=== PATIENT | male | born 1985 | race Caucasian/White ===

== ENCOUNTER 2016-04-24 12:02 | Inpatient (IN) | payer OTHER ==
[2016-04-24] VITALS (13 sets, daily range): BP systolic 95–131; BP diastolic 53–68; PULSE 71–97; RESP 19–35; TEMP 98–98.3; O2SAT 88–98
[~2016-04-24] VITALS: Ht 180.3 cm; Wt 186.4 kg
[~2016-04-24 12:02] MED LIST: ADVAI250I INH; ALBU0.086 INH; ALLO300T2 PO; ALPR.5 PO; DUONI INH; ERGO2000 PO; FENO1TAB76 PO; FLON0.053; FURO1TAB93 PO; HYDRA25 PO; IMOD2TAB PO; LEVO.05 PO; LIPI10TA PO; METO50TA PO; MONT10TA2 PO; NYSTT TOP; POLY17S PO; POTA10TA2 PO; PRED20 PO; RIVA20 PO; TIOT18I INH
[2016-04-24] MEDS ORDERED: SODIUM CHLORIDE 0.9% FLUSH 5 ML FLUSH IVF PRN (12:15)
[2016-04-24 12:24] LABS: BLOOD GAS BASE EXCESS 13.9 mmol/L (-2-2); BLOOD GAS HCO3 39 mmol/L (22-26); BLOOD GAS METHEMOGLOBIN 2.1 % (0-2); BLOOD GAS O2 HGB SATURATION 84 % (90-100); BLOOD GAS OXYGEN CONTENT 15.3 Vol % (12.0-20.0); BLOOD GAS PCO2 61 mmHg (38-42); BLOOD GAS PO2 55 mmHG (61-120); BLOOD GAS TOTAL HGB 12.9 G/DL (12.0-16.0); CRITICAL VALUE YES; LITER FLOW 6 L/M; TEMP CORR TO 98.6
[2016-04-24 12:25] LABS: DRAW SITE LT RADIAL; FIO2 50 %; NUMBER OF ARTERIAL PUNCTURES 1; OXYGEN DEVICE MASK; STAT YES; ULNAR PULSE PRESENT
[2016-04-24 12:48] LABS: AUTOMATED NEUTROPHIL # 9.1 TH/MM3 (1.8-7.7); BASOPHIL # 0.1 TH/MM3 (0-0.2); BASOPHIL % 0.8 % (0.0-2.0); EOSINOPHIL # 0.1 TH/MM3 (0-0.4); HEMATOCRIT 40.4 % (39.0-51.0); LYMPH % 16.2 % (9.0-44.0); MEAN CELL VOLUME 76.2 FL (80.0-100.0); MEAN CORPUSCULAR HEMOGLOBIN 23.6 PG (27.0-34.0); MONO % 6.9 % (0.0-8.0); NEUT % 75.1 % (16.0-70.0); PLATELET COUNT 355 TH/MM3 (150-450); RED BLOOD COUNT 5.31 MIL/MM3 (4.50-5.90); RED CELL DISTRIBUTION WIDTH 19.2 % (11.6-17.2); WHITE BLOOD COUNT 12.1 TH/MM3 (4.0-11.0)
[2016-04-24 12:49] LABS: HEMO FLAGS AUTO DIFF
[2016-04-24 12:59] LABS: APTT (PATIENT) 30.3 SEC (22.6-28.8); INTERNATIONAL NORMALIZED RATIO 1.4 RATIO; PROTHROMBIN TIME - PATIENT 14.2 SEC (9.8-11.4)
--- NOTE | 2016-04-24 13:00 | PD ---
HPI Chief Complaint: Respiratory Symptoms Time Seen by Provider: 12:10 Travel History International Travel<30 days: No Contact w/Intl Traveler<30days: No Traveled to known affect area: No History of Present Illness HPI 31yo M with PMH of chronic respiratory failure s/p tracheostomy 4 years ago, h/ o afib/PE on xarelto, CHF (echo 06/12 EF 40-45%), HTN, in [facility] presents to the ED with low saturation at the rehab center. As per [facility], pt was cyanotic and the paper work stated that he was saturating at 82% on RA and improved after trach collar. Pt uses 6 liters normally. When pt was placed on 50% trach collar, he was saturating at 95%. Pt also has been treated for PNA at the rehab center. Denies any fever, chest pain, n/v, abdominal pain, weakness, numbness. PFSH Past Medical History Hx Anticoagulant Therapy: Yes Asthma: No Atrial Fibrillation: Yes Anxiety: Yes Heart Rhythm Problems: Yes (a fib) Cancer: No Cardiovascular Problems: Yes High Cholesterol: Yes Chest Pain: Yes Congestive Heart Failure: Yes COPD: No Diabetes: No Diminished Hearing: No Endocrine: No Genitourinary: No Hypertension: Yes Immune Disorder: No Musculoskeletal: No Neurologic: No Psychiatric: No Reproductive: No Respiratory: Yes Immunizations Current: Yes Sleep Apnea: Yes Tetanus Vaccination: > 5 Years Influenza Vaccination: No ?: Not Past Surgical History Tonsillectomy: Yes Other Surgery: Yes (VOCAL CORDS SURGERY, TRACHEOSTOMY) Social History Alcohol Use: No (PT DENIES) Tobacco Use: No Substance Use: No (PT DENIES) Allergies-Medications (Allergen,Severity, Reaction): Coded Allergies: No Known Allergies (Unverified , 09/16/15) Reported Meds & Prescriptions Reported Meds & Active Scripts Active Xanax (Alprazolam) 0.5 Mg Tab 0.5 Mg PO Q6H PRN Metoprolol Tartrate 50 Mg Tab 50 Mg PO Q12 Advair Diskus 250/50 (Salmeterol Xinafoate/Fluticasone) 14 Puff Inhp 1 Puff INH Q12 Reported Klaus Antifungal (Miconazole Nitrate (Topical)) 2 % Cre 1 Applic TOP BID APPLY TO : ABDOMINAL & BACK FOLDS Levothyroxine 50 mcg (Levothyroxine Sodium) 50 Mcg Tab 50 Mcg PO DAILY Apresoline (Hydralazine HCl) 50 Mg Tab 75 Mg PO Q8HR HOLD IS SPB<105 OR DBP<60 Gnp Melatonin (Melatonin) 3 Mg Tab 6 Mg PO HS Mapap (Acetaminophen) 325 Mg Tab 650 Mg PO Q4H PRN NTE: 3,000 MG WITHIN 24 HRS Deltasone 5 mg Tab (Prednisone) 5 Mg Tab 5 Mg PO DAILY Resp: Albuterol/Ipratropium 2.5 Mg/0.5 Mg (Albuterol/Ipratropium) 1 Amp Nebu 1 Ampule NEB Q4HR NEB PRN Biaxin (Clarithromycin) 500 Mg Tab 500 Mg PO BID Ambien (Zolpidem Tartrate) 5 Mg Tab 5 Mg PO HS PRN Xarelto 20 Mg Tab (Rivaroxaban) 20 Mg Tab 20 Mg PO DAILY @ 1700 Loperamide Hcl (Loperamide HCl) 2 Mg Tab 4 Mg PO Q8 PRN Furosemide 40 Mg Tab 40 Mg PO BID Potassium Chloride Er (Potassium Chloride) 10 Meq Tab 10 Meq PO BID Singulair (Montelukast Sodium) 10 Mg Tab 10 Mg PO DAILY Lipitor 10 Mg Tab (Atorvastatin Calcium) 10 Mg Tab 10 Mg PO DAILY Tricor (Fenofibrate) 48 Mg Tab 48 Mg PO DAILY Allopurinol 300 Mg Tab 300 Mg PO DAILY Review of Systems Except as stated in HPI: all other systems reviewed are Neg Physical Exam Narrative GENERAL: 31yo M morbidly obese, in mild distress. SKIN: Warm and dry. HEAD: Atraumatic. Normocephalic. NECK: Trachea midline. No JVD. CARDIOVASCULAR: Regular rate and rhythm. No murmur appreciated. RESPIRATORY: + accessory muscle use. Clear to auscultation. Breath sounds equal bilaterally. GASTROINTESTINAL: Abdomen soft, non-tender, nondistended. MUSCULOSKELETAL: No obvious deformities. No clubbing. No cyanosis. No edema. NEUROLOGICAL: Awake and alert. No obvious cranial nerve deficits. Motor grossly within normal limits. Normal speech. PSYCHIATRIC: Appropriate mood and affect; insight and judgment normal. Data Data Last Documented VS Vital Signs Date Time Temp Pulse Resp B/P Pulse Ox O2 Delivery O2 Flow Rate FiO2 04/24/16 13:50 74 22 95/65 96 Trach Collar 6 04/24/16 12:28 50 04/24/16 12:10 98.3 Orders Complete Blood Count With Diff (04/24/16 12:10) Basic Metabolic Panel (Bmp) (04/24/16 12:10) Act Partial Throm Time (Ptt) (04/24/16 12:10) Prothrombin Time / Inr (Pt) (04/24/16 12:10) Troponin I (04/24/16 12:10) Blood Culture (04/24/16 12:10) Iv Access Insert/Monitor (04/24/16 12:10) Electrocardiogram (04/24/16 12:10) Ecg Monitoring (04/24/16 12:10) Oximetry (04/24/16 12:10) Oxygen Administration (04/24/16 12:10) Chest, Single Ap (04/24/16 12:10) Sodium Chloride 0.9% Flush (Ns Flush) (04/24/16 12:15) Arterial Blood Gas (Abg) (04/24/16 ) Lactic Acid Sepsis Protocol (04/24/16 13:31) Sodium Chlor 0.9% 1000 Ml Inj (Ns 1000 M (04/24/16 13:45) Sodium Chlor 0.9% 1000 Ml Inj (Ns 1000 M (04/24/16 13:45) Sodium Chlor 0.9% 1000 Ml Inj (Ns 1000 M (04/24/16 13:45) Vancomycin Inj (Vancomycin Inj) (04/24/16 13:45) Piperacil-Tazo 4.5 Gm Premix (Zosyn 4.5 (04/24/16 13:45) B-Type Natriuretic Peptide (04/24/16 14:04) Admit Order (Ed Use Only) (04/24/16 14:19) Labs Laboratory Tests Test 04/24/16 04/24/16 04/24/16 04/24/16 12:11 12:35 12:40 13:50 Blood Gas Puncture Site LT RADIAL Blood Gas Patient Temperature 98.6 Blood Gas HCO3 39 mmol/L Blood Gas Base Excess 13.9 mmol/L Blood Gas Oxygen Saturation 84 % Arterial Blood pH 7.42 Arterial Blood Partial 61 mmHg Pressure CO2 Arterial Blood Partial 55 mmHG Pressure O2 Arterial Blood Oxygen Content 15.3 Vol % Arterial Blood 2.0 % Carboxyhemoglobin Arterial Blood Methemoglobin 2.1 % Blood Gas Hemoglobin 12.9 G/DL Oxygen Delivery Device MASK Blood Gas Liter Flow 6 L/M Blood Gas Inspired Oxygen 50 % White Blood Count 12.1 TH/MM3 Red Blood Count 5.31 MIL/MM3 Hemoglobin 12.5 GM/DL Hematocrit 40.4 % Mean Corpuscular Volume 76.2 FL Mean Corpuscular Hemoglobin 23.6 PG Mean Corpuscular Hemoglobin 31.0 % Concent Red Cell Distribution Width 19.2 % Platelet Count 355 TH/MM3 Mean Platelet Volume 8.0 FL Neutrophils (%) (Auto) 75.1 % Lymphocytes (%) (Auto) 16.2 % Monocytes (%) (Auto) 6.9 % Eosinophils (%) (Auto) 1.0 % Basophils (%) (Auto) 0.8 % Neutrophils # (Auto) 9.1 TH/MM3 Lymphocytes # (Auto) 2.0 TH/MM3 Monocytes # (Auto) 0.8 TH/MM3 Eosinophils # (Auto) 0.1 TH/MM3 Basophils # (Auto) 0.1 TH/MM3 CBC Comment AUTO DIFF Differential Comment AUTO DIFF CONFIRMED Polychromasia 2.1 % Prothrombin Time 14.2 SEC Prothromb Time International 1.4 RATIO Ratio Activated Partial 30.3 SEC Thromboplast Time Sodium Level 135 MEQ/L Potassium Level 4.2 MEQ/L Chloride Level 95 MEQ/L Carbon Dioxide Level 37.4 MEQ/L Anion Gap 3 MEQ/L Blood Urea Nitrogen 21 MG/DL Creatinine 1.00 MG/DL Estimat Glomerular Filtration 87 ML/MIN Rate Random Glucose 86 MG/DL Calcium Level 8.9 MG/DL Total Creatine Kinase 77 U/L Troponin I LESS THAN 0.02 NG/ML B-Type Natriuretic Peptide 419 PG/ML Lactic Acid Level 1.1 mmol/L MDM Medical Decision Making Medical Screen Exam Complete: Yes Emergency Medical Condition: Yes Interpretation(s) Last Impressions Chest X-Ray 04/24/16 1210 Signed Impressions: Service Date/Time: Sunday, April 24, 2016 12:58 - CONCLUSION: Cardiomegaly with mild pulmonary congestion. No evidence of consolidating airspace disease. James Bonner MD Laboratory Tests Test 04/24/16 04/24/16 04/24/16 04/24/16 12:11 12:35 12:40 13:50 Blood Gas Puncture Site LT RADIAL Blood Gas Patient Temperature 98.6 Blood Gas HCO3 39 mmol/L (22-26) Blood Gas Base Excess 13.9 mmol/L (-2-2) Blood Gas Oxygen Saturation 84 % (90-100) Arterial Blood pH 7.42 (7.380-7.420) Arterial Blood Partial 61 mmHg (38-42) Pressure CO2 Arterial Blood Partial 55 mmHG Pressure O2 (61-120) Arterial Blood Oxygen Content 15.3 Vol % (12.0-20.0) Arterial Blood 2.0 % (0-4) Carboxyhemoglobin Arterial Blood Methemoglobin 2.1 % (0-2) Blood Gas Hemoglobin 12.9 G/DL (12.0-16.0) Oxygen Delivery Device MASK Blood Gas Liter Flow 6 L/M Blood Gas Inspired Oxygen 50 % White Blood Count 12.1 TH/MM3 (4.0-11.0) Red Blood Count 5.31 MIL/MM3 (4.50-5.90) Hemoglobin 12.5 GM/DL (13.0-17.0) Hematocrit 40.4 % (39.0-51.0) Mean Corpuscular Volume 76.2 FL (80.0-100.0) Mean Corpuscular Hemoglobin 23.6 PG (27.0-34.0) Mean Corpuscular Hemoglobin 31.0 % Concent (32.0-36.0) Red Cell Distribution Width 19.2 % (11.6-17.2) Platelet Count 355 TH/MM3 (150-450) Mean Platelet Volume 8.0 FL (7.0-11.0) Neutrophils (%) (Auto) 75.1 % (16.0-70.0) Lymphocytes (%) (Auto) 16.2 % (9.0-44.0) Monocytes (%) (Auto) 6.9 % (0.0-8.0) Eosinophils (%) (Auto) 1.0 % (0.0-4.0) Basophils (%) (Auto) 0.8 % (0.0-2.0) Neutrophils # (Auto) 9.1 TH/MM3 (1.8-7.7) Lymphocytes # (Auto) 2.0 TH/MM3 (1.0-4.8) Monocytes # (Auto) 0.8 TH/MM3 (0-0.9) Eosinophils # (Auto) 0.1 TH/MM3 (0-0.4) Basophils # (Auto) 0.1 TH/MM3 (0-0.2) CBC Comment AUTO DIFF Differential Comment AUTO DIFF CONFIRMED Polychromasia 2.1 % (0.0-1.9) Prothrombin Time 14.2 SEC (9.8-11.4) Prothromb Time International 1.4 RATIO Ratio Activated Partial 30.3 SEC Thromboplast Time (22.6-28.8) Sodium Level 135 MEQ/L (136-145) Potassium Level 4.2 MEQ/L (3.5-5.1) Chloride Level 95 MEQ/L (98-107) Carbon Dioxide Level 37.4 MEQ/L (21.0-32.0) Anion Gap 3 MEQ/L (5-15) Blood Urea Nitrogen 21 MG/DL (7-18) Creatinine 1.00 MG/DL (0.60-1.30) Estimat Glomerular Filtration 87 ML/MIN (>89) Rate Random Glucose 86 MG/DL (74-106) Calcium Level 8.9 MG/DL (8.5-10.1) Total Creatine Kinase 77 U/L (39-308) Troponin I LESS THAN 0.02 NG/ML (0.02-0.05) B-Type Natriuretic Peptide 419 PG/ML (0-100) Lactic Acid Level 1.1 mmol/L (0.4-2.0) EKG: NSR 73bpm. Normal axis. STD V2. TWI V2-V6 new from 08/2015 Differential Diagnosis PNA vs. Mucous plug vs. ACS vs. CHF exacerbation Narrative Course 31yo M with multiple medical problems stemming from his morbid obesity from [facility] here with sob and hypoxia. ABG showed PO2 of 55.3 on 50% trach collar and PCO2 of 60.8. Labs reviewed, mild leukocytosis at 12.1. Troponin negative. CXR showed cardiomegaly with mild pulmonary congestion. No evidence of consolidating airspace. Pt was initially tachypneic and had elevated WBC so empirically treated with 1 dose of vancomycin and zosyn. EKG showed nonspecific ischemia that is new compare to prior in 08/2015. Pt reevaluated at bedside and feels better. Pt to be admitted for hypoxic and hypercapnic respiratory failure. Pending Lactic acid 1.1 and BNP 419. Diagnosis Primary Impression: Respiratory failure Qualified Code: J96.01 - Acute respiratory failure with hypoxia Admitting Information Admitting Physician Requests: Admit HarveyAkosua DO Apr 24, 2016 13:00
[2016-04-24] MEDS ORDERED: AMBI5TAB PO (13:02)
[2016-04-24] MEDS ORDERED: BIAX500T PO (13:02)
[2016-04-24 13:04] LABS: ANION GAP 3 MEQ/L (5-15); BICARBONATE 37.4 MEQ/L (21.0-32.0); BLOOD UREA NITROGEN 21 MG/DL (7-18); CHLORIDE 95 MEQ/L (98-107); GLOMERULAR FILTRATION RATE 87 ML/MIN (>89); POTASSIUM 4.2 MEQ/L (3.5-5.1); SODIUM (NA) 135 MEQ/L (136-145)
[2016-04-24] MEDS ORDERED: PRED5 PO (13:10)
[2016-04-24] MEDS ORDERED: MAPA325T6 PO (13:10)
[2016-04-24] MEDS ORDERED: DUONI NEB (13:10)
[2016-04-24] MEDS ORDERED: GNP3TAB PO (13:15)
[2016-04-24] MEDS ORDERED: HYDR50TA15 PO (13:15)
[2016-04-24] MEDS ORDERED: LEVO50TA4 PO (13:20)
[2016-04-24 13:26] LABS: POLYCHROMASIA 2.1 % (0.0-1.9); SCAN/DIFF AUTO DIFF CONFIRMED
[2016-04-24] MEDS ORDERED: [UNRECOGNIZED DRUG - CODE] TOP (13:26)
--- NOTE | 2016-04-24 13:31 | RADRPT ---
EXAM DATE/TIME: 04/24/2016 12:58 [facility] COMPARISON: CHEST SINGLE AP, September 25, 2015, 3:11. INDICATIONS : Short of breath. MEDICAL HISTORY : 3 blood clots SURGICAL HISTORY : tracheostomy ENCOUNTER: Initial ACUITY: 1 day PAIN SCORE: 0/10 LOCATION: Bilateral chest FINDINGS: The heart is markedly enlarged. There is generalized interstitial vascular congestion. There is no ev idence of consolidating airspace disease. Tracheostomy tube is in place. CONCLUSION: Cardiomegaly with mild pulmonary congestion. No evidence of consolidating airspace disease. James Bonner MD on April 24, 2016 at 13:28 Board Certified Radiologist. This report was verified electronically.
[2016-04-24] MEDS ORDERED: PIPERACIL-TAZO 4.5 GM PREMIX 100 ML IV ONE (13:45)
[2016-04-24] MEDS ORDERED: VANCOMYCIN INJ 1,500 MG in SODIUM CHLORID 0.9% 500 ML INJ 500 ML IV ONE (13:45)
[2016-04-24] MEDS ORDERED: SODIUM CHLOR 0.9% 1000 ML INJ 1,000 ML IV ONE ×3 (13:45)
--- NOTE | 2016-04-24 14:34 | HHI.HP ---
HPI Service Family Medicine Primary Care Physician Unknown Admission Diagnosis Acute respiratory failure Diagnoses: Chief Complaint: Difficulty breathing International Travel<30 Days: No Contact w/Intl Traveler<30days: No Known Affected Area: No History of Present Illness Wilfrido Fortune is a 31 year old male with a PMH of chronic respiratory failure s/ p tracheostomy 4 years ago, morbid obesity with BMI 67.6, atrial fibrillation and pulmonary embolism on Xarelto, CHF last ECHO 09/18/2015 showing a grossly normal systolic function with no definitive EF as it was difficult to assess, ECHO on 05/2014 with EF of 40-45% with mildly dilated left atrium, and h/o HTN. He is in long-term rehab at [facility] and presents to the ED after having low oxygen saturation at the rehab center. Per EVAC report, the patient went to the nurses station stating he wanted to be sent to the hospital and stated "I feel weird." At that time he was noted to be pale, O2 sat at 82% on RA. He was placed back on 6L of oxygen via his trach mask and given a breathing treatment and his O2 sats improved to 95% however would not stay at an appropriate level. Patient was then sent to [facility] for further evaluation. Patient states he uses 6L of oxygen via trach normally. Patient has also been treated for pneumonia at the rehab center. He denies any fevers, chest pain, cough, abdominal pain, or N/V. He denies syncopal episodes and states he remembers all events that occurred today. (Brandon Canales MD R1) Review of Systems Constitutional: COMPLAINS OF: Chills, Change in appetite, DENIES: Fever Respiratory: COMPLAINS OF: Shortness of breath, DENIES: Cough Cardiovascular: DENIES: Chest pain, Palpitations Gastrointestinal: COMPLAINS OF: Nausea, DENIES: Constipation, Diarrhea, Vomiting Genitourinary: DENIES: Hematuria, Dysuria (Brandon Canales MD R1) Past Family Social History Past Medical History Chronic Respiratory Failure s/p Tracheostomy 4 years ago Morbid Obesity w/ BMI 67.6 Atrial fibrillation Pulmonary embolism 4 years ago Anxiety CHF (Echo 06/07/2014 w/ EF 40-45%; ECHO 08/2015 showing a grossly normal systolic function) HTN Hypothyroidism Past Surgical History Tonsillectomy Tracheostomy Reported Medications Reported Meds & Active Scripts Active Xanax (Alprazolam) 0.5 Mg Tab 0.5 Mg PO Q6H PRN Metoprolol Tartrate 50 Mg Tab 50 Mg PO Q12 Advair Diskus 250/50 (Salmeterol Xinafoate/Fluticasone) 14 Puff Inhp 1 Puff INH Q12 Reported Klaus Antifungal (Miconazole Nitrate (Topical)) 2 % Cre 1 Applic TOP BID APPLY TO : ABDOMINAL & BACK FOLDS Levothyroxine 50 mcg (Levothyroxine Sodium) 50 Mcg Tab 50 Mcg PO DAILY Apresoline (Hydralazine HCl) 50 Mg Tab 75 Mg PO Q8HR HOLD IS SPB<105 OR DBP<60 Gnp Melatonin (Melatonin) 3 Mg Tab 6 Mg PO HS Mapap (Acetaminophen) 325 Mg Tab 650 Mg PO Q4H PRN NTE: 3,000 MG WITHIN 24 HRS Deltasone 5 mg Tab (Prednisone) 5 Mg Tab 5 Mg PO DAILY Resp: Albuterol/Ipratropium 2.5 Mg/0.5 Mg (Albuterol/Ipratropium) 1 Amp Nebu 1 Ampule NEB Q4HR NEB PRN Biaxin (Clarithromycin) 500 Mg Tab 500 Mg PO BID Ambien (Zolpidem Tartrate) 5 Mg Tab 5 Mg PO HS PRN Xarelto 20 Mg Tab (Rivaroxaban) 20 Mg Tab 20 Mg PO DAILY @ 1700 Loperamide Hcl (Loperamide HCl) 2 Mg Tab 4 Mg PO Q8 PRN Furosemide 40 Mg Tab 40 Mg PO BID Potassium Chloride Er (Potassium Chloride) 10 Meq Tab 10 Meq PO BID Singulair (Montelukast Sodium) 10 Mg Tab 10 Mg PO DAILY Lipitor 10 Mg Tab (Atorvastatin Calcium) 10 Mg Tab 10 Mg PO DAILY Tricor (Fenofibrate) 48 Mg Tab 48 Mg PO DAILY Allopurinol 300 Mg Tab 300 Mg PO DAILY (Brandon Canales MD R1) Allergies: Coded Allergies: No Known Allergies (Unverified , 09/16/15) Family History No FM of DM or CAD Social History Denies smoking, etoh intake, or use of illicit drugs Patient has lived in an [facility] for the past 4 years Mother lives in [facility] (Brandon Canales MD R1) Physical Exam Vital Signs Vital Signs Date Time Temp Pulse Resp B/P Pulse Ox O2 Delivery O2 Flow Rate FiO2 1026/16 13:50 74 22 95/65 96 Trach Collar 6 04/24/16 12:50 72 28 104/64 95 Trach Collar 6 04/24/16 12:40 72 30 98 Trach Collar 6 04/24/16 12:28 95 Trach Collar 6.00 50 04/24/16 12:14 95 Trach Collar 6 04/24/16 12:10 98.3 77 30 131/60 93 Trach Collar 6 04/24/16 12:06 72 19 131/60 95 Physical Exam GENERAL: Lying in bed in some distress appears secondary to difficulty breathing NEURO: AOx3. Patient cannot finish sentences without getting short of breath. psychologist grossly intact. SKIN: Warm and dry. HEAD: Normocephalic. Atraumatic. EYES: PERRL. EOMI. No scleral icterus. No injection or drainage. ENT: No nasal drainage. NECK: Supple, trachea midline. No JVD. CARDIOVASCULAR: Regular rate and rhythm without murmurs, gallops, or rubs. Peripheral pulses 2+. Capillary refill < 2 seconds. RESPIRATORY: Breath sounds clear to auscultation and equal bilaterally, without wheezes, rales, or rhonchi. Increased work of breathing. GASTROINTESTINAL: Abdomen soft, non-tender, obese, normal BS. Unable to assess for organomegaly or masses. MUSCULOSKELETAL: No edema, cyanosis, or clubbing Laboratory Laboratory Tests Test 04/24/16 04/24/16 12:11 12:35 Blood Gas Puncture Site LT RADIAL Blood Gas Patient Temperature 98.6 Blood Gas HCO3 39 Blood Gas Base Excess 13.9 Blood Gas Oxygen Saturation 84 Arterial Blood pH 7.42 Arterial Blood Partial 61 Pressure CO2 Arterial Blood Partial 55 Pressure O2 Arterial Blood Oxygen Content 15.3 Arterial Blood 2.0 Carboxyhemoglobin Arterial Blood Methemoglobin 2.1 Blood Gas Hemoglobin 12.9 Oxygen Delivery Device MASK Blood Gas Liter Flow 6 Blood Gas Inspired Oxygen 50 White Blood Count 12.1 Red Blood Count 5.31 Hemoglobin 12.5 Hematocrit 40.4 Mean Corpuscular Volume 76.2 Mean Corpuscular Hemoglobin 23.6 Mean Corpuscular Hemoglobin 31.0 Concent Red Cell Distribution Width 19.2 Platelet Count 355 Mean Platelet Volume 8.0 Neutrophils (%) (Auto) 75.1 Lymphocytes (%) (Auto) 16.2 Monocytes (%) (Auto) 6.9 Eosinophils (%) (Auto) 1.0 Basophils (%) (Auto) 0.8 Neutrophils # (Auto) 9.1 Lymphocytes # (Auto) 2.0 Monocytes # (Auto) 0.8 Eosinophils # (Auto) 0.1 Basophils # (Auto) 0.1 CBC Comment AUTO DIFF Differential Comment AUTO DIFF CONFIRMED Polychromasia 2.1 Prothrombin Time 14.2 Prothromb Time International 1.4 Ratio Activated Partial 30.3 Thromboplast Time Sodium Level 135 Potassium Level 4.2 Chloride Level 95 Carbon Dioxide Level 37.4 Anion Gap 3 Blood Urea Nitrogen 21 Creatinine 1.00 Estimat Glomerular Filtration 87 Rate Random Glucose 86 Calcium Level 8.9 Troponin I LESS THAN 0.02 Date/Time Procedure Status Source Growth 04/24/16 12:35 Aerobic Blood Culture Received Blood Peripheral Pending 04/24/16 12:35 Anaerobic Blood Culture Received Blood Peripheral Pending (Brandon Canales MD R1) Result Diagram: 04/24/16 1235 04/24/16 1235 Assessment and Plan Assessment and Plan 31 year old male with a PMH of chronic respiratory failure s/p tracheostomy 4 years ago, morbid obesity with BMI 67.6, atrial fibrillation and pulmonary embolism on Xarelto, CHF, and h/o HTN in long-term rehab at [facility] presents to the ED after having low oxygen saturation at 82% on RA. He was placed back on 6L of oxygen via his trach mask and sent to [facility] for further evaluation. He will be admitted for suspected HCAP as well as T -wave inversions noted on EKG. Code Status Full code Discussed Condition With sdw Dr. Ko and Rosie Parr, MS4 wdw Dr. Garcia (Brandon Canales MD R1) Attending Attestation The patient has been seen and examined. The chart and all resident notes have been reviewed. I agree that inpatient care is appropriate and that a two midnight stay is expected for the reasons documented in the resident history and physical. I have discussed this with the resident and certify the resident s order for inpatient admission. (Bernice Garcia MD) Problem List: (1) HCAP (healthcare-associated pneumonia) Status: Acute Plan: Afebrile in ED Pulse wnls Visibly tachypneic, labored breathing despite 6L O2 via trach Leukocytosis of 12,100; patients baseline ~9,000 Lactic acid nml 1.1 Initial ABG showing mixed picture of respiratory acidosis and metabolic alkalosis CXR showing markedly enlarged heart, generalized interstitial vascular congestion, and no evidence of a consolidating airspace disease - Received Vanc 1.5gm IV and Zosyn 4.5gm IV in ED - Will continue with Vancomycin 2gm IV q12h and Zosyn 4.5gm IV q6h - Add Levaquin 750mg IV q24h - Repeat ABG - Sputum culture - Continue 6L O2 via trach - BiPaP if needed - Continue home symbicort and singulair (2) T wave inversion in EKG Status: Acute Plan: T-wave inversions seen in leads V2-V6 Prior EKG from a previous admission only with evidence of T-wave inversion in lead V2 Initial troponin <0.02 ACS r/o with serial EKGs, troponins, CK-MBs (3) CHF (congestive heart failure) Status: Chronic Plan: Last ECHO 09/18/2015 showing a grossly normal systolic function with no definitive EF as it was difficult to assess, ECHO on 05/2014 with EF of 40-45% with mildly dilated left atrium Will obtain ECHO while inpatient BNP on admission 419 Received Lasix 20 mg po in ED Will give an additional Lasix 20 mg po once Lasix 40mg po bid starting tomorrow AM KCl 10 mEq po bid (4) Atrial fibrillation Status: Chronic Plan: EKG in sinus rhythm RRR on exam Continue Xarelto 20 mg po daily (5) Tracheostomy present Status: Chronic Plan: Will consult pulmonology if needing additional care (6) HTN (hypertension) Status: Chronic Plan: 131/60 on admission, trended down to 95/65 Hold home BP medications Vitals q4h (7) Anemia Status: Acute Plan: Hgb 12.5 on admission Continue to monitor (8) Morbid obesity with BMI of 60.0-69.9, adult Status: Chronic Plan: Likely contributing to chronic respiratory issues (9) Hypothyroidism Status: Chronic Plan: Continue home Synthroid (10) Nutrition, metabolism, and development symptoms Status: Acute Plan: Fluids: none Electrolytes: Na 135, Cl 95, will monitor Nutrition: Heart healthy diet DVT PPx: patient is on xarelto 20 mg po daily sdw Dr. Ko and Rosie Parr, MS4 dw Dr. Garcia (Brandon Canales MD R1) Physician Certification 2 Midnight Certification Type: Admission for Inpatient Services Order for Inpatient Services The services are ordered in accordance with Medicare regulations or non- Medicare payer requirements, as applicable. In the case of services not specified as inpatient-only, they are appropriately provided as inpatient services in accordance with the 2-midnight benchmark. Estimated LOS (days): 2 days is the estimated time the patient will need to remain in the hospital, assuming treatment plan goals are met and no additional complications. Post-Hospital Plan: Fpc/SLIEM (SLIME) (Brandon Canales MD R1) Problem Qualifiers (1) CHF (congestive heart failure): Qualified Code: I50.9 - Acute on chronic congestive heart failure, unspecified congestive heart failure type (2) Atrial fibrillation: Qualified Code: I48.2 - Chronic atrial fibrillation (3) HTN (hypertension): Qualified Code: I10 - Essential hypertension (4) Anemia: Qualified Code: D64.9 - Anemia, unspecified type (5) Hypothyroidism: Qualified Code: E03.9 - Hypothyroidism, unspecified type Brandon Canales MD R1 Apr 24, 2016 14:34 Bernice Garcia MD Apr 26, 2016 12:00
[2016-04-24] MEDS ORDERED: ONDANSETRON HCL 4 MG/2 ML VIAL ONE (15:07)
[2016-04-24] MEDS ORDERED: ZOLPIDEM TARTRATE 5 MG TAB PO PRN (15:15)
[2016-04-24] MEDS ORDERED: NALOXONE HCL 0.4 MG/ML AMP IV PRN (15:15)
[2016-04-24] MEDS ORDERED: FUROSEMIDE 20 MG TAB PO ONE (15:30)
[2016-04-24] MEDS ORDERED: Vancomycin Consult Pharmacy 1 EA OTHER SCH (15:30)
[2016-04-24] MEDS ORDERED: ONDANSETRON HCL 4 MG/2 ML VIAL IV PUSH ONE (15:30)
[2016-04-24] MEDS: PIPERACIL-TAZO 4.5 GM PREMIX 100 ML IV SCH ×2 (16:29→22:44)
[2016-04-24 17:02] LABS: BLOOD GAS BASE EXCESS 9.5 mmol/L (-2-2); BLOOD GAS CARBOXYHEMOGLOBIN 1.6 % (0-4); BLOOD GAS HCO3 37 mmol/L (22-26); BLOOD GAS METHEMOGLOBIN 2.3 % (0-2); BLOOD GAS O2 HGB SATURATION 86 % (90-100); BLOOD GAS OXYGEN CONTENT 15.2 Vol % (12.0-20.0); BLOOD GAS PCO2 85 mmHg (38-42); BLOOD GAS PO2 70 mmHG (61-120); BLOOD GAS TOTAL HGB 12.6 G/DL (12.0-16.0); CRITICAL VALUE YES; DRAW SITE RT RADIAL; FIO2 50 %; LITER FLOW 6 L/M; OXYGEN DEVICE MASK; TEMP CORR TO 98.6
[2016-04-24 17:03] LABS: NUMBER OF ARTERIAL PUNCTURES 1; STAT NO; ULNAR PULSE PRESENT
--- NOTE | 2016-04-24 17:18 | HHI.FPPN ---
Subjective Subjective Patient seen and examined. Case reviewed and discussed Please refer to resident H&P for further details regarding HPI, ROS, PMH, SurgHx , FH and SocHx ROS reviewed and neg x 10 except as stated in HPI. In summary, patient is a 31yoM with a history of chronic respiratory failure s/ p tracheostomy presenting with hypoxia from his nursing facility. He is seen in the ED, with supplemental oxygen, sats improved. He denies chest pain, reports worsening productive cough and failed outpatient antibiotics which he was started on Friday at the nursing facility. [facility] Objective Objective Last Impressions Chest X-Ray 04/24/16 1210 Signed Impressions: Service Date/Time: Sunday, April 24, 2016 12:58 - CONCLUSION: Cardiomegaly with mild pulmonary congestion. No evidence of consolidating airspace disease. James Bonner MD Laboratory Tests - Abnormals Test 04/24/16 04/24/16 04/24/16 04/24/16 12:11 12:35 12:40 16:52 Blood Gas HCO3 39 mmol/L 37 mmol/L Blood Gas Base Excess 13.9 mmol/L 9.5 mmol/L Blood Gas Oxygen Saturation 84 % 86 % Arterial Blood Partial 61 mmHg 85 mmHg Pressure CO2 Arterial Blood Partial 55 mmHG Pressure O2 Arterial Blood Methemoglobin 2.1 % 2.3 % White Blood Count 12.1 TH/MM3 Hemoglobin 12.5 GM/DL Mean Corpuscular Volume 76.2 FL Mean Corpuscular Hemoglobin 23.6 PG Mean Corpuscular Hemoglobin 31.0 % Concent Red Cell Distribution Width 19.2 % Neutrophils (%) (Auto) 75.1 % Neutrophils # (Auto) 9.1 TH/MM3 Polychromasia 2.1 % Prothrombin Time 14.2 SEC Activated Partial 30.3 SEC Thromboplast Time Sodium Level 135 MEQ/L Chloride Level 95 MEQ/L Carbon Dioxide Level 37.4 MEQ/L Anion Gap 3 MEQ/L Blood Urea Nitrogen 21 MG/DL Estimat Glomerular Filtration 87 ML/MIN Rate Troponin I LESS THAN 0.02 NG/ML B-Type Natriuretic Peptide 419 PG/ML Arterial Blood pH 7.26 Vital Signs 04/24/16 04/24/16 04/24/16 04/24/16 12:06 12:10 12:14 12:28 Temp 98.3 Pulse 72 77 Resp 19 30 B/P 131/60 131/60 Pulse Ox 95 93 95 95 O2 Delivery Trach Collar Trach Collar Trach Collar O2 Flow Rate 6 6 6.00 FiO2 50 04/24/16 04/24/16 04/24/16 04/24/16 12:40 12:50 13:50 15:00 Pulse 72 72 74 71 Resp 30 28 22 22 B/P 104/64 95/65 108/53 Pulse Ox 98 95 96 98 O2 Delivery Trach Collar Trach Collar Trach Collar Trach Collar O2 Flow Rate 6 6 6 6 Physical exam GENERAL: Obese male resting in bed, on supplemental oxygen, NAD SKIN: Warm and dry. No rashes, mild chronic changes LE b/l HEAD: Normocephalic. AT EYES: No scleral icterus. No injection or drainage. ENT: OP clear. MM slightly dry. NECK: Supple, trachea midline. No JVD or lymphadenopathy. Tracheostomy midline. CARDIOVASCULAR: Regular rate and rhythm without audible murmurs, gallops, or rubs. Distant heart sounds. RESPIRATORY: Breath sounds equal bilaterally with scattered crackles, worse on the R. No accessory muscle use. GASTROINTESTINAL: Abdomen soft, non-tender, nondistended. Obese, normal active BS. MUSCULOSKELETAL: No cyanosis, or edema. Chronic changes as noted above. BACK: Nontender without obvious deformity. No CVA tenderness. NEURO Awake and alert. Normal speech, though slow to answer. MAEW. CN grossly intact. Assessment Assessment 31yoM admitted with: Acute on chronic respiratory failure Sepsis due to HCAP Hypoxia Leukocytosis Hx afib anticoagulated on Xarelto Chronic Respiratory Failure s/p Tracheostomy 4 years ago Morbid Obesity w/ BMI 67.6 Hx PE Anxiety CHF (Echo 06/07/2014 w/ EF 40-45%; ECHO 08/2015 showing a grossly normal systolic function) HTN Hypothyroidism PLAN PLAN Empiric antibiotic therapy for HCAP Breathing treatments Pulmonology consultation Blood cultures Sputum culture Supplemental oxygen as needed UA Repeat ekg, trend trop Lactic acid protocol Check legionella, flu, pneumococcal antigen Steroids Continue Xarelto PPI while on steroids Resume home meds as appropriate Patient seen and examined. Case reviewed and discussed Agree with plan of care as discussed with me and documented in the resident note. Bernice Garcia MD Apr 24, 2016 17:18
[2016-04-24] MEDS: LEVOFLOXACIN 750 MG PREMIX INJ 150 ML IV SCH (19:40)
[2016-04-24 20:16] LABS: BLOOD, URINE NEG (NEG); COMMENT (UR) CULT NOT INDICATED; CULTURE IF INDICATED CULT NOT INDICATED; GLUCOSE,URINE NEG (NEG); KETONE, URINE NEG (NEG); MUCUS URINE FEW /lpf (OCC); NITRITE,URINE NEG (NEG); PH, URINE 5.5 (5.0-8.5); SQUAMOUS EPITHELIAL CELL URINE <1 /hpf (0-5); URINE COLOR YELLOW (YELLW/STRAW)
[2016-04-24] MEDS ORDERED: CHLORHEXIDINE GLUCONATE 2 % 1 PACK (2 CLOTHS)(extra cloths) TOP PRN (20:30)
[2016-04-24 20:50] LABS: CREATINE KINASE 77 U/L (39-308)
[2016-04-24] MEDS ORDERED: MELATONIN 6 MG PO SCH (21:00)
[2016-04-24] MEDS: SODIUM CHLORIDE 0.9% FLUSH 5 ML FLUSH FLUSH SCH (21:00)
[2016-04-24] MEDS: FUROSEMIDE 40 MG TAB PO SCH (21:00)
[2016-04-24] MEDS ORDERED: POTASSIUM CHLORIDE 10 MEQ CONTROLLED RELEASE TAB PO SCH (21:00)
[2016-04-24] MEDS ORDERED: methylPREDNISolone SOD SUCC 40 MG/1 ML VIAL IV PUSH SCH (22:15)
[2016-04-24] MEDS: FUROSEMIDE 20 MG/2 ML VIAL IV PUSH SCH (22:15)
[2016-04-24 22:22] LABS: BLOOD GAS HCO3 37 mmol/L (22-26); BLOOD GAS METHEMOGLOBIN 1.1 % (0-2); BLOOD GAS O2 HGB SATURATION 92 % (90-100); BLOOD GAS OXYGEN CONTENT 17.1 Vol % (12.0-20.0); BLOOD GAS PCO2 108 mmHg (38-42); BLOOD GAS PO2 96 mmHg (61-120); BLOOD GAS TOTAL HGB 13.2 G/DL (12.0-16.0); CRITICAL VALUE YES; FIO2 100 %; OXYGEN DEVICE BIPAP; TEMP CORR TO 98.6; VENT SETTINGS IPAP18/EPAP8
[2016-04-24 22:23] LABS: DRAW SITE LT RADIAL; NUMBER OF ARTERIAL PUNCTURES 2; STAT NO; ULNAR PULSE PRESENT
--- NOTE | 2016-04-24 22:39 | PD.CONS ---
[facility] Service Critical Care Medicine Consult Requested By Dr. Garcia Reason for Consult Acute hypoxemic and hypercarbic respiratory failure Healthcare associated pneumonia Primary Care Physician Unknown History of Present Illness Wilfrido Fortune is a 31 year old male with past medical history of chronic respiratory failure s/p tracheostomy 4 years ago, super morbid obesity (BMI 68) , atrial fibrillation and pulmonary embolism on Xarelto, COPD, CHF and h/o HTN. Patient presented from [facility] with low oxygen saturation apparently his oxygen saturation was 82% on RA. He was placed back on 6L of oxygen via his trach mask and given a breathing treatment, initially improved however he started drifting back to low 80s again. Apparently patient had been getting treatment for pneumonia at the rehabilitation facility. In the ER chest x-ray showed bibasilar infiltrates and pulmonary edema. Patient was admitted to the [facility] service and was started on IV steroids IV vancomycin and Zosyn and Levaquin for healthcare associated pneumonia. ABG after admission was pH of 7.42 PCO2 of 61 and PO2 55. Repeat ABG at 5 PM showed pH of 7.26 PCO2 of 85 and PO2 of 70 and patient was started on BiPAP by the [facility]. ABG at 10:15 showed worsening CO2 retention with pH 7.16 PCO2 108 and PO2 of 98. At that time critical care medicine was consulted After receiving the consult, I immediately ordered placement on for full mechanical ventilatory support and starting sedation for ventilator synchrony. I evaluated the patient in ICU. After starting ACV, patient is more awake but there is a significant amount of air leak around his tracheostomy. Patient has a Shiley 6.0 Proximal XLT, but the pilot highway patrol balloon has been cut off. I have changed the mechanical ventilation settings from ACV to pressure control with inspiratory pressure of 25, which improved to tidal volume he is receiving. I have consulted general surgery for trach exchange in a.m. I have also increased the Solu-Medrol to 60 mg IV every 6 hours after 125 mg bolus. Additional 2 mg IV Bumex had been ordered. Scheduled and when necessary breathing treatment ordered Review of Systems ROS Limitations: Intubated, Altered Mental Status Past Family Social History Allergies: Coded Allergies: No Known Allergies (Unverified , 09/16/15) Past Medical History Chronic Respiratory Failure s/p Tracheostomy 4 years ago COPD/obesity hypoventilation syndrome Morbid Obesity BMI 67 History of pulmonary embolism 4 years ago Chronic atrial fibrillation Anxiety CHF (Echo 2013 EF 40-45%; ECHO 08/2015 showing a grossly normal systolic function) Hypertension Hypothyroidism Past Surgical History Tonsillectomy Tracheostomy Reported Medications Xanax (Alprazolam) 0.5 Mg Tab 0.5 Mg PO Q6H PRN Metoprolol Tartrate 50 Mg Tab 50 Mg PO Q12 Advair Diskus 250/50 (Salmeterol Xinafoate/Fluticasone) 14 Puff Inhp 1 Puff INH Q12 Klaus Antifungal (Miconazole Nitrate (Topical)) 2 % Cre 1 Applic TOP BID Levothyroxine 50 mcg (Levothyroxine Sodium) 50 Mcg Tab 50 Mcg PO DAILY Apresoline (Hydralazine HCl) 50 Mg Tab 75 Mg PO Q8HR Gnp Melatonin (Melatonin) 3 Mg Tab 6 Mg PO HS Mapap (Acetaminophen) 325 Mg Tab 650 Mg PO Q4H PRN Deltasone 5 mg Tab (Prednisone) 5 Mg Tab 5 Mg PO DAILY Resp: Albuterol/Ipratropium 2.5 Mg/0.5 Mg (Albuterol/Ipratropium) 1 Amp Nebu 1 Ampule NEB Q4HR NEB PRN Biaxin (Clarithromycin) 500 Mg Tab 500 Mg PO BID Ambien (Zolpidem Tartrate) 5 Mg Tab 5 Mg PO HS PRN Xarelto 20 Mg Tab (Rivaroxaban) 20 Mg Tab 20 Mg PO DAILY @ 1700 Loperamide Hcl (Loperamide HCl) 2 Mg Tab 4 Mg PO Q8 PRN Furosemide 40 Mg Tab 40 Mg PO BID Potassium Chloride Er (Potassium Chloride) 10 Meq Tab 10 Meq PO BID Singulair (Montelukast Sodium) 10 Mg Tab 10 Mg PO DAILY Lipitor 10 Mg Tab (Atorvastatin Calcium) 10 Mg Tab 10 Mg PO DAILY Tricor (Fenofibrate) 48 Mg Tab 48 Mg PO DAILY Allopurinol 300 Mg Tab 300 Mg PO DAILY Active Ordered Medications Reviewed Family History Noncontributory Social History No alcohol tobacco or illicit drugs, lives in [facility] since last 4 yrs Physical Exam Vital Signs Vital Signs Date Time Temp Pulse Resp B/P Pulse Ox O2 Delivery O2 Flow Rate FiO2 04/24/16 19:29 97 30 105/59 90 BiPAP 70 04/24/16 17:57 91 28 109/68 95 BiPAP 04/24/16 17:30 92 60 04/24/16 15:00 71 22 108/53 98 Trach Collar 6 04/24/16 13:50 74 22 95/65 96 Trach Collar 6 04/24/16 12:50 72 28 104/64 95 Trach Collar 6 04/24/16 12:40 72 30 98 Trach Collar 6 04/24/16 12:28 95 Trach Collar 6.00 50 04/24/16 12:14 95 Trach Collar 6 04/24/16 12:10 98.3 77 30 131/60 93 Trach Collar 6 04/24/16 12:06 72 19 131/60 95 Physical Exam GENERAL: Lying in bed in some distress appears secondary to difficulty breathin SKIN: Warm and dry. HEAD: Normocephalic. Atraumatic. EYES: PERRL. No scleral icterus. No injection or drainage. ENT: No nasal drainage. NECK: Shiley 6.0 Proximal XLT, but the pilot highway patrol balloon has been cut off. Significant air leak and in fact patient is able to speak while vented CARDIOVASCULAR: Regular rate and rhythm without murmurs, gallops, or rubs. RESPIRATORY: Breath sounds clear to auscultation and equal bilaterally, bilateral expiratory wheezing heard GASTROINTESTINAL: Abdomen soft, non-tender, obese, normal BS. NEURO: AOx3. Follows commands all 4 extremities Laboratory Laboratory Tests Test 04/24/16 04/24/16 04/24/16 04/24/16 12:11 12:35 12:40 13:50 Blood Gas Puncture Site LT RADIAL Blood Gas Patient Temperature 98.6 Blood Gas HCO3 39 Blood Gas Base Excess 13.9 Blood Gas Oxygen Saturation 84 Arterial Blood pH 7.42 Arterial Blood Partial 61 Pressure CO2 Arterial Blood Partial 55 Pressure O2 Arterial Blood Oxygen Content 15.3 Arterial Blood 2.0 Carboxyhemoglobin Arterial Blood Methemoglobin 2.1 Blood Gas Hemoglobin 12.9 Oxygen Delivery Device MASK Blood Gas Liter Flow 6 Blood Gas Inspired Oxygen 50 White Blood Count 12.1 Red Blood Count 5.31 Hemoglobin 12.5 Hematocrit 40.4 Mean Corpuscular Volume 76.2 Mean Corpuscular Hemoglobin 23.6 Mean Corpuscular Hemoglobin 31.0 Concent Red Cell Distribution Width 19.2 Platelet Count 355 Mean Platelet Volume 8.0 Neutrophils (%) (Auto) 75.1 Lymphocytes (%) (Auto) 16.2 Monocytes (%) (Auto) 6.9 Eosinophils (%) (Auto) 1.0 Basophils (%) (Auto) 0.8 Neutrophils # (Auto) 9.1 Lymphocytes # (Auto) 2.0 Monocytes # (Auto) 0.8 Eosinophils # (Auto) 0.1 Basophils # (Auto) 0.1 CBC Comment AUTO DIFF Differential Comment AUTO DIFF CONFIRMED Polychromasia 2.1 Prothrombin Time 14.2 Prothromb Time International 1.4 Ratio Activated Partial 30.3 Thromboplast Time Sodium Level 135 Potassium Level 4.2 Chloride Level 95 Carbon Dioxide Level 37.4 Anion Gap 3 Blood Urea Nitrogen 21 Creatinine 1.00 Estimat Glomerular Filtration 87 Rate Random Glucose 86 Calcium Level 8.9 Total Creatine Kinase 77 Troponin I LESS THAN 0.02 B-Type Natriuretic Peptide 419 Lactic Acid Level 1.1 Test 04/24/16 04/24/16 04/24/16 04/24/16 16:52 18:00 19:10 22:14 Blood Gas Puncture Site RT RADIAL LT RADIAL Blood Gas Patient Temperature 98.6 98.6 Blood Gas HCO3 37 37 Blood Gas Base Excess 9.5 8.0 Blood Gas Oxygen Saturation 86 92 Arterial Blood pH 7.26 7.16 Arterial Blood Partial 85 108 Pressure CO2 Arterial Blood Partial 70 96 Pressure O2 Arterial Blood Oxygen Content 15.2 17.1 Arterial Blood 1.6 1.0 Carboxyhemoglobin Arterial Blood Methemoglobin 2.3 1.1 Blood Gas Hemoglobin 12.6 13.2 Oxygen Delivery Device MASK BIPAP Blood Gas Liter Flow 6 Blood Gas Inspired Oxygen 50 100 Urine Color YELLOW Urine Turbidity CLEAR Urine pH 5.5 Urine Specific [place] 1.009 Urine Protein NEG Urine Glucose (UA) NEG Urine Ketones NEG Urine Occult Blood NEG Urine Nitrite NEG Urine Bilirubin NEG Urine Urobilinogen LESS THAN 2.0 Urine Leukocyte Esterase NEG Urine RBC LESS THAN 1 Urine WBC 1 Urine Squamous Epithelial <1 Cells Urine Mucus FEW Microscopic Urinalysis Comment CULT NOT INDICATED Troponin I LESS THAN 0.02 Blood Gas Ventilator Setting [id number] Date/Time Procedure Status Source Growth 04/24/16 12:35 Aerobic Blood Culture Received Blood Peripheral Pending 04/24/16 12:35 Anaerobic Blood Culture Received Blood Peripheral Pending Result Diagram: 04/24/16 1235 04/24/16 1235 Imaging CXR bibasilar infiltrates, pulm edema Septic Shock Reassessment Heart: Regular rate and rhythm Lungs: Course Skin: Warm Peripheral Pulses: Bounding Right Radial Bounding Left Radial Capillary Refill: Brisk Assessment and Plan Assessment and Plan ASSESSMENT Acute hypercapnic and hypoxemic respiratory failure Healthcare associated pneumonia Sepsis CHF exacerbation CO2 narcosis Tracheostomy pilot highway patrol balloon damage Chronic Respiratory Failure s/p Tracheostomy 4 years ago (Shiley 6.0 Proximal XLT) COPD/obesity hypoventilation syndrome Morbid Obesity BMI 67 History of pulmonary embolism 4 years ago Chronic atrial fibrillation Anxiety CHF (Echo 2013 EF 40-45%; ECHO 08/2015 showing a grossly normal systolic function) Hypertension Hypothyroidism 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 Keep RASS -2 -Sedation vacation starting 24 hours RESP: Acute hypercapnic and hypoxemic respiratory failure Healthcare associated pneumonia Tracheostomy pilot highway patrol balloon damage (Shiley 6.0 Proximal XLT) Chronic Respiratory Failure s/p Tracheostomy 4 years ago COPD/obesity hypoventilation syndrome History of pulmonary embolism 4 years ago -Failed BiPAP with significant CO2 retention. Placed on mechanical ventilation PC/AC rate 18, Insp pres 25, PEEP 7 Fio2 titrate to keep SaO2 >90% -Gen. surgery consulted for tracheostomy tube exchange -Healthcare associated pneumonia is being treated with IV vancomycin and Zosyn and Levaquin -Start DuoNeb every 4 hours and when necessary -Increase IV Solu-Medrol to 60 mg every 6 hours, after 125 mg IV 1 stat -Continue Xarelto for PE CV: CHF exacerbation Pulmonary edema Chronic atrial fibrillation -Currently on IV Lasix 40 mg every 12 -Give additional Bumex 2 mg 1 -IV to KVO GI: Super morbid obesity with BMI of 68 -Nothing by mouth. IV Protonix : -Monitor renal function closely. [place] catheter. ID: Healthcare associated pneumonia Sepsis -Continue IV vancomycin, Zosyn and Levaquin -Follow blood urine and sputum culture HEME: History of PE on chronic anticoagulation with Xarelto -Monitor CBC, CMP, coags -Xarelto for PE 4 yrs ago ENDO: -Electrolyte replacement protocol PROPH: -Bilateral lower extremity SCDs. Xarelto will provide DVT prophylaxis. IV Protonix for GI prophylaxis LINES: -Utilize peripheral IVs, central line if needed CC time 90 min Code Status Full Discussed Condition With FP residents, RT, RN Jaquan Zelaya MD Apr 24, 2016 22:39
[2016-04-24] MEDS: BUDESONIDE-FORMOTEROL 160/4.5 MCG INHALER INH SCH (22:43)
[2016-04-24] MEDS: MICONAZOLE NITRATE 2% CREAM 15 GM TOP SCH (22:43)
[2016-04-24] MEDS: PROPOFOL 1000 MG/100 ML INJ 100 ML IV SCH (22:44)
[2016-04-24] MEDS: fentaNYL DRIP 250 ML IV SCH (22:44)
[2016-04-24] MEDS ORDERED: BUMETANIDE INJ 1 MG/4 ML VIAL IV PUSH ONE (22:45)
[2016-04-24] MEDS ORDERED: methylPREDNISolone SOD SUCC 125 MG/2 ML VIAL IV PUSH ONE (22:45)
[2016-04-24 22:47] LABS: CREATINE KINASE 79 U/L (39-308)
[2016-04-24] MEDS: RESP: ALBUTEROL 2.5 MG/IPRATROPIUM 0.5 MG NEB (SCH) NEB (23:58)
[2016-04-25] VITALS (19 sets, daily range): BP systolic 99–139; BP diastolic 52–73; PULSE 62–94; RESP 18–25; TEMP 97.7–99; O2SAT 85–97
[2016-04-25] MEDS: methylPREDNISolone SOD SUCC 40 MG/1 ML VIAL IV PUSH SCH ×5 (00:25→23:12)
[2016-04-25] MEDS: VANCOMYCIN INJ 2,000 MG in SODIUM CHLORID 0.9% 500 ML INJ 500 ML IV SCH ×2 (00:25→11:56)
[2016-04-25] MEDS: POTASSIUM CHLOR 20 MEQ PREMIX 100 ML IV SCH ×2 (00:26→02:00)
[2016-04-25 00:27] LABS: ANION GAP 8 MEQ/L (5-15); BICARBONATE 33.7 MEQ/L (21.0-32.0); BLOOD UREA NITROGEN 23 MG/DL (7-18); CHLORIDE 97 MEQ/L (98-107); GLOMERULAR FILTRATION RATE 85 ML/MIN (>89); POTASSIUM 4.1 MEQ/L (3.5-5.1); SODIUM (NA) 139 MEQ/L (136-145)
[2016-04-25] MEDS: PROPOFOL 1000 MG/100 ML INJ 100 ML IV SCH ×9 (00:32→23:19)
[2016-04-25] MEDS: RESP: ALBUTEROL 2.5 MG/IPRATROPIUM 0.5 MG NEB (SCH) NEB ×6 (03:02→23:43)
[2016-04-25] MEDS: CHLORHEXIDINE GLUCONATE 2 % 1 PACK (2 CLOTHS)(taper/protocol) TOP SCH (03:42)
[2016-04-25 05:12] LABS: BLOOD GAS BASE EXCESS 9.2 mmol/L (-2-2); BLOOD GAS CARBOXYHEMOGLOBIN 1.3 % (0-4); BLOOD GAS HCO3 34 mmol/L (22-26); BLOOD GAS METHEMOGLOBIN 1.1 % (0-2); BLOOD GAS O2 HGB SATURATION 92 % (90-100); BLOOD GAS OXYGEN CONTENT 15.5 Vol % (12.0-20.0); BLOOD GAS PCO2 56 mmHg (38-42); BLOOD GAS PO2 73 mmHg (61-120); TEMP CORR TO 98.6
[2016-04-25 05:13] LABS: CRITICAL VALUE YES; DRAW SITE LT RADIAL; FIO2 100 %; NUMBER OF ARTERIAL PUNCTURES 1; OXYGEN DEVICE VENTILATOR; VENT SETTINGS PC/AC
[2016-04-25 05:14] LABS: STAT NO; ULNAR PULSE PRESENT
[2016-04-25] MEDS: PIPERACIL-TAZO 4.5 GM PREMIX 100 ML IV SCH ×4 (05:23→23:12)
[2016-04-25] MEDS: fentaNYL DRIP 250 ML IV SCH ×3 (05:23→17:20)
[2016-04-25] MEDS: LEVOTHYROXINE SODIUM 50 MCG TAB PO SCH (05:23)
[2016-04-25] MEDS: BUDESONIDE-FORMOTEROL 160/4.5 MCG INHALER INH SCH ×3 (09:00→19:40)
[2016-04-25] MEDS: ALLOPURINOL 300 MG TAB PO SCH (09:00)
[2016-04-25] MEDS: ATORVASTATIN 10 MG TAB PO SCH (09:00)
[2016-04-25] MEDS: MONTELUKAST SODIUM 10 MG TAB PO SCH (09:00)
[2016-04-25] MEDS ORDERED: predniSONE 5 MG TAB PO SCH (09:00)
[2016-04-25] MEDS: FENOFIBRATE 48 MG TAB PO SCH (09:00)
[2016-04-25] MEDS: RIVAROXABAN 20 MG TAB PO SCH (09:00)
[2016-04-25] MEDS: FUROSEMIDE 20 MG/2 ML VIAL IV PUSH SCH ×2 (10:24→17:20)
[2016-04-25] MEDS: SODIUM CHLORIDE 0.9% FLUSH 5 ML FLUSH FLUSH SCH ×2 (10:25→19:40)
[2016-04-25] MEDS: CHLORHEXIDINE 0.12% (ORAL KIT) 15 ML CUP MT SCH ×2 (10:26→19:41)
[2016-04-25] MEDS: MICONAZOLE NITRATE 2% CREAM 15 GM TOP SCH ×2 (11:59→19:40)
[2016-04-25 12:55] LABS: AUTOMATED NEUTROPHIL # 8.3 TH/MM3 (1.8-7.7); BASOPHIL % 0.5 % (0.0-2.0); HEMATOCRIT 36.1 % (39.0-51.0); LYMPH % 6.2 % (9.0-44.0); LYMPHOCYTE # 0.6 TH/MM3 (1.0-4.8); MEAN CELL VOLUME 75.4 FL (80.0-100.0); MEAN CORPUSCULAR HEMOGLOBIN 24.4 PG (27.0-34.0); MEAN CORPUSCULAR HGB CONC 32.3 % (32.0-36.0); MONO % 0.4 % (0.0-8.0); NEUT % 92.9 % (16.0-70.0); PLATELET COUNT 306 TH/MM3 (150-450); RED BLOOD COUNT 4.78 MIL/MM3 (4.50-5.90); RED CELL DISTRIBUTION WIDTH 19.1 % (11.6-17.2); WHITE BLOOD COUNT 8.9 TH/MM3 (4.0-11.0)
[2016-04-25 12:57] LABS: HEMO FLAGS AUTO DIFF
[2016-04-25 13:27] LABS: ANION GAP 8 MEQ/L (5-15); BICARBONATE 35.7 MEQ/L (21.0-32.0); BLOOD UREA NITROGEN 23 MG/DL (7-18); CHLORIDE 94 MEQ/L (98-107); GLOMERULAR FILTRATION RATE 90 ML/MIN (>89); POTASSIUM 4.1 MEQ/L (3.5-5.1); SODIUM (NA) 138 MEQ/L (136-145)
[2016-04-25 13:31] LABS: CREATINE KINASE 127 U/L (39-308)
[2016-04-25 13:45] LABS: CKMB 1.9 NG/ML (0.5-3.6)
--- NOTE | 2016-04-25 14:12 | EKG ---
Date Performed: 04/24/2016 Time Performed: 12:54:32 PTAGE: 31 years EKG: Sinus rhythm ST DEVIATION AND MODERATE T-WAVE ABNORMALITY, CONSIDER ANTEROLATERAL ISCHEMIA Compared to previous t racing, anterolateral T wave changes are new, consider ischemia. ABNORMAL ECG PREVIOUS TRACING : 09/16/2015 03.02 DOCTOR: Alen Perla Interpretating Date/Time 04/25/2016 14:11:44
--- NOTE | 2016-04-25 14:13 | EKG ---
Date Performed: 04/24/2016 Time Performed: 19:08:26 PTAGE: 31 years EKG: Sinus rhythm BORDERLINE RIGHT AXIS DEVIATION NONSPECIFIC T-WAVE ABNORMALITY Compared to previous tracing, previou sly seen T wave changes have improved. BORDERLINE ECG PREVIOUS TRACING : 04/24/2016 12.54 DOCTOR: Alen Perla Interpretating Date/Time 04/25/2016 14:12:12
--- NOTE | 2016-04-25 14:21 | HHI.FPPN ---
Subjective Remarks Critical care was consulted overnight due to patient developing worsening CO2 retention and respiratory acidosis. Patient was then placed on mechanical ventilation. Patients tracheostomy was found to have an air leak as the line pilot balloon is cut off. Patient was given 2mg of IV bumex and has since had 1300 mL of UOP. General surgery was also consulted per critical care for a trach exchange this AM. Patient is arousable this AM, responds appropriately to questions. He is able to signal to ask if he can have his restraints removed. ( Brandon Canales MD R1) Objective Vitals Vital Signs Date Time Temp Pulse Resp B/P Pulse Ox O2 Delivery O2 Flow Rate FiO2 04/25/16 13:03 89 100 04/25/16 12:00 78 04/25/16 12:00 100 04/25/16 12:00 98.9 78 18 115/58 87 04/25/16 10:51 85 100 04/25/16 10:00 77 04/25/16 08:00 73 04/25/16 08:00 98.6 78 20 114/57 90 04/25/16 08:00 100 04/25/16 07:53 90 100 04/25/16 06:00 74 04/25/16 04:31 87 100 04/25/16 04:00 98.8 74 25 118/63 86 04/25/16 04:00 74 04/25/16 04:00 100 04/25/16 02:00 68 04/25/16 00:00 100 04/25/16 00:00 65 04/25/16 00:00 97.7 65 23 99/61 97 04/24/16 23:58 97 100 04/24/16 22:26 96 100 04/24/16 21:00 98.0 92 35 114/63 88 04/24/16 20:10 92 80 04/24/16 20:10 96 15.00 100 04/24/16 19:29 97 30 105/59 90 BiPAP 70 04/24/16 17:57 91 28 109/68 95 BiPAP 04/24/16 17:30 92 60 04/24/16 15:00 71 22 108/53 98 Trach Collar 6 I/O 10/26/16 10/26/16 10/26/16 10/27/16 10/27/16 10/27/16 07:00 15:00 23:00 07:00 15:00 23:00 Intake Total 1100 ml Output Total 1300 ml Balance -200 ml Intake IV Total 1100 ml Output Urine Total 1300 ml (Brandon Canales MD R1) Result Diagram: 04/25/16 1247 04/25/16 1247 Objective Remarks GENERAL: Lying in bed in some distress appears secondary to difficulty breathing NEURO: AOx3. Patient cannot finish sentences without getting short of breath. 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 SKIN: Warm and dry. HEAD: Normocephalic. Atraumatic. EYES: PERRL. EOMI. No scleral icterus. No injection or drainage. ENT: No nasal drainage. NECK: Supple, trachea midline. No JVD. CARDIOVASCULAR: Regular rate and rhythm without murmurs, gallops, or rubs. Peripheral pulses 2+. Capillary refill < 2 seconds. RESPIRATORY: On mechanical ventilation. Bilateral expiratory wheezing in upper muhammad. GASTROINTESTINAL: Abdomen soft, non-tender, obese, normal BS. Unable to assess for organomegaly or masses. MUSCULOSKELETAL: No edema, cyanosis, or clubbing (Brandon Canales MD R1) A/P Assessment and Plan 31 year old male with a PMH of chronic respiratory failure s/p tracheostomy 4 years ago, morbid obesity with BMI 67.6, atrial fibrillation and pulmonary embolism on Xarelto, CHF, and h/o HTN in long-term rehab at [facility] presented to the ED after having low oxygen saturation at 82% on RA. He was placed back on 6L of oxygen via his trach mask and sent to [facility] for further evaluation. He is admitted due to suspected HCAP and inability to maintain adequate O2 saturation. (Brandon Canales MD R1) Attending Attestation Patient seen and examined. Case reviewed and discussed Agree with plan of care as discussed with me and documented in the resident note. (Bernice Garcia MD) Problem List: (1) On mechanically assisted ventilation Status: Acute Plan: Critical care consulted due to worsening CO2 retention and respiratory acidosis Patient placed on mechanical ventilation on 04/24 General surgery consulted for a trach exchange as patients trach was found to have a leak. planning for trach exchange possibly tomorrow AM once O2 sats improve on mechanical ventilation. Solumedrol 60 mg IV q6h (2) HCAP (healthcare-associated pneumonia) Status: Acute Plan: Afebrile, pulse wnls, leukocytosis resolved to 8.9 today despite steroids Repeat ABG this AM improved; CO2 56 with pH 7.40 CXR showing markedly enlarged heart, generalized interstitial vascular congestion, and no evidence of a consolidating airspace disease - Received Vanc 1.5gm IV and Zosyn 4.5gm IV in ED - Will continue with Vancomycin 2gm IV q12h, Zosyn 4.5gm IV q6h, Levaquin 750mg IV q24h - Sputum culture - Duonebs q4h (3) T wave inversion in EKG Status: Acute Plan: T-wave inversions seen in leads V2-V6 on initial EKG Prior EKG from a previous admission only with evidence of T-wave inversion in lead V2 Repeat EKG during this hospitalization with previously seen T-wave changes improved Troponin x 3 <0.02 (4) CHF (congestive heart failure) Status: Chronic Plan: Last ECHO 09/18/2015 showing a grossly normal systolic function with no definitive EF as it was difficult to assess, ECHO on 05/2014 with EF of 40-45% with mildly dilated left atrium Will obtain ECHO while inpatient BNP on admission 419, repeat BNP 151 Received Lasix 20 mg po in ED Bumex 2 mg IV x one given overnight Continue with Lasix 20 mg IV BID (5) Atrial fibrillation Status: Chronic Plan: EKG in sinus rhythm RRR on exam Continue Xarelto 20 mg po daily (6) Tracheostomy present Status: Chronic Plan: General surgery consulted for trach exchange given current trach with leak (7) HTN (hypertension) Status: Chronic Plan: BPs stable Hold home BP medications Vitals q4h (8) Anemia Status: Acute Plan: Hgb 12.5 on admission, trended to 11.7 Continue to monitor (9) Morbid obesity with BMI of 60.0-69.9, adult Status: Chronic Plan: Likely contributing to chronic respiratory issues (10) Hypothyroidism Status: Chronic Plan: Continue home Synthroid (11) Nutrition, metabolism, and development symptoms Status: Acute Plan: Fluids: none Electrolytes: Cl 94, otherwise wnls, will monitor Nutrition: Heart healthy diet DVT PPx: patient is on xarelto 20 mg po daily sdw Dr. Garcia, Dr. Jasmin Almanza, Dr. Ko, Rosie Parr, MS4 (Brandon Canales MD R1) Problem Qualifiers (1) CHF (congestive heart failure): Qualified Code: I50.9 - Acute on chronic congestive heart failure, unspecified congestive heart failure type (2) Atrial fibrillation: Qualified Code: I48.2 - Chronic atrial fibrillation (3) HTN (hypertension): Qualified Code: I10 - Essential hypertension (4) Anemia: Qualified Code: D64.9 - Anemia, unspecified type (5) Hypothyroidism: Qualified Code: E03.9 - Hypothyroidism, unspecified type Brandon Canales MD R1 Apr 25, 2016 14:21 Bernice Garcia MD Apr 26, 2016 12:04
[2016-04-25 14:30] LABS: SCAN/DIFF AUTO DIFF CONFIRMED
[2016-04-25] MEDS ORDERED: VANCOMYCIN INJ 1,500 MG in SODIUM CHLORID 0.9% 500 ML INJ 500 ML IV SCH (15:05)
--- NOTE | 2016-04-25 17:17 | HHI.CCPN ---
Subjective Remarks/Hospital Course 04/24: Wilfrido Fortune is a 31 year old male with past medical history of chronic respiratory failure s/p tracheostomy 4 years ago, super morbid obesity (BMI 68) , atrial fibrillation and pulmonary embolism on Xarelto, COPD, CHF and h/o HTN. Patient presented from [facility] with low oxygen saturation apparently his oxygen saturation was 82% on RA. He was placed back on 6L of oxygen via his trach mask and given a breathing treatment, initially improved however he started drifting back to low 80s again. Apparently patient had been getting treatment for pneumonia at the rehabilitation facility. In the ER chest x-ray showed bibasilar infiltrates and pulmonary edema. Patient was admitted to the [facility] and was started on IV steroids IV vancomycin and Zosyn and Levaquin for healthcare associated pneumonia. ABG after admission was pH of 7.42 PCO2 of 61 and PO2 55. Repeat ABG at 5 PM showed pH of 7.26 PCO2 of 85 and PO2 of 70 and patient was started on BiPAP by the [facility]. ABG at 10:15 showed worsening CO2 retention with pH 7.16 PCO2 108 and PO2 of 98. At that time critical care medicine was consulted After receiving the consult, Dr. Zelaya immediately ordered placement on for full mechanical ventilatory support and starting sedation for ventilator synchrony. Dr. Zelaya evaluated the patient in ICU. After starting ACV, patient was more awake but there was a significant amount of air leak around his tracheostomy. Patient has a Shiley 6.0 Proximal XLT, but the test pilot balloon had been cut off. Vent settings changed from ACV to pressure control with inspiratory pressure of 25, which improved the tidal volume he was receiving. General surgery consulted for trach exchange in a.m. Solu-Medrol increased to 60 mg IV every 6 hours after 125 mg bolus. Additional 2 mg IV Bumex had been ordered. Scheduled and when necessary breathing treatment ordered. 04/25: Patient remains on mechanical ventilation via tracheostomy. Discussed with Dr. Dannie arrieta from general surgery. He inflated air in the cuff using a Seldinger needle and then applied a hemostat with which cuff appeared to stay inflated and patient started volume improved. He plans to change out tracheostomy once patient is a little more stable in the next 24-48 hours in the OR. Objective - Vital Signs Date Time Temp Pulse Resp B/P Pulse Ox O2 Delivery O2 Flow Rate FiO2 04/25/16 16:01 91 100 04/25/16 16:00 83 04/25/16 12:00 98.9 18 115/58 04/24/16 20:10 15.00 04/24/16 19:29 BiPAP Result Diagram: 04/25/16 1247 04/25/16 1247 Other Results Laboratory Tests Test 04/24/16 04/25/16 22:14 05:02 Blood Gas Puncture Site LT RADIAL LT RADIAL Blood Gas Patient Temperature 98.6 98.6 Blood Gas HCO3 37 mmol/L 34 mmol/L (22-26) (22-26) Blood Gas Base Excess 8.0 mmol/L 9.2 mmol/L (-2-2) (-2-2) Blood Gas Oxygen Saturation 92 % (90-100) 92 % (90-100) Arterial Blood pH 7.16 7.40 (7.380-7.420) (7.380-7.420) Arterial Blood Partial 108 mmHg 56 mmHg (38-42) Pressure CO2 (38-42) Arterial Blood Partial 96 mmHg 73 mmHg Pressure O2 (61-120) (61-120) Arterial Blood Oxygen Content 17.1 Vol % 15.5 Vol % (12.0-20.0) (12.0-20.0) Arterial Blood 1.0 % (0-4) 1.3 % (0-4) Carboxyhemoglobin Arterial Blood Methemoglobin 1.1 % (0-2) 1.1 % (0-2) Blood Gas Hemoglobin 13.2 G/DL 12.0 G/DL (12.0-16.0) (12.0-16.0) Oxygen Delivery Device BIPAP VENTILATOR Blood Gas Ventilator Setting IPAP18/[id number] PC/AC Blood Gas Inspired Oxygen 100 % 100 % Imaging CXR bibasilar infiltrates, pulm edema Objective Remarks GENERAL: Lying in bed, on mech vent via trach. SKIN: Warm and dry. HEAD: Normocephalic. Atraumatic. EYES: PERRL. No scleral icterus. No injection or drainage. ENT: No nasal drainage. NECK: Shiley 6.0 Proximal XLT, but the test pilot balloon has been cut off. Significant air leak and in fact patient is able to speak while vented CARDIOVASCULAR: Regular rate and rhythm without murmurs, gallops, or rubs. RESPIRATORY: On mechanical ventilation via tracheostomy. Air entry decreased bilaterally at bases. Scattered rhonchi, no wheezing GASTROINTESTINAL: Abdomen soft, non-tender, obese, normal BS. NEURO: Sedated, on mechanical ventilation. 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 Keep RASS -2 -Sedation vacation once tracheostomy replaced by Surgery team in OR. RESP: Acute hypercapnic and hypoxemic respiratory failure Healthcare associated pneumonia Tracheostomy test pilot balloon damage (Shiley 6.0 Proximal XLT) Chronic Respiratory Failure s/p Tracheostomy 4 years ago COPD/obesity hypoventilation syndrome History of pulmonary embolism 4 years ago -Continue mechanical ventilation PC/AC rate 18, Insp pres 25, PEEP 7 Fio2 titrate to keep SaO2 >90% -Gen. surgery consulted for tracheostomy tube exchange. Discussed with Dr. Dannie arrieta. He plans to do the tracheostomy exchange in the OR in the next 24- 48 hours. In the meanwhile cuff was inflated using a syringe and needle and subsequently hemostat used to clamp tubing to retain air in the cuff. -Healthcare associated pneumonia is being treated with IV vancomycin and Zosyn and Levaquin -DuoNeb every 4 hours and when necessary -IV Solu-Medrol to 60 mg every 6 hours, after 125 mg IV 1 stat -Hold Xarelto in view of planned tracheostomy exchange. Use Lovenox for full anticoagulation starting 04/26 if patient not scheduled for tracheostomy exchange by general surgery. CV: CHF exacerbation Pulmonary edema Chronic atrial fibrillation -Currently on IV Lasix 40 mg every 12 -Give additional Bumex 2 mg 1 -IV to KVO GI: Super morbid obesity with BMI of 68 -Nothing by mouth. IV Protonix : -Monitor renal function closely. Milan catheter. ID: Healthcare associated pneumonia Sepsis -Continue IV vancomycin, Zosyn and Levaquin -Follow blood urine and sputum culture HEME: History of PE on chronic anticoagulation with Xarelto -Monitor CBC, CMP, coags -Xarelto for PE 4 yrs ago. Hold Xarelto currently. Use Lovenox starting 04/26 if tracheostomy exchange not scheduled by general surgery. ENDO: -Electrolyte replacement protocol PROPH: -Bilateral lower extremity SCDs. Xarelto will provide DVT prophylaxis. IV Protonix for GI prophylaxis LINES: -Utilize peripheral IVs, central line if needed Discussed with Dr. Dannie Arrieta. CC time 40 min Bo Land MD Apr 25, 2016 17:17
[2016-04-25] MEDS: LEVOFLOXACIN 750 MG PREMIX INJ 150 ML IV SCH (17:19)
--- NOTE | 2016-04-25 17:39 | EC ---
Study Study Date:04/25/2016 STUDY CONCLUSIONS SUMMARY - Procedure narrative: Transthoracic echocardiography. Image quality was very poor. Scanning was performed from the parasternal, apical, and subcostal acoustic windows. - Left ventricle: The cavity size was normal. Wall thickness was normal. Systolic function grossly appears to be normal. Ejection fraction cannot be adequately estimated. Images were inadequate for LV wall motion assessment. If LV function is below 40, please consider prescribing an ACEI or ARB or document rationale for non-use. PROCEDURE DATA STUDY STATUS: Elective. Procedure: Transthoracic echocardiography. Image quality was very poor. Scanning was performed from the parasternal, apical, and subcostal acoustic windows. Study completion: The patient tolerated the procedure well. Transthoracic echocardiography. M-mode, complete 2D, complete spectral Doppler, and color Doppler. Height: Height: 71in. Weight: Weight: 481lb. Body mass index: BMI: 67.2kg/m^2. Body surface area: BSA: 3.06m^2. Patient status: Inpatient. CARDIAC ANATOMY LEFT VENTRICLE: The cavity size was normal. Wall thickness was normal. Systolic function grossly appears to be normal. Ejection fraction cannot be adequately estimated. Images were inadequate for LV wall motion assessment. AORTIC VALVE: Trileaflet; normal thickness leaflets. Doppler: Transvalvular velocity was within the normal range. There was no stenosis. No regurgitation. Indexed valve area: 0.65cm^2/m^2 (VTI). Indexed valve area: 0.73cm^2/m^2 (Vmax). Mean gradient: 3mm Hg (S). AORTA: Aortic root: The aortic root was normal in size. MITRAL VALVE: Structurally normal valve. Doppler: Transvalvular velocity was within the normal range. There was no evidence for stenosis. No regurgitation. Peak gradient: 4mm Hg (D). LEFT ATRIUM: The atrium was normal in size. RIGHT VENTRICLE: Not well seen. The cavity size was probably normal. Wall thickness was normal. PULMONIC VALVE: Doppler: Transvalvular velocity was within the normal range. There was no evidence for stenosis. No regurgitation. TRICUSPID VALVE: Structurally normal valve. Doppler: Transvalvular velocity was within the normal range. No regurgitation. PULMONARY ARTERY: The main pulmonary artery was normal-sized. Systolic pressure was within the normal range. RIGHT ATRIUM: The atrium was normal in size. PERICARDIUM: There was no pericardial effusion. SYSTEMIC VEINS: Inferior vena cava: The vessel was normal in size. Patient weight: 481lb _Ejection fraction:_ 65-75% _Fractional shortening:_ 32% up to 5Kg 5-11.5Kg 11.6-22.9Kg 23-45Kg 45-57Kg Aortic Root 7-13 <17 13-22 17-27 17-27 LA diam 6-13 <23 24-38 33-47 37-40 RVID 10-17 7-15 7-15 7-18 8-17 LVIDd 12-22 <32 24-38 33-47 37-40 LVPW 2-4 3-6 5-7 6-8 7-8 IVS 2-4 3-6 5-7 6-8 7-8 BASIC MEASUREMENTS ADULT NORMAL Left ventricle LV internal dimension, ED, chordal *34.5 mm 43-52 level, PLAX LV internal dimension, ES, chordal 24.7 mm 23-38 level, PLAX Fractional shortening, chordal level, *28 % >29 PLAX LV posterior wall thickness, ED 12.1 mm IVS/LVPW ratio, ED 0.99 <1.3 Ventricular septum Septal thickness, ED 12 mm Aortic valve Leaflet separation 23 mm 15-26 Aorta Root diameter, ED 42 mm Right ventricle RV internal dimension, ED, PLAX *46.1 mm 19-38 BASIC MEASUREMENTS ADULT NORMAL Aortic valve Leaflet separation 23 mm 15-26 DOPPLER MEASUREMENTS ADULT NORMAL Aortic valve Peak velocity, S 116 cm/s Mean velocity, S 81.1 cm/s VTI, S 23.9 cm Mean gradient, S 3 mm Hg Valve area index, VTI 0.65 cm^2/m^2 Valve area index, Vmax 0.73 cm^2/m^2 Mitral valve Peak E-wave velocity 102 cm/s Peak A-wave velocity 52.8 cm/s Peak gradient, D 4 mm Hg Peak E/A ratio 1.9 Tricuspid valve Regurgitant peak velocity 276 cm/s Peak RV-RA gradient, S 30 mm Hg Systemic veins Estimated CVP 5 mm Hg Right ventricle RV pressure, S *35 mm Hg <30 Pulmonic valve Peak velocity, S 52.8 cm/s LEGEND: Mean values are shown as u=mean value. Asterisk (*) de la torre values outside specified normal range. Prepared and signed by Bin Baker [id number]
[2016-04-25] MEDS: ONDANSETRON HCL 4 MG/2 ML VIAL IV PUSH PRN (21:37)
[2016-04-25] MEDS ORDERED: PHARMACY ORDERED LAB XX ONE (23:45)
[2016-04-26] VITALS (19 sets, daily range): BP systolic 105–135; BP diastolic 52–72; PULSE 52–82; RESP 16–22; TEMP 97.8–98.9; O2SAT 90–97
[2016-04-26] MEDS: PROPOFOL 1000 MG/100 ML INJ 100 ML IV SCH ×12 (00:46→23:46)
[2016-04-26] MEDS: VANCOMYCIN INJ 2,000 MG in SODIUM CHLORID 0.9% 500 ML INJ 500 ML IV SCH ×3 (00:46→23:45)
[2016-04-26] MEDS: RESP: ALBUTEROL 2.5 MG/IPRATROPIUM 0.5 MG NEB (SCH) NEB ×6 (03:54→23:23)
[2016-04-26] MEDS: CHLORHEXIDINE GLUCONATE 2 % 1 PACK (2 CLOTHS)(taper/protocol) TOP SCH (04:00)
[2016-04-26] MEDS: LEVOTHYROXINE SODIUM 50 MCG TAB PO SCH (04:58)
[2016-04-26] MEDS: methylPREDNISolone SOD SUCC 40 MG/1 ML VIAL IV PUSH SCH ×4 (04:58→23:45)
[2016-04-26] MEDS: PIPERACIL-TAZO 4.5 GM PREMIX 100 ML IV SCH ×4 (04:58→22:34)
[2016-04-26] MEDS: fentaNYL DRIP 250 ML IV SCH ×2 (07:45→16:27)
[2016-04-26] MEDS: CHLORHEXIDINE 0.12% (ORAL KIT) 15 ML CUP MT SCH ×2 (07:46→20:03)
--- NOTE | 2016-04-26 07:50 | MB ---
cc: DOMO HARRIS M.D. DATE OF CONSULTATION: 04/25/2016 REASON FOR CONSULTATION Dysfunctional tracheostomy. HISTORY OF PRESENT ILLNESS Mr. Fortune is an unfortunate morbidly obese 31-year-old gentleman who came into the emergency department with respiratory distress. Apparently at some point the patient pulled the insufflation balloon off of his tracheostomy. He has a 6 extended tracheostomy tube in place. He was admitted to the medical ICU under the care of Dr. Zelaya who has been attempting to ventilate him overnight without a cuff on his tracheostomy. He requested surgical consultation for assistance in management of the tracheostomy tube. Apparently the patient has been in mild respiratory distress during his admission. Specifically, when I walk in the room today he was on 100% FIO2 with 7 of PEEP, satting at 84%. He was sedated on the ventilator. Apparently the patient has a longstanding extreme morbid obesity and respiratory insufficiency. He has had multiple hospitalizations for this. PAST MEDICAL HISTORY 1. Morbid obesity, BMI 67. 2. Respiratory insufficiency. 3. COPD with tracheostomy approximately 4 years ago. 4. History of pulmonary embolism. 5. History of atrial fibrillation. 6. History of CHF. PAST SURGICAL HISTORY Tracheostomy. MEDICATIONS The medication list is extensive. Please see the chart. ALLERGIES He has no known drug allergies. SOCIAL HISTORY He apparently does not drink or smoke. He lives in an assisted care living facility due to his extreme weight. FAMILY HISTORY Noncontributory. PHYSICAL EXAMINATION VITAL SIGNS: Temperature 98, pulse 80, blood pressure 115/58, O2 saturation 85% on 100% FIO2 pain. GENERAL: This is a super morbidly obese gentleman sitting in the medical ICU sedated on the ventilator with a large air leak. HEENT: Pupils are reactive to light. Oropharynx is clear and moist. He has a tracheostomy in place with just the tubing as the cuff is missing. NECK: There is no subcutaneous emphysema. LUNGS: Clear to auscultation bilaterally. HEART: S1, S2, no murmur. ABDOMEN: Super obese, soft, nontender. EXTREMITIES: No gross deformity x4. IMPRESSION 1. Dysfunctional tracheostomy. 2. Respiratory insufficiency. PLAN At this point the patient is too unstable from a pulmonary standpoint to attempt any manipulation whatsoever of his current tracheostomy. He is currently satting 85% percent on 100% FIO2 and I believe if we try to exchange his tracheostomy he is going to code. I have consulted with respiratory therapy and we have decided to see if we can reinflate his balloon on the current tracheostomy in order for them to get appropriate tidal volumes. Currently he is only getting tidal volumes around 100 with the cuff down. After evaluating the tracheostomy I believe that we can insufflate it through the remaining piece of tubing. I obtained a 20 cc syringe and a 23-gauge needle from the nursing staff. I put in 20 cc of air and clamped the tubing with a hemostat and the patient's air leak completely stopped. His tidal volumes immediately went up into the 400s. I contacted Dr. Land and we agreed the patient is too unstable for any sort of tracheostomy manipulation at this point. I have recommended that we continue to inflate the cuff on a p.r.n. basis using a 20 cc syringe and a 23-gauge needle and then clamping the tubing with a hemostat. I believe this is the safest method right now until he can be stabilized from a pulmonary standpoint. Once his ventilator settings come down and he is deemed appropriate for tracheostomy manipulation we can take him to the operating room and exchange his tracheostomy to a new one with a working cuff. I have asked Dr. Land to please let me know when the patient's ventilator settings are weaned down and he is stable for transport to the operating room for a tracheostomy exchange. In the interim I would recommend that we continue to inflate his cuff on a p.r.n. basis. Please call if I can be of further assistance. I will await to hear back from Dr. Land as to when the patient is stable enough for tracheostomy exchange. MD FRANCISCO Estes/LEO /7:19 AM 7:27 AM
[2016-04-26] MEDS ORDERED: MIDAZOLAM 100 MG/ML INJ 100 ML IV SCH (08:15)
[2016-04-26 08:17] LABS: AUTOMATED NEUTROPHIL # 13.3 TH/MM3 (1.8-7.7); BASOPHIL # 0.1 TH/MM3 (0-0.2); BASOPHIL % 0.4 % (0.0-2.0); HEMATOCRIT 38.3 % (39.0-51.0); LYMPH % 3.1 % (9.0-44.0); LYMPHOCYTE # 0.4 TH/MM3 (1.0-4.8); MEAN CELL VOLUME 74.6 FL (80.0-100.0); MEAN CORPUSCULAR HEMOGLOBIN 23.7 PG (27.0-34.0); MEAN CORPUSCULAR HGB CONC 31.8 % (32.0-36.0); MONO % 2.3 % (0.0-8.0); NEUT % 94.2 % (16.0-70.0); PLATELET COUNT 279 TH/MM3 (150-450); RED BLOOD COUNT 5.13 MIL/MM3 (4.50-5.90); RED CELL DISTRIBUTION WIDTH 19.6 % (11.6-17.2); WHITE BLOOD COUNT 14.1 TH/MM3 (4.0-11.0)
[2016-04-26 08:17] LABS: BACTERIA, URINE OCC /hpf; BLOOD, URINE TRACE (NEG); COMMENT (UR) CATH-CULTURE IND; CULTURE IF INDICATED CATH CULTURE IND; GLUCOSE,URINE NEG (NEG); KETONE, URINE NEG (NEG); NITRITE,URINE NEG (NEG); TRANSITIONAL EPI CELLS, URINE 1 /hpf; URINE COLOR YELLOW (YELLW/STRAW)
[2016-04-26 08:18] LABS: HEMO FLAGS AUTO DIFF
[2016-04-26 08:20] LABS: ALKALINE PHOSPHATASE 61 U/L (45-117); ALT (GPT) 16 U/L (12-78); ANION GAP 12 MEQ/L (5-15); AST (GOT) 37 U/L (15-37); BICARBONATE 30.9 MEQ/L (21.0-32.0); CHLORIDE 94 MEQ/L (98-107); GLOMERULAR FILTRATION RATE 88 ML/MIN (>89); POTASSIUM 4.2 MEQ/L (3.5-5.1); SODIUM (NA) 137 MEQ/L (136-145); TOTAL BILIRUBIN ADULT 0.5 MG/DL (0.2-1.0)
[2016-04-26 08:23] LABS: BLOOD UREA NITROGEN 24 MG/DL (7-18)
--- NOTE | 2016-04-26 08:49 | HHI.CCPN ---
Subjective Remarks/Hospital Course 04/24: Wilfrdio Fortune is a 31 year old male with past medical history of chronic respiratory failure s/p tracheostomy 4 years ago, super morbid obesity (BMI 68) , atrial fibrillation and pulmonary embolism on Xarelto, COPD, CHF and h/o HTN. Patient presented from [facility] with low oxygen saturation apparently his oxygen saturation was 82% on RA. He was placed back on 6L of oxygen via his trach mask and given a breathing treatment, initially improved however he started drifting back to low 80s again. Apparently patient had been getting treatment for pneumonia at the rehabilitation facility. In the ER chest x-ray showed bibasilar infiltrates and pulmonary edema. [facility] and was started on IV steroids IV vancomycin and Zosyn and Levaquin for healthcare associated pneumonia. ABG after admission was pH of 7.42 PCO2 of 61 and PO2 55. Repeat ABG at 5 PM showed pH of 7.26 PCO2 of 85 and PO2 of 70 and patient was [facility]. ABG at 10:15 showed worsening CO2 retention with pH 7.16 PCO2 108 and PO2 of 98. At that time critical care medicine was consulted After receiving the consult, Dr. Zelaya immediately ordered placement on for full mechanical ventilatory support and starting sedation for ventilator synchrony. Dr. Zelaya evaluated the patient in ICU. After starting ACV, patient was more awake but there was a significant amount of air leak around his tracheostomy. Patient has a Shiley 6.0 Proximal XLT, but the ferryboat pilot balloon had been cut off. Vent settings changed from ACV to pressure control with inspiratory pressure of 25, which improved the tidal volume he was receiving. General surgery consulted for trach exchange in a.m. Solu-Medrol increased to 60 mg IV every 6 hours after 125 mg bolus. Additional 2 mg IV Bumex had been ordered. Scheduled and when necessary breathing treatment ordered. 04/25: Patient remains on mechanical ventilation via tracheostomy. Discussed with Dr. Dannie arrieta from general surgery. He inflated air in the cuff using a Seldinger needle and then applied a hemostat with which cuff appeared to stay inflated and patient started volume improved. He plans to change out tracheostomy once patient is a little more stable in the next 24-48 hours in the OR. 04/26: Afebrile. Tracheostomy cuff remains inflated, with hemostat secured. Tidal volumes greater than 400 cc. Patient continues on fentanyl and propofol infusions, with a RASS score of 0. Patient complains of discomfort in bed, requesting larger more comfortable bed. FiO2 decreased to 80% this a.m., with close monitoring to be trended with O2 sat of 94% discussion with Dr. Arrieta this a.m.. The patient is still too unstable secondary to respiratory insufficiency to go to the OR today, will begin therapeutic anticoagulation today secondary to history of PE and other risk factors. Objective - Vital Signs Date Time Temp Pulse Resp B/P Pulse Ox O2 Delivery O2 Flow Rate FiO2 04/26/16 07:27 95 80 04/26/16 06:00 59 04/26/16 04:00 98.9 19 128/60 04/24/16 20:10 15.00 04/24/16 19:29 BiPAP Intake and Output 04/25/16 04/25/16 04/26/16 08:00 16:00 00:00 Intake Total 1100 ml 1447 ml 453 ml Output Total 1300 ml 800 ml 600 ml Balance -200 ml 647 ml -147 ml Result Diagram: 04/26/16 0710 04/25/16 1247 Other Results Laboratory Tests Test 04/24/16 04/24/16 04/24/16 04/24/16 12:11 12:35 12:40 13:50 Blood Gas Puncture Site LT RADIAL Blood Gas Patient Temperature 98.6 Blood Gas HCO3 39 mmol/L Blood Gas Base Excess 13.9 mmol/L Blood Gas Oxygen Saturation 84 % Arterial Blood pH 7.42 Arterial Blood Partial 61 mmHg Pressure CO2 Arterial Blood Partial 55 mmHG Pressure O2 Arterial Blood Oxygen Content 15.3 Vol % Arterial Blood 2.0 % Carboxyhemoglobin Arterial Blood Methemoglobin 2.1 % Blood Gas Hemoglobin 12.9 G/DL Oxygen Delivery Device MASK Blood Gas Liter Flow 6 L/M Blood Gas Inspired Oxygen 50 % White Blood Count 12.1 TH/MM3 Red Blood Count 5.31 MIL/MM3 Hemoglobin 12.5 GM/DL Hematocrit 40.4 % Mean Corpuscular Volume 76.2 FL Mean Corpuscular Hemoglobin 23.6 PG Mean Corpuscular Hemoglobin 31.0 % Concent Red Cell Distribution Width 19.2 % Platelet Count 355 TH/MM3 Mean Platelet Volume 8.0 FL Neutrophils (%) (Auto) 75.1 % Lymphocytes (%) (Auto) 16.2 % Monocytes (%) (Auto) 6.9 % Eosinophils (%) (Auto) 1.0 % Basophils (%) (Auto) 0.8 % Neutrophils # (Auto) 9.1 TH/MM3 Lymphocytes # (Auto) 2.0 TH/MM3 Monocytes # (Auto) 0.8 TH/MM3 Eosinophils # (Auto) 0.1 TH/MM3 Basophils # (Auto) 0.1 TH/MM3 CBC Comment AUTO DIFF Differential Comment AUTO DIFF CONFIRMED Polychromasia 2.1 % Prothrombin Time 14.2 SEC Prothromb Time International 1.4 RATIO Ratio Activated Partial 30.3 SEC Thromboplast Time Sodium Level 135 MEQ/L Potassium Level 4.2 MEQ/L Chloride Level 95 MEQ/L Carbon Dioxide Level 37.4 MEQ/L Anion Gap 3 MEQ/L Blood Urea Nitrogen 21 MG/DL Creatinine 1.00 MG/DL Estimat Glomerular Filtration 87 ML/MIN Rate Random Glucose 86 MG/DL Calcium Level 8.9 MG/DL Total Creatine Kinase 77 U/L Troponin I LESS THAN 0.02 NG/ML B-Type Natriuretic Peptide 419 PG/ML Lactic Acid Level 1.1 mmol/L Test 04/24/16 04/24/16 04/24/16 04/24/16 16:52 18:00 19:10 20:25 Blood Gas Puncture Site RT RADIAL Blood Gas Patient Temperature 98.6 Blood Gas HCO3 37 mmol/L Blood Gas Base Excess 9.5 mmol/L Blood Gas Oxygen Saturation 86 % Arterial Blood pH 7.26 Arterial Blood Partial 85 mmHg Pressure CO2 Arterial Blood Partial 70 mmHG Pressure O2 Arterial Blood Oxygen Content 15.2 Vol % Arterial Blood 1.6 % Carboxyhemoglobin Arterial Blood Methemoglobin 2.3 % Blood Gas Hemoglobin 12.6 G/DL Oxygen Delivery Device MASK Blood Gas Liter Flow 6 L/M Blood Gas Inspired Oxygen 50 % Urine Color YELLOW Urine Turbidity CLEAR Urine pH 5.5 Urine Specific Arena 1.009 Urine Protein NEG mg/dL Urine Glucose (UA) NEG mg/dL Urine Ketones NEG mg/dL Urine Occult Blood NEG Urine Nitrite NEG Urine Bilirubin NEG Urine Urobilinogen LESS THAN 2.0 MG/DL Urine Leukocyte Esterase NEG Urine RBC LESS THAN 1 /hpf Urine WBC 1 /hpf Urine Squamous Epithelial <1 /hpf Cells Urine Mucus FEW /lpf Microscopic Urinalysis Comment CULT NOT INDICATED Troponin I LESS THAN 0.02 NG/ML Nasal Screen MRSA (PCR) NEGATIVE Test 04/24/16 04/24/16 04/25/16 04/25/16 21:39 22:14 05:02 12:47 Total Creatine Kinase 79 U/L 127 U/L Sodium Level 139 MEQ/L 138 MEQ/L Potassium Level 4.1 MEQ/L 4.1 MEQ/L Chloride Level 97 MEQ/L 94 MEQ/L Carbon Dioxide Level 33.7 MEQ/L 35.7 MEQ/L Anion Gap 8 MEQ/L 8 MEQ/L Blood Urea Nitrogen 23 MG/DL 23 MG/DL Creatinine 1.02 MG/DL 0.97 MG/DL Estimat Glomerular Filtration 85 ML/MIN 90 ML/MIN Rate Random Glucose 132 MG/DL 123 MG/DL Calcium Level 8.6 MG/DL 8.1 MG/DL Troponin I LESS THAN 0.02 0.04 NG/ML NG/ML Vancomycin Level Trough 14.0 MCG/ML Blood Gas Puncture Site LT RADIAL LT RADIAL Blood Gas Patient Temperature 98.6 98.6 Blood Gas HCO3 37 mmol/L 34 mmol/L Blood Gas Base Excess 8.0 mmol/L 9.2 mmol/L Blood Gas Oxygen Saturation 92 % 92 % Arterial Blood pH 7.16 7.40 Arterial Blood Partial 108 mmHg 56 mmHg Pressure CO2 Arterial Blood Partial 96 mmHg 73 mmHg Pressure O2 Arterial Blood Oxygen Content 17.1 Vol % 15.5 Vol % Arterial Blood 1.0 % 1.3 % Carboxyhemoglobin Arterial Blood Methemoglobin 1.1 % 1.1 % Blood Gas Hemoglobin 13.2 G/DL 12.0 G/DL Oxygen Delivery Device BIPAP VENTILATOR Blood Gas Ventilator Setting IPAP18/[id number] PC/AC Blood Gas Inspired Oxygen 100 % 100 % White Blood Count 8.9 TH/MM3 Red Blood Count 4.78 MIL/MM3 Hemoglobin 11.7 GM/DL Hematocrit 36.1 % Mean Corpuscular Volume 75.4 FL Mean Corpuscular Hemoglobin 24.4 PG Mean Corpuscular Hemoglobin 32.3 % Concent Red Cell Distribution Width 19.1 % Platelet Count 306 TH/MM3 Mean Platelet Volume 8.0 FL Neutrophils (%) (Auto) 92.9 % Lymphocytes (%) (Auto) 6.2 % Monocytes (%) (Auto) 0.4 % Eosinophils (%) (Auto) 0.0 % Basophils (%) (Auto) 0.5 % Neutrophils # (Auto) 8.3 TH/MM3 Lymphocytes # (Auto) 0.6 TH/MM3 Monocytes # (Auto) 0.0 TH/MM3 Eosinophils # (Auto) 0.0 TH/MM3 Basophils # (Auto) 0.0 TH/MM3 CBC Comment AUTO DIFF Differential Comment AUTO DIFF CONFIRMED Creatine Kinase MB 1.9 NG/ML B-Type Natriuretic Peptide 151 PG/ML Test 04/26/16 04/26/16 04/26/16 00:00 06:55 07:10 Vancomycin Level Trough 16.7 MCG/ML Urine Color YELLOW Urine Turbidity CLOUDY Urine pH 6.0 Urine Specific Arena 1.041 Urine Protein 30 mg/dL Urine Glucose (UA) NEG mg/dL Urine Ketones NEG mg/dL Urine Occult Blood TRACE Urine Nitrite NEG Urine Bilirubin NEG Urine Urobilinogen LESS THAN 2.0 MG/DL Urine Leukocyte Esterase MOD Urine RBC 25 /hpf Urine WBC 8 /hpf Urine WBC Clumps RARE Urine Transitional Epithelial 1 /hpf Cells Urine Amorphous Sediment OCC Urine Bacteria OCC /hpf Microscopic Urinalysis Comment CATH-CULTURE IND White Blood Count 14.1 TH/MM3 Red Blood Count 5.13 MIL/MM3 Hemoglobin 12.2 GM/DL Hematocrit 38.3 % Mean Corpuscular Volume 74.6 FL Mean Corpuscular Hemoglobin 23.7 PG Mean Corpuscular Hemoglobin 31.8 % Concent Red Cell Distribution Width 19.6 % Platelet Count 279 TH/MM3 Mean Platelet Volume 8.2 FL Neutrophils (%) (Auto) 94.2 % Lymphocytes (%) (Auto) 3.1 % Monocytes (%) (Auto) 2.3 % Eosinophils (%) (Auto) 0.0 % Basophils (%) (Auto) 0.4 % Neutrophils # (Auto) 13.3 TH/MM3 Lymphocytes # (Auto) 0.4 TH/MM3 Monocytes # (Auto) 0.3 TH/MM3 Eosinophils # (Auto) 0.0 TH/MM3 Basophils # (Auto) 0.1 TH/MM3 CBC Comment AUTO DIFF Hematology Comments Laboratory Tests Test 04/24/16 04/25/16 22:14 05:02 Blood Gas Puncture Site LT RADIAL LT RADIAL Blood Gas Patient Temperature 98.6 98.6 Blood Gas HCO3 37 mmol/L 34 mmol/L (22-26) (22-26) Blood Gas Base Excess 8.0 mmol/L 9.2 mmol/L (-2-2) (-2-2) Blood Gas Oxygen Saturation 92 % (90-100) 92 % (90-100) Arterial Blood pH 7.16 7.40 (7.380-7.420) (7.380-7.420) Arterial Blood Partial 108 mmHg 56 mmHg (38-42) Pressure CO2 (38-42) Arterial Blood Partial 96 mmHg 73 mmHg Pressure O2 (61-120) (61-120) Arterial Blood Oxygen Content 17.1 Vol % 15.5 Vol % (12.0-20.0) (12.0-20.0) Arterial Blood 1.0 % (0-4) 1.3 % (0-4) Carboxyhemoglobin Arterial Blood Methemoglobin 1.1 % (0-2) 1.1 % (0-2) Blood Gas Hemoglobin 13.2 G/DL 12.0 G/DL (12.0-16.0) (12.0-16.0) Oxygen Delivery Device BIPAP VENTILATOR Blood Gas Ventilator Setting IPAP18/[id number] PC/AC Blood Gas Inspired Oxygen 100 % 100 % Imaging CXR bibasilar infiltrates, pulm edema Objective Remarks GENERAL: Lying in bed, on mech vent via trach, awake and alert complaints of discomfort on bed SKIN: Warm and dry. HEAD: Normocephalic. Atraumatic. EYES: PERRL. No scleral icterus. No injection or drainage. ENT: No nasal drainage. Oral mucosa moist NECK: Shiley 6.0 Proximal XLT, but the ferryboat pilot balloon has been cut off, secured with hemostat. Patient is able to audibly speak while vented. CARDIOVASCULAR: Regular rate and rhythm without murmurs, gallops, or rubs. RESPIRATORY: On mechanical ventilation via tracheostomy. Air entry decreased bilaterally at bases. No wheezing, diminished throughout bilaterally. GASTROINTESTINAL: Abdomen soft, non-tender, obese, normal BS. NEURO: Completely awake on mechanical ventilation, on fentanyl and propofol infusion. Urinary Catheter: Yes Assessment to: Continue Milan insert reason: ICU Pt Getting Diuretics Date of Insertion: Apr 24, 2016 A/P Assessment and Plan ASSESSMENT Acute hypercapnic and hypoxemic respiratory failure Healthcare associated pneumonia Sepsis CHF exacerbation CO2 narcosis Tracheostomy ferryboat pilot balloon damage Chronic Respiratory Failure s/p Tracheostomy 4 years ago (Shiley 6.0 Proximal XLT) COPD/obesity hypoventilation syndrome Morbid Obesity BMI 67 History of pulmonary embolism 4 years ago Chronic atrial fibrillation Anxiety CHF (Echo 2013 EF 40-45%; ECHO 08/2015 showing a grossly normal systolic function) Hypertension Hypothyroidism 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 Keep RASS -2 -Current RASS score 0, will add Versed infusion-patient is slightly anxious -Possible planned surgery for tracheostomy exchange for Friday, 04/29, if stable RESP: Acute hypercapnic and hypoxemic respiratory failure Healthcare associated pneumonia Tracheostomy ferryboat pilot balloon damage (Shiley 6.0 Proximal XLT) Chronic Respiratory Failure s/p Tracheostomy 4 years ago COPD/obesity hypoventilation syndrome History of pulmonary embolism 4 years ago Leukocytosis -Continue mechanical ventilation PC/AC rate 18, Insp pres 25, PEEP 7 Fio2 titrate to keep SaO2 >90%. Current FiO2 80% -Gen. surgery consulted for tracheostomy tube exchange. Discussed with Dr. Dannie arrieta. He plans to do the tracheostomy exchange in the OR in the next 24- 48 hours. In the meanwhile cuff was inflated using a syringe and needle and subsequently hemostat used to clamp tubing to retain air in the cuff. -Healthcare associated pneumonia is being treated with IV vancomycin and Zosyn and Levaquin -Leukocytosis WBC 14.1 from 8.9 today, we'll continue to monitor -DuoNeb every 4 hours schedule and when necessary -Begin Pulmicort BID (home med) -Continue IV Solu-Medrol to 60 mg every 6 hours -Continue to hold Xarelto in view of planned tracheostomy exchange. - Begin therapeutic Lovenox for full anticoagulation 100 mg/12 hr starting , since patient not scheduled for tracheostomy exchange by general surgery. CV: CHF exacerbation Pulmonary edema Chronic atrial fibrillation -Currently on IV Lasix 40 mg every 12 - A. fib rate controlled -IV to KVO GI: Super morbid obesity with BMI of 68 -Nothing by mouth. -IV Protonix -Consider placement of NG tube and begin tube feeds, once patient adequately sedated : -Monitor renal function closely. Milan catheter. ID: Healthcare associated pneumonia Sepsis -Continue IV vancomycin, Zosyn and Levaquin - Blood urine and sputum culture NGTD HEME: History of PE on chronic anticoagulation with Xarelto -Monitor CBC, CMP, coags -Poor venous access, repeat INR and place PICC line -Xarelto for PE 4 yrs ago. -Hold Xarelto. -Lovenox therapeutic starting 04/26 , will hold, when schedule for tracheostomy exchange in OR. ENDO: -Electrolyte replacement protocol PROPH: -Bilateral lower extremity SCDs. will provide DVT prophylaxis. IV Protonix for GI prophylaxis LINES: -Utilize peripheral IVs for access, -Planned PICC line Discussed this a.m. with Dr. Dannie Arrieta, patient still too unstable to return to the OR at this time. We'll continue to wean FiO2 and plan for general OR possibly Friday This patient remains critically ill with one or more organ systems which are or may become a threat to life. I have spent in excess of 53 minutes discontinuously in the care and management of this patient. This time is exclusive of procedures, and includes, but is not limited to, evaluation of the patient, review of the medical record, discussions with family, consultants, nursing staff, or respiratory therapy, and documentation in the medical record. Physician Juana Cisneros MD Apr 26, 2016 08:49
[2016-04-26] MEDS: BUDESONIDE-FORMOTEROL 160/4.5 MCG INHALER INH SCH (08:52)
[2016-04-26] MEDS: SODIUM CHLORIDE 0.9% FLUSH 5 ML FLUSH FLUSH SCH ×2 (08:52→20:03)
[2016-04-26] MEDS: ALLOPURINOL 300 MG TAB PO SCH (08:53)
[2016-04-26] MEDS: MONTELUKAST SODIUM 10 MG TAB PO SCH (08:53)
[2016-04-26] MEDS: ATORVASTATIN 10 MG TAB PO SCH (08:53)
[2016-04-26] MEDS: RIVAROXABAN 20 MG TAB PO SCH (08:53)
[2016-04-26] MEDS: FENOFIBRATE 48 MG TAB PO SCH (08:53)
[2016-04-26] MEDS: FUROSEMIDE 20 MG/2 ML VIAL IV PUSH SCH ×2 (08:53→17:04)
[2016-04-26] MEDS: MICONAZOLE NITRATE 2% CREAM 15 GM TOP SCH ×2 (08:54→20:03)
[2016-04-26] MEDS: LEVOTHYROXINE SODIUM 100 MCG VIAL IV PUSH SCH (09:00)
[2016-04-26] MEDS: MIDAZOLAM 100 MG/NS 100 ML DRIP Premix IV SCH ×2 (09:34→21:44)
[2016-04-26] MEDS: RESP: BUDESONIDE 0.5 MG/2 ML NEB NEB SCH ×2 (09:37→19:37)
[2016-04-26 09:54] LABS: BANDS 14 % (0-6); NEUTROPHIL # MANUAL DIFF 13.1 TH/MM3 (1.8-7.7); POLYS (SEG NEUTROPHILS) 79 % (16-70); WBC DIFF SAMPLE 100
[2016-04-26 09:55] LABS: PLATELET ESTIMATE SMEAR NORMAL (NORMAL); PLATELET MORPHOLOGY NORMAL (NORMAL); POLYCHROMASIA 2.3 % (0.0-1.9); SCAN/DIFF FINAL DIFF MANUAL; TARGET CELLS 1+ (NORMAL)
[2016-04-26 09:56] LABS: TOXIC GRANULATION 1+ (NORMAL)
--- NOTE | 2016-04-26 10:11 | HHI.FPPN ---
Subjective Remarks Patient remains on ventilator, currently saturating 95% on 80% FiO2 with PEEP of 7.0cm H2O, tolerating decrease of FiO2 from 100% to 80% well. Intake 3043ml , output 1850ml, balance of 1193ml. Patient remains NPO and states that he is hungry. (Allegra Ko MD R2) Objective Vitals Vital Signs Date Time Temp Pulse Resp B/P Pulse Ox O2 Delivery O2 Flow Rate FiO2 04/26/16 07:27 95 80 04/26/16 06:00 59 04/26/16 04:00 65 04/26/16 04:00 90 04/26/16 04:00 98.9 65 19 128/60 94 04/26/16 03:54 90 90 04/26/16 02:00 61 04/26/16 00:00 98.4 65 20 105/52 95 04/26/16 00:00 100 04/26/16 00:00 65 04/25/16 23:43 94 90 04/25/16 22:00 62 04/25/16 20:00 98.0 94 18 139/73 93 04/25/16 20:00 100 04/25/16 20:00 94 04/25/16 19:14 95 95 04/25/16 18:00 84 04/25/16 16:01 91 100 04/25/16 16:00 99.0 83 18 106/52 91 04/25/16 16:00 100 04/25/16 16:00 83 04/25/16 14:00 76 04/25/16 13:03 89 100 04/25/16 12:00 78 04/25/16 12:00 100 04/25/16 12:00 98.9 78 18 115/58 87 04/25/16 10:51 85 100 04/25/16 10:00 77 I/O 04/25/16 04/25/16 04/25/16 04/26/16 04/26/16 04/26/16 06:59 14:59 22:59 06:59 14:59 22:59 Intake Total 1100 ml 1447 ml 453 ml 1143 ml Output Total 1300 ml 800 ml 600 ml 450 ml Balance -200 ml 647 ml -147 ml 693 ml Intake IV Total 1100 ml 1447 ml 453 ml 1143 ml Output Urine Total 1300 ml 800 ml 600 ml 450 ml # Bowel Movements 0 0 0 (Allegra Ko MD R2) Result Diagram: 04/26/16 0710 04/26/16 0710 Imaging Last Impressions Chest X-Ray 04/24/16 1210 Signed Impressions: Service Date/Time: Sunday, April 24, 2016 12:58 - CONCLUSION: Cardiomegaly with mild pulmonary congestion. No evidence of consolidating airspace disease. James Bonner MD Objective Remarks GENERAL: Lying in bed, appears comfortable although attempting to move and talk SKIN: Warm and dry. No rashes or lesions. HEAD: Normocephalic. Atraumatic. EYES: PERRL. EOMI. No scleral icterus. No injection or drainage. ENT: No nasal drainage. Tracheotomy site is clean and dry without drainage. NECK: Supple, trachea midline. No JVD. CARDIOVASCULAR: Regular rate and rhythm without murmurs, gallops, or rubs. Peripheral pulses 2+. Capillary refill < 2 seconds. RESPIRATORY: On mechanical ventilation. Clear to auscultation bilaterally. GASTROINTESTINAL: Abdomen soft, non-tender, obese, normal BS. Unable to assess for organomegaly or masses. MUSCULOSKELETAL: No edema, cyanosis, or clubbing NEURO: mildly sedated, but attempting to move and talk (Allegra Ko MD R2) Date of Insertion: Apr 24, 2016 (Allegra Ko MD R2) A/P Assessment and Plan 31 year old male with a PMH of chronic respiratory failure s/p tracheostomy 4 years ago, morbid obesity with BMI 67.6, atrial fibrillation and pulmonary embolism on Xarelto, CHF, and h/o HTN in long-term rehab at [facility] presented to the ED after having low oxygen saturation at 82% on RA. He is admitted for shortness of breath likely secondary to a combination of HCAP, COPD exacerbation and CHF exacerbation. Critical care is on board. Discharge Planning Unclear timetable at this time. (Allegra Ko MD R2) Attending Attestation Patient seen and examined. Case reviewed and discussed Agree with plan of care as discussed with me and documented in the resident note. Patient sedated, but awakens. Denies pain. Appreciate CCM, FiO2 at 80%. Xarelto on hold. (Bernice Garcia MD) Problem List: (1) On mechanically assisted ventilation Status: Acute Plan: Critical care consulted due to worsening CO2 retention and respiratory acidosis Patient placed on mechanical ventilation on 04/24 General surgery consulted for a trach exchange as patients trach was found to have a leak. GS planning for trach exchange possibly Friday once O2 sats improve on mechanical ventilation. Continue Solumedrol 60 mg IV q6h Will require further sedation today for possible NG tube placement for nutrition per Critical Care (2) HCAP (healthcare-associated pneumonia) Status: Acute Plan: Afebrile, pulse wnls Leukocytosis 14.1 on steroids Repeat ABG on 04/26 showed improvement with CO2 56 with pH 7.40 CXR showing markedly enlarged heart, generalized interstitial vascular congestion, and no evidence of a consolidating airspace disease Received Vanc 1.5gm IV and Zosyn 4.5gm IV in ED 04/24 BCx NG1D - Continue with Vancomycin 2gm IV q12h, Zosyn 4.5gm IV q6h, Levaquin 750mg IV q24h (Started 04/24) - Sputum culture - Duonebs q4h (3) T wave inversion in EKG Status: Acute Plan: T-wave inversions seen in leads V2-V6 on initial EKG Prior EKG from a previous admission only with evidence of T-wave inversion in lead V2 Repeat EKG during this hospitalization with previously seen T-wave changes improved Troponin x 3 <0.02 (4) CHF (congestive heart failure) Status: Chronic Plan: Last ECHO 09/18/2015 showing a grossly normal systolic function with no definitive EF as it was difficult to assess, ECHO on 05/2014 with EF of 40-45% with mildly dilated left atrium 04/25 echo was limited due to poor image quality, EF could not be adequately estimated. Systolic function appears to be grossly normal. BNP on admission 419, repeat BNP 151 Received Lasix 20 mg po in ED Bumex 2 mg IV x one given 04/24 -Continue Lasix 20 mg IV BID (5) Atrial fibrillation Status: Chronic Plan: EKG in sinus rhythm RRR on exam Home dose of Xarelto 20 mg po daily held in anticipation of surgery. (6) Tracheostomy present Status: Chronic Plan: General surgery consulted for trach exchange given current trach with leak. Xarelto held in anticipation of surgery GS plans for tracheostomy exchange to a new one with a working cuff once ventilator settings are weaned down. * Continue to inflate cuff on PRN basis. (7) HTN (hypertension) Status: Chronic Plan: BPs stable Hold home BP medications Vitals q4h (8) Morbid obesity with BMI of 60.0-69.9, adult Status: Chronic Plan: Likely contributing to chronic respiratory issues (9) Hypothyroidism Status: Chronic Plan: Continue home Synthroid 25mcg IV daily (10) Nutrition, metabolism, and development symptoms Status: Acute Plan: Fluids: none Electrolytes: Cl 94, otherwise wnl, will monitor Nutrition: NG tube with tube feeds once patient is adequately sedated DVT PPx: Home dose of Xarelto held. Therapeutic Lovenox 100mg SQ Q12H initiated , will be held prior to surgery once patient is scheduled. jefferyw Dr. Canales and Rosie Parr, MS4 dw Dr. Garcia (Allegra Ko MD R2) Problem Qualifiers (1) CHF (congestive heart failure): Qualified Code: I50.9 - Acute on chronic congestive heart failure, unspecified congestive heart failure type (2) Atrial fibrillation: Qualified Code: I48.2 - Chronic atrial fibrillation (3) HTN (hypertension): Qualified Code: I10 - Essential hypertension (4) Hypothyroidism: Qualified Code: E03.9 - Hypothyroidism, unspecified type Allegra Ko MD R2 Apr 26, 2016 10:11 Bernice Garcia MD Apr 26, 2016 12:03
[2016-04-26 10:48] LABS: APTT (PATIENT) 25.4 SEC (22.6-28.8); INTERNATIONAL NORMALIZED RATIO 1.2 RATIO; PROTHROMBIN TIME - PATIENT 12.1 SEC (9.8-11.4)
[2016-04-26] MEDS: ENOXAPARIN SODIUM 150 MG/ML SYRINGE SQ SCH ×2 (12:33→20:02)
[2016-04-26] MEDS: LEVOFLOXACIN 750 MG PREMIX INJ 150 ML IV SCH (17:03)
[2016-04-27] VITALS (20 sets, daily range): BP systolic 113–134; BP diastolic 59–68; PULSE 56–88; RESP 22; TEMP 97–97.9; O2SAT 85–100
[2016-04-27] MEDS: fentaNYL DRIP 250 ML IV SCH ×2 (01:12→10:32)
[2016-04-27] MEDS: PROPOFOL 1000 MG/100 ML INJ 100 ML IV SCH ×11 (02:37→21:10)
[2016-04-27] MEDS: RESP: ALBUTEROL 2.5 MG/IPRATROPIUM 0.5 MG NEB (SCH) NEB ×6 (03:17→23:05)
[2016-04-27] MEDS: CHLORHEXIDINE GLUCONATE 2 % 1 PACK (2 CLOTHS)(taper/protocol) TOP SCH (04:00)
[2016-04-27] MEDS: PIPERACIL-TAZO 4.5 GM PREMIX 100 ML IV SCH ×4 (04:19→22:44)
--- NOTE | 2016-04-27 04:51 | RADRPT ---
EXAM DATE/TIME: 04/27/2016 03:51 [facility] COMPARISON: CHEST SINGLE AP, April 24, 2016, 12:58. INDICATIONS : Shortness of breath, possible pulmonary disease. MEDICAL HISTORY : Chronic obstructive pulmonary disease. SURGICAL HISTORY : tracheostomy ENCOUNTER: Subsequent ACUITY: 4 - 6 days PAIN SCORE: 0/10 LOCATION: Bilateral chest FINDINGS: There is a tracheostomy tube in place which appears to be in good position. No definite pneumothorax is seen. There is some bibasilar infiltrates. There is a right PICC line in place. There is no eviden ce of pneumothorax. The heart size appears to be diffusely enlarged. There is some pulmonary venous c ongestion. No significant change compared to the prior exam. CONCLUSION: 1. Tracheostomy tube in place. No pneumothorax. 2. Pulmonary venous congestion with some bibasilar infiltrates. Lázaro Frankel MD on April 27, 2016 at 4:48 Board Certified Radiologist. This report was verified electronically.
[2016-04-27 05:20] LABS: HEMATOCRIT 34.9 % (39.0-51.0); MEAN CELL VOLUME 74.7 FL (80.0-100.0); MEAN CORPUSCULAR HEMOGLOBIN 24.3 PG (27.0-34.0); MEAN CORPUSCULAR HGB CONC 32.5 % (32.0-36.0); PLATELET COUNT 285 TH/MM3 (150-450); RED BLOOD COUNT 4.68 MIL/MM3 (4.50-5.90); RED CELL DISTRIBUTION WIDTH 19.6 % (11.6-17.2); WHITE BLOOD COUNT 12.2 TH/MM3 (4.0-11.0)
[2016-04-27 05:24] LABS: REVIEW FLAG FINAL
[2016-04-27] MEDS: methylPREDNISolone SOD SUCC 40 MG/1 ML VIAL IV PUSH SCH ×4 (05:24→23:07)
[2016-04-27] MEDS: LEVOTHYROXINE SODIUM 100 MCG VIAL IV PUSH SCH (05:24)
[2016-04-27 05:57] LABS: BICARBONATE 35.5 MEQ/L (21.0-32.0); MAGNESIUM 1.6 MG/DL (1.5-2.5); POTASSIUM 3.3 MEQ/L (3.5-5.1)
[2016-04-27] MEDS: RESP: BUDESONIDE 0.5 MG/2 ML NEB NEB SCH ×2 (08:02→19:22)
[2016-04-27] MEDS ORDERED: ICU - POTASSIUM CHLORIDE/AQUEOUS SOLN 40 MEQ/100 ML IVPB IV PRN (08:15)
[2016-04-27] MEDS ORDERED: POTASSIUM CL 40 MEQ/30 ML LIQ UDC PO/TUBE PRN (08:15)
[2016-04-27] MEDS ORDERED: ICU - POTASSIUM CHLORIDE 10% LIQUID 40 MEQ/30 ML CUP PO PRN (08:15)
[2016-04-27] MEDS ORDERED: ICU - POTASSIUM PHOSPHATE MONOBASIC 500 MG TAB PO/TUBE PRN (08:15)
[2016-04-27] MEDS ORDERED: ICU - D/C ICU ELECTROLYTE ORDERS XX PRN (08:15)
[2016-04-27] MEDS ORDERED: ICU - POTASSIUM PHOSPHATE 30 MMOL/NS 250 ML IV PRN ×2 (08:15)
[2016-04-27] MEDS ORDERED: MAGNESIUM SULFATE INJ 4 GM in SODIUM CHLORIDE 0.9% INJ 92 ML IV PRN (08:15)
[2016-04-27] MEDS ORDERED: POTASSIUM PHOSPHATE MONOBASIC 500 MG TAB PO/TUBE PRN (08:15)
[2016-04-27] MEDS ORDERED: ICU - SODIUM PHOSPHATE 30 MMOL/NS 250 ML IV PRN ×2 (08:15)
[2016-04-27] MEDS ORDERED: ICU - MAGNESIUM SULFATE 2 GM/NS 100 ML IV PRN ×2 (08:15)
[2016-04-27] MEDS ORDERED: ICU - CALL ORDERING PHYSICIAN XX PRN (08:15)
[2016-04-27] MEDS ORDERED: MAGNESIUM OXIDE 400 MG TAB PO PRN (08:15)
[2016-04-27] MEDS ORDERED: SODIUM PHOSPHATE INJ 30 MMOL in SODIUM CHLOR 0.9% 250 ML INJ 240 ML IV PRN (08:15)
[2016-04-27] MEDS ORDERED: ICU - MAGNESIUM OXIDE 400 MG TAB PO PRN (08:15)
[2016-04-27] MEDS ORDERED: ICU - MAGNESIUM SULFATE 4 GM/NS 100 ML IV PRN ×2 (08:15)
[2016-04-27] MEDS: CHLORHEXIDINE 0.12% (ORAL KIT) 15 ML CUP MT SCH ×2 (08:28→20:07)
[2016-04-27] MEDS: ICU - POTASSIUM CHLORIDE/AQUEOUS SOLN 20 MEQ/100 ML IVPB IV PRN ×2 (08:29→09:09)
[2016-04-27] MEDS ORDERED: diphenhydrAMINE HCL 50 MG/ML VIAL IV PUSH PRN (08:30)
[2016-04-27] MEDS ORDERED: DOCUSATE SODIUM 50 MG/SENNA 8.6 MG TAB PO PRN (08:30)
[2016-04-27] MEDS: SODIUM CHLORIDE 0.9% FLUSH 5 ML FLUSH FLUSH SCH ×2 (08:37→20:06)
[2016-04-27] MEDS: FENOFIBRATE 48 MG TAB PO SCH (08:39)
[2016-04-27] MEDS: MONTELUKAST SODIUM 10 MG TAB PO SCH (08:39)
[2016-04-27] MEDS: ALLOPURINOL 300 MG TAB PO SCH (08:39)
[2016-04-27] MEDS: ATORVASTATIN 10 MG TAB PO SCH (08:39)
[2016-04-27] MEDS: MICONAZOLE NITRATE 2% CREAM 15 GM TOP SCH ×2 (08:40→20:29)
[2016-04-27] MEDS: MIDAZOLAM 100 MG/NS 100 ML DRIP Premix IV SCH ×2 (08:40→20:05)
[2016-04-27] MEDS: ENOXAPARIN SODIUM 150 MG/ML SYRINGE SQ SCH ×2 (08:40→20:05)
[2016-04-27] MEDS: FUROSEMIDE 20 MG/2 ML VIAL IV PUSH SCH ×2 (09:09→17:01)
[2016-04-27] MEDS: VANCOMYCIN INJ 2,000 MG in SODIUM CHLORID 0.9% 500 ML INJ 500 ML IV SCH ×2 (11:31→23:07)
--- NOTE | 2016-04-27 11:46 | HHI.FPPN ---
Subjective Remarks FiO2 increased to 100% due to O2 desaturations. Patient is sedated this AM. UOP of 2825mL over past 24 hours. No BMs. Patient appears slightly more edematous in lower extremities. (Brandon Canales MD R1) Objective Vitals Vital Signs Date Time Temp Pulse Resp B/P Pulse Ox O2 Delivery O2 Flow Rate FiO2 04/27/16 08:03 100 100 04/27/16 08:00 64 04/27/16 08:00 97.5 64 22 119/62 92 04/27/16 08:00 100 04/27/16 06:00 68 04/27/16 04:05 90 100 04/27/16 04:00 88 04/27/16 04:00 97.6 88 22 113/59 85 04/27/16 04:00 90 04/27/16 02:00 58 04/27/16 00:00 97.7 57 22 134/68 96 04/27/16 00:00 57 04/27/16 00:00 90 04/26/16 23:22 97 90 04/26/16 22:00 52 04/26/16 20:00 54 04/26/16 20:00 100 04/26/16 20:00 97.8 54 22 134/68 91 04/26/16 19:35 92 100 04/26/16 18:00 62 04/26/16 16:00 64 04/26/16 16:00 90 04/26/16 16:00 98.0 64 18 124/67 90 04/26/16 15:37 93 80 04/26/16 14:00 62 04/26/16 12:58 94 80 04/26/16 12:00 80 04/26/16 12:00 97.9 72 18 134/72 93 04/26/16 12:00 72 I/O 04/26/16 04/26/16 04/26/16 04/27/16 04/27/16 04/27/16 07:00 15:00 23:00 07:00 15:00 23:00 Intake Total 1143 ml 1145 ml 900 ml 1900 ml Output Total 450 ml 825 ml 1000 ml 1000 ml Balance 693 ml 320 ml -100 ml 900 ml Intake IV Total 1143 ml 1145 ml 900 ml 1900 ml Output Urine Total 450 ml 825 ml 1000 ml 1000 ml # Bowel Movements 0 (Brandon Canales MD R1) Result Diagram: 04/27/16 0500 04/27/16 0500 Objective Remarks GENERAL: Lying in bed, sedated SKIN: Warm and dry. No rashes or lesions. HEAD: Normocephalic. Atraumatic. ENT: No nasal drainage. Tracheotomy site is clean and dry without drainage. NECK: No JVD. CARDIOVASCULAR: Regular rate and rhythm without murmurs, gallops, or rubs. Peripheral pulses 2+. RESPIRATORY: On mechanical ventilation. Clear to auscultation bilaterally. GASTROINTESTINAL: Abdomen soft, non-tender, obese, normal BS. Unable to assess for organomegaly or masses. MUSCULOSKELETAL: Lower extremities appearing more edematous than prior examination. NEURO: Sedated. (Brandon Canales MD R1) Urinary Catheter: Yes Assessment to: Continue Milan insert reason: ICU Pt Getting Diuretics Date of Insertion: Apr 24, 2016 (Brandon Canales MD R1) A/P Assessment and Plan 31 year old male with a PMH of chronic respiratory failure s/p tracheostomy 4 years ago, morbid obesity with BMI 67.6, atrial fibrillation and pulmonary embolism on Xarelto, CHF, and h/o HTN in long-term rehab at [facility] presented to the ED after having low oxygen saturation at 82% on RA. He is admitted for shortness of breath likely secondary to a combination of HCAP, COPD exacerbation and CHF exacerbation. Critical care is on board. Discharge Planning Unclear timetable at this time. (Brandon Canales MD R1) Attending Attestation Patient seen and examined with the resident team. Case reviewed and discussed Agree with plan of care as discussed with me and documented in the resident note. (Bernice Garcia MD) Problem List: (1) On mechanically assisted ventilation Status: Acute Plan: Critical care consulted due to worsening CO2 retention and respiratory acidosis Patient placed on mechanical ventilation on 04/24 General surgery consulted for a trach exchange as patients trach was found to have a leak. GS planning for trach exchange possibly Friday once O2 sats improve on mechanical ventilation. Continue Solumedrol 60 mg IV q6h (2) HCAP (healthcare-associated pneumonia) Status: Acute Plan: Afebrile, pulse wnls Leukocytosis 12.2 on steroids Repeat ABG on 04/26 showed improvement with CO2 56 with pH 7.40 CXR showing markedly enlarged heart, generalized interstitial vascular congestion, and no evidence of a consolidating airspace disease Received Vanc 1.5gm IV and Zosyn 4.5gm IV in ED 04/24 BCx NG1D - Continue with Vancomycin 2gm IV q12h, Zosyn 4.5gm IV q6h, Levaquin 750mg IV q24h (Started 04/24) - Sputum culture re-requested, will follow - Duonebs q4h (3) T wave inversion in EKG Status: Acute Plan: T-wave inversions seen in leads V2-V6 on initial EKG Prior EKG from a previous admission only with evidence of T-wave inversion in lead V2 Repeat EKG during this hospitalization with previously seen T-wave changes improved Troponin x 3 <0.02 (4) CHF (congestive heart failure) Status: Chronic Plan: Last ECHO 09/18/2015 showing a grossly normal systolic function with no definitive EF as it was difficult to assess, ECHO on 05/2014 with EF of 40-45% with mildly dilated left atrium 04/25 echo was limited due to poor image quality, EF could not be adequately estimated. Systolic function appears to be grossly normal. BNP on admission 419, repeat BNP 151 Received Lasix 20 mg po in ED Bumex 2 mg IV x one given 04/24 Increase Lasix to 40 mg IV BID (5) Atrial fibrillation Status: Chronic Plan: Last EKG in sinus rhythm RRR on exam Home dose of Xarelto 20 mg po daily held in anticipation of surgery. (6) Tracheostomy present Status: Chronic Plan: General surgery consulted for trach exchange given current trach with leak. Xarelto held in anticipation of surgery GS plans for tracheostomy exchange to a new one with a working cuff once ventilator settings are weaned down. * Continue to inflate cuff on PRN basis. (7) HTN (hypertension) Status: Chronic Plan: BPs stable Hold home BP medications Vitals q4h (8) Morbid obesity with BMI of 60.0-69.9, adult Status: Chronic Plan: Likely contributing to chronic respiratory issues (9) Hypothyroidism Status: Chronic Plan: Continue home Synthroid 25mcg IV daily (10) Nutrition, metabolism, and development symptoms Status: Acute Plan: Fluids: none Electrolytes: Monitor and replete when necessary per protocol Nutrition: NG tube with tube feeds once patient is adequately sedated DVT PPx: Home dose of Xarelto held. Therapeutic Lovenox 100mg SQ Q12H initiated , will be held prior to surgery once patient is scheduled. sdw Dr. Garcia (Brandon Canales MD R1) Problem Qualifiers (1) CHF (congestive heart failure): Qualified Code: I50.9 - Acute on chronic congestive heart failure, unspecified congestive heart failure type (2) Atrial fibrillation: Qualified Code: I48.2 - Chronic atrial fibrillation (3) HTN (hypertension): Qualified Code: I10 - Essential hypertension (4) Hypothyroidism: Qualified Code: E03.9 - Hypothyroidism, unspecified type Brandon Canales MD R1 Apr 27, 2016 11:46 Bernice Garcia MD Apr 30, 2016 08:54
--- NOTE | 2016-04-27 16:35 | HHI.CCPN ---
Subjective Remarks/Hospital Course 04/24: Wilfrido Fortune is a 31 year old male with past medical history of chronic respiratory failure s/p tracheostomy 4 years ago, super morbid obesity (BMI 68) , atrial fibrillation and pulmonary embolism on Xarelto, COPD, CHF and h/o HTN. Patient presented from [facility] with low oxygen saturation apparently his oxygen saturation was 82% on RA. He was placed back on 6L of oxygen via his trach mask and given a breathing treatment, initially improved however he started drifting back to low 80s again. Apparently patient had been getting treatment for pneumonia at the rehabilitation facility. In the ER chest x-ray showed bibasilar infiltrates and pulmonary edema. Patient was admitted to the [facility] and was started on IV steroids IV vancomycin and Zosyn and Levaquin for healthcare associated pneumonia. ABG after admission was pH of 7.42 PCO2 of 61 and PO2 55. Repeat ABG at 5 PM showed pH of 7.26 PCO2 of 85 and PO2 of 70 and patient was started on BiPAP by the [facility]. ABG at 10:15 showed worsening CO2 retention with pH 7.16 PCO2 108 and PO2 of 98. At that time critical care medicine was consulted After receiving the consult, Dr. Zelaya immediately ordered placement on for full mechanical ventilatory support and starting sedation for ventilator synchrony. Dr. Zelaya evaluated the patient in ICU. After starting ACV, patient was more awake but there was a significant amount of air leak around his tracheostomy. Patient has a Shiley 6.0 Proximal XLT, but the military pilot balloon had been cut off. Vent settings changed from ACV to pressure control with inspiratory pressure of 25, which improved the tidal volume he was receiving. General surgery consulted for trach exchange in a.m. Solu-Medrol increased to 60 mg IV every 6 hours after 125 mg bolus. Additional 2 mg IV Bumex had been ordered. Scheduled and when necessary breathing treatment ordered. 04/25: Patient remains on mechanical ventilation via tracheostomy. Discussed with Dr. Dannie arrieta from general surgery. He inflated air in the cuff using a Seldinger needle and then applied a hemostat with which cuff appeared to stay inflated and patient started volume improved. He plans to change out tracheostomy once patient is a little more stable in the next 24-48 hours in the OR. 04/26: Afebrile. Tracheostomy cuff remains inflated, with hemostat secured. Tidal volumes greater than 400 cc. Patient continues on fentanyl and propofol infusions, with a RASS score of 0. Patient complains of discomfort in bed, requesting larger more comfortable bed. FiO2 decreased to 80% this a.m., with close monitoring to be trended with O2 sat of 94% discussion with Dr. Arrieta this a.m.. The patient is still too unstable secondary to respiratory insufficiency to go to the OR today, will begin therapeutic anticoagulation today secondary to history of PE and other risk factors. 04/27: Afebrile. Tmax 97.6. Overnight the patient required increasing O2 concentrations. Patient's trach cuff required reinflation 2 overnight, maintaining volumes 400-500 cc per breath. The patient's FiO2 currently is 1.0 , O2 sat 94-96%. The patient received PICC line yesterday secondary to difficult IV access and nutrition requirements, will begin PPN tonight. The patient remains optimally sedated for ventilator's synchrony, and minimization of agitation. Currently requirements include propofol Versed and fentanyl infusions. Objective - Vital Signs Date Time Temp Pulse Resp B/P Pulse Ox O2 Delivery O2 Flow Rate FiO2 04/27/16 15:29 94 100 04/27/16 14:00 62 04/27/16 12:00 97.9 22 131/65 04/24/16 20:10 15.00 04/24/16 19:29 BiPAP Intake and Output 04/26/16 04/26/16 04/27/16 08:00 16:00 00:00 Intake Total 1143 ml 1145 ml 900 ml Output Total 450 ml 825 ml 1000 ml Balance 693 ml 320 ml -100 ml Result Diagram: 04/27/16 0500 04/27/16 0500 Other Results Laboratory Tests Test 04/24/16 04/24/16 04/24/16 04/24/16 12:11 12:35 12:40 13:50 Blood Gas Puncture Site LT RADIAL Blood Gas Patient Temperature 98.6 Blood Gas HCO3 39 mmol/L Blood Gas Base Excess 13.9 mmol/L Blood Gas Oxygen Saturation 84 % Arterial Blood pH 7.42 Arterial Blood Partial 61 mmHg Pressure CO2 Arterial Blood Partial 55 mmHG Pressure O2 Arterial Blood Oxygen Content 15.3 Vol % Arterial Blood 2.0 % Carboxyhemoglobin Arterial Blood Methemoglobin 2.1 % Blood Gas Hemoglobin 12.9 G/DL Oxygen Delivery Device MASK Blood Gas Liter Flow 6 L/M Blood Gas Inspired Oxygen 50 % White Blood Count 12.1 TH/MM3 Red Blood Count 5.31 MIL/MM3 Hemoglobin 12.5 GM/DL Hematocrit 40.4 % Mean Corpuscular Volume 76.2 FL Mean Corpuscular Hemoglobin 23.6 PG Mean Corpuscular Hemoglobin 31.0 % Concent Red Cell Distribution Width 19.2 % Platelet Count 355 TH/MM3 Mean Platelet Volume 8.0 FL Neutrophils (%) (Auto) 75.1 % Lymphocytes (%) (Auto) 16.2 % Monocytes (%) (Auto) 6.9 % Eosinophils (%) (Auto) 1.0 % Basophils (%) (Auto) 0.8 % Neutrophils # (Auto) 9.1 TH/MM3 Lymphocytes # (Auto) 2.0 TH/MM3 Monocytes # (Auto) 0.8 TH/MM3 Eosinophils # (Auto) 0.1 TH/MM3 Basophils # (Auto) 0.1 TH/MM3 CBC Comment AUTO DIFF Differential Comment AUTO DIFF CONFIRMED Polychromasia 2.1 % Prothrombin Time 14.2 SEC Prothromb Time International 1.4 RATIO Ratio Activated Partial 30.3 SEC Thromboplast Time Sodium Level 135 MEQ/L Potassium Level 4.2 MEQ/L Chloride Level 95 MEQ/L Carbon Dioxide Level 37.4 MEQ/L Anion Gap 3 MEQ/L Blood Urea Nitrogen 21 MG/DL Creatinine 1.00 MG/DL Estimat Glomerular Filtration 87 ML/MIN Rate Random Glucose 86 MG/DL Calcium Level 8.9 MG/DL Total Creatine Kinase 77 U/L Troponin I LESS THAN 0.02 NG/ML B-Type Natriuretic Peptide 419 PG/ML Lactic Acid Level 1.1 mmol/L Test 04/24/16 04/24/16 04/24/16 04/24/16 16:52 18:00 19:10 20:25 Blood Gas Puncture Site RT RADIAL Blood Gas Patient Temperature 98.6 Blood Gas HCO3 37 mmol/L Blood Gas Base Excess 9.5 mmol/L Blood Gas Oxygen Saturation 86 % Arterial Blood pH 7.26 Arterial Blood Partial 85 mmHg Pressure CO2 Arterial Blood Partial 70 mmHG Pressure O2 Arterial Blood Oxygen Content 15.2 Vol % Arterial Blood 1.6 % Carboxyhemoglobin Arterial Blood Methemoglobin 2.3 % Blood Gas Hemoglobin 12.6 G/DL Oxygen Delivery Device MASK Blood Gas Liter Flow 6 L/M Blood Gas Inspired Oxygen 50 % Urine Color YELLOW Urine Turbidity CLEAR Urine pH 5.5 Urine Specific Ronan 1.009 Urine Protein NEG mg/dL Urine Glucose (UA) NEG mg/dL Urine Ketones NEG mg/dL Urine Occult Blood NEG Urine Nitrite NEG Urine Bilirubin NEG Urine Urobilinogen LESS THAN 2.0 MG/DL Urine Leukocyte Esterase NEG Urine RBC LESS THAN 1 /hpf Urine WBC 1 /hpf Urine Squamous Epithelial <1 /hpf Cells Urine Mucus FEW /lpf Microscopic Urinalysis Comment CULT NOT INDICATED Troponin I LESS THAN 0.02 NG/ML Nasal Screen MRSA (PCR) NEGATIVE Test 04/24/16 04/24/16 04/25/16 04/25/16 21:39 22:14 05:02 12:47 Total Creatine Kinase 79 U/L 127 U/L Sodium Level 139 MEQ/L 138 MEQ/L Potassium Level 4.1 MEQ/L 4.1 MEQ/L Chloride Level 97 MEQ/L 94 MEQ/L Carbon Dioxide Level 33.7 MEQ/L 35.7 MEQ/L Anion Gap 8 MEQ/L 8 MEQ/L Blood Urea Nitrogen 23 MG/DL 23 MG/DL Creatinine 1.02 MG/DL 0.97 MG/DL Estimat Glomerular Filtration 85 ML/MIN 90 ML/MIN Rate Random Glucose 132 MG/DL 123 MG/DL Calcium Level 8.6 MG/DL 8.1 MG/DL Troponin I LESS THAN 0.02 0.04 NG/ML NG/ML Vancomycin Level Trough 14.0 MCG/ML Blood Gas Puncture Site LT RADIAL LT RADIAL Blood Gas Patient Temperature 98.6 98.6 Blood Gas HCO3 37 mmol/L 34 mmol/L Blood Gas Base Excess 8.0 mmol/L 9.2 mmol/L Blood Gas Oxygen Saturation 92 % 92 % Arterial Blood pH 7.16 7.40 Arterial Blood Partial 108 mmHg 56 mmHg Pressure CO2 Arterial Blood Partial 96 mmHg 73 mmHg Pressure O2 Arterial Blood Oxygen Content 17.1 Vol % 15.5 Vol % Arterial Blood 1.0 % 1.3 % Carboxyhemoglobin Arterial Blood Methemoglobin 1.1 % 1.1 % Blood Gas Hemoglobin 13.2 G/DL 12.0 G/DL Oxygen Delivery Device BIPAP VENTILATOR Blood Gas Ventilator Setting IPAP18/[id number] PC/AC Blood Gas Inspired Oxygen 100 % 100 % White Blood Count 8.9 TH/MM3 Red Blood Count 4.78 MIL/MM3 Hemoglobin 11.7 GM/DL Hematocrit 36.1 % Mean Corpuscular Volume 75.4 FL Mean Corpuscular Hemoglobin 24.4 PG Mean Corpuscular Hemoglobin 32.3 % Concent Red Cell Distribution Width 19.1 % Platelet Count 306 TH/MM3 Mean Platelet Volume 8.0 FL Neutrophils (%) (Auto) 92.9 % Lymphocytes (%) (Auto) 6.2 % Monocytes (%) (Auto) 0.4 % Eosinophils (%) (Auto) 0.0 % Basophils (%) (Auto) 0.5 % Neutrophils # (Auto) 8.3 TH/MM3 Lymphocytes # (Auto) 0.6 TH/MM3 Monocytes # (Auto) 0.0 TH/MM3 Eosinophils # (Auto) 0.0 TH/MM3 Basophils # (Auto) 0.0 TH/MM3 CBC Comment AUTO DIFF Differential Comment AUTO DIFF CONFIRMED Creatine Kinase MB 1.9 NG/ML B-Type Natriuretic Peptide 151 PG/ML Test 04/26/16 04/26/16 04/26/16 00:00 06:55 07:10 Vancomycin Level Trough 16.7 MCG/ML Urine Color YELLOW Urine Turbidity CLOUDY Urine pH 6.0 Urine Specific Ronan 1.041 Urine Protein 30 mg/dL Urine Glucose (UA) NEG mg/dL Urine Ketones NEG mg/dL Urine Occult Blood TRACE Urine Nitrite NEG Urine Bilirubin NEG Urine Urobilinogen LESS THAN 2.0 MG/DL Urine Leukocyte Esterase MOD Urine RBC 25 /hpf Urine WBC 8 /hpf Urine WBC Clumps RARE Urine Transitional Epithelial 1 /hpf Cells Urine Amorphous Sediment OCC Urine Bacteria OCC /hpf Microscopic Urinalysis Comment CATH-CULTURE IND White Blood Count 14.1 TH/MM3 Red Blood Count 5.13 MIL/MM3 Hemoglobin 12.2 GM/DL Hematocrit 38.3 % Mean Corpuscular Volume 74.6 FL Mean Corpuscular Hemoglobin 23.7 PG Mean Corpuscular Hemoglobin 31.8 % Concent Red Cell Distribution Width 19.6 % Platelet Count 279 TH/MM3 Mean Platelet Volume 8.2 FL Neutrophils (%) (Auto) 94.2 % Lymphocytes (%) (Auto) 3.1 % Monocytes (%) (Auto) 2.3 % Eosinophils (%) (Auto) 0.0 % Basophils (%) (Auto) 0.4 % Neutrophils # (Auto) 13.3 TH/MM3 Lymphocytes # (Auto) 0.4 TH/MM3 Monocytes # (Auto) 0.3 TH/MM3 Eosinophils # (Auto) 0.0 TH/MM3 Basophils # (Auto) 0.1 TH/MM3 CBC Comment AUTO DIFF Hematology Comments Laboratory Tests Test 04/24/16 04/25/16 22:14 05:02 Blood Gas Puncture Site LT RADIAL LT RADIAL Blood Gas Patient Temperature 98.6 98.6 Blood Gas HCO3 37 mmol/L 34 mmol/L (22-26) (22-26) Blood Gas Base Excess 8.0 mmol/L 9.2 mmol/L (-2-2) (-2-2) Blood Gas Oxygen Saturation 92 % (90-100) 92 % (90-100) Arterial Blood pH 7.16 7.40 (7.380-7.420) (7.380-7.420) Arterial Blood Partial 108 mmHg 56 mmHg (38-42) Pressure CO2 (38-42) Arterial Blood Partial 96 mmHg 73 mmHg Pressure O2 (61-120) (61-120) Arterial Blood Oxygen Content 17.1 Vol % 15.5 Vol % (12.0-20.0) (12.0-20.0) Arterial Blood 1.0 % (0-4) 1.3 % (0-4) Carboxyhemoglobin Arterial Blood Methemoglobin 1.1 % (0-2) 1.1 % (0-2) Blood Gas Hemoglobin 13.2 G/DL 12.0 G/DL (12.0-16.0) (12.0-16.0) Oxygen Delivery Device BIPAP VENTILATOR Blood Gas Ventilator Setting IPAP18/[id number] PC/AC Blood Gas Inspired Oxygen 100 % 100 % Imaging Last 24 hours Impressions Chest X-Ray 04/27/16 0600 Signed Impressions: Service Date/Time: Wednesday, April 27, 2016 03:51 - CONCLUSION: 1. Tracheostomy tube in place. No pneumothorax. 2. Pulmonary venous congestion with some bibasilar infiltrates. Lázaro Frankel MD Objective Remarks GENERAL: Lying in bed, on mech vent via trach in situ, currently sedated SKIN: Warm and dry. HEAD: Normocephalic. Atraumatic. EYES: PERRL. No scleral icterus. No injection or drainage. ENT: No nasal drainage. Oral mucosa moist NECK: Shiley 6.0 Proximal XLT, the military pilot balloon off, inflated and secured with hemostat. CARDIOVASCULAR: Regular rate and rhythm without murmurs, gallops, or rubs. RESPIRATORY: On mechanical ventilation via tracheostomy. Maintenance of tidal volumes 400-500 cc currently. Air entry decreased bilaterally at bases. No wheezing, diminished throughout bilaterally. GASTROINTESTINAL: Abdomen soft, non-tender, obese, normal BS. NEURO: Optimal sedation with a RASS -3 on mechanical ventilation, on fentanyl, Versed and propofol infusion, to maintain ventilator synchrony. Date of Insertion: Apr 24, 2016 Vascular Central Line Catheter: Yes Assessment to: Continue Date of Insertion: Apr 26, 2016 Line: PICC A/P Assessment and Plan ASSESSMENT Acute hypercapnic and hypoxemic respiratory failure Healthcare associated pneumonia Sepsis CHF exacerbation CO2 narcosis Tracheostomy military pilot balloon damage Chronic Respiratory Failure s/p Tracheostomy 4 years ago (Shiley 6.0 Proximal XLT) COPD/obesity hypoventilation syndrome Morbid Obesity BMI 67 History of pulmonary embolism 4 years ago Chronic atrial fibrillation Anxiety CHF (Echo 2013 EF 40-45%; ECHO 08/2015 showing a grossly normal systolic function) Hypertension 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 Keep RASS -3 -Possible planned surgery for tracheostomy exchange for Friday, 04/29, if stable RESP: Acute hypercapnic and hypoxemic respiratory failure Healthcare associated pneumonia Tracheostomy military pilot balloon damage (Shiley 6.0 Proximal XLT) Chronic Respiratory Failure s/p Tracheostomy 4 years ago COPD/obesity hypoventilation syndrome History of pulmonary embolism 4 years ago Leukocytosis -Continue mechanical ventilation PC/AC rate 18, Insp pres 25, PEEP 12 Fio2 titrate to keep SaO2 >90%. Current FiO2 1.0 -Gen. surgery consulted for tracheostomy tube exchange. Discussed with Dr. Dannie arrieta. He plans to do the tracheostomy exchange in the OR in the next 24- 48 hours. In the meanwhile cuff was inflated using a syringe and needle and subsequently hemostat used to clamp tubing to retain air in the cuff. -Healthcare associated pneumonia is being treated with IV vancomycin and Zosyn and Levaquin -Leukocytosis WBC 12.1from 14.1 today, slight improvement continue to monitor -Obtain Sputum culture today -DuoNeb every 4 hours schedule and when necessary -Begin Pulmicort BID (home med) -Continue IV Solu-Medrol to 60 mg every 6 hours -Continue to hold Xarelto in view of planned tracheostomy exchange. - Continue therapeutic Lovenox for full anticoagulation 150 mg/12 hr starting , since patient not scheduled for tracheostomy exchange by general surgery at this time. CV: CHF exacerbation Pulmonary edema Chronic atrial fibrillation -Currently on IV Lasix 40 mg every 12 - A. fib rate controlled -IV to KVO GI: Super morbid obesity with BMI of 68 -Nothing by mouth. -Begin PPN tonight -IV Protonix -Patient extremely anxious, no success with NG tube placement yesterday prior to full anticoagulation, will begin PPN : -Monitor renal function closely. - Milan catheter. - Strict I&O ID: Healthcare associated pneumonia Sepsis -Continue IV vancomycin, Zosyn and Levaquin - Blood urine and blood culture NGTD HEME: History of PE on chronic anticoagulation with Xarelto -Monitor CBC, CMP, coags -Xarelto for PE 4 yrs ago. -Hold Xarelto. -Lovenox therapeutic starting 04/26 , will hold, when schedule for tracheostomy exchange in OR. ENDO: Hypothyroidism -Electrolyte replacement protocol -Continue levothyroxin 25 mcgs IV daily PROPH: -Bilateral lower extremity SCDs. Lovenox DVT prophylaxis. IV Protonix for GI prophylaxis LINES: -Planned PICC line (day 2) Discussed this a.m. with Dr. Dannie Arrieta, patient still too unstable to return to the OR at this time. We'll continue to wean FiO2 and plan for general OR possibly Friday This patient remains critically ill with one or more organ systems which are or may become a threat to life. I have spent in excess of 49 minutes discontinuously in the care and management of this patient. This time is exclusive of procedures, and includes, but is not limited to, evaluation of the patient, review of the medical record, discussions with family, consultants, nursing staff, or respiratory therapy, and documentation in the medical record. Discussed patient with RN at bedside. Physician Juana Cisneros MD Apr 27, 2016 16:34
[2016-04-27] MEDS: LEVOFLOXACIN 750 MG PREMIX INJ 150 ML IV SCH (17:01)
[2016-04-27] MEDS: SODIUM CHLORIDE 0.9% FLUSH 5 ML FLUSH FLUSH PRN (20:06)
[2016-04-27] MEDS: EPOPROSTENOL NEB SOLUTION 50 NG/KG/MIN 100 ML NEB SCH ×2 (21:01)
[2016-04-28] VITALS (22 sets, daily range): BP systolic 116–130; BP diastolic 59–65; PULSE 63–72; RESP 22–30; TEMP 98–99.6; O2SAT 87–95
[2016-04-28] MEDS: fentaNYL DRIP 250 ML IV SCH ×3 (01:05→14:34)
[2016-04-28] MEDS: PROPOFOL 1000 MG/100 ML INJ 100 ML IV SCH ×8 (01:19→20:43)
[2016-04-28] MEDS: RESP: ALBUTEROL 2.5 MG/IPRATROPIUM 0.5 MG NEB (SCH) NEB ×5 (02:53→23:35)
[2016-04-28] MEDS: CHLORHEXIDINE GLUCONATE 2 % 1 PACK (2 CLOTHS)(taper/protocol) TOP SCH (04:00)
[2016-04-28] MEDS: PIPERACIL-TAZO 4.5 GM PREMIX 100 ML IV SCH ×4 (04:02→20:43)
[2016-04-28 05:12] LABS: BLOOD GAS VENOUS BASE EXCESS 10.2 mmol/L (-2-2); BLOOD GAS VENOUS HCO3 35 mmol/L (22-26); BLOOD GAS VENOUS O2 CONTENT 12.4 Vol % (9.0-17.0); BLOOD GAS VENOUS O2 HGB SAT 79 % (70-76); BLOOD GAS VENOUS PCO2 48 mmHg (44-48); BLOOD GAS VENOUS PO2 48 mmHg (35-40); BLOOD GAS VENOUS pH 7.47 (7.360-7.400); CRITICAL VALUE NO; OXYGEN DEVICE VENTILATOR; TEMP CORR TO 98.6
[2016-04-28] MEDS: methylPREDNISolone SOD SUCC 40 MG/1 ML VIAL IV PUSH SCH ×3 (05:13→18:42)
[2016-04-28] MEDS: EPOPROSTENOL NEB SOLUTION 50 NG/KG/MIN 100 ML NEB SCH ×6 (05:13→20:17)
[2016-04-28] MEDS: LEVOTHYROXINE SODIUM 100 MCG VIAL IV PUSH SCH (05:14)
[2016-04-28 05:19] LABS: DRAW SITE PICC LINE; FIO2 60 %; STAT NO; VENT SETTINGS PRVC/AC
[2016-04-28 06:31] LABS: HEMATOCRIT 34.8 % (39.0-51.0); MEAN CELL VOLUME 74.8 FL (80.0-100.0); MEAN CORPUSCULAR HEMOGLOBIN 23.3 PG (27.0-34.0); MEAN CORPUSCULAR HGB CONC 31.2 % (32.0-36.0); PLATELET COUNT 274 TH/MM3 (150-450); RED BLOOD COUNT 4.65 MIL/MM3 (4.50-5.90); RED CELL DISTRIBUTION WIDTH 19.6 % (11.6-17.2); WHITE BLOOD COUNT 13.5 TH/MM3 (4.0-11.0)
[2016-04-28 06:32] LABS: REVIEW FLAG FINAL
[2016-04-28 06:54] LABS: BICARBONATE 34.9 MEQ/L (21.0-32.0); MAGNESIUM 1.8 MG/DL (1.5-2.5); POTASSIUM 3.2 MEQ/L (3.5-5.1)
[2016-04-28] MEDS: RESP: BUDESONIDE 0.5 MG/2 ML NEB NEB SCH ×2 (07:39→19:15)
[2016-04-28] MEDS ORDERED: ALLO300T2 PO (07:41)
[2016-04-28] MEDS ORDERED: FENO48TA PO (07:42)
[2016-04-28] MEDS ORDERED: ATOR10TA15 PO (07:43)
[2016-04-28] MEDS ORDERED: MONT10TA4 PO (07:43)
[2016-04-28] MEDS ORDERED: POTA10CA PO (07:44)
[2016-04-28] MEDS ORDERED: FURO40TA PO (07:45)
[2016-04-28] MEDS ORDERED: LOPE2TAB3 PO (07:49)
[2016-04-28] MEDS ORDERED: XARE20TA PO (07:50)
[2016-04-28] MEDS ORDERED: ADVA250A INH (07:52)
[2016-04-28] MEDS ORDERED: METO50TA PO (07:53)
[2016-04-28] MEDS ORDERED: ALPR.5 PO (07:54)
[2016-04-28] MEDS ORDERED: AMBI5TAB PO (07:56)
[2016-04-28] MEDS ORDERED: CLAR500T PO (07:57)
[2016-04-28] MEDS ORDERED: PRED5TAB PO (08:00)
[2016-04-28] MEDS ORDERED: ALBU.5I NEB (08:00)
[2016-04-28] MEDS ORDERED: ACET325T PO (08:01)
[2016-04-28] MEDS ORDERED: MELA1TAB18 PO (08:02)
[2016-04-28] MEDS ORDERED: HYDR50TA15 PO (08:03)
[2016-04-28] MEDS ORDERED: LEVO50TA4 PO (08:04)
[2016-04-28] MEDS ORDERED: MICO2CRE34 TOPICAL (08:05)
[2016-04-28] MEDS: CHLORHEXIDINE 0.12% (ORAL KIT) 15 ML CUP MT SCH ×2 (08:19→20:16)
[2016-04-28] MEDS: SODIUM CHLORIDE 0.9% FLUSH 5 ML FLUSH FLUSH PRN (08:20)
[2016-04-28] MEDS: SODIUM CHLORIDE 0.9% FLUSH 5 ML FLUSH FLUSH SCH ×2 (08:20→20:16)
[2016-04-28] MEDS: FENOFIBRATE 48 MG TAB PO SCH (08:21)
[2016-04-28] MEDS: MONTELUKAST SODIUM 10 MG TAB PO SCH (08:21)
[2016-04-28] MEDS: ATORVASTATIN 10 MG TAB PO SCH (08:21)
[2016-04-28] MEDS: FUROSEMIDE 20 MG/2 ML VIAL IV PUSH SCH (08:21)
[2016-04-28] MEDS: ENOXAPARIN SODIUM 150 MG/ML SYRINGE SQ SCH (08:22)
[2016-04-28] MEDS: MICONAZOLE NITRATE 2% CREAM 15 GM TOP SCH ×2 (08:22→20:18)
[2016-04-28] MEDS: ALLOPURINOL 300 MG TAB PO SCH (08:22)
[2016-04-28] MEDS: MIDAZOLAM 100 MG/NS 100 ML DRIP Premix IV SCH ×2 (08:25→16:29)
[2016-04-28] MEDS: POTASSIUM CHLOR 40 MEQ PREMIX 100 ML IV PRN (08:25)
--- NOTE | 2016-04-28 09:06 | HHI.FPPN ---
Subjective Remarks Afebrile, vitals are stable. FiO2 has been weaned to 65% this AM. O2 sats have been maintained greater than 91%. 4250mL of UOP. No BMs. Patient is sedated this morning. (Brandon Canales MD R1) Objective Vitals Vital Signs Date Time Temp Pulse Resp B/P Pulse Ox O2 Delivery O2 Flow Rate FiO2 04/28/16 07:42 92 65 04/28/16 06:00 68 04/28/16 04:19 93 60 04/28/16 04:00 98.8 69 22 128/62 93 04/28/16 04:00 69 04/28/16 04:00 60 04/28/16 02:18 94 60 04/28/16 02:00 67 04/28/16 01:00 65 04/28/16 00:52 95 65 04/28/16 00:00 70 04/28/16 00:00 98.0 72 30 116/59 95 04/27/16 22:10 93 70 04/27/16 22:00 70 04/27/16 22:00 68 04/27/16 21:30 75 04/27/16 21:30 94 75 04/27/16 20:30 95 80 04/27/16 20:00 66 04/27/16 20:00 97.8 70 22 121/61 91 04/27/16 20:00 90 04/27/16 19:20 91 100 04/27/16 18:00 74 04/27/16 16:00 64 04/27/16 16:00 100 04/27/16 16:00 97.0 64 22 130/65 94 04/27/16 15:29 94 100 04/27/16 14:00 62 04/27/16 12:00 97.9 56 22 131/65 93 04/27/16 12:00 56 04/27/16 12:00 100 04/27/16 11:54 93 100 04/27/16 10:00 59 I/O 04/27/16 04/27/16 04/27/16 04/28/16 04/28/16 04/28/16 06:59 14:59 22:59 06:59 14:59 22:59 Intake Total 1900 ml 1423 ml 1047 ml 1374 ml Output Total 1000 ml 2600 ml 1250 ml 400 ml Balance 900 ml -1177 ml -203 ml 974 ml Intake Oral 0 ml IV Total 1900 ml 1423 ml 1047 ml 1374 ml Output Urine Total 1000 ml 2600 ml 1250 ml 400 ml # Bowel Movements 0 (Brandon Canales MD R1) Result Diagram: 04/28/1650904/28/16509 Objective Remarks GENERAL: Sedated in bed SKIN: Warm and dry. No rashes or lesions. HEAD: Normocephalic. Atraumatic. ENT: No nasal drainage. Tracheotomy site is clean and dry without drainage. NECK: No JVD. CARDIOVASCULAR: Regular rate and rhythm without murmurs, gallops, or rubs. Peripheral pulses 2+. RESPIRATORY: On mechanical ventilation. Clear to auscultation bilaterally. GASTROINTESTINAL: Abdomen soft, non-tender, obese, normal BS. Unable to assess for organomegaly or masses. MUSCULOSKELETAL: Lower extremities still appearing edematous similar to prior examination NEURO: Sedated. (Brandon Canales MD R1) Date of Insertion: Apr 24, 2016 (Brandon Canales MD R1) Date of Insertion: Apr 26, 2016 Line: PICC (Brandon Canales MD R1) A/P Assessment and Plan 31 year old male with a PMH of chronic respiratory failure s/p tracheostomy 4 years ago, morbid obesity with BMI 67.6, atrial fibrillation and pulmonary embolism on Xarelto, CHF, and h/o HTN in long-term rehab at [facility] presented to the ED after having low oxygen saturation at 82% on RA. He is admitted for shortness of breath likely secondary to a combination of HCAP, COPD exacerbation and CHF exacerbation. Critical care is on board. Discharge Planning Unclear timetable at this time. (Brandon Canales MD R1) Problem List: (1) On mechanically assisted ventilation Status: Acute Plan: Critical care consulted due to worsening CO2 retention and respiratory acidosis Patient placed on mechanical ventilation on 04/24, FiO2 now weaned to 65% with PEEP 7 General surgery consulted for a trach exchange as patients trach was found to have a leak. Patient will need a trach exchange as soon as possible if patient is to improve with respiratory function. GS planning for trach exchange possibly Friday Continue Solumedrol 60 mg IV q6h (2) HCAP (healthcare-associated pneumonia) Status: Acute Plan: Afebrile, pulse wnls Leukocytosis 13.5 on steroids Repeat ABG on 04/26 showed improvement with CO2 56 with pH 7.40 CXR showing markedly enlarged heart, generalized interstitial vascular congestion, and no evidence of a consolidating airspace disease Received Vanc 1.5gm IV and Zosyn 4.5gm IV in ED 04/24 BCx NG1D - Continue with Vancomycin 2gm IV q12h, Zosyn 4.5gm IV q6h, Levaquin 750mg IV q24h (Started 04/24) - Sputum culture pending, will follow - Duonebs q4h (3) T wave inversion in EKG Status: Acute Plan: T-wave inversions seen in leads V2-V6 on initial EKG Prior EKG from a previous admission only with evidence of T-wave inversion in lead V2 Repeat EKG during this hospitalization with previously seen T-wave changes improved Troponin x 3 <0.02 (4) CHF (congestive heart failure) Status: Chronic Plan: Last ECHO 09/18/2015 showing a grossly normal systolic function with no definitive EF as it was difficult to assess, ECHO on 05/2014 with EF of 40-45% with mildly dilated left atrium 04/25 ECHO was limited due to poor image quality, EF could not be adequately estimated. Systolic function appears to be grossly normal. BNP on admission 419, repeat BNP 151 Received Lasix 20 mg po in ED Bumex 2 mg IV x one given 04/24 Continue Lasix 40 mg IV BID (5) Atrial fibrillation Status: Chronic Plan: Last EKG in sinus rhythm RRR on exam Home dose of Xarelto 20 mg po daily has been held in anticipation of surgery. (6) Tracheostomy present Status: Chronic Plan: General surgery consulted for trach exchange given current trach with leak. Xarelto held in anticipation of surgery GS plans for tracheostomy exchange to a new one with a working cuff once ventilator settings are weaned down. * Continue to inflate cuff on PRN basis. (7) HTN (hypertension) Status: Chronic Plan: BPs stable Hold home BP medications Vitals q4h (8) Morbid obesity with BMI of 60.0-69.9, adult Status: Chronic Plan: Likely contributing to chronic respiratory issues (9) Hypothyroidism Status: Chronic Plan: Synthroid 25 mcg IV daily (10) Nutrition, metabolism, and development symptoms Status: Acute Plan: Fluids: none Electrolytes: Monitor and replete when necessary per protocol Nutrition: PPN via PICC DVT PPx: Home dose of Xarelto held. Lovenox held in anticipation of OR tomorrow sdw Dr. Ko and Rosie Abel, MS4 wdw Dr. Garcia (Brandon Canales MD R1) Problem Qualifiers (1) CHF (congestive heart failure): Qualified Code: I50.9 - Acute on chronic congestive heart failure, unspecified congestive heart failure type (2) Atrial fibrillation: Qualified Code: I48.2 - Chronic atrial fibrillation (3) HTN (hypertension): Qualified Code: I10 - Essential hypertension (4) Hypothyroidism: Qualified Code: E03.9 - Hypothyroidism, unspecified type Brandon Canales MD R1 Apr 28, 2016 09:06 Bernice Garcia MD Apr 30, 2016 08:53
[2016-04-28] MEDS: VANCOMYCIN INJ 2,000 MG in SODIUM CHLORID 0.9% 500 ML INJ 500 ML IV SCH ×2 (11:09→23:44)
--- NOTE | 2016-04-28 13:43 | HHI.CCPN ---
Subjective Remarks/Hospital Course 04/24: Wilfrido Fortune is a 31 year old male with past medical history of chronic respiratory failure s/p tracheostomy 4 years ago, super morbid obesity (BMI 68) , atrial fibrillation and pulmonary embolism on Xarelto, COPD, CHF and h/o HTN. Patient presented from [facility] with low oxygen saturation apparently his oxygen saturation was 82% on RA. He was placed back on 6L of oxygen via his trach mask and given a breathing treatment, initially improved however he started drifting back to low 80s again. Apparently patient had been getting treatment for pneumonia at the rehabilitation facility. In the ER chest x-ray showed bibasilar infiltrates and pulmonary edema. Patient was admitted to the [facility] service and was started on IV steroids IV vancomycin and Zosyn and Levaquin for healthcare associated pneumonia. ABG after admission was pH of 7.42 PCO2 of 61 and PO2 55. Repeat ABG at 5 PM showed pH of 7.26 PCO2 of 85 and PO2 of 70 and patient was started on BiPAP by the [facility]. ABG at 10:15 showed worsening CO2 retention with pH 7.16 PCO2 108 and PO2 of 98. At that time critical care medicine was consulted After receiving the consult, Dr. Zelaya immediately ordered placement on for full mechanical ventilatory support and starting sedation for ventilator synchrony. Dr. Zelaya evaluated the patient in ICU. After starting ACV, patient was more awake but there was a significant amount of air leak around his tracheostomy. Patient has a Shiley 6.0 Proximal XLT, but the aircraft pilot balloon had been cut off. Vent settings changed from ACV to pressure control with inspiratory pressure of 25, which improved the tidal volume he was receiving. General surgery consulted for trach exchange in a.m. Solu-Medrol increased to 60 mg IV every 6 hours after 125 mg bolus. Additional 2 mg IV Bumex had been ordered. Scheduled and when necessary breathing treatment ordered. 04/25: Patient remains on mechanical ventilation via tracheostomy. Discussed with Dr. Dannie arrieta from general surgery. He inflated air in the cuff using a Seldinger needle and then applied a hemostat with which cuff appeared to stay inflated and patient started volume improved. He plans to change out tracheostomy once patient is a little more stable in the next 24-48 hours in the OR. 04/26: Afebrile. Tracheostomy cuff remains inflated, with hemostat secured. Tidal volumes greater than 400 cc. Patient continues on fentanyl and propofol infusions, with a RASS score of 0. Patient complains of discomfort in bed, requesting larger more comfortable bed. FiO2 decreased to 80% this a.m., with close monitoring to be trended with O2 sat of 94% discussion with Dr. Arrieta this a.m.. The patient is still too unstable secondary to respiratory insufficiency to go to the OR today, will begin therapeutic anticoagulation today secondary to history of PE and other risk factors. 04/27: Afebrile. Tmax 97.6. Overnight the patient required increasing O2 concentrations. Patient's trach cuff required reinflation 2 overnight, maintaining volumes 400-500 cc per breath. The patient's FiO2 currently is 1.0 , O2 sat 94-96%. The patient received PICC line yesterday secondary to difficult IV access and nutrition requirements, will begin PPN tonight. The patient remains optimally sedated for ventilator's synchrony, and minimization of agitation. Currently requirements include propofol Versed and fentanyl infusions. 04/28: Tmax 98.7. The patient still requires and increasing O2 concentrations, Flolan initiated last night FiO2 was significantly decreased to 60% ,however this a.m. patient's O2 sat remained mid 80s with a requirement of increasing PEEP to 11 and FiO2 return to 100% currently aggressively utilizing recruitment maneuvers to decrease O2 and PEEP requirements for transfer to the OR tomorrow for exchange of tracheostomy apparatus. The patient continues to be sedated for patient safety and ventilator synchrony. Objective - Vital Signs Date Time Temp Pulse Resp B/P Pulse Ox O2 Delivery O2 Flow Rate FiO2 04/28/16 12:00 98.4 66 22 125/63 94 04/28/16 12:00 65 04/24/16 20:10 15.00 04/24/16 19:29 BiPAP Intake and Output 04/27/16 04/27/16 04/28/16 08:00 16:00 00:00 Intake Total 1900 ml 1423 ml 1047 ml Output Total 1000 ml 2600 ml 1250 ml Balance 900 ml -1177 ml -203 ml Result Diagram: 04/28/16 0510 04/28/16 0510 Other Results Laboratory Tests Test 04/28/16 04/28/16 05:05 05:10 Blood Gas Puncture Site PICC LINE Blood Gas Patient Temperature 98.6 Venous Blood pH 7.47 (7.360-7.400) Venous Blood Partial Pressure 48 mmHg (44-48) CO2 Venous Blood Partial Pressure 48 mmHg (35-40) O2 Venous Blood HCO3 35 mmol/L (22-26) Venous Blood Oxygen Saturation 79 % (70-76) Venous Blood Oxygen Content 12.4 Vol % (9.0-17.0) Venous Blood Base Excess 10.2 mmol/L (-2-2) Oxygen Delivery Device VENTILATOR Blood Gas Ventilator Setting PRVC/AC Blood Gas Inspired Oxygen 60 % White Blood Count 13.5 TH/MM3 (4.0-11.0) Red Blood Count 4.65 MIL/MM3 (4.50-5.90) Hemoglobin 10.9 GM/DL (13.0-17.0) Hematocrit 34.8 % (39.0-51.0) Mean Corpuscular Volume 74.8 FL (80.0-100.0) Mean Corpuscular Hemoglobin 23.3 PG (27.0-34.0) Mean Corpuscular Hemoglobin 31.2 % Concent (32.0-36.0) Red Cell Distribution Width 19.6 % (11.6-17.2) Platelet Count 274 TH/MM3 (150-450) Mean Platelet Volume 8.2 FL (7.0-11.0) Sodium Level 139 MEQ/L (136-145) Potassium Level 3.2 MEQ/L (3.5-5.1) Chloride Level 94 MEQ/L (98-107) Carbon Dioxide Level 34.9 MEQ/L (21.0-32.0) Anion Gap 10 MEQ/L (5-15) Blood Urea Nitrogen 18 MG/DL (7-18) Creatinine 0.79 MG/DL (0.60-1.30) Estimat Glomerular Filtration 114 ML/MIN Rate (>89) Random Glucose 140 MG/DL (74-106) Calcium Level 8.3 MG/DL (8.5-10.1) Phosphorus Level 2.9 MG/DL (2.5-4.9) Magnesium Level 1.8 MG/DL (1.5-2.5) Laboratory Tests Test 04/24/16 04/24/16 04/24/16 04/24/16 12:11 12:35 12:40 13:50 Blood Gas Puncture Site LT RADIAL Blood Gas Patient Temperature 98.6 Blood Gas HCO3 39 mmol/L Blood Gas Base Excess 13.9 mmol/L Blood Gas Oxygen Saturation 84 % Arterial Blood pH 7.42 Arterial Blood Partial 61 mmHg Pressure CO2 Arterial Blood Partial 55 mmHG Pressure O2 Arterial Blood Oxygen Content 15.3 Vol % Arterial Blood 2.0 % Carboxyhemoglobin Arterial Blood Methemoglobin 2.1 % Blood Gas Hemoglobin 12.9 G/DL Oxygen Delivery Device MASK Blood Gas Liter Flow 6 L/M Blood Gas Inspired Oxygen 50 % White Blood Count 12.1 TH/MM3 Red Blood Count 5.31 MIL/MM3 Hemoglobin 12.5 GM/DL Hematocrit 40.4 % Mean Corpuscular Volume 76.2 FL Mean Corpuscular Hemoglobin 23.6 PG Mean Corpuscular Hemoglobin 31.0 % Concent Red Cell Distribution Width 19.2 % Platelet Count 355 TH/MM3 Mean Platelet Volume 8.0 FL Neutrophils (%) (Auto) 75.1 % Lymphocytes (%) (Auto) 16.2 % Monocytes (%) (Auto) 6.9 % Eosinophils (%) (Auto) 1.0 % Basophils (%) (Auto) 0.8 % Neutrophils # (Auto) 9.1 TH/MM3 Lymphocytes # (Auto) 2.0 TH/MM3 Monocytes # (Auto) 0.8 TH/MM3 Eosinophils # (Auto) 0.1 TH/MM3 Basophils # (Auto) 0.1 TH/MM3 CBC Comment AUTO DIFF Differential Comment AUTO DIFF CONFIRMED Polychromasia 2.1 % Prothrombin Time 14.2 SEC Prothromb Time International 1.4 RATIO Ratio Activated Partial 30.3 SEC Thromboplast Time Sodium Level 135 MEQ/L Potassium Level 4.2 MEQ/L Chloride Level 95 MEQ/L Carbon Dioxide Level 37.4 MEQ/L Anion Gap 3 MEQ/L Blood Urea Nitrogen 21 MG/DL Creatinine 1.00 MG/DL Estimat Glomerular Filtration 87 ML/MIN Rate Random Glucose 86 MG/DL Calcium Level 8.9 MG/DL Total Creatine Kinase 77 U/L Troponin I LESS THAN 0.02 NG/ML B-Type Natriuretic Peptide 419 PG/ML Lactic Acid Level 1.1 mmol/L Test 04/24/16 04/24/16 04/24/16 04/24/16 16:52 18:00 19:10 20:25 Blood Gas Puncture Site RT RADIAL Blood Gas Patient Temperature 98.6 Blood Gas HCO3 37 mmol/L Blood Gas Base Excess 9.5 mmol/L Blood Gas Oxygen Saturation 86 % Arterial Blood pH 7.26 Arterial Blood Partial 85 mmHg Pressure CO2 Arterial Blood Partial 70 mmHG Pressure O2 Arterial Blood Oxygen Content 15.2 Vol % Arterial Blood 1.6 % Carboxyhemoglobin Arterial Blood Methemoglobin 2.3 % Blood Gas Hemoglobin 12.6 G/DL Oxygen Delivery Device MASK Blood Gas Liter Flow 6 L/M Blood Gas Inspired Oxygen 50 % Urine Color YELLOW Urine Turbidity CLEAR Urine pH 5.5 Urine Specific [place] 1.009 Urine Protein NEG mg/dL Urine Glucose (UA) NEG mg/dL Urine Ketones NEG mg/dL Urine Occult Blood NEG Urine Nitrite NEG Urine Bilirubin NEG Urine Urobilinogen LESS THAN 2.0 MG/DL Urine Leukocyte Esterase NEG Urine RBC LESS THAN 1 /hpf Urine WBC 1 /hpf Urine Squamous Epithelial <1 /hpf Cells Urine Mucus FEW /lpf Microscopic Urinalysis Comment CULT NOT INDICATED Troponin I LESS THAN 0.02 NG/ML Nasal Screen MRSA (PCR) NEGATIVE Test 04/24/16 04/24/16 04/25/16 04/25/16 21:39 22:14 05:02 12:47 Total Creatine Kinase 79 U/L 127 U/L Sodium Level 139 MEQ/L 138 MEQ/L Potassium Level 4.1 MEQ/L 4.1 MEQ/L Chloride Level 97 MEQ/L 94 MEQ/L Carbon Dioxide Level 33.7 MEQ/L 35.7 MEQ/L Anion Gap 8 MEQ/L 8 MEQ/L Blood Urea Nitrogen 23 MG/DL 23 MG/DL Creatinine 1.02 MG/DL 0.97 MG/DL Estimat Glomerular Filtration 85 ML/MIN 90 ML/MIN Rate Random Glucose 132 MG/DL 123 MG/DL Calcium Level 8.6 MG/DL 8.1 MG/DL Troponin I LESS THAN 0.02 0.04 NG/ML NG/ML Vancomycin Level Trough 14.0 MCG/ML Blood Gas Puncture Site LT RADIAL LT RADIAL Blood Gas Patient Temperature 98.6 98.6 Blood Gas HCO3 37 mmol/L 34 mmol/L Blood Gas Base Excess 8.0 mmol/L 9.2 mmol/L Blood Gas Oxygen Saturation 92 % 92 % Arterial Blood pH 7.16 7.40 Arterial Blood Partial 108 mmHg 56 mmHg Pressure CO2 Arterial Blood Partial 96 mmHg 73 mmHg Pressure O2 Arterial Blood Oxygen Content 17.1 Vol % 15.5 Vol % Arterial Blood 1.0 % 1.3 % Carboxyhemoglobin Arterial Blood Methemoglobin 1.1 % 1.1 % Blood Gas Hemoglobin 13.2 G/DL 12.0 G/DL Oxygen Delivery Device BIPAP VENTILATOR Blood Gas Ventilator Setting IPAP18/[id number] PC/AC Blood Gas Inspired Oxygen 100 % 100 % White Blood Count 8.9 TH/MM3 Red Blood Count 4.78 MIL/MM3 Hemoglobin 11.7 GM/DL Hematocrit 36.1 % Mean Corpuscular Volume 75.4 FL Mean Corpuscular Hemoglobin 24.4 PG Mean Corpuscular Hemoglobin 32.3 % Concent Red Cell Distribution Width 19.1 % Platelet Count 306 TH/MM3 Mean Platelet Volume 8.0 FL Neutrophils (%) (Auto) 92.9 % Lymphocytes (%) (Auto) 6.2 % Monocytes (%) (Auto) 0.4 % Eosinophils (%) (Auto) 0.0 % Basophils (%) (Auto) 0.5 % Neutrophils # (Auto) 8.3 TH/MM3 Lymphocytes # (Auto) 0.6 TH/MM3 Monocytes # (Auto) 0.0 TH/MM3 Eosinophils # (Auto) 0.0 TH/MM3 Basophils # (Auto) 0.0 TH/MM3 CBC Comment AUTO DIFF Differential Comment AUTO DIFF CONFIRMED Creatine Kinase MB 1.9 NG/ML B-Type Natriuretic Peptide 151 PG/ML Test 04/26/16 04/26/16 04/26/16 00:00 06:55 07:10 Vancomycin Level Trough 16.7 MCG/ML Urine Color YELLOW Urine Turbidity CLOUDY Urine pH 6.0 Urine Specific [place] 1.041 Urine Protein 30 mg/dL Urine Glucose (UA) NEG mg/dL Urine Ketones NEG mg/dL Urine Occult Blood TRACE Urine Nitrite NEG Urine Bilirubin NEG Urine Urobilinogen LESS THAN 2.0 MG/DL Urine Leukocyte Esterase MOD Urine RBC 25 /hpf Urine WBC 8 /hpf Urine WBC Clumps RARE Urine Transitional Epithelial 1 /hpf Cells Urine Amorphous Sediment OCC Urine Bacteria OCC /hpf Microscopic Urinalysis Comment CATH-CULTURE IND White Blood Count 14.1 TH/MM3 Red Blood Count 5.13 MIL/MM3 Hemoglobin 12.2 GM/DL Hematocrit 38.3 % Mean Corpuscular Volume 74.6 FL Mean Corpuscular Hemoglobin 23.7 PG Mean Corpuscular Hemoglobin 31.8 % Concent Red Cell Distribution Width 19.6 % Platelet Count 279 TH/MM3 Mean Platelet Volume 8.2 FL Neutrophils (%) (Auto) 94.2 % Lymphocytes (%) (Auto) 3.1 % Monocytes (%) (Auto) 2.3 % Eosinophils (%) (Auto) 0.0 % Basophils (%) (Auto) 0.4 % Neutrophils # (Auto) 13.3 TH/MM3 Lymphocytes # (Auto) 0.4 TH/MM3 Monocytes # (Auto) 0.3 TH/MM3 Eosinophils # (Auto) 0.0 TH/MM3 Basophils # (Auto) 0.1 TH/MM3 CBC Comment AUTO DIFF Hematology Comments Laboratory Tests Test 04/24/16 04/25/16 22:14 05:02 Blood Gas Puncture Site LT RADIAL LT RADIAL Blood Gas Patient Temperature 98.6 98.6 Blood Gas HCO3 37 mmol/L 34 mmol/L (22-26) (22-26) Blood Gas Base Excess 8.0 mmol/L 9.2 mmol/L (-2-2) (-2-2) Blood Gas Oxygen Saturation 92 % (90-100) 92 % (90-100) Arterial Blood pH 7.16 7.40 (7.380-7.420) (7.380-7.420) Arterial Blood Partial 108 mmHg 56 mmHg (38-42) Pressure CO2 (38-42) Arterial Blood Partial 96 mmHg 73 mmHg Pressure O2 (61-120) (61-120) Arterial Blood Oxygen Content 17.1 Vol % 15.5 Vol % (12.0-20.0) (12.0-20.0) Arterial Blood 1.0 % (0-4) 1.3 % (0-4) Carboxyhemoglobin Arterial Blood Methemoglobin 1.1 % (0-2) 1.1 % (0-2) Blood Gas Hemoglobin 13.2 G/DL 12.0 G/DL (12.0-16.0) (12.0-16.0) Oxygen Delivery Device BIPAP VENTILATOR Blood Gas Ventilator Setting [id number]/[id number] PC/AC Blood Gas Inspired Oxygen 100 % 100 % Imaging Last 24 hours Impressions Chest X-Ray 04/27/16 0600 Signed Impressions: Service Date/Time: Wednesday, April 27, 2016 03:51 - CONCLUSION: 1. Tracheostomy tube in place. No pneumothorax. 2. Pulmonary venous congestion with some bibasilar infiltrates. Lázaro Frankel MD Objective Remarks GENERAL: Lying in bed, on mech vent via trach in situ, currently sedated SKIN: Warm and dry. HEAD: Normocephalic. Atraumatic. EYES: PERRL. No scleral icterus. No injection or drainage. ENT: No nasal drainage. Oral and nasal mucosa moist NECK: Shiley 6.0 Proximal XLT, the aircraft pilot balloon off, inflated and secured with hemostat. CARDIOVASCULAR: Regular rate and rhythm without murmurs, gallops, or rubs. RESPIRATORY: On mechanical ventilation via tracheostomy. Maintenance of tidal volumes 400-500 cc currently. Air entry decreased bilaterally at bases. No wheezing, diminished throughout bilaterally. GASTROINTESTINAL: Abdomen soft, non-tender, obese, normal BS. NEURO: Optimal sedation with a RASS -2 on mechanical ventilation, on fentanyl, Versed and propofol infusion, to maintain ventilator synchrony. Urinary Catheter: Yes Milan insert reason: ICU Pt Getting Diuretics Date of Insertion: Apr 24, 2016 Date of Insertion: Apr 26, 2016 Line: PICC Reason for Continuation Venous access A/P Assessment and Plan ASSESSMENT Acute hypercapnic and hypoxemic respiratory failure Healthcare associated pneumonia Sepsis CHF exacerbation CO2 narcosis Tracheostomy aircraft pilot balloon damage Chronic Respiratory Failure s/p Tracheostomy 4 years ago (Shiley 6.0 Proximal XLT) COPD/obesity hypoventilation syndrome Morbid Obesity BMI 67 History of pulmonary embolism 4 years ago Chronic atrial fibrillation Anxiety CHF (Echo 2013 EF 40-45%; ECHO 08/2015 showing a grossly normal systolic function) Hypertension 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 Keep RASS -3 -Possible planned surgery for tracheostomy exchange for Friday, 04/29, if stable RESP: Acute hypercapnic and hypoxemic respiratory failure Healthcare associated pneumonia Tracheostomy aircraft pilot balloon damage (Shiley 6.0 Proximal XLT) Chronic Respiratory Failure s/p Tracheostomy 4 years ago COPD/obesity hypoventilation syndrome History of pulmonary embolism 4 years ago Leukocytosis -Continue mechanical ventilation PC/AC rate 18, Insp pres 25, PEEP 12 Fio2 titrate to keep SaO2 >90%. Current FiO2 1.0 -Flolan initiated 04/27 -VBG-7.47/48/48/35/10.2 early this a.m. on FiO2 of 1.0, continue attempts at weaning-Aggressive diuresis -Gen. surgery consulted for tracheostomy tube exchange. Discussed with Dr. Dannie arrieta. He plans to do the tracheostomy exchange in the OR in the next 24- 48 hours. In the meanwhile cuff was inflated using a syringe and needle and subsequently hemostat used to clamp tubing to retain air in the cuff. -Healthcare associated pneumonia is being treated with IV vancomycin and Zosyn and Levaquin- ID consulted appreciated - Persistent mild Leukocytosis WBC 13.5 today,from 12.2 continue to monitor -Sputum culture revealed 04/28 many gram-negative rods -DuoNeb every 4 hours schedule and when necessary -Begin Pulmicort BID (home med) -Continue IV Solu-Medrol to 60 mg every 6 hours -Continue to hold Xarelto in view of planned tracheostomy exchange . - Continue therapeutic Lovenox for full anticoagulation 150 mg/12 hr starting , on hold today for anticipated tracheostomy exchange in the OR on Friday. CV: CHF exacerbation Pulmonary edema Chronic atrial fibrillation -Aggressive diuresis -Begin Lasix infusion 5 mg/hour we'll monitor potassium every 6/hour - A. fib rate controlled -IV to KVO GI: Super morbid obesity with BMI of 68 -Nothing by mouth. - PPN via PICC for now. We'll attempt placement of NG tube with cessation of Lovenox, and a.m. -IV Protonix -Patient extremely anxious, no success with NG tube placement yesterday prior to full anticoagulation, : -Monitor renal function closely. - Milan catheter. - Strict I&O ID: Healthcare associated pneumonia Sepsis -Continue IV vancomycin, Zosyn and Levaquin - Blood urine and blood culture NGTD -Sputum culture-04/28 many gram-negative rods -ID consulted, follow-up recommendations HEME: History of PE on chronic anticoagulation with Xarelto -Monitor CBC, CMP, coags -Xarelto for PE 4 yrs ago. -Hold Xarelto. -Lovenox therapeutic starting 04/26 , will hold, when schedule for tracheostomy exchange in OR. ENDO: Hypothyroidism -Electrolyte replacement protocol -Continue levothyroxine 25 mcgs IV daily PROPH: -Bilateral lower extremity SCDs. Lovenox DVT prophylaxis. IV Protonix for GI prophylaxis LINES: - PICC line (day 3) Will continue to wean FiO2 and plan for general OR possibly Friday, Therapuetic anticoagulation has been held for 24 hours(04/28) in anticipation of exchange. Having a tracheostomy balloon without cuff, is more a wrist with hypoxic respiratory failure. Emergency tracheostomy exchange is is recommended , as it is unsafe to leave with him in current situation, discussed with Dr. Dannie Arrieta. This patient remains critically ill with one or more organ systems which are or may become a threat to life. I have spent in excess of 53 minutes discontinuously in the care and management of this patient. This time is exclusive of procedures, and includes, but is not limited to, evaluation of the patient, review of the medical record, discussions with family, consultants, nursing staff, or respiratory therapy, and documentation in the medical record. Discussed patient with RN at bedside. Physician Juana Cisneros MD Apr 28, 2016 13:42
[2016-04-28] MEDS ORDERED: POTASSIUM CHLOR 40 MEQ PREMIX 100 ML IV-CENTRAL ONE (15:30)
[2016-04-28] MEDS: MAGNESIUM SULFATE 1 GM PREMIX 100 ML IV SCH ×2 (15:34→18:43)
[2016-04-28] MEDS ORDERED: FUROSEMIDE INJ 100 MG in SODIUM CHLORIDE 0.9% INJ 90 ML IV SCH (17:00)
[2016-04-28] MEDS: LEVOFLOXACIN 750 MG PREMIX INJ 150 ML IV SCH (18:42)
[2016-04-28] MEDS ORDERED: CLINIMIX E 4.25/5 1000 mL- </= 42 mls/hr IV SCH ×3 (20:00)
[2016-04-28] MEDS: ICU - POTASSIUM CHLORIDE/AQUEOUS SOLN 20 MEQ/100 ML IVPB IV PRN (20:48)
[2016-04-29] VITALS (20 sets, daily range): BP systolic 117–130; BP diastolic 60–68; PULSE 66–94; RESP 22; TEMP 99.6–100.1; O2SAT 90–99
[2016-04-29] MEDS ORDERED: FUROSEMIDE 40 MG/4 ML VIAL ONE (00:10)
[2016-04-29] MEDS ORDERED: FUROSEMIDE 40 MG/4 ML VIAL IV PUSH SCH (00:15)
[2016-04-29] MEDS: methylPREDNISolone SOD SUCC 40 MG/1 ML VIAL IV PUSH SCH ×5 (00:22→23:09)
[2016-04-29] MEDS: MIDAZOLAM 100 MG/NS 100 ML DRIP Premix IV SCH ×3 (01:40→20:42)
[2016-04-29] MEDS: RESP: ALBUTEROL 2.5 MG/IPRATROPIUM 0.5 MG NEB (PRN) NEB ×6 (02:09→19:30)
[2016-04-29] MEDS: EPOPROSTENOL NEB SOLUTION 50 NG/KG/MIN 100 ML NEB SCH ×6 (02:14→23:02)
[2016-04-29] MEDS: CHLORHEXIDINE GLUCONATE 2 % 1 PACK (2 CLOTHS)(taper/protocol) TOP SCH (02:14)
[2016-04-29] MEDS: PROPOFOL 1000 MG/100 ML INJ 100 ML IV SCH ×10 (02:14→23:02)
[2016-04-29 02:34] LABS: MAGNESIUM 2.3 MG/DL (1.5-2.5); POTASSIUM 3.7 MEQ/L (3.5-5.1)
[2016-04-29] MEDS: PIPERACIL-TAZO 4.5 GM PREMIX 100 ML IV SCH (03:26)
[2016-04-29] MEDS: POTASSIUM CHLOR 40 MEQ PREMIX 100 ML IV PRN ×2 (03:26→20:55)
[2016-04-29] MEDS: FUROSEMIDE INJ 100 MG in SODIUM CHLORIDE 0.9% INJ 90 ML IV SCH ×2 (04:10→16:05)
[2016-04-29] MEDS: LEVOTHYROXINE SODIUM 100 MCG VIAL IV PUSH SCH (04:28)
[2016-04-29 04:55] LABS: HEMATOCRIT 35.6 % (39.0-51.0); MEAN CELL VOLUME 74.8 FL (80.0-100.0); MEAN CORPUSCULAR HEMOGLOBIN 23.7 PG (27.0-34.0); MEAN CORPUSCULAR HGB CONC 31.7 % (32.0-36.0); PLATELET COUNT 241 TH/MM3 (150-450); RED BLOOD COUNT 4.76 MIL/MM3 (4.50-5.90); RED CELL DISTRIBUTION WIDTH 19.6 % (11.6-17.2); WHITE BLOOD COUNT 15.3 TH/MM3 (4.0-11.0)
[2016-04-29 04:56] LABS: REVIEW FLAG FINAL
[2016-04-29 05:06] LABS: APTT (PATIENT) 27.4 SEC (22.6-28.8); INTERNATIONAL NORMALIZED RATIO 1.1 RATIO; PROTHROMBIN TIME - PATIENT 11.4 SEC (9.8-11.4)
[2016-04-29 05:13] LABS: BICARBONATE 37.2 MEQ/L (21.0-32.0); MAGNESIUM 2.4 MG/DL (1.5-2.5); POTASSIUM 3.7 MEQ/L (3.5-5.1)
--- NOTE | 2016-04-29 05:44 | RADRPT ---
EXAM DATE/TIME: 04/29/2016 03:30 [facility] COMPARISON: CHEST SINGLE AP, April 24, 2016, 12:58. CHEST SINGLE AP, April 27, 2016, 3:51. INDICATIONS : Shortness of breath, possible pulmonary disease. MEDICAL HISTORY : Chronic obstructive pulmonary disease. SURGICAL HISTORY : Tracheostomy ENCOUNTER: Subsequent ACUITY: 1 week PAIN SCORE: Non-responsive. LOCATION: Bilateral chest FINDINGS: Tracheostomy unchanged. Gastric tube traverses the [id number]. Right PICC line has changed confi guration, now with a loop which appears to extend into the distal jugular vein. The tip is projected at the origin of the superior vena cava. Bilateral lower lobe consolidative infiltrates similar in severity to prior examination with loss of delineation of both hemidiaphragms. CONCLUSION: 1. Stable bibasilar consolidative infiltrates. 2. Some coiling of the PICC line since prior exam with the tip of the PIC line now at the level of th e origin of the superior vena cava. Jeremiah Tuttle MD on April 29, 2016 at 5:40 Board Certified Radiologist. This report was verified electronically.
[2016-04-29] MEDS: RESP: BUDESONIDE 0.5 MG/2 ML NEB NEB SCH ×2 (07:44→19:30)
--- NOTE | 2016-04-29 08:06 | RADRPT ---
EXAM DATE/TIME: 04/29/2016 07:12 [facility] COMPARISON: No previous studies available for comparison. INDICATIONS : Feeding tube placement. MEDICAL HISTORY : Chronic obstructive pulmonary disease. SURGICAL HISTORY : Tracheostomy. ENCOUNTER: Subsequent ACUITY: 1 day PAIN SCORE: Non-responsive. LOCATION: Left abdomen FINDINGS: The exams are very underexposed likely secondary to the patient's body habitus. There does appear to be a Dobbhoff tube seen to the right of midline likely in the distal stomach. Dilated bowel is not se en. CONCLUSION: Suspect Dobbhoff tube in the distal stomach. Garcia Lujan MD on April 29, 2016 at 8:04 Board Certified Radiologist. This report was verified electronically.
[2016-04-29] MEDS: FENOFIBRATE 48 MG TAB PO SCH (09:00)
[2016-04-29] MEDS: MONTELUKAST SODIUM 10 MG TAB PO SCH (09:00)
[2016-04-29] MEDS: ATORVASTATIN 10 MG TAB PO SCH (09:00)
[2016-04-29] MEDS: ALLOPURINOL 300 MG TAB PO SCH (09:00)
[2016-04-29] MEDS: CHLORHEXIDINE 0.12% (ORAL KIT) 15 ML CUP MT SCH ×2 (09:30→20:46)
[2016-04-29] MEDS: SODIUM CHLORIDE 0.9% FLUSH 5 ML FLUSH FLUSH SCH ×2 (09:31→20:44)
[2016-04-29] MEDS: MICONAZOLE NITRATE 2% CREAM 15 GM TOP SCH ×2 (09:37→20:48)
--- NOTE | 2016-04-29 09:39 | PD.CONS ---
History of Present Illness Service Infectious disease Consult Requested By Dr Morgan Reason for Consult Evaluate patient with persistent leukocytosis, has gram-negative rods in the sputum Primary Care Physician Unknown Diagnoses: History of Present Illness Patient seen and examined. Records reviewed. Patient is a 31-year-old morbidly obese male, resides in the [facility], has a chronic tracheostomy, brought to the hospital complaining of not feeling good. Is noted to be pale, oxygen saturation was 82% on room air. He was brought into the emergency room, initially he was tried on BiPAP. He was not improving, and was transferred to the ICU and put on mechanical ventilation. He has some problem with his tracheostomy , and part of the balloon has been cut off. He requires revision, and that is currently on hold due to respiratory instability. Overnight he was on 80%, and he is down to 65% FiO2. He is on PRBC with PEEP of 12. He had some low-grade temps overnight. He white count has been mildly elevated. Sputum culture has gram-negative rocky. Infectious disease consultation has been requested to evaluate the patient's persistent leukocytosis, and a gram-negative rocky in the sputum. Patient has been on Zosyn and Levaquin since 04/24. He has a lot of secretions from the trach, as well as orally. Review of Systems ROS Limitations: Clinical Condition, Intubated Past Family Social History Allergies: Coded Allergies: No Known Allergies (Unverified , 09/16/15) Past Medical History Chronic Respiratory Failure s/p Tracheostomy 4 years ago Morbid Obesity w/ BMI 67.6 Atrial fibrillation Pulmonary embolism 4 years ago Anxiety CHF (Echo 06/07/2014 w/ EF 40-45%; ECHO 08/2015 showing a grossly normal systolic function) HTN Hypothyroidism Past Surgical History Tracheostomy Tonsillectomy Active Ordered Medications Tylenol Diamox Albuterol Allopurinol Lipitor Pulmicort Benadryl Epoprostenol TriCor Levaquin Synthroid Magnesium Solu-Medrol Versed Singulair MVI Zofran Zosyn Potassium Diprivan [place]-Colace Vancomycin Ambien Social History Denies smoking Denies etoh intake Denies use of illicit drugs Has been in SNF Physical Exam Vital Signs Vital Signs Date Time Temp Pulse Resp B/P Pulse Ox O2 Delivery O2 Flow Rate FiO2 04/29/16 07:37 90 65 04/29/16 06:00 66 04/29/16 04:10 93 65 04/29/16 04:00 100.0 68 22 117/62 91 04/29/16 04:00 70 04/29/16 04:00 72 04/29/16 04:00 70 04/29/16 02:00 66 04/29/16 01:05 92 65 04/29/16 00:51 93 65 04/29/16 00:00 99.8 67 22 123/62 94 04/29/16 00:00 70 04/29/16 00:00 67 04/28/16 23:50 95 95 04/28/16 22:20 90 100 04/28/16 22:00 63 04/28/16 21:00 89 100 04/28/16 20:00 85 04/28/16 20:00 99.6 64 22 125/64 91 04/28/16 20:00 64 04/28/16 19:16 90 90 04/28/16 18:00 65 04/28/16 16:00 85 04/28/16 16:00 98.5 65 22 128/65 91 04/28/16 16:00 65 04/28/16 14:17 93 80 04/28/16 14:00 63 04/28/16 12:00 98.4 66 22 125/63 94 04/28/16 12:00 66 04/28/16 12:00 65 04/28/16 11:39 94 100 04/28/16 10:00 69 Physical Exam GENERAL: This is a morbidly obese, well-developed male, sedated, on the vent, not in distress. SKIN: Cool and moist. Generalized rash. No cyanosis noted. HEAD: Atraumatic. Normocephalic. No temporal or scalp tenderness. EYES: [place] conjunctivae. Pupils equal round and reactive. Extraocular motions intact. No scleral icterus. Has mild conjunctival injection bilaterally. ENT: Nose without bleeding, or purulent drainage. Moist mucosa. Has a lot of oral secretions. NECK: Short and obese, trach site with some crusted blood. Supple, no meningeal signs. CARDIOVASCULAR: Regular rate and rhythm without murmurs, gallops, or rubs. Distant heart sounds RESPIRATORY: Decreased BS bilaterally. GASTROINTESTINAL: Abdomen soft, morbidly obese, mo reaction to palpation, not distended. Bowel sounds presentr and hypoactive. Unable to examine for organomegaly opr masses due to size of abdomen. MUSCULOSKELETAL: Extremities without clubbing, cyanosis. Has mild pitting edema. NEUROLOGICAL: Sedated PSYCH: Unable to assess LINE: PICC in RUE, no evidence of infection : [place] in place, urine looks clear Laboratory Laboratory Tests Test 04/28/16 04/29/16 04/29/16 19:40 01:45 04:20 Potassium Level 3.8 3.7 3.7 Magnesium Level 2.3 2.4 White Blood Count 15.3 Red Blood Count 4.76 Hemoglobin 11.3 Hematocrit 35.6 Mean Corpuscular Volume 74.8 Mean Corpuscular Hemoglobin 23.7 Mean Corpuscular Hemoglobin 31.7 Concent Red Cell Distribution Width 19.6 Platelet Count 241 Mean Platelet Volume 8.3 Prothrombin Time 11.4 Prothromb Time International 1.1 Ratio Activated Partial 27.4 Thromboplast Time Sodium Level 142 Chloride Level 99 Carbon Dioxide Level 37.2 Anion Gap 6 Blood Urea Nitrogen 18 Creatinine 0.96 Estimat Glomerular Filtration 91 Rate Random Glucose 140 Calcium Level 9.0 Phosphorus Level 2.2 Date/Time Procedure Status Source Growth 04/27/16 16:35 Gram Stain - Final Resulted Sputum Endotracheal 04/27/16 16:35 Sputum Culture - Preliminary Resulted Gram Negative Rocky 04/26/16 06:55 Urine Culture - Final Complete Urine Catheterized Urine NO GROWTH IN 48 HOURS. 04/24/16 12:35 Aerobic Blood Culture - Preliminary Resulted Blood Peripheral NO GROWTH IN 4 DAYS 04/24/16 12:35 Anaerobic Blood Culture - Preliminary Resulted Blood Peripheral NO GROWTH IN 4 DAYS Result Diagram: 04/29/16 0420 04/29/16 0420 Imaging RADIOLOGY STUDIES/FILMS REVIEWED Chest X-Ray 04/29/16 0600 Signed Impressions: Service Date/Time: Friday, April 29, 2016 03:30 - CONCLUSION: 1. Stable bibasilar consolidative infiltrates. 2. Some coiling of the PICC line since prior exam with the tip of the PIC line now at the level of the origin of the superior vena cava. Jeremiah Tuttle MD Abdomen X-Ray 04/29/16 0000 Signed Impressions: Service Date/Time: Friday, April 29, 2016 07:12 - CONCLUSION: Suspect Dobbhoff tube in the distal stomach. Garcia Lujan MD Assessment and Plan Assessment and Plan IMPRESSION Chronic respiratory failure, has trach, has HCAP - C/S with GNR (?MDR PSAE) Low grade temps Leukocytosis, due to PNA, and partly due to steroids Morbid obesity Hx PE RECOMMENDATION Change Zosyn to Zerbaxa while C/S pedning Continue Levaquin and Vanco for now Follow C/S and deescalate Abx Monitor progress Follow CBC Waiting for trach revision I will follow along with you Thank you for this consultation Discussed Condition With D/W Dana Rollins MD Apr 29, 2016 09:39
[2016-04-29] MEDS: POTASSIUM PHOSPHATE INJ 30 MMOL in SODIUM CHLOR 0.9% 250 ML INJ 250 ML IV PRN (09:40)
--- NOTE | 2016-04-29 11:18 | HHI.CCPN ---
Subjective Remarks/Hospital Course 04/24: Wilfrido Fortune is a 31 year old male with past medical history of chronic respiratory failure s/p tracheostomy 4 years ago, super morbid obesity (BMI 68) , atrial fibrillation and pulmonary embolism on Xarelto, COPD, CHF and h/o HTN. Patient presented from [facility] with low oxygen saturation apparently his oxygen saturation was 82% on RA. He was placed back on 6L of oxygen via his trach mask and given a breathing treatment, initially improved however he started drifting back to low 80s again. Apparently patient had been getting treatment for pneumonia at the rehabilitation facility. In the ER chest x-ray showed bibasilar infiltrates and pulmonary edema. Patient was admitted to the [facility] service and was started on IV steroids IV vancomycin and Zosyn and Levaquin for healthcare associated pneumonia. ABG after admission was pH of 7.42 PCO2 of 61 and PO2 55. Repeat ABG at 5 PM showed pH of 7.26 PCO2 of 85 and PO2 of 70 and patient was started on BiPAP by the [facility]. ABG at 10:15 showed worsening CO2 retention with pH 7.16 PCO2 108 and PO2 of 98. At that time critical care medicine was consulted After receiving the consult, Dr. Zelaya immediately ordered placement on for full mechanical ventilatory support and starting sedation for ventilator synchrony. Dr. Zelaya evaluated the patient in ICU. After starting ACV, patient was more awake but there was a significant amount of air leak around his tracheostomy. Patient has a Shiley 6.0 Proximal XLT, but the forensic analyst balloon had been cut off. Vent settings changed from ACV to pressure control with inspiratory pressure of 25, which improved the tidal volume he was receiving. General surgery consulted for trach exchange in a.m. Solu-Medrol increased to 60 mg IV every 6 hours after 125 mg bolus. Additional 2 mg IV Bumex had been ordered. Scheduled and when necessary breathing treatment ordered. 04/25: Patient remains on mechanical ventilation via tracheostomy. Discussed with Dr. Dannie arrieta from general surgery. He inflated air in the cuff using a Seldinger needle and then applied a hemostat with which cuff appeared to stay inflated and patient started volume improved. He plans to change out tracheostomy once patient is a little more stable in the next 24-48 hours in the OR. 04/26: Afebrile. Tracheostomy cuff remains inflated, with hemostat secured. Tidal volumes greater than 400 cc. Patient continues on fentanyl and propofol infusions, with a RASS score of 0. Patient complains of discomfort in bed, requesting larger more comfortable bed. FiO2 decreased to 80% this a.m., with close monitoring to be trended with O2 sat of 94% discussion with Dr. Arrieta this a.m.. The patient is still too unstable secondary to respiratory insufficiency to go to the OR today, will begin therapeutic anticoagulation today secondary to history of PE and other risk factors. 04/27: Afebrile. Tmax 97.6. Overnight the patient required increasing O2 concentrations. Patient's trach cuff required reinflation 2 overnight, maintaining volumes 400-500 cc per breath. The patient's FiO2 currently is 1.0 , O2 sat 94-96%. The patient received PICC line yesterday secondary to difficult IV access and nutrition requirements, will begin PPN tonight. The patient remains optimally sedated for ventilator's synchrony, and minimization of agitation. Currently requirements include propofol Versed and fentanyl infusions. 04/28: Tmax 98.7. The patient still requires and increasing O2 concentrations, Flolan initiated last night FiO2 was significantly decreased to 60% ,however this a.m. patient's O2 sat remained mid 80s with a requirement of increasing PEEP to 11 and FiO2 return to 100% currently aggressively utilizing recruitment maneuvers to decrease O2 and PEEP requirements for transfer to the OR tomorrow for exchange of tracheostomy apparatus. The patient continues to be sedated for patient safety and ventilator synchrony. 04/29:Tmax 100.0. Overnight the patient was diuresed approximately 5 L. The patient continues on a Lasix infusion. The FiO2 was significantly decrease post diuresis to 0.65, the patient continues on a PEEP of 12 with O2 saturations 93-94%. Successful placement of Dobbhoff tube, early this a.m. we' ll begin tube feeds this a.m. and discontinue PPN. General Surgery contacted this a.m. regarding tracheostomy exchange for scheduled time. Patient's Lovenox is held for OR, will place on heparin infusion, procedures time is scheduled for later today. The patient continues to be on sedation for safety to prevent dislodgment out tracheostomy tube. Radiological imaging studies reveal a loop and PICC line, will reconsult PICC team. Objective - Vital Signs Date Time Temp Pulse Resp B/P Pulse Ox O2 Delivery O2 Flow Rate FiO2 04/29/16 10:00 77 04/29/16 08:00 99.8 22 129/68 99 04/29/16 08:00 70 Intake and Output 04/28/16 04/28/16 04/29/16 08:00 16:00 00:00 Intake Total 1374 ml 1281 ml 1325 ml Output Total 400 ml 2300 ml 825 ml Balance 974 ml -1019 ml 500 ml Result Diagram: 04/29/16 0420 04/29/16 0910 Other Results Laboratory Tests Test 04/29/16 04/29/16 04/29/16 01:45 04:20 09:10 Potassium Level 3.7 MEQ/L 3.7 MEQ/L 5.0 MEQ/L (3.5-5.1) (3.5-5.1) (3.5-5.1) Magnesium Level 2.3 MG/DL 2.4 MG/DL (1.5-2.5) (1.5-2.5) White Blood Count 15.3 TH/MM3 (4.0-11.0) Red Blood Count 4.76 MIL/MM3 (4.50-5.90) Hemoglobin 11.3 GM/DL (13.0-17.0) Hematocrit 35.6 % (39.0-51.0) Mean Corpuscular Volume 74.8 FL (80.0-100.0) Mean Corpuscular Hemoglobin 23.7 PG (27.0-34.0) Mean Corpuscular Hemoglobin 31.7 % Concent (32.0-36.0) Red Cell Distribution Width 19.6 % (11.6-17.2) Platelet Count 241 TH/MM3 (150-450) Mean Platelet Volume 8.3 FL (7.0-11.0) Prothrombin Time 11.4 SEC (9.8-11.4) Prothromb Time International 1.1 RATIO Ratio Activated Partial 27.4 SEC Thromboplast Time (22.6-28.8) Sodium Level 142 MEQ/L (136-145) Chloride Level 99 MEQ/L (98-107) Carbon Dioxide Level 37.2 MEQ/L (21.0-32.0) Anion Gap 6 MEQ/L (5-15) Blood Urea Nitrogen 18 MG/DL (7-18) Creatinine 0.96 MG/DL (0.60-1.30) Estimat Glomerular Filtration 91 ML/MIN (>89) Rate Random Glucose 140 MG/DL (74-106) Calcium Level 9.0 MG/DL (8.5-10.1) Phosphorus Level 2.2 MG/DL (2.5-4.9) Laboratory Tests Test 04/28/16 04/28/16 05:05 05:10 Blood Gas Puncture Site PICC LINE Blood Gas Patient Temperature 98.6 Venous Blood pH 7.47 (7.360-7.400) Venous Blood Partial Pressure 48 mmHg (44-48) CO2 Venous Blood Partial Pressure 48 mmHg (35-40) O2 Venous Blood HCO3 35 mmol/L (22-26) Venous Blood Oxygen Saturation 79 % (70-76) Venous Blood Oxygen Content 12.4 Vol % (9.0-17.0) Venous Blood Base Excess 10.2 mmol/L (-2-2) Oxygen Delivery Device VENTILATOR Blood Gas Ventilator Setting PRVC/AC Blood Gas Inspired Oxygen 60 % White Blood Count 13.5 TH/MM3 (4.0-11.0) Red Blood Count 4.65 MIL/MM3 (4.50-5.90) Hemoglobin 10.9 GM/DL (13.0-17.0) Hematocrit 34.8 % (39.0-51.0) Mean Corpuscular Volume 74.8 FL (80.0-100.0) Mean Corpuscular Hemoglobin 23.3 PG (27.0-34.0) Mean Corpuscular Hemoglobin 31.2 % Concent (32.0-36.0) Red Cell Distribution Width 19.6 % (11.6-17.2) Platelet Count 274 TH/MM3 (150-450) Mean Platelet Volume 8.2 FL (7.0-11.0) Sodium Level 139 MEQ/L (136-145) Potassium Level 3.2 MEQ/L (3.5-5.1) Chloride Level 94 MEQ/L (98-107) Carbon Dioxide Level 34.9 MEQ/L (21.0-32.0) Anion Gap 10 MEQ/L (5-15) Blood Urea Nitrogen 18 MG/DL (7-18) Creatinine 0.79 MG/DL (0.60-1.30) Estimat Glomerular Filtration 114 ML/MIN Rate (>89) Random Glucose 140 MG/DL (74-106) Calcium Level 8.3 MG/DL (8.5-10.1) Phosphorus Level 2.9 MG/DL (2.5-4.9) Magnesium Level 1.8 MG/DL (1.5-2.5) Laboratory Tests Test 04/24/16 04/24/16 04/24/16 04/24/16 12:11 12:35 12:40 13:50 Blood Gas Puncture Site LT RADIAL Blood Gas Patient Temperature 98.6 Blood Gas HCO3 39 mmol/L Blood Gas Base Excess 13.9 mmol/L Blood Gas Oxygen Saturation 84 % Arterial Blood pH 7.42 Arterial Blood Partial 61 mmHg Pressure CO2 Arterial Blood Partial 55 mmHG Pressure O2 Arterial Blood Oxygen Content 15.3 Vol % Arterial Blood 2.0 % Carboxyhemoglobin Arterial Blood Methemoglobin 2.1 % Blood Gas Hemoglobin 12.9 G/DL Oxygen Delivery Device MASK Blood Gas Liter Flow 6 L/M Blood Gas Inspired Oxygen 50 % White Blood Count 12.1 TH/MM3 Red Blood Count 5.31 MIL/MM3 Hemoglobin 12.5 GM/DL Hematocrit 40.4 % Mean Corpuscular Volume 76.2 FL Mean Corpuscular Hemoglobin 23.6 PG Mean Corpuscular Hemoglobin 31.0 % Concent Red Cell Distribution Width 19.2 % Platelet Count 355 TH/MM3 Mean Platelet Volume 8.0 FL Neutrophils (%) (Auto) 75.1 % Lymphocytes (%) (Auto) 16.2 % Monocytes (%) (Auto) 6.9 % Eosinophils (%) (Auto) 1.0 % Basophils (%) (Auto) 0.8 % Neutrophils # (Auto) 9.1 TH/MM3 Lymphocytes # (Auto) 2.0 TH/MM3 Monocytes # (Auto) 0.8 TH/MM3 Eosinophils # (Auto) 0.1 TH/MM3 Basophils # (Auto) 0.1 TH/MM3 CBC Comment AUTO DIFF Differential Comment AUTO DIFF CONFIRMED Polychromasia 2.1 % Prothrombin Time 14.2 SEC Prothromb Time International 1.4 RATIO Ratio Activated Partial 30.3 SEC Thromboplast Time Sodium Level 135 MEQ/L Potassium Level 4.2 MEQ/L Chloride Level 95 MEQ/L Carbon Dioxide Level 37.4 MEQ/L Anion Gap 3 MEQ/L Blood Urea Nitrogen 21 MG/DL Creatinine 1.00 MG/DL Estimat Glomerular Filtration 87 ML/MIN Rate Random Glucose 86 MG/DL Calcium Level 8.9 MG/DL Total Creatine Kinase 77 U/L Troponin I LESS THAN 0.02 NG/ML B-Type Natriuretic Peptide 419 PG/ML Lactic Acid Level 1.1 mmol/L Test 04/24/16 04/24/16 04/24/16 04/24/16 16:52 18:00 19:10 20:25 Blood Gas Puncture Site RT RADIAL Blood Gas Patient Temperature 98.6 Blood Gas HCO3 37 mmol/L Blood Gas Base Excess 9.5 mmol/L Blood Gas Oxygen Saturation 86 % Arterial Blood pH 7.26 Arterial Blood Partial 85 mmHg Pressure CO2 Arterial Blood Partial 70 mmHG Pressure O2 Arterial Blood Oxygen Content 15.2 Vol % Arterial Blood 1.6 % Carboxyhemoglobin Arterial Blood Methemoglobin 2.3 % Blood Gas Hemoglobin 12.6 G/DL Oxygen Delivery Device MASK Blood Gas Liter Flow 6 L/M Blood Gas Inspired Oxygen 50 % Urine Color YELLOW Urine Turbidity CLEAR Urine pH 5.5 Urine Specific Gonzales 1.009 Urine Protein NEG mg/dL Urine Glucose (UA) NEG mg/dL Urine Ketones NEG mg/dL Urine Occult Blood NEG Urine Nitrite NEG Urine Bilirubin NEG Urine Urobilinogen LESS THAN 2.0 MG/DL Urine Leukocyte Esterase NEG Urine RBC LESS THAN 1 /hpf Urine WBC 1 /hpf Urine Squamous Epithelial <1 /hpf Cells Urine Mucus FEW /lpf Microscopic Urinalysis Comment CULT NOT INDICATED Troponin I LESS THAN 0.02 NG/ML Nasal Screen MRSA (PCR) NEGATIVE Test 04/24/16 04/24/16 04/25/16 04/25/16 21:39 22:14 05:02 12:47 Total Creatine Kinase 79 U/L 127 U/L Sodium Level 139 MEQ/L 138 MEQ/L Potassium Level 4.1 MEQ/L 4.1 MEQ/L Chloride Level 97 MEQ/L 94 MEQ/L Carbon Dioxide Level 33.7 MEQ/L 35.7 MEQ/L Anion Gap 8 MEQ/L 8 MEQ/L Blood Urea Nitrogen 23 MG/DL 23 MG/DL Creatinine 1.02 MG/DL 0.97 MG/DL Estimat Glomerular Filtration 85 ML/MIN 90 ML/MIN Rate Random Glucose 132 MG/DL 123 MG/DL Calcium Level 8.6 MG/DL 8.1 MG/DL Troponin I LESS THAN 0.02 0.04 NG/ML NG/ML Vancomycin Level Trough 14.0 MCG/ML Blood Gas Puncture Site LT RADIAL LT RADIAL Blood Gas Patient Temperature 98.6 98.6 Blood Gas HCO3 37 mmol/L 34 mmol/L Blood Gas Base Excess 8.0 mmol/L 9.2 mmol/L Blood Gas Oxygen Saturation 92 % 92 % Arterial Blood pH 7.16 7.40 Arterial Blood Partial 108 mmHg 56 mmHg Pressure CO2 Arterial Blood Partial 96 mmHg 73 mmHg Pressure O2 Arterial Blood Oxygen Content 17.1 Vol % 15.5 Vol % Arterial Blood 1.0 % 1.3 % Carboxyhemoglobin Arterial Blood Methemoglobin 1.1 % 1.1 % Blood Gas Hemoglobin 13.2 G/DL 12.0 G/DL Oxygen Delivery Device BIPAP VENTILATOR Blood Gas Ventilator Setting IPAP18/[id number] PC/AC Blood Gas Inspired Oxygen 100 % 100 % White Blood Count 8.9 TH/MM3 Red Blood Count 4.78 MIL/MM3 Hemoglobin 11.7 GM/DL Hematocrit 36.1 % Mean Corpuscular Volume 75.4 FL Mean Corpuscular Hemoglobin 24.4 PG Mean Corpuscular Hemoglobin 32.3 % Concent Red Cell Distribution Width 19.1 % Platelet Count 306 TH/MM3 Mean Platelet Volume 8.0 FL Neutrophils (%) (Auto) 92.9 % Lymphocytes (%) (Auto) 6.2 % Monocytes (%) (Auto) 0.4 % Eosinophils (%) (Auto) 0.0 % Basophils (%) (Auto) 0.5 % Neutrophils # (Auto) 8.3 TH/MM3 Lymphocytes # (Auto) 0.6 TH/MM3 Monocytes # (Auto) 0.0 TH/MM3 Eosinophils # (Auto) 0.0 TH/MM3 Basophils # (Auto) 0.0 TH/MM3 CBC Comment AUTO DIFF Differential Comment AUTO DIFF CONFIRMED Creatine Kinase MB 1.9 NG/ML B-Type Natriuretic Peptide 151 PG/ML Test 04/26/16 04/26/16 04/26/16 00:00 06:55 07:10 Vancomycin Level Trough 16.7 MCG/ML Urine Color YELLOW Urine Turbidity CLOUDY Urine pH 6.0 Urine Specific Gonzales 1.041 Urine Protein 30 mg/dL Urine Glucose (UA) NEG mg/dL Urine Ketones NEG mg/dL Urine Occult Blood TRACE Urine Nitrite NEG Urine Bilirubin NEG Urine Urobilinogen LESS THAN 2.0 MG/DL Urine Leukocyte Esterase MOD Urine RBC 25 /hpf Urine WBC 8 /hpf Urine WBC Clumps RARE Urine Transitional Epithelial 1 /hpf Cells Urine Amorphous Sediment OCC Urine Bacteria OCC /hpf Microscopic Urinalysis Comment CATH-CULTURE IND White Blood Count 14.1 TH/MM3 Red Blood Count 5.13 MIL/MM3 Hemoglobin 12.2 GM/DL Hematocrit 38.3 % Mean Corpuscular Volume 74.6 FL Mean Corpuscular Hemoglobin 23.7 PG Mean Corpuscular Hemoglobin 31.8 % Concent Red Cell Distribution Width 19.6 % Platelet Count 279 TH/MM3 Mean Platelet Volume 8.2 FL Neutrophils (%) (Auto) 94.2 % Lymphocytes (%) (Auto) 3.1 % Monocytes (%) (Auto) 2.3 % Eosinophils (%) (Auto) 0.0 % Basophils (%) (Auto) 0.4 % Neutrophils # (Auto) 13.3 TH/MM3 Lymphocytes # (Auto) 0.4 TH/MM3 Monocytes # (Auto) 0.3 TH/MM3 Eosinophils # (Auto) 0.0 TH/MM3 Basophils # (Auto) 0.1 TH/MM3 CBC Comment AUTO DIFF Hematology Comments Laboratory Tests Test 04/24/16 04/25/16 22:14 05:02 Blood Gas Puncture Site LT RADIAL LT RADIAL Blood Gas Patient Temperature 98.6 98.6 Blood Gas HCO3 37 mmol/L 34 mmol/L (22-26) (22-26) Blood Gas Base Excess 8.0 mmol/L 9.2 mmol/L (-2-2) (-2-2) Blood Gas Oxygen Saturation 92 % (90-100) 92 % (90-100) Arterial Blood pH 7.16 7.40 (7.380-7.420) (7.380-7.420) Arterial Blood Partial 108 mmHg 56 mmHg (38-42) Pressure CO2 (38-42) Arterial Blood Partial 96 mmHg 73 mmHg Pressure O2 (61-120) (61-120) Arterial Blood Oxygen Content 17.1 Vol % 15.5 Vol % (12.0-20.0) (12.0-20.0) Arterial Blood 1.0 % (0-4) 1.3 % (0-4) Carboxyhemoglobin Arterial Blood Methemoglobin 1.1 % (0-2) 1.1 % (0-2) Blood Gas Hemoglobin 13.2 G/DL 12.0 G/DL (12.0-16.0) (12.0-16.0) Oxygen Delivery Device BIPAP VENTILATOR Blood Gas Ventilator Setting [id number]/[id number] PC/AC Blood Gas Inspired Oxygen 100 % 100 % Imaging Last 24 hours Impressions Chest X-Ray 04/29/16599 Signed Impressions: Service Date/Time: Friday, April 29, 2016 03:30 - CONCLUSION: 1. Stable bibasilar consolidative infiltrates. 2. Some coiling of the PICC line since prior exam with the tip of the PIC line now at the level of the origin of the superior vena cava. Jeremiah Tuttle MD Abdomen X-Ray 04/29/16 0000 Signed Impressions: Service Date/Time: Friday, April 29, 2016 07:12 - CONCLUSION: Suspect Dobbhoff tube in the distal stomach. Garcia Lujan MD Last 24 hours Impressions Chest X-Ray 04/27/16599 Signed Impressions: Service Date/Time: Wednesday, April 27, 2016 03:51 - CONCLUSION: 1. Tracheostomy tube in place. No pneumothorax. 2. Pulmonary venous congestion with some bibasilar infiltrates. Lázaro Frankel MD Objective Remarks GENERAL: Lying in bed, on mech vent via trach in situ, currently sedated SKIN: Warm and dry. HEAD: Normocephalic. Atraumatic. EYES: PERRL. No scleral icterus. No injection or drainage. ENT: No nasal drainage. Oral and nasal mucosa moist NECK: Shiley 6.0 Proximal XLT, the forensic analyst balloon off, inflated and secured with hemostat. CARDIOVASCULAR: Regular rate and rhythm without murmurs, gallops, or rubs. RESPIRATORY: On mechanical ventilation via tracheostomy. Maintenance of tidal volumes 400-500 cc currently. Air entry decreased bilaterally at bases. No wheezing, diminished throughout bilaterally. GASTROINTESTINAL: Abdomen soft, non-tender, obese, normal BS. NEURO: Optimal sedation with a RASS -2 on mechanical ventilation, on fentanyl, Versed and propofol infusion, to maintain ventilator synchrony. Urinary Catheter: Yes Milan insert reason: ICU Pt Getting Diuretics Date of Insertion: Apr 24, 2016 Vascular Central Line Catheter: Yes (vascular access) Date of Insertion: Apr 26, 2016 Line: PICC Side: Right A/P Assessment and Plan ASSESSMENT Acute hypercapnic and hypoxemic respiratory failure Healthcare associated pneumonia Sepsis CHF exacerbation CO2 narcosis Tracheostomy forensic analyst balloon damage Chronic Respiratory Failure s/p Tracheostomy 4 years ago (Shiley 6.0 Proximal XLT) COPD/obesity hypoventilation syndrome Morbid Obesity BMI 67 History of pulmonary embolism 4 years ago Chronic atrial fibrillation Anxiety CHF (Echo 2013 EF 40-45%; ECHO 08/2015 showing a grossly normal systolic function) Hypertension 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 Keep RASS -2 - Tracheostomy exchange planned for today RESP: Acute hypercapnic and hypoxemic respiratory failure Healthcare associated pneumonia Tracheostomy forensic analyst balloon damage (Shiley 6.0 Proximal XLT) Chronic Respiratory Failure s/p Tracheostomy 4 years ago COPD/obesity hypoventilation syndrome History of pulmonary embolism 4 years ago Leukocytosis -Continue mechanical ventilation PC/AC rate 18, Insp pres 25, PEEP 12 Fio2 .70 , after aggressive diuresis. Titrate to keep SaO2 >90%. -Flolan initiated 04/27 -VBG-7.47/48/48/35/10.2 early this a.m. on FiO2 of 1.0, continue attempts at weaning-Aggressive diuresis -Gen. surgery consulted for tracheostomy tube exchange. Discussed with Dr. Dannie Arrieta on . He plans to do the tracheostomy exchange in the OR . In the meanwhile cuff was inflated using a syringe and needle and subsequently hemostat used to clamp tubing to retain air in the cuff. -Healthcare associated pneumonia is being treated with IV Vancomycin,Zerbaxa and Levaquin, ID consulted follow-up recommendations -Sputum culture revealed 04/28 many gram-negative rods -Follow-up blood culture -DuoNeb every 4 hours scheduled - Pulmicort BID (home med) -Continue IV Solu-Medrol to 60 mg every 6 hours -Continue to hold Xarelto in view of planned tracheostomy exchange . - Continue therapeutic Lovenox for full anticoagulation 150 mg/12 hr starting , on hold today for anticipated tracheostomy exchange in the OR on Friday. We will begin heparin infusion, as scheduled later today. -Chest x-ray bibasilar infiltrates unchanged CV: CHF exacerbation Pulmonary edema Chronic atrial fibrillation -Aggressive diuresis 5.6 L last 24 hours -Lasix infusion 5 mg/hour we'll monitor potassium every 6 hours - A. fib rate controlled -IV to KVO GI: Super morbid obesity with BMI of 68 -Nothing by mouth. - PPN discontinued. Dobbhoff tube placed. -Begin tubefeeds Glucerna 30/hr -IV Protonix -SSI per ICU protocol : -BMP every 6 hours -Monitor renal function closely. -Lasix infusion 5mg/hr - Milan catheter - Strict I&O ID: Healthcare associated pneumonia Sepsis -WBC count elevated at 15.3 today from 13.5, persistent mild leukocytosis -Continue IV vancomycin, Zebaxa (Day 1)and Levaquin - Blood urine and blood culture NGTD -Wound culture Pseudomonas -Sputum culture-04/28 many gram-negative rods -ID consulted, follow-up recommendations HEME: History of PE on chronic anticoagulation with Xarelto -Monitor CBC, CMP, coags -Xarelto for PE 4 yrs ago. -Hold Xarelto. -Lovenox therapeutic starting 04/26 , will hold, when schedule for tracheostomy exchange in OR. -We'll begin heparin infusion today, a tracheostomy tube exchange is scheduled for later today ENDO: Hypothyroidism -Electrolyte replacement protocol -Continue levothyroxine 25 mcgs IV daily PROPH: -Bilateral lower extremity SCDs. Lovenox DVT prophylaxis. IV Protonix for GI prophylaxis LINES: - PICC line (day 4) noted loop in right IJ, PICC team reconsult Therapeutic anticoagulation has been held for 24 hours(04/28) in anticipation of exchange, 04/29. Will begin heparin infusion, dependent on general surgery scheduling. Having a tracheostomy balloon without cuff, is more a wrist with hypoxic respiratory failure. Emergency tracheostomy exchange is is recommended , as it is unsafe to leave with him in current situation, discussed with Dr. Dannie Arrieta on 04/28. Per Dr. Arrieta's recommendation contacted Dr. Espinosa and made him aware of the situation. Plan for general surgery to exchange tracheostomy today. This patient remains critically ill with one or more organ systems which are or may become a threat to life. I have spent in excess of 67 minutes discontinuously in the care and management of this patient. This time is exclusive of procedures, and includes, but is not limited to, evaluation of the patient, review of the medical record, discussions with family, consultants, nursing staff, or respiratory therapy, and documentation in the medical record. Discussed patient with RN at bedside. Physician Juana Cisneros MD Apr 29, 2016 11:18
[2016-04-29] MEDS: VANCOMYCIN INJ 2,000 MG in SODIUM CHLORID 0.9% 500 ML INJ 500 ML IV SCH ×2 (11:34→23:10)
[2016-04-29] MEDS: CEFTOLOZANE-TAZOBACTAM INJ 1,500 MG in SODIUM CHLORIDE 0.9% INJ 100 ML IV SCH ×2 (11:54→20:43)
[2016-04-29 14:17] LABS: BLOOD GAS VENOUS BASE EXCESS 8.9 mmol/L (-2-2); BLOOD GAS VENOUS HCO3 34 mmol/L (22-26); BLOOD GAS VENOUS O2 CONTENT 11.2 Vol % (9.0-17.0); BLOOD GAS VENOUS O2 HGB SAT 72 % (70-76); BLOOD GAS VENOUS PCO2 58 mmHg (44-48); BLOOD GAS VENOUS PO2 44 mmHg (35-40); BLOOD GAS VENOUS pH 7.39 (7.360-7.400); TEMP CORR TO 98.6
[2016-04-29 14:19] LABS: CRITICAL VALUE YES; FIO2 70 %; OXYGEN DEVICE VENTILATOR; VENT SETTINGS SEE COMMENTS
[2016-04-29 14:20] LABS: DRAW SITE PICC LINE; STAT NO
--- NOTE | 2016-04-29 15:00 | HHI.FPPN ---
Subjective Remarks Tmax over past 24 hours 100.0F taken axillary. Patient was started on a Lasix drip. Has had 8550 mL of UOP over past 24 hours and rosa. 5L overnight. Patient remains sedated this AM. An NG was placed this AM to begin tube feeds. FiO2 currently at 65% with O2 saturations 90% or slightly above. PEEP was required to be increased to 12. (Brandon Canales MD R1) Objective Vitals Vital Signs Date Time Temp Pulse Resp B/P Pulse Ox O2 Delivery O2 Flow Rate FiO2 04/29/16 14:00 94 04/29/16 12:00 76 04/29/16 12:00 70 04/29/16 12:00 99.6 76 22 130/60 90 04/29/16 11:15 91 70 04/29/16 10:00 77 04/29/16 08:00 99.8 73 22 129/68 99 04/29/16 08:00 70 04/29/16 08:00 72 04/29/16 07:37 90 65 04/29/16 06:00 66 04/29/16 04:10 93 65 04/29/16 04:00 100.0 68 22 117/62 91 04/29/16 04:00 70 04/29/16 04:00 72 04/29/16 04:00 70 04/29/16 02:00 66 04/29/16 01:05 92 65 04/29/16 00:51 93 65 04/29/16 00:00 99.8 67 22 123/62 94 04/29/16 00:00 70 04/29/16 00:00 67 04/28/16 23:50 95 95 04/28/16 22:20 90 100 04/28/16 22:00 63 04/28/16 21:00 89 100 04/28/16 20:00 85 04/28/16 20:00 99.6 64 22 125/64 91 04/28/16 20:00 64 04/28/16 19:16 90 90 04/28/16 18:00 65 04/28/16 16:00 85 04/28/16 16:00 98.5 65 22 128/65 91 04/28/16 16:00 65 I/O 04/28/16 04/28/16 04/28/16 04/29/16 04/29/16 10/31/16 07:00 15:00 23:00 07:00 15:00 23:00 Intake Total 1374 ml 1281 ml 1325 ml 3811 ml Output Total 400 ml 2300 ml 725 ml 5525 ml 1750 ml Balance 974 ml -1019 ml 600 ml -5525 ml 2061 ml IV Total 1374 ml 1281 ml 1176 ml 3226 ml TPN/PPN 149 ml 585 ml Output Urine Total 400 ml 2300 ml 725 ml 5525 ml 1750 ml # Bowel Movements 0 (Brandon Canales MD R1) Result Diagram: 04/29/16 0420 04/29/16 0910 Objective Remarks GENERAL: Sedated in bed SKIN: Warm and dry. No rashes or lesions. HEAD: Normocephalic. Atraumatic. ENT: No nasal drainage. Tracheotomy site is clean and dry without drainage. NECK: No JVD. CARDIOVASCULAR: Regular rate and rhythm without murmurs, gallops, or rubs. Peripheral pulses 2+. RESPIRATORY: On mechanical ventilation. Scattered wheezing throughout. GASTROINTESTINAL: Abdomen soft, non-tender, obese, normal BS. Unable to assess for organomegaly or masses. MUSCULOSKELETAL: Lower extremities still appearing edematous possibly slightly improved from prior examination NEURO: Sedated. (Brandon Canales MD R1) Date of Insertion: Apr 24, 2016 (Brandon Canales MD R1) Date of Insertion: Apr 26, 2016 Line: PICC Side: Right (Brandon Canales MD R1) A/P Assessment and Plan 31 year old male with a PMH of chronic respiratory failure s/p tracheostomy 4 years ago, morbid obesity with BMI 67.6, atrial fibrillation and pulmonary embolism on Xarelto, CHF, and h/o HTN in long-term rehab at [facility] presented to the ED after having low oxygen saturation at 82% on RA. He is admitted for shortness of breath likely secondary to a combination of HCAP, COPD exacerbation and CHF exacerbation. Critical care is on board. Discharge Planning Unclear timetable at this time. (Brandon Canales MD R1) Attending Attestation Patient seen and examined with the resident team. Case reviewed and discussed Agree with plan of care as discussed with me and documented in the resident note. (Bernice Garcia MD) Problem List: (1) On mechanically assisted ventilation Status: Acute Plan: Critical care consulted due to worsening CO2 retention and respiratory acidosis Patient placed on mechanical ventilation on 04/24, FiO2 now weaned to 65% with PEEP 12 General surgery consulted for a trach exchange as patients trach was found to have a leak. Patient will need a trach exchange as soon as possible if patient is to improve with respiratory function. GS planning for trach exchange tentative given patient continuing to need increased PEEP; will need continual reassessment Continue Solumedrol 60 mg IV q6h (2) HCAP (healthcare-associated pneumonia) Status: Acute Plan: Afebrile, pulse wnls Leukocytosis 15.3 on steroids Repeat ABG on 04/26 showed improvement with CO2 56 with pH 7.40 VBG obtained via PICC with CO2 of 58, pH 7.39 CXR showing markedly enlarged heart, generalized interstitial vascular congestion, and no evidence of a consolidating airspace disease 04/24 BCx NG1D CXR 04/29 showing stable bibasilar consolidative infiltrates Sputum culture growing pseudomonas - Started Zerbaxa given pseudomonas growing in culture - Continue with Vancomycin 2gm IV q12h, Levaquin 750mg IV q24h (Started 04/24) - Zosyn 4.5gm IV q6h (04/24 - dced 04/29) - Duonebs q4h (3) T wave inversion in EKG Status: Acute Plan: T-wave inversions seen in leads V2-V6 on initial EKG Prior EKG from a previous admission only with evidence of T-wave inversion in lead V2 Repeat EKG during this hospitalization with previously seen T-wave changes improved Troponin x 3 <0.02 (4) CHF (congestive heart failure) Status: Chronic Plan: Last ECHO 09/18/2015 showing a grossly normal systolic function with no definitive EF as it was difficult to assess, ECHO on 05/2014 with EF of 40-45% with mildly dilated left atrium 04/25 ECHO was limited due to poor image quality, EF could not be adequately estimated. Systolic function appears to be grossly normal. BNP on admission 419, repeat BNP 151 Started on Lasix IV drip; monitor I&Os (5) Atrial fibrillation Status: Chronic Plan: Last EKG in sinus rhythm RRR on exam Home dose of Xarelto 20 mg po daily has been held in anticipation of surgery. (6) Tracheostomy present Status: Chronic Plan: General surgery consulted for trach exchange given current trach with leak. Xarelto and Lovenox have been held in anticipation of surgery GS plans for tracheostomy exchange to a new one with a working cuff once ventilator settings are weaned down. * Continue to inflate cuff on PRN basis. (7) HTN (hypertension) Status: Chronic Plan: BPs stable Hold home BP medications Vitals q4h (8) Morbid obesity with BMI of 60.0-69.9, adult Status: Chronic Plan: Likely contributing to chronic respiratory issues (9) Hypothyroidism Status: Chronic Plan: Synthroid 25 mcg IV daily (10) Nutrition, metabolism, and development symptoms Status: Acute Plan: Fluids: none Electrolytes: Monitor and replete when necessary per protocol Nutrition: NG tube successfully placed to start tube feeds, PPN discontinued DVT PPx: Started heparin drip. Holding Lovenox and Xarelto sdw Dr. Garcia, Dr. Jasmin Almanza, and Rosie Abel, MS4 (Brandon Canales MD R1) Problem Qualifiers (1) CHF (congestive heart failure): Qualified Code: I50.9 - Acute on chronic congestive heart failure, unspecified congestive heart failure type (2) Atrial fibrillation: Qualified Code: I48.2 - Chronic atrial fibrillation (3) HTN (hypertension): Qualified Code: I10 - Essential hypertension (4) Hypothyroidism: Qualified Code: E03.9 - Hypothyroidism, unspecified type Brandon Canales MD R1 Apr 29, 2016 15:00 Bernice Garcia MD Apr 30, 2016 08:53
[2016-04-29 16:06] LABS: HEMATOCRIT 34.4 % (39.0-51.0); MEAN CELL VOLUME 75.8 FL (80.0-100.0); MEAN CORPUSCULAR HEMOGLOBIN 23.5 PG (27.0-34.0); PLATELET COUNT 209 TH/MM3 (150-450); RED BLOOD COUNT 4.54 MIL/MM3 (4.50-5.90); RED CELL DISTRIBUTION WIDTH 19.8 % (11.6-17.2); WHITE BLOOD COUNT 15.3 TH/MM3 (4.0-11.0)
[2016-04-29 16:09] LABS: REVIEW FLAG FINAL
[2016-04-29] MEDS: fentaNYL DRIP 250 ML IV SCH ×2 (16:12→20:42)
[2016-04-29 16:13] LABS: APTT (PATIENT) 26.4 SEC (22.6-28.8); INTERNATIONAL NORMALIZED RATIO 1.1 RATIO
[2016-04-29] MEDS: HEPARIN-D5W INJ 250 ML IV SCH (17:32)
[2016-04-29] MEDS: LEVOFLOXACIN 750 MG PREMIX INJ 150 ML IV SCH (17:51)
[2016-04-29 18:30] LABS: POTASSIUM 3.5 MEQ/L (3.5-5.1)
[2016-04-30] VITALS (18 sets, daily range): BP systolic 120–137; BP diastolic 60–69; PULSE 62–67; RESP 22; TEMP 99.5–100.6; O2SAT 90–93
[2016-04-30 00:44] LABS: APTT (PATIENT) 29.7 SEC (22.6-28.8)
[2016-04-30] MEDS: PROPOFOL 1000 MG/100 ML INJ 100 ML IV SCH ×13 (01:42→23:27)
[2016-04-30] MEDS: CEFTOLOZANE-TAZOBACTAM INJ 1,500 MG in SODIUM CHLORIDE 0.9% INJ 100 ML IV SCH ×3 (03:01→21:00)
[2016-04-30] MEDS: MIDAZOLAM 100 MG/NS 100 ML DRIP Premix IV SCH ×3 (03:02→23:26)
[2016-04-30] MEDS: methylPREDNISolone SOD SUCC 40 MG/1 ML VIAL IV PUSH SCH ×4 (05:36→23:27)
[2016-04-30] MEDS: LEVOTHYROXINE SODIUM 100 MCG VIAL IV PUSH SCH (05:36)
[2016-04-30] MEDS: HEPARIN-D5W INJ 250 ML IV SCH ×2 (05:39→18:55)
[2016-04-30 07:29] LABS: APTT (PATIENT) 30.3 SEC (22.6-28.8)
[2016-04-30] MEDS: MONTELUKAST SODIUM 10 MG TAB PO SCH (07:59)
[2016-04-30] MEDS: ATORVASTATIN 10 MG TAB PO SCH (07:59)
[2016-04-30] MEDS: FENOFIBRATE 48 MG TAB PO SCH (07:59)
[2016-04-30] MEDS: ALLOPURINOL 300 MG TAB PO SCH (07:59)
[2016-04-30] MEDS: SODIUM CHLORIDE 0.9% FLUSH 5 ML FLUSH FLUSH SCH ×2 (07:59→21:00)
[2016-04-30] MEDS: CHLORHEXIDINE 0.12% (ORAL KIT) 15 ML CUP MT SCH ×2 (08:00→21:01)
[2016-04-30] MEDS: MICONAZOLE NITRATE 2% CREAM 15 GM TOP SCH ×2 (08:01→21:01)
--- NOTE | 2016-04-30 08:24 | RADRPT ---
EXAM DATE/TIME: 04/30/2016 07:43 [place] COMPARISON: CHEST SINGLE AP, April 29, 2016, 3:30. INDICATIONS : PICC placement. MEDICAL HISTORY : Chronic obstructive pulmonary disease. SURGICAL HISTORY : Tracheostomy. ENCOUNTER: Subsequent ACUITY: 1 week PAIN SCORE: Non-responsive. LOCATION: Bilateral chest FINDINGS: A single view of the chest demonstrates bilateral airspace disease greatest in the right lower lobe. Diminished lung volumes. Heart enlarged. Right-sided PICC line with tip not well-seen but appears to be in the right atrium. Tracheostomy tube unchanged. The cardiomediastinal contours are unremarkable . Osseous structures are intact. CONCLUSION: 1. Bilateral airspace disease greater in the right lower lobe. 2. Right-sided PICC line with tip not well-seen but appears to be in the right atrium. Vishnu Woodward MD on April 30, 2016 at 8:17 Board Certified Radiologist. This report was verified electronically.
[2016-04-30] MEDS: RESP: ALBUTEROL 2.5 MG/IPRATROPIUM 0.5 MG NEB (PRN) NEB (09:06)
[2016-04-30] MEDS: RESP: BUDESONIDE 0.5 MG/2 ML NEB NEB SCH ×2 (09:06→19:17)
[2016-04-30] MEDS: EPOPROSTENOL NEB SOLUTION 50 NG/KG/MIN 100 ML NEB SCH ×6 (09:58→21:00)
--- NOTE | 2016-04-30 10:50 | HHI.IDPN ---
Subjective Subjective Remarks Notes reviewed D/W RN Low grade temps last night FiO2 up to 0.8 Sedated on the vent BP ok Sputum with MDR PSAE, S to Zerbaxa Antibiotics Zerbaxa Levaquin Lines PICC RUE Past Medical History Chronic Respiratory Failure s/p Tracheostomy 4 years ago Morbid Obesity w/ BMI 67.6 Atrial fibrillation Pulmonary embolism 4 years ago Anxiety CHF (Echo 06/07/2014 w/ EF 40-45%; ECHO 08/2015 showing a grossly normal systolic function) HTN Hypothyroidism Past Surgical History Tracheostomy Tonsillectomy Allergies: Coded Allergies: No Known Allergies (Unverified , 09/16/15) Objective . Vital Signs Date Time Temp Pulse Resp B/P Pulse Ox O2 Delivery O2 Flow Rate FiO2 04/30/16 10:00 63 04/30/16 08:15 90 80 04/30/16 08:00 80 04/30/16 08:00 65 04/30/16 08:00 99.5 65 22 124/60 90 04/30/16 06:00 62 04/30/16 04:00 99.8 67 22 120/62 92 04/30/16 04:00 67 04/30/16 04:00 75 04/30/16 03:50 91 75 04/30/16 02:00 67 04/30/16 00:43 92 75 04/30/16 00:00 66 04/30/16 00:00 100.2 66 22 124/64 93 04/30/16 00:00 80 04/29/16 22:36 93 80 04/29/16 22:00 69 04/29/16 20:00 80 04/29/16 20:00 100.1 71 22 121/61 92 04/29/16 20:00 71 04/29/16 19:35 93 80 04/29/16 18:02 92 80 04/29/16 18:00 77 04/29/16 16:00 99.7 75 22 125/61 92 04/29/16 16:00 88 04/29/16 16:00 80 04/29/16 14:00 94 04/29/16 12:00 76 04/29/16 12:00 70 04/29/16 12:00 99.6 76 22 130/60 90 04/29/16 11:15 91 70 04/29/16 04/29/16 04/30/16 15:00 23:00 07:00 Intake Total 3811 ml 1443 ml 1273 ml Output Total 3530 ml 1000 ml 1000 ml Balance 281 ml 443 ml 273 ml IV Total 3226 ml 1390 ml 1133 ml Tube Feeding 53 ml 140 ml TPN/PPN 585 ml Output Urine Total 3530 ml 1000 ml 1000 ml . Laboratory Tests Test 04/29/16 04/29/16 04:20 15:17 White Blood Count 15.3 TH/MM3 15.3 TH/MM3 Red Blood Count 4.76 MIL/MM3 4.54 MIL/MM3 Hemoglobin 11.3 GM/DL 10.7 GM/DL Hematocrit 35.6 % 34.4 % Mean Corpuscular Volume 74.8 FL 75.8 FL Mean Corpuscular Hemoglobin 23.7 PG 23.5 PG Mean Corpuscular Hemoglobin 31.7 % 31.0 % Concent Red Cell Distribution Width 19.6 % 19.8 % Platelet Count 241 TH/MM3 209 TH/MM3 Mean Platelet Volume 8.3 FL 8.3 FL Laboratory Tests Test 04/28/16 04/29/16 04/29/16 04/29/16 19:40 01:45 04:20 09:10 Potassium Level 3.8 MEQ/L 3.7 MEQ/L 3.7 MEQ/L 5.0 MEQ/L Magnesium Level 2.3 MG/DL 2.4 MG/DL Sodium Level 142 MEQ/L Chloride Level 99 MEQ/L Carbon Dioxide Level 37.2 MEQ/L Anion Gap 6 MEQ/L Blood Urea Nitrogen 18 MG/DL Creatinine 0.96 MG/DL Estimat Glomerular Filtration 91 ML/MIN Rate Random Glucose 140 MG/DL Calcium Level 9.0 MG/DL Phosphorus Level 2.2 MG/DL Test 04/29/16 04/30/16 04/30/16 17:20 02:10 06:40 Potassium Level 3.5 MEQ/L 3.9 MEQ/L 3.7 MEQ/L Phosphorus Level 3.0 MG/DL Microbiology Date/Time Procedure Status Source Growth 04/27/16 16:35 Gram Stain - Final Complete Sputum Endotracheal 04/27/16 16:35 Sputum Culture - Final Complete Pseudomonas Aeruginosa Imaging Chest X-Ray 04/30/16 0000 Signed Impressions: Service Date/Time: Saturday, April 30, 2016 07:43 - CONCLUSION: 1. Bilateral airspace disease greater in the right lower lobe. 2. Right-sided PICC line with tip not well-seen but appears to be in the right atrium. Vishnu Woodward MD Abdomen X-Ray 04/29/16 0000 Signed Impressions: Service Date/Time: Friday, April 29, 2016 07:12 - CONCLUSION: Suspect Dobbhoff tube in the distal stomach. Garcia Lujan MD Physical Exam GENERAL: This is a morbidly obese male, sedated, on the vent, not in distress. SKIN: Cool and moist. Generalized rash. No cyanosis noted. HEAD: Atraumatic. Normocephalic. No temporal or scalp tenderness. EYES: Early conjunctivae. Pupils equal round and reactive. No scleral icterus. Has mild conjunctival injection bilaterally. ENT: Nose without bleeding, or purulent drainage. Moist mucosa. Has a lot of oral secretions. NECK: Short and obese, trach site with some crusted blood. Supple, no meningeal signs. CARDIOVASCULAR: Regular rate and rhythm without murmurs, gallops, or rubs. Distant heart sounds RESPIRATORY: Decreased BS bilaterally. GASTROINTESTINAL: Abdomen soft, morbidly obese, mo reaction to palpation, not distended. Bowel sounds presentr and hypoactive. Unable to examine for organomegaly opr masses due to size of abdomen. MUSCULOSKELETAL: Extremities without clubbing, cyanosis. Has mild pitting edema. NEUROLOGICAL: Sedated PSYCH: Unable to assess LINE: PICC in RUE, no evidence of infection : [place] in place, urine looks clear Assessment & Plan Remarks IMPRESSION Chronic respiratory failure, has trach, has HCAP - C/S with MDR PSAE MDR PSAE PNA Low grade temps Leukocytosis, due to PNA, and partly due to steroids Morbid obesity Hx PE RECOMMENDATION Continue Zerbaxa Stop Levaquin and Vanco Add colistin nebs Monitor progress Follow CBC Waiting for trach revision - waiting for FiO2 to be lower D/W RN D/W Dr Morgan ([facility]) Dana Tam MD Apr 30, 2016 10:50
--- NOTE | 2016-04-30 11:49 | HHI.FPPN ---
Subjective Remarks Patient remains on ventilator. FiO2 of 80%, PEEP of 11, O2 saturation 9092%. Intake 6527 mL, output 5530 mL, balance 997 mL. No oral intake at this time, receiving a combination of tube feeding and TPN. (Allegra Ko MD R2) Objective Vitals Vital Signs Date Time Temp Pulse Resp B/P Pulse Ox O2 Delivery O2 Flow Rate FiO2 04/30/16 10:00 63 04/30/16 08:15 90 80 04/30/16 08:00 80 04/30/16 08:00 65 04/30/16 08:00 99.5 65 22 124/60 90 04/30/16 06:00 62 04/30/16 04:00 99.8 67 22 120/62 92 04/30/16 04:00 67 04/30/16 04:00 75 04/30/16 03:50 91 75 04/30/16 02:00 67 04/30/16 00:43 92 75 04/30/16 00:00 66 04/30/16 00:00 100.2 66 22 124/64 93 04/30/16 00:00 80 04/29/16 22:36 93 80 04/29/16 22:00 69 04/29/16 20:00 80 04/29/16 20:00 100.1 71 22 121/61 92 04/29/16 20:00 71 04/29/16 19:35 93 80 04/29/16 18:02 92 80 04/29/16 18:00 77 04/29/16 16:00 99.7 75 22 125/61 92 04/29/16 16:00 88 04/29/16 16:00 80 04/29/16 14:00 94 04/29/16 12:00 76 04/29/16 12:00 70 04/29/16 12:00 99.6 76 22 130/60 90 I/O 04/29/16 04/29/16 04/29/16 04/30/16 04/30/16 04/30/16 07:00 15:00 23:00 07:00 15:00 23:00 Intake Total 3811 ml 1443 ml 1273 ml Output Total 5525 ml 3530 ml 1000 ml 1000 ml Balance -5525 ml 281 ml 443 ml 273 ml IV Total 3226 ml 1390 ml 1133 ml Tube Feeding 53 ml 140 ml TPN/PPN 585 ml Output Urine Total 5525 ml 3530 ml 1000 ml 1000 ml (Allegra Ko MD R2) Result Diagram: 04/29/16 1517 04/30/16 0640 Imaging Last Impressions Chest X-Ray 04/30/16 0000 Signed Impressions: Service Date/Time: Saturday, April 30, 2016 07:43 - CONCLUSION: 1. Bilateral airspace disease greater in the right lower lobe. 2. Right-sided PICC line with tip not well-seen but appears to be in the right atrium. Vishnu Woodward MD Abdomen X-Ray 04/29/16 0000 Signed Impressions: Service Date/Time: Friday, April 29, 2016 07:12 - CONCLUSION: Suspect Dobbhoff tube in the distal stomach. Garcia Lujan MD Objective Remarks GENERAL: Sedated in bed, on mechanical ventilation, NG tube in place. SKIN: Warm and dry. No rashes or lesions. HEAD: Normocephalic. Atraumatic. ENT: No nasal drainage. Tracheotomy site is clean and dry without drainage. NECK: No JVD. CARDIOVASCULAR: Regular rate and rhythm without murmurs, gallops, or rubs. Peripheral pulses 2+. RESPIRATORY: On mechanical ventilation. Clear to auscultation bilaterally. GASTROINTESTINAL: Abdomen soft, non-tender, obese, normal BS. Unable to assess for organomegaly or masses. MUSCULOSKELETAL: Lower extremities edematous. NEURO: Sedated. (Allegra Ko MD R2) Urinary Catheter: Yes Date of Insertion: Apr 24, 2016 (Allegra Ko MD R2) Vascular Central Line Catheter: Yes Date of Insertion: Apr 26, 2016 Line: PICC Side: Right (Allegra Ko MD R2) A/P Assessment and Plan 31 year old male with a PMH of chronic respiratory failure s/p tracheostomy 4 years ago, morbid obesity with BMI 67.6, atrial fibrillation and pulmonary embolism on Xarelto, CHF, and h/o HTN in long-term rehab at [facility] presented to the ED after having low oxygen saturation at 82% on RA. He was admitted for shortness of breath likely secondary to a combination of HCAP, COPD exacerbation and CHF exacerbation. He is currently on mechanical ventilation in the intensive care unit and being managed by critical care. Discharge Planning Unclear timetable at this time. (Allegra Ko MD R2) Attending Attestation Patient seen and examined. Case reviewed and discussed Agree with plan of care as discussed with me and documented in the resident note. (Bernice Garcia MD) Problem List: (1) On mechanically assisted ventilation Status: Acute Plan: Critical care actively managing acute hypercapnic and hypoxemic respiratory failure and HCAP at this time Patient placed on mechanical ventilation on 04/24, FiO2 now 80% with PEEP 11 Daily attempts to decrease FiO2 and PEEP to stabilize patient for tracheostomy exchange General surgery consulted for a trach exchange as patients trach was found to have a leak. Patient will need a trach exchange as soon as possible. GS planning for trach exchange tentative given patient continuing to need increased PEEP; will need continual reassessment Continue Solumedrol 60 mg IV q6h (2) HCAP (healthcare-associated pneumonia) Status: Acute Plan: Afebrile, pulse wnls Leukocytosis 15.3 on steroids Repeat ABG on 04/26 showed improvement with CO2 56 with pH 7.40 04/24 BCx no growth CXR 04/29 showing stable bibasilar consolidative infiltrates 04/30 CXR shows bilateral airspace disease greater in the right lower lobe 04/27 Sputum culture growing resistant pseudomonas - Infectious Disease consulted- started Zerbaxa 1.5g IV Q8H for pseudomonas coverage * Discontinued Vancomycin 2gm IV q12h, Levaquin 750mg IV q24h (04/24-04/30) - Zosyn 4.5gm IV q6h (04/24 - dced 04/29) - Duonebs q4h (3) CHF (congestive heart failure) Status: Chronic Plan: Last ECHO 09/18/2015 showing a grossly normal systolic function with no definitive EF as it was difficult to assess, ECHO on 05/2014 with EF of 40-45% with mildly dilated left atrium 04/25 ECHO was limited due to poor image quality, EF could not be adequately estimated. Systolic function appears to be grossly normal. BNP on admission 419, repeat BNP 151 -Lasix IV drip; monitor I&Os (4) Atrial fibrillation Status: Chronic Plan: Last EKG in sinus rhythm RRR on exam Home dose of Xarelto 20 mg po daily has been held in anticipation of surgery. Currently on therapeutic Lovenox. (5) Tracheostomy present Status: Chronic Plan: General surgery consulted for trach exchange given current trach with leak. Xarelto and Lovenox have been held in anticipation of surgery On heparin drip GS plans for tracheostomy exchange to a new one with a working cuff once ventilator settings are weaned down. * Continue to inflate cuff on PRN basis. (6) HTN (hypertension) Status: Chronic Plan: BPs stable Hold home BP medications Vitals q4h (7) Morbid obesity with BMI of 60.0-69.9, adult Status: Chronic Plan: Likely contributing to chronic respiratory issues (8) Hypothyroidism Status: Chronic Plan: Synthroid 25 mcg IV daily (9) Nutrition, metabolism, and development symptoms Status: Acute Plan: Fluids: none Electrolytes: Monitor and replete when necessary per protocol Nutrition: NG tube, tube feeds with Glucerna 30ml/hr DVT PPx: Heparin drip. Holding Lovenox and Xarelto dw Dr. Garcia and Rosie Abel, MS4 (Allegra Ko MD R2) Problem Qualifiers (1) CHF (congestive heart failure): Qualified Code: I50.9 - Acute on chronic congestive heart failure, unspecified congestive heart failure type (2) Atrial fibrillation: Qualified Code: I48.2 - Chronic atrial fibrillation (3) HTN (hypertension): Qualified Code: I10 - Essential hypertension (4) Hypothyroidism: Qualified Code: E03.9 - Hypothyroidism, unspecified type Allegra oK MD R2 Apr 30, 2016 11:49 Bernice Garcia MD May 06, 2016 10:19
[2016-04-30] MEDS: RESP: COLISTIN 150 MG VIAL NEB SCH ×2 (13:49→23:52)
[2016-04-30 15:49] LABS: APTT (PATIENT) 28.7 SEC (24.3-30.1)
[2016-04-30] MEDS ORDERED: FUROSEMIDE 40 MG/4 ML VIAL IV PUSH SCH (16:00)
[2016-04-30] MEDS ORDERED: FUROSEMIDE 100 MG/10 ML VIAL IV PUSH ONE (17:15)
--- NOTE | 2016-04-30 17:44 | HHI.CCPN ---
Subjective Remarks/Hospital Course 04/24: Wilfrido Fortune is a 31 year old male with past medical history of chronic respiratory failure s/p tracheostomy 4 years ago, super morbid obesity (BMI 68) , atrial fibrillation and pulmonary embolism on Xarelto, COPD, CHF and h/o HTN. Patient presented from [facility] with low oxygen saturation apparently his oxygen saturation was 82% on RA. He was placed back on 6L of oxygen via his trach mask and given a breathing treatment, initially improved however he started drifting back to low 80s again. Apparently patient had been getting treatment for pneumonia at the rehabilitation facility. In the ER chest x-ray showed bibasilar infiltrates and pulmonary edema. Patient was admitted to the [facility] service and was started on IV steroids IV vancomycin and Zosyn and Levaquin for healthcare associated pneumonia. ABG after admission was pH of 7.42 PCO2 of 61 and PO2 55. Repeat ABG at 5 PM showed pH of 7.26 PCO2 of 85 and PO2 of 70 and patient was started on BiPAP by the [facility]. ABG at 10:15 showed worsening CO2 retention with pH 7.16 PCO2 108 and PO2 of 98. At that time critical care medicine was consulted After receiving the consult, Dr. Zelaya immediately ordered placement on for full mechanical ventilatory support and starting sedation for ventilator synchrony. Dr. Zelaya evaluated the patient in ICU. After starting ACV, patient was more awake but there was a significant amount of air leak around his tracheostomy. Patient has a Shiley 6.0 Proximal XLT, but the airplane pilot balloon had been cut off. Vent settings changed from ACV to pressure control with inspiratory pressure of 25, which improved the tidal volume he was receiving. General surgery consulted for trach exchange in a.m. Solu-Medrol increased to 60 mg IV every 6 hours after 125 mg bolus. Additional 2 mg IV Bumex had been ordered. Scheduled and when necessary breathing treatment ordered. 04/25: Patient remains on mechanical ventilation via tracheostomy. Discussed with Dr. Dannie arrieta from general surgery. He inflated air in the cuff using a Seldinger needle and then applied a hemostat with which cuff appeared to stay inflated and patient started volume improved. He plans to change out tracheostomy once patient is a little more stable in the next 24-48 hours in the OR. 04/26: Afebrile. Tracheostomy cuff remains inflated, with hemostat secured. Tidal volumes greater than 400 cc. Patient continues on fentanyl and propofol infusions, with a RASS score of 0. Patient complains of discomfort in bed, requesting larger more comfortable bed. FiO2 decreased to 80% this a.m., with close monitoring to be trended with O2 sat of 94% discussion with Dr. Arrieta this a.m.. The patient is still too unstable secondary to respiratory insufficiency to go to the OR today, will begin therapeutic anticoagulation today secondary to history of PE and other risk factors. 04/27: Afebrile. Tmax 97.6. Overnight the patient required increasing O2 concentrations. Patient's trach cuff required reinflation 2 overnight, maintaining volumes 400-500 cc per breath. The patient's FiO2 currently is 1.0 , O2 sat 94-96%. The patient received PICC line yesterday secondary to difficult IV access and nutrition requirements, will begin PPN tonight. The patient remains optimally sedated for ventilator's synchrony, and minimization of agitation. Currently requirements include propofol Versed and fentanyl infusions. 04/28: Tmax 98.7. The patient still requires and increasing O2 concentrations, Flolan initiated last night FiO2 was significantly decreased to 60% ,however this a.m. patient's O2 sat remained mid 80s with a requirement of increasing PEEP to 11 and FiO2 return to 100% currently aggressively utilizing recruitment maneuvers to decrease O2 and PEEP requirements for transfer to the OR tomorrow for exchange of tracheostomy apparatus. The patient continues to be sedated for patient safety and ventilator synchrony. 04/29:Tmax 100.0. Overnight the patient was diuresed approximately 5 L. The patient continues on a Lasix infusion. The FiO2 was significantly decrease post diuresis to 0.65, the patient continues on a PEEP of 12 with O2 saturations 93-94%. Successful placement of Dobbhoff tube, early this a.m. we' ll begin tube feeds this a.m. and discontinue PPN. General Surgery contacted this a.m. regarding tracheostomy exchange for scheduled time. Patient's Lovenox is held for OR, will place on heparin infusion, procedures time is scheduled for later today. The patient continues to be on sedation for safety to prevent dislodgment out tracheostomy tube. Radiological imaging studies reveal a loop and PICC line, will reconsult PICC team. 04/30: Afebrile. It is felt at this time by General Surgery, that the airway is secure as evidenced by lung volumes have been maintained for the last 3 days., Will attempt to repair airplane pilot balloon, if unsuccessful in attempts at repairing airplane pilot balloon, general surgery would consider exchanging the Shiley 60 XLT trach on an elective basis,when the patient was no longer critically ill. It is felt at this time, if tracheostomy was exchanged at this point in time the risks outweigh the benefit, and could result and possible . Attempts were made to decrease the PEEP to 8 , this afternoon and within an half an hour, the patient went into jacques pulmonary edema, copious pink frothy some sputum was noted to be emanating from the tracheostomy tube. O2 sat saturations dropped into the 60s,acutely. The patient was bolused with 80 mg of Lasix and 500 mg of Diamox and the PEEP was increased to 12. The patient's oxygenation improved with manual Ambu bag being and the PEEP of 12. The PICC line was power flushed early this morning repeat x-ray revealed the loop and line resolved, no resistance noted. Objective - Vital Signs Date Time Temp Pulse Resp B/P Pulse Ox O2 Delivery O2 Flow Rate FiO2 04/30/16 15:42 92 80 04/30/16 14:00 66 04/30/16 12:00 100.5 22 126/63 Intake and Output 04/29/16 04/29/16 04/29/16 07:59 15:59 23:59 Intake Total 3811 ml 1443 ml Output Total 5525 ml 3530 ml 1000 ml Balance -5525 ml 281 ml 443 ml Result Diagram: 04/29/16 1517 04/30/16 1450 Other Results Laboratory Tests Test 04/29/16 04/29/16 04/29/16 01:45 04:20 09:10 Potassium Level 3.7 MEQ/L 3.7 MEQ/L 5.0 MEQ/L (3.5-5.1) (3.5-5.1) (3.5-5.1) Magnesium Level 2.3 MG/DL 2.4 MG/DL (1.5-2.5) (1.5-2.5) White Blood Count 15.3 TH/MM3 (4.0-11.0) Red Blood Count 4.76 MIL/MM3 (4.50-5.90) Hemoglobin 11.3 GM/DL (13.0-17.0) Hematocrit 35.6 % (39.0-51.0) Mean Corpuscular Volume 74.8 FL (80.0-100.0) Mean Corpuscular Hemoglobin 23.7 PG (27.0-34.0) Mean Corpuscular Hemoglobin 31.7 % Concent (32.0-36.0) Red Cell Distribution Width 19.6 % (11.6-17.2) Platelet Count 241 TH/MM3 (150-450) Mean Platelet Volume 8.3 FL (7.0-11.0) Prothrombin Time 11.4 SEC (9.8-11.4) Prothromb Time International 1.1 RATIO Ratio Activated Partial 27.4 SEC Thromboplast Time (22.6-28.8) Sodium Level 142 MEQ/L (136-145) Chloride Level 99 MEQ/L (98-107) Carbon Dioxide Level 37.2 MEQ/L (21.0-32.0) Anion Gap 6 MEQ/L (5-15) Blood Urea Nitrogen 18 MG/DL (7-18) Creatinine 0.96 MG/DL (0.60-1.30) Estimat Glomerular Filtration 91 ML/MIN (>89) Rate Random Glucose 140 MG/DL (74-106) Calcium Level 9.0 MG/DL (8.5-10.1) Phosphorus Level 2.2 MG/DL (2.5-4.9) Laboratory Tests Test 04/28/16 04/28/16 05:05 05:10 Blood Gas Puncture Site PICC LINE Blood Gas Patient Temperature 98.6 Venous Blood pH 7.47 (7.360-7.400) Venous Blood Partial Pressure 48 mmHg (44-48) CO2 Venous Blood Partial Pressure 48 mmHg (35-40) O2 Venous Blood HCO3 35 mmol/L (22-26) Venous Blood Oxygen Saturation 79 % (70-76) Venous Blood Oxygen Content 12.4 Vol % (9.0-17.0) Venous Blood Base Excess 10.2 mmol/L (-2-2) Oxygen Delivery Device VENTILATOR Blood Gas Ventilator Setting PRVC/AC Blood Gas Inspired Oxygen 60 % White Blood Count 13.5 TH/MM3 (4.0-11.0) Red Blood Count 4.65 MIL/MM3 (4.50-5.90) Hemoglobin 10.9 GM/DL (13.0-17.0) Hematocrit 34.8 % (39.0-51.0) Mean Corpuscular Volume 74.8 FL (80.0-100.0) Mean Corpuscular Hemoglobin 23.3 PG (27.0-34.0) Mean Corpuscular Hemoglobin 31.2 % Concent (32.0-36.0) Red Cell Distribution Width 19.6 % (11.6-17.2) Platelet Count 274 TH/MM3 (150-450) Mean Platelet Volume 8.2 FL (7.0-11.0) Sodium Level 139 MEQ/L (136-145) Potassium Level 3.2 MEQ/L (3.5-5.1) Chloride Level 94 MEQ/L (98-107) Carbon Dioxide Level 34.9 MEQ/L (21.0-32.0) Anion Gap 10 MEQ/L (5-15) Blood Urea Nitrogen 18 MG/DL (7-18) Creatinine 0.79 MG/DL (0.60-1.30) Estimat Glomerular Filtration 114 ML/MIN Rate (>89) Random Glucose 140 MG/DL (74-106) Calcium Level 8.3 MG/DL (8.5-10.1) Phosphorus Level 2.9 MG/DL (2.5-4.9) Magnesium Level 1.8 MG/DL (1.5-2.5) Laboratory Tests Test 04/24/16 04/24/16 04/24/16 04/24/16 12:11 12:35 12:40 13:50 Blood Gas Puncture Site LT RADIAL Blood Gas Patient Temperature 98.6 Blood Gas HCO3 39 mmol/L Blood Gas Base Excess 13.9 mmol/L Blood Gas Oxygen Saturation 84 % Arterial Blood pH 7.42 Arterial Blood Partial 61 mmHg Pressure CO2 Arterial Blood Partial 55 mmHG Pressure O2 Arterial Blood Oxygen Content 15.3 Vol % Arterial Blood 2.0 % Carboxyhemoglobin Arterial Blood Methemoglobin 2.1 % Blood Gas Hemoglobin 12.9 G/DL Oxygen Delivery Device MASK Blood Gas Liter Flow 6 L/M Blood Gas Inspired Oxygen 50 % White Blood Count 12.1 TH/MM3 Red Blood Count 5.31 MIL/MM3 Hemoglobin 12.5 GM/DL Hematocrit 40.4 % Mean Corpuscular Volume 76.2 FL Mean Corpuscular Hemoglobin 23.6 PG Mean Corpuscular Hemoglobin 31.0 % Concent Red Cell Distribution Width 19.2 % Platelet Count 355 TH/MM3 Mean Platelet Volume 8.0 FL Neutrophils (%) (Auto) 75.1 % Lymphocytes (%) (Auto) 16.2 % Monocytes (%) (Auto) 6.9 % Eosinophils (%) (Auto) 1.0 % Basophils (%) (Auto) 0.8 % Neutrophils # (Auto) 9.1 TH/MM3 Lymphocytes # (Auto) 2.0 TH/MM3 Monocytes # (Auto) 0.8 TH/MM3 Eosinophils # (Auto) 0.1 TH/MM3 Basophils # (Auto) 0.1 TH/MM3 CBC Comment AUTO DIFF Differential Comment AUTO DIFF CONFIRMED Polychromasia 2.1 % Prothrombin Time 14.2 SEC Prothromb Time International 1.4 RATIO Ratio Activated Partial 30.3 SEC Thromboplast Time Sodium Level 135 MEQ/L Potassium Level 4.2 MEQ/L Chloride Level 95 MEQ/L Carbon Dioxide Level 37.4 MEQ/L Anion Gap 3 MEQ/L Blood Urea Nitrogen 21 MG/DL Creatinine 1.00 MG/DL Estimat Glomerular Filtration 87 ML/MIN Rate Random Glucose 86 MG/DL Calcium Level 8.9 MG/DL Total Creatine Kinase 77 U/L Troponin I LESS THAN 0.02 NG/ML B-Type Natriuretic Peptide 419 PG/ML Lactic Acid Level 1.1 mmol/L Test 04/24/16 04/24/16 04/24/16 04/24/16 16:52 18:00 19:10 20:25 Blood Gas Puncture Site RT RADIAL Blood Gas Patient Temperature 98.6 Blood Gas HCO3 37 mmol/L Blood Gas Base Excess 9.5 mmol/L Blood Gas Oxygen Saturation 86 % Arterial Blood pH 7.26 Arterial Blood Partial 85 mmHg Pressure CO2 Arterial Blood Partial 70 mmHG Pressure O2 Arterial Blood Oxygen Content 15.2 Vol % Arterial Blood 1.6 % Carboxyhemoglobin Arterial Blood Methemoglobin 2.3 % Blood Gas Hemoglobin 12.6 G/DL Oxygen Delivery Device MASK Blood Gas Liter Flow 6 L/M Blood Gas Inspired Oxygen 50 % Urine Color YELLOW Urine Turbidity CLEAR Urine pH 5.[address] [place] 1.009 Urine Protein NEG mg/dL Urine Glucose (UA) NEG mg/dL Urine Ketones NEG mg/dL Urine Occult Blood NEG Urine Nitrite NEG Urine Bilirubin NEG Urine Urobilinogen LESS THAN 2.0 MG/DL Urine Leukocyte Esterase NEG Urine RBC LESS THAN 1 /hpf Urine WBC 1 /hpf Urine Squamous Epithelial <1 /hpf Cells Urine Mucus FEW /lpf Microscopic Urinalysis Comment CULT NOT INDICATED Troponin I LESS THAN 0.02 NG/ML Nasal Screen MRSA (PCR) NEGATIVE Test 04/24/16 04/24/16 04/25/16 04/25/16 21:39 22:14 05:02 12:47 Total Creatine Kinase 79 U/L 127 U/L Sodium Level 139 MEQ/L 138 MEQ/L Potassium Level 4.1 MEQ/L 4.1 MEQ/L Chloride Level 97 MEQ/L 94 MEQ/L Carbon Dioxide Level 33.7 MEQ/L 35.7 MEQ/L Anion Gap 8 MEQ/L 8 MEQ/L Blood Urea Nitrogen 23 MG/DL 23 MG/DL Creatinine 1.02 MG/DL 0.97 MG/DL Estimat Glomerular Filtration 85 ML/MIN 90 ML/MIN Rate Random Glucose 132 MG/DL 123 MG/DL Calcium Level 8.6 MG/DL 8.1 MG/DL Troponin I LESS THAN 0.02 0.04 NG/ML NG/ML Vancomycin Level Trough 14.0 MCG/ML Blood Gas Puncture Site LT RADIAL LT RADIAL Blood Gas Patient Temperature 98.6 98.6 Blood Gas HCO3 37 mmol/L 34 mmol/L Blood Gas Base Excess 8.0 mmol/L 9.2 mmol/L Blood Gas Oxygen Saturation 92 % 92 % Arterial Blood pH 7.16 7.40 Arterial Blood Partial 108 mmHg 56 mmHg Pressure CO2 Arterial Blood Partial 96 mmHg 73 mmHg Pressure O2 Arterial Blood Oxygen Content 17.1 Vol % 15.5 Vol % Arterial Blood 1.0 % 1.3 % Carboxyhemoglobin Arterial Blood Methemoglobin 1.1 % 1.1 % Blood Gas Hemoglobin 13.2 G/DL 12.0 G/DL Oxygen Delivery Device BIPAP VENTILATOR Blood Gas Ventilator Setting IPAP18/[id number] PC/AC Blood Gas Inspired Oxygen 100 % 100 % White Blood Count 8.9 TH/MM3 Red Blood Count 4.78 MIL/MM3 Hemoglobin 11.7 GM/DL Hematocrit 36.1 % Mean Corpuscular Volume 75.4 FL Mean Corpuscular Hemoglobin 24.4 PG Mean Corpuscular Hemoglobin 32.3 % Concent Red Cell Distribution Width 19.1 % Platelet Count 306 TH/MM3 Mean Platelet Volume 8.0 FL Neutrophils (%) (Auto) 92.9 % Lymphocytes (%) (Auto) 6.2 % Monocytes (%) (Auto) 0.4 % Eosinophils (%) (Auto) 0.0 % Basophils (%) (Auto) 0.5 % Neutrophils # (Auto) 8.3 TH/MM3 Lymphocytes # (Auto) 0.6 TH/MM3 Monocytes # (Auto) 0.0 TH/MM3 Eosinophils # (Auto) 0.0 TH/MM3 Basophils # (Auto) 0.0 TH/MM3 CBC Comment AUTO DIFF Differential Comment AUTO DIFF CONFIRMED Creatine Kinase MB 1.9 NG/ML B-Type Natriuretic Peptide 151 PG/ML Test 04/26/16 04/26/16 04/26/16 00:00 06:55 07:10 Vancomycin Level Trough 16.7 MCG/ML Urine Color YELLOW Urine Turbidity CLOUDY Urine pH 6.[address] [place] 1.041 Urine Protein 30 mg/dL Urine Glucose (UA) NEG mg/dL Urine Ketones NEG mg/dL Urine Occult Blood TRACE Urine Nitrite NEG Urine Bilirubin NEG Urine Urobilinogen LESS THAN 2.0 MG/DL Urine Leukocyte Esterase MOD Urine RBC 25 /hpf Urine WBC 8 /hpf Urine WBC Clumps RARE Urine Transitional Epithelial 1 /hpf Cells Urine Amorphous Sediment OCC Urine Bacteria OCC /hpf Microscopic Urinalysis Comment CATH-CULTURE IND White Blood Count 14.1 TH/MM3 Red Blood Count 5.13 MIL/MM3 Hemoglobin 12.2 GM/DL Hematocrit 38.3 % Mean Corpuscular Volume 74.6 FL Mean Corpuscular Hemoglobin 23.7 PG Mean Corpuscular Hemoglobin 31.8 % Concent Red Cell Distribution Width 19.6 % Platelet Count 279 TH/MM3 Mean Platelet Volume 8.2 FL Neutrophils (%) (Auto) 94.2 % Lymphocytes (%) (Auto) 3.1 % Monocytes (%) (Auto) 2.3 % Eosinophils (%) (Auto) 0.0 % Basophils (%) (Auto) 0.4 % Neutrophils # (Auto) 13.3 TH/MM3 Lymphocytes # (Auto) 0.4 TH/MM3 Monocytes # (Auto) 0.3 TH/MM3 Eosinophils # (Auto) 0.0 TH/MM3 Basophils # (Auto) 0.1 TH/MM3 CBC Comment AUTO DIFF Hematology Comments Laboratory Tests Test 04/24/16 04/25/16 22:14 05:02 Blood Gas Puncture Site LT RADIAL LT RADIAL Blood Gas Patient Temperature 98.6 98.6 Blood Gas HCO3 37 mmol/L 34 mmol/L (22-26) (22-26) Blood Gas Base Excess 8.0 mmol/L 9.2 mmol/L (-2-2) (-2-2) Blood Gas Oxygen Saturation 92 % (90-100) 92 % (90-100) Arterial Blood pH 7.16 7.40 (7.380-7.420) (7.380-7.420) Arterial Blood Partial 108 mmHg 56 mmHg (38-42) Pressure CO2 (38-42) Arterial Blood Partial 96 mmHg 73 mmHg Pressure O2 (61-120) (61-120) Arterial Blood Oxygen Content 17.1 Vol % 15.5 Vol % (12.0-20.0) (12.0-20.0) Arterial Blood 1.0 % (0-4) 1.3 % (0-4) Carboxyhemoglobin Arterial Blood Methemoglobin 1.1 % (0-2) 1.1 % (0-2) Blood Gas Hemoglobin 13.2 G/DL 12.0 G/DL (12.0-16.0) (12.0-16.0) Oxygen Delivery Device BIPAP VENTILATOR Blood Gas Ventilator Setting [id number]/[id number] PC/AC Blood Gas Inspired Oxygen 100 % 100 % Imaging Last 24 hours Impressions Chest X-Ray 04/29/16 06 Signed Impressions: Service Date/Time: Friday, April 29, 2016 03:30 - CONCLUSION: 1. Stable bibasilar consolidative infiltrates. 2. Some coiling of the PICC line since prior exam with the tip of the PIC line now at the level of the origin of the superior vena cava. Jeremiah Tuttle MD Abdomen X-Ray 04/29/16 0000 Signed Impressions: Service Date/Time: Friday, April 29, 2016 07:12 - CONCLUSION: Suspect Dobbhoff tube in the distal stomach. Garcia Lujan MD Last 24 hours Impressions Chest X-Ray 04/27/16 06 Signed Impressions: Service Date/Time: Wednesday, April 27, 2016 03:51 - CONCLUSION: 1. Tracheostomy tube in place. No pneumothorax. 2. Pulmonary venous congestion with some bibasilar infiltrates. Lázaro Frankel MD Objective Remarks GENERAL: Lying in bed, on mech vent via trach in situ, currently sedated SKIN: Warm and dry. HEAD: Normocephalic. Atraumatic. EYES: PERRL. No scleral icterus. No injection or drainage. ENT: No nasal drainage. Oral and nasal mucosa moist NECK: Shiley 6.0 Proximal XLT, the airplane pilot balloon off, inflated and secured with hemostat. CARDIOVASCULAR: Regular rate and rhythm without murmurs, gallops, or rubs. RESPIRATORY: On mechanical ventilation via tracheostomy. Maintenance of tidal volumes continued 400's cc currently. Air entry decreased bilaterally at bases. No wheezing, diminished throughout bilaterally. Patient diuresed, O2 sat improved 93-94% GASTROINTESTINAL: Abdomen soft, non-tender, obese, normal BS. NEURO: Optimal sedation with a RASS -2 on mechanical ventilation, on fentanyl, Versed and propofol infusion, to maintain ventilator synchrony. Urinary Catheter: Yes [place] insert reason: ICU Pt Getting Diuretics Date of Insertion: Apr 24, 2016 Vascular Central Line Catheter: Yes Date of Insertion: Apr 26, 2016 Line: PICC Side: Right A/P Assessment and Plan ASSESSMENT Acute hypercapnic and hypoxemic respiratory failure Healthcare associated pneumonia Sepsis CHF exacerbation CO2 narcosis Tracheostomy airplane pilot balloon damage Chronic Respiratory Failure s/p Tracheostomy 4 years ago (Shiley 6.0 Proximal XLT) COPD/obesity hypoventilation syndrome Morbid Obesity BMI 67 History of pulmonary embolism 4 years ago Chronic atrial fibrillation Anxiety CHF (Echo 2013 EF 40-45%; ECHO 08/2015 showing a grossly normal systolic function) Hypertension Hypothyroidism PLAN NEURO: CO2 narcosis Anxiety -Maintain optimal sedation, with RASS -3, in order to maintain tracheostomy position/placement -For ventilator synchrony continue Propofol , Versed and Fentanyl. Keep RASS -2 - Tracheostomy exchange plan for in the future on an elective basis. We'll attempt utilization of a repair kit. RESP: Acute hypercapnic and hypoxemic respiratory failure Healthcare associated pneumonia Tracheostomy airplane pilot balloon damage (Shiley 6.0 Proximal XLT) Chronic Respiratory Failure s/p Tracheostomy 4 years ago COPD/obesity hypoventilation syndrome History of pulmonary embolism 4 years ago Leukocytosis Pulmonary edema -Continue mechanical ventilation PC/AC rate 18, Insp pres 25, PEEP 12 Fio2 .70 , after aggressive diuresis. Titrate to keep SaO2 >90%. -Flolan initiated 04/27 -F/U ABG post aggressive diuresis this afternoon -Gen. surgery consulted for tracheostomy tube exchange, risks currently outweigh benefits. Discussed with Dr. Dannie Arrieta on . He plans to do the tracheostomy exchange in the OR, under elective conditions . In the meanwhile cuff was inflated using a syringe and needle and subsequently hemostat used to clamp tubing to retain air in the cuff. -Healthcare associated pneumonia (MDRO) is being treated with IV Vancomycin, Zerbaxa and Levaquin, ID consulted follow-up recommendations -Sputum culture revealed 04/28 many gram-negative rods -Follow-up blood culture -DuoNeb every 4 hours scheduled - Pulmicort BID (home med) -Continue IV Solu-Medrol to 60 mg every 6 hours -Continue to hold Xarelto in view of planned tracheostomy exchange . - Heparin infusion continued. -Chest x-ray bibasilar infiltrates unchanged CV: CHF exacerbation Pulmonary edema Chronic atrial fibrillation -Lasix infusion 10 mg/hour we'll monitor potassium every 6 hours - A. fib rate controlled -Continue heparin infusion GI: Super morbid obesity with BMI of 68 -Begin tubefeeds Glucerna 30/hr -IV Protonix IV -SSI per ICU protocol : -BMP every 6 hours -Monitor renal function closely. -Lasix infusion 10 mg/hr - [place] catheter - Strict I&O ID: Healthcare associated pneumonia Sepsis MDRO Leukocytosis -Continue IV vancomycin, Zebaxa (Day 2)and Levaquin - Blood urine and blood culture NGTD -Wound culture Pseudomonas -Sputum culture-Pseudomonas -ID consulted, follow-up recommendations HEME: History of PE on chronic anticoagulation with Xarelto -Monitor CBC, CMP, coags -Xarelto for PE 4 yrs ago. -Hold Xarelto. -Heparin infusion ENDO: Hypothyroidism -Electrolyte replacement protocol -Continue levothyroxine 25 mcgs IV daily PROPH: -Bilateral lower extremity SCDs. Lovenox DVT prophylaxis. IV Protonix for GI prophylaxis LINES: - PICC line (day 5) noted loop in right IJ resolved, PICC team reconsult Plan for general surgery to exchange tracheostomy on an elective basis, secondary to risk outweighed the benefits at this time. Plan for tracheostomy cuff repair, continue to closely monitor lung volumes. Patient currently requires a PEEP of 12, and aggressive diuresis to maintain recruitment of alveoli. This patient remains critically ill with one or more organ systems which are or may become a threat to life. I have spent in excess of 77 minutes discontinuously in the care and management of this patient. This time is exclusive of procedures, and includes, but is not limited to, evaluation of the patient, review of the medical record, discussions with family, consultants, nursing staff, or respiratory therapy, and documentation in the medical record. Discussed patient with RN at bedside. Physician Juana Cisneros MD Apr 30, 2016 17:44
[2016-04-30] MEDS: ACETAMINOPHEN 325 MG TAB PO PRN (21:04)
[2016-04-30 21:17] LABS: BICARBONATE 36.1 MEQ/L (21.0-32.0); POTASSIUM 3.3 MEQ/L (3.5-5.1)
[2016-04-30] MEDS: POTASSIUM CL 40 MEQ/30 ML LIQ UDC PO/TUBE PRN (21:33)
[2016-04-30 23:59] LABS: APTT (PATIENT) 29.4 SEC (24.3-30.1)
[2016-05-01] VITALS (19 sets, daily range): BP systolic 126–145; BP diastolic 65–78; PULSE 64–81; RESP 22; TEMP 99.7–101.2; O2SAT 92–95
[2016-05-01 00:14] LABS: BICARBONATE 35.5 MEQ/L (21.0-32.0); POTASSIUM 3.5 MEQ/L (3.5-5.1)
[2016-05-01] MEDS: POTASSIUM CL 40 MEQ/30 ML LIQ UDC PO/TUBE PRN ×2 (00:33→06:50)
[2016-05-01] MEDS: PROPOFOL 1000 MG/100 ML INJ 100 ML IV SCH ×11 (01:12→22:43)
[2016-05-01] MEDS: FUROSEMIDE INJ 100 MG in SODIUM CHLORIDE 0.9% INJ 90 ML IV SCH ×3 (02:14→22:44)
[2016-05-01] MEDS: CEFTOLOZANE-TAZOBACTAM INJ 1,500 MG in SODIUM CHLORIDE 0.9% INJ 100 ML IV SCH ×3 (04:21→22:44)
--- NOTE | 2016-05-01 05:13 | RADRPT ---
EXAM DATE/TIME: 05/01/2016 02:11 [facility] COMPARISON: CHEST SINGLE AP, April 30, 2016, 7:43. INDICATIONS : Respiratory distress. MEDICAL HISTORY : Chronic obstructive pulmonary disease. SURGICAL HISTORY : Tracheostomy. ENCOUNTER: Subsequent ACUITY: 1 week PAIN SCORE: Non-responsive. LOCATION: Bilateral chest FINDINGS: Neither hemidiaphragm is well seen the heart appears enlarged. Tracheostomy is held in place with he mostat. Right PICC line in place; location of the tip is not discernible. Large body habitus. CONCLUSION: Overall image quality is limited due to patient body habitus. Again suspected the bilateral lower joycelyn ng infiltrates. Jeremiah Tuttle MD on May 01, 2016 at 5:10 Board Certified Radiologist. This report was verified electronically.
[2016-05-01] MEDS: methylPREDNISolone SOD SUCC 40 MG/1 ML VIAL IV PUSH SCH ×4 (05:19→22:46)
[2016-05-01] MEDS: ACETAMINOPHEN 325 MG TAB PO PRN (05:19)
[2016-05-01] MEDS: LEVOTHYROXINE SODIUM 100 MCG VIAL IV PUSH SCH (05:19)
[2016-05-01] MEDS: fentaNYL DRIP 250 ML IV SCH ×2 (05:20→16:33)
[2016-05-01] MEDS: EPOPROSTENOL NEB SOLUTION 50 NG/KG/MIN 100 ML NEB SCH ×6 (05:46→22:45)
[2016-05-01 06:14] LABS: APTT (PATIENT) 29.4 SEC (24.3-30.1); AUTOMATED NEUTROPHIL # 14.6 TH/MM3 (1.8-7.7); BASOPHIL # 0.1 TH/MM3 (0-0.2); BASOPHIL % 0.7 % (0.0-2.0); HEMATOCRIT 34.5 % (39.0-51.0); LYMPH % 3.2 % (9.0-44.0); LYMPHOCYTE # 0.5 TH/MM3 (1.0-4.8); MEAN CORPUSCULAR HGB CONC 31.2 % (32.0-36.0); NEUT % 91.1 % (16.0-70.0); PLATELET COUNT 219 TH/MM3 (150-450); RED BLOOD COUNT 4.66 MIL/MM3 (4.50-5.90); RED CELL DISTRIBUTION WIDTH 19.5 % (11.6-17.2); WHITE BLOOD COUNT 16.1 TH/MM3 (4.0-11.0)
[2016-05-01 06:24] LABS: HEMO FLAGS AUTO DIFF
[2016-05-01 06:35] LABS: ALKALINE PHOSPHATASE 50 U/L (45-117); ALT (GPT) 27 U/L (12-78); ANION GAP 7 MEQ/L (5-15); AST (GOT) 31 U/L (15-37); BICARBONATE 34.3 MEQ/L (21.0-32.0); BLOOD UREA NITROGEN 23 MG/DL (7-18); CHLORIDE 97 MEQ/L (98-107); GLOMERULAR FILTRATION RATE 98 ML/MIN (>89); POTASSIUM 3.3 MEQ/L (3.5-5.1); SODIUM (NA) 138 MEQ/L (136-145)
[2016-05-01] MEDS: HEPARIN-D5W INJ 250 ML IV SCH (06:53)
[2016-05-01 07:11] LABS: SCAN/DIFF AUTO DIFF CONFIRMED
[2016-05-01] MEDS: ALLOPURINOL 300 MG TAB PO SCH (07:35)
[2016-05-01] MEDS: MONTELUKAST SODIUM 10 MG TAB PO SCH (07:36)
[2016-05-01] MEDS: FENOFIBRATE 48 MG TAB PO SCH (07:36)
[2016-05-01] MEDS: ATORVASTATIN 10 MG TAB PO SCH (07:37)
[2016-05-01] MEDS: SODIUM CHLORIDE 0.9% FLUSH 5 ML FLUSH FLUSH SCH ×2 (07:55→22:46)
[2016-05-01] MEDS: MICONAZOLE NITRATE 2% CREAM 15 GM TOP SCH ×2 (07:55→22:45)
--- NOTE | 2016-05-01 08:35 | HHI.PR ---
Subjective Subjective Notes PT REMAINS SEDATED ON HIGH VENT SETTINGS Objective Vitals/I&O Vital Signs Date Time Temp Pulse Resp B/P Pulse Ox O2 Delivery O2 Flow Rate FiO2 05/01/16 06:19 22 05/01/16 06:00 67 05/01/16 04:29 94 80 05/01/16 04:00 101.0 143/73 Labs Laboratory Tests Test 04/30/16 04/30/16 04/30/16 04/30/16 14:30 14:50 20:20 23:40 Activated Partial 28.7 29.4 Thromboplast Time Potassium Level 3.6 3.3 3.5 Sodium Level 138 139 Chloride Level 96 97 Carbon Dioxide Level 36.1 35.5 Anion Gap 6 7 Blood Urea Nitrogen 23 23 Creatinine 0.86 0.91 Estimat Glomerular Filtration 103 97 Rate Random Glucose 136 148 Calcium Level 8.5 8.6 Test 05/01/16 05:45 White Blood Count 16.1 Red Blood Count 4.66 Hemoglobin 10.7 Hematocrit 34.5 Mean Corpuscular Volume 74.0 Mean Corpuscular Hemoglobin 23.0 Mean Corpuscular Hemoglobin 31.2 Concent Red Cell Distribution Width 19.5 Platelet Count 219 Mean Platelet Volume 8.4 Neutrophils (%) (Auto) 91.1 Lymphocytes (%) (Auto) 3.2 Monocytes (%) (Auto) 5.0 Eosinophils (%) (Auto) 0.0 Basophils (%) (Auto) 0.7 Neutrophils # (Auto) 14.6 Lymphocytes # (Auto) 0.5 Monocytes # (Auto) 0.8 Eosinophils # (Auto) 0.0 Basophils # (Auto) 0.1 CBC Comment AUTO DIFF Differential Comment AUTO DIFF CONFIRMED Activated Partial 29.4 Thromboplast Time Sodium Level 138 Potassium Level 3.3 Chloride Level 97 Carbon Dioxide Level 34.3 Anion Gap 7 Blood Urea Nitrogen 23 Creatinine 0.90 Estimat Glomerular Filtration 98 Rate Random Glucose 146 Calcium Level 8.6 Total Bilirubin 1.0 Aspartate Amino Transf 31 (AST/SGOT) Alanine Aminotransferase 27 (ALT/SGPT) Alkaline Phosphatase 50 Total Protein 6.8 Albumin 2.4 Date/Time Procedure Status Source Growth 04/27/16 16:35 Gram Stain - Final Complete Sputum Endotracheal 04/27/16 16:35 Sputum Culture - Final Complete Pseudomonas Aeruginosa Lungs: Clear Narrative Exam TRACH INTACT, NO AIR LEAK A/P Assessment and Plan DAMAGED TRACHEOSTOMY, MORBID OBESITY, PNEUMONIA DW DR PUGA AT BEDSIDE. PT IS TOO UNSTABLE FOR TRACH CHANGE AT THIS TIME. HE IS ON HIGH FI02 AND PEEP AND LIKELY WOULD NOT TOLERATE BEING OFF VENT AT ALL EVEN FOR SHORT PERIOD TO EXCHANGE TRACH. IF WE CANNOT EXCHANGE TRACH QUICKLY HE WILL LIKELY ARREST AND . HE WILL LIKELY IMMEDIATELY DESATURATE EVEN IF TRACH CHANGE ONLY TAKES A FEW SECONDS. BALLOON IS STAYING INFLATED WITH CURRENT TECHNIQUE. I HAVE RECOMMENDED WE OBTAIN A CUFF REPAIR KIT FROM [employer] AND LEAVE THE TRACH IN PLACE. OK TO BRONCH PT THIS WILL NOT AFFECT CUFF. CAN INFLATE CUFF PRN WITH 23 GA NEEDLE OR ANGIOCATH. CLAMP TUBING WITH HEMOSTAT. I DO NOT THINK IT IS SAFE TO TRANSPORT PT TO OR AND TRY TO EXCHANGE TRACHEOSTOMY ON THESE HIGH VENT SETTINGS. I FEAR THE PATIENT WILL ARREST IF WE TRY ANY AIRWAY MANIPULATION. HE NEEDS TO HAVE SOME RESERVE BEFORE WE PROCEED. Dannie Arrieta MD May 01, 2016 08:35
[2016-05-01] MEDS: RESP: BUDESONIDE 0.5 MG/2 ML NEB NEB SCH ×2 (08:54→20:27)
[2016-05-01] MEDS: CHLORHEXIDINE 0.12% (ORAL KIT) 15 ML CUP MT SCH ×2 (09:08→22:48)
[2016-05-01] MEDS: RESP: COLISTIN 150 MG VIAL NEB SCH ×2 (09:09→20:27)
[2016-05-01] MEDS: MIDAZOLAM 100 MG/NS 100 ML DRIP Premix IV SCH ×3 (09:10→22:44)
--- NOTE | 2016-05-01 09:32 | HHI.IDPN ---
Subjective Subjective Remarks Notes reviewed D/W RN Febrile to 101 FiO2 remains at 0.8 Sedated on the vent BP ok Sputum with MDR PSAE, S to Zerbaxa Antibiotics Zerbaxa Lines PICC RUE Past Medical History Chronic Respiratory Failure s/p Tracheostomy 4 years ago Morbid Obesity w/ BMI 67.6 Atrial fibrillation Pulmonary embolism 4 years ago Anxiety CHF (Echo 06/07/2014 w/ EF 40-45%; ECHO 08/2015 showing a grossly normal systolic function) HTN Hypothyroidism Past Surgical History Tracheostomy Tonsillectomy Allergies: Coded Allergies: No Known Allergies (Unverified , 09/16/15) Objective . Vital Signs Date Time Temp Pulse Resp B/P Pulse Ox O2 Delivery O2 Flow Rate FiO2 05/01/16 08:56 93 80 05/01/16 06:19 22 05/01/16 06:00 67 05/01/16 04:29 94 80 05/01/16 04:00 101.0 67 22 143/73 94 05/01/16 04:00 80 05/01/16 04:00 67 05/01/16 02:00 64 05/01/16 01:15 94 80 05/01/16 00:00 101.2 65 22 138/70 94 05/01/16 00:00 80 05/01/16 00:00 65 04/30/16 22:00 65 04/30/16 20:00 100.6 66 22 137/69 93 04/30/16 20:00 80 04/30/16 20:00 66 04/30/16 19:18 93 80 04/30/16 18:00 63 04/30/16 16:45 80 04/30/16 16:00 63 04/30/16 16:00 100.0 63 22 137/66 92 04/30/16 16:00 80 04/30/16 15:42 92 80 04/30/16 14:00 66 04/30/16 12:11 92 80 04/30/16 12:00 80 04/30/16 12:00 66 04/30/16 12:00 100.5 66 22 126/63 91 04/30/16 10:00 63 04/30/16 04/30/16 05/01/16 15:00 23:00 07:00 Intake Total 1684 ml 1306 ml 1414 ml Output Total 725 ml 3000 ml 1550 ml Balance 959 ml -1694 ml -136 ml IV Total 1359 ml 1086 ml 1105 ml Tube Feeding 265 ml 160 ml 219 ml Other 60 ml 60 ml 90 ml Output Urine Total 725 ml 3000 ml 1550 ml . Laboratory Tests Test 04/29/16 05/01/16 15:17 05:45 White Blood Count 15.3 TH/MM3 16.1 TH/MM3 Red Blood Count 4.54 MIL/MM3 4.66 MIL/MM3 Hemoglobin 10.7 GM/DL 10.7 GM/DL Hematocrit 34.4 % 34.5 % Mean Corpuscular Volume 75.8 FL 74.0 FL Mean Corpuscular Hemoglobin 23.5 PG 23.0 PG Mean Corpuscular Hemoglobin 31.0 % 31.2 % Concent Red Cell Distribution Width 19.8 % 19.5 % Platelet Count 209 TH/MM3 219 TH/MM3 Mean Platelet Volume 8.3 FL 8.4 FL Neutrophils (%) (Auto) 91.1 % Lymphocytes (%) (Auto) 3.2 % Monocytes (%) (Auto) 5.0 % Eosinophils (%) (Auto) 0.0 % Basophils (%) (Auto) 0.7 % Neutrophils # (Auto) 14.6 TH/MM3 Lymphocytes # (Auto) 0.5 TH/MM3 Monocytes # (Auto) 0.8 TH/MM3 Eosinophils # (Auto) 0.0 TH/MM3 Basophils # (Auto) 0.1 TH/MM3 CBC Comment AUTO DIFF Differential Comment AUTO DIFF CONFIRMED Laboratory Tests Test 04/29/16 04/30/16 04/30/16 04/30/16 17:20 02:10 06:40 14:50 Potassium Level 3.5 MEQ/L 3.9 MEQ/L 3.7 MEQ/L 3.6 MEQ/L Phosphorus Level 3.0 MG/DL Test 04/30/16 04/30/16 05/01/16 20:20 23:40 05:45 Sodium Level 138 MEQ/L 139 MEQ/L 138 MEQ/L Potassium Level 3.3 MEQ/L 3.5 MEQ/L 3.3 MEQ/L Chloride Level 96 MEQ/L 97 MEQ/L 97 MEQ/L Carbon Dioxide Level 36.1 MEQ/L 35.5 MEQ/L 34.3 MEQ/L Anion Gap 6 MEQ/L 7 MEQ/L 7 MEQ/L Blood Urea Nitrogen 23 MG/DL 23 MG/DL 23 MG/DL Creatinine 0.86 MG/DL 0.91 MG/DL 0.90 MG/DL Estimat Glomerular Filtration 103 ML/MIN 97 ML/MIN 98 ML/MIN Rate Random Glucose 136 MG/DL 148 MG/DL 146 MG/DL Calcium Level 8.5 MG/DL 8.6 MG/DL 8.6 MG/DL Total Bilirubin 1.0 MG/DL Aspartate Amino Transf 31 U/L (AST/SGOT) Alanine Aminotransferase 27 U/L (ALT/SGPT) Alkaline Phosphatase 50 U/L Total Protein 6.8 GM/DL Albumin 2.4 GM/DL Imaging Chest X-Ray 04/30/16 0000 Signed Impressions: Service Date/Time: Saturday, April 30, 2016 07:43 - CONCLUSION: 1. Bilateral airspace disease greater in the right lower lobe. 2. Right-sided PICC line with tip not well-seen but appears to be in the right atrium. Vishnu Woodward MD Abdomen X-Ray 04/29/16 0000 Signed Impressions: Service Date/Time: Friday, April 29, 2016 07:12 - CONCLUSION: Suspect Dobbhoff tube in the distal stomach. Garcia Lujan MD Physical Exam GENERAL: This is a morbidly obese male, sedated, on the vent, not in distress. SKIN: Cool and moist. Generalized rash. No cyanosis noted. HEAD: Atraumatic. Normocephalic. No temporal or scalp tenderness. EYES: [place] conjunctivae. Pupils equal round and reactive. No scleral icterus. Has mild conjunctival injection bilaterally. ENT: Nose without purulent drainage. Moist mucosa. Has a lot of oral secretions. NECK: Short and obese, trach site ok. Supple, no meningeal signs. CARDIOVASCULAR: Regular rate and rhythm without murmurs, gallops, or rubs. Distant heart sounds RESPIRATORY: Decreased BS bilaterally. GASTROINTESTINAL: Abdomen soft, morbidly obese, no reaction to palpation, not distended. Bowel sounds presentr and hypoactive. MUSCULOSKELETAL: Extremities without clubbing, cyanosis. Has mild pitting edema. NEUROLOGICAL: Sedated PSYCH: Unable to assess LINE: PICC in RUE, no evidence of infection : [place] in place, urine looks clear Assessment & Plan Remarks IMPRESSION Chronic respiratory failure, has trach, has HCAP - C/S with MDR PSAE MDR PSAE PNA Fevers higher, ?new infection Leukocytosis, due to PNA, and partly due to steroids Morbid obesity Hx PE RECOMMENDATION Continue Zerbaxa Continue colistin nebs Repeat 2 BC today UA and C/S Add Diflucan Monitor progress Follow CBC Waiting for trach revision - waiting for FiO2 to be lower D/W Dr Morgan ([facility]) Dana Tam MD May 01, 2016 09:31
--- NOTE | 2016-05-01 10:35 | HHI.FPPN ---
Subjective Remarks Febrile up to 101.2 overnight. Vitals otherwise stable. FiO2 80% and PEEP 10. O2 saturation 93-94%. Intake 4404mL, output 5275mL, balance -871mL. (Allegra Ko MD R2) Objective Vitals Vital Signs Date Time Temp Pulse Resp B/P Pulse Ox O2 Delivery O2 Flow Rate FiO2 05/01/16 08:56 93 80 05/01/16 06:19 22 05/01/16 06:00 67 05/01/16 04:29 94 80 05/01/16 04:00 101.0 67 22 143/73 94 05/01/16 04:00 80 05/01/16 04:00 67 05/01/16 02:00 64 05/01/16 01:15 94 80 05/01/16 00:00 101.2 65 22 138/70 94 05/01/16 00:00 80 05/01/16 00:00 65 04/30/16 22:00 65 04/30/16 20:00 100.6 66 22 137/69 93 04/30/16 20:00 80 04/30/16 20:00 66 04/30/16 19:18 93 80 04/30/16 18:00 63 04/30/16 16:45 80 04/30/16 16:00 63 04/30/16 16:00 100.0 63 22 137/66 92 04/30/16 16:00 80 04/30/16 15:42 92 80 04/30/16 14:00 66 04/30/16 12:11 92 80 04/30/16 12:00 80 04/30/16 12:00 66 04/30/16 12:00 100.5 66 22 126/63 91 I/O 04/30/16 04/30/16 04/30/16 05/01/16 05/01/16 05/01/16 07:00 15:00 23:00 07:00 15:00 23:00 Intake Total 1273 ml 1684 ml 1306 ml 1414 ml Output Total 1000 ml 725 ml 3000 ml 1550 ml Balance 273 ml 959 ml -1694 ml -136 ml IV Total 1133 ml 1359 ml 1086 ml 1105 ml Tube Feeding 140 ml 265 ml 160 ml 219 ml Other 60 ml 60 ml 90 ml Output Urine Total 1000 ml 725 ml 3000 ml 1550 ml (Allegra Ko MD R2) Result Diagram: 05/01/16 0545 05/01/16 0545 Imaging Last Impressions Chest X-Ray 05/01/16 0600 Signed Impressions: Service Date/Time: Sunday, May 01, 2016 02:11 - CONCLUSION: Overall image quality is limited due to patient body habitus. Again suspected the bilateral lower lung infiltrates. Jeremiah Tuttle MD Abdomen X-Ray 04/29/16 0000 Signed Impressions: Service Date/Time: Friday, April 29, 2016 07:12 - CONCLUSION: Suspect Dobbhoff tube in the distal stomach. Garcia Lujan MD Objective Remarks GENERAL: Sedated in bed, on mechanical ventilation, NG tube in place. SKIN: Warm and dry. No rashes or lesions. HEAD: Normocephalic. Atraumatic. ENT: No nasal drainage. Tracheotomy site is clean and dry without drainage. NECK: No JVD. CARDIOVASCULAR: Regular rate and rhythm without murmurs, gallops, or rubs. Peripheral pulses 2+. RESPIRATORY: On mechanical ventilation. Clear to auscultation bilaterally. No rales or rhonchi. GASTROINTESTINAL: Abdomen soft, non-tender, obese, normal BS. Unable to assess for organomegaly or masses. MUSCULOSKELETAL: Lower extremities edematous. NEURO: Sedated. (Allegra Ko MD R2) Urinary Catheter: Yes Date of Insertion: Apr 24, 2016 (Allegra Ko MD R2) Date of Insertion: Apr 26, 2016 Line: PICC Side: Right (Allegra Ko MD R2) A/P Assessment and Plan 31 year old male with a PMH of chronic respiratory failure s/p tracheostomy 4 years ago, morbid obesity with BMI 67.6, atrial fibrillation and pulmonary embolism on Xarelto, CHF, and h/o HTN in long-term rehab at [facility] presented to the ED after having low oxygen saturation at 82% on RA. He was admitted for shortness of breath likely secondary to a combination of HCAP, COPD exacerbation and CHF exacerbation. He is currently on mechanical ventilation in the intensive care unit and being managed by critical care. Discharge Planning Unclear timetable at this time. (Allegra Ko MD R2) Attending Attestation Patient seen and examined. Case reviewed and discussed Agree with plan of care as discussed with me and documented in the resident note. (Bernice Garcia MD) Problem List: (1) On mechanically assisted ventilation Status: Acute Plan: Critical care actively managing acute hypercapnic and hypoxemic respiratory failure and HCAP at this time Patient placed on mechanical ventilation on 04/24, FiO2 now 80% with PEEP 10 Daily attempts to decrease FiO2 and PEEP to stabilize patient for tracheostomy exchange General surgery consulted for a trach exchange as patients trach was found to have a leak. Patient will need a trach exchange as soon as possible. GS planning for trach exchange tentative given patient continuing to need increased PEEP; will need continual reassessment Continue Solumedrol 60 mg IV q6h (2) HCAP (healthcare-associated pneumonia) Status: Acute Plan: Febrile overnight Leukocytosis 15.3 on steroids Repeat ABG on 04/26 showed improvement with CO2 56 with pH 7.40 04/24 BCx no growth CXR 04/29 showing stable bibasilar consolidative infiltrates 04/30 CXR shows bilateral airspace disease greater in the right lower lobe 04/27 Sputum culture growing resistant pseudomonas Zosyn 4.5gm IV q6h (04/24 - dced 04/29), Vancomycin 2gm IV q12h, Levaquin 750mg IV q24h (04/24-04/30) - Infectious Disease consulted- started Zerbaxa 1.5g IV Q8H for pseudomonas coverage * Colistin nebs * Diflucan - Duonebs q2h (3) CHF (congestive heart failure) Status: Chronic Plan: Last ECHO 09/18/2015 showing a grossly normal systolic function with no definitive EF as it was difficult to assess, ECHO on 05/2014 with EF of 40-45% with mildly dilated left atrium 04/25 ECHO was limited due to poor image quality, EF could not be adequately estimated. Systolic function appears to be grossly normal. BNP on admission 419, repeat BNP 151 -Lasix IV drip; monitor I&Os (4) Atrial fibrillation Status: Chronic Plan: Last EKG in sinus rhythm RRR on exam Home dose of Xarelto 20 mg po daily has been held in anticipation of surgery. Currently on heparin drip. (5) Tracheostomy present Status: Chronic Plan: General surgery consulted for trach exchange given current trach with leak. Xarelto and Lovenox have been held in anticipation of surgery On heparin drip GS plans for tracheostomy exchange to a new one with a working cuff once ventilator settings are weaned down. * Continue to inflate cuff on PRN basis. (6) HTN (hypertension) Status: Chronic Plan: BPs stable Hold home BP medications (7) Morbid obesity with BMI of 60.0-69.9, adult Status: Chronic Plan: Likely contributing to chronic respiratory issues (8) Hypothyroidism Status: Chronic Plan: Synthroid 25 mcg IV daily (9) Nutrition, metabolism, and development symptoms Status: Acute Plan: Fluids: none Electrolytes: Monitor and replete when necessary per protocol Nutrition: NG tube, tube feeds with Glucerna 30ml/hr DVT PPx: Heparin drip. Holding Lovenox and Xarelto sdw Dr. Canales and Rosie Abel, MS4 dw Dr. Garcia (Allegra Ko MD R2) Problem Qualifiers (1) CHF (congestive heart failure): Qualified Code: I50.9 - Acute on chronic congestive heart failure, unspecified congestive heart failure type (2) Atrial fibrillation: Qualified Code: I48.2 - Chronic atrial fibrillation (3) HTN (hypertension): Qualified Code: I10 - Essential hypertension (4) Hypothyroidism: Qualified Code: E03.9 - Hypothyroidism, unspecified type Allegra Ko MD R2 May 01, 2016 10:35 Bernice Garcia MD May 06, 2016 10:18
[2016-05-01] MEDS ORDERED: PHARMACY ORDERED LAB XX ONE (11:45)
[2016-05-01] MEDS: POTASSIUM CHLOR 40 MEQ PREMIX 100 ML IV PRN (11:50)
--- NOTE | 2016-05-01 14:06 | HHI.CCPN ---
Subjective Remarks/Hospital Course 04/24: Wilfrido Fortune is a 31 year old male with past medical history of chronic respiratory failure s/p tracheostomy 4 years ago, super morbid obesity (BMI 68) , atrial fibrillation and pulmonary embolism on Xarelto, COPD, CHF and h/o HTN. Patient presented from [facility] with low oxygen saturation apparently his oxygen saturation was 82% on RA. He was placed back on 6L of oxygen via his trach mask and given a breathing treatment, initially improved however he started drifting back to low 80s again. Apparently patient had been getting treatment for pneumonia at the rehabilitation facility. In the ER chest x-ray showed bibasilar infiltrates and pulmonary edema. [facility] was [facility] and was started on IV steroids IV vancomycin and Zosyn and Levaquin for healthcare associated pneumonia. ABG after admission was pH of 7.42 PCO2 of 61 and PO2 55. Repeat ABG at 5 PM showed pH of 7.26 PCO2 of 85 and PO2 of 70 and patient was started on BiPAP by the [facility] [place]. ABG at 10:15 showed worsening CO2 retention with pH 7.16 PCO2 108 and PO2 of 98. At that time critical care medicine was consulted After receiving the consult, Dr. Zelaya immediately ordered placement on for full mechanical ventilatory support and starting sedation for ventilator synchrony. Dr. Zelaya evaluated the patient in ICU. After starting ACV, patient was more awake but there was a significant amount of air leak around his tracheostomy. Patient has a Shiley 6.0 Proximal XLT, but the packing machine pilot can router balloon had been cut off. Vent settings changed from ACV to pressure control with inspiratory pressure of 25, which improved the tidal volume he was receiving. General surgery consulted for trach exchange in a.m. Solu-Medrol increased to 60 mg IV every 6 hours after 125 mg bolus. Additional 2 mg IV Bumex had been ordered. Scheduled and when necessary breathing treatment ordered. 04/25: Patient remains on mechanical ventilation via tracheostomy. Discussed with Dr. Dannie arrieta from general surgery. He inflated air in the cuff using a Seldinger needle and then applied a hemostat with which cuff appeared to stay inflated and patient started volume improved. He plans to change out tracheostomy once patient is a little more stable in the next 24-48 hours in the OR. 04/26: Afebrile. Tracheostomy cuff remains inflated, with hemostat secured. Tidal volumes greater than 400 cc. Patient continues on fentanyl and propofol infusions, with a RASS score of 0. Patient complains of discomfort in bed, requesting larger more comfortable bed. FiO2 decreased to 80% this a.m., with close monitoring to be trended with O2 sat of 94% discussion with Dr. Arrieta this a.m.. The patient is still too unstable secondary to respiratory insufficiency to go to the OR today, will begin therapeutic anticoagulation today secondary to history of PE and other risk factors. 04/27: Afebrile. Tmax 97.6. Overnight the patient required increasing O2 concentrations. Patient's trach cuff required reinflation 2 overnight, maintaining volumes 400-500 cc per breath. The patient's FiO2 currently is 1.0 , O2 sat 94-96%. The patient received PICC line yesterday secondary to difficult IV access and nutrition requirements, will begin PPN tonight. The patient remains optimally sedated for ventilator's synchrony, and minimization of agitation. Currently requirements include propofol Versed and fentanyl infusions. 04/28: Tmax 98.7. The patient still requires and increasing O2 concentrations, Flolan initiated last night FiO2 was significantly decreased to 60% ,however this a.m. patient's O2 sat remained mid 80s with a requirement of increasing PEEP to 11 and FiO2 return to 100% currently aggressively utilizing recruitment maneuvers to decrease O2 and PEEP requirements for transfer to the OR tomorrow for exchange of tracheostomy apparatus. The patient continues to be sedated for patient safety and ventilator synchrony. 04/29:Tmax 100.0. Overnight the patient was diuresed approximately 5 L. The patient continues on a Lasix infusion. The FiO2 was significantly decrease post diuresis to 0.65, the patient continues on a PEEP of 12 with O2 saturations 93-94%. Successful placement of Dobbhoff tube, early this a.m. we' ll begin tube feeds this a.m. and discontinue PPN. General Surgery contacted this a.m. regarding tracheostomy exchange for scheduled time. Patient's Lovenox is held for OR, will place on heparin infusion, procedures time is scheduled for later today. The patient continues to be on sedation for safety to prevent dislodgment out tracheostomy tube. Radiological imaging studies reveal a loop and PICC line, will reconsult PICC team. 04/30: Afebrile. It is felt at this time by General Surgery, that the airway is secure as evidenced by lung volumes have been maintained for the last 3 days., Will attempt to repair packing machine pilot can router balloon, if unsuccessful in attempts at repairing packing machine pilot can router balloon, general surgery would consider exchanging the Shiley 60 XLT trach on an elective basis,when the patient was no longer critically ill. It is felt at this time, if tracheostomy was exchanged at this point in time the risks outweigh the benefit, and could result and possible . Attempts were made to decrease the PEEP to 8 , this afternoon and within an half an hour, the patient went into jacques pulmonary edema, copious pink frothy some sputum was noted to be emanating from the tracheostomy tube. O2 sat saturations dropped into the 60s,acutely. The patient was bolused with 80 mg of Lasix and 500 mg of Diamox and the PEEP was increased to 12. The patient's oxygenation improved with manual Ambu bag being and the PEEP of 12. The PICC line was power flushed early this morning repeat x-ray revealed the loop and line resolved, no resistance noted. 05/01: Tmax 101.0. The patient remains sedated fentanyl and propofol infusion. Pulmonary edema resolved, last evening. The patient continues on Lasix infusion , for continued diuresis. The patient has been able to maintain a O2 saturation of 94%, with FiO2 of 0.80 and PEEP of 12. Specialty bed ordered, due to patient's immobility and body habitus, plans to transfer patient to specialty bed with close control and monitoring of tracheostomy. Objective - Vital Signs Date Time Temp Pulse Resp B/P Pulse Ox O2 Delivery O2 Flow Rate FiO2 05/01/16 12:42 93 80 05/01/16 12:00 99.9 74 22 144/78 Intake and Output 04/30/16 04/30/16 05/01/16 08:00 16:00 00:00 Intake Total 1273 ml 1684 ml 1306 ml Output Total 1000 ml 725 ml 3000 ml Balance 273 ml 959 ml -1694 ml Result Diagram: 05/01/16 0545 05/01/16 0545 Other Results Laboratory Tests Test 04/29/16 04/29/16 04/29/16 01:45 04:20 09:10 Potassium Level 3.7 MEQ/L 3.7 MEQ/L 5.0 MEQ/L (3.5-5.1) (3.5-5.1) (3.5-5.1) Magnesium Level 2.3 MG/DL 2.4 MG/DL (1.5-2.5) (1.5-2.5) White Blood Count 15.3 TH/MM3 (4.0-11.0) Red Blood Count 4.76 MIL/MM3 (4.50-5.90) Hemoglobin 11.3 GM/DL (13.0-17.0) Hematocrit 35.6 % (39.0-51.0) Mean Corpuscular Volume 74.8 FL (80.0-100.0) Mean Corpuscular Hemoglobin 23.7 PG (27.0-34.0) Mean Corpuscular Hemoglobin 31.7 % Concent (32.0-36.0) Red Cell Distribution Width 19.6 % (11.6-17.2) Platelet Count 241 TH/MM3 (150-450) Mean Platelet Volume 8.3 FL (7.0-11.0) Prothrombin Time 11.4 SEC (9.8-11.4) Prothromb Time International 1.1 RATIO Ratio Activated Partial 27.4 SEC Thromboplast Time (22.6-28.8) Sodium Level 142 MEQ/L (136-145) Chloride Level 99 MEQ/L (98-107) Carbon Dioxide Level 37.2 MEQ/L (21.0-32.0) Anion Gap 6 MEQ/L (5-15) Blood Urea Nitrogen 18 MG/DL (7-18) Creatinine 0.96 MG/DL (0.60-1.30) Estimat Glomerular Filtration 91 ML/MIN (>89) Rate Random Glucose 140 MG/DL (74-106) Calcium Level 9.0 MG/DL (8.5-10.1) Phosphorus Level 2.2 MG/DL (2.5-4.9) Laboratory Tests Test 04/28/16 04/28/16 05:05 05:10 Blood Gas Puncture Site PICC LINE Blood Gas Patient Temperature 98.6 Venous Blood pH 7.47 (7.360-7.400) Venous Blood Partial Pressure 48 mmHg (44-48) CO2 Venous Blood Partial Pressure 48 mmHg (35-40) O2 Venous Blood HCO3 35 mmol/L (22-26) Venous Blood Oxygen Saturation 79 % (70-76) Venous Blood Oxygen Content 12.4 Vol % (9.0-17.0) Venous Blood Base Excess 10.2 mmol/L (-2-2) Oxygen Delivery Device VENTILATOR Blood Gas Ventilator Setting PRVC/AC Blood Gas Inspired Oxygen 60 % White Blood Count 13.5 TH/MM3 (4.0-11.0) Red Blood Count 4.65 MIL/MM3 (4.50-5.90) Hemoglobin 10.9 GM/DL (13.0-17.0) Hematocrit 34.8 % (39.0-51.0) Mean Corpuscular Volume 74.8 FL (80.0-100.0) Mean Corpuscular Hemoglobin 23.3 PG (27.0-34.0) Mean Corpuscular Hemoglobin 31.2 % Concent (32.0-36.0) Red Cell Distribution Width 19.6 % (11.6-17.2) Platelet Count 274 TH/MM3 (150-450) Mean Platelet Volume 8.2 FL (7.0-11.0) Sodium Level 139 MEQ/L (136-145) Potassium Level 3.2 MEQ/L (3.5-5.1) Chloride Level 94 MEQ/L (98-107) Carbon Dioxide Level 34.9 MEQ/L (21.0-32.0) Anion Gap 10 MEQ/L (5-15) Blood Urea Nitrogen 18 MG/DL (7-18) Creatinine 0.79 MG/DL (0.60-1.30) Estimat Glomerular Filtration 114 ML/MIN Rate (>89) Random Glucose 140 MG/DL (74-106) Calcium Level 8.3 MG/DL (8.5-10.1) Phosphorus Level 2.9 MG/DL (2.5-4.9) Magnesium Level 1.8 MG/DL (1.5-2.5) Laboratory Tests Test 04/24/16 04/24/16 04/24/16 04/24/16 12:11 12:35 12:40 13:50 Blood Gas Puncture Site LT RADIAL Blood Gas Patient Temperature 98.6 Blood Gas HCO3 39 mmol/L Blood Gas Base Excess 13.9 mmol/L Blood Gas Oxygen Saturation 84 % Arterial Blood pH 7.42 Arterial Blood Partial 61 mmHg Pressure CO2 Arterial Blood Partial 55 mmHG Pressure O2 Arterial Blood Oxygen Content 15.3 Vol % Arterial Blood 2.0 % Carboxyhemoglobin Arterial Blood Methemoglobin 2.1 % Blood Gas Hemoglobin 12.9 G/DL Oxygen Delivery Device MASK Blood Gas Liter Flow 6 L/M Blood Gas Inspired Oxygen 50 % White Blood Count 12.1 TH/MM3 Red Blood Count 5.31 MIL/MM3 Hemoglobin 12.5 GM/DL Hematocrit 40.4 % Mean Corpuscular Volume 76.2 FL Mean Corpuscular Hemoglobin 23.6 PG Mean Corpuscular Hemoglobin 31.0 % Concent Red Cell Distribution Width 19.2 % Platelet Count 355 TH/MM3 Mean Platelet Volume 8.0 FL Neutrophils (%) (Auto) 75.1 % Lymphocytes (%) (Auto) 16.2 % Monocytes (%) (Auto) 6.9 % Eosinophils (%) (Auto) 1.0 % Basophils (%) (Auto) 0.8 % Neutrophils # (Auto) 9.1 TH/MM3 Lymphocytes # (Auto) 2.0 TH/MM3 Monocytes # (Auto) 0.8 TH/MM3 Eosinophils # (Auto) 0.1 TH/MM3 Basophils # (Auto) 0.1 TH/MM3 CBC Comment AUTO DIFF Differential Comment AUTO DIFF CONFIRMED Polychromasia 2.1 % Prothrombin Time 14.2 SEC Prothromb Time International 1.4 RATIO Ratio Activated Partial 30.3 SEC Thromboplast Time Sodium Level 135 MEQ/L Potassium Level 4.2 MEQ/L Chloride Level 95 MEQ/L Carbon Dioxide Level 37.4 MEQ/L Anion Gap 3 MEQ/L Blood Urea Nitrogen 21 MG/DL Creatinine 1.00 MG/DL Estimat Glomerular Filtration 87 ML/MIN Rate Random Glucose 86 MG/DL Calcium Level 8.9 MG/DL Total Creatine Kinase 77 U/L Troponin I LESS THAN 0.02 NG/ML B-Type Natriuretic Peptide 419 PG/ML Lactic Acid Level 1.1 mmol/L Test 04/24/16 04/24/16 04/24/16 04/24/16 16:52 18:00 19:10 20:25 Blood Gas Puncture Site RT RADIAL Blood Gas Patient Temperature 98.6 Blood Gas HCO3 37 mmol/L Blood Gas Base Excess 9.5 mmol/L Blood Gas Oxygen Saturation 86 % Arterial Blood pH 7.26 Arterial Blood Partial 85 mmHg Pressure CO2 Arterial Blood Partial 70 mmHG Pressure O2 Arterial Blood Oxygen Content 15.2 Vol % Arterial Blood 1.6 % Carboxyhemoglobin Arterial Blood Methemoglobin 2.3 % Blood Gas Hemoglobin 12.6 G/DL Oxygen Delivery Device MASK Blood Gas Liter Flow 6 L/M Blood Gas Inspired Oxygen 50 % Urine Color YELLOW Urine Turbidity CLEAR Urine pH 5.5 Urine Specific [place] 1.009 Urine Protein NEG mg/dL Urine Glucose (UA) NEG mg/dL Urine Ketones NEG mg/dL Urine Occult Blood NEG Urine Nitrite NEG Urine Bilirubin NEG Urine Urobilinogen LESS THAN 2.0 MG/DL Urine Leukocyte Esterase NEG Urine RBC LESS THAN 1 /hpf Urine WBC 1 /hpf Urine Squamous Epithelial <1 /hpf Cells Urine Mucus FEW /lpf Microscopic Urinalysis Comment CULT NOT INDICATED Troponin I LESS THAN 0.02 NG/ML Nasal Screen MRSA (PCR) NEGATIVE Test 04/24/16 04/24/16 04/25/16 04/25/16 21:39 22:14 05:02 12:47 Total Creatine Kinase 79 U/L 127 U/L Sodium Level 139 MEQ/L 138 MEQ/L Potassium Level 4.1 MEQ/L 4.1 MEQ/L Chloride Level 97 MEQ/L 94 MEQ/L Carbon Dioxide Level 33.7 MEQ/L 35.7 MEQ/L Anion Gap 8 MEQ/L 8 MEQ/L Blood Urea Nitrogen 23 MG/DL 23 MG/DL Creatinine 1.02 MG/DL 0.97 MG/DL Estimat Glomerular Filtration 85 ML/MIN 90 ML/MIN Rate Random Glucose 132 MG/DL 123 MG/DL Calcium Level 8.6 MG/DL 8.1 MG/DL Troponin I LESS THAN 0.02 0.04 NG/ML NG/ML Vancomycin Level Trough 14.0 MCG/ML Blood Gas Puncture Site LT RADIAL LT RADIAL Blood Gas Patient Temperature 98.6 98.6 Blood Gas HCO3 37 mmol/L 34 mmol/L Blood Gas Base Excess 8.0 mmol/L 9.2 mmol/L Blood Gas Oxygen Saturation 92 % 92 % Arterial Blood pH 7.16 7.40 Arterial Blood Partial 108 mmHg 56 mmHg Pressure CO2 Arterial Blood Partial 96 mmHg 73 mmHg Pressure O2 Arterial Blood Oxygen Content 17.1 Vol % 15.5 Vol % Arterial Blood 1.0 % 1.3 % Carboxyhemoglobin Arterial Blood Methemoglobin 1.1 % 1.1 % Blood Gas Hemoglobin 13.2 G/DL 12.0 G/DL Oxygen Delivery Device BIPAP VENTILATOR Blood Gas Ventilator Setting IPAP18/[id number] PC/AC Blood Gas Inspired Oxygen 100 % 100 % White Blood Count 8.9 TH/MM3 Red Blood Count 4.78 MIL/MM3 Hemoglobin 11.7 GM/DL Hematocrit 36.1 % Mean Corpuscular Volume 75.4 FL Mean Corpuscular Hemoglobin 24.4 PG Mean Corpuscular Hemoglobin 32.3 % Concent Red Cell Distribution Width 19.1 % Platelet Count 306 TH/MM3 Mean Platelet Volume 8.0 FL Neutrophils (%) (Auto) 92.9 % Lymphocytes (%) (Auto) 6.2 % Monocytes (%) (Auto) 0.4 % Eosinophils (%) (Auto) 0.0 % Basophils (%) (Auto) 0.5 % Neutrophils # (Auto) 8.3 TH/MM3 Lymphocytes # (Auto) 0.6 TH/MM3 Monocytes # (Auto) 0.0 TH/MM3 Eosinophils # (Auto) 0.0 TH/MM3 Basophils # (Auto) 0.0 TH/MM3 CBC Comment AUTO DIFF Differential Comment AUTO DIFF CONFIRMED Creatine Kinase MB 1.9 NG/ML B-Type Natriuretic Peptide 151 PG/ML Test 04/26/16 04/26/16 04/26/16 00:00 06:55 07:10 Vancomycin Level Trough 16.7 MCG/ML Urine Color YELLOW Urine Turbidity CLOUDY Urine pH 6.0 Urine Specific [place] 1.041 Urine Protein 30 mg/dL Urine Glucose (UA) NEG mg/dL Urine Ketones NEG mg/dL Urine Occult Blood TRACE Urine Nitrite NEG Urine Bilirubin NEG Urine Urobilinogen LESS THAN 2.0 MG/DL Urine Leukocyte Esterase MOD Urine RBC 25 /hpf Urine WBC 8 /hpf Urine WBC Clumps RARE Urine Transitional Epithelial 1 /hpf Cells Urine Amorphous Sediment OCC Urine Bacteria OCC /hpf Microscopic Urinalysis Comment CATH-CULTURE IND White Blood Count 14.1 TH/MM3 Red Blood Count 5.13 MIL/MM3 Hemoglobin 12.2 GM/DL Hematocrit 38.3 % Mean Corpuscular Volume 74.6 FL Mean Corpuscular Hemoglobin 23.7 PG Mean Corpuscular Hemoglobin 31.8 % Concent Red Cell Distribution Width 19.6 % Platelet Count 279 TH/MM3 Mean Platelet Volume 8.2 FL Neutrophils (%) (Auto) 94.2 % Lymphocytes (%) (Auto) 3.1 % Monocytes (%) (Auto) 2.3 % Eosinophils (%) (Auto) 0.0 % Basophils (%) (Auto) 0.4 % Neutrophils # (Auto) 13.3 TH/MM3 Lymphocytes # (Auto) 0.4 TH/MM3 Monocytes # (Auto) 0.3 TH/MM3 Eosinophils # (Auto) 0.0 TH/MM3 Basophils # (Auto) 0.1 TH/MM3 CBC Comment AUTO DIFF Hematology Comments Laboratory Tests Test 04/24/16 04/25/16 22:14 05:02 Blood Gas Puncture Site LT RADIAL LT RADIAL Blood Gas Patient Temperature 98.6 98.6 Blood Gas HCO3 37 mmol/L 34 mmol/L (22-26) (22-26) Blood Gas Base Excess 8.0 mmol/L 9.2 mmol/L (-2-2) (-2-2) Blood Gas Oxygen Saturation 92 % (90-100) 92 % (90-100) Arterial Blood pH 7.16 7.40 (7.380-7.420) (7.380-7.420) Arterial Blood Partial 108 mmHg 56 mmHg (38-42) Pressure CO2 (38-42) Arterial Blood Partial 96 mmHg 73 mmHg Pressure O2 (61-120) (61-120) Arterial Blood Oxygen Content 17.1 Vol % 15.5 Vol % (12.0-20.0) (12.0-20.0) Arterial Blood 1.0 % (0-4) 1.3 % (0-4) Carboxyhemoglobin Arterial Blood Methemoglobin 1.1 % (0-2) 1.1 % (0-2) Blood Gas Hemoglobin 13.2 G/DL 12.0 G/DL (12.0-16.0) (12.0-16.0) Oxygen Delivery Device BIPAP VENTILATOR Blood Gas Ventilator Setting [id number]/[id number] PC/AC Blood Gas Inspired Oxygen 100 % 100 % Imaging Last 24 hours Impressions Chest X-Ray 05/01/16 06 Signed Impressions: Service Date/Time: Sunday, May 01, 2016 02:11 - CONCLUSION: Overall image quality is limited due to patient body habitus. Again suspected the bilateral lower lung infiltrates. Jeremiah Tuttle MD Last 24 hours Impressions Chest X-Ray 04/29/16 06 Signed Impressions: Service Date/Time: Friday, April 29, 2016 03:30 - CONCLUSION: 1. Stable bibasilar consolidative infiltrates. 2. Some coiling of the PICC line since prior exam with the tip of the PIC line now at the level of the origin of the superior vena cava. Jeremiah Tuttle MD Abdomen X-Ray 04/29/16 0000 Signed Impressions: Service Date/Time: Friday, April 29, 2016 07:12 - CONCLUSION: Suspect Dobbhoff tube in the distal stomach. Garcia Lujan MD Last 24 hours Impressions Chest X-Ray 04/27/16 0600 Signed Impressions: Service Date/Time: Wednesday, April 27, 2016 03:51 - CONCLUSION: 1. Tracheostomy tube in place. No pneumothorax. 2. Pulmonary venous congestion with some bibasilar infiltrates. Lázaro Frankel MD Objective Remarks GENERAL: Lying in bed, on mech vent via trach in situ, sedated SKIN: Warm and dry. HEAD: Normocephalic. Atraumatic. EYES: PERRL. No scleral icterus. No injection or drainage. ENT: No nasal drainage. Oral and nasal mucosa moist NECK: Shiley 6.0 Proximal XLT, the packing machine pilot can router balloon off, inflated and secured with hemostat. No leak noted CARDIOVASCULAR: Regular rate and rhythm without murmurs, gallops, or rubs. Distant heart sounds RESPIRATORY: On mechanical ventilation via tracheostomy. Maintenance of tidal volumes continued 400- 500cc currently. Air entry decreased bilaterally at bases. No wheezing, diminished throughout bilaterally. Patient diuresed, O2 sat improved 94% GASTROINTESTINAL: Abdomen soft, non-tender, obese, normal BS. Tube feeds NEURO: Optimal sedation with a RASS -2 on mechanical ventilation, on fentanyl, Versed and propofol infusion, to maintain ventilator synchrony. Urinary Catheter: Yes Milan insert reason: ICU Pt Getting Diuretics Date of Insertion: Apr 24, 2016 Date of Insertion: Apr 26, 2016 Line: PICC Side: Right Reason for Continuation Medication administration A/P Assessment and Plan ASSESSMENT Acute hypercapnic and hypoxemic respiratory failure Healthcare associated pneumonia Sepsis CHF exacerbation CO2 narcosis Tracheostomy packing machine pilot can router balloon damage Chronic Respiratory Failure s/p Tracheostomy 4 years ago (Shiley 6.0 Proximal XLT) COPD/obesity hypoventilation syndrome Morbid Obesity BMI 67 History of pulmonary embolism 4 years ago Chronic atrial fibrillation Anxiety CHF (Echo 2013 EF 40-45%; ECHO 08/2015 showing a grossly normal systolic function) Hypertension Hypothyroidism PLAN NEURO: CO2 narcosis Anxiety -Maintain optimal sedation, with RASS -2, in order to maintain tracheostomy position/placement -For ventilator synchrony continue Propofol , Versed and Fentanyl. - Tracheostomy exchange plan for in the future on an elective basis. We'll attempt utilization of a repair kit. -Awaiting receipt of tracheostomy repair kit RESP: Acute hypercapnic and hypoxemic respiratory failure Healthcare associated pneumonia Tracheostomy packing machine pilot can router balloon damage (Shiley 6.0 Proximal XLT) Chronic Respiratory Failure s/p Tracheostomy 4 years ago COPD/obesity hypoventilation syndrome History of pulmonary embolism 4 years ago Leukocytosis Pulmonary edema -Continue mechanical ventilation PC/AC rate 18, Insp pres 25, PEEP 12 Fio2 .80 , Titrate to keep SaO2 >90%. -Flolan initiated 04/27 -Gen. surgery consulted for tracheostomy tube exchange, risks currently outweigh benefits. Discussed with Dr. Dannie Arrieta on . He plans to do the tracheostomy exchange in the OR, under elective conditions . In the meanwhile cuff was inflated using a syringe and needle and subsequently hemostat used to clamp tubing to retain air in the cuff. -Healthcare associated pneumonia (MDRO) is being treated with IV Vancomycin, Zerbaxa and Levaquin, ID consulted follow-up recommendations -Sputum culture revealed Pseudomonas Colistin added per ID -Follow-up blood culture- -DuoNeb every 4 hours scheduled - Pulmicort BID (home med) -Continue IV Solu-Medrol to 60 mg every 6 hours -Continue to hold Xarelto in view of planned tracheostomy exchange . - Heparin infusion continued, will change to therapeutic Lovenox, since general surgery tracheostomy exchange will be elective -Chest x-ray bibasilar infiltrates unchanged CV: CHF exacerbation Pulmonary edema Chronic atrial fibrillation -Lasix infusion 10 mg/hour we'll monitor potassium every 6 hours - A. fib rate controlled -Change to therapeutic Lovenox 150 mg twice a day GI: Super morbid obesity with BMI of 68 -Begin tubefeeds Glucerna 30/hr -IV Protonix IV -SSI per ICU protocol : -BMP every 6 hours -Monitor renal function closely. -Lasix infusion 10 mg/hr - Milan catheter - Strict I&O ID: Healthcare associated pneumonia Sepsis MDRO Leukocytosis -Continue IV vancomycin, Zebaxa (Day 2)and Levaquin - Blood urine and blood culture NGTD -Wound culture Pseudomonas -Sputum culture-Pseudomonas -ID consulted, follow-up recommendations HEME: History of PE on chronic anticoagulation with Xarelto -Monitor CBC, CMP, coags -Xarelto for PE 4 yrs ago. -Hold Xarelto. -Change to Lovenox 150 mg twice a day ENDO: Hypothyroidism -Electrolyte replacement protocol -Continue levothyroxine 25 mcgs IV daily PROPH: -Bilateral lower extremity SCDs. Lovenox DVT prophylaxis. IV Protonix for GI prophylaxis LINES: - PICC line (day 6) Plan for general surgery to exchange tracheostomy on an elective basis, secondary to risk outweighed the benefits at this time. Plan for tracheostomy cuff repair, continue to closely monitor lung volumes. Patient currently requires a PEEP of 12, and aggressive diuresis to maintain recruitment of alveoli. This patient remains critically ill with one or more organ systems which are or may become a threat to life. I have spent in excess of 43 minutes discontinuously in the care and management of this patient. This time is exclusive of procedures, and includes, but is not limited to, evaluation of the patient, review of the medical record, discussions with family, consultants, nursing staff, or respiratory therapy, and documentation in the medical record. Discussed patient with RN at bedside. Physician Juana Cisneros MD May 01, 2016 14:06
[2016-05-01 14:39] LABS: BICARBONATE 33.3 MEQ/L (21.0-32.0); POTASSIUM 3.5 MEQ/L (3.5-5.1)
[2016-05-01] MEDS: ENOXAPARIN SODIUM 150 MG/ML SYRINGE SQ SCH (16:26)
[2016-05-01 18:59] LABS: BICARBONATE 34.2 MEQ/L (21.0-32.0); MAGNESIUM 2.6 MG/DL (1.5-2.5); POTASSIUM 3.3 MEQ/L (3.5-5.1)
[2016-05-01 19:05] LABS: APTT (PATIENT) 25.6 SEC (24.3-30.1)
[2016-05-01 19:17] LABS: BLOOD, URINE SMALL (NEG); COMMENT (UR) CULTURE INDICATED; CULTURE IF INDICATED CULTURE INDICATED; GLUCOSE,URINE NEG (NEG); KETONE, URINE NEG (NEG); MUCUS URINE FEW /lpf (OCC); NITRITE,URINE NEG (NEG); PH, URINE 5.5 (5.0-8.5); RENAL EPITHELIAL CELLS <1 /hpf; SQUAMOUS EPITHELIAL CELL URINE 11 /hpf (0-5); TRANSITIONAL EPI CELLS, URINE 1 /hpf; URINE COLOR YELLOW (YELLW/STRAW)
[2016-05-01] MEDS: POTASSIUM CHLORIDE 20 MEQ PWD PACKET NG SCH (22:00)
[2016-05-02] VITALS (18 sets, daily range): BP systolic 104–124; BP diastolic 52–66; PULSE 61–102; RESP 22; TEMP 99.6–101.5; O2SAT 84–95
[2016-05-02] MEDS: ENOXAPARIN SODIUM 150 MG/ML SYRINGE SQ SCH ×2 (04:00→16:51)
[2016-05-02] MEDS: POTASSIUM CHLORIDE 20 MEQ PWD PACKET NG SCH ×4 (04:00→22:22)
[2016-05-02] MEDS: CEFTOLOZANE-TAZOBACTAM INJ 1,500 MG in SODIUM CHLORIDE 0.9% INJ 100 ML IV SCH ×3 (04:00→20:06)
[2016-05-02] MEDS: EPOPROSTENOL NEB SOLUTION 50 NG/KG/MIN 100 ML NEB SCH ×6 (05:00→23:43)
[2016-05-02] MEDS: methylPREDNISolone SOD SUCC 40 MG/1 ML VIAL IV PUSH SCH ×3 (06:00→17:55)
[2016-05-02] MEDS: LEVOTHYROXINE SODIUM 100 MCG VIAL IV PUSH SCH (06:00)
[2016-05-02 06:38] LABS: AUTOMATED NEUTROPHIL # 12.5 TH/MM3 (1.8-7.7); EOSINOPHIL % 0.2 % (0.0-4.0); HEMATOCRIT 34.3 % (39.0-51.0); LYMPH % 9.1 % (9.0-44.0); LYMPHOCYTE # 1.4 TH/MM3 (1.0-4.8); MEAN CELL VOLUME 73.9 FL (80.0-100.0); MEAN CORPUSCULAR HGB CONC 31.1 % (32.0-36.0); MONO % 10.4 % (0.0-8.0); NEUT % 80.3 % (16.0-70.0); PLATELET COUNT 212 TH/MM3 (150-450); RED BLOOD COUNT 4.64 MIL/MM3 (4.50-5.90); RED CELL DISTRIBUTION WIDTH 19.6 % (11.6-17.2); WHITE BLOOD COUNT 15.6 TH/MM3 (4.0-11.0)
[2016-05-02 06:39] LABS: HEMO FLAGS AUTO DIFF
[2016-05-02 07:00] LABS: BICARBONATE 34.1 MEQ/L (21.0-32.0); MAGNESIUM 2.3 MG/DL (1.5-2.5)
[2016-05-02 07:02] LABS: POTASSIUM 2.8 MEQ/L (3.5-5.1)
[2016-05-02] MEDS: fentaNYL DRIP 250 ML IV SCH (07:50)
[2016-05-02] MEDS: MIDAZOLAM 100 MG/NS 100 ML DRIP Premix IV SCH (07:50)
[2016-05-02] MEDS: POTASSIUM PHOSPHATE INJ 30 MMOL in SODIUM CHLOR 0.9% 250 ML INJ 250 ML IV PRN (07:50)
[2016-05-02] MEDS: FUROSEMIDE INJ 100 MG in SODIUM CHLORIDE 0.9% INJ 90 ML IV SCH ×2 (07:50→16:52)
[2016-05-02] MEDS: PROPOFOL 1000 MG/100 ML INJ 100 ML IV SCH ×7 (07:51→16:53)
[2016-05-02] MEDS: FENOFIBRATE 48 MG TAB PO SCH (07:51)
[2016-05-02] MEDS: ALLOPURINOL 300 MG TAB PO SCH (07:51)
[2016-05-02] MEDS: ATORVASTATIN 10 MG TAB PO SCH (07:51)
[2016-05-02] MEDS: MONTELUKAST SODIUM 10 MG TAB PO SCH (07:51)
[2016-05-02] MEDS: SODIUM CHLORIDE 0.9% FLUSH 5 ML FLUSH FLUSH SCH ×2 (07:52→21:12)
[2016-05-02] MEDS: MICONAZOLE NITRATE 2% CREAM 15 GM TOP SCH ×2 (07:54→21:12)
[2016-05-02] MEDS: CHLORHEXIDINE 0.12% (ORAL KIT) 15 ML CUP MT SCH ×2 (07:55→22:23)
[2016-05-02] MEDS: RESP: COLISTIN 150 MG VIAL NEB SCH ×2 (08:24→20:45)
[2016-05-02] MEDS: RESP: BUDESONIDE 0.5 MG/2 ML NEB NEB SCH ×2 (08:24→19:48)
[2016-05-02 09:10] LABS: SCAN/DIFF AUTO DIFF CONFIRMED; TEARDROP RBCS 1+ (NORMAL)
--- NOTE | 2016-05-02 09:56 | HHI.FPPN ---
Subjective Remarks FiO2 80%, PEEP 12, O2 saturation 9193%. Intake 3984 mL, output 6100 mL, balance -2116 mL. Tmax 100.1 overnight. (Allegra Ko MD R2) Objective Vitals Vital Signs Date Time Temp Pulse Resp B/P Pulse Ox O2 Delivery O2 Flow Rate FiO2 05/02/16 08:25 91 80 05/02/16 08:00 100.1 83 22 122/63 91 05/02/16 08:00 80 05/02/16 08:00 83 05/02/16 06:00 72 05/02/16 04:00 71 05/02/16 04:00 92 80 05/02/16 04:00 99.6 61 22 118/61 94 05/02/16 04:00 80 05/02/16 02:00 67 05/02/16 01:00 93 80 05/02/16 00:00 80 05/02/16 00:00 63 05/02/16 00:00 99.7 66 22 123/63 94 05/01/16 22:08 94 80 05/01/16 22:00 68 05/01/16 20:24 95 80 05/01/16 20:00 67 05/01/16 20:00 99.9 67 22 126/65 94 05/01/16 20:00 80 05/01/16 18:00 71 05/01/16 16:00 99.7 81 22 135/69 92 05/01/16 16:00 90 05/01/16 16:00 81 05/01/16 15:09 93 90 05/01/16 14:00 74 05/01/16 12:42 93 80 05/01/16 12:00 99.9 74 22 144/78 93 05/01/16 12:00 73 05/01/16 12:00 80 05/01/16 10:00 74 I/O 05/01/16 05/01/16 05/01/16 05/02/16 05/02/16 05/02/16 07:00 15:00 23:00 07:00 15:00 23:00 Intake Total 1414 ml 1633 ml 1169 ml 1182 ml Output Total 1550 ml 1950 ml 2200 ml 1950 ml Balance -136 ml -317 ml -1031 ml -768 ml IV Total 1105 ml 1389 ml 953 ml 967 ml Tube Feeding 219 ml 244 ml 216 ml 215 ml Other 90 ml Output Urine Total 1550 ml 1950 ml 2200 ml 1950 ml (Allegra Ko MD R2) Result Diagram: 05/02/16 0555 05/02/16 0555 Imaging Last Impressions Chest X-Ray 05/01/16 0600 Signed Impressions: Service Date/Time: Sunday, May 01, 2016 02:11 - CONCLUSION: Overall image quality is limited due to patient body habitus. Again suspected the bilateral lower lung infiltrates. Jeremiah Tuttle MD Abdomen X-Ray 04/29/16 0000 Signed Impressions: Service Date/Time: Friday, April 29, 2016 07:12 - CONCLUSION: Suspect Dobbhoff tube in the distal stomach. Garcia Lujan MD Objective Remarks GENERAL: Sedated in bed, on mechanical ventilation, NG tube in place. SKIN: Warm and dry. No rashes or lesions. HEAD: Normocephalic. Atraumatic. ENT: No nasal drainage. Tracheotomy site is clean and dry without drainage. NECK: No JVD. CARDIOVASCULAR: Distant heart sounds. Regular rate and rhythm without murmurs, gallops, or rubs. Peripheral pulses 2+. RESPIRATORY: On mechanical ventilation. Clear to auscultation bilaterally. No rales or rhonchi. GASTROINTESTINAL: Abdomen soft, non-tender, obese, normal BS. Unable to assess for organomegaly or masses. MUSCULOSKELETAL: Lower extremities edematous. NEURO: Sedated. (Allegra Ko MD R2) Urinary Catheter: Yes Date of Insertion: Apr 24, 2016 (Allegra Ko MD R2) Vascular Central Line Catheter: Yes Date of Insertion: Apr 26, 2016 Line: PICC Side: Right (Allegra Ko MD R2) A/P Assessment and Plan 31 year old male with a PMH of chronic respiratory failure s/p tracheostomy 4 years ago, morbid obesity with BMI 67.6, atrial fibrillation and pulmonary embolism on Xarelto, CHF, and h/o HTN in long-term rehab at [facility] presented to the ED after having low oxygen saturation at 82% on RA. He was admitted for shortness of breath likely secondary to a combination of HCAP, COPD exacerbation and CHF exacerbation. He is currently in acute respiratory failure, on mechanical ventilation in the intensive care unit and being managed by critical care. Discharge Planning Unclear timetable at this time. (Allegra Ko MD R2) Attending Attestation Patient seen and examined. Case reviewed and discussed Agree with plan of care as discussed with me and documented in the resident note. (Bernice Garcia MD) Problem List: (1) On mechanically assisted ventilation Status: Acute Plan: Critical care actively managing acute hypercapnic and hypoxemic respiratory failure and HCAP at this time Patient placed on mechanical ventilation on 04/24, FiO2 now 80% with PEEP 12 Daily attempts to decrease FiO2 and PEEP to stabilize patient for tracheostomy exchange General surgery consulted for a trach exchange as patients trach was found to have a leak. Patient will need a trach exchange as soon as possible. GS planning for trach exchange tentative given patient continuing to need increased PEEP; will need continual reassessment Continue Solumedrol 60 mg IV q6h (2) HCAP (healthcare-associated pneumonia) Status: Acute Plan: Afebrile overnight Leukocytosis 15.6 on steroids Repeat ABG on 04/26 showed improvement with CO2 56 with pH 7.40 04/24 BCx no growth CXR 04/29 showing stable bibasilar consolidative infiltrates 04/30 CXR shows bilateral airspace disease greater in the right lower lobe 04/27 Sputum culture growing resistant pseudomonas Zosyn 4.5gm IV q6h (04/24 - dced 04/29), Vancomycin 2gm IV q12h, Levaquin 750mg IV q24h (04/24-04/30) - Infectious Disease consulted- started Zerbaxa 1.5g IV Q8H for pseudomonas coverage * Colistin nebs * Diflucan - Duonebs q2h - 05/01 BCx and UCx pending (3) CHF (congestive heart failure) Status: Chronic Plan: Last ECHO 09/18/2015 showing a grossly normal systolic function with no definitive EF as it was difficult to assess, ECHO on 05/2014 with EF of 40-45% with mildly dilated left atrium 04/25 ECHO was limited due to poor image quality, EF could not be adequately estimated. Systolic function appears to be grossly normal. BNP on admission 419, repeat BNP 151 -Lasix IV drip; monitor I&Os (4) Atrial fibrillation Status: Chronic Plan: Last EKG in sinus rhythm RRR on exam Home dose of Xarelto 20 mg po daily has been held in anticipation of possible surgery. Currently on Lovenox 150mg SQ Q12H. (5) Tracheostomy present Status: Chronic Plan: General surgery consulted for trach exchange given current trach with leak. Xarelto and Lovenox have been held in anticipation of surgery On heparin drip GS plans for tracheostomy exchange to a new one with a working cuff once ventilator settings are weaned down. * Continue to inflate cuff on PRN basis. * Working to obtain cuff repair kit from orthopedic technician as patient is not stable for transfer to the OR or for tracheostomy exchange at this time (6) HTN (hypertension) Status: Chronic Plan: BPs stable Hold home BP medications (7) Morbid obesity with BMI of 60.0-69.9, adult Status: Chronic Plan: Likely contributing to chronic respiratory issues (8) Hypothyroidism Status: Chronic Plan: Synthroid 25 mcg IV daily (9) Nutrition, metabolism, and development symptoms Status: Acute Plan: Fluids: none Electrolytes: Monitor and replete when necessary per protocol Nutrition: NG tube, tube feeds with Glucerna 30ml/hr DVT PPx: Holding Xarelto. Lovenox 150mg Q12H SQ dw Dr. Garcia, Dr. Canales and Rosie Abel, MS4 (Allegra Ko MD R2) Problem Qualifiers (1) CHF (congestive heart failure): Qualified Code: I50.9 - Acute on chronic congestive heart failure, unspecified congestive heart failure type (2) Atrial fibrillation: Qualified Code: I48.2 - Chronic atrial fibrillation (3) HTN (hypertension): Qualified Code: I10 - Essential hypertension (4) Hypothyroidism: Qualified Code: E03.9 - Hypothyroidism, unspecified type Allegra Ko MD R2 May 02, 2016 09:56 Bernice Garcia MD May 06, 2016 10:18
[2016-05-02] MEDS: RESP: ALBUTEROL 2.5 MG/IPRATROPIUM 0.5 MG NEB (SCH) NEB ×3 (10:06→22:45)
[2016-05-02] MEDS ORDERED: EPOPROSTENOL NEB SOLUTION 40 NG/KG/MIN 100 ML NEB SCH ×2 (12:00)
[2016-05-02] MEDS ORDERED: SUCCINYLCHOLINE CHLORIDE 200 MG/10 ML VIAL ONE (13:03)
[2016-05-02] MEDS ORDERED: ROCURONIUM INJ 50 MG/5 ML VIAL ONE (13:03)
[2016-05-02] MEDS ORDERED: Vancomycin Consult Pharmacy 1 EA OTHER SCH (15:00)
--- NOTE | 2016-05-02 15:00 | HHI.IDPN ---
Subjective Subjective Remarks Notes reviewed D/W RN Had problems with trach today and had emergent revision of his trach at bedside On 100% FiO2, PEEP 16 , sats currently 92% Febrile to 101 Sedated on the vent Has an area of redness on his R chest and R arm BP ok Sputum with MDR PSAE, S to Zerbaxa Antibiotics Zerbaxa Colistin nebs Lines PICC RUE Past Medical History Chronic Respiratory Failure s/p Tracheostomy 4 years ago Morbid Obesity w/ BMI 67.6 Atrial fibrillation Pulmonary embolism 4 years ago Anxiety CHF (Echo 06/07/2014 w/ EF 40-45%; ECHO 08/2015 showing a grossly normal systolic function) HTN Hypothyroidism Past Surgical History Tracheostomy Tonsillectomy Allergies: Coded Allergies: No Known Allergies (Unverified , 09/16/15) Objective . Vital Signs Date Time Temp Pulse Resp B/P Pulse Ox O2 Delivery O2 Flow Rate FiO2 05/02/16 13:02 86 100 05/02/16 10:00 91 05/02/16 08:25 91 80 05/02/16 08:00 100.1 83 22 122/63 91 05/02/16 08:00 80 05/02/16 08:00 83 05/02/16 06:00 72 05/02/16 04:00 71 05/02/16 04:00 92 80 05/02/16 04:00 99.6 61 22 118/61 94 05/02/16 04:00 80 05/02/16 02:00 67 05/02/16 01:00 93 80 05/02/16 00:00 80 05/02/16 00:00 63 05/02/16 00:00 99.7 66 22 123/63 94 05/01/16 22:08 94 80 05/01/16 22:00 68 05/01/16 20:24 95 80 05/01/16 20:00 67 05/01/16 20:00 99.9 67 22 126/65 94 05/01/16 20:00 80 05/01/16 18:00 71 05/01/16 16:00 99.7 81 22 135/69 92 05/01/16 16:00 90 05/01/16 16:00 81 05/01/16 15:09 93 90 05/01/16 05/01/16 05/02/16 15:00 23:00 07:00 Intake Total 1633 ml 1169 ml 1182 ml Output Total 1950 ml 2200 ml 1950 ml Balance -317 ml -1031 ml -768 ml IV Total 1389 ml 953 ml 967 ml Tube Feeding 244 ml 216 ml 215 ml Output Urine Total 1950 ml 2200 ml 1950 ml . Laboratory Tests Test 05/01/16 05/02/16 05:45 05:55 White Blood Count 16.1 TH/MM3 15.6 TH/MM3 Red Blood Count 4.66 MIL/MM3 4.64 MIL/MM3 Hemoglobin 10.7 GM/DL 10.7 GM/DL Hematocrit 34.5 % 34.3 % Mean Corpuscular Volume 74.0 FL 73.9 FL Mean Corpuscular Hemoglobin 23.0 PG 23.0 PG Mean Corpuscular Hemoglobin 31.2 % 31.1 % Concent Red Cell Distribution Width 19.5 % 19.6 % Platelet Count 219 TH/MM3 212 TH/MM3 Mean Platelet Volume 8.4 FL 8.1 FL Neutrophils (%) (Auto) 91.1 % 80.3 % Lymphocytes (%) (Auto) 3.2 % 9.1 % Monocytes (%) (Auto) 5.0 % 10.4 % Eosinophils (%) (Auto) 0.0 % 0.2 % Basophils (%) (Auto) 0.7 % 0.0 % Neutrophils # (Auto) 14.6 TH/MM3 12.5 TH/MM3 Lymphocytes # (Auto) 0.5 TH/MM3 1.4 TH/MM3 Monocytes # (Auto) 0.8 TH/MM3 1.6 TH/MM3 Eosinophils # (Auto) 0.0 TH/MM3 0.0 TH/MM3 Basophils # (Auto) 0.1 TH/MM3 0.0 TH/MM3 CBC Comment AUTO DIFF AUTO DIFF Differential Comment AUTO DIFF AUTO DIFF CONFIRMED CONFIRMED Basophilic Stippling FAINT Tear Drop Cells 1+ Laboratory Tests Test 04/30/16 04/30/16 05/01/16 05/01/16 20:20 23:40 05:45 13:50 Sodium Level 138 MEQ/L 139 MEQ/L 138 MEQ/L 139 MEQ/L Potassium Level 3.3 MEQ/L 3.5 MEQ/L 3.3 MEQ/L 3.5 MEQ/L Chloride Level 96 MEQ/L 97 MEQ/L 97 MEQ/L 97 MEQ/L Carbon Dioxide Level 36.1 MEQ/L 35.5 MEQ/L 34.3 MEQ/L 33.3 MEQ/L Anion Gap 6 MEQ/L 7 MEQ/L 7 MEQ/L 9 MEQ/L Blood Urea Nitrogen 23 MG/DL 23 MG/DL 23 MG/DL 27 MG/DL Creatinine 0.86 MG/DL 0.91 MG/DL 0.90 MG/DL 0.90 MG/DL Estimat Glomerular Filtration 103 ML/MIN 97 ML/MIN 98 ML/MIN 98 ML/MIN Rate Random Glucose 136 MG/DL 148 MG/DL 146 MG/DL 234 MG/DL Calcium Level 8.5 MG/DL 8.6 MG/DL 8.6 MG/DL 8.9 MG/DL Total Bilirubin 1.0 MG/DL Aspartate Amino Transf 31 U/L (AST/SGOT) Alanine Aminotransferase 27 U/L (ALT/SGPT) Alkaline Phosphatase 50 U/L Total Protein 6.8 GM/DL Albumin 2.4 GM/DL Test 05/01/16 05/02/16 18:27 05:55 Sodium Level 138 MEQ/L 141 MEQ/L Potassium Level 3.3 MEQ/L 2.8 MEQ/L Chloride Level 98 MEQ/L 100 MEQ/L Carbon Dioxide Level 34.2 MEQ/L 34.1 MEQ/L Anion Gap 6 MEQ/L 7 MEQ/L Blood Urea Nitrogen 27 MG/DL 26 MG/DL Creatinine 0.96 MG/DL 0.84 MG/DL Estimat Glomerular Filtration 91 ML/MIN 106 ML/MIN Rate Random Glucose 134 MG/DL 99 MG/DL Calcium Level 8.3 MG/DL 8.6 MG/DL Phosphorus Level 3.2 MG/DL 2.3 MG/DL Magnesium Level 2.6 MG/DL 2.3 MG/DL Microbiology Date/Time Procedure Status Source Growth 05/01/16 11:55 Aerobic Blood Culture - Preliminary Resulted Blood Peripheral NO GROWTH IN 1 DAY 05/01/16 11:55 Anaerobic Blood Culture - Preliminary Resulted Blood Peripheral NO GROWTH IN 1 DAY 05/01/16 12:00 Aerobic Blood Culture - Preliminary Resulted Blood Peripheral NO GROWTH IN 1 DAY 05/01/16 12:00 Anaerobic Blood Culture - Preliminary Resulted Blood Peripheral NO GROWTH IN 1 DAY 05/01/16 18:40 Urine Culture - Preliminary Resulted Urine Clean Catch Dionne Albicans Imaging Chest X-Ray 05/01/16 0600 Signed Impressions: Service Date/Time: Sunday, May 01, 2016 02:11 - CONCLUSION: Overall image quality is limited due to patient body habitus. Again suspected the bilateral lower lung infiltrates. Jeremiah Tuttle MD Chest X-Ray 04/30/16 0000 Signed Impressions: Service Date/Time: Saturday, April 30, 2016 07:43 - CONCLUSION: 1. Bilateral airspace disease greater in the right lower lobe. 2. Right-sided PICC line with tip not well-seen but appears to be in the right atrium. Vishnu Woodward MD Chest X-Ray 04/30/16 0000 Signed Impressions: Service Date/Time: Saturday, April 30, 2016 07:43 - CONCLUSION: 1. Bilateral airspace disease greater in the right lower lobe. 2. Right-sided PICC line with tip not well-seen but appears to be in the right atrium. Vishnu Woodward MD Abdomen X-Ray 04/29/16 0000 Signed Impressions: Service Date/Time: Friday, April 29, 2016 07:12 - CONCLUSION: Suspect Dobbhoff tube in the distal stomach. Garcia Lujan MD Physical Exam GENERAL: This is a morbidly obese male, sedated, on the vent, not in distress. SKIN: Warm and moist. Generalized rash. No cyanosis noted. HEAD: Atraumatic. Normocephalic. No temporal or scalp tenderness. EYES: Peak conjunctivae. Pupils equal round and reactive. No scleral icterus. Has mild conjunctival injection bilaterally. ENT: Nose without purulent drainage. Moist mucosa. Has a lot of oral secretions. NECK: Short and obese, has new trach, site ok. Supple, no meningeal signs. CARDIOVASCULAR: Regular rate and rhythm without murmurs, gallops, or rubs. Distant heart sounds. There is an area of erythema with heat on his R shoulder and goes to his R breast, as well as redness in his R upper arm above his PICC RESPIRATORY: Decreased BS bilaterally. GASTROINTESTINAL: Abdomen soft, morbidly obese, no reaction to palpation, not distended. Bowel sounds presentr and hypoactive. MUSCULOSKELETAL: Extremities without clubbing, cyanosis. Has mild pitting edema. NEUROLOGICAL: Sedated PSYCH: Unable to assess LINE: PICC in RUE, site ok, but has that area of redness going up the arm, no palpable cord : Willard in place, urine looks clear Assessment & Plan Remarks IMPRESSION Chronic respiratory failure, has trach, has HCAP - C/S with MDR PSAE MDR PSAE PNA Fevers higher, ?new infection Leukocytosis, due to PNA, and partly due to steroids Has an area of cellulitis in his RUEm and R chest, ?from PICC Morbid obesity Hx PE Candiduria, UA only with 18 WBC, likely colonization RECOMMENDATION Continue Zerbaxa Continue colistin nebs Doppler US RUE to eval PICC Add Vanco and Diflucan for empiric coverage for possible phlebitis/cellulitis related to PICC Repeat 2 BC today Monitor progress Follow CBC Too unstable to have new PICC placement - cant lie flat, requiring a lot of vent support Hold off on willard change D/W Dr Morgan ([facility]) D/W RN Dr Patiño covering me tomorrow Dr Land covering this weekend Dana Tam MD May 02, 2016 15:00
[2016-05-02] MEDS ORDERED: METOLAZONE 5 MG TAB PO ONE (15:45)
[2016-05-02] MEDS ORDERED: VANCOMYCIN INJ 1,750 MG in SODIUM CHLORID 0.9% 500 ML INJ 500 ML IV ONE (16:00)
--- NOTE | 2016-05-02 16:28 | HHI.CCPN ---
Subjective Remarks/Hospital Course 04/24: Wilfrido Fortune is a 31 year old male with past medical history of chronic respiratory failure s/p tracheostomy 4 years ago, super morbid obesity (BMI 68) , atrial fibrillation and pulmonary embolism on Xarelto, COPD, CHF and h/o HTN. Patient presented from [facility] with low oxygen saturation apparently his oxygen saturation was 82% on RA. He was placed back on 6L of oxygen via his trach mask and given a breathing treatment, initially improved however he started drifting back to low 80s again. Apparently patient had been getting treatment for pneumonia at the rehabilitation facility. In the ER chest x-ray showed bibasilar infiltrates and pulmonary edema. Patient was admitted to the [facility] service and was started on IV steroids IV vancomycin and Zosyn and Levaquin for healthcare associated pneumonia. ABG after admission was pH of 7.42 PCO2 of 61 and PO2 55. Repeat ABG at 5 PM showed pH of 7.26 PCO2 of 85 and PO2 of 70 and patient was started on BiPAP by the [facility]. ABG at 10:15 showed worsening CO2 retention with pH 7.16 PCO2 108 and PO2 of 98. At that time critical care medicine was consulted After receiving the consult, Dr. Zelaya immediately ordered placement on for full mechanical ventilatory support and starting sedation for ventilator synchrony. Dr. Zelaya evaluated the patient in ICU. After starting ACV, patient was more awake but there was a significant amount of air leak around his tracheostomy. Patient has a Shiley 6.0 Proximal XLT, but the ferryboat pilot balloon had been cut off. Vent settings changed from ACV to pressure control with inspiratory pressure of 25, which improved the tidal volume he was receiving. General surgery consulted for trach exchange in a.m. Solu-Medrol increased to 60 mg IV every 6 hours after 125 mg bolus. Additional 2 mg IV Bumex had been ordered. Scheduled and when necessary breathing treatment ordered. 04/25: Patient remains on mechanical ventilation via tracheostomy. Discussed with Dr. Dannie arrieta from general surgery. He inflated air in the cuff using a Seldinger needle and then applied a hemostat with which cuff appeared to stay inflated and patient started volume improved. He plans to change out tracheostomy once patient is a little more stable in the next 24-48 hours in the OR. 04/26: Afebrile. Tracheostomy cuff remains inflated, with hemostat secured. Tidal volumes greater than 400 cc. Patient continues on fentanyl and propofol infusions, with a RASS score of 0. Patient complains of discomfort in bed, requesting larger more comfortable bed. FiO2 decreased to 80% this a.m., with close monitoring to be trended with O2 sat of 94% discussion with Dr. Arrieta this a.m.. The patient is still too unstable secondary to respiratory insufficiency to go to the OR today, will begin therapeutic anticoagulation today secondary to history of PE and other risk factors. 04/27: Afebrile. Tmax 97.6. Overnight the patient required increasing O2 concentrations. Patient's trach cuff required reinflation 2 overnight, maintaining volumes 400-500 cc per breath. The patient's FiO2 currently is 1.0 , O2 sat 94-96%. The patient received PICC line yesterday secondary to difficult IV access and nutrition requirements, will begin PPN tonight. The patient remains optimally sedated for ventilator's synchrony, and minimization of agitation. Currently requirements include propofol Versed and fentanyl infusions. 04/28: Tmax 98.7. The patient still requires and increasing O2 concentrations, Flolan initiated last night FiO2 was significantly decreased to 60% ,however this a.m. patient's O2 sat remained mid 80s with a requirement of increasing PEEP to 11 and FiO2 return to 100% currently aggressively utilizing recruitment maneuvers to decrease O2 and PEEP requirements for transfer to the OR tomorrow for exchange of tracheostomy apparatus. The patient continues to be sedated for patient safety and ventilator synchrony. 04/29:Tmax 100.0. Overnight the patient was diuresed approximately 5 L. The patient continues on a Lasix infusion. The FiO2 was significantly decrease post diuresis to 0.65, the patient continues on a PEEP of 12 with O2 saturations 93-94%. Successful placement of Dobbhoff tube, early this a.m. we' ll begin tube feeds this a.m. and discontinue PPN. General Surgery contacted this a.m. regarding tracheostomy exchange for scheduled time. Patient's Lovenox is held for OR, will place on heparin infusion, procedures time is scheduled for later today. The patient continues to be on sedation for safety to prevent dislodgment out tracheostomy tube. Radiological imaging studies reveal a loop and PICC line, will reconsult PICC team. 04/30: Afebrile. It is felt at this time by General Surgery, that the airway is secure as evidenced by lung volumes have been maintained for the last 3 days., Will attempt to repair ferryboat pilot balloon, if unsuccessful in attempts at repairing ferryboat pilot balloon, general surgery would consider exchanging the Shiley 60 XLT trach on an elective basis,when the patient was no longer critically ill. It is felt at this time, if tracheostomy was exchanged at this point in time the risks outweigh the benefit, and could result and possible . Attempts were made to decrease the PEEP to 8 , this afternoon and within an half an hour, the patient went into jacques pulmonary edema, copious pink frothy some sputum was noted to be emanating from the tracheostomy tube. O2 sat saturations dropped into the 60s,acutely. The patient was bolused with 80 mg of Lasix and 500 mg of Diamox and the PEEP was increased to 12. The patient's oxygenation improved with manual Ambu bag being and the PEEP of 12. The PICC line was power flushed early this morning repeat x-ray revealed the loop and line resolved, no resistance noted. 05/01: Tmax 101.0. The patient remains sedated fentanyl and propofol infusion. Pulmonary edema resolved, last evening. The patient continues on Lasix infusion , for continued diuresis. The patient has been able to maintain a O2 saturation of 94%, with FiO2 of 0.80 and PEEP of 12. Specialty bed ordered, due to patient's immobility and body habitus, plans to transfer patient to specialty bed with close control and monitoring of tracheostomy. 05/02: Tmax 100.3. The patient was transferred to a specialty bed yesterday . Today, the patient became acutely hypoxemic with a large cuff leak, unable to transition with previous methods of inflating balloon. O2 sat 80s with PEEP of 14, FIO2 100% Dr. Corbett, Dr. Arrieta present. Anesthesia notified for back up, Dr. Magdaleno Walton Anesthesiologist, and myself at bedside. Glidescope intubation performed, Mallampati grade 2 noted upon visualization. O2 sat 90%, 6.[address] Corbett. Bilateral breath sounds equal, distant. Copious pink frothy fluid emanating from trach consistent with continuous pulmonary edema. Lung recruitment approximately 4 hours from O2 sat 87% to obtain O2 sat of 92. Today patient noted to have diuretic resistance, additional diuretics provided. Family updated on above events. Objective Vital Signs Date Time Temp Pulse Resp B/P Pulse Ox O2 Delivery O2 Flow Rate FiO2 05/02/16 15:30 90 100 05/02/16 14:00 90 05/02/16 12:00 100.2 22 104/52 Intake and Output 05/01/16 05/01/16 05/02/16 08:00 16:00 00:00 Intake Total 1414 ml 1633 ml 1169 ml Output Total 1550 ml 1950 ml 2200 ml Balance -136 ml -317 ml -1031 ml Result Diagram: 05/02/16 0555 05/02/16 0555 Imaging Last 24 hours Impressions Chest X-Ray 05/01/16599 Signed Impressions: Service Date/Time: Sunday, May 01, 2016 02:11 - CONCLUSION: Overall image quality is limited due to patient body habitus. Again suspected the bilateral lower lung infiltrates. Jeremiah Tuttle MD Last 24 hours Impressions Chest X-Ray 04/29/16 06 Signed Impressions: Service Date/Time: Friday, April 29, 2016 03:30 - CONCLUSION: 1. Stable bibasilar consolidative infiltrates. 2. Some coiling of the PICC line since prior exam with the tip of the PIC line now at the level of the origin of the superior vena cava. Jeremiah Tuttle MD Abdomen X-Ray 04/29/16 0000 Signed Impressions: Service Date/Time: Friday, April 29, 2016 07:12 - CONCLUSION: Suspect Dobbhoff tube in the distal stomach. Garcia Lujan MD Last 24 hours Impressions Chest X-Ray 04/27/16 06 Signed Impressions: Service Date/Time: Wednesday, April 27, 2016 03:51 - CONCLUSION: 1. Tracheostomy tube in place. No pneumothorax. 2. Pulmonary venous congestion with some bibasilar infiltrates. Lázaro Frankel MD Objective Remarks GENERAL: Lying in bed, on mech vent via trach in situ, sedated circumoral cyanosis was noted. Resolved with improvement of O2 sat to 92% SKIN: Warm and dry. HEAD: Normocephalic. Atraumatic. EYES: PERRL. No scleral icterus. No injection or drainage. ENT: No nasal drainage. Oral and nasal mucosa moist NECK: Shiley 6.0 Proximal XLT, the ferryboat pilot balloon off, inflated and secured with hemostat. No leak noted CARDIOVASCULAR: Regular rate and rhythm without murmurs, gallops, or rubs. Distant heart sounds RESPIRATORY: On mechanical ventilation via tracheostomy. O2 sat initially 87, large tracheostomy in the approximately 35%. Air entry decreased bilaterally at bases. No wheezing, diminished throughout bilaterally. O2 sat improved 92% GASTROINTESTINAL: Abdomen soft, non-tender, obese, normal BS. Tube feeds infusing. NEURO: Optimal sedation with a RASS -2 on mechanical ventilation, on fentanyl, Versed and propofol infusion, to maintain ventilator synchrony. Procedures Shiley 6.0 XLT tracheostomy exchange under visual direction by general surgery and with glidescope, by anesthesiologist. Urinary Catheter: Yes Assessment to: Continue Milan insert reason: ICU Pt Getting Diuretics Date of Insertion: Apr 24, 2016 Date of Insertion: Apr 26, 2016 Line: PICC Side: Right A/P Assessment and Plan ASSESSMENT Acute hypercapnic and hypoxemic respiratory failure Healthcare associated pneumonia Sepsis CHF exacerbation CO2 narcosis Tracheostomy ferryboat pilot balloon damage Chronic Respiratory Failure s/p Tracheostomy 4 years ago (Shiley 6.0 Proximal XLT) COPD/obesity hypoventilation syndrome Morbid Obesity BMI 67 History of pulmonary embolism 4 years ago Chronic atrial fibrillation Anxiety CHF (Echo 2013 EF 40-45%; ECHO 08/2015 showing a grossly normal systolic function) Hypertension Hypothyroidism PLAN NEURO: CO2 narcosis Anxiety -Maintain optimal sedation, with RASS -2, in order to maintain tracheostomy position/placement -For ventilator synchrony continue Propofol , Versed and Fentanyl. - Sedation vacation every shift -SS neuro status every hour RESP: Acute hypercapnic and hypoxemic respiratory failure Healthcare associated pneumonia Tracheostomy ferryboat pilot balloon damage (Shiley 6.0 Proximal XLT) Chronic Respiratory Failure s/p Tracheostomy 4 years ago COPD/obesity hypoventilation syndrome History of pulmonary embolism 4 years ago Leukocytosis Pulmonary edema -Continue mechanical ventilation PC/AC rate 18, Insp pres 25, PEEP initially 16 , titrated down to 12 Fio2 .80, Titrate to keep SaO2 >90%. Currently O2 sat 91% -Flolan initiated 04/27 at maximum doses 50 ng -Healthcare associated pneumonia (MDRO) is being treated with IV Vancomycin, Zerbaxa and Levaquin, ID consulted follow-up recommendations -Sputum culture revealed Pseudomonas Colistin added per ID -DuoNeb every 4 hours scheduled - Pulmicort BID (home med) -Continue IV Solu-Medrol to 60 mg every 6 hour - Therapeutic Lovenox 150 mg every 12 hours -Chest x-ray bibasilar infiltrates unchanged -Resistant pulmonary edema with diuretic resistance, metolazone 10 mg IV push now, will scheduled daily CV: CHF exacerbation Pulmonary edema Chronic atrial fibrillation -Lasix infusion increased to 15 mg/hour will monitor potassium every 6 hours -Metolazone 10 mg IV push now -Metolazone 5 mg daily - A. fib rate controlled - Therapeutic Lovenox 150 mg twice a day GI: Super morbid obesity with BMI of 68 -Tubefeeds Glucerna 30/hr -IV Protonix IV -SSI per ICU protocol : -BMP every 6 hours monitor potassium, phosphorus and magnesium closely -Scheduled doses potassium 80 mg , 4 times a day -Monitor renal function closely. -Diuretic resistance .Lasix infusion 15 mg/hr, Metolazone added - Milan catheter -keep in situ do not exchange, patient too unstable at this time -Urine culture revealed Dionne-, Fluconazole (Day 1) - Strict I&O ID: Healthcare associated pneumonia Sepsis MDRO Possible cellulitis right arm and fast Leukocytosis -Continue IV vancomycin, Zebaxa (Day 3)and Levaquin,Fluconazole (Day 1) - Blood urine and blood culture NGTD -Wound culture Pseudomonas -Sputum tefbnxx-[id number] inhalation -ID consulted, follow-up recommendations HEME: History of PE on chronic anticoagulation with Xarelto Leukocytosis -Monitor CBC, CMP, coags -Xarelto for PE 4 yrs ago. -Hold Xarelto. -Change to Lovenox 150 mg twice a day ENDO: Hypothyroidism -Electrolyte replacement protocol -Continue levothyroxine 25 mcgs IV daily PROPH: -Bilateral lower extremity SCDs. Lovenox DVT prophylaxis. IV Protonix for GI prophylaxis LINES: - PICC line (day 7) RUE This patient remains critically ill with one or more organ systems which are or may become a threat to life. I have spent in excess of 61 minutes discontinuously in the care and management of this patient. This time is exclusive of procedures, and includes, but is not limited to, evaluation of the patient, review of the medical record, discussions with family, consultants, nursing staff, or respiratory therapy, and documentation in the medical record. Discussed with RN at bedside. The patient mother was notified of all above events, and guarded prognosis. Physician Juana Cisneros MD May 02, 2016 16:28
[2016-05-02] MEDS: VANCOMYCIN INJ 2,000 MG in SODIUM CHLORID 0.9% 500 ML INJ 500 ML IV SCH (16:52)
[2016-05-02] MEDS: FLUCONAZOLE 400 MG PREMIX BAG 200 ML IV SCH (16:52)
[2016-05-02] MEDS: PANTOPRAZOLE SODIUM 40 MG VIAL IV PUSH SCH (16:52)
[2016-05-02] MEDS: SODIUM CHLORIDE 0.9% FLUSH 5 ML FLUSH FLUSH PRN (16:52)
[2016-05-02] MEDS: ACETAMINOPHEN 325 MG TAB PO PRN ×2 (16:54→22:23)
[2016-05-02] MEDS: POTASSIUM CL 40 MEQ/30 ML LIQ UDC PO/TUBE PRN (17:54)
--- NOTE | 2016-05-02 22:07 | RADRPT ---
EXAM DATE/TIME: 05/02/2016 20:51 [facility] COMPARISON: No previous studies available for comparison. INDICATIONS : Right arm redness. MEDICAL HISTORY : Hypercholesterolemia. Hypertension. Congestive heart failure. Anticoagulant therapy. Atrial fibrilla tion. Dyspnea. Pulmonary embolism. SURGICAL HISTORY : Tonsillectomy. Vocal cord surgery. Tracheostomy. ENCOUNTER: Initial ACUITY: 1 day PAIN SCORE: Non-responsive LOCATION: Right arm. FINDINGS: There is spontaneous flow documented in the brachial, basilic, cephalic, axillary, and subclavian vei ns. The vessels are compressible and augmentation response is documented. No filling defects are se en. The flow is phasic with respiration. Direction of flow in the jugular vein is caudal. CONCLUSION: No DVT. Garcia Lujan MD on May 02, 2016 at 22:04 Board Certified Radiologist. This report was verified electronically.
[2016-05-02] MEDS: FUROSEMIDE IV SCH (22:31)
[2016-05-02] MEDS: SODIUM CHLORIDE 0.9% IV SCH (22:31)
[2016-05-02 23:46] LABS: BICARBONATE 39.4 MEQ/L (21.0-32.0); POTASSIUM 3.3 MEQ/L (3.5-5.1)
[2016-05-03] VITALS (18 sets, daily range): BP systolic 116–136; BP diastolic 64–71; PULSE 76–91; RESP 18–22; TEMP 98.7–102.8; O2SAT 92–94
[2016-05-03] MEDS: fentaNYL DRIP 250 ML IV SCH ×2 (01:39→07:33)
[2016-05-03] MEDS: PROPOFOL 1000 MG/100 ML INJ 100 ML IV SCH ×9 (01:39→19:36)
[2016-05-03] MEDS: SODIUM CHLORIDE 0.9% IV SCH ×3 (03:51→19:35)
[2016-05-03] MEDS: FUROSEMIDE IV SCH ×3 (03:51→19:35)
[2016-05-03] MEDS: PANTOPRAZOLE SODIUM 40 MG VIAL IV PUSH SCH ×2 (03:52→14:18)
[2016-05-03] MEDS: CEFTOLOZANE-TAZOBACTAM INJ 1,500 MG in SODIUM CHLORIDE 0.9% INJ 100 ML IV SCH ×3 (03:52→20:58)
[2016-05-03] MEDS: ENOXAPARIN SODIUM 150 MG/ML SYRINGE SQ SCH ×2 (03:53→16:59)
[2016-05-03] MEDS: RESP: ALBUTEROL 2.5 MG/IPRATROPIUM 0.5 MG NEB (SCH) NEB ×4 (04:00→19:51)
[2016-05-03] MEDS: ACETAMINOPHEN 325 MG TAB PO PRN ×2 (04:15→08:13)
[2016-05-03 04:26] LABS: AUTOMATED NEUTROPHIL # 13.9 TH/MM3 (1.8-7.7); BASOPHIL % 0.1 % (0.0-2.0); LYMPH % 2.9 % (9.0-44.0); LYMPHOCYTE # 0.4 TH/MM3 (1.0-4.8); MEAN CELL VOLUME 73.8 FL (80.0-100.0); MEAN CORPUSCULAR HEMOGLOBIN 22.9 PG (27.0-34.0); MEAN CORPUSCULAR HGB CONC 31.1 % (32.0-36.0); PLATELET COUNT 200 TH/MM3 (150-450); RED BLOOD COUNT 5.02 MIL/MM3 (4.50-5.90); RED CELL DISTRIBUTION WIDTH 19.1 % (11.6-17.2); WHITE BLOOD COUNT 14.9 TH/MM3 (4.0-11.0)
[2016-05-03 05:01] LABS: BICARBONATE 39.3 MEQ/L (21.0-32.0); MAGNESIUM 2.6 MG/DL (1.5-2.5); POTASSIUM 3.2 MEQ/L (3.5-5.1)
[2016-05-03 05:07] LABS: HEMO FLAGS AUTO DIFF
[2016-05-03] MEDS: methylPREDNISolone SOD SUCC 40 MG/1 ML VIAL IV PUSH SCH ×5 (05:57→23:51)
[2016-05-03] MEDS: VANCOMYCIN INJ 2,000 MG in SODIUM CHLORID 0.9% 500 ML INJ 500 ML IV SCH ×2 (05:57→16:59)
[2016-05-03] MEDS: LEVOTHYROXINE SODIUM 100 MCG VIAL IV PUSH SCH (05:57)
[2016-05-03] MEDS: POTASSIUM CHLORIDE 20 MEQ PWD PACKET NG SCH ×4 (06:19→23:00)
[2016-05-03] MEDS: METOLAZONE 5 MG TAB NG SCH ×2 (06:19→07:34)
--- NOTE | 2016-05-03 06:41 | HHI.CCPN ---
Subjective Remarks/Hospital Course 04/24: Wilfrido Fortune is a 31 year old male with past medical history of chronic respiratory failure s/p tracheostomy 4 years ago, super morbid obesity (BMI 68) , atrial fibrillation and pulmonary embolism on Xarelto, COPD, CHF and h/o HTN. Patient presented from [facility] with low oxygen saturation apparently his oxygen saturation was 82% on RA. He was placed back on 6L of oxygen via his trach mask and given a breathing treatment, initially improved however he started drifting back to low 80s again. Apparently patient had been getting treatment for pneumonia at the rehabilitation facility. In the ER chest x-ray showed bibasilar infiltrates and pulmonary edema. Patient was admitted to the [facility] service and was started on IV steroids IV vancomycin and Zosyn and Levaquin for healthcare associated pneumonia. ABG after admission was pH of 7.42 PCO2 of 61 and PO2 55. Repeat ABG at 5 PM showed pH of 7.26 PCO2 of 85 and PO2 of 70 and patient was started on BiPAP by the [facility]. ABG at 10:15 showed worsening CO2 retention with pH 7.16 PCO2 108 and PO2 of 98. At that time critical care medicine was consulted After receiving the consult, Dr. Zelaya immediately ordered placement on for full mechanical ventilatory support and starting sedation for ventilator synchrony. Dr. Zelaya evaluated the patient in ICU. After starting ACV, patient was more awake but there was a significant amount of air leak around his tracheostomy. Patient has a Shiley 6.0 Proximal XLT, but the rotor pilot balloon had been cut off. Vent settings changed from ACV to pressure control with inspiratory pressure of 25, which improved the tidal volume he was receiving. General surgery consulted for trach exchange in a.m. Solu-Medrol increased to 60 mg IV every 6 hours after 125 mg bolus. Additional 2 mg IV Bumex had been ordered. Scheduled and when necessary breathing treatment ordered. 04/25: Patient remains on mechanical ventilation via tracheostomy. Discussed with Dr. Dannie arrieta from general surgery. He inflated air in the cuff using a Seldinger needle and then applied a hemostat with which cuff appeared to stay inflated and patient started volume improved. He plans to change out tracheostomy once patient is a little more stable in the next 24-48 hours in the OR. 04/26: Afebrile. Tracheostomy cuff remains inflated, with hemostat secured. Tidal volumes greater than 400 cc. Patient continues on fentanyl and propofol infusions, with a RASS score of 0. Patient complains of discomfort in bed, requesting larger more comfortable bed. FiO2 decreased to 80% this a.m., with close monitoring to be trended with O2 sat of 94% discussion with Dr. Arrieta this a.m.. The patient is still too unstable secondary to respiratory insufficiency to go to the OR today, will begin therapeutic anticoagulation today secondary to history of PE and other risk factors. 04/27: Afebrile. Tmax 97.6. Overnight the patient required increasing O2 concentrations. Patient's trach cuff required reinflation 2 overnight, maintaining volumes 400-500 cc per breath. The patient's FiO2 currently is 1.0 , O2 sat 94-96%. The patient received PICC line yesterday secondary to difficult IV access and nutrition requirements, will begin PPN tonight. The patient remains optimally sedated for ventilator's synchrony, and minimization of agitation. Currently requirements include propofol Versed and fentanyl infusions. 04/28: Tmax 98.7. The patient still requires and increasing O2 concentrations, Flolan initiated last night FiO2 was significantly decreased to 60% ,however this a.m. patient's O2 sat remained mid 80s with a requirement of increasing PEEP to 11 and FiO2 return to 100% currently aggressively utilizing recruitment maneuvers to decrease O2 and PEEP requirements for transfer to the OR tomorrow for exchange of tracheostomy apparatus. The patient continues to be sedated for patient safety and ventilator synchrony. 04/29:Tmax 100.0. Overnight the patient was diuresed approximately 5 L. The patient continues on a Lasix infusion. The FiO2 was significantly decrease post diuresis to 0.65, the patient continues on a PEEP of 12 with O2 saturations 93-94%. Successful placement of Dobbhoff tube, early this a.m. we' ll begin tube feeds this a.m. and discontinue PPN. General Surgery contacted this a.m. regarding tracheostomy exchange for scheduled time. Patient's Lovenox is held for OR, will place on heparin infusion, procedures time is scheduled for later today. The patient continues to be on sedation for safety to prevent dislodgment out tracheostomy tube. Radiological imaging studies reveal a loop and PICC line, will reconsult PICC team. 04/30: Afebrile. It is felt at this time by General Surgery, that the airway is secure as evidenced by lung volumes have been maintained for the last 3 days., Will attempt to repair rotor pilot balloon, if unsuccessful in attempts at repairing rotor pilot balloon, general surgery would consider exchanging the Shiley 60 XLT trach on an elective basis,when the patient was no longer critically ill. It is felt at this time, if tracheostomy was exchanged at this point in time the risks outweigh the benefit, and could result and possible . Attempts were made to decrease the PEEP to 8 , this afternoon and within an half an hour, the patient went into jacques pulmonary edema, copious pink frothy some sputum was noted to be emanating from the tracheostomy tube. O2 sat saturations dropped into the 60s,acutely. The patient was bolused with 80 mg of Lasix and 500 mg of Diamox and the PEEP was increased to 12. The patient's oxygenation improved with manual Ambu bag being and the PEEP of 12. The PICC line was power flushed early this morning repeat x-ray revealed the loop and line resolved, no resistance noted. 05/01: Tmax 101.0. The patient remains sedated fentanyl and propofol infusion. Pulmonary edema resolved, last evening. The patient continues on Lasix infusion , for continued diuresis. The patient has been able to maintain a O2 saturation of 94%, with FiO2 of 0.80 and PEEP of 12. Specialty bed ordered, due to patient's immobility and body habitus, plans to transfer patient to specialty bed with close control and monitoring of tracheostomy. 05/02: Tmax 100.3. The patient was transferred to a specialty bed yesterday . Today, the patient became acutely hypoxemic with a large cuff leak, unable to transition with previous methods of inflating balloon. O2 sat 80s with PEEP of 14, FIO2 100% Dr. Macias, Dr. Arrieta present. Anesthesia notified for back up, Dr. Magdaleno Walton Anesthesiologist, and myself at bedside. Glidescope intubation performed, Mallampati grade 2 noted upon visualization. O2 sat 90%, 6.[address] Sh[address] exchange by Dr[address] Corbett. Bilateral breath sounds equal, distant. Copious pink frothy fluid emanating from trach consistent with continuous pulmonary edema. Lung recruitment approximately 4 hours from O2 sat 87% to obtain O2 sat of 92. Today patient noted to have diuretic resistance, additional diuretics provided. Family updated on above events. 05/03: Tmax 101.5. FiO2 remains at 90%. Urine output excellent more than 8 L on Lasix infusion. Patient is status post emergency trach exchange at bedside by Dr. Macias, due to acute hypoxemia and large cuff leak (notes from yesterday reviewed). Condition remains critical Objective Vital Signs Date Time Temp Pulse Resp B/P Pulse Ox O2 Delivery O2 Flow Rate FiO2 05/03/16 04:04 94 90 05/03/16 04:00 79 05/03/16 04:00 101.2 22 127/68 Intake and Output 05/02/16 05/02/16 05/03/16 08:00 16:00 00:00 Intake Total 1182 ml 1477 ml 1544 ml Output Total 1950 ml 1350 ml 5150 ml Balance -768 ml 127 ml -3606 ml Result Diagram: 05/03/1639905/03/16 0400 Imaging Last 24 hours Impressions Chest X-Ray 05/01/16599 Signed Impressions: Service Date/Time: Sunday, May 01, 2016 02:11 - CONCLUSION: Overall image quality is limited due to patient body habitus. Again suspected the bilateral lower lung infiltrates. Jeremiah Tuttle MD Last 24 hours Impressions Chest X-Ray 04/29/16 06 Signed Impressions: Service Date/Time: Friday, April 29, 2016 03:30 - CONCLUSION: 1. Stable bibasilar consolidative infiltrates. 2. Some coiling of the PICC line since prior exam with the tip of the PIC line now at the level of the origin of the superior vena cava. Jeremiah Tuttle MD Abdomen X-Ray 04/29/16 0000 Signed Impressions: Service Date/Time: Friday, April 29, 2016 07:12 - CONCLUSION: Suspect Dobbhoff tube in the distal stomach. Garcia Lujan MD Last 24 hours Impressions Chest X-Ray 04/27/16 06 Signed Impressions: Service Date/Time: Wednesday, April 27, 2016 03:51 - CONCLUSION: 1. Tracheostomy tube in place. No pneumothorax. 2. Pulmonary venous congestion with some bibasilar infiltrates. Lázaro Frankel MD Objective Remarks GENERAL: Lying in bed, on mech vent via trach in situ, sedated due to severe hypoxia SKIN: Warm and dry. HEAD: Normocephalic. Atraumatic. EYES: PERRL. No scleral icterus. No injection or drainage. ENT: No nasal drainage. Oral and nasal mucosa moist NECK: Shiley 6.0 Proximal XLT, (new trach placed 05/02/16) CARDIOVASCULAR: Regular rate and rhythm without murmurs, gallops, or rubs. Distant heart sounds RESPIRATORY: On mechanical ventilation via tracheostomy. Air entry decreased bilaterally at bases. No wheezing, diminished throughout bilaterally. O2 sat improved 90% GASTROINTESTINAL: Abdomen soft, non-tender, obese, normal BS. Tube feeds infusing. NEURO: Optimal sedation with a RASS -2 on mechanical ventilation, on fentanyl, Versed and propofol infusion, to maintain ventilator synchrony. Procedures Shiley 6.0 XLT tracheostomy exchange under visual direction by general surgery and with GlideScope, by anesthesiologist. Urinary Catheter: Yes Assessment to: Continue Date of Insertion: Apr 24, 2016 Vascular Central Line Catheter: Yes Assessment to: Continue Date of Insertion: Apr 26, 2016 Line: PICC Side: Right A/P Assessment and Plan ASSESSMENT Acute hypercapnic and hypoxemic respiratory failure Healthcare associated pneumonia Sepsis/persistent fever CHF exacerbation CO2 narcosis Tracheostomy rotor pilot balloon damage -status post exchange with new Shiley 6.0 Proximal XLT 05/02/16) Chronic Respiratory Failure s/p Tracheostomy 4 years ago (Shiley 6.0 Proximal XLT) COPD/obesity hypoventilation syndrome Morbid Obesity BMI 67 History of pulmonary embolism 4 years ago Chronic atrial fibrillation Anxiety CHF (Echo 2013 EF 40-45%; ECHO 08/2015 showing a grossly normal systolic function) Hypertension Hypothyroidism PLAN NEURO: CO2 narcosis Anxiety -Maintain optimal sedation, with RASS -2, due to severe hypoxemic respiratory failure for absolute ventilator synchrony. -Continue Propofol , Versed and Fentanyl. -Sedation vacation every shift, if tolerated without hypoxia RESP: Acute hypercapnic and hypoxemic respiratory failure Healthcare associated pneumonia Tracheostomy rotor pilot balloon damage (Shiley 6.0 Proximal XLT) Chronic Respiratory Failure s/p Tracheostomy 4 years ago COPD/obesity hypoventilation syndrome History of pulmonary embolism 4 years ago Leukocytosis Pulmonary edema -Continue mechanical ventilation PRVC TV 650 iT 1.5, PEEP 12 increase to 16 FiO2 .90, Titrate to keep SaO2 >90%. Currently O2 sat 93% -Flolan initiated 04/27 at maximum doses 50 ng -Healthcare associated pneumonia (MDRO) is being treated with IV Vancomycin, Zerbaxa and Colistin nebs, ID following -Sputum culture revealed Pseudomonas MDR -DuoNeb every 4 hours scheduled -Pulmicort BID (home med) -Continue IV Solu-Medrol to 60 mg every 6 hour -Therapeutic Lovenox 150 mg every 12 hours -Chest x-ray bibasilar infiltrates unchanged CV: CHF exacerbation Pulmonary edema Chronic atrial fibrillation -Lasix infusion increased to 15 mg/hour will monitor potassium every 6 hours- reduce to 10 mg per hour -Metolazone 10 mg IV push 05/02 -Metolazone 5 mg daily -A. fib rate controlled -Therapeutic Lovenox 150 mg twice a day GI: Super morbid obesity with BMI of 68 -Tube feeds Glucerna 30/hr -IV Protonix IV -SSI per ICU protocol : -BMP every 6 hours monitor potassium, phosphorus and magnesium closely -Scheduled doses potassium 80 mg , 4 times a day -Monitor renal function closely. -Diuretic resistance .currently on Lasix infusion 15 mg/hr, Metolazone added. Reduce Lasix to 10 mg per hour -Milan catheter -Change today -Urine culture revealed Dionne-, Fluconazole (Day 1) - Strict I&O ID: Healthcare associated pneumonia Sepsis MDRO Possible cellulitis right arm and fast Leukocytosis -Continue IV vancomycin, Zebaxa (Day 4 )and Fluconazole (Day 2). Continue colistin nebs - Blood urine and blood culture NGTD. Repeat blood and urine culture today - Wound culture Pseudomonas MDR -Sputum culture-Pseudomonas MDR-colistin inhalation -ID consulted, follow-up recommendations HEME: History of PE on chronic anticoagulation with Xarelto Leukocytosis -Monitor CBC, CMP, coags -Xarelto for PE 4 yrs ago. -Hold Xarelto. -Changed to Lovenox 150 mg twice a day ENDO: Hypothyroidism -Electrolyte replacement protocol -Continue levothyroxine 25 mcgs IV daily PROPH: -Bilateral lower extremity SCDs. Lovenox DVT prophylaxis. IV Protonix for GI prophylaxis LINES: - PICC line (day 8) RUE No DVT on US This patient remains critically ill with one or more organ systems which are or may become a threat to life. I have spent in excess of 45 minutes discontinuously in the care and management of this patient. This time is exclusive of procedures, and includes, but is not limited to, evaluation of the patient, review of the medical record, discussions with family, consultants, nursing staff, or respiratory therapy, and documentation in the medical record. Discussed with RN at bedside. The patient mother was notified of all above events by Dr. Morgan, and guarded prognosis. Jaquan Zelaya MD May 03, 2016 06:41
--- NOTE | 2016-05-03 07:16 | RADRPT ---
EXAM DATE/TIME: 05/03/2016 06:40 [facility] COMPARISON: CHEST SINGLE AP, May 01, 2016, 2:11. INDICATIONS : Respiratory disease. MEDICAL HISTORY : Venous insufficiency. Hypercholesterolemia. Hypertension. Congestive heart failure. Anticoagula nt therapy. Atrial fibrillation. Dyspnea. Pulmonary embolism. SURGICAL HISTORY : Tonsillectomy. Vocal cord surgery. Tracheostomy. ENCOUNTER: Subsequent ACUITY: 3 months PAIN SCORE: Non-responsive. LOCATION: chest FINDINGS: There are diffuse bilateral pulmonary infiltrates in both lung muhammad which appear to be increased co mpared to the prior examination. No definite pneumothorax. There is a right-sided PICC line in place. There is a loop in the distal PICC line at the level of the superior vena cava. The heart size remai ns diffusely enlarged but stable compared to the prior study. There is a tracheostomy tube in place. CONCLUSION: Increasing bilateral diffuse pulmonary infiltrates compared to the prior study. Lázaro Frankel MD on May 03, 2016 at 7:12 Board Certified Radiologist. This report was verified electronically.
[2016-05-03] MEDS: POTASSIUM CL 40 MEQ/30 ML LIQ UDC PO/TUBE PRN (07:33)
[2016-05-03] MEDS: MIDAZOLAM 100 MG/NS 100 ML DRIP Premix IV SCH (07:33)
[2016-05-03] MEDS: MONTELUKAST SODIUM 10 MG TAB PO SCH (07:33)
[2016-05-03] MEDS: POTASSIUM CHLOR 40 MEQ PREMIX 100 ML IV PRN (07:33)
[2016-05-03] MEDS: FENOFIBRATE 48 MG TAB PO SCH (07:34)
[2016-05-03] MEDS: ATORVASTATIN 10 MG TAB PO SCH (07:34)
[2016-05-03] MEDS: ALLOPURINOL 300 MG TAB PO SCH (07:34)
[2016-05-03] MEDS: MICONAZOLE NITRATE 2% CREAM 15 GM TOP SCH ×2 (07:35→19:39)
[2016-05-03] MEDS: SODIUM CHLORIDE 0.9% FLUSH 5 ML FLUSH FLUSH SCH ×2 (07:36→19:38)
[2016-05-03] MEDS: RESP: BUDESONIDE 0.5 MG/2 ML NEB NEB SCH ×2 (07:46→19:51)
[2016-05-03] MEDS: RESP: COLISTIN 150 MG VIAL NEB SCH ×2 (07:46→19:46)
--- NOTE | 2016-05-03 07:47 | HHI.PR ---
Subjective Subjective Notes Trach working fine per RN Objective Vitals/I&O Vital Signs Date Time Temp Pulse Resp B/P Pulse Ox O2 Delivery O2 Flow Rate FiO2 05/03/16 06:00 84 05/03/16 04:04 94 90 05/03/16 04:00 101.2 22 127/68 Labs Laboratory Tests Test 05/02/16 05/02/16 05/03/16 16:48 23:10 04:00 Potassium Level 3.4 3.3 3.2 Sodium Level 140 142 Chloride Level 94 94 Carbon Dioxide Level 39.4 39.3 Anion Gap 7 9 Blood Urea Nitrogen 25 27 Creatinine 1.02 0.95 Estimat Glomerular Filtration 85 92 Rate Random Glucose 140 145 Calcium Level 8.5 9.3 White Blood Count 14.9 Red Blood Count 5.02 Hemoglobin 11.5 Hematocrit 37.0 Mean Corpuscular Volume 73.8 Mean Corpuscular Hemoglobin 22.9 Mean Corpuscular Hemoglobin 31.1 Concent Red Cell Distribution Width 19.1 Platelet Count 200 Mean Platelet Volume 8.0 Neutrophils (%) (Auto) 93.0 Lymphocytes (%) (Auto) 2.9 Monocytes (%) (Auto) 4.0 Eosinophils (%) (Auto) 0.0 Basophils (%) (Auto) 0.1 Neutrophils # (Auto) 13.9 Lymphocytes # (Auto) 0.4 Monocytes # (Auto) 0.6 Eosinophils # (Auto) 0.0 Basophils # (Auto) 0.0 CBC Comment AUTO DIFF Magnesium Level 2.6 Date/Time Procedure Status Source Growth 05/01/16 18:40 Urine Culture - Preliminary Resulted Urine Clean Catch Dionne Albicans 05/01/16 12:00 Aerobic Blood Culture - Preliminary Resulted Blood Peripheral NO GROWTH IN 1 DAY 05/01/16 12:00 Anaerobic Blood Culture - Preliminary Resulted Blood Peripheral NO GROWTH IN 1 DAY Narrative Exam Trach in place. A/P Assessment and Plan s/p urgent/ emergent trach exchange yesterday, stable by RN report overnight. We will sign off. Please call if needed. Maxwell Macias MD May 03, 2016 07:47
[2016-05-03] MEDS: CHLORHEXIDINE 0.12% (ORAL KIT) 15 ML CUP MT SCH ×2 (08:00→19:37)
[2016-05-03] MEDS: EPOPROSTENOL NEB SOLUTION 50 NG/KG/MIN 100 ML NEB SCH ×6 (08:12→19:37)
[2016-05-03 09:11] LABS: SCAN/DIFF AUTO DIFF CONFIRMED
--- NOTE | 2016-05-03 13:05 | HHI.FPPN ---
Subjective Remarks Patient underwent urgent/emergent trach exchange yesterday, was stable overnight per RN. Tmax overnight 101.5 taken axillary. FiO2 at 80% this AM. 9950 mL UOP over past 24 hours. Lower extremity edema visibly improved. ( Brandon Canales MD R1) Objective Vitals Vital Signs Date Time Temp Pulse Resp B/P Pulse Ox O2 Delivery O2 Flow Rate FiO2 05/03/16 12:28 92 70 05/03/16 12:00 84 05/03/16 12:00 101.3 84 18 121/68 93 05/03/16 12:00 75 05/03/16 10:00 84 05/03/16 09:35 94 80 05/03/16 08:00 85 05/03/16 08:00 91 05/03/16 08:00 102.8 91 18 136/71 94 05/03/16 07:54 94 85 05/03/16 06:00 84 05/03/16 04:04 94 90 05/03/16 04:00 90 05/03/16 04:00 79 05/03/16 04:00 101.2 79 22 127/68 94 05/03/16 02:00 79 05/03/16 00:00 101.0 82 22 124/71 94 05/03/16 00:00 90 05/03/16 00:00 82 05/02/16 23:52 94 90 05/02/16 22:00 76 05/02/16 20:00 79 05/02/16 20:00 100.4 79 22 124/66 93 05/02/16 20:00 90 05/02/16 19:41 95 90 05/02/16 18:00 85 05/02/16 16:00 100 05/02/16 16:00 84 05/02/16 16:00 101.5 84 22 112/55 91 05/02/16 15:30 90 100 05/02/16 14:00 90 I/O 05/02/16 05/02/16 05/02/16 05/03/16 05/03/16 05/03/16 07:00 15:00 23:00 07:00 15:00 23:00 Intake Total 1182 ml 1477 ml 1544 ml 949 ml Output Total 1950 ml 1350 ml 5150 ml 3450 ml 1550 ml Balance -768 ml 127 ml -3606 ml -2501 ml -1550 ml IV Total 967 ml 1252 ml 1300 ml 949 ml Tube Feeding 215 ml 225 ml 244 ml Output Urine Total 1950 ml 1350 ml 5150 ml 3450 ml 1550 ml # Bowel Movements 0 (Brandon Canales MD R1) Result Diagram: 05/03/1639905/03/16399 Objective Remarks GENERAL: Sedated in bed, on mechanical ventilation, NG tube in place. SKIN: Warm and dry. No rashes or lesions. HEAD: Normocephalic. Atraumatic. ENT: No nasal drainage. Tracheotomy site is clean and dry without drainage. NECK: No JVD. CARDIOVASCULAR: Distant heart sounds. Regular rate and rhythm without murmurs, gallops, or rubs. Peripheral pulses 2+. RESPIRATORY: On mechanical ventilation. Clear to auscultation bilaterally. No rales or rhonchi. GASTROINTESTINAL: Abdomen soft, non-tender, obese, normal BS. Unable to assess for organomegaly or masses. MUSCULOSKELETAL: Lower extremity edema improved from prior examination. NEURO: Sedated. (Brandon Canales MD R1) Date of Insertion: Apr 24, 2016 (Brandon Canales MD R1) Date of Insertion: Apr 26, 2016 Line: PICC Side: Right (Brandon Canales MD R1) A/P Assessment and Plan 31 year old male with a PMH of chronic respiratory failure s/p tracheostomy 4 years ago, morbid obesity with BMI 67.6, atrial fibrillation and pulmonary embolism on Xarelto, CHF, and h/o HTN in long-term rehab at [facility] presented to the ED after having low oxygen saturation at 82% on RA. He was admitted for shortness of breath likely secondary to a combination of HCAP, COPD exacerbation and CHF exacerbation. He is currently in acute respiratory failure, on mechanical ventilation in the intensive care unit and being managed by critical care. Discharge Planning Unclear timetable at this time. Patient will need to be weaned from mech vent with stable clinical status. Hopeful for patient to be able to return to long- term rehab facility. (Brandon Canales MD R1) Attending Attestation Patient seen and examined. Case reviewed and discussed Agree with plan of care as discussed with me and documented in the resident note. (Bernice Garcia MD) Problem List: (1) On mechanically assisted ventilation Status: Acute Plan: Critical care actively managing acute hypercapnic and hypoxemic respiratory failure and HCAP at this time Patient placed on mechanical ventilation on 04/24, FiO2 now 80% with PEEP 12 S/p urgent/emergent trach exchange 05/02 due to acute hypoxemia and large cuff leak Continue Solumedrol 60 mg IV q6h (2) HCAP (healthcare-associated pneumonia) Status: Acute Plan: Afebrile overnight Leukocytosis 14.9 on steroids Repeat ABG on 04/26 showed improvement with CO2 56 with pH 7.40 04/24 BCXs no growth 05/01 BCXs no growth Repeat BCXs 05/03 pending CXR 04/29 showing stable bibasilar consolidative infiltrates 04/30 CXR shows bilateral airspace disease greater in the right lower lobe 04/27 Sputum culture growing resistant pseudomonas Zosyn 4.5gm IV q6h (04/24 - dced 04/29), Levaquin 750mg IV q24h (04/24-04/30) - Infectious Disease consulted- started Zerbaxa 1.5g IV Q8H for pseudomonas coverage * Continue Vancomycin 2gm IV q12h * Colistin nebs * Diflucan - Duonebs q2h (3) CHF (congestive heart failure) Status: Chronic Plan: Last ECHO 09/18/2015 showing a grossly normal systolic function with no definitive EF as it was difficult to assess, ECHO on 05/2014 with EF of 40-45% with mildly dilated left atrium 04/25 ECHO was limited due to poor image quality, EF could not be adequately estimated. Systolic function appears to be grossly normal. BNP on admission 419, repeat BNP 151 -Lasix IV drip; good UOP, monitor I&Os (4) Atrial fibrillation Status: Chronic Plan: Last EKG in sinus rhythm RRR on exam Home dose of Xarelto 20 mg po daily has been held in anticipation of possible surgery. Currently on Lovenox 150mg SQ Q12H. (5) Tracheostomy present Status: Chronic Plan: S/p urgent/emergent trach exchange 05/02 due to acute hypoxemia and large cuff leak Has been stable since procedure (6) HTN (hypertension) Status: Chronic Plan: BPs stable Hold home BP medications (7) Morbid obesity with BMI of 60.0-69.9, adult Status: Chronic Plan: Likely contributing to chronic respiratory issues (8) Hypothyroidism Status: Chronic Plan: Synthroid 25 mcg IV daily (9) Nutrition, metabolism, and development symptoms Status: Acute Plan: Fluids: none Electrolytes: Monitor and replete when necessary per protocol Nutrition: NG tube, tube feeds with Glucerna 30ml/hr DVT PPx: Therapeutic Lovenox 150mg subq q12h sdw Dr. Garcia, Dr. Ko, and Rosie Abel, MS4 (Brandon Canales MD R1) Problem Qualifiers (1) CHF (congestive heart failure): Qualified Code: I50.9 - Acute on chronic congestive heart failure, unspecified congestive heart failure type (2) Atrial fibrillation: Qualified Code: I48.2 - Chronic atrial fibrillation (3) HTN (hypertension): Qualified Code: I10 - Essential hypertension (4) Hypothyroidism: Qualified Code: E03.9 - Hypothyroidism, unspecified type Brandon Canales MD R1 May 03, 2016 13:05 Bernice Garcia MD May 06, 2016 10:18
[2016-05-03 13:19] LABS: BICARBONATE 41.7 MEQ/L (21.0-32.0); POTASSIUM 3.9 MEQ/L (3.5-5.1)
[2016-05-03] MEDS: FLUCONAZOLE 400 MG PREMIX BAG 200 ML IV SCH (17:00)
--- NOTE | 2016-05-03 18:40 | HHI.IDPN ---
Subjective Subjective Remarks ID Xcover for Dr Tam Notes reviewed D/W RN Had problems with trach today and had emergent revision of his trach at bedside Morbidly obese male with chronic resp failure, chronic trach remains on 70% FiO2, PEEP 16 , sats currently 92% Febrile to 102.3 Sedated on the vent per RN redness on his R chest and R arm has improved BP ok off pressors Sputum with MDR PSAE, S to Zerbaxa Antibiotics Zerbaxa Colistin nebs Vanco and Diflucan Lines PICC RUE Past Medical History Chronic Respiratory Failure s/p Tracheostomy 4 years ago Morbid Obesity w/ BMI 67.6 Atrial fibrillation Pulmonary embolism 4 years ago Anxiety CHF (Echo 06/07/2014 w/ EF 40-45%; ECHO 08/2015 showing a grossly normal systolic function) HTN Hypothyroidism Past Surgical History Tracheostomy Tonsillectomy Allergies: Coded Allergies: No Known Allergies (Unverified , 09/16/15) Objective . Vital Signs Date Time Temp Pulse Resp B/P Pulse Ox O2 Delivery O2 Flow Rate FiO2 05/03/16 18:00 80 05/03/16 17:32 93 60 05/03/16 16:00 76 05/03/16 16:00 60 05/03/16 16:00 99.5 76 19 116/64 92 05/03/16 14:00 83 05/03/16 12:28 92 70 05/03/16 12:00 84 05/03/16 12:00 101.3 84 18 121/68 93 05/03/16 12:00 75 05/03/16 10:00 84 05/03/16 09:35 94 80 05/03/16 08:00 85 05/03/16 08:00 91 05/03/16 08:00 102.8 91 18 136/71 94 05/03/16 07:54 94 85 05/03/16 06:00 84 05/03/16 04:04 94 90 05/03/16 04:00 90 05/03/16 04:00 79 05/03/16 04:00 101.2 79 22 127/68 94 05/03/16 02:00 79 05/03/16 00:00 101.0 82 22 124/71 94 05/03/16 00:00 90 05/03/16 00:00 82 05/02/16 23:52 94 90 05/02/16 22:00 76 05/02/16 20:00 79 05/02/16 20:00 100.4 79 22 124/66 93 05/02/16 20:00 90 05/02/16 19:41 95 90 05/02/16 05/02/16 05/03/16 15:00 23:00 07:00 Intake Total 1477 ml 1544 ml 949 ml Output Total 1350 ml 5150 ml 3450 ml Balance 127 ml -3606 ml -2501 ml IV Total 1252 ml 1300 ml 949 ml Tube Feeding 225 ml 244 ml Output Urine Total 1350 ml 5150 ml 3450 ml # Bowel Movements 0 . Laboratory Tests Test 05/02/16 05/03/16 05:55 04:00 White Blood Count 15.6 TH/MM3 14.9 TH/MM3 Red Blood Count 4.64 MIL/MM3 5.02 MIL/MM3 Hemoglobin 10.7 GM/DL 11.5 GM/DL Hematocrit 34.3 % 37.0 % Mean Corpuscular Volume 73.9 FL 73.8 FL Mean Corpuscular Hemoglobin 23.0 PG 22.9 PG Mean Corpuscular Hemoglobin 31.1 % 31.1 % Concent Red Cell Distribution Width 19.6 % 19.1 % Platelet Count 212 TH/MM3 200 TH/MM3 Mean Platelet Volume 8.1 FL 8.0 FL Neutrophils (%) (Auto) 80.3 % 93.0 % Lymphocytes (%) (Auto) 9.1 % 2.9 % Monocytes (%) (Auto) 10.4 % 4.0 % Eosinophils (%) (Auto) 0.2 % 0.0 % Basophils (%) (Auto) 0.0 % 0.1 % Neutrophils # (Auto) 12.5 TH/MM3 13.9 TH/MM3 Lymphocytes # (Auto) 1.4 TH/MM3 0.4 TH/MM3 Monocytes # (Auto) 1.6 TH/MM3 0.6 TH/MM3 Eosinophils # (Auto) 0.0 TH/MM3 0.0 TH/MM3 Basophils # (Auto) 0.0 TH/MM3 0.0 TH/MM3 CBC Comment AUTO DIFF AUTO DIFF Differential Comment AUTO DIFF AUTO DIFF CONFIRMED CONFIRMED Basophilic Stippling FAINT Tear Drop Cells 1+ Laboratory Tests Test 11/2/16 11/3/16 11/3/16 11/3/16 18:27 05:55 16:48 23:10 Sodium Level 138 MEQ/L 141 MEQ/L 140 MEQ/L Potassium Level 3.3 MEQ/L 2.8 MEQ/L 3.4 MEQ/L 3.3 MEQ/L Chloride Level 98 MEQ/L 100 MEQ/L 94 MEQ/L Carbon Dioxide Level 34.2 MEQ/L 34.1 MEQ/L 39.4 MEQ/L Anion Gap 6 MEQ/L 7 MEQ/L 7 MEQ/L Blood Urea Nitrogen 27 MG/DL 26 MG/DL 25 MG/DL Creatinine 0.96 MG/DL 0.84 MG/DL 1.02 MG/DL Estimat Glomerular Filtration 91 ML/MIN 106 ML/MIN 85 ML/MIN Rate Random Glucose 134 MG/DL 99 MG/DL 140 MG/DL Calcium Level 8.3 MG/DL 8.6 MG/DL 8.5 MG/DL Phosphorus Level 3.2 MG/DL 2.3 MG/DL Magnesium Level 2.6 MG/DL 2.3 MG/DL Test 05/03/16 05/03/16 04:00 12:20 Sodium Level 142 MEQ/L 144 MEQ/L Potassium Level 3.2 MEQ/L 3.9 MEQ/L Chloride Level 94 MEQ/L 96 MEQ/L Carbon Dioxide Level 39.3 MEQ/L 41.7 MEQ/L Anion Gap 9 MEQ/L 6 MEQ/L Blood Urea Nitrogen 27 MG/DL 32 MG/DL Creatinine 0.95 MG/DL 0.98 MG/DL Estimat Glomerular Filtration 92 ML/MIN 89 ML/MIN Rate Random Glucose 145 MG/DL 149 MG/DL Calcium Level 9.3 MG/DL 9.1 MG/DL Magnesium Level 2.6 MG/DL Microbiology Date/Time Procedure Status Source Growth 05/01/16 11:55 Aerobic Blood Culture - Preliminary Resulted Blood Peripheral NO GROWTH IN 2 DAYS 05/01/16 11:55 Anaerobic Blood Culture - Preliminary Resulted Blood Peripheral NO GROWTH IN 2 DAYS 05/01/16 12:00 Aerobic Blood Culture - Preliminary Resulted Blood Peripheral NO GROWTH IN 2 DAYS 05/01/16 12:00 Anaerobic Blood Culture - Preliminary Resulted Blood Peripheral NO GROWTH IN 2 DAYS 05/01/16 18:40 Urine Culture - Final Complete Urine Clean Catch Dionne Albicans 05/03/16 06:40 Urine Culture Received Urine Catheterized Urine Pending 05/03/16 09:50 Aerobic Blood Culture Received Blood Peripheral Pending 05/03/16 09:50 Anaerobic Blood Culture Received Blood Peripheral Pending 05/03/16 09:56 Aerobic Blood Culture Received Blood Peripheral Pending 05/03/16 09:56 Anaerobic Blood Culture Received Blood Peripheral Pending Imaging Last Impressions Chest X-Ray 05/03/16 0000 Signed Impressions: Service Date/Time: Tuesday, May 03, 2016 06:40 - CONCLUSION: Increasing bilateral diffuse pulmonary infiltrates compared to the prior study. Lázaro Frankel MD Upper Extremity Ultrasound 05/02/16 0000 Signed Impressions: Service Date/Time: April 20:51 - CONCLUSION: No DVT. Garcia Lujan MD Abdomen X-Ray 04/29/16 0000 Signed Impressions: Service Date/Time: Friday, April 29, 2016 07:12 - CONCLUSION: Suspect Dobbhoff tube in the distal stomach. Garcia Lujan MD Physical Exam GENERAL: This is a morbidly obese male, sedated, on the vent, not in distress. SKIN: Warm and moist. Generalized rash. No cyanosis noted. HEAD: Atraumatic. Normocephalic. No temporal or scalp tenderness. EYES: Beaver conjunctivae. Pupils equal round and reactive. No scleral icterus. Has mild conjunctival injection bilaterally. ENT: Nose without purulent drainage. Moist mucosa. Has a lot of oral secretions. NECK: Short and obese, has new trach, site ok. Supple, no meningeal signs. CARDIOVASCULAR: Regular rate and rhythm without murmurs, gallops, or rubs. Distant heart sounds. There is an area of erythema with heat on his R shoulder and goes to his R breast, as well as redness in his R upper arm above his PICC RESPIRATORY: Decreased BS bilaterally. GASTROINTESTINAL: Abdomen soft, morbidly obese, no reaction to palpation, not distended. Bowel sounds presentr and hypoactive. MUSCULOSKELETAL: Extremities without clubbing, cyanosis. Has mild pitting edema. NEUROLOGICAL: Sedated PSYCH: Unable to assess LINE: PICC in RUE, site ok, but has that area of redness going up the arm, no palpable cord : Willard in place, urine looks clear Assessment & Plan Remarks IMPRESSION Chronic respiratory failure, has trach, has HCAP - C/S with MDR PSAE MDR PSAE PNA Fevers higher, ?new infection Leukocytosis, due to PNA, and partly due to steroids Has an area of cellulitis in his RUEm and R chest, ?from PICC Morbid obesity Hx PE Candiduria, UA only with 18 WBC, likely colonization RECOMMENDATION Continue Zerbaxa Continue colistin nebs Doppler US RUE to eval PICC cont Vanco and Diflucan fu repeat 2 BC today Monitor progress Follow CBC Too unstable to have new PICC placement - cant lie flat, requiring a lot of vent support Hold off on willard change D/W RN Dr Land covering this weekend Gypsy Patiño MD May 03, 2016 18:40
[2016-05-03 23:35] LABS: BICARBONATE 39.7 MEQ/L (21.0-32.0)
[2016-05-03 23:36] LABS: POTASSIUM 3.3 MEQ/L (3.5-5.1)
[2016-05-04] VITALS (19 sets, daily range): BP systolic 108–128; BP diastolic 59–70; PULSE 66–100; RESP 18; TEMP 98.1–102; O2SAT 89–94
[2016-05-04] MEDS: PROPOFOL 1000 MG/100 ML INJ 100 ML IV SCH ×9 (00:06→22:58)
[2016-05-04] MEDS: POTASSIUM CHLOR 40 MEQ PREMIX 100 ML IV PRN (00:07)
[2016-05-04] MEDS: PANTOPRAZOLE SODIUM 40 MG VIAL IV PUSH SCH ×2 (03:07→14:26)
[2016-05-04] MEDS: EPOPROSTENOL NEB SOLUTION 50 NG/KG/MIN 100 ML NEB SCH ×4 (03:15→12:00)
[2016-05-04] MEDS: RESP: ALBUTEROL 2.5 MG/IPRATROPIUM 0.5 MG NEB (SCH) NEB ×4 (03:53→19:56)
[2016-05-04] MEDS: ENOXAPARIN SODIUM 150 MG/ML SYRINGE SQ SCH ×2 (03:58→17:29)
[2016-05-04] MEDS: CEFTOLOZANE-TAZOBACTAM INJ 1,500 MG in SODIUM CHLORIDE 0.9% INJ 100 ML IV SCH ×3 (03:58→20:10)
[2016-05-04] MEDS: POTASSIUM CHLORIDE 20 MEQ PWD PACKET NG SCH ×4 (05:00→23:00)
[2016-05-04] MEDS: LEVOTHYROXINE SODIUM 100 MCG VIAL IV PUSH SCH (05:29)
[2016-05-04] MEDS: VANCOMYCIN INJ 2,000 MG in SODIUM CHLORID 0.9% 500 ML INJ 500 ML IV SCH ×2 (05:29→23:59)
[2016-05-04] MEDS: methylPREDNISolone SOD SUCC 40 MG/1 ML VIAL IV PUSH SCH ×3 (05:29→17:30)
[2016-05-04] MEDS ORDERED: PHARMACY ORDERED LAB XX ONE (05:45)
[2016-05-04 06:58] LABS: AUTOMATED NEUTROPHIL # 13.8 TH/MM3 (1.8-7.7); BASOPHIL % 0.2 % (0.0-2.0); HEMATOCRIT 34.9 % (39.0-51.0); LYMPH % 3.9 % (9.0-44.0); LYMPHOCYTE # 0.6 TH/MM3 (1.0-4.8); MEAN CELL VOLUME 75.4 FL (80.0-100.0); MEAN CORPUSCULAR HEMOGLOBIN 24.8 PG (27.0-34.0); MEAN CORPUSCULAR HGB CONC 32.9 % (32.0-36.0); MONO % 4.2 % (0.0-8.0); NEUT % 91.7 % (16.0-70.0); PLATELET COUNT 207 TH/MM3 (150-450); RED BLOOD COUNT 4.63 MIL/MM3 (4.50-5.90); RED CELL DISTRIBUTION WIDTH 19.1 % (11.6-17.2); WHITE BLOOD COUNT 15.1 TH/MM3 (4.0-11.0)
[2016-05-04 07:05] LABS: HEMO FLAGS AUTO DIFF
[2016-05-04 07:25] LABS: BICARBONATE 43.7 MEQ/L (21.0-32.0); POTASSIUM 3.4 MEQ/L (3.5-5.1)
[2016-05-04] MEDS: FUROSEMIDE IV SCH (09:05)
[2016-05-04] MEDS: fentaNYL DRIP 250 ML IV SCH (09:05)
[2016-05-04] MEDS: MIDAZOLAM 100 MG/NS 100 ML DRIP Premix IV SCH (09:05)
[2016-05-04] MEDS: SODIUM CHLORIDE 0.9% IV SCH (09:05)
[2016-05-04] MEDS: MONTELUKAST SODIUM 10 MG TAB PO SCH (09:06)
[2016-05-04] MEDS: ATORVASTATIN 10 MG TAB PO SCH (09:06)
[2016-05-04] MEDS: POTASSIUM CL 40 MEQ/30 ML LIQ UDC PO/TUBE PRN (09:06)
[2016-05-04] MEDS: ACETAMINOPHEN 325 MG TAB PO PRN (09:06)
[2016-05-04] MEDS: METOLAZONE 5 MG TAB NG SCH (09:06)
[2016-05-04] MEDS: FENOFIBRATE 48 MG TAB PO SCH (09:06)
[2016-05-04] MEDS: ALLOPURINOL 300 MG TAB PO SCH (09:06)
[2016-05-04] MEDS: SODIUM CHLORIDE 0.9% FLUSH 5 ML FLUSH FLUSH SCH ×2 (09:07→20:10)
[2016-05-04] MEDS: CHLORHEXIDINE 0.12% (ORAL KIT) 15 ML CUP MT SCH ×2 (09:07→20:11)
[2016-05-04] MEDS: MICONAZOLE NITRATE 2% CREAM 15 GM TOP SCH ×2 (09:08→20:10)
[2016-05-04 09:34] LABS: SCAN/DIFF AUTO DIFF CONFIRMED
[2016-05-04] MEDS: RESP: BUDESONIDE 0.5 MG/2 ML NEB NEB SCH ×2 (09:54→19:56)
[2016-05-04] MEDS: RESP: COLISTIN 150 MG VIAL NEB SCH (09:54)
--- NOTE | 2016-05-04 11:35 | HHI.FPPN ---
Subjective Remarks Febrile up to 102 with tachycardia up to 100. Ventilation settings on 60% FiO2 and PEEP of 16. Intake 4517 mL, output 8125 mL, balance negative 3608 mL the past 24 hours. (Allegra Ko MD R2) Objective Vitals Vital Signs Date Time Temp Pulse Resp B/P Pulse Ox O2 Delivery O2 Flow Rate FiO2 05/04/16 11:00 91 60 05/04/16 10:06 18 05/04/16 10:00 100 05/04/16 08:13 91 60 05/04/16 08:00 102.0 80 18 108/60 91 05/04/16 08:00 80 05/04/16 08:00 60 05/04/16 06:00 80 05/04/16 04:00 60 05/04/16 04:00 80 05/04/16 04:00 98.1 82 18 110/59 91 05/04/16 03:54 92 60 05/04/16 02:00 80 05/04/16 01:03 91 70 05/04/16 00:00 60 05/04/16 00:00 98.2 81 18 128/67 94 05/04/16 00:00 80 05/03/16 22:00 83 05/03/16 20:00 80 05/03/16 20:00 98.7 82 18 124/66 92 05/03/16 20:00 60 05/03/16 19:51 92 60 05/03/16 18:00 80 05/03/16 17:32 93 60 05/03/16 16:00 76 05/03/16 16:00 60 05/03/16 16:00 99.5 76 19 116/64 92 05/03/16 14:00 83 05/03/16 12:28 92 70 05/03/16 12:00 84 05/03/16 12:00 101.3 84 18 121/68 93 05/03/16 12:00 75 I/O 05/03/16 05/03/16 05/03/16 05/04/16 05/04/16 05/04/16 07:00 15:00 23:00 07:00 15:00 23:00 Intake Total 949 ml 1895 ml 1510 ml 1112 ml Output Total 3450 ml 3275 ml 2800 ml 2050 ml Balance -2501 ml -1380 ml -1290 ml -938 ml IV Total 949 ml 1365 ml 1225 ml 962 ml Tube Feeding 530 ml 285 ml 150 ml Output Urine Total 3450 ml 3275 ml 2800 ml 2050 ml # Bowel Movements 0 0 0 0 (Allegra Ko MD R2) Result Diagram: 05/04/16 0540 05/04/16 0540 Imaging Last Impressions Chest X-Ray 05/03/16 0000 Signed Impressions: Service Date/Time: Tuesday, May 03, 2016 06:40 - CONCLUSION: Increasing bilateral diffuse pulmonary infiltrates compared to the prior study. Lázaro Frankel MD Upper Extremity Ultrasound 05/02/16 0000 Signed Impressions: Service Date/Time: April 20:51 - CONCLUSION: No DVT. Garcia Lujan MD Abdomen X-Ray 04/29/16 0000 Signed Impressions: Service Date/Time: Friday, April 29, 2016 07:12 - CONCLUSION: Suspect Dobbhoff tube in the distal stomach. Garcia Lujan MD Objective Remarks GENERAL: Sedated in bed, on mechanical ventilation, NG tube in place. SKIN: Warm and dry. No rashes or lesions. HEAD: Normocephalic. Atraumatic. ENT: No nasal drainage. Tracheotomy site is clean and dry without drainage. NECK: No JVD. CARDIOVASCULAR: Distant heart sounds. Regular rate and rhythm without murmurs, gallops, or rubs. Peripheral pulses 2+. RESPIRATORY: On mechanical ventilation. Clear to auscultation bilaterally. No rales or rhonchi. GASTROINTESTINAL: Abdomen soft, obese, normal BS. Unable to assess for organomegaly or masses. MUSCULOSKELETAL: Lower extremity edema improved from prior examination. NEURO: Sedated. (Allegra Ko MD R2) Urinary Catheter: Yes Date of Insertion: Apr 24, 2016 (Allegra Ko MD R2) Date of Insertion: Apr 26, 2016 Line: PICC Side: Right (Allegra Ko MD R2) A/P Assessment and Plan 31 year old male with a PMH of chronic respiratory failure s/p tracheostomy 4 years ago, morbid obesity with BMI 67.6, atrial fibrillation and pulmonary embolism on Xarelto, CHF, and h/o HTN in long-term rehab at [facility] presented to the ED after having low oxygen saturation at 82% on RA. He was admitted for shortness of breath likely secondary to a combination of HCAP, COPD exacerbation and CHF exacerbation. He is currently in acute respiratory failure, on mechanical ventilation in the intensive care unit and being managed by critical care. Discharge Planning Unclear timetable at this time. Patient will need to be weaned from mech vent with stable clinical status. Hopeful for patient to be able to return to long- term rehab facility. (Allegra Ko MD R2) Problem List: (1) On mechanically assisted ventilation Status: Acute Plan: Critical care actively managing acute hypercapnic and hypoxemic respiratory failure and HCAP at this time Patient placed on mechanical ventilation on 04/24, FiO2 now 60% with PEEP 16 S/p urgent/emergent trach exchange 05/02 due to acute hypoxemia and large cuff leak Continue Solumedrol 60 mg IV q6h (2) HCAP (healthcare-associated pneumonia) Status: Acute Plan: Febrile up to 102 Leukocytosis 15.1 this AM Repeat ABG on 04/26 showed improvement with CO2 56 with pH 7.40 04/24 BCXs no growth 05/01 BCXs no growth in 3 days 05/03 BCx no growth in 1 day CXR 04/29 showing stable bibasilar consolidative infiltrates 04/30 CXR shows bilateral airspace disease greater in the right lower lobe 04/27 Sputum culture growing resistant pseudomonas Zosyn 4.5gm IV q6h (04/24 - dced 04/29), Levaquin 750mg IV q24h (04/24-04/30) - Infectious Disease consulted- started Zerbaxa 1.5g IV Q8H for pseudomonas coverage * Continue Vancomycin 2gm IV q12h * Colistin nebs * Diflucan - Duonebs q2h (3) CHF (congestive heart failure) Status: Chronic Plan: Last ECHO 09/18/2015 showing a grossly normal systolic function with no definitive EF as it was difficult to assess, ECHO on 05/2014 with EF of 40-45% with mildly dilated left atrium 04/25 ECHO was limited due to poor image quality, EF could not be adequately estimated. Systolic function appears to be grossly normal. BNP on admission 419, repeat BNP 151 -Lasix IV drip; good UOP, monitor I&Os (4) Atrial fibrillation Status: Chronic Plan: Last EKG in sinus rhythm RRR on exam Home dose of Xarelto 20 mg po daily has been held in anticipation of possible surgery. Currently on Lovenox 150mg SQ Q12H. (5) Tracheostomy present Status: Chronic Plan: S/p urgent/emergent trach exchange 05/02 due to acute hypoxemia and large cuff leak Has been stable since procedure (6) HTN (hypertension) Status: Chronic Plan: BPs stable Hold home BP medications (7) Morbid obesity with BMI of 60.0-69.9, adult Status: Chronic Plan: Likely contributing to chronic respiratory issues (8) Hypothyroidism Status: Chronic Plan: Synthroid 25 mcg IV daily (9) Nutrition, metabolism, and development symptoms Status: Acute Plan: Fluids: none Electrolytes: Monitor and replete when necessary per protocol Nutrition: NG tube, tube feeds with Glucerna 30ml/hr DVT PPx: Therapeutic Lovenox 150mg subq q12h dw Dr. Garcia (Allegra Ko MD R2) Problem Qualifiers (1) CHF (congestive heart failure): Qualified Code: I50.9 - Acute on chronic congestive heart failure, unspecified congestive heart failure type (2) Atrial fibrillation: Qualified Code: I48.2 - Chronic atrial fibrillation (3) HTN (hypertension): Qualified Code: I10 - Essential hypertension (4) Hypothyroidism: Qualified Code: E03.9 - Hypothyroidism, unspecified type Allegra Ko MD R2 May 04, 2016 11:35 Bernice Garcia MD May 06, 2016 10:17
--- NOTE | 2016-05-04 14:23 | HHI.CCPN ---
Subjective Remarks/Hospital Course 04/24: Wilfrido Fortune is a 31 year old male with past medical history of chronic respiratory failure s/p tracheostomy 4 years ago, super morbid obesity (BMI 68) , atrial fibrillation and pulmonary embolism on Xarelto, COPD, CHF and h/o HTN. Patient presented from [facility] with low oxygen saturation apparently his oxygen saturation was 82% on RA. He was placed back on 6L of oxygen via his trach mask and given a breathing treatment, initially improved however he started drifting back to low 80s again. Apparently patient had been getting treatment for pneumonia at the rehabilitation facility. In the ER chest x-ray showed bibasilar infiltrates and pulmonary edema. Patient was admitted to the [facility] service and was started on IV steroids IV vancomycin and Zosyn and Levaquin for healthcare associated pneumonia. ABG after admission was pH of 7.42 PCO2 of 61 and PO2 55. Repeat ABG at 5 PM showed pH of 7.26 PCO2 of 85 and PO2 of 70 and patient was started on BiPAP by the [facility]. ABG at 10:15 showed worsening CO2 retention with pH 7.16 PCO2 108 and PO2 of 98. At that time critical care medicine was consulted After receiving the consult, Dr. Zelaya immediately ordered placement on for full mechanical ventilatory support and starting sedation for ventilator synchrony. Dr. Zelaya evaluated the patient in ICU. After starting ACV, patient was more awake but there was a significant amount of air leak around his tracheostomy. Patient has a Shiley 6.0 Proximal XLT, but the supervising airplane pilot balloon had been cut off. Vent settings changed from ACV to pressure control with inspiratory pressure of 25, which improved the tidal volume he was receiving. General surgery consulted for trach exchange in a.m. Solu-Medrol increased to 60 mg IV every 6 hours after 125 mg bolus. Additional 2 mg IV Bumex had been ordered. Scheduled and when necessary breathing treatment ordered. 04/25: Patient remains on mechanical ventilation via tracheostomy. Discussed with Dr. Dannie arrieta from general surgery. He inflated air in the cuff using a Seldinger needle and then applied a hemostat with which cuff appeared to stay inflated and patient started volume improved. He plans to change out tracheostomy once patient is a little more stable in the next 24-48 hours in the OR. 04/26: Afebrile. Tracheostomy cuff remains inflated, with hemostat secured. Tidal volumes greater than 400 cc. Patient continues on fentanyl and propofol infusions, with a RASS score of 0. Patient complains of discomfort in bed, requesting larger more comfortable bed. FiO2 decreased to 80% this a.m., with close monitoring to be trended with O2 sat of 94% discussion with Dr. Arrieta this a.m.. The patient is still too unstable secondary to respiratory insufficiency to go to the OR today, will begin therapeutic anticoagulation today secondary to history of PE and other risk factors. 04/27: Afebrile. Tmax 97.6. Overnight the patient required increasing O2 concentrations. Patient's trach cuff required reinflation 2 overnight, maintaining volumes 400-500 cc per breath. The patient's FiO2 currently is 1.0 , O2 sat 94-96%. The patient received PICC line yesterday secondary to difficult IV access and nutrition requirements, will begin PPN tonight. The patient remains optimally sedated for ventilator's synchrony, and minimization of agitation. Currently requirements include propofol Versed and fentanyl infusions. 04/28: Tmax 98.7. The patient still requires and increasing O2 concentrations, Flolan initiated last night FiO2 was significantly decreased to 60% ,however this a.m. patient's O2 sat remained mid 80s with a requirement of increasing PEEP to 11 and FiO2 return to 100% currently aggressively utilizing recruitment maneuvers to decrease O2 and PEEP requirements for transfer to the OR tomorrow for exchange of tracheostomy apparatus. The patient continues to be sedated for patient safety and ventilator synchrony. 04/29:Tmax 100.0. Overnight the patient was diuresed approximately 5 L. The patient continues on a Lasix infusion. The FiO2 was significantly decrease post diuresis to 0.65, the patient continues on a PEEP of 12 with O2 saturations 93-94%. Successful placement of Dobbhoff tube, early this a.m. we' ll begin tube feeds this a.m. and discontinue PPN. General Surgery contacted this a.m. regarding tracheostomy exchange for scheduled time. Patient's Lovenox is held for OR, will place on heparin infusion, procedures time is scheduled for later today. The patient continues to be on sedation for safety to prevent dislodgment out tracheostomy tube. Radiological imaging studies reveal a loop and PICC line, will reconsult PICC team. 04/30: Afebrile. It is felt at this time by General Surgery, that the airway is secure as evidenced by lung volumes have been maintained for the last 3 days., Will attempt to repair supervising airplane pilot balloon, if unsuccessful in attempts at repairing supervising airplane pilot balloon, general surgery would consider exchanging the Shiley 60 XLT trach on an elective basis,when the patient was no longer critically ill. It is felt at this time, if tracheostomy was exchanged at this point in time the risks outweigh the benefit, and could result and possible . Attempts were made to decrease the PEEP to 8 , this afternoon and within an half an hour, the patient went into jacques pulmonary edema, copious pink frothy some sputum was noted to be emanating from the tracheostomy tube. O2 sat saturations dropped into the 60s,acutely. The patient was bolused with 80 mg of Lasix and 500 mg of Diamox and the PEEP was increased to 12. The patient's oxygenation improved with manual Ambu bag being and the PEEP of 12. The PICC line was power flushed early this morning repeat x-ray revealed the loop and line resolved, no resistance noted. 05/01: Tmax 101.0. The patient remains sedated fentanyl and propofol infusion. Pulmonary edema resolved, last evening. The patient continues on Lasix infusion , for continued diuresis. The patient has been able to maintain a O2 saturation of 94%, with FiO2 of 0.80 and PEEP of 12. Specialty bed ordered, due to patient's immobility and body habitus, plans to transfer patient to specialty bed with close control and monitoring of tracheostomy. 05/02: Tmax 100.3. The patient was transferred to a specialty bed yesterday . Today, the patient became acutely hypoxemic with a large cuff leak, unable to transition with previous methods of inflating balloon. O2 sat 80s with PEEP of 14, FIO2 100% Dr. Macias, Dr. Arrieta present. Anesthesia notified for back up, Dr. Magdaleno Walton Anesthesiologist, and myself at bedside. Glidescope intubation performed, Mallampati grade 2 noted upon visualization. O2 sat 90%, 6.[address] exchange by Dr[address] Corbett. Bilateral breath sounds equal, distant. Copious pink frothy fluid emanating from trach consistent with continuous pulmonary edema. Lung recruitment approximately 4 hours from O2 sat 87% to obtain O2 sat of 92. Today patient noted to have diuretic resistance, additional diuretics provided. Family updated on above events. 05/03: Tmax 101.5. FiO2 remains at 90%. Urine output excellent more than 8 L on Lasix infusion. Patient is status post emergency trach exchange at bedside by Dr. Macias, due to acute hypoxemia and large cuff leak (notes from yesterday reviewed). Condition remains critical 05/04: Remains critically ill. Tmax 102. Urine output approximately 8 L on Lasix infusion but bicarbonate climbing. Start on Diamox for 3 days and DC Lasix gtt, start Bumex 2 mg IV q6. Objective Vital Signs Date Time Temp Pulse Resp B/P Pulse Ox O2 Delivery O2 Flow Rate FiO2 05/04/16 12:00 78 05/04/16 12:00 100.4 18 108/61 90 05/04/16 12:00 60 Intake and Output 05/03/16 05/03/16 05/04/16 08:00 16:00 00:00 Intake Total 949 ml 1895 ml 1510 ml Output Total 3450 ml 3275 ml 2800 ml Balance -2501 ml -1380 ml -1290 ml Result Diagram: 05/04/16 0540 05/04/16 0540 Other Results Microbiology Date/Time Procedure Status Source Growth 05/01/16 18:40 Urine Culture - Final Complete Urine Clean Catch Dionne Albicans Imaging Last 24 hours Impressions Chest X-Ray 05/01/16 06 Signed Impressions: Service Date/Time: Sunday, May 01, 2016 02:11 - CONCLUSION: Overall image quality is limited due to patient body habitus. Again suspected the bilateral lower lung infiltrates. Jeremiah Tuttle MD Last 24 hours Impressions Chest X-Ray 04/29/16 06 Signed Impressions: Service Date/Time: Friday, April 29, 2016 03:30 - CONCLUSION: 1. Stable bibasilar consolidative infiltrates. 2. Some coiling of the PICC line since prior exam with the tip of the PIC line now at the level of the origin of the superior vena cava. Jeremiah Tuttle MD Abdomen X-Ray 04/29/16 0000 Signed Impressions: Service Date/Time: Friday, April 29, 2016 07:12 - CONCLUSION: Suspect Dobbhoff tube in the distal stomach. Garcia Lujan MD Last 24 hours Impressions Chest X-Ray 04/27/16 0600 Signed Impressions: Service Date/Time: Wednesday, April 27, 2016 03:51 - CONCLUSION: 1. Tracheostomy tube in place. No pneumothorax. 2. Pulmonary venous congestion with some bibasilar infiltrates. Lázaro Frankel MD Objective Remarks GENERAL: Lying in bed, on mech vent via trach in situ, sedated due to severe hypoxia, but opens eyes SKIN: Warm and dry. HEAD: Normocephalic. Atraumatic. EYES: PERRL. No scleral icterus. No injection or drainage. ENT: No nasal drainage. Oral and nasal mucosa moist NECK: Shiley 6.0 Proximal XLT, (new trach placed 05/02/16) CARDIOVASCULAR: Regular rate and rhythm without murmurs, gallops, or rubs. Distant heart sounds RESPIRATORY: On mechanical ventilation via tracheostomy. Air entry decreased bilaterally at bases. No wheezing, diminished throughout bilaterally. GASTROINTESTINAL: Abdomen soft, non-tender, obese, normal BS. Tube feeds infusing. NEURO: RASS -2 on mechanical ventilation, on fentanyl, Versed and propofol infusion, to maintain ventilator synchrony. Opens eyes weakly follows commands Procedures Shiley 6.0 XLT tracheostomy exchange under visual direction by general surgery and with GlideScope, by anesthesiologist. Urinary Catheter: Yes Assessment to: Continue Date of Insertion: Apr 24, 2016 Vascular Central Line Catheter: Yes Date of Insertion: Apr 26, 2016 Line: PICC Side: Right A/P Assessment and Plan ASSESSMENT Acute hypercapnic and hypoxemic respiratory failure Healthcare associated pneumonia Sepsis/persistent fever CHF exacerbation CO2 narcosis Tracheostomy supervising airplane pilot balloon damage -status post exchange with new Shiley 6.0 Proximal XLT 05/02/16) Chronic Respiratory Failure s/p Tracheostomy 4 years ago (Shiley 6.0 Proximal XLT) COPD/obesity hypoventilation syndrome Morbid Obesity BMI 67 History of pulmonary embolism 4 years ago Chronic atrial fibrillation Anxiety CHF (Echo 2013 EF 40-45%; ECHO 08/2015 showing a grossly normal systolic function) Hypertension Hypothyroidism PLAN NEURO: CO2 narcosis Anxiety -Maintain optimal sedation, with RASS -2, due to severe hypoxemic respiratory failure for absolute ventilator synchrony. -Continue Propofol , Versed and Fentanyl. -Sedation vacation if tolerated without hypoxia RESP: Acute hypercapnic and hypoxemic respiratory failure Healthcare associated pneumonia Tracheostomy supervising airplane pilot balloon damage (Shiley 6.0 Proximal XLT) s/p new trach placement 05/02 Chronic Respiratory Failure s/p Tracheostomy 4 years ago COPD/obesity hypoventilation syndrome History of pulmonary embolism 4 years ago Leukocytosis Pulmonary edema -Continue mechanical ventilation PRVC TV 650 iT 1.5, PEEP 16 FiO2 .60, Titrate to keep SaO2 >88% -Flolan initiated 04/27 at maximum doses 50 ng -Healthcare associated pneumonia (MDRO) is being treated with IV Vancomycin, Zerbaxa and Colistin nebs, ID following -Sputum culture revealed Pseudomonas MDR -DuoNeb every 4 hours scheduled -Pulmicort BID (home med) -Continue IV Solu-Medrol to 60 mg every 6 hour -Therapeutic Lovenox 150 mg every 12 hours -Chest x-ray bibasilar infiltrates unchanged CV: CHF exacerbation Pulmonary edema Chronic atrial fibrillation -Lasix infusion 10 mg per hour-DC today 05/04 and start Bumex 2 mg IV every 6 hours. -Diamox final milligram IV daily for 3 days starting 05/04 -Metolazone 5 mg po daily -A. fib rate controlled -Therapeutic Lovenox 150 mg twice a day GI: Super morbid obesity with BMI of 68 -Tube feeds Glucerna 30/hr -IV Protonix IV -SSI per ICU protocol : -BMP every 6 hours monitor potassium, phosphorus and magnesium closely -Scheduled doses potassium 80 mg , 4 times a day -Monitor renal function closely. -Diuretic resistance . see new orders under CV -Milan catheter -Change today -Urine culture revealed Dionne-, Fluconazole (Day 1) -Strict I&O ID: Healthcare associated pneumonia Sepsis MDRO Possible cellulitis right arm and fast Leukocytosis Recurrent fever -Continue IV vancomycin, Zebaxa (Day 5 )and Fluconazole (Day 3). Continue colistin nebs -Blood urine and blood culture NGTD. Repeat blood and urine culture today -Wound culture Pseudomonas MDR -Sputum culture-Pseudomonas MDR-colistin inhalation -ID consulted, follow-up recommendations -Blood and urine cx neg on 05/03. Send sputum culture HEME: History of PE on chronic anticoagulation with Xarelto Leukocytosis -Monitor CBC, CMP, coags -Xarelto for PE 4 yrs ago. -Hold Xarelto. -Changed to Lovenox 150 mg twice a day ENDO: Hypothyroidism -Electrolyte replacement protocol -Continue levothyroxine 25 mcgs IV daily PROPH: -Bilateral lower extremity SCDs. Lovenox DVT prophylaxis. IV Protonix for GI prophylaxis LINES: - PICC line (day 9) RUE No DVT on US This patient remains critically ill with one or more organ systems which are or may become a threat to life. I have spent in excess of 40 minutes discontinuously in the care and management of this patient. This time is exclusive of procedures, and includes, but is not limited to, evaluation of the patient, review of the medical record, discussions with family, consultants, nursing staff, or respiratory therapy, and documentation in the medical record. Discussed with RN at bedside. The patient mother was notified of all above events by Dr. Morgan, and guarded prognosis. Jaquan Zelaya MD May 04, 2016 14:23
--- NOTE | 2016-05-04 15:45 | HHI.IDPN ---
Subjective Subjective Remarks ID Xcover for Dr Tam Pt known to me from prior admissions. Now being followed by ID for MDR PSAE on Zerbaxa, C.albicans UTI. Morbidly obese male with chronic resp failure, chronic trach Notes reviewed Overnight events d/w RN Had problems with trach later part of this week and had emergent revision of his trach at bedside Vent settings no major change overnight Febrile to 102.8 Sedated on the vent per RN redness on his R chest and R arm has improved BP ok off pressors Sputum with MDR PSAE, S to Zerbaxa Antibiotics Zerbaxa IV Vanco IV Colistin nebs Diflucan IV Lines PICC RUE Past Medical History Chronic Respiratory Failure s/p Tracheostomy 4 years ago Morbid Obesity w/ BMI 67.6 Atrial fibrillation Pulmonary embolism 4 years ago Anxiety CHF (Echo 06/07/2014 w/ EF 40-45%; ECHO 08/2015 showing a grossly normal systolic function) HTN Hypothyroidism Past Surgical History Tracheostomy Tonsillectomy Allergies: Coded Allergies: No Known Allergies (Unverified , 09/16/15) Objective . Vital Signs Date Time Temp Pulse Resp B/P Pulse Ox O2 Delivery O2 Flow Rate FiO2 05/04/16 14:14 90 60 05/04/16 14:00 79 05/04/16 12:00 78 05/04/16 12:00 100.4 78 18 108/61 90 05/04/16 12:00 60 05/04/16 11:00 91 60 05/04/16 10:06 18 05/04/16 10:00 100 05/04/16 08:13 91 60 05/04/16 08:00 102.0 80 18 108/60 91 05/04/16 08:00 80 05/04/16 08:00 60 05/04/16 06:00 80 05/04/16 04:00 60 05/04/16 04:00 80 05/04/16 04:00 98.1 82 18 110/59 91 05/04/16 03:54 92 60 05/04/16 02:00 80 05/04/16 01:03 91 70 05/04/16 00:00 60 05/04/16 00:00 98.2 81 18 128/67 94 05/04/16 00:00 80 05/03/16 22:00 83 05/03/16 20:00 80 05/03/16 20:00 98.7 82 18 124/66 92 05/03/16 20:00 60 05/03/16 19:51 92 60 05/03/16 18:00 80 05/03/16 17:32 93 60 05/03/16 16:00 76 05/03/16 16:00 60 05/03/16 16:00 99.5 76 19 116/64 92 05/03/16 05/03/16 05/04/16 15:00 23:00 07:00 Intake Total 1895 ml 1510 ml 1112 ml Output Total 3275 ml 2800 ml 2050 ml Balance -1380 ml -1290 ml -938 ml IV Total 1365 ml 1225 ml 962 ml Tube Feeding 530 ml 285 ml 150 ml Output Urine Total 3275 ml 2800 ml 2050 ml # Bowel Movements 0 0 0 . Laboratory Tests Test 05/03/16 05/04/16 04:00 05:40 White Blood Count 14.9 TH/MM3 15.1 TH/MM3 Red Blood Count 5.02 MIL/MM3 4.63 MIL/MM3 Hemoglobin 11.5 GM/DL 11.5 GM/DL Hematocrit 37.0 % 34.9 % Mean Corpuscular Volume 73.8 FL 75.4 FL Mean Corpuscular Hemoglobin 22.9 PG 24.8 PG Mean Corpuscular Hemoglobin 31.1 % 32.9 % Concent Red Cell Distribution Width 19.1 % 19.1 % Platelet Count 200 TH/MM3 207 TH/MM3 Mean Platelet Volume 8.0 FL 9.5 FL Neutrophils (%) (Auto) 93.0 % 91.7 % Lymphocytes (%) (Auto) 2.9 % 3.9 % Monocytes (%) (Auto) 4.0 % 4.2 % Eosinophils (%) (Auto) 0.0 % 0.0 % Basophils (%) (Auto) 0.1 % 0.2 % Neutrophils # (Auto) 13.9 TH/MM3 13.8 TH/MM3 Lymphocytes # (Auto) 0.4 TH/MM3 0.6 TH/MM3 Monocytes # (Auto) 0.6 TH/MM3 0.6 TH/MM3 Eosinophils # (Auto) 0.0 TH/MM3 0.0 TH/MM3 Basophils # (Auto) 0.0 TH/MM3 0.0 TH/MM3 CBC Comment AUTO DIFF AUTO DIFF Differential Comment AUTO DIFF AUTO DIFF CONFIRMED CONFIRMED Laboratory Tests Test 05/02/16 05/02/16 05/03/16 05/03/16 16:48 23:10 04:00 12:20 Potassium Level 3.4 MEQ/L 3.3 MEQ/L 3.2 MEQ/L 3.9 MEQ/L Sodium Level 140 MEQ/L 142 MEQ/L 144 MEQ/L Chloride Level 94 MEQ/L 94 MEQ/L 96 MEQ/L Carbon Dioxide Level 39.4 MEQ/L 39.3 MEQ/L 41.7 MEQ/L Anion Gap 7 MEQ/L 9 MEQ/L 6 MEQ/L Blood Urea Nitrogen 25 MG/DL 27 MG/DL 32 MG/DL Creatinine 1.02 MG/DL 0.95 MG/DL 0.98 MG/DL Estimat Glomerular Filtration 85 ML/MIN 92 ML/MIN 89 ML/MIN Rate Random Glucose 140 MG/DL 145 MG/DL 149 MG/DL Calcium Level 8.5 MG/DL 9.3 MG/DL 9.1 MG/DL Magnesium Level 2.6 MG/DL Test 05/03/16 05/04/16 22:40 05:40 Sodium Level 134 MEQ/L 136 MEQ/L Potassium Level 3.3 MEQ/L 3.4 MEQ/L Chloride Level 88 MEQ/L 88 MEQ/L Carbon Dioxide Level 39.7 MEQ/L 43.7 MEQ/L Anion Gap 6 MEQ/L 4 MEQ/L Blood Urea Nitrogen 35 MG/DL 39 MG/DL Creatinine 0.99 MG/DL 0.93 MG/DL Estimat Glomerular Filtration 88 ML/MIN 94 ML/MIN Rate Random Glucose 199 MG/DL 196 MG/DL Calcium Level 7.8 MG/DL 7.9 MG/DL Microbiology Date/Time Procedure Status Source Growth 05/01/16 18:40 Urine Culture - Final Complete Urine Clean Catch Dionne Albicans 05/03/16 06:40 Urine Culture - Preliminary Resulted Urine Catheterized Urine NO GROWTH IN 24 HOURS. 05/03/16 09:50 Aerobic Blood Culture - Preliminary Resulted Blood Peripheral NO GROWTH IN 1 DAY 05/03/16 09:50 Anaerobic Blood Culture - Preliminary Resulted Blood Peripheral NO GROWTH IN 1 DAY 05/03/16 09:56 Aerobic Blood Culture - Preliminary Resulted Blood Peripheral NO GROWTH IN 1 DAY 05/03/16 09:56 Anaerobic Blood Culture - Preliminary Resulted Blood Peripheral NO GROWTH IN 1 DAY Imaging Last Impressions Chest X-Ray 05/03/16 0000 Signed Impressions: Service Date/Time: Tuesday, May 03, 2016 06:40 - CONCLUSION: Increasing bilateral diffuse pulmonary infiltrates compared to the prior study. Lázaro Frankel MD Upper Extremity Ultrasound 05/02/16 0000 Signed Impressions: Service Date/Time: April 20:51 - CONCLUSION: No DVT. Garcia Lujan MD Abdomen X-Ray 04/29/16 0000 Signed Impressions: Service Date/Time: Friday, April 29, 2016 07:12 - CONCLUSION: Suspect Dobbhoff tube in the distal stomach. Garcia Lujan MD Physical Exam GENERAL: This is a morbidly obese male, sedated, on the vent, not in distress. SKIN: Warm and moist. Generalized rash. No cyanosis noted. HEAD: Atraumatic. Normocephalic. No temporal or scalp tenderness. EYES: [place] conjunctivae. Pupils equal round and reactive. No scleral icterus. Has mild conjunctival injection bilaterally. ENT: Nose without purulent drainage. Moist mucosa. Has a lot of oral secretions. NECK: Short and obese, has new trach, site ok. Supple, no meningeal signs. CARDIOVASCULAR: Regular rate and rhythm without murmurs, gallops, or rubs. Distant heart sounds. There is an area of erythema with heat on his R shoulder and goes to his R breast, as well as redness in his R upper arm above his PICC RESPIRATORY: Decreased BS bilaterally. GASTROINTESTINAL: Abdomen soft, morbidly obese, no reaction to palpation, not distended. Bowel sounds presentr and hypoactive. MUSCULOSKELETAL: Extremities without clubbing, cyanosis. Has mild pitting edema. NEUROLOGICAL: Sedated PSYCH: Unable to assess LINE: PICC in RUE, site ok, but has that area of redness going up the arm, no palpable cord : Willard in place, urine looks clear Assessment & Plan Remarks IMPRESSION Chronic respiratory failure, has trach, has HCAP - C/S with MDR PSAE MDR PSAE PNA, now ? new HCAP vs component of fluid overload. Fevers higher, ?new infection vs drug fever. Leukocytosis, due to PNA, and partly due to steroids Has an area of cellulitis in his RUEm and R chest, ?from PICC Morbid obesity Hx PE Candiduria, UA only with 18 WBC, likely colonization RECOMMENDATION Continue Zerbaxa IV. Follow Cx to adjust regimen. Continue colistin nebs Continue Vanco IV (if no e/o bacteremia would prefer to switch to Zyvox or Teflaro IV as patient is obese and dosing is difficult for vanco IV and volume of distribution affected by BMI) Continue Diflucan IV Would like to avoid Dapto as patient has PNA due to surfactant effect. Blood culture from PICC line x 1. If fevers persist will likely need PICC line removed. Will reassess in am. If fevers persist will change willard and get repeat UA from new willard. If overnight worsening sepsis, change Diflucan to Micafungin. Give 1 dose of Zyvox (better for lung in obese patients, but does not cover bacteremia effectively) Monitor progress Follow CBC, follow clinically. D/W RN Dr Land covering this weekend Margo Land MD May 04, 2016 15:45 Margo Land MD May 04, 2016 15:45
[2016-05-04] MEDS: FLUCONAZOLE 400 MG PREMIX BAG 200 ML IV SCH (17:29)
[2016-05-04] MEDS: BUMETANIDE INJ 1 MG/4 ML VIAL IV PUSH SCH (17:30)
[2016-05-05] VITALS (19 sets, daily range): BP systolic 100–127; BP diastolic 59–72; PULSE 57–85; RESP 18–19; TEMP 97.5–99.1; O2SAT 90–97
[2016-05-05] MEDS: RESP: COLISTIN 150 MG VIAL NEB SCH ×4 (00:24→22:31)
[2016-05-05] MEDS: PANTOPRAZOLE SODIUM 40 MG VIAL IV PUSH SCH ×2 (02:26→16:43)
--- NOTE | 2016-05-05 03:33 | RADRPT ---
EXAM DATE/TIME: 05/05/2016 01:56 [place] COMPARISON: CHEST SINGLE AP, May 03, 2016, 6:40. CHEST SINGLE AP, May 01, 2016, 2:11. INDICATIONS : Shortness of breath, possible pulmonary disease. MEDICAL HISTORY : Hypertension. Hypercholesterolemia. Congestive heart failure. A-Fib PE SURGICAL HISTORY : Tonsillectomy. Tracheostomy ENCOUNTER: Subsequent ACUITY: 3 months PAIN SCORE: Non-responsive. LOCATION: Bilateral chest FINDINGS: A single view of the chest demonstrates the tracheostomy tube is in good position. Right-sided PICC l ine extends into the lower right neck. Bilateral perihilar vascular congestion with small lung volume s. Improved aeration of the left lung Osseous structures are intact. CONCLUSION: Improved aeration bilaterally particularly in the left upper lobe. Tube and catheter are stable. Amador Brock MD on May 05, 2016 at 3:30 Board Certified Radiologist. This report was verified electronically.
[2016-05-05] MEDS: PROPOFOL 1000 MG/100 ML INJ 100 ML IV SCH ×6 (04:20→22:29)
[2016-05-05] MEDS: fentaNYL DRIP 250 ML IV SCH ×2 (04:20→17:32)
[2016-05-05] MEDS: MIDAZOLAM 100 MG/NS 100 ML DRIP Premix IV SCH ×2 (04:21→17:33)
[2016-05-05] MEDS: RESP: ALBUTEROL 2.5 MG/IPRATROPIUM 0.5 MG NEB (SCH) NEB ×4 (04:22→20:33)
[2016-05-05] MEDS: CEFTOLOZANE-TAZOBACTAM INJ 1,500 MG in SODIUM CHLORIDE 0.9% INJ 100 ML IV SCH ×3 (04:33→22:29)
[2016-05-05] MEDS: BUMETANIDE INJ 1 MG/4 ML VIAL IV PUSH SCH ×5 (04:35→22:29)
[2016-05-05] MEDS: ENOXAPARIN SODIUM 150 MG/ML SYRINGE SQ SCH ×2 (04:35→16:44)
[2016-05-05] MEDS: POTASSIUM CHLORIDE 20 MEQ PWD PACKET NG SCH ×4 (04:36→22:29)
[2016-05-05 04:39] LABS: AUTOMATED NEUTROPHIL # 16.1 TH/MM3 (1.8-7.7); BASOPHIL % 0.1 % (0.0-2.0); LYMPH % 5.3 % (9.0-44.0); LYMPHOCYTE # 0.9 TH/MM3 (1.0-4.8); MEAN CELL VOLUME 75.2 FL (80.0-100.0); MEAN CORPUSCULAR HEMOGLOBIN 23.2 PG (27.0-34.0); MEAN CORPUSCULAR HGB CONC 30.9 % (32.0-36.0); MONO % 3.5 % (0.0-8.0); NEUT % 91.1 % (16.0-70.0); PLATELET COUNT 242 TH/MM3 (150-450); RED BLOOD COUNT 4.92 MIL/MM3 (4.50-5.90); RED CELL DISTRIBUTION WIDTH 19.4 % (11.6-17.2); WHITE BLOOD COUNT 17.7 TH/MM3 (4.0-11.0)
[2016-05-05 04:41] LABS: HEMO FLAGS AUTO DIFF
[2016-05-05 05:03] LABS: ALKALINE PHOSPHATASE 52 U/L (45-117); ALT (GPT) 25 U/L (12-78); ANION GAP 6 MEQ/L (5-15); AST (GOT) 14 U/L (15-37); BICARBONATE 40.4 MEQ/L (21.0-32.0); BLOOD UREA NITROGEN 50 MG/DL (7-18); CHLORIDE 98 MEQ/L (98-107); GLOMERULAR FILTRATION RATE 91 ML/MIN (>89); MAGNESIUM 2.5 MG/DL (1.5-2.5); POTASSIUM 3.3 MEQ/L (3.5-5.1); SODIUM (NA) 144 MEQ/L (136-145); TOTAL BILIRUBIN ADULT 0.7 MG/DL (0.2-1.0)
[2016-05-05] MEDS: methylPREDNISolone SOD SUCC 40 MG/1 ML VIAL IV PUSH SCH ×4 (05:42→16:44)
[2016-05-05] MEDS: LEVOTHYROXINE SODIUM 100 MCG VIAL IV PUSH SCH (05:42)
[2016-05-05] MEDS: ATORVASTATIN 10 MG TAB PO SCH (08:31)
[2016-05-05] MEDS: FENOFIBRATE 48 MG TAB PO SCH (08:31)
[2016-05-05] MEDS: ALLOPURINOL 300 MG TAB PO SCH (08:31)
[2016-05-05] MEDS: METOLAZONE 5 MG TAB NG SCH (08:31)
[2016-05-05] MEDS: MONTELUKAST SODIUM 10 MG TAB PO SCH (08:32)
[2016-05-05] MEDS: POTASSIUM CL 40 MEQ/30 ML LIQ UDC PO/TUBE PRN (08:32)
[2016-05-05] MEDS: CHLORHEXIDINE 0.12% (ORAL KIT) 15 ML CUP MT SCH ×2 (08:32→20:00)
[2016-05-05] MEDS: SODIUM CHLORIDE 0.9% FLUSH 5 ML FLUSH FLUSH SCH ×2 (08:32→21:00)
[2016-05-05] MEDS: MICONAZOLE NITRATE 2% CREAM 15 GM TOP SCH ×2 (08:33→21:00)
[2016-05-05] MEDS: RESP: BUDESONIDE 0.5 MG/2 ML NEB NEB SCH ×2 (08:39→20:32)
[2016-05-05 09:13] LABS: SCAN/DIFF AUTO DIFF CONFIRMED
[2016-05-05] MEDS: EPOPROSTENOL NEB SOLUTION 50 NG/KG/MIN 100 ML NEB SCH ×6 (09:37→12:00)
[2016-05-05 09:45] LABS: BACTERIA, URINE FEW /hpf; BLOOD, URINE SMALL (NEG); COMMENT (UR) CULTURE INDICATED; CULTURE IF INDICATED CULTURE INDICATED; GLUCOSE,URINE NEG (NEG); HYALINE CAST, URINE 2 /lpf (RARE); KETONE, URINE NEG (NEG); MUCUS URINE FEW /lpf (OCC); NITRITE,URINE NEG (NEG); SQUAMOUS EPITHELIAL CELL URINE 15 /hpf (0-5); TRANSITIONAL EPI CELLS, URINE 4 /hpf; URINE COLOR YELLOW (YELLW/STRAW)
--- NOTE | 2016-05-05 11:43 | HHI.FPPN ---
Subjective Remarks Temp of 102F yesterday AM. No fevers overnight. Vitals are stable. 6600 mL of UOP. Vent settings on 60% FiO2 with PEEP of 16. (Brandon Canales MD R1) Objective Vitals Vital Signs Date Time Temp Pulse Resp B/P Pulse Ox O2 Delivery O2 Flow Rate FiO2 05/05/16 10:00 67 05/05/16 08:40 93 60 05/05/16 08:00 57 05/05/16 08:00 60 05/05/16 08:00 98.6 57 19 122/67 93 05/05/16 06:00 65 05/05/16 04:22 94 60 05/05/16 04:00 62 05/05/16 04:00 60 05/05/16 04:00 98.3 62 18 121/66 97 05/05/16 02:00 79 05/05/16 00:20 93 60 05/05/16 00:00 60 05/05/16 00:00 99.0 68 18 117/65 93 05/05/16 00:00 68 05/04/16 22:00 66 05/04/16 20:00 71 05/04/16 20:00 60 05/04/16 20:00 98.1 71 18 118/67 91 05/04/16 19:50 91 60 05/04/16 18:00 72 05/04/16 16:53 90 60 05/04/16 16:00 89 05/04/16 16:00 60 05/04/16 16:00 100.1 89 18 114/70 89 05/04/16 14:14 90 60 05/04/16 14:00 79 05/04/16 12:00 78 05/04/16 12:00 100.4 78 18 108/61 90 05/04/16 12:00 60 I/O 05/04/16 05/04/16 05/04/16 05/05/16 05/05/16 05/05/16 07:00 15:00 23:00 07:00 15:00 23:00 Intake Total 1112 ml 2024 ml 1200 ml 745 ml Output Total 2050 ml 2150 ml 2000 ml 2450 ml Balance -938 ml -126 ml -800 ml -1705 ml IV Total 962 ml 1471 ml 906 ml 496 ml Tube Feeding 150 ml 313 ml 244 ml 199 ml Tube Irrigant 240 ml 50 ml 50 ml Output Urine Total 2050 ml 2150 ml 2000 ml 2450 ml # Bowel Movements 0 0 0 0 (Brandon Canales MD R1) Result Diagram: 05/05/1639905/05/16399 Objective Remarks GENERAL: Sedated in bed, on mechanical ventilation, NG tube in place. SKIN: Warm and dry. No rashes or lesions. HEAD: Normocephalic. Atraumatic. ENT: No nasal drainage. Tracheotomy site is clean and dry without drainage. NECK: No JVD. CARDIOVASCULAR: Distant heart sounds. Regular rate and rhythm without murmurs, gallops, or rubs. Peripheral pulses 2+. RESPIRATORY: On mechanical ventilation. Clear to auscultation bilaterally. No rales or rhonchi. GASTROINTESTINAL: Abdomen soft, obese, hypoactive BS. Unable to assess for organomegaly or masses. MUSCULOSKELETAL: Lower extremity edema improved from prior examination. NEURO: Sedated. (Brandon Canales MD R1) Date of Insertion: Apr 24, 2016 (Brandon Canales MD R1) Date of Insertion: Apr 26, 2016 Line: PICC Side: Right (Brandon Canales MD R1) A/P Assessment and Plan 31 year old male with a PMH of chronic respiratory failure s/p tracheostomy 4 years ago, morbid obesity with BMI 67.6, atrial fibrillation and pulmonary embolism on Xarelto, CHF, and h/o HTN in long-term rehab at [facility] presented to the ED after having low oxygen saturation at 82% on RA. He was admitted for shortness of breath likely secondary to a combination of HCAP, COPD exacerbation and CHF exacerbation. He is currently in acute respiratory failure, on mechanical ventilation in the intensive care unit and being managed by critical care. Discharge Planning Unclear timetable at this time. Patient will need to be weaned from mech vent with stable clinical status. Hopeful for patient to be able to return to long- term rehab facility. (Brandon Canales MD R1) Attending Attestation Patient seen and examined. Case reviewed and discussed Agree with plan of care as discussed with me and documented in the resident note. (Bernice Garcia MD) Problem List: (1) On mechanically assisted ventilation Status: Acute Plan: Critical care actively managing acute hypercapnic and hypoxemic respiratory failure and HCAP at this time Patient placed on mechanical ventilation on 04/24, FiO2 now 60% with PEEP 16 S/p urgent/emergent trach exchange 05/02 due to acute hypoxemia and large cuff leak Continue Solumedrol 60 mg IV q6h (2) HCAP (healthcare-associated pneumonia) Status: Acute Plan: Febrile up to 102 Leukocytosis 17.7 this AM Repeat ABG on 04/26 showed improvement with CO2 56 with pH 7.40 05/01 BCXs no growth in 3 days 05/03 BCx no growth in 1 day 05/04 BCx no growth after 1 day CXR 04/29 showing stable bibasilar consolidative infiltrates 04/30 CXR shows bilateral airspace disease greater in the right lower lobe 05/05 CXR showing improved aeration bilaterally 04/27 Sputum culture growing resistant pseudomonas 05/04 repeat sputum culture pending Zosyn 4.5gm IV q6h (04/24 - dced 04/29), Levaquin 750mg IV q24h (04/24-04/30) - Infectious Disease consulted- started Zerbaxa 1.5g IV Q8H for pseudomonas coverage * Continue Vancomycin 2gm IV q18h * Colistin nebs * Diflucan q24h - Duonebs q2h (3) Yeast UTI Status: Acute Plan: 05/01 Urine CX growing heather albicans 05/05 repeat UA with large LE, negative nitrite, 182 WBCs; culture pending Continue Diflucan 400 mg IV q24h (4) CHF (congestive heart failure) Status: Chronic Plan: Last ECHO 09/18/2015 showing a grossly normal systolic function with no definitive EF as it was difficult to assess, ECHO on 05/2014 with EF of 40-45% with mildly dilated left atrium 04/25 ECHO was limited due to poor image quality, EF could not be adequately estimated. Systolic function appears to be grossly normal. BNP on admission 419, repeat BNP 151 Critical care actively managing diuresis - Lasix drip discontinued - Bumex 2 mg IV q6h - Diamox for 3 days (5) Atrial fibrillation Status: Chronic Plan: Last EKG in sinus rhythm RRR on exam Home dose of Xarelto 20 mg po daily has been held in anticipation of possible surgery. Currently on Lovenox 150mg SQ Q12H. (6) Tracheostomy present Status: Chronic Plan: S/p urgent/emergent trach exchange 05/02 due to acute hypoxemia and large cuff leak Has been stable since procedure (7) HTN (hypertension) Status: Chronic Plan: BPs stable Hold home BP medications (8) Morbid obesity with BMI of 60.0-69.9, adult Status: Chronic Plan: Likely contributing to chronic respiratory issues (9) Hypothyroidism Status: Chronic Plan: Synthroid 25 mcg IV daily (10) Nutrition, metabolism, and development symptoms Status: Acute Plan: Fluids: none Electrolytes: Monitor and replete when necessary per protocol Nutrition: NG tube, tube feeds with Glucerna 30ml/hr DVT PPx: Therapeutic Lovenox 150mg subq q12h sdw Dr. Garcia (Brandon Canales MD R1) Problem Qualifiers (1) CHF (congestive heart failure): Qualified Code: I50.9 - Acute on chronic congestive heart failure, unspecified congestive heart failure type (2) Atrial fibrillation: Qualified Code: I48.2 - Chronic atrial fibrillation (3) HTN (hypertension): Qualified Code: I10 - Essential hypertension (4) Hypothyroidism: Qualified Code: E03.9 - Hypothyroidism, unspecified type Brandon Canales MD R1 May 05, 2016 11:43 Bernice Garcia MD May 06, 2016 10:18
[2016-05-05] MEDS ORDERED: DEXTROSE 50% IN WATER 50 ML VIAL(D50) IV PUSH PRN (12:15)
[2016-05-05] MEDS ORDERED: GLUCAGON 1 MG/ML VIAL OTHER PRN (12:15)
[2016-05-05] MEDS ORDERED: PLEASE DISCONTINUE PREVIOUS SUPPLEMENTAL SCALE INSULIN ORDERS XX ONE (13:00)
--- NOTE | 2016-05-05 13:25 | HHI.CCPN ---
Subjective Remarks/Hospital Course 04/24: Wilfrido Fortune is a 31 year old male with past medical history of chronic respiratory failure s/p tracheostomy 4 years ago, super morbid obesity (BMI 68) , atrial fibrillation and pulmonary embolism on Xarelto, COPD, CHF and h/o HTN. Patient presented from [facility] with low oxygen saturation apparently his oxygen saturation was 82% on RA. He was placed back on 6L of oxygen via his trach mask and given a breathing treatment, initially improved however he started drifting back to low 80s again. Apparently patient had been getting treatment for pneumonia at the rehabilitation facility. In the ER chest x-ray showed bibasilar infiltrates and pulmonary edema. Patient was admitted to the [facility] service and was started on IV steroids IV vancomycin and Zosyn and Levaquin for healthcare associated pneumonia. ABG after admission was pH of 7.42 PCO2 of 61 and PO2 55. Repeat ABG at 5 PM showed pH of 7.26 PCO2 of 85 and PO2 of 70 and patient was started on BiPAP by the [facility]. ABG at 10:15 showed worsening CO2 retention with pH 7.16 PCO2 108 and PO2 of 98. At that time critical care medicine was consulted After receiving the consult, Dr. Zelaya immediately ordered placement on for full mechanical ventilatory support and starting sedation for ventilator synchrony. Dr. Zelaya evaluated the patient in ICU. After starting ACV, patient was more awake but there was a significant amount of air leak around his tracheostomy. Patient has a Shiley 6.0 Proximal XLT, but the airplane pilot commercial balloon had been cut off. Vent settings changed from ACV to pressure control with inspiratory pressure of 25, which improved the tidal volume he was receiving. General surgery consulted for trach exchange in a.m. Solu-Medrol increased to 60 mg IV every 6 hours after 125 mg bolus. Additional 2 mg IV Bumex had been ordered. Scheduled and when necessary breathing treatment ordered. 04/25: Patient remains on mechanical ventilation via tracheostomy. Discussed with Dr. Dannie arrieta from general surgery. He inflated air in the cuff using a Seldinger needle and then applied a hemostat with which cuff appeared to stay inflated and patient started volume improved. He plans to change out tracheostomy once patient is a little more stable in the next 24-48 hours in the OR. 04/26: Afebrile. Tracheostomy cuff remains inflated, with hemostat secured. Tidal volumes greater than 400 cc. Patient continues on fentanyl and propofol infusions, with a RASS score of 0. Patient complains of discomfort in bed, requesting larger more comfortable bed. FiO2 decreased to 80% this a.m., with close monitoring to be trended with O2 sat of 94% discussion with Dr. Arrieta this a.m.. The patient is still too unstable secondary to respiratory insufficiency to go to the OR today, will begin therapeutic anticoagulation today secondary to history of PE and other risk factors. 04/27: Afebrile. Tmax 97.6. Overnight the patient required increasing O2 concentrations. Patient's trach cuff required reinflation 2 overnight, maintaining volumes 400-500 cc per breath. The patient's FiO2 currently is 1.0 , O2 sat 94-96%. The patient received PICC line yesterday secondary to difficult IV access and nutrition requirements, will begin PPN tonight. The patient remains optimally sedated for ventilator's synchrony, and minimization of agitation. Currently requirements include propofol Versed and fentanyl infusions. 04/28: Tmax 98.7. The patient still requires and increasing O2 concentrations, Flolan initiated last night FiO2 was significantly decreased to 60% ,however this a.m. patient's O2 sat remained mid 80s with a requirement of increasing PEEP to 11 and FiO2 return to 100% currently aggressively utilizing recruitment maneuvers to decrease O2 and PEEP requirements for transfer to the OR tomorrow for exchange of tracheostomy apparatus. The patient continues to be sedated for patient safety and ventilator synchrony. 04/29:Tmax 100.0. Overnight the patient was diuresed approximately 5 L. The patient continues on a Lasix infusion. The FiO2 was significantly decrease post diuresis to 0.65, the patient continues on a PEEP of 12 with O2 saturations 93-94%. Successful placement of Dobbhoff tube, early this a.m. we' ll begin tube feeds this a.m. and discontinue PPN. General Surgery contacted this a.m. regarding tracheostomy exchange for scheduled time. Patient's Lovenox is held for OR, will place on heparin infusion, procedures time is scheduled for later today. The patient continues to be on sedation for safety to prevent dislodgment out tracheostomy tube. Radiological imaging studies reveal a loop and PICC line, will reconsult PICC team. 04/30: Afebrile. It is felt at this time by General Surgery, that the airway is secure as evidenced by lung volumes have been maintained for the last 3 days., Will attempt to repair airplane pilot commercial balloon, if unsuccessful in attempts at repairing airplane pilot commercial balloon, general surgery would consider exchanging the Shiley 60 XLT trach on an elective basis,when the patient was no longer critically ill. It is felt at this time, if tracheostomy was exchanged at this point in time the risks outweigh the benefit, and could result and possible . Attempts were made to decrease the PEEP to 8 , this afternoon and within an half an hour, the patient went into jacques pulmonary edema, copious pink frothy some sputum was noted to be emanating from the tracheostomy tube. O2 sat saturations dropped into the 60s,acutely. The patient was bolused with 80 mg of Lasix and 500 mg of Diamox and the PEEP was increased to 12. The patient's oxygenation improved with manual Ambu bag being and the PEEP of 12. The PICC line was power flushed early this morning repeat x-ray revealed the loop and line resolved, no resistance noted. 05/01: Tmax 101.0. The patient remains sedated fentanyl and propofol infusion. Pulmonary edema resolved, last evening. The patient continues on Lasix infusion , for continued diuresis. The patient has been able to maintain a O2 saturation of 94%, with FiO2 of 0.80 and PEEP of 12. Specialty bed ordered, due to patient's immobility and body habitus, plans to transfer patient to specialty bed with close control and monitoring of tracheostomy. 05/02: Tmax 100.3. The patient was transferred to a specialty bed yesterday . Today, the patient became acutely hypoxemic with a large cuff leak, unable to transition with previous methods of inflating balloon. O2 sat 80s with PEEP of 14, FIO2 100% Dr. Macias, Dr. Arrieta present. Anesthesia notified for back up, Dr. Magdaleno Walton Anesthesiologist, and myself at bedside. Glidescope intubation performed, Mallampati grade 2 noted upon visualization. O2 sat 90%, 6.[address] by Dr[address] Corbett. Bilateral breath sounds equal, distant. Copious pink frothy fluid emanating from trach consistent with continuous pulmonary edema. Lung recruitment approximately 4 hours from O2 sat 87% to obtain O2 sat of 92. Today patient noted to have diuretic resistance, additional diuretics provided. Family updated on above events. 05/03: Tmax 101.5. FiO2 remains at 90%. Urine output excellent more than 8 L on Lasix infusion. Patient is status post emergency trach exchange at bedside by Dr. Macias, due to acute hypoxemia and large cuff leak (notes from yesterday reviewed). Condition remains critical 05/04: Remains critically ill. Tmax 102. Urine output approximately 8 L on Lasix infusion but bicarbonate climbing. Start on Diamox for 3 days and DC Lasix gtt, start Bumex 2 mg IV q6. 05/05: Remains intubated sedated critically ill. Currently on FiO2 60% and PEEP of extreme Flolan at 50 ng. I will start weaning Flolan gradually. Afebrile now even though white count slightly increased to 17.7 from 15.5 yesterday. Evidence of metabolic alkalosis, decrease Bumex to 1 mg IV every 6 hours and continue Diamox Objective Vital Signs Date Time Temp Pulse Resp B/P Pulse Ox O2 Delivery O2 Flow Rate FiO2 05/05/16 12:00 59 05/05/16 12:00 60 05/05/16 10:20 94 05/05/16 08:00 98.6 19 122/67 Intake and Output 05/04/16 05/04/16 05/05/16 08:00 16:00 00:00 Intake Total 1112 ml 2024 ml 1200 ml Output Total 2050 ml 2150 ml 2000 ml Balance -938 ml -126 ml -800 ml Result Diagram: 05/05/16 0400 05/05/16 0400 Other Results Microbiology Date/Time Procedure Status Source Growth 05/03/16 06:40 Urine Culture - Final Complete Urine Catheterized Urine NO GROWTH IN 48 HOURS. Imaging Last 24 hours Impressions Chest X-Ray 05/01/16599 Signed Impressions: Service Date/Time: Sunday, May 01, 2016 02:11 - CONCLUSION: Overall image quality is limited due to patient body habitus. Again suspected the bilateral lower lung infiltrates. Jeremiah Tuttle MD Last 24 hours Impressions Chest X-Ray 04/29/16599 Signed Impressions: Service Date/Time: Friday, April 29, 2016 03:30 - CONCLUSION: 1. Stable bibasilar consolidative infiltrates. 2. Some coiling of the PICC line since prior exam with the tip of the PIC line now at the level of the origin of the superior vena cava. Jeremiah Tuttle MD Abdomen X-Ray 04/29/16 0000 Signed Impressions: Service Date/Time: Friday, April 29, 2016 07:12 - CONCLUSION: Suspect Dobbhoff tube in the distal stomach. Garcia Lujan MD Last 24 hours Impressions Chest X-Ray 04/27/16 0600 Signed Impressions: Service Date/Time: Wednesday, April 27, 2016 03:51 - CONCLUSION: 1. Tracheostomy tube in place. No pneumothorax. 2. Pulmonary venous congestion with some bibasilar infiltrates. Lázaro Frankel MD Objective Remarks GENERAL: Lying in bed, on mech vent via trach in situ, sedated due to severe hypoxia, but opens eyes SKIN: Warm and dry. HEAD: Normocephalic. Atraumatic. EYES: PERRL. No scleral icterus. No injection or drainage. ENT: No nasal drainage. Oral and nasal mucosa moist NECK: Shiley 6.0 Proximal XLT, (new trach placed 05/02/16) CARDIOVASCULAR: Regular rate and rhythm without murmurs, gallops, or rubs. Distant heart sounds RESPIRATORY: On mechanical ventilation via tracheostomy. Air entry decreased bilaterally at bases. No wheezing, diminished throughout bilaterally. GASTROINTESTINAL: Abdomen soft, non-tender, obese, normal BS. Tube feeds infusing. NEURO: RASS -2 on mechanical ventilation, on fentanyl, Versed and propofol infusion, to maintain ventilator synchrony. Opens eyes and weakly follows commands Procedures Shiley 6.0 XLT tracheostomy exchange under visual direction by general surgery and with GlideScope, by anesthesiologist. Urinary Catheter: Yes Assessment to: Continue Date of Insertion: Apr 24, 2016 Date of Insertion: Apr 26, 2016 Line: PICC Side: Right A/P Assessment and Plan ASSESSMENT Acute hypercapnic and hypoxemic respiratory failure Healthcare associated pneumonia MDR Pseudomonas Sepsis/persistent fever CHF exacerbation CO2 narcosis Tracheostomy airplane pilot commercial balloon damage -status post exchange with new Shiley 6.0 Proximal XLT 05/02/16) Chronic Respiratory Failure s/p Tracheostomy 4 years ago (Shiley 6.0 Proximal XLT) COPD/obesity hypoventilation syndrome Morbid Obesity BMI 67 History of pulmonary embolism 4 years ago Chronic atrial fibrillation Anxiety CHF (Echo 2013 EF 40-45%; ECHO 08/2015 showing a grossly normal systolic function) Hypertension Hypothyroidism PLAN NEURO: CO2 narcosis Anxiety -Maintain optimal sedation, with RASS -2, due to severe hypoxemic respiratory failure for absolute ventilator synchrony. -Continue Propofol , Versed and Fentanyl. -Sedation vacation if tolerated without hypoxia. 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 IV Diflucan for heather UTI. ID following -Sputum culture revealed Pseudomonas MDR -DuoNeb every 4 hours scheduled -Pulmicort BID (home med) -Continue IV Solu-Medrol to 60 mg every 6 hour -Therapeutic Lovenox 150 mg every 12 hours -Chest x-ray bibasilar infiltrates unchanged CV: CHF exacerbation Pulmonary edema Chronic atrial fibrillation -On Bumex 2 mg IV every 6 hours, urine output more than 6 L. Reviewed the Bumex 1 mg IV every 6 hours due to worsening metabolic alkalosis -[id number] milligram IV daily for 3 days starting 05/04 -Metolazone 5 mg po daily -A. fib rate controlled -Therapeutic Lovenox 150 mg twice a day GI: Super morbid obesity with BMI of 68 -Tube feeds Glucerna 30/hr -IV Protonix IV -SSI per ICU protocol : -Monitor potassium, phosphorus and magnesium closely -Scheduled doses of potassium -Monitor renal function closely. -Diuretic resistance . see new orders under CV -Milan catheter -Change today -Urine culture revealed Heather-, Fluconazole (Day 1) -Strict I&O ID: Healthcare associated pneumonia Sepsis MDRO Possible cellulitis right arm and fast Leukocytosis Recurrent fever -Continue IV vancomycin, Zebaxa (Day 5 )and Fluconazole (Day 3). Continue colistin nebs. Single dose of Zyvox given by ID -Blood urine and blood culture NGTD. Repeat blood and urine culture today -Wound culture Pseudomonas MDR -Sputum culture-Pseudomonas MDR-colistin inhalation -ID consulted, follow-up recommendations -Blood and urine cx neg on 05/03. Send sputum culture HEME: History of PE on chronic anticoagulation with Xarelto Leukocytosis -Monitor CBC, CMP, coags -Xarelto for PE 4 yrs ago. -Hold Xarelto. -Changed to Lovenox 150 mg twice a day ENDO: Hypothyroidism -Electrolyte replacement protocol -Continue levothyroxine 25 mcgs IV daily PROPH: -Bilateral lower extremity SCDs. Lovenox DVT prophylaxis. IV Protonix for GI prophylaxis LINES: - PICC line (day 10) RUE No DVT on US This patient remains critically ill with one or more organ systems which are or may become a threat to life. I have spent in excess of 40 minutes discontinuously in the care and management of this patient. This time is exclusive of procedures, and includes, but is not limited to, evaluation of the patient, review of the medical record, discussions with family, consultants, nursing staff, or respiratory therapy, and documentation in the medical record. Discussed with RN at bedside. The patient mother was notified of all above events by Dr. Morgan, and guarded prognosis. Jaquan Zelaya MD May 05, 2016 13:25
[2016-05-05 13:38] LABS: BLOOD GAS BASE EXCESS 9.9 mmol/L (-2-2); BLOOD GAS HCO3 34 mmol/L (22-26); BLOOD GAS METHEMOGLOBIN 1.1 % (0-2); BLOOD GAS O2 HGB SATURATION 95 % (90-100); BLOOD GAS OXYGEN CONTENT 16.4 Vol % (12.0-20.0); BLOOD GAS PCO2 47 mmHg (38-42); BLOOD GAS PO2 102 mmHg (61-120); BLOOD GAS TOTAL HGB 12.1 G/DL (12.0-16.0); CRITICAL VALUE NO; OXYGEN DEVICE VENTILATOR; TEMP CORR TO 98.6
[2016-05-05 13:39] LABS: DRAW SITE RT RADIAL; FIO2 60 %; NUMBER OF ARTERIAL PUNCTURES 1; STAT NO; ULNAR PULSE PRESENT; VENT SETTINGS SEE COMMENTS
[2016-05-05] MEDS: MEDIUM DOSE INSULIN NOVOLIN REGULAR SUPPLEMENTAL SCALE SQ SCH ×3 (14:00→22:26)
--- NOTE | 2016-05-05 16:35 | HHI.FPPN ---
Addendum to progress note ADDENDUM Reason for addendum: Additonal documentation Additional information Off-service Note 31 year old male with a PMH of chronic respiratory failure s/p tracheostomy 4 years ago receiving 6L O2 via trach tube, morbid obesity with BMI 67.6, atrial fibrillation and pulmonary embolism on Xarelto, CHF last ECHO 09/18/2015 showing a grossly normal systolic function with no definitive EF as it was difficult to assess, ECHO on 05/2014 with EF of 40-45%, and h/o HTN who presented after O2 desats at his assisted living facility. Patient after admission acutely decompensated requiring mechanical ventilation via his tracheostomy tube. Critical care was consulted and patient was found to have a significant amount of air leak around his tracheostomy. General surgery was consulted for a trach exchange which was performed emergently on 05/02. Sputum culture was found to be growing Pseudomonas; urine culture growing Dionne. Infectious disease was consulted, patient has been receiving Zerbaxa for pseudomonal coverage, colistin nebs, vancomycin, Diflucan. Patient remains on ventilator and settings being actively weaned per critical care. (Brandon Canales MD R1) Brandon Canales MD R1 May 05, 2016 16:35 Bernice Garcia MD May 06, 2016 10:17
[2016-05-05] MEDS: FLUCONAZOLE 400 MG PREMIX BAG 200 ML IV SCH (16:44)
[2016-05-05] MEDS ORDERED: EPOPROSTENOL NEB SOLUTION 40 NG/KG/MIN 100 ML NEB ONE ×2 (17:00)
[2016-05-05] MEDS: VANCOMYCIN INJ 2,000 MG in SODIUM CHLORID 0.9% 500 ML INJ 500 ML IV SCH (17:33)
--- NOTE | 2016-05-05 18:18 | MP ---
cc: MAXWELL VIZCARRA M.D. DATE OF SURGERY: 05/02/2016. PREOPERATIVE DIAGNOSIS: Trache with cuff leak. POSTOPERATIVE DIAGNOSIS: Trache with cuff leak. OPERATIVE PROCEDURE PERFORMED: Tracheostomy tube exchange. SURGEON: Dr. Maxwell Vizcarra. CALTRANS EQUIPMENT OPERATOR: Dr. Morgan. Dr. Walton. ANESTHESIA: Succinylcholine. INDICATIONS FOR THE PROCEDURE/BRIEF HISTORY: This is an unfortunate morbidly obese male in the [facility] room 517 who has a permanent tracheostomy tube about [age] years old who pulled the cff catheter off the tube. He has had a leak that has been managed by the critical care medicine and pulmonary teams and respiratory therapy teams. This is no longer functioning well enough and trache exchange was requested. The patient had multiple personnel in the room, two critical care medicine doctors preparing for worst case scenarios. The patient had a proximal XLT size [address] The same tracheostomy tube with an intact balloon was prepped and the patient also had a [place] scope in place looking at his cords in case he needed to be intubated. INTRAOPERATIVE FINDINGS: Successful placement of new proximal XLT size 6 tracheostomy tube. DESCRIPTION OF THE PROCEDURE IN DETAIL: In room 517 under urgent emergent situation, the old tracheostomy tube was removed. The new tracheostomy tube was placed. The inner cannula was placed. The balloon was inflated and the patient was connected to the ventilator with significant improvement in oxygenation and ventilation. He tolerated the procedure without drop in saturations or change in vital signs. The patient was left to respiratory therapy and the critical care medicine doctors. There was no blood loss. MD TAQUERIA Magallon/MOISÉS /5:15 PM /6:58 PM
[2016-05-06] VITALS (19 sets, daily range): BP systolic 107–124; BP diastolic 65–79; PULSE 67–92; RESP 18; TEMP 97.2–100; O2SAT 37–94
[2016-05-06] MEDS ORDERED: EPOPROSTENOL NEB SOLUTION 30 NG/KG/MIN 100 ML NEB ONE ×2 (01:00)
[2016-05-06] MEDS: methylPREDNISolone SOD SUCC 40 MG/1 ML VIAL IV PUSH SCH ×5 (01:32→23:39)
[2016-05-06] MEDS: MEDIUM DOSE INSULIN NOVOLIN REGULAR SUPPLEMENTAL SCALE SQ SCH ×7 (01:32→23:39)
[2016-05-06] MEDS: PROPOFOL 1000 MG/100 ML INJ 100 ML IV SCH ×7 (01:34→17:55)
[2016-05-06] MEDS: fentaNYL DRIP 250 ML IV SCH ×2 (01:37→08:10)
[2016-05-06] MEDS: RESP: ALBUTEROL 2.5 MG/IPRATROPIUM 0.5 MG NEB (SCH) NEB ×4 (03:32→15:22)
[2016-05-06] MEDS: BUMETANIDE INJ 1 MG/4 ML VIAL IV PUSH SCH ×4 (03:52→23:39)
[2016-05-06] MEDS: PANTOPRAZOLE SODIUM 40 MG VIAL IV PUSH SCH ×2 (03:52→14:42)
[2016-05-06] MEDS: POTASSIUM CHLORIDE 20 MEQ PWD PACKET NG SCH ×4 (03:53→23:00)
[2016-05-06] MEDS: ENOXAPARIN SODIUM 150 MG/ML SYRINGE SQ SCH ×2 (03:53→17:06)
[2016-05-06] MEDS: CEFTOLOZANE-TAZOBACTAM INJ 1,500 MG in SODIUM CHLORIDE 0.9% INJ 100 ML IV SCH ×3 (04:05→19:55)
[2016-05-06 05:52] LABS: AUTOMATED NEUTROPHIL # 16.2 TH/MM3 (1.8-7.7); BASOPHIL % 0.1 % (0.0-2.0); HEMATOCRIT 37.3 % (39.0-51.0); LYMPH % 3.2 % (9.0-44.0); LYMPHOCYTE # 0.6 TH/MM3 (1.0-4.8); MEAN CELL VOLUME 75.6 FL (80.0-100.0); MEAN CORPUSCULAR HEMOGLOBIN 22.9 PG (27.0-34.0); MEAN CORPUSCULAR HGB CONC 30.3 % (32.0-36.0); MONO % 2.8 % (0.0-8.0); NEUT % 93.9 % (16.0-70.0); PLATELET COUNT 216 TH/MM3 (150-450); RED BLOOD COUNT 4.93 MIL/MM3 (4.50-5.90); RED CELL DISTRIBUTION WIDTH 19.4 % (11.6-17.2); WHITE BLOOD COUNT 17.3 TH/MM3 (4.0-11.0)
[2016-05-06] MEDS: LEVOTHYROXINE SODIUM 100 MCG VIAL IV PUSH SCH (06:00)
[2016-05-06 06:05] LABS: HEMO FLAGS AUTO DIFF
[2016-05-06 06:11] LABS: ALKALINE PHOSPHATASE 46 U/L (45-117); ALT (GPT) 21 U/L (12-78); ANION GAP 9 MEQ/L (5-15); AST (GOT) 11 U/L (15-37); BICARBONATE 37.5 MEQ/L (21.0-32.0); BLOOD UREA NITROGEN 60 MG/DL (7-18); CHLORIDE 100 MEQ/L (98-107); GLOMERULAR FILTRATION RATE 87 ML/MIN (>89); POTASSIUM 3.6 MEQ/L (3.5-5.1); SODIUM (NA) 146 MEQ/L (136-145); TOTAL BILIRUBIN ADULT 0.7 MG/DL (0.2-1.0)
[2016-05-06] MEDS: CHLORHEXIDINE 0.12% (ORAL KIT) 15 ML CUP MT SCH ×2 (08:00→19:47)
[2016-05-06] MEDS: MONTELUKAST SODIUM 10 MG TAB PO SCH (08:08)
[2016-05-06] MEDS: ATORVASTATIN 10 MG TAB PO SCH (08:08)
[2016-05-06] MEDS: ALLOPURINOL 300 MG TAB PO SCH (08:08)
[2016-05-06] MEDS: FENOFIBRATE 48 MG TAB PO SCH (08:08)
[2016-05-06] MEDS: METOLAZONE 5 MG TAB NG SCH (08:08)
[2016-05-06] MEDS: MIDAZOLAM 100 MG/NS 100 ML DRIP Premix IV SCH (08:10)
[2016-05-06] MEDS: MICONAZOLE NITRATE 2% CREAM 15 GM TOP SCH ×2 (08:11→19:47)
[2016-05-06] MEDS: SODIUM CHLORIDE 0.9% FLUSH 5 ML FLUSH FLUSH SCH ×2 (08:12→19:46)
[2016-05-06 08:48] LABS: BANDS 2 % (0-6); MYELOCYTES 1 % (0-0); NEUTROPHIL # MANUAL DIFF 17.1 TH/MM3 (1.8-7.7); POLYS (SEG NEUTROPHILS) 96 % (16-70); WBC DIFF SAMPLE 100
[2016-05-06 08:49] LABS: PLATELET ESTIMATE SMEAR NORMAL (NORMAL); PLATELET MORPHOLOGY NORMAL (NORMAL); STOMATOCYTES 1+ (NORMAL)
[2016-05-06 08:50] LABS: SCAN/DIFF FINAL DIFF MANUAL
[2016-05-06] MEDS ORDERED: EPOPROSTENOL NEB SOLUTION 20 NG/KG/MIN 100 ML NEB ONE ×2 (09:00)
[2016-05-06] MEDS: RESP: BUDESONIDE 0.5 MG/2 ML NEB NEB SCH ×2 (09:09→20:20)
--- NOTE | 2016-05-06 09:13 | HHI.IDPN ---
Subjective Subjective Remarks Notes reviewed Events of last 3 days reviewed with RN Higher temps this weekend, better overnight Was on FiO2 0.6 this weekend, up to 0.8 this morning Not tolerating TF, on trickle feed (+) BM this weekend BP good, not on pressors On sedation Secretions from trach brown tinged, does not seem to be thick Redness on chest has resolved US RUE, no DVT Last CXR 05/05 with better aeration BC negative repeat sputum with GNR Antibiotics Zerbaxa IV Vanco IV Colistin nebs Diflucan IV Lines PICC RUE Past Medical History Chronic Respiratory Failure s/p Tracheostomy 4 years ago Morbid Obesity w/ BMI 67.6 Atrial fibrillation Pulmonary embolism 4 years ago Anxiety CHF (Echo 06/07/2014 w/ EF 40-45%; ECHO 08/2015 showing a grossly normal systolic function) HTN Hypothyroidism Past Surgical History Tracheostomy Tonsillectomy Allergies: Coded Allergies: No Known Allergies (Unverified , 09/16/15) Objective . Vital Signs Date Time Temp Pulse Resp B/P Pulse Ox O2 Delivery O2 Flow Rate FiO2 05/06/16 06:00 67 05/06/16 04:15 37 60 05/06/16 04:00 72 05/06/16 04:00 100.0 72 18 107/65 92 05/06/16 04:00 60 05/06/16 02:00 80 05/06/16 01:00 99.9 91 18 113/68 91 05/06/16 00:48 92 60 05/06/16 00:00 82 05/06/16 00:00 60 05/05/16 22:00 75 05/05/16 20:30 93 60 05/05/16 20:00 60 05/05/16 20:00 66 05/05/16 20:00 99.1 66 18 104/59 92 05/05/16 18:00 85 05/05/16 16:29 91 60 05/05/16 16:00 97.5 80 18 100/59 90 05/05/16 16:00 60 05/05/16 16:00 80 05/05/16 14:25 94 60 05/05/16 14:00 63 05/05/16 12:00 98.1 59 18 127/72 94 05/05/16 12:00 59 05/05/16 12:00 60 05/05/16 10:20 94 60 05/05/16 10:00 67 05/05/16 05/05/16 05/06/16 15:00 23:00 07:00 Intake Total 1721 ml 1474 ml 676 ml Output Total 2100 ml 1400.0 ml 1350 ml Balance -379 ml 74.0 ml -674 ml IV Total 1338 ml 1240 ml 552 ml Tube Feeding 263 ml 184 ml 74 ml Tube Irrigant 120 ml 50 ml 50 ml Output Urine Total 2100 ml 1200 ml 1350 ml Tube Feeding Residual Discard 200.0 ml # Bowel Movements 1 1 0 . Laboratory Tests Test 05/05/16 05/06/16 04:00 03:37 White Blood Count 17.7 TH/MM3 17.3 TH/MM3 Red Blood Count 4.92 MIL/MM3 4.93 MIL/MM3 Hemoglobin 11.4 GM/DL 11.3 GM/DL Hematocrit 37.0 % 37.3 % Mean Corpuscular Volume 75.2 FL 75.6 FL Mean Corpuscular Hemoglobin 23.2 PG 22.9 PG Mean Corpuscular Hemoglobin 30.9 % 30.3 % Concent Red Cell Distribution Width 19.4 % 19.4 % Platelet Count 242 TH/MM3 216 TH/MM3 Mean Platelet Volume 8.8 FL 9.1 FL Neutrophils (%) (Auto) 91.1 % 93.9 % Lymphocytes (%) (Auto) 5.3 % 3.2 % Monocytes (%) (Auto) 3.5 % 2.8 % Eosinophils (%) (Auto) 0.0 % 0.0 % Basophils (%) (Auto) 0.1 % 0.1 % Neutrophils # (Auto) 16.1 TH/MM3 16.2 TH/MM3 Lymphocytes # (Auto) 0.9 TH/MM3 0.6 TH/MM3 Monocytes # (Auto) 0.6 TH/MM3 0.5 TH/MM3 Eosinophils # (Auto) 0.0 TH/MM3 0.0 TH/MM3 Basophils # (Auto) 0.0 TH/MM3 0.0 TH/MM3 CBC Comment AUTO DIFF AUTO DIFF Differential Comment AUTO DIFF FINAL DIFF CONFIRMED MANUAL Differential Total Cells 100 Counted Neutrophils % (Manual) 96 % Band Neutrophils % 2 % Monocytes % 1 % Neutrophils # (Manual) 17.1 TH/MM3 Myelocytes 1 % Platelet Estimate NORMAL Platelet Morphology Comment NORMAL Stomatocytes 1+ Laboratory Tests Test 05/05/16 05/06/16 04:00 03:37 Sodium Level 144 MEQ/L 146 MEQ/L Potassium Level 3.3 MEQ/L 3.6 MEQ/L Chloride Level 98 MEQ/L 100 MEQ/L Carbon Dioxide Level 40.4 MEQ/L 37.5 MEQ/L Anion Gap 6 MEQ/L 9 MEQ/L Blood Urea Nitrogen 50 MG/DL 60 MG/DL Creatinine 0.96 MG/DL 1.00 MG/DL Estimat Glomerular Filtration 91 ML/MIN 87 ML/MIN Rate Random Glucose 201 MG/DL 180 MG/DL Calcium Level 8.9 MG/DL 9.2 MG/DL Magnesium Level 2.5 MG/DL Total Bilirubin 0.7 MG/DL 0.7 MG/DL Aspartate Amino Transf 14 U/L 11 U/L (AST/SGOT) Alanine Aminotransferase 25 U/L 21 U/L (ALT/SGPT) Alkaline Phosphatase 52 U/L 46 U/L Total Protein 6.8 GM/DL 6.6 GM/DL Albumin 2.6 GM/DL 2.7 GM/DL Microbiology Date/Time Procedure Status Source Growth 05/03/16 09:50 Aerobic Blood Culture - Preliminary Resulted Blood Peripheral NO GROWTH IN 2 DAYS 05/03/16 09:50 Anaerobic Blood Culture - Preliminary Resulted Blood Peripheral NO GROWTH IN 2 DAYS 05/03/16 09:56 Aerobic Blood Culture - Preliminary Resulted Blood Peripheral NO GROWTH IN 2 DAYS 05/03/16 09:56 Anaerobic Blood Culture - Preliminary Resulted Blood Peripheral NO GROWTH IN 2 DAYS 05/04/16 15:49 Gram Stain - Final Resulted Sputum Endotracheal 05/04/16 15:49 Sputum Culture - Preliminary Resulted Gram Negative [place] 05/04/16 15:55 Aerobic Blood Culture - Preliminary Resulted Blood Line NO GROWTH IN 1 DAY 05/04/16 15:55 Anaerobic Blood Culture - Preliminary Resulted Blood Line NO GROWTH IN 1 DAY 05/05/16 07:30 Urine Culture Received Urine Clean Catch Pending Imaging Chest X-Ray 05/05/16 0600 Signed Impressions: Service Date/Time: Thursday, May 05, 2016 01:56 - CONCLUSION: Improved aeration bilaterally particularly in the left upper lobe. Tube and catheter are stable. Amador Brock MD Chest X-Ray 05/03/16 0000 Signed Impressions: Service Date/Time: Tuesday, May 03, 2016 06:40 - CONCLUSION: Increasing bilateral diffuse pulmonary infiltrates compared to the prior study. Lázaro Frankel MD Upper Extremity Ultrasound 05/02/16 0000 Signed Impressions: Service Date/Time: April 20:51 - CONCLUSION: No DVT. Garcia Lujan MD Abdomen X-Ray 04/29/16 0000 Signed Impressions: Service Date/Time: Friday, April 29, 2016 07:12 - CONCLUSION: Suspect Dobbhoff tube in the distal stomach. Garcia Lujan MD Physical Exam GENERAL: This is a morbidly obese male, awake, and responding, on the vent, not in distress. SKIN: Warm and moist. No generalized rash. No cyanosis noted. HEAD: Atraumatic. Normocephalic. No temporal or scalp tenderness. EYES: [place] conjunctivae. Pupils equal round and reactive. No scleral icterus. Has mild conjunctival injection bilaterally. ENT: Nose without purulent drainage. Moist mucosa. Has a lot of oral secretions. NECK: Short and obese, has new trach, site ok. Supple, no meningeal signs. CARDIOVASCULAR: Regular rate and rhythm without murmurs, gallops, or rubs. Distant heart sounds. The area of erythema with heat on his R shoulder and goes to his R breast, as well as redness in his R upper arm above his PICC has resolved RESPIRATORY: Decreased BS bilaterally. GASTROINTESTINAL: Abdomen soft, morbidly obese, nt tender, not distended. Bowel sounds present and hypoactive. MUSCULOSKELETAL: Extremities without clubbing, cyanosis. Has mild pitting edema. NEUROLOGICAL: Awake and responding LINE: PICC in RUE, site ok, : [place] in place, urine looks clear Assessment & Plan Remarks IMPRESSION Chronic respiratory failure, has trach, has HCAP - C/S with MDR PSAE MDR PSAE PNA, now ? new HCAP vs component of fluid overload. Fevers, better Leukocytosis, due to PNA, and partly due to steroids Has an area of cellulitis in his RUE and R chest - rebecca - BC negative - no DVT on US RUE Morbid obesity Hx PE Candiduria, UA only with 18 WBC, likely colonization RECOMMENDATION Continue Zerbaxa IV. Follow Cx to adjust regimen. Continue colistin nebs Change Vanco IV to Zyvox to complete Rx for the cellulitis on his chest Continue Diflucan Monitor temps Follow C/S Monitor progress D/W RN Spoke with medical team Dana Tam MD May 06, 2016 09:13
[2016-05-06] MEDS: LINEZOLID 600 MG TAB PO SCH ×2 (10:10→19:46)
[2016-05-06] MEDS: RESP: COLISTIN 150 MG VIAL NEB SCH ×3 (10:30→23:20)
[2016-05-06] MEDS ORDERED: PHARMACY ORDERED LAB XX ONE (11:45)
[2016-05-06] MEDS ORDERED: EPOPROSTENOL NEB SOLUTION 10 NG/KG/MIN 100 ML NEB ONE ×2 (17:00)
[2016-05-06] MEDS: METOCLOPRAMIDE HCL 10 MG/2 ML VIAL IV PUSH SCH ×2 (17:06→19:46)
[2016-05-06] MEDS: FLUCONAZOLE 100 MG TAB PO SCH (17:07)
--- NOTE | 2016-05-06 17:18 | HHI.CCPN ---
Subjective Remarks/Hospital Course 04/24: Wilfrido Fortune is a 31 year old male with past medical history of chronic respiratory failure s/p tracheostomy 4 years ago, super morbid obesity (BMI 68) , atrial fibrillation and pulmonary embolism on Xarelto, COPD, CHF and h/o HTN. Patient presented from [facility] with low oxygen saturation apparently his oxygen saturation was 82% on RA. He was placed back on 6L of oxygen via his trach mask and given a breathing treatment, initially improved however he started drifting back to low 80s again. Apparently patient had been getting treatment for pneumonia at the rehabilitation facility. In the ER chest x-ray showed bibasilar infiltrates and pulmonary edema. Patient was admitted to the [facility] service and was started on IV steroids IV vancomycin and Zosyn and Levaquin for healthcare associated pneumonia. ABG after admission was pH of 7.42 PCO2 of 61 and PO2 55. Repeat ABG at 5 PM showed pH of 7.26 PCO2 of 85 and PO2 of 70 and patient was started on BiPAP by the [facility]. ABG at 10:15 showed worsening CO2 retention with pH 7.16 PCO2 108 and PO2 of 98. At that time critical care medicine was consulted After receiving the consult, Dr. Zelaya immediately ordered placement on for full mechanical ventilatory support and starting sedation for ventilator synchrony. Dr. Zelaya evaluated the patient in ICU. After starting ACV, patient was more awake but there was a significant amount of air leak around his tracheostomy. Patient has a Shiley 6.0 Proximal XLT, but the ship pilot dispatcher balloon had been cut off. Vent settings changed from ACV to pressure control with inspiratory pressure of 25, which improved the tidal volume he was receiving. General surgery consulted for trach exchange in a.m. Solu-Medrol increased to 60 mg IV every 6 hours after 125 mg bolus. Additional 2 mg IV Bumex had been ordered. Scheduled and when necessary breathing treatment ordered. 04/25: Patient remains on mechanical ventilation via tracheostomy. Discussed with Dr. Dannie arrieta from general surgery. He inflated air in the cuff using a Seldinger needle and then applied a hemostat with which cuff appeared to stay inflated and patient started volume improved. He plans to change out tracheostomy once patient is a little more stable in the next 24-48 hours in the OR. 04/26: Afebrile. Tracheostomy cuff remains inflated, with hemostat secured. Tidal volumes greater than 400 cc. Patient continues on fentanyl and propofol infusions, with a RASS score of 0. Patient complains of discomfort in bed, requesting larger more comfortable bed. FiO2 decreased to 80% this a.m., with close monitoring to be trended with O2 sat of 94% discussion with Dr. Arrieta this a.m.. The patient is still too unstable secondary to respiratory insufficiency to go to the OR today, will begin therapeutic anticoagulation today secondary to history of PE and other risk factors. 04/27: Afebrile. Tmax 97.6. Overnight the patient required increasing O2 concentrations. Patient's trach cuff required reinflation 2 overnight, maintaining volumes 400-500 cc per breath. The patient's FiO2 currently is 1.0 , O2 sat 94-96%. The patient received PICC line yesterday secondary to difficult IV access and nutrition requirements, will begin PPN tonight. The patient remains optimally sedated for ventilator's synchrony, and minimization of agitation. Currently requirements include propofol Versed and fentanyl infusions. 04/28: Tmax 98.7. The patient still requires and increasing O2 concentrations, Flolan initiated last night FiO2 was significantly decreased to 60% ,however this a.m. patient's O2 sat remained mid 80s with a requirement of increasing PEEP to 11 and FiO2 return to 100% currently aggressively utilizing recruitment maneuvers to decrease O2 and PEEP requirements for transfer to the OR tomorrow for exchange of tracheostomy apparatus. The patient continues to be sedated for patient safety and ventilator synchrony. 04/29:Tmax 100.0. Overnight the patient was diuresed approximately 5 L. The patient continues on a Lasix infusion. The FiO2 was significantly decrease post diuresis to 0.65, the patient continues on a PEEP of 12 with O2 saturations 93-94%. Successful placement of Dobbhoff tube, early this a.m. we' ll begin tube feeds this a.m. and discontinue PPN. General Surgery contacted this a.m. regarding tracheostomy exchange for scheduled time. Patient's Lovenox is held for OR, will place on heparin infusion, procedures time is scheduled for later today. The patient continues to be on sedation for safety to prevent dislodgment out tracheostomy tube. Radiological imaging studies reveal a loop and PICC line, will reconsult PICC team. 04/30: Afebrile. It is felt at this time by General Surgery, that the airway is secure as evidenced by lung volumes have been maintained for the last 3 days., Will attempt to repair ship pilot dispatcher balloon, if unsuccessful in attempts at repairing ship pilot dispatcher balloon, general surgery would consider exchanging the Shiley 60 XLT trach on an elective basis,when the patient was no longer critically ill. It is felt at this time, if tracheostomy was exchanged at this point in time the risks outweigh the benefit, and could result and possible . Attempts were made to decrease the PEEP to 8 , this afternoon and within an half an hour, the patient went into jacques pulmonary edema, copious pink frothy some sputum was noted to be emanating from the tracheostomy tube. O2 sat saturations dropped into the 60s,acutely. The patient was bolused with 80 mg of Lasix and 500 mg of Diamox and the PEEP was increased to 12. The patient's oxygenation improved with manual Ambu bag being and the PEEP of 12. The PICC line was power flushed early this morning repeat x-ray revealed the loop and line resolved, no resistance noted. 05/01: Tmax 101.0. The patient remains sedated fentanyl and propofol infusion. Pulmonary edema resolved, last evening. The patient continues on Lasix infusion , for continued diuresis. The patient has been able to maintain a O2 saturation of 94%, with FiO2 of 0.80 and PEEP of 12. Specialty bed ordered, due to patient's immobility and body habitus, plans to transfer patient to specialty bed with close control and monitoring of tracheostomy. 05/02: Tmax 100.3. The patient was transferred to a specialty bed yesterday . Today, the patient became acutely hypoxemic with a large cuff leak, unable to transition with previous methods of inflating balloon. O2 sat 80s with PEEP of 14, FIO2 100% Dr. Macias, Dr. Arrieta present. Anesthesia notified for back up, Dr. Magdaleno Walton Anesthesiologist, and myself at bedside. Glidescope intubation performed, Mallampati grade 2 noted upon visualization. O2 sat 90%, 6.[address] exchange by Dr. Corbett. Bilateral breath sounds equal, distant. Copious pink frothy fluid emanating from trach consistent with continuous pulmonary edema. Lung recruitment approximately 4 hours from O2 sat 87% to obtain O2 sat of 92. Today patient noted to have diuretic resistance, additional diuretics provided. Family updated on above events. 05/03: Tmax 101.5. FiO2 remains at 90%. Urine output excellent more than 8 L on Lasix infusion. Patient is status post emergency trach exchange at bedside by Dr. Macias, due to acute hypoxemia and large cuff leak (notes from yesterday reviewed). Condition remains critical 05/04: Remains critically ill. Tmax 102. Urine output approximately 8 L on Lasix infusion but bicarbonate climbing. Start on Diamox for 3 days and DC Lasix gtt, start Bumex 2 mg IV q6. 05/05: Remains intubated sedated critically ill. Currently on FiO2 60% and PEEP of extreme Flolan at 50 ng. I will start weaning Flolan gradually. Afebrile now even though white count slightly increased to 17.7 from 15.5 yesterday. Evidence of metabolic alkalosis, decrease Bumex to 1 mg IV every 6 hours and continue Diamox Objective Vital Signs Date Time Temp Pulse Resp B/P Pulse Ox O2 Delivery O2 Flow Rate FiO2 05/06/16 16:00 81 05/06/16 16:00 60 05/06/16 16:00 99.1 18 124/77 94 Intake and Output 05/05/16 05/05/16 05/06/16 08:00 16:00 00:00 Intake Total 745 ml 1721 ml 1474 ml Output Total 2450 ml 2100 ml 1400.0 ml Balance -1705 ml -379 ml 74.0 ml Result Diagram: 05/06/16 0337 05/06/16 0337 Other Results Microbiology Date/Time Procedure Status Source Growth 05/04/16 15:49 Gram Stain - Final Complete Sputum Endotracheal 05/04/16 15:49 Sputum Culture - Final Complete Providencia Stuartii Imaging Last 24 hours Impressions Chest X-Ray 05/01/16 0600 Signed Impressions: Service Date/Time: Sunday, May 01, 2016 02:11 - CONCLUSION: Overall image quality is limited due to patient body habitus. Again suspected the bilateral lower lung infiltrates. Jeremiah Tuttle MD Last 24 hours Impressions Chest X-Ray 04/29/16 0600 Signed Impressions: Service Date/Time: Friday, April 29, 2016 03:30 - CONCLUSION: 1. Stable bibasilar consolidative infiltrates. 2. Some coiling of the PICC line since prior exam with the tip of the PIC line now at the level of the origin of the superior vena cava. Jeremiah Tuttle MD Abdomen X-Ray 04/29/16 0000 Signed Impressions: Service Date/Time: Friday, April 29, 2016 07:12 - CONCLUSION: Suspect Dobbhoff tube in the distal stomach. Garcia Lujan MD Last 24 hours Impressions Chest X-Ray 04/27/16 0600 Signed Impressions: Service Date/Time: Wednesday, April 27, 2016 03:51 - CONCLUSION: 1. Tracheostomy tube in place. No pneumothorax. 2. Pulmonary venous congestion with some bibasilar infiltrates. Lázaro Frankel MD Objective Remarks GENERAL: Lying in bed, on mech vent via trach in situ, sedated due to severe hypoxia, but opens eyes SKIN: Warm and dry. HEAD: Normocephalic. Atraumatic. EYES: PERRL. No scleral icterus. No injection or drainage. ENT: No nasal drainage. Oral and nasal mucosa moist NECK: Shiley 6.0 Proximal XLT, (new trach placed 05/02/16) CARDIOVASCULAR: Regular rate and rhythm without murmurs, gallops, or rubs. Distant heart sounds RESPIRATORY: On mechanical ventilation via tracheostomy. Air entry decreased bilaterally at bases. No wheezing, diminished throughout bilaterally. GASTROINTESTINAL: Abdomen soft, non-tender, obese, normal BS. Tube feeds infusing. NEURO: RASS -2 on mechanical ventilation, on fentanyl, Versed and propofol infusion, to maintain ventilator synchrony. Opens eyes and weakly follows commands Procedures Shiley 6.0 XLT tracheostomy exchange under visual direction by general surgery and with GlideScope, by anesthesiologist. Date of Insertion: Apr 24, 2016 Date of Insertion: Apr 26, 2016 Line: PICC Side: Right A/P Assessment and Plan ASSESSMENT Acute hypercapnic and hypoxemic respiratory failure Healthcare associated pneumonia MDR Pseudomonas Sepsis/persistent fever CHF exacerbation CO2 narcosis Tracheostomy ship pilot dispatcher balloon damage -status post exchange with new Shiley 6.0 Proximal XLT 05/02/16) Chronic Respiratory Failure s/p Tracheostomy 4 years ago (Shiley 6.0 Proximal XLT) COPD/obesity hypoventilation syndrome Morbid Obesity BMI 67 History of pulmonary embolism 4 years ago Chronic atrial fibrillation Anxiety CHF (Echo 2013 EF 40-45%; ECHO 08/2015 showing a grossly normal systolic function) Hypertension Hypothyroidism PLAN NEURO: CO2 narcosis Anxiety -Maintain optimal sedation, with RASS -2, due to severe hypoxemic respiratory failure for absolute ventilator synchrony. -Continue Propofol , Versed and Fentanyl. -Sedation vacation if tolerated without hypoxia. (Currently avoid due to high vent settings, PEEP and severe hypoxia) RESP: Acute hypercapnic and hypoxemic respiratory failure Healthcare associated pneumonia Tracheostomy ship pilot dispatcher balloon damage (Shiley 6.0 Proximal XLT) s/p new trach placement 05/02 Chronic Respiratory Failure s/p Tracheostomy 4 years ago COPD/obesity hypoventilation syndrome History of pulmonary embolism 4 years ago Leukocytosis Pulmonary edema -Continue mechanical ventilation PRVC TV 650 iT 1.5, PEEP 16 FiO2 .60, Titrate to keep SaO2 >88% -Flolan initiated 04/27 at maximum doses 50 ng, reduce to 40 ng from next bag -Healthcare associated pneumonia (MDRO) is being treated with IV Vancomycin, Zerbaxa and Colistin nebs. IV Diflucan for heather UTI. ID following -Sputum culture revealed Pseudomonas MDR -DuoNeb every 4 hours scheduled -Pulmicort BID (home med) -Continue IV Solu-Medrol to 60 mg every 6 hour -Therapeutic Lovenox 150 mg every 12 hours -Chest x-ray bibasilar infiltrates unchanged CV: CHF exacerbation Pulmonary edema Chronic atrial fibrillation -On Bumex 2 mg IV every 6 hours, urine output more than 6 L. Reviewed the Bumex 1 mg IV every 6 hours due to worsening metabolic alkalosis -[id number] milligram IV daily for 3 days starting 05/04 -Metolazone 5 mg po daily -A. fib rate controlled -Therapeutic Lovenox 150 mg twice a day GI: Super morbid obesity with BMI of 68 -Tube feeds Glucerna 30/hr -IV Protonix IV -SSI per ICU protocol : -Monitor potassium, phosphorus and magnesium closely -Scheduled doses of potassium -Monitor renal function closely. -Diuretic resistance . see new orders under CV -[place] catheter -Change today -Urine culture revealed Heather-, Fluconazole (Day 1) -Strict I&O ID: Healthcare associated pneumonia Sepsis MDRO Possible cellulitis right arm and fast Leukocytosis Recurrent fever -Continue IV vancomycin, Zebaxa (Day 5 )and Fluconazole (Day 3). Continue colistin nebs. Single dose of Zyvox given by ID -Blood urine and blood culture NGTD. Repeat blood and urine culture today -Wound culture Pseudomonas MDR -Sputum culture-Pseudomonas MDR-colistin inhalation -ID consulted, follow-up recommendations -Blood and urine cx neg on 05/03. Send sputum culture HEME: History of PE on chronic anticoagulation with Xarelto Leukocytosis -Monitor CBC, CMP, coags -Xarelto for PE 4 yrs ago. -Hold Xarelto. -Changed to Lovenox 150 mg twice a day ENDO: Hypothyroidism -Electrolyte replacement protocol -Continue levothyroxine 25 mcgs IV daily PROPH: -Bilateral lower extremity SCDs. Lovenox DVT prophylaxis. IV Protonix for GI prophylaxis LINES: - PICC line (day 10) RUE No DVT on US Critical Care: The total critical care time was 35 minutes. Time to perform other separately billable procedures was not included in the critical care time. Adin Dobson MD May 06, 2016 17:18
--- NOTE | 2016-05-06 17:20 | HHI.FPPN ---
Subjective Remarks Had one episode of desaturation overnight into the 80's and required increase in FiO2 to 80% from 60%. Otherwise no acute events overnight. Reports no pain this morning. (Joshua Morgan MD R2) Objective Vitals Vital Signs Date Time Temp Pulse Resp B/P Pulse Ox O2 Delivery O2 Flow Rate FiO2 05/06/16 16:00 81 05/06/16 16:00 60 05/06/16 16:00 99.1 81 18 124/77 94 05/06/16 15:24 89 65 05/06/16 14:00 81 05/06/16 12:00 92 05/06/16 12:00 65 05/06/16 12:00 99.2 92 18 111/77 92 05/06/16 11:44 91 65 05/06/16 10:00 90 05/06/16 09:10 92 75 05/06/16 08:00 97.2 87 18 119/79 92 05/06/16 08:00 87 05/06/16 08:00 80 05/06/16 06:00 67 05/06/16 04:15 37 60 05/06/16 04:00 72 05/06/16 04:00 100.0 72 18 107/65 92 05/06/16 04:00 60 05/06/16 02:00 80 05/06/16 01:00 99.9 91 18 113/68 91 05/06/16 00:48 92 60 05/06/16 00:00 82 05/06/16 00:00 60 05/05/16 22:00 75 05/05/16 20:30 93 60 05/05/16 20:00 60 05/05/16 20:00 66 05/05/16 20:00 99.1 66 18 104/59 92 05/05/16 18:00 85 I/O 05/05/16 05/05/16 05/05/16 05/06/16 05/06/16 05/06/16 07:00 15:00 23:00 07:00 15:00 23:00 Intake Total 745 ml 1721 ml 1474 ml 676 ml 992 ml Output Total 2450 ml 2100 ml 1400.0 ml 1350 ml 1845.0 ml Balance -1705 ml -379 ml 74.0 ml -674 ml -853.0 ml IV Total 496 ml 1338 ml 1240 ml 552 ml 806 ml Tube Feeding 199 ml 263 ml 184 ml 74 ml 86 ml Tube Irrigant 50 ml 120 ml 50 ml 50 ml 100 ml Output Urine Total 2450 ml 2100 ml 1200 ml 1350 ml 1600 ml Tube Feeding Residual Discard 200.0 ml 245.0 ml # Bowel Movements 0 1 1 0 0 (Joshua Morgan MD R2) Result Diagram: 05/06/1633605/06/16336 Objective Remarks GENERAL: On mechanical ventilation, NG tube in place, no distress. SKIN: Warm and dry. No rashes or lesions. HEAD: Normocephalic. Atraumatic. ENT: No nasal drainage. Tracheotomy site is clean and dry without drainage. NECK: No JVD. CARDIOVASCULAR: Distant heart sounds. Regular rate and rhythm without murmurs, gallops, or rubs. Peripheral pulses 2+. RESPIRATORY: On mechanical ventilation. Clear to auscultation bilaterally. No rales or rhonchi. GASTROINTESTINAL: Abdomen soft, obese, hypoactive BS. Unable to assess for organomegaly or masses. MUSCULOSKELETAL: Lower extremity edema. NEURO: Awake, somewhat alert, under sedation. (Joshua Morgan MD R2) Date of Insertion: Apr 24, 2016 (Joshua Morgan MD R2) Date of Insertion: Apr 26, 2016 Line: PICC Side: Right (Joshua Morgan MD R2) A/P Assessment and Plan 31 year old male with respiratory failure s/p tracheostomy 4 years ago, morbid obesity with BMI 67.6, atrial fibrillation and pulmonary embolism on Xarelto, CHF, and h/o HTN in long-term rehab at [facility] presented to the ED after having low oxygen saturation at 82% on RA. He was admitted for shortness of breath likely secondary to a combination of HCAP, COPD exacerbation and CHF exacerbation. He is currently in acute respiratory failure, on mechanical ventilation in the intensive care unit and being managed by critical care. Assessment and Plan ASSESSMENT Acute hypercapnic and hypoxemic respiratory failure Healthcare associated pneumonia MDR Pseudomonas Sepsi CHF exacerbation Hypercapnia Tracheostomy marine pilot balloon damage -status post exchange 05/02/16 Chronic Respiratory Failure s/p Tracheostomy 4 years ago COPD/obesity hypoventilation syndrome Morbid Obesity BMI 67 History of pulmonary embolism 4 years ago Chronic atrial fibrillation Anxiety CHF (Echo 2013 EF 40-45%; ECHO 08/2015 showing grossly normal systolic function) Hypertension Hypothyroidism NEURO: CO2 narcosis Anxiety -Sedation for ventilatory synchrony. -Propofol , Versed and Fentanyl. -Sedation vacation if tolerated without hypoxia. RESP: Acute hypercapnic and hypoxemic respiratory failure Healthcare associated pneumonia Tracheostomy marine pilot balloon damage s/p new trach placement 05/02 Chronic Respiratory Failure s/p Tracheostomy 4 years ago COPD/obesity hypoventilation syndrome History of pulmonary embolism 4 years ago Leukocytosis Pulmonary edema -Continue mechanical ventilation PRVC TV 650 iT 1.5, PEEP 16 FiO2 80, Titrate to keep SaO2 >88% -Healthcare associated pneumonia (MDRO):IV Vancomycin, Zerbaxa and Colistin nebulizer. IV Diflucan for dionne UTI. ID following - Continue Flolan -Sputum culture: Pseudomonas MDR -DuoNeb every 4 hours scheduled -Pulmicort BID (home med) -Continue IV Solu-Medrol to 60 mg every 6 hour -Therapeutic Lovenox 150 mg every 12 hours -Chest x-ray bibasilar infiltrates unchanged CV: CHF exacerbation Pulmonary edema Chronic atrial fibrillation -On Bumex 1 mg IV every 6 hours, monitor UOP -[id number] milligram IV daily for 3 days starting 05/04 -Metolazone 5 mg po daily -A. fib rate controlled -Therapeutic Lovenox 150 mg twice a day GI: Super morbid obesity with BMI of 68, high residuals -Tube feeds Glucerna -Added Reglan for high residuals -IV Protonix IV -SSI per ICU protocol : -Monitor potassium, phosphorus and magnesium -Scheduled doses of potassium -Monitor renal function -[place] catheter -Urine culture revealed Dionne-, Fluconazole (Day 1) -Strict I&O ID: Healthcare associated pneumonia Sepsis MDRO Possible cellulitis right arm and fast Leukocytosis Recurrent fever -Continue IV vancomycin, Zebaxa and Fluconazole. Continue colistin nebs. -Blood urine and blood culture NGTD. Repeat blood and urine culture today -Wound culture Pseudomonas MDR -Sputum culture-Pseudomonas MDR-colistin inhalation -ID consulted, follow-up recommendations -Blood and urine cx neg on 05/03. Send sputum culture HEME: History of PE on chronic anticoagulation with Xarelto Leukocytosis -Monitor CBC, CMP, coags -Xarelto for PE 4 yrs ago. -Hold Xarelto. -Changed to Lovenox 150 mg twice a day ENDO: Hypothyroidism -Electrolyte replacement protocol -Continue levothyroxine 25 mcgs IV daily PROPH: -Bilateral lower extremity SCDs. Lovenox DVT prophylaxis. IV Protonix for GI prophylaxis LINES: - PICC line SOCIAL - Keep mother updated Discharge Planning Patient will need to be weaned from mech vent with stable clinical status. Hopeful for patient to be able to return to long-term rehab facility. (Joshua Morgan MD R2) Attending Attestation Patient seen and examined. Case reviewed and discussed. Agree with plan of care as discussed with me and documented in the resident note. (Bernice Garcia MD) Joshua Morgan MD R2 May 06, 2016 17:20 Bernice Garcia MD May 10, 2016 10:39
[2016-05-06] MEDS: RESP: ALBUTEROL 2.5 MG/IPRATROPIUM 0.5 MG NEB (PRN) NEB (20:20)
[2016-05-06] MEDS: NYSTATIN 100,000 U/GM PWD 15 GM BTL TOPICAL SCH (20:45)
[2016-05-07] VITALS (19 sets, daily range): BP systolic 124–151; BP diastolic 73–83; PULSE 72–88; RESP 18; TEMP 98.4–99.1; O2SAT 89–93
[2016-05-07] MEDS: PROPOFOL 1000 MG/100 ML INJ 100 ML IV SCH ×7 (01:34→17:17)
[2016-05-07] MEDS: RESP: ALBUTEROL 2.5 MG/IPRATROPIUM 0.5 MG NEB (SCH) NEB ×4 (03:31→19:55)
[2016-05-07] MEDS: POTASSIUM CHLORIDE 20 MEQ PWD PACKET NG SCH ×3 (04:40→17:00)
[2016-05-07] MEDS: MEDIUM DOSE INSULIN NOVOLIN REGULAR SUPPLEMENTAL SCALE SQ SCH ×5 (04:40→20:33)
[2016-05-07] MEDS: fentaNYL DRIP 250 ML IV SCH ×2 (04:40→08:05)
[2016-05-07] MEDS: CEFTOLOZANE-TAZOBACTAM INJ 1,500 MG in SODIUM CHLORIDE 0.9% INJ 100 ML IV SCH ×2 (04:41→11:15)
[2016-05-07] MEDS: PANTOPRAZOLE SODIUM 40 MG VIAL IV PUSH SCH ×2 (04:41→14:11)
[2016-05-07] MEDS: ENOXAPARIN SODIUM 150 MG/ML SYRINGE SQ SCH ×2 (04:41→17:11)
[2016-05-07] MEDS: BUMETANIDE INJ 1 MG/4 ML VIAL IV PUSH SCH ×3 (04:41→20:34)
[2016-05-07 05:08] LABS: BASOPHIL % 0.2 % (0.0-2.0); HEMATOCRIT 37.8 % (39.0-51.0); LYMPH % 3.8 % (9.0-44.0); LYMPHOCYTE # 0.6 TH/MM3 (1.0-4.8); MEAN CELL VOLUME 75.5 FL (80.0-100.0); MEAN CORPUSCULAR HEMOGLOBIN 23.2 PG (27.0-34.0); MEAN CORPUSCULAR HGB CONC 30.8 % (32.0-36.0); MONO % 1.9 % (0.0-8.0); NEUT % 94.1 % (16.0-70.0); PLATELET COUNT 212 TH/MM3 (150-450); RED CELL DISTRIBUTION WIDTH 19.8 % (11.6-17.2); WHITE BLOOD COUNT 14.9 TH/MM3 (4.0-11.0)
[2016-05-07 05:09] LABS: HEMO FLAGS AUTO DIFF
[2016-05-07] MEDS: LEVOTHYROXINE SODIUM 100 MCG VIAL IV PUSH SCH (05:22)
[2016-05-07] MEDS: methylPREDNISolone SOD SUCC 40 MG/1 ML VIAL IV PUSH SCH ×3 (05:22→17:12)
[2016-05-07 05:27] LABS: ANION GAP 7 MEQ/L (5-15); AST (GOT) 12 U/L (15-37); BICARBONATE 34.8 MEQ/L (21.0-32.0); BLOOD UREA NITROGEN 67 MG/DL (7-18); CHLORIDE 106 MEQ/L (98-107); GLOMERULAR FILTRATION RATE 80 ML/MIN (>89); MAGNESIUM 2.5 MG/DL (1.5-2.5); POTASSIUM 4.2 MEQ/L (3.5-5.1); SODIUM (NA) 148 MEQ/L (136-145)
[2016-05-07 05:30] LABS: BLOOD GAS BASE EXCESS 8.3 mmol/L (-2-2); BLOOD GAS CARBOXYHEMOGLOBIN 1.3 % (0-4); BLOOD GAS HCO3 33 mmol/L (22-26); BLOOD GAS METHEMOGLOBIN 1.3 % (0-2); BLOOD GAS O2 HGB SATURATION 91 % (90-100); BLOOD GAS OXYGEN CONTENT 15.4 Vol % (12.0-20.0); BLOOD GAS PCO2 52 mmHg (38-42); BLOOD GAS PO2 74 mmHg (61-120); BLOOD GAS TOTAL HGB 12.1 G/DL (12.0-16.0); TEMP CORR TO 98.6
[2016-05-07 05:31] LABS: CRITICAL VALUE YES; OXYGEN DEVICE VENTILATOR
[2016-05-07 05:32] LABS: DRAW SITE LT RADIAL; NUMBER OF ARTERIAL PUNCTURES 1; STAT NO; ULNAR PULSE PRESENT; VENT SETTINGS PRVC/AC18/650
[2016-05-07 05:32] LABS: ALKALINE PHOSPHATASE 43 U/L (45-117); ALT (GPT) 24 U/L (12-78); TOTAL BILIRUBIN ADULT 0.8 MG/DL (0.2-1.0)
[2016-05-07 05:43] LABS: FIO2 40 %
--- NOTE | 2016-05-07 06:49 | RADRPT ---
EXAM DATE/TIME: 05/07/2016 05:35 [place] COMPARISON: CHEST SINGLE AP, May 05, 2016, 1:56. INDICATIONS : Respiratory failure. MEDICAL HISTORY : Hypertension. Hypercholesterolemia. Congestive heart failure. A-Fib PE SURGICAL HISTORY : Tonsillectomy. Tracheostomy. ENCOUNTER: Subsequent ACUITY: 3 months PAIN SCORE: Non-responsive. LOCATION: Bilateral chest FINDINGS: Bilateral basilar consolidation again noted. Cardiomegaly. Endotracheal tube and NG tube again seen. EKG leads overlie the chest. CONCLUSION: No significant change has occurred. Bill Zavala MD on May 07, 2016 at 6:47 Board Certified Radiologist. This report was verified electronically.
[2016-05-07] MEDS: ATORVASTATIN 10 MG TAB PO SCH (08:05)
[2016-05-07] MEDS: LINEZOLID 600 MG TAB PO SCH ×2 (08:05→20:34)
[2016-05-07] MEDS: METOCLOPRAMIDE HCL 10 MG/2 ML VIAL IV PUSH SCH ×2 (08:05→20:33)
[2016-05-07] MEDS: METOLAZONE 5 MG TAB NG SCH (08:06)
[2016-05-07] MEDS: ALLOPURINOL 300 MG TAB PO SCH (08:06)
[2016-05-07] MEDS: FENOFIBRATE 48 MG TAB PO SCH (08:06)
[2016-05-07] MEDS: MONTELUKAST SODIUM 10 MG TAB PO SCH (08:06)
[2016-05-07] MEDS: SODIUM CHLORIDE 0.9% FLUSH 5 ML FLUSH FLUSH PRN (08:06)
[2016-05-07] MEDS: MICONAZOLE NITRATE 2% CREAM 15 GM TOP SCH ×2 (08:07→20:21)
[2016-05-07] MEDS: NYSTATIN 100,000 U/GM PWD 15 GM BTL TOPICAL SCH ×2 (08:07→20:34)
[2016-05-07] MEDS: SODIUM CHLORIDE 0.9% FLUSH 5 ML FLUSH FLUSH SCH ×2 (08:07→20:34)
[2016-05-07] MEDS: CHLORHEXIDINE 0.12% (ORAL KIT) 15 ML CUP MT SCH ×2 (08:12→20:33)
[2016-05-07] MEDS: RESP: BUDESONIDE 0.5 MG/2 ML NEB NEB SCH ×2 (08:19→19:55)
[2016-05-07] MEDS: RESP: COLISTIN 150 MG VIAL NEB SCH ×3 (08:20→22:16)
[2016-05-07 08:58] LABS: SCAN/DIFF AUTO DIFF CONFIRMED
--- NOTE | 2016-05-07 11:15 | HHI.IDPN ---
Subjective Subjective Remarks Notes reviewed D/W RN Fio2 down to 0.4 BP ok Occ low grade temps On sedation Redness on chest has resolved US RUE, no DVT BC negative repeat sputum with Providencia UC with Proteus Antibiotics Zerbaxa IV Zyvox Colistin nebs Diflucan IV Lines PICC RUE Past Medical History Chronic Respiratory Failure s/p Tracheostomy 4 years ago Morbid Obesity w/ BMI 67.6 Atrial fibrillation Pulmonary embolism 4 years ago Anxiety CHF (Echo 06/07/2014 w/ EF 40-45%; ECHO 08/2015 showing a grossly normal systolic function) HTN Hypothyroidism Past Surgical History Tracheostomy Tonsillectomy Allergies: Coded Allergies: No Known Allergies (Unverified , 09/16/15) Objective . Vital Signs Date Time Temp Pulse Resp B/P Pulse Ox O2 Delivery O2 Flow Rate FiO2 05/07/16 10:32 92 40 05/07/16 10:00 73 05/07/16 08:21 89 40 05/07/16 08:00 73 05/07/16 08:00 40 05/07/16 08:00 98.5 73 18 131/74 90 05/07/16 06:00 77 05/07/16 04:21 92 40 05/07/16 04:00 99.1 72 18 127/73 90 05/07/16 04:00 60 05/07/16 04:00 72 05/07/16 02:00 77 05/07/16 00:18 93 50 05/07/16 00:00 98.8 78 18 124/75 92 05/07/16 00:00 78 05/07/16 00:00 60 05/06/16 22:00 79 05/06/16 20:20 92 55 05/06/16 20:00 60 05/06/16 20:00 85 05/06/16 20:00 100.0 85 18 122/74 92 05/06/16 18:00 82 05/06/16 16:00 81 05/06/16 16:00 60 05/06/16 16:00 99.1 81 18 124/77 94 05/06/16 15:24 89 65 05/06/16 14:00 81 05/06/16 12:00 92 05/06/16 12:00 65 05/06/16 12:00 99.2 92 18 111/77 92 05/06/16 11:44 91 65 05/06/16 05/06/16 05/07/16 15:00 23:00 07:00 Intake Total 992 ml 1391 ml Output Total 1845.0 ml 50.0 ml 3150 ml Balance -853.0 ml -50.0 ml -1759 ml IV Total 806 ml 1108 ml Tube Feeding 86 ml 133 ml Tube Irrigant 100 ml 150 ml Output Urine Total 1600 ml 3150 ml Tube Feeding Residual Discard 245.0 ml 50.0 ml # Bowel Movements 0 0 . Laboratory Tests Test 05/06/16 05/07/16 03:37 04:30 White Blood Count 17.3 TH/MM3 14.9 TH/MM3 Red Blood Count 4.93 MIL/MM3 5.00 MIL/MM3 Hemoglobin 11.3 GM/DL 11.6 GM/DL Hematocrit 37.3 % 37.8 % Mean Corpuscular Volume 75.6 FL 75.5 FL Mean Corpuscular Hemoglobin 22.9 PG 23.2 PG Mean Corpuscular Hemoglobin 30.3 % 30.8 % Concent Red Cell Distribution Width 19.4 % 19.8 % Platelet Count 216 TH/MM3 212 TH/MM3 Mean Platelet Volume 9.1 FL 9.0 FL Neutrophils (%) (Auto) 93.9 % 94.1 % Lymphocytes (%) (Auto) 3.2 % 3.8 % Monocytes (%) (Auto) 2.8 % 1.9 % Eosinophils (%) (Auto) 0.0 % 0.0 % Basophils (%) (Auto) 0.1 % 0.2 % Neutrophils # (Auto) 16.2 TH/MM3 14.0 TH/MM3 Lymphocytes # (Auto) 0.6 TH/MM3 0.6 TH/MM3 Monocytes # (Auto) 0.5 TH/MM3 0.3 TH/MM3 Eosinophils # (Auto) 0.0 TH/MM3 0.0 TH/MM3 Basophils # (Auto) 0.0 TH/MM3 0.0 TH/MM3 CBC Comment AUTO DIFF AUTO DIFF Differential Total Cells 100 Counted Neutrophils % (Manual) 96 % Band Neutrophils % 2 % Monocytes % 1 % Neutrophils # (Manual) 17.1 TH/MM3 Myelocytes 1 % Differential Comment FINAL DIFF AUTO DIFF MANUAL CONFIRMED Platelet Estimate NORMAL Platelet Morphology Comment NORMAL Stomatocytes 1+ Laboratory Tests Test 05/06/16 05/07/16 03:37 04:30 Sodium Level 146 MEQ/L 148 MEQ/L Potassium Level 3.6 MEQ/L 4.2 MEQ/L Chloride Level 100 MEQ/L 106 MEQ/L Carbon Dioxide Level 37.5 MEQ/L 34.8 MEQ/L Anion Gap 9 MEQ/L 7 MEQ/L Blood Urea Nitrogen 60 MG/DL 67 MG/DL Creatinine 1.00 MG/DL 1.07 MG/DL Estimat Glomerular Filtration 87 ML/MIN 80 ML/MIN Rate Random Glucose 180 MG/DL 243 MG/DL Calcium Level 9.2 MG/DL 9.8 MG/DL Total Bilirubin 0.7 MG/DL 0.8 MG/DL Aspartate Amino Transf 11 U/L 12 U/L (AST/SGOT) Alanine Aminotransferase 21 U/L 24 U/L (ALT/SGPT) Alkaline Phosphatase 46 U/L 43 U/L Total Protein 6.6 GM/DL 6.7 GM/DL Albumin 2.7 GM/DL 2.9 GM/DL Phosphorus Level 3.1 MG/DL Magnesium Level 2.5 MG/DL Microbiology Date/Time Procedure Status Source Growth 05/04/16 15:49 Gram Stain - Final Complete Sputum Endotracheal 05/04/16 15:49 Sputum Culture - Final Complete Providencia Stuartii 05/04/16 15:55 Aerobic Blood Culture - Preliminary Resulted Blood Line NO GROWTH IN 3 DAYS 05/04/16 15:55 Anaerobic Blood Culture - Preliminary Resulted Blood Line NO GROWTH IN 3 DAYS 05/05/16 07:30 Urine Culture - Final Complete Urine Clean Catch Proteus [facility] Chest X-Ray 05/05/16 0600 Signed Impressions: Service Date/Time: Thursday, May 05, 2016 01:56 - CONCLUSION: Improved aeration bilaterally particularly in the left upper lobe. Tube and catheter are stable. Amador Brock MD Chest X-Ray 05/03/16 0000 Signed Impressions: Service Date/Time: Tuesday, May 03, 2016 06:40 - CONCLUSION: Increasing bilateral diffuse pulmonary infiltrates compared to the prior study. Lázaro Frankel MD Upper Extremity Ultrasound 05/02/16 0000 Signed Impressions: Service Date/Time: April 20:51 - CONCLUSION: No DVT. Garcia Lujan MD Abdomen X-Ray 04/29/16 0000 Signed Impressions: Service Date/Time: Friday, April 29, 2016 07:12 - CONCLUSION: Suspect Dobbhoff tube in the distal stomach. Garcia Lujan MD Physical Exam GENERAL:sedated, on the vent, not in distress. SKIN: Warm and moist. No generalized rash. No cyanosis noted. HEAD: Atraumatic. Normocephalic. No temporal or scalp tenderness. EYES: [place] conjunctivae. Pupils equal round and reactive. No scleral icterus. Has mild conjunctival injection bilaterally. ENT: Nose without purulent drainage. Moist mucosa. Has a lot of oral secretions. NECK: Short and obese, has new trach, site ok. Supple, no meningeal signs. CARDIOVASCULAR: Regular rate and rhythm. Distant heart sounds. The area of erythema with heat on his R shoulder and goes to his R breast, as well as redness in his R upper arm above his PICC has resolved RESPIRATORY: Decreased BS bilaterally. GASTROINTESTINAL: Abdomen soft, morbidly obese, nt tender, not distended. Bowel sounds present and hypoactive. MUSCULOSKELETAL: Extremities without clubbing, cyanosis. Has mild pitting edema. NEUROLOGICAL: Sedated LINE: PICC in RUE, site ok, : [place] in place, urine looks clear Assessment & Plan Remarks IMPRESSION Chronic respiratory failure, has trach, has HCAP - C/S with MDR PSAE MDR PSAE PNA, now ? new HCAP vs component of fluid overload. Fevers, better Leukocytosis, due to PNA, and partly due to steroids Has an area of cellulitis in his RUE and R chest - rebecca - BC negative - no DVT on US RUE Morbid obesity Hx PE Candiduria, UA only with 18 WBC, likely colonization RECOMMENDATION Stop Zerbaxa Continue colistin nebs Continue Zyvox to complete Rx for the cellulitis on his chest Continue Diflucan Use Rocephin to cover Proteus and Providencia Monitor temps Follow C/S Monitor progress D/W Dana Rollins MD May 07, 2016 11:15
[2016-05-07] MEDS ORDERED: cefTRIAXone INJ 2,000 MG in SODIUM CHLORIDE 0.9% INJ 100 ML IV SCH (12:00)
[2016-05-07] MEDS: INSULIN DETEMIR 100 UNITS/ML VIAL SQ SCH ×2 (12:00→20:33)
--- NOTE | 2016-05-07 12:58 | HHI.CCPN ---
Subjective Remarks/Hospital Course 31 year old morbidly obese (BMI 68) male with chronic respiratory failure s/p tracheostomy 4 years ago, atrial fibrillation and pulmonary embolism on Xarelto , COPD, CHF and h/o HTN. He presented from [facility] with low oxygen saturation apparently his oxygen saturation was 82% on RA. He was placed back on 6L of oxygen via his trach mask and given a breathing treatment, initially improved however he started drifting back to low 80s again. Chest x-ray showed bibasilar infiltrates and pulmonary edema. Patient was admitted to the [facility] and was started on IV steroids IV vancomycin and Zosyn and Levaquin for healthcare associated pneumonia. After starting ACV, patient was more awake but there was a significant amount of air leak around his tracheostomy. Patient has a Shiley 6.0 Proximal XLT, but the pilot boat operator balloon had been cut off. General surgery consulted for trach exchange in a.m. Solu-Medrol increased to 60 mg IV every 6 hours. 04/27: Afebrile. Tmax 97.6. Overnight the patient required increasing O2 concentrations. Patient's trach cuff required reinflation 2 overnight, maintaining volumes 400-500 cc per breath. The patient's FiO2 currently is 1.0 , O2 sat 94-96%. The patient received PICC line yesterday secondary to difficult IV access and nutrition requirements, will begin PPN tonight. The patient remains optimally sedated for ventilator's synchrony, and minimization of agitation. Currently requirements include propofol Versed and fentanyl infusions. 04/28: Tmax 98.7. The patient still requires and increasing O2 concentrations, Flolan initiated last night FiO2 was significantly decreased to 60% ,however this a.m. patient's O2 sat remained mid 80s with a requirement of increasing PEEP to 11 and FiO2 return to 100% currently aggressively utilizing recruitment maneuvers to decrease O2 and PEEP requirements for transfer to the OR tomorrow for exchange of tracheostomy apparatus. The patient continues to be sedated for patient safety and ventilator synchrony. 04/29:Tmax 100.0. Overnight the patient was diuresed approximately 5 L. The patient continues on a Lasix infusion. The FiO2 was significantly decrease post diuresis to 0.65, the patient continues on a PEEP of 12 with O2 saturations 93-94%. Successful placement of Dobbhoff tube, early this a.m. we' ll begin tube feeds this a.m. and discontinue PPN. General Surgery contacted this a.m. regarding tracheostomy exchange for scheduled time. Patient's Lovenox is held for OR, will place on heparin infusion, procedures time is scheduled for later today. The patient continues to be on sedation for safety to prevent dislodgment out tracheostomy tube. Radiological imaging studies reveal a loop and PICC line, will reconsult PICC team. 04/30: Afebrile. It is felt at this time by General Surgery, that the airway is secure as evidenced by lung volumes have been maintained for the last 3 days., Will attempt to repair pilot boat operator balloon, if unsuccessful in attempts at repairing pilot boat operator balloon, general surgery would consider exchanging the Shiley 60 XLT trach on an elective basis,when the patient was no longer critically ill. It is felt at this time, if tracheostomy was exchanged at this point in time the risks outweigh the benefit, and could result and possible . Attempts were made to decrease the PEEP to 8 , this afternoon and within an half an hour, the patient went into jacques pulmonary edema, copious pink frothy some sputum was noted to be emanating from the tracheostomy tube. O2 sat saturations dropped into the 60s,acutely. The patient was bolused with 80 mg of Lasix and 500 mg of Diamox and the PEEP was increased to 12. The patient's oxygenation improved with manual Ambu bag being and the PEEP of 12. The PICC line was power flushed early this morning repeat x-ray revealed the loop and line resolved, no resistance noted. 05/01: Tmax 101.0. The patient remains sedated fentanyl and propofol infusion. Pulmonary edema resolved, last evening. The patient continues on Lasix infusion , for continued diuresis. The patient has been able to maintain a O2 saturation of 94%, with FiO2 of 0.80 and PEEP of 12. Specialty bed ordered, due to patient's immobility and body habitus, plans to transfer patient to specialty bed with close control and monitoring of tracheostomy. 05/02: Tmax 100.3. The patient was transferred to a specialty bed yesterday . Today, the patient became acutely hypoxemic with a large cuff leak, unable to transition with previous methods of inflating balloon. O2 sat 80s with PEEP of 14, FIO2 100% Dr. Macias, Dr. Arrieta present. Anesthesia notified for back up, Dr. Magdaleno Walton Anesthesiologist, and myself at bedside. Glidescope intubation performed, Mallampati grade 2 noted upon visualization. O2 sat 90%, 6.[address] by Dr[address] Corbett. Bilateral breath sounds equal, distant. Copious pink frothy fluid emanating from trach consistent with continuous pulmonary edema. Lung recruitment approximately 4 hours from O2 sat 87% to obtain O2 sat of 92. Today patient noted to have diuretic resistance, additional diuretics provided. Family updated on above events. 05/03: Tmax 101.5. FiO2 remains at 90%. Urine output excellent more than 8 L on Lasix infusion. Patient is status post emergency trach exchange at bedside by Dr. Macias, due to acute hypoxemia and large cuff leak (notes from yesterday reviewed). Condition remains critical 05/04: Remains critically ill. Tmax 102. Urine output approximately 8 L on Lasix infusion but bicarbonate climbing. Start on Diamox for 3 days and DC Lasix gtt, start Bumex 2 mg IV q6. 05/05: Remains intubated sedated critically ill. Currently on FiO2 60% and PEEP of extreme Flolan at 50 ng. I will start weaning Flolan gradually. Afebrile now even though white count slightly increased to 17.7 from 15.5 yesterday. Evidence of metabolic alkalosis, decrease Bumex to 1 mg IV every 6 hours and continue Diamox Objective Vital Signs Date Time Temp Pulse Resp B/P Pulse Ox O2 Delivery O2 Flow Rate FiO2 05/07/16 12:00 76 05/07/16 12:00 98.7 18 135/78 91 05/07/16 12:00 40 Intake and Output 05/06/16 05/06/16 05/07/16 08:00 16:00 00:00 Intake Total 676 ml 992 ml 809 ml Output Total 1595.0 ml 1600 ml 1450.0 ml Balance -919.0 ml -608 ml -641.0 ml Result Diagram: 05/07/16 0430 05/07/16 0430 Other Results Microbiology Date/Time Procedure Status Source Growth 05/04/16 15:49 Gram Stain - Final Complete Sputum Endotracheal 05/04/16 15:49 Sputum Culture - Final Complete Providencia Stuartii 05/05/16 07:30 Urine Culture - Final Complete Urine Clean Catch Proteus Mirabilis Laboratory Tests Test 05/07/16 05:20 Blood Gas Puncture Site LT RADIAL Blood Gas Patient Temperature 98.6 Blood Gas HCO3 33 mmol/L (22-26) Blood Gas Base Excess 8.3 mmol/L (-2-2) Blood Gas Oxygen Saturation 91 % (90-100) Arterial Blood pH 7.42 (7.380-7.420) Arterial Blood Partial 52 mmHg (38-42) Pressure CO2 Arterial Blood Partial 74 mmHg Pressure O2 (61-120) Arterial Blood Oxygen Content 15.4 Vol % (12.0-20.0) Arterial Blood 1.3 % (0-4) Carboxyhemoglobin Arterial Blood Methemoglobin 1.3 % (0-2) Blood Gas Hemoglobin 12.1 G/DL (12.0-16.0) Oxygen Delivery Device VENTILATOR Blood Gas Ventilator Setting PRVC/AC18/650 Blood Gas Inspired Oxygen 40 % Imaging Last 24 hours Impressions Chest X-Ray 05/01/16 06 Signed Impressions: Service Date/Time: Sunday, May 01, 2016 02:11 - CONCLUSION: Overall image quality is limited due to patient body habitus. Again suspected the bilateral lower lung infiltrates. Jeremiah Tuttle MD Last 24 hours Impressions Chest X-Ray 04/29/16 0600 Signed Impressions: Service Date/Time: Friday, April 29, 2016 03:30 - CONCLUSION: 1. Stable bibasilar consolidative infiltrates. 2. Some coiling of the PICC line since prior exam with the tip of the PIC line now at the level of the origin of the superior vena cava. Jeremiah Tuttle MD Abdomen X-Ray 04/29/16 0000 Signed Impressions: Service Date/Time: Friday, April 29, 2016 07:12 - CONCLUSION: Suspect Dobbhoff tube in the distal stomach. Garcia Lujan MD Last 24 hours Impressions Chest X-Ray 04/27/16 0600 Signed Impressions: Service Date/Time: Wednesday, April 27, 2016 03:51 - CONCLUSION: 1. Tracheostomy tube in place. No pneumothorax. 2. Pulmonary venous congestion with some bibasilar infiltrates. Lázaro Frankel MD Objective Remarks GENERAL: Lying in bed, on mech vent via trach in situ, sedated due to severe hypoxia, but opens eyes SKIN: Warm and dry. HEAD: Normocephalic. Atraumatic. EYES: PERRL. No scleral icterus. No injection or drainage. ENT: No nasal drainage. Oral and nasal mucosa moist NECK: Shiley 6.0 Proximal XLT, (new trach placed 05/02/16) CARDIOVASCULAR: Regular rate and rhythm without murmurs, gallops, or rubs. Distant heart sounds RESPIRATORY: On mechanical ventilation via tracheostomy. Air entry decreased bilaterally at bases. No wheezing, diminished throughout bilaterally. GASTROINTESTINAL: Abdomen soft, non-tender, obese, normal BS. Tube feeds infusing. NEURO: RASS -2 on mechanical ventilation, on fentanyl, Versed and propofol infusion, to maintain ventilator synchrony. Opens eyes and weakly follows commands Procedures Shiley 6.0 XLT tracheostomy exchange under visual direction by general surgery and with GlideScope, by anesthesiologist. Date of Insertion: Apr 24, 2016 Date of Insertion: Apr 26, 2016 Line: PICC Side: Right A/P Assessment and Plan ASSESSMENT Acute hypercapnic and hypoxemic respiratory failure Healthcare associated pneumonia MDR Pseudomonas Sepsis/persistent fever CHF exacerbation CO2 narcosis Tracheostomy pilot boat operator balloon damage -status post exchange with new Shiley 6.0 Proximal XLT 05/02/16) Chronic Respiratory Failure s/p Tracheostomy 4 years ago (Shiley 6.0 Proximal XLT) COPD/obesity hypoventilation syndrome Morbid Obesity BMI 67 History of pulmonary embolism 4 years ago Chronic atrial fibrillation Anxiety CHF (Echo 2013 EF 40-45%; ECHO 08/2015 showing a grossly normal systolic function) Hypertension Hypothyroidism PLAN NEURO: CO2 narcosis Anxiety -Maintain optimal sedation, with RASS -2, due to severe hypoxemic respiratory failure for ventilator synchrony. -Continue Propofol , Versed and Fentanyl. -Sedation vacation if tolerated without hypoxia. (Currently avoid due to high vent settings, PEEP and severe hypoxia) RESP: Acute hypercapnic and hypoxemic respiratory failure Healthcare associated pneumonia Tracheostomy pilot boat operator balloon damage (Shiley 6.0 Proximal XLT) s/p new trach placement 05/02 Chronic Respiratory Failure s/p Tracheostomy 4 years ago COPD/obesity hypoventilation syndrome History of pulmonary embolism 4 years ago Leukocytosis Pulmonary edema -Continue mechanical ventilation PRVC TV 650 iT 1.5, PEEP 16 FiO2 .40, Titrate to keep SaO2 >88% -Flolan initiated 04/27 at maximum doses 50 ng, yocasta off -Healthcare associated pneumonia (MDRO) is being treated with IV Vancomycin, Zerbaxa and Colistin nebs. IV Diflucan for heather UTI. ID following -Sputum culture revealed Pseudomonas MDR -DuoNeb every 4 hours scheduled -Pulmicort BID (home med) -Continue IV Solu-Medrol to 60 mg every 6 hour -Therapeutic Lovenox 150 mg every 12 hours -Chest x-ray bibasilar infiltrates unchanged CV: CHF exacerbation Pulmonary edema Chronic atrial fibrillation -Bumex 1 mg IV every 6 hours -Diamox 500 milligram IV daily for 3 days starting 05/04 -Metolazone 5 mg po daily -A. fib rate controlled -Therapeutic Lovenox 150 mg twice a day GI: Super morbid obesity with BMI of 68 -Tube feeds Glucerna 30/hr -IV Protonix IV -SSI per ICU protocol - start Levemir : -Monitor potassium, phosphorus and magnesium closely -Scheduled doses of potassium -Monitor renal function closely. -Diuretic resistance . see new orders under CV -Milan catheter -Change today -Urine culture revealed Heather-, Fluconazole (Day 1) -Strict I&O ID: Healthcare associated pneumonia Sepsis MDRO Possible cellulitis right arm and fast Leukocytosis Recurrent fever -Continue IV vancomycin, Zebaxa (Day 5 )and Fluconazole (Day 3). Continue colistin nebs. Single dose of Zyvox given by ID -Blood urine and blood culture NGTD. Repeat blood and urine culture today -Wound culture Pseudomonas MDR -Sputum culture-Pseudomonas MDR-colistin inhalation -ID consulted, follow-up recommendations -Blood and urine cx neg on 05/03. Send sputum culture HEME: History of PE on chronic anticoagulation with Xarelto Leukocytosis -Monitor CBC, CMP, coags -Xarelto for PE 4 yrs ago. -Hold Xarelto. -Changed to Lovenox 150 mg twice a day ENDO: Hypothyroidism -Electrolyte replacement protocol -Continue levothyroxine 25 mcgs IV daily PROPH: -Bilateral lower extremity SCDs. Lovenox DVT prophylaxis. IV Protonix for GI prophylaxis LINES: - PICC line (day 10) RUE No DVT on US Critical Care: The total critical care time was 35 minutes. Time to perform other separately billable procedures was not included in the critical care time. Adin Dobson MD May 07, 2016 12:58
--- NOTE | 2016-05-07 16:05 | HHI.FPPN ---
Subjective Remarks No acute events. O2 status has improved, now with FiO2 of 40 with 91% O2 saturation. (Joshua Morgan MD R2) Objective Vitals Vital Signs Date Time Temp Pulse Resp B/P Pulse Ox O2 Delivery O2 Flow Rate FiO2 05/07/16 15:14 91 40 05/07/16 12:00 76 05/07/16 12:00 98.7 76 18 135/78 91 05/07/16 12:00 40 05/07/16 10:32 92 40 05/07/16 10:00 73 05/07/16 08:21 89 40 05/07/16 08:00 73 05/07/16 08:00 40 05/07/16 08:00 98.5 73 18 131/74 90 05/07/16 06:00 77 05/07/16 04:21 92 40 05/07/16 04:00 99.1 72 18 127/73 90 05/07/16 04:00 60 05/07/16 04:00 72 05/07/16 02:00 77 05/07/16 00:18 93 50 05/07/16 00:00 98.8 78 18 124/75 92 05/07/16 00:00 78 05/07/16 00:00 60 05/06/16 22:00 79 05/06/16 20:20 92 55 05/06/16 20:00 60 05/06/16 20:00 85 05/06/16 20:00 100.0 85 18 122/74 92 05/06/16 18:00 82 05/06/16 16:00 81 05/06/16 16:00 60 05/06/16 16:00 99.1 81 18 124/77 94 I/O 05/06/16 05/06/16 05/06/16 05/07/16 05/07/16 05/07/16 07:00 15:00 23:00 07:00 15:00 23:00 Intake Total 676 ml 992 ml 1391 ml Output Total 1350 ml 1845.0 ml 50.0 ml 3150 ml Balance -674 ml -853.0 ml -50.0 ml -1759 ml IV Total 552 ml 806 ml 1108 ml Tube Feeding 74 ml 86 ml 133 ml Tube Irrigant 50 ml 100 ml 150 ml Output Urine Total 1350 ml 1600 ml 3150 ml Tube Feeding Residual Discard 245.0 ml 50.0 ml # Bowel Movements 0 0 0 (Joshua Morgan MD R2) Result Diagram: 05/07/1642905/07/16429 Objective Remarks GENERAL: On mechanical ventilation, NG tube in place, no distress. SKIN: Warm and dry. No rashes or lesions. HEAD: Normocephalic. Atraumatic. ENT: No nasal drainage. Tracheotomy site is clean and dry without drainage. NECK: No JVD. CARDIOVASCULAR: Distant heart sounds. Regular rate and rhythm without murmurs, gallops, or rubs. Peripheral pulses 2+. RESPIRATORY: On mechanical ventilation. Clear to auscultation bilaterally. No rales or rhonchi. GASTROINTESTINAL: Abdomen soft, obese, hypoactive BS. Unable to assess for organomegaly or masses. MUSCULOSKELETAL: Lower extremity edema. NEURO: Awake, somewhat alert, under sedation. Answers questions with head nods. (Joshua Morgan MD R2) Date of Insertion: Apr 24, 2016 (Joshua Morgan MD R2) Date of Insertion: Apr 26, 2016 Line: PICC Side: Right (Joshua Morgan MD R2) A/P Assessment and Plan Assessment and Plan Acute hypercapnic/hypoxemic respiratory failure Healthcare associated pneumonia with MDR Pseudomonas UTI with proteus mirabilis Sepsis CHF exacerbation CO2 narcosis Chronic Respiratory Failure s/p Tracheostomy 4 years ago (Shiley 6.0 Proximal XLT) COPD/obesity hypoventilation syndrome Morbid Obesity BMI 67 History of pulmonary embolism 4 years ago Chronic atrial fibrillation Anxiety CHF (Echo 2013 EF 40-45%; ECHO 08/2015 showing grossly normal systolic function) Hypertension Hypothyroidism PLAN NEURO: CO2 narcosis Anxiety -Maintain optimal sedation for ventilator synchrony. -Continue Propofol ,Versed and Fentanyl. RESP: Acute hypercapnic/hypoxemic respiratory failure Healthcare associated pneumonia New trach placement 05/02 Chronic Respiratory Failure s/p Tracheostomy 4 years ago COPD/obesity hypoventilation syndrome History of pulmonary embolism 4 years ago Pulmonary edema -Continue mechanical ventilation PRVC TV 650 iT 1.5, PEEP 16 FiO2 .40 (improved ), Titrate to keep SaO2 >88% -Flolan initiated 04/27 at maximum doses 50 ng, yocasta off -Healthcare associated pneumonia (MDRO) is being treated with IV Rocephin (05/07 - ), Colistin nebs. IV Diflucan for heather UTI. ID following -Sputum culture revealed Pseudomonas MDR, providencia stuartii -DuoNeb every 4 hours scheduled -Pulmicort BID (home med) -Continue IV Solu-Medrol to 60 mg every 6 hour -Therapeutic Lovenox 150 mg every 12 hours -Chest x-ray bibasilar infiltrates unchanged CV: CHF exacerbation Pulmonary edema Chronic atrial fibrillation -Bumex 1 mg IV decreased to every 8 hours due to high output and hypernatremia. -Metolazone 5 mg po daily -A. fib rate controlled -Therapeutic Lovenox 150 mg twice a day GI: Super morbid obesity with BMI of 68 -Tube feeds Glucerna 30/hr, residuals improved -IV Protonix IV -SSI per ICU protocol - start Levemir, 10 units bid. : -Monitor potassium, phosphorus and magnesium -Scheduled doses of potassium -Monitor renal function -Milan catheter -Urine culture revealed Heather-, Fluconazole -Strict I&O ID: Healthcare associated pneumonia Sepsis MDRO Possible cellulitis right arm and fast Leukocytosis Recurrent fever -IV rocephin (05/07 - ), colistin nebs, Zyvox until 05/13. -Blood urine and blood culture NGTD. Repeat blood and urine culture today -Wound culture Pseudomonas MDR -Sputum culture-Pseudomonas MDR-colistin inhalation -ID consulted, follow-up recommendations -Blood cx from . negative. Urine culture positive for proteus mirabilis. HEME: History of PE on chronic anticoagulation with Xarelto Leukocytosis -Monitor CBC, CMP, coags -Xarelto for PE 4 yrs ago. -Hold Xarelto. -Changed to Lovenox 150 mg twice a day ENDO: Hypothyroidism -Electrolyte replacement protocol -Continue levothyroxine 25 mcgs IV daily PROPH: -Bilateral lower extremity SCDs. Lovenox DVT prophylaxis. IV Protonix for GI prophylaxis LINES: - PICC line (day 10) Discharge Planning Patient will need to be weaned from mechanical ventilation with stable clinical status. Hopeful for patient to be able to return to long-term rehab facility. ( Joshua Morgan MD R2) Attending Attestation Patient seen and examined. Case reviewed and discussed. Agree with plan of care as discussed with me and documented in the resident note. (Bernice Garcia MD) Joshua Morgan MD R2 May 07, 2016 16:05 Bernice Garcia MD May 10, 2016 10:39 The total critical care time was 35 minutes. Time to perform other separately billable procedures was not included in the critical care time. Discharge Planning Patient will need to be weaned from mechanical ventilation with stable clinical status. Hopeful for patient to be able to return to long-term rehab facility. Joshua Morgan MD R2 May 07, 2016 16:05
[2016-05-07] MEDS: FLUCONAZOLE 100 MG TAB PO SCH (17:12)
[2016-05-08] VITALS (22 sets, daily range): BP systolic 126–163; BP diastolic 73–81; PULSE 69–96; RESP 18–22; TEMP 97.9–99.6; O2SAT 89–98
[2016-05-08] MEDS: MEDIUM DOSE INSULIN NOVOLIN REGULAR SUPPLEMENTAL SCALE SQ SCH ×6 (00:01→20:34)
[2016-05-08] MEDS: methylPREDNISolone SOD SUCC 40 MG/1 ML VIAL IV PUSH SCH ×4 (00:01→16:27)
[2016-05-08] MEDS: POTASSIUM CHLORIDE 20 MEQ PWD PACKET NG SCH ×3 (00:01→11:00)
[2016-05-08] MEDS: PROPOFOL 1000 MG/100 ML INJ 100 ML IV SCH ×10 (00:25→20:35)
[2016-05-08] MEDS: RESP: ALBUTEROL 2.5 MG/IPRATROPIUM 0.5 MG NEB (SCH) NEB ×4 (02:56→20:03)
[2016-05-08] MEDS: ENOXAPARIN SODIUM 150 MG/ML SYRINGE SQ SCH ×2 (04:18→16:26)
[2016-05-08] MEDS: PANTOPRAZOLE SODIUM 40 MG VIAL IV PUSH SCH ×2 (04:19→13:56)
[2016-05-08 05:07] LABS: AUTOMATED NEUTROPHIL # 15.8 TH/MM3 (1.8-7.7); BASOPHIL % 0.1 % (0.0-2.0); HEMATOCRIT 39.6 % (39.0-51.0); LYMPH % 3.1 % (9.0-44.0); LYMPHOCYTE # 0.5 TH/MM3 (1.0-4.8); MEAN CELL VOLUME 75.6 FL (80.0-100.0); MEAN CORPUSCULAR HEMOGLOBIN 22.8 PG (27.0-34.0); MEAN CORPUSCULAR HGB CONC 30.2 % (32.0-36.0); MONO % 2.1 % (0.0-8.0); NEUT % 94.7 % (16.0-70.0); PLATELET COUNT 188 TH/MM3 (150-450); RED BLOOD COUNT 5.24 MIL/MM3 (4.50-5.90); RED CELL DISTRIBUTION WIDTH 19.6 % (11.6-17.2); WHITE BLOOD COUNT 16.7 TH/MM3 (4.0-11.0)
[2016-05-08] MEDS: LEVOTHYROXINE SODIUM 100 MCG VIAL IV PUSH SCH (05:09)
[2016-05-08] MEDS: BUMETANIDE INJ 1 MG/4 ML VIAL IV PUSH SCH (05:09)
[2016-05-08 05:11] LABS: HEMO FLAGS AUTO DIFF
[2016-05-08 05:23] LABS: BLOOD GAS CARBOXYHEMOGLOBIN 1.1 % (0-4); BLOOD GAS HCO3 31 mmol/L (22-26); BLOOD GAS METHEMOGLOBIN 1.4 % (0-2); BLOOD GAS O2 HGB SATURATION 91 % (90-100); BLOOD GAS PCO2 59 mmHg (38-42); BLOOD GAS PO2 83 mmHg (61-120); BLOOD GAS TOTAL HGB 12.4 G/DL (12.0-16.0); TEMP CORR TO 98.6
[2016-05-08 05:23] LABS: ALKALINE PHOSPHATASE 45 U/L (45-117); ALT (GPT) 25 U/L (12-78); ANION GAP 6 MEQ/L (5-15); AST (GOT) 14 U/L (15-37); BLOOD UREA NITROGEN 81 MG/DL (7-18); CHLORIDE 109 MEQ/L (98-107); GLOMERULAR FILTRATION RATE 72 ML/MIN (>89); MAGNESIUM 2.6 MG/DL (1.5-2.5); POTASSIUM 5.4 MEQ/L (3.5-5.1); SODIUM (NA) 148 MEQ/L (136-145); TOTAL BILIRUBIN ADULT 0.8 MG/DL (0.2-1.0)
[2016-05-08 05:24] LABS: CRITICAL VALUE YES; FIO2 90 %; OXYGEN DEVICE VENTILATOR; VENT SETTINGS PRVC/AC18/650/14PEEP
[2016-05-08 05:25] LABS: DRAW SITE LT RADIAL; NUMBER OF ARTERIAL PUNCTURES 1; STAT NO; ULNAR PULSE PRESENT
--- NOTE | 2016-05-08 05:52 | RADRPT ---
EXAM DATE/TIME: 05/08/2016 04:01 [facility] COMPARISON: CHEST SINGLE AP, May 07, 2016, 5:35. INDICATIONS : Respiratory distress. MEDICAL HISTORY : Hypertension. Hypercholesterolemia. Congestive heart failure. A-Fib. PE. SURGICAL HISTORY : Tracheostomy. ENCOUNTER: Initial ACUITY: 3 months PAIN SCORE: Non-responsive. LOCATION: Bilateral chest FINDINGS: Lower lobe consolidation and diffuse interstitial prominence again seen. Cardiomegaly. Tracheostomy t ube and NG tube again noted. A right PICC line is noted and the tip courses cephalad overlying the ri ght neck. CONCLUSION: No significant change has occurred. Bill Zavala MD on May 08, 2016 at 5:50 Board Certified Radiologist. This report was verified electronically.
[2016-05-08] MEDS: RESP: BUDESONIDE 0.5 MG/2 ML NEB NEB SCH ×2 (07:45→20:03)
[2016-05-08] MEDS: RESP: COLISTIN 150 MG VIAL NEB SCH ×2 (07:45→15:37)
[2016-05-08 07:54] LABS: PLATELET ESTIMATE SMEAR NORMAL (NORMAL); PLATELET MORPHOLOGY NORMAL (NORMAL); SCAN/DIFF AUTO DIFF CONFIRMED
[2016-05-08] MEDS: ALLOPURINOL 300 MG TAB PO SCH (07:57)
[2016-05-08] MEDS: FENOFIBRATE 48 MG TAB PO SCH (07:57)
[2016-05-08] MEDS: LINEZOLID 600 MG TAB PO SCH ×2 (07:57→20:32)
[2016-05-08] MEDS: MONTELUKAST SODIUM 10 MG TAB PO SCH (07:57)
[2016-05-08] MEDS: ATORVASTATIN 10 MG TAB PO SCH (07:58)
[2016-05-08] MEDS: METOLAZONE 5 MG TAB NG SCH (07:58)
[2016-05-08] MEDS: METOCLOPRAMIDE HCL 10 MG/2 ML VIAL IV PUSH SCH ×2 (07:59→20:32)
[2016-05-08] MEDS: INSULIN DETEMIR 100 UNITS/ML VIAL SQ SCH ×2 (08:00→20:33)
[2016-05-08] MEDS: MICONAZOLE NITRATE 2% CREAM 15 GM TOP SCH ×2 (08:01→20:35)
[2016-05-08] MEDS: NYSTATIN 100,000 U/GM PWD 15 GM BTL TOPICAL SCH ×2 (08:02→20:34)
[2016-05-08] MEDS: SODIUM CHLORIDE 0.9% FLUSH 5 ML FLUSH FLUSH SCH ×2 (08:03→20:33)
[2016-05-08] MEDS: fentaNYL DRIP 250 ML IV SCH ×2 (08:30→18:16)
[2016-05-08] MEDS: CHLORHEXIDINE 0.12% (ORAL KIT) 15 ML CUP MT SCH ×2 (08:30→20:34)
--- NOTE | 2016-05-08 10:01 | HHI.FPPN ---
Subjective Remarks Desaturated last night with bowel movement and turning in bed, required increased FiO2 for support. However, now with improved FiO2, down to 50 this morning, with 16 of PEEP. This morning back at baseline. Responds no when asked if he has any pain. Per the nurse, he is tolerating feeds well. Responding appropriately to questions with yes or no answers. (Joshua Morgan MD R2) Objective Vitals Vital Signs Date Time Temp Pulse Resp B/P Pulse Ox O2 Delivery O2 Flow Rate FiO2 05/08/16 08:00 72 05/08/16 08:00 60 05/08/16 08:00 99.6 96 22 126/73 92 05/08/16 07:45 92 70 05/08/16 06:40 92 70 05/08/16 06:00 83 05/08/16 04:41 89 95 05/08/16 04:19 92 65 05/08/16 04:00 40 05/08/16 04:00 96 05/08/16 04:00 99.1 96 18 149/81 92 05/08/16 02:44 91 65 05/08/16 02:00 88 05/08/16 00:58 92 40 05/08/16 00:00 40 05/08/16 00:00 97.9 86 18 163/81 95 05/08/16 00:00 86 05/07/16 22:26 92 40 05/07/16 22:00 76 05/07/16 20:00 98.4 88 18 151/83 91 05/07/16 20:00 88 05/07/16 20:00 40 05/07/16 19:55 92 40 05/07/16 18:00 86 05/07/16 16:00 99.1 81 18 139/80 90 05/07/16 16:00 40 05/07/16 16:00 81 05/07/16 15:14 91 40 05/07/16 14:00 80 05/07/16 12:00 76 05/07/16 12:00 98.7 76 18 135/78 91 05/07/16 12:00 40 05/07/16 10:32 92 40 I/O 05/07/16 05/07/16 05/07/16 05/08/16 05/08/16 05/08/16 07:00 15:00 23:00 07:00 15:00 23:00 Intake Total 1391 ml 1330 ml 357 ml 840 ml Output Total 3150 ml 1850 ml 700 ml 550 ml Balance -1759 ml -520 ml -343 ml 290 ml IV Total 1108 ml 796 ml 220 ml 444 ml Tube Feeding 133 ml 234 ml 87 ml 296 ml Tube Irrigant 150 ml 300 ml 50 ml 100 ml Output Urine Total 3150 ml 1850 ml 700 ml 550 ml # Bowel Movements 0 1 0 1 (Joshua Morgan MD R2) Result Diagram: 05/08/1642905/08/16429 Objective Remarks GENERAL: Morbidly obese. On mechanical ventilation, NG tube in place, no distress. SKIN: Warm and dry. No rashes or lesions. Cellulitis of right chest wall. HEAD: Normocephalic. Atraumatic. ENT: No nasal drainage. Tracheotomy site is clean and dry without drainage. NECK: No JVD. CARDIOVASCULAR: Distant heart sounds. Regular rate and rhythm without murmurs, gallops, or rubs. Peripheral pulses 2+. RESPIRATORY: On mechanical ventilation. PRVC, FiO2 50%, PEEP 16. Clear to auscultation bilaterally. No rales or rhonchi. GASTROINTESTINAL: Abdomen soft, obese, distant bowel sounds. MUSCULOSKELETAL: Lower extremity edema. NEURO: Awake, somewhat alert, under sedation. Answers questions with head nods. (Joshua Morgan MD R2) Date of Insertion: Apr 24, 2016 (Joshua Morgan MD R2) Date of Insertion: Apr 26, 2016 Line: PICC Side: Right (Joshua Morgan MD R2) A/P Assessment and Plan Assessment and Plan Acute hypercapnic/hypoxemic respiratory failure Healthcare associated pneumonia with MDR Pseudomonas UTI with proteus mirabilis Sepsis CHF exacerbation CO2 narcosis Chronic Respiratory Failure s/p Tracheostomy 4 years ago (Shiley 6.0 Proximal XLT) COPD/obesity hypoventilation syndrome Morbid Obesity BMI 67 History of pulmonary embolism 4 years ago Chronic atrial fibrillation Anxiety CHF (Echo 2013 EF 40-45%; ECHO 08/2015 showing grossly normal systolic function) Hypertension Hypothyroidism PLAN NEURO: answering questions appropriately with yes or no answers CO2 narcosis Anxiety -Maintain optimal sedation for ventilator synchrony. -Continue Propofol ,Versed and Fentanyl. RESP: FiO2 50%, PEEP 16, on PRVC Acute hypercapnic/hypoxemic respiratory failure Healthcare associated pneumonia New trach placement 05/02 Chronic Respiratory Failure s/p Tracheostomy 4 years ago COPD/obesity hypoventilation syndrome History of pulmonary embolism 4 years ago Pulmonary edema -Continue mechanical ventilation PRVC TV 650 iT 1.5, PEEP 16 FiO2 .50, Titrate to keep SaO2 >88% -Flolan discontinued. -Healthcare associated pneumonia (MDRO) is being treated with IV Rocephin (05/07 - ), Colistin nebs. IV Diflucan for dionne UTI. ID following -Sputum culture revealed Pseudomonas MDR, providencia stuartii -DuoNeb every 4 hours scheduled -Pulmicort BID (home med) -Continue IV Solu-Medrol to 60 mg every 6 hour, start tapering -Therapeutic Lovenox 150 mg every 12 hours -Chest x-ray bibasilar infiltrates unchanged CV: CHF exacerbation Pulmonary edema Chronic atrial fibrillation -Bumex 1 mg IV decreased to every 8 hours due to high output and hypernatremia. -Metolazone 5 mg po daily -A. fib rate controlled -Therapeutic Lovenox 150 mg twice a day GI: Super morbid obesity with BMI of 68 -Tube feeds Glucerna 30/hr, tolerating well -IV Protonix IV -SSI per ICU protocol - Levemir, 10 units bid. May need to increase, will monitor blood glucoses. : -Monitor potassium, phosphorus and magnesium -Hold potassium due to high levels, repeat BMP - May benefit from free water through Dobhoff tube for hypernatremia -Monitor renal function -[place] catheter -Urine culture revealed Dionne-, Fluconazole -Strict I&O ID: Healthcare associated pneumonia Sepsis MDRO Possible cellulitis right arm and fast Leukocytosis Recurrent fever -IV rocephin (05/07 - ), colistin nebs for HCAP, Zyvox (for cellulitis) until . -Blood urine and blood culture NGTD. Repeat blood and urine culture today -Wound culture Pseudomonas MDR -Sputum culture-Pseudomonas MDR-colistin inhalation -ID consulted, follow-up recommendations -Blood cx from 05.03 negative. Urine culture positive for proteus mirabilis. HEME: History of PE on chronic anticoagulation with Xarelto Leukocytosis -Monitor CBC, CMP, coags -Xarelto for PE 4 yrs ago. -Hold Xarelto. -Changed to Lovenox 150 mg twice a day ENDO: Hypothyroidism -Electrolyte replacement protocol -Continue levothyroxine 25 mcgs IV daily PROPH: -Bilateral lower extremity SCDs. Lovenox DVT prophylaxis. IV Protonix for GI prophylaxis LINES: - PICC line Discharge Planning Patient will need to be weaned from mechanical ventilation with stable clinical status. Hopeful for patient to be able to return to long-term rehab facility. ( Joshua Morgan MD R2) Attending Attestation Patient seen and examined. Case reviewed and discussed. Agree with plan of care as discussed with me and documented in the resident note. (Bernice Garcia MD) Joshua Morgan MD R2 May 08, 2016 10:01 Bernice Garcia MD May 10, 2016 10:39 05/05 CXR showing improved aeration bilaterally 04/27 Sputum culture growing resistant pseudomonas 05/04 repeat sputum culture pending Zosyn 4.5gm IV q6h (04/24 - dced 04/29), Levaquin 750mg IV q24h (04/24-04/30) - Infectious Disease consulted- started Zerbaxa 1.5g IV Q8H for pseudomonas coverage * Continue Vancomycin 2gm IV q18h * Colistin nebs * Diflucan q24h - Duonebs q2h (3) Yeast UTI Status: Acute Plan: 05/01 Urine CX growing dionne albicans 05/05 repeat UA with large LE, negative nitrite, 182 WBCs; culture pending Continue Diflucan 400 mg IV q24h (4) CHF (congestive heart failure) Status: Chronic Plan: Last ECHO 09/18/2015 showing a grossly normal systolic function with no definitive EF as it was difficult to assess, ECHO on 05/2014 with EF of 40-45% with mildly dilated left atrium 04/25 ECHO was limited due to poor image quality, EF could not be adequately estimated. Systolic function appears to be grossly normal. BNP on admission 419, repeat BNP 151 Critical care actively managing diuresis - Lasix drip discontinued - Bumex 2 mg IV q6h - Diamox for 3 days (5) Atrial fibrillation Status: Chronic Plan: Last EKG in sinus rhythm RRR on exam Home dose of Xarelto 20 mg po daily has been held in anticipation of possible surgery. Currently on Lovenox 150mg SQ Q12H. (6) Tracheostomy present Status: Chronic Plan: S/p urgent/emergent trach exchange 11/3 due to acute hypoxemia and large cuff leak Has been stable since procedure (7) HTN (hypertension) Status: Chronic Plan: BPs stable Hold home BP medications (8) Morbid obesity with BMI of 60.0-69.9, adult Status: Chronic Plan: Likely contributing to chronic respiratory issues (9) Hypothyroidism Status: Chronic Plan: Synthroid 25 mcg IV daily (10) Nutrition, metabolism, and development symptoms Status: Acute Plan: Fluids: none Electrolytes: Monitor and replete when necessary per protocol Nutrition: NG tube, tube feeds with Glucerna 30ml/hr DVT PPx: Therapeutic Lovenox 150mg subq q12h sdw Dr. Garcia Problem Qualifiers (1) CHF (congestive heart failure): Qualified Code: I50.9 - Acute on chronic congestive heart failure, unspecified congestive heart failure type (2) Atrial fibrillation: Qualified Code: I48.2 - Chronic atrial fibrillation (3) HTN (hypertension): Qualified Code: I10 - Essential hypertension (4) Hypothyroidism: Qualified Code: E03.9 - Hypothyroidism, unspecified type Joshua Morgan MD R2 May 08, 2016 10:01
--- NOTE | 2016-05-08 11:19 | HHI.IDPN ---
Subjective Subjective Remarks Notes reviewed D/W RN Temps 99+ FiO2 at 0.5 Awake, following commands Secretions whitish color Redness on chest has resolved US RUE, no DVT BC negative repeat sputum with Providencia UC with Proteus Antibiotics Rocephin Zyvox Colistin nebs Diflucan IV Lines PICC RUE Past Medical History Chronic Respiratory Failure s/p Tracheostomy 4 years ago Morbid Obesity w/ BMI 67.6 Atrial fibrillation Pulmonary embolism 4 years ago Anxiety CHF (Echo 06/07/2014 w/ EF 40-45%; ECHO 08/2015 showing a grossly normal systolic function) HTN Hypothyroidism Past Surgical History Tracheostomy Tonsillectomy Allergies: Coded Allergies: *MDRO Multi-Drug Resistant Organism (Verified Adverse Reaction, Unknown, 05/08/16) XDR Pseudomonas aeruginosa (sputum) - 09/18/15; (sputum & wound) - 04/27/16 Objective . Vital Signs Date Time Temp Pulse Resp B/P Pulse Ox O2 Delivery O2 Flow Rate FiO2 05/08/16 10:39 91 50 05/08/16 10:00 69 05/08/16 08:00 72 05/08/16 08:00 60 05/08/16 08:00 99.6 96 22 126/73 92 05/08/16 07:45 92 70 05/08/16 06:40 92 70 05/08/16 06:00 83 05/08/16 04:41 89 95 05/08/16 04:19 92 65 05/08/16 04:00 40 05/08/16 04:00 96 05/08/16 04:00 99.1 96 18 149/81 92 05/08/16 02:44 91 65 05/08/16 02:00 88 05/08/16 00:58 92 40 05/08/16 00:00 40 05/08/16 00:00 97.9 86 18 163/81 95 05/08/16 00:00 86 05/07/16 22:26 92 40 05/07/16 22:00 76 05/07/16 20:00 98.4 88 18 151/83 91 05/07/16 20:00 88 05/07/16 20:00 40 05/07/16 19:55 92 40 05/07/16 18:00 86 05/07/16 16:00 99.1 81 18 139/80 90 05/07/16 16:00 40 05/07/16 16:00 81 05/07/16 15:14 91 40 05/07/16 14:00 80 05/07/16 12:00 76 05/07/16 12:00 98.7 76 18 135/78 91 05/07/16 12:00 40 05/07/16 05/07/16 05/08/16 15:00 23:00 07:00 Intake Total 1330 ml 357 ml 840 ml Output Total 1850 ml 700 ml 550 ml Balance -520 ml -343 ml 290 ml IV Total 796 ml 220 ml 444 ml Tube Feeding 234 ml 87 ml 296 ml Tube Irrigant 300 ml 50 ml 100 ml Output Urine Total 1850 ml 700 ml 550 ml # Bowel Movements 1 0 1 . Laboratory Tests Test 05/07/16 05/08/16 04:30 04:30 White Blood Count 14.9 TH/MM3 16.7 TH/MM3 Red Blood Count 5.00 MIL/MM3 5.24 MIL/MM3 Hemoglobin 11.6 GM/DL 12.0 GM/DL Hematocrit 37.8 % 39.6 % Mean Corpuscular Volume 75.5 FL 75.6 FL Mean Corpuscular Hemoglobin 23.2 PG 22.8 PG Mean Corpuscular Hemoglobin 30.8 % 30.2 % Concent Red Cell Distribution Width 19.8 % 19.6 % Platelet Count 212 TH/MM3 188 TH/MM3 Mean Platelet Volume 9.0 FL 9.8 FL Neutrophils (%) (Auto) 94.1 % 94.7 % Lymphocytes (%) (Auto) 3.8 % 3.1 % Monocytes (%) (Auto) 1.9 % 2.1 % Eosinophils (%) (Auto) 0.0 % 0.0 % Basophils (%) (Auto) 0.2 % 0.1 % Neutrophils # (Auto) 14.0 TH/MM3 15.8 TH/MM3 Lymphocytes # (Auto) 0.6 TH/MM3 0.5 TH/MM3 Monocytes # (Auto) 0.3 TH/MM3 0.3 TH/MM3 Eosinophils # (Auto) 0.0 TH/MM3 0.0 TH/MM3 Basophils # (Auto) 0.0 TH/MM3 0.0 TH/MM3 CBC Comment AUTO DIFF AUTO DIFF Differential Comment AUTO DIFF AUTO DIFF CONFIRMED CONFIRMED Platelet Estimate NORMAL Platelet Morphology Comment NORMAL Laboratory Tests Test 05/07/16 05/08/16 04:30 04:30 Sodium Level 148 MEQ/L 148 MEQ/L Potassium Level 4.2 MEQ/L 5.4 MEQ/L Chloride Level 106 MEQ/L 109 MEQ/L Carbon Dioxide Level 34.8 MEQ/L 33.0 MEQ/L Anion Gap 7 MEQ/L 6 MEQ/L Blood Urea Nitrogen 67 MG/DL 81 MG/DL Creatinine 1.07 MG/DL 1.17 MG/DL Estimat Glomerular Filtration 80 ML/MIN 72 ML/MIN Rate Random Glucose 243 MG/DL 239 MG/DL Calcium Level 9.8 MG/DL 9.7 MG/DL Phosphorus Level 3.1 MG/DL 3.4 MG/DL Magnesium Level 2.5 MG/DL 2.6 MG/DL Total Bilirubin 0.8 MG/DL 0.8 MG/DL Aspartate Amino Transf 12 U/L 14 U/L (AST/SGOT) Alanine Aminotransferase 24 U/L 25 U/L (ALT/SGPT) Alkaline Phosphatase 43 U/L 45 U/L Total Protein 6.7 GM/DL 7.0 GM/DL Albumin 2.9 GM/DL 3.2 GM/DL Imaging Chest X-Ray 05/05/16 0600 Signed Impressions: Service Date/Time: Thursday, May 05, 2016 01:56 - CONCLUSION: Improved aeration bilaterally particularly in the left upper lobe. Tube and catheter are stable. Amador Brock MD Chest X-Ray 05/03/16 0000 Signed Impressions: Service Date/Time: Tuesday, May 03, 2016 06:40 - CONCLUSION: Increasing bilateral diffuse pulmonary infiltrates compared to the prior study. Lázaro Frankel MD Upper Extremity Ultrasound 05/02/16 0000 Signed Impressions: Service Date/Time: April 20:51 - CONCLUSION: No DVT. Garcia Lujan MD Abdomen X-Ray 04/29/16 0000 Signed Impressions: Service Date/Time: Friday, April 29, 2016 07:12 - CONCLUSION: Suspect Dobbhoff tube in the distal stomach. Garcia Lujan MD Physical Exam GENERAL: Awake,responding, on the vent, not in distress. SKIN: Warm and moist. No generalized rash. No cyanosis noted. HEAD: Atraumatic. Normocephalic. No temporal or scalp tenderness. EYES: [place] conjunctivae. Pupils equal round and reactive. No scleral icterus. ENT: Nose without purulent drainage. Moist mucosa. NECK: Short and obese, has trach, site ok. Supple, no meningeal signs. CARDIOVASCULAR: Regular rate and rhythm. Distant heart sounds. The area of erythema with heat on his R shoulder and goes to his R breast, as well as redness in his R upper arm above his PICC has resolved RESPIRATORY: Decreased BS bilaterally. GASTROINTESTINAL: Abdomen soft, morbidly obese, nt tender, not distended. Bowel sounds present and hypoactive. MUSCULOSKELETAL: Extremities without clubbing, cyanosis. Has mild pitting edema. NEUROLOGICAL: Awake and following LINE: PICC in RUE, site ok, : [place] in place, urine looks clear Assessment & Plan Remarks IMPRESSION Chronic respiratory failure, has new trach, has HCAP - C/S with MDR PSAE MDR PSAE PNA, S/P Rx New HCAP, S/S Providencia UTI, with Proteus Fevers, better Leukocytosis, due to PNA, and partly due to steroids Has an area of cellulitis in his RUE and R chest - rebecca - BC negative - no DVT on US RUE Morbid obesity Hx PE RECOMMENDATION Continue colistin nebs Continue Zyvox to complete Rx for the cellulitis on his chest Continue Diflucan Continue Rocephin to cover Proteus and Providencia Monitor temps Follow C/S Monitor progress Weaning per CCM D/W Dana Rollins MD May 08, 2016 11:19
--- NOTE | 2016-05-08 13:26 | HHI.CCPN ---
Subjective Remarks/Hospital Course 31 year old morbidly obese (BMI 68) male with chronic respiratory failure s/p tracheostomy 4 years ago, atrial fibrillation and pulmonary embolism on Xarelto , COPD, CHF and h/o HTN. He presented from [facility] with low oxygen saturation apparently his oxygen saturation was 82% on RA. He was placed back on 6L of oxygen via his trach mask and given a breathing treatment, initially improved however he started drifting back to low 80s again. Chest x-ray showed bibasilar infiltrates and pulmonary edema. Patient was admitted to the [facility] and was started on IV steroids IV vancomycin and Zosyn and Levaquin for healthcare associated pneumonia. After starting ACV, patient was more awake but there was a significant amount of air leak around his tracheostomy. Patient has a Shiley 6.0 Proximal XLT, but the corporation pilot balloon had been cut off. General surgery consulted for trach exchange in a.m. Solu-Medrol increased to 60 mg IV every 6 hours. 04/27: Afebrile. Tmax 97.6. Overnight the patient required increasing O2 concentrations. Patient's trach cuff required reinflation 2 overnight, maintaining volumes 400-500 cc per breath. The patient's FiO2 currently is 1.0 , O2 sat 94-96%. The patient received PICC line yesterday secondary to difficult IV access and nutrition requirements, will begin PPN tonight. The patient remains optimally sedated for ventilator's synchrony, and minimization of agitation. Currently requirements include propofol Versed and fentanyl infusions. 04/28: Tmax 98.7. The patient still requires and increasing O2 concentrations, Flolan initiated last night FiO2 was significantly decreased to 60% ,however this a.m. patient's O2 sat remained mid 80s with a requirement of increasing PEEP to 11 and FiO2 return to 100% currently aggressively utilizing recruitment maneuvers to decrease O2 and PEEP requirements for transfer to the OR tomorrow for exchange of tracheostomy apparatus. The patient continues to be sedated for patient safety and ventilator synchrony. 04/29:Tmax 100.0. Overnight the patient was diuresed approximately 5 L. The patient continues on a Lasix infusion. The FiO2 was significantly decrease post diuresis to 0.65, the patient continues on a PEEP of 12 with O2 saturations 93-94%. Successful placement of Dobbhoff tube, early this a.m. we' ll begin tube feeds this a.m. and discontinue PPN. General Surgery contacted this a.m. regarding tracheostomy exchange for scheduled time. Patient's Lovenox is held for OR, will place on heparin infusion, procedures time is scheduled for later today. The patient continues to be on sedation for safety to prevent dislodgment out tracheostomy tube. Radiological imaging studies reveal a loop and PICC line, will reconsult PICC team. 04/30: Afebrile. It is felt at this time by General Surgery, that the airway is secure as evidenced by lung volumes have been maintained for the last 3 days., Will attempt to repair corporation pilot balloon, if unsuccessful in attempts at repairing corporation pilot balloon, general surgery would consider exchanging the Shiley 60 XLT trach on an elective basis,when the patient was no longer critically ill. It is felt at this time, if tracheostomy was exchanged at this point in time the risks outweigh the benefit, and could result and possible . Attempts were made to decrease the PEEP to 8 , this afternoon and within an half an hour, the patient went into jacques pulmonary edema, copious pink frothy some sputum was noted to be emanating from the tracheostomy tube. O2 sat saturations dropped into the 60s,acutely. The patient was bolused with 80 mg of Lasix and 500 mg of Diamox and the PEEP was increased to 12. The patient's oxygenation improved with manual Ambu bag being and the PEEP of 12. The PICC line was power flushed early this morning repeat x-ray revealed the loop and line resolved, no resistance noted. 05/01: Tmax 101.0. The patient remains sedated fentanyl and propofol infusion. Pulmonary edema resolved, last evening. The patient continues on Lasix infusion , for continued diuresis. The patient has been able to maintain a O2 saturation of 94%, with FiO2 of 0.80 and PEEP of 12. Specialty bed ordered, due to patient's immobility and body habitus, plans to transfer patient to specialty bed with close control and monitoring of tracheostomy. 05/02: Tmax 100.3. The patient was transferred to a specialty bed yesterday . Today, the patient became acutely hypoxemic with a large cuff leak, unable to transition with previous methods of inflating balloon. O2 sat 80s with PEEP of 14, FIO2 100% Dr. Macias, Dr. Arrieta present. Anesthesia notified for back up, Dr. Magdaleno Walton Anesthesiologist, and myself at bedside. Glidescope intubation performed, Mallampati grade 2 noted upon visualization. O2 sat 90%, 6.[address] by Dr[address] Corbett. Bilateral breath sounds equal, distant. Copious pink frothy fluid emanating from trach consistent with continuous pulmonary edema. Lung recruitment approximately 4 hours from O2 sat 87% to obtain O2 sat of 92. Today patient noted to have diuretic resistance, additional diuretics provided. Family updated on above events. 05/03: Tmax 101.5. FiO2 remains at 90%. Urine output excellent more than 8 L on Lasix infusion. Patient is status post emergency trach exchange at bedside by Dr. Macias, due to acute hypoxemia and large cuff leak (notes from yesterday reviewed). Condition remains critical 05/04: Remains critically ill. Tmax 102. Urine output approximately 8 L on Lasix infusion but bicarbonate climbing. Start on Diamox for 3 days and DC Lasix gtt, start Bumex 2 mg IV q6. 05/05: Remains intubated sedated critically ill. Currently on FiO2 60% and PEEP of extreme Flolan at 50 ng. I will start weaning Flolan gradually. Afebrile now even though white count slightly increased to 17.7 from 15.5 yesterday. Evidence of metabolic alkalosis, decrease Bumex to 1 mg IV every 6 hours and continue Diamox Objective Vital Signs Date Time Temp Pulse Resp B/P Pulse Ox O2 Delivery O2 Flow Rate FiO2 05/08/16 12:00 98.6 79 22 140/79 91 05/08/16 12:00 60 Intake and Output 05/07/16 05/07/16 05/08/16 08:00 16:00 00:00 Intake Total 582 ml 1330 ml 357 ml Output Total 1750 ml 1850 ml 700 ml Balance -1168 ml -520 ml -343 ml Result Diagram: 05/08/1642905/08/16429 Other Results Laboratory Tests Test 05/08/16 05:13 Blood Gas Puncture Site LT RADIAL Blood Gas Patient Temperature 98.6 Blood Gas HCO3 31 mmol/L (22-26) Blood Gas Base Excess 5.0 mmol/L (-2-2) Blood Gas Oxygen Saturation 91 % (90-100) Arterial Blood pH 7.33 (7.380-7.420) Arterial Blood Partial 59 mmHg (38-42) Pressure CO2 Arterial Blood Partial 83 mmHg Pressure O2 (61-120) Arterial Blood Oxygen Content 16.0 Vol % (12.0-20.0) Arterial Blood 1.1 % (0-4) Carboxyhemoglobin Arterial Blood Methemoglobin 1.4 % (0-2) Blood Gas Hemoglobin 12.4 G/DL (12.0-16.0) Oxygen Delivery Device VENTILATOR Blood Gas Ventilator Setting [id number]/AC18/650/[id number] Blood Gas Inspired Oxygen 90 % Imaging Last 24 hours Impressions Chest X-Ray 05/01/16 06 Signed Impressions: Service Date/Time: Sunday, May 01, 2016 02:11 - CONCLUSION: Overall image quality is limited due to patient body habitus. Again suspected the bilateral lower lung infiltrates. Jeremiah Tuttle MD Last 24 hours Impressions Chest X-Ray 04/29/16 0600 Signed Impressions: Service Date/Time: Friday, April 29, 2016 03:30 - CONCLUSION: 1. Stable bibasilar consolidative infiltrates. 2. Some coiling of the PICC line since prior exam with the tip of the PIC line now at the level of the origin of the superior vena cava. Jeremiah Tuttle MD Abdomen X-Ray 04/29/16 0000 Signed Impressions: Service Date/Time: Friday, April 29, 2016 07:12 - CONCLUSION: Suspect Dobbhoff tube in the distal stomach. Garcia Lujan MD Last 24 hours Impressions Chest X-Ray 04/27/16 0600 Signed Impressions: Service Date/Time: Wednesday, April 27, 2016 03:51 - CONCLUSION: 1. Tracheostomy tube in place. No pneumothorax. 2. Pulmonary venous congestion with some bibasilar infiltrates. Lázaro Frankel MD Objective Remarks GENERAL: Lying in bed, on mech vent via trach in situ, sedated due to severe hypoxia, but opens eyes SKIN: Warm and dry. HEAD: Normocephalic. Atraumatic. EYES: PERRL. No scleral icterus. No injection or drainage. ENT: No nasal drainage. Oral and nasal mucosa moist NECK: Shiley 6.0 Proximal XLT, (new trach placed 05/02/16) CARDIOVASCULAR: Regular rate and rhythm without murmurs, gallops, or rubs. Distant heart sounds RESPIRATORY: On mechanical ventilation via tracheostomy. Air entry decreased bilaterally at bases. No wheezing, diminished throughout bilaterally. GASTROINTESTINAL: Abdomen soft, non-tender, obese, normal BS. Tube feeds infusing. NEURO: RASS -2 on mechanical ventilation, on fentanyl, Versed and propofol infusion, to maintain ventilator synchrony. Opens eyes and weakly follows commands Procedures Shiley 6.0 XLT tracheostomy exchange under visual direction by general surgery and with GlideScope, by anesthesiologist. Date of Insertion: Apr 24, 2016 Date of Insertion: Apr 26, 2016 Line: PICC Side: Right A/P Assessment and Plan ASSESSMENT Acute hypercapnic and hypoxemic respiratory failure Healthcare associated pneumonia MDR Pseudomonas Sepsis/persistent fever CHF exacerbation CO2 narcosis Tracheostomy corporation pilot balloon damage -status post exchange with new Shiley 6.0 Proximal XLT 05/02/16) Chronic Respiratory Failure s/p Tracheostomy 4 years ago (Shiley 6.0 Proximal XLT) COPD/obesity hypoventilation syndrome Morbid Obesity BMI 67 History of pulmonary embolism 4 years ago Chronic atrial fibrillation Anxiety CHF (Echo 2013 EF 40-45%; ECHO 08/2015 showing a grossly normal systolic function) Hypertension Hypothyroidism PLAN NEURO: CO2 narcosis Anxiety -Maintain optimal sedation, with RASS -2, due to severe hypoxemic respiratory failure for ventilator synchrony. -Continue Propofol , Versed and Fentanyl. -Sedation vacation if tolerated without hypoxia. (Currently avoid due to high vent settings, PEEP and severe hypoxia) RESP: Acute hypercapnic and hypoxemic respiratory failure Healthcare associated pneumonia Tracheostomy corporation pilot balloon damage (Shiley 6.0 Proximal XLT) s/p new trach placement 05/02 Chronic Respiratory Failure s/p Tracheostomy 4 years ago COPD/obesity hypoventilation syndrome History of pulmonary embolism 4 years ago Leukocytosis Pulmonary edema -Continue mechanical ventilation PRVC TV 650 iT 1.5, PEEP 16 FiO2 .40, Titrate to keep SaO2 >88% -Flolan off -Healthcare associated pneumonia (MDRO) is being treated with IV Vancomycin, Zerbaxa and Colistin nebs. IV Diflucan for heather UTI. ID following -Sputum culture revealed Pseudomonas MDR -DuoNeb every 4 hours scheduled -Pulmicort BID (home med) -Continue IV Solu-Medrol to 60 mg every 6 hour - start to yocasta -Therapeutic Lovenox 150 mg every 12 hours -Chest x-ray bibasilar infiltrates unchanged CV: CHF exacerbation Pulmonary edema Chronic atrial fibrillation -Bumex 1 mg IV every 6 hours -Diamox 500 milligram IV daily for 3 days starting 05/04 -Metolazone 5 mg po daily -A. fib rate controlled -Therapeutic Lovenox 150 mg twice a day GI: Super morbid obesity with BMI of 68 -Tube feeds Glucerna 30/hr -IV Protonix IV -SSI per ICU protocol - start Levemir : -Monitor potassium, phosphorus and magnesium closely -Scheduled doses of potassium -Monitor renal function closely. -Diuretic resistance . see new orders under CV -Milan catheter -Change today -Urine culture revealed Heather-, Fluconazole (Day 1) -Strict I&O ID: Healthcare associated pneumonia Sepsis MDRO Possible cellulitis right arm and fast Leukocytosis Recurrent fever -Continue IV vancomycin, Zebaxa (Day 5 )and Fluconazole (Day 3). Continue colistin nebs. Single dose of Zyvox given by ID -Blood urine and blood culture NGTD. Repeat blood and urine culture today -Wound culture Pseudomonas MDR -Sputum culture-Pseudomonas MDR-colistin inhalation -ID consulted, follow-up recommendations -Blood and urine cx neg on 05/03. Send sputum culture HEME: History of PE on chronic anticoagulation with Xarelto Leukocytosis -Monitor CBC, CMP, coags -Xarelto for PE 4 yrs ago. -Hold Xarelto. -Changed to Lovenox 150 mg twice a day ENDO: Hypothyroidism -Electrolyte replacement protocol -Continue levothyroxine 25 mcgs IV daily PROPH: -Bilateral lower extremity SCDs. Lovenox DVT prophylaxis. IV Protonix for GI prophylaxis LINES: - PICC line (day 10) RUE No DVT on US Critical Care: The total critical care time was 35 minutes. Time to perform other separately billable procedures was not included in the critical care time. Adin Dobson MD May 08, 2016 13:26
[2016-05-08] MEDS: FLUCONAZOLE 100 MG TAB PO SCH (16:26)
[2016-05-08] MEDS: FREE WATER G-TUBE SCH (17:00)
[2016-05-08 19:06] LABS: BICARBONATE 31.4 MEQ/L (21.0-32.0)
[2016-05-08 19:07] LABS: POTASSIUM 4.2 MEQ/L (3.5-5.1)
[2016-05-09] VITALS (20 sets, daily range): BP systolic 122–147; BP diastolic 70–79; PULSE 81–111; RESP 22; TEMP 99.1–100.1; O2SAT 88–95
[2016-05-09] MEDS: methylPREDNISolone SOD SUCC 40 MG/1 ML VIAL IV PUSH SCH ×4 (00:09→17:59)
[2016-05-09] MEDS: MEDIUM DOSE INSULIN NOVOLIN REGULAR SUPPLEMENTAL SCALE SQ SCH ×6 (00:09→20:00)
[2016-05-09] MEDS: FREE WATER G-TUBE SCH ×3 (00:10→16:10)
[2016-05-09] MEDS: PROPOFOL 1000 MG/100 ML INJ 100 ML IV SCH ×11 (00:10→22:28)
[2016-05-09] MEDS: RESP: COLISTIN 150 MG VIAL NEB SCH ×4 (00:22→23:45)
[2016-05-09] MEDS: PANTOPRAZOLE SODIUM 40 MG VIAL IV PUSH SCH ×2 (02:29→16:10)
--- NOTE | 2016-05-09 04:09 | RADRPT ---
EXAM DATE/TIME: 05/09/2016 02:52 [facility] COMPARISON: CHEST SINGLE AP, May 08, 2016, 4:01. INDICATIONS : Shortness of breath, possible pulmonary disease. MEDICAL HISTORY : Hypertension. Hypercholesterolemia. Congestive heart failure. A-Fib SURGICAL HISTORY : Tracheostomy ENCOUNTER: Subsequent ACUITY: 3 months PAIN SCORE: Non-responsive. LOCATION: Bilateral chest FINDINGS: Endotracheal tube tip at the superior margin of the clavicles. A right subclavian line courses cephal ad at the expected location of the internal jugular vein distal tip off the superior margin of the fi lm. Stable bilateral lower lobe consolidation and cardiomegaly. CONCLUSION: No significant change has occurred. Bill Zavala MD on May 09, 2016 at 4:07 Board Certified Radiologist. This report was verified electronically.
[2016-05-09] MEDS: ENOXAPARIN SODIUM 150 MG/ML SYRINGE SQ SCH ×2 (04:11→16:09)
[2016-05-09] MEDS: RESP: ALBUTEROL 2.5 MG/IPRATROPIUM 0.5 MG NEB (SCH) NEB ×2 (04:15→09:19)
[2016-05-09] MEDS: fentaNYL DRIP 250 ML IV SCH ×2 (05:18→14:50)
[2016-05-09] MEDS: LEVOTHYROXINE SODIUM 100 MCG VIAL IV PUSH SCH (05:20)
[2016-05-09 05:33] LABS: BLOOD GAS BASE EXCESS 4.2 mmol/L (-2-2); BLOOD GAS CARBOXYHEMOGLOBIN 0.9 % (0-4); BLOOD GAS HCO3 29 mmol/L (22-26); BLOOD GAS METHEMOGLOBIN 1.4 % (0-2); BLOOD GAS O2 HGB SATURATION 87 % (90-100); BLOOD GAS OXYGEN CONTENT 16.8 Vol % (12.0-20.0); BLOOD GAS PCO2 55 mmHg (38-42); BLOOD GAS PO2 65 mmHg (61-120); BLOOD GAS TOTAL HGB 13.7 G/DL (12.0-16.0); CRITICAL VALUE YES; OXYGEN DEVICE VENT; TEMP CORR TO 98.6
[2016-05-09 05:34] LABS: DRAW SITE RT RADIAL; FIO2 50 %; NUMBER OF ARTERIAL PUNCTURES 1; STAT NO; ULNAR PULSE Y
[2016-05-09 06:11] LABS: AUTOMATED NEUTROPHIL # 15.8 TH/MM3 (1.8-7.7); BASOPHIL % 0.1 % (0.0-2.0); HEMATOCRIT 38.2 % (39.0-51.0); LYMPH % 4.7 % (9.0-44.0); LYMPHOCYTE # 0.8 TH/MM3 (1.0-4.8); MEAN CORPUSCULAR HEMOGLOBIN 23.9 PG (27.0-34.0); MEAN CORPUSCULAR HGB CONC 31.4 % (32.0-36.0); MONO % 2.5 % (0.0-8.0); NEUT % 92.7 % (16.0-70.0); PLATELET COUNT 194 TH/MM3 (150-450); RED BLOOD COUNT 5.03 MIL/MM3 (4.50-5.90); RED CELL DISTRIBUTION WIDTH 19.6 % (11.6-17.2)
[2016-05-09 06:33] LABS: ANION GAP 10 MEQ/L (5-15); AST (GOT) 22 U/L (15-37); BICARBONATE 32.5 MEQ/L (21.0-32.0); BLOOD UREA NITROGEN 74 MG/DL (7-18); CHLORIDE 106 MEQ/L (98-107); GLOMERULAR FILTRATION RATE 86 ML/MIN (>89); MAGNESIUM 2.4 MG/DL (1.5-2.5); POTASSIUM 3.8 MEQ/L (3.5-5.1); SODIUM (NA) 148 MEQ/L (136-145)
[2016-05-09 06:39] LABS: ALKALINE PHOSPHATASE 46 U/L (45-117); TOTAL BILIRUBIN ADULT 0.7 MG/DL (0.2-1.0)
[2016-05-09 06:44] LABS: HEMO FLAGS AUTO DIFF
[2016-05-09] MEDS: INSULIN DETEMIR 100 UNITS/ML VIAL SQ SCH ×2 (07:42→21:01)
[2016-05-09] MEDS: MONTELUKAST SODIUM 10 MG TAB PO SCH (07:42)
[2016-05-09] MEDS: METOLAZONE 5 MG TAB NG SCH (07:42)
[2016-05-09] MEDS: FENOFIBRATE 48 MG TAB PO SCH (07:42)
[2016-05-09] MEDS: ATORVASTATIN 10 MG TAB PO SCH (07:43)
[2016-05-09] MEDS: METOCLOPRAMIDE HCL 10 MG/2 ML VIAL IV PUSH SCH ×2 (07:43→21:00)
[2016-05-09] MEDS: LINEZOLID 600 MG TAB PO SCH ×2 (07:43→21:00)
[2016-05-09] MEDS: ALLOPURINOL 300 MG TAB PO SCH (07:43)
[2016-05-09] MEDS: SODIUM CHLORIDE 0.9% FLUSH 5 ML FLUSH FLUSH SCH ×2 (07:44→21:00)
[2016-05-09] MEDS: MICONAZOLE NITRATE 2% CREAM 15 GM TOP SCH ×2 (07:45→21:03)
[2016-05-09] MEDS: NYSTATIN 100,000 U/GM PWD 15 GM BTL TOPICAL SCH ×2 (07:45→21:03)
[2016-05-09] MEDS: CHLORHEXIDINE 0.12% (ORAL KIT) 15 ML CUP MT SCH ×2 (07:53→21:03)
[2016-05-09 08:19] LABS: ALT (GPT) 27 U/L (12-78)
[2016-05-09] MEDS: RESP: BUDESONIDE 0.5 MG/2 ML NEB NEB SCH ×2 (09:19→19:31)
--- NOTE | 2016-05-09 09:23 | HHI.FPPN ---
Subjective Remarks No acute events overnight. Afebrile, Vital signs stable. BP slightly elevated this AM (147/78). This morning he required additional oxygen (up to 75% FIO2 from 50%) to maintain saturations > 94. Drowsy this morning, nods when asked if comfortable. (Obed Glaser MD R1) Objective Vitals Vital Signs Date Time Temp Pulse Resp B/P Pulse Ox O2 Delivery O2 Flow Rate FiO2 05/09/16 07:23 93 60 05/09/16 06:00 103 05/09/16 04:15 91 50 05/09/16 04:00 99.1 94 22 147/78 91 05/09/16 04:00 94 05/09/16 04:00 50 05/09/16 02:00 90 05/09/16 00:22 92 50 05/09/16 00:00 99.7 89 22 147/78 92 05/09/16 00:00 89 05/09/16 00:00 50 05/08/16 22:27 92 50 05/08/16 22:00 81 05/08/16 20:01 95 50 05/08/16 20:00 99.5 80 22 136/80 93 05/08/16 20:00 80 05/08/16 20:00 50 05/08/16 18:00 82 05/08/16 16:00 91 05/08/16 16:00 50 05/08/16 16:00 99.1 86 22 138/73 91 05/08/16 15:37 91 50 05/08/16 14:00 92 05/08/16 12:00 98.6 79 22 140/79 91 05/08/16 12:00 60 05/08/16 12:00 78 05/08/16 10:39 91 50 05/08/16 10:00 69 I/O 05/08/16 05/08/16 05/08/16 05/09/16 05/09/16 05/09/16 07:00 15:00 23:00 07:00 15:00 23:00 Intake Total 840 ml 1200 ml 1636 ml 875 ml Output Total 550 ml 1850 ml 450 ml 475 ml Balance 290 ml -650 ml 1186 ml 400 ml IV Total 444 ml 848 ml 1408 ml 572 ml Tube Feeding 296 ml 302 ml 168 ml 183 ml Tube Irrigant 100 ml 50 ml 60 ml 120 ml Output Urine Total 550 ml 1850 ml 450 ml 475 ml # Bowel Movements 1 0 0 1 (Obed Glaser MD R1) Result Diagram: 05/09/1642905/09/16429 Objective Remarks GENERAL: Morbidly obese. On mechanical ventilation, NG tube in place, no distress. SKIN: Warm and dry. No rashes or lesions. Cellulitis of right chest wall. HEAD: Normocephalic. Atraumatic. ENT: No nasal drainage. Tracheotomy site is clean and dry without drainage. NECK: No JVD. CARDIOVASCULAR: Distant heart sounds. Regular rate and rhythm without murmurs, gallops, or rubs. Peripheral pulses 2+. RESPIRATORY: On mechanical ventilation. PRVC, FiO2 50%, PEEP 16. Clear to auscultation bilaterally. No rales or rhonchi. GASTROINTESTINAL: Abdomen soft, obese, distant bowel sounds. MUSCULOSKELETAL: Lower extremity edema. NEURO: Awake, somewhat alert, under sedation. Answers questions with head nods. Medications and IVs Current Medications Medications (Trade) Dose Ordered Sig/Per Route Start Time Stop Time Status Last Admin (Tylenol) 650 mg Q4H PRN PO 04/24/16 15:15 05/04/16 09:06 (NS Flush) 2 ml UNSCH PRN FLUSH 04/24/16 15:15 05/07/16 08:06 (NS Flush) 2 ml BID FLUSH 04/24/16 21:00 05/08/16 20:33 (Narcan Inj) 0.4 mg UNSCH PRN IV 04/24/16 15:15 (Zyloprim) 300 mg DAILY PO 04/25/16 09:00 05/09/16 07:43 (Lipitor) 10 mg DAILY PO 04/25/16 09:00 05/09/16 07:43 (Tricor) 48 mg DAILY PO 04/25/16 09:00 05/09/16 07:42 (Lasix) 40 mg BID PO 04/24/16 21:00 Hold (Synthroid) 50 mcg DAILY@06 PO 04/25/16 06:00 Hold 04/26/16 04:58 (Micatin 2% Cream) 1 applic BID TOP 04/24/16 21:00 05/09/16 07:45 (Singulair) 10 mg DAILY PO 04/25/16 09:00 05/09/16 07:42 (Xarelto) 20 mg DAILY PO 04/25/16 09:00 Hold (Ambien) 5 mg HS PRN PO 04/24/16 15:15 Hold 04/25/16 19:40 (Symbicort 160-4.5 Inh) 2 puff BID INH 04/24/16 21:00 Hold 04/25/16 19:40 Miscellaneous Information Patient in critical care unit? Ass... [id number] XX 04/24/16 20:30 04/24/16 20:30 Chlorhexidine Gluconate 15 ml 15 ml BID@08,20 MT 04/25/16 08:00 05/09/16 07:53 Propofol 100 ml @ 0 mls/hr TITRATE IV 04/24/16 22:45 05/09/16 07:53 (fentaNYL DRIP) 250 ml @ 0 mls/hr TITRATE IV 04/24/16 22:45 05/09/16 05:18 (SoluMEDROL INJ) 60 mg Q6HR IV PUSH 04/25/16 00:00 05/09/16 05:17 (Zofran Inj) 4 mg Q6HR PRN IV PUSH 04/25/16 21:00 04/25/16 21:37 Levothyroxine Sodium 25 mcg 25 mcg DAILY@06 IV PUSH 04/26/16 09:00 05/09/16 05:20 (Versed Inj) 100 ml @ 0 mls/hr TITRATE IV 04/26/16 09:30 05/06/16 08:10 (NS Flush) See Protocol DAILY IVF 04/27/16 09:00 05/08/16 09:00 (NS Flush) See Protocol UNSCH PRN IVF 04/26/16 17:30 05/07/16 08:06 (Heparin Central Flush) See Protocol DAILY IVF 04/27/16 09:00 05/04/16 09:07 (Heparin Central Flush) See Protocol UNSCH PRN IVF 04/26/16 17:30 (NS Flush) See Protocol UNSCH PRN IVF 04/26/16 17:30 05/07/16 08:06 (NS Flush) See Protocol DAILY IVF 04/27/16 09:00 05/08/16 09:00 (NS Flush) See Protocol UNSCH PRN IVF 04/26/16 19:15 05/07/16 08:06 (Heparin Central Flush) See Protocol DAILY IVF 04/27/16 09:00 (Heparin Central Flush) See Protocol UNSCH PRN IVF 04/26/16 19:15 IV Flush See Protocol UNSCH PRN IVF 04/26/16 19:15 05/07/16 08:06 Potassium Chloride 100 ml @ 50 mls/hr Q2H PRN IV 04/27/16 08:15 05/03/16 07:33 (KCl 20 Meq Premix Inj) 100 ml @ 50 mls/hr Q2H PRN IV 04/27/16 08:15 Potassium Chloride 40 meq 40 meq UNSCH PRN PO/TUBE 04/27/16 08:15 05/05/16 08:32 Potassium Chloride 100 ml @ 25 mls/hr UNSCH PRN IV 04/27/16 08:15 05/04/16 00:07 Potassium Chloride 100 ml @ 50 mls/hr Q2H PRN IV 04/27/16 08:15 (Magnesium Sulfate Inj/NS Inj) 100 ml @ 50 mls/hr UNSCH PRN IV 04/27/16 08:15 Magnesium Oxide 800 mg 800 mg UNSCH PRN PO 04/27/16 08:15 (Magnesium Sulfate Inj/NS Inj) 100 ml @ 50 mls/hr UNSCH PRN IV 04/27/16 08:15 Potassium Phosphate 2000 mg 2,000 mg Q4H PRN PO 04/27/16 08:15 (Sodium Phosphate Inj/NS 250 ml Inj) 250 ml @ 42 mls/hr UNSCH PRN IV 04/27/16 08:15 (KCl 40 Meq/30 ml Liq) 40 meq UNSCH PRN PO/TUBE 04/27/16 08:15 Potassium Phosphate 2000 mg 2,000 mg UNSCH PRN PO/TUBE 04/27/16 08:15 (Potassium Phosphate Inj/NS 250 ml Inj) 260 ml @ 42 mls/hr UNSCH PRN IV 04/27/16 08:15 05/02/16 07:50 (Benadryl Inj) 25 mg Q4H PRN IV PUSH 04/27/16 08:30 (Elizabeth-Colace) 1 tab BID PRN PO 04/27/16 08:30 (Lovenox Inj) 150 mg Q12H SQ 05/01/16 16:00 05/09/16 04:11 (Protonix Inj) 40 mg Q12H IV PUSH 05/02/16 15:00 05/09/16 02:29 (Zaroxolyn) 5 mg DAILY NG 05/03/16 07:00 05/09/16 07:42 (D50w (Vial) Inj) 25 ml UNSCH PRN IV PUSH 05/05/16 12:15 (Glucagon Inj) 1 mg UNSCH PRN OTHER 05/05/16 12:15 (NovoLIN R SUPPLEMENTAL SCALE) 1 Q4HR SQ 05/05/16 12:00 05/09/16 07:41 (Zyvox) 600 mg Q12HR PO 05/06/16 09:15 05/13/16 09:14 05/09/16 07:43 (Diflucan) 100 mg DAILY@17 PO 05/06/16 17:00 05/13/16 16:59 05/08/16 16:26 (Reglan Inj) 10 mg Q12HR IV PUSH 05/06/16 16:00 05/09/16 07:43 (Mycostatin Powder) 1 applic BID TOPICAL 05/06/16 21:00 05/09/16 07:45 Insulin Detemir 10 units 10 units BID SQ 05/07/16 12:00 05/09/16 07:42 (Rocephin Inj/NS Inj) 100 ml @ 200 mls/hr Q24H IV 05/18/16 14:00 (Free Water) 200 ml Q8H G-TUBE 05/08/16 17:00 05/09/16 07:44 (Obed Glaser MD R1) Date of Insertion: Apr 24, 2016 (Obed Glaser MD R1) Date of Insertion: Apr 26, 2016 Line: PICC Side: Right (Obed Glaser MD R1) A/P Assessment and Plan Assessment and Plan Acute hypercapnic/hypoxemic respiratory failure Healthcare associated pneumonia with MDR Pseudomonas UTI with proteus mirabilis Sepsis CHF exacerbation CO2 narcosis Chronic Respiratory Failure s/p Tracheostomy 4 years ago (Shiley 6.0 Proximal XLT) COPD/obesity hypoventilation syndrome Morbid Obesity BMI 67 History of pulmonary embolism 4 years ago Chronic atrial fibrillation Anxiety CHF (Echo 2013 EF 40-45%; ECHO 08/2015 showing grossly normal systolic function) Hypertension Hypothyroidism PLAN NEURO: answering questions appropriately with yes or no answers CO2 narcosis Anxiety -Maintain optimal sedation for ventilator synchrony. -Continue Propofol ,Versed and Fentanyl. RESP: FiO2 50%, PEEP 16, on PRVC Acute hypercapnic/hypoxemic respiratory failure Healthcare associated pneumonia New trach placement 05/02 Chronic Respiratory Failure s/p Tracheostomy 4 years ago COPD/obesity hypoventilation syndrome History of pulmonary embolism 4 years ago Pulmonary edema -Continue mechanical ventilation PRVC TV 650 iT 1.5, PEEP 16 FiO2 .50, Titrate to keep SaO2 >88% -Flolan discontinued. -Healthcare associated pneumonia (MDRO) is being treated with IV Rocephin (05/07 - ), Colistin nebs. IV Diflucan for heather UTI. ID following -Sputum culture revealed Pseudomonas MDR, providencia stuartii -DuoNeb every 4 hours scheduled -Pulmicort BID (home med) -Continue IV Solu-Medrol to 60 mg every 6 hour, start tapering -Therapeutic Lovenox 150 mg every 12 hours -Chest x-ray bibasilar infiltrates unchanged CV: CHF exacerbation Pulmonary edema Chronic atrial fibrillation -Bumex 1 mg IV decreased to every 8 hours due to high output and hypernatremia. -Metolazone 5 mg po daily -A. fib rate controlled -Therapeutic Lovenox 150 mg twice a day GI: Super morbid obesity with BMI of 68 -Tube feeds Glucerna 30/hr, tolerating well -IV Protonix IV -SSI per ICU protocol - Levemir, 10 units bid. May need to increase, will monitor blood glucoses. : -Monitor potassium, phosphorus and magnesium -Hold potassium due to high levels, repeat BMP - May benefit from free water through Dobhoff tube for hypernatremia -Monitor renal function -Milan catheter -Urine culture revealed Heather-, Fluconazole -Strict I&O ID: Healthcare associated pneumonia Sepsis MDRO Possible cellulitis right arm and fast Leukocytosis Recurrent fever -IV rocephin (05/07 - ), colistin nebs for HCAP, Zyvox (for cellulitis) until . -Blood urine and blood culture NGTD. Repeat blood and urine culture today -Wound culture Pseudomonas MDR -Sputum culture-Pseudomonas MDR-colistin inhalation -ID consulted, follow-up recommendations -Blood cx from 05.03 negative. Urine culture positive for proteus mirabilis. HEME: History of PE on chronic anticoagulation with Xarelto Leukocytosis -Monitor CBC, CMP, coags -Xarelto for PE 4 yrs ago. -Hold Xarelto. -Changed to Lovenox 150 mg twice a day ENDO: Hypothyroidism -Electrolyte replacement protocol -Continue levothyroxine 25 mcgs IV daily PROPH: -Bilateral lower extremity SCDs. Lovenox DVT prophylaxis. IV Protonix for GI prophylaxis LINES: - PICC line Discharge Planning Patient will need to be weaned from mechanical ventilation with stable clinical status. Hopeful for patient to be able to return to long-term rehab facility. ( Obed Glaser MD R1) Attending Attestation Patient seen and examined. Case reviewed and discussed. Agree with plan of care as discussed with me and documented in the resident note. (Bernice Garcia MD) Problem List: (1) On mechanically assisted ventilation Status: Acute Plan: Critical care actively managing acute hypercapnic and hypoxemic respiratory failure and HCAP at this time Patient placed on mechanical ventilation on 04/24, FiO2 now 75% with PEEP 16 S/p urgent/emergent trach exchange 05/02 due to acute hypoxemia and large cuff leak Continue Solumedrol 60 mg IV q6h (2) HCAP (healthcare-associated pneumonia) Status: Acute Plan: Febrile up to 102 Leukocytosis 17.0 this AM Repeat ABG on 04/26 showed improvement with CO2 56 with pH 7.40 05/01 BCXs no growth (final) 05/03 BCx no growth (final) 05/04 BCx no growth after 4 days CXR 04/29 showing stable bibasilar consolidative infiltrates 04/30 CXR shows bilateral airspace disease greater in the right lower lobe 05/05 CXR showing improved aeration bilaterally 04/27 Sputum culture growing resistant pseudomonas 05/04 repeat sputum culture munoz-sensitive Providencia stuartii Antibiotic History Zosyn 4.5gm IV q6h (04/24 - 04/29) Levaquin 750mg IV q24h (04/24-04/30) Zerbaxa 1.5 g IV q8h (04/29 - 05/07) Vancomycin IV (04/24 - 05/06) Ceftriaxone IV (05/07 - present) Linezolid 600 mg PO BID (05/06 - 05/13) Plan - Infectious Disease consulted, appreciate recs * Continue Ceftriaxone 2 g IV Q24H * Colistin nebs * Diflucan q24h - Duonebs q2h (3) Yeast UTI Status: Acute Plan: 05/01 Urine CX growing heather albicans 05/05 repeat UA with large LE, negative nitrite, 182 WBCs; culture grew Proteus Mirabilis Continue Diflucan 400 mg IV q24h (4) Cellulitis of chest wall Status: Acute Plan: Improved - Complete course of linezolid 600 mg PO BID (05/06-05/13) per ID recs (5) CHF (congestive heart failure) Status: Chronic Plan: Last ECHO 09/18/2015 showing a grossly normal systolic function with no definitive EF as it was difficult to assess, ECHO on 05/2014 with EF of 40-45% with mildly dilated left atrium 04/25 ECHO was limited due to poor image quality, EF could not be adequately estimated. Systolic function appears to be grossly normal. BNP on admission 419, repeat BNP 151 Critical care actively managing diuresis - Lasix drip discontinued - Bumex Discontinued - Completed 3 days of acetazolamide (6) Atrial fibrillation Status: Chronic Plan: Last EKG in sinus rhythm NRRR on exam Home dose of Xarelto 20 mg po daily has been held in anticipation of possible surgery. Currently on Lovenox 150mg SQ Q12H (7) Tracheostomy present Status: Chronic Plan: S/p urgent/emergent trach exchange 05/02 due to acute hypoxemia and large cuff leak Has been stable since procedure (8) HTN (hypertension) Status: Chronic Plan: BPs stable Hold home BP medications (9) Morbid obesity with BMI of 60.0-69.9, adult Status: Chronic Plan: Likely contributing to chronic respiratory issues (10) Hypothyroidism Status: Chronic Plan: Synthroid 25 mcg IV daily (11) Nutrition, metabolism, and development symptoms Status: Acute Plan: Fluids: none Electrolytes: Monitor and replete when necessary per protocol Nutrition: NG tube, tube feeds with Glucerna 30ml/hr DVT PPx: Therapeutic Lovenox 150mg subq q12h Glucose: Insulin Levemir 15 units SQ BID plus medium dose sliding scale to control blood sugar sdw Dr. Eddie Blankenship (Obed Glaser MD R1) Problem Qualifiers (1) CHF (congestive heart failure): Qualified Code: I50.9 - Acute on chronic congestive heart failure, unspecified congestive heart failure type (2) Atrial fibrillation: Qualified Code: I48.2 - Chronic atrial fibrillation (3) HTN (hypertension): Qualified Code: I10 - Essential hypertension (4) Hypothyroidism: Qualified Code: E03.9 - Hypothyroidism, unspecified type Obed Glaser MD R1 May 09, 2016 09:23 Bernice Garcia MD May 10, 2016 10:38
[2016-05-09 09:57] LABS: BANDS 12 % (0-6); NEUTROPHIL # MANUAL DIFF 15.8 TH/MM3 (1.8-7.7); OVALOCYTES 1+ (NORMAL); PLATELET ESTIMATE SMEAR NORMAL (NORMAL); PLATELET MORPHOLOGY NORMAL (NORMAL); POLYS (SEG NEUTROPHILS) 81 % (16-70); SCAN/DIFF FINAL DIFF MANUAL; TARGET CELLS 1+ (NORMAL); TEARDROP RBCS 1+ (NORMAL); WBC DIFF SAMPLE 100
--- NOTE | 2016-05-09 15:11 | HHI.CCPN ---
Subjective Remarks/Hospital Course 31 year old morbidly obese (BMI 68) male with chronic respiratory failure s/p tracheostomy 4 years ago, atrial fibrillation and pulmonary embolism on Xarelto , COPD, CHF and h/o HTN. He presented from [facility] with low oxygen saturation apparently his oxygen saturation was 82% on RA. He was placed back on 6L of oxygen via his trach mask and given a breathing treatment, initially improved however he started drifting back to low 80s again. Chest x-ray showed bibasilar infiltrates and pulmonary edema. Patient was admitted to the [facility] service and was started on IV steroids IV vancomycin and Zosyn and Levaquin for healthcare associated pneumonia. After starting ACV, patient was more awake but there was a significant amount of air leak around his tracheostomy. Patient has a Shiley 6.0 Proximal XLT, but the forestry pilot balloon had been cut off. General surgery consulted for trach exchange in a.m. Solu-Medrol increased to 60 mg IV every 6 hours. 04/27: Afebrile. Tmax 97.6. Overnight the patient required increasing O2 concentrations. Patient's trach cuff required reinflation 2 overnight, maintaining volumes 400-500 cc per breath. The patient's FiO2 currently is 1.0 , O2 sat 94-96%. The patient received PICC line yesterday secondary to difficult IV access and nutrition requirements, will begin PPN tonight. The patient remains optimally sedated for ventilator's synchrony, and minimization of agitation. Currently requirements include propofol Versed and fentanyl infusions. 04/28: Tmax 98.7. The patient still requires and increasing O2 concentrations, Flolan initiated last night FiO2 was significantly decreased to 60% ,however this a.m. patient's O2 sat remained mid 80s with a requirement of increasing PEEP to 11 and FiO2 return to 100% currently aggressively utilizing recruitment maneuvers to decrease O2 and PEEP requirements for transfer to the OR tomorrow for exchange of tracheostomy apparatus. The patient continues to be sedated for patient safety and ventilator synchrony. 04/29:Tmax 100.0. Overnight the patient was diuresed approximately 5 L. The patient continues on a Lasix infusion. The FiO2 was significantly decrease post diuresis to 0.65, the patient continues on a PEEP of 12 with O2 saturations 93-94%. Successful placement of Dobbhoff tube, early this a.m. we' ll begin tube feeds this a.m. and discontinue PPN. General Surgery contacted this a.m. regarding tracheostomy exchange for scheduled time. Patient's Lovenox is held for OR, will place on heparin infusion, procedures time is scheduled for later today. The patient continues to be on sedation for safety to prevent dislodgment out tracheostomy tube. Radiological imaging studies reveal a loop and PICC line, will reconsult PICC team. 04/30: Afebrile. It is felt at this time by General Surgery, that the airway is secure as evidenced by lung volumes have been maintained for the last 3 days., Will attempt to repair forestry pilot balloon, if unsuccessful in attempts at repairing forestry pilot balloon, general surgery would consider exchanging the Shiley 60 XLT trach on an elective basis,when the patient was no longer critically ill. It is felt at this time, if tracheostomy was exchanged at this point in time the risks outweigh the benefit, and could result and possible . Attempts were made to decrease the PEEP to 8 , this afternoon and within an half an hour, the patient went into jacques pulmonary edema, copious pink frothy some sputum was noted to be emanating from the tracheostomy tube. O2 sat saturations dropped into the 60s,acutely. The patient was bolused with 80 mg of Lasix and 500 mg of Diamox and the PEEP was increased to 12. The patient's oxygenation improved with manual Ambu bag being and the PEEP of 12. The PICC line was power flushed early this morning repeat x-ray revealed the loop and line resolved, no resistance noted. 05/01: Tmax 101.0. The patient remains sedated fentanyl and propofol infusion. Pulmonary edema resolved, last evening. The patient continues on Lasix infusion , for continued diuresis. The patient has been able to maintain a O2 saturation of 94%, with FiO2 of 0.80 and PEEP of 12. Specialty bed ordered, due to patient's immobility and body habitus, plans to transfer patient to specialty bed with close control and monitoring of tracheostomy. 05/02: Tmax 100.3. The patient was transferred to a specialty bed yesterday . Today, the patient became acutely hypoxemic with a large cuff leak, unable to transition with previous methods of inflating balloon. O2 sat 80s with PEEP of 14, FIO2 100% Dr. Macias, Dr. Arrieta present. Anesthesia notified for back up, Dr. Magdaleno Walton Anesthesiologist, and myself at bedside. Glidescope intubation performed, Mallampati grade 2 noted upon visualization. O2 sat 90%, 6.[address] exchange by Dr[address] Corbett. Bilateral breath sounds equal, distant. Copious pink frothy fluid emanating from trach consistent with continuous pulmonary edema. Lung recruitment approximately 4 hours from O2 sat 87% to obtain O2 sat of 92. Today patient noted to have diuretic resistance, additional diuretics provided. Family updated on above events. 05/03: Tmax 101.5. FiO2 remains at 90%. Urine output excellent more than 8 L on Lasix infusion. Patient is status post emergency trach exchange at bedside by Dr. Macias, due to acute hypoxemia and large cuff leak (notes from yesterday reviewed). Condition remains critical 05/04: Remains critically ill. Tmax 102. Urine output approximately 8 L on Lasix infusion but bicarbonate climbing. Start on Diamox for 3 days and DC Lasix gtt, start Bumex 2 mg IV q6. 05/05: Remains intubated sedated critically ill. Currently on FiO2 60% and PEEP of extreme Flolan at 50 ng. I will start weaning Flolan gradually. Afebrile now even though white count slightly increased to 17.7 from 15.5 yesterday. Evidence of metabolic alkalosis, decrease Bumex to 1 mg IV every 6 hours and continue Diamox 05/09: Remains same. Intubated. Flolan off. FiO2 65% PEEP 14 Objective Vital Signs Date Time Temp Pulse Resp B/P Pulse Ox O2 Delivery O2 Flow Rate FiO2 05/09/16 14:00 87 05/09/16 12:48 95 65 05/09/16 12:00 99.2 22 122/70 Intake and Output 05/08/16 05/08/16 05/09/16 08:00 16:00 00:00 Intake Total 840 ml 1200 ml 1636 ml Output Total 550 ml 1850 ml 450 ml Balance 290 ml -650 ml 1186 ml Result Diagram: 05/09/16 0430 05/09/16 0430 Other Results Laboratory Tests Test 05/09/16 05:28 Blood Gas Puncture Site RT RADIAL Blood Gas Patient Temperature 98.6 Blood Gas HCO3 29 mmol/L (22-26) Blood Gas Base Excess 4.2 mmol/L (-2-2) Blood Gas Oxygen Saturation 87 % (90-100) Arterial Blood pH 7.35 (7.380-7.420) Arterial Blood Partial 55 mmHg (38-42) Pressure CO2 Arterial Blood Partial 65 mmHg Pressure O2 (61-120) Arterial Blood Oxygen Content 16.8 Vol % (12.0-20.0) Arterial Blood 0.9 % (0-4) Carboxyhemoglobin Arterial Blood Methemoglobin 1.4 % (0-2) Blood Gas Hemoglobin 13.7 G/DL (12.0-16.0) Oxygen Delivery Device VENT Blood Gas Liter Flow L/M Blood Gas Ventilator Setting SEE COMMENT Blood Gas Inspired Oxygen 50 % Imaging Last 24 hours Impressions Chest X-Ray 05/01/16599 Signed Impressions: Service Date/Time: Sunday, May 01, 2016 02:11 - CONCLUSION: Overall image quality is limited due to patient body habitus. Again suspected the bilateral lower lung infiltrates. Jeremiah Tuttle MD Last 24 hours Impressions Chest X-Ray 04/29/16599 Signed Impressions: Service Date/Time: Friday, April 29, 2016 03:30 - CONCLUSION: 1. Stable bibasilar consolidative infiltrates. 2. Some coiling of the PICC line since prior exam with the tip of the PIC line now at the level of the origin of the superior vena cava. Jeremiah Tuttle MD Abdomen X-Ray 04/29/16 0000 Signed Impressions: Service Date/Time: Friday, April 29, 2016 07:12 - CONCLUSION: Suspect Dobbhoff tube in the distal stomach. Garcia Lujan MD Last 24 hours Impressions Chest X-Ray 04/27/16 06 Signed Impressions: Service Date/Time: Wednesday, April 27, 2016 03:51 - CONCLUSION: 1. Tracheostomy tube in place. No pneumothorax. 2. Pulmonary venous congestion with some bibasilar infiltrates. Lázaro Frankel MD Objective Remarks GENERAL: Lying in bed, on mech vent via trach in situ, sedated due to severe hypoxia, but opens eyes SKIN: Warm and dry. HEAD: Normocephalic. Atraumatic. EYES: PERRL. No scleral icterus. No injection or drainage. ENT: No nasal drainage. Oral and nasal mucosa moist NECK: Shiley 6.0 Proximal XLT, (new trach placed 05/02/16) CARDIOVASCULAR: Regular rate and rhythm without murmurs, gallops, or rubs. Distant heart sounds RESPIRATORY: On mechanical ventilation via tracheostomy. Air entry decreased bilaterally at bases. No wheezing, diminished throughout bilaterally. GASTROINTESTINAL: Abdomen soft, non-tender, obese, normal BS. Tube feeds infusing. NEURO: RASS -2 on mechanical ventilation, on fentanyl, Versed and propofol infusion, to maintain ventilator synchrony. Opens eyes and weakly follows commands Procedures Shiley 6.0 XLT tracheostomy exchange under visual direction by general surgery and with GlideScope, by anesthesiologist. Date of Insertion: Apr 24, 2016 Date of Insertion: Apr 26, 2016 Line: PICC Side: Right A/P Assessment and Plan ASSESSMENT Acute hypercapnic and hypoxemic respiratory failure Healthcare associated pneumonia MDR Pseudomonas Sepsis/persistent fever CHF exacerbation CO2 narcosis Tracheostomy forestry pilot balloon damage -status post exchange with new Shiley 6.0 Proximal XLT 05/02/16) Chronic Respiratory Failure s/p Tracheostomy 4 years ago (Shiley 6.0 Proximal XLT) COPD/obesity hypoventilation syndrome Morbid Obesity BMI 67 History of pulmonary embolism 4 years ago Chronic atrial fibrillation Anxiety CHF (Echo 2013 EF 40-45%; ECHO 08/2015 showing a grossly normal systolic function) Hypertension Hypothyroidism PLAN NEURO: CO2 narcosis Anxiety -Maintain optimal sedation, with RASS -2, due to severe hypoxemic respiratory failure for ventilator synchrony. -Continue Propofol , Versed and Fentanyl. -Sedation vacation if tolerated without hypoxia. (Currently avoid due to high vent settings, PEEP and severe hypoxia) RESP: Acute hypercapnic and hypoxemic respiratory failure Healthcare associated pneumonia Tracheostomy forestry pilot balloon damage (Shiley 6.0 Proximal XLT) s/p new trach placement 05/02 Chronic Respiratory Failure s/p Tracheostomy 4 years ago COPD/obesity hypoventilation syndrome History of pulmonary embolism 4 years ago Leukocytosis Pulmonary edema -Continue mechanical ventilation PRVC TV 650 iT 1.5, PEEP 16 FiO2 .40, Titrate to keep SaO2 >88% -Flolan off -Healthcare associated pneumonia (MDRO) is being treated with IV Vancomycin, Zerbaxa and Colistin nebs. IV Diflucan for heather UTI. -ID appreciated -Sputum culture revealed Pseudomonas MDR -DuoNeb every 4 hours scheduled -Pulmicort BID (home med) -Continue IV Solu-Medrol to 60 mg every 6 hour - start to yocasta -Therapeutic Lovenox 150 mg every 12 hours -Chest x-ray bibasilar infiltrates unchanged CV: CHF exacerbation Pulmonary edema Chronic atrial fibrillation -Bumex D/Renato due to worsening hyperchloremia and hypernatremia -Metolazone 5 mg po daily -A. fib rate controlled -Therapeutic Lovenox 150 mg twice a day GI: Super morbid obesity with BMI of 68 -Tube feeds Glucerna 30/hr -IV Protonix IV -SSI per ICU protocol - increase Levemir : -Monitor potassium, phosphorus and magnesium closely -Scheduled doses of potassium stop due to hyperkalemia -Monitor renal function closely. -Urine culture revealed Heather-, Fluconazole -Strict I&O ID: Healthcare associated pneumonia Sepsis MDRO Possible cellulitis right arm and fast Leukocytosis Recurrent fever -Continue ATB given by ID -Blood urine and blood culture NGTD. -Wound culture Pseudomonas MDR -Sputum culture-Pseudomonas MDR-colistin inhalation -ID consult appreciated HEME: History of PE on chronic anticoagulation with Xarelto Leukocytosis -Monitor CBC, CMP, coags -Xarelto for PE 4 yrs ago. -Hold Xarelto. -Changed to Lovenox 150 mg twice a day ENDO: Hypothyroidism -Electrolyte replacement protocol -Continue levothyroxine 25 mcgs IV daily PROPH: -Bilateral lower extremity SCDs. Lovenox DVT prophylaxis. IV Protonix for GI prophylaxis LINES: - PICC line (day 10) RUE No DVT on US Critical Care: The total critical care time was 35 minutes. Time to perform other separately billable procedures was not included in the critical care time. Adin Dobson MD May 09, 2016 15:11
--- NOTE | 2016-05-09 15:13 | HHI.IDPN ---
Subjective Subjective Remarks Notes reviewed Temps 99+ FiO2 at 0.65 Awake, following commands US RUE, no DVT BC negative repeat sputum with Providencia UC with Proteus Antibiotics Rocephin Zyvox - to finish 05/13 Colistin nebs Diflucan Lines PICC RUE Past Medical History Chronic Respiratory Failure s/p Tracheostomy 4 years ago Morbid Obesity w/ BMI 67.6 Atrial fibrillation Pulmonary embolism 4 years ago Anxiety CHF (Echo 06/07/2014 w/ EF 40-45%; ECHO 08/2015 showing a grossly normal systolic function) HTN Hypothyroidism Past Surgical History Tracheostomy Tonsillectomy Allergies: Coded Allergies: *MDRO Multi-Drug Resistant Organism (Verified Adverse Reaction, Unknown, 05/08/16) XDR Pseudomonas aeruginosa (sputum) - 09/18/15; (sputum & wound) - 04/27/16 Objective . Vital Signs Date Time Temp Pulse Resp B/P Pulse Ox O2 Delivery O2 Flow Rate FiO2 05/09/16 14:00 87 05/09/16 12:48 95 65 05/09/16 12:00 99.2 91 22 122/70 94 05/09/16 12:00 91 05/09/16 12:00 70 05/09/16 10:05 95 70 05/09/16 10:00 84 05/09/16 08:00 111 05/09/16 08:00 75 05/09/16 08:00 99.1 111 22 135/74 88 05/09/16 07:23 93 60 05/09/16 06:00 103 05/09/16 04:15 91 50 05/09/16 04:00 99.1 94 22 147/78 91 05/09/16 04:00 94 05/09/16 04:00 50 05/09/16 02:00 90 05/09/16 00:22 92 50 05/09/16 00:00 99.7 89 22 147/78 92 05/09/16 00:00 89 05/09/16 00:00 50 05/08/16 22:27 92 50 05/08/16 22:00 81 05/08/16 20:01 95 50 05/08/16 20:00 99.5 80 22 136/80 93 05/08/16 20:00 80 05/08/16 20:00 50 05/08/16 18:00 82 05/08/16 16:00 91 05/08/16 16:00 50 05/08/16 16:00 99.1 86 22 138/73 91 05/08/16 15:37 91 50 05/08/16 05/08/16 05/09/16 15:00 23:00 07:00 Intake Total 1200 ml 1636 ml 875 ml Output Total 1850 ml 450 ml 475 ml Balance -650 ml 1186 ml 400 ml IV Total 848 ml 1408 ml 572 ml Tube Feeding 302 ml 168 ml 183 ml Tube Irrigant 50 ml 60 ml 120 ml Output Urine Total 1850 ml 450 ml 475 ml # Bowel Movements 0 0 1 . Laboratory Tests Test 05/08/16 05/09/16 04:30 04:30 White Blood Count 16.7 TH/MM3 17.0 TH/MM3 Red Blood Count 5.24 MIL/MM3 5.03 MIL/MM3 Hemoglobin 12.0 GM/DL 12.0 GM/DL Hematocrit 39.6 % 38.2 % Mean Corpuscular Volume 75.6 FL 76.0 FL Mean Corpuscular Hemoglobin 22.8 PG 23.9 PG Mean Corpuscular Hemoglobin 30.2 % 31.4 % Concent Red Cell Distribution Width 19.6 % 19.6 % Platelet Count 188 TH/MM3 194 TH/MM3 Mean Platelet Volume 9.8 FL 10.3 FL Neutrophils (%) (Auto) 94.7 % 92.7 % Lymphocytes (%) (Auto) 3.1 % 4.7 % Monocytes (%) (Auto) 2.1 % 2.5 % Eosinophils (%) (Auto) 0.0 % 0.0 % Basophils (%) (Auto) 0.1 % 0.1 % Neutrophils # (Auto) 15.8 TH/MM3 15.8 TH/MM3 Lymphocytes # (Auto) 0.5 TH/MM3 0.8 TH/MM3 Monocytes # (Auto) 0.3 TH/MM3 0.4 TH/MM3 Eosinophils # (Auto) 0.0 TH/MM3 0.0 TH/MM3 Basophils # (Auto) 0.0 TH/MM3 0.0 TH/MM3 CBC Comment AUTO DIFF AUTO DIFF Differential Comment AUTO DIFF FINAL DIFF CONFIRMED MANUAL Platelet Estimate NORMAL NORMAL Platelet Morphology Comment NORMAL NORMAL Differential Total Cells 100 Counted Neutrophils % (Manual) 81 % Band Neutrophils % 12 % Lymphocytes % 4 % Monocytes % 3 % Neutrophils # (Manual) 15.8 TH/MM3 Target Cells 1+ Tear Drop Cells 1+ Ovalocytes 1+ Laboratory Tests Test 05/08/16 05/08/16 05/09/16 04:30 18:22 04:30 Sodium Level 148 MEQ/L 145 MEQ/L 148 MEQ/L Potassium Level 5.4 MEQ/L 4.2 MEQ/L 3.8 MEQ/L Chloride Level 109 MEQ/L 105 MEQ/L 106 MEQ/L Carbon Dioxide Level 33.0 MEQ/L 31.4 MEQ/L 32.5 MEQ/L Anion Gap 6 MEQ/L 9 MEQ/L 10 MEQ/L Blood Urea Nitrogen 81 MG/DL 80 MG/DL 74 MG/DL Creatinine 1.17 MG/DL 1.07 MG/DL 1.01 MG/DL Estimat Glomerular Filtration 72 ML/MIN 80 ML/MIN 86 ML/MIN Rate Random Glucose 239 MG/DL 258 MG/DL 252 MG/DL Calcium Level 9.7 MG/DL 9.0 MG/DL 9.6 MG/DL Phosphorus Level 3.4 MG/DL 3.4 MG/DL Magnesium Level 2.6 MG/DL 2.4 MG/DL Total Bilirubin 0.8 MG/DL 0.7 MG/DL Aspartate Amino Transf 14 U/L 22 U/L (AST/SGOT) Alanine Aminotransferase 25 U/L 27 U/L (ALT/SGPT) Alkaline Phosphatase 45 U/L 46 U/L Total Protein 7.0 GM/DL 6.4 GM/DL Albumin 3.2 GM/DL 3.0 GM/DL Imaging Chest X-Ray 05/05/16 0600 Signed Impressions: Service Date/Time: Thursday, May 05, 2016 01:56 - CONCLUSION: Improved aeration bilaterally particularly in the left upper lobe. Tube and catheter are stable. Amador Brock MD Chest X-Ray 05/03/16 0000 Signed Impressions: Service Date/Time: Tuesday, May 03, 2016 06:40 - CONCLUSION: Increasing bilateral diffuse pulmonary infiltrates compared to the prior study. Lázaro Frankel MD Upper Extremity Ultrasound 05/02/16 0000 Signed Impressions: Service Date/Time: April 20:51 - CONCLUSION: No DVT. Garcia Lujan MD Abdomen X-Ray 04/29/16 0000 Signed Impressions: Service Date/Time: Friday, April 29, 2016 07:12 - CONCLUSION: Suspect Dobbhoff tube in the distal stomach. Garcia Lujan MD Physical Exam GENERAL: Awake,responding, on the vent, not in distress. SKIN: Warm and moist. No generalized rash. No cyanosis noted. HEAD: Atraumatic. Normocephalic. No temporal or scalp tenderness. EYES: [place] conjunctivae. Pupils equal round and reactive. No scleral icterus. ENT: Nose without purulent drainage. Moist mucosa. NECK: Short and obese, has trach, site ok. Supple, no meningeal signs. CARDIOVASCULAR: Regular rate and rhythm. Distant heart sounds. RESPIRATORY: Decreased BS bilaterally. GASTROINTESTINAL: Abdomen soft, morbidly obese, nt tender, not distended. Bowel sounds present and hypoactive. MUSCULOSKELETAL: Extremities without clubbing, cyanosis. Has mild pitting edema. NEUROLOGICAL: Awake and following LINE: PICC in RUE, site ok, : [place] in place, urine looks clear Assessment & Plan Remarks IMPRESSION Chronic respiratory failure, has new trach, has HCAP - C/S with MDR PSAE MDR PSAE PNA, S/P Rx New HCAP, S/S Providencia UTI, with Proteus Fevers, better Leukocytosis, due to PNA, and partly due to steroids Has an area of cellulitis in his RUE and R chest - resolved Morbid obesity Hx PE RECOMMENDATION Continue colistin nebs Continue Zyvox to complete Rx for the cellulitis on his chest Continue Diflucan - to finish 05/13 Continue Rocephin to cover Proteus and Providencia Monitor temps Follow C/S Monitor progress Weaning per CCM Dana Tam MD May 09, 2016 15:13
[2016-05-09] MEDS: FLUCONAZOLE 100 MG TAB PO SCH (16:10)
[2016-05-10] VITALS (19 sets, daily range): BP systolic 132–173; BP diastolic 69–79; PULSE 66–93; RESP 22–23; TEMP 96.8–98.5; O2SAT 91–97
[2016-05-10] MEDS: MEDIUM DOSE INSULIN NOVOLIN REGULAR SUPPLEMENTAL SCALE SQ SCH ×6 (00:15→20:39)
[2016-05-10] MEDS: PROPOFOL 1000 MG/100 ML INJ 100 ML IV SCH ×12 (00:16→22:13)
[2016-05-10] MEDS: FREE WATER G-TUBE SCH ×3 (00:16→16:32)
[2016-05-10] MEDS: methylPREDNISolone SOD SUCC 40 MG/1 ML VIAL IV PUSH SCH ×2 (00:16→05:48)
[2016-05-10] MEDS: PANTOPRAZOLE SODIUM 40 MG VIAL IV PUSH SCH (02:16)
--- NOTE | 2016-05-10 04:26 | RADRPT ---
EXAM DATE/TIME: 05/10/2016 02:45 [place] COMPARISON: CHEST SINGLE AP, May 09, 2016, 2:52. INDICATIONS : Shortness of breath. MEDICAL HISTORY : Hypertension. Congestive heart failure. SURGICAL HISTORY : Tracheostomy. ENCOUNTER: Subsequent ACUITY: 2 weeks PAIN SCORE: Non-responsive. LOCATION: Bilateral chest FINDINGS: A single portable frontal view of the chest shows worsening infiltrate within the right lung base. Le ft lung is clear. Heart normal in size. Endotracheal tube tip is approximately 5 cm cephalad to the c leroy. Nasogastric tube courses off the inferior margin of the film. CONCLUSION: Worsening right lower lobe infiltrate. Jeremiah Walton Jr., MD on May 10, 2016 at 4:24 Board Certified Radiologist. This report was verified electronically.
[2016-05-10 05:26] LABS: BLOOD GAS BASE EXCESS 4.9 mmol/L (-2-2); BLOOD GAS HCO3 30 mmol/L (22-26); BLOOD GAS METHEMOGLOBIN 1.8 % (0-2); BLOOD GAS O2 HGB SATURATION 92 % (90-100); BLOOD GAS OXYGEN CONTENT 14.9 Vol % (12.0-20.0); BLOOD GAS PCO2 51 mmHg (38-42); BLOOD GAS PO2 85 mmHg (61-120); BLOOD GAS TOTAL HGB 11.4 G/DL (12.0-16.0); TEMP CORR TO 98.6
[2016-05-10 05:28] LABS: CRITICAL VALUE YES; OXYGEN DEVICE VENTILATOR
[2016-05-10 05:30] LABS: DRAW SITE RT RADIAL; FIO2 65 %; NUMBER OF ARTERIAL PUNCTURES 1; STAT NO; ULNAR PULSE PRESENT; VENT SETTINGS PRVC/AC
[2016-05-10] MEDS: LEVOTHYROXINE SODIUM 100 MCG VIAL IV PUSH SCH (05:45)
[2016-05-10] MEDS: ENOXAPARIN SODIUM 150 MG/ML SYRINGE SQ SCH (05:48)
[2016-05-10] MEDS: fentaNYL DRIP 250 ML IV SCH ×2 (06:41→17:37)
[2016-05-10 06:45] LABS: AUTOMATED NEUTROPHIL # 13.5 TH/MM3 (1.8-7.7); BASOPHIL % 0.1 % (0.0-2.0); HEMATOCRIT 35.6 % (39.0-51.0); LYMPH % 6.5 % (9.0-44.0); MEAN CELL VOLUME 74.6 FL (80.0-100.0); MEAN CORPUSCULAR HEMOGLOBIN 23.5 PG (27.0-34.0); MEAN CORPUSCULAR HGB CONC 31.4 % (32.0-36.0); MONO % 2.3 % (0.0-8.0); NEUT % 91.1 % (16.0-70.0); PLATELET COUNT 176 TH/MM3 (150-450); RED BLOOD COUNT 4.77 MIL/MM3 (4.50-5.90); RED CELL DISTRIBUTION WIDTH 19.2 % (11.6-17.2); WHITE BLOOD COUNT 14.8 TH/MM3 (4.0-11.0)
[2016-05-10 06:56] LABS: ALKALINE PHOSPHATASE 41 U/L (45-117); ALT (GPT) 32 U/L (12-78); ANION GAP 11 MEQ/L (5-15); BICARBONATE 31.3 MEQ/L (21.0-32.0); CHLORIDE 104 MEQ/L (98-107); GLOMERULAR FILTRATION RATE 115 ML/MIN (>89); MAGNESIUM 2.1 MG/DL (1.5-2.5); POTASSIUM 3.2 MEQ/L (3.5-5.1); SODIUM (NA) 146 MEQ/L (136-145); TOTAL BILIRUBIN ADULT 0.8 MG/DL (0.2-1.0)
[2016-05-10 07:06] LABS: HEMO FLAGS AUTO DIFF
[2016-05-10 07:11] LABS: AST (GOT) 23 U/L (15-37); BLOOD UREA NITROGEN 56 MG/DL (7-18)
[2016-05-10] MEDS: RESP: ALBUTEROL 2.5 MG/IPRATROPIUM 0.5 MG NEB (PRN) NEB ×2 (07:15→15:12)
[2016-05-10] MEDS: RESP: BUDESONIDE 0.5 MG/2 ML NEB NEB SCH ×2 (07:15→20:01)
--- NOTE | 2016-05-10 07:36 | HHI.CCPN ---
Subjective Remarks/Hospital Course 31 year old morbidly obese (BMI 68) male with chronic respiratory failure s/p tracheostomy 4 years ago, atrial fibrillation and pulmonary embolism on Xarelto , COPD, CHF and h/o HTN. He presented from [facility] with low oxygen saturation apparently his oxygen saturation was 82% on RA. He was placed back on 6L of oxygen via his trach mask and given a breathing treatment, initially improved however he started drifting back to low 80s again. Chest x-ray showed bibasilar infiltrates and pulmonary edema. [facility] and was started on IV steroids IV vancomycin and Zosyn and Levaquin for healthcare associated pneumonia. After starting ACV, patient was more awake but there was a significant amount of air leak around his tracheostomy. Patient has had a Shiley 6.0 Proximal XLT, but the drone pilot balloon had been cut off. 05/02 the patient became acutely hypoxemic with a large cuff leak, underwent emergency trach exchange at bedside by Dr. Macias. FiO2 65% PEEP 14 Objective Vital Signs Date Time Temp Pulse Resp B/P Pulse Ox O2 Delivery O2 Flow Rate FiO2 05/10/16 06:00 70 05/10/16 04:58 95 65 05/10/16 04:00 98.2 22 154/75 Intake and Output 05/09/16 05/09/16 05/10/16 08:00 16:00 00:00 Intake Total 875 ml 1328 ml 917 ml Output Total 475 ml 870 ml 625 ml Balance 400 ml 458 ml 292 ml Result Diagram: 05/10/16 0625 05/10/16 0625 Other Results Laboratory Tests Test 05/10/16 05:15 Blood Gas Puncture Site RT RADIAL Blood Gas Patient Temperature 98.6 Blood Gas HCO3 30 mmol/L (22-26) Blood Gas Base Excess 4.9 mmol/L (-2-2) Blood Gas Oxygen Saturation 92 % (90-100) Arterial Blood pH 7.38 (7.380-7.420) Arterial Blood Partial 51 mmHg (38-42) Pressure CO2 Arterial Blood Partial 85 mmHg Pressure O2 (61-120) Arterial Blood Oxygen Content 14.9 Vol % (12.0-20.0) Arterial Blood 1.0 % (0-4) Carboxyhemoglobin Arterial Blood Methemoglobin 1.8 % (0-2) Blood Gas Hemoglobin 11.4 G/DL (12.0-16.0) Oxygen Delivery Device VENTILATOR Blood Gas Ventilator Setting PRVC/AC Blood Gas Inspired Oxygen 65 % Imaging Last 24 hours Impressions Chest X-Ray 05/10/16 0600 Signed Impressions: Service Date/Time: Tuesday, May 10, 2016 02:45 - CONCLUSION: Worsening right lower lobe infiltrate. Jeremiah Walton Jr., MD Objective Remarks GENERAL: Lying in bed, on mech vent via trach in situ, sedated due to severe hypoxia, but opens eyes SKIN: Warm and dry. HEAD: Normocephalic. Atraumatic. EYES: PERRL. No scleral icterus. No injection or drainage. ENT: No nasal drainage. Oral and nasal mucosa moist NECK: Shiley 6.0 Proximal XLT, (new trach placed 05/02/16) CARDIOVASCULAR: Regular rate and rhythm without murmurs, gallops, or rubs. Distant heart sounds RESPIRATORY: On mechanical ventilation via tracheostomy. Air entry decreased bilaterally at bases. No wheezing, diminished throughout bilaterally. GASTROINTESTINAL: Abdomen soft, non-tender, obese, normal BS. Tube feeds infusing. NEURO: RASS -2 on mechanical ventilation, on fentanyl, Versed and propofol infusion, to maintain ventilator synchrony. Opens eyes and weakly follows commands Procedures Shiley 6.0 XLT tracheostomy exchange under visual direction by general surgery and with GlideScope, by anesthesiologist. Date of Insertion: Apr 24, 2016 Date of Insertion: Apr 26, 2016 Line: PICC Side: Right A/P Assessment and Plan ASSESSMENT Acute hypercapnic and hypoxemic respiratory failure Healthcare associated pneumonia MDR Pseudomonas Sepsis/persistent fever CHF exacerbation CO2 narcosis Tracheostomy drone pilot balloon damage -status post exchange with new Shiley 6.0 Proximal XLT 05/02/16) Chronic Respiratory Failure s/p Tracheostomy 4 years ago (Shiley 6.0 Proximal XLT) COPD/obesity hypoventilation syndrome Morbid Obesity BMI 67 History of pulmonary embolism 4 years ago Chronic atrial fibrillation Anxiety CHF (Echo 2013 EF 40-45%; ECHO 08/2015 showing a grossly normal systolic function) Hypertension Hypothyroidism PLAN NEURO: CO2 narcosis Anxiety -Maintain optimal sedation, with RASS -2, due to severe hypoxemic respiratory failure for ventilator synchrony. -Continue Propofol , Versed and Fentanyl. -Sedation vacation if tolerated without hypoxia. RESP: Acute hypercapnic and hypoxemic respiratory failure Healthcare associated pneumonia Tracheostomy drone pilot balloon damage (Shiley 6.0 Proximal XLT) s/p new trach placement 05/02 Chronic Respiratory Failure s/p Tracheostomy 4 years ago COPD/obesity hypoventilation syndrome History of pulmonary embolism 4 years ago Leukocytosis Pulmonary edema - Worsening RLL infiltrate - Bronchoscopy today - Continue mechanical ventilation PRVC TV 650 iT 1.5, PEEP 16 FiO2 .40, Titrate to keep SaO2 >88% - Flolan off - Healthcare associated pneumonia (MDRO) is being treated with IV Vancomycin, Zerbaxa and Colistin nebs. - ID appreciated - Sputum culture revealed Pseudomonas MDR - DuoNeb every 4 hours scheduled - Pulmicort BID (home med) - Continue IV Solu-Medrol to 60 mg every 6 hour - start to yocasta - Therapeutic Lovenox 150 mg every 12 hours - Chest x-ray bibasilar infiltrates unchanged CV: CHF exacerbation Pulmonary edema Chronic atrial fibrillation - Bumex D/Renato due to worsening hyperchloremia and hypernatremia - Metolazone 5 mg po daily - A. fib rate controlled - Therapeutic Lovenox 150 mg twice a day GI: Super morbid obesity with BMI of 68 - Tube feeds Glucerna 30/hr - IV Protonix IV will change to Pepcid - SSI per ICU protocol - Increase Levemir : - Monitor potassium, phosphorus and magnesium closely - Scheduled doses of potassium stop due to hyperkalemia - Monitor renal function closely. - Urine culture revealed Dionne-, Fluconazole - Strict I&O ID: Healthcare associated pneumonia Sepsis MDRO Possible cellulitis right arm and fast Leukocytosis Recurrent fever - Continue ATB given by ID - Blood urine and blood culture NGTD. - Wound culture Pseudomonas MDR - Sputum culture-Pseudomonas MDR-colistin inhalation - ID consult appreciated - Bronchoscopy and re-culture today HEME: History of PE on chronic anticoagulation with Xarelto Leukocytosis -Monitor CBC, CMP, coags -Xarelto for PE 4 yrs ago. -Hold Xarelto. -Changed to Lovenox 150 mg twice a day ENDO: Hypothyroidism -Electrolyte replacement protocol -Continue levothyroxine 25 mcgs IV daily PROPH: -Bilateral lower extremity SCDs. Lovenox DVT prophylaxis. IV Protonix for GI prophylaxis LINES: - PICC line (day 10) RUE No DVT on US Critical Care: The total critical care time was 35 minutes. Time to perform other separately billable procedures was not included in the critical care time. Adin Dobson MD May 10, 2016 07:36
[2016-05-10] MEDS: METOLAZONE 5 MG TAB NG SCH (07:40)
[2016-05-10] MEDS: INSULIN DETEMIR 100 UNITS/ML VIAL SQ SCH ×2 (07:40→20:39)
[2016-05-10] MEDS: MONTELUKAST SODIUM 10 MG TAB PO SCH (07:41)
[2016-05-10] MEDS: LINEZOLID 600 MG TAB PO SCH ×2 (07:41→20:39)
[2016-05-10] MEDS: POTASSIUM CHLOR 40 MEQ PREMIX 100 ML IV PRN ×2 (07:41→10:36)
[2016-05-10] MEDS: FENOFIBRATE 48 MG TAB PO SCH (07:41)
[2016-05-10] MEDS: ATORVASTATIN 10 MG TAB PO SCH (07:41)
[2016-05-10] MEDS: ALLOPURINOL 300 MG TAB PO SCH (07:41)
[2016-05-10] MEDS: METOCLOPRAMIDE HCL 10 MG/2 ML VIAL IV PUSH SCH ×2 (07:41→20:40)
[2016-05-10] MEDS: CHLORHEXIDINE 0.12% (ORAL KIT) 15 ML CUP MT SCH ×2 (07:42→20:39)
[2016-05-10] MEDS: SODIUM CHLORIDE 0.9% FLUSH 5 ML FLUSH FLUSH SCH ×2 (07:42→20:40)
[2016-05-10] MEDS: MICONAZOLE NITRATE 2% CREAM 15 GM TOP SCH ×2 (07:43→20:41)
[2016-05-10] MEDS: NYSTATIN 100,000 U/GM PWD 15 GM BTL TOPICAL SCH ×2 (07:44→20:40)
[2016-05-10] MEDS: RESP: COLISTIN 150 MG VIAL NEB SCH (07:55)
[2016-05-10] MEDS: POTASSIUM CHLORIDE 20 MEQ PWD PACKET NG SCH (09:00)
[2016-05-10] MEDS ORDERED: INSULIN DETEMIR 100 UNITS/ML VIAL SQ SCH (09:00)
[2016-05-10] MEDS: FAMOTIDINE 20 MG TAB PO SCH ×2 (09:43→20:39)
[2016-05-10] MEDS: predniSONE 5 MG/5 ML CUP PO SCH (09:43)
[2016-05-10 10:02] LABS: BANDS 1 % (0-6); METAMYELOCYTES 1 % (0-1); MYELOCYTES 2 % (0-0); NEUTROPHIL # MANUAL DIFF 13.5 TH/MM3 (1.8-7.7); POLYS (SEG NEUTROPHILS) 87 % (16-70); WBC DIFF SAMPLE 100
[2016-05-10 10:03] LABS: PLATELET ESTIMATE SMEAR NORMAL (NORMAL); PLATELET MORPHOLOGY NORMAL (NORMAL); SCAN/DIFF FINAL DIFF MANUAL
--- NOTE | 2016-05-10 12:59 | HHI.IDPN ---
Subjective Subjective Remarks Notes reviewed D/W RN One low grade temps last night For bronch today ON the vent, FiO2 0.6 CXR with increased consolidation Awake, following commands WBC improving Antibiotics Rocephin Zyvox - to finish 05/13 Colistin nebs Diflucan Lines PICC RUE Past Medical History Chronic Respiratory Failure s/p Tracheostomy 4 years ago Morbid Obesity w/ BMI 67.6 Atrial fibrillation Pulmonary embolism 4 years ago Anxiety CHF (Echo 06/07/2014 w/ EF 40-45%; ECHO 08/2015 showing a grossly normal systolic function) HTN Hypothyroidism Past Surgical History Tracheostomy Tonsillectomy Allergies: Coded Allergies: *MDRO Multi-Drug Resistant Organism (Verified Adverse Reaction, Unknown, 05/08/16) XDR Pseudomonas aeruginosa (sputum) - 09/18/15; (sputum & wound) - 04/27/16 Objective . Vital Signs Date Time Temp Pulse Resp B/P Pulse Ox O2 Delivery O2 Flow Rate FiO2 05/10/16 10:03 91 65 05/10/16 10:00 73 05/10/16 08:00 65 05/10/16 08:00 74 05/10/16 08:00 98.5 74 22 138/71 93 05/10/16 07:16 94 65 05/10/16 06:00 70 05/10/16 04:58 95 65 05/10/16 04:00 66 05/10/16 04:00 65 05/10/16 04:00 98.2 66 22 154/75 95 05/10/16 02:00 67 05/10/16 00:00 82 05/10/16 00:00 98.4 82 22 173/79 93 05/10/16 00:00 65 05/09/16 23:45 94 65 05/09/16 22:00 81 05/09/16 20:00 82 05/09/16 20:00 65 05/09/16 20:00 99.2 84 22 147/79 93 05/09/16 19:31 93 65 05/09/16 18:00 91 05/09/16 17:04 90 65 05/09/16 16:00 100.1 101 22 143/73 91 05/09/16 16:00 101 05/09/16 16:00 70 05/09/16 14:00 87 05/09/16 05/09/16 05/10/16 15:00 23:00 07:00 Intake Total 1328 ml 917 ml 959 ml Output Total 870 ml 625 ml 575 ml Balance 458 ml 292 ml 384 ml IV Total 816 ml 643 ml 646 ml Tube Feeding 292 ml 214 ml 253 ml Tube Irrigant 120 ml Other 100 ml 60 ml 60 ml Output Urine Total 870 ml 625 ml 575 ml # Bowel Movements 1 1 . Laboratory Tests Test 05/09/16 05/10/16 04:30 06:25 White Blood Count 17.0 TH/MM3 14.8 TH/MM3 Red Blood Count 5.03 MIL/MM3 4.77 MIL/MM3 Hemoglobin 12.0 GM/DL 11.2 GM/DL Hematocrit 38.2 % 35.6 % Mean Corpuscular Volume 76.0 FL 74.6 FL Mean Corpuscular Hemoglobin 23.9 PG 23.5 PG Mean Corpuscular Hemoglobin 31.4 % 31.4 % Concent Red Cell Distribution Width 19.6 % 19.2 % Platelet Count 194 TH/MM3 176 TH/MM3 Mean Platelet Volume 10.3 FL 10.2 FL Neutrophils (%) (Auto) 92.7 % 91.1 % Lymphocytes (%) (Auto) 4.7 % 6.5 % Monocytes (%) (Auto) 2.5 % 2.3 % Eosinophils (%) (Auto) 0.0 % 0.0 % Basophils (%) (Auto) 0.1 % 0.1 % Neutrophils # (Auto) 15.8 TH/MM3 13.5 TH/MM3 Lymphocytes # (Auto) 0.8 TH/MM3 1.0 TH/MM3 Monocytes # (Auto) 0.4 TH/MM3 0.3 TH/MM3 Eosinophils # (Auto) 0.0 TH/MM3 0.0 TH/MM3 Basophils # (Auto) 0.0 TH/MM3 0.0 TH/MM3 CBC Comment AUTO DIFF AUTO DIFF Differential Total Cells 100 100 Counted Neutrophils % (Manual) 81 % 87 % Band Neutrophils % 12 % 1 % Lymphocytes % 4 % 7 % Monocytes % 3 % 2 % Neutrophils # (Manual) 15.8 TH/MM3 13.5 TH/MM3 Differential Comment FINAL DIFF FINAL DIFF MANUAL MANUAL Platelet Estimate NORMAL NORMAL Platelet Morphology Comment NORMAL NORMAL Target Cells 1+ Tear Drop Cells 1+ Ovalocytes 1+ Metamyelocytes 1 % Myelocytes 2 % Laboratory Tests Test 05/08/16 05/09/16 05/10/16 18:22 04:30 06:25 Sodium Level 145 MEQ/L 148 MEQ/L 146 MEQ/L Potassium Level 4.2 MEQ/L 3.8 MEQ/L 3.2 MEQ/L Chloride Level 105 MEQ/L 106 MEQ/L 104 MEQ/L Carbon Dioxide Level 31.4 MEQ/L 32.5 MEQ/L 31.3 MEQ/L Anion Gap 9 MEQ/L 10 MEQ/L 11 MEQ/L Blood Urea Nitrogen 80 MG/DL 74 MG/DL 56 MG/DL Creatinine 1.07 MG/DL 1.01 MG/DL 0.78 MG/DL Estimat Glomerular Filtration 80 ML/MIN 86 ML/MIN 115 ML/MIN Rate Random Glucose 258 MG/DL 252 MG/DL 250 MG/DL Calcium Level 9.0 MG/DL 9.6 MG/DL 8.9 MG/DL Phosphorus Level 3.4 MG/DL 3.1 MG/DL Magnesium Level 2.4 MG/DL 2.1 MG/DL Total Bilirubin 0.7 MG/DL 0.8 MG/DL Aspartate Amino Transf 22 U/L 23 U/L (AST/SGOT) Alanine Aminotransferase 27 U/L 32 U/L (ALT/SGPT) Alkaline Phosphatase 46 U/L 41 U/L Total Protein 6.4 GM/DL 5.7 GM/DL Albumin 3.0 GM/DL 2.7 GM/DL Imaging Chest X-Ray 05/10/16599 Signed Impressions: Service Date/Time: Tuesday, May 10, 2016 02:45 - CONCLUSION: Worsening right lower lobe infiltrate. Jeremiah Walton Jr., MD Chest X-Ray 05/09/16599 Signed Impressions: Service Date/Time: April 02:52 - CONCLUSION: No significant change has occurred. Bill Zavala MD Chest X-Ray 05/08/16599 Signed Impressions: Service Date/Time: Sunday, May 08, 2016 04:01 - CONCLUSION: No significant change has occurred. Bill Zavala MD Chest X-Ray 05/05/16599 Signed Impressions: Service Date/Time: Thursday, May 05, 2016 01:56 - CONCLUSION: Improved aeration bilaterally particularly in the left upper lobe. Tube and catheter are stable. Amador Brock MD Chest X-Ray 05/03/16 0000 Signed Impressions: Service Date/Time: Tuesday, May 03, 2016 06:40 - CONCLUSION: Increasing bilateral diffuse pulmonary infiltrates compared to the prior study. Lázaro Frankel MD Upper Extremity Ultrasound 05/02/16 0000 Signed Impressions: Service Date/Time: April 20:51 - CONCLUSION: No DVT. Garcia Lujan MD Abdomen X-Ray 04/29/16 0000 Signed Impressions: Service Date/Time: Friday, April 29, 2016 07:12 - CONCLUSION: Suspect Dobbhoff tube in the distal stomach. Garcia Lujan MD Physical Exam GENERAL: Awake,responding, on the vent, not in distress. SKIN: Warm and moist. No generalized rash. No cyanosis noted. HEAD: Atraumatic. Normocephalic. No temporal or scalp tenderness. EYES: [place] conjunctivae. Pupils equal round and reactive. No scleral icterus. ENT: Nose without purulent drainage. Moist mucosa. NECK: Short and obese, has trach, site ok. Supple, no meningeal signs. CARDIOVASCULAR: Regular rate and rhythm. Distant heart sounds. RESPIRATORY: Decreased BS bilaterally. GASTROINTESTINAL: Abdomen soft, morbidly obese, nt tender, not distended. Bowel sounds present and hypoactive. MUSCULOSKELETAL: Extremities without clubbing, cyanosis. Has mild pitting edema. NEUROLOGICAL: Awake and following LINE: PICC in RUE, site ok, : [place] in place, urine looks clear Assessment & Plan Remarks IMPRESSION Chronic respiratory failure, has new trach, has HCAP - C/S with MDR PSAE MDR PSAE PNA, S/P Rx New HCAP, C/S Providencia - increasing consolidation R base, ?plugging UTI, with Proteus Fevers, better Leukocytosis, due to PNA, and partly due to steroids - better Has an area of cellulitis in his RUE and R chest - resolved Morbid obesity Hx PE RECOMMENDATION Stop colistin nebs Continue Zyvox to complete Rx for the cellulitis on his chest Continue Diflucan - to finish 05/13 Continue Rocephin to cover Proteus and Providencia - plan 14 days Monitor temps For bronch today Follow new C/S Monitor progress Weaning per CCM D/W RN Dr Patiño covering this weekend Dana Tam MD May 10, 2016 12:59
[2016-05-10] MEDS ORDERED: MIDAZOLAM HCL 5 MG/ML VIAL (1 ML) ONE (13:56)
[2016-05-10] MEDS: FLUCONAZOLE 100 MG TAB PO SCH (16:32)
--- NOTE | 2016-05-10 18:09 | HHI.FPPN ---
Subjective Remarks No acute events overnight. Respiratory status remains about the same. He is tolerating tube feeds. He is responding more to questions. He has no specific complaints this morning. (Joshua Morgan MD R2) Objective Vitals Vital Signs Date Time Temp Pulse Resp B/P Pulse Ox O2 Delivery O2 Flow Rate FiO2 05/10/16 16:00 66 05/10/16 16:00 96.8 66 22 133/69 93 05/10/16 16:00 90 05/10/16 15:57 94 90 05/10/16 14:06 92 100 05/10/16 14:00 93 05/10/16 12:57 92 65 05/10/16 12:00 97.2 68 23 132/70 93 05/10/16 12:00 65 05/10/16 12:00 68 05/10/16 10:03 91 65 05/10/16 10:00 73 05/10/16 08:00 65 05/10/16 08:00 74 05/10/16 08:00 98.5 74 22 138/71 93 05/10/16 07:16 94 65 05/10/16 06:00 70 05/10/16 04:58 95 65 05/10/16 04:00 66 05/10/16 04:00 65 05/10/16 04:00 98.2 66 22 154/75 95 05/10/16 02:00 67 05/10/16 00:00 82 05/10/16 00:00 98.4 82 22 173/79 93 05/10/16 00:00 65 05/09/16 23:45 94 65 05/09/16 22:00 81 05/09/16 20:00 82 05/09/16 20:00 65 05/09/16 20:00 99.2 84 22 147/79 93 05/09/16 19:31 93 65 I/O 05/09/16 05/09/16 05/09/16 05/10/16 05/10/16 05/10/16 06:59 14:59 22:59 06:59 14:59 22:59 Intake Total 875 ml 1328 ml 917 ml 959 ml 1130 ml Output Total 475 ml 870 ml 625 ml 575 ml 810 ml Balance 400 ml 458 ml 292 ml 384 ml 320 ml IV Total 572 ml 816 ml 643 ml 646 ml 915 ml Tube Feeding 183 ml 292 ml 214 ml 253 ml 95 ml Tube Irrigant 120 ml 120 ml 120 ml Other 100 ml 60 ml 60 ml Output Urine Total 475 ml 870 ml 625 ml 575 ml 810 ml # Bowel Movements 1 1 1 1 (Joshua Morgan MD R2) Result Diagram: 05/10/1662405/10/16624 Objective Remarks GENERAL: Morbidly obese. On mechanical ventilation, NG tube in place, no distress. SKIN: Warm and dry. No rashes or lesions. Cellulitis of right chest wall. HEAD: Normocephalic. Atraumatic. ENT: No nasal drainage. Tracheotomy site is clean and dry without drainage. NECK: No JVD. CARDIOVASCULAR: Distant heart sounds. Regular rate and rhythm without murmurs, gallops, or rubs. Peripheral pulses 2+. RESPIRATORY: On mechanical ventilation. PRVC, FiO2 65%, PEEP 16. Clear to auscultation bilaterally. No rales or rhonchi. GASTROINTESTINAL: Abdomen soft, obese, distant bowel sounds. MUSCULOSKELETAL: Lower extremity edema. NEURO: Awake, alert, under sedation. Answers questions with head nods. Attempts to talk but difficult with trach. (Joshua Morgan MD R2) Date of Insertion: Apr 24, 2016 (Joshua Morgan MD R2) Date of Insertion: Apr 26, 2016 Line: PICC Side: Right (Joshua Morgan MD R2) A/P Assessment and Plan Assessment and Plan Acute hypercapnic/hypoxemic respiratory failure Healthcare associated pneumonia with MDR Pseudomonas UTI with proteus mirabilis Sepsis CHF exacerbation CO2 narcosis Chronic Respiratory Failure s/p Tracheostomy 4 years ago (Shiley 6.0 Proximal XLT) COPD/obesity hypoventilation syndrome Morbid Obesity BMI 67 History of pulmonary embolism 4 years ago Chronic atrial fibrillation Anxiety CHF (Echo 2013 EF 40-45%; ECHO 08/2015 showing grossly normal systolic function) Hypertension Hypothyroidism PLAN NEURO: answering questions appropriately with yes or no answers CO2 narcosis Anxiety -Maintain optimal sedation for ventilator synchrony. -Continue Propofol ,Versed and Fentanyl. RESP: FiO2 50%, PEEP 16, on PRVC Acute hypercapnic/hypoxemic respiratory failure Healthcare associated pneumonia New trach placement 05/02 Chronic Respiratory Failure s/p Tracheostomy 4 years ago COPD/obesity hypoventilation syndrome History of pulmonary embolism 4 years ago Pulmonary edema - RLL infiltrate worsening. - Bronchoscopy today -Continue mechanical ventilation PRVC TV 650 iT 1.5, PEEP 16 FiO2 .65, Wean to keep SaO2 >88% -Healthcare associated pneumonia (MDRO) is being treated with IV Rocephin (05/07 - ). IV Diflucan for dionne UTI. ID following -Sputum culture revealed Pseudomonas MDR, providencia stuartii -DuoNeb every 4 hours scheduled -Pulmicort BID (home med) -Continue IV Solu-Medrol to 60 mg every 6 hour, start tapering -Therapeutic Lovenox 150 mg every 12 hours -Chest x-ray bibasilar infiltrates unchanged CV: CHF exacerbation Pulmonary edema Chronic atrial fibrillation -Bumex discontinued due to hyperchloremia/hypernatremia, monitor electrolytes. -Metolazone 5 mg po daily -A. fib rate controlled -Therapeutic Lovenox 150 mg twice a day GI: Super morbid obesity with BMI of 68 -Tube feeds Glucerna 30/hr, tolerating well -Pepcid for GI prophylaxis -SSI per ICU protocol - Levemir increased to 20 units bid due to continued hyperglycemia : -Monitor potassium, phosphorus and magnesium -Potassium decreasing, likely insulin plus stopping potassium. Add back 40 meQ potassium per day. - Free water through Dobhoff tube for hypernatremia/hyperchloremia -Monitor renal function -[place] catheter -Urine culture revealed Dionne-, Fluconazole -Strict I&O ID: Healthcare associated pneumonia Sepsis MDRO Possible cellulitis right arm and fast Leukocytosis Recurrent fever -IV rocephin (05/07 - ) for 14 days to cover Proteus and Providencia, colistin nebs discontinued, Zyvox (for cellulitis) until 05/13. - Diflucan until 05/13. -Blood urine and blood culture NGTD. Repeat blood and urine culture today -Wound culture Pseudomonas MDR -Sputum culture-Pseudomonas MDR-colistin inhalation -ID consulted, follow-up recommendations -Blood cx from 05.03 negative. Urine culture positive for proteus mirabilis. HEME: History of PE on chronic anticoagulation with Xarelto Leukocytosis -Monitor CBC, CMP, coags -Xarelto for PE 4 yrs ago. -Hold Xarelto. -Changed to Lovenox 150 mg twice a day ENDO: Hypothyroidism -Electrolyte replacement protocol -Continue levothyroxine 25 mcgs IV daily PROPH: -Bilateral lower extremity SCDs. Lovenox DVT prophylaxis. IV Protonix for GI prophylaxis LINES: - PICC line Discharge Planning Patient will need to be weaned from mechanical ventilation with stable clinical status. Hopeful for patient to be able to return to long-term rehab facility. ( Joshua Morgan MD R2) Attending Attestation This 31 male is admitted with a chief complaint of Acute Respiratory Failure. Patient has been examined and the case reviewed with the resident physicians. agree with plan (Tanya Cochran MD) Joshua Morgan MD R2 May 10, 2016 18:09 Tanya Cochran MD May 13, 2016 10:30
[2016-05-10] MEDS: RESP: ALBUTEROL 2.5 MG/IPRATROPIUM 0.5 MG NEB (SCH) NEB (20:01)
[2016-05-10] MEDS: POTASSIUM CHLOR 20 MEQ PREMIX 100 ML IV PRN (21:14)
[2016-05-11] VITALS (19 sets, daily range): BP systolic 119–146; BP diastolic 67–77; PULSE 62–98; RESP 11–22; TEMP 97.1–98.6; O2SAT 93–99
[2016-05-11] MEDS: MEDIUM DOSE INSULIN NOVOLIN REGULAR SUPPLEMENTAL SCALE SQ SCH ×6 (00:01→20:00)
[2016-05-11] MEDS: FREE WATER G-TUBE SCH ×3 (00:02→17:00)
[2016-05-11] MEDS: PROPOFOL 1000 MG/100 ML INJ 100 ML IV SCH ×8 (00:02→20:11)
[2016-05-11] MEDS: RESP: ALBUTEROL 2.5 MG/IPRATROPIUM 0.5 MG NEB (SCH) NEB ×4 (03:38→21:15)
[2016-05-11 03:49] LABS: AUTOMATED NEUTROPHIL # 12.9 TH/MM3 (1.8-7.7); BASOPHIL % 0.1 % (0.0-2.0); EOSINOPHIL % 0.2 % (0.0-4.0); HEMATOCRIT 34.7 % (39.0-51.0); LYMPH % 12.4 % (9.0-44.0); LYMPHOCYTE # 1.9 TH/MM3 (1.0-4.8); MEAN CELL VOLUME 74.5 FL (80.0-100.0); MEAN CORPUSCULAR HEMOGLOBIN 23.9 PG (27.0-34.0); MONO % 3.6 % (0.0-8.0); NEUT % 83.7 % (16.0-70.0); PLATELET COUNT 182 TH/MM3 (150-450); RED BLOOD COUNT 4.67 MIL/MM3 (4.50-5.90); RED CELL DISTRIBUTION WIDTH 19.5 % (11.6-17.2); WHITE BLOOD COUNT 15.4 TH/MM3 (4.0-11.0)
[2016-05-11 03:56] LABS: HEMO FLAGS AUTO DIFF
[2016-05-11 04:06] LABS: ALKALINE PHOSPHATASE 47 U/L (45-117); ALT (GPT) 30 U/L (12-78); ANION GAP 9 MEQ/L (5-15); BICARBONATE 31.4 MEQ/L (21.0-32.0); BLOOD UREA NITROGEN 44 MG/DL (7-18); CHLORIDE 102 MEQ/L (98-107); GLOMERULAR FILTRATION RATE 153 ML/MIN (>89); MAGNESIUM 1.9 MG/DL (1.5-2.5); SODIUM (NA) 142 MEQ/L (136-145); TOTAL BILIRUBIN ADULT 0.8 MG/DL (0.2-1.0)
[2016-05-11] MEDS: fentaNYL DRIP 250 ML IV SCH ×2 (04:10→15:21)
[2016-05-11 04:26] LABS: BANDS 1 % (0-6); METAMYELOCYTES 1 % (0-1); MYELOCYTES 1 % (0-0); NEUTROPHIL # MANUAL DIFF 14.3 TH/MM3 (1.8-7.7); POLYS (SEG NEUTROPHILS) 90 % (16-70); STOMATOCYTES 2+ (NORMAL); TOXIC VACUOLATION PRESENT (NONE SEEN); WBC DIFF SAMPLE 100
[2016-05-11 04:27] LABS: OVALOCYTES 1+ (NORMAL); PLATELET ESTIMATE SMEAR NORMAL (NORMAL); PLATELET MORPHOLOGY NORMAL (NORMAL); SCAN/DIFF FINAL DIFF MANUAL
--- NOTE | 2016-05-11 04:46 | RADRPT ---
EXAM DATE/TIME: 05/11/2016 03:10 [facility] COMPARISON: CHEST SINGLE AP, May 10, 2016, 2:45. INDICATIONS : Shortness of breath, possible pulmonary disease. MEDICAL HISTORY : Hypertension. Congestive heart failure. SURGICAL HISTORY : Tracheostomy ENCOUNTER: Subsequent ACUITY: 2 weeks PAIN SCORE: Non-responsive. LOCATION: Bilateral chest FINDINGS: Single portable frontal view of the chest shows a right lower lobe infiltrate unchanged from the prio r study. A new left lower lobe infiltrate noted. Rds at the upper limits of normal in terms of size. A catheter overlies the right arm and courses up the right side of the neck. Presumably this relates to a PIC line. Tracheostomy tube noted. CONCLUSION: 1. New left lower lobe infiltrate with unchanged right lower lobe infiltrate. 2. Right-sided PICC line courses up the right neck. Jeremiah Walton Jr., MD on May 11, 2016 at 4:43 Board Certified Radiologist. This report was verified electronically.
[2016-05-11 04:48] LABS: AST (GOT) 26 U/L (15-37)
[2016-05-11 04:49] LABS: POTASSIUM 3.1 MEQ/L (3.5-5.1)
[2016-05-11] MEDS: ENOXAPARIN SODIUM 150 MG/ML SYRINGE SQ SCH ×2 (04:57→15:21)
[2016-05-11] MEDS: LEVOTHYROXINE SODIUM 100 MCG VIAL IV PUSH SCH (04:57)
[2016-05-11] MEDS: POTASSIUM CHLOR 20 MEQ PREMIX 100 ML IV PRN ×5 (04:58→15:20)
[2016-05-11 06:37] LABS: BLOOD GAS BASE EXCESS 3.8 mmol/L (-2-2); BLOOD GAS CARBOXYHEMOGLOBIN 1.1 % (0-4); BLOOD GAS HCO3 28 mmol/L (22-26); BLOOD GAS O2 HGB SATURATION 94 % (90-100); BLOOD GAS OXYGEN CONTENT 14.8 Vol % (12.0-20.0); BLOOD GAS PCO2 47 mmHg (38-42); BLOOD GAS PO2 99 mmHg (61-120); BLOOD GAS TOTAL HGB 11.1 G/DL (12.0-16.0); TEMP CORR TO 98.6
[2016-05-11 06:38] LABS: CRITICAL VALUE NO; DRAW SITE RT RADIAL; FIO2 65 %; OXYGEN DEVICE VENTILATOR; VENT SETTINGS PRVC/AC
[2016-05-11 06:39] LABS: NUMBER OF ARTERIAL PUNCTURES 1; STAT NO; ULNAR PULSE PRESENT
[2016-05-11] MEDS: RESP: BUDESONIDE 0.5 MG/2 ML NEB NEB SCH ×2 (08:22→21:15)
[2016-05-11] MEDS: predniSONE 5 MG/5 ML CUP PO SCH (08:57)
[2016-05-11] MEDS: METOCLOPRAMIDE HCL 10 MG/2 ML VIAL IV PUSH SCH ×2 (08:58→21:56)
[2016-05-11] MEDS: LINEZOLID 600 MG TAB PO SCH ×2 (08:58→21:55)
[2016-05-11] MEDS: POTASSIUM CHLORIDE 20 MEQ PWD PACKET NG SCH (08:58)
[2016-05-11] MEDS: FENOFIBRATE 48 MG TAB PO SCH (08:58)
[2016-05-11] MEDS: ALLOPURINOL 300 MG TAB PO SCH (08:59)
[2016-05-11] MEDS: ATORVASTATIN 10 MG TAB PO SCH (08:59)
[2016-05-11] MEDS: INSULIN DETEMIR 100 UNITS/ML VIAL SQ SCH ×2 (08:59→21:56)
[2016-05-11] MEDS: METOLAZONE 5 MG TAB NG SCH (08:59)
[2016-05-11] MEDS: MONTELUKAST SODIUM 10 MG TAB PO SCH (08:59)
[2016-05-11] MEDS: FAMOTIDINE 20 MG TAB PO SCH ×2 (08:59→21:55)
[2016-05-11] MEDS: CHLORHEXIDINE 0.12% (ORAL KIT) 15 ML CUP MT SCH ×2 (09:00→20:11)
[2016-05-11] MEDS: SODIUM CHLORIDE 0.9% FLUSH 5 ML FLUSH FLUSH SCH ×2 (09:00→21:57)
[2016-05-11] MEDS: NYSTATIN 100,000 U/GM PWD 15 GM BTL TOPICAL SCH ×2 (09:01→21:57)
--- NOTE | 2016-05-11 09:01 | HHI.CCPN ---
Subjective Remarks/Hospital Course 31 year old morbidly obese (BMI 68) male with chronic respiratory failure s/p tracheostomy 4 years ago, atrial fibrillation and pulmonary embolism on Xarelto , COPD, CHF and h/o HTN. He presented from [facility] with low oxygen saturation apparently his oxygen saturation was 82% on RA. He was placed back on 6L of oxygen via his trach mask and given a breathing treatment, initially improved however he started drifting back to low 80s again. Chest x-ray showed bibasilar infiltrates and pulmonary edema. Patient was admitted to the [facility] service and was started on IV steroids IV vancomycin and Zosyn and Levaquin for healthcare associated pneumonia. After starting ACV, patient was more awake but there was a significant amount of air leak around his tracheostomy. Patient has had a Shiley 6.0 Proximal XLT, but the soil engineer balloon had been cut off. 05/02 the patient became acutely hypoxemic with a large cuff leak, underwent emergency trach exchange at bedside by Dr. Macias. FiO2 65% PEEP 14 Objective Vital Signs Date Time Temp Pulse Resp B/P Pulse Ox O2 Delivery O2 Flow Rate FiO2 05/11/16 08:23 99 55 05/11/16 06:00 72 05/11/16 04:00 97.9 12 137/75 Intake and Output 05/10/16 05/10/16 05/11/16 08:00 16:00 00:00 Intake Total 959 ml 1130 ml 1098 ml Output Total 575 ml 810 ml 600 ml Balance 384 ml 320 ml 498 ml Result Diagram: 05/11/16 0320 05/11/16 0320 Other Results Laboratory Tests Test 05/11/16 06:25 Blood Gas Puncture Site RT RADIAL Blood Gas Patient Temperature 98.6 Blood Gas HCO3 28 mmol/L (22-26) Blood Gas Base Excess 3.8 mmol/L (-2-2) Blood Gas Oxygen Saturation 94 % (90-100) Arterial Blood pH 7.40 (7.380-7.420) Arterial Blood Partial 47 mmHg (38-42) Pressure CO2 Arterial Blood Partial 99 mmHg Pressure O2 (61-120) Arterial Blood Oxygen Content 14.8 Vol % (12.0-20.0) Arterial Blood 1.1 % (0-4) Carboxyhemoglobin Arterial Blood Methemoglobin 2.0 % (0-2) Blood Gas Hemoglobin 11.1 G/DL (12.0-16.0) Oxygen Delivery Device VENTILATOR Blood Gas Ventilator Setting PRVC/AC Blood Gas Inspired Oxygen 65 % Imaging Last 24 hours Impressions Chest X-Ray 05/11/16 0600 Signed Impressions: Service Date/Time: Wednesday, May 11, 2016 03:10 - CONCLUSION: 1. New left lower lobe infiltrate with unchanged right lower lobe infiltrate. 2. Right- sided PICC line courses up the right neck. Jeremiah Walton Jr., MD Last 24 hours Impressions Chest X-Ray 05/10/16599 Signed Impressions: Service Date/Time: Tuesday, May 10, 2016 02:45 - CONCLUSION: Worsening right lower lobe infiltrate. Jeremiah Walton Jr., MD Objective Remarks GENERAL: Lying in bed, on mech vent via trach in situ, sedated due to severe hypoxia, but opens eyes SKIN: Warm and dry. HEAD: Normocephalic. Atraumatic. EYES: PERRL. No scleral icterus. No injection or drainage. ENT: No nasal drainage. Oral and nasal mucosa moist NECK: Shiley 6.0 Proximal XLT, (new trach placed 05/02/16) CARDIOVASCULAR: Regular rate and rhythm without murmurs, gallops, or rubs. Distant heart sounds RESPIRATORY: On mechanical ventilation via tracheostomy. Air entry decreased bilaterally at bases. No wheezing, diminished throughout bilaterally. GASTROINTESTINAL: Abdomen soft, non-tender, obese, normal BS. Tube feeds infusing. NEURO: RASS -2 on mechanical ventilation, on fentanyl, Versed and propofol infusion, to maintain ventilator synchrony. Opens eyes and weakly follows commands Procedures Shiley 6.0 XLT tracheostomy exchange under visual direction by general surgery and with GlideScope, by anesthesiologist. Date of Insertion: Apr 24, 2016 Date of Insertion: Apr 26, 2016 Line: PICC Side: Right A/P Assessment and Plan ASSESSMENT Acute hypercapnic and hypoxemic respiratory failure Healthcare associated pneumonia MDR Pseudomonas Sepsis/persistent fever CHF exacerbation CO2 narcosis Tracheostomy soil engineer balloon damage -status post exchange with new Shiley 6.0 Proximal XLT 05/02/16) Chronic Respiratory Failure s/p Tracheostomy 4 years ago (Shiley 6.0 Proximal XLT) COPD/obesity hypoventilation syndrome Morbid Obesity BMI 67 History of pulmonary embolism 4 years ago Chronic atrial fibrillation Anxiety CHF (Echo 2013 EF 40-45%; ECHO 08/2015 showing a grossly normal systolic function) Hypertension Hypothyroidism PLAN NEURO: CO2 narcosis Anxiety -Maintain optimal sedation, with RASS -2, -wean off Propofol , Versed and Fentanyl. -Sedation vacation if tolerated without hypoxia. RESP: Acute hypercapnic and hypoxemic respiratory failure Healthcare associated pneumonia Tracheostomy soil engineer balloon damage (Shiley 6.0 Proximal XLT) s/p new trach placement 05/02 Chronic Respiratory Failure s/p Tracheostomy 4 years ago COPD/obesity hypoventilation syndrome History of pulmonary embolism 4 years ago Leukocytosis Pulmonary edema - Worsening RLL infiltrate - Bronchoscopy yesterday - pending cultures - Continue mechanical ventilation PRVC TV 650 iT 1.5, PEEP 16 FiO2 .40, Titrate to keep SaO2 >88% - consider BiLevel - Healthcare associated pneumonia (MDRO) is being treated with IV Vancomycin, Zerbaxa and Colistin nebs. - ID appreciated - Sputum culture revealed Pseudomonas MDR - DuoNeb every 4 hours scheduled - Pulmicort BID (home med) - Continue IV Solu-Medrol to 60 mg every 6 hour - start to yocasta - Therapeutic Lovenox 150 mg every 12 hours - Chest x-ray bibasilar infiltrates unchanged CV: CHF exacerbation Pulmonary edema Chronic atrial fibrillation - Bumex D/Renato due to worsening hyperchloremia and hypernatremia - Metolazone 5 mg po daily - A. fib rate controlled - Therapeutic Lovenox 150 mg twice a day GI: Super morbid obesity with BMI of 68 - Tube feeds Glucerna 30/hr - IV Protonix IV will change to Pepcid - SSI per ICU protocol - Increase Levemir : - Monitor potassium, phosphorus and magnesium closely - Scheduled doses of potassium stop due to hyperkalemia - Monitor renal function closely. - Urine culture revealed Dionne-, Fluconazole - Strict I&O ID: Healthcare associated pneumonia Sepsis MDRO Possible cellulitis right arm and fast Leukocytosis Recurrent fever - Continue ATB given by ID - Blood urine and blood culture NGTD. - Wound culture Pseudomonas MDR - Sputum culture-Pseudomonas MDR-colistin inhalation - ID consult appreciated - Bronchoscopy and re-culture today HEME: History of PE on chronic anticoagulation with Xarelto Leukocytosis -Monitor CBC, CMP, coags -Xarelto for PE 4 yrs ago. -Hold Xarelto. -Changed to Lovenox 150 mg twice a day ENDO: Hypothyroidism -Electrolyte replacement protocol -Continue levothyroxine 25 mcgs IV daily PROPH: -Bilateral lower extremity SCDs. Lovenox DVT prophylaxis. IV Protonix for GI prophylaxis LINES: - PICC line (day 10) RUE No DVT on US Critical Care: The total critical care time was 35 minutes. Time to perform other separately billable procedures was not included in the critical care time. Adin Dobson MD May 11, 2016 09:01 Adin Dobson MD May 11, 2016 09:01
[2016-05-11] MEDS: MICONAZOLE NITRATE 2% CREAM 15 GM TOP SCH ×2 (09:08→21:57)
--- NOTE | 2016-05-11 13:37 | HHI.FPPN ---
Subjective Remarks No acute events overnight. AFVSS, on 50% FIO2 now. Feels a little hot today, mood is improved. Mouth is somewhat dry. No chest pains, no shortness of breath (on vent). (Obed Glaser MD R1) Objective Vitals Vital Signs Date Time Temp Pulse Resp B/P Pulse Ox O2 Delivery O2 Flow Rate FiO2 05/11/16 11:37 97 50 05/11/16 10:00 98 05/11/16 08:23 99 55 05/11/16 08:00 76 05/11/16 08:00 70 05/11/16 08:00 97.1 76 22 127/67 93 05/11/16 06:00 72 05/11/16 04:00 70 05/11/16 04:00 74 05/11/16 04:00 97.9 74 12 137/75 96 05/11/16 03:50 95 65 05/11/16 02:00 65 05/11/16 00:10 97 70 05/11/16 00:00 62 05/11/16 00:00 98.1 62 11 138/73 96 05/11/16 00:00 70 05/10/16 22:00 74 05/10/16 20:01 96 75 05/10/16 20:00 75 05/10/16 20:00 76 05/10/16 20:00 97.9 71 22 136/79 97 05/10/16 18:00 84 05/10/16 16:00 66 05/10/16 16:00 96.8 66 22 133/69 93 05/10/16 16:00 90 05/10/16 15:57 94 90 05/10/16 14:06 92 100 05/10/16 14:00 93 I/O 05/10/16 05/10/16 05/10/16 05/11/16 05/11/16 05/11/16 07:00 15:00 23:00 07:00 15:00 23:00 Intake Total 959 ml 1130 ml 1098 ml 1181 ml Output Total 575 ml 810 ml 600 ml 625 ml Balance 384 ml 320 ml 498 ml 556 ml IV Total 646 ml 915 ml 810 ml 789 ml Tube Feeding 253 ml 95 ml 228 ml 192 ml Tube Irrigant 120 ml Other 60 ml 60 ml 200 ml Output Urine Total 575 ml 810 ml 600 ml 625 ml # Bowel Movements 1 1 0 2 (Obed Glaser MD R1) Result Diagram: 05/11/16 03205/11/16 032 Objective Remarks GENERAL: Morbidly obese. On mechanical ventilation, NG tube in place, awake and alert. SKIN: Warm and dry. No rashes or lesions. Cellulitis of right chest wall. HEAD: Normocephalic. Atraumatic. ENT: No nasal drainage. Tracheotomy site is clean and dry without drainage. NECK: No JVD. CARDIOVASCULAR: Distant heart sounds. Regular rate and rhythm without murmurs, gallops, or rubs. Peripheral pulses 2+. RESPIRATORY: On mechanical ventilation. PRVC, FiO2 65%, PEEP 16. Clear to auscultation bilaterally. No rales or rhonchi. GASTROINTESTINAL: Abdomen soft, obese, distant bowel sounds. MUSCULOSKELETAL: Lower extremity edema. Decubitus ulcer prophylaxis boots in place. NEURO: Awake, alert. Answers questions with head nods. Attempts to talk but difficult with trach. (Obed Glaser MD R1) Date of Insertion: Apr 24, 2016 (Obed Glaser MD R1) Date of Insertion: Apr 26, 2016 Line: PICC Side: Right (Obed Glaser MD R1) A/P Assessment and Plan Assessment and Plan Acute hypercapnic/hypoxemic respiratory failure Healthcare associated pneumonia with MDR Pseudomonas UTI with proteus mirabilis Sepsis CHF exacerbation CO2 narcosis Chronic Respiratory Failure s/p Tracheostomy 4 years ago (Shiley 6.0 Proximal XLT) COPD/obesity hypoventilation syndrome Morbid Obesity BMI 67 History of pulmonary embolism 4 years ago Chronic atrial fibrillation Anxiety CHF (Echo 2013 EF 40-45%; ECHO 08/2015 showing grossly normal systolic function) Hypertension Hypothyroidism PLAN NEURO: answering questions appropriately with yes or no answers CO2 narcosis Anxiety -Maintain optimal sedation for ventilator synchrony. -Continue Propofol ,Versed and Fentanyl. RESP: FiO2 50%, PEEP 16, on PRVC Acute hypercapnic/hypoxemic respiratory failure Healthcare associated pneumonia New trach placement 05/02 Chronic Respiratory Failure s/p Tracheostomy 4 years ago COPD/obesity hypoventilation syndrome History of pulmonary embolism 4 years ago Pulmonary edema - RLL infiltrate worsening. - Bronchoscopy today -Continue mechanical ventilation PRVC TV 650 iT 1.5, PEEP 16 FiO2 .65, Wean to keep SaO2 >88% -Healthcare associated pneumonia (MDRO) is being treated with IV Rocephin (05/07 - ). IV Diflucan for heather UTI. ID following -Sputum culture revealed Pseudomonas MDR, providencia stuartii -DuoNeb every 4 hours scheduled -Pulmicort BID (home med) -Continue IV Solu-Medrol to 60 mg every 6 hour, start tapering -Therapeutic Lovenox 150 mg every 12 hours -Chest x-ray bibasilar infiltrates unchanged CV: CHF exacerbation Pulmonary edema Chronic atrial fibrillation -Bumex discontinued due to hyperchloremia/hypernatremia, monitor electrolytes. -Metolazone 5 mg po daily -A. fib rate controlled -Therapeutic Lovenox 150 mg twice a day GI: Super morbid obesity with BMI of 68 -Tube feeds Glucerna 30/hr, tolerating well -Pepcid for GI prophylaxis -SSI per ICU protocol - Levemir increased to 20 units bid due to continued hyperglycemia : -Monitor potassium, phosphorus and magnesium -Potassium decreasing, likely insulin plus stopping potassium. Add back 40 meQ potassium per day. - Free water through Dobhoff tube for hypernatremia/hyperchloremia -Monitor renal function -Milan catheter -Urine culture revealed Heather-, Fluconazole -Strict I&O ID: Healthcare associated pneumonia Sepsis MDRO Possible cellulitis right arm and fast Leukocytosis Recurrent fever -IV rocephin (05/07 - ) for 14 days to cover Proteus and Providencia, colistin nebs discontinued, Zyvox (for cellulitis) until 05/13. - Diflucan until 05/13. -Blood urine and blood culture NGTD. Repeat blood and urine culture today -Wound culture Pseudomonas MDR -Sputum culture-Pseudomonas MDR-colistin inhalation -ID consulted, follow-up recommendations -Blood cx from . negative. Urine culture positive for proteus mirabilis. HEME: History of PE on chronic anticoagulation with Xarelto Leukocytosis -Monitor CBC, CMP, coags -Xarelto for PE 4 yrs ago. -Hold Xarelto. -Changed to Lovenox 150 mg twice a day ENDO: Hypothyroidism -Electrolyte replacement protocol -Continue levothyroxine 25 mcgs IV daily PROPH: -Bilateral lower extremity SCDs. Lovenox DVT prophylaxis. IV Protonix for GI prophylaxis LINES: - PICC line Discharge Planning Patient will need to be weaned from mechanical ventilation with stable clinical status. Hopeful for patient to be able to return to long-term rehab facility. ( Obed Glaser MD R1) Attending Attestation This 31 male is admitted with a chief complaint of Acute Respiratory Failure. Patient has been examined and the case reviewed with the resident physicians. agree with plan (Tanya Cochran MD) Problem List: (1) On mechanically assisted ventilation Status: Acute Plan: Critical care actively managing acute hypercapnic and hypoxemic respiratory failure and HCAP at this time Patient placed on mechanical ventilation on 04/24, FiO2 now 75% with PEEP 16 S/p urgent/emergent trach exchange 05/02 due to acute hypoxemia and large cuff leak Continue Solumedrol 60 mg IV q6h (2) HCAP (healthcare-associated pneumonia) Status: Acute Plan: Febrile up to 102 Leukocytosis 15.4 this AM Repeat ABG on 04/26 showed improvement with CO2 56 with pH 7.40 05/01 BCXs no growth (final) 05/03 BCx no growth (final) 05/04 BCx no growth (final CXR 04/29 showing stable bibasilar consolidative infiltrates 04/30 CXR shows bilateral airspace disease greater in the right lower lobe 05/05 CXR showing improved aeration bilaterally 04/27 Sputum culture growing resistant pseudomonas 05/04 repeat sputum culture munoz-sensitive Providencia stuartii Antibiotic History Zosyn 4.5gm IV q6h (04/24 - 04/29) Levaquin 750mg IV q24h (04/24-04/30) Zerbaxa 1.5 g IV q8h (04/29 - 05/07) Vancomycin IV (04/24 - 05/06) Ceftriaxone IV (05/07 - present) Linezolid 600 mg PO BID (05/06 - 05/13) Plan - Infectious Disease consulted, appreciate recs * Continue Ceftriaxone 2 g IV Q24H * Colistin nebs * Diflucan q24h - Duonebs q2h (3) Yeast UTI Status: Acute Plan: 05/01 Urine CX growing heather albicans 05/05 repeat UA with large LE, negative nitrite, 182 WBCs; culture grew Proteus Mirabilis Continue Diflucan 400 mg IV q24h (4) Cellulitis of chest wall Status: Acute Plan: Improved - Complete course of linezolid 600 mg PO BID (05/06-05/13) per ID recs (5) CHF (congestive heart failure) Status: Chronic Plan: Last ECHO 09/18/2015 showing a grossly normal systolic function with no definitive EF as it was difficult to assess, ECHO on 05/2014 with EF of 40-45% with mildly dilated left atrium 04/25 ECHO was limited due to poor image quality, EF could not be adequately estimated. Systolic function appears to be grossly normal. BNP on admission 419, repeat BNP 151 Critical care actively managing diuresis - Lasix drip discontinued - Bumex Discontinued - Completed 3 days of acetazolamide (6) Atrial fibrillation Status: Chronic Plan: Last EKG in sinus rhythm NRRR on exam Home dose of Xarelto 20 mg po daily has been held in anticipation of possible surgery. Currently on Lovenox 150mg SQ Q12H (7) Tracheostomy present Status: Chronic Plan: S/p urgent/emergent trach exchange 05/02 due to acute hypoxemia and large cuff leak Has been stable since procedure (8) HTN (hypertension) Status: Chronic Plan: BPs stable Hold home BP medications (9) Morbid obesity with BMI of 60.0-69.9, adult Status: Chronic Plan: Likely contributing to chronic respiratory issues (10) Hypothyroidism Status: Chronic Plan: Synthroid 25 mcg IV daily (11) Nutrition, metabolism, and development symptoms Status: Acute Plan: Fluids: none Electrolytes: Monitor and replete when necessary per protocol Nutrition: NG tube, tube feeds with Glucerna 30ml/hr DVT PPx: Therapeutic Lovenox 150mg subq q12h Glucose: Insulin Levemir 20 units SQ BID plus medium dose sliding scale to control blood sugar sdw Tc Manjarrez (Obed Glaser MD R1) Problem Qualifiers (1) CHF (congestive heart failure): Qualified Code: I50.9 - Acute on chronic congestive heart failure, unspecified congestive heart failure type (2) Atrial fibrillation: Qualified Code: I48.2 - Chronic atrial fibrillation (3) HTN (hypertension): Qualified Code: I10 - Essential hypertension (4) Hypothyroidism: Qualified Code: E03.9 - Hypothyroidism, unspecified type Obed Glaser MD R1 May 11, 2016 13:37 Tanya Cochran MD May 13, 2016 10:30
[2016-05-11] MEDS: FLUCONAZOLE 100 MG TAB PO SCH (17:23)
[2016-05-12] VITALS (19 sets, daily range): BP systolic 120–132; BP diastolic 60–68; PULSE 87–117; RESP 22–23; TEMP 97.5–98.6; O2SAT 91–99
[2016-05-12] MEDS: PROPOFOL 1000 MG/100 ML INJ 100 ML IV SCH ×4 (00:48→09:15)
[2016-05-12] MEDS: POTASSIUM CHLOR 40 MEQ PREMIX 100 ML IV PRN ×2 (00:48→03:52)
[2016-05-12] MEDS: FREE WATER G-TUBE SCH ×3 (00:49→17:00)
[2016-05-12] MEDS: RESP: ALBUTEROL 2.5 MG/IPRATROPIUM 0.5 MG NEB (SCH) NEB ×4 (03:45→19:40)
[2016-05-12] MEDS: ENOXAPARIN SODIUM 150 MG/ML SYRINGE SQ SCH ×2 (03:52→17:03)
[2016-05-12] MEDS: MEDIUM DOSE INSULIN NOVOLIN REGULAR SUPPLEMENTAL SCALE SQ SCH ×6 (03:52→20:00)
[2016-05-12 04:51] LABS: AUTOMATED NEUTROPHIL # 16.1 TH/MM3 (1.8-7.7); BASOPHIL % 0.1 % (0.0-2.0); EOSINOPHIL # 0.2 TH/MM3 (0-0.4); EOSINOPHIL % 0.8 % (0.0-4.0); HEMATOCRIT 36.5 % (39.0-51.0); LYMPH % 13.2 % (9.0-44.0); LYMPHOCYTE # 2.5 TH/MM3 (1.0-4.8); MEAN CORPUSCULAR HEMOGLOBIN 23.2 PG (27.0-34.0); MEAN CORPUSCULAR HGB CONC 31.3 % (32.0-36.0); MONO % 2.6 % (0.0-8.0); NEUT % 83.3 % (16.0-70.0); PLATELET COUNT 169 TH/MM3 (150-450); RED BLOOD COUNT 4.93 MIL/MM3 (4.50-5.90); RED CELL DISTRIBUTION WIDTH 19.3 % (11.6-17.2); WHITE BLOOD COUNT 19.3 TH/MM3 (4.0-11.0)
[2016-05-12 04:57] LABS: HEMO FLAGS AUTO DIFF
--- NOTE | 2016-05-12 05:00 | RADRPT ---
EXAM DATE/TIME: 05/12/2016 03:27 [facility] COMPARISON: CHEST SINGLE AP, May 11, 2016, 3:10. INDICATIONS : Shortness of breath, possible pulmonary disease. MEDICAL HISTORY : Hypertension. Congestive heart failure. SURGICAL HISTORY : Tracheostomy ENCOUNTER: Subsequent ACUITY: 2 weeks PAIN SCORE: Non-responsive. LOCATION: Bilateral chest FINDINGS: A single portable frontal view the chest shows bibasilar infiltrates. These are unchanged. No effusio ns. Heart normal in size. Tracheostomy tube and nasogastric tube noted. Right-sided PICC line courses up the right neck. CONCLUSION: 1. Unchanged bibasilar infiltrates. 2. Right-sided PICC line courses up the neck. Jeremiah Walton Jr., MD on May 12, 2016 at 4:58 Board Certified Radiologist. This report was verified electronically.
[2016-05-12 05:23] LABS: ALKALINE PHOSPHATASE 51 U/L (45-117); ALT (GPT) 36 U/L (12-78); ANION GAP 9 MEQ/L (5-15); BICARBONATE 31.4 MEQ/L (21.0-32.0); BLOOD UREA NITROGEN 30 MG/DL (7-18); CHLORIDE 99 MEQ/L (98-107); GLOMERULAR FILTRATION RATE 207 ML/MIN (>89); MAGNESIUM 1.5 MG/DL (1.5-2.5); SODIUM (NA) 139 MEQ/L (136-145); TOTAL BILIRUBIN ADULT 0.8 MG/DL (0.2-1.0)
[2016-05-12 05:24] LABS: AST (GOT) 28 U/L (15-37); POTASSIUM 3.2 MEQ/L (3.5-5.1)
[2016-05-12] MEDS: LEVOTHYROXINE SODIUM 100 MCG VIAL IV PUSH SCH (05:27)
[2016-05-12 05:53] LABS: BLOOD GAS BASE EXCESS 5.2 mmol/L (-2-2); BLOOD GAS CARBOXYHEMOGLOBIN 1.5 % (0-4); BLOOD GAS HCO3 30 mmol/L (22-26); BLOOD GAS METHEMOGLOBIN 1.6 % (0-2); BLOOD GAS O2 HGB SATURATION 83 % (90-100); BLOOD GAS OXYGEN CONTENT 13.1 Vol % (12.0-20.0); BLOOD GAS PCO2 50 mmHg (38-42); BLOOD GAS PO2 54 mmHg (61-120); BLOOD GAS TOTAL HGB 11.2 G/DL (12.0-16.0); TEMP CORR TO 98.6
[2016-05-12 05:54] LABS: OXYGEN DEVICE VENTILATOR
[2016-05-12 05:55] LABS: DRAW SITE RT RADIAL; FIO2 40 %; NUMBER OF ARTERIAL PUNCTURES 2; STAT NO; VENT SETTINGS PRVC/AC
[2016-05-12 06:05] LABS: CRITICAL VALUE YES
[2016-05-12] MEDS: RESP: BUDESONIDE 0.5 MG/2 ML NEB NEB SCH ×2 (07:45→20:00)
[2016-05-12] MEDS ORDERED: POTASSIUM PHOSPHATE INJ 30 MMOL in SODIUM CHLOR 0.9% 250 ML INJ 250 ML IV ONE (08:00)
[2016-05-12] MEDS ORDERED: cefTRIAXone INJ 2,000 MG in SODIUM CHLORIDE 0.9% INJ 100 ML IV SCH (08:00)
[2016-05-12 08:33] LABS: BANDS 3 % (0-6); CORRECTED NUCLEATED RBC 1 /100 WBC (0-0); METAMYELOCYTES 1 % (0-1); MYELOCYTES 4 % (0-0); POLYS (SEG NEUTROPHILS) 80 % (16-70); WBC DIFF SAMPLE 100
[2016-05-12 08:34] LABS: PLATELET ESTIMATE SMEAR NORMAL (NORMAL); PLATELET MORPHOLOGY NORMAL (NORMAL); SCAN/DIFF FINAL DIFF MANUAL
[2016-05-12] MEDS: predniSONE 5 MG/5 ML CUP PO SCH (08:59)
[2016-05-12] MEDS: CHLORHEXIDINE 0.12% (ORAL KIT) 15 ML CUP MT SCH ×2 (08:59→21:15)
[2016-05-12] MEDS ORDERED: SERTRALINE HCL 50 MG TAB PO SCH (09:00)
[2016-05-12] MEDS: POTASSIUM PHOSPHATE INJ 30 MMOL in SODIUM CHLOR 0.9% 250 ML INJ 250 ML IV PRN (09:00)
[2016-05-12] MEDS ORDERED: POTASSIUM CHLORIDE 20 MEQ PWD PACKET NG SCH ×2 (09:00→21:00)
[2016-05-12] MEDS: FENOFIBRATE 48 MG TAB PO SCH (09:01)
[2016-05-12] MEDS: METOCLOPRAMIDE HCL 10 MG/2 ML VIAL IV PUSH SCH ×2 (09:01→21:14)
[2016-05-12] MEDS: FAMOTIDINE 20 MG TAB PO SCH ×2 (09:01→21:14)
[2016-05-12] MEDS: ATORVASTATIN 10 MG TAB PO SCH (09:01)
[2016-05-12] MEDS: METOLAZONE 5 MG TAB NG SCH (09:01)
[2016-05-12] MEDS: ALLOPURINOL 300 MG TAB PO SCH (09:01)
[2016-05-12] MEDS: LINEZOLID 600 MG TAB PO SCH ×2 (09:01→21:14)
[2016-05-12] MEDS: MONTELUKAST SODIUM 10 MG TAB PO SCH (09:02)
[2016-05-12] MEDS: INSULIN DETEMIR 100 UNITS/ML VIAL SQ SCH ×2 (09:04→21:16)
[2016-05-12] MEDS: MICONAZOLE NITRATE 2% CREAM 15 GM TOP SCH (09:05)
[2016-05-12] MEDS: NYSTATIN 100,000 U/GM PWD 15 GM BTL TOPICAL SCH (09:05)
[2016-05-12] MEDS: MAGNESIUM SULFATE INJ 2 GM in SODIUM CHLORIDE 0.9% INJ 96 ML IV PRN (09:06)
[2016-05-12] MEDS: fentaNYL DRIP 250 ML IV SCH (09:15)
[2016-05-12] MEDS: SODIUM CHLORIDE 0.9% FLUSH 5 ML FLUSH FLUSH SCH ×2 (09:18→21:14)
--- NOTE | 2016-05-12 10:22 | HHI.CCPN ---
Subjective Remarks/Hospital Course 31 year old morbidly obese (BMI 68) male with chronic respiratory failure s/p tracheostomy 4 years ago, atrial fibrillation and pulmonary embolism on Xarelto , COPD, CHF and h/o HTN. He presented from [facility] with low oxygen saturation apparently his oxygen saturation was 82% on RA. He was placed back on 6L of oxygen via his trach mask and given a breathing treatment, initially improved however he started drifting back to low 80s again. Chest x-ray showed bibasilar infiltrates and pulmonary edema. Patient was admitted to the [facility] and was started on IV steroids IV vancomycin and Zosyn and Levaquin for healthcare associated pneumonia. After starting ACV, patient was more awake but there was a significant amount of air leak around his tracheostomy. Patient has had a Shiley 6.0 Proximal XLT, but the ferryboat pilot balloon had been cut off. 05/02 the patient became acutely hypoxemic with a large cuff leak, underwent emergency trach exchange at bedside by Dr. Macias. FiO2 65% PEEP 14 Objective Vital Signs Date Time Temp Pulse Resp B/P Pulse Ox O2 Delivery O2 Flow Rate FiO2 05/12/16 07:46 96 40 05/12/16 06:00 105 05/12/16 04:00 98.3 22 124/66 Intake and Output 05/11/16 05/11/16 05/12/16 08:00 16:00 00:00 Intake Total 1181 ml 1277 ml 750 ml Output Total 625 ml 850 ml 650.0 ml Balance 556 ml 427 ml 100.0 ml Result Diagram: 05/12/16 0345 05/12/16 0345 Other Results Laboratory Tests Test 05/12/16 05:40 Blood Gas Puncture Site RT RADIAL Blood Gas Patient Temperature 98.6 Blood Gas HCO3 30 mmol/L (22-26) Blood Gas Base Excess 5.2 mmol/L (-2-2) Blood Gas Oxygen Saturation 83 % (90-100) Arterial Blood pH 7.40 (7.380-7.420) Arterial Blood Partial 50 mmHg (38-42) Pressure CO2 Arterial Blood Partial 54 mmHg Pressure O2 (61-120) Arterial Blood Oxygen Content 13.1 Vol % (12.0-20.0) Arterial Blood 1.5 % (0-4) Carboxyhemoglobin Arterial Blood Methemoglobin 1.6 % (0-2) Blood Gas Hemoglobin 11.2 G/DL (12.0-16.0) Oxygen Delivery Device VENTILATOR Blood Gas Ventilator Setting PRVC/AC Blood Gas Inspired Oxygen 40 % Imaging Last 24 hours Impressions Chest X-Ray 05/11/16 0600 Signed Impressions: Service Date/Time: Wednesday, May 11, 2016 03:10 - CONCLUSION: 1. New left lower lobe infiltrate with unchanged right lower lobe infiltrate. 2. Right- sided PICC line courses up the right neck. Jeremiah Walton Jr., MD Last 24 hours Impressions Chest X-Ray 05/10/16599 Signed Impressions: Service Date/Time: Tuesday, May 10, 2016 02:45 - CONCLUSION: Worsening right lower lobe infiltrate. Jeremiah Walton Jr., MD Objective Remarks GENERAL: Lying in bed, on mech vent via trach in situ, sedated due to severe hypoxia, but opens eyes SKIN: Warm and dry. HEAD: Normocephalic. Atraumatic. EYES: PERRL. No scleral icterus. No injection or drainage. ENT: No nasal drainage. Oral and nasal mucosa moist NECK: Shiley 6.0 Proximal XLT, (new trach placed 05/02/16) CARDIOVASCULAR: Regular rate and rhythm without murmurs, gallops, or rubs. Distant heart sounds RESPIRATORY: On mechanical ventilation via tracheostomy. Air entry decreased bilaterally at bases. No wheezing, diminished throughout bilaterally. GASTROINTESTINAL: Abdomen soft, non-tender, obese, normal BS. Tube feeds infusing. NEURO: RASS -2 on mechanical ventilation, on fentanyl, Versed and propofol infusion, to maintain ventilator synchrony. Opens eyes and weakly follows commands Procedures Shiley 6.0 XLT tracheostomy exchange under visual direction by general surgery and with GlideScope, by anesthesiologist. Date of Insertion: Apr 24, 2016 Date of Insertion: Apr 26, 2016 Line: PICC Side: Right A/P Assessment and Plan ASSESSMENT Acute hypercapnic and hypoxemic respiratory failure Healthcare associated pneumonia MDR Pseudomonas Sepsis/persistent fever CHF exacerbation CO2 narcosis Tracheostomy ferryboat pilot balloon damage -status post exchange with new Shiley 6.0 Proximal XLT 05/02/16) Chronic Respiratory Failure s/p Tracheostomy 4 years ago (Shiley 6.0 Proximal XLT) COPD/obesity hypoventilation syndrome Morbid Obesity BMI 67 History of pulmonary embolism 4 years ago Chronic atrial fibrillation Anxiety CHF (Echo 2013 EF 40-45%; ECHO 08/2015 showing a grossly normal systolic function) Hypertension Hypothyroidism PLAN NEURO: CO2 narcosis - resolved Anxiety -wean off sedation -wean off Propofol , Versed and Fentanyl. -Sedation vacation if tolerated without hypoxia. RESP: Acute hypercapnic and hypoxemic respiratory failure Healthcare associated pneumonia Tracheostomy ferryboat pilot balloon damage (Shiley 6.0 Proximal XLT) s/p new trach placement 05/02 Chronic Respiratory Failure s/p Tracheostomy 4 years ago COPD/obesity hypoventilation syndrome History of pulmonary embolism 4 years ago Leukocytosis Pulmonary edema - Worsening RLL infiltrate - Bronchoscopy yesterday - pending cultures - Continue mechanical ventilation PRVC TV 650 iT 1.5, PEEP 16 FiO2 .40, Titrate to keep SaO2 >88% - consider APRV - Healthcare associated pneumonia (MDRO) - continue IV Vancomycin, Zerbaxa and Colistin nebs. - ID consult appreciated - Sputum culture revealed Pseudomonas MDR - DuoNeb every 4 hours scheduled - Pulmicort BID (home med) - Continue IV Solu-Medrol to 60 mg every 6 hour - start to yocasta - Therapeutic Lovenox 150 mg every 12 hours - Chest x-ray bibasilar infiltrates unchanged CV: CHF exacerbation Pulmonary edema Chronic atrial fibrillation - Bumex D/Renato due to worsening hyperchloremia and hypernatremia - Metolazone 5 mg po daily - A. fib rate controlled - Therapeutic Lovenox 150 mg twice a day GI: Super morbid obesity with BMI of 68 - Tube feeds Glucerna 30/hr - IV Protonix IV will change to Pepcid - SSI per ICU protocol - Levemir BID : Hypokalemia - Monitor potassium, phosphorus and magnesium closely - Scheduled doses of potassium stop due to hyperkalemia - will re-start - Monitor renal function closely. - Urine culture revealed Dionne-, Fluconazole - Strict I&O ID: Healthcare associated pneumonia Sepsis MDRO Possible cellulitis right arm and fast Leukocytosis Recurrent fever - Continue ATB per ID recommendations - Blood urine and blood culture NGTD. - Wound culture Pseudomonas MDR - Sputum culture-Pseudomonas MDR-colistin inhalation - ID consult appreciated - Bronchoscopy and re-culture 05/10 HEME: History of PE on chronic anticoagulation with Xarelto Leukocytosis -Monitor CBC, CMP, coags -Xarelto for PE 4 yrs ago. -Hold Xarelto. -Changed to Lovenox 150 mg twice a day ENDO: Hypothyroidism -Electrolyte replacement protocol -Continue levothyroxine 25 mcgs IV daily PROPH: -Bilateral lower extremity SCDs. Lovenox DVT prophylaxis. IV Protonix for GI prophylaxis LINES: - PICC line (day 10) RUE No DVT on US Critical Care: The total critical care time was 35 minutes. Time to perform other separately billable procedures was not included in the critical care time. Adin Dobson MD May 12, 2016 10:22
[2016-05-12] MEDS: cefTRIAXone INJ 2,000 MG in SODIUM CHLORIDE 0.9% INJ 100 ML IV SCH (11:17)
--- NOTE | 2016-05-12 12:09 | HHI.FPPN ---
Subjective Remarks No acute events. Doing well this morning compared to prior mornings. Sedatives being weaned and more alert, answering questions. Reports no pain. Having some diarrhea. FiO2 currently 40 with PEEP 16. (Joshua Morgan MD R2) Objective Vitals Vital Signs Date Time Temp Pulse Resp B/P Pulse Ox O2 Delivery O2 Flow Rate FiO2 05/12/16 07:46 96 40 05/12/16 06:00 45 05/12/16 06:00 105 05/12/16 04:00 40 05/12/16 04:00 98.3 103 22 124/66 99 05/12/16 04:00 103 05/12/16 03:41 99 40 05/12/16 02:00 92 05/12/16 00:20 95 40 05/12/16 00:00 87 05/12/16 00:00 40 05/12/16 00:00 97.5 87 23 128/67 95 05/11/16 22:24 95 40 05/11/16 22:00 40 05/11/16 22:00 94 05/11/16 20:00 96 05/11/16 20:00 98.6 96 22 146/77 96 05/11/16 20:00 45 05/11/16 19:38 95 45 05/11/16 18:00 86 05/11/16 16:00 82 05/11/16 16:00 97.5 82 22 119/77 98 05/11/16 16:00 45 05/11/16 15:46 95 45 05/11/16 14:00 77 I/O 05/11/16 05/11/16 05/11/16 05/12/16 05/12/16 05/12/16 06:59 14:59 22:59 06:59 14:59 22:59 Intake Total 1181 ml 1277 ml 750 ml 1043 ml Output Total 625 ml 850 ml 650 ml 525 ml Balance 556 ml 427 ml 100 ml 518 ml IV Total 789 ml 951 ml 431 ml 607 ml Tube Feeding 192 ml 226 ml 259 ml 206 ml Other 200 ml 100 ml 60 ml 230 ml Output Urine Total 625 ml 850 ml 650 ml 525 ml Tube Feeding Residual Discard 0 ml 0 ml # Bowel Movements 2 0 1 0 (Joshua Morgan MD R2) Result Diagram: 05/12/1634405/12/16344 Objective Remarks GENERAL: Morbidly obese. On mechanical ventilation, NG tube in place, awake and alert. SKIN: Warm and dry. No rashes or lesions. Cellulitis of right chest wall. HEAD: Normocephalic. Atraumatic. ENT: No nasal drainage. Tracheotomy site is clean and dry without drainage. NECK: No JVD. CARDIOVASCULAR: Distant heart sounds. Regular rate and rhythm without murmurs, gallops, or rubs. Peripheral pulses 2+. RESPIRATORY: On mechanical ventilation. PRVC, FiO2 40%, PEEP 16. Clear to auscultation bilaterally. No rales or rhonchi. GASTROINTESTINAL: Abdomen soft, obese, distant bowel sounds. MUSCULOSKELETAL: Lower extremity edema. Decubitus ulcer prophylaxis boots in place. NEURO: Awake, alert. Answers questions with head nods. Attempts to talk but difficult with trach. (Joshua Morgan MD R2) Date of Insertion: Apr 24, 2016 (Joshua Morgan MD R2) Date of Insertion: Apr 26, 2016 Line: PICC Side: Right (Joshua Morgan MD R2) A/P Assessment and Plan Assessment and Plan Acute hypercapnic/hypoxemic respiratory failure Healthcare associated pneumonia with MDR Pseudomonas UTI with proteus mirabilis Sepsis CHF exacerbation CO2 narcosis Chronic Respiratory Failure s/p Tracheostomy 4 years ago (Shiley 6.0 Proximal XLT) COPD/obesity hypoventilation syndrome Morbid Obesity BMI 67 History of pulmonary embolism 4 years ago Chronic atrial fibrillation Anxiety CHF (Echo 2013 EF 40-45%; ECHO 08/2015 showing grossly normal systolic function) Hypertension Hypothyroidism PLAN NEURO: answering questions appropriately, more alert Anxiety -Maintain optimal sedation for ventilator synchrony. -Wean Propofol ,Versed and Fentanyl. RESP: FiO2 50%, PEEP 16, on PRVC Acute hypercapnic/hypoxemic respiratory failure Healthcare associated pneumonia New trach placement 05/02 Chronic Respiratory Failure s/p Tracheostomy 4 years ago COPD/obesity hypoventilation syndrome History of pulmonary embolism 4 years ago Pulmonary edema - Bronchoscopy done, cultures pending -Continue mechanical ventilation PRVC TV 650 iT 1.5, PEEP 16 FiO2 .40, Wean to keep SaO2 >88% - PaO2 54, pC02 50, pH 7.4. -Healthcare associated pneumonia (MDRO) is being treated with IV Rocephin ( - ). IV Diflucan for dionne UTI. ID following -Sputum culture revealed Pseudomonas MDR, providencia stuartii -DuoNeb every 4 hours scheduled -Pulmicort BID (home med) -Continue IV Solu-Medrol to 60 mg every 6 hour, start tapering -Therapeutic Lovenox 150 mg every 12 hours -Chest x-ray bibasilar infiltrates unchanged CV: CHF exacerbation Pulmonary edema Chronic atrial fibrillation -Bumex discontinued due to hyperchloremia/hypernatremia, monitor electrolytes. -Metolazone 5 mg po daily -A. fib rate controlled -Therapeutic Lovenox 150 mg twice a day GI: Super morbid obesity with BMI of 68 -Tube feeds Glucerna 30/hr, tolerating well -Pepcid for GI prophylaxis -SSI per ICU protocol - Levemir increased to 20 units bid due to continued hyperglycemia : -Monitor potassium, phosphorus and magnesium. Now hypokalemic and hypophosphoric. Losing potassium through diarrhea. -Potassium decreasing, likely insulin plus stopping potassium. Add back 40 meQ potassium per day. - Free water through Dobhoff tube for hypernatremia/hyperchloremia -Monitor renal function -Milan catheter -Urine culture revealed Dionne-, Fluconazole -Strict I&O ID: Healthcare associated pneumonia Sepsis MDRO Possible cellulitis right arm and fast Leukocytosis -IV rocephin (05/07 - ) for 14 days to cover Proteus and Providencia, colistin nebs discontinued, Zyvox (for cellulitis) until 05/13. - Diflucan until 05/13. -Blood urine and blood culture NGTD. Repeat blood and urine culture today -Wound culture Pseudomonas MDR -Sputum culture-Pseudomonas MDR-colistin inhalation -ID consulted, follow-up recommendations -Blood cx from 05.03 negative. Urine culture positive for proteus mirabilis. HEME: History of PE on chronic anticoagulation with Xarelto Leukocytosis -Monitor CBC, CMP, coags -Xarelto for PE 4 yrs ago. -Hold Xarelto. -Changed to Lovenox 150 mg twice a day ENDO: Hypothyroidism -Electrolyte replacement protocol -Continue levothyroxine 25 mcgs IV daily PROPH: -Bilateral lower extremity SCDs. Lovenox DVT prophylaxis. IV Protonix for GI prophylaxis LINES: - PICC line Discharge Planning Patient will need to be weaned from mechanical ventilation with stable clinical status. Hopeful for patient to be able to return to long-term rehab facility. ( Joshua Morgan MD R2) Attending Attestation This 31 male is admitted with a chief complaint of Acute Respiratory Failure. Patient has been examined and the case reviewed with the resident physicians. agree with plan (Tanya Cochran MD) Joshua Morgan MD R2 May 12, 2016 12:08 Tanya Cochran MD May 13, 2016 10:31
[2016-05-12] MEDS: FLUCONAZOLE 100 MG TAB PO SCH (17:03)
[2016-05-12 22:31] LABS: POTASSIUM 3.4 MEQ/L (3.5-5.1)
[2016-05-13] VITALS (20 sets, daily range): BP systolic 109–142; BP diastolic 66–86; PULSE 10–134; RESP 22–32; TEMP 97.8–99.8; O2SAT 91–100
[2016-05-13] MEDS: FREE WATER G-TUBE SCH (01:00)
[2016-05-13] MEDS: POTASSIUM CHLOR 40 MEQ PREMIX 100 ML IV PRN (01:24)
[2016-05-13] MEDS: fentaNYL DRIP 250 ML IV SCH ×2 (02:09→17:39)
[2016-05-13] MEDS: RESP: ALBUTEROL 2.5 MG/IPRATROPIUM 0.5 MG NEB (SCH) NEB ×4 (03:14→19:56)
[2016-05-13] MEDS: MEDIUM DOSE INSULIN NOVOLIN REGULAR SUPPLEMENTAL SCALE SQ SCH ×6 (04:00→20:00)
[2016-05-13] MEDS: ENOXAPARIN SODIUM 150 MG/ML SYRINGE SQ SCH ×2 (04:30→17:38)
[2016-05-13 04:40] LABS: AUTOMATED NEUTROPHIL # 14.6 TH/MM3 (1.8-7.7); BASOPHIL # 0.1 TH/MM3 (0-0.2); BASOPHIL % 0.6 % (0.0-2.0); EOSINOPHIL # 0.1 TH/MM3 (0-0.4); EOSINOPHIL % 0.7 % (0.0-4.0); HEMATOCRIT 34.1 % (39.0-51.0); LYMPH % 15.6 % (9.0-44.0); LYMPHOCYTE # 2.8 TH/MM3 (1.0-4.8); MEAN CORPUSCULAR HEMOGLOBIN 22.8 PG (27.0-34.0); MEAN CORPUSCULAR HGB CONC 30.9 % (32.0-36.0); MONO % 2.8 % (0.0-8.0); NEUT % 80.3 % (16.0-70.0); PLATELET COUNT 151 TH/MM3 (150-450); RED CELL DISTRIBUTION WIDTH 19.4 % (11.6-17.2); WHITE BLOOD COUNT 18.2 TH/MM3 (4.0-11.0)
--- NOTE | 2016-05-13 04:42 | RADRPT ---
EXAM DATE/TIME: 05/13/2016 03:26 [place] COMPARISON: CHEST SINGLE AP, May 12, 2016, 3:27. INDICATIONS : Shortness of breath, possible pulmonary disease. MEDICAL HISTORY : Hypertension. Congestive heart failure. SURGICAL HISTORY : Tracheostomy ENCOUNTER: Subsequent ACUITY: 2 weeks PAIN SCORE: Non-responsive. LOCATION: Bilateral chest FINDINGS: A single view of the chest demonstrates tracheostomy in satisfactory position. NG enters stomach. Rig ht PICC line extending cephalad into the right internal jugular vein. Bilateral mostly basilar airspa ce disease similar to prior study. No pneumothorax. CONCLUSION: 1. Stable exam compared with May 12 with bilateral mostly basilar airspace disease. Horacio Gupta MD on May 13, 2016 at 4:38 Board Certified Radiologist. This report was verified electronically.
[2016-05-13 04:44] LABS: HEMO FLAGS AUTO DIFF
[2016-05-13 05:20] LABS: ALKALINE PHOSPHATASE 53 U/L (45-117); ALT (GPT) 33 U/L (12-78); ANION GAP 9 MEQ/L (5-15); AST (GOT) 30 U/L (15-37); BICARBONATE 34.1 MEQ/L (21.0-32.0); BLOOD UREA NITROGEN 21 MG/DL (7-18); CHLORIDE 97 MEQ/L (98-107); GLOMERULAR FILTRATION RATE 242 ML/MIN (>89); MAGNESIUM 1.5 MG/DL (1.5-2.5); SODIUM (NA) 140 MEQ/L (136-145); TOTAL BILIRUBIN ADULT 0.8 MG/DL (0.2-1.0)
[2016-05-13] MEDS: NYSTATIN 100,000 U/GM PWD 15 GM BTL TOPICAL SCH ×3 (06:04→21:24)
[2016-05-13] MEDS: MICONAZOLE NITRATE 2% CREAM 15 GM TOP SCH ×3 (06:04→21:24)
[2016-05-13] MEDS: LEVOTHYROXINE SODIUM 100 MCG VIAL IV PUSH SCH (06:06)
[2016-05-13 06:56] LABS: BLOOD GAS BASE EXCESS 7.5 mmol/L (-2-2); BLOOD GAS CARBOXYHEMOGLOBIN 1.4 % (0-4); BLOOD GAS HCO3 32 mmol/L (22-26); BLOOD GAS METHEMOGLOBIN 1.4 % (0-2); BLOOD GAS O2 HGB SATURATION 94 % (90-100); BLOOD GAS OXYGEN CONTENT 14.4 Vol % (12.0-20.0); BLOOD GAS PCO2 46 mmHg (38-42); BLOOD GAS PO2 91 mmHg (61-120); BLOOD GAS TOTAL HGB 10.8 G/DL (12.0-16.0)
[2016-05-13 06:57] LABS: CRITICAL VALUE NO; OXYGEN DEVICE VENTILATOR
[2016-05-13 06:58] LABS: DRAW SITE RT RADIAL; NUMBER OF ARTERIAL PUNCTURES 1; STAT NO; TEMP CORR TO 45; ULNAR PULSE PRESENT; VENT SETTINGS PRVC
[2016-05-13 07:35] LABS: BANDS 2 % (0-6); EOSINOPHILS 1 % (0-4); METAMYELOCYTES 6 % (0-1); MYELOCYTES 2 % (0-0); NEUTROPHIL # MANUAL DIFF 16.4 TH/MM3 (1.8-7.7); POLYS (SEG NEUTROPHILS) 80 % (16-70); WBC DIFF SAMPLE 100
[2016-05-13 07:36] LABS: PLATELET ESTIMATE SMEAR NORMAL (NORMAL); PLATELET MORPHOLOGY NORMAL (NORMAL); SCAN/DIFF FINAL DIFF MANUAL; STOMATOCYTES 1+ (NORMAL)
[2016-05-13] MEDS: cefTRIAXone INJ 2,000 MG in SODIUM CHLORIDE 0.9% INJ 100 ML IV SCH (08:00)
--- NOTE | 2016-05-13 08:43 | HHI.CCPN ---
Subjective Remarks/Hospital Course 31 year old morbidly obese (BMI 68) male with chronic respiratory failure s/p tracheostomy 4 years ago, atrial fibrillation and pulmonary embolism on Xarelto , COPD, CHF and h/o HTN. He presented from [facility] [place] with low oxygen saturation apparently his oxygen saturation was 82% on RA. He was placed back on 6L of oxygen via his trach mask and given a breathing treatment, initially improved however he started drifting back to low 80s again. Chest x-ray showed bibasilar infiltrates and pulmonary edema. Patient was admitted to the [facility] and was started on IV steroids IV vancomycin and Zosyn and Levaquin for healthcare associated pneumonia. After starting ACV, patient was more awake but there was a significant amount of air leak around his tracheostomy. Patient has had a Shiley 6.0 Proximal XLT, but the photogrammetry airplane pilot balloon had been cut off. 05/02 the patient became acutely hypoxemic with a large cuff leak, underwent emergency trach exchange at bedside by Dr. Macias. FiO2 65% PEEP 14 05/13 Patient is on ventilator via trach, on Fentanyl infusion however he is awake and alert. On PRVC with FIO2 40%. Afebrile. Objective Vital Signs Date Time Temp Pulse Resp B/P Pulse Ox O2 Delivery O2 Flow Rate FiO2 05/13/16 08:04 94 50 05/13/16 06:00 10 05/13/16 04:00 98.3 23 123/66 Intake and Output 05/12/16 05/12/16 05/13/16 08:00 16:00 00:00 Intake Total 1043 ml 992 ml 621 ml Output Total 525 ml 600 ml 1000 ml Balance 518 ml 392 ml -379 ml Result Diagram: 05/13/16 0425 05/13/16 0425 Other Results Laboratory Tests Test 05/12/16 05/13/16 05/13/16 21:30 04:25 06:47 Potassium Level 3.4 MEQ/L 3.0 MEQ/L Phosphorus Level 2.2 MG/DL 1.7 MG/DL White Blood Count 18.2 TH/MM3 Red Blood Count 4.60 MIL/MM3 Hemoglobin 10.5 GM/DL Hematocrit 34.1 % Mean Corpuscular Volume 74.0 FL Mean Corpuscular Hemoglobin 22.8 PG Mean Corpuscular Hemoglobin 30.9 % Concent Red Cell Distribution Width 19.4 % Platelet Count 151 TH/MM3 Mean Platelet Volume 9.9 FL Neutrophils (%) (Auto) 80.3 % Lymphocytes (%) (Auto) 15.6 % Monocytes (%) (Auto) 2.8 % Eosinophils (%) (Auto) 0.7 % Basophils (%) (Auto) 0.6 % Neutrophils # (Auto) 14.6 TH/MM3 Lymphocytes # (Auto) 2.8 TH/MM3 Monocytes # (Auto) 0.5 TH/MM3 Eosinophils # (Auto) 0.1 TH/MM3 Basophils # (Auto) 0.1 TH/MM3 CBC Comment AUTO DIFF Differential Total Cells 100 Counted Neutrophils % (Manual) 80 % Band Neutrophils % 2 % Lymphocytes % 8 % Monocytes % 1 % Eosinophils % 1 % Neutrophils # (Manual) 16.4 TH/MM3 Metamyelocytes 6 % Myelocytes 2 % Differential Comment FINAL DIFF MANUAL Platelet Estimate NORMAL Platelet Morphology Comment NORMAL Stomatocytes 1+ Sodium Level 140 MEQ/L Chloride Level 97 MEQ/L Carbon Dioxide Level 34.1 MEQ/L Anion Gap 9 MEQ/L Blood Urea Nitrogen 21 MG/DL Creatinine 0.41 MG/DL Estimat Glomerular Filtration 242 ML/MIN Rate Random Glucose 133 MG/DL Calcium Level 9.0 MG/DL Magnesium Level 1.5 MG/DL Total Bilirubin 0.8 MG/DL Aspartate Amino Transf 30 U/L (AST/SGOT) Alanine Aminotransferase 33 U/L (ALT/SGPT) Alkaline Phosphatase 53 U/L Total Protein 5.3 GM/DL Albumin 2.6 GM/DL Blood Gas Puncture Site RT RADIAL Blood Gas Patient Temperature 45 Blood Gas HCO3 32 mmol/L Blood Gas Base Excess 7.5 mmol/L Blood Gas Oxygen Saturation 94 % Arterial Blood pH 7.45 Arterial Blood Partial 46 mmHg Pressure CO2 Arterial Blood Partial 91 mmHg Pressure O2 Arterial Blood Oxygen Content 14.4 Vol % Arterial Blood 1.4 % Carboxyhemoglobin Arterial Blood Methemoglobin 1.4 % Blood Gas Hemoglobin 10.8 G/DL Oxygen Delivery Device VENTILATOR Blood Gas Ventilator Setting [facility] Imaging Last Impressions Chest X-Ray 05/13/16 0600 Signed Impressions: Service Date/Time: Friday, May 13, 2016 03:26 - CONCLUSION: 1. Stable exam compared with May 12 with bilateral mostly basilar airspace disease. Horacio Gupta MD Upper Extremity Ultrasound 05/02/16 0000 Signed Impressions: Service Date/Time: April 20:51 - CONCLUSION: No DVT. Garcia Lujan MD Abdomen X-Ray 04/29/16 0000 Signed Impressions: Service Date/Time: Friday, April 29, 2016 07:12 - CONCLUSION: Suspect Dobbhoff tube in the distal stomach. Garcia Lujan MD Objective Remarks GENERAL: Lying in bed, on mech vent via trach in situ, on fentanyl infusion but awake and alert. SKIN: Warm and dry. HEAD: Normocephalic. Atraumatic. EYES: PERRL. No scleral icterus. No injection or drainage. ENT: No nasal drainage. Oral and nasal mucosa moist NECK: Shiley 6.0 Proximal XLT, (new trach placed 05/02/16) CARDIOVASCULAR:Tachycardic without murmurs, gallops, or rubs. Distant heart sounds RESPIRATORY: On mechanical ventilation via tracheostomy. Air entry decreased bilaterally at bases. No wheezing, diminished throughout bilaterally. GASTROINTESTINAL: Abdomen soft, non-tender, obese, normal BS. Tube feeds infusing. NEURO: RASS -2 on mechanical ventilation, on fentanyl infusion, to maintain ventilator synchrony. Opens eyes and follows commands Procedures Shiley 6.0 XLT tracheostomy exchange under visual direction by general surgery and with GlideScope, by anesthesiologist. Date of Insertion: Apr 24, 2016 Date of Insertion: Apr 26, 2016 Line: PICC Side: Right A/P Assessment and Plan ASSESSMENT Acute hypercapnic and hypoxemic respiratory failure Healthcare associated pneumonia MDR Pseudomonas Sepsis/persistent fever CHF exacerbation CO2 narcosis Tracheostomy photogrammetry airplane pilot balloon damage -status post exchange with new Shiley 6.0 Proximal XLT 05/02/16) Chronic Respiratory Failure s/p Tracheostomy 4 years ago (Shiley 6.0 Proximal XLT) COPD/obesity hypoventilation syndrome Morbid Obesity BMI 67 History of pulmonary embolism 4 years ago Chronic atrial fibrillation Anxiety CHF (Echo 2013 EF 40-45%; ECHO 08/2015 showing a grossly normal systolic function) Hypertension Hypothyroidism PLAN NEURO: CO2 narcosis - resolved Anxiety - On Fentanyl infusion for sedation, daily sedation vacation RESP: Acute hypercapnic and hypoxemic respiratory failure Healthcare associated pneumonia Tracheostomy photogrammetry airplane pilot balloon damage (Shiley 6.0 Proximal XLT) s/p new trach placement 05/02 Chronic Respiratory Failure s/p Tracheostomy 4 years ago COPD/obesity hypoventilation syndrome History of pulmonary embolism 4 years ago Leukocytosis Pulmonary edema -s/p Bronchoscopy 05/11 -follow up on BAL results - Continue mechanical ventilation PRVC TV 650 iT 1.5, PEEP 14 FiO2 .40, Titrate to keep SaO2 >88% - DuoNeb every 4 hours scheduled - Pulmicort BID (home med) - Continue IV Solu-Medrol to 60 mg every 6 hour - start to yocasta - Therapeutic Lovenox 150 mg every 12 hours CV: CHF exacerbation Pulmonary edema Chronic atrial fibrillation -Monitor HR and BP keep MAP>65mmHg - Metolazone 5 mg po daily - Place on Cardizem 60mg QID - Therapeutic Lovenox 150 mg twice a day GI: Super morbid obesity with BMI of 68 - Tube feeds Glucerna 30/hr - On Pepcid 20mg BID : Hypokalemia - Monitor renal function , I/O. electrolytes replacement per protocol. -Will need K.Phos replacement today ID: Healthcare associated pneumonia Sepsis MDRO Possible cellulitis right arm and fast Leukocytosis Recurrent fever - Continue abx per ID ( Rocephin, Zyvox, Diflucan) - Blood urine and blood culture NGTD. - Wound culture Pseudomonas MDR 04/27 - Sputum culture-Pseudomonas MDR- 04/27 - ID consult appreciated - Bronchoscopy and re-culture 05/10 follow up on BAL results HEME: History of PE on chronic anticoagulation with Xarelto Leukocytosis -Monitor CBC, CMP, coags -Xarelto for PE 4 yrs ago. -Xarelto.held -On Lovenox 150 mg twice a day ENDO: Hypothyroidism -On SSI ( Medium scale) Levemir 20u BID -Continue levothyroxine 25 mcgs IV daily PROPH: -Bilateral lower extremity SCDs. Lovenox DVT prophylaxis. IV Protonix for GI prophylaxis LINES: - PICC line RUE- No DVT on US Critical Care: The total critical care time was 35 minutes. Time to perform other separately billable procedures was not included in the critical care time. Flory Martino MD May 13, 2016 08:43
--- NOTE | 2016-05-13 09:18 | HHI.FPPN ---
Subjective Remarks Mr Fortune desats at times but overall continues to improve slowly. He seems a little anxious this am and is off most of his sedation. He communicates by nods and facial expressions mostly this am. Objective Vitals Vital Signs Date Time Temp Pulse Resp B/P Pulse Ox O2 Delivery O2 Flow Rate FiO2 05/13/16 08:04 94 50 05/13/16 06:00 10 05/13/16 04:25 99 45 05/13/16 04:00 102 05/13/16 04:00 98.3 102 23 123/66 96 05/13/16 04:00 40 05/13/16 02:00 100 05/13/16 01:34 100 45 05/13/16 00:00 40 05/13/16 00:00 97.8 97 22 129/74 95 05/13/16 00:00 97 05/12/16 22:28 97 50 05/12/16 22:00 97 05/12/16 20:00 99 05/12/16 20:00 40 05/12/16 20:00 98.6 99 22 132/68 97 05/12/16 19:41 95 40 05/12/16 18:00 96 05/12/16 16:37 95 50 05/12/16 16:00 50 05/12/16 16:00 99 05/12/16 16:00 98.5 99 22 120/62 95 05/12/16 14:00 97 05/12/16 13:06 91 50 05/12/16 12:00 40 05/12/16 12:00 98.0 109 22 120/60 92 05/12/16 12:00 109 05/12/16 10:00 117 I/O 05/12/16 05/12/16 05/12/16 05/13/16 05/13/16 05/13/16 07:00 15:00 23:00 07:00 15:00 23:00 Intake Total 1043 ml 992 ml 621 ml 530 ml Output Total 525 ml 600 ml 1000 ml 450 ml Balance 518 ml 392 ml -379 ml 80 ml IV Total 607 ml 668 ml 302 ml 267 ml Tube Feeding 206 ml 224 ml 259 ml 203 ml Other 230 ml 100 ml 60 ml 60 ml Output Urine Total 525 ml 600 ml 1000 ml 450 ml Tube Feeding Residual Discard 0 ml # Bowel Movements 0 1 0 1 Result Diagram: 05/13/1642405/13/16 0425 Objective Remarks GENERAL: Morbidly obese. On mechanical ventilation, NG tube in place, awake and alert. SKIN: Warm and dry. No rashes or lesions. Cellulitis of right chest wall. HEAD: Normocephalic. Atraumatic. ENT: No nasal drainage. Tracheotomy site is clean and dry without drainage. NECK: No JVD. CARDIOVASCULAR: Distant heart sounds. Regular rate and rhythm without murmurs, gallops, or rubs. Peripheral pulses 2+. RESPIRATORY: On mechanical ventilation. PRVC, FiO2 50%, PEEP 16. Clear to auscultation bilaterally. No rales or rhonchi. can only listen anteriorly as he cannot sit up GASTROINTESTINAL: Abdomen soft, obese, distant bowel sounds. MUSCULOSKELETAL: Lower extremity edema. Decubitus ulcer prophylaxis boots in place. NEURO: Awake, alert. Answers questions with head nods. Attempts to talk but difficult with trach. Date of Insertion: Apr 24, 2016 Date of Insertion: Apr 26, 2016 Line: PICC Side: Right A/P Assessment and Plan Assessment and Plan Acute hypercapnic/hypoxemic respiratory failure Healthcare associated pneumonia with MDR Pseudomonas UTI with proteus mirabilis Sepsis CHF exacerbation CO2 narcosis Chronic Respiratory Failure s/p Tracheostomy 4 years ago (Shiley 6.0 Proximal XLT) COPD/obesity hypoventilation syndrome Morbid Obesity BMI 67 History of pulmonary embolism 4 years ago Chronic atrial fibrillation Anxiety CHF (Echo 2013 EF 40-45%; ECHO 08/2015 showing grossly normal systolic function) Hypertension Hypothyroidism PLAN NEURO: answering questions appropriately, more alert Anxiety -Maintain optimal sedation for ventilator synchrony. -Wean Propofol ,Versed and Fentanyl. RESP: FiO2 50%, PEEP 16, on PRVC Acute hypercapnic/hypoxemic respiratory failure Healthcare associated pneumonia New trach placement 05/02 Chronic Respiratory Failure s/p Tracheostomy 4 years ago COPD/obesity hypoventilation syndrome History of pulmonary embolism 4 years ago Pulmonary edema - Bronchoscopy done, cultures pending -Continue mechanical ventilation PRVC TV 650 iT 1.5, PEEP 16 FiO2 .40, Wean to keep SaO2 >88% - PaO2 54, pC02 50, pH 7.4. -Healthcare associated pneumonia (MDRO) is being treated with IV Rocephin ( - ). IV Diflucan for dionne UTI. ID following -Sputum culture revealed Pseudomonas MDR, providencia stuartii -DuoNeb every 4 hours scheduled -Pulmicort BID (home med) -Continue IV Solu-Medrol to 60 mg every 6 hour, start tapering -Therapeutic Lovenox 150 mg every 12 hours -Chest x-ray bibasilar infiltrates unchanged CV: CHF exacerbation Pulmonary edema Chronic atrial fibrillation -Bumex discontinued due to hyperchloremia/hypernatremia, monitor electrolytes. -Metolazone 5 mg po daily -A. fib rate controlled -Therapeutic Lovenox 150 mg twice a day GI: Super morbid obesity with BMI of 68 -Tube feeds Glucerna 30/hr, tolerating well -Pepcid for GI prophylaxis -SSI per ICU protocol - Levemir increased to 20 units bid due to continued hyperglycemia : -Monitor potassium, phosphorus and magnesium. Now hypokalemic and hypophosphoric. Losing potassium through diarrhea. -Potassium decreasing, likely insulin plus stopping potassium. Add back 40 meQ potassium per day. - Free water through Dobhoff tube for hypernatremia/hyperchloremia -Monitor renal function -Milan catheter -Urine culture revealed Dionne-, Fluconazole -Strict I&O ID: Healthcare associated pneumonia Sepsis MDRO Possible cellulitis right arm and fast Leukocytosis -IV rocephin (05/07 - ) for 14 days to cover Proteus and Providencia, colistin nebs discontinued, Zyvox (for cellulitis) until 05/13. - Diflucan until 05/13. -Blood urine and blood culture NGTD. Repeat blood and urine culture today -Wound culture Pseudomonas MDR -Sputum culture-Pseudomonas MDR-colistin inhalation -ID consulted, follow-up recommendations -Blood cx from 05.03 negative. Urine culture positive for proteus mirabilis. HEME: History of PE on chronic anticoagulation with Xarelto Leukocytosis -Monitor CBC, CMP, coags -Xarelto for PE 4 yrs ago. -Hold Xarelto. -Changed to Lovenox 150 mg twice a day ENDO: Hypothyroidism -Electrolyte replacement protocol -Continue levothyroxine 25 mcgs IV daily PROPH: -Bilateral lower extremity SCDs. Lovenox DVT prophylaxis. IV Protonix for GI prophylaxis LINES: - PICC line Discharge Planning Patient will need to be weaned from mechanical ventilation with stable clinical status. Hopeful for patient to be able to return to long-term rehab facility. If he qualifies can consider snf vent facility depending on how he does. Problem List: (1) On mechanically assisted ventilation Status: Acute Plan: Critical care actively managing acute hypercapnic and hypoxemic respiratory failure and HCAP at this time. He has obesity hypoventilation and snf the only solution is to lose 100 lbs or so. He may be able to get gastric banding/bypass at some point though he is definitely too sick right now. Started discussion about this yesterday but will also check with case management to see his past Psychiatric history or whether his mother can influence him to take the steps necessary to save his life. Patient placed on mechanical ventilation on 04/24, FiO2 now 75% with PEEP 16 S/p urgent/emergent trach exchange 05/02 due to acute hypoxemia and large cuff leak Continue Solumedrol 60 mg IV q6h (2) HCAP (healthcare-associated pneumonia) Status: Acute Plan: Repeat ABG on 04/26 showed improvement with CO2 56 with pH 7.40 05/01 BCXs no growth (final) 05/03 BCx no growth (final) 05/04 BCx no growth (final CXR 04/29 showing stable bibasilar consolidative infiltrates 04/30 CXR shows bilateral airspace disease greater in the right lower lobe 05/05 CXR showing improved aeration bilaterally 04/27 Sputum culture growing resistant pseudomonas 05/04 repeat sputum culture munoz-sensitive Providencia stuartii 05/05 proteus mirabilis 05/10 no fungal or bacterial growth Antibiotic History Zosyn 4.5gm IV q6h (04/24 - 04/29) Levaquin 750mg IV q24h (04/24-04/30) Zerbaxa 1.5 g IV q8h (04/29 - 05/07) Vancomycin IV (04/24 - 05/06) Ceftriaxone IV (05/07 - present) Linezolid 600 mg PO BID (05/06 - 05/13) Plan - Infectious Disease consulted, appreciate recs * Continue Ceftriaxone 2 g IV Q24H * Colistin nebs * Diflucan q24h - Duonebs q2h (3) Yeast UTI Status: Acute Plan: 05/01 Urine CX growing dionne albicans 05/05 repeat UA with large LE, negative nitrite, 182 WBCs; culture grew Proteus Mirabilis Continue Diflucan 400 mg IV q24h (4) Cellulitis of chest wall Status: Acute Plan: Improved - Complete course of linezolid 600 mg PO BID (05/06-05/13) per ID recs (5) CHF (congestive heart failure) Status: Chronic Plan: Last ECHO 09/18/2015 showing a grossly normal systolic function with no definitive EF as it was difficult to assess, ECHO on 05/2014 with EF of 40-45% with mildly dilated left atrium 04/25 ECHO was limited due to poor image quality, EF could not be adequately estimated. Systolic function appears to be grossly normal. BNP on admission 419, repeat BNP 151. suspect cardiac problems from his hypoventilation. Critical care actively managing diuresis - Lasix drip discontinued - Bumex Discontinued - Completed 3 days of acetazolamide (6) Atrial fibrillation Status: Chronic Plan: Last EKG in sinus rhythm NRRR on exam Home dose of Xarelto 20 mg po daily has been held. Currently on Lovenox 150mg SQ Q12H (7) Tracheostomy present Status: Chronic Plan: S/p urgent/emergent trach exchange 05/02 due to acute hypoxemia and large cuff leak Has been stable since procedure (8) HTN (hypertension) Status: Chronic Plan: BPs stable Hold home BP medications (9) Morbid obesity with BMI of 60.0-69.9, adult Status: Chronic Plan: luan. obesity hypoventilation syndrome causes his respiratory problems. will try small dose of Zoloft 25 mg and will increase. He is a bit anxious today. Unsure if he has some underlying depression as well. (10) Hypothyroidism Status: Chronic Plan: Synthroid 25 mcg IV daily (11) Nutrition, metabolism, and development symptoms Status: Acute Plan: Fluids: none Electrolytes: Monitor and replete when necessary per protocol Nutrition: NG tube, tube feeds with Glucerna 30ml/hr, his glucerna does not have quite enough K so he needs more K daily plus he has loose stools as he is on tube feeds and probably loses more K that way. will continue to replace DVT PPx: Therapeutic Lovenox 150mg subq q12h Glucose: Insulin Levemir 20 units SQ BID plus medium dose sliding scale to control blood sugar Problem Qualifiers (1) CHF (congestive heart failure): Qualified Code: I50.9 - Acute on chronic congestive heart failure, unspecified congestive heart failure type (2) Atrial fibrillation: Qualified Code: I48.2 - Chronic atrial fibrillation (3) HTN (hypertension): Qualified Code: I10 - Essential hypertension (4) Hypothyroidism: Qualified Code: E03.9 - Hypothyroidism, unspecified type Tanya Cochran MD May 13, 2016 09:18
[2016-05-13] MEDS: INSULIN DETEMIR 100 UNITS/ML VIAL SQ SCH ×2 (10:04→21:22)
[2016-05-13] MEDS: METOLAZONE 5 MG TAB NG SCH (10:05)
[2016-05-13] MEDS: FENOFIBRATE 48 MG TAB PO SCH (10:05)
[2016-05-13] MEDS: LINEZOLID 600 MG TAB PO SCH (10:06)
[2016-05-13] MEDS: ALLOPURINOL 300 MG TAB PO SCH (10:06)
[2016-05-13] MEDS: ATORVASTATIN 10 MG TAB PO SCH (10:07)
[2016-05-13] MEDS: DILTIAZEM HCL 60 MG TAB PO SCH ×4 (10:08→21:21)
[2016-05-13] MEDS: FAMOTIDINE 20 MG TAB PO SCH ×2 (10:08→21:21)
[2016-05-13] MEDS: MONTELUKAST SODIUM 10 MG TAB PO SCH (10:08)
[2016-05-13] MEDS: predniSONE 5 MG/5 ML CUP PO SCH (10:09)
[2016-05-13] MEDS: METOCLOPRAMIDE HCL 10 MG/2 ML VIAL IV PUSH SCH ×2 (10:15→21:21)
[2016-05-13] MEDS: SODIUM CHLORIDE 0.9% FLUSH 5 ML FLUSH FLUSH SCH ×2 (10:16→21:22)
[2016-05-13] MEDS: CHLORHEXIDINE 0.12% (ORAL KIT) 15 ML CUP MT SCH ×2 (10:17→21:23)
--- NOTE | 2016-05-13 11:01 | HHI.IDPN ---
Subjective Subjective Remarks Notes reviewed Temps ok Bronch C/S negative Seems stable on the vent Awake, following commands CXR with stable infiltrates WBC remains elevated Antibiotics Rocephin Zyvox - to finish 05/13 Colistin nebs - completed 05/10 Diflucan - to finish 05/13 Lines PICC RUE Past Medical History Chronic Respiratory Failure s/p Tracheostomy 4 years ago Morbid Obesity w/ BMI 67.6 Atrial fibrillation Pulmonary embolism 4 years ago Anxiety CHF (Echo 06/07/2014 w/ EF 40-45%; ECHO 08/2015 showing a grossly normal systolic function) HTN Hypothyroidism Past Surgical History Tracheostomy Tonsillectomy Allergies: Coded Allergies: *MDRO Multi-Drug Resistant Organism (Verified Adverse Reaction, Unknown, 05/08/16) XDR Pseudomonas aeruginosa (sputum) - 09/18/15; (sputum & wound) - 04/27/16 Objective . Vital Signs Date Time Temp Pulse Resp B/P Pulse Ox O2 Delivery O2 Flow Rate FiO2 05/13/16 08:04 94 50 05/13/16 06:00 10 05/13/16 04:25 99 45 05/13/16 04:00 102 05/13/16 04:00 98.3 102 23 123/66 96 05/13/16 04:00 40 05/13/16 02:00 100 05/13/16 01:34 100 45 05/13/16 00:00 40 05/13/16 00:00 97.8 97 22 129/74 95 05/13/16 00:00 97 05/12/16 22:28 97 50 05/12/16 22:00 97 05/12/16 20:00 99 05/12/16 20:00 40 05/12/16 20:00 98.6 99 22 132/68 97 05/12/16 19:41 95 40 05/12/16 18:00 96 05/12/16 16:37 95 50 05/12/16 16:00 50 05/12/16 16:00 99 05/12/16 16:00 98.5 99 22 120/62 95 05/12/16 14:00 97 05/12/16 13:06 91 50 05/12/16 12:00 40 05/12/16 12:00 98.0 109 22 120/60 92 05/12/16 12:00 109 05/12/16 05/12/1605/13/16 15:00 23:00 07:00 Intake Total 992 ml 621 ml 530 ml Output Total 600 ml 1000 ml 450 ml Balance 392 ml -379 ml 80 ml IV Total 668 ml 302 ml 267 ml Tube Feeding 224 ml 259 ml 203 ml Other 100 ml 60 ml 60 ml Output Urine Total 600 ml 1000 ml 450 ml # Bowel Movements 1 0 1 . Laboratory Tests Test 05/12/16 05/13/16 03:45 04:25 White Blood Count 19.3 TH/MM3 18.2 TH/MM3 Red Blood Count 4.93 MIL/MM3 4.60 MIL/MM3 Hemoglobin 11.4 GM/DL 10.5 GM/DL Hematocrit 36.5 % 34.1 % Mean Corpuscular Volume 74.0 FL 74.0 FL Mean Corpuscular Hemoglobin 23.2 PG 22.8 PG Mean Corpuscular Hemoglobin 31.3 % 30.9 % Concent Red Cell Distribution Width 19.3 % 19.4 % Platelet Count 169 TH/MM3 151 TH/MM3 Mean Platelet Volume 10.4 FL 9.9 FL Neutrophils (%) (Auto) 83.3 % 80.3 % Lymphocytes (%) (Auto) 13.2 % 15.6 % Monocytes (%) (Auto) 2.6 % 2.8 % Eosinophils (%) (Auto) 0.8 % 0.7 % Basophils (%) (Auto) 0.1 % 0.6 % Neutrophils # (Auto) 16.1 TH/MM3 14.6 TH/MM3 Lymphocytes # (Auto) 2.5 TH/MM3 2.8 TH/MM3 Monocytes # (Auto) 0.5 TH/MM3 0.5 TH/MM3 Eosinophils # (Auto) 0.2 TH/MM3 0.1 TH/MM3 Basophils # (Auto) 0.0 TH/MM3 0.1 TH/MM3 CBC Comment AUTO DIFF AUTO DIFF Differential Total Cells 100 100 Counted Neutrophils % (Manual) 80 % 80 % Band Neutrophils % 3 % 2 % Lymphocytes % 7 % 8 % Monocytes % 5 % 1 % Neutrophils # (Manual) 17.0 TH/MM3 16.4 TH/MM3 Metamyelocytes 1 % 6 % Myelocytes 4 % 2 % Nucleated Red Blood Cells 1 /100 WBC Differential Comment FINAL DIFF FINAL DIFF MANUAL MANUAL Platelet Estimate NORMAL NORMAL Platelet Morphology Comment NORMAL NORMAL Eosinophils % 1 % Stomatocytes 1+ Laboratory Tests Test 05/11/16 05/12/16 05/12/16 05/13/16 20:00 03:45 21:30 04:25 Potassium Level 3.2 MEQ/L 3.2 MEQ/L 3.4 MEQ/L 3.0 MEQ/L Sodium Level 139 MEQ/L 140 MEQ/L Chloride Level 99 MEQ/L 97 MEQ/L Carbon Dioxide Level 31.4 MEQ/L 34.1 MEQ/L Anion Gap 9 MEQ/L 9 MEQ/L Blood Urea Nitrogen 30 MG/DL 21 MG/DL Creatinine 0.47 MG/DL 0.41 MG/DL Estimat Glomerular Filtration 207 ML/MIN 242 ML/MIN Rate Random Glucose 131 MG/DL 133 MG/DL Calcium Level 8.8 MG/DL 9.0 MG/DL Phosphorus Level 1.9 MG/DL 2.2 MG/DL 1.7 MG/DL Magnesium Level 1.5 MG/DL 1.5 MG/DL Total Bilirubin 0.8 MG/DL 0.8 MG/DL Aspartate Amino Transf 28 U/L 30 U/L (AST/SGOT) Alanine Aminotransferase 36 U/L 33 U/L (ALT/SGPT) Alkaline Phosphatase 51 U/L 53 U/L Total Protein 5.5 GM/DL 5.3 GM/DL Albumin 2.9 GM/DL 2.6 GM/DL Microbiology Date/Time Procedure Status Source Growth 05/10/16 14:00 Gram Stain - Final Complete Bronchial Washings Right Lower Lobe 05/10/16 14:00 Bronchial Culture - Final Complete Bronchial Washings Right Lower Lobe NO GROWTH IN 48 HOURS. 05/10/16 14:00 Acid Fast Stain - Final Resulted Bronchial Washings Right Lower Lobe NO ACID FAST BACILLI SEEN 05/10/16 14:00 Mycobacterial Culture Resulted Bronchial Washings Right Lower Lobe Pending 05/10/16 14:00 Fungal Smear - Final Resulted Bronchial Washings Right Lower Lobe NO FUNGAL ELEMENTS SEEN. 05/10/16 14:00 Fungal Culture Resulted Bronchial Washings Right Lower Lobe Pending Imaging Chest X-Ray 05/10/16 0600 Signed Impressions: Service Date/Time: Tuesday, May 10, 2016 02:45 - CONCLUSION: Worsening right lower lobe infiltrate. Jeremiah Walton Jr., MD Chest X-Ray 05/09/16 0600 Signed Impressions: Service Date/Time: April 02:52 - CONCLUSION: No significant change has occurred. Bill Zavala MD Chest X-Ray 05/08/16 0600 Signed Impressions: Service Date/Time: Sunday, May 08, 2016 04:01 - CONCLUSION: No significant change has occurred. Bill Zavala MD Chest X-Ray 05/05/16 0600 Signed Impressions: Service Date/Time: Thursday, May 05, 2016 01:56 - CONCLUSION: Improved aeration bilaterally particularly in the left upper lobe. Tube and catheter are stable. Amador Brock MD Chest X-Ray 05/03/16 0000 Signed Impressions: Service Date/Time: Tuesday, May 03, 2016 06:40 - CONCLUSION: Increasing bilateral diffuse pulmonary infiltrates compared to the prior study. Lázaro Frankel MD Upper Extremity Ultrasound 05/02/16 0000 Signed Impressions: Service Date/Time: April 20:51 - CONCLUSION: No DVT. Garcia Lujan MD Abdomen X-Ray 04/29/16 0000 Signed Impressions: Service Date/Time: Friday, April 29, 2016 07:12 - CONCLUSION: Suspect Dobbhoff tube in the distal stomach. Garcia Lujan MD Physical Exam GENERAL: Awake,responding, on the vent, not in distress. SKIN: Warm and moist. No generalized rash. No cyanosis noted. HEENT: [place] conjunctivae. No scleral icterus. Nose without purulent drainage. Moist mucosa. NECK: Short and obese, has trach, site ok. Supple, no meningeal signs. CARDIOVASCULAR: Regular rate and rhythm. Distant heart sounds. RESPIRATORY: Decreased BS bilaterally. GASTROINTESTINAL: Abdomen soft, morbidly obese, nt tender, not distended. Bowel sounds present and hypoactive. MUSCULOSKELETAL: Extremities without clubbing, cyanosis. Has mild pitting edema. NEUROLOGICAL: Awake and following LINE: PICC in RUE, site ok, : [place] in place, urine looks clear Assessment & Plan Remarks IMPRESSION Chronic respiratory failure, has new trach, has HCAP - C/S with MDR PSAE MDR PSAE PNA, S/P Rx New HCAP, C/S Providencia - increasing consolidation R base, ?plugging UTI, with Proteus Fevers, better Leukocytosis, due to PNA, and partly due to steroids - better Has an area of cellulitis in his RUE and R chest - resolved Morbid obesity Hx PE RECOMMENDATION Continue Rocephin to cover Proteus and Providencia - plan 14 days Monitor temps Follow CBC Monitor progress Weaning per CCM Dr Patiño covering this weekend Dana Tam MD May 13, 2016 11:01
[2016-05-13] MEDS: RESP: BUDESONIDE 0.5 MG/2 ML NEB NEB SCH ×2 (11:46→19:56)
[2016-05-13] MEDS: SODIUM CHLORIDE 0.9% FLUSH 5 ML FLUSH FLUSH PRN (21:22)
[2016-05-13] MEDS: POTASSIUM PHOSPHATE INJ 30 MMOL in SODIUM CHLOR 0.9% 250 ML INJ 250 ML IV PRN (23:30)
[2016-05-14] VITALS (20 sets, daily range): BP systolic 116–144; BP diastolic 60–76; PULSE 96–118; RESP 20–28; TEMP 98.3–98.8; O2SAT 85–97
[2016-05-14] MEDS: RESP: ALBUTEROL 2.5 MG/IPRATROPIUM 0.5 MG NEB (SCH) NEB ×4 (03:51→20:14)
[2016-05-14] MEDS: fentaNYL DRIP 250 ML IV SCH ×2 (05:06→16:23)
[2016-05-14] MEDS: MEDIUM DOSE INSULIN NOVOLIN REGULAR SUPPLEMENTAL SCALE SQ SCH ×6 (05:07→19:58)
[2016-05-14] MEDS: ENOXAPARIN SODIUM 150 MG/ML SYRINGE SQ SCH ×2 (05:09→15:56)
[2016-05-14] MEDS: LEVOTHYROXINE SODIUM 50 MCG TAB PO SCH (05:15)
--- NOTE | 2016-05-14 08:13 | HHI.CCPN ---
Subjective Remarks/Hospital Course 31 year old morbidly obese (BMI 68) male with chronic respiratory failure s/p tracheostomy 4 years ago, atrial fibrillation and pulmonary embolism on Xarelto , COPD, CHF and h/o HTN. He presented from [facility] with low oxygen saturation apparently his oxygen saturation was 82% on RA. He was placed back on 6L of oxygen via his trach mask and given a breathing treatment, initially improved however he started drifting back to low 80s again. Chest x-ray showed bibasilar infiltrates and pulmonary edema. Patient was admitted to the [facility] service and was started on IV steroids IV vancomycin and Zosyn and Levaquin for healthcare associated pneumonia. After starting ACV, patient was more awake but there was a significant amount of air leak around his tracheostomy. Patient has had a Shiley 6.0 Proximal XLT, but the instructor pilot balloon had been cut off. 05/02 the patient became acutely hypoxemic with a large cuff leak, underwent emergency trach exchange at bedside by Dr. Macias. FiO2 65% PEEP 14 05/13 Patient is on ventilator via trach, on Fentanyl infusion however he is awake and alert. On PRVC with FIO2 40%. Afebrile. 05/14 No acute events overnight. Tmax 99.8. Patient is awake, alert on ventilator via trach still requiring increase O2. On PRVC with PEEP: 10 and FIO2 70%. Objective Vital Signs Date Time Temp Pulse Resp B/P Pulse Ox O2 Delivery O2 Flow Rate FiO2 05/14/16 06:00 110 05/14/16 04:34 96 40 05/14/16 04:00 20 125/70 05/14/16 00:00 98.8 Intake and Output 05/13/16 05/13/16 05/13/16 07:59 15:59 23:59 Intake Total 530 ml 452 ml 903 ml Output Total 450 ml 475 ml 900 ml Balance 80 ml -23 ml 3 ml Result Diagram: 05/13/16 0425 05/13/16 Other Results Laboratory Tests Test 05/13/16 21:05 Potassium Level 3.0 MEQ/L Phosphorus Level 1.9 MG/DL Imaging Last Impressions Chest X-Ray 05/13/16 0600 Signed Impressions: Service Date/Time: Friday, May 13, 2016 03:26 - CONCLUSION: 1. Stable exam compared with May 12 with bilateral mostly basilar airspace disease. Horacio Gupta MD Upper Extremity Ultrasound 05/02/16 0000 Signed Impressions: Service Date/Time: April 20:51 - CONCLUSION: No DVT. Garcia Lujan MD Abdomen X-Ray 04/29/16 0000 Signed Impressions: Service Date/Time: Friday, April 29, 2016 07:12 - CONCLUSION: Suspect Dobbhoff tube in the distal stomach. Garcia Lujan MD Objective Remarks GENERAL: Lying in bed, on mech vent via trach in situ, on fentanyl infusion but awake and alert. SKIN: Warm and dry. HEAD: Normocephalic. Atraumatic. EYES: PERRL. No scleral icterus. No injection or drainage. ENT: No nasal drainage. Oral and nasal mucosa moist NECK: Shiley 6.0 Proximal XLT, (new trach placed 05/02/16) CARDIOVASCULAR:Tachycardic without murmurs, gallops, or rubs. Distant heart sounds RESPIRATORY: On mechanical ventilation via tracheostomy. Air entry decreased bilaterally at bases. No wheezing, diminished throughout bilaterally. GASTROINTESTINAL: Abdomen soft, non-tender, obese, normal BS. Tube feeds infusing. NEURO: RASS -2 on mechanical ventilation, on fentanyl infusion, to maintain ventilator synchrony. Opens eyes and follows commands Procedures Shiley 6.0 XLT tracheostomy exchange under visual direction by general surgery and with GlideScope, by anesthesiologist. Date of Insertion: Apr 24, 2016 Date of Insertion: Apr 26, 2016 Line: PICC Side: Right A/P Assessment and Plan ASSESSMENT Acute hypercapnic and hypoxemic respiratory failure Healthcare associated pneumonia MDR Pseudomonas Sepsis/persistent fever CHF exacerbation CO2 narcosis Tracheostomy instructor pilot balloon damage -status post exchange with new Shiley 6.0 Proximal XLT 05/02/16) Chronic Respiratory Failure s/p Tracheostomy 4 years ago (Shiley 6.0 Proximal XLT) COPD/obesity hypoventilation syndrome Morbid Obesity BMI 67 History of pulmonary embolism 4 years ago Chronic atrial fibrillation Anxiety CHF (Echo 2013 EF 40-45%; ECHO 08/2015 showing a grossly normal systolic function) Hypertension Hypothyroidism PLAN NEURO: CO2 narcosis - resolved Anxiety - On Fentanyl infusion for sedation, daily sedation vacation RESP: Acute hypercapnic and hypoxemic respiratory failure Healthcare associated pneumonia Tracheostomy instructor pilot balloon damage (Shiley 6.0 Proximal XLT) s/p new trach placement 05/02 Chronic Respiratory Failure s/p Tracheostomy 4 years ago COPD/obesity hypoventilation syndrome History of pulmonary embolism 4 years ago Leukocytosis Pulmonary edema -s/p Bronchoscopy 05/11 -follow up on BAL results - Continue mechanical ventilation PRVC TV 700 iT 1.5, PEEP 10 FiO2 70%, decrease FIO2 as beatriz - DuoNeb every 4 hours scheduled - Pulmicort BID (home med) - Continue IV Solu-Medrol to 60 mg every 6 hour - - Therapeutic Lovenox 150 mg every 12 hours CV: CHF exacerbation Pulmonary edema Chronic atrial fibrillation -Monitor HR and BP keep MAP>65mmHg - Metolazone 5 mg po daily - on Cardizem 60mg QID - Therapeutic Lovenox 150 mg twice a day GI: Super morbid obesity with BMI of 68 - Tube feeds Glucerna 1.5 with goal rate 50ml/hr - On Pepcid 20mg BID : Hypokalemia - Monitor renal function , I/O. electrolytes replacement per protocol. ID: Healthcare associated pneumonia Sepsis MDRO Possible cellulitis right arm and fast Leukocytosis Recurrent fever - Continue abx per ID ( Rocephin) -Urine cx: Proteus Mirabilis 05/05 -Sputum cx: Providencia 05/05 - Wound culture Pseudomonas MDR 04/27 - Sputum culture-Pseudomonas MDR- 04/27 - Bronchoscopy and re-culture 05/10 follow up on BAL results HEME: History of PE on chronic anticoagulation with Xarelto Leukocytosis -Monitor CBC, CMP, coags -Xarelto for PE 4 yrs ago. -Xarelto.held -On Lovenox 150 mg twice a day ENDO: Hypothyroidism -On SSI ( Medium scale) -Continue levothyroxine 25 mcgs IV daily PROPH: -Bilateral lower extremity SCDs. Lovenox DVT prophylaxis. IV Protonix for GI prophylaxis LINES: - PICC line RUE- No DVT on US Critical Care: The total critical care time was 35 minutes. Time to perform other separately billable procedures was not included in the critical care time. Flory Martino MD May 14, 2016 08:13
[2016-05-14] MEDS: RESP: BUDESONIDE 0.5 MG/2 ML NEB NEB SCH ×2 (08:24→20:14)
[2016-05-14] MEDS: cefTRIAXone INJ 2,000 MG in SODIUM CHLORIDE 0.9% INJ 100 ML IV SCH (08:48)
[2016-05-14] MEDS: CHLORHEXIDINE 0.12% (ORAL KIT) 15 ML CUP MT SCH ×2 (08:48→19:59)
[2016-05-14] MEDS: SODIUM CHLORIDE 0.9% FLUSH 5 ML FLUSH FLUSH SCH ×2 (08:48→19:58)
[2016-05-14] MEDS: NYSTATIN 100,000 U/GM PWD 15 GM BTL TOPICAL SCH ×2 (08:49→20:01)
[2016-05-14] MEDS: MICONAZOLE NITRATE 2% CREAM 15 GM TOP SCH ×2 (08:49→20:01)
[2016-05-14] MEDS: MONTELUKAST SODIUM 10 MG TAB PO SCH (08:50)
[2016-05-14] MEDS: FENOFIBRATE 48 MG TAB PO SCH (08:50)
[2016-05-14] MEDS: ALLOPURINOL 300 MG TAB PO SCH (08:50)
[2016-05-14] MEDS: ATORVASTATIN 10 MG TAB PO SCH (08:50)
[2016-05-14] MEDS: METOLAZONE 5 MG TAB NG SCH (08:50)
[2016-05-14] MEDS: FAMOTIDINE 20 MG TAB PO SCH ×2 (08:50→19:57)
[2016-05-14] MEDS: DILTIAZEM HCL 60 MG TAB PO SCH ×4 (08:50→19:57)
[2016-05-14] MEDS: predniSONE 5 MG/5 ML CUP PO SCH (08:52)
[2016-05-14] MEDS ORDERED: ALPRAZolam 0.5 MG TAB PO ONE (09:00)
[2016-05-14] MEDS: METOCLOPRAMIDE HCL 10 MG/2 ML VIAL IV PUSH SCH ×2 (09:24→19:58)
[2016-05-14] MEDS ORDERED: SERTRALINE HCL 50 MG TAB PO ONE (09:30)
[2016-05-14 09:37] LABS: AUTOMATED NEUTROPHIL # 14.8 TH/MM3 (1.8-7.7); BASOPHIL % 0.2 % (0.0-2.0); EOSINOPHIL # 0.2 TH/MM3 (0-0.4); EOSINOPHIL % 1.1 % (0.0-4.0); HEMATOCRIT 33.5 % (39.0-51.0); LYMPH % 16.7 % (9.0-44.0); LYMPHOCYTE # 3.1 TH/MM3 (1.0-4.8); MEAN CELL VOLUME 75.1 FL (80.0-100.0); MEAN CORPUSCULAR HEMOGLOBIN 23.4 PG (27.0-34.0); MEAN CORPUSCULAR HGB CONC 31.1 % (32.0-36.0); MONO % 3.4 % (0.0-8.0); NEUT % 78.6 % (16.0-70.0); PLATELET COUNT 162 TH/MM3 (150-450); RED BLOOD COUNT 4.47 MIL/MM3 (4.50-5.90); RED CELL DISTRIBUTION WIDTH 20.3 % (11.6-17.2); WHITE BLOOD COUNT 18.8 TH/MM3 (4.0-11.0)
[2016-05-14 09:39] LABS: HEMO FLAGS AUTO DIFF
[2016-05-14 09:46] LABS: BICARBONATE 36.6 MEQ/L (21.0-32.0); MAGNESIUM 1.5 MG/DL (1.5-2.5)
[2016-05-14 09:57] LABS: POTASSIUM 2.7 MEQ/L (3.5-5.1)
--- NOTE | 2016-05-14 10:20 | HHI.IDPN ---
Subjective Subjective Remarks Notes reviewed D/W RN Noted to have 2 wounds at perineum - cultures ordered Temps ok Remains vent dependent Awake, following commands CXR with stable infiltrates WBC remains elevated Antibiotics Rocephin Zyvox - to finish 05/13 Colistin nebs - completed 05/10 Diflucan - to finish 05/13 Lines PICC RUE Past Medical History Chronic Respiratory Failure s/p Tracheostomy 4 years ago Morbid Obesity w/ BMI 67.6 Atrial fibrillation Pulmonary embolism 4 years ago Anxiety CHF (Echo 06/07/2014 w/ EF 40-45%; ECHO 08/2015 showing a grossly normal systolic function) HTN Hypothyroidism Past Surgical History Tracheostomy Tonsillectomy Allergies: Coded Allergies: *MDRO Multi-Drug Resistant Organism (Verified Adverse Reaction, Unknown, 05/08/16) XDR Pseudomonas aeruginosa (sputum) - 09/18/15; (sputum & wound) - 04/27/16 Objective . Vital Signs Date Time Temp Pulse Resp B/P Pulse Ox O2 Delivery O2 Flow Rate FiO2 05/14/16 08:26 95 70 05/14/16 06:00 110 05/14/16 04:34 96 40 05/14/16 04:15 40 05/14/16 04:15 105 05/14/16 04:00 118 20 125/70 85 05/14/16 02:00 105 05/14/16 01:16 97 40 05/14/16 00:00 100 05/14/16 00:00 40 05/14/16 00:00 98.8 102 22 116/60 94 05/13/16 22:24 94 40 05/13/16 22:00 101 05/13/16 20:00 108 05/13/16 20:00 99.0 109 22 109/71 97 05/13/16 20:00 40 05/13/16 19:30 100 40 05/13/16 18:00 108 05/13/16 16:00 99.8 110 22 122/74 91 05/13/16 16:00 110 05/13/16 16:00 40 05/13/16 15:38 93 40 05/13/16 14:00 101 05/13/16 12:00 107 05/13/16 12:00 40 05/13/16 12:00 99.2 107 22 113/66 100 05/13/16 11:51 97 40 05/13/16 11:22 98.7 134 32 142/86 92 05/13/16 05/13/16 05/14/16 14:59 22:59 06:59 Intake Total 452 ml 903 ml 651 ml Output Total 475 ml 900 ml 450 ml Balance -23 ml 3 ml 201 ml Intake Oral 0 ml 0 ml IV Total 246 ml 417 ml 450 ml Tube Feeding 206 ml 286 ml 201 ml Other 200 ml 0 ml Output Urine Total 475 ml 900 ml 450 ml Tube Feeding Residual Discard 0 ml # Bowel Movements 1 0 0 . Laboratory Tests Test 05/13/16 05/14/16 04:25 08:30 White Blood Count 18.2 TH/MM3 18.8 TH/MM3 Red Blood Count 4.60 MIL/MM3 4.47 MIL/MM3 Hemoglobin 10.5 GM/DL 10.4 GM/DL Hematocrit 34.1 % 33.5 % Mean Corpuscular Volume 74.0 FL 75.1 FL Mean Corpuscular Hemoglobin 22.8 PG 23.4 PG Mean Corpuscular Hemoglobin 30.9 % 31.1 % Concent Red Cell Distribution Width 19.4 % 20.3 % Platelet Count 151 TH/MM3 162 TH/MM3 Mean Platelet Volume 9.9 FL 10.4 FL Neutrophils (%) (Auto) 80.3 % 78.6 % Lymphocytes (%) (Auto) 15.6 % 16.7 % Monocytes (%) (Auto) 2.8 % 3.4 % Eosinophils (%) (Auto) 0.7 % 1.1 % Basophils (%) (Auto) 0.6 % 0.2 % Neutrophils # (Auto) 14.6 TH/MM3 14.8 TH/MM3 Lymphocytes # (Auto) 2.8 TH/MM3 3.1 TH/MM3 Monocytes # (Auto) 0.5 TH/MM3 0.6 TH/MM3 Eosinophils # (Auto) 0.1 TH/MM3 0.2 TH/MM3 Basophils # (Auto) 0.1 TH/MM3 0.0 TH/MM3 CBC Comment AUTO DIFF AUTO DIFF Differential Total Cells 100 Counted Neutrophils % (Manual) 80 % Band Neutrophils % 2 % Lymphocytes % 8 % Monocytes % 1 % Eosinophils % 1 % Neutrophils # (Manual) 16.4 TH/MM3 Metamyelocytes 6 % Myelocytes 2 % Differential Comment FINAL DIFF MANUAL Platelet Estimate NORMAL Platelet Morphology Comment NORMAL Stomatocytes 1+ Laboratory Tests Test 05/12/16 05/13/16 05/13/16 05/14/16 21:30 04:25 21:05 08:30 Potassium Level 3.4 MEQ/L 3.0 MEQ/L 3.0 MEQ/L 2.7 MEQ/L Phosphorus Level 2.2 MG/DL 1.7 MG/DL 1.9 MG/DL 2.9 MG/DL Sodium Level 140 MEQ/L 135 MEQ/L Chloride Level 97 MEQ/L 90 MEQ/L Carbon Dioxide Level 34.1 MEQ/L 36.6 MEQ/L Anion Gap 9 MEQ/L 8 MEQ/L Blood Urea Nitrogen 21 MG/DL 20 MG/DL Creatinine 0.41 MG/DL 0.44 MG/DL Estimat Glomerular Filtration 242 ML/MIN 223 ML/MIN Rate Random Glucose 133 MG/DL 126 MG/DL Calcium Level 9.0 MG/DL 8.6 MG/DL Magnesium Level 1.5 MG/DL 1.5 MG/DL Total Bilirubin 0.8 MG/DL Aspartate Amino Transf 30 U/L (AST/SGOT) Alanine Aminotransferase 33 U/L (ALT/SGPT) Alkaline Phosphatase 53 U/L Total Protein 5.3 GM/DL Albumin 2.6 GM/DL Microbiology Date/Time Procedure Status Source Growth 05/13/16 15:05 Gram Stain - Final Resulted Wound Groin 05/13/16 15:05 Wound Culture Resulted Wound Groin Pending 05/13/16 15:05 Gram Stain - Final Resulted Wound Groin 05/13/16 15:05 Wound Culture Resulted Wound Groin Pending Imaging Chest X-Ray 05/10/16 0600 Signed Impressions: Service Date/Time: Tuesday, May 10, 2016 02:45 - CONCLUSION: Worsening right lower lobe infiltrate. Jeremiah Walton Jr., MD Chest X-Ray 05/09/16 0600 Signed Impressions: Service Date/Time: April 02:52 - CONCLUSION: No significant change has occurred. Bill Zavala MD Chest X-Ray 05/08/16 06 Signed Impressions: Service Date/Time: Sunday, May 08, 2016 04:01 - CONCLUSION: No significant change has occurred. Bill Zavala MD Chest X-Ray 05/05/16 06 Signed Impressions: Service Date/Time: Thursday, May 05, 2016 01:56 - CONCLUSION: Improved aeration bilaterally particularly in the left upper lobe. Tube and catheter are stable. Amador Brock MD Chest X-Ray 05/03/16 0000 Signed Impressions: Service Date/Time: Tuesday, May 03, 2016 06:40 - CONCLUSION: Increasing bilateral diffuse pulmonary infiltrates compared to the prior study. Lázaro Frankel MD Upper Extremity Ultrasound 05/02/16 0000 Signed Impressions: Service Date/Time: April 20:51 - CONCLUSION: No DVT. Garcia Lujan MD Abdomen X-Ray 04/29/16 0000 Signed Impressions: Service Date/Time: Friday, April 29, 2016 07:12 - CONCLUSION: Suspect Dobbhoff tube in the distal stomach. Garcia Lujan MD Physical Exam GENERAL: Awake,responding, on the vent, not in distress. SKIN: Warm and moist. No generalized rash. No cyanosis noted. HEENT: [place] conjunctivae. No scleral icterus. Nose without purulent drainage. Moist mucosa. NECK: Short and obese, has trach, site ok. Supple, no meningeal signs. CARDIOVASCULAR: Regular rate and rhythm. Distant heart sounds. RESPIRATORY: Decreased BS bilaterally. GASTROINTESTINAL: Abdomen soft, morbidly obese, not tender, not distended. MUSCULOSKELETAL: Extremities without clubbing, cyanosis. Has mild pitting edema. NEUROLOGICAL: Awake and following LINE: PICC in RUE, site ok, : [place] in place, urine looks clear Assessment & Plan Remarks IMPRESSION Chronic respiratory failure, has new trach, has HCAP - C/S with MDR PSAE MDR PSAE PNA, S/P Rx New HCAP, C/S Providencia - increasing consolidation R base, ?plugging UTI, with Proteus Fevers, better Leukocytosis, due to PNA, and partly due to steroids - better Has an area of cellulitis in his RUE and R chest - resolved Morbid obesity Hx PE RECOMMENDATION Continue Rocephin to cover Proteus and Providencia - plan 14 days Monitor temps Follow CBC Monitor progress Weaning per CCM D/W Dana Rollins MD May 14, 2016 10:20
[2016-05-14 10:37] LABS: CORRECTED NUCLEATED RBC 1 /100 WBC (0-0)
[2016-05-14 10:39] LABS: BANDS 4 % (0-6); EOSINOPHILS 1 % (0-4); METAMYELOCYTES 1 % (0-1); MYELOCYTES 6 % (0-0); NEUTROPHIL # MANUAL DIFF 15.6 TH/MM3 (1.8-7.7); POLYS (SEG NEUTROPHILS) 72 % (16-70); WBC DIFF SAMPLE 200
[2016-05-14 10:43] LABS: POLYCHROMASIA 3.3 % (0.0-1.9)
[2016-05-14 10:44] LABS: STOMATOCYTES 1+ (NORMAL)
[2016-05-14 10:45] LABS: PLATELET ESTIMATE SMEAR NORMAL (NORMAL); PLATELET MORPHOLOGY NORMAL (NORMAL); SCAN/DIFF FINAL DIFF MANUAL
[2016-05-14] MEDS: POTASSIUM CHLOR 40 MEQ PREMIX 100 ML IV PRN ×2 (12:17→14:23)
[2016-05-14] MEDS: MAGNESIUM SULFATE INJ 2 GM in SODIUM CHLORIDE 0.9% INJ 96 ML IV PRN (12:18)
--- NOTE | 2016-05-14 14:32 | HHI.FPPN ---
Subjective Remarks No acute events. Awake and alert this morning. Has no specific complaints. Currently on FiO2 70% and PEEP of 10. (Joshua Morgan MD R2) Objective Vitals Vital Signs Date Time Temp Pulse Resp B/P Pulse Ox O2 Delivery O2 Flow Rate FiO2 05/14/16 11:43 93 50 05/14/16 10:00 104 05/14/16 08:26 95 70 05/14/16 08:00 70 05/14/16 08:00 109 05/14/16 08:00 98.8 109 28 137/76 92 05/14/16 06:00 110 05/14/16 04:34 96 40 05/14/16 04:15 40 05/14/16 04:15 105 05/14/16 04:00 118 20 125/70 85 05/14/16 02:00 105 05/14/16 01:16 97 40 05/14/16 00:00 100 05/14/16 00:00 40 05/14/16 00:00 98.8 102 22 116/60 94 05/13/16 22:24 94 40 05/13/16 22:00 101 05/13/16 20:00 108 05/13/16 20:00 99.0 109 22 109/71 97 05/13/16 20:00 40 05/13/16 19:30 100 40 05/13/16 18:00 108 05/13/16 16:00 99.8 110 22 122/74 91 05/13/16 16:00 110 05/13/16 16:00 40 05/13/16 15:38 93 40 I/O 05/13/16 05/13/16 05/13/16 05/14/16 05/14/16 05/14/16 07:00 15:00 23:00 07:00 15:00 23:00 Intake Total 530 ml 452 ml 903 ml 651 ml Output Total 450 ml 475 ml 900 ml 450 ml Balance 80 ml -23 ml 3 ml 201 ml Intake Oral 0 ml 0 ml IV Total 267 ml 246 ml 417 ml 450 ml Tube Feeding 203 ml 206 ml 286 ml 201 ml Other 60 ml 200 ml 0 ml Output Urine Total 450 ml 475 ml 900 ml 450 ml Tube Feeding Residual Discard 0 ml # Bowel Movements 1 1 0 0 (Joshua Morgan MD R2) Result Diagram: 05/14/16 0830 05/14/16 0830 Objective Remarks GENERAL: Morbidly obese. On mechanical ventilation, NG tube in place, awake and alert. SKIN: Warm and dry. No rashes or lesions. Cellulitis of right chest wall. HEAD: Normocephalic. Atraumatic. ENT: No nasal drainage. Tracheotomy site is clean and dry without drainage. NECK: No JVD. CARDIOVASCULAR: Distant heart sounds. Regular rate and rhythm without murmurs, gallops, or rubs. Peripheral pulses 2+. RESPIRATORY: On mechanical ventilation. PRVC, FiO2 70%, PEEP 10. Clear to auscultation bilaterally. No rales or rhonchi. GASTROINTESTINAL: Abdomen soft, obese, distant bowel sounds. MUSCULOSKELETAL: Lower extremity edema. Decubitus ulcer prophylaxis boots in place. NEURO: Awake, alert. Answers questions with head nods. Attempts to talk but difficult with trach. (Joshua Morgan MD R2) Date of Insertion: Apr 24, 2016 (Joshua Morgan MD R2) Date of Insertion: Apr 26, 2016 Line: PICC Side: Right (Joshua Morgan MD R2) A/P Assessment and Plan Assessment and Plan Acute hypercapnic/hypoxemic respiratory failure Healthcare associated pneumonia with MDR Pseudomonas UTI with proteus mirabilis Sepsis CHF exacerbation CO2 narcosis Chronic Respiratory Failure s/p Tracheostomy 4 years ago (Shiley 6.0 Proximal XLT) COPD/obesity hypoventilation syndrome Morbid Obesity BMI 67 History of pulmonary embolism 4 years ago Chronic atrial fibrillation Anxiety CHF (Echo 2013 EF 40-45%; ECHO 08/2015 showing grossly normal systolic function) Hypertension Hypothyroidism PLAN NEURO: answering questions appropriately, awake and alert Anxiety -Wean sedatives as tolerated while maintaining synchrony with vent - Started Sertraline for depression/anxiety RESP: FiO2 70%, PEEP 10, on PRVC Acute hypercapnic/hypoxemic respiratory failure Healthcare associated pneumonia Chronic Respiratory Failure s/p Tracheostomy 4 years ago COPD/obesity hypoventilation syndrome History of pulmonary embolism 4 years ago Pulmonary edema - Bronchoscopy done, cultures pending, no growth to date -Continue mechanical ventilation PRVC TV 650 iT 1.5, PEEP 10 FiO2 70%, Wean to keep SaO2 >88% - PaO2 91, pC02 46, pH 7.45. -Healthcare associated pneumonia (MDRO) is being treated with IV Rocephin ( - ). IV Diflucan for dionne UTI. ID following -Sputum culture revealed Pseudomonas MDR, providencia stuartii -DuoNeb every 4 hours scheduled -Pulmicort BID (home med) -Continue IV Solu-Medrol to 60 mg every 6 hour, start tapering -Therapeutic Lovenox 150 mg every 12 hours -Chest x-ray bibasilar infiltrates unchanged CV: CHF exacerbation Pulmonary edema Chronic atrial fibrillation -Bumex discontinued due to hyperchloremia/hypernatremia, monitor electrolytes. -Metolazone 5 mg po daily -A. fib rate controlled -Therapeutic Lovenox 150 mg twice a day GI: Super morbid obesity with BMI of 68 -Tube feeds Glucerna 40/hr, tolerating well -Pepcid for GI prophylaxis -SSI per ICU protocol : -Monitor potassium, phosphorus and magnesium. Now hypokalemic and hypophosphoric. Losing potassium through diarrhea. -Potassium decreasing, likely insulin plus stopping potassium. Add back 40 meQ potassium per day. - Free water through Dobhoff tube for hypernatremia/hyperchloremia -Monitor renal function -[place] catheter -Urine culture revealed Dionne-, Fluconazole -Strict I&O ID: Healthcare associated pneumonia Sepsis MDRO Possible cellulitis right arm and fast Leukocytosis -IV rocephin (05/07 - ) for 14 days to cover Proteus and Providencia, colistin nebs discontinued, Zyvox for cellulitis discontinued, Diflucan discontinued -Blood urine and blood culture NGTD. Repeat blood and urine culture today -Wound culture Pseudomonas MDR -Sputum culture-Pseudomonas MDR -ID consulted, follow-up recommendations -Blood cx from .4 negative. Urine culture positive for proteus mirabilis. HEME: History of PE on chronic anticoagulation with Xarelto Leukocytosis -Monitor CBC, CMP, coags -Xarelto for PE 4 yrs ago. -Hold Xarelto. -Changed to Lovenox 150 mg twice a day ENDO: Hypothyroidism -Electrolyte replacement protocol -Continue levothyroxine 25 mcgs IV daily PROPH: -Bilateral lower extremity SCDs. Lovenox DVT prophylaxis. IV Protonix for GI prophylaxis LINES: - PICC line Discharge Planning Patient will need to be weaned from mechanical ventilation with stable clinical status. Hopeful for patient to be able to return to long-term rehab facility. If he qualifies can consider terminal worker vent facility depending on how he does. ( Joshua Morgan MD R2) Attending Attestation This 31 male is admitted with a chief complaint of Acute Respiratory Failure. Patient has been examined and the case reviewed with the resident physicians. agree with plan (Tanya Cochran MD) Joshua Morgan MD R2 May 14, 2016 14:31 Tanya Cochran MD May 19, 2016 12:07
[2016-05-15] VITALS (19 sets, daily range): BP systolic 128–147; BP diastolic 63–77; PULSE 93–115; RESP 18–23; TEMP 98.1–98.7; O2SAT 91–99
[2016-05-15] MEDS: fentaNYL DRIP 250 ML IV SCH ×2 (03:08→21:04)
[2016-05-15] MEDS: ENOXAPARIN SODIUM 150 MG/ML SYRINGE SQ SCH ×2 (03:08→16:00)
[2016-05-15] MEDS: ONDANSETRON HCL 4 MG/2 ML VIAL IV PUSH PRN ×2 (03:37→08:52)
[2016-05-15] MEDS: MEDIUM DOSE INSULIN NOVOLIN REGULAR SUPPLEMENTAL SCALE SQ SCH ×6 (03:38→20:00)
--- NOTE | 2016-05-15 05:35 | RADRPT ---
EXAM DATE/TIME: 05/15/2016 04:31 [facility] COMPARISON: CHEST SINGLE AP, May 13, 2016, 3:26. INDICATIONS : Short of breath. MEDICAL HISTORY : Hypertension. Congestive heart failure. SURGICAL HISTORY : Tracheostomy. ENCOUNTER: Subsequent ACUITY: 2 weeks PAIN SCORE: Non-responsive. LOCATION: Bilateral chest FINDINGS: A single view of the chest demonstrates bilateral mostly basilar and perihilar airspace disease, slig htly increased from May 13. No pneumothorax. Tracheostomy tube and nasogastric tube remain prese nt. Right PICC line extends cephalad in the right IJ vein. CONCLUSION: 1. Slight increase in airspace disease since May 13. Differential diagnosis includes pulmonary e chris. Support apparatus unchanged. Horacio Gupta MD on May 15, 2016 at 5:31 Board Certified Radiologist. This report was verified electronically.
[2016-05-15] MEDS: LEVOTHYROXINE SODIUM 50 MCG TAB PO SCH (05:49)
[2016-05-15 07:12] LABS: BICARBONATE 37.8 MEQ/L (21.0-32.0); MAGNESIUM 1.5 MG/DL (1.5-2.5)
[2016-05-15 07:17] LABS: POTASSIUM 2.8 MEQ/L (3.5-5.1)
[2016-05-15 07:21] LABS: AUTOMATED NEUTROPHIL # 15.2 TH/MM3 (1.8-7.7); BASOPHIL % 0.2 % (0.0-2.0); EOSINOPHIL # 0.3 TH/MM3 (0-0.4); EOSINOPHIL % 1.3 % (0.0-4.0); HEMATOCRIT 32.3 % (39.0-51.0); LYMPH % 17.1 % (9.0-44.0); LYMPHOCYTE # 3.3 TH/MM3 (1.0-4.8); MEAN CELL VOLUME 75.6 FL (80.0-100.0); MEAN CORPUSCULAR HEMOGLOBIN 23.7 PG (27.0-34.0); MEAN CORPUSCULAR HGB CONC 31.3 % (32.0-36.0); MONO % 3.9 % (0.0-8.0); NEUT % 77.5 % (16.0-70.0); PLATELET COUNT 184 TH/MM3 (150-450); RED BLOOD COUNT 4.27 MIL/MM3 (4.50-5.90); RED CELL DISTRIBUTION WIDTH 20.5 % (11.6-17.2); WHITE BLOOD COUNT 19.6 TH/MM3 (4.0-11.0)
[2016-05-15 07:25] LABS: HEMO FLAGS AUTO DIFF
[2016-05-15] MEDS: RESP: BUDESONIDE 0.5 MG/2 ML NEB NEB SCH ×2 (07:58→19:32)
[2016-05-15] MEDS: cefTRIAXone INJ 2,000 MG in SODIUM CHLORIDE 0.9% INJ 100 ML IV SCH (08:00)
[2016-05-15] MEDS: CHLORHEXIDINE 0.12% (ORAL KIT) 15 ML CUP MT SCH ×2 (08:00→20:00)
[2016-05-15] MEDS: POTASSIUM CHLOR 40 MEQ PREMIX 100 ML IV PRN (08:16)
[2016-05-15 08:35] LABS: BANDS 7 % (0-6); CORRECTED NUCLEATED RBC 2 /100 WBC (0-0); MYELOCYTES 3 % (0-0); NEUTROPHIL # MANUAL DIFF 15.5 TH/MM3 (1.8-7.7); POLYS (SEG NEUTROPHILS) 69 % (16-70); WBC DIFF SAMPLE 100
[2016-05-15 08:36] LABS: OVALOCYTES 1+ (NORMAL); PLATELET ESTIMATE SMEAR NORMAL (NORMAL); PLATELET MORPHOLOGY NORMAL (NORMAL); POLYCHROMASIA 2.8 % (0.0-1.9); SCAN/DIFF FINAL DIFF MANUAL; TEARDROP RBCS 1+ (NORMAL); TOXIC GRANULATION 1+ (NORMAL)
[2016-05-15] MEDS: ALLOPURINOL 300 MG TAB PO SCH (09:00)
[2016-05-15] MEDS: SODIUM CHLORIDE 0.9% FLUSH 5 ML FLUSH FLUSH SCH ×2 (09:00→21:14)
[2016-05-15] MEDS: METOCLOPRAMIDE HCL 10 MG/2 ML VIAL IV PUSH SCH ×2 (09:00→21:00)
[2016-05-15] MEDS: ATORVASTATIN 10 MG TAB PO SCH (10:09)
[2016-05-15] MEDS: METOLAZONE 5 MG TAB NG SCH (10:09)
[2016-05-15] MEDS: DILTIAZEM HCL 60 MG TAB PO SCH ×4 (10:09→21:05)
[2016-05-15] MEDS: predniSONE 5 MG/5 ML CUP PO SCH ×2 (10:10→21:10)
[2016-05-15] MEDS: FAMOTIDINE 20 MG TAB PO SCH ×2 (10:10→21:09)
[2016-05-15] MEDS: SERTRALINE HCL 50 MG TAB PO SCH (10:11)
[2016-05-15] MEDS: MONTELUKAST SODIUM 10 MG TAB PO SCH (10:11)
[2016-05-15] MEDS: FENOFIBRATE 48 MG TAB PO SCH (10:11)
[2016-05-15] MEDS: MICONAZOLE NITRATE 2% CREAM 15 GM TOP SCH ×2 (10:24→21:00)
[2016-05-15] MEDS: NYSTATIN 100,000 U/GM PWD 15 GM BTL TOPICAL SCH ×2 (10:24→21:00)
[2016-05-15] MEDS ORDERED: PROPOFOL 500 MG/50 ML INJ 50 ML ONE (10:45)
[2016-05-15] MEDS: RESP: ALBUTEROL 2.5 MG/IPRATROPIUM 0.5 MG NEB (PRN) NEB ×2 (10:56→19:32)
[2016-05-15] MEDS ORDERED: POTASSIUM CL 40 MEQ/30 ML LIQ UDC PO ONE (12:00)
--- NOTE | 2016-05-15 12:15 | HHI.CCPN ---
Subjective Remarks/Hospital Course 31 year old morbidly obese (BMI 68) male with chronic respiratory failure s/p tracheostomy 4 years ago, atrial fibrillation and pulmonary embolism on Xarelto , COPD, CHF and h/o HTN. He presented from [facility] with low oxygen saturation apparently his oxygen saturation was 82% on RA. He was placed back on 6L of oxygen via his trach mask and given a breathing treatment, initially improved however he started drifting back to low 80s again. Chest x-ray showed bibasilar infiltrates and pulmonary edema. Patient was [facility] and was started on IV steroids IV vancomycin and Zosyn and Levaquin for healthcare associated pneumonia. After starting ACV, patient was more awake but there was a significant amount of air leak around his tracheostomy. Patient has had a Shiley 6.0 Proximal XLT, but the aerial applicator pilot balloon had been cut off. 05/02 the patient became acutely hypoxemic with a large cuff leak, underwent emergency trach exchange at bedside by Dr. Macias. FiO2 65% PEEP 14 05/13 Patient is on ventilator via trach, on Fentanyl infusion however he is awake and alert. On PRVC with FIO2 40%. Afebrile. 05/14 No acute events overnight. Tmax 99.8. Patient is awake, alert on ventilator via trach still requiring increase O2. On PRVC with PEEP: 10 and FIO2 70%. 05/15 patient acutely desaturated after he was found. Saturation went down to 70% on 100% oxygen. Bag and mask ventilation carried out, with eventual improvement on oxygen saturation to 85%. Patient was placed on PC/AC mode of ventilation, with PEEP of 15 and instructed to pressure of 30. Eventually oxygen saturation improved to 95%. Lasix him today as the chest x-ray from today shows increasing bilateral infiltrate and pulmonary edema. Also sputum culture will be sent Objective Vital Signs Date Time Temp Pulse Resp B/P Pulse Ox O2 Delivery O2 Flow Rate FiO2 05/15/16 10:50 95 100 05/15/16 10:00 112 05/15/16 08:00 98.2 18 128/63 Intake and Output 05/14/16 05/14/16 05/15/16 08:00 16:00 00:00 Intake Total 651 ml 754 ml 794 ml Output Total 450 ml 450 ml 500 ml Balance 201 ml 304 ml 294 ml Result Diagram: 05/15/16 0600 05/15/16 0600 Other Results Microbiology Date/Time Procedure Status Source Growth 05/13/16 15:05 Gram Stain - Final Complete Wound Groin 05/13/16 15:05 Wound Culture - Final Complete Proteus Mirabilis Imaging Last Impressions Chest X-Ray 05/13/16 0600 Signed Impressions: Service Date/Time: Friday, May 13, 2016 03:26 - CONCLUSION: 1. Stable exam compared with May 12 with bilateral mostly basilar airspace disease. Horacio Gupta MD Upper Extremity Ultrasound 05/02/16 0000 Signed Impressions: Service Date/Time: April 20:51 - CONCLUSION: No DVT. Garcia Lujan MD Abdomen X-Ray 04/29/16 0000 Signed Impressions: Service Date/Time: Friday, April 29, 2016 07:12 - CONCLUSION: Suspect Dobbhoff tube in the distal stomach. Garcia Lujan MD Objective Remarks GENERAL: Lying in bed, getting bag and mask ventilation for acute hypoxia, on fentanyl infusion but awake and alert, in severe distress, cyanotic. SKIN: Warm and dry. HEAD: Normocephalic. Atraumatic. EYES: PERRL. No scleral icterus. No injection or drainage. ENT: No nasal drainage. Oral and nasal mucosa moist NECK: Shiley 6.0 Proximal XLT, (new trach placed 05/02/16) CARDIOVASCULAR:Tachycardic without murmurs, gallops, or rubs. Distant heart sounds RESPIRATORY: On B&V ventilation via tracheostomy. Air entry decreased bilaterally at bases. Acute respiratory distress due to hypoxia GASTROINTESTINAL: Abdomen soft, non-tender, obese, normal BS. Tube feeds infusing. NEURO: In acute distress now limiting neuro exam but appears to be following commands Procedures Shiley 6.0 XLT tracheostomy exchange under visual direction by general surgery and with GlideScope, by anesthesiologist. Date of Insertion: Apr 24, 2016 Date of Insertion: Apr 26, 2016 Line: PICC Side: Right A/P Assessment and Plan ASSESSMENT Acute hypercapnic and hypoxemic respiratory failure Acute worsening of hypoxia due to lung de-recruitment today 05/15/60 Healthcare associated pneumonia MDR Pseudomonas Sepsis/persistent fever CHF exacerbation CO2 narcosis Tracheostomy aerial applicator pilot balloon damage -status post exchange with new Shiley 6.0 Proximal XLT 05/02/16 Chronic Respiratory Failure s/p Tracheostomy 4 years ago (Shiley 6.0 Proximal XLT) COPD/obesity hypoventilation syndrome Morbid Obesity BMI 67 History of pulmonary embolism 4 years ago Chronic atrial fibrillation Anxiety CHF (Echo 2013 EF 40-45%; ECHO 08/2015 showing a grossly normal systolic function) Hypertension Hypothyroidism PLAN NEURO: CO2 narcosis - resolved Anxiety - On Fentanyl infusion for sedation, add propofol infusion for ventilator synchrony due to acute worsening of hypoxemia RESP: Acute hypercapnic and hypoxemic respiratory failure Acute lung derecruitment today 05/15 Healthcare associated pneumonia Tracheostomy aerial applicator pilot balloon damage (Shiley 6.0 Proximal XLT) s/p new trach placement 05/02 Chronic Respiratory Failure s/p Tracheostomy 4 years ago COPD/obesity hypoventilation syndrome History of pulmonary embolism 4 years ago Leukocytosis Pulmonary edema - Continue mechanical ventilation but change PRVC to PC/AC Insp pres 26, iT 1.3 sec and PEEP 15, FiO2 100% - s/p Bronchoscopy 05/11 -follow up on BAL results-negative today - DuoNeb every 4 hours scheduled - Pulmicort BID (home med) - Continue prednisone - Therapeutic Lovenox 150 mg every 12 hours CV: CHF exacerbation Pulmonary edema Chronic atrial fibrillation - Monitor HR and BP keep MAP>65mmHg - Continue Metolazone 5 mg po daily. Resume Lazix 40 mg BID due to worsening pulmonary edema - on Cardizem 60mg QID - Therapeutic Lovenox 150 mg twice a day GI: Super morbid obesity with BMI of 68 - Tube feeds Glucerna 1.5 with goal rate 50ml/hr - On Pepcid 20mg BID : Hypokalemia - Monitor renal function , I/O. electrolytes replacement per protocol. ID: Healthcare associated pneumonia Sepsis MDRO Possible cellulitis right arm Leukocytosis Recurrent fever - Continue abx per ID ( Rocephin) -Urine cx: Proteus Mirabilis 05/05 -Sputum cx: Providencia 05/05 - Wound culture Pseudomonas MDR 04/27 - Sputum culture-Pseudomonas MDR- 04/27 - Bronchoscopy and re-culture 05/10 follow up on BAL results-neg to date - Repeat sputum cx today HEME: History of PE on chronic anticoagulation with Xarelto Leukocytosis -Monitor CBC, CMP, coags -Xarelto for PE 4 yrs ago. -Xarelto.held, On Lovenox 150 mg twice a day ENDO: Hypothyroidism -On SSI ( Medium scale) -Continue levothyroxine 25 mcgs IV daily PROPH: -Bilateral lower extremity SCDs. Lovenox DVT prophylaxis. IV Protonix for GI prophylaxis LINES: - PICC line RUE- No DVT on US Critical Care: The total critical care time was 55 minutes. Time to perform other separately billable procedures was not included in the critical care time. Jaquan Zelaya MD May 15, 2016 12:15
[2016-05-15] MEDS: PROPOFOL 1000 MG/100 ML INJ 100 ML IV SCH ×3 (12:18→21:05)
[2016-05-15] MEDS: MAGNESIUM SULFATE 1 GM PREMIX 100 ML IV SCH ×2 (14:00→14:35)
--- NOTE | 2016-05-15 16:13 | HHI.IDPN ---
Subjective Subjective Remarks Notes reviewed Seen earlier today Had problems on the vent earlier - had required increased O2 requirement Temps ok Remains vent dependent Awake, following commands CXR with stable infiltrates WBC remains elevated Antibiotics Rocephin Lines PICC RUE Past Medical History Chronic Respiratory Failure s/p Tracheostomy 4 years ago Morbid Obesity w/ BMI 67.6 Atrial fibrillation Pulmonary embolism 4 years ago Anxiety CHF (Echo 06/07/2014 w/ EF 40-45%; ECHO 08/2015 showing a grossly normal systolic function) HTN Hypothyroidism Past Surgical History Tracheostomy Tonsillectomy Allergies: Coded Allergies: *MDRO Multi-Drug Resistant Organism (Verified Adverse Reaction, Unknown, 05/08/16) XDR Pseudomonas aeruginosa (sputum) - 09/18/15; (sputum & wound) - 04/27/16 Objective . Vital Signs Date Time Temp Pulse Resp B/P Pulse Ox O2 Delivery O2 Flow Rate FiO2 05/15/16 15:23 95 65 05/15/16 14:00 100 05/15/16 12:00 40 05/15/16 12:00 98.1 108 18 128/63 97 05/15/16 12:00 112 05/15/16 10:50 95 100 05/15/16 10:00 112 05/15/16 08:04 91 40 05/15/16 08:00 98.2 112 18 128/63 98 05/15/16 08:00 40 05/15/16 08:00 112 05/15/16 06:00 115 05/15/16 04:00 105 05/15/16 04:00 40 05/15/16 04:00 98.7 105 23 143/76 94 05/15/16 03:26 94 40 05/15/16 02:00 109 05/15/16 00:06 93 40 05/15/16 00:00 98.1 100 22 147/77 95 05/15/16 00:00 100 05/15/16 00:00 40 05/14/16 22:29 95 40 05/14/16 22:00 98 05/14/16 20:15 93 40 05/14/16 20:00 98.3 100 22 144/75 95 05/14/16 20:00 100 05/14/16 20:00 40 05/14/16 18:00 110 05/14/16 05/14/16 05/15/16 14:59 22:59 06:59 Intake Total 754 ml 794 ml 469 ml Output Total 450 ml 500 ml 300 ml Balance 304 ml 294 ml 169 ml IV Total 414 ml 455 ml 266 ml Tube Feeding 280 ml 339 ml 203 ml Other 60 ml Output Urine Total 450 ml 500 ml 300 ml # Bowel Movements 0 1 . Laboratory Tests Test 05/14/16 05/15/16 08:30 06:00 White Blood Count 18.8 TH/MM3 19.6 TH/MM3 Red Blood Count 4.47 MIL/MM3 4.27 MIL/MM3 Hemoglobin 10.4 GM/DL 10.1 GM/DL Hematocrit 33.5 % 32.3 % Mean Corpuscular Volume 75.1 FL 75.6 FL Mean Corpuscular Hemoglobin 23.4 PG 23.7 PG Mean Corpuscular Hemoglobin 31.1 % 31.3 % Concent Red Cell Distribution Width 20.3 % 20.5 % Platelet Count 162 TH/MM3 184 TH/MM3 Mean Platelet Volume 10.4 FL 10.1 FL Neutrophils (%) (Auto) 78.6 % 77.5 % Lymphocytes (%) (Auto) 16.7 % 17.1 % Monocytes (%) (Auto) 3.4 % 3.9 % Eosinophils (%) (Auto) 1.1 % 1.3 % Basophils (%) (Auto) 0.2 % 0.2 % Neutrophils # (Auto) 14.8 TH/MM3 15.2 TH/MM3 Lymphocytes # (Auto) 3.1 TH/MM3 3.3 TH/MM3 Monocytes # (Auto) 0.6 TH/MM3 0.8 TH/MM3 Eosinophils # (Auto) 0.2 TH/MM3 0.3 TH/MM3 Basophils # (Auto) 0.0 TH/MM3 0.0 TH/MM3 CBC Comment AUTO DIFF AUTO DIFF Differential Total Cells 200 100 Counted Neutrophils % (Manual) 72 % 69 % Band Neutrophils % 4 % 7 % Lymphocytes % 12 % 15 % Monocytes % 5 % 6 % Eosinophils % 1 % Neutrophils # (Manual) 15.6 TH/MM3 15.5 TH/MM3 Metamyelocytes 1 % Myelocytes 6 % 3 % Nucleated Red Blood Cells 1 /100 WBC 2 /100 WBC Differential Comment FINAL DIFF FINAL DIFF MANUAL MANUAL Platelet Estimate NORMAL NORMAL Platelet Morphology Comment NORMAL NORMAL Polychromasia 3.3 % 2.8 % Basophilic Stippling FAINT Stomatocytes 1+ Toxic Granulation 1+ Tear Drop Cells 1+ Ovalocytes 1+ Laboratory Tests Test 05/13/16 05/14/16 05/15/16 21:05 08:30 06:00 Potassium Level 3.0 MEQ/L 2.7 MEQ/L 2.8 MEQ/L Phosphorus Level 1.9 MG/DL 2.9 MG/DL 1.9 MG/DL Sodium Level 135 MEQ/L 135 MEQ/L Chloride Level 90 MEQ/L 89 MEQ/L Carbon Dioxide Level 36.6 MEQ/L 37.8 MEQ/L Anion Gap 8 MEQ/L 8 MEQ/L Blood Urea Nitrogen 20 MG/DL 19 MG/DL Creatinine 0.44 MG/DL 0.37 MG/DL Estimat Glomerular Filtration 223 ML/MIN 273 ML/MIN Rate Random Glucose 126 MG/DL 118 MG/DL Calcium Level 8.6 MG/DL 8.8 MG/DL Magnesium Level 1.5 MG/DL 1.5 MG/DL Microbiology Date/Time Procedure Status Source Growth 05/13/16 15:05 Gram Stain - Final Resulted Wound Groin 05/13/16 15:05 Wound Culture - Preliminary Resulted Proteus Mirabilis 05/13/16 15:05 Gram Stain - Final Complete Wound Groin 05/13/16 15:05 Wound Culture - Final Complete Proteus Mirabilis Imaging Chest X-Ray 05/15/16 06 Signed Impressions: Service Date/Time: Sunday, May 15, 2016 04:31 - CONCLUSION: 1. Slight increase in airspace disease since May 13. Differential diagnosis includes pulmonary edema. Support apparatus unchanged. Horacio Gupta MD Chest X-Ray 05/13/16599 Signed Impressions: Service Date/Time: Friday, May 13, 2016 03:26 - CONCLUSION: 1. Stable exam compared with May 12 with bilateral mostly basilar airspace disease. Horacio uGpta MD Chest X-Ray 05/10/16599 Signed Impressions: Service Date/Time: Tuesday, May 10, 2016 02:45 - CONCLUSION: Worsening right lower lobe infiltrate. Jeremiah Walton Jr., MD Chest X-Ray 05/09/16 06 Signed Impressions: Service Date/Time: April 02:52 - CONCLUSION: No significant change has occurred. Bill Zavala MD Chest X-Ray 05/08/16 0600 Signed Impressions: Service Date/Time: Sunday, May 08, 2016 04:01 - CONCLUSION: No significant change has occurred. Bill Zavala MD Chest X-Ray 05/05/16 0600 Signed Impressions: Service Date/Time: Thursday, May 05, 2016 01:56 - CONCLUSION: Improved aeration bilaterally particularly in the left upper lobe. Tube and catheter are stable. Amador Brock MD Chest X-Ray 05/03/16 0000 Signed Impressions: Service Date/Time: Tuesday, May 03, 2016 06:40 - CONCLUSION: Increasing bilateral diffuse pulmonary infiltrates compared to the prior study. Lázaro Frankel MD Upper Extremity Ultrasound 05/02/16 0000 Signed Impressions: Service Date/Time: April 20:51 - CONCLUSION: No DVT. Garcia Lujan MD Abdomen X-Ray 04/29/16 0000 Signed Impressions: Service Date/Time: Friday, April 29, 2016 07:12 - CONCLUSION: Suspect Dobbhoff tube in the distal stomach. Garcia Lujan MD Physical Exam GENERAL: Awake,responding, on the vent, SOB SKIN: Warm and moist. No generalized rash. No cyanosis noted. HEENT: Sabula conjunctivae. No scleral icterus. Nose without purulent drainage. Moist mucosa. NECK: Short and obese, has trach, site ok. Supple, no meningeal signs. CARDIOVASCULAR: Regular rate and rhythm. Distant heart sounds. RESPIRATORY: Decreased BS bilaterally. GASTROINTESTINAL: Abdomen soft, morbidly obese, not tender, not distended. MUSCULOSKELETAL: Extremities without clubbing, cyanosis. Has mild pitting edema. NEUROLOGICAL: Awake and following LINE: PICC in RUE, site ok, : [place] in place, urine looks clear Assessment & Plan Remarks IMPRESSION Chronic respiratory failure, has new trach, has HCAP - C/S with MDR PSAE MDR PSAE PNA, S/P Rx New HCAP, C/S Providencia - increasing consolidation R base, ?plugging UTI, with Proteus Fevers, better Leukocytosis, due to PNA, and partly due to steroids - better Has an area of cellulitis in his RUE and R chest - resolved Morbid obesity Hx PE RECOMMENDATION Continue Rocephin Repeat C/S has been ordered Follow new C/S Monitor temps Follow CBC Monitor progress Dana Tam MD May 15, 2016 16:13
--- NOTE | 2016-05-15 16:39 | HHI.FPPN ---
Subjective Remarks No acute events overnight. Afebrile, HR running 100-115, BP in 140s. This morning when turned he desaturated and had to receive bag mask ventilation. FIO2 at time of eval was 100%. When asked he says he feels better. No CP. He does not feel short of breath at the moment. No abdominal pain. Some continued leg discomfort. (Obed Glaser MD R1) Objective Vitals Vital Signs Date Time Temp Pulse Resp B/P Pulse Ox O2 Delivery O2 Flow Rate FiO2 05/15/16 15:23 95 65 05/15/16 14:00 100 05/15/16 12:00 40 05/15/16 12:00 98.1 108 18 128/63 97 05/15/16 12:00 112 05/15/16 10:50 95 100 05/15/16 10:00 112 05/15/16 08:04 91 40 05/15/16 08:00 98.2 112 18 128/63 98 05/15/16 08:00 40 05/15/16 08:00 112 05/15/16 06:00 115 05/15/16 04:00 105 05/15/16 04:00 40 05/15/16 04:00 98.7 105 23 143/76 94 05/15/16 03:26 94 40 05/15/16 02:00 109 05/15/16 00:06 93 40 05/15/16 00:00 98.1 100 22 147/77 95 05/15/16 00:00 100 05/15/16 00:00 40 05/14/16 22:29 95 40 05/14/16 22:00 98 05/14/16 20:15 93 40 05/14/16 20:00 98.3 100 22 144/75 95 05/14/16 20:00 100 05/14/16 20:00 40 05/14/16 18:00 110 I/O 05/14/16 05/14/16 05/14/16 05/15/16 05/15/16 05/15/16 06:59 14:59 22:59 06:59 14:59 22:59 Intake Total 651 ml 754 ml 794 ml 469 ml 599 ml Output Total 450 ml 450 ml 500 ml 300 ml 300 ml Balance 201 ml 304 ml 294 ml 169 ml 299 ml Intake Oral 0 ml IV Total 450 ml 414 ml 455 ml 266 ml 424 ml Tube Feeding 201 ml 280 ml 339 ml 203 ml 75 ml Other 0 ml 60 ml 100 ml Output Urine Total 450 ml 450 ml 500 ml 300 ml 300 ml # Bowel Movements 0 0 1 (Obed Glaser MD R1) Result Diagram: 05/15/16 0605/15/16 06 Objective Remarks GENERAL: Morbidly obese. On mechanical ventilation, NG tube in place, awake and alert. SKIN: Warm and dry. No rashes or lesions. Ecchymosis on abdomen superior to umbilicus in area of SQ anticoagulant injections. HEAD: Normocephalic. Atraumatic. ENT: No nasal drainage. Tracheotomy site is clean and dry without drainage. NECK: No JVD. CARDIOVASCULAR: Distant heart sounds. Regular rate and rhythm without murmurs, gallops, or rubs. Peripheral pulses 2+. RESPIRATORY: On mechanical ventilation. PRVC, FiO2 100%, PEEP 10. Clear to auscultation bilaterally. No rales or rhonchi. GASTROINTESTINAL: Abdomen soft, obese, distant bowel sounds. MUSCULOSKELETAL: Lower extremity edema. Decubitus ulcer prophylaxis boots in place. NEURO: Awake, alert. Answers questions with head nods. Attempts to talk but difficult with trach. Medications and IVs Current Medications Medications (Trade) Dose Ordered Sig/Per Route Start Time Stop Time Status Last Admin (Tylenol) 650 mg Q4H PRN PO 04/24/16 15:15 05/04/16 09:06 (NS Flush) 2 ml UNSCH PRN FLUSH 04/24/16 15:15 05/13/16 21:22 (NS Flush) 2 ml BID FLUSH 04/24/16 21:00 05/14/16 19:58 (Narcan Inj) 0.4 mg UNSCH PRN IV 04/24/16 15:15 (Zyloprim) 300 mg DAILY PO 04/25/16 09:00 05/14/16 08:50 (Lipitor) 10 mg DAILY PO 04/25/16 09:00 05/15/16 10:09 (Tricor) 48 mg DAILY PO 04/25/16 09:00 05/15/16 10:11 (Lasix) 40 mg BID PO 04/24/16 21:00 (Synthroid) 50 mcg DAILY@06 PO 04/25/16 06:00 05/15/16 05:49 (Micatin 2% Cream) 1 applic BID TOP 04/24/16 21:00 05/15/16 10:24 (Singulair) 10 mg DAILY PO 04/25/16 09:00 05/15/16 10:11 (Xarelto) 20 mg DAILY PO 04/25/16 09:00 Hold (Ambien) 5 mg HS PRN PO 04/24/16 15:15 Hold 04/25/16 19:40 (Symbicort 160-4.5 Inh) 2 puff BID INH 04/24/16 21:00 Hold 04/25/16 19:40 Miscellaneous Information Patient in critical care unit? Ass... Q361D XX 04/24/16 20:30 04/24/16 20:30 Chlorhexidine Gluconate 15 ml 15 ml BID@08,20 MT 04/25/16 08:00 05/14/16 19:59 Propofol 100 ml @ 0 mls/hr TITRATE IV 04/24/16 22:45 05/15/16 12:18 (fentaNYL DRIP) 250 ml @ 0 mls/hr TITRATE IV 04/24/16 22:45 05/15/16 03:08 (Zofran Inj) 4 mg Q6HR PRN IV PUSH 04/25/16 21:00 05/15/16 08:52 Levothyroxine Sodium 25 mcg 25 mcg DAILY@06 IV PUSH 04/26/16 09:00 Hold 05/13/16 06:06 (Versed Inj) 100 ml @ 0 mls/hr TITRATE IV 04/26/16 09:30 05/06/16 08:10 (NS Flush) See Protocol DAILY IVF 04/27/16 09:00 05/14/16 08:49 (NS Flush) See Protocol UNSCH PRN IVF 04/26/16 17:30 05/07/16 08:06 (Heparin Central Flush) See Protocol DAILY IVF 04/27/16 09:00 05/04/16 09:07 (Heparin Central Flush) See Protocol UNSCH PRN IVF 04/26/16 17:30 (NS Flush) See Protocol UNSCH PRN IVF 04/26/16 17:30 05/13/16 21:22 (NS Flush) See Protocol DAILY IVF 04/27/16 09:00 05/08/16 09:00 (NS Flush) See Protocol UNSCH PRN IVF 04/26/16 19:15 05/07/16 08:06 (Heparin Central Flush) See Protocol DAILY IVF 04/27/16 09:00 (Heparin Central Flush) See Protocol UNSCH PRN IVF 04/26/16 19:15 IV Flush See Protocol UNSCH PRN IVF 04/26/16 19:15 05/07/16 08:06 Potassium Chloride 100 ml @ 50 mls/hr Q2H PRN IV 04/27/16 08:15 05/15/16 08:16 (KCl 20 Meq Premix Inj) 100 ml @ 50 mls/hr Q2H PRN IV 04/27/16 08:15 05/11/16 15:20 Potassium Chloride 40 meq 40 meq UNSCH PRN PO/TUBE 04/27/16 08:15 05/05/16 08:32 Potassium Chloride 100 ml @ 25 mls/hr UNSCH PRN IV 04/27/16 08:15 05/13/16 01:24 Potassium Chloride 100 ml @ 50 mls/hr Q2H PRN IV 04/27/16 08:15 05/11/16 04:58 (Magnesium Sulfate Inj/NS Inj) 100 ml @ 50 mls/hr UNSCH PRN IV 04/27/16 08:15 Magnesium Oxide 800 mg 800 mg UNSCH PRN PO 04/27/16 08:15 (Magnesium Sulfate Inj/NS Inj) 100 ml @ 50 mls/hr UNSCH PRN IV 04/27/16 08:15 05/14/16 12:18 Potassium Phosphate 2000 mg 2,000 mg Q4H PRN PO 04/27/16 08:15 (Sodium Phosphate Inj/NS 250 ml Inj) 250 ml @ 42 mls/hr UNSCH PRN IV 04/27/16 08:15 (KCl 40 Meq/30 ml Liq) 40 meq UNSCH PRN PO/TUBE 04/27/16 08:15 05/15/16 08:15 Potassium Phosphate 2000 mg 2,000 mg UNSCH PRN PO/TUBE 04/27/16 08:15 (Potassium Phosphate Inj/NS 250 ml Inj) 260 ml @ 42 mls/hr UNSCH PRN IV 04/27/16 08:15 05/13/16 23:30 (Benadryl Inj) 25 mg Q4H PRN IV PUSH 04/27/16 08:30 (Elizabeth-Colace) 1 tab BID PRN PO 04/27/16 08:30 (Lovenox Inj) 150 mg Q12H SQ 05/01/16 16:00 05/15/16 16:00 (Zaroxolyn) 5 mg DAILY NG 05/03/16 07:00 05/15/16 10:09 (D50w (Vial) Inj) 25 ml UNSCH PRN IV PUSH 05/05/16 12:15 (Glucagon Inj) 1 mg UNSCH PRN OTHER 05/05/16 12:15 (NovoLIN R SUPPLEMENTAL SCALE) 1 Q4HR SQ 05/05/16 12:00 05/15/16 16:02 (Reglan Inj) 10 mg Q12HR IV PUSH 05/06/16 16:00 05/14/16 19:58 (Mycostatin Powder) 1 applic BID TOPICAL 05/06/16 21:00 05/15/16 10:24 (predniSONE LIQ) 50 mg Taper DAILY PO 05/10/16 09:00 06/03/16 08:59 05/15/16 10:10 Famotidine 20 mg 20 mg Q12HR PO 05/10/16 09:00 05/15/16 10:10 (Rocephin Inj/NS Inj) 100 ml @ 200 mls/hr Q24H IV 05/12/16 08:00 05/25/16 23:00 05/14/16 08:48 (Cardizem) 60 mg QID PO 05/13/16 09:00 05/15/16 12:17 (Zoloft) 50 mg DAILY PO 05/15/16 09:00 05/15/16 10:11 (Obed Glaser MD R1) Date of Insertion: Apr 24, 2016 (Obed Glaser MD R1) Date of Insertion: Apr 26, 2016 Line: PICC Side: Right (Obed Glaser MD R1) A/P Assessment and Plan Assessment and Plan Acute hypercapnic/hypoxemic respiratory failure Healthcare associated pneumonia with MDR Pseudomonas UTI with proteus mirabilis Sepsis CHF exacerbation CO2 narcosis Chronic Respiratory Failure s/p Tracheostomy 4 years ago (Shiley 6.0 Proximal XLT) COPD/obesity hypoventilation syndrome Morbid Obesity BMI 67 History of pulmonary embolism 4 years ago Chronic atrial fibrillation Anxiety CHF (Echo 2014 EF 40-45%; ECHO 08/2015 showing grossly normal systolic function) Hypertension Hypothyroidism PLAN NEURO: answering questions appropriately, awake and alert Anxiety -Wean sedatives as tolerated while maintaining synchrony with vent - Started Sertraline for depression/anxiety RESP: FiO2 70%, PEEP 10, on PRVC Acute hypercapnic/hypoxemic respiratory failure Healthcare associated pneumonia Chronic Respiratory Failure s/p Tracheostomy 4 years ago COPD/obesity hypoventilation syndrome History of pulmonary embolism 4 years ago Pulmonary edema - Bronchoscopy done, cultures pending, no growth to date -Continue mechanical ventilation PRVC TV 650 iT 1.5, PEEP 10 FiO2 70%, Wean to keep SaO2 >88% - PaO2 91, pC02 46, pH 7.45. -Healthcare associated pneumonia (MDRO) is being treated with IV Rocephin ( - ). IV Diflucan for heather UTI. ID following -Sputum culture revealed Pseudomonas MDR, providencia stuartii -DuoNeb every 4 hours scheduled -Pulmicort BID (home med) -Continue IV Solu-Medrol to 60 mg every 6 hour, start tapering -Therapeutic Lovenox 150 mg every 12 hours -Chest x-ray bibasilar infiltrates unchanged CV: CHF exacerbation Pulmonary edema Chronic atrial fibrillation -Bumex discontinued due to hyperchloremia/hypernatremia, monitor electrolytes. -Metolazone 5 mg po daily -A. fib rate controlled -Therapeutic Lovenox 150 mg twice a day GI: Super morbid obesity with BMI of 68 -Tube feeds Glucerna 40/hr, tolerating well -Pepcid for GI prophylaxis -SSI per ICU protocol : -Monitor potassium, phosphorus and magnesium. Now hypokalemic and hypophosphoric. Losing potassium through diarrhea. -Potassium decreasing, likely insulin plus stopping potassium. Add back 40 meQ potassium per day. - Free water through Dobhoff tube for hypernatremia/hyperchloremia -Monitor renal function -Milan catheter -Urine culture revealed Heather-, Fluconazole -Strict I&O ID: Healthcare associated pneumonia Sepsis MDRO Possible cellulitis right arm and fast Leukocytosis -IV rocephin (05/07 - ) for 14 days to cover Proteus and Providencia, colistin nebs discontinued, Zyvox for cellulitis discontinued, Diflucan discontinued -Blood urine and blood culture NGTD. Repeat blood and urine culture today -Wound culture Pseudomonas MDR -Sputum culture-Pseudomonas MDR -ID consulted, follow-up recommendations -Blood cx from 05.03 negative. Urine culture positive for proteus mirabilis. HEME: History of PE on chronic anticoagulation with Xarelto Leukocytosis -Monitor CBC, CMP, coags -Xarelto for PE 4 yrs ago. -Hold Xarelto. -Changed to Lovenox 150 mg twice a day ENDO: Hypothyroidism -Electrolyte replacement protocol -Continue levothyroxine 25 mcgs IV daily PROPH: -Bilateral lower extremity SCDs. Lovenox DVT prophylaxis. IV Protonix for GI prophylaxis LINES: - PICC line Discharge Planning Patient will need to be weaned from mechanical ventilation with stable clinical status. Hopeful for patient to be able to return to long-term rehab facility. 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 ( Obed Glaser MD R1) Attending Attestation This 31 male is admitted with a chief complaint of Acute Respiratory Failure. Patient has been examined and the case reviewed with the resident physicians. unfortunately, he desats very quickly but recovers after bagging for a short while (Tanya Cochran MD) Problem List: (1) On mechanically assisted ventilation Status: Acute Plan: Critical care actively managing acute hypercapnic and hypoxemic respiratory failure and HCAP at this time. He has obesity hypoventilation and group home the only solution is to lose 100 lbs or so. He may be able to get gastric banding/bypass at some point though he is definitely too sick right now. Started discussion about this yesterday but will also check with case management to see his past Psychiatric history or whether his mother can influence him to take the steps necessary to save his life. Patient placed on mechanical ventilation on 04/24, FiO2 now 100% with PEEP of 10 S/p urgent/emergent trach exchange 05/02 due to acute hypoxemia and large cuff leak Continue Solumedrol 60 mg IV q6h (2) HCAP (healthcare-associated pneumonia) Status: Acute Plan: Repeat ABG on 04/26 showed improvement with CO2 56 with pH 7.40 05/01 BCXs no growth (final) 05/03 BCx no growth (final) 05/04 BCx no growth (final CXR 04/29 showing stable bibasilar consolidative infiltrates 04/30 CXR shows bilateral airspace disease greater in the right lower lobe 05/05 CXR showing improved aeration bilaterally 04/27 Sputum culture growing resistant pseudomonas 05/04 repeat sputum culture munoz-sensitive Providencia stuartii 05/05 proteus mirabilis 05/10 no fungal or bacterial growth Antibiotic History Zosyn 4.5gm IV q6h (04/24 - 04/29) Levaquin 750mg IV q24h (04/24-04/30) Zerbaxa 1.5 g IV q8h (04/29 - 05/07) Vancomycin IV (04/24 - 05/06) Ceftriaxone IV (05/07 - ) Linezolid 600 mg PO BID (05/06 - 05/13) Plan - Infectious Disease consulted, appreciate recs * Continue Ceftriaxone 2 g IV Q24H * Colistin nebs * Diflucan q24h - Duonebs q2h (3) Yeast UTI Status: Acute Plan: 05/01 Urine CX growing heather albicans 05/05 repeat UA with large LE, negative nitrite, 182 WBCs; culture grew Proteus Mirabilis Continue Diflucan 400 mg IV q24h (4) Cellulitis of chest wall Status: Resolved Plan: Improved - Complete course of linezolid 600 mg PO BID (05/06-05/13) per ID recs (5) CHF (congestive heart failure) Status: Chronic Plan: Last ECHO 09/18/2015 showing a grossly normal systolic function with no definitive EF as it was difficult to assess, ECHO on 05/2014 with EF of 40-45% with mildly dilated left atrium 04/25 ECHO was limited due to poor image quality, EF could not be adequately estimated. Systolic function appears to be grossly normal. BNP on admission 419, repeat BNP 151. suspect cardiac problems from his hypoventilation. Critical care actively managing diuresis - Lasix drip discontinued - Bumex Discontinued - Completed 3 days of acetazolamide (6) Atrial fibrillation Status: Chronic Plan: Last EKG in sinus rhythm NRRR on exam Home dose of Xarelto 20 mg po daily has been held. Currently on Lovenox 150mg SQ Q12H (7) Depression Status: Acute Plan: Likely chronic and due to prolonged illness * Sertraline 25 mg PO daily (8) Tracheostomy present Status: Chronic Plan: S/p urgent/emergent trach exchange 05/02 due to acute hypoxemia and large cuff leak Has been stable since procedure (9) HTN (hypertension) Status: Chronic Plan: BPs stable Hold home BP medications (10) Morbid obesity with BMI of 60.0-69.9, adult Status: Chronic Plan: pickwickian. obesity hypoventilation syndrome causes his respiratory problems. will try small dose of Zoloft 25 mg and will increase. He is a bit anxious today. Unsure if he has some underlying depression as well. (11) Hypothyroidism Status: Chronic Plan: Synthroid 25 mcg IV daily (12) Nutrition, metabolism, and development symptoms Status: Acute Plan: Fluids: none Electrolytes: Monitor and replete when necessary per protocol Nutrition: NG tube, tube feeds with Glucerna 30ml/hr, his glucerna does not have quite enough K so he needs more K daily plus he has loose stools as he is on tube feeds and probably loses more K that way. will continue to replace DVT PPx: Therapeutic Lovenox 150mg subq q12h Glucose: Insulin Levemir 20 units SQ BID plus medium dose sliding scale to control blood sugar (Obed Glaser MD R1) Problem Qualifiers (1) CHF (congestive heart failure): Qualified Code: I50.9 - Acute on chronic congestive heart failure, unspecified congestive heart failure type (2) Atrial fibrillation: Qualified Code: I48.2 - Chronic atrial fibrillation (3) Depression: Qualified Code: F32.9 - Reactive depression (4) HTN (hypertension): Qualified Code: I10 - Essential hypertension (5) Hypothyroidism: Qualified Code: E03.9 - Hypothyroidism, unspecified type Obed Glaser MD R1 May 15, 2016 16:39 Tanya Cochran MD May 19, 2016 12:08
[2016-05-15] MEDS: FUROSEMIDE 40 MG TAB PO SCH (21:05)
[2016-05-16] VITALS (20 sets, daily range): BP systolic 119–152; BP diastolic 63–74; PULSE 93–114; RESP 15–22; TEMP 98.2–98.6; O2SAT 89–100
[2016-05-16] MEDS: PROPOFOL 1000 MG/100 ML INJ 100 ML IV SCH ×2 (01:47→04:14)
[2016-05-16] MEDS: ENOXAPARIN SODIUM 150 MG/ML SYRINGE SQ SCH ×2 (03:59→16:26)
[2016-05-16] MEDS: MEDIUM DOSE INSULIN NOVOLIN REGULAR SUPPLEMENTAL SCALE SQ SCH ×7 (04:00→23:08)
[2016-05-16 04:15] LABS: AUTOMATED NEUTROPHIL # 14.7 TH/MM3 (1.8-7.7); BASOPHIL # 0.1 TH/MM3 (0-0.2); BASOPHIL % 0.4 % (0.0-2.0); EOSINOPHIL # 0.1 TH/MM3 (0-0.4); EOSINOPHIL % 0.4 % (0.0-4.0); HEMATOCRIT 29.4 % (39.0-51.0); LYMPH % 8.6 % (9.0-44.0); LYMPHOCYTE # 1.4 TH/MM3 (1.0-4.8); MEAN CELL VOLUME 74.7 FL (80.0-100.0); MEAN CORPUSCULAR HGB CONC 32.2 % (32.0-36.0); MONO % 3.4 % (0.0-8.0); NEUT % 87.2 % (16.0-70.0); PLATELET COUNT 195 TH/MM3 (150-450); RED BLOOD COUNT 3.93 MIL/MM3 (4.50-5.90); RED CELL DISTRIBUTION WIDTH 20.3 % (11.6-17.2); WHITE BLOOD COUNT 16.8 TH/MM3 (4.0-11.0)
--- NOTE | 2016-05-16 04:17 | RADRPT ---
EXAM DATE/TIME: 05/16/2016 03:21 [facility] COMPARISON: CHEST SINGLE AP, May 15, 2016, 4:31. INDICATIONS : Shortness of breath, possible pulmonary disease. MEDICAL HISTORY : Hypertension. Congestive heart failure. SURGICAL HISTORY : Tracheostomy ENCOUNTER: Subsequent ACUITY: 2 weeks PAIN SCORE: Non-responsive. LOCATION: Bilateral chest FINDINGS: A single view of the chest demonstrates bilateral mostly basilar airspace disease slightly improved f rom May 15. Tracheostomy unchanged. NG enters stomach. Heart size mildly enlarged. CONCLUSION: 1. Slight improvement in bilateral airspace disease over the last day. Horacio Gupta MD on May 16, 2016 at 4:15 Board Certified Radiologist. This report was verified electronically.
[2016-05-16 04:18] LABS: HEMO FLAGS AUTO DIFF
[2016-05-16 04:46] LABS: ALKALINE PHOSPHATASE 53 U/L (45-117); ALT (GPT) 62 U/L (12-78); ANION GAP 7 MEQ/L (5-15); AST (GOT) 58 U/L (15-37); BICARBONATE 37.7 MEQ/L (21.0-32.0); BLOOD UREA NITROGEN 14 MG/DL (7-18); CHLORIDE 88 MEQ/L (98-107); GLOMERULAR FILTRATION RATE 236 ML/MIN (>89); MAGNESIUM 1.4 MG/DL (1.5-2.5); SODIUM (NA) 133 MEQ/L (136-145); TOTAL BILIRUBIN ADULT 0.9 MG/DL (0.2-1.0)
[2016-05-16 04:56] LABS: POTASSIUM 2.9 MEQ/L (3.5-5.1)
[2016-05-16] MEDS: LEVOTHYROXINE SODIUM 50 MCG TAB PO SCH (05:10)
[2016-05-16 05:17] LABS: BANDS 2 % (0-6); BASOPHILS 1 % (0-2); CORRECTED NUCLEATED RBC 3 /100 WBC (0-0); EOSINOPHILS 1 % (0-4); METAMYELOCYTES 1 % (0-1); MYELOCYTES 1 % (0-0); NEUTROPHIL # MANUAL DIFF 14.8 TH/MM3 (1.8-7.7); POLYS (SEG NEUTROPHILS) 84 % (16-70); WBC DIFF SAMPLE 100
[2016-05-16 05:18] LABS: OVALOCYTES 1+ (NORMAL); PLATELET ESTIMATE SMEAR NORMAL (NORMAL); PLATELET MORPHOLOGY NORMAL (NORMAL); SCAN/DIFF FINAL DIFF MANUAL; STOMATOCYTES 1+ (NORMAL)
[2016-05-16] MEDS: POTASSIUM CL 40 MEQ/30 ML LIQ UDC PO/TUBE PRN (05:33)
[2016-05-16] MEDS: POTASSIUM CHLOR 40 MEQ PREMIX 100 ML IV PRN ×3 (05:34→18:32)
[2016-05-16] MEDS: ONDANSETRON HCL 4 MG/2 ML VIAL IV PUSH PRN ×2 (06:23→22:30)
[2016-05-16] MEDS: RESP: BUDESONIDE 0.5 MG/2 ML NEB NEB SCH ×2 (08:21→19:16)
[2016-05-16] MEDS: METOLAZONE 5 MG TAB NG SCH (08:53)
[2016-05-16] MEDS: CHLORHEXIDINE 0.12% (ORAL KIT) 15 ML CUP MT SCH ×2 (08:53→19:43)
[2016-05-16] MEDS: ALLOPURINOL 300 MG TAB PO SCH (08:54)
[2016-05-16] MEDS: METOCLOPRAMIDE HCL 10 MG/2 ML VIAL IV PUSH SCH ×2 (08:54→19:47)
[2016-05-16] MEDS: FUROSEMIDE 40 MG TAB PO SCH ×2 (08:54→19:47)
[2016-05-16] MEDS: NYSTATIN 100,000 U/GM PWD 15 GM BTL TOPICAL SCH ×2 (08:54→19:48)
[2016-05-16] MEDS: SERTRALINE HCL 50 MG TAB PO SCH (08:54)
[2016-05-16] MEDS: DILTIAZEM HCL 60 MG TAB PO SCH ×4 (08:54→19:46)
[2016-05-16] MEDS: ATORVASTATIN 10 MG TAB PO SCH (08:54)
[2016-05-16] MEDS: FENOFIBRATE 48 MG TAB PO SCH (08:54)
[2016-05-16] MEDS: MICONAZOLE NITRATE 2% CREAM 15 GM TOP SCH ×2 (08:54→19:48)
[2016-05-16] MEDS: FAMOTIDINE 20 MG TAB PO SCH ×2 (08:54→19:47)
[2016-05-16] MEDS: SODIUM CHLORIDE 0.9% FLUSH 5 ML FLUSH FLUSH SCH ×2 (08:55→19:43)
--- NOTE | 2016-05-16 09:09 | HHI.FPPN ---
Subjective Remarks No acute events overnight. Resting in bed, on 15 PEEP, 50% FiO2. No reported pain. No chest pain, no abdominal pain. Having a significant amount of diarrhea with hyponatremia, hypochloremia, hypokalemia. Getting c.diff stool sample. ( Joshua Morgan MD R2) Objective Vitals Vital Signs Date Time Temp Pulse Resp B/P Pulse Ox O2 Delivery O2 Flow Rate FiO2 05/16/16 08:26 96 50 05/16/16 06:00 93 05/16/16 04:06 98 50 05/16/16 04:00 93 05/16/16 04:00 98.6 93 18 123/68 99 05/16/16 04:00 50 05/16/16 02:00 97 05/16/16 01:03 94 60 05/16/16 00:00 102 05/16/16 00:00 60 05/16/16 00:00 98.6 104 18 127/71 99 05/15/16 22:15 97 60 05/15/16 22:00 94 05/15/16 20:00 98.5 93 18 137/69 99 05/15/16 20:00 60 05/15/16 20:00 104 05/15/16 19:28 98 60 05/15/16 18:00 101 05/15/16 16:00 98.7 107 18 128/64 92 05/15/16 16:00 40 05/15/16 16:00 107 05/15/16 15:23 95 65 05/15/16 14:00 100 05/15/16 12:00 40 05/15/16 12:00 98.1 108 18 128/63 97 05/15/16 12:00 112 05/15/16 10:50 95 100 05/15/16 10:00 112 I/O 05/15/16 05/15/16 05/15/16 05/16/16 05/16/16 05/16/16 06:59 14:59 22:59 06:59 14:59 22:59 Intake Total 469 ml 599 ml 573 ml 434 ml Output Total 300 ml 300 ml 425 ml 2550 ml Balance 169 ml 299 ml 148 ml -2116 ml IV Total 266 ml 424 ml 453 ml 374 ml Tube Feeding 203 ml 75 ml Other 100 ml 120 ml 60 ml Output Urine Total 300 ml 300 ml 425 ml 2550 ml # Bowel Movements 1 (Joshua Morgan MD R2) Result Diagram: 05/16/16 0400 05/16/16 0400 Imaging Last 72 hours Impressions Chest X-Ray 05/16/16599 Signed Impressions: Service Date/Time: April 03:21 - CONCLUSION: 1. Slight improvement in bilateral airspace disease over the last day. Horacio Gupat MD Chest X-Ray 05/15/16 06 Signed Impressions: Service Date/Time: Sunday, May 15, 2016 04:31 - CONCLUSION: 1. Slight increase in airspace disease since May 13. Differential diagnosis includes pulmonary edema. Support apparatus unchanged. Horacio Gupta MD Objective Remarks GENERAL: Morbidly obese. On mechanical ventilation, NG tube in place, awake and alert. SKIN: Warm and dry. No rashes or lesions. Ecchymosis on abdomen superior to umbilicus in area of SQ anticoagulant injections. HEAD: Normocephalic. Atraumatic. ENT: No nasal drainage. Tracheotomy site is clean and dry without drainage. NECK: No JVD. CARDIOVASCULAR: Distant heart sounds. Regular rate and rhythm without murmurs, gallops, or rubs. Peripheral pulses 2+. RESPIRATORY: On mechanical ventilation. PRVC, FiO2 50%, PEEP 15. Clear to auscultation bilaterally. No rales or rhonchi. GASTROINTESTINAL: Abdomen soft, obese, distant bowel sounds. MUSCULOSKELETAL: Lower extremity edema. Decubitus ulcer prophylaxis boots in place. NEURO: Awake, alert. Answers questions with head nods. Attempts to talk but difficult with trach. (Joshua Morgan MD R2) Date of Insertion: Apr 24, 2016 (Joshua Morgan MD R2) Date of Insertion: Apr 26, 2016 Line: PICC Side: Right (Joshua Morgan MD R2) A/P Assessment and Plan Assessment and Plan Acute hypercapnic/hypoxemic respiratory failure Healthcare associated pneumonia with MDR Pseudomonas UTI with proteus mirabilis Sepsis CHF exacerbation CO2 narcosis Chronic Respiratory Failure s/p Tracheostomy 4 years ago (Shiley 6.0 Proximal XLT) COPD/obesity hypoventilation syndrome Morbid Obesity BMI 66 History of pulmonary embolism 4 years ago Chronic atrial fibrillation Anxiety CHF (Echo 2013 EF 40-45%; ECHO 08/2015 showing grossly normal systolic function) Hypertension Hypothyroidism PLAN NEURO: answering questions appropriately, awake and alert Anxiety -Wean sedatives as tolerated while maintaining synchrony with vent - Started Sertraline for depression/anxiety, reports better moods RESP: FiO2 50%, PEEP 15, on PRVC Acute hypercapnic/hypoxemic respiratory failure Healthcare associated pneumonia Chronic Respiratory Failure s/p Tracheostomy 4 years ago COPD/obesity hypoventilation syndrome History of pulmonary embolism 4 years ago Pulmonary edema - Bronchoscopy done, cultures pending, no growth to date -Continue mechanical ventilation PRVC TV 650 iT 1.5, PEEP 10 FiO2 70%, Wean to keep SaO2 >88% - PaO2 91, pC02 46, pH 7.45 (01/11/16) -Healthcare associated pneumonia (MDRO) is being treated with IV Rocephin ( - ). IV Diflucan for heather UTI. ID following -Sputum culture revealed Pseudomonas MDR, providencia stuartii -DuoNeb every 4 hours scheduled -Pulmicort BID (home med) -Continue prednisone 50 mg with taper -Therapeutic Lovenox 150 mg every 12 hours -Chest x-ray bibasilar infiltrates unchanged CV: CHF exacerbation Pulmonary edema Chronic atrial fibrillation -Bumex discontinued due to hyperchloremia/hypernatremia, monitor electrolytes. -Metolazone 5 mg po daily -A. fib rate controlled -Therapeutic Lovenox 150 mg twice a day GI: Super morbid obesity with BMI of 68 -Tube feeds Glucerna, tolerating well -Pepcid for GI prophylaxis -SSI per ICU protocol - Significant diarrhea, get c.diff, hold free water due to hyponatremia/ hypochloremia. : -Monitor potassium, phosphorus and magnesium. -Potassium decreasing, through diarrhea/insulin, replace. - Hold free water - Getting Lasix 40 mg bid, which is contributing to hyponatremia/hypokalemia. -Monitor renal function -Milan catheter -Urine culture revealed Heather-, Fluconazole -Strict I&O ID: Healthcare associated pneumonia Sepsis MDRO Possible cellulitis right arm and fast Leukocytosis -IV rocephin (05/07 - ) for 14 days to cover Proteus and Providencia, colistin nebs discontinued, Zyvox for cellulitis discontinued, Diflucan discontinued -Blood urine and blood culture NGTD. -Wound culture Pseudomonas MDR -Sputum culture-Pseudomonas MDR -ID consulted, follow-up recommendations -Blood cx from 05/03 negative. Urine culture positive for proteus mirabilis. HEME: History of PE on chronic anticoagulation with Xarelto Leukocytosis -Monitor CBC, CMP, coags -Xarelto for PE 4 yrs ago. -Hold Xarelto. -Changed to Lovenox 150 mg twice a day ENDO: Hypothyroidism -Electrolyte replacement protocol -Continue levothyroxine 25 mcgs IV daily PROPH: -Bilateral lower extremity SCDs. Lovenox DVT prophylaxis. IV Protonix for GI prophylaxis LINES: - PICC line Discharge Planning Patient will need to be weaned from mechanical ventilation with stable clinical status. Hopeful for patient to be able to return to long-term rehab facility. If he qualifies can consider detention vent facility depending on how he does. ( Joshua Morgan MD R2) Attending Attestation This 31 male is admitted with a chief complaint of Acute Respiratory Failure. Patient has been examined and the case reviewed with the resident physicians. agree with plan (Tanya Cochran MD) Joshua Morgan MD R2 May 16, 2016 09:09 Tanya Cochran MD May 19, 2016 12:10 Patient placed on mechanical ventilation on 04/24, FiO2 now 100% with PEEP of 10 S/p urgent/emergent trach exchange 05/02 due to acute hypoxemia and large cuff leak Continue Solumedrol 60 mg IV q6h (2) HCAP (healthcare-associated pneumonia) Status: Acute Plan: Repeat ABG on 04/26 showed improvement with CO2 56 with pH 7.40 05/01 BCXs no growth (final) 05/03 BCx no growth (final) 05/04 BCx no growth (final CXR 04/29 showing stable bibasilar consolidative infiltrates 04/30 CXR shows bilateral airspace disease greater in the right lower lobe 05/05 CXR showing improved aeration bilaterally 04/27 Sputum culture growing resistant pseudomonas 05/04 repeat sputum culture munoz-sensitive Providencia stuartii 05/05 proteus mirabilis 05/10 no fungal or bacterial growth Antibiotic History Zosyn 4.5gm IV q6h (04/24 - 04/29) Levaquin 750mg IV q24h (04/24-04/30) Zerbaxa 1.5 g IV q8h (04/29 - 05/07) Vancomycin IV (04/24 - 05/06) Ceftriaxone IV (05/07 - present) Linezolid 600 mg PO BID (05/06 - 05/13) Plan - Infectious Disease consulted, appreciate recs * Continue Ceftriaxone 2 g IV Q24H * Colistin nebs * Diflucan q24h - Duonebs q2h (3) Yeast UTI Status: Acute Plan: 05/01 Urine CX growing heather albicans 05/05 repeat UA with large LE, negative nitrite, 182 WBCs; culture grew Proteus Mirabilis Continue Diflucan 400 mg IV q24h (4) Cellulitis of chest wall Status: Resolved Plan: Improved - Complete course of linezolid 600 mg PO BID (05/06-05/13) per ID recs (5) CHF (congestive heart failure) Status: Chronic Plan: Last ECHO 09/18/2015 showing a grossly normal systolic function with no definitive EF as it was difficult to assess, ECHO on 05/2014 with EF of 40-45% with mildly dilated left atrium 04/25 ECHO was limited due to poor image quality, EF could not be adequately estimated. Systolic function appears to be grossly normal. BNP on admission 419, repeat BNP 151. suspect cardiac problems from his hypoventilation. Critical care actively managing diuresis - Lasix drip discontinued - Bumex Discontinued - Completed 3 days of acetazolamide (6) Atrial fibrillation Status: Chronic Plan: Last EKG in sinus rhythm NRRR on exam Home dose of Xarelto 20 mg po daily has been held. Currently on Lovenox 150mg SQ Q12H (7) Depression Status: Acute Plan: Likely chronic and due to prolonged illness * Sertraline 25 mg PO daily (8) Tracheostomy present Status: Chronic Plan: S/p urgent/emergent trach exchange 05/02 due to acute hypoxemia and large cuff leak Has been stable since procedure (9) HTN (hypertension) Status: Chronic Plan: BPs stable Hold home BP medications (10) Morbid obesity with BMI of 60.0-69.9, adult Status: Chronic Plan: sarawickian. obesity hypoventilation syndrome causes his respiratory problems. will try small dose of Zoloft 25 mg and will increase. He is a bit anxious today. Unsure if he has some underlying depression as well. (11) Hypothyroidism Status: Chronic Plan: Synthroid 25 mcg IV daily (12) Nutrition, metabolism, and development symptoms Status: Acute Plan: Fluids: none Electrolytes: Monitor and replete when necessary per protocol Nutrition: NG tube, tube feeds with Glucerna 30ml/hr, his glucerna does not have quite enough K so he needs more K daily plus he has loose stools as he is on tube feeds and probably loses more K that way. will continue to replace DVT PPx: Therapeutic Lovenox 150mg subq q12h Glucose: Insulin Levemir 20 units SQ BID plus medium dose sliding scale to control blood sugar Problem Qualifiers (1) CHF (congestive heart failure): Qualified Code: I50.9 - Acute on chronic congestive heart failure, unspecified congestive heart failure type (2) Atrial fibrillation: Qualified Code: I48.2 - Chronic atrial fibrillation (3) Depression: Qualified Code: F32.9 - Reactive depression (4) HTN (hypertension): Qualified Code: I10 - Essential hypertension (5) Hypothyroidism: Qualified Code: E03.9 - Hypothyroidism, unspecified type Joshua Morgan MD R2 May 16, 2016 09:09
--- NOTE | 2016-05-16 09:22 | HHI.CCPN ---
Subjective Remarks/Hospital Course 31 year old morbidly obese (BMI 68) male with chronic respiratory failure s/p tracheostomy 4 years ago, atrial fibrillation and pulmonary embolism on Xarelto , COPD, CHF and h/o HTN. He presented from [facility] with low oxygen saturation apparently his oxygen saturation was 82% on RA. He was placed back on 6L of oxygen via his trach mask and given a breathing treatment, initially improved however he started drifting back to low 80s again. Chest x-ray showed bibasilar infiltrates and pulmonary edema. Patient was admitted to the [facility] and was started on IV steroids IV vancomycin and Zosyn and Levaquin for healthcare associated pneumonia. After starting ACV, patient was more awake but there was a significant amount of air leak around his tracheostomy. Patient has had a Shiley 6.0 Proximal XLT, but the maritime pilot balloon had been cut off. 05/02 the patient became acutely hypoxemic with a large cuff leak, underwent emergency trach exchange at bedside by Dr. Macias. FiO2 65% PEEP 14 05/13 Patient is on ventilator via trach, on Fentanyl infusion however he is awake and alert. On PRVC with FIO2 40%. Afebrile. 05/14 No acute events overnight. Tmax 99.8. Patient is awake, alert on ventilator via trach still requiring increase O2. On PRVC with PEEP: 10 and FIO2 70%. 05/15 patient acutely desaturated after he was found. Saturation went down to 70% on 100% oxygen. Bag and mask ventilation carried out, with eventual improvement on oxygen saturation to 85%. Patient was placed on PC/AC mode of ventilation, with PEEP of 15 and instructed to pressure of 30. Eventually oxygen saturation improved to 95%. Lasix him today as the chest x-ray from today shows increasing bilateral infiltrate and pulmonary edema. Also sputum culture will be sent 05/16 Patient is on Fentanyl and Diprivan infusion but awake and alert. Afebrile. On PC/AC with PEEP:15, IP: 22, IT:1.3 and FIO2 50% Objective Vital Signs Date Time Temp Pulse Resp B/P Pulse Ox O2 Delivery O2 Flow Rate FiO2 05/16/16 08:26 96 50 05/16/16 06:00 93 05/16/16 04:00 98.6 18 123/68 Intake and Output 05/15/16 05/15/1616 07:59 15:59 23:59 Intake Total 469 ml 599 ml 573 ml Output Total 300 ml 300 ml 425 ml Balance 169 ml 299 ml 148 ml Result Diagram: 05/16/16 0400 05/16/16 0400 Other Results Laboratory Tests Test 05/16/16 04:00 White Blood Count 16.8 TH/MM3 Red Blood Count 3.93 MIL/MM3 Hemoglobin 9.5 GM/DL Hematocrit 29.4 % Mean Corpuscular Volume 74.7 FL Mean Corpuscular Hemoglobin 24.0 PG Mean Corpuscular Hemoglobin 32.2 % Concent Red Cell Distribution Width 20.3 % Platelet Count 195 TH/MM3 Mean Platelet Volume 9.2 FL Neutrophils (%) (Auto) 87.2 % Lymphocytes (%) (Auto) 8.6 % Monocytes (%) (Auto) 3.4 % Eosinophils (%) (Auto) 0.4 % Basophils (%) (Auto) 0.4 % Neutrophils # (Auto) 14.7 TH/MM3 Lymphocytes # (Auto) 1.4 TH/MM3 Monocytes # (Auto) 0.6 TH/MM3 Eosinophils # (Auto) 0.1 TH/MM3 Basophils # (Auto) 0.1 TH/MM3 CBC Comment AUTO DIFF Differential Total Cells 100 Counted Neutrophils % (Manual) 84 % Band Neutrophils % 2 % Lymphocytes % 8 % Monocytes % 2 % Eosinophils % 1 % Basophils % 1 % Neutrophils # (Manual) 14.8 TH/MM3 Metamyelocytes 1 % Myelocytes 1 % Nucleated Red Blood Cells 3 /100 WBC Differential Comment FINAL DIFF MANUAL Platelet Estimate NORMAL Platelet Morphology Comment NORMAL Ovalocytes 1+ Stomatocytes 1+ Sodium Level 133 MEQ/L Potassium Level 2.9 MEQ/L Chloride Level 88 MEQ/L Carbon Dioxide Level 37.7 MEQ/L Anion Gap 7 MEQ/L Blood Urea Nitrogen 14 MG/DL Creatinine 0.42 MG/DL Estimat Glomerular Filtration 236 ML/MIN Rate Random Glucose 133 MG/DL Calcium Level 8.5 MG/DL Magnesium Level 1.4 MG/DL Total Bilirubin 0.9 MG/DL Aspartate Amino Transf 58 U/L (AST/SGOT) Alanine Aminotransferase 62 U/L (ALT/SGPT) Alkaline Phosphatase 53 U/L Total Protein 5.6 GM/DL Albumin 2.6 GM/DL Imaging Last Impressions Chest X-Ray 05/13/16 0600 Signed Impressions: Service Date/Time: Friday, May 13, 2016 03:26 - CONCLUSION: 1. Stable exam compared with May 12 with bilateral mostly basilar airspace disease. Horacio Gupta MD Upper Extremity Ultrasound 05/02/16 0000 Signed Impressions: Service Date/Time: April 20:51 - CONCLUSION: No DVT. Garcia Lujan MD Abdomen X-Ray 04/29/16 0000 Signed Impressions: Service Date/Time: Friday, April 29, 2016 07:12 - CONCLUSION: Suspect Dobbhoff tube in the distal stomach. Garcia Lujan MD Objective Remarks GENERAL: Patient is 31yo on ventilator via trach, awake and follows commands. SKIN: Warm and dry. HEAD: Normocephalic. EYES: No scleral icterus. No injection or drainage. NECK: Supple, trachea midline. Shiley 6.0 Proximal XLT, (new trach placed ) CARDIOVASCULAR: Regular rate and rhythm without murmurs, gallops, or rubs. RESPIRATORY: Breath sounds equal bilaterally. No accessory muscle use. GASTROINTESTINAL: Abdomen soft, non-tender, nondistended. MUSCULOSKELETAL: No cyanosis, or edema. BACK: Nontender without obvious deformity. No CVA tenderness. Neuro: Awake and alert Procedures Shiley 6.0 XLT tracheostomy exchange under visual direction by general surgery and with GlideScope, by anesthesiologist. Date of Insertion: Apr 24, 2016 Date of Insertion: Apr 26, 2016 Line: PICC Side: Right A/P Assessment and Plan ASSESSMENT Acute hypercapnic and hypoxemic respiratory failure Acute worsening of hypoxia due to lung de-recruitment today 05/15/60 Healthcare associated pneumonia MDR Pseudomonas Sepsis/persistent fever CHF exacerbation CO2 narcosis Tracheostomy maritime pilot balloon damage -status post exchange with new Shiley 6.0 Proximal XLT 05/02/16 Chronic Respiratory Failure s/p Tracheostomy 4 years ago (Shiley 6.0 Proximal XLT) COPD/obesity hypoventilation syndrome Morbid Obesity BMI 67 History of pulmonary embolism 4 years ago Chronic atrial fibrillation Anxiety CHF (Echo 2013 EF 40-45%; ECHO 08/2015 showing a grossly normal systolic function) Hypertension Hypothyroidism PLAN NEURO: CO2 narcosis - resolved Anxiety - On Fentanyl/Diprivan infusion for sedation, ventilator synchrony RESP: Acute hypercapnic and hypoxemic respiratory failure Acute lung derecruitment today 05/15 Healthcare associated pneumonia Tracheostomy maritime pilot balloon damage (Shiley 6.0 Proximal XLT) s/p new trach placement 05/02 Chronic Respiratory Failure s/p Tracheostomy 4 years ago COPD/obesity hypoventilation syndrome History of pulmonary embolism 4 years ago Leukocytosis Pulmonary edema - Continue with vent support PC/AC Insp pres 22, iT 1.3 sec and PEEP 15, FiO2 50 %. Decrease PEEP: 12 as beatriz - s/p Bronchoscopy 05/11 -follow up on BAL results-negative - DuoNeb every 4 hours scheduled - Pulmicort BID (home med) - Continue prednisone - Therapeutic Lovenox 150 mg every 12 hours CV: CHF exacerbation Pulmonary edema Chronic atrial fibrillation - Monitor HR and BP keep MAP>65mmHg - Continue Lasix 40 mg BID - on Cardizem 60mg QID - Therapeutic Lovenox 150 mg twice a day GI: Super morbid obesity with BMI of 68 - Tube feeds Glucerna 1.5 with goal rate 50ml/hr - On Pepcid 20mg BID : Hypokalemia - Monitor renal function , I/O. electrolytes replacement per protocol. ID: Healthcare associated pneumonia Sepsis MDRO Possible cellulitis right arm Leukocytosis Recurrent fever - Continue abx per ID ( Rocephin) -Urine cx: Proteus Mirabilis 05/05 -Sputum cx: Providencia 05/05 -Wound cx: 05/13 Proteus - Wound culture Pseudomonas MDR 04/27 - Sputum culture-Pseudomonas MDR- 04/27 - Bronchoscopy and re-culture 05/10 follow up on BAL results-neg to date - Follow up on sputum cx from 05/15 HEME: History of PE on chronic anticoagulation with Xarelto Leukocytosis -Monitor CBC, CMP, coags -Xarelto for PE 4 yrs ago. -Xarelto.held, On Lovenox 150 mg twice a day ENDO: Hypothyroidism -On SSI ( Medium scale) -Continue levothyroxine 25 mcgs IV daily PROPH: -Bilateral lower extremity SCDs. Lovenox DVT prophylaxis. IV Protonix for GI prophylaxis LINES: - PICC line RUE- No DVT on US Critical Care: The total critical care time was 35 minutes. Time to perform other separately billable procedures was not included in the critical care time. Flory Martino MD May 16, 2016 09:22
[2016-05-16] MEDS: MONTELUKAST SODIUM 10 MG TAB PO SCH (09:44)
[2016-05-16] MEDS: fentaNYL DRIP 250 ML IV SCH ×2 (09:45→19:47)
[2016-05-16] MEDS: cefTRIAXone INJ 2,000 MG in SODIUM CHLORIDE 0.9% INJ 100 ML IV SCH (12:11)
[2016-05-16] MEDS: SODIUM CHLOR 0.9% 1000 ML INJ 1,000 ML IV SCH ×2 (12:11→19:15)
[2016-05-16] MEDS: RESP: ALBUTEROL 2.5 MG/IPRATROPIUM 0.5 MG NEB (PRN) NEB (19:16)
[2016-05-17] VITALS (19 sets, daily range): BP systolic 112–137; BP diastolic 66–75; PULSE 100–108; RESP 18–19; TEMP 98.2–99.6; O2SAT 91–96
[2016-05-17] MEDS: MEDIUM DOSE INSULIN NOVOLIN REGULAR SUPPLEMENTAL SCALE SQ SCH (02:47)
[2016-05-17] MEDS: ENOXAPARIN SODIUM 150 MG/ML SYRINGE SQ SCH ×2 (03:15→16:46)
[2016-05-17] MEDS: fentaNYL DRIP 250 ML IV SCH ×3 (03:38→21:06)
[2016-05-17] MEDS: ONDANSETRON HCL 4 MG/2 ML VIAL IV PUSH PRN ×3 (03:39→21:06)
[2016-05-17 04:04] LABS: AUTOMATED NEUTROPHIL # 12.2 TH/MM3 (1.8-7.7); BASOPHIL % 0.2 % (0.0-2.0); EOSINOPHIL # 0.3 TH/MM3 (0-0.4); EOSINOPHIL % 1.7 % (0.0-4.0); HEMATOCRIT 26.4 % (39.0-51.0); LYMPHOCYTE # 2.2 TH/MM3 (1.0-4.8); MEAN CELL VOLUME 76.4 FL (80.0-100.0); MEAN CORPUSCULAR HEMOGLOBIN 23.9 PG (27.0-34.0); MEAN CORPUSCULAR HGB CONC 31.3 % (32.0-36.0); MONO % 4.7 % (0.0-8.0); NEUT % 79.4 % (16.0-70.0); PLATELET COUNT 173 TH/MM3 (150-450); RED BLOOD COUNT 3.45 MIL/MM3 (4.50-5.90); RED CELL DISTRIBUTION WIDTH 20.9 % (11.6-17.2); WHITE BLOOD COUNT 15.4 TH/MM3 (4.0-11.0)
[2016-05-17 04:37] LABS: ALKALINE PHOSPHATASE 53 U/L (45-117); ALT (GPT) 72 U/L (12-78); ANION GAP 9 MEQ/L (5-15); AST (GOT) 61 U/L (15-37); BICARBONATE 37.2 MEQ/L (21.0-32.0); BLOOD UREA NITROGEN 14 MG/DL (7-18); CHLORIDE 89 MEQ/L (98-107); GLOMERULAR FILTRATION RATE 347 ML/MIN (>89); MAGNESIUM 1.2 MG/DL (1.5-2.5); SODIUM (NA) 135 MEQ/L (136-145); TOTAL BILIRUBIN ADULT 0.9 MG/DL (0.2-1.0)
[2016-05-17 04:44] LABS: HEMO FLAGS AUTO DIFF; POTASSIUM 2.3 MEQ/L (3.5-5.1)
[2016-05-17] MEDS: POTASSIUM CHLOR 20 MEQ PREMIX 100 ML IV PRN ×2 (05:24→05:25)
[2016-05-17] MEDS: LEVOTHYROXINE SODIUM 50 MCG TAB PO SCH (05:25)
[2016-05-17] MEDS: MAGNESIUM SULFATE INJ 2 GM in SODIUM CHLORIDE 0.9% INJ 96 ML IV PRN (05:52)
[2016-05-17 06:58] LABS: BANDS 5 % (0-6); CORRECTED NUCLEATED RBC 3 /100 WBC (0-0); METAMYELOCYTES 2 % (0-1); MYELOCYTES 4 % (0-0); NEUTROPHIL # MANUAL DIFF 12.6 TH/MM3 (1.8-7.7); POLYS (SEG NEUTROPHILS) 71 % (16-70); WBC DIFF SAMPLE 100
[2016-05-17 06:59] LABS: PLATELET ESTIMATE SMEAR NORMAL (NORMAL); PLATELET MORPHOLOGY NORMAL (NORMAL); POLYCHROMASIA 3.5 % (0.0-1.9); SCAN/DIFF FINAL DIFF MANUAL
[2016-05-17] MEDS ORDERED: POTASSIUM CHLORIDE 25 MEQ EFFERVESCENT TAB PO ONE (08:00)
[2016-05-17] MEDS: RESP: BUDESONIDE 0.5 MG/2 ML NEB NEB SCH ×2 (08:09→20:27)
[2016-05-17] MEDS: FAMOTIDINE 20 MG TAB PO SCH ×2 (08:36→21:06)
[2016-05-17] MEDS: ATORVASTATIN 10 MG TAB PO SCH (08:36)
[2016-05-17] MEDS: SODIUM CHLORIDE 0.9% FLUSH 5 ML FLUSH FLUSH SCH ×2 (08:36→20:50)
[2016-05-17] MEDS: DILTIAZEM HCL 60 MG TAB PO SCH ×4 (08:36→21:06)
[2016-05-17] MEDS: METOCLOPRAMIDE HCL 10 MG/2 ML VIAL IV PUSH SCH ×2 (08:36→21:06)
[2016-05-17] MEDS: predniSONE 5 MG/5 ML CUP PO SCH (08:37)
[2016-05-17] MEDS: ALLOPURINOL 300 MG TAB PO SCH (08:37)
[2016-05-17] MEDS: SERTRALINE HCL 50 MG TAB PO SCH (08:37)
[2016-05-17] MEDS: MONTELUKAST SODIUM 10 MG TAB PO SCH (08:37)
[2016-05-17] MEDS: FENOFIBRATE 48 MG TAB PO SCH (08:37)
--- NOTE | 2016-05-17 08:37 | HHI.CCPN ---
Subjective Remarks/Hospital Course 31 year old morbidly obese (BMI 68) male with chronic respiratory failure s/p tracheostomy 4 years ago, atrial fibrillation and pulmonary embolism on Xarelto , COPD, CHF and h/o HTN. He presented from [facility] with low oxygen saturation apparently his oxygen saturation was 82% on RA. He was placed back on 6L of oxygen via his trach mask and given a breathing treatment, initially improved however he started drifting back to low 80s again. Chest x-ray showed bibasilar infiltrates and pulmonary edema. Patient was admitted to the [facility] service and was started on IV steroids IV vancomycin and Zosyn and Levaquin for healthcare associated pneumonia. After starting ACV, patient was more awake but there was a significant amount of air leak around his tracheostomy. Patient has had a Shiley 6.0 Proximal XLT, but the pilot instructor balloon had been cut off. 05/02 the patient became acutely hypoxemic with a large cuff leak, underwent emergency trach exchange at bedside by Dr. Macias. FiO2 65% PEEP 14 05/13 Patient is on ventilator via trach, on Fentanyl infusion however he is awake and alert. On PRVC with FIO2 40%. Afebrile. 05/14 No acute events overnight. Tmax 99.8. Patient is awake, alert on ventilator via trach still requiring increase O2. On PRVC with PEEP: 10 and FIO2 70%. 05/15 patient acutely desaturated after he was found. Saturation went down to 70% on 100% oxygen. Bag and mask ventilation carried out, with eventual improvement on oxygen saturation to 85%. Patient was placed on PC/AC mode of ventilation, with PEEP of 15 and instructed to pressure of 30. Eventually oxygen saturation improved to 95%. Lasix him today as the chest x-ray from today shows increasing bilateral infiltrate and pulmonary edema. Also sputum culture will be sent 05/16 Patient is on Fentanyl and Diprivan infusion but awake and alert. Afebrile. On PC/AC with PEEP:15, IP: 22, IT:1.3 and FIO2 50% 05/17 Patient is off Diprivan and remains on Fentanyl infusion for sedation. On PC/AC with PEEP: down 10 and FIO2 40%. Afebrile. Objective Vital Signs Date Time Temp Pulse Resp B/P Pulse Ox O2 Delivery O2 Flow Rate FiO2 05/17/16 08:16 92 Ventilator 40 05/17/16 06:00 108 05/17/16 04:00 98.2 18 112/66 Intake and Output 05/16/16 05/16/16 05/17/16 08:00 16:00 00:00 Intake Total 434 ml 865 ml 916 ml Output Total 2550 ml 900 ml 500 ml Balance -2116 ml -35 ml 416 ml Result Diagram: 05/17/16 0345 05/17/16 0345 Other Results Laboratory Tests Test 05/16/16 05/17/16 14:08 03:45 Potassium Level 2.7 MEQ/L 2.3 MEQ/L White Blood Count 15.4 TH/MM3 Red Blood Count 3.45 MIL/MM3 Hemoglobin 8.3 GM/DL Hematocrit 26.4 % Mean Corpuscular Volume 76.4 FL Mean Corpuscular Hemoglobin 23.9 PG Mean Corpuscular Hemoglobin 31.3 % Concent Red Cell Distribution Width 20.9 % Platelet Count 173 TH/MM3 Mean Platelet Volume 9.1 FL Neutrophils (%) (Auto) 79.4 % Lymphocytes (%) (Auto) 14.0 % Monocytes (%) (Auto) 4.7 % Eosinophils (%) (Auto) 1.7 % Basophils (%) (Auto) 0.2 % Neutrophils # (Auto) 12.2 TH/MM3 Lymphocytes # (Auto) 2.2 TH/MM3 Monocytes # (Auto) 0.7 TH/MM3 Eosinophils # (Auto) 0.3 TH/MM3 Basophils # (Auto) 0.0 TH/MM3 CBC Comment AUTO DIFF Differential Total Cells 100 Counted Neutrophils % (Manual) 71 % Band Neutrophils % 5 % Lymphocytes % 15 % Monocytes % 3 % Neutrophils # (Manual) 12.6 TH/MM3 Metamyelocytes 2 % Myelocytes 4 % Nucleated Red Blood Cells 3 /100 WBC Differential Comment FINAL DIFF MANUAL Platelet Estimate NORMAL Platelet Morphology Comment NORMAL Polychromasia 3.5 % Basophilic Stippling MOD Sodium Level 135 MEQ/L Chloride Level 89 MEQ/L Carbon Dioxide Level 37.2 MEQ/L Anion Gap 9 MEQ/L Blood Urea Nitrogen 14 MG/DL Creatinine 0.30 MG/DL Estimat Glomerular Filtration 347 ML/MIN Rate Random Glucose 95 MG/DL Calcium Level 8.1 MG/DL Phosphorus Level 3.4 MG/DL Magnesium Level 1.2 MG/DL Total Bilirubin 0.9 MG/DL Aspartate Amino Transf 61 U/L (AST/SGOT) Alanine Aminotransferase 72 U/L (ALT/SGPT) Alkaline Phosphatase 53 U/L Total Protein 5.2 GM/DL Albumin 2.4 GM/DL Imaging Last Impressions Chest X-Ray 05/16/16 0600 Signed Impressions: Service Date/Time: April 03:21 - CONCLUSION: 1. Slight improvement in bilateral airspace disease over the last day. Horacio Gupta MD Upper Extremity Ultrasound 05/02/16 0000 Signed Impressions: Service Date/Time: , May 02, 2016 20:51 - CONCLUSION: No DVT. Garcia Lujan MD Abdomen X-Ray 04/29/16 0000 Signed Impressions: Service Date/Time: Friday, April 29, 2016 07:12 - CONCLUSION: Suspect Dobbhoff tube in the distal stomach. Garcia Lujan MD Objective Remarks GENERAL: Patient is 31yo on ventilator via trach, awake and follows commands. SKIN: Warm and dry. HEAD: Normocephalic. EYES: No scleral icterus. No injection or drainage. NECK: Supple, trachea midline. Shiley 6.0 Proximal XLT, (new trach placed ) CARDIOVASCULAR: Regular rate and rhythm without murmurs, gallops, or rubs. RESPIRATORY: Breath sounds equal bilaterally. No accessory muscle use. GASTROINTESTINAL: Abdomen soft, non-tender, nondistended. MUSCULOSKELETAL: No cyanosis, or edema. BACK: Nontender without obvious deformity. No CVA tenderness. Neuro: Awake and alert Procedures Shiley 6.0 XLT tracheostomy exchange under visual direction by general surgery and with GlideScope, by anesthesiologist. Date of Insertion: Apr 24, 2016 Date of Insertion: Apr 26, 2016 Line: PICC Side: Right A/P Assessment and Plan ASSESSMENT Acute hypercapnic and hypoxemic respiratory failure Acute worsening of hypoxia due to lung de-recruitment today 05/15/60 Healthcare associated pneumonia MDR Pseudomonas Sepsis/persistent fever CHF exacerbation CO2 narcosis Tracheostomy pilot instructor balloon damage -status post exchange with new Shiley 6.0 Proximal XLT 05/02/16 Chronic Respiratory Failure s/p Tracheostomy 4 years ago (Shiley 6.0 Proximal XLT) COPD/obesity hypoventilation syndrome Morbid Obesity BMI 67 History of pulmonary embolism 4 years ago Chronic atrial fibrillation Anxiety CHF (Echo 2014 EF 40-45%; ECHO 08/2015 showing a grossly normal systolic function) Hypertension Hypothyroidism PLAN NEURO: CO2 narcosis - resolved Anxiety - On Fentanyl/Diprivan infusion for sedation, ventilator synchrony RESP: Acute hypercapnic and hypoxemic respiratory failure Acute lung derecruitment today 05/15 Healthcare associated pneumonia Tracheostomy pilot instructor balloon damage (Shiley 6.0 Proximal XLT) s/p new trach placement 05/02 Chronic Respiratory Failure s/p Tracheostomy 4 years ago COPD/obesity hypoventilation syndrome History of pulmonary embolism 4 years ago Leukocytosis Pulmonary edema - Continue with vent support PC/AC Insp pres 22, iT 1.0 sec and PEEP 10, FiO2 40 %. Decrease PEEP as beatriz - s/p Bronchoscopy 05/11 -follow up on BAL results-negative - DuoNeb every 4 hours scheduled - Pulmicort BID (home med) - Continue prednisone - Therapeutic Lovenox 150 mg every 12 hours CV: CHF exacerbation Pulmonary edema Chronic atrial fibrillation - Monitor HR and BP keep MAP>65mmHg - on Cardizem 60mg QID - Therapeutic Lovenox 150 mg twice a day GI: Super morbid obesity with BMI of 68 Restart- Tube feeds Glucerna 1.5 with goal rate 50ml/hr - On Pepcid 20mg BID : Hypokalemia - Monitor renal function , I/O. electrolytes replacement per protocol. - Will need K, Mg replacement today. d/c Lasix ID: Healthcare associated pneumonia Sepsis MDRO Possible cellulitis right arm Leukocytosis Recurrent fever - Continue abx per ID ( Rocephin) -Urine cx: Proteus Mirabilis 05/05 -Sputum cx: Providencia 05/05 -Wound cx: 05/13 Proteus, Pseudomonas, Group D Enterococcus - Wound culture Pseudomonas MDR 04/27 - Sputum culture-Pseudomonas MDR- 04/27 - Bronchoscopy and re-culture 05/10 follow up on BAL results-neg to date - Follow up on sputum cx from 05/15- NGTD HEME: History of PE on chronic anticoagulation with Xarelto Leukocytosis -Monitor CBC, CMP, coags -Xarelto for PE 4 yrs ago. -Xarelto.held, On Lovenox 150 mg twice a day ENDO: Hypothyroidism -On SSI ( Medium scale) -Continue levothyroxine 25 mcgs IV daily PROPH: -Bilateral lower extremity SCDs. Lovenox DVT prophylaxis. IV Protonix for GI prophylaxis LINES: - PICC line RUE- No DVT on US Critical Care: The total critical care time was 35 minutes. Time to perform other separately billable procedures was not included in the critical care time. Flory Martino MD May 17, 2016 08:37
[2016-05-17] MEDS: ACETAMINOPHEN 325 MG TAB PO PRN (08:38)
[2016-05-17] MEDS: cefTRIAXone INJ 2,000 MG in SODIUM CHLORIDE 0.9% INJ 100 ML IV SCH (08:39)
--- NOTE | 2016-05-17 10:32 | HHI.IDPN ---
Subjective Subjective Remarks Notes reviewed D/W RN Vomited this morning, desat again Currently on FiO2 0.5 Temps ok Remains vent dependent Last sputum C/S neg 05/15 CXR 05/16 some improvement in infiltrates Antibiotics Rocephin Lines PICC RUE Past Medical History Chronic Respiratory Failure s/p Tracheostomy 4 years ago Morbid Obesity w/ BMI 67.6 Atrial fibrillation Pulmonary embolism 4 years ago Anxiety CHF (Echo 06/07/2014 w/ EF 40-45%; ECHO 08/2015 showing a grossly normal systolic function) HTN Hypothyroidism Past Surgical History Tracheostomy Tonsillectomy Allergies: Coded Allergies: *MDRO Multi-Drug Resistant Organism (Verified Adverse Reaction, Unknown, 05/08/16) XDR Pseudomonas aeruginosa (sputum) - 09/18/15; (sputum & wound) - 04/27/16 Objective . Vital Signs Date Time Temp Pulse Resp B/P Pulse Ox O2 Delivery O2 Flow Rate FiO2 05/17/16 10:00 104 05/17/16 09:00 50 05/17/16 08:16 92 Ventilator 40 05/17/16 08:16 91 40 05/17/16 08:16 40 05/17/16 08:00 98.5 107 19 127/69 96 05/17/16 08:00 107 05/17/16 08:00 50 05/17/16 06:00 108 05/17/16 04:08 95 40 05/17/16 04:00 100 05/17/16 04:00 98.2 100 18 112/66 96 05/17/16 04:00 50 05/17/16 02:00 100 05/17/16 01:27 95 40 05/17/16 00:00 98.6 101 18 115/67 96 05/17/16 00:00 101 05/17/16 00:00 50 05/16/16 22:17 100 40 05/16/16 22:00 100 05/16/16 20:00 98.2 102 18 120/63 99 05/16/16 20:00 102 05/16/16 20:00 50 05/16/16 19:16 96 50 05/16/16 18:00 110 05/16/16 16:00 50 05/16/16 16:00 98.4 114 22 152/73 89 05/16/16 16:00 114 11/17/16 15:30 92 50 05/16/16 14:00 101 05/16/16 12:00 100 05/16/16 12:00 50 05/16/16 12:00 98.4 100 15 139/74 95 05/16/16 11:35 95 50 05/16/16 05/16/16 05/17/16 15:00 23:00 07:00 Intake Total 865 ml 916 ml 887 ml Output Total 900 ml 500 ml 1200 ml Balance -35 ml 416 ml -313 ml IV Total 775 ml 850 ml 855 ml Tube Feeding 30 ml 66 ml 32 ml Other 60 ml Output Urine Total 900 ml 500 ml 1200 ml # Bowel Movements 1 . Laboratory Tests Test 05/16/16 05/17/16 04:00 03:45 White Blood Count 16.8 TH/MM3 15.4 TH/MM3 Red Blood Count 3.93 MIL/MM3 3.45 MIL/MM3 Hemoglobin 9.5 GM/DL 8.3 GM/DL Hematocrit 29.4 % 26.4 % Mean Corpuscular Volume 74.7 FL 76.4 FL Mean Corpuscular Hemoglobin 24.0 PG 23.9 PG Mean Corpuscular Hemoglobin 32.2 % 31.3 % Concent Red Cell Distribution Width 20.3 % 20.9 % Platelet Count 195 TH/MM3 173 TH/MM3 Mean Platelet Volume 9.2 FL 9.1 FL Neutrophils (%) (Auto) 87.2 % 79.4 % Lymphocytes (%) (Auto) 8.6 % 14.0 % Monocytes (%) (Auto) 3.4 % 4.7 % Eosinophils (%) (Auto) 0.4 % 1.7 % Basophils (%) (Auto) 0.4 % 0.2 % Neutrophils # (Auto) 14.7 TH/MM3 12.2 TH/MM3 Lymphocytes # (Auto) 1.4 TH/MM3 2.2 TH/MM3 Monocytes # (Auto) 0.6 TH/MM3 0.7 TH/MM3 Eosinophils # (Auto) 0.1 TH/MM3 0.3 TH/MM3 Basophils # (Auto) 0.1 TH/MM3 0.0 TH/MM3 CBC Comment AUTO DIFF AUTO DIFF Differential Total Cells 100 100 Counted Neutrophils % (Manual) 84 % 71 % Band Neutrophils % 2 % 5 % Lymphocytes % 8 % 15 % Monocytes % 2 % 3 % Eosinophils % 1 % Basophils % 1 % Neutrophils # (Manual) 14.8 TH/MM3 12.6 TH/MM3 Metamyelocytes 1 % 2 % Myelocytes 1 % 4 % Nucleated Red Blood Cells 3 /100 WBC 3 /100 WBC Differential Comment FINAL DIFF FINAL DIFF MANUAL MANUAL Platelet Estimate NORMAL NORMAL Platelet Morphology Comment NORMAL NORMAL Ovalocytes 1+ Stomatocytes 1+ Polychromasia 3.5 % Basophilic Stippling MOD Laboratory Tests Test 05/16/16 05/16/16 05/17/16 04:00 14:08 03:45 Sodium Level 133 MEQ/L 135 MEQ/L Potassium Level 2.9 MEQ/L 2.7 MEQ/L 2.3 MEQ/L Chloride Level 88 MEQ/L 89 MEQ/L Carbon Dioxide Level 37.7 MEQ/L 37.2 MEQ/L Anion Gap 7 MEQ/L 9 MEQ/L Blood Urea Nitrogen 14 MG/DL 14 MG/DL Creatinine 0.42 MG/DL 0.30 MG/DL Estimat Glomerular Filtration 236 ML/MIN 347 ML/MIN Rate Random Glucose 133 MG/DL 95 MG/DL Calcium Level 8.5 MG/DL 8.1 MG/DL Magnesium Level 1.4 MG/DL 1.2 MG/DL Total Bilirubin 0.9 MG/DL 0.9 MG/DL Aspartate Amino Transf 58 U/L 61 U/L (AST/SGOT) Alanine Aminotransferase 62 U/L 72 U/L (ALT/SGPT) Alkaline Phosphatase 53 U/L 53 U/L Total Protein 5.6 GM/DL 5.2 GM/DL Albumin 2.6 GM/DL 2.4 GM/DL Phosphorus Level 3.4 MG/DL Microbiology Date/Time Procedure Status Source Growth 05/15/16 20:20 Gram Stain - Final Complete Sputum Endotracheal 05/15/16 20:20 Sputum Culture - Final Complete Sputum Endotracheal NO GROWTH IN 48 HOURS. Imaging Chest X-Ray 05/16/16 0600 Signed Impressions: Service Date/Time: April 03:21 - CONCLUSION: 1. Slight improvement in bilateral airspace disease over the last day. Horacio Gupta MD Chest X-Ray 05/15/16 0600 Signed Impressions: Service Date/Time: Sunday, May 15, 2016 04:31 - CONCLUSION: 1. Slight increase in airspace disease since May 13. Differential diagnosis includes pulmonary edema. Support apparatus unchanged. Horacio Gupta MD Chest X-Ray 05/13/16 06 Signed Impressions: Service Date/Time: Friday, May 13, 2016 03:26 - CONCLUSION: 1. Stable exam compared with May 12 with bilateral mostly basilar airspace disease. Horacio Gupta MD Chest X-Ray 05/10/16 06 Signed Impressions: Service Date/Time: Tuesday, May 10, 2016 02:45 - CONCLUSION: Worsening right lower lobe infiltrate. Jeremiah Walton Jr., MD Chest X-Ray 05/09/16 06 Signed Impressions: Service Date/Time: April 02:52 - CONCLUSION: No significant change has occurred. Bill Zavala MD Chest X-Ray 05/08/16 06 Signed Impressions: Service Date/Time: Sunday, May 08, 2016 04:01 - CONCLUSION: No significant change has occurred. Bill Zavala MD Chest X-Ray 05/05/16 06 Signed Impressions: Service Date/Time: Thursday, May 05, 2016 01:56 - CONCLUSION: Improved aeration bilaterally particularly in the left upper lobe. Tube and catheter are stable. Amador Brock MD Chest X-Ray 05/03/16 0000 Signed Impressions: Service Date/Time: Tuesday, May 03, 2016 06:40 - CONCLUSION: Increasing bilateral diffuse pulmonary infiltrates compared to the prior study. Lázaro Frankel MD Upper Extremity Ultrasound 05/02/16 0000 Signed Impressions: Service Date/Time: April 20:51 - CONCLUSION: No DVT. Garcia Lujan MD Abdomen X-Ray 04/29/16 0000 Signed Impressions: Service Date/Time: Friday, April 29, 2016 07:12 - CONCLUSION: Suspect Dobbhoff tube in the distal stomach. Garcia Lujan MD Physical Exam GENERAL: Awakens easily, on the vent, comfortable SKIN: Warm and moist. No generalized rash. No cyanosis noted. HEENT: [place] conjunctivae. No scleral icterus. Nose without purulent drainage. Moist mucosa. NECK: Short and obese, has trach, site ok. Supple, no meningeal signs. CARDIOVASCULAR: Regular rate and rhythm. Distant heart sounds. RESPIRATORY: Decreased BS bilaterally. GASTROINTESTINAL: Abdomen soft, morbidly obese, not tender, not distended. MUSCULOSKELETAL: Extremities without clubbing, cyanosis. Has mild pitting edema. NEUROLOGICAL: Awake and following LINE: PICC in RUE, site ok, : [place] in place, urine looks clear Assessment & Plan Remarks IMPRESSION Chronic respiratory failure, has new trach, has HCAP - C/S with MDR PSAE INtermittent problem with desaturation MDR PSAE PNA, S/P Rx New HCAP, C/S Providencia - increasing consolidation R base, ?plugging UTI, with Proteus Fevers, better Leukocytosis, due to PNA, and partly due to steroids - better Has an area of cellulitis in his RUE and R chest - resolved Morbid obesity Hx PE RECOMMENDATION Continue Rocephin - plan to give till 05/25 Follow new C/S Monitor temps Follow CBC Monitor progress D/W Dana Rollins MD May 17, 2016 10:32
[2016-05-17] MEDS: NYSTATIN 100,000 U/GM PWD 15 GM BTL TOPICAL SCH ×2 (11:20→21:00)
[2016-05-17] MEDS: MICONAZOLE NITRATE 2% CREAM 15 GM TOP SCH ×2 (11:20→21:00)
--- NOTE | 2016-05-17 11:37 | HHI.FPPN ---
Subjective Remarks No acute events. Currently undergoing CPAP trial. Breathing status starting to improve. Still having diarrhea and also some vomiting. Hypokalemia is getting worse. Insulin was held overnight and potassium being replaced, and Lasix being held. No other issues this morning. (Joshua Morgan MD R2) Objective Vitals Vital Signs Date Time Temp Pulse Resp B/P Pulse Ox O2 Delivery O2 Flow Rate FiO2 05/17/16 10:00 104 05/17/16 09:38 16 05/17/16 09:00 50 05/17/16 08:16 92 Ventilator 40 05/17/16 08:16 91 40 05/17/16 08:16 40 05/17/16 08:00 98.5 107 19 127/69 96 05/17/16 08:00 107 05/17/16 08:00 50 05/17/16 06:00 108 05/17/16 04:08 95 40 05/17/16 04:00 100 05/17/16 04:00 98.2 100 18 112/66 96 05/17/16 04:00 50 05/17/16 02:00 100 05/17/16 01:27 95 40 05/17/16 00:00 98.6 101 18 115/67 96 05/17/16 00:00 101 05/17/16 00:00 50 05/16/16 22:17 100 40 05/16/16 22:00 100 05/16/16 20:00 98.2 102 18 120/63 99 05/16/16 20:00 102 05/16/16 20:00 50 05/16/16 19:16 96 50 05/16/16 18:00 110 05/16/16 16:00 50 05/16/16 16:00 98.4 114 22 152/73 89 05/16/16 16:00 114 05/16/16 15:30 92 50 05/16/16 14:00 101 05/16/16 12:00 100 05/16/16 12:00 50 05/16/16 12:00 98.4 100 15 139/74 95 05/16/16 11:35 95 50 I/O 05/16/16 05/16/16 05/16/16 05/17/16 05/17/16 05/17/16 06:59 14:59 22:59 06:59 14:59 22:59 Intake Total 434 ml 865 ml 916 ml 887 ml Output Total 2550 ml 900 ml 500 ml 1200 ml Balance -2116 ml -35 ml 416 ml -313 ml IV Total 374 ml 775 ml 850 ml 855 ml Tube Feeding 30 ml 66 ml 32 ml Other 60 ml 60 ml Output Urine Total 2550 ml 900 ml 500 ml 1200 ml # Bowel Movements 1 (Joshua Morgan MD R2) Result Diagram: 05/17/1634405/17/16344 Objective Remarks GENERAL: Morbidly obese. On mechanical ventilation, NG tube in place, awake and alert. SKIN: Warm and dry. No rashes or lesions. Ecchymosis on abdomen superior to umbilicus in area of SQ anticoagulant injections. HEAD: Normocephalic. Atraumatic. ENT: No nasal drainage. Tracheotomy site is clean and dry without drainage. NECK: No JVD. CARDIOVASCULAR: Distant heart sounds. Regular rate and rhythm without murmurs, gallops, or rubs. Peripheral pulses 2+. RESPIRATORY: On mechanical ventilation. CPAP with PEEP 10. Clear to auscultation bilaterally. No rales or rhonchi. GASTROINTESTINAL: Abdomen soft, obese, distant bowel sounds. MUSCULOSKELETAL: Lower extremity edema. Decubitus ulcer prophylaxis boots in place. NEURO: Awake, alert. Answers questions with head nods. Attempts to talk but difficult with trach. (Joshua Morgan MD R2) Date of Insertion: Apr 24, 2016 (Joshua Morgan MD R2) Date of Insertion: Apr 26, 2016 Line: PICC Side: Right (Joshua Morgan MD R2) A/P Assessment and Plan Assessment and Plan Acute hypercapnic/hypoxemic respiratory failure Healthcare associated pneumonia with MDR Pseudomonas UTI with proteus mirabilis Sepsis CHF exacerbation CO2 narcosis Chronic Respiratory Failure s/p Tracheostomy 4 years ago (Shiley 6.0 Proximal XLT) COPD/obesity hypoventilation syndrome Morbid Obesity BMI 66 History of pulmonary embolism 4 years ago Chronic atrial fibrillation Anxiety CHF (Echo 2013 EF 40-45%; ECHO 08/2015 showing grossly normal systolic function) Hypertension Hypothyroidism PLAN NEURO: answering questions appropriately, awake and alert Anxiety -Wean sedatives as tolerated while maintaining synchrony with vent - Started Sertraline for depression/anxiety, reports better moods RESP: CPAP trial with PEEP 10 Acute hypercapnic/hypoxemic respiratory failure Healthcare associated pneumonia Chronic Respiratory Failure s/p Tracheostomy 4 years ago COPD/obesity hypoventilation syndrome History of pulmonary embolism 4 years ago Pulmonary edema - Bronchoscopy done, cultures pending, no growth to date -Continue mechanical ventilation, currently CPAP trial. Wean to keep SaO2 >88% -Healthcare associated pneumonia (MDRO) is being treated with IV Rocephin ( - ). IV Diflucan for dionne UTI. ID following -Sputum culture revealed Pseudomonas MDR, providencia stuartii -DuoNeb every 4 hours scheduled -Pulmicort BID (home med) -Continue prednisone 50 mg with taper -Therapeutic Lovenox 150 mg every 12 hours -Chest x-ray bibasilar infiltrates unchanged CV: CHF exacerbation Pulmonary edema Chronic atrial fibrillation -Discontinue Lasix due to hypokalemia, monitor I's and O's and for fluid overload. -A. fib rate controlled -Therapeutic Lovenox 150 mg twice a day GI: Super morbid obesity with BMI of 68 -Tube feeds Glucerna, having vomiting this morning. Getting Reglan. -Pepcid for GI prophylaxis -SSI per ICU protocol - Significant diarrhea, get c.diff, hold free water due to hyponatremia/ hypochloremia. : -Monitor potassium, phosphorus and magnesium. -Potassium decreasing, through diarrhea/insulin, replace. - Hold free water - Hold Lasix -Monitor renal function -[place] catheter -Urine culture revealed Dionne-, Fluconazole -Strict I&O ID: Healthcare associated pneumonia Sepsis MDRO Possible cellulitis right arm and fast Leukocytosis -IV rocephin (05/07 - ) for 14 days to cover Proteus and Providencia, colistin nebs discontinued, Zyvox for cellulitis discontinued, Diflucan discontinued -Blood urine and blood culture NGTD. -Wound culture Pseudomonas MDR -Sputum culture-Pseudomonas MDR -ID consulted, follow-up recommendations -Blood cx from 05/03 negative. Urine culture positive for proteus mirabilis. HEME: History of PE on chronic anticoagulation with Xarelto Leukocytosis -Monitor CBC, CMP, coags -Xarelto for PE 4 yrs ago. -Hold Xarelto. -Changed to Lovenox 150 mg twice a day ENDO: Hypothyroidism -Electrolyte replacement protocol -Continue levothyroxine 25 mcgs IV daily - Prednisone 50 mg taper. - Insulin held overnight for low potassium restart sliding scale. PROPH: -Bilateral lower extremity SCDs. Lovenox DVT prophylaxis. IV Protonix for GI prophylaxis LINES: - PICC line Discharge Planning Patient will need to be weaned from mechanical ventilation with stable clinical status. Hopeful for patient to be able to return to long-term rehab facility. If he qualifies can consider [facility] depending on how he does. ( Joshua Morgan MD R2) Attending Attestation This 31 male is admitted with a chief complaint of Acute Respiratory Failure. Patient has been examined and the case reviewed with the resident physicians. agree with plan (Tanya Cochran MD) Joshua Morgan MD R2 May 17, 2016 11:37 Tanya Cochran MD May 19, 2016 12:11
[2016-05-17] MEDS: CHLORHEXIDINE 0.12% (ORAL KIT) 15 ML CUP MT SCH ×2 (11:52→20:00)
[2016-05-17 15:56] LABS: MAGNESIUM 1.6 MG/DL (1.5-2.5)
[2016-05-17] MEDS: INSULIN ASPART SUPPLEMENTAL SCALE SQ SCH ×2 (16:00→21:00)
--- NOTE | 2016-05-17 16:53 | EKG ---
Date Performed: 05/17/2016 Time Performed: 07:45:46 PTAGE: 31 years EKG: SINUS TACHYCARDIA Probable left ventricular hypertrophy. Diffuse nonspecific ST-T wave gonzalez ge. When compared to previous tracing, heart rate is faster and the ST changesare much more prominent . Clinical correlation is recommended. ABNORMAL ECG PREVIOUS TRACING : 04/24/2016 19.08 DOCTOR: Hubert Williamson Interpretating Date/Time 05/17/2016 16:52:00
[2016-05-17] MEDS: POTASSIUM CHLOR 40 MEQ PREMIX 100 ML IV PRN (17:35)
[2016-05-18] VITALS (19 sets, daily range): BP systolic 122–135; BP diastolic 63–75; PULSE 100–109; RESP 18–22; TEMP 97.9–98.8; O2SAT 91–97
[2016-05-18] MEDS: fentaNYL DRIP 250 ML IV SCH (02:44)
[2016-05-18] MEDS: ENOXAPARIN SODIUM 150 MG/ML SYRINGE SQ SCH ×2 (02:45→16:00)
[2016-05-18] MEDS: LEVOTHYROXINE SODIUM 50 MCG TAB PO SCH (05:00)
[2016-05-18] MEDS: INSULIN ASPART SUPPLEMENTAL SCALE SQ SCH ×4 (05:00→20:52)
[2016-05-18] MEDS: ONDANSETRON HCL 4 MG/2 ML VIAL IV PUSH PRN (05:00)
[2016-05-18 05:04] LABS: C. DIFF EPI 027 PRESUMPTIVE NEGATIVE (NEGATIVE); C. DIFF TOXIN PCR NEGATIVE (NEGATIVE)
[2016-05-18] MEDS: RESP: BUDESONIDE 0.5 MG/2 ML NEB NEB SCH ×2 (07:27→20:22)
[2016-05-18 07:35] LABS: AUTOMATED NEUTROPHIL # 10.2 TH/MM3 (1.8-7.7); BASOPHIL # 0.1 TH/MM3 (0-0.2); BASOPHIL % 0.4 % (0.0-2.0); EOSINOPHIL # 0.2 TH/MM3 (0-0.4); EOSINOPHIL % 1.3 % (0.0-4.0); LYMPH % 14.9 % (9.0-44.0); LYMPHOCYTE # 1.9 TH/MM3 (1.0-4.8); MEAN CELL VOLUME 77.6 FL (80.0-100.0); MEAN CORPUSCULAR HEMOGLOBIN 24.3 PG (27.0-34.0); MEAN CORPUSCULAR HGB CONC 31.3 % (32.0-36.0); MONO % 4.6 % (0.0-8.0); NEUT % 78.8 % (16.0-70.0); PLATELET COUNT 165 TH/MM3 (150-450); RED BLOOD COUNT 3.09 MIL/MM3 (4.50-5.90); RED CELL DISTRIBUTION WIDTH 24.9 % (11.6-17.2); WHITE BLOOD COUNT 12.9 TH/MM3 (4.0-11.0)
[2016-05-18 07:39] LABS: HEMO FLAGS AUTO DIFF
--- NOTE | 2016-05-18 07:59 | HHI.IDPN ---
Subjective Subjective Remarks Notes reviewed D/W RN No vomiting but has received zofran TF only at 10 ml/hr No fever BP ok Remains vent dependent Antibiotics Rocephin Lines PICC RUE Past Medical History Chronic Respiratory Failure s/p Tracheostomy 4 years ago Morbid Obesity w/ BMI 67.6 Atrial fibrillation Pulmonary embolism 4 years ago Anxiety CHF (Echo 06/07/2014 w/ EF 40-45%; ECHO 08/2015 showing a grossly normal systolic function) HTN Hypothyroidism Past Surgical History Tracheostomy Tonsillectomy Allergies: Coded Allergies: *MDRO Multi-Drug Resistant Organism (Verified Adverse Reaction, Unknown, 05/08/16) XDR Pseudomonas aeruginosa (sputum) - 09/18/15; (sputum & wound) - 04/27/16 Objective . Vital Signs Date Time Temp Pulse Resp B/P Pulse Ox O2 Delivery O2 Flow Rate FiO2 05/18/16 07:27 92 40 05/18/16 06:00 100 05/18/16 04:05 97 40 05/18/16 04:00 98.0 101 19 135/75 94 05/18/16 04:00 101 05/18/16 04:00 50 05/18/16 02:00 105 05/18/16 01:10 97 40 05/18/16 00:00 50 05/18/16 00:00 98.1 104 18 122/66 96 05/18/16 00:00 104 05/17/16 23:20 92 40 05/17/16 22:00 108 05/17/16 20:00 50 05/17/16 20:00 105 05/17/16 20:00 98.6 105 18 127/68 96 05/17/16 19:45 92 40 05/17/16 18:00 108 05/17/16 17:15 95 40 05/17/16 16:00 99.6 108 18 134/74 95 05/17/16 16:00 108 05/17/16 16:00 50 05/17/16 14:00 105 05/17/16 12:12 96 50 05/17/16 12:00 106 05/17/16 12:00 98.7 105 18 137/75 94 05/17/16 12:00 50 05/17/16 10:00 104 05/17/16 09:38 16 05/17/16 09:00 50 05/17/16 08:16 92 Ventilator 40 05/17/16 08:16 91 40 05/17/16 08:16 40 05/17/16 08:00 98.5 107 19 127/69 96 05/17/16 08:00 107 05/17/16 08:00 50 05/17/16 05/17/16 05/18/16 15:00 23:00 07:00 Intake Total 1960 ml 410 ml 340 ml Output Total 700 ml 500 ml 500 ml Balance 1260 ml -90 ml -160 ml IV Total 1810 ml 388 ml 310 ml Tube Feeding 22 ml 30 ml Other 150 ml Output Urine Total 700 ml 500 ml 500 ml # Bowel Movements 1 . Laboratory Tests Test 05/17/16 05/18/16 03:45 06:00 White Blood Count 15.4 TH/MM3 12.9 TH/MM3 Red Blood Count 3.45 MIL/MM3 3.09 MIL/MM3 Hemoglobin 8.3 GM/DL 7.5 GM/DL Hematocrit 26.4 % 24.0 % Mean Corpuscular Volume 76.4 FL 77.6 FL Mean Corpuscular Hemoglobin 23.9 PG 24.3 PG Mean Corpuscular Hemoglobin 31.3 % 31.3 % Concent Red Cell Distribution Width 20.9 % 24.9 % Platelet Count 173 TH/MM3 165 TH/MM3 Mean Platelet Volume 9.1 FL 8.9 FL Neutrophils (%) (Auto) 79.4 % 78.8 % Lymphocytes (%) (Auto) 14.0 % 14.9 % Monocytes (%) (Auto) 4.7 % 4.6 % Eosinophils (%) (Auto) 1.7 % 1.3 % Basophils (%) (Auto) 0.2 % 0.4 % Neutrophils # (Auto) 12.2 TH/MM3 10.2 TH/MM3 Lymphocytes # (Auto) 2.2 TH/MM3 1.9 TH/MM3 Monocytes # (Auto) 0.7 TH/MM3 0.6 TH/MM3 Eosinophils # (Auto) 0.3 TH/MM3 0.2 TH/MM3 Basophils # (Auto) 0.0 TH/MM3 0.1 TH/MM3 CBC Comment AUTO DIFF AUTO DIFF Differential Total Cells 100 Counted Neutrophils % (Manual) 71 % Band Neutrophils % 5 % Lymphocytes % 15 % Monocytes % 3 % Neutrophils # (Manual) 12.6 TH/MM3 Metamyelocytes 2 % Myelocytes 4 % Nucleated Red Blood Cells 3 /100 WBC Differential Comment FINAL DIFF MANUAL Platelet Estimate NORMAL Platelet Morphology Comment NORMAL Polychromasia 3.5 % Basophilic Stippling MOD Laboratory Tests Test 05/16/16 05/17/16 05/17/16 14:08 03:45 14:30 Potassium Level 2.7 MEQ/L 2.3 MEQ/L 3.0 MEQ/L Sodium Level 135 MEQ/L Chloride Level 89 MEQ/L Carbon Dioxide Level 37.2 MEQ/L Anion Gap 9 MEQ/L Blood Urea Nitrogen 14 MG/DL Creatinine 0.30 MG/DL Estimat Glomerular Filtration 347 ML/MIN Rate Random Glucose 95 MG/DL Calcium Level 8.1 MG/DL Phosphorus Level 3.4 MG/DL Magnesium Level 1.2 MG/DL 1.6 MG/DL Total Bilirubin 0.9 MG/DL Aspartate Amino Transf 61 U/L (AST/SGOT) Alanine Aminotransferase 72 U/L (ALT/SGPT) Alkaline Phosphatase 53 U/L Total Protein 5.2 GM/DL Albumin 2.4 GM/DL Microbiology Date/Time Procedure Status Source Growth 05/15/16 20:20 Gram Stain - Final Complete Sputum Endotracheal 05/15/16 20:20 Sputum Culture - Final Complete Sputum Endotracheal NO GROWTH IN 48 HOURS. Imaging Chest X-Ray 05/16/16599 Signed Impressions: Service Date/Time: April 03:21 - CONCLUSION: 1. Slight improvement in bilateral airspace disease over the last day. Horacio Gupta MD Chest X-Ray 05/15/16599 Signed Impressions: Service Date/Time: Sunday, May 15, 2016 04:31 - CONCLUSION: 1. Slight increase in airspace disease since May 13. Differential diagnosis includes pulmonary edema. Support apparatus unchanged. Horacio Gupta MD Chest X-Ray 05/13/16599 Signed Impressions: Service Date/Time: Friday, May 13, 2016 03:26 - CONCLUSION: 1. Stable exam compared with May 12 with bilateral mostly basilar airspace disease. Horacio Gupta MD Chest X-Ray 05/10/16599 Signed Impressions: Service Date/Time: Tuesday, May 10, 2016 02:45 - CONCLUSION: Worsening right lower lobe infiltrate. Jeremiah Walton Jr., MD Chest X-Ray 05/09/16599 Signed Impressions: Service Date/Time: April 02:52 - CONCLUSION: No significant change has occurred. Bill Zavala MD Chest X-Ray 05/08/16 0600 Signed Impressions: Service Date/Time: Sunday, May 08, 2016 04:01 - CONCLUSION: No significant change has occurred. Bill Zavala MD Chest X-Ray 05/05/16 0600 Signed Impressions: Service Date/Time: Thursday, May 05, 2016 01:56 - CONCLUSION: Improved aeration bilaterally particularly in the left upper lobe. Tube and catheter are stable. Amador Brock MD Chest X-Ray 05/03/16 0000 Signed Impressions: Service Date/Time: Tuesday, May 03, 2016 06:40 - CONCLUSION: Increasing bilateral diffuse pulmonary infiltrates compared to the prior study. Lázaro Frankel MD Upper Extremity Ultrasound 05/02/16 0000 Signed Impressions: Service Date/Time: April 20:51 - CONCLUSION: No DVT. Garcia Lujan MD Abdomen X-Ray 04/29/16 0000 Signed Impressions: Service Date/Time: Friday, April 29, 2016 07:12 - CONCLUSION: Suspect Dobbhoff tube in the distal stomach. Garcia Lujan MD Physical Exam GENERAL: Awake and alert, on the vent, comfortable SKIN: Warm and moist. No generalized rash. HEENT: [place] conjunctivae. No scleral icterus. Nose without purulent drainage. Moist mucosa. NECK: Short and obese, has trach, site ok. Supple, no meningeal signs. CARDIOVASCULAR: Regular rate and rhythm. Distant heart sounds. RESPIRATORY: Decreased BS bilaterally. GASTROINTESTINAL: Abdomen soft, morbidly obese, not tender, not distended. MUSCULOSKELETAL: Extremities without clubbing, cyanosis. Has mild pitting edema. NEUROLOGICAL: Awake and following LINE: PICC in [facility], site ok, : [place] in place, urine looks clear Assessment & Plan Remarks IMPRESSION Chronic respiratory failure, has new trach, has HCAP - C/S with MDR PSAE Intermittent problem with desaturation MDR PSAE PNA, S/P Rx New HCAP, C/S Providencia - increasing consolidation R base, ?plugging UTI, with Proteus Fevers, better Leukocytosis, due to PNA, and partly due to steroids - better Has an area of cellulitis in his RUE and R chest - resolved Morbid obesity Hx PE Intermittent vomitin, not tolerating TF, ileus? RECOMMENDATION Continue Rocephin - plan to give till 05/25 Monitor temps Monitor progress D/W Dana Rollins MD May 18, 2016 07:59
[2016-05-18] MEDS: CHLORHEXIDINE 0.12% (ORAL KIT) 15 ML CUP MT SCH ×2 (08:00→20:00)
[2016-05-18] MEDS: cefTRIAXone INJ 2,000 MG in SODIUM CHLORIDE 0.9% INJ 100 ML IV SCH (08:00)
[2016-05-18 08:03] LABS: MAGNESIUM 1.5 MG/DL (1.5-2.5)
[2016-05-18 08:05] LABS: POTASSIUM 2.5 MEQ/L (3.5-5.1)
--- NOTE | 2016-05-18 08:15 | HHI.CCPN ---
Subjective Remarks/Hospital Course 31 year old morbidly obese (BMI 68) male with chronic respiratory failure s/p tracheostomy 4 years ago, atrial fibrillation and pulmonary embolism on Xarelto , COPD, CHF and h/o HTN. He presented from [facility] with low oxygen saturation apparently his oxygen saturation was 82% on RA. He was placed back on 6L of oxygen via his trach mask and given a breathing treatment, initially improved however he started drifting back to low 80s again. Chest x-ray showed bibasilar infiltrates and pulmonary edema. Patient was admitted to the [facility] and was started on IV steroids IV vancomycin and Zosyn and Levaquin for healthcare associated pneumonia. After starting ACV, patient was more awake but there was a significant amount of air leak around his tracheostomy. Patient has had a Shiley 6.0 Proximal XLT, but the pilot boat captain balloon had been cut off. 05/02 the patient became acutely hypoxemic with a large cuff leak, underwent emergency trach exchange at bedside by Dr. Macias. FiO2 65% PEEP 14 05/13 Patient is on ventilator via trach, on Fentanyl infusion however he is awake and alert. On PRVC with FIO2 40%. Afebrile. 05/14 No acute events overnight. Tmax 99.8. Patient is awake, alert on ventilator via trach still requiring increase O2. On PRVC with PEEP: 10 and FIO2 70%. 05/15 patient acutely desaturated after he was found. Saturation went down to 70% on 100% oxygen. Bag and mask ventilation carried out, with eventual improvement on oxygen saturation to 85%. Patient was placed on PC/AC mode of ventilation, with PEEP of 15 and instructed to pressure of 30. Eventually oxygen saturation improved to 95%. Lasix him today as the chest x-ray from today shows increasing bilateral infiltrate and pulmonary edema. Also sputum culture will be sent 05/16 Patient is on Fentanyl and Diprivan infusion but awake and alert. Afebrile. On PC/AC with PEEP:15, IP: 22, IT:1.3 and FIO2 50% 05/17 Patient is off Diprivan and remains on Fentanyl infusion for sedation. On PC/AC with PEEP: down 10 and FIO2 40%. Afebrile. 05/18 Patient remains on ventilator via trach on PC/AC with PEEP:12, FIO2 40%, IP:22, IT:1.0. On Fentanyl infusion Objective Vital Signs Date Time Temp Pulse Resp B/P Pulse Ox O2 Delivery O2 Flow Rate FiO2 05/18/16 07:27 92 40 05/18/16 06:00 100 05/18/16 04:00 98.0 19 135/75 05/17/16 08:16 Ventilator Intake and Output 05/17/16 05/17/16 05/18/16 08:00 16:00 00:00 Intake Total 887 ml 1960 ml 410 ml Output Total 1200 ml 700 ml 500 ml Balance -313 ml 1260 ml -90 ml Result Diagram: 05/18/16 0605/18/16 06 Other Results Laboratory Tests Test 05/17/16 05/18/16 05/18/16 14:30 03:00 06:00 Potassium Level 3.0 MEQ/L 2.5 MEQ/L Magnesium Level 1.6 MG/DL 1.5 MG/DL Stool C. difficile Toxin (PCR) NEGATIVE Stl C. difficile Toxin PRESUMPTIVE Epiderm 027 NEGATIVE White Blood Count 12.9 TH/MM3 Red Blood Count 3.09 MIL/MM3 Hemoglobin 7.5 GM/DL Hematocrit 24.0 % Mean Corpuscular Volume 77.6 FL Mean Corpuscular Hemoglobin 24.3 PG Mean Corpuscular Hemoglobin 31.3 % Concent Red Cell Distribution Width 24.9 % Platelet Count 165 TH/MM3 Mean Platelet Volume 8.9 FL Neutrophils (%) (Auto) 78.8 % Lymphocytes (%) (Auto) 14.9 % Monocytes (%) (Auto) 4.6 % Eosinophils (%) (Auto) 1.3 % Basophils (%) (Auto) 0.4 % Neutrophils # (Auto) 10.2 TH/MM3 Lymphocytes # (Auto) 1.9 TH/MM3 Monocytes # (Auto) 0.6 TH/MM3 Eosinophils # (Auto) 0.2 TH/MM3 Basophils # (Auto) 0.1 TH/MM3 CBC Comment AUTO DIFF Sodium Level 135 MEQ/L Chloride Level 88 MEQ/L Carbon Dioxide Level 37.0 MEQ/L Anion Gap 10 MEQ/L Blood Urea Nitrogen 13 MG/DL Creatinine 0.27 MG/DL Estimat Glomerular Filtration 392 ML/MIN Rate Random Glucose 96 MG/DL Calcium Level 8.5 MG/DL Phosphorus Level 1.9 MG/DL Imaging Last Impressions Chest X-Ray 05/16/16 0600 Signed Impressions: Service Date/Time: April 03:21 - CONCLUSION: 1. Slight improvement in bilateral airspace disease over the last day. Horacio Gupta MD Upper Extremity Ultrasound 05/02/16 0000 Signed Impressions: Service Date/Time: , May 02, 2016 20:51 - CONCLUSION: No DVT. Garcia Lujan MD Abdomen X-Ray 04/29/16 0000 Signed Impressions: Service Date/Time: Friday, April 29, 2016 07:12 - CONCLUSION: Suspect Dobbhoff tube in the distal stomach. Garcia Lujan MD Objective Remarks GENERAL: Patient is 31yo on ventilator via trach, awake and follows commands. SKIN: Warm and dry. HEAD: Normocephalic. EYES: No scleral icterus. No injection or drainage. NECK: Supple, trachea midline. Shiley 6.0 Proximal XLT, (new trach placed ) CARDIOVASCULAR: Regular rate and rhythm without murmurs, gallops, or rubs. RESPIRATORY: Breath sounds equal bilaterally. No accessory muscle use. GASTROINTESTINAL: Abdomen soft, non-tender, nondistended. MUSCULOSKELETAL: No cyanosis, or edema. BACK: Nontender without obvious deformity. No CVA tenderness. Neuro: Awake and alert Procedures Shiley 6.0 XLT tracheostomy exchange under visual direction by general surgery and with GlideScope, by anesthesiologist. Date of Insertion: Apr 24, 2016 Date of Insertion: Apr 26, 2016 Line: PICC Side: Right A/P Assessment and Plan ASSESSMENT Acute hypercapnic and hypoxemic respiratory failure Acute worsening of hypoxia due to lung de-recruitment today 05/15/60 Healthcare associated pneumonia MDR Pseudomonas Sepsis/persistent fever CHF exacerbation CO2 narcosis Tracheostomy pilot boat captain balloon damage -status post exchange with new Shiley 6.0 Proximal XLT 05/02/16 Chronic Respiratory Failure s/p Tracheostomy 4 years ago (Shiley 6.0 Proximal XLT) COPD/obesity hypoventilation syndrome Morbid Obesity BMI 67 History of pulmonary embolism 4 years ago Chronic atrial fibrillation Anxiety CHF (Echo 2013 EF 40-45%; ECHO 08/2015 showing a grossly normal systolic function) Hypertension Hypothyroidism PLAN NEURO: CO2 narcosis - resolved Anxiety - On Fentanyl infusion for sedation, ventilator synchrony, daily sedation vacation. RESP: Acute hypercapnic and hypoxemic respiratory failure Acute lung derecruitment today 05/15 Healthcare associated pneumonia Tracheostomy pilot boat captain balloon damage (Shiley 6.0 Proximal XLT) s/p new trach placement 05/02 Chronic Respiratory Failure s/p Tracheostomy 4 years ago COPD/obesity hypoventilation syndrome History of pulmonary embolism 4 years ago Leukocytosis Pulmonary edema - Continue with vent support PC/AC Insp pres 22, iT 1.0 sec and PEEP 12, FiO2 40 %. Decrease PEEP 10 - s/p Bronchoscopy 05/11 -follow up on BAL results-negative - DuoNeb every 4 hours scheduled - Pulmicort BID (home med) - Continue prednisone - Therapeutic Lovenox 150 mg every 12 hours CV: CHF exacerbation Pulmonary edema Chronic atrial fibrillation - Monitor HR and BP keep MAP>65mmHg - on Cardizem 60mg QID - Therapeutic Lovenox 150 mg twice a day GI: Super morbid obesity with BMI of 68 Restart- Tube feeds Glucerna 1.5 with goal rate 50ml/hr - On Pepcid 20mg BID : Hypokalemia - Monitor renal function , I/O. electrolytes replacement per protocol. - Will need K, phos replacement today. ID: Healthcare associated pneumonia Sepsis MDRO Possible cellulitis right arm Leukocytosis...trending down - Continue abx per ID ( Rocephin) till 05/25 -Urine cx: Proteus Mirabilis 05/05 -Sputum cx: Providencia 05/05 -Wound cx: 05/13 Proteus, Pseudomonas, Group D Enterococcus - Wound culture Pseudomonas MDR 04/27 - Sputum culture-Pseudomonas MDR- 04/27 - Bronchoscopy and re-culture 05/10 follow up on BAL results-neg to date - Follow up on sputum cx from 05/15- NGTD HEME: History of PE on chronic anticoagulation with Xarelto -Monitor CBC, CMP, coags -Xarelto for PE 4 yrs ago. -Xarelto.held, On Lovenox 150 mg twice a day ENDO: Hypothyroidism -On SSI ( Medium scale) -Continue levothyroxine 25 mcgs IV daily PROPH: -Bilateral lower extremity SCDs. Lovenox DVT prophylaxis. IV Protonix for GI prophylaxis LINES: - PICC line RUE- No DVT on US Critical Care: The total critical care time was 35 minutes. Time to perform other separately billable procedures was not included in the critical care time. Flory Martino MD May 18, 2016 08:15
[2016-05-18] MEDS: RESP: ALBUTEROL 2.5 MG/IPRATROPIUM 0.5 MG NEB (SCH) NEB ×3 (08:51→20:22)
[2016-05-18] MEDS: FENOFIBRATE 48 MG TAB PO SCH (09:00)
[2016-05-18] MEDS: predniSONE 5 MG/5 ML CUP PO SCH (09:00)
[2016-05-18] MEDS: FAMOTIDINE 20 MG TAB PO SCH ×2 (09:00→20:51)
[2016-05-18] MEDS: NYSTATIN 100,000 U/GM PWD 15 GM BTL TOPICAL SCH ×2 (09:00→20:52)
[2016-05-18] MEDS: ATORVASTATIN 10 MG TAB PO SCH (09:00)
[2016-05-18] MEDS: MICONAZOLE NITRATE 2% CREAM 15 GM TOP SCH ×2 (09:00→20:52)
[2016-05-18] MEDS: METOCLOPRAMIDE HCL 10 MG/2 ML VIAL IV PUSH SCH ×2 (09:00→20:52)
[2016-05-18] MEDS: MONTELUKAST SODIUM 10 MG TAB PO SCH (09:00)
[2016-05-18] MEDS: SODIUM CHLORIDE 0.9% FLUSH 5 ML FLUSH FLUSH SCH ×2 (09:00→20:52)
[2016-05-18] MEDS: DILTIAZEM HCL 60 MG TAB PO SCH ×4 (09:00→20:51)
[2016-05-18] MEDS: ALLOPURINOL 300 MG TAB PO SCH (09:00)
[2016-05-18] MEDS: SERTRALINE HCL 50 MG TAB PO SCH (09:00)
--- NOTE | 2016-05-18 09:07 | HHI.FPPN ---
Subjective Remarks No acute events overnight, AF, HR running slightly tachycardic (100-105). No CP/ SOB. Received Zofran prophylactically overnight which prevented vomiting, still having some nausea. (Obed Glaser MD R1) Objective Vitals Vital Signs Date Time Temp Pulse Resp B/P Pulse Ox O2 Delivery O2 Flow Rate FiO2 05/18/16 07:27 92 40 05/18/16 06:00 100 05/18/16 04:05 97 40 05/18/16 04:00 98.0 101 19 135/75 94 05/18/16 04:00 101 05/18/16 04:00 50 05/18/16 02:00 105 05/18/16 01:10 97 40 05/18/16 00:00 50 05/18/16 00:00 98.1 104 18 122/66 96 05/18/16 00:00 104 05/17/16 23:20 92 40 05/17/16 22:00 108 05/17/16 20:00 50 05/17/16 20:00 105 05/17/16 20:00 98.6 105 18 127/68 96 05/17/16 19:45 92 40 05/17/16 18:00 108 05/17/16 17:15 95 40 05/17/16 16:00 99.6 108 18 134/74 95 05/17/16 16:00 108 05/17/16 16:00 50 05/17/16 14:00 105 05/17/16 12:12 96 50 05/17/16 12:00 106 05/17/16 12:00 98.7 105 18 137/75 94 05/17/16 12:00 50 05/17/16 10:00 104 05/17/16 09:38 16 I/O 05/17/16 05/17/16 05/17/16 05/18/16 05/18/16 05/18/16 06:59 14:59 22:59 06:59 14:59 22:59 Intake Total 887 ml 1960 ml 410 ml 340 ml Output Total 1200 ml 700 ml 500 ml 500 ml Balance -313 ml 1260 ml -90 ml -160 ml IV Total 855 ml 1810 ml 388 ml 310 ml Tube Feeding 32 ml 22 ml 30 ml Other 150 ml Output Urine Total 1200 ml 700 ml 500 ml 500 ml # Bowel Movements 1 (Obed Glaser MD R1) Result Diagram: 05/18/16 0600 05/18/16 06 Objective Remarks GENERAL: Morbidly obese. On mechanical ventilation, NG tube in place, awake and alert. SKIN: Warm and dry. No rashes or lesions. Ecchymosis on abdomen inferior to umbilicus in area of SQ anticoagulant injections. Minimal dried vomitus around mouth. HEAD: Normocephalic. Atraumatic. ENT: No nasal drainage. Tracheotomy site is clean and dry without drainage. NECK: No JVD. CARDIOVASCULAR: Distant heart sounds. Tachycardic with regular rhythm; no murmurs, gallops, or rubs. RESPIRATORY: On mechanical ventilation. CPAP with PEEP 12. Clear to auscultation bilaterally. No crackles or wheezes. GASTROINTESTINAL: Abdomen soft, obese, distant bowel sounds. MUSCULOSKELETAL: Lower extremity edema. Decubitus ulcer prophylaxis boots in place. NEURO: Awake, alert. Answers questions with head nods. Attempts to talk but difficult with trach. (Obed Glaser MD R1) Date of Insertion: Apr 24, 2016 (Obed Glaser MD R1) Date of Insertion: Apr 26, 2016 Line: PICC Side: Right (Obed Glaser MD R1) A/P Assessment and Plan Assessment and Plan Acute hypercapnic/hypoxemic respiratory failure Healthcare associated pneumonia with MDR Pseudomonas UTI with proteus mirabilis Sepsis CHF exacerbation CO2 narcosis Chronic Respiratory Failure s/p Tracheostomy 4 years ago (Shiley 6.0 Proximal XLT) COPD/obesity hypoventilation syndrome Morbid Obesity BMI 66 History of pulmonary embolism 4 years ago Chronic atrial fibrillation Anxiety CHF (Echo 2013 EF 40-45%; ECHO 08/2015 showing grossly normal systolic function) Hypertension Hypothyroidism PLAN NEURO: answering questions appropriately, awake and alert Anxiety -Wean sedatives as tolerated while maintaining synchrony with vent - Started Sertraline for depression/anxiety, reports better moods RESP: CPAP trial with PEEP 10 Acute hypercapnic/hypoxemic respiratory failure Healthcare associated pneumonia Chronic Respiratory Failure s/p Tracheostomy 4 years ago COPD/obesity hypoventilation syndrome History of pulmonary embolism 4 years ago Pulmonary edema - Bronchoscopy done, cultures pending, no growth to date -Continue mechanical ventilation, currently CPAP trial. Wean to keep SaO2 >88% -Healthcare associated pneumonia (MDRO) is being treated with IV Rocephin ( - ). IV Diflucan for heather UTI. ID following -Sputum culture revealed Pseudomonas MDR, providencia stuartii -DuoNeb every 4 hours scheduled -Pulmicort BID (home med) -Continue prednisone 50 mg with taper -Therapeutic Lovenox 150 mg every 12 hours -Chest x-ray bibasilar infiltrates unchanged CV: CHF exacerbation Pulmonary edema Chronic atrial fibrillation -Discontinue Lasix due to hypokalemia, monitor I's and O's and for fluid overload. -A. fib rate controlled -Therapeutic Lovenox 150 mg twice a day GI: Super morbid obesity with BMI of 68 -Tube feeds Glucerna, having vomiting this morning. Getting Reglan. -Pepcid for GI prophylaxis -SSI per ICU protocol - Significant diarrhea, get c.diff, hold free water due to hyponatremia/ hypochloremia. : -Monitor potassium, phosphorus and magnesium. -Potassium decreasing, through diarrhea/insulin, replace. - Hold free water - Hold Lasix -Monitor renal function -[place] catheter -Urine culture revealed Heather-, Fluconazole -Strict I&O ID: Healthcare associated pneumonia Sepsis MDRO Possible cellulitis right arm and fast Leukocytosis -IV rocephin (05/07 - ) for 14 days to cover Proteus and Providencia, colistin nebs discontinued, Zyvox for cellulitis discontinued, Diflucan discontinued -Blood urine and blood culture NGTD. -Wound culture Pseudomonas MDR -Sputum culture-Pseudomonas MDR -ID consulted, follow-up recommendations -Blood cx from 05/03 negative. Urine culture positive for proteus mirabilis. HEME: History of PE on chronic anticoagulation with Xarelto Leukocytosis -Monitor CBC, CMP, coags -Xarelto for PE 4 yrs ago. -Hold Xarelto. -Changed to Lovenox 150 mg twice a day ENDO: Hypothyroidism -Electrolyte replacement protocol -Continue levothyroxine 25 mcgs IV daily - Prednisone 50 mg taper. - Insulin held overnight for low potassium restart sliding scale. PROPH: -Bilateral lower extremity SCDs. Lovenox DVT prophylaxis. IV Protonix for GI prophylaxis LINES: - PICC line Discharge Planning Patient will need to be weaned from mechanical ventilation with stable clinical status. Hopeful for patient to be able to return to long-term rehab facility. If he qualifies can consider terminal clerk vent facility depending on how he does. ( Obed Glaser MD R1) Attending Attestation This 31 male is admitted with a chief complaint of Acute Respiratory Failure. Patient has been examined and the case reviewed with the resident physicians. agree with plan (Tanya Cochran MD) Problem List: (1) On mechanically assisted ventilation Status: Acute Plan: Critical care actively managing acute hypercapnic and hypoxemic respiratory failure and HCAP at this time. He has obesity hypoventilation and terminal clerk the only solution is to lose 100 lbs or so. He may be able to get gastric banding/bypass at some point though he is definitely too sick right now. Started discussion about this yesterday but will also check with case management to see his past Psychiatric history or whether his mother can influence him to take the steps necessary to save his life. Patient placed on mechanical ventilation on 04/24, FiO2 now 40% with PEEP of 12 S/p urgent/emergent trach exchange 05/02 due to acute hypoxemia and large cuff leak Continue Solumedrol 60 mg IV q6h (2) HCAP (healthcare-associated pneumonia) Status: Acute Plan: Repeat ABG on 04/26 showed improvement with CO2 56 with pH 7.40 05/01 BCXs no growth (final) 05/03 BCx no growth (final) 05/04 BCx no growth (final) CXR 04/29 showing stable bibasilar consolidative infiltrates 04/30 CXR shows bilateral airspace disease greater in the right lower lobe 05/05 CXR showing improved aeration bilaterally 04/27 Sputum culture growing resistant pseudomonas 05/04 repeat sputum culture munoz-sensitive Providencia stuartii 05/05 proteus mirabilis 05/10 no fungal or bacterial growth Antibiotic History Zosyn 4.5gm IV q6h (04/24 - 04/29) Levaquin 750mg IV q24h (04/24-04/30) Zerbaxa 1.5 g IV q8h (04/29 - 05/07) Vancomycin IV (04/24 - 05/06) Ceftriaxone IV (05/07 - present) Linezolid 600 mg PO BID (05/06 - 05/13) Plan - Infectious Disease consulted, appreciate recs * Continue Ceftriaxone 2 g IV Q24H * Colistin nebs * Diflucan q24h - Duonebs q2h (3) Yeast UTI Status: Acute Plan: 05/01 Urine CX growing heather albicans 05/05 repeat UA with large LE, negative nitrite, 182 WBCs; culture grew Proteus Mirabilis Continue Diflucan 400 mg IV q24h (4) Cellulitis of chest wall Status: Resolved Plan: Improved - Complete course of linezolid 600 mg PO BID (05/06-05/13) per ID recs (5) CHF (congestive heart failure) Status: Chronic Plan: Last ECHO 09/18/2015 showing a grossly normal systolic function with no definitive EF as it was difficult to assess, ECHO on 05/2014 with EF of 40-45% with mildly dilated left atrium 04/25 ECHO was limited due to poor image quality, EF could not be adequately estimated. Systolic function appears to be grossly normal. BNP on admission 419, repeat BNP 151. suspect cardiac problems from his hypoventilation. Critical care actively managing diuresis - Lasix drip discontinued - Bumex Discontinued - Completed 3 days of acetazolamide (6) Atrial fibrillation Status: Chronic Plan: Last EKG in sinus rhythm Tachycardic but regular on exam Home dose of Xarelto 20 mg po daily has been held. Currently on Lovenox 150mg SQ Q12H (7) Depression Status: Acute Plan: Likely chronic and due to prolonged illness * Sertraline 25 mg PO daily (8) Tracheostomy present Status: Chronic Plan: S/p urgent/emergent trach exchange 05/02 due to acute hypoxemia and large cuff leak Has been stable since procedure (9) HTN (hypertension) Status: Chronic Plan: BPs stable Hold home BP medications (10) Morbid obesity with BMI of 60.0-69.9, adult Status: Chronic Plan: katieian. obesity hypoventilation syndrome causes his respiratory problems. will try small dose of Zoloft 25 mg and will increase. He is a bit anxious today. Unsure if he has some underlying depression as well. (11) Hypothyroidism Status: Chronic Plan: Synthroid 25 mcg IV daily (12) Nutrition, metabolism, and development symptoms Status: Acute Plan: Fluids: none Electrolytes: Monitor and replete when necessary per protocol Nutrition: NG tube, tube feeds with Glucerna 10ml/hr, his glucerna does not have quite enough K so he needs more K daily plus he has loose stools as he is on tube feeds and probably loses more K that way. will continue to replace DVT PPx: Therapeutic Lovenox 150mg subq q12h Glucose: Insulin medium dose sliding scale to control blood sugar; currently stable around 95-120 (Obed Glaser MD R1) Problem Qualifiers (1) CHF (congestive heart failure): Qualified Code: I50.9 - Acute on chronic congestive heart failure, unspecified congestive heart failure type (2) Atrial fibrillation: Qualified Code: I48.2 - Chronic atrial fibrillation (3) Depression: Qualified Code: F32.9 - Reactive depression (4) HTN (hypertension): Qualified Code: I10 - Essential hypertension (5) Hypothyroidism: Qualified Code: E03.9 - Hypothyroidism, unspecified type Obed Glaser MD R1 May 18, 2016 09:07 Tanya Cochran MD May 19, 2016 12:12
[2016-05-18 10:15] LABS: BANDS 11 % (0-6); CORRECTED NUCLEATED RBC 2 /100 WBC (0-0); MYELOCYTES 2 % (0-0); NEUTROPHIL # MANUAL DIFF 10.8 TH/MM3 (1.8-7.7); POLYCHROMASIA 3.3 % (0.0-1.9); POLYS (SEG NEUTROPHILS) 71 % (16-70); WBC DIFF SAMPLE 100
[2016-05-18 10:16] LABS: PLATELET ESTIMATE SMEAR NORMAL (NORMAL); PLATELET MORPHOLOGY NORMAL (NORMAL); SCAN/DIFF FINAL DIFF MANUAL
[2016-05-18] MEDS ORDERED: cefTRIAXone INJ 2,000 MG in SODIUM CHLORIDE 0.9% INJ 100 ML IV SCH (14:00)
[2016-05-19] VITALS (19 sets, daily range): BP systolic 123–144; BP diastolic 59–72; PULSE 105–121; RESP 18–20; TEMP 98–98.9; O2SAT 91–98
[2016-05-19] MEDS: RESP: ALBUTEROL 2.5 MG/IPRATROPIUM 0.5 MG NEB (SCH) NEB ×4 (04:34→19:28)
[2016-05-19 05:39] LABS: AUTOMATED NEUTROPHIL # 10.8 TH/MM3 (1.8-7.7); BASOPHIL # 0.1 TH/MM3 (0-0.2); BASOPHIL % 0.6 % (0.0-2.0); EOSINOPHIL # 0.2 TH/MM3 (0-0.4); EOSINOPHIL % 1.3 % (0.0-4.0); HEMATOCRIT 23.1 % (39.0-51.0); LYMPH % 10.7 % (9.0-44.0); LYMPHOCYTE # 1.4 TH/MM3 (1.0-4.8); MEAN CELL VOLUME 78.7 FL (80.0-100.0); MEAN CORPUSCULAR HEMOGLOBIN 24.8 PG (27.0-34.0); MEAN CORPUSCULAR HGB CONC 31.5 % (32.0-36.0); MONO % 3.4 % (0.0-8.0); PLATELET COUNT 161 TH/MM3 (150-450); RED BLOOD COUNT 2.94 MIL/MM3 (4.50-5.90); WHITE BLOOD COUNT 12.9 TH/MM3 (4.0-11.0)
[2016-05-19 06:21] LABS: HEMO FLAGS AUTO DIFF
[2016-05-19 06:29] LABS: BICARBONATE 39.2 MEQ/L (21.0-32.0); MAGNESIUM 1.6 MG/DL (1.5-2.5)
[2016-05-19] MEDS: LEVOTHYROXINE SODIUM 50 MCG TAB PO SCH (06:31)
[2016-05-19] MEDS: ENOXAPARIN SODIUM 150 MG/ML SYRINGE SQ SCH ×2 (06:31→16:00)
[2016-05-19] MEDS: fentaNYL DRIP 250 ML IV SCH ×2 (06:31→20:18)
[2016-05-19 06:38] LABS: POTASSIUM 2.8 MEQ/L (3.5-5.1)
[2016-05-19] MEDS: INSULIN ASPART SUPPLEMENTAL SCALE SQ SCH ×4 (07:00→21:00)
[2016-05-19] MEDS: RESP: BUDESONIDE 0.5 MG/2 ML NEB NEB SCH ×2 (07:35→19:28)
[2016-05-19] MEDS: CHLORHEXIDINE 0.12% (ORAL KIT) 15 ML CUP MT SCH ×2 (08:00→20:14)
[2016-05-19] MEDS: cefTRIAXone INJ 2,000 MG in SODIUM CHLORIDE 0.9% INJ 100 ML IV SCH (08:00)
[2016-05-19 08:58] LABS: BANDS 6 % (0-6); BASOPHILS 2 % (0-2); CORRECTED NUCLEATED RBC 2 /100 WBC (0-0); EOSINOPHILS 3 % (0-4); MYELOCYTES 2 % (0-0); NEUTROPHIL # MANUAL DIFF 10.8 TH/MM3 (1.8-7.7); POLYS (SEG NEUTROPHILS) 76 % (16-70); WBC DIFF SAMPLE 100
[2016-05-19 08:59] LABS: PLATELET ESTIMATE SMEAR NORMAL (NORMAL); PLATELET MORPHOLOGY NORMAL (NORMAL); SCAN/DIFF FINAL DIFF MANUAL
[2016-05-19] MEDS: FAMOTIDINE 20 MG TAB PO SCH ×2 (09:00→20:15)
[2016-05-19] MEDS: METOCLOPRAMIDE HCL 10 MG/2 ML VIAL IV PUSH SCH ×2 (09:00→20:15)
[2016-05-19] MEDS: MICONAZOLE NITRATE 2% CREAM 15 GM TOP SCH ×2 (09:00→20:15)
[2016-05-19] MEDS: MONTELUKAST SODIUM 10 MG TAB PO SCH (09:00)
[2016-05-19] MEDS: NYSTATIN 100,000 U/GM PWD 15 GM BTL TOPICAL SCH ×2 (09:00→20:15)
[2016-05-19] MEDS: ATORVASTATIN 10 MG TAB PO SCH (09:00)
[2016-05-19] MEDS: SODIUM CHLORIDE 0.9% FLUSH 5 ML FLUSH FLUSH SCH ×2 (09:00→20:14)
[2016-05-19] MEDS: ALLOPURINOL 300 MG TAB PO SCH (09:00)
[2016-05-19] MEDS: FENOFIBRATE 48 MG TAB PO SCH (09:00)
[2016-05-19] MEDS: predniSONE 5 MG/5 ML CUP PO SCH (09:00)
[2016-05-19] MEDS: SERTRALINE HCL 50 MG TAB PO SCH (09:00)
[2016-05-19] MEDS: DILTIAZEM HCL 60 MG TAB PO SCH ×4 (09:00→20:15)
--- NOTE | 2016-05-19 09:24 | HHI.IDPN ---
Subjective Subjective Remarks Notes reviewed Temps ok No fever BP ok Remains vent dependent Antibiotics Rocephin Lines PICC RUE Past Medical History Chronic Respiratory Failure s/p Tracheostomy 4 years ago Morbid Obesity w/ BMI 67.6 Atrial fibrillation Pulmonary embolism 4 years ago Anxiety CHF (Echo 06/07/2014 w/ EF 40-45%; ECHO 08/2015 showing a grossly normal systolic function) HTN Hypothyroidism Past Surgical History Tracheostomy Tonsillectomy Allergies: Coded Allergies: *MDRO Multi-Drug Resistant Organism (Verified Adverse Reaction, Unknown, 05/08/16) XDR Pseudomonas aeruginosa (sputum) - 09/18/15; (sputum & wound) - 04/27/16 Objective . Vital Signs Date Time Temp Pulse Resp B/P Pulse Ox O2 Delivery O2 Flow Rate FiO2 05/19/16 08:00 113 05/19/16 08:00 45 05/19/16 08:00 98.9 113 18 123/61 96 05/19/16 07:36 95 40 05/19/16 06:00 112 05/19/16 04:34 94 40 05/19/16 04:00 98.1 111 19 131/61 91 05/19/16 04:00 111 05/19/16 04:00 40 05/19/16 02:00 110 05/19/16 01:01 91 40 05/19/16 00:00 40 05/19/16 00:00 98.0 109 18 126/59 92 05/19/16 00:00 109 05/18/16 22:00 109 05/18/16 20:22 96 40 05/18/16 20:00 107 05/18/16 20:00 45 05/18/16 20:00 98.8 104 18 131/63 97 05/18/16 18:01 104 05/18/16 16:00 101 05/18/16 16:00 97.9 101 20 122/64 95 05/18/16 16:00 50 05/18/16 15:47 96 45 05/18/16 14:00 104 05/18/16 12:00 98.0 104 22 131/64 96 05/18/16 12:00 101 05/18/16 12:00 50 05/18/16 11:17 45 05/18/16 11:17 91 45 05/18/16 10:00 104 1105/18/16 05/19/16 15:00 23:00 07:00 Intake Total 711 ml 384 ml 374 ml Output Total 500 ml 300 ml 350 ml Balance 211 ml 84 ml 24 ml IV Total 586 ml 206 ml 292 ml Tube Feeding 125 ml 58 ml 82 ml Tube Irrigant 120 ml Output Urine Total 500 ml 300 ml 350 ml # Bowel Movements 1 1 . Laboratory Tests Test 05/18/16 05/19/16 06:00 04:39 White Blood Count 12.9 TH/MM3 12.9 TH/MM3 Red Blood Count 3.09 MIL/MM3 2.94 MIL/MM3 Hemoglobin 7.5 GM/DL 7.3 GM/DL Hematocrit 24.0 % 23.1 % Mean Corpuscular Volume 77.6 FL 78.7 FL Mean Corpuscular Hemoglobin 24.3 PG 24.8 PG Mean Corpuscular Hemoglobin 31.3 % 31.5 % Concent Red Cell Distribution Width 24.9 % 25.0 % Platelet Count 165 TH/MM3 161 TH/MM3 Mean Platelet Volume 8.9 FL 8.4 FL Neutrophils (%) (Auto) 78.8 % 84.0 % Lymphocytes (%) (Auto) 14.9 % 10.7 % Monocytes (%) (Auto) 4.6 % 3.4 % Eosinophils (%) (Auto) 1.3 % 1.3 % Basophils (%) (Auto) 0.4 % 0.6 % Neutrophils # (Auto) 10.2 TH/MM3 10.8 TH/MM3 Lymphocytes # (Auto) 1.9 TH/MM3 1.4 TH/MM3 Monocytes # (Auto) 0.6 TH/MM3 0.4 TH/MM3 Eosinophils # (Auto) 0.2 TH/MM3 0.2 TH/MM3 Basophils # (Auto) 0.1 TH/MM3 0.1 TH/MM3 CBC Comment AUTO DIFF AUTO DIFF Differential Total Cells 100 100 Counted Neutrophils % (Manual) 71 % 76 % Band Neutrophils % 11 % 6 % Lymphocytes % 11 % 5 % Monocytes % 5 % 6 % Neutrophils # (Manual) 10.8 TH/MM3 10.8 TH/MM3 Myelocytes 2 % 2 % Nucleated Red Blood Cells 2 /100 WBC 2 /100 WBC Differential Comment FINAL DIFF FINAL DIFF MANUAL MANUAL Platelet Estimate NORMAL NORMAL Platelet Morphology Comment NORMAL NORMAL Polychromasia 3.3 % Basophilic Stippling MOD MOD Eosinophils % 3 % Basophils % 2 % Laboratory Tests Test 05/17/16 05/18/16 05/19/16 14:30 06:00 04:39 Potassium Level 3.0 MEQ/L 2.5 MEQ/L 2.8 MEQ/L Magnesium Level 1.6 MG/DL 1.5 MG/DL 1.6 MG/DL Sodium Level 135 MEQ/L 136 MEQ/L Chloride Level 88 MEQ/L 88 MEQ/L Carbon Dioxide Level 37.0 MEQ/L 39.2 MEQ/L Anion Gap 10 MEQ/L 9 MEQ/L Blood Urea Nitrogen 13 MG/DL 12 MG/DL Creatinine 0.27 MG/DL 0.28 MG/DL Estimat Glomerular Filtration 392 ML/MIN 376 ML/MIN Rate Random Glucose 96 MG/DL 114 MG/DL Calcium Level 8.5 MG/DL 8.4 MG/DL Phosphorus Level 1.9 MG/DL 2.4 MG/DL Imaging Chest X-Ray 05/16/16 06 Signed Impressions: Service Date/Time: April 03:21 - CONCLUSION: 1. Slight improvement in bilateral airspace disease over the last day. Horacio Gupta MD Chest X-Ray 05/15/16599 Signed Impressions: Service Date/Time: Sunday, May 15, 2016 04:31 - CONCLUSION: 1. Slight increase in airspace disease since May 13. Differential diagnosis includes pulmonary edema. Support apparatus unchanged. Horacio Gupta MD Chest X-Ray 05/13/16599 Signed Impressions: Service Date/Time: Friday, May 13, 2016 03:26 - CONCLUSION: 1. Stable exam compared with May 12 with bilateral mostly basilar airspace disease. Horacio Gupta MD Chest X-Ray 05/10/16599 Signed Impressions: Service Date/Time: Tuesday, May 10, 2016 02:45 - CONCLUSION: Worsening right lower lobe infiltrate. Jeremiah Walton Jr., MD Chest X-Ray 05/09/16 06 Signed Impressions: Service Date/Time: April 02:52 - CONCLUSION: No significant change has occurred. Bill Zavala MD Chest X-Ray 05/08/16 06 Signed Impressions: Service Date/Time: Sunday, May 08, 2016 04:01 - CONCLUSION: No significant change has occurred. Bill Zavala MD Chest X-Ray 05/05/16 0600 Signed Impressions: Service Date/Time: Thursday, May 05, 2016 01:56 - CONCLUSION: Improved aeration bilaterally particularly in the left upper lobe. Tube and catheter are stable. Amador Brock MD Chest X-Ray 05/03/16 0000 Signed Impressions: Service Date/Time: Tuesday, May 03, 2016 06:40 - CONCLUSION: Increasing bilateral diffuse pulmonary infiltrates compared to the prior study. Lázaro Frankel MD Upper Extremity Ultrasound 05/02/16 0000 Signed Impressions: Service Date/Time: April 20:51 - CONCLUSION: No DVT. Garcia Lujan MD Abdomen X-Ray 04/29/16 0000 Signed Impressions: Service Date/Time: Friday, April 29, 2016 07:12 - CONCLUSION: Suspect Dobbhoff tube in the distal stomach. Garcia Lujan MD Physical Exam GENERAL: Awake and alert, on the vent, comfortable SKIN: Warm and moist. No generalized rash. HEENT: [place] conjunctivae. No scleral icterus. Nose without purulent drainage. Moist mucosa. NECK: Short and obese, has trach, site ok. Supple, no meningeal signs. CARDIOVASCULAR: Regular rate and rhythm. Distant heart sounds. RESPIRATORY: Decreased BS bilaterally. GASTROINTESTINAL: Abdomen soft, morbidly obese, not tender, not distended. MUSCULOSKELETAL: Extremities without clubbing, cyanosis. Has mild pitting edema. NEUROLOGICAL: Awake and following LINE: PICC in RUE, site ok, : [place] in place, urine looks clear Assessment & Plan Remarks IMPRESSION Chronic respiratory failure, has new trach, has HCAP - C/S with MDR PSAE Intermittent problem with desaturation MDR PSAE PNA, S/P Rx New HCAP, C/S Providencia - increasing consolidation R base, ?plugging UTI, with Proteus Fevers, better Leukocytosis, due to PNA, and partly due to steroids - better Cellulitis in his RUE and R chest - resolved Morbid obesity Hx PE Intermittent vomiting, not tolerating TF, ileus? RECOMMENDATION Continue Rocephin - plan to give till 05/25 Monitor temps Monitor progress Weaning per CCM Dana Tam MD May 19, 2016 09:24
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
--- NOTE | 2016-05-19 12:31 | HHI.FPPN ---
Subjective Remarks No acute events overnight. AFVSS. Still slightly tachycardic (101-104). On evaluation he had just been repositioned so his HR was 126, but no desaturations and he felt well. He was more communicative today and asking more about bariatric surgery and the risks of such a procedure. (Obed Glaser MD R1) Objective Vitals Vital Signs Date Time Temp Pulse Resp B/P Pulse Ox O2 Delivery O2 Flow Rate FiO2 05/19/16 11:45 94 45 05/19/16 11:45 45 05/19/16 10:00 112 05/19/16 08:00 113 05/19/16 08:00 45 05/19/16 08:00 98.9 113 18 123/61 96 05/19/16 07:36 95 40 05/19/16 06:00 112 05/19/16 04:34 94 40 05/19/16 04:00 98.1 111 19 131/61 91 05/19/16 04:00 111 05/19/16 04:00 40 05/19/16 02:00 110 05/19/16 01:01 91 40 05/19/16 00:00 40 05/19/16 00:00 98.0 109 18 126/59 92 05/19/16 00:00 109 05/18/16 22:00 109 05/18/16 20:22 96 40 05/18/16 20:00 107 05/18/16 20:00 45 05/18/16 20:00 98.8 104 18 131/63 97 05/18/16 18:01 104 05/18/16 16:00 101 05/18/16 16:00 97.9 101 20 122/64 95 05/18/16 16:00 50 05/18/16 15:47 96 45 05/18/16 14:00 104 I/O 05/18/16 05/18/16 05/18/16 05/19/16 05/19/16 05/19/16 06:59 14:59 22:59 06:59 14:59 22:59 Intake Total 340 ml 711 ml 384 ml 374 ml Output Total 500 ml 500 ml 300 ml 350 ml Balance -160 ml 211 ml 84 ml 24 ml IV Total 310 ml 586 ml 206 ml 292 ml Tube Feeding 30 ml 125 ml 58 ml 82 ml Tube Irrigant 120 ml Output Urine Total 500 ml 500 ml 300 ml 350 ml # Bowel Movements 1 1 1 (Obed Glaser MD R1) Result Diagram: 05/19/1643805/19/16438 Objective Remarks GENERAL: Morbidly obese. On mechanical ventilation, NG tube in place, awake and alert. SKIN: Warm and dry. No rashes or lesions. Ecchymosis on abdomen superior to umbilicus in area of SQ anticoagulant injections. HEAD: Normocephalic. Atraumatic. ENT: No nasal drainage. Tracheotomy site is clean and dry without drainage. CARDIOVASCULAR: Distant heart sounds. Tachycardic with regular rhythm; normal S1 /S2, no murmurs, gallops, or rubs. RESPIRATORY: On mechanical ventilation. CPAP with PEEP 12. Clear to auscultation bilaterally. No crackles or wheezes. GASTROINTESTINAL: Abdomen soft, obese, distant bowel sounds. MUSCULOSKELETAL: Lower extremity edema. Decubitus ulcer prophylaxis boots in place. NEURO: Awake, alert. Able to speak in short sentences, voice hoarse with trach. Medications and IVs Current Medications Medications (Trade) Dose Ordered Sig/Per Route Start Time Stop Time Status Last Admin (Tylenol) 650 mg Q4H PRN PO 04/24/16 15:15 05/17/16 08:38 (NS Flush) 2 ml UNSCH PRN FLUSH 04/24/16 15:15 05/13/16 21:22 (NS Flush) 2 ml BID FLUSH 04/24/16 21:00 05/19/16 09:00 (Narcan Inj) 0.4 mg UNSCH PRN IV 04/24/16 15:15 (Zyloprim) 300 mg DAILY PO 04/25/16 09:00 05/19/16 09:00 (Lipitor) 10 mg DAILY PO 04/25/16 09:00 05/19/16 09:00 (Tricor) 48 mg DAILY PO 04/25/16 09:00 05/19/16 09:00 (Synthroid) 50 mcg DAILY@06 PO 04/25/16 06:00 05/19/16 06:31 (Micatin 2% Cream) 1 applic BID TOP 04/24/16 21:00 05/19/16 09:00 (Singulair) 10 mg DAILY PO 04/25/16 09:00 05/19/16 09:00 (Xarelto) 20 mg DAILY PO 04/25/16 09:00 Hold (Ambien) 5 mg HS PRN PO 04/24/16 15:15 Hold 04/25/16 19:40 (Symbicort 160-4.5 Inh) 2 puff BID INH 04/24/16 21:00 Hold 04/25/16 19:40 Miscellaneous Information Patient in critical care unit? Ass... Q361D XX 04/24/16 20:30 04/24/16 20:30 Chlorhexidine Gluconate 15 ml 15 ml BID@08,20 MT 04/25/16 08:00 05/19/16 08:00 Propofol 100 ml @ 0 mls/hr TITRATE IV 04/24/16 22:45 05/16/16 04:14 (fentaNYL DRIP) 250 ml @ 0 mls/hr TITRATE IV 04/24/16 22:45 05/19/16 06:31 (Zofran Inj) 4 mg Q6HR PRN IV PUSH 04/25/16 21:00 05/18/16 05:00 Levothyroxine Sodium 25 mcg 25 mcg DAILY@06 IV PUSH 04/26/16 09:00 Hold 05/13/16 06:06 Midazolam HCl 100 ml @ 0 mls/hr TITRATE IV 04/26/16 09:30 05/06/16 08:10 Potassium Chloride 100 ml @ 50 mls/hr Q2H PRN IV 04/27/16 08:15 05/17/16 17:35 (KCl 20 Meq Premix Inj) 100 ml @ 50 mls/hr Q2H PRN IV 04/27/16 08:15 05/17/16 05:25 Potassium Chloride 40 meq 40 meq UNSCH PRN PO/TUBE 04/27/16 08:15 05/16/16 05:33 Potassium Chloride 100 ml @ 25 mls/hr UNSCH PRN IV 04/27/16 08:15 05/13/16 01:24 Potassium Chloride 100 ml @ 50 mls/hr Q2H PRN IV 04/27/16 08:15 05/11/16 04:58 (Magnesium Sulfate Inj/NS Inj) 100 ml @ 50 mls/hr UNSCH PRN IV 04/27/16 08:15 Magnesium Oxide 800 mg 800 mg UNSCH PRN PO 04/27/16 08:15 05/16/16 05:33 (Magnesium Sulfate Inj/NS Inj) 100 ml @ 50 mls/hr UNSCH PRN IV 04/27/16 08:15 05/17/16 05:52 Potassium Phosphate 2000 mg 2,000 mg Q4H PRN PO 04/27/16 08:15 (Sodium Phosphate Inj/NS 250 ml Inj) 250 ml @ 42 mls/hr UNSCH PRN IV 04/27/16 08:15 (KCl 40 Meq/30 ml Liq) 40 meq UNSCH PRN PO/TUBE 04/27/16 08:15 05/15/16 08:15 Potassium Phosphate 2000 mg 2,000 mg UNSCH PRN PO/TUBE 04/27/16 08:15 (Potassium Phosphate Inj/NS 250 ml Inj) 260 ml @ 42 mls/hr UNSCH PRN IV 04/27/16 08:15 05/13/16 23:30 (Benadryl Inj) 25 mg Q4H PRN IV PUSH 04/27/16 08:30 (Elizabeth-Colace) 1 tab BID PRN PO 04/27/16 08:30 (Lovenox Inj) 150 mg Q12H SQ 05/01/16 16:00 05/19/16 06:31 (D50w (Vial) Inj) 25 ml UNSCH PRN IV PUSH 05/05/16 12:15 Hold (Glucagon Inj) 1 mg UNSCH PRN OTHER 05/05/16 12:15 Hold (NovoLIN R SUPPLEMENTAL SCALE) 1 Q4HR SQ 05/05/16 12:00 Hold 05/15/16 16:02 (Reglan Inj) 10 mg Q12HR IV PUSH 05/06/16 16:00 05/19/16 09:00 (Mycostatin Powder) 1 applic BID TOPICAL 05/06/16 21:00 05/19/16 09:00 (predniSONE LIQ) 40 mg Taper DAILY PO 05/10/16 09:00 06/03/16 08:59 05/19/16 09:00 Famotidine 20 mg 20 mg Q12HR PO 05/10/16 09:00 05/19/16 09:00 (Rocephin Inj/NS Inj) 100 ml @ 200 mls/hr Q24H IV 05/12/16 08:00 05/25/16 23:00 05/19/16 08:00 (Cardizem) 60 mg QID PO 05/13/16 09:00 05/19/16 09:00 (Zoloft) 50 mg DAILY PO 05/15/16 09:00 05/19/16 09:00 (Obed Glaser MD R1) Date of Insertion: Apr 24, 2016 (Obed Glaser MD R1) Date of Insertion: Apr 26, 2016 Line: PICC Side: Right (Obed Glaser MD R1) A/P Assessment and Plan Assessment and Plan Acute hypercapnic/hypoxemic respiratory failure Healthcare associated pneumonia with MDR Pseudomonas UTI with proteus mirabilis Sepsis CHF exacerbation CO2 narcosis Chronic Respiratory Failure s/p Tracheostomy 4 years ago (Shiley 6.0 Proximal XLT) COPD/obesity hypoventilation syndrome Morbid Obesity BMI 66 History of pulmonary embolism 4 years ago Chronic atrial fibrillation Anxiety CHF (Echo 2013 EF 40-45%; ECHO 08/2015 showing grossly normal systolic function) Hypertension Hypothyroidism PLAN NEURO: answering questions appropriately, awake and alert Anxiety -Wean sedatives as tolerated while maintaining synchrony with vent - Started Sertraline for depression/anxiety, reports better moods RESP: CPAP trial with PEEP 10 Acute hypercapnic/hypoxemic respiratory failure Healthcare associated pneumonia Chronic Respiratory Failure s/p Tracheostomy 4 years ago COPD/obesity hypoventilation syndrome History of pulmonary embolism 4 years ago Pulmonary edema - Bronchoscopy done, cultures pending, no growth to date -Continue mechanical ventilation, currently CPAP trial. Wean to keep SaO2 >88% -Healthcare associated pneumonia (MDRO) is being treated with IV Rocephin ( - ). IV Diflucan for heather UTI. ID following -Sputum culture revealed Pseudomonas MDR, providencia stuartii -DuoNeb every 4 hours scheduled -Pulmicort BID (home med) -Continue prednisone 50 mg with taper -Therapeutic Lovenox 150 mg every 12 hours -Chest x-ray bibasilar infiltrates unchanged CV: CHF exacerbation Pulmonary edema Chronic atrial fibrillation -Discontinue Lasix due to hypokalemia, monitor I's and O's and for fluid overload. -A. fib rate controlled -Therapeutic Lovenox 150 mg twice a day GI: Super morbid obesity with BMI of 68 -Tube feeds Glucerna, having vomiting this morning. Getting Reglan. -Pepcid for GI prophylaxis -SSI per ICU protocol - Significant diarrhea, get c.diff, hold free water due to hyponatremia/ hypochloremia. : -Monitor potassium, phosphorus and magnesium. -Potassium decreasing, through diarrhea/insulin, replace. - Hold free water - Hold Lasix -Monitor renal function -Milan catheter -Urine culture revealed Haether-, Fluconazole -Strict I&O ID: Healthcare associated pneumonia Sepsis MDRO Possible cellulitis right arm and fast Leukocytosis -IV rocephin (05/07 - ) for 14 days to cover Proteus and Providencia, colistin nebs discontinued, Zyvox for cellulitis discontinued, Diflucan discontinued -Blood urine and blood culture NGTD. -Wound culture Pseudomonas MDR -Sputum culture-Pseudomonas MDR -ID consulted, follow-up recommendations -Blood cx from 05/03 negative. Urine culture positive for proteus mirabilis. HEME: History of PE on chronic anticoagulation with Xarelto Leukocytosis -Monitor CBC, CMP, coags -Xarelto for PE 4 yrs ago. -Hold Xarelto. -Changed to Lovenox 150 mg twice a day ENDO: Hypothyroidism -Electrolyte replacement protocol -Continue levothyroxine 25 mcgs IV daily - Prednisone 50 mg taper. - Insulin held overnight for low potassium restart sliding scale. PROPH: -Bilateral lower extremity SCDs. Lovenox DVT prophylaxis. IV Protonix for GI prophylaxis LINES: - PICC line Discharge Planning Patient will need to be weaned from mechanical ventilation with stable clinical status. Hopeful for patient to be able to return to long-term rehab facility. If he qualifies can consider care home vent facility depending on how he does. ( Obed Glaser MD R1) Attending Attestation This 31 male is admitted with a chief complaint of Acute Respiratory Failure. Patient has been examined and the case reviewed with the resident physicians. agree with plan (Tanya Cochran MD) Problem List: (1) On mechanically assisted ventilation Status: Acute Plan: Critical care actively managing acute hypercapnic and hypoxemic respiratory failure and HCAP at this time. He has obesity hypoventilation and care home the only solution is to lose 100 lbs or so. He may be able to get gastric banding/bypass at some point though he is definitely too sick right now. Started discussion about this 05/17 but will also check with case management to see his past Psychiatric history or whether his mother can influence him to take the steps necessary to save his life. Today seemed much more Patient placed on mechanical ventilation on 04/24, FiO2 now 40% with PEEP of 12 S/p urgent/emergent trach exchange 05/02 due to acute hypoxemia and large cuff leak S/p course of solumedrol Continue to taper PO prednisone (currently 40 mg PO daily) (2) HCAP (healthcare-associated pneumonia) Status: Acute Plan: Repeat ABG on 04/26 showed improvement with CO2 56 with pH 7.40 05/01 BCXs no growth (final) 05/03 BCx no growth (final) 05/04 BCx no growth (final) CXR 04/29 showing stable bibasilar consolidative infiltrates 04/30 CXR shows bilateral airspace disease greater in the right lower lobe 05/05 CXR showing improved aeration bilaterally 04/27 Sputum culture growing resistant pseudomonas 05/04 repeat sputum culture munoz-sensitive Providencia stuartii 05/05 proteus mirabilis 05/10 no fungal or bacterial growth Antibiotic History Zosyn 4.5gm IV q6h (04/24 - 04/29) Levaquin 750mg IV q24h (04/24-04/30) Zerbaxa 1.5 g IV q8h (04/29 - 05/07) Vancomycin IV (04/24 - 05/06) Ceftriaxone IV (05/07 - present) Linezolid 600 mg PO BID (05/06 - 05/13) Plan - Infectious Disease consulted, appreciate recs * Continue Ceftriaxone 2 g IV Q24H - Duonebs q2h (3) Yeast UTI Status: Resolved Plan: 05/01 Urine CX growing heather albicans 05/05 repeat UA with large LE, negative nitrite, 182 WBCs; culture grew Proteus Mirabilis Completed course of Diflucan (4) Cellulitis of chest wall Status: Resolved Plan: Resolved - Complete course of linezolid 600 mg PO BID (05/06-05/13) per ID recs (5) CHF (congestive heart failure) Status: Chronic Plan: Last ECHO 09/18/2015 showing a grossly normal systolic function with no definitive EF as it was difficult to assess, ECHO on 05/2014 with EF of 40-45% with mildly dilated left atrium 04/25 ECHO was limited due to poor image quality, EF could not be adequately estimated. Systolic function appears to be grossly normal. BNP on admission 419, repeat BNP 151. suspect cardiac problems from his hypoventilation. Critical care actively managing diuresis - Lasix drip discontinued - Bumex Discontinued - Completed 3 days of acetazolamide (6) Atrial fibrillation Status: Chronic Plan: Last EKG in sinus rhythm Tachycardic but regular on exam Home dose of Xarelto 20 mg po daily has been held. Currently on Lovenox 150mg SQ Q12H (7) Depression Status: Acute Plan: Likely chronic and due to prolonged illness * Sertraline 25 mg PO daily (8) Tracheostomy present Status: Chronic Plan: S/p urgent/emergent trach exchange 05/02 due to acute hypoxemia and large cuff leak Has been stable since procedure (9) HTN (hypertension) Status: Chronic Plan: BPs stable Hold home BP medications (10) Morbid obesity with BMI of 60.0-69.9, adult Status: Chronic Plan: luan. obesity hypoventilation syndrome causes his respiratory problems. will try small dose of Zoloft 25 mg and will increase. He is a bit anxious today. Unsure if he has some underlying depression as well. (11) Hypothyroidism Status: Chronic Plan: Synthroid 25 mcg IV daily (12) Nutrition, metabolism, and development symptoms Status: Acute Plan: Fluids: none Electrolytes: Monitor and replete when necessary per protocol Nutrition: NG tube, tube feeds with Glucerna 10ml/hr, his glucerna does not have quite enough K so he needs more K daily plus he has loose stools as he is on tube feeds and probably loses more K that way. will continue to replace DVT PPx: Therapeutic Lovenox 150mg subq q12h Glucose: Insulin medium dose sliding scale to control blood sugar; currently stable around 95-120 (Obed Glaser MD R1) Problem Qualifiers (1) CHF (congestive heart failure): Qualified Code: I50.9 - Acute on chronic congestive heart failure, unspecified congestive heart failure type (2) Atrial fibrillation: Qualified Code: I48.2 - Chronic atrial fibrillation (3) Depression: Qualified Code: F32.9 - Reactive depression (4) HTN (hypertension): Qualified Code: I10 - Essential hypertension (5) Hypothyroidism: Qualified Code: E03.9 - Hypothyroidism, unspecified type Obed Glaser MD R1 May 19, 2016 12:31 Tanya Cochran MD May 19, 2016 16:25
[2016-05-19 12:43] LABS: HEMATOCRIT 23.2 % (39.0-51.0)
[2016-05-19 21:01] LABS: POTASSIUM 3.1 MEQ/L (3.5-5.1)
[2016-05-19] MEDS: ONDANSETRON HCL 4 MG/2 ML VIAL IV PUSH PRN (22:12)
[2016-05-19] MEDS: POTASSIUM CHLOR 40 MEQ PREMIX 100 ML IV PRN (22:13)
[2016-05-20] VITALS (19 sets, daily range): BP systolic 126–147; BP diastolic 59–78; PULSE 96–118; RESP 17–23; TEMP 98.1–99.4; O2SAT 91–100
[2016-05-20] MEDS: RESP: ALBUTEROL 2.5 MG/IPRATROPIUM 0.5 MG NEB (SCH) NEB ×4 (04:10→19:54)
--- NOTE | 2016-05-20 04:50 | RADRPT ---
EXAM DATE/TIME: 05/20/2016 03:21 [facility] COMPARISON: CHEST SINGLE AP, May 16, 2016, 3:21. INDICATIONS : Shortness of breath, possible pulmonary disease. MEDICAL HISTORY : Hypertension. Congestive heart failure. SURGICAL HISTORY : Tracheostomy ENCOUNTER: Subsequent ACUITY: 3 weeks PAIN SCORE: Non-responsive. LOCATION: Bilateral chest FINDINGS: There is a tracheostomy tube in place. The NG tube is well placed. There is a PICC line in place with its tip directed superiorly into the right internal jugular vein region. This configuration is uncha nged. The heart size is enlarged. There is increased density at the mid and lower lungs bilaterally w orse on the right. CONCLUSION: Persistent mid and lower lung areas of consolidation or atelectasis being worse in the right. There h as been mild improvement. Garcia Lujan MD on May 20, 2016 at 4:46 Board Certified Radiologist. This report was verified electronically.
[2016-05-20] MEDS: LEVOTHYROXINE SODIUM 50 MCG TAB PO SCH (05:59)
[2016-05-20] MEDS: INSULIN ASPART SUPPLEMENTAL SCALE SQ SCH ×4 (05:59→21:00)
[2016-05-20] MEDS: ENOXAPARIN SODIUM 150 MG/ML SYRINGE SQ SCH ×2 (05:59→15:30)
[2016-05-20 06:34] LABS: AUTOMATED NEUTROPHIL # 8.6 TH/MM3 (1.8-7.7); BASOPHIL % 0.5 % (0.0-2.0); EOSINOPHIL # 0.2 TH/MM3 (0-0.4); EOSINOPHIL % 1.6 % (0.0-4.0); HEMATOCRIT 22.2 % (39.0-51.0); LYMPH % 9.7 % (9.0-44.0); MEAN CELL VOLUME 78.5 FL (80.0-100.0); MEAN CORPUSCULAR HEMOGLOBIN 24.8 PG (27.0-34.0); MEAN CORPUSCULAR HGB CONC 31.6 % (32.0-36.0); NEUT % 84.2 % (16.0-70.0); PLATELET COUNT 150 TH/MM3 (150-450); RED BLOOD COUNT 2.83 MIL/MM3 (4.50-5.90); WHITE BLOOD COUNT 10.2 TH/MM3 (4.0-11.0)
[2016-05-20 06:37] LABS: HEMO FLAGS AUTO DIFF
[2016-05-20 07:14] LABS: BICARBONATE 38.3 MEQ/L (21.0-32.0); MAGNESIUM 1.6 MG/DL (1.5-2.5); POTASSIUM 3.8 MEQ/L (3.5-5.1)
[2016-05-20] MEDS: RESP: BUDESONIDE 0.5 MG/2 ML NEB NEB SCH ×2 (07:54→20:01)
[2016-05-20] MEDS: cefTRIAXone INJ 2,000 MG in SODIUM CHLORIDE 0.9% INJ 100 ML IV SCH (08:29)
[2016-05-20] MEDS: METOCLOPRAMIDE HCL 10 MG/2 ML VIAL IV PUSH SCH ×2 (08:30→22:25)
[2016-05-20] MEDS: ATORVASTATIN 10 MG TAB PO SCH (08:30)
[2016-05-20] MEDS: FENOFIBRATE 48 MG TAB PO SCH (08:30)
[2016-05-20] MEDS: MONTELUKAST SODIUM 10 MG TAB PO SCH (08:31)
[2016-05-20] MEDS: DILTIAZEM HCL 60 MG TAB PO SCH ×4 (08:31→22:24)
[2016-05-20] MEDS: SERTRALINE HCL 50 MG TAB PO SCH (08:31)
[2016-05-20] MEDS: ALLOPURINOL 300 MG TAB PO SCH (08:31)
[2016-05-20] MEDS: FAMOTIDINE 20 MG TAB PO SCH ×2 (08:31→22:24)
[2016-05-20] MEDS: POTASSIUM PHOSPHATE MONOBASIC 500 MG TAB PO PRN ×2 (08:32→12:11)
[2016-05-20] MEDS: fentaNYL DRIP 250 ML IV SCH ×2 (08:32→17:53)
[2016-05-20 08:33] LABS: BANDS 11 % (0-6); CORRECTED NUCLEATED RBC 1 /100 WBC (0-0); EOSINOPHILS 4 % (0-4); NEUTROPHIL # MANUAL DIFF 8.7 TH/MM3 (1.8-7.7); POLYCHROMASIA 3.2 % (0.0-1.9); POLYS (SEG NEUTROPHILS) 74 % (16-70); WBC DIFF SAMPLE 100
[2016-05-20] MEDS: SODIUM CHLORIDE 0.9% FLUSH 5 ML FLUSH FLUSH SCH ×2 (08:33→22:25)
[2016-05-20 08:34] LABS: PLATELET ESTIMATE SMEAR NORMAL (NORMAL); PLATELET MORPHOLOGY NORMAL (NORMAL); SCAN/DIFF FINAL DIFF MANUAL; STOMATOCYTES 1+ (NORMAL)
[2016-05-20] MEDS: predniSONE 5 MG/5 ML CUP PO SCH (08:39)
[2016-05-20] MEDS: NYSTATIN 100,000 U/GM PWD 15 GM BTL TOPICAL SCH ×2 (08:40→22:25)
[2016-05-20] MEDS: MICONAZOLE NITRATE 2% CREAM 15 GM TOP SCH ×2 (08:40→22:25)
[2016-05-20] MEDS: CHLORHEXIDINE 0.12% (ORAL KIT) 15 ML CUP MT SCH ×2 (08:40→20:00)
--- NOTE | 2016-05-20 09:06 | HHI.FPPN ---
Subjective Remarks No acute events overnight. Has no complaints this morning. He has improved functioning of his right arm/hand. No pain reported. He would like water. ( Joshua Morgan MD R2) Objective Vitals Vital Signs Date Time Temp Pulse Resp B/P Pulse Ox O2 Delivery O2 Flow Rate FiO2 05/20/16 07:55 96 40 05/20/16 06:00 108 05/20/16 04:10 93 40 05/20/16 04:00 40 05/20/16 04:00 98.1 110 18 130/62 94 05/20/16 04:00 110 05/20/16 02:00 118 05/20/16 00:38 92 40 05/20/16 00:00 110 05/20/16 00:00 40 05/20/16 00:00 98.9 110 18 126/59 91 05/19/16 22:00 113 05/19/16 20:00 121 05/19/16 20:00 98.0 121 19 144/65 98 05/19/16 20:00 40 05/19/16 19:28 96 40 05/19/16 18:33 97 40 05/19/16 18:00 112 05/19/16 16:00 105 05/19/16 16:00 45 05/19/16 16:00 98.0 109 18 130/72 92 05/19/16 15:44 98 45 05/19/16 14:00 112 05/19/16 12:00 40 05/19/16 12:00 109 05/19/16 12:00 98.1 108 20 135/65 91 05/19/16 11:45 94 45 05/19/16 11:45 45 05/19/16 10:00 112 I/O 05/19/16 05/19/16 05/19/16 05/20/16 05/20/16 05/20/16 06:59 14:59 22:59 06:59 14:59 22:59 Intake Total 374 ml 472 ml 1066 ml Output Total 350 ml 350 ml 600 ml Balance 24 ml 122 ml 466 ml IV Total 292 ml 344 ml 622 ml Tube Feeding 82 ml 128 ml 264 ml Tube Irrigant 180 ml Output Urine Total 350 ml 350 ml 600 ml # Bowel Movements 1 1 1 (Joshua Morgan MD R2) Result Diagram: 05/20/16 0610 05/20/16 0610 Objective Remarks GENERAL: Morbidly obese. On mechanical ventilation, NG tube in place, awake and alert. SKIN: Warm and dry. No rashes or lesions. Ecchymosis on abdomen superior to umbilicus in area of SQ anticoagulant injections. HEAD: Normocephalic. Atraumatic. ENT: No nasal drainage. Tracheotomy site is clean and dry without drainage. CARDIOVASCULAR: Distant heart sounds. Tachycardic with regular rhythm; normal S1 /S2, no murmurs, gallops, or rubs. RESPIRATORY: On mechanical ventilation. CPAP with FiO2 40 and PEEP 12. Clear to auscultation bilaterally. No crackles or wheezes. GASTROINTESTINAL: Abdomen soft, obese, distant bowel sounds. MUSCULOSKELETAL: Lower extremity edema. Decubitus ulcer prophylaxis boots in place. NEURO: Awake, alert. Able to speak in short sentences, voice hoarse with trach. Right arm with numbness/tingling, some loss of movement, he lays on his right arm and feels like its asleep. (Josuha Morgan MD R2) Date of Insertion: Apr 24, 2016 (Joshua Morgan MD R2) Date of Insertion: Apr 26, 2016 Line: PICC Side: Right (Joshua Morgan MD R2) A/P Assessment and Plan Assessment and Plan Acute hypercapnic/hypoxemic respiratory failure Healthcare associated pneumonia with MDR Pseudomonas UTI with proteus mirabilis Sepsis CHF exacerbation CO2 narcosis Chronic Respiratory Failure s/p Tracheostomy 4 years ago (Shiley 6.0 Proximal XLT) COPD/obesity hypoventilation syndrome Morbid Obesity BMI 66 History of pulmonary embolism 4 years ago Chronic atrial fibrillation Anxiety CHF (Echo 2013 EF 40-45%; ECHO 08/2015 showing grossly normal systolic function) Hypertension Hypothyroidism PLAN NEURO: answering questions appropriately, awake and alert Anxiety -Wean sedatives as tolerated while maintaining synchrony with vent - Started Sertraline for depression/anxiety, reports better moods RESP: CPAP trial with PEEP 12, FiO2 40 Acute hypercapnic/hypoxemic respiratory failure Healthcare associated pneumonia Chronic Respiratory Failure s/p Tracheostomy 4 years ago COPD/obesity hypoventilation syndrome History of pulmonary embolism 4 years ago Pulmonary edema -Continue mechanical ventilation, currently CPAP trial. Wean to keep SaO2 >88% -Healthcare associated pneumonia (MDRO) is being treated with IV Rocephin ( - ). IV Diflucan for heather UTI. ID following -Sputum culture revealed Pseudomonas MDR, providencia stuartii -DuoNeb every 4 hours scheduled -Pulmicort BID (home med) -Continue prednisone 50 mg with taper -Therapeutic Lovenox 150 mg every 12 hours CV: CHF exacerbation Pulmonary edema Chronic atrial fibrillation -Discontinue Lasix due to hypokalemia, monitor I's and O's and for fluid overload. -A. fib rate controlled -Therapeutic Lovenox 150 mg twice a day GI: Super morbid obesity with BMI of 68 -Tube feeds Glucerna, having vomiting this morning. Getting Reglan. -Pepcid for GI prophylaxis -SSI per ICU protocol - Significant diarrhea, get c.diff, hold free water due to hyponatremia/ hypochloremia. - Hgb decreasing, etiology unclear, will get hemoccult. : -Monitor potassium, phosphorus and magnesium. -Potassium improved, continue replacement protocol - Add free water, NaCl improved. - Hold Lasix -Monitor renal function -Milan catheter -Strict I&O ID: Healthcare associated pneumonia Sepsis MDRO Possible cellulitis right arm and fast Leukocytosis -IV rocephin (05/07 - ) for 14 days to cover Proteus and Providencia, colistin nebs discontinued, Zyvox for cellulitis discontinued, Diflucan discontinued -Blood urine and blood culture NGTD. -Wound culture Pseudomonas MDR -Sputum culture-Pseudomonas MDR -ID consulted, follow-up recommendations -Blood cx from 05/03 negative. Urine culture positive for proteus mirabilis. HEME: History of PE on chronic anticoagulation with Xarelto Leukocytosis -Monitor CBC, CMP, coags -Xarelto for PE 4 yrs ago. -Hold Xarelto. -Changed to Lovenox 150 mg twice a day - Hgb down to 7.0, been trending down. Will get Hemoccult, be conservative with transfusion, repeat hgb this afternoon to monitor. ENDO: Hypothyroidism -Electrolyte replacement protocol -Continue levothyroxine 25 mcgs IV daily - Prednisone 50 mg taper. - Insulin held overnight for low potassium restart sliding scale. PROPH: -Bilateral lower extremity SCDs. Lovenox DVT prophylaxis. IV Protonix for GI prophylaxis LINES: - PICC line Discharge Planning Patient will need to be weaned from mechanical ventilation with stable clinical status. Hopeful for patient to be able to return to long-term rehab facility. If he qualifies can consider [facility] facility depending on how he does. ( Joshua Morgan MD R2) Attending Attestation Patient seen and examined. Discussed with Drs. Glaser and Eddie. Agree with assessment and plan as documented. (Darryl Wright Jr., MD) Joshua Morgan MD R2 May 20, 2016 09:06 Darryl Wright Jr., MD May 21, 2016 17:24
[2016-05-20 11:33] LABS: TRANSFERRIN IRON PROFILE 212 MG/DL (200-360)
[2016-05-20] MEDS: FERROUS SULFATE 300 MG /5ML UDC PO SCH (13:31)
[2016-05-20 14:14] LABS: HEMATOCRIT 23.3 % (39.0-51.0)
--- NOTE | 2016-05-20 14:14 | HHI.IDPN ---
Subjective Subjective Remarks Notes reviewed Temps ok BP ok Stable on the vent settings Antibiotics Rocephin Lines PICC RUE Past Medical History Chronic Respiratory Failure s/p Tracheostomy 4 years ago Morbid Obesity w/ BMI 67.6 Atrial fibrillation Pulmonary embolism 4 years ago Anxiety CHF (Echo 06/07/2014 w/ EF 40-45%; ECHO 08/2015 showing a grossly normal systolic function) HTN Hypothyroidism Past Surgical History Tracheostomy Tonsillectomy Allergies: Coded Allergies: *MDRO Multi-Drug Resistant Organism (Verified Adverse Reaction, Unknown, 05/08/16) XDR Pseudomonas aeruginosa (sputum) - 09/18/15; (sputum & wound) - 04/27/16 Objective . Vital Signs Date Time Temp Pulse Resp B/P Pulse Ox O2 Delivery O2 Flow Rate FiO2 05/20/16 13:35 92 40 05/20/16 12:00 112 05/20/16 12:00 98.8 112 17 139/66 91 05/20/16 12:00 40 05/20/16 10:25 93 40 05/20/16 10:00 106 05/20/16 08:00 40 05/20/16 08:00 110 05/20/16 08:00 98.9 110 17 132/63 95 05/20/16 07:55 96 40 05/20/16 06:00 108 05/20/16 04:10 93 40 05/20/16 04:00 40 05/20/16 04:00 98.1 110 18 130/62 94 05/20/16 04:00 110 05/20/16 02:00 118 05/20/16 00:38 92 40 05/20/16 00:00 110 05/20/16 00:00 40 05/20/16 00:00 98.9 110 18 126/59 91 05/19/16 22:00 113 05/19/16 20:00 121 05/19/16 20:00 98.0 121 19 144/65 98 05/19/16 20:00 40 05/19/16 19:28 96 40 05/19/16 18:33 97 40 05/19/16 18:00 112 05/19/16 16:00 105 05/19/16 16:00 45 05/19/16 16:00 98.0 109 18 130/72 92 05/19/16 15:44 98 45 05/19/16 05/19/16 05/20/16 15:00 23:00 07:00 Intake Total 472 ml 1066 ml Output Total 350 ml 600 ml Balance 122 ml 466 ml IV Total 344 ml 622 ml Tube Feeding 128 ml 264 ml Tube Irrigant 180 ml Output Urine Total 350 ml 600 ml # Bowel Movements 1 1 . Laboratory Tests Test 05/19/16 05/19/16 05/20/16 04:39 12:05 06:10 White Blood Count 12.9 TH/MM3 10.2 TH/MM3 Red Blood Count 2.94 MIL/MM3 2.83 MIL/MM3 Hemoglobin 7.3 GM/DL 7.3 GM/DL 7.0 GM/DL Hematocrit 23.1 % 23.2 % 22.2 % Mean Corpuscular Volume 78.7 FL 78.5 FL Mean Corpuscular Hemoglobin 24.8 PG 24.8 PG Mean Corpuscular Hemoglobin 31.5 % 31.6 % Concent Red Cell Distribution Width 25.0 % 26.0 % Platelet Count 161 TH/MM3 150 TH/MM3 Mean Platelet Volume 8.4 FL 7.8 FL Neutrophils (%) (Auto) 84.0 % 84.2 % Lymphocytes (%) (Auto) 10.7 % 9.7 % Monocytes (%) (Auto) 3.4 % 4.0 % Eosinophils (%) (Auto) 1.3 % 1.6 % Basophils (%) (Auto) 0.6 % 0.5 % Neutrophils # (Auto) 10.8 TH/MM3 8.6 TH/MM3 Lymphocytes # (Auto) 1.4 TH/MM3 1.0 TH/MM3 Monocytes # (Auto) 0.4 TH/MM3 0.4 TH/MM3 Eosinophils # (Auto) 0.2 TH/MM3 0.2 TH/MM3 Basophils # (Auto) 0.1 TH/MM3 0.0 TH/MM3 CBC Comment AUTO DIFF AUTO DIFF Differential Total Cells 100 100 Counted Neutrophils % (Manual) 76 % 74 % Band Neutrophils % 6 % 11 % Lymphocytes % 5 % 10 % Monocytes % 6 % 1 % Eosinophils % 3 % 4 % Basophils % 2 % Neutrophils # (Manual) 10.8 TH/MM3 8.7 TH/MM3 Myelocytes 2 % Nucleated Red Blood Cells 2 /100 WBC 1 /100 WBC Differential Comment FINAL DIFF FINAL DIFF MANUAL MANUAL Platelet Estimate NORMAL NORMAL Platelet Morphology Comment NORMAL NORMAL Basophilic Stippling MOD Polychromasia 3.2 % Stomatocytes 1+ Laboratory Tests Test 05/19/16 05/19/16 05/20/16 04:39 20:27 06:10 Sodium Level 136 MEQ/L 135 MEQ/L Potassium Level 2.8 MEQ/L 3.1 MEQ/L 3.8 MEQ/L Chloride Level 88 MEQ/L 89 MEQ/L Carbon Dioxide Level 39.2 MEQ/L 38.3 MEQ/L Anion Gap 9 MEQ/L 8 MEQ/L Blood Urea Nitrogen 12 MG/DL 13 MG/DL Creatinine 0.28 MG/DL 0.24 MG/DL Estimat Glomerular Filtration 376 ML/MIN 450 ML/MIN Rate Random Glucose 114 MG/DL 101 MG/DL Calcium Level 8.4 MG/DL 8.5 MG/DL Phosphorus Level 2.4 MG/DL 3.5 MG/DL 1.9 MG/DL Magnesium Level 1.6 MG/DL 1.6 MG/DL Iron Level 32 MCG/DL Total Iron Binding Capacity 297 MCG/DL Percent Iron Saturation 10.8 % Imaging Chest X-Ray 05/16/16599 Signed Impressions: Service Date/Time: April 03:21 - CONCLUSION: 1. Slight improvement in bilateral airspace disease over the last day. Horacio Gupta MD Chest X-Ray 05/15/16599 Signed Impressions: Service Date/Time: Sunday, May 15, 2016 04:31 - CONCLUSION: 1. Slight increase in airspace disease since May 13. Differential diagnosis includes pulmonary edema. Support apparatus unchanged. Horacio Gupta MD Chest X-Ray 05/13/16599 Signed Impressions: Service Date/Time: Friday, May 13, 2016 03:26 - CONCLUSION: 1. Stable exam compared with May 12 with bilateral mostly basilar airspace disease. Horacio Gupta MD Chest X-Ray 05/10/16599 Signed Impressions: Service Date/Time: Tuesday, May 10, 2016 02:45 - CONCLUSION: Worsening right lower lobe infiltrate. Jeremiah Walton Jr., MD Chest X-Ray 05/09/16599 Signed Impressions: Service Date/Time: April 02:52 - CONCLUSION: No significant change has occurred. Bill Zavala MD Chest X-Ray 11/9/16 0600 Signed Impressions: Service Date/Time: Sunday, May 08, 2016 04:01 - CONCLUSION: No significant change has occurred. Bill Zavala MD Chest X-Ray 05/05/16 0600 Signed Impressions: Service Date/Time: Thursday, May 05, 2016 01:56 - CONCLUSION: Improved aeration bilaterally particularly in the left upper lobe. Tube and catheter are stable. Amador Brock MD Chest X-Ray 05/03/16 0000 Signed Impressions: Service Date/Time: Tuesday, May 03, 2016 06:40 - CONCLUSION: Increasing bilateral diffuse pulmonary infiltrates compared to the prior study. Lázaro Frankel MD Upper Extremity Ultrasound 05/02/16 0000 Signed Impressions: Service Date/Time: April 20:51 - CONCLUSION: No DVT. Garcia Lujan MD Abdomen X-Ray 04/29/16 0000 Signed Impressions: Service Date/Time: Friday, April 29, 2016 07:12 - CONCLUSION: Suspect Dobbhoff tube in the distal stomach. Garcia Lujan MD Physical Exam GENERAL: Awake and alert, on the vent, comfortable SKIN: Warm and moist. No generalized rash. HEENT: [place] conjunctivae. No scleral icterus. Moist mucosa. NECK: Short and obese, has trach, site ok. Supple, no meningeal signs. CARDIOVASCULAR: Regular rate and rhythm. Distant heart sounds. RESPIRATORY: Decreased BS bilaterally. GASTROINTESTINAL: Abdomen soft, morbidly obese, not tender, not distended. MUSCULOSKELETAL: Extremities without clubbing, cyanosis. Has mild pitting edema. NEUROLOGICAL: Awake and following LINE: PICC in RUE, site ok, : [place] in place, urine looks clear Assessment & Plan Remarks IMPRESSION Chronic respiratory failure, has new trach, has HCAP - C/S with MDR PSAE Intermittent problem with desaturation MDR PSAE PNA, S/P Rx New HCAP, C/S Providencia - increasing consolidation R base, ?plugging UTI, with Proteus Fevers, better Leukocytosis, due to PNA, and partly due to steroids - better Cellulitis in his RUE and R chest - resolved Morbid obesity Hx PE Intermittent vomiting, not tolerating TF, ileus? RECOMMENDATION Continue Rocephin - plan to give till 05/25 Monitor temps Monitor progress Weaning per CCM Seems clinically stable from ID standpoint Dana Tam MD May 20, 2016 14:14
[2016-05-20 14:19] LABS: REVIEW FLAG FINAL
--- NOTE | 2016-05-20 22:07 | HHI.CCPN ---
Subjective Remarks/Hospital Course 31 year old morbidly obese (BMI 68) male with chronic respiratory failure s/p tracheostomy 4 years ago, atrial fibrillation and pulmonary embolism on Xarelto , COPD, CHF and h/o HTN. He presented from [facility] with low oxygen saturation apparently his oxygen saturation was 82% on RA. He was placed back on 6L of oxygen via his trach mask and given a breathing treatment, initially improved however he started drifting back to low 80s again. Chest x-ray showed bibasilar infiltrates and pulmonary edema. Patient was admitted to the [facility] service and was started on IV steroids IV vancomycin and Zosyn and Levaquin for healthcare associated pneumonia. After starting ACV, patient was more awake but there was a significant amount of air leak around his tracheostomy. Patient has had a Shiley 6.0 Proximal XLT, but the submersible pilot balloon had been cut off. 05/02 the patient became acutely hypoxemic with a large cuff leak, underwent emergency trach exchange at bedside by Dr. Macias. FiO2 65% PEEP 14 05/13 Patient is on ventilator via trach, on Fentanyl infusion however he is awake and alert. On PRVC with FIO2 40%. Afebrile. 05/14 No acute events overnight. Tmax 99.8. Patient is awake, alert on ventilator via trach still requiring increase O2. On PRVC with PEEP: 10 and FIO2 70%. 05/15 patient acutely desaturated after he was found. Saturation went down to 70% on 100% oxygen. Bag and mask ventilation carried out, with eventual improvement on oxygen saturation to 85%. Patient was placed on PC/AC mode of ventilation, with PEEP of 15 and instructed to pressure of 30. Eventually oxygen saturation improved to 95%. Lasix him today as the chest x-ray from today shows increasing bilateral infiltrate and pulmonary edema. Also sputum culture will be sent 05/16 Patient is on Fentanyl and Diprivan infusion but awake and alert. Afebrile. On PC/AC with PEEP:15, IP: 22, IT:1.3 and FIO2 50% 05/17 Patient is off Diprivan and remains on Fentanyl infusion for sedation. On PC/AC with PEEP: down 10 and FIO2 40%. Afebrile. 05/18 Patient remains on ventilator via trach on PC/AC with PEEP:12, FIO2 40%, IP:22, IT:1.0. On Fentanyl infusion 05/19 No acute events overnight. On Fentanyl infusion but awake and alert. Afebrile. Subjective: 05/20 Tolerating C Pap 17/12 FIO2 40, sats 98%. RSBI in 20s, appears can be weaned further. Afebrile. Speech therapy evaluated and ok for regular diet. Starting with full liquid. Objective Vital Signs Date Time Temp Pulse Resp B/P Pulse Ox O2 Delivery O2 Flow Rate FiO2 05/20/16 20:00 40 05/20/16 20:00 103 05/20/16 20:00 99.4 23 147/78 100 05/17/16 08:16 Ventilator Intake and Output 05/19/16 05/19/16 05/20/16 08:00 16:00 00:00 Intake Total 374 ml 472 ml Output Total 350 ml 350 ml Balance 24 ml 122 ml Result Diagram: 05/20/16 1326 05/20/16 0610 Imaging Last Impressions Chest X-Ray 05/16/16 0600 Signed Impressions: Service Date/Time: April 03:21 - CONCLUSION: 1. Slight improvement in bilateral airspace disease over the last day. Horacio Gupta MD Upper Extremity Ultrasound 05/02/16 0000 Signed Impressions: Service Date/Time: April 20:51 - CONCLUSION: No DVT. Garcia Lujan MD Abdomen X-Ray 04/29/16 0000 Signed Impressions: Service Date/Time: Friday, April 29, 2016 07:12 - CONCLUSION: Suspect Dobbhoff tube in the distal stomach. Garcia Lujan MD Objective Remarks GENERAL: Patient is 31yo on ventilator via trach, awake and follows commands. Morbid obesity SKIN: Warm and dry. HEAD: Normocephalic.NGT in place with tube feeds running. EYES: No scleral icterus. No injection or drainage. NECK: Supple, trachea midline. Shiley 6.0 Proximal XLT, (new trach placed ) CARDIOVASCULAR:Tachycardic without murmurs, gallops, or rubs. RESPIRATORY: Breath sounds equal bilaterally. No accessory muscle use. GASTROINTESTINAL: Abdomen soft, obese,, non-tender, nondistended. MUSCULOSKELETAL: No cyanosis, or edema. Pedal edema. Neuro: Awake and alert. Moves all extremities without focal deficit. Procedures Shiley 6.0 XLT tracheostomy exchange under visual direction by general surgery and with GlideScope, by anesthesiologist. Date of Insertion: Apr 24, 2016 Date of Insertion: Apr 26, 2016 Line: PICC Side: Right A/P Assessment and Plan ASSESSMENT Acute hypercapnic and hypoxemic respiratory failure Acute worsening of hypoxia due to lung de-recruitment 05/15/16 Healthcare associated pneumonia MDR Pseudomonas Sepsis/persistent fever CHF exacerbation CO2 narcosis Tracheostomy submersible pilot balloon damage -status post exchange with new Shiley 6.0 Proximal XLT 05/02/16 Chronic Respiratory Failure s/p Tracheostomy 4 years ago (Shiley 6.0 Proximal XLT) COPD/obesity hypoventilation syndrome Morbid Obesity BMI 67 History of pulmonary embolism 4 years ago Chronic atrial fibrillation Anxiety CHF (Echo 2013 EF 40-45%; ECHO 08/2015 showing a grossly normal systolic function) Hypertension Hypothyroidism PLAN NEURO: CO2 narcosis - resolved Anxiety - On Fentanyl infusion for sedation, ventilator synchrony, -Zolfot 50 daily RESP: Acute hypercapnic and hypoxemic respiratory failure Acute lung derecruitment today 05/15 Healthcare associated pneumonia Tracheostomy submersible pilot balloon damage (Shiley 6.0 Proximal XLT) s/p new trach placement 05/02 Chronic Respiratory Failure s/p Tracheostomy 4 years ago COPD/obesity hypoventilation syndrome History of pulmonary embolism 4 years ago Leukocytosis Pulmonary edema - Continue with PSV 17/12 40% and continue to wean. - s/p Bronchoscopy 05/11 -follow up on BAL results-negative - DuoNeb every 6 hours scheduled, q2 prn. - Pulmicort BID (home med) -Continue singulair 10 mg po dailyi - Continue prednisone - Therapeutic Lovenox 150 mg every 12 hours CV: CHF exacerbation Pulmonary edema Chronic atrial fibrillation Hyperlipidemia - Monitor HR and BP keep MAP>65mmHg - on Cardizem 60mg QID -Continue Lipitor 10 g by mouth daily. Continue TriCor 40 mg by mouth daily - Therapeutic Lovenox 150 mg twice a day GI: Super morbid obesity with BMI of 68 Continue Tube feeds Glucerna- 1.5 goal rate 50ml/hr as beatriz Speech therapy ok for regular diet. Assessing tolerance of full liquids. Having BMs on bowel regimen. - On Pepcid 20mg BID FEN/RENAL: Hypokalemia - Monitor renal function , I/O. electrolytes replacement per protocol. - Bumex 1 mg IV q12 with KCL with KCL 40 per tube q12. ID: Healthcare associated pneumonia Sepsis MDRO Possible cellulitis right arm Leukocytosis...trending down - Continue abx per ID ( Rocephin) till 05/25 -Urine cx: Proteus Mirabilis 05/05 -Sputum cx: Providencia 05/05 -Wound cx: 05/13 Proteus, Pseudomonas, Group D Enterococcus - Wound culture Pseudomonas MDR 04/27 - Sputum culture-Pseudomonas MDR- 04/27 - Bronchoscopy and re-culture 05/10 follow up on BAL results-neg to date - Follow up on sputum cx from 05/15- NGTD HEME: History of PE on chronic anticoagulation with Xarelto Anemia, iron deficiency -Monitor CBC, CMP, coags -Xarelto for PE 4 yrs ago. -Xarelto.held, On Lovenox 150 mg twice a day -Ferrous sulfate 300 daily. ENDO: Hypothyroidism -On SSI ( Medium scale) -Continue levothyroxine 50 per tube daily PROPH: -Bilateral lower extremity SCDs. Lovenox DVT prophylaxis. IV Protonix for GI prophylaxis LINES: - PICC line RUE- No DVT on US Discussed with family medicine team. Out of bed with assistance. PT out of bed with vent. CCT 30 minutes exclusive of separately billable procedures. Sheila Solis MD May 20, 2016 22:07
[2016-05-20] MEDS: BUMETANIDE INJ 1 MG/4 ML VIAL IV PUSH SCH (22:33)
[2016-05-20] MEDS: POTASSIUM CHLORIDE 25 MEQ EFFERVESCENT TAB TUBE SCH (22:33)
[2016-05-21] VITALS (17 sets, daily range): BP systolic 131–152; BP diastolic 64–81; PULSE 87–104; RESP 15–20; TEMP 98.1–98.9; O2SAT 90–100
[2016-05-21] MEDS: ENOXAPARIN SODIUM 150 MG/ML SYRINGE SQ SCH ×2 (02:45→15:02)
[2016-05-21] MEDS: fentaNYL DRIP 250 ML IV SCH ×3 (02:45→22:08)
[2016-05-21] MEDS: RESP: ALBUTEROL 2.5 MG/IPRATROPIUM 0.5 MG NEB (SCH) NEB ×4 (03:04→19:40)
[2016-05-21] MEDS: POTASSIUM CHLORIDE 25 MEQ EFFERVESCENT TAB TUBE SCH ×2 (05:47→14:50)
[2016-05-21] MEDS: INSULIN ASPART SUPPLEMENTAL SCALE SQ SCH ×4 (05:47→21:00)
[2016-05-21] MEDS: LEVOTHYROXINE SODIUM 50 MCG TAB PO SCH (05:47)
[2016-05-21 06:49] LABS: BICARBONATE 39.8 MEQ/L (21.0-32.0); MAGNESIUM 1.6 MG/DL (1.5-2.5); POTASSIUM 3.5 MEQ/L (3.5-5.1)
[2016-05-21] MEDS: cefTRIAXone INJ 2,000 MG in SODIUM CHLORIDE 0.9% INJ 100 ML IV SCH (07:31)
[2016-05-21] MEDS: predniSONE 5 MG/5 ML CUP PO SCH (07:31)
[2016-05-21] MEDS: METOCLOPRAMIDE HCL 10 MG/2 ML VIAL IV PUSH SCH ×2 (07:32→22:08)
[2016-05-21] MEDS: DILTIAZEM HCL 60 MG TAB PO SCH ×4 (07:32→22:08)
[2016-05-21] MEDS: FAMOTIDINE 20 MG TAB PO SCH ×2 (07:32→22:09)
[2016-05-21] MEDS: ATORVASTATIN 10 MG TAB PO SCH (07:32)
[2016-05-21] MEDS: FERROUS SULFATE 300 MG /5ML UDC PO SCH (07:32)
[2016-05-21] MEDS: FENOFIBRATE 48 MG TAB PO SCH (07:33)
[2016-05-21] MEDS: SERTRALINE HCL 50 MG TAB PO SCH (07:33)
[2016-05-21] MEDS: MONTELUKAST SODIUM 10 MG TAB PO SCH (07:33)
[2016-05-21] MEDS: SODIUM CHLORIDE 0.9% FLUSH 5 ML FLUSH FLUSH SCH ×2 (07:33→22:08)
[2016-05-21] MEDS: NYSTATIN 100,000 U/GM PWD 15 GM BTL TOPICAL SCH ×2 (07:35→22:09)
[2016-05-21] MEDS: MICONAZOLE NITRATE 2% CREAM 15 GM TOP SCH ×2 (07:35→22:10)
[2016-05-21] MEDS: CHLORHEXIDINE 0.12% (ORAL KIT) 15 ML CUP MT SCH ×2 (07:36→20:00)
[2016-05-21] MEDS: RESP: BUDESONIDE 0.5 MG/2 ML NEB NEB SCH ×2 (07:47→19:40)
[2016-05-21] MEDS: ALLOPURINOL 300 MG TAB PO SCH (07:50)
--- NOTE | 2016-05-21 09:48 | HHI.FPPN ---
Subjective Remarks No acute events overnight. Afebrile, BP 150/72, HR 88-102. This AM he says he feels much better and got a good night sleep. No pain, no CP/SOB. He feels his right arm continues to be more mobile. Diet yesterday advanced to liquids in addition to tube feeds which he has tolerated very well and has made him much happier. (Obed Glaser MD R1) Objective Vitals Vital Signs Date Time Temp Pulse Resp B/P Pulse Ox O2 Delivery O2 Flow Rate FiO2 05/21/16 08:00 40 05/21/16 08:00 98.6 96 15 148/71 90 05/21/16 08:00 96 05/21/16 07:58 90 Ventilator 40 05/21/16 07:58 90 40 05/21/16 06:00 102 05/21/16 04:00 40 05/21/16 04:00 98.5 88 20 131/64 97 05/21/16 04:00 95 40 05/21/16 04:00 88 05/21/16 02:00 90 05/21/16 00:51 92 40 05/21/16 00:00 98 05/21/16 00:00 98.9 98 20 150/75 94 05/21/16 00:00 40 05/20/16 22:00 96 05/20/16 20:00 40 05/20/16 20:00 103 05/20/16 20:00 99.4 103 23 147/78 100 05/20/16 19:55 93 40 05/20/16 18:00 100 05/20/16 16:00 98.7 100 18 133/70 91 05/20/16 16:00 100 05/20/16 16:00 40 05/20/16 15:46 97 40 05/20/16 14:00 103 05/20/16 13:35 92 40 05/20/16 12:00 112 05/20/16 12:00 98.8 112 17 139/66 91 05/20/16 12:00 40 05/20/16 10:25 93 40 05/20/16 10:00 106 I/O 05/20/16 05/20/16 05/20/16 05/21/16 05/21/16 05/21/16 07:00 15:00 23:00 07:00 15:00 23:00 Intake Total 1066 ml 898 ml 714 ml 605 ml Output Total 600 ml 275 ml 350 ml 1125 ml 0 ml Balance 466 ml 623 ml 364 ml -520 ml 0 ml Intake Oral 240 ml IV Total 622 ml 314 ml 240 ml 213 ml Tube Feeding 264 ml 284 ml 354 ml 272 ml Tube Irrigant 180 ml 60 ml Other 120 ml 120 ml Output Urine Total 600 ml 275 ml 350 ml 1125 ml Tube Feeding Residual Discard 0 ml 0 ml 0 ml # Bowel Movements 1 2 0 (Obed Glaser MD R1) Result Diagram: 05/20/16 1326 05/21/16 0530 Objective Remarks GENERAL: Morbidly obese. On mechanical ventilation, NG tube in place, awake and alert. SKIN: Warm and dry. No rashes or lesions. Ecchymosis on abdomen superior to umbilicus in area of SQ anticoagulant injections. HEAD: Normocephalic. Atraumatic. ENT: No nasal drainage. Tracheotomy site is clean and dry without drainage. CARDIOVASCULAR: Distant heart sounds. Tachycardic with regular rhythm; normal S1 /S2, no murmurs, gallops, or rubs. RESPIRATORY: On mechanical ventilation. CPAP with FiO2 40 and PEEP 12. Clear to auscultation bilaterally. No crackles or wheezes. GASTROINTESTINAL: Abdomen soft, obese, non-distended, non-tender. MUSCULOSKELETAL: Lower extremity edema. Decubitus ulcer prophylaxis boots in place. NEURO: Awake, alert. Able to speak in short sentences, voice hoarse with trach. Right arm with numbness/tingling, some loss of movement, improved per patient and exam from yesterday. Medications and IVs Current Medications Medications (Trade) Dose Ordered Sig/Per Route Start Time Stop Time Status Last Admin (Tylenol) 650 mg Q4H PRN PO 04/24/16 15:15 05/17/16 08:38 (NS Flush) 2 ml UNSCH PRN FLUSH 04/24/16 15:15 05/13/16 21:22 (NS Flush) 2 ml BID FLUSH 04/24/16 21:00 05/21/16 07:33 (Narcan Inj) 0.4 mg UNSCH PRN IV 04/24/16 15:15 (Zyloprim) 300 mg DAILY PO 04/25/16 09:00 05/21/16 07:50 (Lipitor) 10 mg DAILY PO 04/25/16 09:00 05/21/16 07:32 (Tricor) 48 mg DAILY PO 04/25/16 09:00 05/21/16 07:33 (Synthroid) 50 mcg DAILY@06 PO 04/25/16 06:00 05/21/16 05:47 (Micatin 2% Cream) 1 applic BID TOP 04/24/16 21:00 05/21/16 07:35 (Singulair) 10 mg DAILY PO 04/25/16 09:00 05/21/16 07:33 (Xarelto) 20 mg DAILY PO 04/25/16 09:00 Hold (Ambien) 5 mg HS PRN PO 04/24/16 15:15 Hold 04/25/16 19:40 (Symbicort 160-4.5 Inh) 2 puff BID INH 04/24/16 21:00 Hold 04/25/16 19:40 Miscellaneous Information Patient in critical care unit? Ass... Q361D XX 04/24/16 20:30 04/24/16 20:30 Chlorhexidine Gluconate 15 ml 15 ml BID@08,20 MT 04/25/16 08:00 05/21/16 07:36 (fentaNYL DRIP) 250 ml @ 0 mls/hr TITRATE IV 04/24/16 22:45 05/21/16 02:45 (Zofran Inj) 4 mg Q6HR PRN IV PUSH 04/25/16 21:00 05/19/16 22:12 Levothyroxine Sodium 25 mcg 25 mcg DAILY@06 IV PUSH 04/26/16 09:00 Hold 05/13/16 06:06 Potassium Chloride 100 ml @ 50 mls/hr Q2H PRN IV 04/27/16 08:15 05/19/16 22:13 (KCl 20 Meq Premix Inj) 100 ml @ 50 mls/hr Q2H PRN IV 04/27/16 08:15 05/17/16 05:25 Potassium Chloride 40 meq 40 meq UNSCH PRN PO/TUBE 04/27/16 08:15 05/16/16 05:33 Potassium Chloride 100 ml @ 25 mls/hr UNSCH PRN IV 04/27/16 08:15 05/13/16 01:24 Potassium Chloride 100 ml @ 50 mls/hr Q2H PRN IV 04/27/16 08:15 05/11/16 04:58 (Magnesium Sulfate Inj/NS Inj) 100 ml @ 50 mls/hr UNSCH PRN IV 04/27/16 08:15 Magnesium Oxide 800 mg 800 mg UNSCH PRN PO 04/27/16 08:15 05/16/16 05:33 (Magnesium Sulfate Inj/NS Inj) 100 ml @ 50 mls/hr UNSCH PRN IV 04/27/16 08:15 05/17/16 05:52 Potassium Phosphate 2000 mg 2,000 mg Q4H PRN PO 04/27/16 08:15 05/20/16 12:11 (Sodium Phosphate Inj/NS 250 ml Inj) 250 ml @ 42 mls/hr UNSCH PRN IV 04/27/16 08:15 (KCl 40 Meq/30 ml Liq) 40 meq UNSCH PRN PO/TUBE 04/27/16 08:15 05/15/16 08:15 Potassium Phosphate 2000 mg 2,000 mg UNSCH PRN PO/TUBE 04/27/16 08:15 (Potassium Phosphate Inj/NS 250 ml Inj) 260 ml @ 42 mls/hr UNSCH PRN IV 04/27/16 08:15 05/13/16 23:30 (Benadryl Inj) 25 mg Q4H PRN IV PUSH 04/27/16 08:30 (Elizabeth-Colace) 1 tab BID PRN PO 04/27/16 08:30 (Lovenox Inj) 150 mg Q12H SQ 05/01/16 16:00 05/21/16 02:45 (D50w (Vial) Inj) 25 ml UNSCH PRN IV PUSH 05/05/16 12:15 Hold (Glucagon Inj) 1 mg UNSCH PRN OTHER 05/05/16 12:15 Hold (NovoLIN R SUPPLEMENTAL SCALE) 1 Q4HR SQ 05/05/16 12:00 Hold 05/15/16 16:02 (Reglan Inj) 10 mg Q12HR IV PUSH 05/06/16 16:00 05/21/16 07:32 (Mycostatin Powder) 1 applic BID TOPICAL 05/06/16 21:00 05/21/16 07:35 (predniSONE LIQ) 40 mg Taper DAILY PO 05/10/16 09:00 06/03/16 08:59 05/21/16 07:31 Famotidine 20 mg 20 mg Q12HR PO 05/10/16 09:00 05/21/16 07:32 (Rocephin Inj/NS Inj) 100 ml @ 200 mls/hr Q24H IV 05/12/16 08:00 05/25/16 23:00 05/21/16 07:31 (Cardizem) 60 mg QID PO 05/13/16 09:00 05/21/16 07:32 (Zoloft) 50 mg DAILY PO 05/15/16 09:00 05/21/16 07:33 (Ferrous Sulfate Liq) 300 mg DAILY PO 05/20/16 12:00 05/21/16 07:32 (K-Lyte Cl Eff) 25 meq Q8H TUBE 05/20/16 22:00 05/21/16 14:01 05/21/16 05:47 (Bumetanide Inj) 1 mg Q12H IV PUSH 05/20/16 22:00 05/20/16 22:33 (Obed Glaser MD R1) Date of Insertion: Apr 24, 2016 (Obed Glaser MD R1) Date of Insertion: Apr 26, 2016 Line: PICC Side: Right (Obed Glaser MD R1) A/P Assessment and Plan Assessment and Plan Acute hypercapnic/hypoxemic respiratory failure Healthcare associated pneumonia with MDR Pseudomonas UTI with proteus mirabilis Sepsis CHF exacerbation CO2 narcosis Chronic Respiratory Failure s/p Tracheostomy 4 years ago (Shiley 6.0 Proximal XLT) COPD/obesity hypoventilation syndrome Morbid Obesity BMI 66 History of pulmonary embolism 4 years ago Chronic atrial fibrillation Anxiety CHF (Echo 2013 EF 40-45%; ECHO 08/2015 showing grossly normal systolic function) Hypertension Hypothyroidism PLAN NEURO: answering questions appropriately, awake and alert Anxiety -Wean sedatives as tolerated while maintaining synchrony with vent - Started Sertraline for depression/anxiety, reports better moods RESP: CPAP trial with PEEP 12, FiO2 40 Acute hypercapnic/hypoxemic respiratory failure Healthcare associated pneumonia Chronic Respiratory Failure s/p Tracheostomy 4 years ago COPD/obesity hypoventilation syndrome History of pulmonary embolism 4 years ago Pulmonary edema -Continue mechanical ventilation, currently CPAP trial. Wean to keep SaO2 >88% -Healthcare associated pneumonia (MDRO) is being treated with IV Rocephin ( - ). IV Diflucan for heather UTI. ID following -Sputum culture revealed Pseudomonas MDR, providencia stuartii -DuoNeb every 4 hours scheduled -Pulmicort BID (home med) -Continue prednisone 50 mg with taper -Therapeutic Lovenox 150 mg every 12 hours CV: CHF exacerbation Pulmonary edema Chronic atrial fibrillation -Discontinue Lasix due to hypokalemia, monitor I's and O's and for fluid overload. -A. fib rate controlled -Therapeutic Lovenox 150 mg twice a day GI: Super morbid obesity with BMI of 68 -Tube feeds Glucerna, having vomiting this morning. Getting Reglan. -Pepcid for GI prophylaxis -SSI per ICU protocol - Significant diarrhea, get c.diff, hold free water due to hyponatremia/ hypochloremia. - Hgb decreasing, etiology unclear, will get hemoccult. : -Monitor potassium, phosphorus and magnesium. -Potassium improved, continue replacement protocol - Add free water, NaCl improved. - Hold Lasix -Monitor renal function -Milan catheter -Strict I&O ID: Healthcare associated pneumonia Sepsis MDRO Possible cellulitis right arm and fast Leukocytosis -IV rocephin (05/07 - ) for 14 days to cover Proteus and Providencia, colistin nebs discontinued, Zyvox for cellulitis discontinued, Diflucan discontinued -Blood urine and blood culture NGTD. -Wound culture Pseudomonas MDR -Sputum culture-Pseudomonas MDR -ID consulted, follow-up recommendations -Blood cx from 05/03 negative. Urine culture positive for proteus mirabilis. HEME: History of PE on chronic anticoagulation with Xarelto Leukocytosis -Monitor CBC, CMP, coags -Xarelto for PE 4 yrs ago. -Hold Xarelto. -Changed to Lovenox 150 mg twice a day - Hgb down to 7.0, been trending down. Will get Hemoccult, be conservative with transfusion, repeat hgb this afternoon to monitor. ENDO: Hypothyroidism -Electrolyte replacement protocol -Continue levothyroxine 25 mcgs IV daily - Prednisone 50 mg taper. - Insulin held overnight for low potassium restart sliding scale. PROPH: -Bilateral lower extremity SCDs. Lovenox DVT prophylaxis. IV Protonix for GI prophylaxis LINES: - PICC line Discharge Planning Patient will need to be weaned from mechanical ventilation with stable clinical status. Hopeful for patient to be able to return to long-term rehab facility. If he qualifies can consider halfway vent facility depending on how he does. ( Obed Glaser MD R1) Attending Attestation Patient seen and examined. Discussed with Dr. Glaser. Agree with assessment and plan as documented. (Darryl Wright Jr., MD) Problem List: (1) On mechanically assisted ventilation Status: Acute Plan: Critical care actively managing acute hypercapnic and hypoxemic respiratory failure and HCAP at this time. He has obesity hypoventilation and halfway the only solution is to lose 100 lbs or so. He may be able to get gastric banding/bypass at some point though he is definitely too sick right now. Started discussion about this 05/17 but will also check with case management to see his past Psychiatric history or whether his mother can influence him to take the steps necessary to save his life. Today seemed much more Patient placed on mechanical ventilation on 04/24, FiO2 now 40% with PEEP of 12 S/p urgent/emergent trach exchange 05/02 due to acute hypoxemia and large cuff leak S/p course of solumedrol Continue to taper PO prednisone (currently 40 mg PO daily) until 06/03 (2) HCAP (healthcare-associated pneumonia) Status: Acute Plan: Repeat ABG on 04/26 showed improvement with CO2 56 with pH 7.40 05/01 BCXs no growth (final) 05/03 BCx no growth (final) 05/04 BCx no growth (final) CXR 04/29 showing stable bibasilar consolidative infiltrates 04/30 CXR shows bilateral airspace disease greater in the right lower lobe 05/05 CXR showing improved aeration bilaterally 04/27 Sputum culture growing resistant pseudomonas 05/04 repeat sputum culture munoz-sensitive Providencia stuartii 05/05 proteus mirabilis 05/10 no fungal or bacterial growth Antibiotic History Zosyn 4.5gm IV q6h (04/24 - 04/29) Levaquin 750mg IV q24h (04/24-04/30) Zerbaxa 1.5 g IV q8h (04/29 - 05/07) Vancomycin IV (04/24 - 05/06) Ceftriaxone IV (05/07 - 05/25) Linezolid 600 mg PO BID (05/06 - 05/13) Plan - Infectious Disease consulted, appreciate recs * Continue Ceftriaxone 2 g IV Q24H, end date 05/25 - Duonebs q2h (3) Yeast UTI Status: Resolved Plan: 05/01 Urine CX growing heather albicans 05/05 repeat UA with large LE, negative nitrite, 182 WBCs; culture grew Proteus Mirabilis Completed course of Diflucan (4) Cellulitis of chest wall Status: Resolved Plan: Resolved - Complete course of linezolid 600 mg PO BID (05/06-05/13) per ID recs (5) CHF (congestive heart failure) Status: Chronic Plan: Last ECHO 09/18/2015 showing a grossly normal systolic function with no definitive EF as it was difficult to assess, ECHO on 05/2014 with EF of 40-45% with mildly dilated left atrium 04/25 ECHO was limited due to poor image quality, EF could not be adequately estimated. Systolic function appears to be grossly normal. BNP on admission 419, repeat BNP 151. suspect cardiac problems from his hypoventilation. Critical care actively managing diuresis - Lasix drip discontinued - Bumex Discontinued - Completed 3 days of acetazolamide (6) Atrial fibrillation Status: Chronic Plan: Last EKG in sinus rhythm Tachycardic but regular on exam Home dose of Xarelto 20 mg po daily has been held. Currently on Lovenox 150mg SQ Q12H wdw senior cognos developer to determine if therapeutic dose Lovenox still necessary (7) Depression Status: Acute Plan: Likely chronic and due to prolonged illness Has felt much more positive since titrating sertraline * Sertraline 50 mg PO daily * Will continue to titrate upward based on symptoms, feels very positive at present (8) Tracheostomy present Status: Chronic Plan: S/p urgent/emergent trach exchange 05/02 due to acute hypoxemia and large cuff leak Has been stable since procedure (9) HTN (hypertension) Status: Chronic Plan: BPs stable Hold home BP medications (10) Morbid obesity with BMI of 60.0-69.9, adult Status: Chronic Plan: Madisonian. obesity hypoventilation syndrome causes his respiratory problems. Continue Zoloft 50 mg and will increase based on symptoms. prison plan for bariatric surgery, will begin discussion and coordination once more medically stable (11) Hypothyroidism Status: Chronic Plan: Synthroid 25 mcg IV daily (12) Nutrition, metabolism, and development symptoms Status: Acute Plan: Fluids: none Electrolytes: Monitor and replete when necessary per protocol Nutrition: NG tube, tube feeds with Glucerna 10ml/hr, his glucerna does not have quite enough K so he needs more K daily plus he has loose stools as he is on tube feeds and probably loses more K that way. will continue to replace DVT PPx: Therapeutic Lovenox 150mg subq q12h Glucose: Insulin medium dose sliding scale to control blood sugar, not requiring insulin at present; currently stable around 100-150 (Obed Glaser MD R1) Problem Qualifiers (1) CHF (congestive heart failure): Qualified Code: I50.9 - Acute on chronic congestive heart failure, unspecified congestive heart failure type (2) Atrial fibrillation: Qualified Code: I48.2 - Chronic atrial fibrillation (3) Depression: Qualified Code: F32.9 - Reactive depression (4) HTN (hypertension): Qualified Code: I10 - Essential hypertension (5) Hypothyroidism: Qualified Code: E03.9 - Hypothyroidism, unspecified type Obed Glaser MD R1 May 21, 2016 09:48 Darryl Wright Jr., MD May 21, 2016 17:28
[2016-05-21] MEDS: BUMETANIDE INJ 1 MG/4 ML VIAL IV PUSH SCH ×2 (10:22→22:08)
--- NOTE | 2016-05-21 10:43 | HHI.IDPN ---
Subjective Subjective Remarks Notes reviewed D/W RN Temps ok BP ok Tolerating CPAP trials, rests on the vent at night Not SOB Antibiotics Rocephin Lines PICC RUE Past Medical History Chronic Respiratory Failure s/p Tracheostomy 4 years ago Morbid Obesity w/ BMI 67.6 Atrial fibrillation Pulmonary embolism 4 years ago Anxiety CHF (Echo 06/07/2014 w/ EF 40-45%; ECHO 08/2015 showing a grossly normal systolic function) HTN Hypothyroidism Past Surgical History Tracheostomy Tonsillectomy Allergies: Coded Allergies: *MDRO Multi-Drug Resistant Organism (Verified Adverse Reaction, Unknown, 05/08/16) XDR Pseudomonas aeruginosa (sputum) - 09/18/15; (sputum & wound) - 04/27/16 Objective . Vital Signs Date Time Temp Pulse Resp B/P Pulse Ox O2 Delivery O2 Flow Rate FiO2 05/21/16 10:00 104 05/21/16 08:00 40 05/21/16 08:00 98.6 96 15 148/71 90 05/21/16 08:00 96 05/21/16 07:58 90 Ventilator 40 05/21/16 07:58 90 40 05/21/16 06:00 102 05/21/16 04:00 40 05/21/16 04:00 98.5 88 20 131/64 97 05/21/16 04:00 95 40 05/21/16 04:00 88 05/21/16 02:00 90 05/21/16 00:51 92 40 05/21/16 00:00 98 05/21/16 00:00 98.9 98 20 150/75 94 05/21/16 00:00 40 05/20/16 22:00 96 05/20/16 20:00 40 05/20/16 20:00 103 05/20/16 20:00 99.4 103 23 147/78 100 05/20/16 19:55 93 40 05/20/16 18:00 100 05/20/16 16:00 98.7 100 18 133/70 91 05/20/16 16:00 100 05/20/16 16:00 40 05/20/16 15:46 97 40 05/20/16 14:00 103 05/20/16 13:35 92 40 05/20/16 12:00 112 05/20/16 12:00 98.8 112 17 139/66 91 05/20/16 12:00 40 05/20/16 05/20/16 05/21/16 15:00 23:00 07:00 Intake Total 898 ml 714 ml 605 ml Output Total 275 ml 350 ml 1125 ml Balance 623 ml 364 ml -520 ml Intake Oral 240 ml IV Total 314 ml 240 ml 213 ml Tube Feeding 284 ml 354 ml 272 ml Tube Irrigant 60 ml Other 120 ml 120 ml Output Urine Total 275 ml 350 ml 1125 ml Tube Feeding Residual Discard 0 ml 0 ml # Bowel Movements 2 0 . Laboratory Tests Test 05/19/16 05/20/16 05/20/16 12:05 06:10 13:26 Hemoglobin 7.3 GM/DL 7.0 GM/DL 7.2 GM/DL Hematocrit 23.2 % 22.2 % 23.3 % White Blood Count 10.2 TH/MM3 Red Blood Count 2.83 MIL/MM3 Mean Corpuscular Volume 78.5 FL Mean Corpuscular Hemoglobin 24.8 PG Mean Corpuscular Hemoglobin 31.6 % Concent Red Cell Distribution Width 26.0 % Platelet Count 150 TH/MM3 Mean Platelet Volume 7.8 FL Neutrophils (%) (Auto) 84.2 % Lymphocytes (%) (Auto) 9.7 % Monocytes (%) (Auto) 4.0 % Eosinophils (%) (Auto) 1.6 % Basophils (%) (Auto) 0.5 % Neutrophils # (Auto) 8.6 TH/MM3 Lymphocytes # (Auto) 1.0 TH/MM3 Monocytes # (Auto) 0.4 TH/MM3 Eosinophils # (Auto) 0.2 TH/MM3 Basophils # (Auto) 0.0 TH/MM3 CBC Comment AUTO DIFF Differential Total Cells 100 Counted Neutrophils % (Manual) 74 % Band Neutrophils % 11 % Lymphocytes % 10 % Monocytes % 1 % Eosinophils % 4 % Neutrophils # (Manual) 8.7 TH/MM3 Nucleated Red Blood Cells 1 /100 WBC Differential Comment FINAL DIFF MANUAL Platelet Estimate NORMAL Platelet Morphology Comment NORMAL Polychromasia 3.2 % Stomatocytes 1+ Laboratory Tests Test 05/19/16 05/20/16 05/21/16 20:27 06:10 05:30 Potassium Level 3.1 MEQ/L 3.8 MEQ/L 3.5 MEQ/L Phosphorus Level 3.5 MG/DL 1.9 MG/DL Sodium Level 135 MEQ/L 134 MEQ/L Chloride Level 89 MEQ/L 89 MEQ/L Carbon Dioxide Level 38.3 MEQ/L 39.8 MEQ/L Anion Gap 8 MEQ/L 5 MEQ/L Blood Urea Nitrogen 13 MG/DL 13 MG/DL Creatinine 0.24 MG/DL 0.21 MG/DL Estimat Glomerular Filtration 450 ML/MIN 524 ML/MIN Rate Random Glucose 101 MG/DL 99 MG/DL Calcium Level 8.5 MG/DL 8.8 MG/DL Magnesium Level 1.6 MG/DL 1.6 MG/DL Iron Level 32 MCG/DL Total Iron Binding Capacity 297 MCG/DL Percent Iron Saturation 10.8 % Imaging Chest X-Ray 05/20/16 0000 Signed Impressions: Service Date/Time: Friday, May 20, 2016 03:21 - CONCLUSION: Persistent mid and lower lung areas of consolidation or atelectasis being worse in the right. There has been mild improvement. Garcia Lujan MD Chest X-Ray 05/16/16 0600 Signed Impressions: Service Date/Time: April 03:21 - CONCLUSION: 1. Slight improvement in bilateral airspace disease over the last day. Horacio Gupta MD Chest X-Ray 05/15/16 0600 Signed Impressions: Service Date/Time: Sunday, May 15, 2016 04:31 - CONCLUSION: 1. Slight increase in airspace disease since May 13. Differential diagnosis includes pulmonary edema. Support apparatus unchanged. Horacio Gupta MD Chest X-Ray 05/13/16 0600 Signed Impressions: Service Date/Time: Friday, May 13, 2016 03:26 - CONCLUSION: 1. Stable exam compared with May 12 with bilateral mostly basilar airspace disease. Horacio Gupta MD Chest X-Ray 05/10/16 0600 Signed Impressions: Service Date/Time: Tuesday, May 10, 2016 02:45 - CONCLUSION: Worsening right lower lobe infiltrate. Jeremiah Walton Jr., MD Chest X-Ray 05/09/16 0600 Signed Impressions: Service Date/Time: April 02:52 - CONCLUSION: No significant change has occurred. Bill Zavala MD Chest X-Ray 05/08/16 0600 Signed Impressions: Service Date/Time: Sunday, May 08, 2016 04:01 - CONCLUSION: No significant change has occurred. Bill Zavala MD Chest X-Ray 05/05/16 0600 Signed Impressions: Service Date/Time: Thursday, May 05, 2016 01:56 - CONCLUSION: Improved aeration bilaterally particularly in the left upper lobe. Tube and catheter are stable. Amador Brock MD Chest X-Ray 05/03/16 0000 Signed Impressions: Service Date/Time: Tuesday, May 03, 2016 06:40 - CONCLUSION: Increasing bilateral diffuse pulmonary infiltrates compared to the prior study. Lázaro Frankel MD Upper Extremity Ultrasound 05/02/16 0000 Signed Impressions: Service Date/Time: April 20:51 - CONCLUSION: No DVT. Garcia Lujan MD Abdomen X-Ray 04/29/16 0000 Signed Impressions: Service Date/Time: Friday, April 29, 2016 07:12 - CONCLUSION: Suspect Dobbhoff tube in the distal stomach. Garcia Lujan MD Physical Exam GENERAL: Awake and alert, on CPAP, comfortable SKIN: Warm and moist. No generalized rash. HEENT: [place] conjunctivae. No scleral icterus. Moist mucosa. NECK: Short and obese, has trach, site ok. Supple, no meningeal signs. CARDIOVASCULAR: Regular rate and rhythm. Distant heart sounds. RESPIRATORY: Decreased BS bilaterally. GASTROINTESTINAL: Abdomen soft, morbidly obese, not tender, not distended. MUSCULOSKELETAL: Extremities without clubbing, cyanosis. Has mild pitting edema. NEUROLOGICAL: Awake and following, responding LINE: PICC in RUST, site ok, : [place] in place, urine looks clear Assessment & Plan Remarks IMPRESSION Chronic respiratory failure, has new trach, has HCAP - C/S with MDR PSAE Intermittent problem with desaturation MDR PSAE PNA, S/P Rx New HCAP, C/S Providencia - increasing consolidation R base, ?plugging UTI, with Proteus Fevers, better Leukocytosis, due to PNA, and partly due to steroids - better Cellulitis in his RUE and R chest - resolved Morbid obesity Hx PE Intermittent vomiting, not tolerating TF, ileus? RECOMMENDATION Continue Rocephin - plan to give till 05/25 Monitor temps Monitor progress Weaning per CCM Seems clinically stable from ID standpoint I will see patient prn Please call if with any new ID issue or question D/W Dana Rollins MD May 21, 2016 10:43
[2016-05-21] MEDS: COLLAGENASE OINT 30 GM TUBE TOP SCH (14:50)
--- NOTE | 2016-05-21 22:16 | HHI.CCPN ---
Subjective Remarks/Hospital Course 31 year old morbidly obese (BMI 68) male with chronic respiratory failure s/p tracheostomy 4 years ago, atrial fibrillation and pulmonary embolism on Xarelto , COPD, CHF and h/o HTN. He presented from [facility] with low oxygen saturation apparently his oxygen saturation was 82% on RA. He was placed back on 6L of oxygen via his trach mask and given a breathing treatment, initially improved however he started drifting back to low 80s again. Chest x-ray showed bibasilar infiltrates and pulmonary edema. Patient was admitted to the [facility] and was started on IV steroids IV vancomycin and Zosyn and Levaquin for healthcare associated pneumonia. After starting ACV, patient was more awake but there was a significant amount of air leak around his tracheostomy. Patient has had a Shiley 6.0 Proximal XLT, but the pilot steam yacht balloon had been cut off. 05/02 the patient became acutely hypoxemic with a large cuff leak, underwent emergency trach exchange at bedside by Dr. Macias. FiO2 65% PEEP 14 05/13 Patient is on ventilator via trach, on Fentanyl infusion however he is awake and alert. On PRVC with FIO2 40%. Afebrile. 05/14 No acute events overnight. Tmax 99.8. Patient is awake, alert on ventilator via trach still requiring increase O2. On PRVC with PEEP: 10 and FIO2 70%. 05/15 patient acutely desaturated after he was found. Saturation went down to 70% on 100% oxygen. Bag and mask ventilation carried out, with eventual improvement on oxygen saturation to 85%. Patient was placed on PC/AC mode of ventilation, with PEEP of 15 and instructed to pressure of 30. Eventually oxygen saturation improved to 95%. Lasix him today as the chest x-ray from today shows increasing bilateral infiltrate and pulmonary edema. Also sputum culture will be sent 05/16 Patient is on Fentanyl and Diprivan infusion but awake and alert. Afebrile. On PC/AC with PEEP:15, IP: 22, IT:1.3 and FIO2 50% 05/17 Patient is off Diprivan and remains on Fentanyl infusion for sedation. On PC/AC with PEEP: down 10 and FIO2 40%. Afebrile. 05/18 Patient remains on ventilator via trach on PC/AC with PEEP:12, FIO2 40%, IP:22, IT:1.0. On Fentanyl infusion 05/19 No acute events overnight. On Fentanyl infusion but awake and alert. Afebrile. 05/20 Tolerating C Pap 17/12 FIO2 40, sats 98%. RSBI in 20s, appears can be weaned further. Afebrile. Speech therapy evaluated and ok for regular diet. Starting with full liquid. Subjective: 05/21 Will wean PSV to 15/10. Tolerated full liquids, will advance to regular diet per speech recs. Objective Vital Signs Date Time Temp Pulse Resp B/P Pulse Ox O2 Delivery O2 Flow Rate FiO2 05/21/16 20:17 93 40 05/21/16 18:00 87 05/21/16 16:00 98.5 17 150/76 05/21/16 07:58 Ventilator Intake and Output 05/20/16 05/20/16 05/21/16 08:00 16:00 00:00 Intake Total 1066 ml 898 ml 714 ml Output Total 600.0 ml 275 ml 350 ml Balance 466.0 ml 623 ml 364 ml Result Diagram: 05/20/16 1326 05/21/16 0530 Imaging Last Impressions Chest X-Ray 05/16/16 0600 Signed Impressions: Service Date/Time: April 03:21 - CONCLUSION: 1. Slight improvement in bilateral airspace disease over the last day. Horacio Gupta MD Upper Extremity Ultrasound 05/02/16 0000 Signed Impressions: Service Date/Time: April 20:51 - CONCLUSION: No DVT. Garcia Lujan MD Abdomen X-Ray 04/29/16 0000 Signed Impressions: Service Date/Time: Friday, April 29, 2016 07:12 - CONCLUSION: Suspect Dobbhoff tube in the distal stomach. Garcia Lujan MD Objective Remarks GENERAL: Patient is 31yo on ventilator via trach, awake and follows commands. Morbid obesity SKIN: Warm and dry. HEAD: Normocephalic.NGT in place with tube feeds running. EYES: No scleral icterus. No injection or drainage. NECK: Supple, trachea midline. Shiley 6.0 Proximal XLT, (new trach placed ) CARDIOVASCULAR:Tachycardic without murmurs, gallops, or rubs. RESPIRATORY: Breath sounds equal bilaterally. No accessory muscle use. GASTROINTESTINAL: Abdomen soft, obese,, non-tender, nondistended. MUSCULOSKELETAL: No cyanosis, or edema. Pedal edema. Wound on lateral aspect of right lower leg above lateral malleolus. Neuro: Awake and alert. Moves all extremities without focal deficit. Procedures Shiley 6.0 XLT tracheostomy exchange under visual direction by general surgery and with GlideScope, by anesthesiologist. Date of Insertion: Apr 24, 2016 Date of Insertion: Apr 26, 2016 Line: PICC Side: Right A/P Assessment and Plan ASSESSMENT Acute hypercapnic and hypoxemic respiratory failure Acute worsening of hypoxia due to lung de-recruitment 05/15/16 Healthcare associated pneumonia MDR Pseudomonas Sepsis/persistent fever CHF exacerbation CO2 narcosis Tracheostomy pilot steam yacht balloon damage -status post exchange with new Shiley 6.0 Proximal XLT 05/02/16 Chronic Respiratory Failure s/p Tracheostomy 4 years ago (Shiley 6.0 Proximal XLT) COPD/obesity hypoventilation syndrome Morbid Obesity BMI 67 History of pulmonary embolism 4 years ago Chronic atrial fibrillation Anxiety CHF (Echo 2013 EF 40-45%; ECHO 08/2015 showing a grossly normal systolic function) Hypertension Hypothyroidism PLAN NEURO: CO2 narcosis - resolved Anxiety -On Fentanyl infusion for sedation, ventilator synchrony -Zolfot 50 daily RESP: Acute hypercapnic and hypoxemic respiratory failure Acute lung derecruitment today 05/15 Healthcare associated pneumonia Tracheostomy pilot steam yacht balloon damage (Shiley 6.0 Proximal XLT) s/p new trach placement 05/02 Chronic Respiratory Failure s/p Tracheostomy 4 years ago COPD/obesity hypoventilation syndrome History of pulmonary embolism 4 years ago Leukocytosis Pulmonary edema - Wean PSV 15/10 40% and continue weaning as tolerated. - s/p Bronchoscopy 05/11 -follow up on BAL results-negative - DuoNeb every 6 hours scheduled, q2 prn. - Pulmicort BID (home med) -Continue singulair 10 mg po dailyi - Continue prednisone taper - Therapeutic Lovenox 150 mg every 12 hours CV: CHF exacerbation Pulmonary edema Paroxysmal atrial fibrillation (chronic) Hyperlipidemia - Monitor HR and BP keep MAP>65mmHg - on Cardizem 60mg QID -Continue Lipitor 10 g by mouth daily. Continue TriCor 40 mg by mouth daily - Therapeutic Lovenox 150 mg twice a day GI: Super morbid obesity with BMI of 68 D/c NGT and tube feeds. Regular diet thin liquids per speech recs. Having BMs on bowel regimen. - On Pepcid 20mg BID FEN/RENAL: Hypokalemia - Monitor renal function , I/O. electrolytes replacement per protocol. - Bumex 1 mg IV q12 with KCL with KDUR 40 q12 ID: Healthcare associated pneumonia Sepsis MDRO Possible cellulitis right arm Leukocytosis...trending down - Continue abx per ID ( Rocephin) till 05/25 -Urine cx: Proteus Mirabilis 05/05 -Sputum cx: Providencia 05/05 -Wound cx: 05/13 Proteus, Pseudomonas, Group D Enterococcus - Wound culture Pseudomonas MDR 04/27 - Sputum culture-Pseudomonas MDR- 04/27 - Bronchoscopy and re-culture 05/10 follow up on BAL results-neg to date - Follow up on sputum cx from 05/15- NGTD HEME: History of PE on chronic anticoagulation with Xarelto Anemia, iron deficiency -Monitor CBC, CMP, coags -Xarelto for PE 4 yrs ago. -Xarelto.held, On Lovenox 150 mg twice a day -Ferrous sulfate 300 daily. ENDO: Hypothyroidism -On SSI ( Medium scale) -Continue levothyroxine 50 per tube daily PROPH: -Bilateral lower extremity SCDs. Lovenox DVT therapeutic dose. IV Protonix for GI prophylaxis LINES: - PICC line RUE- No DVT on US Discussed with family medicine team. Out of bed with assistance. PT out of bed with vent. CCT 30 minutes exclusive of separately billable procedures. Sheila Solis MD May 21, 2016 22:16
[2016-05-22] VITALS (15 sets, daily range): BP systolic 134–160; BP diastolic 68–77; PULSE 84–101; RESP 11–19; TEMP 97.5–98.4; O2SAT 90–100
[2016-05-22] MEDS: RESP: ALBUTEROL 2.5 MG/IPRATROPIUM 0.5 MG NEB (SCH) NEB ×2 (03:02→07:32)
[2016-05-22] MEDS: LEVOTHYROXINE SODIUM 50 MCG TAB PO SCH (05:34)
[2016-05-22] MEDS: ENOXAPARIN SODIUM 150 MG/ML SYRINGE SQ SCH ×2 (05:34→17:46)
[2016-05-22] MEDS: INSULIN ASPART SUPPLEMENTAL SCALE SQ SCH ×4 (05:34→21:00)
[2016-05-22] MEDS: RESP: BUDESONIDE 0.5 MG/2 ML NEB NEB SCH ×2 (07:32→19:32)
[2016-05-22] MEDS: CHLORHEXIDINE 0.12% (ORAL KIT) 15 ML CUP MT SCH ×2 (08:00→22:04)
--- NOTE | 2016-05-22 08:51 | HHI.FPPN ---
Subjective Remarks No acute events overnight. He did well overnight according to patient and nurse. No complaints this morning. He continues to have difficulty moving his right arm, and says it feels like it is asleep. PT is working with him and he reports increased movement, but still has numbness and tingling in that arm. We attempted to reposition him as it seems like he tends to lie on that arm. Doing well with heart healthy diet. Breathing subjectively improved. No chest pain. Objective Vitals Vital Signs Date Time Temp Pulse Resp B/P Pulse Ox O2 Delivery O2 Flow Rate FiO2 05/22/16 07:34 97 40 05/22/16 06:00 92 05/22/16 04:00 88 05/22/16 04:00 40 05/22/16 04:00 96 40 05/22/16 04:00 98.4 84 11 134/70 94 05/22/16 02:00 84 05/22/16 00:14 94 40 05/22/16 00:00 98.2 90 13 150/77 94 05/22/16 00:00 40 05/22/16 00:00 90 05/21/16 22:00 89 05/21/16 20:17 93 40 05/21/16 20:00 98.1 89 20 142/74 93 05/21/16 20:00 89 05/21/16 20:00 40 05/21/16 18:00 87 05/21/16 16:07 100 40 05/21/16 16:00 40 05/21/16 16:00 96 05/21/16 16:00 98.5 96 17 150/76 91 05/21/16 14:00 95 05/21/16 12:09 94 40 05/21/16 12:00 98.4 93 19 152/81 100 05/21/16 12:00 40 05/21/16 12:00 93 05/21/16 10:00 104 I/O 05/21/16 05/21/16 05/21/16 05/22/16 05/22/16 05/22/16 07:00 15:00 23:00 07:00 15:00 23:00 Intake Total 605 ml 738 ml 331 ml 231 ml Output Total 1125 ml 1125 ml 750 ml 650 ml Balance -520 ml -387 ml -419 ml -419 ml Intake Oral 240 ml 60 ml 6 ml IV Total 213 ml 294 ml 271 ml 225 ml Tube Feeding 272 ml 144 ml Other 120 ml 60 ml Output Urine Total 1125 ml 1125 ml 750 ml 650 ml Tube Feeding Residual Discard 0 ml # Bowel Movements 0 0 Result Diagram: 05/20/16 1326 05/21/16 0530 Objective Remarks GENERAL: Morbidly obese. On mechanical ventilation, awake and alert SKIN: Warm and dry. No rashes or lesions. Ecchymosis on abdomen superior to umbilicus in area of SQ anticoagulant injections. HEAD: Normocephalic. Atraumatic. ENT: No nasal drainage. Tracheotomy site is clean and dry without drainage. CARDIOVASCULAR: Distant heart sounds. Tachycardic with regular rhythm; normal S1 /S2, no murmurs, gallops, or rubs. RESPIRATORY: On mechanical ventilation. CPAP with FiO2 40 and PEEP 10 (12 yesterday). Clear to auscultation bilaterally. No crackles or wheezes. GASTROINTESTINAL: Abdomen soft, obese, non-distended, non-tender. MUSCULOSKELETAL: Lower extremity edema. Decubitus ulcer prophylaxis boots in place. NEURO: Awake, alert. Able to speak in short sentences, voice hoarse with trach. Right arm with numbness/tingling, some loss of movement, improved per patient and exam. 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 Date of Insertion: Apr 24, 2016 Date of Insertion: Apr 26, 2016 Line: PICC Side: Right A/P Assessment and Plan Assessment and Plan Acute hypercapnic/hypoxemic respiratory failure Healthcare associated pneumonia with MDR Pseudomonas UTI with proteus mirabilis Sepsis CHF exacerbation CO2 narcosis Chronic Respiratory Failure s/p Tracheostomy 4 years ago (Shiley 6.0 Proximal XLT) COPD/obesity hypoventilation syndrome Morbid Obesity BMI 66 History of pulmonary embolism 4 years ago Chronic atrial fibrillation Anxiety CHF (Echo 2013 EF 40-45%; ECHO 08/2015 showing grossly normal systolic function) Hypertension Hypothyroidism PLAN NEURO: answering questions appropriately, awake and alert Anxiety -Wean sedatives as tolerated while maintaining synchrony with vent - Sertraline for depression/anxiety, reports better moods RESP: CPAP trial with PEEP 10, FiO2 40 Acute hypercapnic/hypoxemic respiratory failure Healthcare associated pneumonia Chronic Respiratory Failure s/p Tracheostomy 4 years ago COPD/obesity hypoventilation syndrome History of pulmonary embolism 4 years ago Pulmonary edema -Continue mechanical ventilation, currently CPAP trial. Wean to keep SaO2 >88% -Healthcare associated pneumonia (MDRO) is being treated with IV Rocephin ( - ). IV Diflucan for heather UTI. ID following -Sputum culture revealed Pseudomonas MDR, providencia stuartii -DuoNeb every 4 hours scheduled -Pulmicort BID (home med) -Continue prednisone 40 mg with taper -Therapeutic Lovenox 150 mg every 12 hours CV: CHF exacerbation Pulmonary edema Chronic atrial fibrillation -Bumex 1 mg q12hrs, monitor I's and O's. -A. fib rate controlled -Therapeutic Lovenox 150 mg twice a day GI: Super morbid obesity with BMI of 68 -Heart healthy diet. -Pepcid for GI prophylaxis -SSI per ICU protocol, monitor glucose, doing well. - Hgb decreasing, etiology unclear, will get hemoccult. : -Monitor potassium, phosphorus and magnesium. -Potassium improved, continue replacement protocol - Add free water, NaCl improved but still low. - Bumex 1 mg q12hrs. -Monitor renal function -Milan catheter -Strict I&O ID: Healthcare associated pneumonia Sepsis MDRO Possible cellulitis right arm and fast Leukocytosis -IV rocephin (05/07 - ) for 14 days to cover Proteus and Providencia, colistin nebs discontinued, Zyvox for cellulitis discontinued, Diflucan discontinued -Blood urine and blood culture NGTD. -Wound culture Pseudomonas MDR -Sputum culture-Pseudomonas MDR -ID consulted, follow-up recommendations -Blood cx from 05/03 negative. Urine culture positive for proteus mirabilis. HEME: History of PE on chronic anticoagulation with Xarelto Leukocytosis -Monitor CBC, CMP, coags -Xarelto for PE 4 yrs ago, holding for Lovenox. -Lovenox 150 mg twice a day - Hgb 7.2. Hemoccult pending. ENDO: Hypothyroidism -Electrolyte replacement protocol -Continue levothyroxine 25 mcgs IV daily - Prednisone 40 mg taper. - Sliding scale insulin only. PROPH: -Bilateral lower extremity SCDs. Lovenox therapeutic dosing. IV Protonix for GI prophylaxis LINES: - PICC line Discharge Planning Patient will need to be weaned from mechanical ventilation with stable clinical status. Hopeful for patient to be able to return to long-term rehab facility. If he qualifies can consider custodial vent facility depending on how he does. Joshua Morgan MD R2 May 22, 2016 08:51 Joshua Morgan MD R2 May 22, 2016 08:51
[2016-05-22] MEDS: cefTRIAXone INJ 2,000 MG in SODIUM CHLORIDE 0.9% INJ 100 ML IV SCH (09:12)
[2016-05-22] MEDS: FAMOTIDINE 20 MG TAB PO SCH ×2 (09:13→22:03)
[2016-05-22] MEDS: ATORVASTATIN 10 MG TAB PO SCH (09:13)
[2016-05-22] MEDS: FERROUS SULFATE 300 MG /5ML UDC PO SCH (09:13)
[2016-05-22] MEDS: predniSONE 5 MG/5 ML CUP PO SCH (09:13)
[2016-05-22] MEDS: DILTIAZEM HCL 60 MG TAB PO SCH ×4 (09:14→22:03)
[2016-05-22] MEDS: FENOFIBRATE 48 MG TAB PO SCH (09:14)
[2016-05-22] MEDS: SERTRALINE HCL 50 MG TAB PO SCH (09:14)
[2016-05-22] MEDS: MONTELUKAST SODIUM 10 MG TAB PO SCH (09:14)
[2016-05-22] MEDS: ALLOPURINOL 300 MG TAB PO SCH (09:14)
[2016-05-22] MEDS: BUMETANIDE INJ 1 MG/4 ML VIAL IV PUSH SCH ×2 (09:15→22:03)
[2016-05-22] MEDS: METOCLOPRAMIDE HCL 10 MG/2 ML VIAL IV PUSH SCH ×2 (09:16→22:03)
[2016-05-22] MEDS: SODIUM CHLORIDE 0.9% FLUSH 5 ML FLUSH FLUSH SCH ×2 (09:16→22:04)
[2016-05-22] MEDS: fentaNYL DRIP 250 ML IV SCH ×2 (09:36→17:46)
[2016-05-22] MEDS: NYSTATIN 100,000 U/GM PWD 15 GM BTL TOPICAL SCH ×2 (14:54→22:05)
[2016-05-22] MEDS: COLLAGENASE OINT 30 GM TUBE TOP SCH (14:54)
[2016-05-22] MEDS: MICONAZOLE NITRATE 2% CREAM 15 GM TOP SCH ×2 (14:55→21:00)
[2016-05-22] MEDS: RESP: ALBUTEROL 2.5 MG/IPRATROPIUM 0.5 MG NEB (PRN) NEB (19:32)
--- NOTE | 2016-05-22 23:20 | HHI.CCPN ---
Subjective Remarks/Hospital Course 31 year old morbidly obese (BMI 68) male with chronic respiratory failure s/p tracheostomy 4 years ago, atrial fibrillation and pulmonary embolism on Xarelto , COPD, CHF and h/o HTN. He presented from [facility] with low oxygen saturation apparently his oxygen saturation was 82% on RA. He was placed back on 6L of oxygen via his trach mask and given a breathing treatment, initially improved however he started drifting back to low 80s again. Chest x-ray showed bibasilar infiltrates and pulmonary edema. Patient was admitted to the [facility] and was started on IV steroids IV vancomycin and Zosyn and Levaquin for healthcare associated pneumonia. After starting ACV, patient was more awake but there was a significant amount of air leak around his tracheostomy. Patient has had a Shiley 6.0 Proximal XLT, but the submersible pilot balloon had been cut off. 05/02 the patient became acutely hypoxemic with a large cuff leak, underwent emergency trach exchange at bedside by Dr. Macias. FiO2 65% PEEP 14 05/13 Patient is on ventilator via trach, on Fentanyl infusion however he is awake and alert. On PRVC with FIO2 40%. Afebrile. 05/14 No acute events overnight. Tmax 99.8. Patient is awake, alert on ventilator via trach still requiring increase O2. On PRVC with PEEP: 10 and FIO2 70%. 05/15 patient acutely desaturated after he was found. Saturation went down to 70% on 100% oxygen. Bag and mask ventilation carried out, with eventual improvement on oxygen saturation to 85%. Patient was placed on PC/AC mode of ventilation, with PEEP of 15 and instructed to pressure of 30. Eventually oxygen saturation improved to 95%. Lasix him today as the chest x-ray from today shows increasing bilateral infiltrate and pulmonary edema. Also sputum culture will be sent 05/16 Patient is on Fentanyl and Diprivan infusion but awake and alert. Afebrile. On PC/AC with PEEP:15, IP: 22, IT:1.3 and FIO2 50% 05/17 Patient is off Diprivan and remains on Fentanyl infusion for sedation. On PC/AC with PEEP: down 10 and FIO2 40%. Afebrile. 05/18 Patient remains on ventilator via trach on PC/AC with PEEP:12, FIO2 40%, IP:22, IT:1.0. On Fentanyl infusion 05/19 No acute events overnight. On Fentanyl infusion but awake and alert. Afebrile. 05/20 Tolerating C Pap 17/12 FIO2 40, sats 98%. RSBI in 20s, appears can be weaned further. Afebrile. Speech therapy evaluated and ok for regular diet. Starting with full liquid. 05/21 Will wean PSV to 15/10. Tolerated full liquids, will advance to regular diet per speech recs. Subjective: 05/22 On PSV 15/10 FIO2 40 with sats 92%. Smiling today. Glad to be eating regular food again. Objective Vital Signs Date Time Temp Pulse Resp B/P Pulse Ox O2 Delivery O2 Flow Rate FiO2 05/22/16 19:32 100 40 05/22/16 16:00 98.4 101 18 160/76 05/21/16 07:58 Ventilator Intake and Output 05/21/16 05/21/16 05/21/16 07:59 15:59 23:59 Intake Total 605 ml 738 ml 331 ml Output Total 1125 ml 1125 ml 750 ml Balance -520 ml -387 ml -419 ml Result Diagram: 05/20/16 1326 05/21/16 0530 Imaging Last Impressions Chest X-Ray 05/16/16 0600 Signed Impressions: Service Date/Time: April 03:21 - CONCLUSION: 1. Slight improvement in bilateral airspace disease over the last day. Horacio Gupta MD Upper Extremity Ultrasound 05/02/16 0000 Signed Impressions: Service Date/Time: April 20:51 - CONCLUSION: No DVT. Garcia Lujan MD Abdomen X-Ray 04/29/16 0000 Signed Impressions: Service Date/Time: Friday, April 29, 2016 07:12 - CONCLUSION: Suspect Dobbhoff tube in the distal stomach. Garcia Lujan MD Objective Remarks GENERAL: Patient is 31yo on ventilator via trach, awake and follows commands. Morbid obesity SKIN: Warm and dry. HEAD: Normocephalic.NGT in place with tube feeds running. EYES: No scleral icterus. No injection or drainage. NECK: Supple, trachea midline. Shiley 6.0 Proximal XLT, (new trach placed ) CARDIOVASCULAR:Tachycardic without murmurs, gallops, or rubs. RESPIRATORY: Breath sounds equal bilaterally. No accessory muscle use. GASTROINTESTINAL: Abdomen soft, obese,, non-tender, nondistended. MUSCULOSKELETAL: No cyanosis, or edema. Pedal edema. Wound on lateral aspect of right lower leg above lateral malleolus. Neuro: Awake and alert. Moves all extremities without focal deficit. Procedures Shiley 6.0 XLT tracheostomy exchange under visual direction by general surgery and with GlideScope, by anesthesiologist. Date of Insertion: Apr 24, 2016 Date of Insertion: Apr 26, 2016 Line: PICC Side: Right A/P Assessment and Plan ASSESSMENT Acute hypercapnic and hypoxemic respiratory failure Acute worsening of hypoxia due to lung de-recruitment 05/15/16 Healthcare associated pneumonia MDR Pseudomonas Sepsis/persistent fever CHF exacerbation CO2 narcosis Tracheostomy submersible pilot balloon damage -status post exchange with new Shiley 6.0 Proximal XLT 05/02/16 Chronic Respiratory Failure s/p Tracheostomy 4 years ago (Shiley 6.0 Proximal XLT) COPD/obesity hypoventilation syndrome Morbid Obesity BMI 67 History of pulmonary embolism 4 years ago Chronic atrial fibrillation Anxiety CHF (Echo 2013 EF 40-45%; ECHO 08/2015 showing a grossly normal systolic function) Hypertension Hypothyroidism PLAN NEURO: CO2 narcosis - resolved Anxiety - Scheduled oxycodone 10 mg every 6 hours. Use morphine 4 mg IV every 3 hours as needed for breakthrough pain. Wean fentanyl drip. Plan to titrate oral meds until fentanyl drip is off. -Zoloft 50 daily RESP: Acute hypercapnic and hypoxemic respiratory failure Acute lung derecruitment today 05/15 Healthcare associated pneumonia Tracheostomy submersible pilot balloon damage (Shiley 6.0 Proximal XLT) s/p new trach placement 05/02 Chronic Respiratory Failure s/p Tracheostomy 4 years ago COPD/obesity hypoventilation syndrome History of pulmonary embolism 4 years ago Leukocytosis Pulmonary edema - PSV 15/10 40% and continue weaning as tolerated. - s/p Bronchoscopy 05/11 -follow up on BAL results-negative - DuoNeb every 6 hours scheduled, q2 prn. - Pulmicort BID (home med) -Continue singulair 10 mg po dailyi - Continue prednisone taper - Therapeutic Lovenox 150 mg every 12 hours CV: CHF exacerbation Pulmonary edema Paroxysmal atrial fibrillation (chronic) Hyperlipidemia - Monitor HR and BP keep MAP>65mmHg - on Cardizem 60mg QID -Continue Lipitor 10 g by mouth daily. Continue TriCor 40 mg by mouth daily - Therapeutic Lovenox 150 mg twice a day GI: Super morbid obesity with BMI of 68 D/c NGT and tube feeds. Regular diet thin liquids per speech recs. Having BMs on bowel regimen. - On Pepcid 20mg BID FEN/RENAL: Hypokalemia - Monitor renal function , I/O. electrolytes replacement per protocol. - Bumex 1 mg IV q12 with KCL with KDUR 40 q12 ID: Healthcare associated pneumonia Sepsis MDRO Possible cellulitis right arm Leukocytosis...trending down - Continue abx per ID ( Rocephin) till 05/25 -Urine cx: Proteus Mirabilis 05/05 -Sputum cx: Providencia 05/05 -Wound cx: 05/13 Proteus, Pseudomonas, Group D Enterococcus - Wound culture Pseudomonas MDR 04/27 - Sputum culture-Pseudomonas MDR- 04/27 - Bronchoscopy and re-culture 05/10 follow up on BAL results-neg to date - Follow up on sputum cx from 05/15- NGTD HEME: History of PE on chronic anticoagulation with Xarelto Anemia, iron deficiency and anemia of critical illness. -Monitor CBC, CMP, coags -Xarelto for PE 4 yrs ago. -Xarelto.held, On Lovenox 150 mg twice a day -Ferrous sulfate 300 daily. -Hgb has been relatively stable around 7 and does not clinically appear to have active bleeding. Would continue anticoagulation as benefit appears to outweigh risk. ENDO: Hypothyroidism -On SSI ( Medium scale) -Continue levothyroxine 50 mcg po daily PROPH: -Bilateral lower extremity SCDs. Lovenox DVT therapeutic dose. IV Protonix for GI prophylaxis LINES: - PICC line RUE- No DVT on US Out of bed with assistance. PT out of bed with vent. OT. Level 3 Sheila Solis MD May 22, 2016 23:20
[2016-05-23] VITALS (19 sets, daily range): BP systolic 130–148; BP diastolic 60–75; PULSE 81–102; RESP 11–18; TEMP 98–98.8; O2SAT 88–100
[2016-05-23] MEDS: POTASSIUM CHLORIDE 20 MEQ CONTROLLED RELEASE TAB PO SCH ×3 (00:52→20:30)
[2016-05-23] MEDS: ENOXAPARIN SODIUM 150 MG/ML SYRINGE SQ SCH ×2 (03:17→17:52)
[2016-05-23 04:20] LABS: AUTOMATED NEUTROPHIL # 5.3 TH/MM3 (1.8-7.7); BASOPHIL # 0.1 TH/MM3 (0-0.2); BASOPHIL % 0.7 % (0.0-2.0); EOSINOPHIL # 0.2 TH/MM3 (0-0.4); EOSINOPHIL % 2.9 % (0.0-4.0); HEMATOCRIT 23.9 % (39.0-51.0); LYMPH % 18.4 % (9.0-44.0); LYMPHOCYTE # 1.4 TH/MM3 (1.0-4.8); MEAN CELL VOLUME 80.9 FL (80.0-100.0); MEAN CORPUSCULAR HEMOGLOBIN 24.8 PG (27.0-34.0); MEAN CORPUSCULAR HGB CONC 30.7 % (32.0-36.0); MONO % 6.2 % (0.0-8.0); NEUT % 71.8 % (16.0-70.0); PLATELET COUNT 201 TH/MM3 (150-450); RED BLOOD COUNT 2.95 MIL/MM3 (4.50-5.90); RED CELL DISTRIBUTION WIDTH 25.6 % (11.6-17.2); WHITE BLOOD COUNT 7.4 TH/MM3 (4.0-11.0)
[2016-05-23 04:27] LABS: HEMO FLAGS AUTO DIFF
[2016-05-23 04:44] LABS: BICARBONATE 42.1 MEQ/L (21.0-32.0); POTASSIUM 3.2 MEQ/L (3.5-5.1)
[2016-05-23] MEDS: INSULIN ASPART SUPPLEMENTAL SCALE SQ SCH ×4 (06:32→20:30)
[2016-05-23] MEDS: POTASSIUM CHLOR 40 MEQ PREMIX 100 ML IV PRN (06:33)
[2016-05-23] MEDS: LEVOTHYROXINE SODIUM 50 MCG TAB PO SCH (06:33)
--- NOTE | 2016-05-23 07:53 | HHI.CCPN ---
Subjective Remarks/Hospital Course 31 year old morbidly obese (BMI 68) male with chronic respiratory failure s/p tracheostomy 4 years ago, atrial fibrillation and pulmonary embolism on Xarelto , COPD, CHF and h/o HTN. He presented from [facility] with low oxygen saturation apparently his oxygen saturation was 82% on RA. He was placed back on 6L of oxygen via his trach mask and given a breathing treatment, initially improved however he started drifting back to low 80s again. Chest x-ray showed bibasilar infiltrates and pulmonary edema. Patient was admitted to the [facility] and was started on IV steroids IV vancomycin and Zosyn and Levaquin for healthcare associated pneumonia. After starting ACV, patient was more awake but there was a significant amount of air leak around his tracheostomy. Patient has had a Shiley 6.0 Proximal XLT, but the car pilot balloon had been cut off. 05/02 the patient became acutely hypoxemic with a large cuff leak, underwent emergency trach exchange at bedside by Dr. Macias. FiO2 65% PEEP 14 05/13 Patient is on ventilator via trach, on Fentanyl infusion however he is awake and alert. On PRVC with FIO2 40%. Afebrile. 05/14 No acute events overnight. Tmax 99.8. Patient is awake, alert on ventilator via trach still requiring increase O2. On PRVC with PEEP: 10 and FIO2 70%. 05/15 patient acutely desaturated after he was found. Saturation went down to 70% on 100% oxygen. Bag and mask ventilation carried out, with eventual improvement on oxygen saturation to 85%. Patient was placed on PC/AC mode of ventilation, with PEEP of 15 and instructed to pressure of 30. Eventually oxygen saturation improved to 95%. Lasix him today as the chest x-ray from today shows increasing bilateral infiltrate and pulmonary edema. Also sputum culture will be sent 05/16 Patient is on Fentanyl and Diprivan infusion but awake and alert. Afebrile. On PC/AC with PEEP:15, IP: 22, IT:1.3 and FIO2 50% 05/17 Patient is off Diprivan and remains on Fentanyl infusion for sedation. On PC/AC with PEEP: down 10 and FIO2 40%. Afebrile. 05/18 Patient remains on ventilator via trach on PC/AC with PEEP:12, FIO2 40%, IP:22, IT:1.0. On Fentanyl infusion 05/19 No acute events overnight. On Fentanyl infusion but awake and alert. Afebrile. 05/20 Tolerating C Pap 17/12 FIO2 40, sats 98%. RSBI in 20s, appears can be weaned further. Afebrile. Speech therapy evaluated and ok for regular diet. Starting with full liquid. 05/21 Will wean PSV to 15/10. Tolerated full liquids, will advance to regular diet per speech recs. Subjective: 05/22 On PSV 15/10 FIO2 40 with sats 92%. Smiling today. Glad to be eating regular food again. 05/23 No acute events overnight. Remains on CPAP with PS 15, PEEP:10 and FIO2 40 %. Afebrile. Off Fentanyl drip. Afebrile. Awake and alert. Objective Vital Signs Date Time Temp Pulse Resp B/P Pulse Ox O2 Delivery O2 Flow Rate FiO2 05/23/16 06:00 92 05/23/16 04:09 92 40 05/23/16 04:00 98.2 14 136/66 05/21/16 07:58 Ventilator Intake and Output 05/22/16 05/22/16 05/23/16 08:00 16:00 00:00 Intake Total 231 ml 465 ml 587 ml Output Total 650 ml 650 ml 900 ml Balance -419 ml -185 ml -313 ml Result Diagram: 05/23/16 0325 05/23/16 0325 Other Results Laboratory Tests Test 05/23/16 03:25 White Blood Count 7.4 TH/MM3 Red Blood Count 2.95 MIL/MM3 Hemoglobin 7.3 GM/DL Hematocrit 23.9 % Mean Corpuscular Volume 80.9 FL Mean Corpuscular Hemoglobin 24.8 PG Mean Corpuscular Hemoglobin 30.7 % Concent Red Cell Distribution Width 25.6 % Platelet Count 201 TH/MM3 Mean Platelet Volume 7.5 FL Neutrophils (%) (Auto) 71.8 % Lymphocytes (%) (Auto) 18.4 % Monocytes (%) (Auto) 6.2 % Eosinophils (%) (Auto) 2.9 % Basophils (%) (Auto) 0.7 % Neutrophils # (Auto) 5.3 TH/MM3 Lymphocytes # (Auto) 1.4 TH/MM3 Monocytes # (Auto) 0.5 TH/MM3 Eosinophils # (Auto) 0.2 TH/MM3 Basophils # (Auto) 0.1 TH/MM3 CBC Comment AUTO DIFF Sodium Level 135 MEQ/L Potassium Level 3.2 MEQ/L Chloride Level 85 MEQ/L Carbon Dioxide Level 42.1 MEQ/L Anion Gap 8 MEQ/L Blood Urea Nitrogen 12 MG/DL Creatinine 0.18 MG/DL Estimat Glomerular Filtration 626 ML/MIN Rate Random Glucose 83 MG/DL Calcium Level 9.0 MG/DL Imaging Last Impressions Chest X-Ray 05/20/16 0000 Signed Impressions: Service Date/Time: Friday, May 20, 2016 03:21 - CONCLUSION: Persistent mid and lower lung areas of consolidation or atelectasis being worse in the right. There has been mild improvement. Garcia Lujan MD Upper Extremity Ultrasound 05/02/16 0000 Signed Impressions: Service Date/Time: April 20:51 - CONCLUSION: No DVT. Garcia Lujan MD Abdomen X-Ray 04/29/16 0000 Signed Impressions: Service Date/Time: Friday, April 29, 2016 07:12 - CONCLUSION: Suspect Dobbhoff tube in the distal stomach. Garcia Lujan MD Objective Remarks GENERAL: Patient is 31yo on ventilator via trach, awake and follows commands. Morbid obesity SKIN: Warm and dry. HEAD: Normocephalic.NGT in place with tube feeds running. EYES: No scleral icterus. No injection or drainage. NECK: Supple, trachea midline. Shiley 6.0 Proximal XLT, (new trach placed ) CARDIOVASCULAR:Tachycardic without murmurs, gallops, or rubs. RESPIRATORY: Breath sounds equal bilaterally. No accessory muscle use. GASTROINTESTINAL: Abdomen soft, obese,, non-tender, nondistended. MUSCULOSKELETAL: No cyanosis, or edema. Pedal edema. Wound on lateral aspect of right lower leg above lateral malleolus. Neuro: Awake and alert. Moves all extremities without focal deficit. Procedures Shiley 6.0 XLT tracheostomy exchange under visual direction by general surgery and with GlideScope, by anesthesiologist. Date of Insertion: Apr 24, 2016 Date of Insertion: Apr 26, 2016 Line: PICC Side: Right A/P Assessment and Plan ASSESSMENT Acute hypercapnic and hypoxemic respiratory failure Acute worsening of hypoxia due to lung de-recruitment 05/15/16 Healthcare associated pneumonia MDR Pseudomonas Sepsis/persistent fever CHF exacerbation CO2 narcosis Tracheostomy car pilot balloon damage -status post exchange with new Shiley 6.0 Proximal XLT 05/02/16 Chronic Respiratory Failure s/p Tracheostomy 4 years ago (Shiley 6.0 Proximal XLT) COPD/obesity hypoventilation syndrome Morbid Obesity BMI 67 History of pulmonary embolism 4 years ago Chronic atrial fibrillation Anxiety CHF (Echo 2013 EF 40-45%; ECHO 08/2015 showing a grossly normal systolic function) Hypertension Hypothyroidism PLAN NEURO: CO2 narcosis - resolved Anxiety - On morphine 4 mg IV every 3 hours as needed for breakthrough pain. -Off Fentanyl infusion, patient is awake and alert. -Zoloft 50 daily RESP: Acute hypercapnic and hypoxemic respiratory failure Acute lung derecruitment today 05/15 Healthcare associated pneumonia Tracheostomy car pilot balloon damage (Shiley 6.0 Proximal XLT) s/p new trach placement 05/02 Chronic Respiratory Failure s/p Tracheostomy 4 years ago COPD/obesity hypoventilation syndrome History of pulmonary embolism 4 years ago Leukocytosis Pulmonary edema - PSV 15/10 40% and continue weaning as tolerated. - s/p Bronchoscopy 05/11 -follow up on BAL results-negative - DuoNeb every 6 hours scheduled, q2 prn. - Pulmicort BID (home med), Diamox 250mg IV x1 -Continue Singulair 10 mg po dailyi - Continue prednisone taper - Therapeutic Lovenox 150 mg every 12 hours CV: CHF exacerbation Pulmonary edema Paroxysmal atrial fibrillation (chronic) Hyperlipidemia - Monitor HR and BP keep MAP>65mmHg - on Cardizem 60mg QID -Continue Lipitor 10 g by mouth daily. Continue TriCor 40 mg by mouth daily - Therapeutic Lovenox 150 mg twice a day GI: Super morbid obesity with BMI of 68 -Regular diet thin liquids per speech recs. - On Pepcid 20mg BID FEN/RENAL: Hypokalemia - Monitor renal function , I/O. electrolytes replacement per protocol. Will need K replacement today. - Bumex 1 mg IV q12 with KCL 40 q12 ID: Healthcare associated pneumonia Sepsis MDRO Possible cellulitis right arm Leukocytosis...trending down - Continue abx per ID ( Rocephin) till 05/25 -Urine cx: Proteus Mirabilis 05/05 -Sputum cx: Providencia 05/05 -Wound cx: 05/13 Proteus, Pseudomonas, Group D Enterococcus - Wound culture Pseudomonas MDR 04/27 - Sputum culture-Pseudomonas MDR- 04/27 - Bronchoscopy and re-culture 05/10 follow up on BAL results-neg to date - Follow up on sputum cx from 05/15- NGTD HEME: History of PE on chronic anticoagulation with Xarelto Anemia, iron deficiency and anemia of critical illness. -Monitor CBC, CMP, coags -Xarelto for PE 4 yrs ago. -Xarelto.held, On Lovenox 150 mg twice a day -Ferrous sulfate 300 daily. -Hgb has been relatively stable around 7 and does not clinically appear to have active bleeding. Would continue anticoagulation as benefit appears to outweigh risk. ENDO: Hypothyroidism -On SSI ( Medium scale) -Continue levothyroxine 50 mcg po daily PROPH: -Bilateral lower extremity SCDs. Lovenox DVT therapeutic dose. IV Protonix for GI prophylaxis LINES: - PICC line RUE- No DVT on US Out of bed with assistance. PT out of bed with vent. OT. Level 3 Flory Martino MD May 23, 2016 07:53
[2016-05-23] MEDS: cefTRIAXone INJ 2,000 MG in SODIUM CHLORIDE 0.9% INJ 100 ML IV SCH (08:00)
[2016-05-23] MEDS: RESP: BUDESONIDE 0.5 MG/2 ML NEB NEB SCH ×2 (08:04→20:06)
[2016-05-23 08:36] LABS: BANDS 10 % (0-6); BASOPHILS 1 % (0-2); CORRECTED NUCLEATED RBC 1 /100 WBC (0-0); EOSINOPHILS 3 % (0-4); MYELOCYTES 2 % (0-0); NEUTROPHIL # MANUAL DIFF 5.6 TH/MM3 (1.8-7.7); POLYS (SEG NEUTROPHILS) 64 % (16-70); WBC DIFF SAMPLE 100
[2016-05-23 08:37] LABS: PLATELET ESTIMATE SMEAR NORMAL (NORMAL); PLATELET MORPHOLOGY NORMAL (NORMAL); POLYCHROMASIA 3.1 % (0.0-1.9); SCAN/DIFF FINAL DIFF MANUAL
[2016-05-23 08:38] LABS: STOMATOCYTES 1+ (NORMAL)
[2016-05-23] MEDS: SODIUM CHLORIDE 0.9% FLUSH 5 ML FLUSH FLUSH SCH ×2 (08:38→10:19)
[2016-05-23] MEDS: CHLORHEXIDINE 0.12% (ORAL KIT) 15 ML CUP MT SCH ×2 (08:38→20:30)
[2016-05-23] MEDS: METOCLOPRAMIDE HCL 10 MG/2 ML VIAL IV PUSH SCH (08:39)
[2016-05-23] MEDS: ATORVASTATIN 10 MG TAB PO SCH (08:39)
[2016-05-23] MEDS: FAMOTIDINE 20 MG TAB PO SCH ×2 (08:39→20:30)
[2016-05-23] MEDS: predniSONE 5 MG/5 ML CUP PO SCH (08:39)
[2016-05-23] MEDS: SERTRALINE HCL 50 MG TAB PO SCH (08:40)
[2016-05-23] MEDS: NYSTATIN 100,000 U/GM PWD 15 GM BTL TOPICAL SCH ×2 (08:40→20:31)
[2016-05-23] MEDS: ALLOPURINOL 300 MG TAB PO SCH (08:40)
[2016-05-23] MEDS: MONTELUKAST SODIUM 10 MG TAB PO SCH (08:40)
[2016-05-23] MEDS: FENOFIBRATE 48 MG TAB PO SCH (08:40)
[2016-05-23] MEDS: MICONAZOLE NITRATE 2% CREAM 15 GM TOP SCH ×2 (08:40→20:31)
[2016-05-23] MEDS: COLLAGENASE OINT 30 GM TUBE TOP SCH (08:40)
[2016-05-23] MEDS: DILTIAZEM HCL 60 MG TAB PO SCH ×4 (08:44→20:30)
[2016-05-23] MEDS: FERROUS SULFATE 300 MG /5ML UDC PO SCH (08:44)
[2016-05-23] MEDS: BUMETANIDE INJ 1 MG/4 ML VIAL IV PUSH SCH ×2 (10:18→22:53)
--- NOTE | 2016-05-23 11:15 | HHI.FPPN ---
Subjective Remarks No acute events. Had one large bowel movement overnight. Had one episode of emesis. No abdominal pain. No chest pain or shortness of breath. No complaints this morning. Objective Vitals Vital Signs Date Time Temp Pulse Resp B/P Pulse Ox O2 Delivery O2 Flow Rate FiO2 05/23/16 08:04 92 40 05/23/16 07:33 14 05/23/16 06:00 92 05/23/16 04:09 92 40 05/23/16 04:00 98.2 91 14 136/66 91 05/23/16 04:00 40 05/23/16 04:00 91 05/23/16 02:00 92 05/23/16 01:00 90 40 05/23/16 00:00 88 05/23/16 00:00 98.4 88 11 130/60 88 05/23/16 00:00 40 05/22/16 22:00 92 05/22/16 20:00 92 05/22/16 20:00 98.3 92 19 151/75 92 05/22/16 20:00 40 05/22/16 19:32 100 40 05/22/16 16:00 98.4 101 18 160/76 92 05/22/16 16:00 40 05/22/16 15:19 90 40 05/22/16 12:00 40 05/22/16 12:00 94 05/22/16 12:00 97.9 90 12 135/68 95 05/22/16 11:29 92 40 I/O 05/22/16 05/22/16 05/22/16 05/23/16 05/23/16 05/23/16 06:59 14:59 22:59 06:59 14:59 22:59 Intake Total 231 ml 1052 ml 420 ml Output Total 650 ml 1550 ml 1150 ml Balance -419 ml -498 ml -730 ml Intake Oral 6 ml 340 ml 240 ml IV Total 225 ml 712 ml 180 ml Output Urine Total 650 ml 1550 ml 1150 ml # Bowel Movements 0 0 Result Diagram: 05/23/1632405/23/16324 Objective Remarks GENERAL: Morbidly obese. On mechanical ventilation, awake and alert SKIN: Warm and dry. No rashes or lesions. Ecchymosis on abdomen superior to umbilicus in area of SQ anticoagulant injections. HEAD: Normocephalic. Atraumatic. ENT: No nasal drainage. Tracheotomy site is clean and dry without drainage. CARDIOVASCULAR: Distant heart sounds. Tachycardic with regular rhythm; normal S1 /S2, no murmurs, gallops, or rubs. RESPIRATORY: On mechanical ventilation.PSV with FiO2 40 and PEEP 10. Clear to auscultation bilaterally. No crackles or wheezes. GASTROINTESTINAL: Abdomen soft, obese, non-distended, non-tender. MUSCULOSKELETAL: Lower extremity edema. Decubitus ulcer prophylaxis boots in place. NEURO: Awake, alert. Able to speak in short sentences, voice hoarse with trach. Right arm with numbness/tingling, some loss of movement, improved per patient and exam. Clinical Safety Specialist strength 4/5, compared to 5/5 on left. Date of Insertion: Apr 24, 2016 Date of Insertion: Apr 26, 2016 Line: PICC Side: Right A/P Assessment and Plan Assessment and Plan Acute hypercapnic/hypoxemic respiratory failure Healthcare associated pneumonia with MDR Pseudomonas UTI with proteus mirabilis Sepsis CHF exacerbation CO2 narcosis Chronic Respiratory Failure s/p Tracheostomy 4 years ago (Shiley 6.0 Proximal XLT) COPD/obesity hypoventilation syndrome Morbid Obesity BMI 66 History of pulmonary embolism 4 years ago Chronic atrial fibrillation Anxiety CHF (Echo 2013 EF 40-45%; ECHO 08/2015 showing grossly normal systolic function) Hypertension Hypothyroidism PLAN NEURO: answering questions appropriately, awake and alert Anxiety -Wean sedatives as tolerated while maintaining synchrony with vent - Sertraline for depression/anxiety, reports better moods RESP: PSV with PEEP 10, FiO2 40 Acute hypercapnic/hypoxemic respiratory failure Healthcare associated pneumonia Chronic Respiratory Failure s/p Tracheostomy 4 years ago COPD/obesity hypoventilation syndrome History of pulmonary embolism 4 years ago Pulmonary edema -Continue mechanical ventilation. Wean to keep SaO2 >88% -Healthcare associated pneumonia (MDRO) is being treated with IV Rocephin ( - ). Will discontinue Rocephin 05/25 if doing well. -Sputum culture revealed Pseudomonas MDR, providencia stuartii -DuoNeb every 4 hours scheduled -Pulmicort BID (home med) -Continue prednisone 30 mg with taper -Therapeutic Lovenox 150 mg every 12 hours CV: CHF exacerbation Pulmonary edema Chronic atrial fibrillation -Bumex 1 mg q12hrs, monitor I's and O's. -A. fib rate controlled -Therapeutic Lovenox 150 mg twice a day GI: Super morbid obesity with BMI of 68 -Heart healthy diet. -Pepcid for GI prophylaxis -SSI, monitor glucose, doing well. - Hgb low but stable, monitor. : -Monitor potassium, phosphorus and magnesium. -Potassium improved, continue replacement protocol - Add free water, NaCl improved but still low. - Bumex 1 mg q12hrs. -Monitor renal function -Milan catheter -Strict I&O ID: Healthcare associated pneumonia Sepsis MDRO Possible cellulitis right arm and fast Leukocytosis -IV rocephin (05/07 - ) until 05/25 to cover Proteus and Providencia, colistin nebs discontinued, Zyvox for cellulitis discontinued, Diflucan discontinued -Blood urine and blood culture NGTD. -Wound culture Pseudomonas MDR -Sputum culture-Pseudomonas MDR -ID consulted, follow-up recommendations -Blood cx from 05/03 negative. Urine culture positive for proteus mirabilis. HEME: History of PE on chronic anticoagulation with Xarelto Leukocytosis -Monitor CBC, CMP, coags -Xarelto for PE 4 yrs ago, holding for Lovenox. -Lovenox 150 mg twice a day - Hgb 7.3. Hemoccult pending. ENDO: Hypothyroidism -Electrolyte replacement protocol -Continue levothyroxine 25 mcgs IV daily - Prednisone 40 mg taper. - Sliding scale insulin only. PROPH: -Bilateral lower extremity SCDs. Lovenox therapeutic dosing. IV Protonix for GI prophylaxis LINES: - PICC line Discharge Planning Patient will need to be weaned from mechanical ventilation with stable clinical status. Hopeful for patient to be able to return to long-term rehab facility. If he qualifies can consider retirement vent facility depending on how he does. Joshua Morgan MD R2 May 23, 2016 11:15
[2016-05-23] MEDS: RESP: ALBUTEROL 2.5 MG/IPRATROPIUM 0.5 MG NEB (PRN) NEB (20:07)
[2016-05-24] VITALS (19 sets, daily range): BP systolic 91–167; BP diastolic 7–86; PULSE 82–111; RESP 17–24; TEMP 97.9–98.4; O2SAT 92–99
[2016-05-24] MEDS: ENOXAPARIN SODIUM 150 MG/ML SYRINGE SQ SCH ×2 (03:54→14:47)
[2016-05-24] MEDS: LEVOTHYROXINE SODIUM 50 MCG TAB PO SCH (05:24)
[2016-05-24 05:44] LABS: AUTOMATED NEUTROPHIL # 4.2 TH/MM3 (1.8-7.7); BASOPHIL # 0.1 TH/MM3 (0-0.2); EOSINOPHIL # 0.3 TH/MM3 (0-0.4); EOSINOPHIL % 3.9 % (0.0-4.0); HEMATOCRIT 23.3 % (39.0-51.0); LYMPH % 23.3 % (9.0-44.0); LYMPHOCYTE # 1.5 TH/MM3 (1.0-4.8); MEAN CORPUSCULAR HEMOGLOBIN 24.7 PG (27.0-34.0); MEAN CORPUSCULAR HGB CONC 30.5 % (32.0-36.0); MONO % 6.2 % (0.0-8.0); NEUT % 65.6 % (16.0-70.0); PLATELET COUNT 214 TH/MM3 (150-450); RED BLOOD COUNT 2.87 MIL/MM3 (4.50-5.90); RED CELL DISTRIBUTION WIDTH 26.4 % (11.6-17.2); WHITE BLOOD COUNT 6.4 TH/MM3 (4.0-11.0)
[2016-05-24 05:48] LABS: HEMO FLAGS AUTO DIFF
[2016-05-24 06:10] LABS: BICARBONATE 41.6 MEQ/L (21.0-32.0); MAGNESIUM 1.4 MG/DL (1.5-2.5); POTASSIUM 3.3 MEQ/L (3.5-5.1)
[2016-05-24] MEDS: INSULIN ASPART SUPPLEMENTAL SCALE SQ SCH ×4 (06:35→21:00)
[2016-05-24] MEDS: POTASSIUM CHLOR 20 MEQ PREMIX 100 ML IV PRN (06:48)
[2016-05-24] MEDS: MAGNESIUM SULFATE INJ 2 GM in SODIUM CHLORIDE 0.9% INJ 96 ML IV PRN (06:54)
[2016-05-24 07:02] LABS: BANDS 14 % (0-6); BASOPHILS 1 % (0-2); BLASTS 1 % (0-0); CORRECTED NUCLEATED RBC 6 /100 WBC (0-0); EOSINOPHILS 2 % (0-4); MYELOCYTES 1 % (0-0); NEUTROPHIL # MANUAL DIFF 4.7 TH/MM3 (1.8-7.7); PLATELET ESTIMATE SMEAR NORMAL (NORMAL); PLATELET MORPHOLOGY ENLARGED (NORMAL); POLYS (SEG NEUTROPHILS) 59 % (16-70); SCAN/DIFF FINAL DIFF MANUAL; WBC DIFF SAMPLE 100
[2016-05-24] MEDS: cefTRIAXone INJ 2,000 MG in SODIUM CHLORIDE 0.9% INJ 100 ML IV SCH (07:38)
[2016-05-24] MEDS: predniSONE 5 MG/5 ML CUP PO SCH (07:39)
[2016-05-24] MEDS: POTASSIUM CHLORIDE 20 MEQ CONTROLLED RELEASE TAB PO SCH ×2 (07:39→21:01)
[2016-05-24] MEDS: DILTIAZEM HCL 60 MG TAB PO SCH ×4 (07:41→21:01)
[2016-05-24] MEDS: SODIUM CHLORIDE 0.9% FLUSH 5 ML FLUSH FLUSH SCH ×2 (07:41→21:00)
[2016-05-24] MEDS: FERROUS SULFATE 300 MG /5ML UDC PO SCH (07:41)
[2016-05-24] MEDS: FAMOTIDINE 20 MG TAB PO SCH ×2 (07:41→21:01)
[2016-05-24] MEDS: SERTRALINE HCL 50 MG TAB PO SCH (07:42)
[2016-05-24] MEDS: ALLOPURINOL 300 MG TAB PO SCH (07:42)
[2016-05-24] MEDS: FENOFIBRATE 48 MG TAB PO SCH (07:42)
[2016-05-24] MEDS: ATORVASTATIN 10 MG TAB PO SCH (07:42)
[2016-05-24] MEDS: COLLAGENASE OINT 30 GM TUBE TOP SCH (07:46)
[2016-05-24] MEDS: NYSTATIN 100,000 U/GM PWD 15 GM BTL TOPICAL SCH ×2 (07:46→21:05)
[2016-05-24] MEDS: MICONAZOLE NITRATE 2% CREAM 15 GM TOP SCH ×2 (07:47→21:05)
[2016-05-24] MEDS: MONTELUKAST SODIUM 10 MG TAB PO SCH (07:48)
[2016-05-24] MEDS: CHLORHEXIDINE 0.12% (ORAL KIT) 15 ML CUP MT SCH ×2 (07:48→21:00)
[2016-05-24] MEDS: RESP: BUDESONIDE 0.5 MG/2 ML NEB NEB SCH ×2 (08:10→19:37)
--- NOTE | 2016-05-24 08:12 | HHI.CCPN ---
Subjective Remarks/Hospital Course 31 year old morbidly obese (BMI 68) male with chronic respiratory failure s/p tracheostomy 4 years ago, atrial fibrillation and pulmonary embolism on Xarelto , COPD, CHF and h/o HTN. He presented from [facility] with low oxygen saturation apparently his oxygen saturation was 82% on RA. He was placed back on 6L of oxygen via his trach mask and given a breathing treatment, initially improved however he started drifting back to low 80s again. Chest x-ray showed bibasilar infiltrates and pulmonary edema. Patient was [facility] and was started on IV steroids IV vancomycin and Zosyn and Levaquin for healthcare associated pneumonia. After starting ACV, patient was more awake but there was a significant amount of air leak around his tracheostomy. Patient has had a Shiley 6.0 Proximal XLT, but the check pilot balloon had been cut off. 05/02 the patient became acutely hypoxemic with a large cuff leak, underwent emergency trach exchange at bedside by Dr. Macias. FiO2 65% PEEP 14 05/13 Patient is on ventilator via trach, on Fentanyl infusion however he is awake and alert. On PRVC with FIO2 40%. Afebrile. 05/14 No acute events overnight. Tmax 99.8. Patient is awake, alert on ventilator via trach still requiring increase O2. On PRVC with PEEP: 10 and FIO2 70%. 05/15 patient acutely desaturated after he was found. Saturation went down to 70% on 100% oxygen. Bag and mask ventilation carried out, with eventual improvement on oxygen saturation to 85%. Patient was placed on PC/AC mode of ventilation, with PEEP of 15 and instructed to pressure of 30. Eventually oxygen saturation improved to 95%. Lasix him today as the chest x-ray from today shows increasing bilateral infiltrate and pulmonary edema. Also sputum culture will be sent 05/16 Patient is on Fentanyl and Diprivan infusion but awake and alert. Afebrile. On PC/AC with PEEP:15, IP: 22, IT:1.3 and FIO2 50% 05/17 Patient is off Diprivan and remains on Fentanyl infusion for sedation. On PC/AC with PEEP: down 10 and FIO2 40%. Afebrile. 05/18 Patient remains on ventilator via trach on PC/AC with PEEP:12, FIO2 40%, IP:22, IT:1.0. On Fentanyl infusion 05/19 No acute events overnight. On Fentanyl infusion but awake and alert. Afebrile. 05/20 Tolerating C Pap 17/12 FIO2 40, sats 98%. RSBI in 20s, appears can be weaned further. Afebrile. Speech therapy evaluated and ok for regular diet. Starting with full liquid. 05/21 Will wean PSV to 15/10. Tolerated full liquids, will advance to regular diet per speech recs. Subjective: 05/22 On PSV 15/10 FIO2 40 with sats 92%. Smiling today. Glad to be eating regular food again. 05/23 No acute events overnight. Remains on CPAP with PS 15, PEEP:10 and FIO2 40 %. Afebrile. Off Fentanyl drip. Afebrile. Awake and alert. 05/24 Patient is on CPAP / with 40% FIO2. Afebrile. Awake and alert, on no sedation. Objective Vital Signs Date Time Temp Pulse Resp B/P Pulse Ox O2 Delivery O2 Flow Rate FiO2 05/24/16 06:00 92 05/24/16 04:00 97.9 24 167/84 96 05/24/16 04:00 40 05/21/16 07:58 Ventilator Intake and Output 05/23/16 05/23/16 05/24/16 08:00 16:00 00:00 Intake Total 420 ml 869 ml 303 ml Output Total 1150 ml 1700 ml 150 ml Balance -730 ml -831 ml 153 ml Result Diagram: 05/24/16 0520 05/24/16 0520 Other Results Laboratory Tests Test 05/24/16 05:20 White Blood Count 6.4 TH/MM3 Red Blood Count 2.87 MIL/MM3 Hemoglobin 7.1 GM/DL Hematocrit 23.3 % Mean Corpuscular Volume 81.0 FL Mean Corpuscular Hemoglobin 24.7 PG Mean Corpuscular Hemoglobin 30.5 % Concent Red Cell Distribution Width 26.4 % Platelet Count 214 TH/MM3 Mean Platelet Volume 6.8 FL Neutrophils (%) (Auto) 65.6 % Lymphocytes (%) (Auto) 23.3 % Monocytes (%) (Auto) 6.2 % Eosinophils (%) (Auto) 3.9 % Basophils (%) (Auto) 1.0 % Neutrophils # (Auto) 4.2 TH/MM3 Lymphocytes # (Auto) 1.5 TH/MM3 Monocytes # (Auto) 0.4 TH/MM3 Eosinophils # (Auto) 0.3 TH/MM3 Basophils # (Auto) 0.1 TH/MM3 CBC Comment AUTO DIFF Differential Total Cells 100 Counted Neutrophils % (Manual) 59 % Band Neutrophils % 14 % Lymphocytes % 19 % Monocytes % 3 % Eosinophils % 2 % Basophils % 1 % Neutrophils # (Manual) 4.7 TH/MM3 Myelocytes 1 % Nucleated Red Blood Cells 6 /100 WBC Differential Comment FINAL DIFF MANUAL Blastocytes 1 % Platelet Estimate NORMAL Platelet Morphology Comment ENLARGED Basophilic Stippling HEAVY Sodium Level 136 MEQ/L Potassium Level 3.3 MEQ/L Chloride Level 87 MEQ/L Carbon Dioxide Level 41.6 MEQ/L Anion Gap 7 MEQ/L Blood Urea Nitrogen 11 MG/DL Creatinine 0.18 MG/DL Estimat Glomerular Filtration 626 ML/MIN Rate Random Glucose 71 MG/DL Calcium Level 9.1 MG/DL Phosphorus Level 3.4 MG/DL Magnesium Level 1.4 MG/DL Imaging Last Impressions Chest X-Ray 05/20/16 0000 Signed Impressions: Service Date/Time: Friday, May 20, 2016 03:21 - CONCLUSION: Persistent mid and lower lung areas of consolidation or atelectasis being worse in the right. There has been mild improvement. Garcia Lujan MD Upper Extremity Ultrasound 05/02/16 0000 Signed Impressions: Service Date/Time: April 20:51 - CONCLUSION: No DVT. Garcia Lujan MD Abdomen X-Ray 04/29/16 0000 Signed Impressions: Service Date/Time: Friday, April 29, 2016 07:12 - CONCLUSION: Suspect Dobbhoff tube in the distal stomach. Garcia Lujan MD Objective Remarks GENERAL: Patient is 31yo on ventilator via trach, awake and follows commands. Morbid obesity SKIN: Warm and dry. HEAD: Normocephalic.NGT in place with tube feeds running. EYES: No scleral icterus. No injection or drainage. NECK: Supple, trachea midline. Shiley 6.0 Proximal XLT, (new trach placed ) CARDIOVASCULAR:Tachycardic without murmurs, gallops, or rubs. RESPIRATORY: Breath sounds equal bilaterally. No accessory muscle use. GASTROINTESTINAL: Abdomen soft, obese,, non-tender, nondistended. MUSCULOSKELETAL: No cyanosis, or edema. Pedal edema. Wound on lateral aspect of right lower leg above lateral malleolus. Neuro: Awake and alert. Moves all extremities without focal deficit. Procedures Shiley 6.0 XLT tracheostomy exchange under visual direction by general surgery and with GlideScope, by anesthesiologist. Date of Insertion: Apr 24, 2016 Date of Insertion: Apr 26, 2016 Line: PICC Side: Right A/P Assessment and Plan ASSESSMENT Acute hypercapnic and hypoxemic respiratory failure Acute worsening of hypoxia due to lung de-recruitment 05/15/16 Healthcare associated pneumonia MDR Pseudomonas Sepsis/persistent fever CHF exacerbation CO2 narcosis Tracheostomy check pilot balloon damage -status post exchange with new Shiley 6.0 Proximal XLT 05/02/16 Chronic Respiratory Failure s/p Tracheostomy 4 years ago (Shiley 6.0 Proximal XLT) COPD/obesity hypoventilation syndrome Morbid Obesity BMI 67 History of pulmonary embolism 4 years ago Chronic atrial fibrillation Anxiety CHF (Echo 2013 EF 40-45%; ECHO 08/2015 showing a grossly normal systolic function) Hypertension Hypothyroidism PLAN NEURO: CO2 narcosis - resolved Anxiety - On morphine 4 mg IV every 3 hours as needed for breakthrough pain. -Patient is awake and alert. -Zoloft 50 daily RESP: Acute hypercapnic and hypoxemic respiratory failure Acute lung derecruitment today 05/15 Healthcare associated pneumonia Tracheostomy check pilot balloon damage (Shiley 6.0 Proximal XLT) s/p new trach placement 05/02 Chronic Respiratory Failure s/p Tracheostomy 4 years ago COPD/obesity hypoventilation syndrome History of pulmonary embolism 4 years ago Leukocytosis Pulmonary edema - PSV 06/06 40% and continue weaning as tolerated. - s/p Bronchoscopy 05/11 -follow up on BAL results-negative - DuoNeb every 6 hours scheduled, q2 prn. - Pulmicort BID (home med), Diamox 250mg IV x1 -Continue Singulair 10 mg po dailyi - Continue prednisone taper - Therapeutic Lovenox 150 mg every 12 hours CV: CHF exacerbation Pulmonary edema Paroxysmal atrial fibrillation (chronic) Hyperlipidemia - Monitor HR and BP keep MAP>65mmHg - on Cardizem 60mg QID -Continue Lipitor 10 g by mouth daily. Continue TriCor 40 mg by mouth daily - Therapeutic Lovenox 150 mg twice a day GI: Super morbid obesity with BMI of 68 -Regular diet thin liquids per speech recs. - On Pepcid 20mg BID FEN/RENAL: Hypokalemia - Monitor renal function , I/O. electrolytes replacement per protocol. Will need K, Mg replacement today. - Bumex 1 mg IV q12 with KCL 40 q12 ID: Healthcare associated pneumonia Sepsis MDRO Possible cellulitis right arm Leukocytosis...trending down - Continue abx per ID ( Rocephin) till 05/25 -Urine cx: Proteus Mirabilis 05/05 -Sputum cx: Providencia 05/05 -Wound cx: 05/13 Proteus, Pseudomonas, Group D Enterococcus - Wound culture Pseudomonas MDR 04/27 - Sputum culture-Pseudomonas MDR- 04/27 - Bronchoscopy and re-culture 05/10 follow up on BAL results-neg to date - Follow up on sputum cx from 05/15- NGTD HEME: History of PE on chronic anticoagulation with Xarelto Anemia, iron deficiency and anemia of critical illness. -Monitor CBC, -Xarelto for PE 4 yrs ago. -Xarelto.held, On Lovenox 150 mg twice a day -Ferrous sulfate 300 daily. ENDO: Hypothyroidism -On SSI ( Medium scale) -Continue levothyroxine 50 mcg po daily PROPH: -Bilateral lower extremity SCDs. Lovenox DVT therapeutic dose. IV Protonix for GI prophylaxis LINES: - PICC line RUE- No DVT on US Out of bed with assistance. PT out of bed with vent. OT. Level 3 Flory Martino MD May 24, 2016 08:12
[2016-05-24] MEDS: BUMETANIDE INJ 1 MG/4 ML VIAL IV PUSH SCH ×2 (10:33→21:01)
--- NOTE | 2016-05-24 10:49 | HHI.FPPN ---
Subjective Remarks No acute events. Reports improved breathing. No chest pain. No abdominal pain. Had one episode of emesis yesterday. No diarrhea. No calf tenderness. Has some increased movement of right arm today, but still feels numbness and tingling. Objective Vitals Vital Signs Date Time Temp Pulse Resp B/P Pulse Ox O2 Delivery O2 Flow Rate FiO2 05/24/16 10:00 101 05/24/16 08:11 93 40 05/24/16 08:00 40 05/24/16 08:00 98.1 111 18 91/86 96 05/24/16 08:00 111 05/24/16 06:00 92 05/24/16 04:00 97.9 94 24 167/84 96 05/24/16 04:00 40 05/24/16 04:00 94 05/24/16 03:36 99 40 05/24/16 02:00 94 05/24/16 00:16 92 40 05/24/16 00:00 84 05/24/16 00:00 98.2 84 18 139/66 93 05/24/16 00:00 40 05/23/16 22:06 100 40 05/23/16 22:00 84 05/23/16 20:04 91 40 05/23/16 20:00 81 05/23/16 20:00 98.0 86 17 148/70 91 05/23/16 20:00 40 05/23/16 18:51 16 05/23/16 18:00 90 05/23/16 17:51 91 40 05/23/16 16:00 94 05/23/16 16:00 98.3 90 18 138/68 92 05/23/16 16:00 40 05/23/16 14:47 90 40 05/23/16 14:00 91 05/23/16 12:00 98.8 102 16 146/74 92 05/23/16 12:00 40 05/23/16 12:00 102 05/23/16 11:20 91 40 I/O 05/23/16 05/23/16 05/23/16 05/24/16 05/24/16 05/24/16 06:59 14:59 22:59 06:59 14:59 22:59 Intake Total 420 ml 869 ml 303 ml 523 ml Output Total 1150 ml 1700 ml 150 ml 1000 ml Balance -730 ml -831 ml 153 ml -477 ml Intake Oral 240 ml 600 ml 480 ml IV Total 180 ml 269 ml 303 ml 43 ml Output Urine Total 1150 ml 1700 ml 150 ml 1000 ml # Bowel Movements 0 0 Result Diagram: 05/24/1651905/24/16519 Objective Remarks GENERAL: Morbidly obese. On mechanical ventilation, awake and alert SKIN: Warm and dry. No rashes or lesions. Ecchymosis on abdomen superior to umbilicus in area of SQ anticoagulant injections. Grade 2 ulcer outer right foot with good granulation tissue, no purulent drainage. HEAD: Normocephalic. Atraumatic. ENT: No nasal drainage. Tracheotomy site is clean and dry without drainage. CARDIOVASCULAR: Distant heart sounds. Tachycardic with regular rhythm; normal S1 /S2, no murmurs, gallops, or rubs. RESPIRATORY: On mechanical ventilation.PSV 12 with FiO2 40 and PEEP 15. Clear to auscultation bilaterally. No crackles or wheezes. GASTROINTESTINAL: Abdomen soft, obese, non-distended, non-tender. MUSCULOSKELETAL: Lower extremity edema. Decubitus ulcer prophylaxis boots in place. NEURO: Awake, alert. Able to speak in short sentences, voice hoarse with trach. Right arm with numbness/tingling, some loss of movement, improved per patient and exam. Senior Technical Manager strength 4/5, compared to 5/5 on left. Date of Insertion: Apr 24, 2016 Date of Insertion: Apr 26, 2016 Line: PICC Side: Right A/P Assessment and Plan Assessment and Plan Acute hypercapnic/hypoxemic respiratory failure Healthcare associated pneumonia with MDR Pseudomonas UTI with proteus mirabilis Sepsis CHF exacerbation CO2 narcosis Chronic Respiratory Failure s/p Tracheostomy 4 years ago (Shiley 6.0 Proximal XLT) COPD/obesity hypoventilation syndrome Morbid Obesity BMI 66 History of pulmonary embolism 4 years ago Chronic atrial fibrillation Anxiety CHF (Echo 2013 EF 40-45%; ECHO 08/2015 showing grossly normal systolic function) Hypertension Hypothyroidism PLAN NEURO: answering questions appropriately, awake and alert Anxiety -Wean sedatives as tolerated while maintaining synchrony with vent - Sertraline for depression/anxiety, reports better moods RESP: PSV 12 with PEEP 5, FiO2 40 Acute hypercapnic/hypoxemic respiratory failure Healthcare associated pneumonia Chronic Respiratory Failure s/p Tracheostomy 4 years ago COPD/obesity hypoventilation syndrome History of pulmonary embolism 4 years ago Pulmonary edema -Continue mechanical ventilation. Wean to keep SaO2 >88% -Healthcare associated pneumonia (MDRO) is being treated with IV Rocephin ( - ). Will discontinue Rocephin 05/25 if doing well. -Sputum culture revealed Pseudomonas MDR, providencia stuartii -DuoNeb every 4 hours scheduled -Pulmicort BID (home med) -Continue prednisone 30 mg with taper -Therapeutic Lovenox 150 mg every 12 hours CV: CHF exacerbation Pulmonary edema Chronic atrial fibrillation -Bumex 1 mg q12hrs, monitor I's and O's. -A. fib rate controlled -Therapeutic Lovenox 150 mg twice a day GI: Super morbid obesity with BMI of 68 -Heart healthy diet. -Pepcid for GI prophylaxis -SSI, monitor glucose, doing well. - Hgb low but stable, monitor. : -Monitor potassium, phosphorus and magnesium. -Potassium improved, continue replacement protocol - Add free water, NaCl improved but still low. - Bumex 1 mg q12hrs. -Monitor renal function -Milan catheter -Strict I&O ID: Healthcare associated pneumonia Sepsis MDRO Possible cellulitis right arm and fast Leukocytosis -IV rocephin (05/07 - ) until 05/25 to cover Proteus and Providencia, colistin nebs discontinued, Zyvox for cellulitis discontinued, Diflucan discontinued -Blood urine and blood culture NGTD. -Wound culture Pseudomonas MDR -Sputum culture-Pseudomonas MDR -ID consulted, follow-up recommendations -Blood cx from 05/03 negative. Urine culture positive for proteus mirabilis. HEME: History of PE on chronic anticoagulation with Xarelto Leukocytosis -Monitor CBC, CMP, coags -Xarelto for PE 4 yrs ago, holding for Lovenox. -Lovenox 150 mg twice a day - Hgb 7.1, monitor ENDO: Hypothyroidism -Electrolyte replacement protocol -Continue levothyroxine 25 mcgs IV daily - Prednisone 30 mg taper. - Sliding scale insulin only. PROPH: -Bilateral lower extremity SCDs. Lovenox therapeutic dosing. IV Protonix for GI prophylaxis LINES: - PICC line Discharge Planning Patient will need to be weaned from mechanical ventilation with stable clinical status. Hopeful for patient to be able to return to long-term rehab facility. If he qualifies can consider [facility] facility depending on how he does. Joshua Morgan MD R2 May 24, 2016 10:49
[2016-05-24] MEDS: RESP: ALBUTEROL 2.5 MG/IPRATROPIUM 0.5 MG NEB (PRN) NEB (19:37)
[2016-05-24 22:20] LABS: MAGNESIUM 1.8 MG/DL (1.5-2.5); POTASSIUM 3.4 MEQ/L (3.5-5.1)
[2016-05-24] MEDS: POTASSIUM CHLOR 40 MEQ PREMIX 100 ML IV PRN (22:32)
[2016-05-25] VITALS (19 sets, daily range): BP systolic 139–160; BP diastolic 67–81; PULSE 81–101; RESP 18–36; TEMP 98.2–99; O2SAT 94–100
[2016-05-25 03:13] LABS: AUTOMATED NEUTROPHIL # 3.8 TH/MM3 (1.8-7.7); BASOPHIL % 0.6 % (0.0-2.0); EOSINOPHIL # 0.3 TH/MM3 (0-0.4); EOSINOPHIL % 4.8 % (0.0-4.0); HEMATOCRIT 23.9 % (39.0-51.0); LYMPH % 25.3 % (9.0-44.0); LYMPHOCYTE # 1.5 TH/MM3 (1.0-4.8); MEAN CELL VOLUME 81.9 FL (80.0-100.0); MEAN CORPUSCULAR HEMOGLOBIN 25.1 PG (27.0-34.0); MEAN CORPUSCULAR HGB CONC 30.7 % (32.0-36.0); MONO % 5.4 % (0.0-8.0); NEUT % 63.9 % (16.0-70.0); PLATELET COUNT 239 TH/MM3 (150-450); RED BLOOD COUNT 2.92 MIL/MM3 (4.50-5.90); RED CELL DISTRIBUTION WIDTH 26.9 % (11.6-17.2); WHITE BLOOD COUNT 5.9 TH/MM3 (4.0-11.0)
[2016-05-25 03:15] LABS: HEMO FLAGS AUTO DIFF
[2016-05-25] MEDS: ENOXAPARIN SODIUM 150 MG/ML SYRINGE SQ SCH ×2 (03:25→15:56)
[2016-05-25 03:52] LABS: BICARBONATE 40.9 MEQ/L (21.0-32.0); MAGNESIUM 1.6 MG/DL (1.5-2.5); POTASSIUM 3.6 MEQ/L (3.5-5.1)
[2016-05-25 03:54] LABS: BANDS 15 % (0-6); BASOPHILS 1 % (0-2); EOSINOPHILS 7 % (0-4); METAMYELOCYTES 3 % (0-1); MYELOCYTES 1 % (0-0); POLYS (SEG NEUTROPHILS) 47 % (16-70); PROMYELOCYTES 1 % (0-0); WBC DIFF SAMPLE 100
[2016-05-25 03:55] LABS: CORRECTED NUCLEATED RBC 9 /100 WBC (0-0); SCAN/DIFF FINAL DIFF MANUAL
[2016-05-25 03:56] LABS: PLATELET ESTIMATE SMEAR NORMAL (NORMAL); PLATELET MORPHOLOGY ENLARGED (NORMAL)
[2016-05-25] MEDS: INSULIN ASPART SUPPLEMENTAL SCALE SQ SCH (04:48)
[2016-05-25] MEDS: LEVOTHYROXINE SODIUM 50 MCG TAB PO SCH (04:49)
--- NOTE | 2016-05-25 07:05 | HHI.CCPN ---
Subjective Remarks/Hospital Course 31 year old morbidly obese (BMI 68) male with chronic respiratory failure s/p tracheostomy 4 years ago, atrial fibrillation and pulmonary embolism on Xarelto , COPD, CHF and h/o HTN. He presented from [facility] with low oxygen saturation apparently his oxygen saturation was 82% on RA. He was placed back on 6L of oxygen via his trach mask and given a breathing treatment, initially improved however he started drifting back to low 80s again. Chest x-ray showed bibasilar infiltrates and pulmonary edema. Patient was admitted to the [facility] and was started on IV steroids IV vancomycin and Zosyn and Levaquin for healthcare associated pneumonia. After starting ACV, patient was more awake but there was a significant amount of air leak around his tracheostomy. Patient has had a Shiley 6.0 Proximal XLT, but the maritime pilot balloon had been cut off. 05/02 the patient became acutely hypoxemic with a large cuff leak, underwent emergency trach exchange at bedside by Dr. Macias. FiO2 65% PEEP 14 05/13 Patient is on ventilator via trach, on Fentanyl infusion however he is awake and alert. On PRVC with FIO2 40%. Afebrile. 05/14 No acute events overnight. Tmax 99.8. Patient is awake, alert on ventilator via trach still requiring increase O2. On PRVC with PEEP: 10 and FIO2 70%. 05/15 patient acutely desaturated after he was found. Saturation went down to 70% on 100% oxygen. Bag and mask ventilation carried out, with eventual improvement on oxygen saturation to 85%. Patient was placed on PC/AC mode of ventilation, with PEEP of 15 and instructed to pressure of 30. Eventually oxygen saturation improved to 95%. Lasix him today as the chest x-ray from today shows increasing bilateral infiltrate and pulmonary edema. Also sputum culture will be sent 05/16 Patient is on Fentanyl and Diprivan infusion but awake and alert. Afebrile. On PC/AC with PEEP:15, IP: 22, IT:1.3 and FIO2 50% 05/17 Patient is off Diprivan and remains on Fentanyl infusion for sedation. On PC/AC with PEEP: down 10 and FIO2 40%. Afebrile. 05/18 Patient remains on ventilator via trach on PC/AC with PEEP:12, FIO2 40%, IP:22, IT:1.0. On Fentanyl infusion 05/19 No acute events overnight. On Fentanyl infusion but awake and alert. Afebrile. 05/20 Tolerating C Pap 17/12 FIO2 40, sats 98%. RSBI in 20s, appears can be weaned further. Afebrile. Speech therapy evaluated and ok for regular diet. Starting with full liquid. 05/21 Will wean PSV to 15/10. Tolerated full liquids, will advance to regular diet per speech recs. Subjective: 05/22 On PSV 15/10 FIO2 40 with sats 92%. Smiling today. Glad to be eating regular food again. 05/23 No acute events overnight. Remains on CPAP with PS 15, PEEP:10 and FIO2 40 %. Afebrile. Off Fentanyl drip. Afebrile. Awake and alert. 05/24 Patient is on CPAP 12/ with 40% FIO2. Afebrile. Awake and alert, on no sedation. 05/25 No acute events overnight. Patient was placed back on PC/AC overnight. Tolerated CPAP trials during day yesterday. Awake and alert. On no drips. Afebrile. Objective Vital Signs Date Time Temp Pulse Resp B/P Pulse Ox O2 Delivery O2 Flow Rate FiO2 05/25/16 06:00 87 05/25/16 04:38 96 40 05/25/16 04:00 98.2 25 160/76 05/21/16 07:58 Ventilator Intake and Output 05/24/16 05/24/16 05/25/16 08:00 16:00 00:00 Intake Total 523 ml 1050 ml 304 ml Output Total 1000 ml 1900 ml 475 ml Balance -477 ml -850 ml -171 ml Result Diagram: 05/25/16 0239 05/25/16 0239 Other Results Laboratory Tests Test 05/24/16 05/25/16 20:49 02:39 Potassium Level 3.4 MEQ/L 3.6 MEQ/L Magnesium Level 1.8 MG/DL 1.6 MG/DL White Blood Count 5.9 TH/MM3 Red Blood Count 2.92 MIL/MM3 Hemoglobin 7.3 GM/DL Hematocrit 23.9 % Mean Corpuscular Volume 81.9 FL Mean Corpuscular Hemoglobin 25.1 PG Mean Corpuscular Hemoglobin 30.7 % Concent Red Cell Distribution Width 26.9 % Platelet Count 239 TH/MM3 Mean Platelet Volume 6.8 FL Neutrophils (%) (Auto) 63.9 % Lymphocytes (%) (Auto) 25.3 % Monocytes (%) (Auto) 5.4 % Eosinophils (%) (Auto) 4.8 % Basophils (%) (Auto) 0.6 % Neutrophils # (Auto) 3.8 TH/MM3 Lymphocytes # (Auto) 1.5 TH/MM3 Monocytes # (Auto) 0.3 TH/MM3 Eosinophils # (Auto) 0.3 TH/MM3 Basophils # (Auto) 0.0 TH/MM3 CBC Comment AUTO DIFF Differential Total Cells 100 Counted Neutrophils % (Manual) 47 % Band Neutrophils % 15 % Lymphocytes % 24 % Monocytes % 1 % Eosinophils % 7 % Basophils % 1 % Neutrophils # (Manual) 4.0 TH/MM3 Metamyelocytes 3 % Myelocytes 1 % Promyelocytes 1 % Nucleated Red Blood Cells 9 /100 WBC Differential Comment FINAL DIFF MANUAL Platelet Estimate NORMAL Platelet Morphology Comment ENLARGED Basophilic Stippling HEAVY Sodium Level 136 MEQ/L Chloride Level 86 MEQ/L Carbon Dioxide Level 40.9 MEQ/L Anion Gap 9 MEQ/L Blood Urea Nitrogen 10 MG/DL Creatinine 0.19 MG/DL Estimat Glomerular Filtration 589 ML/MIN Rate Random Glucose 68 MG/DL Calcium Level 9.1 MG/DL Imaging Last Impressions Chest X-Ray 05/20/16 0000 Signed Impressions: Service Date/Time: Friday, May 20, 2016 03:21 - CONCLUSION: Persistent mid and lower lung areas of consolidation or atelectasis being worse in the right. There has been mild improvement. Garcia Lujan MD Upper Extremity Ultrasound 05/02/16 0000 Signed Impressions: Service Date/Time: April 20:51 - CONCLUSION: No DVT. Garcia Lujan MD Abdomen X-Ray 04/29/16 0000 Signed Impressions: Service Date/Time: Friday, April 29, 2016 07:12 - CONCLUSION: Suspect Dobbhoff tube in the distal stomach. Garcia Lujan MD Objective Remarks GENERAL: Patient is 31yo on ventilator via trach, awake and follows commands. Morbid obesity SKIN: Warm and dry. HEAD: Normocephalic.NGT in place with tube feeds running. EYES: No scleral icterus. No injection or drainage. NECK: Supple, trachea midline. Shiley 6.0 Proximal XLT, (new trach placed ) CARDIOVASCULAR:Tachycardic without murmurs, gallops, or rubs. RESPIRATORY: Breath sounds equal bilaterally. No accessory muscle use. GASTROINTESTINAL: Abdomen soft, obese,, non-tender, nondistended. MUSCULOSKELETAL: No cyanosis, or edema. Pedal edema. Wound on lateral aspect of right lower leg above lateral malleolus. Neuro: Awake and alert. Moves all extremities without focal deficit. Procedures Shiley 6.0 XLT tracheostomy exchange under visual direction by general surgery and with GlideScope, by anesthesiologist. Date of Insertion: Apr 24, 2016 Date of Insertion: Apr 26, 2016 Line: PICC Side: Right A/P Assessment and Plan ASSESSMENT Acute hypercapnic and hypoxemic respiratory failure Acute worsening of hypoxia due to lung de-recruitment 05/15/16 Healthcare associated pneumonia MDR Pseudomonas Sepsis/persistent fever CHF exacerbation CO2 narcosis Tracheostomy maritime pilot balloon damage -status post exchange with new Shiley 6.0 Proximal XLT 05/02/16 Chronic Respiratory Failure s/p Tracheostomy 4 years ago (Shiley 6.0 Proximal XLT) COPD/obesity hypoventilation syndrome Morbid Obesity BMI 67 History of pulmonary embolism 4 years ago Chronic atrial fibrillation Anxiety CHF (Echo 2013 EF 40-45%; ECHO 08/2015 showing a grossly normal systolic function) Hypertension Hypothyroidism PLAN NEURO: CO2 narcosis - resolved Anxiety - On morphine 4 mg IV every 3 hours as needed for breakthrough pain. -Patient is awake and alert. -Zoloft 50 daily RESP: Acute hypercapnic and hypoxemic respiratory failure Acute lung derecruitment today 05/15 Healthcare associated pneumonia Tracheostomy maritime pilot balloon damage (Shiley 6.0 Proximal XLT) s/p new trach placement 05/02 Chronic Respiratory Failure s/p Tracheostomy 4 years ago COPD/obesity hypoventilation syndrome History of pulmonary embolism 4 years ago Leukocytosis Pulmonary edema - Continue with vent support keep sat >92%- on PC/AC RR 18, IP: 22, PEEP:8, FIO2 40%, decrease PEEP:5 - PSV 12/8 40% and continue weaning as tolerated. - s/p Bronchoscopy 05/11 -follow up on BAL results-negative - DuoNeb every 6 hours scheduled, q2 prn. - Pulmicort BID (home med), Diamox 250mg IV x1 -Continue Singulair 10 mg po dailyi - Continue prednisone taper - Therapeutic Lovenox 150 mg every 12 hours CV: CHF exacerbation Pulmonary edema Paroxysmal atrial fibrillation (chronic) Hyperlipidemia - Monitor HR and BP keep MAP>65mmHg - on Cardizem 60mg QID -Continue Lipitor 10 g by mouth daily. Continue TriCor 40 mg by mouth daily - Therapeutic Lovenox 150 mg twice a day GI: Super morbid obesity with BMI of 68 -Regular diet thin liquids per speech recs. - On Pepcid 20mg BID FEN/RENAL: Hypokalemia - Monitor renal function , I/O. electrolytes replacement per protocol. - Bumex 1 mg IV q12 with KCL 40 q12 ID: Healthcare associated pneumonia Sepsis MDRO Possible cellulitis right arm Leukocytosis...trending down - Continue abx per ID ( Rocephin) today's last dose (05/12- 05/25) -Urine cx: Proteus Mirabilis 05/05 -Sputum cx: Providencia 05/05 -Wound cx: 05/13 Proteus, Pseudomonas, Group D Enterococcus - Wound culture Pseudomonas MDR 04/27 - Sputum culture-Pseudomonas MDR- 04/27 - Bronchoscopy and re-culture 05/10 follow up on BAL results-neg to date - Follow up on sputum cx from 05/15- NGTD HEME: History of PE on chronic anticoagulation with Xarelto Anemia, iron deficiency and anemia of critical illness. -Monitor CBC, -Xarelto for PE 4 yrs ago. -Xarelto.held, On Lovenox 150 mg twice a day -Ferrous sulfate 300 daily. ENDO: Hypothyroidism -On SSI (Low scale) -Continue levothyroxine 50 mcg po daily PROPH: -Bilateral lower extremity SCDs. Lovenox DVT therapeutic dose. IV Protonix for GI prophylaxis LINES: - PICC line RUE- No DVT on US Out of bed with assistance. PT out of bed with vent. OT. Level 3 Flory Martino MD May 25, 2016 07:05
[2016-05-25] MEDS ORDERED: GLUCAGON 1 MG/ML VIAL OTHER PRN (07:15)
[2016-05-25] MEDS ORDERED: DEXTROSE 50% IN WATER 50 ML VIAL(D50) IV PUSH PRN (07:15)
--- NOTE | 2016-05-25 07:47 | HHI.FPPN ---
Subjective Remarks No acute events. Did well overnight. No vomiting or diarrhea. No chest pain or difficulty breathing. No abdominal pain. No calf tenderness. Improved functioning of right arm. Objective Vitals Vital Signs Date Time Temp Pulse Resp B/P Pulse Ox O2 Delivery O2 Flow Rate FiO2 05/25/16 06:00 87 05/25/16 04:38 96 40 05/25/16 04:00 93 05/25/16 04:00 98.2 93 25 160/76 95 05/25/16 04:00 40 05/25/16 02:00 99 05/25/16 00:15 95 40 05/25/16 00:00 87 05/25/16 00:00 40 05/25/16 00:00 99.0 87 18 139/67 94 05/24/16 22:00 85 05/24/16 20:00 82 05/24/16 20:00 97.9 82 17 135/68 94 05/24/16 20:00 40 05/24/16 19:37 94 40 05/24/16 18:11 96 40 05/24/16 18:00 85 05/24/16 16:00 98.4 91 18 150/7 93 05/24/16 16:00 40 05/24/16 16:00 91 05/24/16 14:54 93 40 05/24/16 14:00 87 05/24/16 12:11 93 40 05/24/16 12:00 98.4 87 20 132/62 92 05/24/16 12:00 40 05/24/16 12:00 87 05/24/16 10:00 101 05/24/16 08:11 93 40 05/24/16 08:00 40 05/24/16 08:00 98.1 111 18 91/86 96 05/24/16 08:00 111 I/O 05/24/16 05/24/16 05/24/16 05/25/16 05/25/16 05/25/16 07:00 15:00 23:00 07:00 15:00 23:00 Intake Total 523 ml 1050 ml 304 ml 387 ml Output Total 1000 ml 1900 ml 475 ml 825 ml Balance -477 ml -850 ml -171 ml -438 ml Intake Oral 480 ml 600 ml 240 ml 240 ml IV Total 43 ml 450 ml 64 ml 147 ml Output Urine Total 1000 ml 1900 ml 475 ml 825 ml # Bowel Movements 0 1 Result Diagram: 05/25/1623805/25/16238 Objective Remarks GENERAL: Morbidly obese. On mechanical ventilation, awake and alert SKIN: Warm and dry. No rashes or lesions. Ecchymosis on abdomen superior to umbilicus in area of SQ anticoagulant injections. Grade 2 ulcer outer right foot with good granulation tissue, no purulent drainage. HEAD: Normocephalic. Atraumatic. ENT: No nasal drainage. Tracheotomy site is clean and dry without drainage. CARDIOVASCULAR: Distant heart sounds. Tachycardic with regular rhythm; normal S1 /S2, no murmurs, gallops, or rubs. RESPIRATORY: On mechanical ventilation. A/C 18, 40 FiO2, 8 PEEP. Clear to auscultation bilaterally. No crackles or wheezes. GASTROINTESTINAL: Abdomen soft, obese, non-distended, non-tender. MUSCULOSKELETAL: Lower extremity edema. Decubitus ulcer prophylaxis boots in place. NEURO: Awake, alert. Able to speak in short sentences, voice hoarse with trach. Right arm with numbness/tingling, some loss of movement, improved per patient and exam. Gate Watch strength 4/5, compared to 5/5 on left. Date of Insertion: Apr 24, 2016 Date of Insertion: Apr 26, 2016 Line: PICC Side: Right A/P Assessment and Plan Assessment and Plan Acute hypercapnic/hypoxemic respiratory failure Healthcare associated pneumonia with MDR Pseudomonas UTI with proteus mirabilis Sepsis CHF exacerbation CO2 narcosis Chronic Respiratory Failure s/p Tracheostomy 4 years ago (Shiley 6.0 Proximal XLT) COPD/obesity hypoventilation syndrome Morbid Obesity BMI 66 History of pulmonary embolism 4 years ago Chronic atrial fibrillation Anxiety CHF (Echo 2013 EF 40-45%; ECHO 08/2015 showing grossly normal systolic function) Hypertension Hypothyroidism PLAN NEURO: answering questions appropriately, awake and alert Anxiety -Wean sedatives as tolerated while maintaining synchrony with vent - Sertraline for depression/anxiety, reports better moods RESP: A/C 18 rate, PEEP 8, FiO2 40 Acute hypercapnic/hypoxemic respiratory failure Healthcare associated pneumonia Chronic Respiratory Failure s/p Tracheostomy 4 years ago COPD/obesity hypoventilation syndrome History of pulmonary embolism 4 years ago Pulmonary edema -Continue mechanical ventilation. Wean to keep SaO2 >88% -Healthcare associated pneumonia (MDRO) is being treated with IV Rocephin ( - ). Will discontinue Rocephin 05/25 if doing well. -Sputum culture revealed Pseudomonas MDR, providencia stuartii -DuoNeb every 4 hours scheduled -Pulmicort BID (home med) -Continue prednisone 30 mg with taper -Therapeutic Lovenox 150 mg every 12 hours CV: CHF exacerbation Pulmonary edema Chronic atrial fibrillation -Bumex 1 mg q12hrs, monitor I's and O's. -A. fib rate controlled -Therapeutic Lovenox 150 mg twice a day GI: Super morbid obesity with BMI of 68 -Heart healthy diet. -Pepcid for GI prophylaxis -SSI, monitor glucose, doing well. - Hgb low but stable, monitor. - Would benefit from bariatric surgery when stable. : -Monitor potassium, phosphorus and magnesium. -Potassium improved, continue replacement protocol - Bumex 1 mg q12hrs. -Monitor renal function -Milan catheter -Strict I&O ID: Healthcare associated pneumonia Sepsis MDRO Possible cellulitis right arm and fast Leukocytosis -IV rocephin (05/07 - ) until 05/25 to cover Proteus and Providencia, colistin nebs discontinued, Zyvox for cellulitis discontinued, Diflucan discontinued -Blood urine and blood culture NGTD. -Wound culture Pseudomonas MDR -Sputum culture-Pseudomonas MDR -ID consulted, follow-up recommendations -Blood cx from 05/03 negative. Urine culture positive for proteus mirabilis. HEME: History of PE on chronic anticoagulation with Xarelto Leukocytosis -Monitor CBC, CMP, coags -Xarelto for PE 4 yrs ago, holding for Lovenox. -Lovenox 150 mg twice a day - Hgb 7.3, monitor - Ordered hemoccult test, pending ENDO: Hypothyroidism -Electrolyte replacement protocol -Continue levothyroxine 25 mcgs IV daily - Prednisone 30 mg taper. - Sliding scale insulin only. PROPH: -Bilateral lower extremity SCDs. Lovenox therapeutic dosing. IV Protonix for GI prophylaxis LINES: - PICC line Discharge Planning Patient will need to be weaned from mechanical ventilation with stable clinical status. Hopeful for patient to be able to return to long-term rehab facility. If he qualifies can consider pred[facility] animal [facility] vent facility depending on how he does. Joshua Morgan MD R2 May 25, 2016 07:47
[2016-05-25] MEDS: INSULIN NovoLIN REGULAR SUPPLEMENTAL SCALE SQ SCH ×5 (08:00→23:25)
[2016-05-25] MEDS: RESP: BUDESONIDE 0.5 MG/2 ML NEB NEB SCH ×2 (08:40→19:40)
[2016-05-25] MEDS: SERTRALINE HCL 50 MG TAB PO SCH (08:59)
[2016-05-25] MEDS: cefTRIAXone INJ 2,000 MG in SODIUM CHLORIDE 0.9% INJ 100 ML IV SCH (08:59)
[2016-05-25] MEDS: FERROUS SULFATE 300 MG /5ML UDC PO SCH (08:59)
[2016-05-25] MEDS: predniSONE 5 MG/5 ML CUP PO SCH (08:59)
[2016-05-25] MEDS: BUMETANIDE INJ 1 MG/4 ML VIAL IV PUSH SCH ×2 (08:59→20:11)
[2016-05-25] MEDS: ALLOPURINOL 300 MG TAB PO SCH (09:00)
[2016-05-25] MEDS: FAMOTIDINE 20 MG TAB PO SCH ×2 (09:00→20:08)
[2016-05-25] MEDS: CHLORHEXIDINE 0.12% (ORAL KIT) 15 ML CUP MT SCH ×2 (09:00→20:09)
[2016-05-25] MEDS: ATORVASTATIN 10 MG TAB PO SCH (09:00)
[2016-05-25] MEDS: POTASSIUM CHLORIDE 20 MEQ CONTROLLED RELEASE TAB PO SCH ×2 (09:00→20:08)
[2016-05-25] MEDS: FENOFIBRATE 48 MG TAB PO SCH (09:00)
[2016-05-25] MEDS: DILTIAZEM HCL 60 MG TAB PO SCH ×4 (09:00→20:08)
[2016-05-25] MEDS: MONTELUKAST SODIUM 10 MG TAB PO SCH (09:00)
[2016-05-25] MEDS: MICONAZOLE NITRATE 2% CREAM 15 GM TOP SCH ×2 (09:02→23:26)
[2016-05-25] MEDS: COLLAGENASE OINT 30 GM TUBE TOP SCH (09:02)
[2016-05-25] MEDS: NYSTATIN 100,000 U/GM PWD 15 GM BTL TOPICAL SCH ×2 (09:02→20:12)
[2016-05-25] MEDS: SODIUM CHLORIDE 0.9% FLUSH 5 ML FLUSH FLUSH SCH ×2 (09:44→20:09)
[2016-05-26] VITALS (19 sets, daily range): BP systolic 156–163; BP diastolic 74–85; PULSE 80–93; RESP 18–33; TEMP 98.2–98.7; O2SAT 97–100
[2016-05-26] MEDS: INSULIN NovoLIN REGULAR SUPPLEMENTAL SCALE SQ SCH ×5 (04:00→20:00)
[2016-05-26] MEDS: ENOXAPARIN SODIUM 150 MG/ML SYRINGE SQ SCH ×2 (04:16→15:24)
[2016-05-26] MEDS: LEVOTHYROXINE SODIUM 50 MCG TAB PO SCH (04:16)
[2016-05-26 05:03] LABS: AUTOMATED NEUTROPHIL # 3.2 TH/MM3 (1.8-7.7); BASOPHIL % 0.8 % (0.0-2.0); EOSINOPHIL # 0.3 TH/MM3 (0-0.4); EOSINOPHIL % 5.1 % (0.0-4.0); HEMATOCRIT 25.1 % (39.0-51.0); LYMPH % 31.8 % (9.0-44.0); LYMPHOCYTE # 1.8 TH/MM3 (1.0-4.8); MEAN CELL VOLUME 81.4 FL (80.0-100.0); MEAN CORPUSCULAR HGB CONC 30.7 % (32.0-36.0); MONO % 6.5 % (0.0-8.0); NEUT % 55.8 % (16.0-70.0); PLATELET COUNT 280 TH/MM3 (150-450); RED BLOOD COUNT 3.08 MIL/MM3 (4.50-5.90); RED CELL DISTRIBUTION WIDTH 27.7 % (11.6-17.2); WHITE BLOOD COUNT 5.8 TH/MM3 (4.0-11.0)
[2016-05-26 05:07] LABS: HEMO FLAGS AUTO DIFF
[2016-05-26 05:23] LABS: MAGNESIUM 1.5 MG/DL (1.5-2.5); POTASSIUM 3.2 MEQ/L (3.5-5.1)
[2016-05-26] MEDS: POTASSIUM CHLOR 40 MEQ PREMIX 100 ML IV PRN ×2 (06:16→06:18)
[2016-05-26 06:47] LABS: CORRECTED NUCLEATED RBC 7 /100 WBC (0-0); EOSINOPHILS 4 % (0-4); METAMYELOCYTES 1 % (0-1); MYELOCYTES 4 % (0-0); NEUTROPHIL # MANUAL DIFF 3.4 TH/MM3 (1.8-7.7); OVALOCYTES 1+ (NORMAL); POLYS (SEG NEUTROPHILS) 52 % (16-70); PROMYELOCYTES 1 % (0-0); STOMATOCYTES 1+ (NORMAL); WBC DIFF SAMPLE 100
[2016-05-26 06:48] LABS: PLATELET ESTIMATE SMEAR NORMAL (NORMAL); PLATELET MORPHOLOGY NORMAL (NORMAL); SCAN/DIFF FINAL DIFF MANUAL
[2016-05-26] MEDS: RESP: BUDESONIDE 0.5 MG/2 ML NEB NEB SCH ×2 (08:07→20:41)
[2016-05-26] MEDS: ONDANSETRON HCL 4 MG/2 ML VIAL IV PUSH PRN ×3 (09:15→20:52)
[2016-05-26] MEDS: CHLORHEXIDINE 0.12% (ORAL KIT) 15 ML CUP MT SCH ×2 (09:18→20:35)
[2016-05-26] MEDS: FAMOTIDINE 20 MG TAB PO SCH ×2 (10:26→20:34)
[2016-05-26] MEDS: POTASSIUM CHLORIDE 20 MEQ CONTROLLED RELEASE TAB PO SCH ×2 (10:26→20:34)
[2016-05-26] MEDS: FENOFIBRATE 48 MG TAB PO SCH (10:26)
[2016-05-26] MEDS: MONTELUKAST SODIUM 10 MG TAB PO SCH (10:26)
[2016-05-26] MEDS: ALLOPURINOL 300 MG TAB PO SCH (10:27)
[2016-05-26] MEDS: FERROUS SULFATE 300 MG /5ML UDC PO SCH (10:27)
[2016-05-26] MEDS: DILTIAZEM HCL 60 MG TAB PO SCH ×4 (10:27→20:33)
[2016-05-26] MEDS: SERTRALINE HCL 50 MG TAB PO SCH (10:27)
[2016-05-26] MEDS: predniSONE 5 MG/5 ML CUP PO SCH (10:27)
[2016-05-26] MEDS: ATORVASTATIN 10 MG TAB PO SCH (10:27)
[2016-05-26] MEDS: NYSTATIN 100,000 U/GM PWD 15 GM BTL TOPICAL SCH ×2 (10:28→20:34)
[2016-05-26] MEDS: SODIUM CHLORIDE 0.9% FLUSH 5 ML FLUSH FLUSH SCH ×2 (10:28→20:35)
[2016-05-26] MEDS: COLLAGENASE OINT 30 GM TUBE TOP SCH (10:28)
[2016-05-26] MEDS: MICONAZOLE NITRATE 2% CREAM 15 GM TOP SCH ×2 (10:28→20:34)
--- NOTE | 2016-05-26 10:28 | HHI.FPPN ---
Subjective Remarks No acute events overnight, AFVSS. BP still slightly high at ~155/75. Tachycardia resolved, RR approx 30 last set of vital signs. On PEEP 8, FIO2 40% . No CP/SOB overnight. Right arm weakness continuing to improve. Had some nausea last night but did not vomit, tolerating PO diet well still. (Obed Glaser MD R1) Objective Vitals Vital Signs Date Time Temp Pulse Resp B/P Pulse Ox O2 Delivery O2 Flow Rate FiO2 05/26/16 10:00 92 05/26/16 08:10 99 Ventilator 40 05/26/16 08:07 99 40 05/26/16 08:00 98.3 88 26 163/83 100 05/26/16 08:00 40 05/26/16 08:00 92 05/26/16 06:00 87 05/26/16 04:15 99 40 05/26/16 04:00 98.4 84 27 156/74 99 05/26/16 04:00 84 05/26/16 04:00 40 05/26/16 02:00 80 05/26/16 01:00 99 40 05/26/16 00:00 98.2 83 33 156/78 99 05/26/16 00:00 83 05/26/16 00:00 40 05/25/16 22:00 81 05/25/16 21:53 100 40 05/25/16 20:00 84 05/25/16 20:00 40 05/25/16 20:00 98.6 84 21 155/81 99 05/25/16 19:38 100 40 05/25/16 18:00 84 05/25/16 16:00 40 05/25/16 16:00 85 05/25/16 16:00 98.3 86 20 158/80 98 05/25/16 15:32 97 40 05/25/16 14:00 89 05/25/16 12:30 40 05/25/16 12:30 96 40 05/25/16 12:00 98.9 101 36 148/78 98 05/25/16 12:00 93 05/25/16 12:00 40 I/O 05/25/16 05/25/16 05/25/16 05/26/16 05/26/16 05/26/16 07:00 15:00 23:00 07:00 15:00 23:00 Intake Total 387 ml 551 ml 592 ml 1645 ml Output Total 825 ml 1000 ml 900 ml 1300 ml Balance -438 ml -449 ml -308 ml 345 ml Intake Oral 240 ml 360 ml 480 ml 240 ml IV Total 147 ml 191 ml 112 ml 785 ml Tube Feeding 580 ml Tube Irrigant 40 ml Output Urine Total 825 ml 1000 ml 900 ml 1200 ml Stool Total 100 ml # Bowel Movements 1 (Obed Glaser MD R1) Result Diagram: 05/26/16 0400 05/26/16 0400 Imaging Last Impressions Chest X-Ray 05/20/16 0000 Signed Impressions: Service Date/Time: Friday, May 20, 2016 03:21 - CONCLUSION: Persistent mid and lower lung areas of consolidation or atelectasis being worse in the right. There has been mild improvement. Garcia Lujan MD Upper Extremity Ultrasound 05/02/16 0000 Signed Impressions: Service Date/Time: April 20:51 - CONCLUSION: No DVT. Garcia Lujan MD Abdomen X-Ray 04/29/16 0000 Signed Impressions: Service Date/Time: Friday, April 29, 2016 07:12 - CONCLUSION: Suspect Dobbhoff tube in the distal stomach. Garcia Lujan MD Objective Remarks GENERAL: Morbidly obese. On mechanical ventilation, awake and alert SKIN: Warm and dry. No rashes or lesions. Ecchymosis on abdomen superior to umbilicus in area of SQ anticoagulant injections. Grade 2 ulcer outer right foot with good granulation tissue, no purulent drainage. HEAD: Normocephalic. Atraumatic. ENT: No nasal drainage. Tracheotomy site is clean and dry without drainage. CARDIOVASCULAR: Distant heart sounds. Tachycardic with regular rhythm; normal S1 /S2, no murmurs, gallops, or rubs. RESPIRATORY: On mechanical ventilation. A/C 18, 40 FiO2, 8 PEEP. Clear to auscultation bilaterally. No crackles or wheezes. GASTROINTESTINAL: Abdomen soft, obese, non-distended, non-tender. MUSCULOSKELETAL: Lower extremity edema. Decubitus ulcer prophylaxis boots in place. NEURO: Awake, alert. Able to speak in short sentences, voice hoarse with trach. Right arm with numbness/tingling, some loss of movement, improved per patient and exam. Outside Event Sales Specialist strength 4/5, compared to 5/5 on left. Medications and IVs Last Impressions Chest X-Ray 05/20/16 0000 Signed Impressions: Service Date/Time: Friday, May 20, 2016 03:21 - CONCLUSION: Persistent mid and lower lung areas of consolidation or atelectasis being worse in the right. There has been mild improvement. Garcia Lujan MD Upper Extremity Ultrasound 05/02/16 0000 Signed Impressions: Service Date/Time: April 20:51 - CONCLUSION: No DVT. Garcia Lujan MD Abdomen X-Ray 04/29/16 0000 Signed Impressions: Service Date/Time: Friday, April 29, 2016 07:12 - CONCLUSION: Suspect Dobbhoff tube in the distal stomach. Garcia Lujan MD (Obed Glaser MD R1) Date of Insertion: Apr 24, 2016 (Obed Glaser MD R1) Date of Insertion: Apr 26, 2016 Line: PICC Side: Right (Obed Glaser MD R1) A/P Assessment and Plan Assessment and Plan Acute hypercapnic/hypoxemic respiratory failure Healthcare associated pneumonia with MDR Pseudomonas UTI with proteus mirabilis Sepsis CHF exacerbation CO2 narcosis Chronic Respiratory Failure s/p Tracheostomy 4 years ago (Shiley 6.0 Proximal XLT) COPD/obesity hypoventilation syndrome Morbid Obesity BMI 66 History of pulmonary embolism 4 years ago Chronic atrial fibrillation Anxiety CHF (Echo 2013 EF 40-45%; ECHO 08/2015 showing grossly normal systolic function) Hypertension Hypothyroidism PLAN NEURO: answering questions appropriately, awake and alert Anxiety -Wean sedatives as tolerated while maintaining synchrony with vent - Sertraline for depression/anxiety, reports better moods RESP: A/C 18 rate, PEEP 8, FiO2 40 Acute hypercapnic/hypoxemic respiratory failure Healthcare associated pneumonia Chronic Respiratory Failure s/p Tracheostomy 4 years ago COPD/obesity hypoventilation syndrome History of pulmonary embolism 4 years ago Pulmonary edema -Continue mechanical ventilation. Wean to keep SaO2 >88% -Healthcare associated pneumonia (MDRO) is being treated with IV Rocephin ( - ). Will discontinue Rocephin 05/25 if doing well. -Sputum culture revealed Pseudomonas MDR, providencia stuartii -DuoNeb every 4 hours scheduled -Pulmicort BID (home med) -Continue prednisone 30 mg with taper -Therapeutic Lovenox 150 mg every 12 hours CV: CHF exacerbation Pulmonary edema Chronic atrial fibrillation -Bumex 1 mg q12hrs, monitor I's and O's. -A. fib rate controlled -Therapeutic Lovenox 150 mg twice a day GI: Super morbid obesity with BMI of 68 -Heart healthy diet. -Pepcid for GI prophylaxis -SSI, monitor glucose, doing well. - Hgb low but stable, monitor. - Would benefit from bariatric surgery when stable. : -Monitor potassium, phosphorus and magnesium. -Potassium improved, continue replacement protocol - Bumex 1 mg q12hrs. -Monitor renal function -Milan catheter -Strict I&O ID: Healthcare associated pneumonia Sepsis MDRO Possible cellulitis right arm and fast Leukocytosis -IV rocephin (05/07 - ) until 05/25 to cover Proteus and Providencia, colistin nebs discontinued, Zyvox for cellulitis discontinued, Diflucan discontinued -Blood urine and blood culture NGTD. -Wound culture Pseudomonas MDR -Sputum culture-Pseudomonas MDR -ID consulted, follow-up recommendations -Blood cx from 05/03 negative. Urine culture positive for proteus mirabilis. HEME: History of PE on chronic anticoagulation with Xarelto Leukocytosis -Monitor CBC, CMP, coags -Xarelto for PE 4 yrs ago, holding for Lovenox. -Lovenox 150 mg twice a day - Hgb 7.3, monitor - Ordered hemoccult test, pending ENDO: Hypothyroidism -Electrolyte replacement protocol -Continue levothyroxine 25 mcgs IV daily - Prednisone 30 mg taper. - Sliding scale insulin only. PROPH: -Bilateral lower extremity SCDs. Lovenox therapeutic dosing. IV Protonix for GI prophylaxis LINES: - PICC line Discharge Planning Patient will need to be weaned from mechanical ventilation with stable clinical status. Hopeful for patient to be able to return to long-term rehab facility. If he qualifies can consider manager long term care vent facility depending on how he does. ( Obed Glaser MD R1) Attending Attestation Patient seen and examined. Discussed with Dr. Glaser. Agree with assessment and plan as documented. (PrevatteDarryl Jr., MD) Problem List: (1) On mechanically assisted ventilation Status: Acute Plan: Critical care actively managing acute hypercapnic and hypoxemic respiratory failure and HCAP at this time. He has obesity hypoventilation and manager long term care the only solution is to lose 100+ lbs. He may be able to get gastric banding/bypass at some point though current condition prevents this. Started discussion about this 05/17 but will also check with case management to see his past Psychiatric history or whether his mother can influence him to take the steps necessary to save his life. Patient placed on mechanical ventilation on 04/24, FiO2 now 40% with PEEP of 8 S/p urgent/emergent trach exchange 05/02 due to acute hypoxemia and large cuff leak S/p course of solumedrol Continue to taper PO prednisone (currently 20 mg PO daily) until 06/03 (2) HCAP (healthcare-associated pneumonia) Status: Resolved Plan: Repeat ABG on 04/26 showed improvement with CO2 56 with pH 7.40 05/01 BCXs no growth (final) 05/03 BCx no growth (final) 05/04 BCx no growth (final) CXR 04/29 showing stable bibasilar consolidative infiltrates 04/30 CXR shows bilateral airspace disease greater in the right lower lobe 05/05 CXR showing improved aeration bilaterally 04/27 Sputum culture growing resistant pseudomonas 05/04 repeat sputum culture munoz-sensitive Providencia stuartii 05/05 proteus mirabilis 05/10 no fungal or bacterial growth Antibiotic History Zosyn 4.5gm IV q6h (04/24 - 04/29) Levaquin 750mg IV q24h (04/24-04/30) Zerbaxa 1.5 g IV q8h (04/29 - 05/07) Vancomycin IV (04/24 - 05/06) Ceftriaxone IV (05/07 - 05/25) Linezolid 600 mg PO BID (05/06 - 05/13) Plan - Infectious Disease consulted, now signed off * S/P multiple Abx, see above - Duonebs q2h (3) Yeast UTI Status: Resolved Plan: 05/01 Urine CX growing heather albicans 05/05 repeat UA with large LE, negative nitrite, 182 WBCs; culture grew Proteus Mirabilis Completed course of Diflucan (4) Cellulitis of chest wall Status: Resolved Plan: Resolved - Completed course of linezolid 600 mg PO BID (05/06-11/14) per ID recs (5) CHF (congestive heart failure) Status: Chronic Plan: Last ECHO 09/18/2015 showing a grossly normal systolic function with no definitive EF as it was difficult to assess, ECHO on 05/2014 with EF of 40-45% with mildly dilated left atrium 04/25 ECHO was limited due to poor image quality, EF could not be adequately estimated. Systolic function appears to be grossly normal. BNP on admission 419, repeat BNP 151. suspect cardiac problems from his hypoventilation. Critical care actively managing diuresis - Lasix drip discontinued - Bumex Discontinued - Completed 3 days of acetazolamide (6) Atrial fibrillation Status: Chronic Plan: Last EKG in sinus rhythm, likely AFib is paroxysmal HR now wnl Home dose of Xarelto 20 mg po daily has been held. Currently on Lovenox 150mg SQ Q12H (7) Depression Status: Acute Plan: Likely chronic and due to prolonged illness Has felt much more positive since titrating sertraline * Sertraline 50 mg PO daily * Will continue to titrate upward based on symptoms, feels very positive at present (8) Tracheostomy present Status: Chronic Plan: S/p urgent/emergent trach exchange 05/02 due to acute hypoxemia and large cuff leak Has been stable since procedure (9) HTN (hypertension) Status: Chronic Plan: BPs slightly elevated Holding home BP medications, consider restarting in next day or so now that clinically more stable (10) Morbid obesity with BMI of 60.0-69.9, adult Status: Chronic Plan: [place]. obesity hypoventilation syndrome causes his respiratory problems. Continue Zoloft 50 mg and will increase based on symptoms. nursing home plan for bariatric surgery, will begin discussion and coordination once more medically stable (11) Hypothyroidism Status: Chronic Plan: Synthroid 50 mcg PO daily (12) Nutrition, metabolism, and development symptoms Status: Acute Plan: Fluids: PO only Electrolytes: Monitor and replete when necessary per protocol Nutrition: Heart Healthy diet DVT PPx: Therapeutic Lovenox 150mg subq q12h Glucose: Insulin medium dose sliding scale to control blood sugar, not requiring insulin at present; currently stable around 100-150 (Obed Glaser MD R1) Problem Qualifiers (1) CHF (congestive heart failure): Qualified Code: I50.9 - Acute on chronic congestive heart failure, unspecified congestive heart failure type (2) Atrial fibrillation: Qualified Code: I48.2 - Chronic atrial fibrillation (3) Depression: Qualified Code: F32.9 - Reactive depression (4) HTN (hypertension): Qualified Code: I10 - Essential hypertension (5) Hypothyroidism: Qualified Code: E03.9 - Hypothyroidism, unspecified type Obed Glaser MD May 26, 2016 10:28 Darryl Wright Jr., MD May 26, 2016 14:48
[2016-05-26] MEDS: BUMETANIDE INJ 1 MG/4 ML VIAL IV PUSH SCH ×2 (10:32→20:52)
--- NOTE | 2016-05-26 10:34 | HHI.PR ---
Addendum to Inpatient Note Addendum Reason: Additional Documentation Additional Information Service Handoff Note 31 year old male with a PMH of chronic respiratory failure s/p tracheostomy 4 years ago receiving 6L O2 via trach tube, morbid obesity with BMI 67.6, paroxysmal atrial fibrillation and remote pulmonary embolism on Xarelto, CHF ( last ECHO 09/18/2015 showing a grossly normal systolic function with EF difficult to assess due to body habitus), and HTN who presented after O2 desats at his [facility]. Patient after admission acutely decompensated requiring mechanical ventilation via existing tracheostomy tube. S/p emergent trach exchange on 05/02 due to air leak. S/p antibiotic treatment for HCAP and antifungal treatment of yeast UTI per Infectious Disease recs. Patient currently stable, remains on ventilator and is being actively weaned per critical care. Once off vent will likely return to SNF with trach still in place and will need good follow-up and discussion of bariatric surgery. Obed Glaser MD R1 May 26, 2016 10:34 am
--- NOTE | 2016-05-26 16:58 | HHI.CCPN ---
Subjective Remarks/Hospital Course 31 year old morbidly obese (BMI 68) male with chronic respiratory failure s/p tracheostomy 4 years ago, atrial fibrillation and pulmonary embolism on Xarelto , COPD, CHF and h/o HTN. He presented from [facility] with low oxygen saturation apparently his oxygen saturation was 82% on RA. He was placed back on 6L of oxygen via his trach mask and given a breathing treatment, initially improved however he started drifting back to low 80s again. Chest x-ray showed bibasilar infiltrates and pulmonary edema. [facility] and was started on IV steroids IV vancomycin and Zosyn and Levaquin for healthcare associated pneumonia. After starting ACV, patient was more awake but there was a significant amount of air leak around his tracheostomy. Patient has had a Shiley 6.0 Proximal XLT, but the airplane pilot commercial balloon had been cut off. 05/02 the patient became acutely hypoxemic with a large cuff leak, underwent emergency trach exchange at bedside by Dr. Macias. FiO2 65% PEEP 14 05/13 Patient is on ventilator via trach, on Fentanyl infusion however he is awake and alert. On PRVC with FIO2 40%. Afebrile. 05/14 No acute events overnight. Tmax 99.8. Patient is awake, alert on ventilator via trach still requiring increase O2. On PRVC with PEEP: 10 and FIO2 70%. 05/15 patient acutely desaturated after he was found. Saturation went down to 70% on 100% oxygen. Bag and mask ventilation carried out, with eventual improvement on oxygen saturation to 85%. Patient was placed on PC/AC mode of ventilation, with PEEP of 15 and instructed to pressure of 30. Eventually oxygen saturation improved to 95%. Lasix him today as the chest x-ray from today shows increasing bilateral infiltrate and pulmonary edema. Also sputum culture will be sent 05/16 Patient is on Fentanyl and Diprivan infusion but awake and alert. Afebrile. On PC/AC with PEEP:15, IP: 22, IT:1.3 and FIO2 50% 05/17 Patient is off Diprivan and remains on Fentanyl infusion for sedation. On PC/AC with PEEP: down 10 and FIO2 40%. Afebrile. 05/18 Patient remains on ventilator via trach on PC/AC with PEEP:12, FIO2 40%, IP:22, IT:1.0. On Fentanyl infusion 05/19 No acute events overnight. On Fentanyl infusion but awake and alert. Afebrile. 05/20 Tolerating C Pap 17/12 FIO2 40, sats 98%. RSBI in 20s, appears can be weaned further. Afebrile. Speech therapy evaluated and ok for regular diet. Starting with full liquid. 05/21 Will wean PSV to 15/10. Tolerated full liquids, will advance to regular diet per speech recs. Subjective: 05/22 On PSV 15/10 FIO2 40 with sats 92%. Smiling today. Glad to be eating regular food again. 05/23 No acute events overnight. Remains on CPAP with PS 15, PEEP:10 and FIO2 40 %. Afebrile. Off Fentanyl drip. Afebrile. Awake and alert. 05/24 Patient is on CPAP 12/ with 40% FIO2. Afebrile. Awake and alert, on no sedation. 05/25 No acute events overnight. Patient was placed back on PC/AC overnight. Tolerated CPAP trials during day yesterday. Awake and alert. On no drips. Afebrile. 05/26 Afebrile. Tmax 98.6. Today the patient complained of nausea requiring Zofran. The patient has a lack of an appetite, with noted hypoglycemia early this a.m. blood glucose level 69. Patient tolerating CPAP well greater than 12 hours in the last 24 hours. Objective Vital Signs Date Time Temp Pulse Resp B/P Pulse Ox O2 Delivery O2 Flow Rate FiO2 05/26/16 16:00 88 05/26/16 16:00 98.7 20 162/85 100 05/26/16 16:00 40 05/26/16 08:10 Ventilator Intake and Output 05/25/16 05/25/16 05/25/16 07:59 15:59 23:59 Intake Total 387 ml 551 ml 592 ml Output Total 825 ml 1000 ml 900 ml Balance -438 ml -449 ml -308 ml Result Diagram: 05/26/16 0400 05/26/16 0400 Imaging Last Impressions Chest X-Ray 05/20/16 0000 Signed Impressions: Service Date/Time: Friday, May 20, 2016 03:21 - CONCLUSION: Persistent mid and lower lung areas of consolidation or atelectasis being worse in the right. There has been mild improvement. Garcia Lujan MD Upper Extremity Ultrasound 05/02/16 0000 Signed Impressions: Service Date/Time: April 20:51 - CONCLUSION: No DVT. Garcia Lujan MD Abdomen X-Ray 04/29/16 0000 Signed Impressions: Service Date/Time: Friday, April 29, 2016 07:12 - CONCLUSION: Suspect Dobbhoff tube in the distal stomach. Garcia Lujan MD Objective Remarks GENERAL: Patient is 31yo on ventilator via trach, awake and follows commands. Morbid obesity SKIN: Warm and dry. HEAD: Normocephalic.NGT in place with tube feeds running. EYES: No scleral icterus. No injection or drainage. NECK: Supple, trachea midline. Shiley 6.0 Proximal XLT, (new trach placed ) CARDIOVASCULAR:Tachycardic without murmurs, gallops, or rubs. RESPIRATORY: Breath sounds equal bilaterally. No accessory muscle use. GASTROINTESTINAL: Abdomen soft, obese,, non-tender, nondistended. Multiple noted areas of ecchymotic bruising secondary to subcutaneous injections MUSCULOSKELETAL: No cyanosis, or edema. Pedal edema. Wound on lateral aspect of right lower leg above lateral malleolus , dressing C/D/I. Neuro: Awake and alert. Moves all extremities without focal deficit. Procedures Shiley 6.0 XLT tracheostomy exchange under visual direction by general surgery and with GlideScope, by anesthesiologist. 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 -GCS 14 T. 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 - s/p Bronchoscopy 05/11 -follow up on BAL results-negative - DuoNeb every 6 hours scheduled, q 2 prn. - Pulmicort BID (home med), Diamox 250mg IV x1 -Continue Singulair 10 mg po daily - Continue prednisone taper - Therapeutic Lovenox 150 mg every 12 hours, consider transition to Xarelto ( home med) CV: CHF exacerbation Pulmonary edema Paroxysmal atrial fibrillation (chronic) Hyperlipidemia - Monitor HR and BP keep MAP>65mmHg - on Cardizem 60mg QID -Continue Lipitor 10 g by mouth daily. Continue TriCor 40 mg by mouth daily - Therapeutic Lovenox 150 mg twice a day GI: Super morbid obesity with BMI of 68 -Regular diet thin liquids per speech recs. - On Pepcid 20mg BID FEN/RENAL: Hypokalemia - Monitor renal function , I/O. electrolytes replacement per protocol. - Bumex 1 mg IV q12 with KCL 40 q12 - Mag level 1.5 ID: Healthcare associated pneumonia Sepsis MDRO Possible cellulitis right arm Leukocytosis-resolved - Continue abx per ID ( Rocephin) today's last dose (05/12- 05/25) -Urine cx: Proteus Mirabilis 05/05 -Sputum cx: Providencia 05/05- resolved -Wound cx: 05/13 Proteus, Pseudomonas, Group D Enterococcus - Wound culture Pseudomonas MDR 04/27 - Sputum culture-Pseudomonas MDR- 04/27 - Bronchoscopy and re-culture 05/10 follow up on BAL results-neg to date - Follow up on sputum cx from 05/15- NGTD HEME: History of PE on chronic anticoagulation with Xarelto Anemia, iron deficiency and anemia of critical illness. -Monitor CBC, -Xarelto for PE 4 yrs ago. -Xarelto.held, On therapeutic Lovenox 150 mg twice a day, will continue -Ferrous sulfate 300 mg/q day ENDO: Hypothyroidism -On SSI (Low scale) -Continue levothyroxine 50 mcg po daily PROPH: -Bilateral lower extremity SCDs. Lovenox DVT therapeutic dose. IV Protonix for GI prophylaxis LINES: - PICC line RUE- No DVT on US Out of bed with assistance. PT out of bed with vent. OT. Level 3 Physician Juana Cisneros MD May 26, 2016 16:58
[2016-05-26] MEDS: DOCUSATE SODIUM 100 MG/10 ML UDC PO SCH (20:33)
[2016-05-27] VITALS (18 sets, daily range): BP systolic 141–164; BP diastolic 72–84; PULSE 81–97; RESP 16–26; TEMP 97.7–98.6; O2SAT 94–100
[2016-05-27] MEDS: INSULIN NovoLIN REGULAR SUPPLEMENTAL SCALE SQ SCH ×6 (04:00→20:00)
[2016-05-27] MEDS: ENOXAPARIN SODIUM 150 MG/ML SYRINGE SQ SCH ×2 (04:49→15:52)
[2016-05-27] MEDS: LEVOTHYROXINE SODIUM 50 MCG TAB PO SCH (04:49)
[2016-05-27 04:59] LABS: MEAN CELL VOLUME 82.3 FL (80.0-100.0); MEAN CORPUSCULAR HEMOGLOBIN 25.6 PG (27.0-34.0); MEAN CORPUSCULAR HGB CONC 31.1 % (32.0-36.0); PLATELET COUNT 292 TH/MM3 (150-450); RED BLOOD COUNT 3.16 MIL/MM3 (4.50-5.90); RED CELL DISTRIBUTION WIDTH 27.7 % (11.6-17.2); WHITE BLOOD COUNT 5.8 TH/MM3 (4.0-11.0)
[2016-05-27 05:06] LABS: REVIEW FLAG FINAL
[2016-05-27 05:30] LABS: BICARBONATE 38.6 MEQ/L (21.0-32.0); MAGNESIUM 1.5 MG/DL (1.5-2.5); POTASSIUM 3.6 MEQ/L (3.5-5.1)
[2016-05-27] MEDS: RESP: BUDESONIDE 0.5 MG/2 ML NEB NEB SCH ×2 (08:21→20:44)
[2016-05-27] MEDS: CHLORHEXIDINE 0.12% (ORAL KIT) 15 ML CUP MT SCH ×2 (08:26→21:09)
[2016-05-27] MEDS: FAMOTIDINE 20 MG TAB PO SCH ×2 (08:27→21:07)
[2016-05-27] MEDS: DOCUSATE SODIUM 100 MG/10 ML UDC PO SCH ×2 (08:27→21:00)
[2016-05-27] MEDS: FERROUS SULFATE 300 MG /5ML UDC PO SCH (08:27)
[2016-05-27] MEDS: BUMETANIDE INJ 1 MG/4 ML VIAL IV PUSH SCH ×2 (08:27→21:13)
[2016-05-27] MEDS: POTASSIUM CHLORIDE 20 MEQ CONTROLLED RELEASE TAB PO SCH ×2 (08:27→21:07)
[2016-05-27] MEDS: ALLOPURINOL 300 MG TAB PO SCH (08:27)
[2016-05-27] MEDS: FENOFIBRATE 48 MG TAB PO SCH (08:27)
[2016-05-27] MEDS: SERTRALINE HCL 50 MG TAB PO SCH (08:27)
[2016-05-27] MEDS: MONTELUKAST SODIUM 10 MG TAB PO SCH (08:27)
[2016-05-27] MEDS: ATORVASTATIN 10 MG TAB PO SCH (08:27)
[2016-05-27] MEDS: DILTIAZEM HCL 60 MG TAB PO SCH ×4 (08:27→21:07)
[2016-05-27] MEDS: SODIUM CHLORIDE 0.9% FLUSH 5 ML FLUSH FLUSH SCH ×2 (08:28→21:08)
[2016-05-27] MEDS: predniSONE 5 MG/5 ML CUP PO SCH (08:28)
[2016-05-27] MEDS: MICONAZOLE NITRATE 2% CREAM 15 GM TOP SCH ×2 (08:29→21:18)
[2016-05-27] MEDS: NYSTATIN 100,000 U/GM PWD 15 GM BTL TOPICAL SCH ×2 (08:30→21:12)
[2016-05-27] MEDS: COLLAGENASE OINT 30 GM TUBE TOP SCH (08:30)
[2016-05-27] MEDS: ACETAMINOPHEN 325 MG TAB PO PRN ×4 (08:51→14:07)
[2016-05-27] MEDS: ONDANSETRON HCL 4 MG/2 ML VIAL IV PUSH PRN ×2 (11:20→17:21)
--- NOTE | 2016-05-27 11:49 | HHI.FPPN ---
Subjective Remarks No acute events overnight. AF. VSS. BP remains slightly high ~164/80. On PEEP 8, FIO2 40%, O2 98-100%. Continued nausea last night, denies emesis. Tolerating PO diet well. Glu 87, 91 , 83, 88, 88. Denies CP/SOB. Tolerated CIPAP throughout night. Right arm weakness appears stable- continuing to work with PT. Objective Vitals Vital Signs Date Time Temp Pulse Resp B/P Pulse Ox O2 Delivery O2 Flow Rate FiO2 05/27/16 12:24 94 40 05/27/16 12:00 98.2 90 18 143/78 05/26/16 08:10 Ventilator Intake and Output 05/26/16 05/26/16 05/26/16 07:59 15:59 23:59 Intake Total 1645 ml 715 ml 550 ml Output Total 1300 ml 1000 ml 450 ml Balance 345 ml -285 ml 100 ml Result Diagram: 05/27/16 0400 05/27/16 0400 Imaging Last Impressions Chest X-Ray 05/20/16 0000 Signed Impressions: Service Date/Time: Friday, May 20, 2016 03:21 - CONCLUSION: Persistent mid and lower lung areas of consolidation or atelectasis being worse in the right. There has been mild improvement. Garcia Lujan MD Upper Extremity Ultrasound 05/02/16 0000 Signed Impressions: Service Date/Time: April 20:51 - CONCLUSION: No DVT. Garcia Lujan MD Abdomen X-Ray 04/29/16 0000 Signed Impressions: Service Date/Time: Friday, April 29, 2016 07:12 - CONCLUSION: Suspect Dobbhoff tube in the distal stomach. Garcia Lujan MD Objective Remarks GENERAL: Morbidly obese male. On mechanical ventilation, awake and alert SKIN: Warm and dry. Cellulitis R lateral malleulus, covered in bandage, managed by wound care. Grade 2 ulcer, good granulation tissue, no purulent drainage. Ecchymosis in periumbilical region and along R fold of pannus secondary to SQ injections. HEENT: Head NCAT. Tracheotomy site c/d/i CV: Distant heart sounds. RRR. Radial pulse 2+. RESP: On mechanical ventilation. A/C 18, 40 FiO2, 8 PEEP. Transmitted upper respiratory sounds. No wheezing. GI: Abdomen soft, obese, non-distended, non-tender. +BS MSK: Lower extremity edema. Decubitus ulcer prophylaxis boots in place. NEURO: Able to speak in short sentences, voice hoarse with trach. Right arm with numbness/tingling, some loss of movement. 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 Date of Insertion: Apr 24, 2016 Date of Insertion: Apr 26, 2016 Line: PICC Side: Right A/P Assessment and Plan 31y male with chronic respiratory failure s/p tracheostomy 4 years ago and Pickwickian syndrome/hypoventilation syndrome (BMI 68) admitted from rehab facility for treatment of hypoxia and PNA with IV antibiotics and supportive care. Discharge Planning Pt will need to be weaned from mechanical ventilation with stable clinical status. Ideally, return to long-term rehab facility. If he qualifies, can consider nursing home vent facility depending on status. Problem List: (1) On mechanically assisted ventilation Status: Acute Plan: Critical care actively managing acute hypercapnic and hypoxemic respiratory failure and HCAP at this time -HCAP resolved. Currently on no abx (see management below). -Pt placed on mechanical ventilation 04/24, FiO2 now 40% PEEP 8, continue to wean, as tolerated -s/p urgent trach exchange 05/02 due to acute hypoxemia and large cuff leak -s/p course solumedrol, continue to taper PO prednisone (currently 20 mg PO daily) until 06/03 group home solution for obesity hypoventilation (BMI 68) significant weight loss. Gastric banding/bypass likely to be most therapeutic strategy, though current health prevents this. Previous team (Eddie/Alfredito) started discussion about this 05/17. Will consult case management for further assistance, as well. (2) HCAP (healthcare-associated pneumonia) Status: Resolved Plan: -S/p multiple antibiotics, appears resolved. Recent blood and sputum cultures had no growth. ABG showed improvement. -Infectious Disease consulted, now signed off. Discontinued contact and droplet precautions (05/27) -Continue Duonebs q2h Microbiology/Labs/Imaging BCx no growth (05/01, 05/03, 05/04) Sputum cx 05/10: No growth. SCx 05/05: proteus mirabilis, SCx 05/04: munoz-sensitive Providencia stuartii, : resistant pseudomonas CXR 04/29, 04/30, 05/05 showing stable bibasilar consolidative infiltrates, with improvement and R > L. Repeat ABG 04/26 showed improvement: CO2 56, pH 7.40 Abx History Zosyn 4.5gm IV q6h (04/24 - 04/29) Levaquin 750mg IV q24h (04/24-04/30) Zerbaxa 1.5 g IV q8h (04/29 - 05/07) Vancomycin IV (04/24 - 05/06) Ceftriaxone IV (05/07 - 05/25) Linezolid 600 mg PO BID (05/06 - 05/13) (3) Yeast UTI Status: Resolved Plan: 05/01 Urine CX growing heather albicans 05/05 repeat UA with large LE, negative nitrite, 182 WBCs; culture grew Proteus Mirabilis Completed course of Diflucan (4) Cellulitis of chest wall Status: Resolved Plan: Resolved. Completed course of linezolid 600 mg PO BID (05/06-05/13) per ID recs (5) Atrial fibrillation Status: Chronic Plan: Likely paroxysmal Afib. Last EKG in sinus rhythm. Currently on Lovenox 150mg SQ Q12H. Hold home Xarelto 20mg/daily (6) CHF (congestive heart failure) Status: Chronic Plan: ECHO 04/25/16 limited due to body habitus/poor image quality. EF could not be estimated. Systolic fxb appeared grossly normal. BNP on admission 419, repeat BNP 151. Suspect cardiac problems secondary to hypoventilation. ECHO 08/2015: grossly normal systolic function with no definitive EF ( difficult to assess) ECHO 05/2014: EF of 40-45% w mildly dilated left atrium -Continue -Bumex 1mg IV BID, monitor I/Os, CC actively managing diuresis (7) Depression Status: Acute Plan: Likely chronic and due to prolonged illness. Has felt much more positive since titrating sertraline * Sertraline 50 mg PO daily, will continue to titrate upward based on symptoms (8) Hypothyroidism Status: Chronic Plan: Synthroid 50 mcg PO daily (9) HTN (hypertension) Status: Chronic Plan: BPs slightly elevated * Cardiazem 60mg QID * Consider adding additional agent- discuss with CC, cards, and/or nephrology in light of fluid, cardiac, resp status (10) Morbid obesity with BMI of 60.0-69.9, adult Status: Chronic Plan: -Nystatin powder, apply daily to skin folds -Miconazole cream, apply BID skin folds (11) Hyperlipidemia Status: Chronic Plan: -Continue atorvastatin 10mg daily (12) Gout Status: Chronic Plan: -Continue allopurinol 300mg daily (13) Weakness of right upper extremity Status: Chronic Plan: -Appears secondary to neuropathy/musculoskeletal weakness secondary to body habitus and positioning -Continue PT, appreciate recommendations (14) Nutrition, metabolism, and development symptoms Status: Acute Plan: Fluids: PO Electrolytes: replete PRN, per protocol Nutrition: Heart Healthy diet GI ppx: Famotidine 20mg BID DVT PPx: Therapeutic Lovenox 150mg subq q12h Glucose: Medium SSI Bowels: Colase 100mg BID, Senna 1 tab BID SDW: Dr. Anderson Problem Qualifiers (1) Atrial fibrillation: Qualified Code: I48.2 - Chronic atrial fibrillation (2) CHF (congestive heart failure): Qualified Code: I50.9 - Acute on chronic congestive heart failure, unspecified congestive heart failure type (3) Depression: Qualified Code: F32.9 - Reactive depression (4) Hypothyroidism: Qualified Code: E03.9 - Hypothyroidism, unspecified type (5) HTN (hypertension): Qualified Code: I10 - Essential hypertension Holley Baires MD R1 May 27, 2016 11:48 Ceftriaxone IV (05/07 - 05/25) Linezolid 600 mg PO BID (05/06 - 05/13) Plan - Infectious Disease consulted, now signed off * S/P multiple Abx, see above - Duonebs q2h (3) Yeast UTI Status: Resolved Plan: 05/01 Urine CX growing heather albicans 05/05 repeat UA with large LE, negative nitrite, 182 WBCs; culture grew Proteus Mirabilis Completed course of Diflucan (4) Cellulitis of chest wall Status: Resolved Plan: Resolved - Completed course of linezolid 600 mg PO BID (05/06-05/13) per ID recs (5) CHF (congestive heart failure) Status: Chronic Plan: Last ECHO 09/18/2015 showing a grossly normal systolic function with no definitive EF as it was difficult to assess, ECHO on 05/2014 with EF of 40-45% with mildly dilated left atrium 04/25 ECHO was limited due to poor image quality, EF could not be adequately estimated. Systolic function appears to be grossly normal. BNP on admission 419, repeat BNP 151. suspect cardiac problems from his hypoventilation. Critical care actively managing diuresis - Lasix drip discontinued - Bumex Discontinued - Completed 3 days of acetazolamide (6) Atrial fibrillation Status: Chronic Plan: Last EKG in sinus rhythm, likely AFib is paroxysmal HR now wnl Home dose of Xarelto 20 mg po daily has been held. Currently on Lovenox 150mg SQ Q12H (7) Depression Status: Acute Plan: Likely chronic and due to prolonged illness Has felt much more positive since titrating sertraline * Sertraline 50 mg PO daily * Will continue to titrate upward based on symptoms, feels very positive at present (8) Tracheostomy present Status: Chronic Plan: S/p urgent/emergent trach exchange 05/02 due to acute hypoxemia and large cuff leak Has been stable since procedure (9) HTN (hypertension) Status: Chronic Plan: BPs slightly elevated Holding home BP medications, consider restarting in next day or so now that clinically more stable (10) Morbid obesity with BMI of 60.0-69.9, adult Status: Chronic Plan: Feliz. obesity hypoventilation syndrome causes his respiratory problems. Continue Zoloft 50 mg and will increase based on symptoms. terminal block assembler plan for bariatric surgery, will begin discussion and coordination once more medically stable (11) Hypothyroidism Status: Chronic Plan: Synthroid 50 mcg PO daily (12) Nutrition, metabolism, and development symptoms Status: Acute Plan: Fluids: PO only Electrolytes: Monitor and replete when necessary per protocol Nutrition: Heart Healthy diet DVT PPx: Therapeutic Lovenox 150mg subq q12h Glucose: Insulin medium dose sliding scale to control blood sugar, not requiring insulin at present; currently stable around 100-150 Problem Qualifiers (1) CHF (congestive heart failure): Qualified Code: I50.9 - Acute on chronic congestive heart failure, unspecified congestive heart failure type (2) Atrial fibrillation: Qualified Code: I48.2 - Chronic atrial fibrillation (3) Depression: Qualified Code: F32.9 - Reactive depression (4) HTN (hypertension): Qualified Code: I10 - Essential hypertension (5) Hypothyroidism: Qualified Code: E03.9 - Hypothyroidism, unspecified type Holley Baires MD R1 May 27, 2016 11:48 (11) Hypothyroidism Status: Chronic Plan: Synthroid 50 mcg PO daily (12) Nutrition, metabolism, and development symptoms Status: Acute Plan: Fluids: PO only Electrolytes: Monitor and replete when necessary per protocol Nutrition: Heart Healthy diet DVT PPx: Therapeutic Lovenox 150mg subq q12h Glucose: Insulin medium dose sliding scale to control blood sugar, not requiring insulin at present; currently stable around 100-150 Problem Qualifiers (1) CHF (congestive heart failure): Qualified Code: I50.9 - Acute on chronic congestive heart failure, unspecified congestive heart failure type (2) Atrial fibrillation: Qualified Code: I48.2 - Chronic atrial fibrillation (3) Depression: Qualified Code: F32.9 - Reactive depression (4) HTN (hypertension): Qualified Code: I10 - Essential hypertension (5) Hypothyroidism: Qualified Code: E03.9 - Hypothyroidism, unspecified type Holley Baires MD R1 May 27, 2016 11:48
--- NOTE | 2016-05-27 14:26 | HHI.CCPN ---
Subjective Remarks/Hospital Course 31 year old morbidly obese (BMI 68) male with chronic respiratory failure s/p tracheostomy 4 years ago, atrial fibrillation and pulmonary embolism on Xarelto , COPD, CHF and h/o HTN. He presented from [facility] with low oxygen saturation apparently his oxygen saturation was 82% on RA. He was placed back on 6L of oxygen via his trach mask and given a breathing treatment, initially improved however he started drifting back to low 80s again. Chest x-ray showed bibasilar infiltrates and pulmonary edema. Patient was admitted to the [facility] service and was started on IV steroids IV vancomycin and Zosyn and Levaquin for healthcare associated pneumonia. After starting ACV, patient was more awake but there was a significant amount of air leak around his tracheostomy. Patient has had a Shiley 6.0 Proximal XLT, but the punch molder balloon had been cut off. 05/02 the patient became acutely hypoxemic with a large cuff leak, underwent emergency trach exchange at bedside by Dr. Macias. FiO2 65% PEEP 14 05/13 Patient is on ventilator via trach, on Fentanyl infusion however he is awake and alert. On PRVC with FIO2 40%. Afebrile. 05/14 No acute events overnight. Tmax 99.8. Patient is awake, alert on ventilator via trach still requiring increase O2. On PRVC with PEEP: 10 and FIO2 70%. 05/15 patient acutely desaturated after he was found. Saturation went down to 70% on 100% oxygen. Bag and mask ventilation carried out, with eventual improvement on oxygen saturation to 85%. Patient was placed on PC/AC mode of ventilation, with PEEP of 15 and instructed to pressure of 30. Eventually oxygen saturation improved to 95%. Lasix him today as the chest x-ray from today shows increasing bilateral infiltrate and pulmonary edema. Also sputum culture will be sent 05/16 Patient is on Fentanyl and Diprivan infusion but awake and alert. Afebrile. On PC/AC with PEEP:15, IP: 22, IT:1.3 and FIO2 50% 05/17 Patient is off Diprivan and remains on Fentanyl infusion for sedation. On PC/AC with PEEP: down 10 and FIO2 40%. Afebrile. 05/18 Patient remains on ventilator via trach on PC/AC with PEEP:12, FIO2 40%, IP:22, IT:1.0. On Fentanyl infusion 05/19 No acute events overnight. On Fentanyl infusion but awake and alert. Afebrile. 05/20 Tolerating C Pap 17/12 FIO2 40, sats 98%. RSBI in 20s, appears can be weaned further. Afebrile. Speech therapy evaluated and ok for regular diet. Starting with full liquid. 05/21 Will wean PSV to 15/10. Tolerated full liquids, will advance to regular diet per speech recs. Subjective: 05/22 On PSV 15/10 FIO2 40 with sats 92%. Smiling today. Glad to be eating regular food again. 05/23 No acute events overnight. Remains on CPAP with PS 15, PEEP:10 and FIO2 40 %. Afebrile. Off Fentanyl drip. Afebrile. Awake and alert. 05/24 Patient is on CPAP / with 40% FIO2. Afebrile. Awake and alert, on no sedation. 05/25 No acute events overnight. Patient was placed back on PC/AC overnight. Tolerated CPAP trials during day yesterday. Awake and alert. On no drips. Afebrile. 05/26 Afebrile. Tmax 98.6. Today the patient complained of nausea requiring Zofran. The patient has a lack of an appetite, with noted hypoglycemia early this a.m. blood glucose level 69. Patient tolerating CPAP well greater than 12 hours in the last 24 hours. 05/27 The patient tolerated CPAP for over 36 hours, O2 sat a knee 94% on FIO2 40 %. The patient had an increase in appetite. The patient continues on full liquid diet. Objective Vital Signs Date Time Temp Pulse Resp B/P Pulse Ox O2 Delivery O2 Flow Rate FiO2 05/27/16 12:24 94 40 05/27/16 12:00 98.2 90 18 143/78 05/26/16 08:10 Ventilator Intake and Output 05/26/16 05/26/16 05/26/16 07:59 15:59 23:59 Intake Total 1645 ml 715 ml 550 ml Output Total 1300 ml 1000 ml 450 ml Balance 345 ml -285 ml 100 ml Result Diagram: 05/27/16 0400 05/27/16 0400 Imaging Last Impressions Chest X-Ray 05/20/16 0000 Signed Impressions: Service Date/Time: Friday, May 20, 2016 03:21 - CONCLUSION: Persistent mid and lower lung areas of consolidation or atelectasis being worse in the right. There has been mild improvement. Garcia Lujan MD Upper Extremity Ultrasound 05/02/16 0000 Signed Impressions: Service Date/Time: April 20:51 - CONCLUSION: No DVT. Garcia Lujan MD Abdomen X-Ray 04/29/16 0000 Signed Impressions: Service Date/Time: Friday, April 29, 2016 07:12 - CONCLUSION: Suspect Dobbhoff tube in the distal stomach. Garcia Lujan MD Objective Remarks GENERAL: Patient is 31yo on ventilator via trach, awake and follows commands. Morbid obesity SKIN: Warm and dry. HEAD: Normocephalic.NGT in place with tube feeds running. EYES: No scleral icterus. No injection or drainage. NECK: Supple, trachea midline. Shiley 6.0 Proximal XLT, (new trach placed ) CARDIOVASCULAR:Tachycardic without murmurs, gallops, or rubs. RESPIRATORY: Breath sounds equal bilaterally. No accessory muscle use. GASTROINTESTINAL: Abdomen soft, obese,, non-tender, nondistended. Multiple noted areas of ecchymotic bruising secondary to subcutaneous injections MUSCULOSKELETAL: No cyanosis, or edema. Pedal edema. Wound on lateral aspect of right lower leg above lateral malleolus , dressing C/D/I. Neuro: Awake and alert. Moves all extremities without focal deficit. Procedures Shiley 6.0 XLT tracheostomy exchange under visual direction by general surgery and with GlideScope, by anesthesiologist. Date of Insertion: Apr 24, 2016 Vascular Central Line Catheter: No (medication administration) Date of Insertion: Apr 26, 2016 Line: PICC Side: Right A/P Assessment and Plan ASSESSMENT Acute hypercapnic and hypoxemic respiratory failure Acute worsening of hypoxia due to lung de-recruitment 05/15/16 Healthcare associated pneumonia MDR Pseudomonas Sepsis/persistent fever CHF exacerbation CO2 narcosis Tracheostomy punch molder balloon damage -status post exchange with new Shiley 6.0 Proximal XLT 05/02/16 Chronic Respiratory Failure s/p Tracheostomy 4 years ago (Shiley 6.0 Proximal XLT) COPD/obesity hypoventilation syndrome Morbid Obesity BMI 67 History of pulmonary embolism 4 years ago Chronic atrial fibrillation Anxiety CHF (Echo 2013 EF 40-45%; ECHO 08/2015 showing a grossly normal systolic function) Hypertension Hypothyroidism PLAN NEURO: CO2 narcosis - resolved Pain Anxiety Depression - On morphine 4 mg IV every 3 hours as needed for breakthrough pain. -GCS 14 T. -Continue Zoloft 50mg daily RESP: Acute hypercapnic and hypoxemic respiratory failure Acute lung derecruitment today 05/15 Healthcare associated pneumonia Tracheostomy punch molder balloon damage (Shiley 6.0 Proximal XLT) s/p new trach placement 05/02 Chronic Respiratory Failure s/p Tracheostomy 4 years ago COPD/obesity hypoventilation syndrome History of pulmonary embolism 4 years ago Leukocytosis-resolved Pulmonary edema - Continue with vent support keep sat >92%- on PC/AC RR 18, IP: 22, PEEP:8, FIO2 40%, decrease PEEP:5 - PSV 12/8 40% and continue weaning as tolerated. Will wean to FIO2 .35% - s/p Bronchoscopy 05/11 -follow up on BAL results-negative - DuoNeb every 6 hours scheduled, q 2 prn. - Pulmicort BID (home med), -Continue Singulair 10 mg po daily - Therapeutic Lovenox 150 mg every 12 hours, consider transition to Xarelto ( home med) upon planned discharge CV: CHF exacerbation Pulmonary edema Paroxysmal atrial fibrillation (chronic) Hyperlipidemia - Monitor HR and BP keep MAP>65mmHg - on Cardizem 60mg QID -Continue Lipitor 10 g by mouth daily. -Continue TriCor 40 mg by mouth daily - Therapeutic Lovenox 150 mg twice a day GI: Super morbid obesity with BMI of 68 -Regular diet thin liquids per speech recs. - On Pepcid 20mg BID FEN/RENAL: Hypokalemia - Monitor renal function , I/O. electrolytes replacement per protocol. - Bumex 1 mg IV q12 with KCL 40 q12 - Mag level 1.5 -Lab holiday ID: Healthcare associated pneumonia Sepsis MDRO Possible cellulitis right arm Leukocytosis-resolved - Continue abx per ID ( Rocephin) today's last dose (05/12- 05/25) -Urine cx: Proteus Mirabilis 05/05 -Sputum cx: Providencia 05/05- resolved -Wound cx: 05/13 Proteus, Pseudomonas, Group D Enterococcus - Wound culture Pseudomonas MDR 04/27 - Sputum culture-Pseudomonas MDR- 04/27 - Bronchoscopy and re-culture 05/10 follow up on BAL results-neg to date - Follow up on sputum cx from 05/15- NGTD HEME: History of PE on chronic anticoagulation with Xarelto Anemia, iron deficiency and anemia of critical illness. -Monitor CBC, -Xarelto for PE 4 yrs ago. -Xarelto.held, On therapeutic Lovenox 150 mg twice a day, will continue -Ferrous sulfate 300 mg/q day ENDO: Hypothyroidism -On SSI (Low scale) -Continue levothyroxine 50 mcg po daily PROPH: -Bilateral lower extremity SCDs. Lovenox DVT therapeutic dose. GI prophylaxis- Pepcid 20mg BID LINES: - PICC line RUE- No DVT on US Out of bed with assistance. PT out of bed with vent. OT. Discussed with patient and RN at bedside. Level 3 Physician Juana Cisneros MD May 27, 2016 14:26
[2016-05-27] MEDS: RESP: ALBUTEROL 2.5 MG/IPRATROPIUM 0.5 MG NEB (PRN) NEB (20:44)
[2016-05-28] VITALS (17 sets, daily range): BP systolic 145–181; BP diastolic 67–88; PULSE 79–93; RESP 15–21; TEMP 98.3–99; O2SAT 78–100
[2016-05-28] MEDS: INSULIN NovoLIN REGULAR SUPPLEMENTAL SCALE SQ SCH ×6 (04:00→20:00)
[2016-05-28] MEDS: LEVOTHYROXINE SODIUM 50 MCG TAB PO SCH (05:06)
[2016-05-28] MEDS: ENOXAPARIN SODIUM 150 MG/ML SYRINGE SQ SCH ×2 (05:06→16:00)
[2016-05-28 05:25] LABS: BICARBONATE 40.4 MEQ/L (21.0-32.0); MAGNESIUM 1.4 MG/DL (1.5-2.5); POTASSIUM 3.6 MEQ/L (3.5-5.1)
[2016-05-28 05:27] LABS: HEMATOCRIT 29.1 % (39.0-51.0); MEAN CELL VOLUME 82.4 FL (80.0-100.0); MEAN CORPUSCULAR HEMOGLOBIN 24.7 PG (27.0-34.0); PLATELET COUNT 353 TH/MM3 (150-450); RED BLOOD COUNT 3.53 MIL/MM3 (4.50-5.90); RED CELL DISTRIBUTION WIDTH 27.7 % (11.6-17.2); WHITE BLOOD COUNT 6.3 TH/MM3 (4.0-11.0)
[2016-05-28 05:30] LABS: REVIEW FLAG FINAL
--- NOTE | 2016-05-28 08:54 | HHI.CCPN ---
Subjective Remarks/Hospital Course 31 year old morbidly obese (BMI 68) male with chronic respiratory failure s/p tracheostomy 4 years ago, atrial fibrillation and pulmonary embolism on Xarelto , COPD, CHF and h/o HTN. He presented from [facility] with low oxygen saturation apparently his oxygen saturation was 82% on RA. He was placed back on 6L of oxygen via his trach mask and given a breathing treatment, initially improved however he started drifting back to low 80s again. Chest x-ray showed bibasilar infiltrates and pulmonary edema. Patient was admitted to the major hospital service and was started on IV steroids IV vancomycin and Zosyn and Levaquin for healthcare associated pneumonia. After starting ACV, patient was more awake but there was a significant amount of air leak around his tracheostomy. Patient has had a Shiley 6.0 Proximal XLT, but the pilot can router balloon had been cut off. 05/02 the patient became acutely hypoxemic with a large cuff leak, underwent emergency trach exchange at bedside by Dr. Macias. FiO2 65% PEEP 14 05/13 Patient is on ventilator via trach, on Fentanyl infusion however he is awake and alert. On PRVC with FIO2 40%. Afebrile. 05/14 No acute events overnight. Tmax 99.8. Patient is awake, alert on ventilator via trach still requiring increase O2. On PRVC with PEEP: 10 and FIO2 70%. 05/15 patient acutely desaturated after he was found. Saturation went down to 70% on 100% oxygen. Bag and mask ventilation carried out, with eventual improvement on oxygen saturation to 85%. Patient was placed on PC/AC mode of ventilation, with PEEP of 15 and instructed to pressure of 30. Eventually oxygen saturation improved to 95%. Lasix him today as the chest x-ray from today shows increasing bilateral infiltrate and pulmonary edema. Also sputum culture will be sent 05/16 Patient is on Fentanyl and Diprivan infusion but awake and alert. Afebrile. On PC/AC with PEEP:15, IP: 22, IT:1.3 and FIO2 50% 05/17 Patient is off Diprivan and remains on Fentanyl infusion for sedation. On PC/AC with PEEP: down 10 and FIO2 40%. Afebrile. 05/18 Patient remains on ventilator via trach on PC/AC with PEEP:12, FIO2 40%, IP:22, IT:1.0. On Fentanyl infusion 05/19 No acute events overnight. On Fentanyl infusion but awake and alert. Afebrile. 05/20 Tolerating C Pap 17/12 FIO2 40, sats 98%. RSBI in 20s, appears can be weaned further. Afebrile. Speech therapy evaluated and ok for regular diet. Starting with full liquid. 05/21 Will wean PSV to 15/10. Tolerated full liquids, will advance to regular diet per speech recs. Subjective: 05/22 On PSV 15/10 FIO2 40 with sats 92%. Smiling today. Glad to be eating regular food again. 05/23 No acute events overnight. Remains on CPAP with PS 15, PEEP:10 and FIO2 40 %. Afebrile. Off Fentanyl drip. Afebrile. Awake and alert. 05/24 Patient is on CPAP / with 40% FIO2. Afebrile. Awake and alert, on no sedation. 05/25 No acute events overnight. Patient was placed back on PC/AC overnight. Tolerated CPAP trials during day yesterday. Awake and alert. On no drips. Afebrile. 05/26 Afebrile. Tmax 98.6. Today the patient complained of nausea requiring Zofran. The patient has a lack of an appetite, with noted hypoglycemia early this a.m. blood glucose level 69. Patient tolerating CPAP well greater than 12 hours in the last 24 hours. 05/27 The patient tolerated CPAP for over 36 hours, O2 sat a knee 94% on FIO2 40 %. The patient had an increase in appetite. The patient continues on full liquid diet. 05/28 The patient declined physical therapy treatment, yesterday and also overnight declined to be moved by nursing staff. The patient refused dinner last evening, of note patient was reevaluated by speech therapy and can consume a heart healthy diet with thin liquids. The patient continues on physical therapy for strengthening exercises of all extremities specifically noted right upper extremity continues to be weak with gross fibrillations noted in hand and forearm. Objective Vital Signs Date Time Temp Pulse Resp B/P Pulse Ox O2 Delivery O2 Flow Rate FiO2 05/28/16 06:00 86 05/28/16 04:22 99 40 05/28/16 04:00 98.4 19 181/88 05/26/16 08:10 Ventilator Intake and Output 1105/27/16 05/28/16 08:00 16:00 00:00 Intake Total 560 ml 910 ml 650 ml Output Total 1250 ml 850 ml 600 ml Balance -690 ml 60 ml 50 ml Result Diagram: 05/28/16 0411 05/28/16 0411 Other Results Microbiology Date/Time Procedure Status Source Growth 05/27/16 16:15 Stool Occult Blood (KAYLA) - Final Complete Stool Stool HEMOCCULT NEGATIVE Imaging Last Impressions Chest X-Ray 05/20/16 0000 Signed Impressions: Service Date/Time: Friday, May 20, 2016 03:21 - CONCLUSION: Persistent mid and lower lung areas of consolidation or atelectasis being worse in the right. There has been mild improvement. Garcia Lujan MD Upper Extremity Ultrasound 05/02/16 0000 Signed Impressions: Service Date/Time: April 20:51 - CONCLUSION: No DVT. Garcia Lujan MD Abdomen X-Ray 04/29/16 0000 Signed Impressions: Service Date/Time: Friday, April 29, 2016 07:12 - CONCLUSION: Suspect Dobbhoff tube in the distal stomach. Garcia Lujan MD Objective Remarks GENERAL: Patient is 31yo on ventilator via trach, awake and follows commands. Super Morbidly obese. Communicating appropriately this a.m. SKIN: Warm and dry. HEAD: Normocephalic. EYES: No scleral icterus. No injection or drainage. NECK: Supple, trachea midline. Shiley 6.0 Proximal XLT, (new trach placed ) CARDIOVASCULAR:Tachycardic without murmurs, gallops, or rubs. RESPIRATORY: Breath sounds equal bilaterally. Distant secondary to habitus . On CPAP GASTROINTESTINAL: Abdomen soft, obese,, non-tender, nondistended. Multiple noted areas of ecchymotic bruising secondary to subcutaneous injections MUSCULOSKELETAL: No cyanosis, or edema. Pedal edema. Wound on lateral aspect of right lower leg above lateral malleolus , dressing C/D/I. right upper extremity motor strength, inability to perform flexion, or pronation, hand straight line press setter strength 2/5. Neuro: Awake and alert. Moves all extremities with focal deficit right upper extremity. Urinary Catheter: Yes Date of Insertion: Apr 24, 2016 Date of Insertion: Apr 26, 2016 Line: PICC Side: Right Reason for Continuation Medication administered A/P Assessment and Plan ASSESSMENT Acute hypercapnic and hypoxemic respiratory failure Acute worsening of hypoxia due to lung de-recruitment 05/15/16 Healthcare associated pneumonia MDR Pseudomonas Sepsis/persistent fever CHF exacerbation CO2 narcosis Tracheostomy pilot can router balloon damage -status post exchange with new Shiley 6.0 Proximal XLT 05/02/16 Chronic Respiratory Failure s/p Tracheostomy 4 years ago (Shiley 6.0 Proximal XLT) COPD/obesity hypoventilation syndrome Morbid Obesity BMI 67 History of pulmonary embolism 4 years ago Chronic atrial fibrillation Anxiety CHF (Echo 2013 EF 40-45%; ECHO 08/2015 showing a grossly normal systolic function) Hypertension Hypothyroidism PLAN NEURO: CO2 narcosis - resolved Pain Anxiety Depression Critical care polyneuropathy Unilateral right upper extremity weakness 05/21-possibly secondary to nerve compression, C6, C7 (brachial plexus) - On morphine 4 mg IV every 3 hours as needed for breakthrough pain. -GCS 14 T. -Continue Zoloft 50mg daily -Noted right upper extremity absence of triceps reflex, diminished sensation/ numbness in C6-C7 dermatome level both anterior and posterior, inability for pronation, handgrip strength 2/5, lack of wrist extension/flexion. C6, C7 myotome pattern of muscle weakness.Positive shoulder abduction/adduction. -Continued PT daily, with strengthening exercise (encouraged patient to participate) patient counseled on the importance. -Neurology consult and EMG study, right upper extremity -Venous Doppler RUE RESP: Acute hypercapnic and hypoxemic respiratory failure Acute lung derecruitment today 05/15 Healthcare associated pneumonia Tracheostomy pilot can router balloon damage (Shiley 6.0 Proximal XLT) s/p new trach placement 05/02 Chronic Respiratory Failure s/p Tracheostomy 4 years ago COPD/obesity hypoventilation syndrome History of pulmonary embolism 4 years ago Leukocytosis-resolved Pulmonary edema - Continue with vent support keep sat >92%. Currently on CPAP 06/06 - PSV 06/06 40% and continue weaning as tolerated. Continue FIO2 .35% - s/p Bronchoscopy 05/11 -follow up on BAL results-negative - DuoNeb every 6 hours scheduled, q 2 prn. - Pulmicort BID (home med), -Continue Singulair 10 mg po daily - Therapeutic Lovenox 150 mg every 12 hours, consider transition to Xarelto ( home med) upon planned discharge CV: CHF exacerbation Pulmonary edema Paroxysmal atrial fibrillation (chronic) Hyperlipidemia - Monitor HR and BP keep MAP>65mmHg - on Cardizem 60mg QID -Continue Lipitor 10 g by mouth daily. -Continue TriCor 40 mg by mouth daily - Therapeutic Lovenox 150 mg twice a day GI: Super morbid obesity with BMI of 63 -Regular diet ,thin liquids per speech recs. - On Pepcid 20mg BID -Poor appetite, refusing to eat -Consider dietary supplementation FEN/RENAL: Hypokalemia - Monitor renal function , I/O. - Electrolytes replacement per protocol. - Bumex 1 mg IV q12 with KCL 40 q12 ID: Healthcare associated pneumonia Sepsis MDRO Cellulitis right arm-resolved Leukocytosis-resolved - Continue abx per ID ( Rocephin) today's last dose (05/12- 05/25) -Urine cx: Proteus Mirabilis 05/05 -Sputum cx: Providencia 05/05- resolved -Wound cx: 05/13 Proteus, Pseudomonas, Group D Enterococcus - Wound culture Pseudomonas MDR 04/27 - Sputum culture-Pseudomonas MDR- 04/27 - Bronchoscopy and re-culture 05/10 follow up on BAL results-neg to date - Follow up on sputum cx from 05/15- NGTD HEME: History of PE on chronic anticoagulation with Xarelto Anemia, iron deficiency and anemia of critical illness. -Monitor CBC, -Xarelto for PE 4 yrs ago. -Xarelto.held, On therapeutic Lovenox 150 mg twice a day, will continue -Ferrous sulfate 300 mg/q day ENDO: Hypothyroidism -On SSI (Low scale) -Continue levothyroxine 50 mcg po daily PROPH: -Bilateral lower extremity SCDs. Lovenox DVT therapeutic dose. GI prophylaxis- Pepcid 20mg BID LINES: - PICC line RUE- No DVT on US 05/02 Out of bed with assistance. PT out of bed with vent. OT. Discussed with patient and RN at bedside. Level 3 Physician Juana Cisneros MD May 28, 2016 08:54
[2016-05-28] MEDS: CHLORHEXIDINE 0.12% (ORAL KIT) 15 ML CUP MT SCH ×2 (08:59→20:43)
[2016-05-28] MEDS: SERTRALINE HCL 50 MG TAB PO SCH (09:00)
[2016-05-28] MEDS: MONTELUKAST SODIUM 10 MG TAB PO SCH (09:00)
[2016-05-28] MEDS: SODIUM CHLORIDE 0.9% FLUSH 5 ML FLUSH FLUSH SCH ×2 (09:00→20:45)
[2016-05-28] MEDS: ATORVASTATIN 10 MG TAB PO SCH (09:00)
[2016-05-28] MEDS: FENOFIBRATE 48 MG TAB PO SCH (09:00)
[2016-05-28] MEDS: POTASSIUM CHLORIDE 20 MEQ CONTROLLED RELEASE TAB PO SCH ×2 (09:00→20:44)
[2016-05-28] MEDS: FAMOTIDINE 20 MG TAB PO SCH ×2 (09:00→20:44)
[2016-05-28] MEDS: DOCUSATE SODIUM 100 MG/10 ML UDC PO SCH ×2 (09:01→20:45)
[2016-05-28] MEDS: predniSONE 5 MG/5 ML CUP PO SCH (09:01)
[2016-05-28] MEDS: NYSTATIN 100,000 U/GM PWD 15 GM BTL TOPICAL SCH ×2 (09:01→20:44)
[2016-05-28] MEDS: FERROUS SULFATE 300 MG /5ML UDC PO SCH (09:01)
[2016-05-28] MEDS: COLLAGENASE OINT 30 GM TUBE TOP SCH (09:01)
[2016-05-28] MEDS: ALLOPURINOL 300 MG TAB PO SCH (09:01)
[2016-05-28] MEDS: MICONAZOLE NITRATE 2% CREAM 15 GM TOP SCH ×2 (09:02→20:44)
--- NOTE | 2016-05-28 09:06 | HHI.FPPN ---
Subjective Remarks Yesterday, nausea worsened and prevented pt from performing PT. Discussed care with Dr. Morgan, recommendations appreciated. She believes psychosomatic component to nausea, as often coincides with PT. Other si/sxp malaise include refusal to shower yesterday and declining oral feeds in favor of tube feeds. Also expressed concern for worsening RUE weakness, secondary to suspected C7 neuropathy, 2/2 positioning, and worsening, that began during hospital stay ( roughly 04/20/16 per PT notes). Overnight, pt hypertensive to 181/88, uncontrolled by Cardiazem 60mg QID. Otherwise, AF, VSS. Ventilation settings: PEEP 8, FIO2 40%, O2 98-100%. Per CC note, today will decrease PEEP to 5 and FIO2 to 35% Tube feeding thin liquids without difficulty. Glucose: 98, 81, 88. Pt expresses continued nausea, but denies emesis. Declines addition of second antiemetic Denies worsening depression. Declines offer to increase dose of Zoloft. Agrees to perform PT today and attempt oral feeds in place of tube feeds. Reports insomnia and requests medication to help sleep. Denies fevers/chills, SOB/CP,. abdominal pain, or calf pain. Unable to provide questions about RUE weakness. Shrugs when asked questions about onset. Objective Vitals Vital Signs Date Time Temp Pulse Resp B/P Pulse Ox O2 Delivery O2 Flow Rate FiO2 05/28/16 06:00 86 05/28/16 04:22 99 40 05/28/16 04:00 91 05/28/16 04:00 40 05/28/16 04:00 98.4 91 19 181/88 78 05/28/16 02:00 89 05/28/16 00:00 40 05/28/16 00:00 99.0 84 20 169/77 97 05/28/16 00:00 84 05/28/16 00:00 97 40 05/27/16 22:00 81 05/27/16 20:44 98 40 05/27/16 20:00 97.7 85 19 153/72 97 05/27/16 20:00 40 05/27/16 20:00 85 05/27/16 18:00 84 05/27/16 16:08 97 40 05/27/16 16:00 98.6 90 16 157/83 96 11/28/16 16:00 35 05/27/16 16:00 83 05/27/16 14:00 85 05/27/16 12:24 94 40 05/27/16 12:00 98.2 90 18 143/78 95 05/27/16 12:00 40 05/27/16 12:00 90 05/27/16 10:00 97 I/O 05/27/16 05/27/16 05/27/16 05/28/16 05/28/16 05/28/16 07:00 15:00 23:00 07:00 15:00 23:00 Intake Total 560 ml 910 ml 650 ml 782 ml Output Total 1250 ml 850 ml 600 ml 1000 ml Balance -690 ml 60 ml 50 ml -218 ml Intake Oral 480 ml 820 ml 480 ml 720 ml IV Total 80 ml 90 ml 170 ml 62 ml Output Urine Total 1250 ml 850 ml 600 ml 1000 ml Stool Total 0 ml # Bowel Movements 0 1 Result Diagram: 05/28/16 0411 05/28/16 0411 Imaging Last Impressions Upper Extremity Ultrasound 05/28/16 0000 Signed Impressions: Service Date/Time: Saturday, May 28, 2016 10:16 - CONCLUSION: 1. Negative for deep venous thrombosis. Venous line noted in cephalic, subclavian and internal jugular vein. Horacio Gupta MD Chest X-Ray 05/20/16 0000 Signed Impressions: Service Date/Time: Friday, May 20, 2016 03:21 - CONCLUSION: Persistent mid and lower lung areas of consolidation or atelectasis being worse in the right. There has been mild improvement. Garcia Lujan MD Abdomen X-Ray 04/29/16 0000 Signed Impressions: Service Date/Time: Friday, April 29, 2016 07:12 - CONCLUSION: Suspect Dobbhoff tube in the distal stomach. Garcia Lujan MD Objective Remarks GEN: Morbidly obese male. (BMI 66). On mechanical ventilation, awake and alert DERM: Warm and dry. Cellulitis R lateral malleolus, covered in bandage, managed by wound care. Grade 2 ulcer, good granulation tissue, no purulent drainage. Nails bitten and cuticles picked at. Blue-yellow ecchymosis of periumbilical region and along R fold of pannus secondary to SQ injections. Indurated, but non-erythematous or prurulent. No skin breakdown. HEENT: Head NCAT. Tracheotomy site c/d/i CV: Distant heart sounds. RRR. Radial pulse 2+. RESP: On mechanical ventilation. A/C 18, 40 FiO2, 8 PEEP. Transmitted upper respiratory sounds. No wheezing. GI: Abdomen soft, obese, non-distended, non-tender. +BS MSK: Lower extremity edema. Decubitus ulcer prophylaxis boots in place. NEURO: Able to speak in short sentences, voice hoarse with trach. Right arm with numbness/tingling and loss to sensation, predominantly of thumb, index, and middle finger. Strength R forearm/arm 2/5. Deltoid 5/5. Intrinsic muscles R hand 4/5 strength. Date of Insertion: Apr 24, 2016 Date of Insertion: Apr 26, 2016 Line: PICC Side: Right A/P Assessment and Plan 31y male w chronic respiratory failure s/p tracheostomy 4 years ago and Pickwickian/hypoventilation syndrome (BMI 68) admitted from rehab facility for treatment of hypoxia and PNA with IV antibiotics and supportive care. Discharge Planning Days, pending weaning from mechanical ventilation with stable clinical status. Ideally, return to long-term rehab facility. If qualifies, could consider snf vent facility depending on status. Problem List: (1) On mechanically assisted ventilation Status: Acute Plan: Impression: Acute on chronic hypoxemic respiratory failure secondary to PNA (resolved) and tracheostomy leak. Possibly compounded by paroxysmal Afib, hypoventilation syndrome, and intrinsic muscle weakness. S/p urgent trach exchange 05/02 due to acute hypoxemia and large cuff leak. - Placed on mechanical ventilation 04/24, critical care managing, FiO2 now 40% PEEP 8, continue to wean, as tolerated - Continue solumedrol 20mg taper until 06/03 - HCAP resolved. Currently on no abx (see management below). - retirement solution for obesity hypoventilation (BMI 68) is significant weight loss. Gastric banding/bypass likely to be most therapeutic. Previous team (Eddie /Alfredito) started discussion about this 05/17. Requires further discussion, especially as outpatient. Consult case management for further assistance with resources, recommendations (2) Weakness of right upper extremity Status: Chronic Plan: Impression: Further chart review needed. Possibly not chronic injury, as previously understood, but acute injury within the past several weeks. Presentation most consistent with C7 neuropathy secondary to body habitus and positioning -Neurology consult to evaluate pathology/treatment and need for EMG RUE -Continue PT, appreciate recommendations (3) HTN (hypertension) Status: Chronic Plan: Impression: B/P above goal 160/90 -Increase Cardiazem to 90mg QID (4) Depression Status: Chronic Plan: Impression: started antidepressent while inpatient. Likely chronic and due to prolonged illness. Has felt much more positive since titrating sertraline. -Sertraline 50 mg PO daily -Consider trending PHQ-9 scoring and outpatient psych at discharge (5) Insomnia Status: Chronic Plan: Impression: Reports difficulty falling asleep, no difficulty staying asleep. -Re-start home Zolpidem 5mg HS at pt request (6) Atrial fibrillation Status: Chronic Plan: Impression: likely paroxysmal Afib. EKG 05/17 in sinus rhythm. -Continue Lovenox 150mg SQ BID. Hold home Xarelto 20mg/daily (7) Normocytic anemia Status: Chronic Plan: Impression: Secondary to chronic illness vs hypoxia. Improving. Hemoccult neg -Ferrous sulfate 300mg daily (8) CHF (congestive heart failure) Status: Chronic Plan: Impression: Likely HFpEF, though imaging unable to confirm. ECHO limited due to body habitus/poor image quality. EF could not be estimated. Systolic fxb appeared grossly normal. BNP 419 -> 151. Suspect cardiac problems secondary to hypoventilation. ECHO 08/2015: grossly normal systolic function with no definitive EF. ECHO 05/2014: EF of 40-45% w mildly dilated left atrium -Continue -Bumex 1mg IV BID, monitor I/Os, CC actively managing diuresis (9) Hypothyroidism Status: Chronic Plan: Impression: Hypothyroidism. 08/2015- TSH low (?), free T4 wnl. -Synthroid 50 mcg PO daily -Repeat free T4 pending, if abnormal, may be contributing to mood symptoms (10) Hyperlipidemia Status: Chronic Plan: -Continue atorvastatin 10mg daily (11) Gout Status: Chronic Plan: -Continue allopurinol 300mg daily (12) Fungal infection Status: Chronic Plan: Impression: Fungal infection in skin folds, especially pannus -Nystatin powder, apply daily to skin folds -Miconazole cream, apply BID skin folds (13) Morbid obesity with BMI of 60.0-69.9, adult Status: Chronic Plan: see above plan for mechanical ventilation (14) HCAP (healthcare-associated pneumonia) Status: Resolved Plan: Impression: Appears resolved s/p multiple antibiotics (below). Sputum culture 04/27 grew resistant pseudomonas (04/27) with repeat cultures (05/04, 05/05) growing likely contaminants. Repeat SCx 05/10 NGTD. Repeat ABG 04/26 and CXR 04/28 showed improvement. Stable bibasilar consolidative infiltrates observed on CXR. BCx no growth (05/01, 05/03, 05/04). ID consulted, now signed off. -Need for continued contact and droplet precautions per CC recommendations -Duonebs q6h REYES + q2h PRN Abx History Zosyn 4.5gm IV q6h (04/24 - 04/29) Levaquin 750mg IV q24h (04/24-04/30) Zerbaxa 1.5 g IV q8h (04/29 - 05/07) Vancomycin IV (04/24 - 05/06) Ceftriaxone IV (05/07 - 05/25) Linezolid 600 mg PO BID (05/06 - 05/13) (15) Yeast UTI Status: Resolved Plan: Impression: Resolved following completed course of Diflucan. UCx 05/01: Dionne albicans. Repeat U/A 05/05 dirty. UCx 05/05: Proteus Mirabilis (16) Cellulitis of chest wall Status: Resolved Plan: Impression: resolved following completed course of linezolid 600 mg PO BID (05/06-05/13), per ID recs (17) Nutrition, metabolism, and development symptoms Status: Acute Plan: Fluids: PO Electrolytes: replete PRN, per protocol Nutrition: heart healthy diet, d/c tube feeds (05/28), transition to oral feeds GI ppx: Famotidine 20mg BID DVT PPx: Therapeutic Lovenox 150mg SQ BID Glucose: Medium SSI, Glu trending 80-90 Bowels: Colace 100mg BID, Senna 1 tab BID SDW: Dr. Morgan, Dr. Kelly DW: Dr. Wright Problem Qualifiers (1) HTN (hypertension): Qualified Code: I10 - Essential hypertension (2) Depression: Qualified Code: F32.9 - Reactive depression (3) Atrial fibrillation: Qualified Code: I48.2 - Chronic atrial fibrillation (4) CHF (congestive heart failure): Qualified Code: I50.9 - Acute on chronic congestive heart failure, unspecified congestive heart failure type (5) Hypothyroidism: Qualified Code: E03.9 - Hypothyroidism, unspecified type Holley Baires MD R1 May 28, 2016 09:06
[2016-05-28] MEDS: RESP: BUDESONIDE 0.5 MG/2 ML NEB NEB SCH ×2 (09:09→20:16)
[2016-05-28] MEDS: BUMETANIDE INJ 1 MG/4 ML VIAL IV PUSH SCH ×2 (09:56→20:45)
[2016-05-28] MEDS: DILTIAZEM HCL 90 MG TAB PO SCH ×4 (09:56→20:44)
[2016-05-28] MEDS: MAGNESIUM SULFATE INJ 2 GM in SODIUM CHLORIDE 0.9% INJ 96 ML IV PRN (09:56)
[2016-05-28] MEDS: ONDANSETRON HCL 4 MG/2 ML VIAL IV PUSH PRN (10:27)
[2016-05-28] MEDS: MORPHINE SULFATE 4 MG/ML INJ IV PUSH PRN ×2 (11:08→14:21)
--- NOTE | 2016-05-28 13:22 | RADRPT ---
EXAM DATE/TIME: 05/28/2016 10:16 [facility] COMPARISON: No previous studies available for comparison. INDICATIONS : Cellulitis. MEDICAL HISTORY : Congestive heart failure. Hypertension. Hypothyroidism. Afib. Pulmonary embolism. SURGICAL HISTORY : Tonsillectomy. Tracheostomy. ENCOUNTER: Initial ACUITY: 1 day PAIN SCORE: 4/10 LOCATION: Bilateral arm. FINDINGS: There is spontaneous flow documented in the brachial, basilic, cephalic, axillary, and subclavian vei ns. The vessels are compressible and augmentation response is documented. No filling defects are se en. The flow is phasic with respiration. Direction of flow in the jugular vein is caudal. CONCLUSION: 1. Negative for deep venous thrombosis. Venous line noted in cephalic, subclavian and internal jugula r vein. Horacio Gupta MD on May 28, 2016 at 13:19 Board Certified Radiologist. This report was verified electronically.
--- NOTE | 2016-05-28 19:33 | PD.CONS ---
History of Present Illness Service Neurology Consult Requested By [facility] Reason for Consult rt arm weakness Primary Care Physician Unknown History of Present Illness 31-year-old morbidly obese male, resides in the intermediate, has a chronic tracheostomy, in the icu for weeks 2/2 resp failure, sepsis, pneumonia. neuro consulted 2/2 rt arm weakness, onset unknown. pt denies hx of stroke or sz or neck pain or radicular symptoms. on high dose anticoagulation for hx of pe/afib. Review of Systems ROS Limitations: as above and admit hp Past Family Social History Allergies: Coded Allergies: No Known Allergies (Unverified , 09/16/15) Past Medical History Chronic Respiratory Failure s/p Tracheostomy 4 years ago Morbid Obesity w/ BMI 67.6 Atrial fibrillation Pulmonary embolism 4 years ago Anxiety CHF (Echo 06/07/2014 w/ EF 40-45%; ECHO 08/2015 showing a grossly normal systolic function) HTN Hypothyroidism Past Surgical History Tracheostomy Tonsillectomy Active Ordered Medications Tylenol Diamox Albuterol Allopurinol Lipitor Pulmicort Benadryl Epoprostenol TriCor Levaquin Synthroid Magnesium Solu-Medrol Versed Singulair MVI Zofran Zosyn Potassium Diprivan Elizabeth-Colace Vancomycin Ambien Social History Denies smoking Denies etoh intake Denies use of illicit drugs Has been in SNF Review of Systems All other ROS: ROS reviewed as documented in chart Past Family Social History Allergies: Coded Allergies: *MDRO Multi-Drug Resistant Organism (Verified Adverse Reaction, Unknown, 05/08/16) XDR Pseudomonas aeruginosa (sputum) - 09/18/15; (sputum & wound) - 04/27/16 Active Ordered Medications Current Medications Medications (Trade) Dose Ordered Sig/Per Route Start Time Stop Time Status Last Admin (Tylenol) 650 mg Q4H PRN PO 04/24/16 15:15 05/27/16 14:07 (NS Flush) 2 ml UNSCH PRN FLUSH 04/24/16 15:15 05/13/16 21:22 (NS Flush) 2 ml BID FLUSH 04/24/16 21:00 05/27/16 21:08 (Narcan Inj) 0.4 mg UNSCH PRN IV 04/24/16 15:15 (Zyloprim) 300 mg DAILY PO 04/25/16 09:00 05/28/16 09:01 (Lipitor) 10 mg DAILY PO 04/25/16 09:00 05/28/16 09:00 (Tricor) 48 mg DAILY PO 04/25/16 09:00 05/28/16 09:00 (Synthroid) 50 mcg DAILY@06 PO 04/25/16 06:00 05/28/16 05:06 (Micatin 2% Cream) 1 applic BID TOP 04/24/16 21:00 05/28/16 09:02 (Singulair) 10 mg DAILY PO 04/25/16 09:00 05/28/16 09:00 (Xarelto) 20 mg DAILY PO 04/25/16 09:00 Hold (Ambien) 5 mg HS PRN PO 04/24/16 15:15 Hold 04/25/16 19:40 (Symbicort 160-4.5 Inh) 2 puff BID INH 04/24/16 21:00 Hold 04/25/16 19:40 Miscellaneous Information Patient in critical care unit? Ass... [id number] XX 04/24/16 20:30 04/24/16 20:30 (Peridex 0.12% Liq) 15 ml BID@08,20 MT 04/25/16 08:00 05/28/16 08:59 (Zofran Inj) 4 mg Q6HR PRN IV PUSH 04/25/16 21:00 05/28/16 10:27 Levothyroxine Sodium 25 mcg 25 mcg DAILY@06 IV PUSH 04/26/16 09:00 Hold 05/13/16 06:06 Potassium Chloride 100 ml @ 50 mls/hr Q2H PRN IV 04/27/16 08:15 05/26/16 06:18 (KCl 20 Meq Premix Inj) 100 ml @ 50 mls/hr Q2H PRN IV 04/27/16 08:15 05/17/16 05:25 Potassium Chloride 40 meq 40 meq UNSCH PRN PO/TUBE 04/27/16 08:15 05/16/16 05:33 Potassium Chloride 100 ml @ 25 mls/hr UNSCH PRN IV 04/27/16 08:15 05/24/16 22:32 Potassium Chloride 100 ml @ 50 mls/hr Q2H PRN IV 04/27/16 08:15 05/24/16 06:48 (Magnesium Sulfate Inj/NS Inj) 100 ml @ 50 mls/hr UNSCH PRN IV 04/27/16 08:15 Magnesium Oxide 800 mg 800 mg UNSCH PRN PO 04/27/16 08:15 05/16/16 05:33 (Magnesium Sulfate Inj/NS Inj) 100 ml @ 50 mls/hr UNSCH PRN IV 04/27/16 08:15 05/28/16 09:56 Potassium Phosphate 2000 mg 2,000 mg Q4H PRN PO 04/27/16 08:15 05/20/16 12:11 (Sodium Phosphate Inj/NS 250 ml Inj) 250 ml @ 42 mls/hr UNSCH PRN IV 04/27/16 08:15 (KCl 40 Meq/30 ml Liq) 40 meq UNSCH PRN PO/TUBE 04/27/16 08:15 05/15/16 08:15 Potassium Phosphate 2000 mg 2,000 mg UNSCH PRN PO/TUBE 04/27/16 08:15 (Potassium Phosphate Inj/NS 250 ml Inj) 260 ml @ 42 mls/hr UNSCH PRN IV 04/27/16 08:15 05/13/16 23:30 (Benadryl Inj) 25 mg Q4H PRN IV PUSH 04/27/16 08:30 (Elizabeth-Colace) 1 tab BID PRN PO 04/27/16 08:30 (Lovenox Inj) 150 mg Q12H SQ 05/01/16 16:00 05/28/16 16:00 (Reglan Inj) 10 mg Q12HR IV PUSH 05/06/16 16:00 Hold 05/23/16 08:39 (Mycostatin Powder) 1 applic BID TOPICAL 05/06/16 21:00 05/28/16 09:01 (predniSONE LIQ) 20 mg Taper DAILY PO 05/10/16 09:00 06/03/16 08:59 05/28/16 09:01 (Pepcid) 20 mg Q12HR PO 05/10/16 09:00 05/28/16 09:00 (Zoloft) 50 mg DAILY PO 05/15/16 09:00 05/28/16 09:00 (Ferrous Sulfate Liq) 300 mg DAILY PO 05/20/16 12:00 05/28/16 09:01 (Bumetanide Inj) 1 mg Q12H IV PUSH 05/20/16 22:00 05/28/16 09:56 (Santyl Oint) 1 applic DAILY TOP 05/21/16 13:00 05/28/16 09:01 (KCl) 40 meq Q12HR PO 05/22/16 23:00 05/28/16 09:00 (Morphine Inj) 4 mg Q3H PRN IV PUSH 05/22/16 23:00 05/28/16 14:21 (NS Flush) See Protocol DAILY IVF 05/24/16 09:00 05/27/16 08:29 (NS Flush) See Protocol UNSCH PRN IVF 05/23/16 11:00 (Heparin Central Flush) See Protocol DAILY IVF 05/24/16 09:00 05/24/16 07:40 (Heparin Central Flush) See Protocol UNSCH PRN IVF 05/23/16 11:00 (NS Flush) See Protocol UNSCH PRN IVF 05/23/16 11:00 (D50w (Vial) Inj) 25 ml UNSCH PRN IV PUSH 05/25/16 07:15 (Glucagon Inj) 1 mg UNSCH PRN OTHER 05/25/16 07:15 (NovoLIN R SUPPLEMENTAL SCALE) 1 Q4H SQ 05/25/16 08:00 (Colace Liq) 100 mg Q12HR PO 05/26/16 21:00 05/28/16 09:01 (Cardizem) 90 mg QID PO 05/28/16 09:00 05/28/16 18:11 (Ambien) 5 mg HS PRN PO 05/28/16 15:15 Exam I&O / VS 05/27/16 05/27/16 05/28/16 15:00 23:00 07:00 Intake Total 910 ml 650 ml 782 ml Output Total 850 ml 600 ml 1000 ml Balance 60 ml 50 ml -218 ml Intake Oral 820 ml 480 ml 720 ml IV Total 90 ml 170 ml 62 ml Output Urine Total 850 ml 600 ml 1000 ml # Bowel Movements 0 1 Vital Signs Date Time Temp Pulse Resp B/P Pulse Ox O2 Delivery O2 Flow Rate FiO2 05/28/16 18:00 90 05/28/16 16:00 35 05/28/16 16:00 80 05/28/16 16:00 98.4 80 15 145/67 96 05/28/16 15:29 94 35 05/28/16 14:00 93 05/28/16 12:00 35 05/28/16 12:00 98.4 84 17 157/74 96 05/28/16 12:00 84 05/28/16 11:44 100 35 05/28/16 11:12 18 05/28/16 10:00 91 05/28/16 09:10 100 35 05/28/16 08:00 89 05/28/16 08:00 98.4 89 21 152/72 95 05/28/16 08:00 35 05/28/16 06:00 86 05/28/16 04:22 99 40 05/28/16 04:00 91 05/28/16 04:00 40 05/28/16 04:00 98.4 91 19 181/88 78 05/28/16 02:00 89 05/28/16 00:00 40 05/28/16 00:00 99.0 84 20 169/77 97 05/28/16 00:00 84 05/28/16 00:00 97 40 05/27/16 22:00 81 05/27/16 20:44 98 40 05/27/16 20:00 97.7 85 19 153/72 97 05/27/16 20:00 40 05/27/16 20:00 85 Exam Comments awake, alert, trach, dysphonic speech, follows, eomi, face sym, morbidly obese, rt ue: mild shoulder shrug, diffusely weak unable to raise, arm/wrist extension 0/5, able to slightly extend rt thumb and index but not rest, hand in benedict posture, gross touch intact, has mild jerking of rt fingers, unable to raise rt leg, left leg 2-3/5, left arm 3/5, depressed msr, no clonus, planter flexor Review/Management Diagnosis/Plan: (1) Weakness of right upper extremity Plan: etiology: r/o left hemispheric event with leg weakness as well vs cervical cord injury vs rt mixed cervical plexopathy probable underlying critical illness neuropathy recs mri brain/cspine if feasible. if not 2/2 weight, then ct brain and cspine non- contrast eeg if above negative then consult rehab md for rt ue emg (2) Atrial fibrillation (3) CHF (congestive heart failure) Problem Qualifiers (1) Atrial fibrillation: Qualified Code: I48.2 - Chronic atrial fibrillation (2) CHF (congestive heart failure): Qualified Code: I50.9 - Acute on chronic congestive heart failure, unspecified congestive heart failure type Aravind Ritchie MD May 28, 2016 19:33
[2016-05-28] MEDS: RESP: ALBUTEROL 2.5 MG/IPRATROPIUM 0.5 MG NEB (PRN) NEB (20:15)
[2016-05-29] VITALS (19 sets, daily range): BP systolic 135–170; BP diastolic 64–77; PULSE 75–119; RESP 14–25; TEMP 97.9–98.6; O2SAT 88–100
[2016-05-29] MEDS: MORPHINE SULFATE 4 MG/ML INJ IV PUSH PRN ×2 (00:38→06:55)
[2016-05-29] MEDS: ENOXAPARIN SODIUM 150 MG/ML SYRINGE SQ SCH ×2 (04:00→15:46)
[2016-05-29] MEDS: INSULIN NovoLIN REGULAR SUPPLEMENTAL SCALE SQ SCH ×3 (04:00→08:00)
[2016-05-29] MEDS: LEVOTHYROXINE SODIUM 50 MCG TAB PO SCH (05:43)
[2016-05-29 07:11] LABS: BICARBONATE 43.6 MEQ/L (21.0-32.0); FREE T4 1.52 NG/DL (0.76-1.46); MAGNESIUM 1.6 MG/DL (1.5-2.5); POTASSIUM 3.6 MEQ/L (3.5-5.1)
[2016-05-29 07:13] LABS: HEMATOCRIT 28.3 % (39.0-51.0); MEAN CELL VOLUME 83.3 FL (80.0-100.0); MEAN CORPUSCULAR HEMOGLOBIN 26.2 PG (27.0-34.0); MEAN CORPUSCULAR HGB CONC 31.5 % (32.0-36.0); PLATELET COUNT 362 TH/MM3 (150-450); RED CELL DISTRIBUTION WIDTH 27.6 % (11.6-17.2)
[2016-05-29] MEDS: CHLORHEXIDINE 0.12% (ORAL KIT) 15 ML CUP MT SCH ×2 (08:23→20:00)
[2016-05-29] MEDS: SODIUM CHLORIDE 0.9% FLUSH 5 ML FLUSH FLUSH SCH ×2 (08:24→21:21)
[2016-05-29] MEDS: DILTIAZEM HCL 90 MG TAB PO SCH ×3 (08:25→21:21)
[2016-05-29] MEDS: DOCUSATE SODIUM 100 MG/10 ML UDC PO SCH ×2 (08:25→21:20)
[2016-05-29] MEDS: FERROUS SULFATE 300 MG /5ML UDC PO SCH (08:25)
[2016-05-29] MEDS: ALLOPURINOL 300 MG TAB PO SCH (08:25)
[2016-05-29] MEDS: POTASSIUM CHLORIDE 20 MEQ CONTROLLED RELEASE TAB PO SCH ×2 (08:25→21:21)
[2016-05-29] MEDS: SERTRALINE HCL 50 MG TAB PO SCH (08:26)
[2016-05-29] MEDS: ATORVASTATIN 10 MG TAB PO SCH (08:26)
[2016-05-29] MEDS: MONTELUKAST SODIUM 10 MG TAB PO SCH (08:26)
[2016-05-29] MEDS: RESP: BUDESONIDE 0.5 MG/2 ML NEB NEB SCH ×2 (08:26→20:24)
[2016-05-29] MEDS: FAMOTIDINE 20 MG TAB PO SCH ×2 (08:26→21:20)
[2016-05-29] MEDS: FENOFIBRATE 48 MG TAB PO SCH (08:26)
[2016-05-29] MEDS: NYSTATIN 100,000 U/GM PWD 15 GM BTL TOPICAL SCH (08:27)
[2016-05-29] MEDS: COLLAGENASE OINT 30 GM TUBE TOP SCH (08:27)
[2016-05-29] MEDS: MICONAZOLE NITRATE 2% CREAM 15 GM TOP SCH (08:27)
[2016-05-29] MEDS: BUMETANIDE INJ 1 MG/4 ML VIAL IV PUSH SCH ×2 (09:32→21:20)
[2016-05-29] MEDS: predniSONE 5 MG/5 ML CUP PO SCH (09:32)
--- NOTE | 2016-05-29 09:32 | HHI.CCPN ---
Subjective Remarks/Hospital Course 31 year old morbidly obese (BMI 68) male with chronic respiratory failure s/p tracheostomy 4 years ago, atrial fibrillation and pulmonary embolism on Xarelto , COPD, CHF and h/o HTN. He presented from [facility] with low oxygen saturation apparently his oxygen saturation was 82% on RA. He was placed back on 6L of oxygen via his trach mask and given a breathing treatment, initially improved however he started drifting back to low 80s again. Chest x-ray showed bibasilar infiltrates and pulmonary edema. Patient was admitted to the [facility] service and was started on IV steroids IV vancomycin and Zosyn and Levaquin for healthcare associated pneumonia. After starting ACV, patient was more awake but there was a significant amount of air leak around his tracheostomy. Patient has had a Shiley 6.0 Proximal XLT, but the ems helicopter pilot balloon had been cut off. 05/02 the patient became acutely hypoxemic with a large cuff leak, underwent emergency trach exchange at bedside by Dr. Macias. FiO2 65% PEEP 14 05/13 Patient is on ventilator via trach, on Fentanyl infusion however he is awake and alert. On PRVC with FIO2 40%. Afebrile. 05/14 No acute events overnight. Tmax 99.8. Patient is awake, alert on ventilator via trach still requiring increase O2. On PRVC with PEEP: 10 and FIO2 70%. 05/15 patient acutely desaturated after he was found. Saturation went down to 70% on 100% oxygen. Bag and mask ventilation carried out, with eventual improvement on oxygen saturation to 85%. Patient was placed on PC/AC mode of ventilation, with PEEP of 15 and instructed to pressure of 30. Eventually oxygen saturation improved to 95%. Lasix him today as the chest x-ray from today shows increasing bilateral infiltrate and pulmonary edema. Also sputum culture will be sent 05/16 Patient is on Fentanyl and Diprivan infusion but awake and alert. Afebrile. On PC/AC with PEEP:15, IP: 22, IT:1.3 and FIO2 50% 05/17 Patient is off Diprivan and remains on Fentanyl infusion for sedation. On PC/AC with PEEP: down 10 and FIO2 40%. Afebrile. 05/18 Patient remains on ventilator via trach on PC/AC with PEEP:12, FIO2 40%, IP:22, IT:1.0. On Fentanyl infusion 05/19 No acute events overnight. On Fentanyl infusion but awake and alert. Afebrile. 05/20 Tolerating C Pap 17/12 FIO2 40, sats 98%. RSBI in 20s, appears can be weaned further. Afebrile. Speech therapy evaluated and ok for regular diet. Starting with full liquid. 05/21 Will wean PSV to 15/10. Tolerated full liquids, will advance to regular diet per speech recs. Subjective: 05/22 On PSV 15/10 FIO2 40 with sats 92%. Smiling today. Glad to be eating regular food again. 05/23 No acute events overnight. Remains on CPAP with PS 15, PEEP:10 and FIO2 40 %. Afebrile. Off Fentanyl drip. Afebrile. Awake and alert. 05/24 Patient is on CPAP 12/ with 40% FIO2. Afebrile. Awake and alert, on no sedation. 05/25 No acute events overnight. Patient was placed back on PC/AC overnight. Tolerated CPAP trials during day yesterday. Awake and alert. On no drips. Afebrile. 05/26 Afebrile. Tmax 98.6. Today the patient complained of nausea requiring Zofran. The patient has a lack of an appetite, with noted hypoglycemia early this a.m. blood glucose level 69. Patient tolerating CPAP well greater than 12 hours in the last 24 hours. 05/27 The patient tolerated CPAP for over 36 hours, O2 sat a knee 94% on FIO2 40 %. The patient had an increase in appetite. The patient continues on full liquid diet. 05/28 The patient declined physical therapy treatment, yesterday and also overnight declined to be moved by nursing staff. The patient refused dinner last evening, of note patient was reevaluated by speech therapy and can consume a heart healthy diet with thin liquids. The patient continues on physical therapy for strengthening exercises of all extremities specifically noted right upper extremity continues to be weak with gross fibrillations noted in hand and forearm. 05/29 Afebrile. No change in right upper extremity weakness. The patient was seen by neurology yesterday plan for MRI today if possible in hospital MRI, and EMG studies. No complaints overnight. Patient continues to refuse to have activities performed, movement in bed. The patient appears to be depressed, psychiatry consulted. Objective Vital Signs Date Time Temp Pulse Resp B/P Pulse Ox O2 Delivery O2 Flow Rate FiO2 05/29/16 08:27 100 35 05/29/16 07:00 18 05/29/16 06:00 80 05/29/16 04:00 98.3 160/74 05/26/16 08:10 Ventilator Intake and Output 05/28/16 05/28/16 05/28/16 07:59 15:59 23:59 Intake Total 782 ml 133 ml 583 ml Output Total 1000 ml 2700 ml 1400 ml Balance -218 ml -2567 ml -817 ml Result Diagram: 05/29/16 0623 05/29/16 0623 Other Results Microbiology Date/Time Procedure Status Source Growth 05/27/16 16:15 Stool Occult Blood (KAYLA) - Final Complete Stool Stool HEMOCCULT NEGATIVE Imaging Last Impressions Chest X-Ray 05/20/16 0000 Signed Impressions: Service Date/Time: Friday, May 20, 2016 03:21 - CONCLUSION: Persistent mid and lower lung areas of consolidation or atelectasis being worse in the right. There has been mild improvement. Garcia Lujan MD Upper Extremity Ultrasound 05/02/16 0000 Signed Impressions: Service Date/Time: April 20:51 - CONCLUSION: No DVT. Garcia Lujan MD Abdomen X-Ray 04/29/16 0000 Signed Impressions: Service Date/Time: Friday, April 29, 2016 07:12 - CONCLUSION: Suspect Dobbhoff tube in the distal stomach. Garcia Lujan MD Objective Remarks GENERAL: Patient is 31yo on ventilator via trach, awake and follows commands. Super Morbidly obese. Communicating appropriately this a.m. H and continuing to decline in participation of care activities with nursing and physical therapy staff SKIN: Warm and dry. HEAD: Normocephalic. EYES: No scleral icterus. No injection or drainage. NECK: Supple, trachea midline. Shiley 6.0 Proximal XLT, (new trach placed ) CARDIOVASCULAR:Tachycardic without murmurs, gallops, or rubs. RESPIRATORY: Breath sounds equal bilaterally. Distant secondary to habitus . On CPAP GASTROINTESTINAL: Abdomen soft, obese,, non-tender, nondistended. Multiple noted areas of ecchymotic bruising secondary to subcutaneous injections MUSCULOSKELETAL: No cyanosis, or edema. Pedal edema. Wound on lateral aspect of right lower leg above lateral malleolus , dressing C/D/I. right upper extremity motor strength, inability to perform flexion, or pronation, hand clinical research manager strength 2/5. Neuro: Awake and alert. Moves all extremities with focal deficit right upper extremity. Urinary Catheter: Yes [place] insert reason: Measure Accurate Output Date of Insertion: Apr 24, 2016 Date of Insertion: Apr 26, 2016 Line: PICC Side: Right A/P Assessment and Plan ASSESSMENT Acute hypercapnic and hypoxemic respiratory failure Acute worsening of hypoxia due to lung de-recruitment 05/15/16 Healthcare associated pneumonia MDR Pseudomonas Sepsis/persistent fever CHF exacerbation CO2 narcosis Tracheostomy ems helicopter pilot balloon damage -status post exchange with new Shiley 6.0 Proximal XLT 05/02/16 Chronic Respiratory Failure s/p Tracheostomy 4 years ago (Shiley 6.0 Proximal XLT) COPD/obesity hypoventilation syndrome Morbid Obesity BMI 67 History of pulmonary embolism 4 years ago Chronic atrial fibrillation Anxiety CHF (Echo 2013 EF 40-45%; ECHO 08/2015 showing a grossly normal systolic function) Hypertension Hypothyroidism PLAN NEURO: CO2 narcosis - resolved Pain Anxiety Depression Critical care polyneuropathy Unilateral right upper extremity weakness 05/21-possibly secondary to nerve compression, C6, C7 (brachial plexus) - On morphine 4 mg IV every 3 hours as needed for breakthrough pain. -GCS 14 T. -Continue Zoloft 50mg daily -Noted right upper extremity absence of triceps reflex, diminished sensation/ numbness in C6-C7 dermatome level both anterior and posterior, inability for pronation, handgrip strength 2/5, lack of wrist extension/flexion. C6, C7 myotome pattern of muscle weakness.Positive shoulder abduction/adduction. -Continued PT daily, with strengthening exercise (encouraged patient to participate) patient counseled on the importance. -Neurology consult-plan for MRI today and subsequent EMG study, right upper extremity -Venous Doppler RUE 05/28-negative for DVT -Obtain psychiatric consultation RESP: Acute hypercapnic and hypoxemic respiratory failure Acute lung derecruitment today 05/15 Healthcare associated pneumonia Tracheostomy ems helicopter pilot balloon damage (Shiley 6.0 Proximal XLT) s/p new trach placement 05/02 Chronic Respiratory Failure s/p Tracheostomy 4 years ago COPD/obesity hypoventilation syndrome History of pulmonary embolism 4 years ago Leukocytosis-resolved Pulmonary edema - Continue with vent support keep sat >92%. Currently on CPAP -Begin trach collar trials this afternoon post MRI - PSV 06/06 40% and continue weaning as tolerated. Continue FIO2 .35% - s/p Bronchoscopy 05/11 -follow up on BAL results-negative - DuoNeb every 6 hours scheduled, q 2 prn. - Pulmicort BID (home med), -Continue Singulair 10 mg po daily - Therapeutic Lovenox 150 mg every 12 hours, consider transition to Xarelto ( home med) upon planned discharge CV: CHF exacerbation Pulmonary edema Paroxysmal atrial fibrillation (chronic) Hyperlipidemia - Monitor HR and BP keep MAP>65mmHg -Systolic BP [id number], continue to monitor trend possible escalation of antihypertensive meds - on Cardizem 60mg QID -Continue Lipitor 10 g by mouth daily. -Continue TriCor 40 mg by mouth daily - Therapeutic Lovenox 150 mg twice a day GI: Super morbid obesity with BMI of 63 -Regular diet ,thin liquids per speech recs. - On Pepcid 20mg BID -Poor appetite, refusing to eat -Add multivitamin to medication regimen -Consider dietary supplementation FEN/RENAL: Hypokalemia - Monitor renal function , I/O. - Electrolytes replacement per protocol. - Bumex 1 mg IV q12 with KCL 40 q12 ID: Healthcare associated pneumonia Sepsis MDRO Cellulitis right arm-resolved Leukocytosis-resolved -WBC 8.0 - Continue abx per ID ( Rocephin) today's last dose (05/12- 05/25) -Urine cx: Proteus Mirabilis 05/05 -Sputum cx: Providencia 05/05- resolved -Wound cx: 05/13 Proteus, Pseudomonas, Group D Enterococcus - Wound culture Pseudomonas MDR 04/27 - Sputum culture-Pseudomonas MDR- 04/27 - Bronchoscopy and re-culture 05/10 follow up on BAL results-neg to date - Follow up on sputum cx from 05/15- NGTD HEME: History of PE on chronic anticoagulation with Xarelto Anemia, iron deficiency and anemia of critical illness. -Monitor CBC, -Xarelto for PE 4 yrs ago. -Xarelto.held, On therapeutic Lovenox 150 mg twice a day, will continue -Ferrous sulfate 300 mg/q day ENDO: Hypothyroidism -On SSI (Low scale) -Continue levothyroxine 50 mcg po daily -Free T4 1.52 PROPH: -Bilateral lower extremity SCDs. Lovenox DVT therapeutic dose. GI prophylaxis- Pepcid 20mg BID LINES: - PICC line RUE- No DVT on US 05/02 Out of bed with assistance. PT out of bed with vent. OT. Discussed with patient and RN at bedside. Level 3 Physician Juana Cisneros MD May 29, 2016 09:32
--- NOTE | 2016-05-29 09:59 | HHI.FPPN ---
Subjective Remarks No acute events overnight. Afebrile. Vitals stables. HTN better controlled after increasing cardiazem yesterday- 160/80. Continuing to wean from vent. PEEP 8. FIO2 35% Tolerated CPAP overnight well ( 100% saturation per EMR) Having difficulty feeding due to inability to move RUE and weakness of LUE. Pt demonstrates unable to hold cup to mouth to take liquids. Requesting omelettes at meals, if possible. POC Glucose ideal- 90-110. Pain in RUE arm/shoulder. Denies leg pain or back pain. Insomnia unchanged. Did not request home sleep med that was made available. Nausea unchanged. Denies fevers/chills, abdominal pain, emesis. R ankle cellulitis remains covered- wound c/d/i. Urinating via cath without difficulty. Unusually large output yesterday 4.3L. Multiple BMs. Objective Vitals Vital Signs Date Time Temp Pulse Resp B/P Pulse Ox O2 Delivery O2 Flow Rate FiO2 05/29/16 08:27 100 35 05/29/16 07:00 18 05/29/16 06:00 80 05/29/16 05:03 100 35 05/29/16 04:00 98.3 75 18 160/74 100 05/29/16 04:00 35 05/29/16 04:00 75 05/29/16 02:00 77 05/29/16 01:16 100 35 05/29/16 00:00 35 05/29/16 00:00 98.6 81 18 170/76 98 05/29/16 00:00 81 05/28/16 22:00 79 05/28/16 20:16 94 35 05/28/16 20:00 98.3 81 17 157/74 93 05/28/16 20:00 35 05/28/16 20:00 81 05/28/16 18:00 90 05/28/16 16:00 35 05/28/16 16:00 80 05/28/16 16:00 98.4 80 15 145/67 96 05/28/16 15:29 94 35 05/28/16 14:00 93 05/28/16 12:00 35 05/28/16 12:00 98.4 84 17 157/74 96 05/28/16 12:00 84 05/28/16 11:44 100 35 05/28/16 10:00 91 I/O 05/28/16 05/28/16 05/28/16 05/29/16 05/29/16 05/29/16 07:00 15:00 23:00 07:00 15:00 23:00 Intake Total 782 ml 133 ml 583 ml 586 ml Output Total 1000 ml 2700 ml 1400 ml 250 ml Balance -218 ml -2567 ml -817 ml 336 ml Intake Oral 720 ml 480 ml 480 ml IV Total 62 ml 133 ml 103 ml 106 ml Output Urine Total 1000 ml 2700 ml 1400 ml 250 ml # Bowel Movements 1 0 1 Result Diagram: 05/29/16 0623 05/29/16 0623 Imaging Last Impressions Upper Extremity Ultrasound 05/28/16 0000 Signed Impressions: Service Date/Time: Saturday, May 28, 2016 10:16 - CONCLUSION: 1. Negative for deep venous thrombosis. Venous line noted in cephalic, subclavian and internal jugular vein. Horacio Gupta MD Chest X-Ray 05/20/16 0000 Signed Impressions: Service Date/Time: Friday, May 20, 2016 03:21 - CONCLUSION: Persistent mid and lower lung areas of consolidation or atelectasis being worse in the right. There has been mild improvement. Garcia Lujan MD Abdomen X-Ray 04/29/16 0000 Signed Impressions: Service Date/Time: Friday, April 29, 2016 07:12 - CONCLUSION: Suspect Dobbhoff tube in the distal stomach. Garcia Lujan MD Objective Remarks GEN: Morbidly obese male. (BMI 63). On mechanical ventilation, awake and alert DERM: Warm and dry. Cellulitis R lateral malleolus, covered in bandage, managed by wound care. Grade 2 ulcer. Nails bitten and cuticles picked at. Skin of hands quite wrinkled/pruny. Yellow ecchymosis at periumbilical region and along R fold of pannus. No erythema, fluid collection, discharge, or abdominal skin breakdown. Numerous folds due to body habitus. No rash appreciated under mammary glands or pannus on R side. For patient modesty, exam along pannus limited HEENT: Head NCAT. Tracheotomy site c/d/i CV: Distant heart sounds. RRR. Radial pulse 2+. RESP: On mechanical ventilation. A/C 18. FiO2 35, PEEP 8. Transmitted upper respiratory sounds. No wheezing GI: Abdomen soft, obese, non-distended, non-tender. +BS MSK: Lower extremity edema. No calf tenderness. NEURO: Able to speak in short sentences, voice hoarse with trach. Right arm with numbness/tingling and loss to sensation, predominantly of thumb, index, and middle finger. Strength R forearm/arm 2/5. Deltoid 5/5. Intrinsic muscles R hand 4/5 strength. LUE ROM limited. Strength 3/5. Date of Insertion: Apr 24, 2016 A/P Assessment and Plan 31y male w chronic respiratory failure s/p tracheostomy 4 years ago and Pickwickian/hypoventilation syndrome (BMI 68) admitted from rehab facility for treatment of hypoxia and PNA with IV antibiotics and supportive care. Discharge Planning Days, pending weaning from mechanical ventilation with stable clinical status. Ideally, return to long-term rehab facility. If qualifies, could consider terminal superintendent vent facility depending on status. Problem List: (1) Weakness of extremity Status: Chronic Plan: Impression: RLE- arm/wrist extension 0/5. Hand in [place] posture, SILT , mild jerking of R fingers, diffusely weak, unable to raise. RLE- 2/5. LUE- 2 -3/5. LLE- 2-3/5. Ddx: C7 radiculopathy secondary to positioning vs L hemispheric event vs cervical cord injury vs mixed cervical plexopathy vs deconditioning vs apathy 2/2 MDD vs protein malnutrition vs steroid induced neuropathy. Further chart review needed to clarify onset. Possibly not chronic , as previously understood, but acute injury to RUE imposed on generalized weakness and deterioration - Neurology consulted, recommendations appreciated - U/S RUE (05/28) neg for DVT. - EMG RUE pending - MRI brain/C-spine, if feasable. If not 2/2 weight, CT brain and Cspine non -contrast - Clarify if EEG recommended as well, or only EMG -Continue PT, appreciate recommendations - Continue RUE PT - Requested PT eval/tx LUE weakness preventing patient from feeding self, as well as tx whole body/generalized weakness secondary to prolonged immobility -Requested assistance with feeding 2/2 bilateral UE weakness (2) On mechanically assisted ventilation Status: Acute Plan: Impression: Acute on chronic hypoxemic respiratory failure secondary to HCAP (resolved, completed abx course) and tracheostomy leak. Possibly compounded by paroxysmal Afib, hypoventilation syndrome, intrinsic muscle weakness. S/p urgent trach exchange 05/02 due to acute hypoxemia and large cuff leak. - Critical care consulted, appreciate recommendations and help with management - Placed on mechanical ventilation 04/24, critical care managing weaning. FiO2 35% PEEP 8 with CPAP overnight, as tolerated - Continue solumedrol 20mg taper until 06/03 - [facility] solution for obesity hypoventilation (BMI 68) is significant weight loss via gastric banding/bypass. Previous team (Eddie/Alfredito) initiated discussion (05/17), requires further discussion. - Consult case management for further assistance with resources, recommendations (3) HTN (hypertension) Status: Chronic Plan: Impression: B/P moderately controlled -Cardiazem to 90mg QID (4) Nausea Status: Chronic Plan: Impression: Ddx: medication side effect vs psychosomatic vs GERD vs ulcer -Zofran 4mg PO PRN (5) CHF (congestive heart failure) Status: Chronic Plan: Impression: Likely HFpEF, though imaging unable to confirm. ECHO limited due to body habitus/poor image quality. EF could not be estimated. Systolic fxb appeared grossly normal. BNP 419 -> 151. Suspect cardiac problems secondary to hypoventilation. ECHO 08/2015: grossly normal systolic function with no definitive EF. ECHO 05/2014: EF of 40-45% w mildly dilated left atrium -Continue -Bumex 1mg IV BID, monitor I/Os, CC actively managing diuresis -Duonebs q6h REYES + q2h PRN (6) Normocytic anemia Status: Chronic Plan: Impression: Secondary to chronic illness vs hypoxia. Slowly improving. Hemoccult neg -Ferrous sulfate 300mg daily (7) HCAP (healthcare-associated pneumonia) Status: Resolved Plan: Impression: Appears resolved s/p multiple antibiotics (below). Sputum culture 04/27 grew resistant pseudomonas (04/27) with repeat cultures (05/04, 05/05) growing likely contaminants. Repeat SCx 05/10 NGTD. Repeat ABG 04/26 and CXR 04/28 showed improvement. Stable bibasilar consolidative infiltrates observed on CXR. BCx no growth (05/01, 05/03, 05/04). ID consulted, now signed off. -Need for continued contact and droplet precautions per CC recommendations Abx History Zosyn 4.5gm IV q6h (04/24 - 04/29) Levaquin 750mg IV q24h (04/24-04/30) Zerbaxa 1.5 g IV q8h (04/29 - 05/07) Vancomycin IV (04/24 - 05/06) Ceftriaxone IV (05/07 - 05/25) Linezolid 600 mg PO BID (05/06 - 05/13) (8) Stable medical conditions Status: Chronic Plan: MORBID OBESITY WITH BMI 60-69 -see above plan for mechanical ventilation HYPOTHYROIDISM 08/2015- TSH low, free T4 wnl. 05/27/16: fT4 just outside upper limit of normal. -Synthroid 50 mcg PO daily FUNGAL INFECTION: skin folds, especially pannus -Nystatin powder, apply daily to skin folds -Miconazole cream, apply BID skin folds GOUT -Continue allopurinol 300mg daily HYPERLIPIDEMIA -Continue atorvastatin 10mg daily DEPRESSION -Increased sertraline to 100 mg PO daily -Consider trending PHQ-9 scoring and outpatient psych at discharge INSOMNIA: difficulty falling asleep, no difficulty staying asleep. -home Zolpidem 5mg HS PRN at pt request (9) Resolved condition, follow-up Status: Chronic Plan: Impression: resolved conditions this hospital visit -Cellulitis of Chest Wall: resolved following completed course of linezolid 600 mg PO BID (05/06-05/13), per ID recs -Yeast UTI: resolved following completed course of Diflucan. UCx 05/01: Dionne albicans. Repeat U/A 05/05 dirty. UCx 05/05: Proteus Mirabilis - Paroxysmal Afib: EKG 05/17 in sinus rhythm. Hold home Xarelto 20mg/daily while on therapeutic Lovenox (10) Nutrition, metabolism, and development symptoms Status: Acute Plan: Fluids: PO Electrolytes: replete PRN, per protocol Nutrition: Regular Diet, 2500 calorie restricted, 2g sodium restricted, Speech ( 05/28) signed off. Transition to oral feeds (05/29). Weight on admission: 218kg (480 lbs). Weight 05/29- 205 kg (452 lbs). Continue to monitor and encourage weight loss and modify/restrict diet, as appropriate to achieve this goal GI ppx: Famotidine 20mg BID DVT PPx: Therapeutic Lovenox 150mg SQ BID Glucose: Discontinued SSI, has not been required (05/29). Glu trending 90-110 Pain: Oxycodone 7.5/325 q4 PRN RUE pain Bowels: Colace 100mg BID, Senna 1 tab BID DW: Dr. Wright SDW: Dr Kelly Problem Qualifiers (1) HTN (hypertension): Qualified Code: I10 - Essential hypertension (2) CHF (congestive heart failure): Qualified Code: I50.9 - Acute on chronic congestive heart failure, unspecified congestive heart failure type Holley Baires MD R1 May 29, 2016 09:58 Qualified Code: E03.9 - Hypothyroidism, unspecified type Holley Baires MD R1 May 29, 2016 09:58
[2016-05-29] MEDS: MULTIVITAMINS LIQUID 5 ML UDC PO SCH (10:00)
[2016-05-29] MEDS: oxyCODONE/ACETAMINOPHEN 7.5 MG/325 MG TAB PO PRN ×2 (13:01→21:21)
--- NOTE | 2016-05-29 15:13 | RADRPT ---
EXAM DATE/TIME: 05/29/2016 13:51 [facility] COMPARISON: CT BRAIN W/O CONTRAST, June 21, 2013, 9:56. INDICATIONS : Right arm tingling. MEDICAL HISTORY : Afib, PE, Morbid obesity. SURGICAL HISTORY : Tonsillectomy. Tracheostomy. ENCOUNTER: Subsequent ACUITY: 2 weeks PAIN SCORE: 0/10 LOCATION: head TECHNIQUE: Multiplanar, multisequence MRI of the brain was performed without contrast. FINDINGS: CEREBRUM: Focal area of high flair abnormality along the right frontal parietal convexity likely old ischemic c hange. The ventricles are normal for age. No evidence of midline shift, mass lesion, hemorrhage or a cute infarction. No extraaxial fluid collections are seen. The pituitary gland and suprasellar cist haider are normal in configuration. WHITE MATTER: Scattered areas of high focal flair signal abnormalities are seen in the white matter. POSTERIOR FOSSA: The cerebellum and brainstem are intact. The 4th ventricle is midline. The cerebellopontine angle is unremarkable. The cerebellar tonsils are normal in position. DIFFUSION IMAGING: No focal areas of restricted diffusion are seen. No evidence of acute infarction. EXTRACRANIAL: The visualized portions of the orbits and paranasal sinuses are unremarkable. CONCLUSION: 1. Focal chronic ischemic change in the high right frontal parietal convexity stable from previous CT scan. 2. No acute intracranial abnormality. 3. Minimal nonspecific white matter changes. Vishnu Woodward MD on May 29, 2016 at 15:01 Board Certified Radiologist. This report was verified electronically.
--- NOTE | 2016-05-29 15:16 | RADRPT ---
EXAM DATE/TIME: 05/29/2016 13:51 [facility] COMPARISON: No previous studies available for comparison. INDICATIONS : Right arm tingling. MEDICAL HISTORY : Afib, Morbid Obesity,PE. SURGICAL HISTORY : Tonsillectomy. Tracheostomy. ENCOUNTER: Subsequent ACUITY: 2 weeks PAIN SCORE: 0/10 LOCATION: head TECHNIQUE: Multiplanar, multisequence MRI examination of the cervical spine was performed. FINDINGS: Motion artifact. VERTEBRAE: Normal vertebral body height. Homogeneous marrow signal with exception of small vertebral body heman gioma C6. ALIGNMENT: No evidence of subluxation. CORD: Normal configuration and signal. POST FOSSA: The cerebellar tonsils are normal in position. C2-C3: The thecal sac has a normal configuration. There is no evidence of disc herniation or spinal canal s tenosis. The neural foramina are patent bilaterally. C3-C4: The thecal sac has a normal configuration. There is no evidence of disc herniation or spinal canal s tenosis. The neural foramina are patent bilaterally. C4-C5: The thecal sac has a normal configuration. There is no evidence of disc herniation or spinal canal s tenosis. The neural foramina are patent bilaterally. C5-C6: The thecal sac has a normal configuration. There is no evidence of disc herniation or spinal canal s tenosis. The neural foramina are patent bilaterally. C6-C7: The thecal sac has a normal configuration. There is no evidence of disc herniation or spinal canal s tenosis. The neural foramina are patent bilaterally. C7-T1: The thecal sac has a normal configuration. There is no evidence of disc herniation or spinal canal s tenosis. The neural foramina are patent bilaterally. CONCLUSION: Limited study but appears normal. Vishnu Woodward MD on May 29, 2016 at 15:11 Board Certified Radiologist. This report was verified electronically.
--- NOTE | 2016-05-29 17:49 | MG ---
cc: RADHA MORALES M.D. Lab No: [id number] Date: 05/29/16 Age: Sex: M Race: Respiratory failure, on anticoagulation, a-fib. MEDICATIONS 1. Cardizem. 2. Zoloft. 3. Lipitor. DESCRIPTION Diffuse alpha and beta rhythms are seen. Some slowing in the 4 Hz range is seen bilaterally. I suspect he is asleep during that time. Bitemporal muscle artifact is at times noted. Photic stimulation is then performed without significant posterior driving. Hyperventilation is not performed. The tech never notes that he is asleep, however a lot of it looks like he might be and some stage 2 sleep. No focal abnormality was noted. No seizure activity was seen. IMPRESSION It looks like there is a lot of stage 2 sleep. If he did not sleep during this it would be consistent with a moderate diffuse encephalopathy but I think probably stage 2 sleep here. I do not see any seizure activity. There is some slight slowing which would be consistent with a mild diffuse encephalopathy. Clinical correlation is needed. MD MARY Jean Baptiste/BJCarla /5:15 PM /5:30 PM
[2016-05-29] MEDS: RESP: ALBUTEROL 2.5 MG/IPRATROPIUM 0.5 MG NEB (PRN) NEB (20:24)
[2016-05-30] VITALS (16 sets, daily range): BP systolic 147–176; BP diastolic 73–79; PULSE 81–107; RESP 15–28; TEMP 98–98.6; O2SAT 90–100
[2016-05-30] MEDS: ZOLPIDEM TARTRATE 5 MG TAB PO PRN ×2 (00:33→20:09)
[2016-05-30] MEDS: NYSTATIN 100,000 U/GM PWD 15 GM BTL TOPICAL SCH ×3 (00:35→20:10)
[2016-05-30] MEDS: MICONAZOLE NITRATE 2% CREAM 15 GM TOP SCH ×3 (00:35→20:11)
[2016-05-30] MEDS: LEVOTHYROXINE SODIUM 50 MCG TAB PO SCH (05:32)
[2016-05-30] MEDS: ENOXAPARIN SODIUM 150 MG/ML SYRINGE SQ SCH ×2 (05:44→17:56)
[2016-05-30 06:07] LABS: HEMATOCRIT 28.2 % (39.0-51.0); MEAN CELL VOLUME 83.7 FL (80.0-100.0); MEAN CORPUSCULAR HEMOGLOBIN 25.2 PG (27.0-34.0); MEAN CORPUSCULAR HGB CONC 30.1 % (32.0-36.0); PLATELET COUNT 339 TH/MM3 (150-450); RED BLOOD COUNT 3.37 MIL/MM3 (4.50-5.90); RED CELL DISTRIBUTION WIDTH 27.2 % (11.6-17.2); WHITE BLOOD COUNT 7.4 TH/MM3 (4.0-11.0)
[2016-05-30 06:11] LABS: REVIEW FLAG FINAL
[2016-05-30] MEDS ORDERED: DOCUSATE SODIUM 100 MG/10 ML UDC PO PRN (06:15)
[2016-05-30 06:18] LABS: BICARBONATE 44.2 MEQ/L (21.0-32.0); MAGNESIUM 1.5 MG/DL (1.5-2.5); POTASSIUM 3.3 MEQ/L (3.5-5.1)
--- NOTE | 2016-05-30 06:44 | HHI.FPPN ---
Subjective Remarks No acute events overnight. Afebrile. Vital signs stable. HTN moderately well controlled to 155/75 Continuing to wean from vent, per CC recommendations. T-piece in place over trach. Tolerated CPAP overnight (Sat 92-94%). POC Glu well controlled 90-110. No hx DM. Discontinued LSSI and glu checks I/O- urinating via cath w/o difficulty. O: 1.4L. +BM. OOB w assistance. Wt stable from Y- 205k (-0.3kg) Acute changes +Nausea +RUE/LUE weakness. Denies fevers/chills, vomiting, abdominal pain, leg pain. Emesis during PT session yesterday secondary to RUE pain. Not receive Zofran. Continued difficulty feeding. Reports still unable to lift LUE to mouth. Received help with feeds. Nausea unchanged, no emesis today. Requesting omelettes. No adverse effects increasing Zoloft to 100mg yesterday. Psych saw this morning. R ankle cellulitis managed by wound care- bandage c/d/i (Holley Baires MD R1) Objective Vitals Vital Signs Date Time Temp Pulse Resp B/P Pulse Ox O2 Delivery O2 Flow Rate FiO2 05/30/16 05:05 94 40 05/30/16 04:00 100 05/30/16 04:00 82 05/30/16 04:00 98.2 81 15 155/74 93 05/30/16 02:00 81 05/30/16 00:42 92 40 05/30/16 00:00 98.0 85 17 165/74 92 05/30/16 00:00 100 05/30/16 00:00 81 05/29/16 22:00 97 40 05/29/16 22:00 81 05/29/16 20:26 98 40 05/29/16 20:00 82 05/29/16 20:00 97.9 82 14 142/70 97 05/29/16 20:00 100 05/29/16 18:00 81 05/29/16 16:51 93 50 05/29/16 16:00 100 05/29/16 16:00 98.2 92 22 138/67 95 05/29/16 16:00 92 05/29/16 14:01 22 05/29/16 14:00 119 05/29/16 13:00 100 98 05/29/16 12:00 87 05/29/16 12:00 35 05/29/16 12:00 98.0 87 25 135/64 93 05/29/16 12:00 35 05/29/16 11:09 93 35 05/29/16 10:00 99 05/29/16 08:27 100 35 05/29/16 08:00 93 05/29/16 08:00 98.4 93 17 167/77 88 05/29/16 08:00 35 05/29/16 07:00 18 I/O 05/29/16 05/29/16 05/29/16 05/30/16 05/30/16 05/30/16 07:00 15:00 23:00 07:00 15:00 23:00 Intake Total 586 ml 403 ml Output Total 250 ml 450 ml 1200 ml Balance 336 ml -47 ml -1200 ml Intake Oral 480 ml 300 ml IV Total 106 ml 103 ml Output Urine Total 250 ml 450 ml 1200 ml # Bowel Movements 1 2 (Holley Baires MD R1) Result Diagram: 05/29/1623 05/29/1623 Imaging Last Impressions Cervical Spine MRI 05/29/16 0000 Signed Impressions: Service Date/Time: Sunday, May 29, 2016 13:51 - CONCLUSION: Limited study but appears normal. Vishnu Woodwadr MD Brain MRI 05/29/16 0000 Signed Impressions: Service Date/Time: Sunday, May 29, 2016 13:51 - CONCLUSION: 1. Focal chronic ischemic change in the high right frontal parietal convexity stable from previous CT scan. 2. No acute intracranial abnormality. 3. Minimal nonspecific white matter changes. Vishnu Woodward MD Upper Extremity Ultrasound 05/28/16 0000 Signed Impressions: Service Date/Time: Saturday, May 28, 2016 10:16 - CONCLUSION: 1. Negative for deep venous thrombosis. Venous line noted in cephalic, subclavian and internal jugular vein. Horacio Gupta MD Chest X-Ray 05/20/16 0000 Signed Impressions: Service Date/Time: Friday, May 20, 2016 03:21 - CONCLUSION: Persistent mid and lower lung areas of consolidation or atelectasis being worse in the right. There has been mild improvement. Garcia Lujan MD Abdomen X-Ray 04/29/16 0000 Signed Impressions: Service Date/Time: Friday, April 29, 2016 07:12 - CONCLUSION: Suspect Dobbhoff tube in the distal stomach. Garcia Lujan MD Objective Remarks GEN: Morbidly obese male. (BMI 63). On mechanical ventilation via trach, awake and alert DERM: Warm and dry. Cellulitis R lateral malleolus, bandage c/d/i- no purulent discharge, but R leg warmer to touch than L leg. Nails bitten down. Yellow ecchymosis periumbilical region and R pannus. No erythema or skin breakdown Numerous skin folds 2/2 habitus. No dermatitis appreciated via limited examination of arms, chest, pannus. HEENT: Head NCAT. Tracheotomy site c/d/i CV: Distant heart sounds. RRR. Radial pulse 2+. RESP: T-piece in place. FIO2 40. Transmitted upper respiratory sounds. No wheezing GI: Abdomen soft, obese, non-distended, non-tender. +BS MSK: Lower extremity edema. No calf tenderness. Legs without SCDs or pressure ulcer boots. NEURO: Able to speak in short sentences, voice hoarse with trach. RUE: moves fingers. 0/5 Wrist extension. Shoulder shrug intact. PIV in place. Unable to lift arm from bed LUE ROM limited. Can move to chest, not mouth. Strength 2-3/5 LLE/RLE able to wiggle toes. (Holley Baires MD R1) Date of Insertion: Apr 24, 2016 (Holley Baires MD R1) A/P Assessment and Plan 31y male w chronic respiratory failure s/p tracheostomy 4 years ago and Pickwickian/hypoventilation syndrome (BMI 68) admitted from rehab facility for treatment of hypoxia and PNA with IV antibiotics and supportive care. Broad planning 05/30: Appreciate CC, Neuro, Psych, PT/OT recommendations EEG 05/02- Stage 2 sleep vs diffuse mild encephalopathy. Neuro recommendations for management appreciated. Considering EMG RUE. MRI brain (05/29)- no acute intercranial process. Chronic focal ischemic changes R parietal lobe. MRI C-spine- wnl. Trach cuff trial yesterday- to f/u results w CC. Psych to see today. Continue PT (RUE) and OT (LUE and whole body weakness). Continue wean vent, steroid taper, management chronic conditions as below Discharge Planning Days, pending weaning from mechanical ventilation with stable clinical status. Ideally, return to long-term rehab facility. If qualifies, could consider termite control representative vent facility depending on status. (Holley Baires MD R1) Attending Attestation Pt. examined and case discussed with resident physicians I have read the above note and agree with the assessment/plan as discussed with me I was involved in all medical decision making for this patient Lázaro Rogers MD (Lázaro Rogers MD) Problem List: (1) MDD (major depressive disorder) Status: Chronic Plan: Impression: Appears worsening. Affecting activities daily living- history of refusing meals, refusal to shower, and refusal of PT -Psych consult pending, appreciate recommendations -Sertraline 100 mg PO daily (started impatient, increased 05/29) (2) Weakness of extremity Status: Chronic Plan: Impression: RUE- arm/wrist extension 0/5, hand Pollock posture, mild jerking of R fingers, diffusely weak, unable to raise. RLE- 2/5. LUE- 2-3/5. LLE- 2-3/5. -Ddx: C6-C7 radiculopathy vs mixed cervical plexopathy vs deconditioning vs apathy. At baseline, able to transfer to wheelchair and feed self. - Neurology consulted, recommendations appreciated - EEG (05/29) showed diffuse mild encephalopathy vs normal Stage 2 sleep. Appreciate neurology interpretations of this exam and recommendations for future management. - Considering RUE EMG - L hemispheric event unlikely - MRI brain (05/29) No acute intracranial process. Chronic ischemic changes to R parietal lobe. - Cervical cord injury unlikely- MRI c-spine wnl (05/29) -Continue PT/OT, appreciate recommendations - Continue RUE PT- consider prophylactic use Zofran PRN and Oxycodone 7.5mg PRN pain prior to PT - Continue OT, focusing LUE with goal of feeding self. Requested nursing assistance with feeding. Monitor weight loss (3) On mechanically assisted ventilation Status: Acute Plan: Impression: Acute on chronic hypoxemic respiratory failure secondary to HCAP (resolved) and tracheostomy leak s/p exchange 05/02) - Critical care consulted, appreciate recommendations and help with management - Placed on mechanical ventilation 04/24, critical care managing weaning. FiO2 35% PEEP 8 with CPAP overnight, as tolerated. Baseline 6L NC at rehab facility. - On trach T-piece - Continue solumedrol 20mg taper until 06/03 (05/31- decrease to 10mg), Pulmicort BID, Duonebs q2h PRN, Singulair 10mg daily (4) Nausea Status: Chronic Plan: Impression: Chronic. Refusal PT 2/2 nausea (05/28). Emesis x1 (05/29). Ddx: medication side effect vs psychosomatic vs GERD vs ulcer. - Zofran 4mg IV REYES @900 + PRN q6h - Consider adding metoclopramide or erythromycin (5) HTN (hypertension) Status: Chronic Plan: Impression: B/P moderately-controlled -Cardiazem to 90mg QID (6) CHF (congestive heart failure) Status: Chronic Plan: Impression: Likely HFpEF, though unable to confirm via ECHO (04/25/16) secondary to poor imaging . EF unknown. BNP was elevated to 400, decreasing. -Continue -Bumex 1mg IV + 40 KCl BID, monitor I/Os, CC actively managing diuresis (7) Normocytic anemia Status: Chronic Plan: Impression: Secondary to chronic illness vs hypoxia. Hemoccult neg -Ferrous sulfate 300mg daily (8) Stable medical conditions Status: Chronic Plan: MORBID OBESITY WITH BMI 60-69 -see above plan for mechanical ventilation HYPOTHYROIDISM 08/2015- TSH low, free T4 grossly wnl (05/27/16) -Synthroid 50 mcg PO daily FUNGAL INFECTION -Nystatin powder and miconazole creme to skin folds GOUT -Allopurinol 300mg daily HYPERLIPIDEMIA -Atorvastatin 10mg daily and Tricor 48mg daily INSOMNIA -home Zolpidem 5mg HS PRN at pt request (9) Resolved condition, follow-up Status: Chronic Plan: Impression: resolved conditions this hospital visit - Cellulitis of Chest Wall: completed course linezolid (05/06-05/13), per ID recs - Yeast UTI: completed course Diflucan. UCx 05/01: Dionne albicans. Repeat UCx 05/05: Proteus Mirabilis - Paroxysmal Afib: EKG 05/17 sinus rhythm. Hold home Xarelto while on therapeutic Lovenox (10) HCAP (healthcare-associated pneumonia) Status: Resolved Plan: Impression: S/p numerous antibiotics. Sputum culture 04/27: resistant pseudomonas (04/27). Repeat SCx 05/10 neg. BCx no growth (05/01, 05/03, 05/04). ID consulted, now signed off. -Discuss with infection control need for continued contact and droplet precautions Abx History Zosyn 4.5gm IV q6h (04/24 - 04/29) Levaquin 750mg IV q24h (04/24-04/30) Zerbaxa 1.5 g IV q8h (04/29 - 05/07) Vancomycin IV (04/24 - 05/06) Ceftriaxone IV (05/07 - 05/25) Linezolid 600 mg PO BID (05/06 - 05/13) () Nutrition, metabolism, and development symptoms Status: Acute Plan: Fluids: PO Electrolytes: receiving 40KCl with Bumex, wnl Nutrition: regular Diet, reduced calories to 2200 (05/30), 2g sodium restricted Speech (05/28) signed off. Transition to oral feeds (05/29). Weight on admission: 218kg (480 lbs). Wt 05/30- 205k(452 lbs). Continue monitor, encourage, modify/restrict diet, as appropriate GI ppx: Famotidine 20mg BID DVT PPx: Therapeutic Lovenox 150mg SQ BID Pain: Oxycodone 7.5/325 q4 PRN RUE pain Bowels: Senna 2 tab HS REYES + Colase PRN DW: Dr. Rogers SDW: Dr Kelly (Holley Baires MD R1) Problem Qualifiers (1) MDD (major depressive disorder): Qualified Code: F33.2 - Severe episode of recurrent major depressive disorder, without psychotic features (2) HTN (hypertension): Qualified Code: I10 - Essential hypertension (3) CHF (congestive heart failure): Qualified Code: I50.9 - Acute on chronic congestive heart failure, unspecified congestive heart failure type Holley Baires MD R1 May 30, 2016 06:43 Lázaro Rogers MD May 30, 2016 16:10 (2) CHF (congestive heart failure): Qualified Code: I50.9 - Acute on chronic congestive heart failure, unspecified congestive heart failure type Holley Baires MD R1 May 30, 2016 06:43
[2016-05-30] MEDS: POTASSIUM CHLOR 40 MEQ PREMIX 100 ML IV PRN (06:57)
[2016-05-30] MEDS: RESP: BUDESONIDE 0.5 MG/2 ML NEB NEB SCH ×2 (07:51→20:38)
[2016-05-30] MEDS: MULTIVITAMINS LIQUID 5 ML UDC PO SCH (09:00)
[2016-05-30] MEDS ORDERED: ONDANSETRON HCL 4 MG/2 ML VIAL IV PUSH SCH (09:00)
[2016-05-30] MEDS: FERROUS SULFATE 300 MG /5ML UDC PO SCH (09:00)
[2016-05-30] MEDS: COLLAGENASE OINT 30 GM TUBE TOP SCH (09:00)
--- NOTE | 2016-05-30 09:16 | PD.CONS ---
Provisional Diagnosis Admission Date Apr 24, 2016 at 14:20 [place] I. Unspecified mood disorder versus adjustment disorder with depressed mood [place] II. Deferred [place] III. Chronic respiratory failure, S/P tracheostomy for 4 years, A. fib, PE, COPD, CHF , HTN, morbid obesity, low extremity weakness, pneumonia, sepsis [place] IV. Multiple medical conditions [place] V. 54 History of Present Illness Service Psychiatry Consult Requested By Critical care Reason for Consult Depression Primary Care Physician Unknown HPI The patient is a 31 years old man, domicile in a penitentiary facility , single, good family support, psychiatric history of depression, no previous psychiatric hospitalizations, no previous suicide attempts, no history of outpatient psychiatric care, started in Zoloft during this hospitalizations, extensive medical history of morbid obesity, chronic respiratory failure,S/P tracheostomy, A. fib, PE, COPD, CHF, HTN, weakness of lower extremities, pneumonia, sepsis currently on mechanically assisted ventilation, who was consulted to psychiatry due to acute depressive symptoms. Chart was extensively review, case was discussed with nurse in charge and critical care physician, patient was seen and evaluated in the ICU. On evaluation patient was found calm, cooperative, due tracheostomy and assisted mechanical ventilation the communication is limited to head nodding and signals, but mostly efficient. Patient does not report or symptoms be in any acute distress. On a scale of 1-10, at this moment patient described his mood as 8. Days before he has been 4 and 6, but today he feels much better. Patient denies sadness, denies hopelessness, denies helplessness. He does report some level of anxiety during the day, no at this moment, and reports difficulty falling and maintaining sleep at night and due to this issue feeling tired during the day. He denies suicidal or homicidal ideation. He he says that he is hopeful that everything is going to be better for him and he is going to be able to leave the hospital. He he also states that what keeps him fighting or his life is the love of his family and his spirituality. During this evaluation no confusion, no gross cognitive impairment, paranoia, delusions are observed or reported. Patient's is actually fully oriented in time person and place with a very good immediate, recent memory, concerning abstract thought, concentration, but limited executive function and language due to obvious medical impediments. He denies the use of illicit drugs, and alcohol. Review of Systems Constitutional: COMPLAINS OF: Fatigue Endocrine: DENIES: Heat/cold intolerance, Polydipsia, Polyuria, Polyphagia Eyes: DENIES: Blurred vision, Diplopia, Eye inflammation, Eye pain, Vision loss , Photosensitivity, Double Vision Ears, nose, mouth, throat: DENIES: Tinnitus, Hearing loss, Vertigo, Nasal discharge, Oral lesions, Throat pain, Hoarseness, Ear Pain, Running Nose, Epistaxis, Sinus Pain, Toothache, Odynophagia Respiratory: DENIES: Apneas, Cough, Snoring, Wheezing, Hemoptysis, Sputum production, Shortness of breath Cardiovascular: DENIES: Chest pain, Palpitations, Syncope, Dyspnea on Exertion , PND, Lower Extremity Edema, Orthopnea, Claudication Gastrointestinal: DENIES: Abdominal pain, Black stools, Bloody stools, Constipation, Diarrhea, Nausea, Vomiting, Difficulty Swallowing, Anorexia Musculoskeletal: COMPLAINS OF: Back pain, Neck pain Neurologic: DENIES: Abnormal gait, Headache, Localized weakness, Paresthesias, Seizures, Speech Problems, Tremor, Poor Balance Psychiatric: DENIES: Anxiety, Confusion, Mood changes, Depression, Hallucinations, Agitation, Suicidal Ideation, Homicidal Ideation, Delusions Past Family Social History Coded Allergies: *MDRO Multi-Drug Resistant Organism (Verified Adverse Reaction, Unknown, 05/08/16) XDR Pseudomonas aeruginosa (sputum) - 09/18/15; (sputum & wound) - 04/27/16 Reported Medications Miconazole Topical 2% Cream1 Applic TOPICAL BID PRN (yeast) Ref 0 04/28/16 Levothyroxine 50 Mcg Tab50 Mcg PO DAILY #30 TAB Ref 0 04/28/16 Hydralazine 50 Mg Tab75 Mg PO Q8HR PRN (HTN) Ref 0 Take with a meal 04/28/16 Melatonin 10 Mg Tab6 Mg PO HS PRN (SLEEP) Ref 0 04/28/16 Acetaminophen 325 Mg Qio528 Mg PO Q4H PRN (pain) 04/28/16 Prednisone 5 Mg Tab5 Mg PO DAILY Ref 0 04/28/16 Albuterol Neb 2.5 Mg/0.5 Ml Neb2.5 Mg NEB Q4HR #1 NEBULE Ref 0 Note: The Albuterol Sulfate Inhalation Solution is concentrated and must be diluted. Read complete instructions carefully before using. 04/28/16 Clarithromycin 500 Mg Smo031 Mg PO BID Ref 0 04/28/16 Zolpidem (Ambien)5 Mg Tab5 Mg PO HS PRN (INSOMNIA) Ref 0 04/28/16 Alprazolam (Xanax)0.5 Mg Tab0.5 Mg PO Q6H PRN (ANXIETY) Ref 0 04/28/16 Metoprolol Tartrate 50 Mg Tab50 Mg PO Q12HR #60 TAB Ref 0 04/28/16 Fluticasone-Salmeterol Inh (Advair Diskus Inh)250-50 Mcg/Blist Aer1 Puff INH BID #1 INHALER Ref 0 Rinse mouth after use. 04/28/16 Rivaroxaban (Xarelto)20 Mg Tab20 Mg PO daily at 1700 Ref 0 04/28/16 Loperamide 2 Mg Tab4 Mg PO Q8HR PRN (DIARRHEA) Ref 0 One tablet after each loose stool. Not to exceed 8 tablets per day. 04/28/16 Furosemide 40 Mg Tab40 Mg PO BID #60 TAB Ref 0 04/28/16 Potassium Chloride ER 10 Meq Cap10 Meq PO BID #60 CAP Ref 0 04/28/16 Montelukast 10 Mg Tab10 Mg PO DAILY #30 TAB Ref 0 04/28/16 Atorvastatin 10 Mg Tab10 Mg PO DAILY #30 TAB Ref 0 04/28/16 Fenofibrate 48 Mg Tab48 Mg PO DAILY #30 TAB Ref 0 04/28/16 Allopurinol 300 Mg Pay782 Mg PO DAILY #30 TAB Ref 0 04/28/16 Current Medications Medications (Trade) Dose Ordered Sig/Per Route Start Time Stop Time Status Last Admin (Tylenol) 650 mg Q4H PRN PO 04/24/16 15:15 05/27/16 14:07 (NS Flush) 2 ml UNSCH PRN FLUSH 04/24/16 15:15 05/13/16 21:22 (NS Flush) 2 ml BID FLUSH 04/24/16 21:00 05/29/16 21:21 (Narcan Inj) 0.4 mg UNSCH PRN IV 04/24/16 15:15 (Zyloprim) 300 mg DAILY PO 04/25/16 09:00 05/29/16 08:25 (Lipitor) 10 mg DAILY PO 04/25/16 09:00 05/29/16 08:26 (Tricor) 48 mg DAILY PO 04/25/16 09:00 05/29/16 08:26 (Synthroid) 50 mcg DAILY@06 PO 04/25/16 06:00 05/30/16 05:32 (Micatin 2% Cream) 1 applic BID TOP 04/24/16 21:00 05/30/16 00:35 (Singulair) 10 mg DAILY PO 04/25/16 09:00 05/29/16 08:26 (Xarelto) 20 mg DAILY PO 04/25/16 09:00 Hold (Symbicort 160-4.5 Inh) 2 puff BID INH 04/24/16 21:00 Hold 04/25/16 19:40 Miscellaneous Information Patient in critical care unit? Ass... Q361D XX 04/24/16 20:30 04/24/16 20:30 (Peridex 0.12% Liq) 15 ml BID@08,20 MT 04/25/16 08:00 05/29/16 20:00 Ondansetron HCl 4 mg 4 mg Q6HR PRN IV PUSH 04/25/16 21:00 05/28/16 10:27 Potassium Chloride 100 ml @ 50 mls/hr Q2H PRN IV 04/27/16 08:15 05/26/16 06:18 (KCl 20 Meq Premix Inj) 100 ml @ 50 mls/hr Q2H PRN IV 04/27/16 08:15 05/17/16 05:25 Potassium Chloride 40 meq 40 meq UNSCH PRN PO/TUBE 04/27/16 08:15 05/16/16 05:33 Potassium Chloride 100 ml @ 25 mls/hr UNSCH PRN IV 04/27/16 08:15 05/30/16 06:57 Potassium Chloride 100 ml @ 50 mls/hr Q2H PRN IV 04/27/16 08:15 05/24/16 06:48 (Magnesium Sulfate Inj/NS Inj) 100 ml @ 50 mls/hr UNSCH PRN IV 04/27/16 08:15 Magnesium Oxide 800 mg 800 mg UNSCH PRN PO 04/27/16 08:15 05/16/16 05:33 (Magnesium Sulfate Inj/NS Inj) 100 ml @ 50 mls/hr UNSCH PRN IV 04/27/16 08:15 05/28/16 09:56 Potassium Phosphate 2000 mg 2,000 mg Q4H PRN PO 04/27/16 08:15 05/20/16 12:11 (Sodium Phosphate Inj/NS 250 ml Inj) 250 ml @ 42 mls/hr UNSCH PRN IV 04/27/16 08:15 (KCl 40 Meq/30 ml Liq) 40 meq UNSCH PRN PO/TUBE 04/27/16 08:15 05/15/16 08:15 Potassium Phosphate 2000 mg 2,000 mg UNSCH PRN PO/TUBE 04/27/16 08:15 (Potassium Phosphate Inj/NS 250 ml Inj) 260 ml @ 42 mls/hr UNSCH PRN IV 04/27/16 08:15 05/13/16 23:30 (Benadryl Inj) 25 mg Q4H PRN IV PUSH 04/27/16 08:30 (Elizabeth-Colace) 1 tab BID PRN PO 04/27/16 08:30 05/30/16 21:00 (Lovenox Inj) 150 mg Q12H SQ 05/01/16 16:00 05/30/16 05:44 (Mycostatin Powder) 1 applic BID TOPICAL 05/06/16 21:00 05/30/16 00:35 (predniSONE LIQ) 20 mg Taper DAILY PO 05/10/16 09:00 06/03/16 08:59 05/29/16 09:32 (Pepcid) 20 mg Q12HR PO 05/10/16 09:00 05/29/16 21:20 (Ferrous Sulfate Liq) 300 mg DAILY PO 05/20/16 12:00 05/29/16 08:25 (Bumetanide Inj) 1 mg Q12H IV PUSH 05/20/16 22:00 05/29/16 21:20 (Santyl Oint) 1 applic DAILY TOP 05/21/16 13:00 05/29/16 08:27 (KCl) 40 meq Q12HR PO 05/22/16 23:00 05/29/16 21:21 (NS Flush) See Protocol DAILY IVF 05/24/16 09:00 05/27/16 08:29 (NS Flush) See Protocol UNSCH PRN IVF 05/23/16 11:00 (Heparin Central Flush) See Protocol DAILY IVF 05/24/16 09:00 05/29/16 08:24 (Heparin Central Flush) See Protocol UNSCH PRN IVF 05/23/16 11:00 (NS Flush) See Protocol UNSCH PRN IVF 05/23/16 11:00 (D50w (Vial) Inj) 25 ml UNSCH PRN IV PUSH 05/25/16 07:15 (Glucagon Inj) 1 mg UNSCH PRN OTHER 05/25/16 07:15 (Cardizem) 90 mg QID PO 05/28/16 09:00 05/29/16 21:21 (Ambien) 5 mg HS PRN PO 05/28/16 15:15 05/30/16 00:33 (Theragran Liq) 5 ml DAILY PO 05/29/16 10:00 (Percocet 7.5-325 Mg) 1 tab Q6H PRN PO 05/29/16 12:00 05/29/16 21:21 (Zoloft) 100 mg DAILY PO 05/30/16 09:00 (Colace Liq) 100 mg Q12HR PRN PO 05/30/16 06:15 (Elizabeth-Colace) 2 tab HS PO 05/30/16 21:00 (Zofran Inj) 4 mg DAILY IV PUSH 05/30/16 09:00 Social History Patient was born and raised in [place], he lives in penit[facility] facility, his highest level of education is high school Physical Exam Vital Signs Vital Signs Date Time Temp Pulse Resp B/P Pulse Ox O2 Delivery O2 Flow Rate FiO2 05/30/16 07:54 96 40 05/30/16 06:00 99 05/30/16 04:00 98.2 15 155/74 05/26/16 08:10 Ventilator I/O 05/29/16 05/29/16 05/29/16 07:59 15:59 23:59 Intake Total 586 ml 403 ml Output Total 250 ml 450 ml 1200 ml Balance 336 ml -47 ml -1200 ml Mental Status Examination Appearance Obese man, who appears his stated age, morbidly obese, he is calm, cooperative, Speech: Other (mumbling due to thrach) Orientation: x3 Memory: Unremarkable Thought Process: Logical Thought Content: Unremarkable Hallucination Type: None Attention and Concentration: Good Suicidal Ideation: No Previous Suicide Attempts: No Homicidal Ideation: No Previous Homicide Attempts: No Judgement: WNL Affect: Euthymic Mood: Euthymic Motor Activity: Abnormal gait-specify Assessment & Plan Problem List: (1) MDD (major depressive disorder) ICD Code: F32.9 (2) Adjustment disorder with depressed mood Assessment & Plan: On psychiatric evaluation the patient does not present any subjective or objective evidence of depressive symptoms. Patient reports his mood is 8/10, denies hopelessness, denies helplessness, denies anhedonia, denies low self-esteem, poor concentration, he denies suicidal or homicidal ideation. Patient does report periods of sadness in the past days, fatigue and problems falling and maintaining sleep. Patient seems to be future oriented, with visible protective factors such as spirituality and family support. No gross cognitive impairment observed, patient is fully oriented 3, with conserved concentration, abstraction, immediate and recent memory. However, this current mental status in which depression is not evident does not necessarily means that the patient doesn't have an underlying depression. Described and reported by staff previous of sadness and anhedonia could be secondary to depression, but is also highly probable, taking in account multiple medical conditions, the patient might had hypoactive delirium or could be adjusting to his several medical abuse stressors. Agree with the sertraline 100 mg daily to treat mood, we'll add Seroquel 100 mg a psycho adjuvant for mood , but also to help with insomnia. Extensive support, motivation and psychoeducation was provided to the patient. Consult appreciated. We'll follow -up. ICD Code: F43.21 Assessment & Plan Estimated LOS: Porter Lima MD May 30, 2016 09:16
[2016-05-30] MEDS: ALLOPURINOL 300 MG TAB PO SCH (09:34)
[2016-05-30] MEDS: SERTRALINE HCL 100 MG TAB PO SCH (09:34)
[2016-05-30] MEDS: FAMOTIDINE 20 MG TAB PO SCH ×2 (09:34→20:09)
[2016-05-30] MEDS: BUMETANIDE INJ 1 MG/4 ML VIAL IV PUSH SCH ×2 (09:34→20:10)
[2016-05-30] MEDS: ATORVASTATIN 10 MG TAB PO SCH (09:34)
[2016-05-30] MEDS: MONTELUKAST SODIUM 10 MG TAB PO SCH (09:34)
[2016-05-30] MEDS: POTASSIUM CHLORIDE 20 MEQ CONTROLLED RELEASE TAB PO SCH ×2 (09:35→20:09)
[2016-05-30] MEDS: FENOFIBRATE 48 MG TAB PO SCH (09:35)
[2016-05-30] MEDS: predniSONE 5 MG/5 ML CUP PO SCH (09:35)
[2016-05-30] MEDS: DILTIAZEM HCL 90 MG TAB PO SCH ×4 (09:35→20:09)
[2016-05-30] MEDS: SODIUM CHLORIDE 0.9% FLUSH 5 ML FLUSH FLUSH SCH ×2 (09:36→20:11)
--- NOTE | 2016-05-30 11:13 | HHI.CCPN ---
Subjective Remarks/Hospital Course 31 year old morbidly obese (BMI 68) male with chronic respiratory failure s/p tracheostomy 4 years ago, atrial fibrillation and pulmonary embolism on Xarelto , COPD, CHF and h/o HTN. He presented from [facility] with low oxygen saturation apparently his oxygen saturation was 82% on RA. He was placed back on 6L of oxygen via his trach mask and given a breathing treatment, initially improved however he started drifting back to low 80s again. Chest x-ray showed bibasilar infiltrates and pulmonary edema. Patient was admitted to the [facility] and was started on IV steroids IV vancomycin and Zosyn and Levaquin for healthcare associated pneumonia. After starting ACV, patient was more awake but there was a significant amount of air leak around his tracheostomy. Patient has had a Shiley 6.0 Proximal XLT, but the pilot steam yacht balloon had been cut off. 05/02 the patient became acutely hypoxemic with a large cuff leak, underwent emergency trach exchange at bedside by Dr. Macias. FiO2 65% PEEP 14 05/13 Patient is on ventilator via trach, on Fentanyl infusion however he is awake and alert. On PRVC with FIO2 40%. Afebrile. 05/14 No acute events overnight. Tmax 99.8. Patient is awake, alert on ventilator via trach still requiring increase O2. On PRVC with PEEP: 10 and FIO2 70%. 05/15 patient acutely desaturated after he was found. Saturation went down to 70% on 100% oxygen. Bag and mask ventilation carried out, with eventual improvement on oxygen saturation to 85%. Patient was placed on PC/AC mode of ventilation, with PEEP of 15 and instructed to pressure of 30. Eventually oxygen saturation improved to 95%. Lasix him today as the chest x-ray from today shows increasing bilateral infiltrate and pulmonary edema. Also sputum culture will be sent 05/16 Patient is on Fentanyl and Diprivan infusion but awake and alert. Afebrile. On PC/AC with PEEP:15, IP: 22, IT:1.3 and FIO2 50% 05/17 Patient is off Diprivan and remains on Fentanyl infusion for sedation. On PC/AC with PEEP: down 10 and FIO2 40%. Afebrile. 05/18 Patient remains on ventilator via trach on PC/AC with PEEP:12, FIO2 40%, IP:22, IT:1.0. On Fentanyl infusion 05/19 No acute events overnight. On Fentanyl infusion but awake and alert. Afebrile. 05/20 Tolerating C Pap 17/12 FIO2 40, sats 98%. RSBI in 20s, appears can be weaned further. Afebrile. Speech therapy evaluated and ok for regular diet. Starting with full liquid. 05/21 Will wean PSV to 15/10. Tolerated full liquids, will advance to regular diet per speech recs. Subjective: 05/22 On PSV 15/10 FIO2 40 with sats 92%. Smiling today. Glad to be eating regular food again. 05/23 No acute events overnight. Remains on CPAP with PS 15, PEEP:10 and FIO2 40 %. Afebrile. Off Fentanyl drip. Afebrile. Awake and alert. 05/24 Patient is on CPAP 06/06 with 40% FIO2. Afebrile. Awake and alert, on no sedation. 05/25 No acute events overnight. Patient was placed back on PC/AC overnight. Tolerated CPAP trials during day yesterday. Awake and alert. On no drips. Afebrile. 05/26 Afebrile. Tmax 98.6. Today the patient complained of nausea requiring Zofran. The patient has a lack of an appetite, with noted hypoglycemia early this a.m. blood glucose level 69. Patient tolerating CPAP well greater than 12 hours in the last 24 hours. 05/27 The patient tolerated CPAP for over 36 hours, O2 sat a knee 94% on FIO2 40 %. The patient had an increase in appetite. The patient continues on full liquid diet. 05/28 The patient declined physical therapy treatment, yesterday and also overnight declined to be moved by nursing staff. The patient refused dinner last evening, of note patient was reevaluated by speech therapy and can consume a heart healthy diet with thin liquids. The patient continues on physical therapy for strengthening exercises of all extremities specifically noted right upper extremity continues to be weak with gross fibrillations noted in hand and forearm. 05/29 Afebrile. No change in right upper extremity weakness. The patient was seen by neurology yesterday plan for MRI today if possible in hospital MRI, and EMG studies. No complaints overnight. Patient continues to refuse to have activities performed, movement in bed. The patient appears to be depressed, psychiatry consulted. 05/30: Patient alert awake on see Pap. Following commands. Psych agrees the patient is depressed. MRI brain no acute findings Objective Vital Signs Date Time Temp Pulse Resp B/P Pulse Ox O2 Delivery O2 Flow Rate FiO2 05/30/16 07:54 96 40 05/30/16 06:00 99 05/30/16 04:00 98.2 15 155/74 05/26/16 08:10 Ventilator Intake and Output 05/29/16 05/29/16 05/30/16 08:00 16:00 00:00 Intake Total 586 ml 403 ml Output Total 250 ml 450 ml 1200 ml Balance 336 ml -47 ml -1200 ml Result Diagram: 05/30/16 0525 05/30/16 0525 Other Results Microbiology Date/Time Procedure Status Source Growth 05/27/16 16:15 Stool Occult Blood (KAYLA) - Final Complete Stool Stool HEMOCCULT NEGATIVE Imaging Last Impressions Chest X-Ray 05/20/16 0000 Signed Impressions: Service Date/Time: Friday, May 20, 2016 03:21 - CONCLUSION: Persistent mid and lower lung areas of consolidation or atelectasis being worse in the right. There has been mild improvement. Garcia Lujan MD Upper Extremity Ultrasound 05/02/16 0000 Signed Impressions: Service Date/Time: April 20:51 - CONCLUSION: No DVT. Garcia Lujan MD Abdomen X-Ray 04/29/16 0000 Signed Impressions: Service Date/Time: Friday, April 29, 2016 07:12 - CONCLUSION: Suspect Dobbhoff tube in the distal stomach. Garcia Lujan MD Objective Remarks GENERAL: Patient is 31yo on ventilator via trach, awake and follows commands. Super Morbidly obese. Communicating appropriately SKIN: Warm and dry. HEAD: Normocephalic. EYES: No scleral icterus. No injection or drainage. NECK: Supple, trachea midline. Shiley 6.0 Proximal XLT, (new trach placed ) CARDIOVASCULAR:Tachycardic without murmurs, gallops, or rubs. RESPIRATORY: Breath sounds equal bilaterally. Distant secondary to habitus . On CPAP GASTROINTESTINAL: Abdomen soft, obese, non-tender, nondistended. Multiple noted areas of ecchymotic bruising secondary to subcutaneous injections MUSCULOSKELETAL: No cyanosis, or edema. Pedal edema. Wound on lateral aspect of right lower leg above lateral malleolus , dressing C/D/I. right upper extremity motor strength, inability to perform flexion, or pronation, hand doper strength 2/5. Neuro: Awake and alert. Moves all extremities with focal deficit right upper extremity. Urinary Catheter: Yes Assessment to: Continue Date of Insertion: Apr 24, 2016 A/P Assessment and Plan ASSESSMENT Acute hypercapnic and hypoxemic respiratory failure Acute worsening of hypoxia due to lung de-recruitment 05/15/16 Healthcare associated pneumonia MDR Pseudomonas Sepsis CHF exacerbation CO2 narcosis Tracheostomy pilot steam yacht balloon damage -status post exchange with new Shiley 6.0 Proximal XLT 05/02/16 Chronic Respiratory Failure s/p Tracheostomy 4 years ago (Shiley 6.0 Proximal XLT) COPD/obesity hypoventilation syndrome Morbid Obesity BMI 67 History of pulmonary embolism 4 years ago Chronic atrial fibrillation Anxiety CHF (Echo 2013 EF 40-45%; ECHO 08/2015 showing a grossly normal systolic function) Hypertension Hypothyroidism PLAN NEURO: CO2 narcosis - resolved Pain Anxiety Depression Critical care polyneuropathy Unilateral right upper extremity weakness 05/21-possibly secondary to nerve compression, C6, C7 (brachial plexus) -On morphine 4 mg IV every 3 hours as needed for breakthrough pain. -Continue Zoloft 50mg daily -Noted right upper extremity absence of triceps reflex, diminished sensation/ numbness in C6-C7 dermatome level both anterior and posterior, inability for pronation, handgrip strength 2/5, lack of wrist extension/flexion. C6, C7 myotome pattern of muscle weakness.Positive shoulder abduction/adduction. -Continued PT daily, with strengthening exercise (encouraged patient to participate) patient counseled on the importance. -Neurology Dr. Cheek-MRI brain C spine no acute findings. EMG study, right upper extremity -Venous Doppler RUE 05/28-negative for DVT -Psychiatric consultation-agrees patient is depressed, Adding Seroquel RESP: Acute hypercapnic and hypoxemic respiratory failure Acute lung derecruitment 05/15 Healthcare associated pneumonia Tracheostomy pilot steam yacht balloon damage (Shiley 6.0 Proximal XLT) s/p new trach placement 05/02 Chronic Respiratory Failure s/p Tracheostomy 4 years ago COPD/obesity hypoventilation syndrome History of pulmonary embolism 4 years ago Leukocytosis-resolved Pulmonary edema - Continue with vent support keep sat >92%. Currently on CPAP, attempt TP/TC daily - PSV 06/06 40% and continue weaning as tolerated. Continue FIO2 .35% - s/p Bronchoscopy 05/11 -follow up on BAL results-negative - DuoNeb every 6 hours scheduled, q 2 prn. - Pulmicort BID (home med), - Continue Singulair 10 mg po daily - Therapeutic Lovenox 150 mg every 12 hours, consider transition to Xarelto ( home med) upon planned discharge CV: CHF exacerbation Pulmonary edema Paroxysmal atrial fibrillation (chronic) Hyperlipidemia -Monitor HR and BP keep MAP>65mmHg -Systolic BP [id number], continue to monitor trend possible escalation of antihypertensive meds -on Cardizem 60mg QID -Continue Lipitor 10 g by mouth daily. -Continue TriCor 40 mg by mouth daily -Therapeutic Lovenox 150 mg twice a day GI: Super morbid obesity with BMI of 63 -Regular diet ,thin liquids per speech recs. -On Pepcid 20mg BID -Poor appetite, refusing to eat -Multivitamin to medication regimen -Consider dietary supplementation FEN/RENAL: Hypokalemia - Monitor renal function , I/O. - Electrolytes replacement per protocol. - Bumex 1 mg IV q12 with KCL 40 q12 ID: Healthcare associated pneumonia Sepsis MDRO Cellulitis right arm-resolved Leukocytosis-resolved - Rocephin (05/12- 05/25) -Urine cx: Proteus Mirabilis 05/05 -Sputum cx: Providencia 05/05- resolved -Wound cx: 05/13 Proteus, Pseudomonas, Group D Enterococcus - Wound culture Pseudomonas MDR 04/27 - Sputum culture-Pseudomonas MDR- 04/27 - Bronchoscopy and re-culture 05/10 follow up on BAL results-neg to date - Follow up on sputum cx from 05/15- NGTD HEME: History of PE on chronic anticoagulation with Xarelto Anemia, iron deficiency and anemia of critical illness. -Monitor CBC, -Xarelto for PE 4 yrs ago. -Xarelto.held, On therapeutic Lovenox 150 mg twice a day, will continue -Ferrous sulfate 300 mg/q day ENDO: Hypothyroidism -On SSI (Low scale) -Continue levothyroxine 50 mcg po daily -Free T4 1.52 PROPH: -Bilateral lower extremity SCDs. Lovenox DVT therapeutic dose. GI prophylaxis- Pepcid 20mg BID LINES: - PICC line RUE- No DVT on US 05/02 Out of bed with assistance. PT out of bed with vent. OT. Discussed with patient and RN at bedside. Level 3 Jaquan Zelaya MD May 30, 2016 11:13
[2016-05-30] MEDS ORDERED: PROCHLORPERAZINE MALEATE 5 MG TAB PO PRN (14:45)
--- NOTE | 2016-05-30 17:59 | PD.CONS ---
[facility] Service Rehabilitation Medicine Consult Requested By Aravind Ritchie MD Reason for Consult Comprehensive rehabilitation evaluation. Primary Care Physician Unknown History of Present Illness Wilfrido Fortune is a 31 year old right hand dominant male admitted to [facility] 04/24/16 with decreased O2 sat 82% on RA. He found to have HCAP and required ventilation. Trach was exchanged. Course was complicated by sepsis, CHF exacerbation, right ankle cellulitis and right UE weakness. MRI of brain showed focal chronic ischemic changes high right frontal parietal convexity but no acute intracranial abnormality. MRI of C-spine was limited but appeared normal. Right UE ultrasound was negative for DVT. He reports pain in the right shoulder. 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 He has numbness and tingling in the right forearm and dorsum of the right hand. Review of Systems Constitutional: COMPLAINS OF: Fatigue Eyes: DENIES: Diplopia Ears, nose, mouth, throat: DENIES: Hearing loss Respiratory: COMPLAINS OF: Shortness of breath Cardiovascular: DENIES: Chest pain Gastrointestinal: DENIES: Abdominal pain Neurologic: COMPLAINS OF: Localized weakness, Paresthesias, DENIES: Headache Psychiatric: DENIES: Confusion Past Family Social History Allergies: Coded Allergies: *MDRO Multi-Drug Resistant Organism (Verified Adverse Reaction, Unknown, 05/08/16) XDR Pseudomonas aeruginosa (sputum) - 09/18/15; (sputum & wound) - 04/27/16 Past Medical History Chronic respiratory failure S/P trach 2011 Morbid obesity Atrial fibrillation PE CHF with EF 40-45% HTN anxiety hypothyroidism Past Surgical History Tonsillectomy Trach Current Medications Current Medications Medications (Trade) Dose Ordered Sig/Per Route Start Time Stop Time Status Last Admin (Tylenol) 650 mg Q4H PRN PO 04/24/16 15:15 05/27/16 14:07 (NS Flush) 2 ml UNSCH PRN FLUSH 04/24/16 15:15 05/13/16 21:22 (NS Flush) 2 ml BID FLUSH 04/24/16 21:00 05/30/16 09:36 (Narcan Inj) 0.4 mg UNSCH PRN IV 04/24/16 15:15 (Zyloprim) 300 mg DAILY PO 04/25/16 09:00 05/30/16 09:34 (Lipitor) 10 mg DAILY PO 04/25/16 09:00 05/30/16 09:34 (Tricor) 48 mg DAILY PO 04/25/16 09:00 05/30/16 09:35 (Synthroid) 50 mcg DAILY@06 PO 04/25/16 06:00 05/30/16 05:32 (Micatin 2% Cream) 1 applic BID TOP 04/24/16 21:00 05/30/16 09:00 (Singulair) 10 mg DAILY PO 04/25/16 09:00 05/30/16 09:34 (Xarelto) 20 mg DAILY PO 04/25/16 09:00 Hold (Symbicort 160-4.5 Inh) 2 puff BID INH 04/24/16 21:00 Hold 04/25/16 19:40 Miscellaneous Information Patient in critical care unit? Ass... Q361D XX 04/24/16 20:30 04/24/16 20:30 (Peridex 0.12% Liq) 15 ml BID@08,20 MT 04/25/16 08:00 05/29/16 20:00 Ondansetron HCl 4 mg 4 mg Q6HR PRN IV PUSH 04/25/16 21:00 05/28/16 10:27 Potassium Chloride 100 ml @ 50 mls/hr Q2H PRN IV 04/27/16 08:15 05/26/16 06:18 (KCl 20 Meq Premix Inj) 100 ml @ 50 mls/hr Q2H PRN IV 04/27/16 08:15 05/17/16 05:25 Potassium Chloride 40 meq 40 meq UNSCH PRN PO/TUBE 04/27/16 08:15 05/16/16 05:33 Potassium Chloride 100 ml @ 25 mls/hr UNSCH PRN IV 04/27/16 08:15 05/30/16 06:57 Potassium Chloride 100 ml @ 50 mls/hr Q2H PRN IV 04/27/16 08:15 05/24/16 06:48 (Magnesium Sulfate Inj/NS Inj) 100 ml @ 50 mls/hr UNSCH PRN IV 04/27/16 08:15 Magnesium Oxide 800 mg 800 mg UNSCH PRN PO 04/27/16 08:15 05/16/16 05:33 (Magnesium Sulfate Inj/NS Inj) 100 ml @ 50 mls/hr UNSCH PRN IV 04/27/16 08:15 05/28/16 09:56 Potassium Phosphate 2000 mg 2,000 mg Q4H PRN PO 04/27/16 08:15 05/20/16 12:11 (Sodium Phosphate Inj/NS 250 ml Inj) 250 ml @ 42 mls/hr UNSCH PRN IV 04/27/16 08:15 (KCl 40 Meq/30 ml Liq) 40 meq UNSCH PRN PO/TUBE 04/27/16 08:15 05/15/16 08:15 Potassium Phosphate 2000 mg 2,000 mg UNSCH PRN PO/TUBE 04/27/16 08:15 (Potassium Phosphate Inj/NS 250 ml Inj) 260 ml @ 42 mls/hr UNSCH PRN IV 04/27/16 08:15 05/13/16 23:30 (Benadryl Inj) 25 mg Q4H PRN IV PUSH 04/27/16 08:30 (Elizabeth-Colace) 1 tab BID PRN PO 04/27/16 08:30 05/30/16 21:00 (Lovenox Inj) 150 mg Q12H SQ 05/01/16 16:00 05/30/16 05:44 (Mycostatin Powder) 1 applic BID TOPICAL 05/06/16 21:00 05/30/16 09:00 (predniSONE LIQ) 10 mg Taper DAILY PO 05/10/16 09:00 06/03/16 08:59 05/30/16 09:35 (Pepcid) 20 mg Q12HR PO 05/10/16 09:00 05/30/16 09:34 (Ferrous Sulfate Liq) 300 mg DAILY PO 05/20/16 12:00 05/29/16 08:25 (Bumetanide Inj) 1 mg Q12H IV PUSH 05/20/16 22:00 05/30/16 09:34 (Santyl Oint) 1 applic DAILY TOP 05/21/16 13:00 05/30/16 09:00 (KCl) 40 meq Q12HR PO 05/22/16 23:00 05/30/16 09:35 (NS Flush) See Protocol DAILY IVF 05/24/16 09:00 05/30/16 09:36 (NS Flush) See Protocol UNSCH PRN IVF 05/23/16 11:00 (Heparin Central Flush) See Protocol DAILY IVF 05/24/16 09:00 05/29/16 08:24 (Heparin Central Flush) See Protocol UNSCH PRN IVF 05/23/16 11:00 (NS Flush) See Protocol UNSCH PRN IVF 05/23/16 11:00 (D50w (Vial) Inj) 25 ml UNSCH PRN IV PUSH 05/25/16 07:15 (Glucagon Inj) 1 mg UNSCH PRN OTHER 05/25/16 07:15 (Cardizem) 90 mg QID PO 05/28/16 09:00 05/30/16 09:35 (Ambien) 5 mg HS PRN PO 05/28/16 15:15 05/30/16 00:33 (Theragran Liq) 5 ml DAILY PO 05/29/16 10:00 (Percocet 7.5-325 Mg) 1 tab Q6H PRN PO 05/29/16 12:00 05/29/16 21:21 (Zoloft) 100 mg DAILY PO 05/30/16 09:00 05/30/16 09:34 (Colace Liq) 100 mg Q12HR PRN PO 05/30/16 06:15 (Elizabeth-Colace) 2 tab HS PO 05/30/16 21:00 (SEROquel) 100 mg HS PO 05/30/16 21:00 (Compazine) 5 mg Q8HR PRN PO 05/30/16 14:45 Family History No FH of DM or CAD Social History Prior to admission resided in SNF. Exam I&O / VS 05/29/16 05/29/16 05/30/16 15:00 23:00 07:00 Intake Total 403 ml 100 ml Output Total 450 ml 1200 ml 300 ml Balance -47 ml -1200 ml -200 ml Intake Oral 300 ml IV Total 103 ml 100 ml Output Urine Total 450 ml 1200 ml 300 ml # Bowel Movements 2 Vital Signs Date Time Temp Pulse Resp B/P Pulse Ox O2 Delivery O2 Flow Rate FiO2 05/30/16 16:40 97 40 05/30/16 16:00 98.6 92 22 147/73 93 05/30/16 16:00 40 05/30/16 12:00 40 05/30/16 12:00 98.0 92 20 163/78 94 05/30/16 11:48 92 40 05/30/16 08:00 94 05/30/16 08:00 40 05/30/16 08:00 98.2 94 21 169/79 95 05/30/16 07:54 96 40 05/30/16 06:00 99 05/30/16 05:05 94 40 05/30/16 04:00 100 05/30/16 04:00 82 05/30/16 04:00 98.2 81 15 155/74 93 05/30/16 02:00 81 05/30/16 00:42 92 40 05/30/16 00:00 98.0 85 17 165/74 92 05/30/16 00:00 100 05/30/16 00:00 81 05/29/16 22:00 97 40 05/29/16 22:00 81 05/29/16 20:26 98 40 05/29/16 20:00 82 05/29/16 20:00 97.9 82 14 142/70 97 05/29/16 20:00 100 05/29/16 18:00 81 General: No acute distress Psychiatric: Cooperative, Appropriate mood & affect Orientation: oriented to Self, oriented to Situation Neurologic: Speech (Mouthing words appropriately) Motor: Right Upper Extremity (Shoulder ROM painful; elbow flexion 3-/5;elbow extension 4/5; wrist flexion/extension 1/5; 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 Right UE weakness with brain MRI negative and C-spine MRI grossly normal. Distribution of weakness/sensory loss appears to be consistent with plexopathy versus individual peripheral nerve injury 2. Additional medical surgical issues as above Plan 1. PT mobilizing to sitting edge of bed 2. OT addressing ADL'S and dependent 3. Will attempt EMG in am if able to bring equipment into isolation 4. Will follow while hospitalized and if appropriate at discharge Sylvia Hernandez MD May 30, 2016 17:59
[2016-05-30] MEDS: CHLORHEXIDINE 0.12% (ORAL KIT) 15 ML CUP MT SCH (20:00)
[2016-05-30] MEDS: QUEtiapine FUMARATE 100 MG TAB PO SCH (20:09)
[2016-05-30] MEDS: DOCUSATE SODIUM 50 MG/SENNA 8.6 MG TAB PO SCH (20:09)
[2016-05-31] VITALS (19 sets, daily range): BP systolic 115–145; BP diastolic 58–66; PULSE 94–119; RESP 20–28; TEMP 98–100; O2SAT 90–98
[2016-05-31] MEDS: ENOXAPARIN SODIUM 150 MG/ML SYRINGE SQ SCH ×2 (04:00→17:46)
[2016-05-31] MEDS: LEVOTHYROXINE SODIUM 50 MCG TAB PO SCH (04:26)
[2016-05-31] MEDS: ONDANSETRON HCL 4 MG/2 ML VIAL IV PUSH PRN (04:37)
[2016-05-31 05:19] LABS: BICARBONATE 40.6 MEQ/L (21.0-32.0); POTASSIUM 3.6 MEQ/L (3.5-5.1)
[2016-05-31] MEDS: RESP: BUDESONIDE 0.5 MG/2 ML NEB NEB SCH ×2 (06:48→19:32)
[2016-05-31] MEDS: RESP: ALBUTEROL 2.5 MG/IPRATROPIUM 0.5 MG NEB (PRN) NEB (06:48)
[2016-05-31] MEDS: CHLORHEXIDINE 0.12% (ORAL KIT) 15 ML CUP MT SCH ×2 (08:00→22:12)
[2016-05-31] MEDS: SERTRALINE HCL 100 MG TAB PO SCH (09:00)
[2016-05-31] MEDS: DILTIAZEM HCL 90 MG TAB PO SCH ×4 (09:00→22:11)
[2016-05-31] MEDS: FERROUS SULFATE 300 MG /5ML UDC PO SCH (09:00)
[2016-05-31] MEDS: POTASSIUM CHLORIDE 20 MEQ CONTROLLED RELEASE TAB PO SCH ×2 (09:00→22:46)
[2016-05-31] MEDS: ATORVASTATIN 10 MG TAB PO SCH (09:00)
[2016-05-31] MEDS: FENOFIBRATE 48 MG TAB PO SCH (09:00)
[2016-05-31] MEDS: COLLAGENASE OINT 30 GM TUBE TOP SCH (09:00)
[2016-05-31] MEDS: MICONAZOLE NITRATE 2% CREAM 15 GM TOP SCH ×2 (09:00→22:11)
[2016-05-31] MEDS: MONTELUKAST SODIUM 10 MG TAB PO SCH (09:00)
[2016-05-31] MEDS: ALLOPURINOL 300 MG TAB PO SCH (09:00)
[2016-05-31] MEDS: NYSTATIN 100,000 U/GM PWD 15 GM BTL TOPICAL SCH ×2 (09:00→22:12)
[2016-05-31] MEDS: predniSONE 5 MG/5 ML CUP PO SCH (09:00)
[2016-05-31] MEDS: FAMOTIDINE 20 MG TAB PO SCH ×2 (09:00→22:11)
[2016-05-31] MEDS: MULTIVITAMINS LIQUID 5 ML UDC PO SCH (09:00)
--- NOTE | 2016-05-31 09:31 | HHI.PR ---
Review/Management Diagnosis/Plan: (1) Weakness of right upper extremity Plan: probable rt brachial plexopathy probable underlying critical illness neuropathy recs mri's reviewed- no acute stroke or cervical cord lesion consult rehab md for rt ue emg, tx and outpatient f/u for therapy p.t/o.t. leland be available as needed (2) Atrial fibrillation (3) CHF (congestive heart failure) Subjective Subjective Comments No acute events reported Active Medications Current Medications Medications (Trade) Dose Ordered Sig/Per Route Start Time Stop Time Status Last Admin (Tylenol) 650 mg Q4H PRN PO 04/24/16 15:15 05/27/16 14:07 (NS Flush) 2 ml UNSCH PRN FLUSH 04/24/16 15:15 05/13/16 21:22 (NS Flush) 2 ml BID FLUSH 04/24/16 21:00 05/30/16 20:11 (Narcan Inj) 0.4 mg UNSCH PRN IV 04/24/16 15:15 (Zyloprim) 300 mg DAILY PO 04/25/16 09:00 05/30/16 09:34 (Lipitor) 10 mg DAILY PO 04/25/16 09:00 05/30/16 09:34 (Tricor) 48 mg DAILY PO 04/25/16 09:00 05/30/16 09:35 (Synthroid) 50 mcg DAILY@06 PO 04/25/16 06:00 05/31/16 04:26 (Micatin 2% Cream) 1 applic BID TOP 04/24/16 21:00 05/30/16 20:11 (Singulair) 10 mg DAILY PO 04/25/16 09:00 05/30/16 09:34 (Xarelto) 20 mg DAILY PO 04/25/16 09:00 Hold (Symbicort 160-4.5 Inh) 2 puff BID INH 04/24/16 21:00 Hold 04/25/16 19:40 Miscellaneous Information Patient in critical care unit? Ass... [id number] XX 04/24/16 20:30 04/24/16 20:30 (Peridex 0.12% Liq) 15 ml BID@08,20 MT 04/25/16 08:00 05/29/16 20:00 Ondansetron HCl 4 mg 4 mg Q6HR PRN IV PUSH 04/25/16 21:00 05/31/16 04:37 Potassium Chloride 100 ml @ 50 mls/hr Q2H PRN IV 04/27/16 08:15 05/26/16 06:18 (KCl 20 Meq Premix Inj) 100 ml @ 50 mls/hr Q2H PRN IV 04/27/16 08:15 05/17/16 05:25 Potassium Chloride 40 meq 40 meq UNSCH PRN PO/TUBE 04/27/16 08:15 05/16/16 05:33 Potassium Chloride 100 ml @ 25 mls/hr UNSCH PRN IV 04/27/16 08:15 05/30/16 06:57 Potassium Chloride 100 ml @ 50 mls/hr Q2H PRN IV 04/27/16 08:15 05/24/16 06:48 (Magnesium Sulfate Inj/NS Inj) 100 ml @ 50 mls/hr UNSCH PRN IV 04/27/16 08:15 Magnesium Oxide 800 mg 800 mg UNSCH PRN PO 04/27/16 08:15 05/16/16 05:33 (Magnesium Sulfate Inj/NS Inj) 100 ml @ 50 mls/hr UNSCH PRN IV 04/27/16 08:15 05/28/16 09:56 Potassium Phosphate 2000 mg 2,000 mg Q4H PRN PO 04/27/16 08:15 05/20/16 12:11 (Sodium Phosphate Inj/NS 250 ml Inj) 250 ml @ 42 mls/hr UNSCH PRN IV 04/27/16 08:15 (KCl 40 Meq/30 ml Liq) 40 meq UNSCH PRN PO/TUBE 04/27/16 08:15 05/15/16 08:15 Potassium Phosphate 2000 mg 2,000 mg UNSCH PRN PO/TUBE 04/27/16 08:15 (Potassium Phosphate Inj/NS 250 ml Inj) 260 ml @ 42 mls/hr UNSCH PRN IV 04/27/16 08:15 05/13/16 23:30 (Benadryl Inj) 25 mg Q4H PRN IV PUSH 04/27/16 08:30 (Lovenox Inj) 150 mg Q12H SQ 05/01/16 16:00 05/31/16 04:00 (Mycostatin Powder) 1 applic BID TOPICAL 05/06/16 21:00 05/30/16 20:10 (predniSONE LIQ) 10 mg Taper DAILY PO 05/10/16 09:00 06/03/16 08:59 05/30/16 09:35 (Pepcid) 20 mg Q12HR PO 05/10/16 09:00 05/30/16 20:09 (Ferrous Sulfate Liq) 300 mg DAILY PO 05/20/16 12:00 05/29/16 08:25 (Bumetanide Inj) 1 mg Q12H IV PUSH 05/20/16 22:00 05/30/16 20:10 (Santyl Oint) 1 applic DAILY TOP 05/21/16 13:00 05/30/16 09:00 (KCl) 40 meq Q12HR PO 05/22/16 23:00 05/30/16 20:09 (NS Flush) See Protocol DAILY IVF 05/24/16 09:00 05/30/16 09:36 (NS Flush) See Protocol UNSCH PRN IVF 05/23/16 11:00 (Heparin Central Flush) See Protocol DAILY IVF 05/24/16 09:00 05/29/16 08:24 (Heparin Central Flush) See Protocol UNSCH PRN IVF 05/23/16 11:00 (NS Flush) See Protocol UNSCH PRN IVF 05/23/16 11:00 (D50w (Vial) Inj) 25 ml UNSCH PRN IV PUSH 05/25/16 07:15 (Glucagon Inj) 1 mg UNSCH PRN OTHER 05/25/16 07:15 (Cardizem) 90 mg QID PO 05/28/16 09:00 05/30/16 20:09 (Ambien) 5 mg HS PRN PO 05/28/16 15:15 05/30/16 20:09 (Theragran Liq) 5 ml DAILY PO 05/29/16 10:00 (Percocet 7.5-325 Mg) 1 tab Q6H PRN PO 05/29/16 12:00 05/29/16 21:21 (Zoloft) 100 mg DAILY PO 05/30/16 09:00 05/30/16 09:34 (Colace Liq) 100 mg Q12HR PRN PO 05/30/16 06:15 (Elizabeth-Colace) 2 tab HS PO 05/30/16 21:00 05/30/16 20:09 (SEROquel) 100 mg HS PO 05/30/16 21:00 05/30/16 20:09 (Compazine) 5 mg Q8HR PRN PO 05/30/16 14:45 Allergies Allergies Coded Allergies *MDRO Multi-Drug Resistant Organism (Verified Adverse Reaction, Unknown, ) Review of Systems All other ROS: ROS reviewed as documented in chart Exam I&O / VS 05/30/16 05/30/16 05/31/16 15:00 23:00 07:00 Intake Total 608 ml 58 ml Output Total 1000 ml 1800 ml Balance -392 ml -1742 ml Intake Oral 480 ml IV Total 128 ml 58 ml Output Urine Total 1000 ml 1800 ml # Bowel Movements 1 Vital Signs Date Time Temp Pulse Resp B/P Pulse Ox O2 Delivery O2 Flow Rate FiO2 05/31/16 07:30 92 50 05/31/16 06:40 98 50 05/31/16 06:00 117 05/31/16 04:05 95 40 05/31/16 04:00 98.5 108 23 135/66 94 05/31/16 04:00 40 05/31/16 04:00 108 05/31/16 02:00 110 05/31/16 00:59 92 40 05/31/16 00:00 40 05/31/16 00:00 110 05/31/16 00:00 98.3 110 28 145/66 90 05/30/16 23:04 91 40 05/30/16 22:00 107 05/30/16 20:40 100 40 05/30/16 20:00 40 05/30/16 20:00 103 05/30/16 20:00 98.5 99 28 176/79 90 05/30/16 16:40 97 40 05/30/16 16:00 98.6 92 22 147/73 93 05/30/16 16:00 40 05/30/16 12:00 40 05/30/16 12:00 98.0 92 20 163/78 94 05/30/16 11:48 92 40 Exam Comments alert, trach, follows, eomi, face sym, morbidly obese, rt ue: mild shoulder shrug, diffusely weak unable to raise, arm/wrist extension 0/5, able to slightly extend rt thumb and index but not rest, hand in benedict posture, gross touch intact, unable to raise rt leg, left leg 2-3/5, left arm 3/5, depressed msr, no clonus, planter flexor Objective Micro and Labs Laboratory Tests Test 05/31/16 04:15 Sodium Level 137 Potassium Level 3.6 Chloride Level 91 Carbon Dioxide Level 40.6 Anion Gap 5 Blood Urea Nitrogen 5 Creatinine 0.27 Estimat Glomerular Filtration 392 Rate Random Glucose 93 Calcium Level 8.8 Date/Time Procedure Status Source Growth 05/27/16 16:15 Stool Occult Blood (KAYLA) - Final Complete Stool Stool HEMOCCULT NEGATIVE Problem Qualifiers (1) Atrial fibrillation: Qualified Code: I48.2 - Chronic atrial fibrillation (2) CHF (congestive heart failure): Qualified Code: I50.9 - Acute on chronic congestive heart failure, unspecified congestive heart failure type Aravind Ritchie MD May 31, 2016 09:30
[2016-05-31] MEDS: BUMETANIDE INJ 1 MG/4 ML VIAL IV PUSH SCH ×2 (10:00→22:10)
--- NOTE | 2016-05-31 12:35 | HHI.PR ---
Assessment and Plan Assessment Patient awake and alert. Trach on vent. Verbal consent for nerve conduction/EMG testing obtained. Motor nerve conduction testing completed left upper extremity. Sensory nerve conduction unable to be tested due to electrical interference. Motor nerve conduction testing initiated right upper extremity. Patient reports that he feels more short of breath and O2 saturation 87-88%. Testing immediately terminated and nursing notified. Will follow-up on 06/03/16 for EMG component of testing as feasible. Discussed with Dr. Giron and Dr Ritchie. Plan Followup on 06/03/16 Sylvia Hernandez MD May 31, 2016 12:35
--- NOTE | 2016-05-31 13:18 | HHI.CCPN ---
Subjective Remarks/Hospital Course 31 year old morbidly obese (BMI 68) male with chronic respiratory failure s/p tracheostomy 4 years ago, atrial fibrillation and pulmonary embolism on Xarelto , COPD, CHF and h/o HTN. He presented from [facility] with low oxygen saturation apparently his oxygen saturation was 82% on RA. He was placed back on 6L of oxygen via his trach mask and given a breathing treatment, initially improved however he started drifting back to low 80s again. Chest x-ray showed bibasilar infiltrates and pulmonary edema. Patient was admitted to the [facility] and was started on IV steroids IV vancomycin and Zosyn and Levaquin for healthcare associated pneumonia. After starting ACV, patient was more awake but there was a significant amount of air leak around his tracheostomy. Patient has had a Shiley 6.0 Proximal XLT, but the fire pilot balloon had been cut off. 05/02 the patient became acutely hypoxemic with a large cuff leak, underwent emergency trach exchange at bedside by Dr. Macias. FiO2 65% PEEP 14 05/13 Patient is on ventilator via trach, on Fentanyl infusion however he is awake and alert. On PRVC with FIO2 40%. Afebrile. 05/14 No acute events overnight. Tmax 99.8. Patient is awake, alert on ventilator via trach still requiring increase O2. On PRVC with PEEP: 10 and FIO2 70%. 05/15 patient acutely desaturated after he was found. Saturation went down to 70% on 100% oxygen. Bag and mask ventilation carried out, with eventual improvement on oxygen saturation to 85%. Patient was placed on PC/AC mode of ventilation, with PEEP of 15 and instructed to pressure of 30. Eventually oxygen saturation improved to 95%. Lasix him today as the chest x-ray from today shows increasing bilateral infiltrate and pulmonary edema. Also sputum culture will be sent 05/16 Patient is on Fentanyl and Diprivan infusion but awake and alert. Afebrile. On PC/AC with PEEP:15, IP: 22, IT:1.3 and FIO2 50% 05/17 Patient is off Diprivan and remains on Fentanyl infusion for sedation. On PC/AC with PEEP: down 10 and FIO2 40%. Afebrile. 05/18 Patient remains on ventilator via trach on PC/AC with PEEP:12, FIO2 40%, IP:22, IT:1.0. On Fentanyl infusion 05/19 No acute events overnight. On Fentanyl infusion but awake and alert. Afebrile. 05/20 Tolerating C Pap 17/12 FIO2 40, sats 98%. RSBI in 20s, appears can be weaned further. Afebrile. Speech therapy evaluated and ok for regular diet. Starting with full liquid. 05/21 Will wean PSV to 15/10. Tolerated full liquids, will advance to regular diet per speech recs. Subjective: 05/22 On PSV 15/10 FIO2 40 with sats 92%. Smiling today. Glad to be eating regular food again. 05/23 No acute events overnight. Remains on CPAP with PS 15, PEEP:10 and FIO2 40 %. Afebrile. Off Fentanyl drip. Afebrile. Awake and alert. 05/24 Patient is on CPAP 06/06 with 40% FIO2. Afebrile. Awake and alert, on no sedation. 05/25 No acute events overnight. Patient was placed back on PC/AC overnight. Tolerated CPAP trials during day yesterday. Awake and alert. On no drips. Afebrile. 05/26 Afebrile. Tmax 98.6. Today the patient complained of nausea requiring Zofran. The patient has a lack of an appetite, with noted hypoglycemia early this a.m. blood glucose level 69. Patient tolerating CPAP well greater than 12 hours in the last 24 hours. 05/27 The patient tolerated CPAP for over 36 hours, O2 sat a knee 94% on FIO2 40 %. The patient had an increase in appetite. The patient continues on full liquid diet. 05/28 The patient declined physical therapy treatment, yesterday and also overnight declined to be moved by nursing staff. The patient refused dinner last evening, of note patient was reevaluated by speech therapy and can consume a heart healthy diet with thin liquids. The patient continues on physical therapy for strengthening exercises of all extremities specifically noted right upper extremity continues to be weak with gross fibrillations noted in hand and forearm. 05/29 Afebrile. No change in right upper extremity weakness. The patient was seen by neurology yesterday plan for MRI today if possible in hospital MRI, and EMG studies. No complaints overnight. Patient continues to refuse to have activities performed, movement in bed. The patient appears to be depressed, psychiatry consulted. 05/30: Patient alert awake on CPAP. Following commands. Psych agrees the patient is depressed. MRI brain no acute findings 05/31: Awake alert. on PS 15/8. EMG could not be completed due to patient becoming anxious. Otherwise no acute events reported overnight Objective Vital Signs Date Time Temp Pulse Resp B/P Pulse Ox O2 Delivery O2 Flow Rate FiO2 05/31/16 11:38 50 05/31/16 11:38 91 05/31/16 08:00 94 05/31/16 08:00 98.0 23 115/58 Intake and Output 05/30/16 05/30/16 05/31/16 08:00 16:00 00:00 Intake Total 100 ml 608 ml Output Total 300 ml 1000 ml Balance -200 ml -392 ml Result Diagram: 05/30/16 0525 05/31/16 0415 Imaging Last Impressions Chest X-Ray 05/20/16 0000 Signed Impressions: Service Date/Time: Friday, May 20, 2016 03:21 - CONCLUSION: Persistent mid and lower lung areas of consolidation or atelectasis being worse in the right. There has been mild improvement. Garcia Lujan MD Upper Extremity Ultrasound 05/02/16 0000 Signed Impressions: Service Date/Time: April 20:51 - CONCLUSION: No DVT. Garcia Lujan MD Abdomen X-Ray 04/29/16 0000 Signed Impressions: Service Date/Time: Friday, April 29, 2016 07:12 - CONCLUSION: Suspect Dobbhoff tube in the distal stomach. Garcia Lujan MD Objective Remarks GENERAL: Patient is 31yo on ventilator via trach, awake and follows commands. Super Morbidly obese. Communicating appropriately SKIN: Warm and dry. HEAD: Normocephalic. EYES: No scleral icterus. No injection or drainage. NECK: Supple, trachea midline. Shiley 6.0 Proximal XLT, (new trach placed ) CARDIOVASCULAR:Tachycardic without murmurs, gallops, or rubs. RESPIRATORY: Breath sounds equal bilaterally. Distant secondary to habitus . On CPAP GASTROINTESTINAL: Abdomen soft, obese, non-tender, nondistended. Multiple noted areas of ecchymotic bruising secondary to subcutaneous injections MUSCULOSKELETAL: No cyanosis, or edema. Pedal edema. Wound on lateral aspect of right lower leg above lateral malleolus , dressing C/D/I. right upper extremity motor strength, inability to perform flexion, or pronation, hand application architect strength 2/5. Neuro: Awake and alert. Moves all extremities with focal deficit right upper extremity as above. Urinary Catheter: Yes Assessment to: Continue Date of Insertion: Apr 24, 2016 A/P Assessment and Plan ASSESSMENT Acute hypercapnic and hypoxemic respiratory failure Acute worsening of hypoxia due to lung de-recruitment 05/15/16 Healthcare associated pneumonia MDR Pseudomonas Sepsis CHF exacerbation CO2 narcosis Tracheostomy fire pilot balloon damage -status post exchange with new Shiley 6.0 Proximal XLT 05/02/16 Chronic Respiratory Failure s/p Tracheostomy 4 years ago (Shiley 6.0 Proximal XLT) COPD/obesity hypoventilation syndrome Morbid Obesity BMI 67 History of pulmonary embolism 4 years ago Chronic atrial fibrillation Anxiety CHF (Echo 2013 EF 40-45%; ECHO 08/2015 showing a grossly normal systolic function) Hypertension Hypothyroidism PLAN NEURO: CO2 narcosis - resolved Pain Anxiety Depression Critical care polyneuropathy Right upper extremity weakness 05/21-possibly secondary to nerve compression, C6 , C7 (brachial plexus) -EMG could not be completed today due to patient becoming anxious, will try again on Friday -On morphine 4 mg IV every 3 hours as needed for breakthrough pain. -Continue Zoloft 50mg daily -Noted right upper extremity absence of triceps reflex, diminished sensation/ numbness in C6-C7 dermatome level both anterior and posterior, inability for pronation, handgrip strength 2/5, lack of wrist extension/flexion. C6, C7 myotome pattern of muscle weakness.Positive shoulder abduction/adduction. -Continued PT daily, with strengthening exercise (encouraged patient to participate) patient counseled on the importance. -Neurology Dr. Cheek-MRI brain C spine no acute findings. EMG study, right upper extremity -Venous Doppler RUE 05/28-negative for DVT -Psychiatric consultation-agrees patient is depressed, Added Seroquel RESP: Acute hypercapnic and hypoxemic respiratory failure Acute lung derecruitment 05/15 Healthcare associated pneumonia Tracheostomy fire pilot balloon damage (Shiley 6.0 Proximal XLT) s/p new trach placement 05/02 Chronic Respiratory Failure s/p Tracheostomy 4 years ago COPD/obesity hypoventilation syndrome History of pulmonary embolism 4 years ago Leukocytosis-resolved Pulmonary edema - Continue with vent support keep sat >92%. Currently on CPAP, attempt TP/TC daily - PSV 15/8 50% and continue weaning as tolerated. Continue FIO2 .50% - s/p Bronchoscopy 05/11 -follow up on BAL results-negative - DuoNeb every 6 hours scheduled, q 2 prn. - Pulmicort BID (home med), - Continue Singulair 10 mg po daily - Therapeutic Lovenox 150 mg every 12 hours, consider transition to Xarelto ( home med) upon planned discharge CV: CHF exacerbation Pulmonary edema Paroxysmal atrial fibrillation (chronic) Hyperlipidemia -Monitor HR and BP keep MAP>65mmHg -Systolic BP [id number], continue to monitor trend possible escalation of antihypertensive meds -on Cardizem 60mg QID -Continue Lipitor 10 g by mouth daily. -Continue TriCor 40 mg by mouth daily -Therapeutic Lovenox 150 mg twice a day GI: Super morbid obesity with BMI of 63 -Regular diet ,thin liquids per speech recs. -On Pepcid 20mg BID -Poor appetite, refusing to eat -Multivitamin to medication regimen -Consider dietary supplementation FEN/RENAL: Hypokalemia - Monitor renal function , I/O. - Electrolytes replacement per protocol. - Bumex 1 mg IV q12 with KCL 40 q12 ID: Healthcare associated pneumonia Sepsis MDRO Cellulitis right arm-resolved Leukocytosis-resolved -Rocephin (05/12- 05/25) -Urine cx: Proteus Mirabilis 05/05 -Sputum cx: Providencia 05/05- resolved -Wound cx: 05/13 Proteus, Pseudomonas, Group D Enterococcus -Wound culture Pseudomonas MDR 04/27 -Sputum culture-Pseudomonas MDR- 04/27 -Bronchoscopy and re-culture 05/10 follow up on BAL results-neg to date -Follow up on sputum cx from 05/15- NGTD HEME: History of PE on chronic anticoagulation with Xarelto Anemia, iron deficiency and anemia of critical illness. -Monitor CBC, -Xarelto for PE 4 yrs ago. -Xarelto.held, On therapeutic Lovenox 150 mg twice a day, will continue -Ferrous sulfate 300 mg/q day ENDO: Hypothyroidism -On SSI (Low scale) -Continue levothyroxine 50 mcg po daily -Free T4 1.52 PROPH: -Bilateral lower extremity SCDs. Lovenox DVT therapeutic dose. GI prophylaxis- Pepcid 20mg BID LINES: - PICC line RUE- No DVT on US 05/02 Out of bed with assistance. PT out of bed with vent. OT. Discussed with patient and RN at bedside. Level 3 Jaquan Zelaya MD May 31, 2016 13:18
--- NOTE | 2016-05-31 14:16 | HHI.FPPN ---
Subjective Remarks Mr. Fortune was afebrile with tachycardia to ~110bpm overnight; patient normotensive with adequate urine output overnight. Patient reports thirst today , but otherwise states that he is doing well. Patient continues to have right upper extremity pain around area of his elbow. Patient continues to be involved in physical therapy. Patient states that EMG has not been performed yet today on right arm. (Cody Kelly MD R2) Objective Vitals Vital Signs Date Time Temp Pulse Resp B/P Pulse Ox O2 Delivery O2 Flow Rate FiO2 05/31/16 11:38 50 05/31/16 11:38 91 50 05/31/16 08:00 50 05/31/16 08:00 94 05/31/16 08:00 98.0 94 23 115/58 91 05/31/16 07:30 92 50 05/31/16 06:40 98 50 05/31/16 06:00 117 05/31/16 04:05 95 40 05/31/16 04:00 98.5 108 23 135/66 94 05/31/16 04:00 40 05/31/16 04:00 108 05/31/16 02:00 110 05/31/16 00:59 92 40 05/31/16 00:00 40 05/31/16 00:00 110 05/31/16 00:00 98.3 110 28 145/66 90 05/30/16 23:04 91 40 05/30/16 22:00 107 05/30/16 20:40 100 40 05/30/16 20:00 40 05/30/16 20:00 103 05/30/16 20:00 98.5 99 28 176/79 90 05/30/16 16:40 97 40 05/30/16 16:00 98.6 92 22 147/73 93 05/30/16 16:00 40 I/O 05/30/16 05/30/16 05/30/16 05/31/16 05/31/16 05/31/16 07:00 15:00 23:00 07:00 15:00 23:00 Intake Total 100 ml 608 ml 58 ml Output Total 300 ml 1000 ml 1800 ml Balance -200 ml -392 ml -1742 ml Intake Oral 480 ml IV Total 100 ml 128 ml 58 ml Output Urine Total 300 ml 1000 ml 1800 ml # Bowel Movements 1 (Cody Kelly MD R2) Result Diagram: 05/30/16 0525 05/31/16 0415 Imaging Last Impressions Cervical Spine MRI 05/29/16 0000 Signed Impressions: Service Date/Time: Sunday, May 29, 2016 13:51 - CONCLUSION: Limited study but appears normal. Vishnu Woodward MD Brain MRI 05/29/16 0000 Signed Impressions: Service Date/Time: Sunday, May 29, 2016 13:51 - CONCLUSION: 1. Focal chronic ischemic change in the high right frontal parietal convexity stable from previous CT scan. 2. No acute intracranial abnormality. 3. Minimal nonspecific white matter changes. Vishnu Woodward MD Upper Extremity Ultrasound 05/28/16 0000 Signed Impressions: Service Date/Time: Saturday, May 28, 2016 10:16 - CONCLUSION: 1. Negative for deep venous thrombosis. Venous line noted in cephalic, subclavian and internal jugular vein. Hoarcio Gupta MD Chest X-Ray 05/20/16 0000 Signed Impressions: Service Date/Time: Friday, May 20, 2016 03:21 - CONCLUSION: Persistent mid and lower lung areas of consolidation or atelectasis being worse in the right. There has been mild improvement. Garcia Lujan MD Abdomen X-Ray 04/29/16 0000 Signed Impressions: Service Date/Time: Friday, April 29, 2016 07:12 - CONCLUSION: Suspect Dobbhoff tube in the distal stomach. Garcia Lujan MD Objective Remarks GEN: Morbidly obese male. On mechanical ventilation via trach, awake and alert DERM: Warm and dry. Venous stasis changes lower regions. Nails bitten down. Yellow ecchymosis periumbilical region and R pannus. No erythema or skin breakdown. Numerous skin folds 2/2 habitus. No dermatitis appreciated via limited examination of arms, chest, pannus. HEENT: Tracheotomy site c/d/i CV: Distant heart sounds. RRR. Radial pulse 2+. RESP: T-piece in place. FIO2 50. Transmitted upper respiratory sounds. No wheezing GI: Abdomen soft, obese, non-tender. +BS MSK: Lower extremity edema. No calf tenderness. Legs without SCDs or pressure ulcer boots. NEURO: Able to speak in short sentences, voice hoarse with trach. Continued right upper extremity weakness; extents of weakness not examined on today's exam. LUE ROM limited. Can move to chest, not mouth. (Cody Kelly MD R2) Date of Insertion: Apr 24, 2016 (Cody Kelly MD R2) A/P Assessment and Plan 31y male w chronic respiratory failure s/p tracheostomy 4 years ago and Pickwickian/hypoventilation syndrome (BMI 68) admitted from rehab facility for treatment of hypoxia and PNA with IV antibiotics and supportive care. Broad planning 05/30: Appreciate CC, Neuro, Psych, PT/OT recommendations EEG 05/02- Stage 2 sleep vs diffuse mild encephalopathy. Neuro recommendations for management appreciated. Considering EMG RUE. MRI brain (05/29)- no acute intercranial process. Chronic focal ischemic changes R parietal lobe. MRI C-spine- wnl. Trach cuff trial yesterday- to f/u results w CC. Psych to see today. Continue PT (RUE) and OT (LUE and whole body weakness). Continue wean vent, steroid taper, management chronic conditions as below Discharge Planning Days, pending weaning from mechanical ventilation with stable clinical status. Ideally, return to long-term rehab facility. If qualifies, could consider rodent exterminator vent facility depending on status. (Cody Kelly MD R2) Attending Attestation Patient examined and case discussed with resident physicians I have read the above note and agree with the assessment/plan as discussed with me I was involved in all medical decision making for this patient Lázaro Rogers M.D (Lázaro Rogers MD) Problem List: (1) Weakness of extremity Status: Chronic Plan: -Rehabilitative Medicine consulted per Neurology -EMG attempted 06/01; stopped prematurely due to desaturations to 8788% O2 -Will retry 06/03 - Neurology consulted, recommendations appreciated - EEG (05/29) showed diffuse mild encephalopathy vs normal Stage 2 sleep. - RUE EMG pending - L hemispheric event unlikely - -Continue PT/OT, appreciate recommendations - Continue RUE PT- consider prophylactic use Zofran PRN and Oxycodone 7.5mg PRN pain prior to PT - Continue OT, focusing LUE with goal of feeding self. Requested nursing assistance with feeding. Monitor weight loss Impression: R UE weakness which began during hospitalization. -Ddx: C6-C7 radiculopathy vs mixed cervical plexopathy vs deconditioning vs apathy. At baseline, able to transfer to wheelchair and feed self. MRI brain (05/29) No acute intracranial process. Chronic ischemic changes to R parietal lobe. MRI c-spine wnl (05/29) RUE US negative for DVT (05/28) (2) On mechanically assisted ventilation Status: Acute Plan: - Critical care consulted, appreciate recommendations and help with management - On trach T-piece; CPAP (PS 15, PEEP 8, FiO2 50%) - Continue Solumedrol 20mg taper until 06/03 (05/31- decrease to 10mg), Pulmicort BID, Duonebs q2h PRN, Singulair 10mg daily Impression: Acute on chronic hypoxemic respiratory failure secondary to HCAP ( resolved) and tracheostomy leak s/p exchange 05/02). Reportedly requires baseline 6L NC at rehab facility. Placed on mechanical ventilation 04/24; critical care managing weaning (3) MDD (major depressive disorder) Status: Chronic Plan: -Psych consulted -Continue Sertraline 100 mg PO daily -Continue Seroquel 100mg as adjuvant Impression: Patient reports stable mood; some anhedonia suspected. Previously, patient reportedly been refusing meals, refusal to shower, and refusal of PT (4) Nausea Status: Chronic Plan: Impression: Chronic. Refusal PT 2/2 nausea (05/28). Emesis x1 (05/29). Ddx: medication side effect vs psychosomatic vs GERD vs ulcer. - Zofran 4mg IV REYES @900 + PRN q6h - Consider adding metoclopramide or erythromycin (5) HTN (hypertension) Status: Chronic Plan: Impression: B/P moderately-controlled -Cardiazem to 90mg QID (6) CHF (congestive heart failure) Status: Chronic Plan: -Continue -Bumex 1mg IV + 40 KCl BID, monitor I/Os, CC actively managing diuresis Impression: Likely HFpEF, though unable to confirm via ECHO (04/25/16) secondary to poor imaging . EF unknown. BNP was elevated to 400, decreasing. (7) Normocytic anemia Status: Chronic Plan: -Ferrous sulfate 300mg daily Impression: Secondary to chronic illness vs hypoxia. Hemoccult neg (8) Stable medical conditions Status: Chronic Plan: MORBID OBESITY WITH BMI 60-69 -see above plan for mechanical ventilation HYPOTHYROIDISM 08/2015- TSH low, free T4 grossly wnl (05/27/16) -Synthroid 50 mcg PO daily FUNGAL INFECTION -Nystatin powder and miconazole creme to skin folds GOUT -Allopurinol 300mg daily HYPERLIPIDEMIA -Atorvastatin 10mg daily and Tricor 48mg daily INSOMNIA -home Zolpidem 5mg HS PRN at pt request (9) Resolved condition, follow-up Status: Chronic Plan: Impression: resolved conditions this hospital visit - Cellulitis of Chest Wall: completed course linezolid (05/06-05/13), per ID recs - Yeast UTI: completed course Diflucan. UCx 05/01: Dionne albicans. Repeat UCx 05/05: Proteus Mirabilis - Paroxysmal Afib: EKG 05/17 sinus rhythm. Hold home Xarelto while on therapeutic Lovenox (10) HCAP (healthcare-associated pneumonia) Status: Resolved Plan: Impression: S/p numerous antibiotics. Sputum culture 04/27: resistant pseudomonas (04/27). Repeat SCx 05/10 neg. BCx no growth (05/01, 05/03, 05/04). ID consulted, now signed off. Abx History Zosyn 4.5gm IV q6h (04/24 - 04/29) Levaquin 750mg IV q24h (04/24-04/30) Zerbaxa 1.5 g IV q8h (04/29 - 05/07) Vancomycin IV (04/24 - 05/06) Ceftriaxone IV (05/07 - 05/25) Linezolid 600 mg PO BID (05/06 - 05/13) (11) History of DVT (deep vein thrombosis) Status: Acute Plan: -Lovenox 150 U BID for therapeutic treatment while in hospital Impression: Was on Xarelto for PE (12) Nutrition, metabolism, and development symptoms Status: Acute Plan: Fluids: PO Electrolytes: receiving 40KCl with Bumex, wnl Nutrition: regular Diet, reduced calories to 2200 (05/30), 2g sodium restricted Speech (05/28) signed off. Transition to oral feeds (05/29). Weight on admission: 218kg (480 lbs). Wt 05/30- 205k(452 lbs). Continue monitor, encourage, modify/restrict diet, as appropriate GI ppx: Famotidine 20mg BID DVT PPx: Therapeutic Lovenox 150mg SQ BID Pain: Oxycodone 7.5/325 q4 PRN RUE pain Bowels: Senna 2 tab HS REYES + Colase PRN (Cody Kelly MD R2) Problem Qualifiers (1) MDD (major depressive disorder): Qualified Code: F33.2 - Severe episode of recurrent major depressive disorder, without psychotic features (2) HTN (hypertension): Qualified Code: I10 - Essential hypertension (3) CHF (congestive heart failure): Qualified Code: I50.9 - Acute on chronic congestive heart failure, unspecified congestive heart failure type Cody Kelly MD R2 May 31, 2016 14:16 Lázaro Rogers MD May 31, 2016 16:41
[2016-05-31] MEDS: SODIUM CHLORIDE 0.9% FLUSH 5 ML FLUSH FLUSH SCH ×2 (17:48→22:12)
[2016-05-31] MEDS: QUEtiapine FUMARATE 100 MG TAB PO SCH (22:11)
[2016-05-31] MEDS: DOCUSATE SODIUM 50 MG/SENNA 8.6 MG TAB PO SCH (22:11)
[2016-05-31] MEDS ORDERED: POTASSIUM CL 40 MEQ/30 ML LIQ UDC PO SCH (23:00)
[2016-06-01] VITALS (18 sets, daily range): BP systolic 117–130; BP diastolic 58–67; PULSE 89–108; RESP 16–24; TEMP 98.6–101.5; O2SAT 90–94
[2016-06-01] MEDS: ENOXAPARIN SODIUM 150 MG/ML SYRINGE SQ SCH ×2 (04:00→16:00)
--- NOTE | 2016-06-01 05:23 | RADRPT ---
EXAM DATE/TIME: 06/01/2016 03:48 [facility] COMPARISON: CHEST SINGLE AP, May 20, 2016, 3:21. INDICATIONS : Shortness of breath, possible pulmonary disease. MEDICAL HISTORY : Hypertension. Congestive heart failure. SURGICAL HISTORY : Tracheostomy ENCOUNTER: Subsequent ACUITY: 1 month PAIN SCORE: Non-responsive. LOCATION: Bilateral chest FINDINGS: Portable AP view of the chest demonstrates cardiac silhouette size at the upper limits for normal. Tr acheostomy remains present. Lungs are underinflated with persistent bibasilar opacities. No pneumotho rax is visualized. There is a line overlying the right subclavian region and extends into the right n santa. CONCLUSION: 1. Right upper extremity PICC extends into the right neck. Distal tip is not definitively seen. 2. Stable bibasilar airspace opacities. Garcia Bae MD on June 01, 2016 at 5:20 Board Certified Radiologist. This report was verified electronically.
[2016-06-01] MEDS: LEVOTHYROXINE SODIUM 50 MCG TAB PO SCH (05:56)
[2016-06-01 06:45] LABS: AUTOMATED NEUTROPHIL # 7.2 TH/MM3 (1.8-7.7); BASOPHIL % 0.4 % (0.0-2.0); EOSINOPHIL # 0.2 TH/MM3 (0-0.4); EOSINOPHIL % 1.7 % (0.0-4.0); HEMATOCRIT 27.2 % (39.0-51.0); LYMPH % 9.6 % (9.0-44.0); LYMPHOCYTE # 0.9 TH/MM3 (1.0-4.8); MEAN CELL VOLUME 80.9 FL (80.0-100.0); MEAN CORPUSCULAR HEMOGLOBIN 24.9 PG (27.0-34.0); MEAN CORPUSCULAR HGB CONC 30.8 % (32.0-36.0); MONO % 11.4 % (0.0-8.0); NEUT % 76.9 % (16.0-70.0); PLATELET COUNT 255 TH/MM3 (150-450); RED BLOOD COUNT 3.37 MIL/MM3 (4.50-5.90); WHITE BLOOD COUNT 9.4 TH/MM3 (4.0-11.0)
[2016-06-01 06:54] LABS: HEMO FLAGS AUTO DIFF
[2016-06-01 06:57] LABS: ALKALINE PHOSPHATASE 74 U/L (45-117); ALT (GPT) 27 U/L (12-78); ANION GAP 8 MEQ/L (5-15); AST (GOT) 32 U/L (15-37); BICARBONATE 40.3 MEQ/L (21.0-32.0); BLOOD UREA NITROGEN 9 MG/DL (7-18); CHLORIDE 86 MEQ/L (98-107); GLOMERULAR FILTRATION RATE 392 ML/MIN (>89); POTASSIUM 3.6 MEQ/L (3.5-5.1); SODIUM (NA) 134 MEQ/L (136-145); TOTAL BILIRUBIN ADULT 0.8 MG/DL (0.2-1.0)
[2016-06-01] MEDS: RESP: BUDESONIDE 0.5 MG/2 ML NEB NEB SCH ×2 (07:52→19:36)
[2016-06-01] MEDS: RESP: ALBUTEROL 2.5 MG/IPRATROPIUM 0.5 MG NEB (PRN) NEB ×2 (07:52→19:36)
[2016-06-01] MEDS: CHLORHEXIDINE 0.12% (ORAL KIT) 15 ML CUP MT SCH ×2 (08:00→20:10)
[2016-06-01] MEDS: NYSTATIN 100,000 U/GM PWD 15 GM BTL TOPICAL SCH ×2 (08:16→20:11)
[2016-06-01] MEDS: COLLAGENASE OINT 30 GM TUBE TOP SCH (08:16)
[2016-06-01] MEDS: MICONAZOLE NITRATE 2% CREAM 15 GM TOP SCH ×2 (08:16→20:11)
[2016-06-01] MEDS: DILTIAZEM HCL 90 MG TAB PO SCH ×4 (08:17→20:11)
[2016-06-01] MEDS: ALLOPURINOL 300 MG TAB PO SCH (08:17)
[2016-06-01] MEDS: ATORVASTATIN 10 MG TAB PO SCH (08:17)
[2016-06-01] MEDS: MONTELUKAST SODIUM 10 MG TAB PO SCH (08:17)
[2016-06-01] MEDS: oxyCODONE/ACETAMINOPHEN 7.5 MG/325 MG TAB PO PRN (08:17)
[2016-06-01] MEDS: SERTRALINE HCL 100 MG TAB PO SCH (08:17)
[2016-06-01] MEDS: FAMOTIDINE 20 MG TAB PO SCH ×2 (08:17→20:11)
[2016-06-01] MEDS: FENOFIBRATE 48 MG TAB PO SCH (08:18)
[2016-06-01] MEDS: SODIUM CHLORIDE 0.9% FLUSH 5 ML FLUSH FLUSH SCH ×2 (08:19→20:11)
[2016-06-01] MEDS: MULTIVITAMINS LIQUID 5 ML UDC PO SCH (08:20)
[2016-06-01] MEDS: FERROUS SULFATE 300 MG /5ML UDC PO SCH (08:20)
[2016-06-01] MEDS: predniSONE 5 MG/5 ML CUP PO SCH (08:20)
[2016-06-01 09:42] LABS: BANDS 20 % (0-6); MYELOCYTES 14 % (0-0); NEUTROPHIL # MANUAL DIFF 7.7 TH/MM3 (1.8-7.7); POLYS (SEG NEUTROPHILS) 48 % (16-70); WBC DIFF SAMPLE 100
[2016-06-01 09:43] LABS: OVALOCYTES 1+ (NORMAL); PLATELET ESTIMATE SMEAR NORMAL (NORMAL); PLATELET MORPHOLOGY NORMAL (NORMAL); POLYCHROMASIA 3.2 % (0.0-1.9); SCAN/DIFF FINAL DIFF MANUAL; TOXIC GRANULATION 1+ (NORMAL)
--- NOTE | 2016-06-01 11:14 | HHI.CCPN ---
Subjective Remarks/Hospital Course 31 year old morbidly obese (BMI 68) male with chronic respiratory failure s/p tracheostomy 4 years ago, atrial fibrillation and pulmonary embolism on Xarelto , COPD, CHF and h/o HTN. He presented from [facility] with low oxygen saturation apparently his oxygen saturation was 82% on RA. He was placed back on 6L of oxygen via his trach mask and given a breathing treatment, initially improved however he started drifting back to low 80s again. Chest x-ray showed bibasilar infiltrates and pulmonary edema. Patient was admitted to the [facility] service and was started on IV steroids IV vancomycin and Zosyn and Levaquin for healthcare associated pneumonia. After starting ACV, patient was more awake but there was a significant amount of air leak around his tracheostomy. Patient has had a Shiley 6.0 Proximal XLT, but the deputy register of deeds balloon had been cut off. 05/02 the patient became acutely hypoxemic with a large cuff leak, underwent emergency trach exchange at bedside by Dr. Macias. FiO2 65% PEEP 14 05/13 Patient is on ventilator via trach, on Fentanyl infusion however he is awake and alert. On PRVC with FIO2 40%. Afebrile. 05/14 No acute events overnight. Tmax 99.8. Patient is awake, alert on ventilator via trach still requiring increase O2. On PRVC with PEEP: 10 and FIO2 70%. 05/15 patient acutely desaturated after he was found. Saturation went down to 70% on 100% oxygen. Bag and mask ventilation carried out, with eventual improvement on oxygen saturation to 85%. Patient was placed on PC/AC mode of ventilation, with PEEP of 15 and instructed to pressure of 30. Eventually oxygen saturation improved to 95%. Lasix him today as the chest x-ray from today shows increasing bilateral infiltrate and pulmonary edema. Also sputum culture will be sent 05/16 Patient is on Fentanyl and Diprivan infusion but awake and alert. Afebrile. On PC/AC with PEEP:15, IP: 22, IT:1.3 and FIO2 50% 05/17 Patient is off Diprivan and remains on Fentanyl infusion for sedation. On PC/AC with PEEP: down 10 and FIO2 40%. Afebrile. 05/18 Patient remains on ventilator via trach on PC/AC with PEEP:12, FIO2 40%, IP:22, IT:1.0. On Fentanyl infusion 05/19 No acute events overnight. On Fentanyl infusion but awake and alert. Afebrile. 05/20 Tolerating C Pap 17/12 FIO2 40, sats 98%. RSBI in 20s, appears can be weaned further. Afebrile. Speech therapy evaluated and ok for regular diet. Starting with full liquid. 05/21 Will wean PSV to 15/10. Tolerated full liquids, will advance to regular diet per speech recs. Subjective: 05/22 On PSV 15/10 FIO2 40 with sats 92%. Smiling today. Glad to be eating regular food again. 05/23 No acute events overnight. Remains on CPAP with PS 15, PEEP:10 and FIO2 40 %. Afebrile. Off Fentanyl drip. Afebrile. Awake and alert. 05/24 Patient is on CPAP 06/06 with 40% FIO2. Afebrile. Awake and alert, on no sedation. 05/25 No acute events overnight. Patient was placed back on PC/AC overnight. Tolerated CPAP trials during day yesterday. Awake and alert. On no drips. Afebrile. 05/26 Afebrile. Tmax 98.6. Today the patient complained of nausea requiring Zofran. The patient has a lack of an appetite, with noted hypoglycemia early this a.m. blood glucose level 69. Patient tolerating CPAP well greater than 12 hours in the last 24 hours. 05/27 The patient tolerated CPAP for over 36 hours, O2 sat a knee 94% on FIO2 40 %. The patient had an increase in appetite. The patient continues on full liquid diet. 05/28 The patient declined physical therapy treatment, yesterday and also overnight declined to be moved by nursing staff. The patient refused dinner last evening, of note patient was reevaluated by speech therapy and can consume a heart healthy diet with thin liquids. The patient continues on physical therapy for strengthening exercises of all extremities specifically noted right upper extremity continues to be weak with gross fibrillations noted in hand and forearm. 05/29 Afebrile. No change in right upper extremity weakness. The patient was seen by neurology yesterday plan for MRI today if possible in hospital MRI, and EMG studies. No complaints overnight. Patient continues to refuse to have activities performed, movement in bed. The patient appears to be depressed, psychiatry consulted. 05/30: Patient alert awake on CPAP. Following commands. Psych agrees the patient is depressed. MRI brain no acute findings 05/31: Awake alert. on PS 11/02. EMG could not be completed due to patient becoming anxious. Otherwise no acute events reported overnight 06/01: Remains PS from 11/02. Right upper extremity weakness persists. EMG to be repeated on Friday. Will need MRI of the brachial plexus. Chest x-ray is unchanged Objective Vital Signs Date Time Temp Pulse Resp B/P Pulse Ox O2 Delivery O2 Flow Rate FiO2 06/01/16 10:00 94 06/01/16 09:40 17 06/01/16 08:00 50 06/01/16 08:00 99.8 118/60 92 Intake and Output 05/31/16 05/31/16 05/31/16 07:59 15:59 23:59 Intake Total 58 ml 480 ml 682 ml Output Total 1800 ml 600 ml 700 ml Balance -1742 ml -120 ml -18 ml Result Diagram: 06/01/16 0610 06/01/16 0610 Imaging Last Impressions Chest X-Ray 05/20/16 0000 Signed Impressions: Service Date/Time: Friday, May 20, 2016 03:21 - CONCLUSION: Persistent mid and lower lung areas of consolidation or atelectasis being worse in the right. There has been mild improvement. Garcia Lujan MD Upper Extremity Ultrasound 05/02/16 0000 Signed Impressions: Service Date/Time: April 20:51 - CONCLUSION: No DVT. Garcia Lujan MD Abdomen X-Ray 04/29/16 0000 Signed Impressions: Service Date/Time: Friday, April 29, 2016 07:12 - CONCLUSION: Suspect Dobbhoff tube in the distal stomach. Garcia Lujan MD Objective Remarks GENERAL: Patient is 31yo on ventilator via trach, awake and follows commands. Super Morbidly obese. Communicating appropriately SKIN: Warm and dry. HEAD: Normocephalic. EYES: No scleral icterus. No injection or drainage. NECK: Supple, trachea midline. Shiley 6.0 Proximal XLT, (new trach placed ) CARDIOVASCULAR:Tachycardic without murmurs, gallops, or rubs. RESPIRATORY: Breath sounds equal bilaterally. Distant secondary to habitus . On CPAP 11/02 GASTROINTESTINAL: Abdomen soft, obese, non-tender, nondistended. Multiple noted areas of ecchymotic bruising secondary to subcutaneous injections MUSCULOSKELETAL: No cyanosis, or edema. Pedal edema. Wound on lateral aspect of right lower leg above lateral malleolus , dressing C/D/I. right upper extremity motor strength, inability to perform flexion, or pronation, hand electric container tester strength 2/5. Neuro: Awake and alert. Moves all extremities with focal deficit right upper extremity as above. Date of Insertion: Apr 24, 2016 A/P Assessment and Plan ASSESSMENT Acute hypercapnic and hypoxemic respiratory failure Acute worsening of hypoxia due to lung de-recruitment 05/15/16 Healthcare associated pneumonia MDR Pseudomonas Sepsis CHF exacerbation CO2 narcosis Tracheostomy deputy register of deeds balloon damage -status post exchange with new Shiley 6.0 Proximal XLT 05/02/16 Chronic Respiratory Failure s/p Tracheostomy 4 years ago (Shiley 6.0 Proximal XLT) Probable right brachial plexus injury COPD/obesity hypoventilation syndrome Morbid Obesity BMI 67 History of pulmonary embolism 4 years ago Chronic atrial fibrillation Anxiety CHF (Echo 2013 EF 40-45%; ECHO 08/2015 showing a grossly normal systolic function) Hypertension Hypothyroidism PLAN NEURO: CO2 narcosis - resolved Critical care polyneuropathy Right upper extremity weakness 05/21-possibly secondary to nerve compression, C6 , C7 (brachial plexus) Pain Anxiety Depression -EMG could not be completed today due to patient becoming anxious, attempt again on Friday per Dr. Castillo -Clinically probably has right brachial plexus injury -Right upper extremity absence of triceps reflex, diminished sensation/numbness in C6-C7 dermatome level both anterior and posterior, inability for pronation, handgrip strength 2/5, lack of wrist extension/flexion. C6, C7 myotome pattern of muscle weakness.Positive shoulder abduction/adduction. -Continued PT daily, with strengthening exercise (encouraged patient to participate) patient counseled on the importance. -Neurology Dr. Cheek-MRI brain C spine no acute findings. EMG study, right upper extremity -Venous Doppler RUE 05/28-negative for DVT -Psychiatric consultation-agrees patient is depressed, Added Seroquel. Continue Zoloft 50mg daily -On morphine 4 mg IV every 3 hours as needed for breakthrough pain. RESP: Acute hypercapnic and hypoxemic respiratory failure Acute lung derecruitment 05/15 with hypoxia Healthcare associated pneumonia Tracheostomy deputy register of deeds balloon damage (Shiley 6.0 Proximal XLT) s/p new trach placement 05/02 Chronic Respiratory Failure s/p Tracheostomy 4 years ago COPD/obesity hypoventilation syndrome History of pulmonary embolism 4 years ago Leukocytosis-resolved Pulmonary edema - Continue with vent support keep sat >92%. Currently on CPAP. Attempt TP/TC if PS can be reduced - PSV 15/8 50% and continue weaning as tolerated. Continue FIO2 .50% - s/p Bronchoscopy 05/11 -follow up on BAL results-negative - DuoNeb every 6 hours scheduled, q 2 prn. - Pulmicort BID (home med), Continue Singulair 10 mg po daily - Therapeutic Lovenox 150 mg every 12 hours, consider transition to Xarelto ( home med) upon planned discharge CV: CHF exacerbation Pulmonary edema Paroxysmal atrial fibrillation (chronic) Hyperlipidemia -Monitor HR and BP keep MAP>65mmHg -Systolic BP [id number], continue to monitor trend possible escalation of antihypertensive meds -on Cardizem 60mg QID -Continue Lipitor 10 g by mouth daily. -Continue TriCor 40 mg by mouth daily -Therapeutic Lovenox 150 mg twice a day GI: Super morbid obesity with BMI of 63 -Regular diet ,thin liquids per speech recs. -On Pepcid 20mg BID -Poor appetite, refusing to eat -Multivitamin to medication regimen -Consider dietary supplementation FEN/RENAL: Hypokalemia - Monitor renal function , I/O. - Electrolytes replacement per protocol. - Bumex 1 mg IV q12 with KCL 40 q12 ID: Healthcare associated pneumonia Sepsis MDRO Cellulitis right arm-resolved Leukocytosis-resolved -Rocephin (05/12- 05/25) -Urine cx: Proteus Mirabilis 05/05 -Sputum cx: Providencia 05/05- resolved -Wound cx: 05/13 Proteus, Pseudomonas, Group D Enterococcus -Wound culture Pseudomonas MDR 04/27 -Sputum culture-Pseudomonas MDR- 04/27 -Bronchoscopy and re-culture 05/10 follow up on BAL results-neg to date -Follow up on sputum cx from 05/15- NGTD HEME: History of PE on chronic anticoagulation with Xarelto Anemia, iron deficiency and anemia of critical illness. -Monitor CBC, -Xarelto for PE 4 yrs ago. -Xarelto.held, On therapeutic Lovenox 150 mg twice a day -Ferrous sulfate 300 mg/q day ENDO: Hypothyroidism -On SSI (Low scale) -Continue levothyroxine 50 mcg po daily -Free T4 1.52 PROPH: -Bilateral lower extremity SCDs. Lovenox DVT therapeutic dose. GI prophylaxis- Pepcid 20mg BID LINES: - PICC line RUE- No DVT on US 05/02 Out of bed with assistance. PT out of bed with vent. OT. Discussed with patient and RN at bedside. Level 3 Jaquan Zelaya MD Jun 01, 2016 11:14
[2016-06-01] MEDS: BUMETANIDE INJ 1 MG/4 ML VIAL IV PUSH SCH ×2 (11:37→20:11)
[2016-06-01] MEDS: POTASSIUM CHLORIDE 20 MEQ CONTROLLED RELEASE TAB PO SCH ×2 (11:37→23:03)
--- NOTE | 2016-06-01 12:20 | HHI.FPPN ---
Subjective Remarks Mr. Fortune was afebrile with mild tachycardia to 108 BPM overnight; O2 saturation 92% on 50% FiO2. Per EMR, patient having adequate urine output. Patient reports that he is doing well overall at this time; patient had some respiratory secretions which he requested that we suctioned him on exam room. Patient reports mood stable at this time. Patient does not report pain at this time. States that physical therapy is going well overall. Per EMR, patient did not tolerate EMG well yesterday. Per PT, patient experienced desaturation to 80% yesterday. (Cody Kelly MD R2) Objective Vitals Vital Signs Date Time Temp Pulse Resp B/P Pulse Ox O2 Delivery O2 Flow Rate FiO2 06/01/16 11:16 92 50 06/01/16 10:00 94 06/01/16 09:40 17 06/01/16 08:00 50 06/01/16 08:00 108 06/01/16 08:00 99.8 108 24 118/60 92 06/01/16 07:52 92 50 06/01/16 06:00 108 06/01/16 04:00 98.7 103 22 122/61 90 06/01/16 04:00 50 06/01/16 04:00 103 06/01/16 03:38 92 50 06/01/16 02:00 100 06/01/16 00:00 100 06/01/16 00:00 50 06/01/16 00:00 99.1 100 17 127/67 92 05/31/16 23:56 92 50 05/31/16 22:00 50 05/31/16 22:00 100 05/31/16 21:55 92 50 05/31/16 20:00 100.0 102 21 120/62 91 05/31/16 20:00 102 05/31/16 19:33 92 50 05/31/16 18:00 110 05/31/16 16:00 98.2 113 23 130/60 90 05/31/16 16:00 50 05/31/16 16:00 119 05/31/16 15:08 95 50 I/O 05/31/16 05/31/16 05/31/16 06/01/16 06/01/16 06/01/16 07:00 15:00 23:00 07:00 15:00 23:00 Intake Total 58 ml 480 ml 682 ml 739 ml Output Total 1800 ml 600 ml 700 ml 1550 ml Balance -1742 ml -120 ml -18 ml -811 ml Intake Oral 480 ml 600 ml 700 ml IV Total 58 ml 82 ml 39 ml Output Urine Total 1800 ml 600 ml 700 ml 1550 ml # Bowel Movements 1 1 0 0 (Cody Kelly MD R2) Result Diagram: 06/01/16 0610 06/01/16 06 Imaging Last Impressions Chest X-Ray 06/01/16 06 Signed Impressions: Service Date/Time: Wednesday, June 01, 2016 03:48 - CONCLUSION: 1. Right upper extremity PICC extends into the right neck. Distal tip is not definitively seen. 2. Stable bibasilar airspace opacities. Garcia Bae MD Cervical Spine MRI 05/29/16 0000 Signed Impressions: Service Date/Time: Sunday, May 29, 2016 13:51 - CONCLUSION: Limited study but appears normal. Vishnu Woodward MD Brain MRI 05/29/16 0000 Signed Impressions: Service Date/Time: Sunday, May 29, 2016 13:51 - CONCLUSION: 1. Focal chronic ischemic change in the high right frontal parietal convexity stable from previous CT scan. 2. No acute intracranial abnormality. 3. Minimal nonspecific white matter changes. Vishnu Woodward MD Upper Extremity Ultrasound 05/28/16 0000 Signed Impressions: Service Date/Time: Saturday, May 28, 2016 10:16 - CONCLUSION: 1. Negative for deep venous thrombosis. Venous line noted in cephalic, subclavian and internal jugular vein. Horacio Gupta MD Abdomen X-Ray 04/29/16 0000 Signed Impressions: Service Date/Time: Friday, April 29, 2016 07:12 - CONCLUSION: Suspect Dobbhoff tube in the distal stomach. Garcia Lujan MD Objective Remarks GEN: Morbidly obese male. DERM: Warm and dry. Venous stasis changes lower regions. Nails bitten down. Yellow ecchymosis periumbilical region and R pannus. No erythema or skin breakdown. Numerous skin folds 2/2 habitus. No dermatitis appreciated via limited examination of arms, chest, pannus. HEENT: Tracheotomy site c/d/i CV: Distant heart sounds. RRR. Radial pulse 2+. RESP: T-piece in place. FIO2 50. Transmitted upper respiratory sounds. No wheezing GI: Abdomen soft, obese, non-tender. +BS MSK: Lower extremity edema present bilaterally. No calf tenderness. NEURO: Continued right upper extremity weakness; extents of weakness not examined on today's exam. LUE ROM limited. Can move to chest, not mouth. ( Cody Kelly MD R2) Date of Insertion: Apr 24, 2016 (Cody Kelly MD R2) A/P Assessment and Plan 31y male w chronic respiratory failure s/p tracheostomy 4 years ago and Pickwickian/hypoventilation syndrome (BMI 68) admitted from rehab facility for treatment of hypoxia and PNA with IV antibiotics and supportive care. Broad planning 05/30: Appreciate CC, Neuro, Psych, PT/OT recommendations EEG 05/02- Stage 2 sleep vs diffuse mild encephalopathy. Neuro recommendations for management appreciated. Considering EMG RUE. MRI brain (05/29)- no acute intercranial process. Chronic focal ischemic changes R parietal lobe. MRI C-spine- wnl. Trach cuff trial yesterday- to f/u results w CC. Psych to see today. Continue PT (RUE) and OT (LUE and whole body weakness). Continue wean vent, steroid taper, management chronic conditions as below Discharge Planning Days, pending weaning from mechanical ventilation with stable clinical status. Ideally, return to long-term rehab facility. If qualifies, could consider [facility] vent facility depending on status. (Cody Kelly MD R2) Attending Attestation Pt. examined and case discussed with resident physician I have read the above note and agree with the assessment/plan as discussed with me I was involved in all medical decision making for this patient Lázaro Rogers MD (Lázaro Rogers MD) Problem List: (1) Weakness of extremity Status: Chronic Plan: -Rehabilitative Medicine consulted per Neurology -EMG attempted 06/01; stopped prematurely due to desaturations to 8788% O2 -Will retry 06/03 - Neurology consulted, recommendations appreciated - EEG (05/29) showed diffuse mild encephalopathy vs normal Stage 2 sleep. - RUE EMG pending - L hemispheric event unlikely -Brachial plexus MRI pending -Continue PT/OT, appreciate recommendations - Continue RUE PT- consider prophylactic use Zofran PRN and Oxycodone 7.5mg PRN pain prior to PT - Continue OT, focusing LUE with goal of feeding self. Requested nursing assistance with feeding. Monitor weight loss Impression: R UE weakness which began during hospitalization. -Ddx: C6-C7 radiculopathy vs mixed cervical plexopathy vs deconditioning vs apathy. At baseline, able to transfer to wheelchair and feed self. MRI brain (05/29) No acute intracranial process. Chronic ischemic changes to R parietal lobe. MRI c-spine wnl (05/29) RUE US negative for DVT (05/28) (2) On mechanically assisted ventilation Status: Acute Plan: - Critical care consulted, appreciate recommendations and help with management - On trach T-piece; CPAP (PS 15, PEEP 8, FiO2 50%) - Continue Solumedrol 20mg taper until 06/03 (05/31- decrease to 10mg), Pulmicort BID, Duonebs q2h PRN, Singulair 10mg daily Impression: Acute on chronic hypoxemic respiratory failure secondary to HCAP ( resolved) and tracheostomy leak s/p exchange 05/02). Reportedly requires baseline 6L NC at rehab facility. Placed on mechanical ventilation 04/24; critical care managing weaning (3) MDD (major depressive disorder) Status: Chronic Plan: -Psych consulted -Continue Sertraline 100 mg PO daily -Continue Seroquel 100mg as adjuvant Impression: Patient reports stable mood; some anhedonia suspected. Previously, patient reportedly been refusing meals, refusal to shower, and refusal of PT (4) Nausea Status: Chronic Plan: Impression: Chronic. Refusal PT 2/2 nausea (05/28). Emesis x1 (05/29). Ddx: medication side effect vs psychosomatic vs GERD vs ulcer. - Zofran 4mg IV REYES @900 + PRN q6h - Consider adding metoclopramide or erythromycin (5) HTN (hypertension) Status: Chronic Plan: Impression: B/P moderately-controlled -Cardiazem to 90mg QID (6) CHF (congestive heart failure) Status: Chronic Plan: -Continue -Bumex 1mg IV + 40 KCl BID, monitor I/Os, CC actively managing diuresis Impression: Likely HF with poor EF, though unable to confirm via ECHO (04/25/16 ) secondary to poor imaging . EF unknown. BNP was elevated to 400, decreasing. (7) Normocytic anemia Status: Chronic Plan: -Ferrous sulfate 300mg daily Impression: Secondary to chronic illness vs hypoxia. Hemoccult neg (8) Stable medical conditions Status: Chronic Plan: MORBID OBESITY WITH BMI 60-69 -see above plan for mechanical ventilation HYPOTHYROIDISM 08/2015- TSH low, free T4 grossly wnl (05/27/16) -Synthroid 50 mcg PO daily FUNGAL INFECTION -Nystatin powder and miconazole creme to skin folds GOUT -Allopurinol 300mg daily HYPERLIPIDEMIA -Atorvastatin 10mg daily and Tricor 48mg daily INSOMNIA -home Zolpidem 5mg HS PRN at pt request (9) Resolved condition, follow-up Status: Chronic Plan: Impression: resolved conditions this hospital visit - Cellulitis of Chest Wall: completed course linezolid (05/06-05/13), per ID recs - Yeast UTI: completed course Diflucan. UCx 05/01: Dionne albicans. Repeat UCx 05/05: Proteus Mirabilis - Paroxysmal Afib: EKG 05/17 sinus rhythm. Hold home Xarelto while on therapeutic Lovenox (10) HCAP (healthcare-associated pneumonia) Status: Resolved Plan: Impression: S/p numerous antibiotics. Sputum culture 04/27: resistant pseudomonas (04/27). Repeat SCx 05/10 neg. BCx no growth (05/01, 05/03, 05/04). ID consulted, now signed off. Abx History Zosyn 4.5gm IV q6h (04/24 - 04/29) Levaquin 750mg IV q24h (04/24-04/30) Zerbaxa 1.5 g IV q8h (04/29 - 05/07) Vancomycin IV (04/24 - 05/06) Ceftriaxone IV (05/07 - 05/25) Linezolid 600 mg PO BID (05/06 - 05/13) (11) History of DVT (deep vein thrombosis) Status: Acute Plan: -Lovenox 150 U BID for therapeutic treatment while in hospital Impression: Was on Xarelto for PE (12) Nutrition, metabolism, and development symptoms Status: Acute Plan: Fluids: PO Electrolytes: receiving 40KCl with Bumex, wnl Nutrition: regular Diet, reduced calories to 2200 (05/30), 2g sodium restricted Speech (05/28) signed off. Transition to oral feeds (05/29). Weight on admission: 218kg (480 lbs). Wt 05/30- 205k(452 lbs). Continue monitor, encourage, modify/restrict diet, as appropriate GI ppx: Famotidine 20mg BID DVT PPx: Therapeutic Lovenox 150mg SQ BID Pain: Oxycodone 7.5/325 q4 PRN RUE pain Bowels: Senna 2 tab HS REYES + Colase PRN (Cody Kelly MD R2) Problem Qualifiers (1) MDD (major depressive disorder): Qualified Code: F33.2 - Severe episode of recurrent major depressive disorder, without psychotic features (2) HTN (hypertension): Qualified Code: I10 - Essential hypertension (3) CHF (congestive heart failure): Qualified Code: I50.9 - Acute on chronic congestive heart failure, unspecified congestive heart failure type Cody Kelly MD R2 Jun 01, 2016 12:20 Lázaro Rogers MD Jun 01, 2016 21:03
[2016-06-01] MEDS: ACETAMINOPHEN 325 MG TAB PO PRN (14:06)
[2016-06-01] MEDS: DOCUSATE SODIUM 50 MG/SENNA 8.6 MG TAB PO SCH (20:11)
[2016-06-01] MEDS: QUEtiapine FUMARATE 100 MG TAB PO SCH (20:11)
[2016-06-02] VITALS (20 sets, daily range): BP systolic 121–146; BP diastolic 56–69; PULSE 81–100; RESP 17–24; TEMP 99–99.7; O2SAT 91–98
[2016-06-02] MEDS: RESP: ALBUTEROL 2.5 MG/IPRATROPIUM 0.5 MG NEB (PRN) NEB ×2 (01:35→07:43)
[2016-06-02] MEDS: ENOXAPARIN SODIUM 150 MG/ML SYRINGE SQ SCH ×2 (04:00→15:41)
[2016-06-02] MEDS: LEVOTHYROXINE SODIUM 50 MCG TAB PO SCH (05:41)
[2016-06-02 05:54] LABS: HEMATOCRIT 25.7 % (39.0-51.0); MEAN CORPUSCULAR HEMOGLOBIN 25.3 PG (27.0-34.0); MEAN CORPUSCULAR HGB CONC 31.7 % (32.0-36.0); PLATELET COUNT 210 TH/MM3 (150-450); RED BLOOD COUNT 3.21 MIL/MM3 (4.50-5.90); RED CELL DISTRIBUTION WIDTH 24.7 % (11.6-17.2); REVIEW FLAG FINAL; WHITE BLOOD COUNT 7.9 TH/MM3 (4.0-11.0)
[2016-06-02 06:10] LABS: BICARBONATE 41.2 MEQ/L (21.0-32.0); POTASSIUM 3.2 MEQ/L (3.5-5.1)
[2016-06-02] MEDS: RESP: BUDESONIDE 0.5 MG/2 ML NEB NEB SCH ×2 (07:43→19:34)
[2016-06-02] MEDS: ONDANSETRON HCL 4 MG/2 ML VIAL IV PUSH PRN (07:55)
[2016-06-02] MEDS: MULTIVITAMIN TAB PO SCH (07:57)
[2016-06-02] MEDS: FERROUS SULFATE 325 MG (65 MG ELEMENTAL IRON) TAB PO SCH (07:57)
[2016-06-02] MEDS: SODIUM CHLORIDE 0.9% FLUSH 5 ML FLUSH FLUSH SCH ×2 (07:57→21:59)
[2016-06-02] MEDS: MONTELUKAST SODIUM 10 MG TAB PO SCH (07:57)
[2016-06-02] MEDS: FENOFIBRATE 48 MG TAB PO SCH (07:57)
[2016-06-02] MEDS: DILTIAZEM HCL 90 MG TAB PO SCH ×4 (07:58→21:56)
[2016-06-02] MEDS: ATORVASTATIN 10 MG TAB PO SCH (07:58)
[2016-06-02] MEDS: NYSTATIN 100,000 U/GM PWD 15 GM BTL TOPICAL SCH ×2 (07:58→21:56)
[2016-06-02] MEDS: ALLOPURINOL 300 MG TAB PO SCH (07:58)
[2016-06-02] MEDS: MICONAZOLE NITRATE 2% CREAM 15 GM TOP SCH ×2 (07:58→21:57)
[2016-06-02] MEDS: FAMOTIDINE 20 MG TAB PO SCH ×2 (07:58→21:56)
[2016-06-02] MEDS: CHLORHEXIDINE 0.12% (ORAL KIT) 15 ML CUP MT SCH ×2 (07:59→22:00)
[2016-06-02] MEDS: SERTRALINE HCL 100 MG TAB PO SCH (07:59)
[2016-06-02] MEDS: COLLAGENASE OINT 30 GM TUBE TOP SCH (07:59)
[2016-06-02] MEDS ORDERED: predniSONE 10 MG TAB PO SCH (09:00)
[2016-06-02] MEDS: BUMETANIDE INJ 1 MG/4 ML VIAL IV PUSH SCH ×2 (10:01→21:56)
[2016-06-02] MEDS: POTASSIUM CHLORIDE 20 MEQ CONTROLLED RELEASE TAB PO SCH ×2 (10:03→21:56)
[2016-06-02] MEDS: POTASSIUM CHLOR 40 MEQ PREMIX 100 ML IV PRN ×2 (10:03→13:06)
--- NOTE | 2016-06-02 11:55 | HHI.FPPN ---
Subjective Remarks -Overnight, febrile to 99.4F. Tmax 101.5F yesterday. Denies fever/chills, SOB , chest pain/palpitation, abdominal pain, calf pain, RUBY/blurry vision, pain. -Continuing to wean from vent with O2 sats of 92-97%. BIPAP via T-piece/trach PEEP 8 FIO2 50% and CPAP overnight, as tolerated. -C/o nausea, denies emesis. Has received Zofran, not yet compazine. Asks if he can defer the MRI tomorrow. Eating without complaint. Requests Jello. -Denies RUE pain. Ability to move fingers increased, still can not lift arm against gravity. Denies pain in LUE/back. -RLE cellulitis has bandage c/d/i. Leg not excessively warm or erythematous. ( Holley Baires MD R1) Objective Vitals Vital Signs Date Time Temp Pulse Resp B/P Pulse Ox O2 Delivery O2 Flow Rate FiO2 06/02/16 10:19 98 50 06/02/16 10:00 98 06/02/16 08:00 50 06/02/16 08:00 91 06/02/16 08:00 99.4 92 24 146/69 95 06/02/16 07:43 97 50 06/02/16 06:00 91 06/02/16 05:46 95 50 06/02/16 04:00 96 06/02/16 04:00 50 06/02/16 04:00 99.7 91 20 141/69 97 06/02/16 03:47 96 50 06/02/16 02:00 98 06/02/16 00:19 93 50 06/02/16 00:00 99 06/02/16 00:00 99.0 99 23 128/63 91 06/02/16 00:00 50 06/01/16 22:00 91 06/01/16 20:00 50 06/01/16 20:00 98.6 89 16 125/66 92 06/01/16 20:00 89 06/01/16 19:33 94 50 06/01/16 19:00 90 06/01/16 18:00 93 06/01/16 16:00 108 06/01/16 16:00 50 06/01/16 16:00 101.5 108 24 117/58 91 06/01/16 15:12 94 50 06/01/16 15:08 28 06/01/16 14:00 105 06/01/16 12:00 50 06/01/16 12:00 101.0 102 23 130/61 92 06/01/16 12:00 102 I/O 06/01/16 06/01/16 06/01/16 06/02/16 06/02/16 06/02/16 06:59 14:59 22:59 06:59 14:59 22:59 Intake Total 739 ml 1548 ml 1470 ml Output Total 1550 ml 1000 ml 2500 ml Balance -811 ml 548 ml -1030 ml Intake Oral 700 ml 1500 ml 1400 ml IV Total 39 ml 48 ml 70 ml Output Urine Total 1550 ml 1000 ml 2500 ml # Bowel Movements 0 1 (Holley Baires MD R1) Result Diagram: 06/02/16 0537 06/02/16 0537 Imaging Last Impressions Chest X-Ray 06/01/16 0600 Signed Impressions: Service Date/Time: Wednesday, June 01, 2016 03:48 - CONCLUSION: 1. Right upper extremity PICC extends into the right neck. Distal tip is not definitively seen. 2. Stable bibasilar airspace opacities. Garcia Bae MD Cervical Spine MRI 05/29/16 0000 Signed Impressions: Service Date/Time: Sunday, May 29, 2016 13:51 - CONCLUSION: Limited study but appears normal. Vishnu Woodward MD Brain MRI 05/29/16 0000 Signed Impressions: Service Date/Time: Sunday, May 29, 2016 13:51 - CONCLUSION: 1. Focal chronic ischemic change in the high right frontal parietal convexity stable from previous CT scan. 2. No acute intracranial abnormality. 3. Minimal nonspecific white matter changes. Vishnu Woodward MD Upper Extremity Ultrasound 05/28/16 0000 Signed Impressions: Service Date/Time: Saturday, May 28, 2016 10:16 - CONCLUSION: 1. Negative for deep venous thrombosis. Venous line noted in cephalic, subclavian and internal jugular vein. Horacio Gupta MD Abdomen X-Ray 04/29/16 0000 Signed Impressions: Service Date/Time: Friday, April 29, 2016 07:12 - CONCLUSION: Suspect Dobbhoff tube in the distal stomach. Garcia Lujan MD Objective Remarks GEN: Morbidly obese male. DERM: Warm and dry. Venous stasis changes lower regions. Nails bitten down. Yellow ecchymosis periumbilical region and R pannus. No erythema or skin breakdown. Numerous skin folds 2/2 habitus. No dermatitis appreciated via limited examination of arms, chest, pannus. Bandage RLE ankle c/d/i. HEENT: Tracheotomy site c/d/i CV: Distant heart sounds. RRR. Radial pulse 2+. RESP: T-piece in place. FIO2 50. Transmitted upper respiratory sounds. No wheezing GI: Abdomen soft, obese, non-tender. +BS MSK: Lower extremity edema present bilaterally. No calf tenderness. NEURO: Continued right upper extremity weakness; unable to lift RUE against gravity. LUE ROM limited. Can move to chest, not mouth. (Holley Baires MD R1 ) Date of Insertion: Apr 24, 2016 (Holley Baires MD R1) A/P Assessment and Plan 31y male w chronic respiratory failure s/p tracheostomy 4 years ago and Pickwickian/hypoventilation syndrome (BMI 68) admitted from rehab facility for treatment of hypoxia and PNA with IV antibiotics and supportive care. Discharge Planning Days, pending weaning from mechanical ventilation with stable clinical status. Ideally, return to long-term rehab facility. If qualifies, could consider local [facility] vent facility depending on status. (Holley Baires MD R1) Attending Attestation I have examined the patient and have discussed the case with the resident physician I have read the above not and agree with the assessment/plan as discussed with me I was involved in all medical decision making for this patient Lázaro Rogers MD (Lázaro Rogers MD) Problem List: (1) Fever Status: Acute Plan: - Blood culture x2 (06/02) pending - U/A + Urine culture (06/02) pending - Sputum culture (06/02) pending - CXR pending - Acetaminophen 325mg PRN fever Impression: Febrile to 101.5 on 06/01. Febrile to 99.4 on 06/02. Will do infectious disease workup, as above to explore source as catheter vs trach vs PICC vs PNA vs other. Pt not currently on any antibiotics. (2) Weakness of extremity Status: Chronic Plan: -Neurology and rehabilitative medicine consulted, appreciate recommendations - EMG attempted 06/01, will re-try 06/03- stopped prematurely due to desaturations to 8788% O2 - MRI brachial plexus pending -Continue PT/OT, appreciate recommendations - Continue RUE PT- consider prophylactic Zofran PRN and Oxycodone 7.5mg PRN prior to PT - Continue OT, focusing LUE with goal of feeding self. Requested nursing assistance with feeding. Monitor weight loss Impression: RUE weakness that began during hospitalization. Ddx: C6-C7 radiculopathy vs mixed cervical plexopathy vs deconditioning. Prior to hospitalization, pt was able to transfer to wheelchair and feed self. US negative for DVT (05/28). MRI brain (04/28) no acute intracranial process- ruled out L hemispheric event as cause MRI C-spine wnl (05/29) EEG (05/29): diffuse mild encephalopathy vs normal Stage 2 sleep (3) On mechanically assisted ventilation Status: Acute Plan: - Critical care consulted, appreciate recommendations and help with management - On trach T-piece; CPAP (PS 15, PEEP 8, FiO2 50%) - Pulmicort BID, Duonebs q2h PRN, Singulair 10mg daily Impression: Acute on chronic hypoxemic respiratory failure secondary to HCAP ( resolved) and tracheostomy leak (s/p exchange 05/02). At baseline, uses 6L NC at rehab facility. Placed on mechanical ventilation 04/24; critical care managing weaning. Solumedrol course with taper completed (05/10-06/03). (4) MDD (major depressive disorder) Status: Chronic Plan: -Psych consulted, appreciate recommendations - Sertraline 100 mg PO daily - Seroquel 100mg as adjuvant Impression: Patient reports stable mood; some anhedonia suspected. Previously, patient reportedly been refusing meals, refusal to shower, and refusal of PT (5) Nausea Status: Chronic Plan: - Zofran 4mg q6h PRN - Compazine 5mg q8h PRN Impression: Chronic. Refusal PT 2/2 nausea (05/28). Emesis x1 (05/29). Difficulty w PT 2/2 nausea (05/31). Ddx: medication side effect vs psychosomatic vs GERD vs ulcer. (6) HTN (hypertension) Status: Chronic Plan: -Cardiazem to 90mg QID, b/p moderately-controlled (7) CHF (congestive heart failure) Status: Chronic Plan: -Continue -Bumex 1mg IV + 40 KCl BID, monitor I/Os, CC actively managing diuresis Impression: Likely HF with poor EF, though unable to confirm via ECHO (04/25/16 ) secondary to poor imaging . EF unknown. BNP was elevated to 400, decreasing. (8) Normocytic anemia Status: Chronic Plan: - Ferrous sulfate 325mg PO daily - Multivitamin 1 tab PO daily Impression: Secondary to chronic illness vs iron deficiency vs hypoxia. Hemoccult neg. MCV ~80. H/H ~02/23. Iron low: 32. TIBC wnl. % saturation low ( 10). (9) History of DVT (deep vein thrombosis) Status: Acute Plan: -Lovenox 150 U BID for therapeutic treatment while in hospital. Hold home Xarelto. (10) Stable medical conditions Status: Chronic Plan: MORBID OBESITY WITH BMI 60-69 -see above plan for mechanical ventilation HYPOTHYROIDISM 08/2015- TSH low, free T4 grossly wnl (05/27/16) -Synthroid 50 mcg PO daily FUNGAL INFECTION -Nystatin powder and miconazole creme to skin folds GOUT -Allopurinol 300mg daily HYPERLIPIDEMIA -Atorvastatin 10mg daily and Tricor 48mg daily INSOMNIA -Zolpidem 5mg HS PRN PAROXYSMAL AFIB - Xarelto while on therapeutic Lovenox. EKG 05/17: sinus rhythm. RESOLVED CONDITIONS THIS HOSPITAL VISIT - Cellulitis of Chest Wall: completed course linezolid (05/06-05/13), per ID recs - Yeast UTI: completed course Diflucan. UCx 05/01: Dionne albicans. Repeat UCx 05/05: Proteus Mirabilis () HCAP (healthcare-associated pneumonia) Status: Resolved Plan: Impression: S/p numerous antibiotics. Sputum culture 04/27: resistant pseudomonas (04/27). Repeat SCx 05/10 neg. BCx no growth (05/01, 05/03, 05/04). ID consulted, now signed off. Abx History Zosyn 4.5gm IV q6h (04/24 - 04/29) Levaquin 750mg IV q24h (04/24-04/30) Zerbaxa 1.5 g IV q8h (04/29 - 05/07) Vancomycin IV (04/24 - 05/06) Ceftriaxone IV (05/07 - 05/25) Linezolid 600 mg PO BID (05/06 - 05/13) (12) Nutrition, metabolism, and development symptoms Status: Acute Plan: FEN: Fluids: PO Electrolytes: receiving 40KCl with Bumex, wnl Nutrition: regular Diet, reduced calories to 2200 (05/30), 2g sodium restricted PPX: Speech (05/28) signed off. Transition to oral feeds (05/29). Weight on admission: 218kg (480 lbs). Wt 06/01- (446 lbs). Continue monitor, encourage, modify/restrict diet, as appropriate GI ppx: Famotidine 20mg BID DVT PPx: Therapeutic Lovenox 150mg SQ BID Pain: Oxycodone 7.5/325 q4 PRN RUE pain Bowels: Senna 2 tab HS REYES + Colase PRN SDW: Dr. Rogers (Holley Baires MD R1) Problem Qualifiers (1) MDD (major depressive disorder): Qualified Code: F33.2 - Severe episode of recurrent major depressive disorder, without psychotic features (2) HTN (hypertension): Qualified Code: I10 - Essential hypertension (3) CHF (congestive heart failure): Qualified Code: I50.9 - Acute on chronic congestive heart failure, unspecified congestive heart failure type Holley Baires MD R1 Jun 02, 2016 11:54 Lázaro Rogers MD Jun 02, 2016 19:54
--- NOTE | 2016-06-02 12:26 | RADRPT ---
EXAM DATE/TIME: 06/02/2016 11:59 [facility] COMPARISON: CHEST SINGLE AP, June 01, 2016, 3:48. INDICATIONS : Fever. MEDICAL HISTORY : Congestive heart failure. Hypertension. Hypothyroidism. Afib. SURGICAL HISTORY : Tonsillectomy. Tracheostomy. ENCOUNTER: Subsequent ACUITY: 2 months PAIN SCORE: 0/10 LOCATION: Bilateral chest FINDINGS: Mild bibasilar consolidation again noted, not significant changed. Mild cardiomegaly is also stable. Small pleural effusion suspected on the right. I don't see a pneumothorax. CONCLUSION: Bibasilar consolidation and mild cardiomegaly similar to before. Garcia Ramirez MD on June 02, 2016 at 12:24 Board Certified Radiologist. This report was verified electronically.
--- NOTE | 2016-06-02 12:47 | HHI.CCPN ---
Subjective Remarks/Hospital Course 31 year old morbidly obese (BMI 68) male with chronic respiratory failure s/p tracheostomy 4 years ago, atrial fibrillation and pulmonary embolism on Xarelto , COPD, CHF and h/o HTN. He presented from [facility] with low oxygen saturation apparently his oxygen saturation was 82% on RA. He was placed back on 6L of oxygen via his trach mask and given a breathing treatment, initially improved however he started drifting back to low 80s again. Chest x-ray showed bibasilar infiltrates and pulmonary edema. [facility] and was started on IV steroids IV vancomycin and Zosyn and Levaquin for healthcare associated pneumonia. After starting ACV, patient was more awake but there was a significant amount of air leak around his tracheostomy. Patient has had a Shiley 6.0 Proximal XLT, but the oversize load pilot escort balloon had been cut off. 05/02 the patient became acutely hypoxemic with a large cuff leak, underwent emergency trach exchange at bedside by Dr. Macias. FiO2 65% PEEP 14 05/13 Patient is on ventilator via trach, on Fentanyl infusion however he is awake and alert. On PRVC with FIO2 40%. Afebrile. 05/14 No acute events overnight. Tmax 99.8. Patient is awake, alert on ventilator via trach still requiring increase O2. On PRVC with PEEP: 10 and FIO2 70%. 05/15 patient acutely desaturated after he was found. Saturation went down to 70% on 100% oxygen. Bag and mask ventilation carried out, with eventual improvement on oxygen saturation to 85%. Patient was placed on PC/AC mode of ventilation, with PEEP of 15 and instructed to pressure of 30. Eventually oxygen saturation improved to 95%. Lasix him today as the chest x-ray from today shows increasing bilateral infiltrate and pulmonary edema. Also sputum culture will be sent 05/16 Patient is on Fentanyl and Diprivan infusion but awake and alert. Afebrile. On PC/AC with PEEP:15, IP: 22, IT:1.3 and FIO2 50% 05/17 Patient is off Diprivan and remains on Fentanyl infusion for sedation. On PC/AC with PEEP: down 10 and FIO2 40%. Afebrile. 05/18 Patient remains on ventilator via trach on PC/AC with PEEP:12, FIO2 40%, IP:22, IT:1.0. On Fentanyl infusion 05/19 No acute events overnight. On Fentanyl infusion but awake and alert. Afebrile. 05/20 Tolerating C Pap 17/12 FIO2 40, sats 98%. RSBI in 20s, appears can be weaned further. Afebrile. Speech therapy evaluated and ok for regular diet. Starting with full liquid. 05/21 Will wean PSV to 15/10. Tolerated full liquids, will advance to regular diet per speech recs. Subjective: 05/22 On PSV 15/10 FIO2 40 with sats 92%. Smiling today. Glad to be eating regular food again. 05/23 No acute events overnight. Remains on CPAP with PS 15, PEEP:10 and FIO2 40 %. Afebrile. Off Fentanyl drip. Afebrile. Awake and alert. 05/24 Patient is on CPAP 06/06 with 40% FIO2. Afebrile. Awake and alert, on no sedation. 05/25 No acute events overnight. Patient was placed back on PC/AC overnight. Tolerated CPAP trials during day yesterday. Awake and alert. On no drips. Afebrile. 05/26 Afebrile. Tmax 98.6. Today the patient complained of nausea requiring Zofran. The patient has a lack of an appetite, with noted hypoglycemia early this a.m. blood glucose level 69. Patient tolerating CPAP well greater than 12 hours in the last 24 hours. 05/27 The patient tolerated CPAP for over 36 hours, O2 sat a knee 94% on FIO2 40 %. The patient had an increase in appetite. The patient continues on full liquid diet. 05/28 The patient declined physical therapy treatment, yesterday and also overnight declined to be moved by nursing staff. The patient refused dinner last evening, of note patient was reevaluated by speech therapy and can consume a heart healthy diet with thin liquids. The patient continues on physical therapy for strengthening exercises of all extremities specifically noted right upper extremity continues to be weak with gross fibrillations noted in hand and forearm. 05/29 Afebrile. No change in right upper extremity weakness. The patient was seen by neurology yesterday plan for MRI today if possible in hospital MRI, and EMG studies. No complaints overnight. Patient continues to refuse to have activities performed, movement in bed. The patient appears to be depressed, psychiatry consulted. 05/30: Patient alert awake on CPAP. Following commands. Psych agrees the patient is depressed. MRI brain no acute findings 05/31: Awake alert. on PS 15/8. EMG could not be completed due to patient becoming anxious. Otherwise no acute events reported overnight 06/01: Remains PS from 15. Right upper extremity weakness persists. EMG to be repeated on Friday. Will need MRI of the brachial plexus. Chest x-ray is unchanged 06/02: States that "not feeling well". Febrile to 101.5. White count increasing but still within the normal range. Pancultured. We'll request ID reevaluation Objective Vital Signs Date Time Temp Pulse Resp B/P Pulse Ox O2 Delivery O2 Flow Rate FiO2 06/02/16 10:19 98 50 06/02/16 10:00 98 06/02/16 08:00 99.4 24 146/69 Intake and Output 06/01/16 06/01/16 06/02/16 08:00 16:00 00:00 Intake Total 739 ml 1548 ml 717 ml Output Total 1550 ml 1000 ml 2050 ml Balance -811 ml 548 ml -1333 ml Result Diagram: 06/02/16 0537 06/02/16 0537 Imaging Last Impressions Chest X-Ray 05/20/16 0000 Signed Impressions: Service Date/Time: Friday, May 20, 2016 03:21 - CONCLUSION: Persistent mid and lower lung areas of consolidation or atelectasis being worse in the right. There has been mild improvement. Garcia Lujan MD Upper Extremity Ultrasound 05/02/16 0000 Signed Impressions: Service Date/Time: April 20:51 - CONCLUSION: No DVT. Garcia Lujan MD Abdomen X-Ray 04/29/16 0000 Signed Impressions: Service Date/Time: Friday, April 29, 2016 07:12 - CONCLUSION: Suspect Dobbhoff tube in the distal stomach. Garcia Lujan MD Objective Remarks GENERAL: Patient is 31yo on ventilator via trach, awake and follows commands. Super Morbidly obese. Communicating appropriately SKIN: Warm and dry. HEAD: Normocephalic. EYES: No scleral icterus. No injection or drainage. NECK: Supple, trachea midline. Shiley 6.0 Proximal XLT, (new trach placed ) CARDIOVASCULAR:Tachycardic without murmurs, gallops, or rubs. RESPIRATORY: Breath sounds equal bilaterally. Distant secondary to habitus . On CPAP 11/02 GASTROINTESTINAL: Abdomen soft, obese, non-tender, nondistended. Multiple noted areas of ecchymotic bruising secondary to subcutaneous injections MUSCULOSKELETAL: No cyanosis, or edema. Pedal edema. Wound on lateral aspect of right lower leg above lateral malleolus , dressing C/D/I. 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 Neuro: Awake and alert. Moves all extremities with focal deficit right upper extremity as above. Date of Insertion: Apr 24, 2016 A/P Assessment and Plan ASSESSMENT Acute hypercapnic and hypoxemic respiratory failure Acute worsening of hypoxia due to lung de-recruitment 05/15/16 Healthcare associated pneumonia MDR Pseudomonas Sepsis CHF exacerbation CO2 narcosis Tracheostomy oversize load pilot escort balloon damage -status post exchange with new Shiley 6.0 Proximal XLT 05/02/16 Chronic Respiratory Failure s/p Tracheostomy 4 years ago (Shiley 6.0 Proximal XLT) Probable right brachial plexus injury COPD/obesity hypoventilation syndrome Morbid Obesity BMI 67 History of pulmonary embolism 4 years ago Chronic atrial fibrillation Anxiety CHF (Echo 2013 EF 40-45%; ECHO 08/2015 showing a grossly normal systolic function) Hypertension Hypothyroidism PLAN NEURO: CO2 narcosis - resolved Critical care polyneuropathy Right upper extremity weakness 05/21-possibly secondary to nerve compression, C6 , C7 (brachial plexus) Pain Anxiety Depression -EMG could not be completed due to patient becoming anxious, attempt again on Friday per Dr. Castillo -Right upper extremity absence of triceps reflex, diminished sensation/numbness in C6-C7 dermatome level both anterior and posterior, inability for pronation, handgrip strength 2/5, lack of wrist extension/flexion. C6, C7 myotome pattern of muscle weakness.Positive shoulder abduction/adduction. -Clinically probably has right brachial plexus injury. MRI of brachial plexus- patient refusing for now -Continued PT daily, with strengthening exercise (encouraged patient to participate) patient counseled on the importance. -Neurology Dr. Cheek-MRI brain C spine no acute findings. EMG study, right upper extremity -Venous Doppler RUE 05/28-negative for DVT -Psychiatric consultation-agrees patient is depressed, Added Seroquel. Continue Zoloft 50mg daily -On morphine 4 mg IV every 3 hours as needed for breakthrough pain. RESP: Acute hypercapnic and hypoxemic respiratory failure Acute lung derecruitment 05/15 with hypoxia Healthcare associated pneumonia Tracheostomy oversize load pilot escort balloon damage (Shiley 6.0 Proximal XLT) s/p new trach placement 05/02 Chronic Respiratory Failure s/p Tracheostomy 4 years ago COPD/obesity hypoventilation syndrome History of pulmonary embolism 4 years ago Leukocytosis-resolved Pulmonary edema - Continue with vent support keep sat >90%. Currently on CPAP. Attempt TP/TC if PS can be reduced - PSV 15/8 50% and continue weaning as tolerated. Continue FIO2 .50% - s/p Bronchoscopy 05/11 -follow up on BAL results-negative - DuoNeb every 6 hours scheduled, q 2 prn. - Pulmicort BID (home med), Continue Singulair 10 mg po daily - Therapeutic Lovenox 150 mg every 12 hours, consider transition to Xarelto ( home med) upon planned discharge CV: CHF exacerbation Pulmonary edema Paroxysmal atrial fibrillation (chronic) Hyperlipidemia -Monitor HR and BP keep MAP>65mmHg -Systolic BP [id number], continue to monitor trend possible escalation of antihypertensive meds -on Cardizem 60mg QID -Continue Lipitor 10 g by mouth daily. -Continue TriCor 40 mg by mouth daily -Therapeutic Lovenox 150 mg twice a day GI: Super morbid obesity with BMI of 63 -Regular diet ,thin liquids per speech recs. Refusing meals due to lack of appetite, Nausea -Check GB US -On Pepcid 20mg BID -Multivitamin to medication regimen -Consider dietary supplementation FEN/RENAL: Hypokalemia - Monitor renal function , I/O. - Electrolytes replacement per protocol. - Bumex 1 mg IV q12 with KCL 40 q12 ID: Healthcare associated pneumonia Sepsis New fever MDRO Cellulitis right arm-resolved Leukocytosis-resolved -Rocephin (05/12- 05/25) -Urine cx: Proteus Mirabilis 05/05 -Sputum cx: Providencia 05/05- resolved -Wound cx: 05/13 Proteus, Pseudomonas, Group D Enterococcus -Wound culture Pseudomonas MDR 04/27 -Sputum culture-Pseudomonas MDR- 04/27 -Bronchoscopy and re-culture 05/10 follow up on BAL results-neg to date -Follow up on sputum cx from 05/15- NGTD -Repeat cultures today including wound culture from the right lower extremity wound -Start cefepime 2 g IV every 8 HEME: History of PE on chronic anticoagulation with Xarelto Anemia, iron deficiency and anemia of critical illness. -Monitor CBC, -Xarelto for PE 4 yrs ago. -Xarelto.held, On therapeutic Lovenox 150 mg twice a day -Ferrous sulfate 300 mg/q day ENDO: Hypothyroidism -On SSI (Low scale) -Continue levothyroxine 50 mcg po daily -Free T4 1.52 PROPH: -Bilateral lower extremity SCDs. Lovenox DVT therapeutic dose. GI prophylaxis- Pepcid 20mg BID LINES: - PICC line RUE- No DVT on US 05/02 Out of bed with assistance. PT out of bed with vent. OT. Discussed with patient and RN at bedside. Level 3 Jaquan Zelaya MD Jun 02, 2016 12:47
[2016-06-02] MEDS ORDERED: CEFEPIME INJ 2,000 MG in SODIUM CHLORIDE 0.9% INJ 100 ML IV SCH (14:00)
[2016-06-02 14:34] LABS: BLOOD, URINE NEG (NEG); CALCIUM OXALATE CRYSTALS,URINE FEW /hpf; GLUCOSE,URINE NEG (NEG); KETONE, URINE NEG (NEG); MUCUS URINE FEW /lpf (OCC); NITRITE,URINE NEG (NEG); URINE COLOR LIGHT-YELLOW (YELLW/STRAW)
--- NOTE | 2016-06-02 16:43 | HHI.IDPN ---
Subjective Subjective Remarks ID Xcover for . Chart reviewed. Patient known to me from prior visits. 31 y/o Morbidly obese CM, with Chronic respiratory failure, prior h/o HCAP with MDR PSAE that are resistant to Cefepime and Zosyn. Reconsulted for fevers last 24 hours. Overnight events reviewed with RN. Same RN Erika from y. She informs me temps were taken axillary yday and today she has made attempts at oral temps and appear normal. WBC normal. Secretions green, thick. No change in vent settings. Patient reports no change in breathing effort. Opens eyes follows commands and mouths words. BP ok not on pressors. On CPAP all day for many days. No rash No diarrhea. Antibiotics Cefepime IV Lines PICC RUE Past Medical History Chronic Respiratory Failure s/p Tracheostomy 4 years ago Morbid Obesity w/ BMI 67.6 Atrial fibrillation Pulmonary embolism 4 years ago Anxiety CHF (Echo 06/07/2014 w/ EF 40-45%; ECHO 08/2015 showing a grossly normal systolic function) HTN Hypothyroidism Past Surgical History Tracheostomy Tonsillectomy Allergies: Coded Allergies: *MDRO Multi-Drug Resistant Organism (Verified Adverse Reaction, Unknown, 05/08/16) XDR Pseudomonas aeruginosa (sputum) - 09/18/15; (sputum & wound) - 04/27/16 Objective . Vital Signs Date Time Temp Pulse Resp B/P Pulse Ox O2 Delivery O2 Flow Rate FiO2 06/02/16 16:00 99.2 90 21 121/56 96 06/02/16 16:00 90 06/02/16 16:00 50 06/02/16 15:33 97 50 06/02/16 14:00 92 06/02/16 12:00 50 06/02/16 12:00 99.0 96 24 136/64 95 06/02/16 12:00 96 06/02/16 10:19 98 50 06/02/16 10:00 98 06/02/16 08:00 50 06/02/16 08:00 91 06/02/16 08:00 99.4 92 24 146/69 95 06/02/16 07:43 97 50 06/02/16 06:00 91 06/02/16 05:46 95 50 06/02/16 04:00 96 06/02/16 04:00 50 06/02/16 04:00 99.7 91 20 141/69 97 06/02/16 03:47 96 50 06/02/16 02:00 98 06/02/16 00:19 93 50 06/02/16 00:00 99 06/02/16 00:00 99.0 99 23 128/63 91 06/02/16 00:00 50 06/01/16 22:00 91 06/01/16 20:00 50 06/01/16 20:00 98.6 89 16 125/66 92 06/01/16 20:00 89 06/01/16 19:33 94 50 06/01/16 19:00 90 06/01/16 18:00 93 06/01/16 06/01/16 06/02/16 15:00 23:00 07:00 Intake Total 1548 ml 1470 ml Output Total 1000 ml 2500 ml Balance 548 ml -1030 ml Intake Oral 1500 ml 1400 ml IV Total 48 ml 70 ml Output Urine Total 1000 ml 2500 ml # Bowel Movements 1 . Laboratory Tests Test 06/01/16 06/02/16 06:10 05:37 White Blood Count 9.4 TH/MM3 7.9 TH/MM3 Red Blood Count 3.37 MIL/MM3 3.21 MIL/MM3 Hemoglobin 8.4 GM/DL 8.1 GM/DL Hematocrit 27.2 % 25.7 % Mean Corpuscular Volume 80.9 FL 80.0 FL Mean Corpuscular Hemoglobin 24.9 PG 25.3 PG Mean Corpuscular Hemoglobin 30.8 % 31.7 % Concent Red Cell Distribution Width 26.0 % 24.7 % Platelet Count 255 TH/MM3 210 TH/MM3 Mean Platelet Volume 6.6 FL 6.6 FL Neutrophils (%) (Auto) 76.9 % Lymphocytes (%) (Auto) 9.6 % Monocytes (%) (Auto) 11.4 % Eosinophils (%) (Auto) 1.7 % Basophils (%) (Auto) 0.4 % Neutrophils # (Auto) 7.2 TH/MM3 Lymphocytes # (Auto) 0.9 TH/MM3 Monocytes # (Auto) 1.1 TH/MM3 Eosinophils # (Auto) 0.2 TH/MM3 Basophils # (Auto) 0.0 TH/MM3 CBC Comment AUTO DIFF Differential Total Cells 100 Counted Neutrophils % (Manual) 48 % Band Neutrophils % 20 % Lymphocytes % 10 % Monocytes % 8 % Neutrophils # (Manual) 7.7 TH/MM3 Myelocytes 14 % Differential Comment FINAL DIFF MANUAL Toxic Granulation 1+ Platelet Estimate NORMAL Platelet Morphology Comment NORMAL Polychromasia 3.2 % Ovalocytes 1+ Laboratory Tests Test 06/01/16 06/02/16 06:10 05:37 Sodium Level 134 MEQ/L 130 MEQ/L Potassium Level 3.6 MEQ/L 3.2 MEQ/L Chloride Level 86 MEQ/L 84 MEQ/L Carbon Dioxide Level 40.3 MEQ/L 41.2 MEQ/L Anion Gap 8 MEQ/L 5 MEQ/L Blood Urea Nitrogen 9 MG/DL 9 MG/DL Creatinine 0.27 MG/DL 0.23 MG/DL Estimat Glomerular Filtration 392 ML/MIN 472 ML/MIN Rate Random Glucose 89 MG/DL 84 MG/DL Calcium Level 8.2 MG/DL 7.7 MG/DL Total Bilirubin 0.8 MG/DL Aspartate Amino Transf 32 U/L (AST/SGOT) Alanine Aminotransferase 27 U/L (ALT/SGPT) Alkaline Phosphatase 74 U/L Total Protein 5.2 GM/DL Albumin 2.1 GM/DL Microbiology Date/Time Procedure Status Source Growth 06/02/16 11:47 Aerobic Blood Culture Received Blood Line Pending 06/02/16 11:47 Anaerobic Blood Culture Received Blood Line Pending 06/02/16 12:25 Gram Stain Received Sputum Oral Tracheal Aspirate Pending 06/02/16 12:25 Sputum Culture Received Sputum Oral Tracheal Aspirate Pending 06/02/16 12:30 Aerobic Blood Culture Received Blood Line Pending 06/02/16 12:30 Anaerobic Blood Culture Received Blood Line Pending 06/02/16 12:55 Gram Stain Received Wound Ankle Pending 06/02/16 12:55 Wound Culture Received Wound Ankle Pending 06/02/16 13:05 Urine Culture Received Urine Catheterized Urine Pending Imaging Chest X-Ray 05/20/16 0000 Signed Impressions: Service Date/Time: Friday, May 20, 2016 03:21 - CONCLUSION: Persistent mid and lower lung areas of consolidation or atelectasis being worse in the right. There has been mild improvement. Garcia Lujan MD Chest X-Ray 05/16/16 0600 Signed Impressions: Service Date/Time: April 03:21 - CONCLUSION: 1. Slight improvement in bilateral airspace disease over the last day. Horacio Gupat MD Chest X-Ray 05/15/16 06 Signed Impressions: Service Date/Time: Sunday, May 15, 2016 04:31 - CONCLUSION: 1. Slight increase in airspace disease since May 13. Differential diagnosis includes pulmonary edema. Support apparatus unchanged. Horacio Gupta MD Chest X-Ray 05/13/16 06 Signed Impressions: Service Date/Time: Friday, May 13, 2016 03:26 - CONCLUSION: 1. Stable exam compared with May 12 with bilateral mostly basilar airspace disease. Horacio Gupta MD Chest X-Ray 05/10/16 06 Signed Impressions: Service Date/Time: Tuesday, May 10, 2016 02:45 - CONCLUSION: Worsening right lower lobe infiltrate. Jeremiah Walton Jr., MD Chest X-Ray 05/09/16 06 Signed Impressions: Service Date/Time: April 02:52 - CONCLUSION: No significant change has occurred. Bill Zavala MD Chest X-Ray 05/08/16 06 Signed Impressions: Service Date/Time: Sunday, May 08, 2016 04:01 - CONCLUSION: No significant change has occurred. Bill Zavala MD Chest X-Ray 05/05/16 06 Signed Impressions: Service Date/Time: Thursday, May 05, 2016 01:56 - CONCLUSION: Improved aeration bilaterally particularly in the left upper lobe. Tube and catheter are stable. Amador Brock MD Chest X-Ray 05/03/16 0000 Signed Impressions: Service Date/Time: Tuesday, May 03, 2016 06:40 - CONCLUSION: Increasing bilateral diffuse pulmonary infiltrates compared to the prior study. Lázaro Frankel MD Upper Extremity Ultrasound 05/02/16 0000 Signed Impressions: Service Date/Time: April 20:51 - CONCLUSION: No DVT. Garcia Lujan MD Abdomen X-Ray 04/29/16 0000 Signed Impressions: Service Date/Time: Friday, April 29, 2016 07:12 - CONCLUSION: Suspect Dobbhoff tube in the distal stomach. Garcia Lujan MD Physical Exam GENERAL: Awake and alert, on CPAP, comfortable SKIN: Warm and moist. No generalized rash. HEENT: Ulen conjunctivae. No scleral icterus. Moist mucosa. NECK: Short and obese, has trach, site ok. Supple, no meningeal signs. CARDIOVASCULAR: Regular rate and rhythm. Distant heart sounds. RESPIRATORY: Decreased BS bilaterally. GASTROINTESTINAL: Abdomen soft, morbidly obese, not tender, not distended. MUSCULOSKELETAL: Extremities without clubbing, cyanosis. Has mild pitting edema. NEUROLOGICAL: Awake and following, responding LINE: PICC in RU, site ok, : [place] in place, urine looks clear Assessment & Plan Remarks IMPRESSION Chronic respiratory failure, has new trach, ? HCAP - C/S with MDR PSAE, Cefepime resistant, Zosyn resistant. MDR PSAE PNA, S/P Rx Morbid obesity Sleep apnea Hx PE Anorexia RECOMMENDATION DC Cefepime IV (prior MDR organisms) Start Colistin nebs Clinically stable. Monitor temps obtained orally and accurately. Spoke to patient about him not eating last few days. He seems sad but is on Zoloft and Seroquel. He did not like his burger from today. Wants to try home food. Sodium low ok to have Mom bring in some home food. Informed patient if he does not eat we will have to start tube feeds and PEG etc. He is agreeable to trying foods. Monitor food intake. Calorie intake. If Clinical change overnight ok to start Zerbaxa IV(prior h/o MDR PSAE) and Vanco IV. Margo Land MD Jun 02, 2016 16:43
[2016-06-02] MEDS: DOCUSATE SODIUM 50 MG/SENNA 8.6 MG TAB PO SCH (21:00)
[2016-06-02] MEDS: QUEtiapine FUMARATE 100 MG TAB PO SCH (21:56)
[2016-06-03] VITALS (16 sets, daily range): BP systolic 129–158; BP diastolic 64–73; PULSE 67–94; RESP 13–24; TEMP 97.8–98.8; O2SAT 92–100
[2016-06-03] MEDS: RESP: COLISTIN 150 MG VIAL NEB SCH ×3 (00:21→15:54)
[2016-06-03] MEDS: oxyCODONE/ACETAMINOPHEN 7.5 MG/325 MG TAB PO PRN ×2 (00:40→22:26)
--- NOTE | 2016-06-03 05:24 | RADRPT ---
EXAM DATE/TIME: 06/03/2016 03:22 [facility] COMPARISON: CHEST SINGLE AP, June 02, 2016, 11:59. INDICATIONS : Shortness of breath, possible pulmonary disease. MEDICAL HISTORY : Congestive heart failure. Hypothyroidism. Hypertension. A-Fib SURGICAL HISTORY : Tonsillectomy. Tracheostomy ENCOUNTER: Subsequent ACUITY: 2 months PAIN SCORE: Non-responsive. LOCATION: Bilateral chest FINDINGS: A single view of the chest demonstrates bilateral pulmonary edema. Right basilar density likely pleur al effusion and atelectasis. Tracheostomy tube unchanged. PICC line is unchanged with tip in the righ t neck. Heart enlarged The cardiomediastinal contours are unremarkable. Osseous structures are intac t. CONCLUSION: 1. Cardiomegaly with bilateral pulmonary edema. 2. Moderate right pleural effusion. Vishnu Woodward MD on June 03, 2016 at 5:20 Board Certified Radiologist. This report was verified electronically.
[2016-06-03] MEDS: ENOXAPARIN SODIUM 150 MG/ML SYRINGE SQ SCH ×2 (06:22→14:10)
[2016-06-03] MEDS: LEVOTHYROXINE SODIUM 50 MCG TAB PO SCH (06:22)
[2016-06-03 06:53] LABS: HEMATOCRIT 26.5 % (39.0-51.0); MEAN CELL VOLUME 80.1 FL (80.0-100.0); MEAN CORPUSCULAR HEMOGLOBIN 24.9 PG (27.0-34.0); MEAN CORPUSCULAR HGB CONC 31.1 % (32.0-36.0); PLATELET COUNT 144 TH/MM3 (150-450); RED CELL DISTRIBUTION WIDTH 24.1 % (11.6-17.2)
[2016-06-03 06:56] LABS: HEMO FLAGS AUTO DIFF
[2016-06-03 07:24] LABS: ALKALINE PHOSPHATASE 83 U/L (45-117); ALT (GPT) 25 U/L (12-78); ANION GAP 6 MEQ/L (5-15); AST (GOT) 32 U/L (15-37); BICARBONATE 40.7 MEQ/L (21.0-32.0); BLOOD UREA NITROGEN 8 MG/DL (7-18); CHLORIDE 88 MEQ/L (98-107); GLOMERULAR FILTRATION RATE 669 ML/MIN (>89); SODIUM (NA) 135 MEQ/L (136-145); TOTAL BILIRUBIN ADULT 0.6 MG/DL (0.2-1.0)
[2016-06-03] MEDS: RESP: ALBUTEROL 2.5 MG/IPRATROPIUM 0.5 MG NEB (PRN) NEB ×2 (07:45→19:39)
[2016-06-03] MEDS: RESP: BUDESONIDE 0.5 MG/2 ML NEB NEB SCH ×2 (07:45→19:39)
[2016-06-03 08:15] LABS: BANDS 22 % (0-6); CORRECTED NUCLEATED RBC 1 /100 WBC (0-0); METAMYELOCYTES 6 % (0-1); MYELOCYTES 3 % (0-0); NEUTROPHIL # MANUAL DIFF 6.2 TH/MM3 (1.8-7.7); POLYS (SEG NEUTROPHILS) 46 % (16-70); WBC DIFF SAMPLE 100
[2016-06-03 08:17] LABS: PLATELET ESTIMATE SMEAR LOW (NORMAL); PLATELET MORPHOLOGY NORMAL (NORMAL); SCAN/DIFF FINAL DIFF MANUAL
[2016-06-03 08:18] LABS: STOMATOCYTES 1+ (NORMAL)
[2016-06-03] MEDS: SODIUM CHLORIDE 0.9% FLUSH 5 ML FLUSH FLUSH SCH ×2 (08:30→22:25)
[2016-06-03] MEDS: CHLORHEXIDINE 0.12% (ORAL KIT) 15 ML CUP MT SCH ×2 (08:30→22:27)
[2016-06-03] MEDS: MULTIVITAMIN TAB PO SCH (08:31)
[2016-06-03] MEDS: FENOFIBRATE 48 MG TAB PO SCH (08:31)
[2016-06-03] MEDS: DILTIAZEM HCL 90 MG TAB PO SCH ×4 (08:31→22:25)
[2016-06-03] MEDS: FAMOTIDINE 20 MG TAB PO SCH ×2 (08:31→22:25)
[2016-06-03] MEDS: MONTELUKAST SODIUM 10 MG TAB PO SCH (08:31)
[2016-06-03] MEDS: ATORVASTATIN 10 MG TAB PO SCH (08:31)
[2016-06-03] MEDS: FERROUS SULFATE 325 MG (65 MG ELEMENTAL IRON) TAB PO SCH (08:31)
[2016-06-03] MEDS: SERTRALINE HCL 100 MG TAB PO SCH (08:32)
[2016-06-03] MEDS: ALLOPURINOL 300 MG TAB PO SCH (08:32)
[2016-06-03] MEDS: POTASSIUM CHLOR 40 MEQ PREMIX 100 ML IV PRN ×2 (08:33→14:13)
[2016-06-03] MEDS ORDERED: MICONAZOLE NITRATE 2% CREAM 15 GM TOP SCH (09:00)
[2016-06-03] MEDS: COLLAGENASE OINT 30 GM TUBE TOP SCH (09:00)
[2016-06-03] MEDS: MICONAZOLE NITRATE 2% CREAM 15 GM TOP SCH ×2 (09:00→21:00)
--- NOTE | 2016-06-03 09:29 | RADRPT ---
EXAM DATE/TIME: 06/03/2016 08:10 [facility] COMPARISON: No previous studies available for comparison. INDICATIONS : Nausea and vomiting. MEDICAL HISTORY : Congestive heart failure. Hypertension. Hypothyroidism. Morbid obesity. Atrial fibrillation. Pulmona ry embolism. SURGICAL HISTORY : Tonsillectomy. Tracheostomy. ENCOUNTER: Subsequent ACUITY: 1 day PAIN SCORE: 0/10 LOCATION: Abdomen. MEASUREMENTS: LIVER: 25.6 cm length COMMON DUCT: 6 mm RIGHT KIDNEY: 14.5 x 7.9 x 9.0 cm SPLEEN: 16.1 cm length FINDINGS: LIVER: There is increased echogenicity of the liver parenchyma. No dilated biliary ducts are demonstrated. T here is no evidence of ascites. The portal system was difficult to visualize due to patient body habi tus.. COMMON DUCT: No intraluminal mass or stone visualized. GALLBLADDER: No definite echogenic gallstones are seen. However there does appear to be some sludge along the base of the gallbladder. The gallbladder wall is not thickened. There is no fluid around the gallbladder. PANCREAS: The visualized portions are within normal limits. RIGHT KIDNEY: No hydronephrosis, stone or mass. SPLEEN: No focal lesion. The spleen is enlarged. CONCLUSION: 1. There is some sludge in the gallbladder. This can be seen with chronic gallbladder disease. 2. Fatty infiltration of the liver which appears to be enlarged. 3. No mechanical biliary tract obstruction. 4. Splenomegaly. Lázaro Frankel MD on June 03, 2016 at 9:24 Board Certified Radiologist. This report was verified electronically.
[2016-06-03] MEDS ORDERED: Vancomycin Consult Pharmacy 1 EA OTHER SCH (10:30)
--- NOTE | 2016-06-03 10:35 | HHI.IDPN ---
Subjective Subjective Remarks ID Xcover for . Chart reviewed. Patient known to me from prior visits. 31 y/o Morbidly obese CM, with Chronic respiratory failure, prior h/o HCAP with MDR PSAE that are resistant to Cefepime and Zosyn. Reconsulted for fevers. Overnight events reviewed with RN. No fever Secretions white, thin per RN. No change in vent settings. On CPAP all day for many days. Patient reports no change in breathing effort. Opens eyes follows commands and mouths words. BP ok not on pressors. No rash No diarrhea. PICC line RUE discontinued. Antibiotics Colistin nebs Zerbaxa IV Vanco IV Lines PIVs Past Medical History Chronic Respiratory Failure s/p Tracheostomy 4 years ago Morbid Obesity w/ BMI 67.6 Atrial fibrillation Pulmonary embolism 4 years ago Anxiety CHF (Echo 06/07/2014 w/ EF 40-45%; ECHO 08/2015 showing a grossly normal systolic function) HTN Hypothyroidism Past Surgical History Tracheostomy Tonsillectomy Allergies: Coded Allergies: *MDRO Multi-Drug Resistant Organism (Verified Adverse Reaction, Unknown, 05/08/16) XDR Pseudomonas aeruginosa (sputum) - 09/18/15; (sputum & wound) - 04/27/16 Objective . Vital Signs Date Time Temp Pulse Resp B/P Pulse Ox O2 Delivery O2 Flow Rate FiO2 06/03/16 07:45 96 45 06/03/16 06:00 67 06/03/16 04:41 95 50 06/03/16 04:00 71 06/03/16 04:00 50 06/03/16 04:00 98.0 71 13 145/73 97 06/03/16 02:00 75 06/03/16 01:40 20 06/03/16 00:21 95 50 06/03/16 00:00 98.6 83 18 156/72 95 06/03/16 00:00 83 06/03/16 00:00 50 06/02/16 22:00 81 06/02/16 20:00 50 06/02/16 20:00 81 06/02/16 20:00 99.2 81 17 124/62 95 06/02/16 19:34 95 50 06/02/16 19:00 85 06/02/16 18:00 100 06/02/16 16:00 99.2 90 21 121/56 96 06/02/16 16:00 90 06/02/16 16:00 50 06/02/16 15:33 97 50 06/02/16 14:00 92 06/02/16 12:00 50 06/02/16 12:00 99.0 96 24 136/64 95 06/02/16 12:00 96 06/02/16 06/02/16 06/03/16 14:59 22:59 06:59 Intake Total 2208 ml 273 ml 42 ml Output Total 1600 ml 750 ml 2550 ml Balance 608 ml -477 ml -2508 ml Intake Oral 2000 ml 120 ml IV Total 208 ml 153 ml 42 ml Output Urine Total 1600 ml 750 ml 2550 ml # Bowel Movements 1 1 . Laboratory Tests Test 06/02/16 06/03/16 05:37 06:30 White Blood Count 7.9 TH/MM3 8.0 TH/MM3 Red Blood Count 3.21 MIL/MM3 3.30 MIL/MM3 Hemoglobin 8.1 GM/DL 8.2 GM/DL Hematocrit 25.7 % 26.5 % Mean Corpuscular Volume 80.0 FL 80.1 FL Mean Corpuscular Hemoglobin 25.3 PG 24.9 PG Mean Corpuscular Hemoglobin 31.7 % 31.1 % Concent Red Cell Distribution Width 24.7 % 24.1 % Platelet Count 210 TH/MM3 144 TH/MM3 Mean Platelet Volume 6.6 FL 6.8 FL Neutrophils (%) (Auto) % Lymphocytes (%) (Auto) % Monocytes (%) (Auto) % Eosinophils (%) (Auto) % Basophils (%) (Auto) % Neutrophils # (Auto) TH/MM3 Lymphocytes # (Auto) TH/MM3 Monocytes # (Auto) TH/MM3 Eosinophils # (Auto) TH/MM3 Basophils # (Auto) TH/MM3 CBC Comment AUTO DIFF Differential Total Cells 100 Counted Neutrophils % (Manual) 46 % Band Neutrophils % 22 % Lymphocytes % 15 % Monocytes % 8 % Neutrophils # (Manual) 6.2 TH/MM3 Metamyelocytes 6 % Myelocytes 3 % Nucleated Red Blood Cells 1 /100 WBC Differential Comment FINAL DIFF MANUAL Platelet Estimate LOW Platelet Morphology Comment NORMAL Stomatocytes 1+ Laboratory Tests Test 06/02/16 06/02/16 06/03/16 05:37 18:05 06:30 Sodium Level 130 MEQ/L 135 MEQ/L Potassium Level 3.2 MEQ/L 3.9 MEQ/L 3.0 MEQ/L Chloride Level 84 MEQ/L 88 MEQ/L Carbon Dioxide Level 41.2 MEQ/L 40.7 MEQ/L Anion Gap 5 MEQ/L 6 MEQ/L Blood Urea Nitrogen 9 MG/DL 8 MG/DL Creatinine 0.23 MG/DL 0.17 MG/DL Estimat Glomerular Filtration 472 ML/MIN 669 ML/MIN Rate Random Glucose 84 MG/DL 79 MG/DL Calcium Level 7.7 MG/DL 8.0 MG/DL Total Bilirubin 0.6 MG/DL Aspartate Amino Transf 32 U/L (AST/SGOT) Alanine Aminotransferase 25 U/L (ALT/SGPT) Alkaline Phosphatase 83 U/L Total Protein 5.2 GM/DL Albumin 2.0 GM/DL Microbiology Date/Time Procedure Status Source Growth 06/02/16 11:47 Aerobic Blood Culture Received Blood Line Pending 06/02/16 11:47 Anaerobic Blood Culture Received Blood Line Pending 06/02/16 12:25 Gram Stain - Final Resulted Sputum Oral Tracheal Aspirate 06/02/16 12:25 Sputum Culture Resulted Sputum Oral Tracheal Aspirate Pending 06/02/16 12:30 Aerobic Blood Culture - Preliminary Resulted Blood Line Gram Positive Cocci 06/02/16 12:30 Anaerobic Blood Culture - Preliminary Resulted Gram Positive Cocci 06/02/16 12:55 Gram Stain - Final Resulted Wound Ankle 06/02/16 12:55 Wound Culture Resulted Wound Ankle Pending 06/02/16 13:05 Urine Culture Worksheet Urine Catheterized Urine Pending 06/02/16 16:40 Aerobic Blood Culture Worksheet Blood Line Pending 06/02/16 16:40 Anaerobic Blood Culture Worksheet Blood Line Pending Imaging Chest X-Ray 05/20/16 0000 Signed Impressions: Service Date/Time: Friday, May 20, 2016 03:21 - CONCLUSION: Persistent mid and lower lung areas of consolidation or atelectasis being worse in the right. There has been mild improvement. Garcia Lujan MD Chest X-Ray 05/16/16 0600 Signed Impressions: Service Date/Time: April 03:21 - CONCLUSION: 1. Slight improvement in bilateral airspace disease over the last day. Horacio Gupta MD Chest X-Ray 05/15/16 0600 Signed Impressions: Service Date/Time: Sunday, May 15, 2016 04:31 - CONCLUSION: 1. Slight increase in airspace disease since May 13. Differential diagnosis includes pulmonary edema. Support apparatus unchanged. Horacio Gupta MD Chest X-Ray 05/13/16 0600 Signed Impressions: Service Date/Time: Friday, May 13, 2016 03:26 - CONCLUSION: 1. Stable exam compared with May 12 with bilateral mostly basilar airspace disease. Horacio Gupta MD Chest X-Ray 05/10/16 06 Signed Impressions: Service Date/Time: Tuesday, May 10, 2016 02:45 - CONCLUSION: Worsening right lower lobe infiltrate. Jeremiah Walton Jr., MD Chest X-Ray 05/09/16 06 Signed Impressions: Service Date/Time: April 02:52 - CONCLUSION: No significant change has occurred. Bill Zavala MD Chest X-Ray 05/08/16 06 Signed Impressions: Service Date/Time: Sunday, May 08, 2016 04:01 - CONCLUSION: No significant change has occurred. Bill Zavala MD Chest X-Ray 05/05/16 06 Signed Impressions: Service Date/Time: Thursday, May 05, 2016 01:56 - CONCLUSION: Improved aeration bilaterally particularly in the left upper lobe. Tube and catheter are stable. Amador Brock MD Chest X-Ray 05/03/16 0000 Signed Impressions: Service Date/Time: Tuesday, May 03, 2016 06:40 - CONCLUSION: Increasing bilateral diffuse pulmonary infiltrates compared to the prior study. Lázaro Frankel MD Upper Extremity Ultrasound 05/02/16 0000 Signed Impressions: Service Date/Time: April 20:51 - CONCLUSION: No DVT. Garcia Lujan MD Abdomen X-Ray 04/29/16 0000 Signed Impressions: Service Date/Time: Friday, April 29, 2016 07:12 - CONCLUSION: Suspect Dobbhoff tube in the distal stomach. Garcia Lujan MD Physical Exam GENERAL: Awake and alert, on CPAP, comfortable SKIN: Warm and moist. No generalized rash. HEENT: [place] conjunctivae. No scleral icterus. Moist mucosa. NECK: Short and obese, has trach, site ok. Supple, no meningeal signs. CARDIOVASCULAR: Regular rate and rhythm. Distant heart sounds. RESPIRATORY: Decreased BS bilaterally. GASTROINTESTINAL: Abdomen soft, morbidly obese, not tender, not distended. MUSCULOSKELETAL: Extremities without clubbing, cyanosis. Has mild pitting edema. NEUROLOGICAL: Awake and following, responding LINE: PICC in RUE, site ok, : [place] in place, urine looks clear Assessment & Plan Remarks IMPRESSION E.faecalis and Pseudomonas bacteremia: from PICC line site with fevers: CLABSI. Chronic respiratory failure, has new trach, ? HCAP - C/S with MDR PSAE, Cefepime resistant, Zosyn resistant. MDR PSAE PNA, S/P Rx Morbid obesity Sleep apnea Hx PE Anorexia RECOMMENDATION Continue Vanco IV (target trough 15-20) Started Zerbaxa IV (ASP: has known MDR PSAE and now has bacteremia. Will follow cultures and deescalate) Continue Colistin nebs. Will d/w Ortho about fluid collection around scapula as IR will not be able to do it. Sputum Cx reviewed. Not much secretions. Will only treat with Colistin given prior MDR and clinically stable at this point. Wound cultures reviewed: superficial cultures by Swab per [facility] orders. Will not treat as no e/o infection at sites. No erythema or induration surrounding it. Follow cultures Follow clinically. Margo Land MD Jun 03, 2016 10:35
[2016-06-03] MEDS: NYSTATIN 100,000 U/GM PWD 15 GM BTL TOPICAL SCH (10:48)
--- NOTE | 2016-06-03 10:57 | HHI.CCPN ---
Subjective Remarks/Hospital Course 31 year old morbidly obese (BMI 68) male with chronic respiratory failure s/p tracheostomy 4 years ago, atrial fibrillation and pulmonary embolism on Xarelto , COPD, CHF and h/o HTN. He presented from [facility] with low oxygen saturation apparently his oxygen saturation was 82% on RA. He was placed back on 6L of oxygen via his trach mask and given a breathing treatment, initially improved however he started drifting back to low 80s again. Chest x-ray showed bibasilar infiltrates and pulmonary edema. Patient was [facility] to [facility] and was started on IV steroids IV vancomycin and Zosyn and Levaquin for healthcare associated pneumonia. After starting ACV, patient was more awake but there was a significant amount of air leak around his tracheostomy. Patient has had a Shiley 6.0 Proximal XLT, but the state pilot balloon had been cut off. 05/02 the patient became acutely hypoxemic with a large cuff leak, underwent emergency trach exchange at bedside by Dr. Macias. FiO2 65% PEEP 14 05/13 Patient is on ventilator via trach, on Fentanyl infusion however he is awake and alert. On PRVC with FIO2 40%. Afebrile. 05/14 No acute events overnight. Tmax 99.8. Patient is awake, alert on ventilator via trach still requiring increase O2. On PRVC with PEEP: 10 and FIO2 70%. 05/15 patient acutely desaturated after he was found. Saturation went down to 70% on 100% oxygen. Bag and mask ventilation carried out, with eventual improvement on oxygen saturation to 85%. Patient was placed on PC/AC mode of ventilation, with PEEP of 15 and instructed to pressure of 30. Eventually oxygen saturation improved to 95%. Lasix him today as the chest x-ray from today shows increasing bilateral infiltrate and pulmonary edema. Also sputum culture will be sent 05/16 Patient is on Fentanyl and Diprivan infusion but awake and alert. Afebrile. On PC/AC with PEEP:15, IP: 22, IT:1.3 and FIO2 50% 05/17 Patient is off Diprivan and remains on Fentanyl infusion for sedation. On PC/AC with PEEP: down 10 and FIO2 40%. Afebrile. 05/18 Patient remains on ventilator via trach on PC/AC with PEEP:12, FIO2 40%, IP:22, IT:1.0. On Fentanyl infusion 05/19 No acute events overnight. On Fentanyl infusion but awake and alert. Afebrile. 05/20 Tolerating C Pap 17/12 FIO2 40, sats 98%. RSBI in 20s, appears can be weaned further. Afebrile. Speech therapy evaluated and ok for regular diet. Starting with full liquid. 05/21 Will wean PSV to 15/10. Tolerated full liquids, will advance to regular diet per speech recs. Subjective: 05/22 On PSV 15/10 FIO2 40 with sats 92%. Smiling today. Glad to be eating regular food again. 05/23 No acute events overnight. Remains on CPAP with PS 15, PEEP:10 and FIO2 40 %. Afebrile. Off Fentanyl drip. Afebrile. Awake and alert. 05/24 Patient is on CPAP 06/06 with 40% FIO2. Afebrile. Awake and alert, on no sedation. 05/25 No acute events overnight. Patient was placed back on PC/AC overnight. Tolerated CPAP trials during day yesterday. Awake and alert. On no drips. Afebrile. 05/26 Afebrile. Tmax 98.6. Today the patient complained of nausea requiring Zofran. The patient has a lack of an appetite, with noted hypoglycemia early this a.m. blood glucose level 69. Patient tolerating CPAP well greater than 12 hours in the last 24 hours. 05/27 The patient tolerated CPAP for over 36 hours, O2 sat a knee 94% on FIO2 40 %. The patient had an increase in appetite. The patient continues on full liquid diet. 05/28 The patient declined physical therapy treatment, yesterday and also overnight declined to be moved by nursing staff. The patient refused dinner last evening, of note patient was reevaluated by speech therapy and can consume a heart healthy diet with thin liquids. The patient continues on physical therapy for strengthening exercises of all extremities specifically noted right upper extremity continues to be weak with gross fibrillations noted in hand and forearm. 05/29 Afebrile. No change in right upper extremity weakness. The patient was seen by neurology yesterday plan for MRI today if possible in hospital MRI, and EMG studies. No complaints overnight. Patient continues to refuse to have activities performed, movement in bed. The patient appears to be depressed, psychiatry consulted. 05/30: Patient alert awake on CPAP. Following commands. Psych agrees the patient is depressed. MRI brain no acute findings 05/31: Awake alert. on PS 15/8. EMG could not be completed due to patient becoming anxious. Otherwise no acute events reported overnight 06/01: Remains PS from 11/02. Right upper extremity weakness persists. EMG to be repeated on Friday. Will need MRI of the brachial plexus. Chest x-ray is unchanged 06/02: States that "not feeling well". Febrile to 101.5. White count increasing but still within the normal range. Pancultured. We'll request ID reevaluation. 06/03: Resting in bed on C Pap/pressure support via tracheostomy. One out of 2 sets of blood cultures sent on 06/02 positive for gram-positive cocci Objective Vital Signs Date Time Temp Pulse Resp B/P Pulse Ox O2 Delivery O2 Flow Rate FiO2 06/03/16 07:45 96 45 06/03/16 06:00 67 06/03/16 04:00 98.0 13 145/73 Intake and Output 06/02/16 06/02/16 06/03/16 08:00 16:00 00:00 Intake Total 753 ml 2208 ml 273 ml Output Total 450 ml 1600 ml 750 ml Balance 303 ml 608 ml -477 ml Result Diagram: 06/03/1630 06/03/16 0630 Imaging Last Impressions Chest X-Ray 05/20/16 0000 Signed Impressions: Service Date/Time: Friday, May 20, 2016 03:21 - CONCLUSION: Persistent mid and lower lung areas of consolidation or atelectasis being worse in the right. There has been mild improvement. Garcia Lujan MD Upper Extremity Ultrasound 05/02/16 0000 Signed Impressions: Service Date/Time: April 20:51 - CONCLUSION: No DVT. Garcia Lujan MD Abdomen X-Ray 04/29/16 0000 Signed Impressions: Service Date/Time: Friday, April 29, 2016 07:12 - CONCLUSION: Suspect Dobbhoff tube in the distal stomach. Garcia Lujan MD Objective Remarks GENERAL: Patient is 31yo on ventilator via trach, awake and follows commands. Super Morbidly obese. Communicating appropriately SKIN: Warm and dry. HEAD: Normocephalic. EYES: No scleral icterus. No injection or drainage. NECK: Supple, trachea midline. Shiley 6.0 Proximal XLT, (new trach placed ) CARDIOVASCULAR:Tachycardic without murmurs, gallops, or rubs. RESPIRATORY: Breath sounds equal bilaterally. Distant secondary to habitus . On CPAP 11/02 GASTROINTESTINAL: Abdomen soft, obese, non-tender, nondistended. Multiple noted areas of ecchymotic bruising secondary to subcutaneous injections MUSCULOSKELETAL: No cyanosis, or edema. Pedal edema. Wound on lateral aspect of right lower leg above lateral malleolus , dressing C/D/I. 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 Neuro: Awake and alert. Moves all extremities with focal deficit right upper extremity as above. Date of Insertion: Apr 24, 2016 A/P Assessment and Plan ASSESSMENT Acute hypercapnic and hypoxemic respiratory failure Acute worsening of hypoxia due to lung de-recruitment 05/15/16 Healthcare associated pneumonia MDR Pseudomonas Sepsis CHF exacerbation CO2 narcosis Tracheostomy state pilot balloon damage -status post exchange with new Shiley 6.0 Proximal XLT 05/02/16 Chronic Respiratory Failure s/p Tracheostomy 4 years ago (Shiley 6.0 Proximal XLT) Probable right brachial plexus injury COPD/obesity hypoventilation syndrome Morbid Obesity BMI 67 History of pulmonary embolism 4 years ago Chronic atrial fibrillation Anxiety CHF (Echo 2013 EF 40-45%; ECHO 08/2015 showing a grossly normal systolic function) Hypertension Hypothyroidism PLAN NEURO: CO2 narcosis - resolved Critical care polyneuropathy Right upper extremity weakness 05/21-possibly secondary to nerve compression, C6 , C7 (brachial plexus) Pain Anxiety Depression -EMG could not be completed due to patient becoming anxious, attempt again on Friday per Dr. Castillo -Right upper extremity absence of triceps reflex, diminished sensation/numbness in C6-C7 dermatome level both anterior and posterior, inability for pronation, handgrip strength 2/5, lack of wrist extension/flexion. C6, C7 myotome pattern of muscle weakness.Positive shoulder abduction/adduction. -Clinically probably has right brachial plexus injury. MRI of brachial plexus- scheduled for 06/03 -Continued PT daily, with strengthening exercise (encouraged patient to participate) patient counseled on the importance. -Neurology Dr. Cheek-MRI brain C spine no acute findings. EMG study, right upper extremity -Venous Doppler RUE 05/28-negative for DVT -Psychiatric consultation-agrees patient is depressed, Added Seroquel. Continue Zoloft 50mg daily -On morphine 4 mg IV every 3 hours as needed for breakthrough pain. RESP: Acute hypercapnic and hypoxemic respiratory failure Acute lung derecruitment 05/15 with hypoxia Healthcare associated pneumonia Tracheostomy state pilot balloon damage (Shiley 6.0 Proximal XLT) s/p new trach placement 05/02 Chronic Respiratory Failure s/p Tracheostomy 4 years ago COPD/obesity hypoventilation syndrome History of pulmonary embolism 4 years ago Leukocytosis-resolved Pulmonary edema - Continue with vent support keep sat >90%. Currently on CPAP. Attempt TP/TC if PS can be reduced - PSV 15/8 50% and continue weaning as tolerated. Continue FIO2 .50% - s/p Bronchoscopy 05/11 -follow up on BAL results-negative - DuoNeb every 6 hours scheduled, q 2 prn. - Pulmicort BID (home med), Continue Singulair 10 mg po daily - Therapeutic Lovenox 150 mg every 12 hours, consider transition to Xarelto ( home med) upon planned discharge CV: CHF exacerbation Pulmonary edema Paroxysmal atrial fibrillation (chronic) Hyperlipidemia -Monitor HR and BP keep MAP>65mmHg -Systolic BP [id number], continue to monitor trend possible escalation of antihypertensive meds -on Cardizem 60mg QID -Continue Lipitor 10 g by mouth daily. -Continue TriCor 40 mg by mouth daily -Therapeutic Lovenox 150 mg twice a day GI: Super morbid obesity with BMI of 63 -Regular diet ,thin liquids per speech recs. Refusing meals due to lack of appetite, Nausea -Check GB US -On Pepcid 20mg BID -Multivitamin to medication regimen -Consider dietary supplementation FEN/RENAL: Hypokalemia - Monitor renal function , I/O. - Electrolytes replacement per protocol. - Bumex 1 mg IV q12 with KCL 40 q12 ID: Healthcare associated pneumonia Sepsis New fever MDRO Cellulitis right arm-resolved Leukocytosis-resolved GPC bacteremia (06/02) -Rocephin (05/12- 05/25) -Urine cx: Proteus Mirabilis 05/05 -Sputum cx: Providencia 05/05- resolved -Wound cx: 05/13 Proteus, Pseudomonas, Group D Enterococcus -Wound culture Pseudomonas MDR 04/27 -Sputum culture-Pseudomonas MDR- 04/27 -Bronchoscopy and re-culture 05/10 follow up on BAL results-neg to date -Follow up on sputum cx from 05/15- NGTD -Repeat cultures sent on 06/02 including wound culture from the right lower extremity wound -Started on IV vancomycin 06/03 for GPC in blood culture - possibly from PICC which will be removed after placement of Per IV. Continues on colistin nebs. ID following. HEME: History of PE on chronic anticoagulation with Xarelto Anemia, iron deficiency and anemia of critical illness. -Monitor CBC, -Xarelto for PE 4 yrs ago. -Xarelto.held, On therapeutic Lovenox 150 mg twice a day -Ferrous sulfate 300 mg/q day ENDO: Hypothyroidism -On SSI (Low scale) -Continue levothyroxine 50 mcg po daily -Free T4 1.52 PROPH: -Bilateral lower extremity SCDs. Lovenox DVT therapeutic dose. GI prophylaxis- Pepcid 20mg BID LINES: - PICC line RUE- No DVT on US 05/02 Out of bed with assistance. PT out of bed with vent. OT. Discussed with patient and RN at bedside. Bo Land MD Jun 03, 2016 10:57
[2016-06-03] MEDS: BUMETANIDE INJ 1 MG/4 ML VIAL IV PUSH SCH ×2 (11:38→22:26)
--- NOTE | 2016-06-03 11:41 | HHI.PYPN ---
Subjective Remarks Patient seen for evaluation today, interaction limited by patient's tracheostomy , he reports feeling much better today, denies any distress, pain, physical complains. He described his mood as improved, 9/10. He reports as improved sleep after taking Seroquel, without any significant side effects. Patient shares that he is hopeful that is only able to leave the hospital of his medical situation will improve. Patient denies suicidal, homicidal ideation, he denies visual hallucinations. Patient is oriented 3. Review of Systems Other No physical or somatic complaint Objective Alert: Yes [place]: Person, Place, Date, Situation Mood: Calm Affect: Euthymic Memory Intact: Immediate, Recent, Remote Hallucinations: Other (he denies) Delusions: No Delusion Type: Other (no observed) Suicidal: Ideation (he denies) Homicidal: Ideation (he denies) Insight/Judgement Good Labs Test 06/02/16 06/02/16 06/03/16 13:05 18:05 06:30 Urine Color LIGHT-YELLOW Urine Turbidity HAZY Urine pH 7.0 Urine Specific [place] 1.005 Urine Protein NEG mg/dL Urine Glucose (UA) NEG mg/dL Urine Ketones NEG mg/dL Urine Occult Blood NEG Urine Nitrite NEG Urine Bilirubin NEG Urine Urobilinogen LESS THAN 2.0 MG/DL Urine Leukocyte Esterase NEG Urine WBC 1 /hpf Urine Calcium Oxalate Crystals FEW /hpf Urine Amorphous Sediment FEW Urine Mucus FEW /lpf Urine Yeast (Budding) RARE Microscopic Urinalysis Comment Potassium Level 3.9 MEQ/L 3.0 MEQ/L White Blood Count 8.0 TH/MM3 Red Blood Count 3.30 MIL/MM3 Hemoglobin 8.2 GM/DL Hematocrit 26.5 % Mean Corpuscular Volume 80.1 FL Mean Corpuscular Hemoglobin 24.9 PG Mean Corpuscular Hemoglobin 31.1 % Concent Red Cell Distribution Width 24.1 % Platelet Count 144 TH/MM3 Mean Platelet Volume 6.8 FL Neutrophils (%) (Auto) % Lymphocytes (%) (Auto) % Monocytes (%) (Auto) % Eosinophils (%) (Auto) % Basophils (%) (Auto) % Neutrophils # (Auto) TH/MM3 Lymphocytes # (Auto) TH/MM3 Monocytes # (Auto) TH/MM3 Eosinophils # (Auto) TH/MM3 Basophils # (Auto) TH/MM3 CBC Comment AUTO DIFF Differential Total Cells 100 Counted Neutrophils % (Manual) 46 % Band Neutrophils % 22 % Lymphocytes % 15 % Monocytes % 8 % Neutrophils # (Manual) 6.2 TH/MM3 Metamyelocytes 6 % Myelocytes 3 % Nucleated Red Blood Cells 1 /100 WBC Differential Comment FINAL DIFF MANUAL Platelet Estimate LOW Platelet Morphology Comment NORMAL Stomatocytes 1+ Sodium Level 135 MEQ/L Chloride Level 88 MEQ/L Carbon Dioxide Level 40.7 MEQ/L Anion Gap 6 MEQ/L Blood Urea Nitrogen 8 MG/DL Creatinine 0.17 MG/DL Estimat Glomerular Filtration 669 ML/MIN Rate Random Glucose 79 MG/DL Calcium Level 8.0 MG/DL Total Bilirubin 0.6 MG/DL Aspartate Amino Transf 32 U/L (AST/SGOT) Alanine Aminotransferase 25 U/L (ALT/SGPT) Alkaline Phosphatase 83 U/L Total Protein 5.2 GM/DL Albumin 2.0 GM/DL Date/Time Procedure Status Source Growth 06/03/16 10:45 Aerobic Blood Culture Received Blood Line Pending 06/03/16 10:45 Anaerobic Blood Culture Received Blood Line Pending 06/02/16 16:40 Aerobic Blood Culture - Preliminary Resulted Blood Line NO GROWTH IN 1 DAY 06/02/16 16:40 Anaerobic Blood Culture - Preliminary Resulted Blood Line NO GROWTH IN 1 DAY 06/02/16 13:05 Urine Culture Worksheet Urine Catheterized Urine Pending 06/02/16 12:55 Gram Stain - Final Resulted Wound Ankle 06/02/16 12:55 Wound Culture Resulted Wound Ankle Pending Vitals/IOs Vital Signs Date Time Temp Pulse Resp B/P Pulse Ox O2 Delivery O2 Flow Rate FiO2 06/03/16 07:45 96 45 06/03/16 06:00 67 06/03/16 04:00 98.0 13 145/73 Intake and Output 06/02/16 06/02/16 06/03/16 08:00 16:00 00:00 Intake Total 753 ml 2208 ml 273 ml Output Total 450 ml 1600 ml 750 ml Balance 303 ml 608 ml -477 ml Assessment & Plan Problem List: (1) MDD (major depressive disorder) ICD Code: F32.9 (2) Adjustment disorder with depressed mood Assessment & Plan: Today patient shows this improved mood, his affect is brighter, he denies depressive symptoms, he denies suicidal ideation. Patient shows good response to psychotropic management, no significant side effects. Extensive support, motivational psycho education provided. Continue follow-up. ICD Code: F43.21 Assessment & Plan Estimated LOS: days Problem Qualifiers (1) MDD (major depressive disorder): Qualified Code: F33.2 - Severe episode of recurrent major depressive disorder, without psychotic features Porter Dotson MD Jun 03, 2016 11:40
[2016-06-03] MEDS ORDERED: GADODIAMIDE PF 287 MG/ML 20 ML VIAL (for RAD MRI) IV ONE (12:42)
[2016-06-03] MEDS: VANCOMYCIN INJ 2,000 MG in SODIUM CHLORID 0.9% 500 ML INJ 500 ML IV SCH (14:09)
[2016-06-03] MEDS: POTASSIUM CHLORIDE 20 MEQ CONTROLLED RELEASE TAB PO SCH ×2 (14:27→22:25)
--- NOTE | 2016-06-03 15:21 | RADRPT ---
EXAM DATE/TIME: 06/03/2016 12:42 [facility] COMPARISON: CHEST SINGLE AP, June 03, 2016, 3:22. INDICATIONS : Extremity numbness. Right arm tingling, weak, and painful. CONTRAST: 40 cc Omniscan (gadodiamide) IV MEDICAL HISTORY : Congestive heart failure. PE. Chronic respiratory failure. Morbid obesity. A-fib. SURGICAL HISTORY : Tonsillectomy. Tracheostomy. ENCOUNTER: Subsequent ACUITY: 1 month PAIN SCORE: 6/10 LOCATION: Right arm TECHNIQUE: Multiplanar, multisequence MRI examination of the brachial plexus was performed without contrast and after intravenous administration of gadolinium. FINDINGS: Today's examination there is a complex multiloculated soft tissue and cystic mass measuring approxima tely 5.5 x 6.0 x 7.8 cm which appears to be involving predominantly the subscapularis muscle along th e anterior scapula. There is nonspecific edema in the surrounding soft tissue and muscles in this loc ation. There is normal signal within the bony structures of the right shoulder. No bone marrow edema is demonstrated in the scapula or proximal humerus. There does not appear to be any significant right shoulder joint effusion. The region of the brachial plexus is grossly unremarkable. The neural/vascu lar bundle appears to be surrounded by adipose tissue. There appears to be parenchymal infiltrates in the right lung. CONCLUSION: There is a complex multiloculated soft tissue and cystic mass measuring approximately 5.5 x 6.0 x 7.8 cm involving the subscapularis muscle along the anterior right scapula. The differential considerat ions include neoplastic disease, infection and hematoma. Recommend a CT scan of the right shoulder to pre-plan for CT-guided aspiration/biopsy of this abnormality. Lázaro Frankel MD on June 03, 2016 at 15:09 Board Certified Radiologist. This report was verified electronically.
--- NOTE | 2016-06-03 18:10 | HHI.FPPN ---
Subjective Remarks Mr. Fortune was afebrile with stable vital signs overnight. Per EMR, patient had 41cc/hr urine output; decreased significantly from previously. Patient visited in evening; patient reports understanding at his positive culture results; [facility] report PICC will be removed this evening. Patient counseled regarding MRI brachial plexus results and need for additional evaluation; he requests that CT be performed tomorrow morning rather than tonight. Patient denies respiratory complaints. Patient denies pain. Objective Vitals Vital Signs Date Time Temp Pulse Resp B/P Pulse Ox O2 Delivery O2 Flow Rate FiO2 06/03/16 15:52 96 50 06/03/16 13:49 100 100 06/03/16 13:49 92 50 06/03/16 08:00 97.8 75 16 158/72 96 06/03/16 08:00 50 06/03/16 07:45 96 45 06/03/16 06:00 67 06/03/16 04:41 95 50 06/03/16 04:00 71 06/03/16 04:00 50 06/03/16 04:00 98.0 71 13 145/73 97 06/03/16 02:00 75 06/03/16 01:40 20 06/03/16 00:21 95 50 06/03/16 00:00 98.6 83 18 156/72 95 06/03/16 00:00 83 06/03/16 00:00 50 06/02/16 22:00 81 06/02/16 20:00 50 06/02/16 20:00 81 06/02/16 20:00 99.2 81 17 124/62 95 06/02/16 19:34 95 50 06/02/16 19:00 85 I/O 06/02/16 06/02/16 06/02/16 06/03/16 06/03/16 06/03/16 07:00 15:00 23:00 07:00 15:00 23:00 Intake Total 1470 ml 2208 ml 273 ml 42 ml 551 ml Output Total 2500 ml 1600 ml 750 ml 2550 ml 1050 ml Balance -1030 ml 608 ml -477 ml -2508 ml -499 ml Intake Oral 1400 ml 2000 ml 120 ml 400 ml IV Total 70 ml 208 ml 153 ml 42 ml 151 ml Output Urine Total 2500 ml 1600 ml 750 ml 2550 ml 1050 ml # Bowel Movements 1 1 1 1 Result Diagram: 06/03/16 0630 06/03/16 0630 Imaging Last Impressions Chest X-Ray 06/03/16 0600 Signed Impressions: Service Date/Time: Friday, June 03, 2016 03:22 - CONCLUSION: 1. Cardiomegaly with bilateral pulmonary edema. 2. Moderate right pleural effusion. Vishnu Woodward MD Liver Ultrasound 06/03/16 0000 Signed Impressions: Service Date/Time: Friday, June 03, 2016 08:10 - CONCLUSION: 1. There is some sludge in the gallbladder. This can be seen with chronic gallbladder disease. 2. Fatty infiltration of the liver which appears to be enlarged. 3. No mechanical biliary tract obstruction. 4. Splenomegaly. Lázaro Frankel MD Brachial Plexus MRI 06/03/16 0000 Signed Impressions: Service Date/Time: Friday, June 03, 2016 12:42 - CONCLUSION: There is a complex multiloculated soft tissue and cystic mass measuring approximately 5.5 x 6.0 x 7.8 cm involving the subscapularis muscle along the anterior right scapula. The differential considerations include neoplastic disease, infection and hematoma. Recommend a CT scan of the right shoulder to pre-plan for CT-guided aspiration/biopsy of this abnormality. Lázaro Frankel MD Cervical Spine MRI 05/29/16 0000 Signed Impressions: Service Date/Time: Sunday, May 29, 2016 13:51 - CONCLUSION: Limited study but appears normal. Vishnu Woodward MD Brain MRI 05/29/16 0000 Signed Impressions: Service Date/Time: Sunday, May 29, 2016 13:51 - CONCLUSION: 1. Focal chronic ischemic change in the high right frontal parietal convexity stable from previous CT scan. 2. No acute intracranial abnormality. 3. Minimal nonspecific white matter changes. Vishnu Woodward MD Upper Extremity Ultrasound 05/28/16 0000 Signed Impressions: Service Date/Time: Saturday, May 28, 2016 10:16 - CONCLUSION: 1. Negative for deep venous thrombosis. Venous line noted in cephalic, subclavian and internal jugular vein. Horacio Gupta MD Abdomen X-Ray 04/29/16 0000 Signed Impressions: Service Date/Time: Friday, April 29, 2016 07:12 - CONCLUSION: Suspect Dobbhoff tube in the distal stomach. Garcia Lujan MD Objective Remarks GEN: Morbidly obese male. DERM: Warm and dry. Venous stasis changes lower regions. Nails bitten down. Yellow ecchymosis periumbilical region and R pannus. No erythema or skin breakdown. Numerous skin folds 2/2 habitus. HEENT: Tracheotomy site c/d/i CV: Distant heart sounds. RRR. Normal peripheral perfusion. RESP: T-piece in place. FIO2 50. Transmitted upper respiratory sounds. No wheezing GI: Abdomen soft, obese, non-tender. Normal BS MSK: Lower extremity edema present bilaterally. No calf tenderness. NEURO: Grossly normal cranial nerves. Upper extremities not examined this visit. Date of Insertion: Apr 24, 2016 A/P Assessment and Plan 31y male w chronic respiratory failure s/p tracheostomy 4 years ago and Pickwickian/hypoventilation syndrome (BMI 68) admitted from rehab facility for treatment of hypoxia and PNA with IV antibiotics and supportive care. Discharge Planning Days, pending weaning from mechanical ventilation with stable clinical status. Ideally, return to long-term rehab facility. If qualifies, could consider tank terminal gauger vent facility depending on status. Problem List: (1) Fever Status: Acute Plan: - Per Infectious disease Consult -Vancomycin IV -Continue Colistin nebulizers - Acetaminophen 325mg PRN fever Impression: Febrile to 101.5 on 06/01. ID workup performed to determine potential source: - Blood culture x2 (06/02) - -1) Enterococcus Faecalis & Gram+ cocci (anaerobe) at 24 hrs (06/03) -2) Negative at 24 hrs - U/A + Urine culture (06/02) - Gram - carmencita at 24 hrs (06/03) - Sputum culture (06/02) - Gram - carmencita at 24 hrs (06/03) - CXR - Cardiomegaly with bilateral pulmonary edema. Moderate R pleural effusion. (2) Weakness of extremity Status: Chronic Plan: -Neurology, rehabilitative medicine, and ID consulted; appreciate recommendations: - Repeat EMG planned for 06/03; will await results - MRI brachial plexus demonstrative of "complex multiloculated soft tissue and cystic mass measuring approximately 5.5 x 6.0 x 7.8 cm involving the subscapularis muscle along the anterior right scapula. The differential considerations include neoplastic disease, infection and hematoma." -CT pending per Radiology recommendation -Will consult IR for pathology/ culture of tissue -Orthopedic surgery consulted -Continue PT/OT, appreciate recommendations - Continue RUE PT- consider prophylactic Zofran PRN and Oxycodone 7.5mg PRN prior to PT - Continue OT, focusing LUE with goal of feeding self. Requested nursing assistance with feeding. Monitor weight loss Impression: RUE weakness that began during hospitalization. Ddx: C6-C7 radiculopathy vs mixed cervical plexopathy vs deconditioning. Prior to hospitalization, pt was able to transfer to wheelchair and feed self. US negative for DVT (05/28). MRI brain (04/28) no acute intracranial process- ruled out L hemispheric event as cause MRI C-spine wnl (05/29) EEG (05/29): diffuse mild encephalopathy vs normal Stage 2 sleep (3) On mechanically assisted ventilation Status: Acute Plan: - Critical care consulted, appreciate recommendations and help with management - On trach T-piece; CPAP (PS 15, PEEP 8, FiO2 50%) - Pulmicort BID, Duonebs q2h PRN, Singulair 10mg daily Impression: Acute on chronic hypoxemic respiratory failure secondary to HCAP ( resolved) and tracheostomy leak (s/p exchange 05/02). At baseline, uses 6L NC at rehab facility. Placed on mechanical ventilation 04/24; critical care managing weaning. Solumedrol course with taper completed (05/10-06/03). (4) MDD (major depressive disorder) Status: Chronic Plan: -Psych consulted, appreciate recommendations - Sertraline 100 mg PO daily - Seroquel 100mg as adjuvant Impression: Patient reports stable mood; some anhedonia suspected. Previously, patient reportedly been refusing meals, refusal to shower, and refusal of PT (5) Nausea Status: Chronic Plan: - Zofran 4mg q6h PRN - Compazine 5mg q8h PRN Impression: Chronic. Refusal PT 2/2 nausea (05/28). Emesis x1 (05/29). Difficulty w PT 2/2 nausea (05/31). Ddx: medication side effect vs psychosomatic vs GERD vs ulcer. (6) HTN (hypertension) Status: Chronic Plan: -Cardiazem to 90mg QID, b/p moderately-controlled (7) CHF (congestive heart failure) Status: Chronic Plan: -Continue -Bumex 1mg IV + 40 KCl BID, monitor I/Os, CC actively managing diuresis Impression: Likely HF with poor EF, though unable to confirm via ECHO (04/25/16 ) secondary to poor imaging . EF unknown. BNP was elevated to 400, decreasing. (8) Normocytic anemia Status: Chronic Plan: - Ferrous sulfate 325mg PO daily - Multivitamin 1 tab PO daily Impression: Secondary to chronic illness vs iron deficiency vs hypoxia. Hemoccult neg. MCV ~80. H/H ~02/23. Iron low: 32. TIBC wnl. % saturation low ( 10). (9) History of DVT (deep vein thrombosis) Status: Acute Plan: -Lovenox 150 U BID for therapeutic treatment while in hospital. Hold home Xarelto. (10) Stable medical conditions Status: Chronic Plan: MORBID OBESITY WITH BMI 60-69 -see above plan for mechanical ventilation HYPOTHYROIDISM 08/2015- TSH low, free T4 grossly wnl (05/27/16) -Synthroid 50 mcg PO daily FUNGAL INFECTION -Nystatin powder and miconazole creme to skin folds GOUT -Allopurinol 300mg daily HYPERLIPIDEMIA -Atorvastatin 10mg daily and Tricor 48mg daily INSOMNIA -Zolpidem 5mg HS PRN PAROXYSMAL AFIB - Xarelto while on therapeutic Lovenox. EKG 05/17: sinus rhythm. RESOLVED CONDITIONS THIS HOSPITAL VISIT - Cellulitis of Chest Wall: completed course linezolid (05/06-05/13), per ID recs - Yeast UTI: completed course Diflucan. UCx 05/01: Dionne albicans. Repeat UCx 05/05: Proteus Mirabilis () HCAP (healthcare-associated pneumonia) Status: Resolved Plan: Impression: S/p numerous antibiotics. Sputum culture 04/27: resistant pseudomonas (04/27). Repeat SCx 05/10 neg. BCx no growth (05/01, 05/03, 05/04). Patient with + blood, sputum, and urine cultures as of 06/03 suspected secondary to PICC infection; will monitor respiratory status and consider antibiotic broadening CXR with R pleural effusion as of 06/03 -Continue Colistin nebulizers per ID -Continue Vancomycin per ID Abx History Zosyn 4.5gm IV q6h (04/24 - 04/29) Levaquin 750mg IV q24h (04/24-04/30) Zerbaxa 1.5 g IV q8h (04/29 - 05/07) Vancomycin IV (04/24 - 05/06) Ceftriaxone IV (05/07 - 05/25) Linezolid 600 mg PO BID (05/06 - 05/13) (12) Nutrition, metabolism, and development symptoms Status: Acute Plan: FEN: Fluids: PO Electrolytes: receiving 40KCl with Bumex -Monitor and replete as needed Nutrition: 2Kcal heart healthy diet PPX: Speech (05/28) signed off. Transition to oral feeds (05/29). Weight on admission: 218kg (480 lbs). Wt 06/01- (446 lbs). Continue monitor, encourage, modify/restrict diet, as appropriate GI ppx: Famotidine 20mg BID DVT PPx: Therapeutic Lovenox 150mg SQ BID Pain: Oxycodone 7.5/325 q4 PRN RUE pain Bowels: Senna 2 tab HS REYES + Colase PRN Problem Qualifiers (1) MDD (major depressive disorder): Qualified Code: F33.2 - Severe episode of recurrent major depressive disorder, without psychotic features (2) HTN (hypertension): Qualified Code: I10 - Essential hypertension (3) CHF (congestive heart failure): Qualified Code: I50.9 - Acute on chronic congestive heart failure, unspecified congestive heart failure type Cody Kelly MD R2 Jun 03, 2016 18:10
[2016-06-03] MEDS: DOCUSATE SODIUM 50 MG/SENNA 8.6 MG TAB PO SCH (21:00)
[2016-06-03] MEDS: QUEtiapine FUMARATE 100 MG TAB PO SCH (22:25)
[2016-06-04] VITALS (19 sets, daily range): BP systolic 125–143; BP diastolic 59–71; PULSE 82–93; RESP 15–24; TEMP 98–98.8; O2SAT 95–100
[2016-06-04] MEDS: RESP: COLISTIN 150 MG VIAL NEB SCH ×4 (00:32→23:25)
[2016-06-04] MEDS: VANCOMYCIN INJ 2,000 MG in SODIUM CHLORID 0.9% 500 ML INJ 500 ML IV SCH ×2 (01:20→13:11)
[2016-06-04] MEDS: NYSTATIN 100,000 U/GM PWD 15 GM BTL TOPICAL SCH ×3 (01:20→20:31)
[2016-06-04] MEDS: ZOLPIDEM TARTRATE 5 MG TAB PO PRN (01:20)
[2016-06-04 04:43] LABS: AUTOMATED NEUTROPHIL # 6.1 TH/MM3 (1.8-7.7); BASOPHIL % 0.5 % (0.0-2.0); EOSINOPHIL # 0.2 TH/MM3 (0-0.4); EOSINOPHIL % 1.7 % (0.0-4.0); HEMATOCRIT 27.3 % (39.0-51.0); LYMPH % 18.4 % (9.0-44.0); LYMPHOCYTE # 1.7 TH/MM3 (1.0-4.8); MEAN CELL VOLUME 81.1 FL (80.0-100.0); MEAN CORPUSCULAR HEMOGLOBIN 24.8 PG (27.0-34.0); MEAN CORPUSCULAR HGB CONC 30.6 % (32.0-36.0); MONO % 11.4 % (0.0-8.0); PLATELET COUNT 230 TH/MM3 (150-450); RED BLOOD COUNT 3.37 MIL/MM3 (4.50-5.90); RED CELL DISTRIBUTION WIDTH 24.4 % (11.6-17.2)
[2016-06-04 05:00] LABS: BICARBONATE 36.7 MEQ/L (21.0-32.0); POTASSIUM 3.4 MEQ/L (3.5-5.1)
[2016-06-04 05:04] LABS: HEMO FLAGS AUTO DIFF
[2016-06-04] MEDS: ENOXAPARIN SODIUM 150 MG/ML SYRINGE SQ SCH ×2 (06:15→16:28)
[2016-06-04] MEDS: LEVOTHYROXINE SODIUM 50 MCG TAB PO SCH (06:15)
[2016-06-04 06:54] LABS: BANDS 3 % (0-6); CORRECTED NUCLEATED RBC 1 /100 WBC (0-0); EOSINOPHILS 1 % (0-4); METAMYELOCYTES 6 % (0-1); MYELOCYTES 3 % (0-0); NEUTROPHIL # MANUAL DIFF 6.8 TH/MM3 (1.8-7.7); POLYS (SEG NEUTROPHILS) 63 % (16-70); PROMYELOCYTES 1 % (0-0); WBC DIFF SAMPLE 100
[2016-06-04 06:55] LABS: PLATELET ESTIMATE SMEAR NORMAL (NORMAL); PLATELET MORPHOLOGY NORMAL (NORMAL); SCAN/DIFF FINAL DIFF MANUAL
[2016-06-04] MEDS: RESP: BUDESONIDE 0.5 MG/2 ML NEB NEB SCH ×2 (07:38→20:52)
[2016-06-04] MEDS: MONTELUKAST SODIUM 10 MG TAB PO SCH (08:10)
[2016-06-04] MEDS: CHLORHEXIDINE 0.12% (ORAL KIT) 15 ML CUP MT SCH ×2 (08:10→20:30)
[2016-06-04] MEDS: MULTIVITAMIN TAB PO SCH (08:10)
[2016-06-04] MEDS: FENOFIBRATE 48 MG TAB PO SCH (08:10)
[2016-06-04] MEDS: FAMOTIDINE 20 MG TAB PO SCH ×2 (08:10→20:30)
[2016-06-04] MEDS: ATORVASTATIN 10 MG TAB PO SCH (08:10)
[2016-06-04] MEDS: FERROUS SULFATE 325 MG (65 MG ELEMENTAL IRON) TAB PO SCH (08:11)
[2016-06-04] MEDS: DILTIAZEM HCL 90 MG TAB PO SCH ×4 (08:11→20:30)
[2016-06-04] MEDS: SODIUM CHLORIDE 0.9% FLUSH 5 ML FLUSH FLUSH SCH ×2 (08:11→20:30)
[2016-06-04] MEDS: ALLOPURINOL 300 MG TAB PO SCH (08:11)
--- NOTE | 2016-06-04 08:43 | HHI.CCPN ---
Subjective Remarks/Hospital Course 31 year old morbidly obese (BMI 68) male with chronic respiratory failure s/p tracheostomy 4 years ago, atrial fibrillation and pulmonary embolism on Xarelto , COPD, CHF and h/o HTN. He presented from [facility] with low oxygen saturation apparently his oxygen saturation was 82% on RA. He was placed back on 6L of oxygen via his trach mask and given a breathing treatment, initially improved however he started drifting back to low 80s again. Chest x-ray showed bibasilar infiltrates and pulmonary edema. Patient was [facility] the [facility] and was started on IV steroids IV vancomycin and Zosyn and Levaquin for healthcare associated pneumonia. After starting ACV, patient was more awake but there was a significant amount of air leak around his tracheostomy. 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 05/02 the patient became acutely hypoxemic with a large cuff leak, underwent emergency trach exchange at bedside by Dr. Macias. FiO2 65% PEEP 14 05/13 Patient is on ventilator via trach, on Fentanyl infusion however he is awake and alert. On PRVC with FIO2 40%. Afebrile. 05/14 No acute events overnight. Tmax 99.8. Patient is awake, alert on ventilator via trach still requiring increase O2. On PRVC with PEEP: 10 and FIO2 70%. 05/15 patient acutely desaturated after he was found. Saturation went down to 70% on 100% oxygen. Bag and mask ventilation carried out, with eventual improvement on oxygen saturation to 85%. Patient was placed on PC/AC mode of ventilation, with PEEP of 15 and instructed to pressure of 30. Eventually oxygen saturation improved to 95%. Lasix him today as the chest x-ray from today shows increasing bilateral infiltrate and pulmonary edema. Also sputum culture will be sent 05/16 Patient is on Fentanyl and Diprivan infusion but awake and alert. Afebrile. On PC/AC with PEEP:15, IP: 22, IT:1.3 and FIO2 50% 05/17 Patient is off Diprivan and remains on Fentanyl infusion for sedation. On PC/AC with PEEP: down 10 and FIO2 40%. Afebrile. 05/18 Patient remains on ventilator via trach on PC/AC with PEEP:12, FIO2 40%, IP:22, IT:1.0. On Fentanyl infusion 05/19 No acute events overnight. On Fentanyl infusion but awake and alert. Afebrile. 05/20 Tolerating C Pap 17/12 FIO2 40, sats 98%. RSBI in 20s, appears can be weaned further. Afebrile. Speech therapy evaluated and ok for regular diet. Starting with full liquid. 05/21 Will wean PSV to 15/10. Tolerated full liquids, will advance to regular diet per speech recs. Subjective: 05/22 On PSV 15/10 FIO2 40 with sats 92%. Smiling today. Glad to be eating regular food again. 05/23 No acute events overnight. Remains on CPAP with PS 15, PEEP:10 and FIO2 40 %. Afebrile. Off Fentanyl drip. Afebrile. Awake and alert. 05/24 Patient is on CPAP 06/06 with 40% FIO2. Afebrile. Awake and alert, on no sedation. 05/25 No acute events overnight. Patient was placed back on PC/AC overnight. Tolerated CPAP trials during day yesterday. Awake and alert. On no drips. Afebrile. 05/26 Afebrile. Tmax 98.6. Today the patient complained of nausea requiring Zofran. The patient has a lack of an appetite, with noted hypoglycemia early this a.m. blood glucose level 69. Patient tolerating CPAP well greater than 12 hours in the last 24 hours. 05/27 The patient tolerated CPAP for over 36 hours, O2 sat a knee 94% on FIO2 40 %. The patient had an increase in appetite. The patient continues on full liquid diet. 05/28 The patient declined physical therapy treatment, yesterday and also overnight declined to be moved by nursing staff. The patient refused dinner last evening, of note patient was reevaluated by speech therapy and can consume a heart healthy diet with thin liquids. The patient continues on physical therapy for strengthening exercises of all extremities specifically noted right upper extremity continues to be weak with gross fibrillations noted in hand and forearm. 05/29 Afebrile. No change in right upper extremity weakness. The patient was seen by neurology yesterday plan for MRI today if possible in hospital MRI, and EMG studies. No complaints overnight. Patient continues to refuse to have activities performed, movement in bed. The patient appears to be depressed, psychiatry consulted. 05/30: Patient alert awake on CPAP. Following commands. Psych agrees the patient is depressed. MRI brain no acute findings 05/31: Awake alert. on PS 11/02. EMG could not be completed due to patient becoming anxious. Otherwise no acute events reported overnight 06/01: Remains PS from 11/02. Right upper extremity weakness persists. EMG to be repeated on Friday. Will need MRI of the brachial plexus. Chest x-ray is unchanged 06/02: States that "not feeling well". Febrile to 101.5. White count increasing but still within the normal range. Pancultured. We'll request ID reevaluation. 06/03: Resting in bed on C Pap/pressure support via tracheostomy. One out of 2 sets of blood cultures sent on 06/02 positive for gram-positive cocci. 06/04: Resting in bed on mechanical ventilation via tracheostomy. Afebrile overnight. MRI brachial plexus (06/03) revealed a collection near the right subscapularis muscle, possibly an abscess. Discussed with ID, orthopedics Dr. Velazquez consulted. I discussed the case with Dr. Velazquez this morning who feels this is probably an abscess however would be difficult to access surgically and he plans to set up percutaneous drainage by interventional radiology. Objective Vital Signs Date Time Temp Pulse Resp B/P Pulse Ox O2 Delivery O2 Flow Rate FiO2 06/04/16 07:38 100 50 06/04/16 06:00 84 06/04/16 04:00 98.3 15 125/59 Intake and Output 06/03/16 06/03/16 06/04/16 08:00 16:00 00:00 Intake Total 42 ml 551 ml 587 ml Output Total 2550 ml 1050 ml 600 ml Balance -2508 ml -499 ml -13 ml Result Diagram: 06/04/16 0342 06/04/16 0342 Imaging Last Impressions Chest X-Ray 05/20/16 0000 Signed Impressions: Service Date/Time: Friday, May 20, 2016 03:21 - CONCLUSION: Persistent mid and lower lung areas of consolidation or atelectasis being worse in the right. There has been mild improvement. Garcia Lujan MD Upper Extremity Ultrasound 05/02/16 0000 Signed Impressions: Service Date/Time: April 20:51 - CONCLUSION: No DVT. Garcia Lujan MD Abdomen X-Ray 04/29/16 0000 Signed Impressions: Service Date/Time: Friday, April 29, 2016 07:12 - CONCLUSION: Suspect Dobbhoff tube in the distal stomach. Garcia Lujan MD Objective Remarks GENERAL: Patient is 31yo on ventilator via trach, awake and follows commands. Super Morbidly obese. Communicating appropriately SKIN: Warm and dry. HEAD: Normocephalic. EYES: No scleral icterus. No injection or drainage. NECK: Supple, trachea midline. Shiley 6.0 Proximal XLT, (new trach placed ) CARDIOVASCULAR:Tachycardic without murmurs, gallops, or rubs. RESPIRATORY: Breath sounds equal bilaterally. Distant secondary to habitus . On CPAP 11/02 GASTROINTESTINAL: Abdomen soft, obese, non-tender, nondistended. Multiple noted areas of ecchymotic bruising secondary to subcutaneous injections MUSCULOSKELETAL: No cyanosis, or edema. Pedal edema. Wound on lateral aspect of right lower leg above lateral malleolus , dressing C/D/I. 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 Neuro: Awake and alert. Moves all extremities with focal deficit right upper extremity as above. 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 -status post exchange with new Shiley 6.0 Proximal XLT 05/02/16 Chronic Respiratory Failure s/p Tracheostomy 4 years ago (Shiley 6.0 Proximal XLT) Probable right brachial plexus injury COPD/obesity hypoventilation syndrome Morbid Obesity BMI 67 History of pulmonary embolism 4 years ago Chronic atrial fibrillation Anxiety CHF (Echo 2013 EF 40-45%; ECHO 08/2015 showing a grossly normal systolic function) Hypertension Hypothyroidism PLAN NEURO: CO2 narcosis - resolved Critical care polyneuropathy Right upper extremity weakness 05/21-possibly secondary to nerve compression, C6 , C7 (brachial plexus) Pain Anxiety Depression -EMG/ NCV could not be completed on 05/[address] Castillo -Right upper extremity absence of triceps reflex, diminished sensation/numbness in C6-C7 dermatome level both anterior and posterior, inability for pronation, handgrip strength 2/5, lack of wrist extension/flexion. C6, C7 myotome pattern of muscle weakness.Positive shoulder abduction/adduction. -Clinically probably has right brachial plexus injury. MRI of brachial plexus- scheduled for 06/03 -Continued PT daily, with strengthening exercise (encouraged patient to participate) patient counseled on the importance. -Neurology Dr. Cheek-MRI brain C spine no acute findings. EMG study, right upper extremity -Venous Doppler RUE 05/28-negative for DVT -Psychiatric consultation-agrees patient is depressed, Added Seroquel. Continue Zoloft 50mg daily -On morphine 4 mg IV every 3 hours as needed for breakthrough pain. 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 Currently on CPAP. Attempt TP/TC if PS can be reduced - PSV 15/8 50% and continue weaning as tolerated. Continue FIO2 .50% - s/p Bronchoscopy 05/11 -follow up on BAL results-negative - DuoNeb every 6 hours scheduled, q 2 prn. - Pulmicort BID (home med), Continue Singulair 10 mg po daily - Therapeutic Lovenox 150 mg every 12 hours, consider transition to Xarelto ( home med) upon planned discharge CV: CHF exacerbation Pulmonary edema Paroxysmal atrial fibrillation (chronic) Hyperlipidemia -Monitor HR and BP keep MAP>65mmHg -Systolic BP [id number], continue to monitor trend possible escalation of antihypertensive meds -on Cardizem 60mg QID -Continue Lipitor 10 g by mouth daily. -Continue TriCor 40 mg by mouth daily -Therapeutic Lovenox 150 mg twice a day GI: Super morbid obesity with BMI of 63 -Regular diet ,thin liquids per speech recs. Refusing meals due to lack of appetite, Nausea -Liver US 06/03: Fatty liver, sludge in gall bladder, splenomegaly, no mechanical obstruction of bile duct noted. -On Pepcid 20mg BID -Multivitamin to medication regimen -Consider dietary supplementation FEN/RENAL: Hypokalemia - Monitor renal function , I/O. - Electrolytes replacement per protocol. - Bumex 1 mg IV q12 with KCL 40 q12 ID: Healthcare associated pneumonia Sepsis New fever MDRO Cellulitis right arm-resolved Leukocytosis-resolved Enterococcal faecalis bacteremia (06/02) -Rocephin (05/12- 05/25) -Blood culture: aerobic - enterococcus faecalis, anaerobic - GPC 06/02 -Urine culture GNR 06/02 Wound culture GNR 06/02 Sputum culture GNR 06/02 -Urine cx: Proteus Mirabilis 05/05 -Sputum cx: Providencia 05/05- resolved -Wound cx: 05/13 Proteus, Pseudomonas, Group D Enterococcus -Wound culture Pseudomonas MDR 04/27 -Sputum culture-Pseudomonas MDR- 04/27 -Bronchoscopy and re-culture 05/10 follow up on BAL results-neg to date -Follow up on sputum cx from 05/15- NGTD -Repeat cultures sent on 06/02 including wound culture from the right lower extremity wound and resulted as above -Started on IV vancomycin 06/03 for GPC in blood culture - possibly from PICC which was removed after placement of Per IV on 06/03. Continues on colistin nebs. ID following. MRI brachial plexus (06/03) revealed a collection involving right subscapularis muscle near right anterior axilla , possibly an abscess. Discussed with ID on 06/02, Orthopedics Dr. Velazquez consulted. I discussed the case with Dr. Velazquez on 06/03 who feels this is probably an abscess however would be difficult to access surgically and he plans to set up percutaneous drainage by interventional radiology. HEME: History of PE on chronic anticoagulation with Xarelto Anemia, iron deficiency and anemia of critical illness. -Monitor CBC, -Xarelto for PE 4 yrs ago. -Xarelto.held, On therapeutic Lovenox 150 mg twice a day - to be held for possible IR percutaneous drainage of collection involving right subscapularis. -Ferrous sulfate 300 mg/q day ENDO: Hypothyroidism -On SSI (Low scale) -Continue levothyroxine 50 mcg po daily -Free T4 1.52 PROPH: -Bilateral lower extremity SCDs. Lovenox DVT therapeutic dose. GI prophylaxis- Pepcid 20mg BID LINES: - PICC line RUE- No DVT on US 05/02, dico Out of bed with assistance. PT out of bed with vent. OT. Discussed with patient and RN at bedside. Bo Land MD Jun 04, 2016 08:43
[2016-06-04] MEDS: SERTRALINE HCL 100 MG TAB PO SCH (08:47)
[2016-06-04] MEDS: BUMETANIDE INJ 1 MG/4 ML VIAL IV PUSH SCH ×2 (08:47→22:09)
[2016-06-04] MEDS: COLLAGENASE OINT 30 GM TUBE TOP SCH (09:00)
[2016-06-04] MEDS: MICONAZOLE NITRATE 2% CREAM 15 GM TOP SCH ×2 (09:00→20:31)
[2016-06-04] MEDS: POTASSIUM CHLORIDE 20 MEQ CONTROLLED RELEASE TAB PO SCH ×2 (11:49→22:09)
--- NOTE | 2016-06-04 13:15 | HHI.FPPN ---
Subjective Remarks Overnight, AFVSS. Tolerated CPAP well overnight with sats 94-98. On BIPAP via trach Tpiece- PEEP 8. FIO2 50%. No acute complaints. Voiding via catheter. +BM. Eating with assistance. + Nausea, denies vomiting. Denies fevers/chills, SOB/CP, abdominal pain, calf pain. Continues to work w PT. Denies RUE pain. (Holley Baires MD R1) Objective Vitals Vital Signs Date Time Temp Pulse Resp B/P Pulse Ox O2 Delivery O2 Flow Rate FiO2 06/04/16 12:00 50 06/04/16 12:00 98.5 87 22 137/71 100 06/04/16 12:00 87 06/04/16 11:19 100 50 06/04/16 10:00 88 06/04/16 08:00 98.0 88 22 129/62 100 06/04/16 08:00 50 06/04/16 08:00 88 06/04/16 07:38 100 50 06/04/16 06:00 84 06/04/16 04:13 98 50 06/04/16 04:00 50 06/04/16 04:00 98.3 82 15 125/59 99 06/04/16 04:00 82 06/04/16 02:00 86 06/04/16 00:52 98 50 06/04/16 00:00 50 06/04/16 00:00 98.4 88 21 130/60 98 06/04/16 00:00 88 06/03/16 23:26 21 06/03/16 22:22 94 50 06/03/16 22:00 75 06/03/16 20:00 98.4 81 16 129/64 96 06/03/16 20:00 50 06/03/16 20:00 81 06/03/16 19:44 96 50 06/03/16 16:00 50 06/03/16 16:00 98.4 94 24 137/68 96 06/03/16 15:52 96 50 06/03/16 13:49 100 100 06/03/16 13:49 92 50 I/O 06/03/16 06/03/16 06/03/16 06/04/16 06/04/16 06/04/16 07:00 15:00 23:00 07:00 15:00 23:00 Intake Total 42 ml 551 ml 587 ml 1486 ml Output Total 2550 ml 1050 ml 600 ml 2150 ml Balance -2508 ml -499 ml -13 ml -664 ml Intake Oral 400 ml 100 ml 1200 ml IV Total 42 ml 151 ml 487 ml 286 ml Output Urine Total 2550 ml 1050 ml 600 ml 2150 ml # Bowel Movements 1 1 (Holley Baires MD R1) Result Diagram: 06/04/16 0342 06/04/16 0342 Imaging Last Impressions Chest X-Ray 06/03/16 0600 Signed Impressions: Service Date/Time: Friday, June 03, 2016 03:22 - CONCLUSION: 1. Cardiomegaly with bilateral pulmonary edema. 2. Moderate right pleural effusion. Vishnu Woodward MD Liver Ultrasound 06/03/16 0000 Signed Impressions: Service Date/Time: Friday, June 03, 2016 08:10 - CONCLUSION: 1. There is some sludge in the gallbladder. This can be seen with chronic gallbladder disease. 2. Fatty infiltration of the liver which appears to be enlarged. 3. No mechanical biliary tract obstruction. 4. Splenomegaly. Lázaro Frankel MD Brachial Plexus MRI 06/03/16 0000 Signed Impressions: Service Date/Time: Friday, June 03, 2016 12:42 - CONCLUSION: There is a complex multiloculated soft tissue and cystic mass measuring approximately 5.5 x 6.0 x 7.8 cm involving the subscapularis muscle along the anterior right scapula. The differential considerations include neoplastic disease, infection and hematoma. Recommend a CT scan of the right shoulder to pre-plan for CT-guided aspiration/biopsy of this abnormality. Lázaro Frankel MD Cervical Spine MRI 05/29/16 0000 Signed Impressions: Service Date/Time: Sunday, May 29, 2016 13:51 - CONCLUSION: Limited study but appears normal. Vishnu Woodward MD Brain MRI 05/29/16 0000 Signed Impressions: Service Date/Time: Sunday, May 29, 2016 13:51 - CONCLUSION: 1. Focal chronic ischemic change in the high right frontal parietal convexity stable from previous CT scan. 2. No acute intracranial abnormality. 3. Minimal nonspecific white matter changes. Vishnu Woodward MD Upper Extremity Ultrasound 05/28/16 0000 Signed Impressions: Service Date/Time: Saturday, May 28, 2016 10:16 - CONCLUSION: 1. Negative for deep venous thrombosis. Venous line noted in cephalic, subclavian and internal jugular vein. Horacio Gupta MD Abdomen X-Ray 04/29/16 0000 Signed Impressions: Service Date/Time: Friday, April 29, 2016 07:12 - CONCLUSION: Suspect Dobbhoff tube in the distal stomach. Garcia Lujan MD Objective Remarks GEN: Morbidly obese male on vent. DERM: Warm and dry. Venous stasis changes lower regions. Nails bitten down. Yellow ecchymosis periumbilical region and R pannus, healing. No erythema or skin breakdown. Numerous skin folds 2/2 habitus. Bandage R lateral malleolus c/ d/i. HEENT: Tracheotomy site c/d/i CV: Distant heart sounds. RRR. Normal peripheral perfusion. RESP: T-piece in place. FIO2 50. Transmitted upper respiratory sounds. No wheezing GI: Abdomen soft, obese, non-tender. Normal BS MSK: Lower extremity edema present bilaterally. No calf tenderness. NEURO: Grossly normal cranial nerves. Shoulder shrug intact. SILT x4 extremities. Increased strength of finger movements RUE, but unable to move against gravity. Unable to lift LUE to face to feed self. (Holley Baires MD R1 ) Date of Insertion: Apr 24, 2016 (Holley Baires MD R1) A/P Assessment and Plan 31y male w chronic respiratory failure s/p tracheostomy 4 years ago and Pickwickian/hypoventilation syndrome (BMI 68) admitted from rehab facility for treatment of hypoxia and PNA with IV antibiotics and supportive care. Discharge Planning Days, pending weaning from mechanical ventilation with stable clinical status. Ideally, return to long-term rehab facility. If qualifies, could consider [facility] depending on status. Critical care, ID, Psych, Neurology, Orthopedics, IR, PT/OT, Rehabilitation consulted. Appreciate recommendations. (Holley Baires MD R1) Attending Attestation Patient case discussed with resident physicians I have read the above note and agree with the assessment/plan as discussed with me I was involved in all medical decision making for this patient Lázaro Rogers M.D. (Lázaro Rogers MD) Problem List: (1) Mass of soft tissue of right upper extremity Status: Acute Plan: Plan -Requires further discussion with IR, Orthopedics, and CC if move forward with CT-guided aspiration/biopsy vs surgical approach - Tissue culture/pathology pending removal - EMG RUE never performed (?). Will defer to neurology to re-order, as necessary - Continue daily PT/OT Impression: Ddx: abscess vs neoplasm vs hematoma vs polyneuropathy (analisa C6/C7) vs deconditioning - Brachial plexus MRI (06/03): "Complex multiloculated soft tissue and cystic mass 5.5 x 6 x 7.8 cm involving subscapularis muscle along anterior R scapula - Prior to hospitalization, able to transfer to wheelchair and feed self. Now significant RUE weakness and unable to feed self. - Orthopedics consulted: difficult surgical area to access, per Dr. Macias, recommended IR consult for CT-guided biopsy/aspiration - IR consulted: family practice team notified unable to perform biopsy/ aspiration due to overlying vessels - RUE PT- consider prophylactic Zofran PRN and Oxycodone 7.5mg PRN prior to exercising - OT, focusing on LUE with goal of feeding self - EMG unsuccessful 05/31 secondary to desaturation Imaging: - US negative for DVT (05/28). - MRI brain (04/28) no acute intracranial process- ruled out L hemispheric event as cause - MRI C-spine wnl (05/29) - EEG (05/29): diffuse mild encephalopathy vs normal Stage 2 sleep (2) Fever Status: Acute Plan: - Vancomycin 2000mg IV daily + Vanc pharm consult, goal trough 15-20, per ID recs (06/03 -- ) - Zosyn 3.375 q6h (06/04-- ) - Continue Colistin 75mg q8h NEB - Acetaminophen 325mg PRN fever Impression: Patient with + blood, sputum, and urine cultures as of 06/03 suspected secondary to PICC infection; will monitor respiratory status and consider antibiotic broadening - Blood culture x2 (06/02) - (peripheral & PICC) #1) Enterococcus Faecalis & Gram+ cocci (anaerobe) x1D #2) NG2D - Urine culture (06/02) - Pseudomonas Aeruginosa - Wound culture (06/02) - Gram neg carmencita- x1D - Sputum culture (06/02) - Gram - carmencita at 24 hrs (06/03) - Serial CXRs grossly unchanged: cardiomegaly with bilateral pulmonary edema. Moderate R pleural effusion Abx History Zosyn 4.5gm IV q6h (04/24 - 04/29) Levaquin 750mg IV q24h (04/24-04/30) Zerbaxa 1.5 g IV q8h (04/29 - 05/07) Vancomycin IV (04/24 - 05/06) Ceftriaxone IV (05/07 - 05/25) Linezolid 600 mg PO BID (05/06 - 05/13) (3) On mechanically assisted ventilation Status: Acute Plan: - On trach T-piece; CPAP (PS 15, PEEP 8, FiO2 50%) - Pulmicort BID, Duonebs q2h PRN, Singulair 10mg daily Impression: Acute on chronic hypoxemic respiratory failure secondary to HCAP ( resolved) and tracheostomy leak (s/p exchange 05/02). At baseline, uses 6L NC at rehab facility. Placed on mechanical ventilation 04/24; critical care managing weaning. Solumedrol course with taper completed (05/10-06/03). (4) Nausea Status: Chronic Plan: - Ddx: medication side effect vs psychosomatic vs impaired gastric emptying vs GERD - Zofran 4mg q6h PRN - Compazine 5mg q8h PRN (5) Stable medical conditions Status: Chronic Plan: HYPERLIPIDEMIA -Atorvastatin 10mg daily and Tricor 48mg daily HYPERTENSION -Cardiazem 90mg QID PAROXYSMAL AFIB - Hold Xarelto while on therapeutic Lovenox. EKG 05/17: sinus rhythm. CHRONIC CHF - Bumex 1mg IV + 40 KCl BID, monitor I/Os, CC actively managing diuresis - Unable to confirm via ECHO (04/25/16) secondary to poor imaging . EF unknown. BNP was elevated to 400, decreasing NORMOCYTIC ANEMIA - Ferrous sulfate 325mg PO daily - Multivitamin 1 tab PO daily MDD: - Pt reports stable mood; some anhedonia suspected. Previously, refusing meals , shower, PT - Sertraline 100 mg PO daily - Seroquel 100mg HS INSOMNIA -Zolpidem 5mg HS PRN GOUT -Allopurinol 300mg daily HYPOTHYROIDISM 08/2015- TSH low, free T4 grossly wnl (05/27/16) -Synthroid 50 mcg PO daily FUNGAL INFECTION -Nystatin powder and miconazole creme to skin folds MORBID OBESITY WITH BMI 60-69 -see above plan for mechanical ventilation RESOLVED CONDITIONS THIS HOSPITAL VISIT - Cellulitis of Chest Wall: completed course linezolid (05/06-05/13), per ID recs - Yeast UTI: completed course Diflucan. UCx 05/01: Dionne albicans. Repeat UCx 05/05: Proteus Mirabilis - HCAP: s/p multiple abx (6) Nutrition, metabolism, and development symptoms Status: Acute Plan: FEN: Fluids: PO Electrolytes: receiving 40KCl BID with Bumex, chronically hypokalemic, replete per protocol Nutrition: 2Kcal heart healthy diet. Transitioned to oral feeds (05/29). Needs help with feeding. PPX: GI ppx: Famotidine 20mg BID DVT PPx: Therapeutic Lovenox 150mg SQ BID Pain: Oxycodone 7.5/325 q4 PRN Bowels: Senna 1 tab HS REYES Wt: Admission: 480 lbs. Wt 06/04- 445 lbs. Continue monitor, encourage, modify/restrict diet, as appropriate DW: Dr. Rogers SDW: Dr. Anderson (Holley Baires MD R1) Holley Baires MD R1 Jun 04, 2016 13:14 Lázaro Rogers MD Jun 04, 2016 16:46
--- NOTE | 2016-06-04 14:28 | RADRPT ---
EXAM DATE/TIME: 06/04/2016 00:00 [place] COMPARISON: No previous studies available for comparison. INDICATIONS : CT guided aspiration and drain placement of abscess right shoulder IMAGING STUDIES: MRI of the brachioplexus performed on 06/03/2016 was reviewed. The loculated fluid collection along th e right subscapularis muscle is inaccessible to percutaneous drainage. The neurovascular bundle inclu ding subclavian vessels and brachial plexus overlie the anterior margin of the collection. This in ad dition to the patient size mitigates against CT-guided aspiration and catheter placement. ASSESSMENT: Subscapularis fluid collection is not accessible for CT-guided aspiration and drainage. PLAN: Surgical consultation should be obtained. James Bonner MD on June 04, 2016 at 14:21 Board Certified Radiologist. This report was verified electronically.
[2016-06-04] MEDS: DOCUSATE SODIUM 50 MG/SENNA 8.6 MG TAB PO SCH (20:30)
[2016-06-04] MEDS: QUEtiapine FUMARATE 100 MG TAB PO SCH (20:30)
[2016-06-04] MEDS: CEFTOLOZANE-TAZOBACTAM INJ 1,500 MG in SODIUM CHLORIDE 0.9% INJ 100 ML IV SCH (20:30)
[2016-06-05] VITALS (17 sets, daily range): BP systolic 131–148; BP diastolic 64–68; PULSE 78–97; RESP 18–21; TEMP 98–98.7; O2SAT 92–98
[2016-06-05] MEDS ORDERED: PHARMACY ORDERED LAB XX ONE (00:45)
[2016-06-05] MEDS: CEFTOLOZANE-TAZOBACTAM INJ 1,500 MG in SODIUM CHLORIDE 0.9% INJ 100 ML IV SCH ×4 (03:00→20:04)
[2016-06-05] MEDS: ENOXAPARIN SODIUM 150 MG/ML SYRINGE SQ SCH ×2 (03:00→16:54)
[2016-06-05] MEDS: VANCOMYCIN INJ 2,000 MG in SODIUM CHLORID 0.9% 500 ML INJ 500 ML IV SCH ×2 (03:00→13:00)
[2016-06-05] MEDS: LEVOTHYROXINE SODIUM 50 MCG TAB PO SCH (05:05)
[2016-06-05] MEDS: CHLORHEXIDINE 0.12% (ORAL KIT) 15 ML CUP MT SCH ×2 (08:00→20:00)
[2016-06-05] MEDS: RESP: BUDESONIDE 0.5 MG/2 ML NEB NEB SCH ×2 (08:08→19:20)
[2016-06-05] MEDS: RESP: COLISTIN 150 MG VIAL NEB SCH ×3 (08:44→23:36)
[2016-06-05] MEDS: ATORVASTATIN 10 MG TAB PO SCH (08:59)
[2016-06-05] MEDS: FENOFIBRATE 48 MG TAB PO SCH (08:59)
[2016-06-05] MEDS: BUMETANIDE INJ 1 MG/4 ML VIAL IV PUSH SCH ×2 (08:59→23:26)
[2016-06-05] MEDS: DILTIAZEM HCL 90 MG TAB PO SCH ×5 (08:59→23:27)
[2016-06-05] MEDS: SERTRALINE HCL 100 MG TAB PO SCH (08:59)
[2016-06-05] MEDS: FAMOTIDINE 20 MG TAB PO SCH ×3 (09:00→23:26)
[2016-06-05] MEDS: MULTIVITAMIN TAB PO SCH (09:00)
[2016-06-05] MEDS: ALLOPURINOL 300 MG TAB PO SCH (09:00)
[2016-06-05] MEDS: FERROUS SULFATE 325 MG (65 MG ELEMENTAL IRON) TAB PO SCH (09:00)
[2016-06-05] MEDS: NYSTATIN 100,000 U/GM PWD 15 GM BTL TOPICAL SCH ×2 (09:00→20:00)
[2016-06-05] MEDS: MONTELUKAST SODIUM 10 MG TAB PO SCH (09:00)
[2016-06-05] MEDS: COLLAGENASE OINT 30 GM TUBE TOP SCH (09:00)
[2016-06-05] MEDS: SODIUM CHLORIDE 0.9% FLUSH 5 ML FLUSH FLUSH SCH ×2 (09:00→20:05)
--- NOTE | 2016-06-05 09:21 | HHI.CCPN ---
Subjective Remarks/Hospital Course 31 year old morbidly obese (BMI 68) male with chronic respiratory failure s/p tracheostomy 4 years ago, atrial fibrillation and pulmonary embolism on Xarelto , COPD, CHF and h/o HTN. He presented from [facility] with low oxygen saturation apparently his oxygen saturation was 82% on RA. He was placed back on 6L of oxygen via his trach mask and given a breathing treatment, initially improved however he started drifting back to low 80s again. Chest x-ray showed bibasilar infiltrates and pulmonary edema. Patient was admitted to the [facility] service and was started on IV steroids IV vancomycin and Zosyn and Levaquin for healthcare associated pneumonia. After starting ACV, patient was more awake but there was a significant amount of air leak around his tracheostomy. Patient has had a Shiley 6.0 Proximal XLT, but the pilot can router balloon had been cut off. 05/02 the patient became acutely hypoxemic with a large cuff leak, underwent emergency trach exchange at bedside by Dr. Macias. FiO2 65% PEEP 14 05/13 Patient is on ventilator via trach, on Fentanyl infusion however he is awake and alert. On PRVC with FIO2 40%. Afebrile. 05/14 No acute events overnight. Tmax 99.8. Patient is awake, alert on ventilator via trach still requiring increase O2. On PRVC with PEEP: 10 and FIO2 70%. 05/15 patient acutely desaturated after he was found. Saturation went down to 70% on 100% oxygen. Bag and mask ventilation carried out, with eventual improvement on oxygen saturation to 85%. Patient was placed on PC/AC mode of ventilation, with PEEP of 15 and instructed to pressure of 30. Eventually oxygen saturation improved to 95%. Lasix him today as the chest x-ray from today shows increasing bilateral infiltrate and pulmonary edema. Also sputum culture will be sent 05/16 Patient is on Fentanyl and Diprivan infusion but awake and alert. Afebrile. On PC/AC with PEEP:15, IP: 22, IT:1.3 and FIO2 50% 05/17 Patient is off Diprivan and remains on Fentanyl infusion for sedation. On PC/AC with PEEP: down 10 and FIO2 40%. Afebrile. 05/18 Patient remains on ventilator via trach on PC/AC with PEEP:12, FIO2 40%, IP:22, IT:1.0. On Fentanyl infusion 05/19 No acute events overnight. On Fentanyl infusion but awake and alert. Afebrile. 05/20 Tolerating C Pap 17/12 FIO2 40, sats 98%. RSBI in 20s, appears can be weaned further. Afebrile. Speech therapy evaluated and ok for regular diet. Starting with full liquid. 05/21 Will wean PSV to 15/10. Tolerated full liquids, will advance to regular diet per speech recs. Subjective: 05/22 On PSV 15/10 FIO2 40 with sats 92%. Smiling today. Glad to be eating regular food again. 05/23 No acute events overnight. Remains on CPAP with PS 15, PEEP:10 and FIO2 40 %. Afebrile. Off Fentanyl drip. Afebrile. Awake and alert. 05/24 Patient is on CPAP 06/06 with 40% FIO2. Afebrile. Awake and alert, on no sedation. 05/25 No acute events overnight. Patient was placed back on PC/AC overnight. Tolerated CPAP trials during day yesterday. Awake and alert. On no drips. Afebrile. 05/26 Afebrile. Tmax 98.6. Today the patient complained of nausea requiring Zofran. The patient has a lack of an appetite, with noted hypoglycemia early this a.m. blood glucose level 69. Patient tolerating CPAP well greater than 12 hours in the last 24 hours. 05/27 The patient tolerated CPAP for over 36 hours, O2 sat a knee 94% on FIO2 40 %. The patient had an increase in appetite. The patient continues on full liquid diet. 05/28 The patient declined physical therapy treatment, yesterday and also overnight declined to be moved by nursing staff. The patient refused dinner last evening, of note patient was reevaluated by speech therapy and can consume a heart healthy diet with thin liquids. The patient continues on physical therapy for strengthening exercises of all extremities specifically noted right upper extremity continues to be weak with gross fibrillations noted in hand and forearm. 05/29 Afebrile. No change in right upper extremity weakness. The patient was seen by neurology yesterday plan for MRI today if possible in hospital MRI, and EMG studies. No complaints overnight. Patient continues to refuse to have activities performed, movement in bed. The patient appears to be depressed, psychiatry consulted. 05/30: Patient alert awake on CPAP. Following commands. Psych agrees the patient is depressed. MRI brain no acute findings 05/31: Awake alert. on PS 11/02. EMG could not be completed due to patient becoming anxious. Otherwise no acute events reported overnight 06/01: Remains PS from 11/02. Right upper extremity weakness persists. EMG to be repeated on Friday. Will need MRI of the brachial plexus. Chest x-ray is unchanged 06/02: States that "not feeling well". Febrile to 101.5. White count increasing but still within the normal range. Pancultured. We'll request ID reevaluation. 06/03: Resting in bed on C Pap/pressure support via tracheostomy. One out of 2 sets of blood cultures sent on 06/02 positive for gram-positive cocci. 06/04: Resting in bed on mechanical ventilation via tracheostomy. Afebrile overnight. MRI brachial plexus (06/03) revealed a collection near the right subscapularis muscle, possibly an abscess. Discussed with ID, orthopedics Dr. Velazquez consulted. I discussed the case with Dr. Velazquez this morning who feels this is probably an abscess however would be difficult to access surgically and he plans to set up percutaneous drainage by interventional radiology. 06/05: Resting in bed on mechanical ventilation via tracheostomy. Remains afebrile. Reportedly IR cannot do percutaneous drainage of collection involving right subscapularis muscle. Objective Vital Signs Date Time Temp Pulse Resp B/P Pulse Ox O2 Delivery O2 Flow Rate FiO2 06/05/16 08:11 92 45 06/05/16 06:00 91 06/05/16 04:00 98.4 18 137/65 Intake and Output 06/04/16 06/04/16 06/05/16 08:00 16:00 00:00 Intake Total 1486 ml 2594 ml 447 ml Output Total 2150 ml 2430 ml 500 ml Balance -664 ml 164 ml -53 ml Result Diagram: 06/04/16 0342 06/04/16 0342 Other Results Microbiology Date/Time Procedure Status Source Growth 06/02/16 12:25 Gram Stain - Final Complete Sputum Oral Tracheal Aspirate 06/02/16 12:25 Sputum Culture - Final Complete Pseudomonas Aeruginosa 06/02/16 12:55 Gram Stain - Final Complete Wound Ankle 06/02/16 12:55 Wound Culture - Final Complete Pseudomonas Aeruginosa 06/02/16 13:05 Urine Culture - Final Complete Urine Catheterized Urine Pseudomonas Aeruginosa Imaging Last Impressions Chest X-Ray 05/20/16 0000 Signed Impressions: Service Date/Time: Friday, May 20, 2016 03:21 - CONCLUSION: Persistent mid and lower lung areas of consolidation or atelectasis being worse in the right. There has been mild improvement. Garcia Lujan MD Upper Extremity Ultrasound 05/02/16 0000 Signed Impressions: Service Date/Time: April 20:51 - CONCLUSION: No DVT. Garcia Lujan MD Abdomen X-Ray 04/29/16 0000 Signed Impressions: Service Date/Time: Friday, April 29, 2016 07:12 - CONCLUSION: Suspect Dobbhoff tube in the distal stomach. Garcia Lujan MD Objective Remarks GENERAL: Patient is 31yo on ventilator via trach, awake and follows commands. Super Morbidly obese. Communicating appropriately SKIN: Warm and dry. HEAD: Normocephalic. EYES: No scleral icterus. No injection or drainage. NECK: Supple, trachea midline. Shiley 6.0 Proximal XLT, (new trach placed ) CARDIOVASCULAR:Tachycardic without murmurs, gallops, or rubs. RESPIRATORY: On mechanical ventilation, Breath sounds equal bilaterally. Distant secondary to habitus. GASTROINTESTINAL: Abdomen soft, obese, non-tender, nondistended. Multiple noted areas of ecchymotic bruising secondary to subcutaneous injections MUSCULOSKELETAL: No cyanosis, or edema. Pedal edema. Wound on lateral aspect of right lower leg above lateral malleolus , dressing C/D/I. 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 Neuro: Awake and alert. Moves all extremities with focal deficit right upper extremity as above. Date of Insertion: Apr 24, 2016 A/P Assessment and Plan ASSESSMENT Acute hypercapnic and hypoxemic respiratory failure Acute worsening of hypoxia due to lung de-recruitment 05/15/16 Healthcare associated pneumonia MDR Pseudomonas Enterococcal bacteremia Collection near right subscapularis muscle(On MRI 06/03) - possibly an abscess Sepsis CHF exacerbation CO2 narcosis Tracheostomy pilot can router balloon damage -status post exchange with new Shiley 6.0 Proximal XLT 05/02/16 Chronic Respiratory Failure s/p Tracheostomy 4 years ago (Shiley 6.0 Proximal XLT) Probable right brachial plexus injury COPD/obesity hypoventilation syndrome Morbid Obesity BMI 67 History of pulmonary embolism 4 years ago Chronic atrial fibrillation Anxiety CHF (Echo 2013 EF 40-45%; ECHO 08/2015 showing a grossly normal systolic function) Hypertension Hypothyroidism PLAN NEURO: CO2 narcosis - resolved Critical care polyneuropathy Right upper extremity weakness 05/21-possibly secondary to nerve compression, C6 , C7 (brachial plexus) Pain Anxiety Depression -EMG/ NCV could not be completed on 05/[address] Castillo -Right upper extremity absence of triceps reflex, diminished sensation/numbness in C6-C7 dermatome level both anterior and posterior, inability for pronation, handgrip strength 2/5, lack of wrist extension/flexion. C6, C7 myotome pattern of muscle weakness.Positive shoulder abduction/adduction. -Clinically probably has right brachial plexus injury. MRI of brachial plexus- scheduled for 06/03 -Continued PT daily, with strengthening exercise (encouraged patient to participate) patient counseled on the importance. -Neurology Dr. Cheek-MRI brain C spine no acute findings. EMG study, right upper extremity -Venous Doppler RUE 05/28-negative for DVT -Psychiatric consultation-agrees patient is depressed, Added Seroquel. Continue Zoloft 50mg daily -On morphine 4 mg IV every 3 hours as needed for breakthrough pain. RESP: Acute hypercapnic and hypoxemic respiratory failure Acute lung derecruitment 05/15 with hypoxia Healthcare associated pneumonia Tracheostomy pilot can router balloon damage (Shiley 6.0 Proximal XLT) s/p new trach placement 05/02 Chronic Respiratory Failure s/p Tracheostomy 4 years ago COPD/obesity hypoventilation syndrome History of pulmonary embolism 4 years ago Leukocytosis-resolved Pulmonary edema - Continue with vent support keep sat >90%. Currently on CPAP. Attempt TP/TC if PS can be reduced - PSV 15/8 50% and continue weaning as tolerated. Continue FIO2 .50% - s/p Bronchoscopy 05/11 -follow up on BAL results-negative - DuoNeb every 6 hours scheduled, q 2 prn. - Pulmicort BID (home med), Continue Singulair 10 mg po daily - Therapeutic Lovenox 150 mg every 12 hours, consider transition to Xarelto ( home med) upon planned discharge CV: CHF exacerbation Pulmonary edema Paroxysmal atrial fibrillation (chronic) Hyperlipidemia -Monitor HR and BP keep MAP>65mmHg -Systolic BP [id number], continue to monitor trend possible escalation of antihypertensive meds -on Cardizem 60mg QID -Continue Lipitor 10 g by mouth daily. -Continue TriCor 40 mg by mouth daily -Therapeutic Lovenox 150 mg twice a day GI: Super morbid obesity with BMI of 63 -Regular diet ,thin liquids per speech recs. Refusing meals due to lack of appetite, Nausea -Liver US 06/03: Fatty liver, sludge in gall bladder, splenomegaly, no mechanical obstruction of bile duct noted. -On Pepcid 20mg BID -Multivitamin to medication regimen -Consider dietary supplementation FEN/RENAL: Hypokalemia - Monitor renal function , I/O. - Electrolytes replacement per protocol. - Bumex 1 mg IV q12 with KCL 40 q12 ID: Healthcare associated pneumonia Sepsis New fever MDRO Cellulitis right arm-resolved Leukocytosis-resolved Enterococcal faecalis bacteremia (06/02) -Rocephin (05/12- 05/25) -Blood culture: aerobic - enterococcus faecalis, anaerobic - GPC 06/02 -Urine culture GNR 06/02 Wound culture GNR 06/02 Sputum culture GNR 06/02 -Urine cx: Proteus Mirabilis 05/05 -Sputum cx: Providencia 05/05- resolved -Wound cx: 05/13 Proteus, Pseudomonas, Group D Enterococcus -Wound culture Pseudomonas MDR 04/27 -Sputum culture-Pseudomonas MDR- 04/27 -Bronchoscopy and re-culture 05/10 follow up on BAL results-neg to date -Follow up on sputum cx from 05/15- NGTD -Repeat cultures sent on 06/02 including wound culture from the right lower extremity wound and resulted as above -Started on IV vancomycin 06/03 for GPC in blood culture - possibly from PICC which was removed after placement of Per IV on 06/03. Continues on colistin nebs. ID following. MRI brachial plexus (06/03) revealed a collection involving right subscapularis muscle near right anterior axilla , possibly an abscess. Discussed with ID on 06/02, Orthopedics Dr. Velazquez consulted. I discussed the case with Dr. Velazquez on 06/03 who feels this is probably an abscess however would be difficult to access surgically and he had set up percutaneous drainage by interventional radiology however IR cannot place drain reportedly due to technical issues. Dr. Velazquez to decide drainage of collection surgically. HEME: History of PE on chronic anticoagulation with Xarelto Anemia, iron deficiency and anemia of critical illness. -Monitor CBC, -Xarelto for PE 4 yrs ago. -Xarelto.held, On therapeutic Lovenox 150 mg twice a day - to be held for possible IR percutaneous drainage of collection involving right subscapularis. -Ferrous sulfate 300 mg/q day ENDO: Hypothyroidism -On SSI (Low scale) -Continue levothyroxine 50 mcg po daily -Free T4 1.52 PROPH: -Bilateral lower extremity SCDs. Lovenox DVT therapeutic dose. GI prophylaxis- Pepcid 20mg BID LINES: - PICC line RUE- No DVT on US 05/02 - removed on 06/03. Out of bed with assistance. PT out of bed with vent. OT. Discussed with ID, D/W LEACHER. Bo Land MD Jun 05, 2016 09:21
[2016-06-05] MEDS: oxyCODONE/ACETAMINOPHEN 7.5 MG/325 MG TAB PO PRN (09:47)
[2016-06-05] MEDS: ONDANSETRON HCL 4 MG/2 ML VIAL IV PUSH PRN ×3 (09:47→20:04)
[2016-06-05] MEDS: POTASSIUM CHLOR 20 MEQ PREMIX 100 ML IV PRN ×2 (09:48→09:49)
[2016-06-05] MEDS: POTASSIUM CHLORIDE 20 MEQ CONTROLLED RELEASE TAB PO SCH ×3 (09:51→23:26)
--- NOTE | 2016-06-05 09:57 | HHI.FPPN ---
Subjective Remarks Overnight, no acute events. Afebrile. Normotensive. On CPAP via trach with t- piece: FI02 45% PEEP 8 with O2 sat 92-94%. Bandage R lateral malleolus, trach, c/d/i +Emesis 10 minutes after breakfast. NBNB contained egg pieces +nausea and "slow" stomach +RUE weakness. (-) pain. LUE still unable to move to chest to feed self. (-) RUBY, blurred vision, SOB, CP/palpitations, fevers/chills, abdominal pain, calf pain (Holley Baires MD R1) Objective Vitals Vital Signs Date Time Temp Pulse Resp B/P Pulse Ox O2 Delivery O2 Flow Rate FiO2 06/05/16 08:11 92 45 06/05/16 06:00 91 06/05/16 04:00 98.4 86 18 137/65 96 06/05/16 04:00 86 06/05/16 04:00 98 45 06/05/16 04:00 50 06/05/16 02:00 81 06/05/16 01:09 95 50 06/05/16 00:00 83 06/05/16 00:00 98.0 83 18 132/68 94 06/05/16 00:00 50 06/04/16 22:12 96 50 06/04/16 22:00 82 06/04/16 20:45 96 50 06/04/16 20:00 92 06/04/16 20:00 50 06/04/16 20:00 98.2 92 24 143/68 95 06/04/16 18:00 93 06/04/16 16:00 85 06/04/16 16:00 50 06/04/16 16:00 98.8 85 20 139/65 96 06/04/16 15:17 96 50 06/04/16 14:00 86 06/04/16 12:00 50 06/04/16 12:00 98.5 87 22 137/71 100 06/04/16 12:00 87 06/04/16 11:19 100 50 06/04/16 10:00 88 I/O 06/04/16 06/04/16 06/04/16 06/05/16 06/05/16 06/05/16 06:59 14:59 22:59 06:59 14:59 22:59 Intake Total 1486 ml 2594 ml 447 ml 1225 ml Output Total 2150 ml 2430 ml 500 ml 2000 ml Balance -664 ml 164 ml -53 ml -775 ml Intake Oral 1200 ml 2244 ml 700 ml IV Total 286 ml 350 ml 447 ml 525 ml Output Urine Total 2150 ml 2430 ml 500 ml 2000 ml # Bowel Movements 1 (Holley Baires MD R1) Result Diagram: 06/04/16 0342 06/04/16 0342 Imaging Last Impressions Chest X-Ray 06/03/16 0600 Signed Impressions: Service Date/Time: Friday, June 03, 2016 03:22 - CONCLUSION: 1. Cardiomegaly with bilateral pulmonary edema. 2. Moderate right pleural effusion. Vishnu Woodward MD Liver Ultrasound 06/03/16 0000 Signed Impressions: Service Date/Time: Friday, June 03, 2016 08:10 - CONCLUSION: 1. There is some sludge in the gallbladder. This can be seen with chronic gallbladder disease. 2. Fatty infiltration of the liver which appears to be enlarged. 3. No mechanical biliary tract obstruction. 4. Splenomegaly. Lázaro Frankel MD Brachial Plexus MRI 06/03/16 0000 Signed Impressions: Service Date/Time: Friday, June 03, 2016 12:42 - CONCLUSION: There is a complex multiloculated soft tissue and cystic mass measuring approximately 5.5 x 6.0 x 7.8 cm involving the subscapularis muscle along the anterior right scapula. The differential considerations include neoplastic disease, infection and hematoma. Recommend a CT scan of the right shoulder to pre-plan for CT-guided aspiration/biopsy of this abnormality. Lázaro Frankel MD Cervical Spine MRI 05/29/16 0000 Signed Impressions: Service Date/Time: Sunday, May 29, 2016 13:51 - CONCLUSION: Limited study but appears normal. Vishnu Woodward MD Brain MRI 05/29/16 0000 Signed Impressions: Service Date/Time: Sunday, May 29, 2016 13:51 - CONCLUSION: 1. Focal chronic ischemic change in the high right frontal parietal convexity stable from previous CT scan. 2. No acute intracranial abnormality. 3. Minimal nonspecific white matter changes. Vishnu Woodward MD Upper Extremity Ultrasound 05/28/16 0000 Signed Impressions: Service Date/Time: Saturday, May 28, 2016 10:16 - CONCLUSION: 1. Negative for deep venous thrombosis. Venous line noted in cephalic, subclavian and internal jugular vein. Horacio Gupta MD Abdomen X-Ray 04/29/16 0000 Signed Impressions: Service Date/Time: Friday, April 29, 2016 07:12 - CONCLUSION: Suspect Dobbhoff tube in the distal stomach. Garcia Lujan MD Objective Remarks GEN: Morbidly obese male in NAD. DERM: Warm and dry. Venous stasis changes lower regions. Nails bitten down. Yellow ecchymosis periumbilical region and R pannus, healing. No erythema or skin breakdown appreciated. Numerous skin folds 2/2 habitus. Bandage R lateral malleolus c/d/i. HEENT: Tracheotomy site c/d/i. Poor dentition. PERRL. EOMI. CV: Distant heart sounds. RRR. Normal peripheral perfusion. RESP: T-piece in place. FIO2 45 Transmitted upper respiratory sounds. No wheezing GI: Abdomen soft, obese, non-tender. +BS MSK: LE edema present bilaterally. No calf tenderness NEURO: Grossly normal cranial nerves. Shoulder shrug intact. SILT x4 extremities. Increased strength of finger movements RUE, but unable to move against gravity. Unable to lift LUE to face to feed self. (Holley Baires MD R1 ) Date of Insertion: Apr 24, 2016 (Holley Baires MD R1) A/P Assessment and Plan 31y male w chronic respiratory failure s/p tracheostomy 4 years ago and Pickwickian/hypoventilation syndrome (BMI 68) admitted from rehab facility for treatment of hypoxia and PNA with IV antibiotics and supportive care. Discharge Planning Days, pending weaning from mechanical ventilation with stable clinical status. Ideally, return to long-term rehab facility. If qualifies, could consider senior care vent facility depending on status. Orthopedics, Critical care, ID, Psych, Neurology, IR, PT/OT, Rehabilitation consulted. Appreciate recommendations. (Holley Baires MD R1) Attending Attestation Patient examined and case discussed with resident physicians I have read the above note and agree with the assessment/plan as discussed with me I was involved in all medical decision making for this patient Lázaro Rogers M.D. (Lázaro Rogers MD) Problem List: (1) Mass of soft tissue of right upper extremity Status: Acute Plan: Impression: Multiloculated soft tissue and cystic mass 6 x 6 x 8cm involving R subscapularis muscle causing weakness RUE. Ddx: abscess vs neoplasm vs hematoma - Orthopedics (Dr Macias) consulted for surgical aspiration/biopsy in OR after IR deemed CT-guided biopsy not possible - Tissue culture/pathology should be ordered, pending removal - Continue daily PT/OT, as tolerated to strengthen RUE and body, with goal of self-feeding Clinical course: Prior to hospitalization, able to transfer to wheelchair and feed self. Now significant acute RUE weakness and general weakness/loss of function to point unable to feed self. RUE weakness initially thought to be a neuropathy involving C6/C7 secondary to morbid obesity and positioning. DVT, L hemispheric pathology, and seizure were ruled out with imaging (as below). EMG was scheduled, but unable to be performed secondary to desaturation. Further imaging via MRI was pursued, which discovered soft tissue mass, the likely cause of RUE weakness with need for malignancy rule out. Imaging: - US negative for DVT (05/28). - MRI brain (04/28) no acute intracranial process- ruled out L hemispheric event as cause - MRI C-spine wnl (05/29) - EEG (05/29): diffuse mild encephalopathy vs normal Stage 2 sleep - Brachial plexus MRI (06/03): "Complex multiloculated soft tissue and cystic mass 5.5 x 6 x 7.8 cm involving subscapularis muscle along anterior R scapula (2) Fever Status: Acute Plan: - Vancomycin 2000mg IV daily + Vanc pharm consult, goal trough 15-20, (06/03 -- ) - Start ceftozolane/tazobactam q8h (06/05- - - Colistin 75mg q8h NEB - Acetaminophen 325mg PRN fever Impression: Differential sepsis secondary to PICC infection (PICC removed 06/03) vs benign colonization vs viral infection. +blood, sputum, and urine cultures (06/03) - Blood culture x2 (06/02) - (peripheral & PICC) #1) Pseudomonas aeruginosa x Enterococcus faecalis #2) No growth final - Urine culture (06/02) - Pseudomonas Aeruginosa- multidrug resistant - Wound culture (06/02) - P. aeurginosa - Sputum culture (06/02) - P. aeuruginosa - Serial CXRs grossly unchanged: cardiomegaly with bilateral pulmonary edema. Moderate R pleural effusion Abx History Zosyn 4.5gm IV q6h (04/24 - 04/29) Levaquin 750mg IV q24h (04/24-04/30) Zerbaxa 1.5 g IV q8h (04/29 - 05/07) Vancomycin IV (04/24 - 05/06) Ceftriaxone IV (05/07 - 05/25) Linezolid 600 mg PO BID (05/06 - 05/13) Vancomycin (06/03-- ) Zosyn 3.375 q6h (06/04- 06/05) Ceftozolane/Tazobactam (06/05 --) (3) On mechanically assisted ventilation Status: Acute Plan: - CPAP (PS 15, PEEP 8, FiO2 45%) via trach t-piece - Pulmicort BID REYES - Duonebs q2h PRN - Singulair 10mg daily Impression: Acute on chronic hypoxemic respiratory failure secondary to HCAP ( resolved) and tracheostomy leak (s/p exchange 05/02). Baseline 6L NC at rehab. Mechanical ventilation 04/24. Critical care managing weaning. Solumedrol (05/10-06/03) (4) Nausea Status: Chronic Plan: - Zofran 4mg q6h PRN - Compazine 5mg q8h PRN - Impression: Chronic- poorly controlled. Ddx: medication side effect vs psychosomatic vs impaired gastric emptying vs GERD (5) Stable medical conditions Status: Chronic Plan: HYPERLIPIDEMIA -Atorvastatin 10mg daily and Tricor 48mg daily HYPERTENSION -Cardiazem 90mg QID PAROXYSMAL AFIB - Hold Xarelto while on therapeutic Lovenox. EKG 05/17: sinus rhythm. CHRONIC CHF - Bumex 1mg IV + 40 KCl BID, monitor I/Os, CC actively managing diuresis - Unable to confirm via ECHO (04/25/16) secondary to poor imaging . EF unknown. BNP was elevated to 400, decreasing NORMOCYTIC ANEMIA - Ferrous sulfate 325mg PO daily - Multivitamin 1 tab PO daily MDD: - Pt reports stable mood; some anhedonia suspected. Previously, refusing meals , shower, PT - Sertraline 100 mg PO daily - Seroquel 100mg HS INSOMNIA -Zolpidem 5mg HS PRN GOUT -Allopurinol 300mg daily HYPOTHYROIDISM 08/2015- TSH low, free T4 grossly wnl (05/27/16) -Synthroid 50 mcg PO daily FUNGAL INFECTION -Nystatin powder and miconazole creme to skin folds MORBID OBESITY WITH BMI 60-69 -see above plan for mechanical ventilation RESOLVED CONDITIONS THIS HOSPITAL VISIT - Cellulitis of Chest Wall: completed course linezolid (05/06-05/13), per ID recs - Yeast UTI: completed course Diflucan. UCx 05/01: Dionne albicans. Repeat UCx 05/05: Proteus Mirabilis - HCAP: s/p multiple abx (6) Nutrition, metabolism, and development symptoms Status: Acute Plan: FEN: Fluids: PO Electrolytes: receiving 40KCl BID with Bumex, chronically hypokalemic, replete per protocol Nutrition: 2Kcal heart healthy diet. Transitioned to oral feeds (05/29). Needs help with feeding. PPX: GI ppx: Famotidine 20mg BID DVT PPx: Therapeutic Lovenox 150mg SQ BID Pain: Oxycodone 7.5/325 q4 PRN Bowels: Senna 1 tab HS REYES Wt: Admission: 480 lbs. Wt 06/04- 445 lbs. Continue monitor, encourage, modify/restrict diet, as appropriate DW: Dr. Rogers SDW: Dr. Anderson (Holley Baires MD R1) Problem Qualifiers (1) Fever: Holley Baires MD R1 Jun 05, 2016 09:57 Lázaro Rogers MD Jun 05, 2016 17:01
[2016-06-05] MEDS: MICONAZOLE NITRATE 2% CREAM 15 GM TOP SCH ×2 (16:54→20:01)
[2016-06-05] MEDS: RESP: ALBUTEROL 2.5 MG/IPRATROPIUM 0.5 MG NEB (PRN) NEB (19:20)
[2016-06-05] MEDS: DOCUSATE SODIUM 50 MG/SENNA 8.6 MG TAB PO SCH ×2 (21:00→23:27)
[2016-06-05] MEDS: QUEtiapine FUMARATE 100 MG TAB PO SCH ×2 (21:00→23:27)
[2016-06-06] VITALS (15 sets, daily range): BP systolic 136–158; BP diastolic 65–74; PULSE 71–80; RESP 17–23; TEMP 98.3–98.9; O2SAT 92–100
[2016-06-06] MEDS: VANCOMYCIN INJ 2,000 MG in SODIUM CHLORID 0.9% 500 ML INJ 500 ML IV SCH ×2 (01:05→12:01)
[2016-06-06] MEDS: CEFTOLOZANE-TAZOBACTAM INJ 1,500 MG in SODIUM CHLORIDE 0.9% INJ 100 ML IV SCH ×3 (04:12→20:06)
[2016-06-06] MEDS: ENOXAPARIN SODIUM 150 MG/ML SYRINGE SQ SCH (04:12)
[2016-06-06] MEDS: ONDANSETRON HCL 4 MG/2 ML VIAL IV PUSH PRN (04:12)
[2016-06-06 04:34] LABS: HEMATOCRIT 28.8 % (39.0-51.0); MEAN CELL VOLUME 80.5 FL (80.0-100.0); MEAN CORPUSCULAR HEMOGLOBIN 24.4 PG (27.0-34.0); MEAN CORPUSCULAR HGB CONC 30.3 % (32.0-36.0); PLATELET COUNT 318 TH/MM3 (150-450); RED BLOOD COUNT 3.57 MIL/MM3 (4.50-5.90); RED CELL DISTRIBUTION WIDTH 24.5 % (11.6-17.2); WHITE BLOOD COUNT 15.1 TH/MM3 (4.0-11.0)
[2016-06-06 04:38] LABS: HEMO FLAGS AUTO DIFF
[2016-06-06 05:00] LABS: BICARBONATE 37.3 MEQ/L (21.0-32.0); POTASSIUM 3.2 MEQ/L (3.5-5.1)
[2016-06-06] MEDS: LEVOTHYROXINE SODIUM 50 MCG TAB PO SCH (05:25)
[2016-06-06] MEDS: POTASSIUM CHLOR 20 MEQ PREMIX 100 ML IV PRN ×2 (05:42→08:59)
[2016-06-06] MEDS ORDERED: DOCUSATE SODIUM 50 MG/SENNA 8.6 MG TAB PO PRN (07:00)
--- NOTE | 2016-06-06 07:22 | PD.ORT.PN ---
Subjective Subjective Remarks Wilfrido has a large abscess of the right shoulder. MRI reveals large abscess underneath the subscapularis muscle beneath the scapula. Interventional radiology was consultative for drain placement. Radiologist was unable to do so because of the location of the abscess. Wilfrido continues to have significant right arm weakness, likely from brachial plexus pressure. He continues to have pain with shoulder motion. Objective Vitals Vital Signs Date Time Temp Pulse Resp B/P Pulse Ox O2 Delivery O2 Flow Rate FiO2 06/06/16 06:00 78 06/06/16 04:29 99 45 06/06/16 04:00 45 06/06/16 04:00 98.6 74 23 136/66 100 06/06/16 04:00 74 06/06/16 02:00 74 06/06/16 00:00 98.4 71 19 140/69 100 06/06/16 00:00 71 06/06/16 00:00 45 06/05/16 23:35 96 45 06/05/16 22:00 78 06/05/16 20:05 97 45 06/05/16 20:00 98.7 86 19 148/67 97 06/05/16 20:00 45 06/05/16 20:00 86 06/05/16 16:33 96 45 06/05/16 16:00 50 06/05/16 16:00 98.5 80 19 138/65 96 06/05/16 14:00 97 06/05/16 12:00 98.2 88 20 131/64 95 06/05/16 12:00 50 06/05/16 12:00 88 06/05/16 11:47 97 45 06/05/16 11:00 19 06/05/16 10:00 87 06/05/16 08:11 92 45 06/05/16 08:00 50 06/05/16 08:00 98.5 83 21 137/65 93 06/05/16 08:00 83 I/O 06/05/16 06/05/16 06/05/16 06/06/16 06/06/16 06/06/16 06:59 14:59 22:59 06:59 14:59 22:59 Intake Total 1225 ml 1268 ml 1193 ml 751 ml Output Total 2000 ml 1600 ml 700 ml 1600 ml Balance -775 ml -332 ml 493 ml -849 ml Intake Oral 700 ml 960 ml 480 ml 240 ml IV Total 525 ml 308 ml 713 ml 511 ml Output Urine Total 2000 ml 1600 ml 700 ml 1600 ml Result Diagram: 06/06/1633506/06/16335 Objective Remarks Wilfrido is awake. He has very limited movement of the shoulder elbow wrist or hand. He has diminished sensation in the right arm and hand. He is unable to flex and extend his fingers. Skin is intact around the shoulder. Assessment & Plan Assessment and Plan Wilfrido has a large abscess of the right shoulder. This appears to be creating a brachial plexus injury from the pressure on the nerve roots. Interventional radiology has been unable to place a drain. I will plan on surgery tomorrow for drainage of the abscess. I explained in depth the risk of surgery to patient. Nothing by mouth after midnight. Hold Lovenox for surgery. Continue medical care. Beau Velazquez MD Jun 06, 2016 07:22
[2016-06-06 07:25] LABS: BANDS 7 % (0-6); BASOPHILS 1 % (0-2); CORRECTED NUCLEATED RBC 1 /100 WBC (0-0); EOSINOPHILS 2 % (0-4); METAMYELOCYTES 8 % (0-1); MYELOCYTES 28 % (0-0); NEUTROPHIL # MANUAL DIFF 12.1 TH/MM3 (1.8-7.7); POLYS (SEG NEUTROPHILS) 36 % (16-70); PROMYELOCYTES 1 % (0-0); WBC DIFF SAMPLE 100
[2016-06-06 07:26] LABS: PLATELET ESTIMATE SMEAR NORMAL (NORMAL); PLATELET MORPHOLOGY NORMAL (NORMAL); POLYCHROMASIA 2.2 % (0.0-1.9); SCAN/DIFF FINAL DIFF MANUAL; STOMATOCYTES 1+ (NORMAL); TOXIC GRANULATION 1+ (NORMAL)
[2016-06-06] MEDS: CHLORHEXIDINE 0.12% (ORAL KIT) 15 ML CUP MT SCH ×2 (08:00→20:00)
[2016-06-06] MEDS: RESP: BUDESONIDE 0.5 MG/2 ML NEB NEB SCH ×2 (08:13→19:58)
[2016-06-06] MEDS: RESP: COLISTIN 150 MG VIAL NEB SCH ×3 (08:14→23:16)
[2016-06-06] MEDS: FAMOTIDINE 20 MG TAB PO SCH ×2 (08:46→20:06)
[2016-06-06] MEDS: DILTIAZEM HCL 90 MG TAB PO SCH ×4 (08:47→20:06)
[2016-06-06] MEDS: MULTIVITAMIN TAB PO SCH (08:47)
[2016-06-06] MEDS: SERTRALINE HCL 100 MG TAB PO SCH (08:47)
[2016-06-06] MEDS: BUMETANIDE INJ 1 MG/4 ML VIAL IV PUSH SCH (08:47)
[2016-06-06] MEDS: MONTELUKAST SODIUM 10 MG TAB PO SCH (08:47)
[2016-06-06] MEDS: FERROUS SULFATE 325 MG (65 MG ELEMENTAL IRON) TAB PO SCH (08:47)
[2016-06-06] MEDS: ATORVASTATIN 10 MG TAB PO SCH (08:47)
[2016-06-06] MEDS: ALLOPURINOL 300 MG TAB PO SCH (08:47)
[2016-06-06] MEDS: SODIUM CHLORIDE 0.9% FLUSH 5 ML FLUSH FLUSH SCH ×2 (08:48→20:07)
[2016-06-06] MEDS: MICONAZOLE NITRATE 2% CREAM 15 GM TOP SCH ×2 (08:52→20:07)
[2016-06-06] MEDS: COLLAGENASE OINT 30 GM TUBE TOP SCH (08:53)
[2016-06-06] MEDS: NYSTATIN 100,000 U/GM PWD 15 GM BTL TOPICAL SCH ×2 (08:53→20:07)
[2016-06-06] MEDS: FENOFIBRATE 48 MG TAB PO SCH (08:53)
--- NOTE | 2016-06-06 09:03 | HHI.FPPN ---
Subjective Remarks Afebrile. Normotensive. On CPAP (PEEP 8 FI02 45%) via trach with T-piece. Sat 96 -100% Overnight, continued emesis. Received Zofran, did not receive Compazine. Continued nausea this morning. Denies RUBY, blurred vision, SOB, CP/palpitations , RUE pain, abdominal pain, calf pain Voiding and stooling without difficulty. Able to roll in bed. Essentially non- ambulatory- receiving therapeutic Lovenox (Holley Baires MD R1) Objective Vitals Vital Signs Date Time Temp Pulse Resp B/P Pulse Ox O2 Delivery O2 Flow Rate FiO2 06/06/16 08:14 94 45 06/06/16 06:00 78 06/06/16 04:29 99 45 06/06/16 04:00 45 06/06/16 04:00 98.6 74 23 136/66 100 06/06/16 04:00 74 06/06/16 02:00 74 06/06/16 00:00 98.4 71 19 140/69 100 06/06/16 00:00 71 06/06/16 00:00 45 06/05/16 23:35 96 45 06/05/16 22:00 78 06/05/16 20:05 97 45 06/05/16 20:00 98.7 86 19 148/67 97 06/05/16 20:00 45 06/05/16 20:00 86 06/05/16 16:33 96 45 06/05/16 16:00 50 06/05/16 16:00 98.5 80 19 138/65 96 06/05/16 14:00 97 06/05/16 12:00 98.2 88 20 131/64 95 06/05/16 12:00 50 06/05/16 12:00 88 06/05/16 11:47 97 45 06/05/16 11:00 19 06/05/16 10:00 87 I/O 06/05/16 06/05/16 06/05/16 06/06/16 06/06/16 06/06/16 06:59 14:59 22:59 06:59 14:59 22:59 Intake Total 1225 ml 1268 ml 1193 ml 751 ml Output Total 2000 ml 1600 ml 700 ml 1600 ml Balance -775 ml -332 ml 493 ml -849 ml Intake Oral 700 ml 960 ml 480 ml 240 ml IV Total 525 ml 308 ml 713 ml 511 ml Output Urine Total 2000 ml 1600 ml 700 ml 1600 ml (Holley Baires MD R1) Result Diagram: 06/06/16 0336 06/06/16 0336 Imaging Last Impressions Chest X-Ray 06/03/16 0600 Signed Impressions: Service Date/Time: Friday, June 03, 2016 03:22 - CONCLUSION: 1. Cardiomegaly with bilateral pulmonary edema. 2. Moderate right pleural effusion. Vishnu Woodward MD Liver Ultrasound 06/03/16 0000 Signed Impressions: Service Date/Time: Friday, June 03, 2016 08:10 - CONCLUSION: 1. There is some sludge in the gallbladder. This can be seen with chronic gallbladder disease. 2. Fatty infiltration of the liver which appears to be enlarged. 3. No mechanical biliary tract obstruction. 4. Splenomegaly. Lázaro Frankel MD Brachial Plexus MRI 06/03/16 0000 Signed Impressions: Service Date/Time: Friday, June 03, 2016 12:42 - CONCLUSION: There is a complex multiloculated soft tissue and cystic mass measuring approximately 5.5 x 6.0 x 7.8 cm involving the subscapularis muscle along the anterior right scapula. The differential considerations include neoplastic disease, infection and hematoma. Recommend a CT scan of the right shoulder to pre-plan for CT-guided aspiration/biopsy of this abnormality. Lázaro Frankel MD Cervical Spine MRI 05/29/16 0000 Signed Impressions: Service Date/Time: Sunday, May 29, 2016 13:51 - CONCLUSION: Limited study but appears normal. iVshnu Woodward MD Brain MRI 05/29/16 0000 Signed Impressions: Service Date/Time: Sunday, May 29, 2016 13:51 - CONCLUSION: 1. Focal chronic ischemic change in the high right frontal parietal convexity stable from previous CT scan. 2. No acute intracranial abnormality. 3. Minimal nonspecific white matter changes. Vishnu Woodward MD Upper Extremity Ultrasound 05/28/16 0000 Signed Impressions: Service Date/Time: Saturday, May 28, 2016 10:16 - CONCLUSION: 1. Negative for deep venous thrombosis. Venous line noted in cephalic, subclavian and internal jugular vein. Horacio Gupta MD Abdomen X-Ray 04/29/16 0000 Signed Impressions: Service Date/Time: Friday, April 29, 2016 07:12 - CONCLUSION: Suspect Dobbhoff tube in the distal stomach. Garcia Lujan MD Objective Remarks GEN: Morbidly obese male in NAD. DERM: Warm and dry. Venous stasis changes lower regions. Nails bitten down. Yellow ecchymosis periumbilical region and R pannus, healing. No erythema or skin breakdown appreciated. Numerous skin folds 2/2 habitus. Bandage R lateral malleolus c/d/i. HEENT: Tracheotomy site c/d/i. Poor dentition. PERRL. EOMI. CV: Distant heart sounds. RRR. Normal peripheral perfusion. RESP: T-piece in place. FIO2 45 Transmitted upper respiratory sounds. No wheezing GI: Abdomen soft, obese, non-tender. +BS MSK: LE edema 2+ bilaterally. No calf tenderness NEURO: Grossly normal cranial nerves. Shoulder shrug intact. SILT x4 extremities. Can move fingers RUE, but unable to move against gravity. Can lift LUE to chest, not face. (Holley Baires MD R1) Date of Insertion: Apr 24, 2016 (Holley Baires MD R1) A/P Assessment and Plan 31y male w chronic respiratory failure s/p tracheostomy 4y ago and Pickwickian hypoventilation syndrome (BMI 60+) admitted from rehab for tx [id number] hypoxia and PNA. Discharge Planning Days, pending weaning from mechanical ventilation with stable clinical status and workup of R shoulder mass. Ideally, return to long-term rehab facility. If qualifies, could consider contract paralegal vent facility depending on status. Orthopedics, Critical care, ID, Psych, Neurology, IR, PT/OT, Rehabilitation consulted. Appreciate recommendations. (Holley Baires MD R1) Attending Attestation Pt. examined and case discussed with resident physicians I have read the above note and agree with the assessment/plan as discussed with me I was involved in all medical decision making for this patient Lázaro Rogers MD (Lázaro Rogers MD) Problem List: (1) CHF (congestive heart failure) Status: Chronic Plan: - Discussed diuresis care with Dr. Land, recommendations appreciated - Bumex, Zofran switched from IV to PO - Decrease Bumex to once daily (06/06) - 1mg PO daily + 40 KCl BID - Monitor I/Os, monitor renal function, peripheral edema Impression: Pt has large amount fluid output (3-4L/day). Good PO (1-2L oral liquids) as well as high amounts IV input (1-2L daily). No IV fluids in order set. Fluid source likely secondary to multiple IV medications, prompting changes to management as above. Likely HF with poor EF, though unable to confirm via ECHO (04/25/16) secondary to poor imaging . EF unknown. BNP was elevated to 400, decreasing. (2) Bacteremia Status: Acute Plan: - Vancomycin 2000mg IV daily + Vanc pharm consult, goal trough 15-20, (06/03 -- ) - Start ceftozolane/tazobactam q8h (06/05-- ) - Colistin 75mg q8h NEB - Acetaminophen 325mg PRN fever - Continue to follow repeat blood cultures (06/03, 06/05 pending) Impression: Ddx: sepsis secondary to PICC infection (PICC removed 06/03) vs benign colonization vs viral infection. +blood, sputum, and urine cultures () that grew Pseduomonas aeruginosa and Enterocococus faecalis. Serial CXRs grossly unchanged: cardiomegaly w b/l pulmonary edema. Moderate R pleural effusion. Abx History Zosyn 4.5gm IV q6h (04/24 - 04/29) Levaquin 750mg IV q24h (04/24-04/30) Zerbaxa 1.5 g IV q8h (04/29 - 05/07) Vancomycin IV (04/24 - 05/06) Ceftriaxone IV (05/07 - 05/25) Linezolid 600 mg PO BID (05/06 - 05/13) Vancomycin (06/03-- ) Zosyn 3.375 q6h (06/04- 06/05) Ceftozolane/Tazobactam (06/05 --) (3) Nausea Status: Chronic Plan: - Alternate Zofran 4mg PO q6h PRN with - Alternate Compazine 5mg PO q6h PRN - Continue Ranitidine BID -Consider changing to PPI after surgery if adding compazine not control nausea Impression: Chronic- poorly controlled. Ddx: medication side effect vs psychosomatic vs impaired gastric emptying vs GERD (4) Mass of soft tissue of right upper extremity Status: Acute Plan: - Orthopedics (Dr Macias) will take for aspiration/biopsy in OR tomorrow - NPO after midnight - Tissue culture/pathology should be ordered, pending removal type - Continue daily PT/OT, as tolerated, to strengthen RUE and body. Goal: self- feeding Impression: Multiloculated soft tissue and cystic mass 6 x 6 x 8cm involving R subscapularis muscle causing weakness RUE. IR deemed CT-guided biopsy not possible. Ddx: abscess vs neoplasm vs hematoma. Prior to hospitalization, able to transfer to wheelchair and feed self. Now significant acute RUE weakness and generalized weakness to point unable to feed self. Initially thought C6/C7 neuropathy 2/2 morbid obesity and positioning, however MRI brachial plexus identified soft tissue mass. DVT, L hemispheric pathology, and seizure ruled out w imaging (see below). EMG scheduled, but unable to be performed secondary to desaturation. Imaging: - US negative for DVT (05/28) - MRI brain (04/28) no acute intracranial process - MRI C-spine (05/29): grossly wnl - EEG (05/29): diffuse mild encephalopathy vs normal Stage 2 sleep - MRI brachial plexus (06/03): "Complex multiloculated soft tissue and cystic mass 5.5 x 6 x 7.8 cm involving subscapularis muscle along anterior R scapula (5) On mechanically assisted ventilation Status: Acute Plan: - Weaning via critical care - CPAP (PS 15, PEEP 8, FiO2 45%) via trach t-piece - Pulmicort BID REYES - Duonebs q2h PRN - Singulair 10mg daily Impression: Acute on chronic hypoxemic respiratory failure secondary to HCAP ( resolved) and tracheostomy leak (s/p exchange 05/02). Baseline 6L NC at rehab. Mechanical ventilation 04/24. Critical care managing weaning. Solumedrol (05/10- 06/03) (6) Stable medical conditions Status: Chronic Plan: HYPERLIPIDEMIA -Atorvastatin 10mg daily and Tricor 48mg daily HYPERTENSION -Cardiazem 90mg QID PAROXYSMAL AFIB - Hold Xarelto while on therapeutic Lovenox. EKG 05/17: sinus rhythm. NORMOCYTIC ANEMIA - Ferrous sulfate 325mg PO daily - Multivitamin 1 tab PO daily MDD: - Pt reports stable mood; some anhedonia suspected. Previously, refusing meals , shower, PT - Sertraline 100 mg PO daily - Seroquel 100mg HS INSOMNIA -Zolpidem 5mg HS PRN GOUT -Allopurinol 300mg daily HYPOTHYROIDISM 08/2015- TSH low, free T4 grossly wnl (05/27/16) -Synthroid 50 mcg PO daily FUNGAL INFECTION -Nystatin powder and miconazole creme to skin folds MORBID OBESITY WITH BMI 60-69 -see above plan for mechanical ventilation RESOLVED CONDITIONS THIS HOSPITAL VISIT - Cellulitis of Chest Wall: completed course linezolid (05/06-05/13), per ID recs - Yeast UTI: completed course Diflucan. UCx 05/01: Dionne albicans. Repeat UCx 05/05: Proteus Mirabilis - HCAP: s/p multiple abx (7) Nutrition, metabolism, and development symptoms Status: Acute Plan: FEN: Fluids: PO (Limited to 2L, consider limiting further) Electrolytes: 40KCl BID. Chronically hypokalemic, replete per protocol Nutrition: 2Kcal heart healthy diet. Transitioned to oral feeds (05/29). Needs help with feeding. PPX: GI ppx: Famotidine 20mg BID DVT PPx: Therapeutic Lovenox 150mg SQ BID Pain: Oxycodone 7.5/325 q4 PRN Bowels: Senna 1 tab HS PRN Wt: Admission: 480 lbs. Wt 06/06- 452 lbs. Continue monitor, encourage, modify/restrict diet, as appropriate DW: Dr. Land, Dr. Rogers SDW: Dr. Kelly (Holley Baires MD R1) Problem Qualifiers (1) CHF (congestive heart failure): Qualified Code: I50.9 - Acute on chronic congestive heart failure, unspecified congestive heart failure type Holley Baires MD R1 Jun 06, 2016 09:03 Lázaro Rogers MD Jun 06, 2016 21:59
[2016-06-06] MEDS ORDERED: BUMETANIDE 1 MG TAB PO SCH (09:15)
--- NOTE | 2016-06-06 10:12 | HHI.CCPN ---
Subjective Remarks/Hospital Course 31 year old morbidly obese (BMI 68) male with chronic respiratory failure s/p tracheostomy 4 years ago, atrial fibrillation and pulmonary embolism on Xarelto , COPD, CHF and h/o HTN. He presented from [facility] with low oxygen saturation apparently his oxygen saturation was 82% on RA. He was placed back on 6L of oxygen via his trach mask and given a breathing treatment, initially improved however he started drifting back to low 80s again. Chest x-ray showed bibasilar infiltrates and pulmonary edema. Patient was admitted to the [facility] and was started on IV steroids IV vancomycin and Zosyn and Levaquin for healthcare associated pneumonia. After starting ACV, patient was more awake but there was a significant amount of air leak around his tracheostomy. Patient has had a Shiley 6.0 Proximal XLT, but the pilot fuel engineer balloon had been cut off. 05/02 the patient became acutely hypoxemic with a large cuff leak, underwent emergency trach exchange at bedside by Dr. Macias. FiO2 65% PEEP 14 05/13 Patient is on ventilator via trach, on Fentanyl infusion however he is awake and alert. On PRVC with FIO2 40%. Afebrile. 05/14 No acute events overnight. Tmax 99.8. Patient is awake, alert on ventilator via trach still requiring increase O2. On PRVC with PEEP: 10 and FIO2 70%. 05/15 patient acutely desaturated after he was found. Saturation went down to 70% on 100% oxygen. Bag and mask ventilation carried out, with eventual improvement on oxygen saturation to 85%. Patient was placed on PC/AC mode of ventilation, with PEEP of 15 and instructed to pressure of 30. Eventually oxygen saturation improved to 95%. Lasix him today as the chest x-ray from today shows increasing bilateral infiltrate and pulmonary edema. Also sputum culture will be sent 05/16 Patient is on Fentanyl and Diprivan infusion but awake and alert. Afebrile. On PC/AC with PEEP:15, IP: 22, IT:1.3 and FIO2 50% 05/17 Patient is off Diprivan and remains on Fentanyl infusion for sedation. On PC/AC with PEEP: down 10 and FIO2 40%. Afebrile. 05/18 Patient remains on ventilator via trach on PC/AC with PEEP:12, FIO2 40%, IP:22, IT:1.0. On Fentanyl infusion 05/19 No acute events overnight. On Fentanyl infusion but awake and alert. Afebrile. 05/20 Tolerating C Pap 17/12 FIO2 40, sats 98%. RSBI in 20s, appears can be weaned further. Afebrile. Speech therapy evaluated and ok for regular diet. Starting with full liquid. 05/21 Will wean PSV to 15/10. Tolerated full liquids, will advance to regular diet per speech recs. Subjective: 05/22 On PSV 15/10 FIO2 40 with sats 92%. Smiling today. Glad to be eating regular food again. 05/23 No acute events overnight. Remains on CPAP with PS 15, PEEP:10 and FIO2 40 %. Afebrile. Off Fentanyl drip. Afebrile. Awake and alert. 05/24 Patient is on CPAP 06/06 with 40% FIO2. Afebrile. Awake and alert, on no sedation. 05/25 No acute events overnight. Patient was placed back on PC/AC overnight. Tolerated CPAP trials during day yesterday. Awake and alert. On no drips. Afebrile. 05/26 Afebrile. Tmax 98.6. Today the patient complained of nausea requiring Zofran. The patient has a lack of an appetite, with noted hypoglycemia early this a.m. blood glucose level 69. Patient tolerating CPAP well greater than 12 hours in the last 24 hours. 05/27 The patient tolerated CPAP for over 36 hours, O2 sat a knee 94% on FIO2 40 %. The patient had an increase in appetite. The patient continues on full liquid diet. 05/28 The patient declined physical therapy treatment, yesterday and also overnight declined to be moved by nursing staff. The patient refused dinner last evening, of note patient was reevaluated by speech therapy and can consume a heart healthy diet with thin liquids. The patient continues on physical therapy for strengthening exercises of all extremities specifically noted right upper extremity continues to be weak with gross fibrillations noted in hand and forearm. 05/29 Afebrile. No change in right upper extremity weakness. The patient was seen by neurology yesterday plan for MRI today if possible in hospital MRI, and EMG studies. No complaints overnight. Patient continues to refuse to have activities performed, movement in bed. The patient appears to be depressed, psychiatry consulted. 05/30: Patient alert awake on CPAP. Following commands. Psych agrees the patient is depressed. MRI brain no acute findings 05/31: Awake alert. on PS 11/02. EMG could not be completed due to patient becoming anxious. Otherwise no acute events reported overnight 06/01: Remains PS from 11/02. Right upper extremity weakness persists. EMG to be repeated on Friday. Will need MRI of the brachial plexus. Chest x-ray is unchanged 06/02: States that "not feeling well". Febrile to 101.5. White count increasing but still within the normal range. Pancultured. We'll request ID reevaluation. 06/03: Resting in bed on C Pap/pressure support via tracheostomy. One out of 2 sets of blood cultures sent on 06/02 positive for gram-positive cocci. 06/04: Resting in bed on mechanical ventilation via tracheostomy. Afebrile overnight. MRI brachial plexus (06/03) revealed a collection near the right subscapularis muscle, possibly an abscess. Discussed with ID, orthopedics Dr. Velazquez consulted. I discussed the case with Dr. Velazquez this morning who feels this is probably an abscess however would be difficult to access surgically and he plans to set up percutaneous drainage by interventional radiology. 06/05: Resting in bed on mechanical ventilation via tracheostomy. Remains afebrile. Reportedly IR cannot do percutaneous drainage of collection involving right subscapularis muscle. 06/06: Resting in bed on mechanical ventilation via tracheostomy. Can actually speak around the trach. Remains afebrile. Dr. Velazquez evaluated patient and is scheduling surgery for drainage of fluid collection involving the right subscapularis muscle. Objective Vital Signs Date Time Temp Pulse Resp B/P Pulse Ox O2 Delivery O2 Flow Rate FiO2 06/06/16 09:00 45 06/06/16 08:14 94 06/06/16 08:00 98.3 76 17 139/65 Intake and Output 06/05/16 06/05/16 06/05/16 07:59 15:59 23:59 Intake Total 1225 ml 1268 ml 1193 ml Output Total 2000 ml 1600 ml 700 ml Balance -775 ml -332 ml 493 ml Result Diagram: 06/06/16 0336 06/06/16 0336 Imaging Last Impressions Chest X-Ray 05/20/16 0000 Signed Impressions: Service Date/Time: Friday, May 20, 2016 03:21 - CONCLUSION: Persistent mid and lower lung areas of consolidation or atelectasis being worse in the right. There has been mild improvement. Garcia Lujan MD Upper Extremity Ultrasound 05/02/16 0000 Signed Impressions: Service Date/Time: April 20:51 - CONCLUSION: No DVT. Garcia Lujan MD Abdomen X-Ray 04/29/16 0000 Signed Impressions: Service Date/Time: Friday, April 29, 2016 07:12 - CONCLUSION: Suspect Dobbhoff tube in the distal stomach. Garcia Lujan MD Objective Remarks GENERAL: Patient is 31yo on ventilator via trach, awake and follows commands. Super Morbidly obese. Communicating appropriately SKIN: Warm and dry. HEAD: Normocephalic. EYES: No scleral icterus. No injection or drainage. NECK: Supple, trachea midline. Shiley 6.0 Proximal XLT, (new trach placed ) CARDIOVASCULAR:Tachycardic without murmurs, gallops, or rubs. RESPIRATORY: On mechanical ventilation, Breath sounds equal bilaterally. Distant secondary to habitus. GASTROINTESTINAL: Abdomen soft, obese, non-tender, nondistended. Multiple noted areas of ecchymotic bruising secondary to subcutaneous injections MUSCULOSKELETAL: No cyanosis, or edema. Pedal edema. Wound on lateral aspect of right lower leg above lateral malleolus , dressing C/D/I. right upper extremity motor strength, inability to perform flexion, or pronation, hand dedicated owner operator strength 2/5. Neuro: Awake and alert. Moves all extremities with focal deficit right upper extremity as above. Date of Insertion: Apr 24, 2016 A/P Assessment and Plan ASSESSMENT Acute hypercapnic and hypoxemic respiratory failure Acute worsening of hypoxia due to lung de-recruitment 05/15/16 Healthcare associated pneumonia MDR Pseudomonas Enterococcal bacteremia Pseudomonas bacteremia Collection near right subscapularis muscle(On MRI 06/03) - abscess Sepsis CHF exacerbation CO2 narcosis Tracheostomy pilot fuel engineer balloon damage -status post exchange with new Shiley 6.0 Proximal XLT 05/02/16 Chronic Respiratory Failure s/p Tracheostomy 4 years ago (Shiley 6.0 Proximal XLT) Probable right brachial plexus injury COPD/obesity hypoventilation syndrome Morbid Obesity BMI 67 History of pulmonary embolism 4 years ago Chronic atrial fibrillation Anxiety CHF (Echo 2014 EF 40-45%; ECHO 08/2015 showing a grossly normal systolic function) Hypertension Hypothyroidism PLAN NEURO: CO2 narcosis - resolved Critical care polyneuropathy Right upper extremity weakness 05/21-possibly secondary to nerve compression, C6 , C7 (brachial plexus) Pain Anxiety Depression -EMG/ NCV could not be completed on 05/[address] Castillo -Right upper extremity absence of triceps reflex, diminished sensation/numbness in C6-C7 dermatome level both anterior and posterior, inability for pronation, handgrip strength 2/5, lack of wrist extension/flexion. C6, C7 myotome pattern of muscle weakness.Positive shoulder abduction/adduction. -Clinically probably has right brachial plexus injury. MRI of brachial plexus- scheduled for 06/03 -Continued PT daily, with strengthening exercise (encouraged patient to participate) patient counseled on the importance. -Neurology Dr. Cheek-MRI brain C spine no acute findings. -Venous Doppler RUE 05/28-negative for DVT -Psychiatric consultation-agrees patient is depressed, Added Seroquel. Continue Zoloft 50mg daily -On morphine 4 mg IV every 3 hours as needed for breakthrough pain. RESP: Acute hypercapnic and hypoxemic respiratory failure Acute lung derecruitment 05/15 with hypoxia Healthcare associated pneumonia Tracheostomy pilot fuel engineer balloon damage (Shiley 6.0 Proximal XLT) s/p new trach placement 05/02 Chronic Respiratory Failure s/p Tracheostomy 4 years ago COPD/obesity hypoventilation syndrome History of pulmonary embolism 4 years ago Leukocytosis-resolved Pulmonary edema - Continue with vent support keep sat >90%. Currently on CPAP. Attempt TP/TC if PS can be reduced - PSV 06/03 FiO2 45% and continue weaning as tolerated. - s/p Bronchoscopy 05/11 -follow up on BAL results-negative - DuoNeb every 6 hours scheduled, q 2 prn. - Pulmicort BID (home med), Continue Singulair 10 mg po daily - Therapeutic Lovenox 150 mg every 12 hours, consider transition to Xarelto ( home med) upon planned discharge CV: CHF exacerbation Pulmonary edema Paroxysmal atrial fibrillation (chronic) Hyperlipidemia -Monitor HR and BP keep MAP>65mmHg -Systolic BP [id number], continue to monitor trend possible escalation of antihypertensive meds -on Cardizem 60mg QID. Decrease bumex to 1mg daily PO from 1mg IV Q12 on 06/06. Decrease IVF to 50cc/hr on 06/06 -Continue Lipitor 10 g by mouth daily. Continue TriCor 40 mg by mouth daily -Therapeutic Lovenox 150 mg twice a day GI: Super morbid obesity with BMI of 63 -Regular diet ,thin liquids per speech recs. Refusing meals due to lack of appetite, Nausea -Liver US 06/03: Fatty liver, sludge in gall bladder, splenomegaly, no mechanical obstruction of bile duct noted. -On Pepcid 20mg BID -Multivitamin to medication regimen -Consider dietary supplementation FEN/RENAL: Hypokalemia - Monitor renal function , I/O. - Electrolytes replacement per protocol. - Bumex 1 mg IV q12 changed to 1mg PO daily on 06/06. KCL 40 q12 ID: Healthcare associated pneumonia Sepsis New fever MDRO Cellulitis right arm-resolved Leukocytosis-resolved Enterococcal faecalis bacteremia, Pseudomonas bacteremia (06/02, 06/03) -Rocephin (05/12- 05/25) -Blood culture: aerobic and anaerobic bottles - enterococcus faecalis, pseudomonas aeruginosa 06/02, 06/03 -Urine culture GNR 06/02 Wound culture GNR 06/02 Sputum culture GNR 06/02 -Urine cx: Proteus Mirabilis 05/05 -Sputum cx: Providencia 05/05- resolved -Wound cx: 05/13 Proteus, Pseudomonas, Group D Enterococcus -Wound culture Pseudomonas MDR 04/27 -Sputum culture-Pseudomonas MDR- 04/27 -Bronchoscopy and re-culture 05/10 follow up on BAL results-neg to date -Follow up on sputum cx from 05/15- NGTD -Repeat cultures sent on 06/02 including wound culture from the right lower extremity wound and resulted as above -Started on IV vancomycin 06/03 for GPC in blood culture - possibly from PICC which was removed after placement of Per IV on 06/03. Continues on colistin nebs. ID following. MRI brachial plexus (06/03) revealed a collection involving right subscapularis muscle near right anterior axilla , possibly an abscess. Discussed with ID on 06/02, Orthopedics Dr. Velazquez consulted and following. Dr. Velazquez scheduled drainage of collection surgically for 06/07. HEME: History of PE on chronic anticoagulation with Xarelto Anemia, iron deficiency and anemia of critical illness. -Monitor CBC, -Xarelto for PE 4 yrs ago. -Xarelto.held, On therapeutic Lovenox 150 mg twice a day - to be held for possible IR percutaneous drainage of collection involving right subscapularis. -Ferrous sulfate 300 mg/q day ENDO: Hypothyroidism -On SSI (Low scale) -Continue levothyroxine 50 mcg po daily -Free T4 1.52 PROPH: -Bilateral lower extremity SCDs. Lovenox DVT therapeutic dose. GI prophylaxis- Pepcid 20mg BID LINES: - PICC line RUE- No DVT on US 05/02 - removed on 06/03. Out of bed with assistance. PT out of bed with vent. OT. Discussed with ID, D/W POT PUSHER. D/W Family Medicine service. Bo Land MD Jun 06, 2016 10:12
[2016-06-06] MEDS: POTASSIUM CHLORIDE 20 MEQ CONTROLLED RELEASE TAB PO SCH ×2 (11:00→23:05)
--- NOTE | 2016-06-06 11:14 | HHI.IDPN ---
Subjective Subjective Remarks ID Xcover for . Chart reviewed. Patient known to me from prior visits. 31 y/o Morbidly obese CM, with Chronic respiratory failure, prior h/o HCAP with MDR PSAE that are resistant to Cefepime and Zosyn. Reconsulted for fevers. Overnight events reviewed with RN. No fever RN reports 2 episodes of vomiting. Patient reports epigastric pain, nausea off and on for several weeks now ? GERD. Secretions white, thin per RN. No change in vent settings. On CPAP all day for many days. Patient reports no change in breathing effort. Opens eyes follows commands and mouths words. BP ok not on pressors. No rash No diarrhea. PICC line RUE discontinued. Antibiotics Colistin nebs Zerbaxa IV Vanco IV Lines PIVs Past Medical History Chronic Respiratory Failure s/p Tracheostomy 4 years ago Morbid Obesity w/ BMI 67.6 Atrial fibrillation Pulmonary embolism 4 years ago Anxiety CHF (Echo 06/07/2014 w/ EF 40-45%; ECHO 08/2015 showing a grossly normal systolic function) HTN Hypothyroidism Past Surgical History Tracheostomy Tonsillectomy Allergies: Coded Allergies: *MDRO Multi-Drug Resistant Organism (Verified Adverse Reaction, Unknown, 05/08/16) XDR Pseudomonas aeruginosa (sputum) - 09/18/15; (sputum & wound) - 04/27/16 Objective . Vital Signs Date Time Temp Pulse Resp B/P Pulse Ox O2 Delivery O2 Flow Rate FiO2 06/06/16 09:00 45 06/06/16 08:14 94 45 06/06/16 08:00 98.3 76 17 139/65 94 06/06/16 08:00 45 06/06/16 06:00 78 06/06/16 04:29 99 45 06/06/16 04:00 45 06/06/16 04:00 98.6 74 23 136/66 100 06/06/16 04:00 74 06/06/16 02:00 74 06/06/16 00:00 98.4 71 19 140/69 100 06/06/16 00:00 71 06/06/16 00:00 45 06/05/16 23:35 96 45 06/05/16 22:00 78 06/05/16 20:05 97 45 06/05/16 20:00 98.7 86 19 148/67 97 06/05/16 20:00 45 06/05/16 20:00 86 06/05/16 16:33 96 45 06/05/16 16:00 50 06/05/16 16:00 98.5 80 19 138/65 96 06/05/16 14:00 97 06/05/16 12:00 98.2 88 20 131/64 95 06/05/16 12:00 50 06/05/16 12:00 88 06/05/16 11:47 97 45 06/05/16 06/05/16 06/06/16 15:00 23:00 07:00 Intake Total 1268 ml 1193 ml 751 ml Output Total 1600 ml 700 ml 1600 ml Balance -332 ml 493 ml -849 ml Intake Oral 960 ml 480 ml 240 ml IV Total 308 ml 713 ml 511 ml Output Urine Total 1600 ml 700 ml 1600 ml . Laboratory Tests Test 06/06/16 03:36 White Blood Count 15.1 TH/MM3 Red Blood Count 3.57 MIL/MM3 Hemoglobin 8.7 GM/DL Hematocrit 28.8 % Mean Corpuscular Volume 80.5 FL Mean Corpuscular Hemoglobin 24.4 PG Mean Corpuscular Hemoglobin 30.3 % Concent Red Cell Distribution Width 24.5 % Platelet Count 318 TH/MM3 Mean Platelet Volume 6.8 FL Neutrophils (%) (Auto) % Lymphocytes (%) (Auto) % Monocytes (%) (Auto) % Eosinophils (%) (Auto) % Basophils (%) (Auto) % Neutrophils # (Auto) TH/MM3 Lymphocytes # (Auto) TH/MM3 Monocytes # (Auto) TH/MM3 Eosinophils # (Auto) TH/MM3 Basophils # (Auto) TH/MM3 CBC Comment AUTO DIFF Differential Total Cells 100 Counted Neutrophils % (Manual) 36 % Band Neutrophils % 7 % Lymphocytes % 11 % Monocytes % 6 % Eosinophils % 2 % Basophils % 1 % Neutrophils # (Manual) 12.1 TH/MM3 Metamyelocytes 8 % Myelocytes 28 % Promyelocytes 1 % Nucleated Red Blood Cells 1 /100 WBC Differential Comment FINAL DIFF MANUAL Toxic Granulation 1+ Platelet Estimate NORMAL Platelet Morphology Comment NORMAL Polychromasia 2.2 % Basophilic Stippling MOD Stomatocytes 1+ Laboratory Tests Test 06/06/16 03:36 Sodium Level 140 MEQ/L Potassium Level 3.2 MEQ/L Chloride Level 95 MEQ/L Carbon Dioxide Level 37.3 MEQ/L Anion Gap 8 MEQ/L Blood Urea Nitrogen 6 MG/DL Creatinine 0.39 MG/DL Estimat Glomerular Filtration 257 ML/MIN Rate Random Glucose 87 MG/DL Calcium Level 8.7 MG/DL Microbiology Date/Time Procedure Status Source Growth 06/03/16 11:22 Aerobic Blood Culture - Preliminary Resulted Blood Peripheral NO GROWTH IN 3 DAYS 06/03/16 11:22 Anaerobic Blood Culture - Preliminary Resulted Blood Peripheral NO GROWTH IN 3 DAYS 06/05/16 03:20 Aerobic Blood Culture Received Blood Peripheral Pending 06/05/16 03:20 Anaerobic Blood Culture Received Blood Peripheral Pending 06/05/16 03:26 Aerobic Blood Culture Received Blood Peripheral Pending 06/05/16 03:26 Anaerobic Blood Culture Received Blood Peripheral Pending Imaging Chest X-Ray 05/20/16 0000 Signed Impressions: Service Date/Time: Friday, May 20, 2016 03:21 - CONCLUSION: Persistent mid and lower lung areas of consolidation or atelectasis being worse in the right. There has been mild improvement. Garcia Lujan MD Chest X-Ray 05/16/16 0600 Signed Impressions: Service Date/Time: April 03:21 - CONCLUSION: 1. Slight improvement in bilateral airspace disease over the last day. Horacio Gupta MD Chest X-Ray 05/15/16 06 Signed Impressions: Service Date/Time: Sunday, May 15, 2016 04:31 - CONCLUSION: 1. Slight increase in airspace disease since May 13. Differential diagnosis includes pulmonary edema. Support apparatus unchanged. Horacio Gupta MD Chest X-Ray 05/13/16 06 Signed Impressions: Service Date/Time: Friday, May 13, 2016 03:26 - CONCLUSION: 1. Stable exam compared with May 12 with bilateral mostly basilar airspace disease. Horacio Gupta MD Chest X-Ray 05/10/16 06 Signed Impressions: Service Date/Time: Tuesday, May 10, 2016 02:45 - CONCLUSION: Worsening right lower lobe infiltrate. Jeremiah Walton Jr., MD Chest X-Ray 05/09/16 0600 Signed Impressions: Service Date/Time: April 02:52 - CONCLUSION: No significant change has occurred. Bill Zavala MD Chest X-Ray 05/08/16 0600 Signed Impressions: Service Date/Time: Sunday, May 08, 2016 04:01 - CONCLUSION: No significant change has occurred. Bill Zavala MD Chest X-Ray 05/05/16 0600 Signed Impressions: Service Date/Time: Thursday, May 05, 2016 01:56 - CONCLUSION: Improved aeration bilaterally particularly in the left upper lobe. Tube and catheter are stable. Amador Brock MD Chest X-Ray 05/03/16 0000 Signed Impressions: Service Date/Time: Tuesday, May 03, 2016 06:40 - CONCLUSION: Increasing bilateral diffuse pulmonary infiltrates compared to the prior study. Lázaro Frankel MD Upper Extremity Ultrasound 05/02/16 0000 Signed Impressions: Service Date/Time: April 20:51 - CONCLUSION: No DVT. Garcia Lujan MD Abdomen X-Ray 04/29/16 0000 Signed Impressions: Service Date/Time: Friday, April 29, 2016 07:12 - CONCLUSION: Suspect Dobbhoff tube in the distal stomach. Garcia Lujan MD Physical Exam GENERAL: Awake and alert, on CPAP, comfortable SKIN: Warm and moist. No generalized rash. HEENT: [place] conjunctivae. No scleral icterus. Moist mucosa. NECK: Short and obese, has trach, site ok. Supple, no meningeal signs. CARDIOVASCULAR: Regular rate and rhythm. Distant heart sounds. RESPIRATORY: Decreased BS bilaterally. GASTROINTESTINAL: Abdomen soft, morbidly obese, not tender, not distended. MUSCULOSKELETAL: Extremities without clubbing, cyanosis. Has mild pitting edema. NEUROLOGICAL: Awake and following, responding : [place] in place, urine looks clear Assessment & Plan Remarks IMPRESSION E.faecalis and Pseudomonas bacteremia: from PICC line site with fevers: Central line associated blood stream infection(CLABSI). Scapular areas mass ? infection ? other etiologies such as liposarcoma etc. Chronic respiratory failure, - C/S with MDR PSAE, Cefepime resistant, Zosyn resistant in past. Await new cultures. MDR PSAE PNA, S/P Rx PSAE in urine: likely colonization or translocation of bacteria from PSAE bacteremia. Morbid obesity Sleep apnea Hx PE Anorexia RECOMMENDATION Continue Vanco IV (target trough 15-20) Continue Zerbaxa IV (ASP: has known MDR PSAE and now has bacteremia. Will follow cultures and deescalate) Continue Colistin nebs. Plan for OR in am per Ortho for scapular mass. Sputum Cx reviewed. Not much secretions. Will only suppress organism with Colistin given prior MDR and clinically stable at this point. Wound cultures reviewed: superficial cultures by Swab per [facility] orders. Will not treat as no e/o infection at sites. No erythema or induration surrounding it. Follow cultures Follow clinically. D/w [facility] D/w RN D/w Pt Margo Land MD Jun 06, 2016 11:14
[2016-06-06] MEDS: ONDANSETRON ODT 4 MG TAB PO PRN (12:01)
--- NOTE | 2016-06-06 13:13 | MB ---
cc: MONICAJAMESON DATE OF CONSULTATION 06/04/2016 REASON FOR CONSULTATION Right shoulder abscess HISTORY Wilfrido is a 31-year-old male who has multiple medical problems. He has morbid obesity with a BMI of 67.6. He has chronic respiratory failure with tracheostomy. He has also had a history of pulmonary embolism. He presented to the emergency room with further respiratory failure and was admitted to the intensive care unit. The patient subsequently developed right arm weakness. Neurology was consulted. A subsequent MRI was performed. The patient was thought to have a possible brachial plexus injury. MRI of the shoulder revealed a large abscess underneath the scapula. He is currently awake and alert in the Intensive Care Unit. He complains of right shoulder pain with right arm weakness. Pain is worse with movement and is improved with rest. PAST MEDICAL HISTORY ILLNESSES 1. Chronic respiratory failure 2. Morbid obesity 3. Atrial fibrillation 4. Pulmonary embolism 5. Anxiety 6. CHF 7. Hypertension 8. Hypothyroidism SURGERIES 1. Tonsillectomy 2. Tracheostomy MEDICATIONS Please see EMR for a complete list of inpatient medications. This was reviewed. ALLERGIES NO KNOWN DRUG ALLERGIES. FAMILY HISTORY Unobtainable. The patient has tracheostomy and is unable to answer questions. SOCIAL HISTORY The patient has been living in an [facility]. He denies alcohol, tobacco or drug use. REVIEW OF SYSTEMS Unobtainable secondary to tracheostomy and inability to talk currently. PHYSICAL EXAMINATION The patient is a morbidly obese 31-year-old male who is awake. He is in no acute distress. VITAL SIGNS: Temperature 98.3, pulse 84, respirations 15, blood pressure 125/59, O2 sat 98% on FIO2 50%. HEAD: The patient is normocephalic. EYES: Pupils are equal. NECK: Tracheostomy is in place. Neck is supple. ABDOMEN: Soft, nontender, nondistended. EXTREMITIES: Examination of right arm reveals minimal motor function of the shoulder, elbow or wrist or hand. He is unable to flex or extend his fingers. Radial pulses palpable. He has some discomfort with any shoulder motion. He has no pain with elbow or wrist motion. Skin is intact. Examination of left arm reveals no obvious pain or deformity with shoulder, elbow or wrist motion. Skin is intact. He has good cap refill in his fingers. Sensation is intact. Examination of bilateral lower extremities reveals no obvious pain deformity with hip, knee or ankle motion bilaterally. Skin is intact in both feet. He has good cap refill in his toes. LABORATORY DATA The patient has a white blood cell count of 9.0 with a hematocrit of 27.3. MRI of right shoulder was reviewed. The patient has a large fluid collections underneath the scapula along the subscapularis muscle. IMPRESSION 1. Right upper extremity weakness with possible brachial plexus dysfunction. 2. Large right shoulder abscess. PLAN Treatment options were discussed with the patient. I explained to the patient that surgically this would be difficult to debride the abscess. At this point, I would recommend having Interventional radiology try to drain the abscess and place a drain to help decompress it. It is unclear if the patient's right arm weakness is secondary to the abscess. The abscess does not appear to be directly involved in the brachial plexus, but could potentially be causing some pressure in the region of the complex was causing dysfunction. I will continue to follow patient's progress. I will follow up after interventional radiology has completed the drainage. All questions were answered. A mid-level provider in my office (nurse practitioner or physician wet process assistant head miller) may see this patient on follow-up visits and continue to implement the objectives of this plan including: Starting or adjusting medications, injections , cast application, orthotics, brace application, physical therapy, radiological studies (including x-ray, MRI, CT, ultrasound, bone scan), vascular studies, neurologic studies, specialist consultation, and proceeding with surgical management, as appropriate. MD ISABELLE Luna/SHERRI /8:14 AM /1:01 PM KISHA
[2016-06-06 18:52] LABS: BACTERIA, URINE FEW /hpf; BLOOD, URINE MOD (NEG); GLUCOSE,URINE NEG (NEG); KETONE, URINE NEG (NEG); MUCUS URINE FEW /lpf (OCC); NITRITE,URINE NEG (NEG); SQUAMOUS EPITHELIAL CELL URINE 16 /hpf (0-5); URINE COLOR YELLOW (YELLW/STRAW)
[2016-06-06 18:57] LABS: COMMENT (UR) CATH-CULTURE IND; CULTURE IF INDICATED CATH CULTURE IND
[2016-06-06 19:27] LABS: APTT (PATIENT) 31.9 SEC (24.3-30.1); INTERNATIONAL NORMALIZED RATIO 1.2 RATIO
[2016-06-06] MEDS: QUEtiapine FUMARATE 100 MG TAB PO SCH (20:06)
[2016-06-06 21:02] LABS: MEAN CORPUSCULAR HGB CONC 29.9 % (32.0-36.0)
[2016-06-07] VITALS (18 sets, daily range): BP systolic 135–169; BP diastolic 68–77; PULSE 71–84; RESP 15–22; TEMP 97.9–98.8; O2SAT 93–100
[2016-06-07] MEDS: VANCOMYCIN INJ 2,000 MG in SODIUM CHLORID 0.9% 500 ML INJ 500 ML IV SCH ×2 (01:29→13:23)
[2016-06-07] MEDS: CEFTOLOZANE-TAZOBACTAM INJ 1,500 MG in SODIUM CHLORIDE 0.9% INJ 100 ML IV SCH ×3 (05:09→20:59)
[2016-06-07] MEDS: LEVOTHYROXINE SODIUM 50 MCG TAB PO SCH (05:09)
--- NOTE | 2016-06-07 07:06 | PD.ORT.PN ---
Subjective Subjective Remarks pain controlled no new complaints Objective Vitals Vital Signs Date Time Temp Pulse Resp B/P Pulse Ox O2 Delivery O2 Flow Rate FiO2 06/07/16 06:00 80 06/07/16 04:09 97 40 06/07/16 04:00 40 06/07/16 04:00 76 06/07/16 04:00 98.6 76 19 147/70 97 06/07/16 02:00 71 06/07/16 00:00 40 06/07/16 00:00 98.8 75 15 135/68 93 06/07/16 00:00 75 06/06/16 23:16 92 40 06/06/16 22:00 76 06/06/16 20:00 40 06/06/16 20:00 98.9 80 20 158/74 99 06/06/16 20:00 80 06/06/16 19:58 99 40 06/06/16 16:00 45 06/06/16 16:00 98.6 71 20 144/67 99 06/06/16 15:39 97 45 06/06/16 12:00 45 06/06/16 12:00 98.5 80 18 144/68 98 06/06/16 11:16 99 45 06/06/16 09:00 45 06/06/16 08:14 94 45 06/06/16 08:00 98.3 76 17 139/65 94 06/06/16 08:00 45 I/O 06/06/16 06/06/16 06/06/16 06/07/16 06/07/16 06/07/16 07:00 15:00 23:00 07:00 15:00 23:00 Intake Total 751 ml 1200 ml 580 ml 500 ml Output Total 1600 ml 1700 ml 600 ml Balance -849 ml -500 ml 580 ml -100 ml Intake Oral 240 ml 720 ml 480 ml IV Total 511 ml 480 ml 100 ml 500 ml Output Urine Total 1600 ml 1700 ml 600 ml Result Diagram: 06/06/16 0336 06/06/16 1853 Other Results Laboratory Tests Test 06/06/16 18:53 Prothrombin Time 13.0 SEC (9.8-11.6) Prothromb Time International 1.2 RATIO Ratio Objective Remarks Wilfrido is awake. He has very limited movement of the shoulder elbow wrist or hand. He has diminished sensation in the right arm and hand. He is unable to flex and extend his fingers. Skin is intact around the shoulder. Assessment & Plan Assessment and Plan Wilfrido has a large abscess of the right shoulder. This appears to be creating a brachial plexus injury from the pressure on the nerve roots. Interventional radiology has been unable to place a drain. We will plan on surgery today for drainage of the abscess. I explained in depth the risk of surgery to patient. Nothing by mouth Hold Lovenox for surgery. Continue medical care. SYDNEY CHRIS PA-C Jun 07, 2016 07:06
[2016-06-07 07:25] LABS: HEMATOCRIT 29.1 % (39.0-51.0); MEAN CORPUSCULAR HEMOGLOBIN 24.5 PG (27.0-34.0); PLATELET COUNT 339 TH/MM3 (150-450); RED BLOOD COUNT 3.54 MIL/MM3 (4.50-5.90); RED CELL DISTRIBUTION WIDTH 24.4 % (11.6-17.2); WHITE BLOOD COUNT 17.7 TH/MM3 (4.0-11.0)
[2016-06-07] MEDS: FERROUS SULFATE 325 MG (65 MG ELEMENTAL IRON) TAB PO SCH (07:34)
[2016-06-07] MEDS: ATORVASTATIN 10 MG TAB PO SCH (07:34)
[2016-06-07] MEDS: SERTRALINE HCL 100 MG TAB PO SCH (07:34)
[2016-06-07] MEDS: DILTIAZEM HCL 90 MG TAB PO SCH ×4 (07:34→21:00)
[2016-06-07] MEDS: MONTELUKAST SODIUM 10 MG TAB PO SCH (07:34)
[2016-06-07 07:35] LABS: HEMO FLAGS AUTO DIFF
[2016-06-07] MEDS: SODIUM CHLORIDE 0.9% FLUSH 5 ML FLUSH FLUSH SCH (07:35)
[2016-06-07] MEDS: FENOFIBRATE 48 MG TAB PO SCH (07:35)
[2016-06-07] MEDS: FAMOTIDINE 20 MG TAB PO SCH (07:35)
[2016-06-07] MEDS: BUMETANIDE 1 MG TAB PO SCH (07:35)
[2016-06-07] MEDS: ALLOPURINOL 300 MG TAB PO SCH (07:35)
[2016-06-07] MEDS: MULTIVITAMIN TAB PO SCH (07:35)
[2016-06-07] MEDS: CHLORHEXIDINE 0.12% (ORAL KIT) 15 ML CUP MT SCH ×2 (07:36→21:01)
[2016-06-07] MEDS: NYSTATIN 100,000 U/GM PWD 15 GM BTL TOPICAL SCH ×2 (07:36→21:00)
[2016-06-07] MEDS: MICONAZOLE NITRATE 2% CREAM 15 GM TOP SCH ×2 (07:37→21:01)
[2016-06-07] MEDS: COLLAGENASE OINT 30 GM TUBE TOP SCH (07:37)
[2016-06-07 07:49] LABS: ALKALINE PHOSPHATASE 79 U/L (45-117); ALT (GPT) 21 U/L (12-78); ANION GAP 6 MEQ/L (5-15); AST (GOT) 31 U/L (15-37); BICARBONATE 35.9 MEQ/L (21.0-32.0); BLOOD UREA NITROGEN 8 MG/DL (7-18); CHLORIDE 97 MEQ/L (98-107); GLOMERULAR FILTRATION RATE 229 ML/MIN (>89); POTASSIUM 3.7 MEQ/L (3.5-5.1); SODIUM (NA) 139 MEQ/L (136-145); TOTAL BILIRUBIN ADULT 0.5 MG/DL (0.2-1.0)
[2016-06-07] MEDS: RESP: COLISTIN 150 MG VIAL NEB SCH ×3 (07:49→23:53)
--- NOTE | 2016-06-07 08:14 | HHI.FPPN ---
Subjective Remarks Overnight, no acute events. Afebrile. Hypertensive with SBP 145-160 Tolerating CPAP via trach + T-piece- PEEP8 FIO2 45%. O2 saturation 92-97% Decrease in Bumex yesterday tolerated well. 2.2 In. 2.2 Out. Urinating via catheter and stooling without difficulty. Nausea decreased with alternating Zofran + Compazine. Denies emesis. NPO after midnight for debridement with Dr. Velazquez today. Pt requesting he be "knocked out" during procedure. Denies fevers/chills, CP/palpitations, worsening SOB, abdominal pain, calf pain. Bandage R lateral malleolus and trach c/d/i. SCD R foot. (Holley Baires MD R1 ) Objective Vitals Vital Signs Date Time Temp Pulse Resp B/P Pulse Ox O2 Delivery O2 Flow Rate FiO2 06/07/16 06:00 80 06/07/16 04:09 97 40 06/07/16 04:00 40 06/07/16 04:00 76 06/07/16 04:00 98.6 76 19 147/70 97 06/07/16 02:00 71 06/07/16 00:00 40 06/07/16 00:00 98.8 75 15 135/68 93 06/07/16 00:00 75 06/06/16 23:16 92 40 06/06/16 22:00 76 06/06/16 20:00 40 06/06/16 20:00 98.9 80 20 158/74 99 06/06/16 20:00 80 06/06/16 19:58 99 40 06/06/16 16:00 45 06/06/16 16:00 98.6 71 20 144/67 99 06/06/16 15:39 97 45 06/06/16 12:00 45 06/06/16 12:00 98.5 80 18 144/68 98 06/06/16 11:16 99 45 06/06/16 09:00 45 I/O 06/06/16 06/06/16 06/06/16 06/07/16 06/07/16 06/07/16 07:00 15:00 23:00 07:00 15:00 23:00 Intake Total 751 ml 1200 ml 580 ml 500 ml Output Total 1600 ml 1700 ml 600 ml Balance -849 ml -500 ml 580 ml -100 ml Intake Oral 240 ml 720 ml 480 ml IV Total 511 ml 480 ml 100 ml 500 ml Output Urine Total 1600 ml 1700 ml 600 ml (Holley Baires MD R1) Result Diagram: 06/07/16 0705 06/07/16 0705 Imaging Last Impressions Chest X-Ray 06/03/16 0600 Signed Impressions: Service Date/Time: Friday, June 03, 2016 03:22 - CONCLUSION: 1. Cardiomegaly with bilateral pulmonary edema. 2. Moderate right pleural effusion. Vishnu Woodward MD Liver Ultrasound 06/03/16 0000 Signed Impressions: Service Date/Time: Friday, June 03, 2016 08:10 - CONCLUSION: 1. There is some sludge in the gallbladder. This can be seen with chronic gallbladder disease. 2. Fatty infiltration of the liver which appears to be enlarged. 3. No mechanical biliary tract obstruction. 4. Splenomegaly. Lázaro Frankel MD Brachial Plexus MRI 06/03/16 0000 Signed Impressions: Service Date/Time: Friday, June 03, 2016 12:42 - CONCLUSION: There is a complex multiloculated soft tissue and cystic mass measuring approximately 5.5 x 6.0 x 7.8 cm involving the subscapularis muscle along the anterior right scapula. The differential considerations include neoplastic disease, infection and hematoma. Recommend a CT scan of the right shoulder to pre-plan for CT-guided aspiration/biopsy of this abnormality. Lázaro Frankel MD Cervical Spine MRI 05/29/16 0000 Signed Impressions: Service Date/Time: Sunday, May 29, 2016 13:51 - CONCLUSION: Limited study but appears normal. Vishnu Woodward MD Brain MRI 05/29/16 0000 Signed Impressions: Service Date/Time: Sunday, May 29, 2016 13:51 - CONCLUSION: 1. Focal chronic ischemic change in the high right frontal parietal convexity stable from previous CT scan. 2. No acute intracranial abnormality. 3. Minimal nonspecific white matter changes. Vishnu Woodward MD Upper Extremity Ultrasound 05/28/16 0000 Signed Impressions: Service Date/Time: Saturday, May 28, 2016 10:16 - CONCLUSION: 1. Negative for deep venous thrombosis. Venous line noted in cephalic, subclavian and internal jugular vein. Horacio Gupta MD Abdomen X-Ray 04/29/16 0000 Signed Impressions: Service Date/Time: Friday, April 29, 2016 07:12 - CONCLUSION: Suspect Dobbhoff tube in the distal stomach. Garcia Lujan MD Objective Remarks GEN: Morbidly obese male in NAD. DERM: Warm and dry. Venous stasis changes lower regions. Nails bitten down. Yellow ecchymosis periumbilical region and R pannus, healing. No erythema or skin breakdown appreciated. Numerous skin folds 2/2 habitus. Bandage R lateral malleolus c/d/i. HEENT: Tracheotomy site c/d/i. Poor dentition. PERRL. EOMI. CV: Distant heart sounds. RRR. Normal peripheral perfusion. RESP: T-piece in place. FIO2 45 Transmitted upper respiratory sounds. No wheezing GI: Abdomen soft, obese, non-tender. +BS MSK: LE edema 2+ bilaterally. No calf tenderness NEURO: Grossly normal cranial nerves. Shoulder shrug intact. SILT x4 extremities. Can move fingers RUE, but unable to move against gravity. Can lift LUE to chest, not face. Procedures 04/24- Started ventilation 05/02- Emergency Trach Exchange 06/03- PICC line removed 06/07- Debridement of RUE abscess (Dr. Velazquez) (Holley Baires MD R1) Date of Insertion: Apr 24, 2016 (Holley Baires MD R1) A/P Assessment and Plan 31y male w chronic respiratory failure s/p tracheostomy 4y ago and Pickwickian hypoventilation syndrome (BMI 60+) admitted from rehab for tx [id number] hypoxia and PNA. Discharge Planning Uncertain, pending weaning from mechanical ventilation with stable clinical status and workup of R shoulder mass. Ideally, return to long-term rehab facility. If qualifies, could consider [facility] vent facility depending on status. Orthopedics, Critical care, ID, Psych, Neurology, IR, PT/OT, Gen Surgery, Rehabilitation consulted. Appreciate recommendations. (Holley Baires MD R1) Attending Attestation Patient examined and case discussed with resident physicians I have read the above note and agree with the assessment/plan is discussed with me I was involved in all medical decision making this patient Lázaro Rogers M.D. (Lázaro Rogers MD) Problem List: (1) Mass of soft tissue of right upper extremity Status: Acute Plan: - NPO for debridement R subscapularis abscess today in OR by Dr. Velazquez - Tissue culture/pathology should be ordered, pending removal type - Continue daily PT/OT, as tolerated, to strengthen RUE and body. Goal: self- feeding Impression: Multiloculated soft tissue and cystic mass 6 x 6 x 8cm involving R subscapularis muscle causing weakness RUE. IR deemed CT-guided biopsy not possible. Ddx: abscess vs neoplasm vs hematoma. Prior to hospitalization, able to transfer to wheelchair and feed self. Now unable to transfer or feed self. Initially RUE weakness thought to be C6/C7 neuropathy secondary morbid obesity and positioning, however MRI brachial plexus identified soft tissue mass. DVT, L hemispheric pathology, and seizure ruled out w imaging (see below) . EMG scheduled, but unable to be performed secondary to desaturations to 80%. Imaging: - US negative for DVT (05/28) - MRI brain (04/28) no acute intracranial process - MRI C-spine (05/29): grossly wnl - EEG (05/29): diffuse mild encephalopathy vs normal Stage 2 sleep - MRI brachial plexus (06/03): "Complex multiloculated soft tissue and cystic mass 5.5 x 6 x 7.8 cm involving subscapularis muscle along anterior R scapula (2) Bacteremia Status: Acute Plan: - Increasing leukocytosis despite antibiotics 9 -> 15 -> 18 - Vancomycin 2000mg IV daily goal trough 15-20, (06/03 -- ) - Zerbaxa IV q8h (06/05-- ) - Colistin 75mg q8h NEB - Acetaminophen 325mg PRN fever - Follow repeat blood cultures (06/03, 06/05 pending) - Infectious disease consulted, recommendations appreciated Impression: Though to be sepsis secondary to PICC infection (PICC removed 06/03) versus benign colonization or viral infection. +blood, sputum, and urine cultures (06/03) that grew Pseduomonas aeruginosa and Enterococcus faecalis. Serial CXRs grossly unchanged: cardiomegaly w b/l pulmonary edema. Moderate R pleural effusion. Abx History Zosyn 4.5gm IV q6h (04/24 - 04/29) Levaquin 750mg IV q24h (04/24-04/30) Zerbaxa 1.5 g IV q8h (04/29 - 05/07) Vancomycin IV (04/24 - 05/06) Ceftriaxone IV (05/07 - 05/25) Linezolid 600 mg PO BID (05/06 - 05/13) Vancomycin (06/03-- ) Zosyn 3.375 q6h (06/04- 06/05) Zerbaxa (ceftozolane/tazobactam) (06/05 --) (3) CHF (congestive heart failure) Status: Chronic Plan: - Bumex 1mg PO daily + 40 KCl BID - Monitor I/Os, monitor renal function, peripheral edema Impression: Noted large output (3-4L/day) from PO (1-2L) and IV (1-2L) fluid intake. IV fluids 2/2 to medications and flushes, as on no continuous IVF. Suspected HF with poor EF, though unable to confirm via ECHO (04/25/16) secondary to poor imaging . EF unknown. BNP was elevated to 400, decreasing. (4) Hypertension Status: Chronic Plan: - Worsening blood pressure control likely secondary to infection and decrease in diuretic (06/06), continue to monitor - Cardiazem 90mg QID (5) Nausea Status: Chronic Plan: - Alternate Zofran 4mg PO q6h PRN with - Alternate Compazine 5mg PO q6h PRN - Continue Ranitidine BID Impression: Chronic with waxing and waning severity. Ddx: GERD vs psychosomatic vs impaired gastric emptying vs medication side effect. Consider switching to PPI if worsens. (6) On mechanically assisted ventilation Status: Acute Plan: - CPAP (PS 15, PEEP 8, FiO2 45%) via trach t-piece - Pulmicort BID REYES - Duonebs q2h PRN - Singulair 10mg daily Impression: Acute on chronic hypoxemic respiratory failure secondary to HCAP ( resolved) and tracheostomy leak (s/p exchange 05/02). Baseline 6L NC at rehab. Mechanical ventilation initiated 04/24. Solumedrol (05/10-06/03) (7) Stable medical conditions Status: Chronic Plan: HYPERLIPIDEMIA -Atorvastatin 10mg daily and Tricor 48mg daily PAROXYSMAL AFIB - Hold Xarelto while on therapeutic Lovenox. EKG 05/17: sinus rhythm. NORMOCYTIC ANEMIA - Ferrous sulfate 325mg PO daily - Multivitamin 1 tab PO daily MDD: - Pt reports stable mood; some anhedonia suspected. Previously, refusing meals , shower, PT - Sertraline 100 mg PO daily - Seroquel 100mg HS INSOMNIA -Zolpidem 5mg HS PRN GOUT -Allopurinol 300mg daily HYPOTHYROIDISM 08/2015- TSH low, free T4 grossly wnl (05/27/16) -Synthroid 50 mcg PO daily FUNGAL INFECTION -Nystatin powder and miconazole creme to skin folds MORBID OBESITY WITH BMI 60-69 -see above plan for mechanical ventilation RESOLVED CONDITIONS THIS HOSPITAL VISIT - Cellulitis of Chest Wall: completed course linezolid (05/06-05/13), per ID recs - Yeast UTI: completed course Diflucan. UCx 05/01: Dionne albicans. Repeat UCx 05/05: Proteus Mirabilis - HCAP: s/p multiple abx (8) Nutrition, metabolism, and development symptoms Status: Acute Plan: FEN: Fluids: PO (Limited to 2L, consider limiting further) Electrolytes: 40KCl BID. Chronically hypokalemic, replete per protocol Nutrition: 2Kcal heart healthy diet. Transitioned to oral feeds (05/29). Needs help with feeding. PPX: GI ppx: Famotidine 20mg BID DVT PPx: HOLD LOVENOX FOR SURGERY 06/07. (Held: therapeutic Lovenox 150mg SQ BID) Pain: Oxycodone 7.5/325 q4 PRN Bowels: Senna 1 tab HS PRN Wt: Admission: 480 lbs. Wt 06/07 ~445 lbs. Continue monitor, encourage, modify/restrict diet, as appropriate DW: Dr. Rogers SDW: Dr. Kelly (Holley Baires MD R1) Problem Qualifiers (1) CHF (congestive heart failure): Qualified Code: I50.9 - Acute on chronic congestive heart failure, unspecified congestive heart failure type Holley Baires MD R1 Jun 07, 2016 08:14 Lázaro Rogers MD Jun 07, 2016 15:52
[2016-06-07] MEDS: RESP: BUDESONIDE 0.5 MG/2 ML NEB NEB SCH ×2 (08:29→20:14)
[2016-06-07 08:30] LABS: BANDS 9 % (0-6); BASOPHILS 2 % (0-2); CORRECTED NUCLEATED RBC 1 /100 WBC (0-0); METAMYELOCYTES 9 % (0-1); MYELOCYTES 16 % (0-0); NEUTROPHIL # MANUAL DIFF 14.5 TH/MM3 (1.8-7.7); PLASMA CELLS 1 % (0-0); POLYS (SEG NEUTROPHILS) 48 % (16-70); WBC DIFF SAMPLE 100
[2016-06-07 08:32] LABS: POLYCHROMASIA 4.2 % (0.0-1.9)
[2016-06-07 08:33] LABS: PLATELET ESTIMATE SMEAR NORMAL (NORMAL); PLATELET MORPHOLOGY NORMAL (NORMAL); SCAN/DIFF FINAL DIFF MANUAL; STOMATOCYTES 1+ (NORMAL)
[2016-06-07] MEDS ORDERED: GENTAMICIN SULFATE 80 MG/2 ML VIAL ONE (08:36)
--- NOTE | 2016-06-07 09:06 | HHI.CCPN ---
Subjective Remarks/Hospital Course 31 year old morbidly obese (BMI 68) male with chronic respiratory failure s/p tracheostomy 4 years ago, atrial fibrillation and pulmonary embolism on Xarelto , COPD, CHF and h/o HTN. He presented from [facility] with low oxygen saturation apparently his oxygen saturation was 82% on RA. He was placed back on 6L of oxygen via his trach mask and given a breathing treatment, initially improved however he started drifting back to low 80s again. Chest x-ray showed bibasilar infiltrates and pulmonary edema. Patient was admitted to the [facility] and was started on IV steroids IV vancomycin and Zosyn and Levaquin for healthcare associated pneumonia. After starting ACV, patient was more awake but there was a significant amount of air leak around his tracheostomy. Patient has had a Shiley 6.0 Proximal XLT, but the commuter pilot balloon had been cut off. 05/02 the patient became acutely hypoxemic with a large cuff leak, underwent emergency trach exchange at bedside by Dr. Macias. FiO2 65% PEEP 14 05/13 Patient is on ventilator via trach, on Fentanyl infusion however he is awake and alert. On PRVC with FIO2 40%. Afebrile. 05/14 No acute events overnight. Tmax 99.8. Patient is awake, alert on ventilator via trach still requiring increase O2. On PRVC with PEEP: 10 and FIO2 70%. 05/15 patient acutely desaturated after he was found. Saturation went down to 70% on 100% oxygen. Bag and mask ventilation carried out, with eventual improvement on oxygen saturation to 85%. Patient was placed on PC/AC mode of ventilation, with PEEP of 15 and instructed to pressure of 30. Eventually oxygen saturation improved to 95%. Lasix him today as the chest x-ray from today shows increasing bilateral infiltrate and pulmonary edema. Also sputum culture will be sent 05/16 Patient is on Fentanyl and Diprivan infusion but awake and alert. Afebrile. On PC/AC with PEEP:15, IP: 22, IT:1.3 and FIO2 50% 05/17 Patient is off Diprivan and remains on Fentanyl infusion for sedation. On PC/AC with PEEP: down 10 and FIO2 40%. Afebrile. 05/18 Patient remains on ventilator via trach on PC/AC with PEEP:12, FIO2 40%, IP:22, IT:1.0. On Fentanyl infusion 05/19 No acute events overnight. On Fentanyl infusion but awake and alert. Afebrile. 05/20 Tolerating C Pap 17/12 FIO2 40, sats 98%. RSBI in 20s, appears can be weaned further. Afebrile. Speech therapy evaluated and ok for regular diet. Starting with full liquid. 05/21 Will wean PSV to 15/10. Tolerated full liquids, will advance to regular diet per speech recs. Subjective: 05/22 On PSV 15/10 FIO2 40 with sats 92%. Smiling today. Glad to be eating regular food again. 05/23 No acute events overnight. Remains on CPAP with PS 15, PEEP:10 and FIO2 40 %. Afebrile. Off Fentanyl drip. Afebrile. Awake and alert. 05/24 Patient is on CPAP 06/06 with 40% FIO2. Afebrile. Awake and alert, on no sedation. 05/25 No acute events overnight. Patient was placed back on PC/AC overnight. Tolerated CPAP trials during day yesterday. Awake and alert. On no drips. Afebrile. 05/26 Afebrile. Tmax 98.6. Today the patient complained of nausea requiring Zofran. The patient has a lack of an appetite, with noted hypoglycemia early this a.m. blood glucose level 69. Patient tolerating CPAP well greater than 12 hours in the last 24 hours. 05/27 The patient tolerated CPAP for over 36 hours, O2 sat a knee 94% on FIO2 40 %. The patient had an increase in appetite. The patient continues on full liquid diet. 05/28 The patient declined physical therapy treatment, yesterday and also overnight declined to be moved by nursing staff. The patient refused dinner last evening, of note patient was reevaluated by speech therapy and can consume a heart healthy diet with thin liquids. The patient continues on physical therapy for strengthening exercises of all extremities specifically noted right upper extremity continues to be weak with gross fibrillations noted in hand and forearm. 05/29 Afebrile. No change in right upper extremity weakness. The patient was seen by neurology yesterday plan for MRI today if possible in hospital MRI, and EMG studies. No complaints overnight. Patient continues to refuse to have activities performed, movement in bed. The patient appears to be depressed, psychiatry consulted. 05/30: Patient alert awake on CPAP. Following commands. Psych agrees the patient is depressed. MRI brain no acute findings 05/31: Awake alert. on PS 11/02. EMG could not be completed due to patient becoming anxious. Otherwise no acute events reported overnight 06/01: Remains PS from 11/02. Right upper extremity weakness persists. EMG to be repeated on Friday. Will need MRI of the brachial plexus. Chest x-ray is unchanged 06/02: States that "not feeling well". Febrile to 101.5. White count increasing but still within the normal range. Pancultured. We'll request ID reevaluation. 06/03: Resting in bed on C Pap/pressure support via tracheostomy. One out of 2 sets of blood cultures sent on 06/02 positive for gram-positive cocci. 06/04: Resting in bed on mechanical ventilation via tracheostomy. Afebrile overnight. MRI brachial plexus (06/03) revealed a collection near the right subscapularis muscle, possibly an abscess. Discussed with ID, orthopedics Dr. Velazquez consulted. I discussed the case with Dr. Velazquez this morning who feels this is probably an abscess however would be difficult to access surgically and he plans to set up percutaneous drainage by interventional radiology. 06/05: Resting in bed on mechanical ventilation via tracheostomy. Remains afebrile. Reportedly IR cannot do percutaneous drainage of collection involving right subscapularis muscle. 06/06: Resting in bed on mechanical ventilation via tracheostomy. Can actually speak around the trach. Remains afebrile. Dr. Velazquez evaluated patient and is scheduling surgery for drainage of fluid collection involving the right subscapularis muscle. 06/07: Resting in bed on mechanical ventilation via tracheostomy. Awaiting surgery today. Objective Vital Signs Date Time Temp Pulse Resp B/P Pulse Ox O2 Delivery O2 Flow Rate FiO2 06/07/16 06:00 80 06/07/16 04:09 97 40 06/07/16 04:00 98.6 19 147/70 Intake and Output 06/06/16 06/06/16 06/07/16 08:00 16:00 00:00 Intake Total 751 ml 1200 ml 580 ml Output Total 1600 ml 1700 ml Balance -849 ml -500 ml 580 ml Result Diagram: 06/07/16 0706/07/16 07 Imaging Last Impressions Chest X-Ray 05/20/16 0000 Signed Impressions: Service Date/Time: Friday, May 20, 2016 03:21 - CONCLUSION: Persistent mid and lower lung areas of consolidation or atelectasis being worse in the right. There has been mild improvement. Garcia Lujan MD Upper Extremity Ultrasound 05/02/16 0000 Signed Impressions: Service Date/Time: April 20:51 - CONCLUSION: No DVT. Garcia Lujan MD Abdomen X-Ray 04/29/16 0000 Signed Impressions: Service Date/Time: Friday, April 29, 2016 07:12 - CONCLUSION: Suspect Dobbhoff tube in the distal stomach. Garcia Lujan MD Objective Remarks GENERAL: Patient is 31yo on ventilator via trach, awake and follows commands. Super Morbidly obese. Communicating appropriately SKIN: Warm and dry. HEAD: Normocephalic. EYES: No scleral icterus. No injection or drainage. NECK: Supple, trachea midline. Shiley 6.0 Proximal XLT, (new trach placed ) CARDIOVASCULAR:Tachycardic without murmurs, gallops, or rubs. RESPIRATORY: On mechanical ventilation, Breath sounds equal bilaterally. Distant secondary to habitus. GASTROINTESTINAL: Abdomen soft, obese, non-tender, nondistended. Multiple noted areas of ecchymotic bruising secondary to subcutaneous injections MUSCULOSKELETAL: No cyanosis, or edema. Pedal edema. Wound on lateral aspect of right lower leg above lateral malleolus , dressing C/D/I. 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 Neuro: Awake and alert. Moves all extremities with focal deficit right upper extremity as above. Date of Insertion: Apr 24, 2016 A/P Assessment and Plan ASSESSMENT Acute hypercapnic and hypoxemic respiratory failure Acute worsening of hypoxia due to lung de-recruitment 05/15/16 Healthcare associated pneumonia MDR Pseudomonas Enterococcal bacteremia Pseudomonas bacteremia Collection near right subscapularis muscle(On MRI 06/03) - abscess Sepsis CHF exacerbation CO2 narcosis Tracheostomy commuter pilot balloon damage -status post exchange with new Shiley 6.0 Proximal XLT 05/02/16 Chronic Respiratory Failure s/p Tracheostomy 4 years ago (Shiley 6.0 Proximal XLT) Probable right brachial plexus injury COPD/obesity hypoventilation syndrome Morbid Obesity BMI 67 History of pulmonary embolism 4 years ago Chronic atrial fibrillation Anxiety CHF (Echo 2013 EF 40-45%; ECHO 08/2015 showing a grossly normal systolic function) Hypertension Hypothyroidism PLAN NEURO: CO2 narcosis - resolved Critical care polyneuropathy Right upper extremity weakness 05/21-possibly secondary to nerve compression, C6 , C7 (brachial plexus) Pain Anxiety Depression -EMG/ NCV could not be completed on 05/[address] Castillo -Right upper extremity absence of triceps reflex, diminished sensation/numbness in C6-C7 dermatome level both anterior and posterior, inability for pronation, handgrip strength 2/5, lack of wrist extension/flexion. C6, C7 myotome pattern of muscle weakness.Positive shoulder abduction/adduction. -Clinically probably has right brachial plexus injury. MRI of brachial plexus- scheduled for 06/03 -Continued PT daily, with strengthening exercise (encouraged patient to participate) patient counseled on the importance. -Neurology Dr. Cheek-MRI brain C spine no acute findings. -Venous Doppler RUE 05/28-negative for DVT -Psychiatric consultation-agrees patient is depressed, On Seroquel. Continue Zoloft 50mg daily -On morphine 4 mg IV every 3 hours as needed for breakthrough pain. RESP: Acute hypercapnic and hypoxemic respiratory failure Acute lung derecruitment 05/15 with hypoxia Healthcare associated pneumonia Tracheostomy commuter pilot balloon damage (Shiley 6.0 Proximal XLT) s/p new trach placement 05/02 Chronic Respiratory Failure s/p Tracheostomy 4 years ago COPD/obesity hypoventilation syndrome History of pulmonary embolism 4 years ago Leukocytosis-resolved Pulmonary edema - Continue with vent support keep sat >90%. Currently on CPAP. Attempt TP/TC if PS can be reduced - PSV 06/03 FiO2 45% and continue weaning as tolerated. - s/p Bronchoscopy 05/11 -follow up on BAL results-negative - DuoNeb every 6 hours scheduled, q 2 prn. - Pulmicort BID (home med), Continue Singulair 10 mg po daily - Therapeutic Lovenox 150 mg every 12 hours(hold for surgery/ procedures), consider transition to Xarelto (home med) upon planned discharge CV: CHF exacerbation Pulmonary edema Paroxysmal atrial fibrillation (chronic) Hyperlipidemia -Monitor HR and BP keep MAP>65mmHg -Systolic BP [id number], continue to monitor trend possible escalation of antihypertensive meds -on Cardizem 60mg QID. Decrease bumex to 1mg daily PO from 1mg IV Q12 on 06/06. Decrease IVF to 50cc/hr on 06/06 -Continue Lipitor 10 g by mouth daily. Continue TriCor 40 mg by mouth daily -Therapeutic Lovenox 150 mg twice a day (hold for any surgery/ procedures) GI: Super morbid obesity with BMI of 63 -Regular diet ,thin liquids per speech recs. Refusing meals due to lack of appetite, Nausea -Liver US 06/03: Fatty liver, sludge in gall bladder, splenomegaly, no mechanical obstruction of bile duct noted. -On Pepcid 20mg BID -Multivitamin to medication regimen -Consider dietary supplementation FEN/RENAL: Hypokalemia - Monitor renal function , I/O. - Electrolytes replacement per protocol. - Bumex 1 mg IV q12 changed to 1mg PO daily on 06/06. KCL 40 q12 ID: Healthcare associated pneumonia Sepsis New fever MDRO Cellulitis right arm-resolved Leukocytosis-resolved Enterococcal faecalis bacteremia, Pseudomonas bacteremia (06/02, 06/03) -Rocephin (05/12- 05/25) -Blood culture: aerobic and anaerobic bottles - enterococcus faecalis, pseudomonas aeruginosa 06/02, 06/03 -Urine culture GNR 06/02 Wound culture GNR 06/02 Sputum culture GNR 06/02 -Urine cx: Proteus Mirabilis 05/05 -Sputum cx: Providencia 05/05- resolved -Wound cx: 05/13 Proteus, Pseudomonas, Group D Enterococcus -Wound culture Pseudomonas MDR 04/27 -Sputum culture-Pseudomonas MDR- 04/27 -Bronchoscopy and re-culture 05/10 follow up on BAL results-neg to date -Follow up on sputum cx from 05/15- NGTD -Repeat cultures sent on 06/02 including wound culture from the right lower extremity wound and resulted as above -Started on IV vancomycin 06/03 for GPC in blood culture - possibly from PICC which was removed after placement of Per IV on 06/03. Continues on colistin nebs. On Zerbaxa for MDR pseudomonas in blood cultures. ID following. MRI brachial plexus (06/03) revealed a collection involving right subscapularis muscle near right anterior axilla , possibly an abscess. Discussed with ID on 06/02, Orthopedics Dr. Velazquez consulted and following. Dr. Velazquez scheduled drainage of collection surgically for 06/07. HEME: History of PE on chronic anticoagulation with Xarelto Anemia, iron deficiency and anemia of critical illness. -Monitor CBC, -Xarelto for PE 4 yrs ago. -Xarelto.held, On therapeutic Lovenox 150 mg twice a day - (hold for procedures / surgery) -Ferrous sulfate 300 mg/q day ENDO: Hypothyroidism -On SSI (Low scale) -Continue levothyroxine 50 mcg po daily -Free T4 1.52 PROPH: -Bilateral lower extremity SCDs. Lovenox DVT therapeutic dose. GI prophylaxis- Pepcid switched to Protonix on 06/07 LINES: - PICC line RUE- No DVT on US 05/02 - removed on 06/03. Out of bed with assistance. PT out of bed with vent. OT. Discussed with CLERICAL ASSOCIATE. Bo Land MD Jun 07, 2016 09:06
[2016-06-07] MEDS: POTASSIUM CHLORIDE 20 MEQ CONTROLLED RELEASE TAB PO SCH ×2 (09:50→22:48)
[2016-06-07] MEDS ORDERED: FAMOTIDINE 20 MG/2 ML VIAL ONE (09:56)
[2016-06-07] MEDS ORDERED: MIDAZOLAM HCL 2 MG/2 ML VIAL ONE (09:56)
[2016-06-07] MEDS ORDERED: fentaNYL CITRATE 250 MCG/5 ML AMP ONE (09:57)
[2016-06-07] MEDS ORDERED: LACTATED RINGER'S 1000 ML INJ 1,000 ML IV ONE (12:00)
[2016-06-07] MEDS ORDERED: PROPOFOL 200 MG/20 ML AMP IV ONE (12:00)
[2016-06-07] MEDS ORDERED: ONDANSETRON HCL 4 MG/2 ML VIAL IV PUSH ONE (12:00)
[2016-06-07] MEDS ORDERED: Post-op Orders (for Pharmacy) MISC XX ONE (12:45)
[2016-06-07] MEDS ORDERED: SODIUM CHLORIDE 0.9% FLUSH 5 ML FLUSH IVF PRN (12:45)
[2016-06-07] MEDS: MORPHINE SULFATE 4 MG/ML INJ IV PUSH PRN ×2 (13:33→21:00)
[2016-06-07] MEDS: PANTOPRAZOLE SOD 20 MG DELAYED RELEASE TAB PO SCH (21:00)
[2016-06-07] MEDS: QUEtiapine FUMARATE 100 MG TAB PO SCH (21:00)
[2016-06-07] MEDS: SODIUM CHLORIDE 0.9% FLUSH 5 ML FLUSH IVF SCH (21:01)
[2016-06-08] VITALS (23 sets, daily range): BP systolic 155–186; BP diastolic 69–79; PULSE 76–98; RESP 13–23; TEMP 97.8–98.4; O2SAT 94–98
[2016-06-08] MEDS: VANCOMYCIN INJ 2,000 MG in SODIUM CHLORID 0.9% 500 ML INJ 500 ML IV SCH ×2 (01:02→13:10)
[2016-06-08] MEDS: ONDANSETRON ODT 4 MG TAB PO PRN (02:02)
[2016-06-08] MEDS: CEFTOLOZANE-TAZOBACTAM INJ 1,500 MG in SODIUM CHLORIDE 0.9% INJ 100 ML IV SCH ×3 (03:43→20:36)
[2016-06-08] MEDS: MORPHINE SULFATE 4 MG/ML INJ IV PUSH PRN ×3 (05:00→18:46)
[2016-06-08] MEDS: LEVOTHYROXINE SODIUM 50 MCG TAB PO SCH (05:01)
--- NOTE | 2016-06-08 07:19 | PD.ORT.PN ---
Subjective Subjective Remarks POD 1 s/p I&D with drain placement right shoulder trached. reports pain right shoulder. otherwise comfortable Objective Vitals Vital Signs Date Time Temp Pulse Resp B/P Pulse Ox O2 Delivery O2 Flow Rate FiO2 06/08/16 06:00 84 06/08/16 05:05 21 06/08/16 04:21 94 40 06/08/16 04:00 40 06/08/16 04:00 98.4 93 23 160/69 94 06/08/16 04:00 93 06/08/16 02:00 93 06/08/16 00:00 88 06/08/16 00:00 40 06/08/16 00:00 98.1 88 21 155/69 95 06/07/16 23:53 96 40 06/07/16 22:00 84 06/07/16 20:14 98 40 06/07/16 20:00 81 06/07/16 20:00 98.1 81 21 169/74 98 06/07/16 20:00 40 06/07/16 18:00 80 06/07/16 17:16 98 40 06/07/16 16:00 40 06/07/16 16:00 98.1 77 22 168/77 98 06/07/16 16:00 77 06/07/16 14:00 75 06/07/16 13:34 96 40 06/07/16 10:15 98 100 06/07/16 10:00 73 06/07/16 09:18 97 40 06/07/16 08:00 74 06/07/16 08:00 97.9 74 21 148/72 100 06/07/16 08:00 40 I/O 06/07/16 06/07/16 06/07/16 06/08/16 06/08/16 06/08/16 06:59 14:59 22:59 06:59 14:59 22:59 Intake Total 500 ml 248 ml 480 ml 1280 ml Output Total 600 ml 925 ml 650 ml 450 ml Balance -100 ml -677 ml -170 ml 830 ml Intake Oral 120 ml 480 ml 480 ml IV Total 500 ml 128 ml 800 ml Output Urine Total 600 ml 900 ml 600 ml 450 ml Drainage Total 25 ml 50 ml # Bowel Movements 1 1 Result Diagram: 06/07/1670406/07/16704 Objective Remarks RUE: dressing clean and dry. intact. +drain. NVI distally Assessment & Plan Assessment and Plan 1) Right Shoulder I&D - POD 1 -dressing changes POD 2 -maintain drain -continue Abx Mani Gallagher Jun 08, 2016 07:19
[2016-06-08 07:30] LABS: AUTOMATED NEUTROPHIL # 16.9 TH/MM3 (1.8-7.7); BASOPHIL # 0.1 TH/MM3 (0-0.2); BASOPHIL % 0.5 % (0.0-2.0); EOSINOPHIL # 0.1 TH/MM3 (0-0.4); EOSINOPHIL % 0.5 % (0.0-4.0); HEMATOCRIT 26.3 % (39.0-51.0); LYMPH % 8.7 % (9.0-44.0); LYMPHOCYTE # 1.8 TH/MM3 (1.0-4.8); MEAN CELL VOLUME 81.9 FL (80.0-100.0); MEAN CORPUSCULAR HEMOGLOBIN 24.7 PG (27.0-34.0); MEAN CORPUSCULAR HGB CONC 30.2 % (32.0-36.0); MONO % 7.4 % (0.0-8.0); NEUT % 82.9 % (16.0-70.0); PLATELET COUNT 344 TH/MM3 (150-450); RED BLOOD COUNT 3.21 MIL/MM3 (4.50-5.90); RED CELL DISTRIBUTION WIDTH 25.7 % (11.6-17.2); WHITE BLOOD COUNT 20.4 TH/MM3 (4.0-11.0)
[2016-06-08] MEDS: RESP: BUDESONIDE 0.5 MG/2 ML NEB NEB SCH ×2 (07:30→19:46)
[2016-06-08 07:37] LABS: HEMO FLAGS AUTO DIFF
[2016-06-08 07:52] LABS: ALKALINE PHOSPHATASE 87 U/L (45-117); ALT (GPT) 21 U/L (12-78); ANION GAP 7 MEQ/L (5-15); AST (GOT) 32 U/L (15-37); BICARBONATE 33.8 MEQ/L (21.0-32.0); BLOOD UREA NITROGEN 9 MG/DL (7-18); CHLORIDE 96 MEQ/L (98-107); GLOMERULAR FILTRATION RATE 236 ML/MIN (>89); MAGNESIUM 1.4 MG/DL (1.5-2.5); POTASSIUM 4.1 MEQ/L (3.5-5.1); SODIUM (NA) 137 MEQ/L (136-145); TOTAL BILIRUBIN ADULT 0.5 MG/DL (0.2-1.0)
[2016-06-08] MEDS: PROCHLORPERAZINE MALEATE 5 MG TAB PO PRN (08:15)
[2016-06-08] MEDS: oxyCODONE/ACETAMINOPHEN 7.5 MG/325 MG TAB PO PRN ×3 (08:15→17:45)
[2016-06-08] MEDS: CHLORHEXIDINE 0.12% (ORAL KIT) 15 ML CUP MT SCH ×2 (08:15→20:36)
[2016-06-08] MEDS: SERTRALINE HCL 100 MG TAB PO SCH (08:16)
[2016-06-08] MEDS: MONTELUKAST SODIUM 10 MG TAB PO SCH (08:16)
[2016-06-08] MEDS: MULTIVITAMIN TAB PO SCH (08:16)
[2016-06-08] MEDS: ALLOPURINOL 300 MG TAB PO SCH (08:16)
[2016-06-08] MEDS: ATORVASTATIN 10 MG TAB PO SCH (08:16)
[2016-06-08] MEDS: PANTOPRAZOLE SOD 20 MG DELAYED RELEASE TAB PO SCH ×2 (08:16→20:36)
[2016-06-08] MEDS: FENOFIBRATE 48 MG TAB PO SCH (08:16)
[2016-06-08] MEDS: DILTIAZEM HCL 90 MG TAB PO SCH ×4 (08:17→20:36)
[2016-06-08] MEDS: FERROUS SULFATE 325 MG (65 MG ELEMENTAL IRON) TAB PO SCH (08:17)
[2016-06-08] MEDS: BUMETANIDE 1 MG TAB PO SCH (08:17)
[2016-06-08] MEDS: SODIUM CHLORIDE 0.9% FLUSH 5 ML FLUSH IVF SCH ×2 (08:17→20:36)
[2016-06-08] MEDS: MICONAZOLE NITRATE 2% CREAM 15 GM TOP SCH ×2 (08:18→20:38)
[2016-06-08] MEDS: NYSTATIN 100,000 U/GM PWD 15 GM BTL TOPICAL SCH ×2 (08:18→20:38)
[2016-06-08] MEDS: COLLAGENASE OINT 30 GM TUBE TOP SCH (08:19)
[2016-06-08 09:17] LABS: BANDS 15 % (0-6); BASOPHILS 1 % (0-2); EOSINOPHILS 1 % (0-4); METAMYELOCYTES 5 % (0-1); MYELOCYTES 7 % (0-0); NEUTROPHIL # MANUAL DIFF 18.4 TH/MM3 (1.8-7.7); PLATELET ESTIMATE SMEAR NORMAL (NORMAL); POLYS (SEG NEUTROPHILS) 62 % (16-70); PROMYELOCYTES 1 % (0-0); WBC DIFF SAMPLE 100
[2016-06-08 09:18] LABS: PLATELET MORPHOLOGY NORMAL (NORMAL); SCAN/DIFF FINAL DIFF MANUAL; STOMATOCYTES 1+ (NORMAL)
--- NOTE | 2016-06-08 09:42 | HHI.CCPN ---
Subjective Remarks/Hospital Course 31 year old morbidly obese (BMI 68) male with chronic respiratory failure s/p tracheostomy 4 years ago, atrial fibrillation and pulmonary embolism on Xarelto , COPD, CHF and h/o HTN. He presented from [facility] with low oxygen saturation apparently his oxygen saturation was 82% on RA. He was placed back on 6L of oxygen via his trach mask and given a breathing treatment, initially improved however he started drifting back to low 80s again. Chest x-ray showed bibasilar infiltrates and pulmonary edema. Patient was admitted to the [facility] service and was started on IV steroids IV vancomycin and Zosyn and Levaquin for healthcare associated pneumonia. After starting ACV, patient was more awake but there was a significant amount of air leak around his tracheostomy. Patient has had a Shiley 6.0 Proximal XLT, but the aerial applicator pilot balloon had been cut off. 05/02 the patient became acutely hypoxemic with a large cuff leak, underwent emergency trach exchange at bedside by Dr. Macias. FiO2 65% PEEP 14 05/13 Patient is on ventilator via trach, on Fentanyl infusion however he is awake and alert. On PRVC with FIO2 40%. Afebrile. 05/14 No acute events overnight. Tmax 99.8. Patient is awake, alert on ventilator via trach still requiring increase O2. On PRVC with PEEP: 10 and FIO2 70%. 05/15 patient acutely desaturated after he was found. Saturation went down to 70% on 100% oxygen. Bag and mask ventilation carried out, with eventual improvement on oxygen saturation to 85%. Patient was placed on PC/AC mode of ventilation, with PEEP of 15 and instructed to pressure of 30. Eventually oxygen saturation improved to 95%. Lasix him today as the chest x-ray from today shows increasing bilateral infiltrate and pulmonary edema. Also sputum culture will be sent 05/16 Patient is on Fentanyl and Diprivan infusion but awake and alert. Afebrile. On PC/AC with PEEP:15, IP: 22, IT:1.3 and FIO2 50% 05/17 Patient is off Diprivan and remains on Fentanyl infusion for sedation. On PC/AC with PEEP: down 10 and FIO2 40%. Afebrile. 05/18 Patient remains on ventilator via trach on PC/AC with PEEP:12, FIO2 40%, IP:22, IT:1.0. On Fentanyl infusion 05/19 No acute events overnight. On Fentanyl infusion but awake and alert. Afebrile. 05/20 Tolerating C Pap 17/12 FIO2 40, sats 98%. RSBI in 20s, appears can be weaned further. Afebrile. Speech therapy evaluated and ok for regular diet. Starting with full liquid. 05/21 Will wean PSV to 15/10. Tolerated full liquids, will advance to regular diet per speech recs. Subjective: 05/22 On PSV 15/10 FIO2 40 with sats 92%. Smiling today. Glad to be eating regular food again. 05/23 No acute events overnight. Remains on CPAP with PS 15, PEEP:10 and FIO2 40 %. Afebrile. Off Fentanyl drip. Afebrile. Awake and alert. 05/24 Patient is on CPAP 06/06 with 40% FIO2. Afebrile. Awake and alert, on no sedation. 05/25 No acute events overnight. Patient was placed back on PC/AC overnight. Tolerated CPAP trials during day yesterday. Awake and alert. On no drips. Afebrile. 05/26 Afebrile. Tmax 98.6. Today the patient complained of nausea requiring Zofran. The patient has a lack of an appetite, with noted hypoglycemia early this a.m. blood glucose level 69. Patient tolerating CPAP well greater than 12 hours in the last 24 hours. 05/27 The patient tolerated CPAP for over 36 hours, O2 sat a knee 94% on FIO2 40 %. The patient had an increase in appetite. The patient continues on full liquid diet. 05/28 The patient declined physical therapy treatment, yesterday and also overnight declined to be moved by nursing staff. The patient refused dinner last evening, of note patient was reevaluated by speech therapy and can consume a heart healthy diet with thin liquids. The patient continues on physical therapy for strengthening exercises of all extremities specifically noted right upper extremity continues to be weak with gross fibrillations noted in hand and forearm. 05/29 Afebrile. No change in right upper extremity weakness. The patient was seen by neurology yesterday plan for MRI today if possible in hospital MRI, and EMG studies. No complaints overnight. Patient continues to refuse to have activities performed, movement in bed. The patient appears to be depressed, psychiatry consulted. 05/30: Patient alert awake on CPAP. Following commands. Psych agrees the patient is depressed. MRI brain no acute findings 05/31: Awake alert. on PS 11/02. EMG could not be completed due to patient becoming anxious. Otherwise no acute events reported overnight 06/01: Remains PS from 11/02. Right upper extremity weakness persists. EMG to be repeated on Friday. Will need MRI of the brachial plexus. Chest x-ray is unchanged 06/02: States that "not feeling well". Febrile to 101.5. White count increasing but still within the normal range. Pancultured. We'll request ID reevaluation. 06/03: Resting in bed on C Pap/pressure support via tracheostomy. One out of 2 sets of blood cultures sent on 06/02 positive for gram-positive cocci. 06/04: Resting in bed on mechanical ventilation via tracheostomy. Afebrile overnight. MRI brachial plexus (06/03) revealed a collection near the right subscapularis muscle, possibly an abscess. Discussed with ID, orthopedics Dr. Velazquez consulted. I discussed the case with Dr. Velazquez this morning who feels this is probably an abscess however would be difficult to access surgically and he plans to set up percutaneous drainage by interventional radiology. 06/05: Resting in bed on mechanical ventilation via tracheostomy. Remains afebrile. Reportedly IR cannot do percutaneous drainage of collection involving right subscapularis muscle. 06/06: Resting in bed on mechanical ventilation via tracheostomy. Can actually speak around the trach. Remains afebrile. Dr. Velazquez evaluated patient and is scheduling surgery for drainage of fluid collection involving the right subscapularis muscle. 06/07: Resting in bed on mechanical ventilation via tracheostomy. Awaiting surgery today. 06/08: Status post I&D of collection near right shoulder/subscapularis on 06/[address] Velazquez. This morning patient is awake and alert complained of some pain at the surgical site. Remains on mechanical ventilation on C Pap/pressure support. Objective Vital Signs Date Time Temp Pulse Resp B/P Pulse Ox O2 Delivery O2 Flow Rate FiO2 06/08/16 09:00 92 22 171/77 96 06/08/16 08:00 98.1 06/08/16 08:00 40 Intake and Output 06/07/16 06/07/16 06/08/16 08:00 16:00 00:00 Intake Total 500 ml 248 ml 480 ml Output Total 600 ml 925 ml 650 ml Balance -100 ml -677 ml -170 ml Result Diagram: 06/08/16 0700 06/08/16 0700 Imaging Last Impressions Chest X-Ray 05/20/16 0000 Signed Impressions: Service Date/Time: Friday, May 20, 2016 03:21 - CONCLUSION: Persistent mid and lower lung areas of consolidation or atelectasis being worse in the right. There has been mild improvement. Garcia Lujan MD Upper Extremity Ultrasound 05/02/16 0000 Signed Impressions: Service Date/Time: April 20:51 - CONCLUSION: No DVT. Garcia Lujan MD Abdomen X-Ray 04/29/16 0000 Signed Impressions: Service Date/Time: Friday, April 29, 2016 07:12 - CONCLUSION: Suspect Dobbhoff tube in the distal stomach. Garcia Lujan MD Objective Remarks GENERAL: Patient is 31yo on ventilator via trach, awake and follows commands. Super Morbidly obese. Communicating appropriately SKIN: Warm and dry. HEAD: Normocephalic. EYES: No scleral icterus. No injection or drainage. NECK: Supple, trachea midline. Shiley 6.0 Proximal XLT, (new trach placed ) CARDIOVASCULAR:Tachycardic without murmurs, gallops, or rubs. RESPIRATORY: On mechanical ventilation, Breath sounds equal bilaterally. Distant secondary to habitus. GASTROINTESTINAL: Abdomen soft, obese, non-tender, nondistended. Multiple noted areas of ecchymotic bruising secondary to subcutaneous injections MUSCULOSKELETAL: No cyanosis, or edema. Pedal edema. Wound on lateral aspect of right lower leg above lateral malleolus , dressing C/D/I. right upper extremity motor strength, inability to perform flexion, or pronation, hand salesperson yard goods strength 2/5. Dressing around the right axilla/shoulder with RAGINI drain in place with serosanguineous drainage Neuro: Awake and alert. Moves all extremities with focal deficit right upper extremity as above. Date of Insertion: Apr 24, 2016 A/P Assessment and Plan ASSESSMENT Acute hypercapnic and hypoxemic respiratory failure Acute worsening of hypoxia due to lung de-recruitment 05/15/16 Healthcare associated pneumonia MDR Pseudomonas Enterococcal bacteremia Pseudomonas bacteremia Collection near right subscapularis muscle(On MRI 06/03) - abscess status post I& D on 06/07 Sepsis CHF exacerbation CO2 narcosis Tracheostomy aerial applicator pilot balloon damage -status post exchange with new Shiley 6.0 Proximal XLT 05/02/16 Chronic Respiratory Failure s/p Tracheostomy 4 years ago (Shiley 6.0 Proximal XLT) Probable right brachial plexus injury COPD/obesity hypoventilation syndrome Morbid Obesity BMI 67 History of pulmonary embolism 4 years ago Chronic atrial fibrillation Anxiety CHF (Echo 2013 EF 40-45%; ECHO 08/2015 showing a grossly normal systolic function) Hypertension Hypothyroidism PLAN NEURO: CO2 narcosis - resolved Critical care polyneuropathy Right upper extremity weakness 05/21-possibly secondary to nerve compression, C6 , C7 (brachial plexus) Pain Anxiety Depression -EMG/ NCV could not be completed on 05/[address] Castillo -Right upper extremity absence of triceps reflex, diminished sensation/numbness in C6-C7 dermatome level both anterior and posterior, inability for pronation, handgrip strength 08/04, lack of wrist extension/flexion. C6, C7 myotome pattern of muscle weakness.Positive shoulder abduction/adduction. -Clinically probably has right brachial plexus involvement. MRI of brachial plexus on 08/04 revealed collection involving right subscapularis muscle- s/p I & D on 06/[address] Velazquez. -Continued PT daily, with strengthening exercise (encouraged patient to participate) patient counseled on the importance. -Neurology Dr. Cheek-MRI brain C spine no acute findings. -Venous Doppler RUE 05/28-negative for DVT -Psychiatric consultation-agrees patient is depressed, On Seroquel. Continue Zoloft 50mg daily -On morphine 4 mg IV every 3 hours as needed for breakthrough pain. RESP: Acute hypercapnic and hypoxemic respiratory failure Acute lung derecruitment 05/15 with hypoxia Healthcare associated pneumonia Tracheostomy aerial applicator pilot balloon damage (Shiley 6.0 Proximal XLT) s/p new trach placement 05/02 Chronic Respiratory Failure s/p Tracheostomy 4 years ago COPD/obesity hypoventilation syndrome History of pulmonary embolism 4 years ago Leukocytosis-resolved Pulmonary edema - Continue with vent support keep sat >90%. Currently on CPAP. Attempt TP/TC if PS can be reduced - PSV 06/03 FiO2 45% and continue weaning as tolerated. - s/p Bronchoscopy 05/11 -follow up on BAL results-negative - DuoNeb every 6 hours scheduled, q 2 prn. - Pulmicort BID (home med), Continue Singulair 10 mg po daily - Therapeutic Lovenox 150 mg every 12 hours(held for surgery on 06/07), consider transition to Xarelto (home med) upon planned discharge CV: CHF exacerbation Pulmonary edema Paroxysmal atrial fibrillation (chronic) Hyperlipidemia -Monitor HR and BP keep MAP>65mmHg -Systolic BP [id number], continue to monitor trend possible escalation of antihypertensive meds -on Cardizem 60mg QID. Decrease bumex to 1mg daily PO from 1mg IV Q12 on 06/06. Decrease IVF to 50cc/hr on 06/06 -Continue Lipitor 10 g by mouth daily. Continue TriCor 40 mg by mouth daily -Therapeutic Lovenox 150 mg twice a day (held for surgery 06/07, resume when OK with Ortho) GI: Super morbid obesity with BMI of 63 -Regular diet ,thin liquids per speech recs. Refusing meals due to lack of appetite, Nausea -Liver US 06/03: Fatty liver, sludge in gall bladder, splenomegaly, no mechanical obstruction of bile duct noted. -On Pepcid 20mg BID -Multivitamin to medication regimen -Consider dietary supplementation FEN/RENAL: Hypokalemia - Monitor renal function , I/O. - Electrolytes replacement per protocol. - Bumex 1 mg IV q12 changed to 1mg PO daily on 06/06. KCL 40 q12 ID: Healthcare associated pneumonia Sepsis New fever MDRO Cellulitis right arm-resolved Leukocytosis-resolved Enterococcal faecalis bacteremia, Pseudomonas bacteremia (06/02, 06/03) -Rocephin (05/12- 05/25) -Blood culture: aerobic and anaerobic bottles - enterococcus faecalis, pseudomonas aeruginosa 06/02, 06/03 -Urine culture GNR 06/02 Wound culture GNR 06/02 Sputum culture GNR 06/02 -Urine cx: Proteus Mirabilis 05/05 -Sputum cx: Providencia 05/05- resolved -Wound cx: 05/13 Proteus, Pseudomonas, Group D Enterococcus -Wound culture Pseudomonas MDR 04/27 -Sputum culture-Pseudomonas MDR- 04/27 -Bronchoscopy and re-culture 05/10 follow up on BAL results-neg to date -Follow up on sputum cx from 05/15- NGTD -Repeat cultures sent on 06/02 including wound culture from the right lower extremity wound and resulted as above -Started on IV vancomycin 06/03 for GPC in blood culture - possibly from PICC which was removed after placement of Per IV on 06/03. Continues on colistin nebs. On Zerbaxa for MDR pseudomonas in blood cultures. ID following. MRI brachial plexus (06/03) revealed a collection involving right subscapularis muscle near right anterior axilla , possibly an abscess. Discussed with ID on 06/02, Orthopedics Dr. Velazquez consulted and following. Dr. Velazquez scheduled drainage of collection surgically for 06/07. HEME: History of PE on chronic anticoagulation with Xarelto Anemia, iron deficiency and anemia of critical illness. -Monitor CBC, -Xarelto for PE 4 yrs ago. -Xarelto.held, On therapeutic Lovenox 150 mg twice a day - (held for surgery ) -Ferrous sulfate 300 mg/q day ENDO: Hypothyroidism -On SSI (Low scale) -Continue levothyroxine 50 mcg po daily -Free T4 1.52 PROPH: -Bilateral lower extremity SCDs. Lovenox DVT therapeutic dose to be resumed when OK with Ortho. Will give lovenox 30mg [id number] till cleared for full anticoagulation by Ortho. GI prophylaxis- Pepcid switched to Protonix on 06/07 LINES: - PICC line RUE- No DVT on US 05/02 - removed on 06/03. Out of bed with assistance. PT out of bed with vent. OT. Discussed with CAR DEALER. Bo Land MD Jun 08, 2016 09:42
[2016-06-08] MEDS: RESP: COLISTIN 150 MG VIAL NEB SCH ×3 (11:37→23:37)
[2016-06-08] MEDS: ENOXAPARIN SODIUM 30 MG/0.3 ML SYRINGE SQ SCH ×2 (11:51→20:36)
[2016-06-08] MEDS: POTASSIUM CHLORIDE 20 MEQ CONTROLLED RELEASE TAB PO SCH (11:51)
[2016-06-08] MEDS: LABETALOL HCL 100 MG/20 ML VIAL IV PRN ×2 (11:52→18:46)
--- NOTE | 2016-06-08 13:45 | HHI.FPPN ---
Subjective Remarks POD1 debridement RUE abscess. No acute events. Afebrile. Hypertensive to 160/70 Tolerating CPAP via trach + T-piece- PEEP8 FIO2 40%. O2 saturation 94% Moderate nausea, denies emesis. Denies fevers/chills, CP/palpitations, worsening SOB, abdominal pain, calf pain. Urinating via catheter. +BM. OOB with assistance. Drain in RUE draining serosanguinous fluid. Bandage R lateral malleolus and trach c/d/i. SCD R foot. (Holley Baires MD R1) Objective Vitals Vital Signs Date Time Temp Pulse Resp B/P Pulse Ox O2 Delivery O2 Flow Rate FiO2 06/08/16 12:00 40 06/08/16 11:38 95 40 06/08/16 11:00 88 18 184/78 96 06/08/16 10:00 80 22 173/77 96 06/08/16 10:00 80 06/08/16 09:00 92 22 171/77 96 06/08/16 08:00 92 06/08/16 08:00 98.1 91 18 170/77 95 06/08/16 08:00 40 06/08/16 07:31 98 40 06/08/16 07:00 90 22 172/78 96 06/08/16 06:00 84 06/08/16 05:05 21 06/08/16 04:21 94 40 06/08/16 04:00 40 06/08/16 04:00 98.4 93 23 160/69 94 06/08/16 04:00 93 06/08/16 02:00 93 06/08/16 00:00 88 06/08/16 00:00 40 06/08/16 00:00 98.1 88 21 155/69 95 06/07/16 23:53 96 40 06/07/16 22:00 84 06/07/16 20:14 98 40 06/07/16 20:00 81 06/07/16 20:00 98.1 81 21 169/74 98 06/07/16 20:00 40 06/07/16 18:00 80 06/07/16 17:16 98 40 06/07/16 16:00 40 06/07/16 16:00 98.1 77 22 168/77 98 06/07/16 16:00 77 06/07/16 14:00 75 06/07/16 13:34 96 40 I/O 06/07/16 06/07/16 06/07/16 06/08/16 06/08/16 06/08/16 06:59 14:59 22:59 06:59 14:59 22:59 Intake Total 500 ml 248 ml 480 ml 1280 ml Output Total 600 ml 925 ml 650 ml 450 ml Balance -100 ml -677 ml -170 ml 830 ml Intake Oral 120 ml 480 ml 480 ml IV Total 500 ml 128 ml 800 ml Output Urine Total 600 ml 900 ml 600 ml 450 ml Drainage Total 25 ml 50 ml # Bowel Movements 1 1 (Holley Baires MD R1) Result Diagram: 06/08/16 0700 06/08/16 0700 Imaging Last Impressions Chest X-Ray 06/03/16 0600 Signed Impressions: Service Date/Time: Friday, June 03, 2016 03:22 - CONCLUSION: 1. Cardiomegaly with bilateral pulmonary edema. 2. Moderate right pleural effusion. Vishnu Woodward MD Liver Ultrasound 06/03/16 0000 Signed Impressions: Service Date/Time: Friday, June 03, 2016 08:10 - CONCLUSION: 1. There is some sludge in the gallbladder. This can be seen with chronic gallbladder disease. 2. Fatty infiltration of the liver which appears to be enlarged. 3. No mechanical biliary tract obstruction. 4. Splenomegaly. Lázaro Frankel MD Brachial Plexus MRI 06/03/16 0000 Signed Impressions: Service Date/Time: Friday, June 03, 2016 12:42 - CONCLUSION: There is a complex multiloculated soft tissue and cystic mass measuring approximately 5.5 x 6.0 x 7.8 cm involving the subscapularis muscle along the anterior right scapula. The differential considerations include neoplastic disease, infection and hematoma. Recommend a CT scan of the right shoulder to pre-plan for CT-guided aspiration/biopsy of this abnormality. Lázaro Frankel MD Cervical Spine MRI 05/29/16 0000 Signed Impressions: Service Date/Time: Sunday, May 29, 2016 13:51 - CONCLUSION: Limited study but appears normal. Vishnu Woodward MD Brain MRI 05/29/16 0000 Signed Impressions: Service Date/Time: Sunday, May 29, 2016 13:51 - CONCLUSION: 1. Focal chronic ischemic change in the high right frontal parietal convexity stable from previous CT scan. 2. No acute intracranial abnormality. 3. Minimal nonspecific white matter changes. Vishnu Woodward MD Upper Extremity Ultrasound 05/28/16 0000 Signed Impressions: Service Date/Time: Saturday, May 28, 2016 10:16 - CONCLUSION: 1. Negative for deep venous thrombosis. Venous line noted in cephalic, subclavian and internal jugular vein. Horacio Gupta MD Abdomen X-Ray 04/29/16 0000 Signed Impressions: Service Date/Time: Friday, April 29, 2016 07:12 - CONCLUSION: Suspect Dobbhoff tube in the distal stomach. Garcia Lujan MD Objective Remarks GEN: Morbidly obese male in NAD. DERM: Warm and dry. Venous stasis changes lower regions. Nails bitten down. Yellow ecchymosis periumbilical region and R pannus, healing. No erythema or skin breakdown appreciated. Numerous skin folds 2/2 habitus. Bandage R lateral malleolus c/d/i. HEENT: Tracheotomy site c/d/i. Poor dentition. PERRL. EOMI. CV: Distant heart sounds. RRR. Normal peripheral perfusion. RESP: T-piece in place. FIO2 45 Transmitted upper respiratory sounds. No wheezing GI: Abdomen soft, obese, non-tender. +BS MSK: RUE drain in place- serosanguinous fluid. LE edema 2+ bilaterally. No calf tenderness NEURO: Grossly normal cranial nerves. Shoulder shrug intact. SILT x4 extremities. Can move fingers RUE, but unable to move against gravity. Can lift LUE to chest, not face. Procedures 04/24- Started ventilation 05/02- Emergency Trach Exchange 06/03- PICC line removed 06/07- Debridement of RUE abscess (Dr. 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 Discharge Planning Uncertain, pending weaning from mechanical ventilation with stable clinical status and workup of R shoulder mass. Ideally, return to long-term rehab facility. If qualifies, could consider snf vent facility depending on status. Orthopedics, Critical care, ID, Psych, Neurology, IR, PT/OT, Gen Surgery, Rehabilitation consulted. Appreciate recommendations. (Holley Baires MD R1) Attending Attestation Pt. examined and case discussed with resident physicians I have read the above note and agree with the assessment/plan as discussed with me I was involved in all medical decision making for this patient Lázaro Rogers MD (Lázaro Rogers MD) Problem List: (1) Mass of soft tissue of right upper extremity Status: Acute Plan: -POD1 debridement subscapularis abscess today in OR by Dr. Velazquez - Surgical op note pending, appreciate recommendations - Fluid stain/culture or tissue pathology should be ordered, pending results of debridement - Daily PT/OT, as tolerated. Goal: RUE strength and self-feeding Impression: Multiloculated soft tissue and cystic mass 6 x 6 x 8cm involving R subscapularis muscle causing weakness RUE. ICT-guided biopsy not feasible per IR. Differential includes abscess vs neoplasm vs hematoma. Prior to hospitalization, able to transfer to wheelchair and feed self. Now unable to transfer or feed self. Initially thought to be C6/C7 neuropathy secondary morbid obesity and positioning, however MRI brachial plexus identified soft tissue mass. DVT, L hemispheric pathology, and seizure r/o w imaging (see below) . EMG scheduled, not performed as pt de-saturated to 80s on attempt. Imaging: - US negative for DVT (05/28) - MRI brain (04/28) no acute intracranial process - MRI C-spine (05/29): grossly wnl - EEG (05/29): diffuse mild encephalopathy vs normal Stage 2 sleep - MRI brachial plexus (06/03): "Complex multiloculated soft tissue and cystic mass 5.5 x 6 x 7.8 cm involving subscapularis muscle along anterior R scapula (2) Bacteremia Status: Acute Plan: - Increasing leukocytosis despite antibiotics 9 -> -20 - Vancomycin 2000mg IV daily goal trough 15-20, (06/03 -- ) - Zerbaxa IV q8h (06/05-- ) - Colistin 75mg q8h NEB - Follow repeat blood cultures: UCx (06/06): Group D Enterococcus. BCx PIV (06/05 ) NG3D -Change antibiotics, as guided by sensitivities (pending) - ID consulted, recommendations appreciated - Acetaminophen 325mg PRN fever Impression: Positive blood, sputum, urine cultures (06/03) for Pseudomonas aeruginosa and Enterococcus faecalis. Tmax 101.5F. Thought sepsis via PICC infection (PICC removed 06/03) as BCx PIV negative while BCx PICC grew above pathogens. Ddx benign colonization vs viremia. Serial CXRs grossly unchanged: cardiomegaly w b/l pulm edema and R pleural effusion. Abx History Zosyn 4.5gm IV q6h (04/24 - 04/29) Levaquin 750mg IV q24h (04/24-04/30) Zerbaxa 1.5 g IV q8h (04/29 - 05/07) Vancomycin IV (04/24 - 05/06) Ceftriaxone IV (05/07 - 05/25) Linezolid 600 mg PO BID (05/06 - 05/13) Vancomycin (06/03-- ) Zosyn 3.375 q6h (06/04- 06/05) Zerbaxa (ceftozolane/tazobactam) (06/05 --) (3) Paroxysmal a-fib Status: Chronic Plan: - Lovenox 30mg IV q12h, per critical care Impression: Held home Xarelto held while on therapeutic Lovenox- discontinued for surgery- reinstated 06/08 per CC at DVT dose. EKG 05/17: sinus rhythm (4) On mechanically assisted ventilation Status: Acute Plan: - CPAP (PS 15, PEEP 8, FiO2 40%) via trach t-piece - Pulmicort BID REYES - Duonebs q2h PRN - Singulair 10mg daily Impression: Acute on chronic hypoxemic respiratory failure secondary to HCAP ( resolved) and tracheostomy leak (s/p exchange 05/02). Baseline 6L NC at rehab. Mechanical ventilation initiated 04/24. Solumedrol (05/10-06/03) (5) CHF (congestive heart failure) Status: Chronic Plan: - Bumex 1mg PO daily + 40 KCl BID - Monitor I/Os, monitor renal function, peripheral edema Impression: Tolerating decreased Bumex well. Suspected HF with poor EF, though unable to confirm via ECHO (04/25/16) due to poor imaging. Unknown EF. BNP was 400, decreasing. (6) Hypertension Status: Chronic Plan: - Cardiazem 90mg QID - Labetalol 10mg IV PRN SBP 160+ (7) Nausea Status: Chronic Plan: - Zofran 4mg PO q6h PRN - Compazine 5mg PO q6h PRN - Protonix 20mg BID Impression: Chronic. Ddx: GERD vs psychosomatic vs impaired gastric emptying vs medication side effect. (8) Stable medical conditions Status: Chronic Plan: HYPERLIPIDEMIA -Atorvastatin 10mg daily and Tricor 48mg daily NORMOCYTIC ANEMIA - Ferrous sulfate 325mg PO daily - Multivitamin 1 tab PO daily MDD: - Pt reports stable mood; some anhedonia suspected. Previously, refusing meals , shower, PT - Sertraline 100 mg PO daily - Seroquel 100mg HS INSOMNIA -Zolpidem 5mg HS PRN GOUT -Allopurinol 300mg daily HYPOTHYROIDISM 08/2015- TSH low, free T4 grossly wnl (05/27/16) -Synthroid 50 mcg PO daily FUNGAL INFECTION -Nystatin powder and miconazole creme to skin folds MORBID OBESITY WITH BMI 60-69 -see above plan for mechanical ventilation RESOLVED CONDITIONS THIS HOSPITAL VISIT - Cellulitis of Chest Wall: completed course linezolid (05/06-05/13), per ID recs - Yeast UTI: completed course Diflucan. UCx 05/01: Dionne albicans. Repeat UCx 05/05: Proteus Mirabilis - HCAP: s/p multiple abx (9) Nutrition, metabolism, and development symptoms Status: Acute Plan: FEN: Fluids: PO (Limited to 1.5L/day PO) Electrolytes: 40KCl BID. Chronically hypokalemic, replete per protocol Nutrition: 2Kcal heart healthy diet. Transitioned to oral feeds (05/29). Needs help with feeding. PPX: GI ppx: Protonix 20mg BID DVT ppx: Lovenox 30mg BID Pain: Oxycodone 7.5/325 q4h PRN Bowels: Senna 1 tab HS PRN Wt: Admission: 480 lbs. Wt 12/9 ~445 lbs. Continue monitor, encourage, modify/restrict diet, as appropriate DW: Dr. Rogers SDW: Dr. Anderson (Holley Baires MD R1) Problem Qualifiers (1) CHF (congestive heart failure): Qualified Code: I50.9 - Acute on chronic congestive heart failure, unspecified congestive heart failure type (2) Hypertension: Qualified Code: I10 - Essential hypertension Holley Baires MD R1 Jun 08, 2016 13:45 Lázaro Rogers MD Jun 08, 2016 20:49
[2016-06-08] MEDS: QUEtiapine FUMARATE 100 MG TAB PO SCH (20:36)
[2016-06-08] MEDS: ZOLPIDEM TARTRATE 5 MG TAB PO PRN (20:36)
[2016-06-09] VITALS (20 sets, daily range): BP systolic 136–167; BP diastolic 67–72; PULSE 81–96; RESP 18–26; TEMP 97.7–98.6; O2SAT 95–100
[2016-06-09] MEDS: POTASSIUM CHLORIDE 20 MEQ CONTROLLED RELEASE TAB PO SCH ×3 (01:32→21:00)
[2016-06-09] MEDS: VANCOMYCIN INJ 2,000 MG in SODIUM CHLORID 0.9% 500 ML INJ 500 ML IV SCH ×2 (01:32→13:23)
[2016-06-09] MEDS: CEFTOLOZANE-TAZOBACTAM INJ 1,500 MG in SODIUM CHLORIDE 0.9% INJ 100 ML IV SCH ×3 (05:43→20:46)
[2016-06-09] MEDS: LEVOTHYROXINE SODIUM 50 MCG TAB PO SCH (05:50)
[2016-06-09] MEDS: PROCHLORPERAZINE MALEATE 5 MG TAB PO PRN (05:50)
[2016-06-09] MEDS: oxyCODONE/ACETAMINOPHEN 7.5 MG/325 MG TAB PO PRN ×2 (05:50→20:47)
[2016-06-09] MEDS: RESP: BUDESONIDE 0.5 MG/2 ML NEB NEB SCH ×2 (07:51→21:16)
[2016-06-09] MEDS: ONDANSETRON ODT 4 MG TAB PO PRN (08:33)
[2016-06-09] MEDS: ALLOPURINOL 300 MG TAB PO SCH (08:34)
[2016-06-09] MEDS: FERROUS SULFATE 325 MG (65 MG ELEMENTAL IRON) TAB PO SCH (08:34)
[2016-06-09] MEDS: FENOFIBRATE 48 MG TAB PO SCH (08:34)
[2016-06-09] MEDS: BUMETANIDE 1 MG TAB PO SCH (08:34)
[2016-06-09] MEDS: SODIUM CHLORIDE 0.9% FLUSH 5 ML FLUSH IVF SCH ×2 (08:34→20:47)
[2016-06-09] MEDS: MONTELUKAST SODIUM 10 MG TAB PO SCH (08:34)
[2016-06-09] MEDS: DILTIAZEM HCL 90 MG TAB PO SCH ×4 (08:34→20:46)
[2016-06-09] MEDS: ATORVASTATIN 10 MG TAB PO SCH (08:34)
[2016-06-09] MEDS: MULTIVITAMIN TAB PO SCH (08:34)
[2016-06-09] MEDS: SERTRALINE HCL 100 MG TAB PO SCH (08:34)
[2016-06-09] MEDS: PANTOPRAZOLE SOD 20 MG DELAYED RELEASE TAB PO SCH ×2 (08:34→20:46)
[2016-06-09] MEDS: CHLORHEXIDINE 0.12% (ORAL KIT) 15 ML CUP MT SCH ×2 (08:35→20:00)
[2016-06-09] MEDS: NYSTATIN 100,000 U/GM PWD 15 GM BTL TOPICAL SCH ×2 (08:36→20:47)
[2016-06-09] MEDS: MICONAZOLE NITRATE 2% CREAM 15 GM TOP SCH ×2 (08:36→20:47)
[2016-06-09] MEDS: COLLAGENASE OINT 30 GM TUBE TOP SCH (08:36)
--- NOTE | 2016-06-09 08:56 | HHI.CCPN ---
Subjective Remarks/Hospital Course 31 year old morbidly obese (BMI 68) male with chronic respiratory failure s/p tracheostomy 4 years ago, atrial fibrillation and pulmonary embolism on Xarelto , COPD, CHF and h/o HTN. He presented from [facility] with low oxygen saturation apparently his oxygen saturation was 82% on RA. He was placed back on 6L of oxygen via his trach mask and given a breathing treatment, initially improved however he started drifting back to low 80s again. Chest x-ray showed bibasilar infiltrates and pulmonary edema. Patient was admitted to the [facility] and was started on IV steroids IV vancomycin and Zosyn and Levaquin for healthcare associated pneumonia. After starting ACV, patient was more awake but there was a significant amount of air leak around his tracheostomy. Patient has had a Shiley 6.0 Proximal XLT, but the captain/airline pilot balloon had been cut off. 05/02 the patient became acutely hypoxemic with a large cuff leak, underwent emergency trach exchange at bedside by Dr. Macias. FiO2 65% PEEP 14 05/13 Patient is on ventilator via trach, on Fentanyl infusion however he is awake and alert. On PRVC with FIO2 40%. Afebrile. 05/14 No acute events overnight. Tmax 99.8. Patient is awake, alert on ventilator via trach still requiring increase O2. On PRVC with PEEP: 10 and FIO2 70%. 05/15 patient acutely desaturated after he was found. Saturation went down to 70% on 100% oxygen. Bag and mask ventilation carried out, with eventual improvement on oxygen saturation to 85%. Patient was placed on PC/AC mode of ventilation, with PEEP of 15 and instructed to pressure of 30. Eventually oxygen saturation improved to 95%. Lasix him today as the chest x-ray from today shows increasing bilateral infiltrate and pulmonary edema. Also sputum culture will be sent 05/16 Patient is on Fentanyl and Diprivan infusion but awake and alert. Afebrile. On PC/AC with PEEP:15, IP: 22, IT:1.3 and FIO2 50% 05/17 Patient is off Diprivan and remains on Fentanyl infusion for sedation. On PC/AC with PEEP: down 10 and FIO2 40%. Afebrile. 05/18 Patient remains on ventilator via trach on PC/AC with PEEP:12, FIO2 40%, IP:22, IT:1.0. On Fentanyl infusion 05/19 No acute events overnight. On Fentanyl infusion but awake and alert. Afebrile. 05/20 Tolerating C Pap 17/12 FIO2 40, sats 98%. RSBI in 20s, appears can be weaned further. Afebrile. Speech therapy evaluated and ok for regular diet. Starting with full liquid. 05/21 Will wean PSV to 15/10. Tolerated full liquids, will advance to regular diet per speech recs. Subjective: 05/22 On PSV 15/10 FIO2 40 with sats 92%. Smiling today. Glad to be eating regular food again. 05/23 No acute events overnight. Remains on CPAP with PS 15, PEEP:10 and FIO2 40 %. Afebrile. Off Fentanyl drip. Afebrile. Awake and alert. 05/24 Patient is on CPAP 06/06 with 40% FIO2. Afebrile. Awake and alert, on no sedation. 05/25 No acute events overnight. Patient was placed back on PC/AC overnight. Tolerated CPAP trials during day yesterday. Awake and alert. On no drips. Afebrile. 05/26 Afebrile. Tmax 98.6. Today the patient complained of nausea requiring Zofran. The patient has a lack of an appetite, with noted hypoglycemia early this a.m. blood glucose level 69. Patient tolerating CPAP well greater than 12 hours in the last 24 hours. 05/27 The patient tolerated CPAP for over 36 hours, O2 sat a knee 94% on FIO2 40 %. The patient had an increase in appetite. The patient continues on full liquid diet. 05/28 The patient declined physical therapy treatment, yesterday and also overnight declined to be moved by nursing staff. The patient refused dinner last evening, of note patient was reevaluated by speech therapy and can consume a heart healthy diet with thin liquids. The patient continues on physical therapy for strengthening exercises of all extremities specifically noted right upper extremity continues to be weak with gross fibrillations noted in hand and forearm. 05/29 Afebrile. No change in right upper extremity weakness. The patient was seen by neurology yesterday plan for MRI today if possible in hospital MRI, and EMG studies. No complaints overnight. Patient continues to refuse to have activities performed, movement in bed. The patient appears to be depressed, psychiatry consulted. 05/30: Patient alert awake on CPAP. Following commands. Psych agrees the patient is depressed. MRI brain no acute findings 05/31: Awake alert. on PS 11/02. EMG could not be completed due to patient becoming anxious. Otherwise no acute events reported overnight 06/01: Remains PS from 11/02. Right upper extremity weakness persists. EMG to be repeated on Friday. Will need MRI of the brachial plexus. Chest x-ray is unchanged 06/02: States that "not feeling well". Febrile to 101.5. White count increasing but still within the normal range. Pancultured. We'll request ID reevaluation. 06/03: Resting in bed on C Pap/pressure support via tracheostomy. One out of 2 sets of blood cultures sent on 06/02 positive for gram-positive cocci. 06/04: Resting in bed on mechanical ventilation via tracheostomy. Afebrile overnight. MRI brachial plexus (06/03) revealed a collection near the right subscapularis muscle, possibly an abscess. Discussed with ID, orthopedics Dr. Velazquez consulted. I discussed the case with Dr. Velazquez this morning who feels this is probably an abscess however would be difficult to access surgically and he plans to set up percutaneous drainage by interventional radiology. 06/05: Resting in bed on mechanical ventilation via tracheostomy. Remains afebrile. Reportedly IR cannot do percutaneous drainage of collection involving right subscapularis muscle. 06/06: Resting in bed on mechanical ventilation via tracheostomy. Can actually speak around the trach. Remains afebrile. Dr. Velazquez evaluated patient and is scheduling surgery for drainage of fluid collection involving the right subscapularis muscle. 06/07: Resting in bed on mechanical ventilation via tracheostomy. Awaiting surgery today. 06/08: Status post I&D of collection near right shoulder/subscapularis on 06/[address] Velazquez. This morning patient is awake and alert complained of some pain at the surgical site. Remains on mechanical ventilation on C Pap/pressure support. 06/09: Sleeping, arousable. On mechanical ventilation with C Pap/pressure support overnight. Labs pending Objective Vital Signs Date Time Temp Pulse Resp B/P Pulse Ox O2 Delivery O2 Flow Rate FiO2 06/09/16 08:00 88 06/09/16 08:00 97.8 21 150/68 95 06/09/16 08:00 40 Intake and Output 12/10/16 12/10/16 12/11/16 08:00 16:00 00:00 Intake Total 1280 ml 320 ml 1233 ml Output Total 450 ml 1100 ml 800 ml Balance 830 ml -780 ml 433 ml Result Diagram: 06/08/16 0700 06/08/16 0700 Imaging Last Impressions Chest X-Ray 05/20/16 0000 Signed Impressions: Service Date/Time: Friday, May 20, 2016 03:21 - CONCLUSION: Persistent mid and lower lung areas of consolidation or atelectasis being worse in the right. There has been mild improvement. Garcia Lujan MD Upper Extremity Ultrasound 05/02/16 0000 Signed Impressions: Service Date/Time: April 20:51 - CONCLUSION: No DVT. Garcia Lujan MD Abdomen X-Ray 04/29/16 0000 Signed Impressions: Service Date/Time: Friday, April 29, 2016 07:12 - CONCLUSION: Suspect Dobbhoff tube in the distal stomach. Garcia Lujan MD Objective Remarks GENERAL: Patient is 31yo on ventilator via trach, awakens and follows commands. Super Morbidly obese. SKIN: Warm and dry. HEAD: Normocephalic. EYES: No scleral icterus. No injection or drainage. NECK: Supple, trachea midline. Shiley 6.0 Proximal XLT, (new trach placed ) CARDIOVASCULAR:Tachycardic without murmurs, gallops, or rubs. RESPIRATORY: On mechanical ventilation, Breath sounds equal bilaterally. Distant secondary to habitus. GASTROINTESTINAL: Abdomen soft, obese, non-tender, nondistended. Multiple noted areas of ecchymotic bruising secondary to subcutaneous injections MUSCULOSKELETAL: No cyanosis, or edema. Pedal edema. Wound on lateral aspect of right lower leg above lateral malleolus , dressing C/D/I. right upper extremity motor strength, inability to perform flexion, or pronation, hand assistant merchandiser strength 2/5. Dressing around the right axilla/shoulder with RAGINI drain in place with serosanguineous drainage - 10cc since 06/08 Neuro: Drowsy, arousable. Moves all extremities with focal deficit right upper extremity as above. Date of Insertion: Apr 24, 2016 A/P Assessment and Plan ASSESSMENT Acute hypercapnic and hypoxemic respiratory failure Acute worsening of hypoxia due to lung de-recruitment 05/15/16 Healthcare associated pneumonia MDR Pseudomonas Enterococcal bacteremia Pseudomonas bacteremia Collection near right subscapularis muscle(On MRI 06/03) - abscess status post I& D on 06/07 Sepsis CHF exacerbation CO2 narcosis Tracheostomy captain/airline pilot balloon damage -status post exchange with new Shiley 6.0 Proximal XLT 05/02/16 Chronic Respiratory Failure s/p Tracheostomy 4 years ago (Shiley 6.0 Proximal XLT) Probable right brachial plexus injury COPD/obesity hypoventilation syndrome Morbid Obesity BMI 67 History of pulmonary embolism 4 years ago Chronic atrial fibrillation Anxiety CHF (Echo 2013 EF 40-45%; ECHO 08/2015 showing a grossly normal systolic function) Hypertension Hypothyroidism PLAN NEURO: CO2 narcosis - resolved Critical care polyneuropathy Right upper extremity weakness 05/21-possibly secondary to nerve compression, C6 , C7 (brachial plexus) Pain Anxiety Depression -EMG/ NCV could not be completed on 05/[address] Castillo -Right upper extremity absence of triceps reflex, diminished sensation/numbness in C6-C7 dermatome level both anterior and posterior, inability for pronation, handgrip strength /5, lack of wrist extension/flexion. C6, C7 myotome pattern of muscle weakness.Positive shoulder abduction/adduction. -Clinically probably has right brachial plexus involvement. MRI of brachial plexus on 08/04 revealed collection involving right subscapularis muscle- s/p I & D on 06/[address] Velazquez. -Continued PT daily, with strengthening exercise (encouraged patient to participate) patient counseled on the importance. -Neurology Dr. Cheek-MRI brain C spine no acute findings. -Venous Doppler RUE 05/28-negative for DVT -Psychiatric consultation-agrees patient is depressed, On Seroquel. Continue Zoloft 50mg daily -On morphine 4 mg IV every 3 hours as needed for breakthrough pain. RESP: Acute hypercapnic and hypoxemic respiratory failure Acute lung derecruitment 05/15 with hypoxia Healthcare associated pneumonia Tracheostomy captain/airline pilot balloon damage (Shiley 6.0 Proximal XLT) s/p new trach placement 05/02 Chronic Respiratory Failure s/p Tracheostomy 4 years ago COPD/obesity hypoventilation syndrome History of pulmonary embolism 4 years ago Leukocytosis-resolved Pulmonary edema - Continue with vent support keep sat >90%. Currently on CPAP. Attempt TP/TC if PS can be reduced - PSV 06/03 FiO2 45% and continue weaning as tolerated. - s/p Bronchoscopy 05/11 -follow up on BAL results-negative - DuoNeb every 6 hours scheduled, q 2 prn. - Pulmicort BID (home med), Continue Singulair 10 mg po daily - Therapeutic Lovenox 150 mg every 12 hours(held for surgery on 06/07), consider transition to Xarelto (home med) upon planned discharge CV: CHF exacerbation Pulmonary edema Paroxysmal atrial fibrillation (chronic) Hyperlipidemia -Monitor HR and BP keep MAP>65mmHg -Systolic BP [id number], continue to monitor trend possible escalation of antihypertensive meds -on Cardizem 60mg QID. Decrease bumex to 1mg daily PO from 1mg IV Q12 on 06/06. Decrease IVF to 50cc/hr on 06/06 -Continue Lipitor 10 g by mouth daily. Continue TriCor 40 mg by mouth daily -Therapeutic Lovenox 150 mg twice a day (held for surgery 06/07, resume when OK with Ortho) GI: Super morbid obesity with BMI of 63 -Regular diet ,thin liquids per speech recs. Refusing meals due to lack of appetite, Nausea -Liver US 06/03: Fatty liver, sludge in gall bladder, splenomegaly, no mechanical obstruction of bile duct noted. -On Pepcid 20mg BID -Multivitamin to medication regimen -Consider dietary supplementation FEN/RENAL: Hypokalemia - Monitor renal function , I/O. - Electrolytes replacement per protocol. - Bumex 1 mg IV q12 changed to 1mg PO daily on 06/06. KCL 40 q12 ID: Healthcare associated pneumonia Sepsis New fever MDRO Cellulitis right arm-resolved Leukocytosis-resolved Enterococcal faecalis bacteremia, Pseudomonas bacteremia (06/02, 06/03) -Rocephin (05/12- 05/25) -Blood culture: aerobic and anaerobic bottles - enterococcus faecalis, pseudomonas aeruginosa 06/02, 06/03 -Urine culture GNR 06/02 Wound culture GNR 06/02 Sputum culture GNR 06/02 -Urine cx: Proteus Mirabilis 05/05 -Sputum cx: Providencia 05/05- resolved -Wound cx: 05/13 Proteus, Pseudomonas, Group D Enterococcus -Wound culture Pseudomonas MDR 04/27 -Sputum culture-Pseudomonas MDR- 04/27 -Bronchoscopy and re-culture 05/10 follow up on BAL results-neg to date -Follow up on sputum cx from 05/15- NGTD -Repeat cultures sent on 06/02 including wound culture from the right lower extremity wound and resulted as above -Started on IV vancomycin 06/03 for GPC in blood culture - possibly from PICC which was removed after placement of Per IV on 06/03. Continues on colistin nebs. On Zerbaxa for MDR pseudomonas in blood cultures. ID following. MRI brachial plexus (06/03) revealed a collection involving right subscapularis muscle near right anterior axilla , possibly an abscess. Discussed with ID on 06/02, Orthopedics Dr. Velazquez consulted and following. Dr. Velazquez performed drainage of collection surgically on 06/07. HEME: History of PE on chronic anticoagulation with Xarelto Anemia, iron deficiency and anemia of critical illness. -Monitor CBC, -Xarelto for PE 4 yrs ago. -Xarelto.held, On therapeutic Lovenox 150 mg twice a day - (held for surgery - to be resumed if OK with Ortho). Started lovenox 30mg [id number] on 06/08 -Ferrous sulfate 300 mg/q day ENDO: Hypothyroidism -On SSI (Low scale) -Continue levothyroxine 50 mcg po daily -Free T4 1.52 PROPH: -Bilateral lower extremity SCDs. Lovenox DVT therapeutic dose to be resumed when OK with Ortho. lovenox 30mg [id number] till cleared for full anticoagulation by Ortho. GI prophylaxis- Pepcid switched to Protonix on 06/07 LINES: - PICC line RUE- No DVT on US 05/02 - removed on 06/03. Out of bed with assistance. PT out of bed with vent. OT. Discussed with [employer] PROGRAMMER. Bo Land MD Jun 09, 2016 08:56
[2016-06-09 09:11] LABS: HEMATOCRIT 24.7 % (39.0-51.0); MEAN CELL VOLUME 81.6 FL (80.0-100.0); MEAN CORPUSCULAR HEMOGLOBIN 25.5 PG (27.0-34.0); MEAN CORPUSCULAR HGB CONC 31.3 % (32.0-36.0); PLATELET COUNT 328 TH/MM3 (150-450); RED BLOOD COUNT 3.02 MIL/MM3 (4.50-5.90); RED CELL DISTRIBUTION WIDTH 24.9 % (11.6-17.2); REVIEW FLAG FINAL; WHITE BLOOD COUNT 17.8 TH/MM3 (4.0-11.0)
[2016-06-09 09:35] LABS: ALKALINE PHOSPHATASE 90 U/L (45-117); ALT (GPT) 16 U/L (12-78); ANION GAP 9 MEQ/L (5-15); AST (GOT) 22 U/L (15-37); BICARBONATE 33.5 MEQ/L (21.0-32.0); BLOOD UREA NITROGEN 9 MG/DL (7-18); CHLORIDE 98 MEQ/L (98-107); GLOMERULAR FILTRATION RATE 264 ML/MIN (>89); POTASSIUM 3.8 MEQ/L (3.5-5.1); SODIUM (NA) 140 MEQ/L (136-145); TOTAL BILIRUBIN ADULT 0.5 MG/DL (0.2-1.0)
[2016-06-09] MEDS: ENOXAPARIN SODIUM 30 MG/0.3 ML SYRINGE SQ SCH ×2 (11:18→20:46)
--- NOTE | 2016-06-09 13:07 | HHI.FPPN ---
Subjective Remarks POD2 debridement RUE abscess. No acute events. Afebrile. Hypertensive to 160/70 Tolerating CPAP via trach- PEEP8 FIO2 40%. O2 saturation 94-97% Moderate nausea, denies emesis. Denies fevers/chills, CP/palpitations, worsening SOB, abdominal pain, calf pain. Urinating via catheter. +BM. OOB with assistance. Drain in RUE draining minimal blood. Bandage R lateral malleolus and trach c/d/ i. SCD R foot. Objective Vitals Vital Signs Date Time Temp Pulse Resp B/P Pulse Ox O2 Delivery O2 Flow Rate FiO2 06/09/16 12:28 95 40 06/09/16 08:00 88 06/09/16 08:00 97.8 88 21 150/68 95 06/09/16 08:00 40 06/09/16 07:52 95 40 06/09/16 06:00 90 06/09/16 04:15 96 40 06/09/16 04:00 98.6 84 19 160/69 96 06/09/16 04:00 84 06/09/16 04:00 40 06/09/16 02:00 96 06/09/16 01:16 97 40 06/09/16 00:00 98.0 81 18 161/68 96 06/09/16 00:00 96 06/09/16 00:00 40 06/08/16 22:00 96 40 06/08/16 22:00 98 06/08/16 20:00 84 06/08/16 20:00 98.2 84 21 160/70 95 06/08/16 20:00 40 06/08/16 19:37 95 40 06/08/16 18:00 84 06/08/16 18:00 84 18 183/78 96 06/08/16 17:00 84 19 186/79 97 06/08/16 16:00 97.8 79 22 177/77 96 06/08/16 16:00 79 06/08/16 16:00 40 06/08/16 15:55 96 40 06/08/16 15:00 79 13 166/71 96 06/08/16 14:00 76 13 167/74 96 06/08/16 14:00 76 I/O 06/08/16 06/08/16 06/08/16 06/09/16 06/09/16/11/16 07:00 15:00 23:00 07:00 15:00 23:00 Intake Total 1280 ml 320 ml 1233 ml 1573 ml Output Total 450 ml 1100 ml 800 ml 533 ml Balance 830 ml -780 ml 433 ml 1040 ml Intake Oral 480 ml 320 ml 480 ml 1050 ml IV Total 800 ml 753 ml 523 ml Output Urine Total 450 ml 1100 ml 800 ml 523 ml Drainage Total 10 ml # Bowel Movements 1 0 0 0 Result Diagram: 06/09/16 0841 06/09/16 0841 Imaging Last Impressions Chest X-Ray 06/03/16 0600 Signed Impressions: Service Date/Time: Friday, June 03, 2016 03:22 - CONCLUSION: 1. Cardiomegaly with bilateral pulmonary edema. 2. Moderate right pleural effusion. Vishnu Woodward MD Liver Ultrasound 06/03/16 0000 Signed Impressions: Service Date/Time: Friday, June 03, 2016 08:10 - CONCLUSION: 1. There is some sludge in the gallbladder. This can be seen with chronic gallbladder disease. 2. Fatty infiltration of the liver which appears to be enlarged. 3. No mechanical biliary tract obstruction. 4. Splenomegaly. Lázaro Frankel MD Brachial Plexus MRI 06/03/16 0000 Signed Impressions: Service Date/Time: Friday, June 03, 2016 12:42 - CONCLUSION: There is a complex multiloculated soft tissue and cystic mass measuring approximately 5.5 x 6.0 x 7.8 cm involving the subscapularis muscle along the anterior right scapula. The differential considerations include neoplastic disease, infection and hematoma. Recommend a CT scan of the right shoulder to pre-plan for CT-guided aspiration/biopsy of this abnormality. Lázaro Frankel MD Cervical Spine MRI 05/29/16 0000 Signed Impressions: Service Date/Time: Sunday, May 29, 2016 13:51 - CONCLUSION: Limited study but appears normal. Vishnu Woodward MD Brain MRI 05/29/16 0000 Signed Impressions: Service Date/Time: Sunday, May 29, 2016 13:51 - CONCLUSION: 1. Focal chronic ischemic change in the high right frontal parietal convexity stable from previous CT scan. 2. No acute intracranial abnormality. 3. Minimal nonspecific white matter changes. Vishnu Woodward MD Upper Extremity Ultrasound 05/28/16 0000 Signed Impressions: Service Date/Time: Saturday, May 28, 2016 10:16 - CONCLUSION: 1. Negative for deep venous thrombosis. Venous line noted in cephalic, subclavian and internal jugular vein. Horacio Gupta MD Abdomen X-Ray 04/29/16 0000 Signed Impressions: Service Date/Time: Friday, April 29, 2016 07:12 - CONCLUSION: Suspect Dobbhoff tube in the distal stomach. Garcia Lujan MD Objective Remarks GEN: Morbidly obese male in NAD. DERM: Warm and dry. Venous stasis changes lower regions. Nails bitten down. Yellow ecchymosis periumbilical region and R pannus, healing. No erythema or skin breakdown appreciated. Numerous skin folds 2/2 habitus. Bandage R lateral malleolus c/d/i. HEENT: Tracheotomy site c/d/i. Poor dentition. PERRL. EOMI. CV: Distant heart sounds. RRR. Normal peripheral perfusion. RESP: T-piece in place. Transmitted upper respiratory sounds. No wheezing GI: Abdomen soft, obese, non-tender. +BS MSK: RUE drain in place- minimal bloody drainage. LE edema 2+ bilaterally. No calf tenderness NEURO: Grossly normal cranial nerves. Shoulder shrug intact. SILT x4 extremities. Can move fingers RUE, but unable to move against gravity. Can lift LUE to chest, not face. Procedures 04/24- Started ventilation 05/02- Emergency Trach Exchange 06/03- PICC line removed 06/07- Debridement of RUE abscess (Dr. Velazquez), RUE drain 06/10- RUE drain removal Date of Insertion: Apr 24, 2016 A/P Assessment and Plan 31y male w chronic respiratory failure s/p tracheostomy 4y ago and Pickwickian hypoventilation syndrome (BMI 60+) presents with [id number] hypoxia, tracheostomy seal leak, and PNA. Discharge Planning Uncertain, pending weaning from mechanical ventilation with stable clinical status and workup of R shoulder mass. Ideally, return to long-term rehab facility. If qualifies, could consider exterminator helper termite vent facility depending on status. Orthopedics, Critical care, ID, Psych, Neurology, IR, PT/OT, Gen Surgery, Rehabilitation consulted. Appreciate recommendations. Problem List: (1) Mass of soft tissue of right upper extremity Status: Acute Plan: - POD2 debridement subscapularis abscess 06/07/[address] Velazquez - BENITO drain in place. Minimal bloody drainage. Planned removal tomorrow. - Surgical op note pending, appreciate recommendations - Shoulder tissue pathology pending - Daily PT/OT, as tolerated. Goal: RUE strength and self-feeding Impression: Multiloculated soft tissue and cystic mass 6 x 6 x 8cm involving R subscapularis muscle causing weakness RUE. ICT-guided biopsy not feasible per IR. Differential includes abscess vs neoplasm vs hematoma. Prior to hospitalization, able to transfer to wheelchair and feed self. Now unable to transfer or feed self. Initially thought to be C6/C7 neuropathy secondary morbid obesity and positioning, however MRI brachial plexus identified soft tissue mass. DVT, L hemispheric pathology, and seizure r/o w imaging (see below) . EMG scheduled, not performed as pt de-saturated to 80s on attempt. Imaging: - US negative for DVT (05/28) - MRI brain (04/28) no acute intracranial process - MRI C-spine (05/29): grossly wnl - EEG (05/29): diffuse mild encephalopathy vs normal Stage 2 sleep - MRI brachial plexus (06/03): "Complex multiloculated soft tissue and cystic mass 5.5 x 6 x 7.8 cm involving subscapularis muscle along anterior R scapula (2) Bacteremia Status: Acute Plan: - Decreasing leukocytosis 20 -> 17. Afebrile. - Appreciate ID recommendations - Vancomycin 2000mg IV daily goal trough 15-20, (06/03 -- ) - Zerbaxa IV q8h (06/05-- ) - Colistin 75mg q8h NEB - Acetaminophen 325mg PRN fever Impression: Positive blood, sputum, urine cultures (06/03) for Pseudomonas aeruginosa and Enterococcus faecalis. Tmax 101.5F. Thought sepsis via PICC infection as BCx PIV negative while BCx PICC grew pathogens. Repeat blood cultures 06/06 were negative, while UCx grew Group D Enterococcus. Ddx bacteremia vs benign colonization vs viremia. Serial CXRs grossly unchanged: cardiomegaly w b/l pulm edema and R pleural effusion. Abx History Zosyn 4.5gm IV q6h (04/24 - 04/29) Levaquin 750mg IV q24h (04/24-04/30) Zerbaxa 1.5 g IV q8h (04/29 - 05/07) Vancomycin IV (04/24 - 05/06) Ceftriaxone IV (05/07 - 05/25) Linezolid 600 mg PO BID (05/06 - 05/13) Vancomycin (06/03-- ) Zosyn 3.375 q6h (06/04- 06/05) Zerbaxa (ceftozolane/tazobactam) (06/05 --) (3) Paroxysmal a-fib Status: Chronic Plan: - Lovenox 30mg IV q12h, per critical care - Increase to Lovenox 60mg IV BID 06/10. If well tolerated, continue to increase to therapeutic in several days. Impression: Therapeutic Lovenox held for surgery 06/07. DVT prophylaxis re- initiated 06/08. Will return to therapeutic Lovenox per CC and orthopedic recommendations. Held home Xarelto. EKG 05/17: sinus rhythm (4) On mechanically assisted ventilation Status: Acute Plan: - CPAP (PS 12, PEEP 8, FiO2 40%) via trach - Pulmicort BID REYES - Duonebs q2h PRN - Singulair 10mg daily Impression: Acute on chronic hypoxemic respiratory failure secondary to HCAP ( resolved) and tracheostomy leak (s/p exchange 05/02). Baseline 6L NC at rehab. Mechanical ventilation initiated 04/24. Solumedrol (05/10-06/03) (5) CHF (congestive heart failure) Status: Chronic Plan: - Bumex 1mg PO daily + 40 KCl BID - Monitor I/Os, monitor renal function, peripheral edema Impression: Tolerating decreased Bumex well. Suspected HF with poor EF, though unable to confirm via ECHO (04/25/16) due to poor imaging. Unknown EF. BNP was 400, decreasing. (6) Hypertension Status: Chronic Plan: - Cardiazem 90mg QID - Labetalol 10mg IV PRN SBP 160+ (7) Nausea Status: Chronic Plan: - Zofran 4mg PO q6h PRN - Compazine 5mg PO q6h PRN - Protonix 20mg BID Impression: Chronic. Ddx: GERD vs psychosomatic vs impaired gastric emptying vs medication side effect. (8) Stable medical conditions Status: Chronic Plan: HYPERLIPIDEMIA -Atorvastatin 10mg daily and Tricor 48mg daily NORMOCYTIC ANEMIA - Ferrous sulfate 325mg PO daily - Multivitamin 1 tab PO daily MDD: - Pt reports stable mood; some anhedonia suspected. Previously, refusing meals , shower, PT - Sertraline 100 mg PO daily - Seroquel 100mg HS INSOMNIA -Zolpidem 5mg HS PRN GOUT -Allopurinol 300mg daily HYPOTHYROIDISM 08/2015- TSH low, free T4 grossly wnl (05/27/16) -Synthroid 50 mcg PO daily FUNGAL INFECTION -Nystatin powder and miconazole creme to skin folds MORBID OBESITY WITH BMI 60-69 -see above plan for mechanical ventilation RESOLVED CONDITIONS THIS HOSPITAL VISIT - Cellulitis of Chest Wall: completed course linezolid (05/06-05/13), per ID recs - Yeast UTI: completed course Diflucan. UCx 05/01: Dionne albicans. Repeat UCx 05/05: Proteus Mirabilis - HCAP: s/p multiple abx (9) Nutrition, metabolism, and development symptoms Status: Acute Plan: FEN: Fluids: PO (Limited to 1.5L/day PO) Electrolytes: 40KCl BID. Chronically hypokalemic, replete per protocol Nutrition: 2Kcal heart healthy diet. Transitioned to oral feeds (05/29). Needs help with feeding. PPX: GI ppx: Protonix 20mg BID DVT ppx: Lovenox 30mg BID Pain: Oxycodone 7.5/325 q4h PRN Bowels: Senna 1 tab HS PRN Wt: Admission: 480 lbs. Wt 06/07 ~445 lbs. Continue monitor, encourage, modify/restrict diet, as appropriate DW: Dr. Rogers SDW: Dr. Anderson Problem Qualifiers (1) CHF (congestive heart failure): Qualified Code: I50.9 - Acute on chronic congestive heart failure, unspecified congestive heart failure type (2) Hypertension: Qualified Code: I10 - Essential hypertension Holley Baires MD R1 Jun 09, 2016 13:07
--- NOTE | 2016-06-09 14:16 | EKG ---
Date Performed: 06/07/2016 Time Performed: 07:08:34 PTAGE: 31 years EKG: Sinus rhythm NORMAL ECG Compared to PREVIOUS TRACING ST-T abnormalities have resolved PREVIOUS TRACIN05/17/2016 07.45 DOCTOR: Corbin Fox Interpretating Date/Time 06/09/2016 14:15:02
[2016-06-09] MEDS: RESP: COLISTIN 150 MG VIAL NEB SCH ×2 (15:22→23:42)
[2016-06-09] MEDS: QUEtiapine FUMARATE 100 MG TAB PO SCH (20:46)
[2016-06-09] MEDS: MORPHINE SULFATE 4 MG/ML INJ IV PUSH PRN (21:00)
[2016-06-10] VITALS (17 sets, daily range): BP systolic 131–154; BP diastolic 63–72; PULSE 78–97; RESP 18–27; TEMP 98.2–98.7; O2SAT 98–100
[2016-06-10] MEDS: oxyCODONE/ACETAMINOPHEN 7.5 MG/325 MG TAB PO PRN ×3 (03:15→21:24)
[2016-06-10] MEDS: VANCOMYCIN INJ 2,000 MG in SODIUM CHLORID 0.9% 500 ML INJ 500 ML IV SCH ×2 (03:16→13:50)
[2016-06-10] MEDS: CEFTOLOZANE-TAZOBACTAM INJ 1,500 MG in SODIUM CHLORIDE 0.9% INJ 100 ML IV SCH ×3 (03:16→21:18)
[2016-06-10] MEDS: LEVOTHYROXINE SODIUM 50 MCG TAB PO SCH (05:11)
[2016-06-10 06:24] LABS: AUTOMATED NEUTROPHIL # 11.3 TH/MM3 (1.8-7.7); BASOPHIL # 0.1 TH/MM3 (0-0.2); BASOPHIL % 0.5 % (0.0-2.0); EOSINOPHIL # 0.1 TH/MM3 (0-0.4); EOSINOPHIL % 0.8 % (0.0-4.0); LYMPH % 11.7 % (9.0-44.0); LYMPHOCYTE # 1.7 TH/MM3 (1.0-4.8); MEAN CELL VOLUME 82.2 FL (80.0-100.0); MEAN CORPUSCULAR HEMOGLOBIN 24.8 PG (27.0-34.0); MEAN CORPUSCULAR HGB CONC 30.2 % (32.0-36.0); MONO % 7.8 % (0.0-8.0); NEUT % 79.2 % (16.0-70.0); PLATELET COUNT 343 TH/MM3 (150-450); RED BLOOD COUNT 3.16 MIL/MM3 (4.50-5.90); WHITE BLOOD COUNT 14.3 TH/MM3 (4.0-11.0)
[2016-06-10 06:37] LABS: HEMO FLAGS AUTO DIFF
[2016-06-10] MEDS: RESP: BUDESONIDE 0.5 MG/2 ML NEB NEB SCH ×2 (07:33→19:48)
[2016-06-10 07:37] LABS: ALT (GPT) 18 U/L (12-78); ANION GAP 10 MEQ/L (5-15); AST (GOT) 26 U/L (15-37); BICARBONATE 31.6 MEQ/L (21.0-32.0); BLOOD UREA NITROGEN 7 MG/DL (7-18); CHLORIDE 99 MEQ/L (98-107); POTASSIUM 3.3 MEQ/L (3.5-5.1); SODIUM (NA) 141 MEQ/L (136-145)
[2016-06-10 07:39] LABS: ALKALINE PHOSPHATASE 84 U/L (45-117); GLOMERULAR FILTRATION RATE 323 ML/MIN (>89); TOTAL BILIRUBIN ADULT 0.5 MG/DL (0.2-1.0)
[2016-06-10 07:55] LABS: BANDS 15 % (0-6); BASOPHILS 1 % (0-2); METAMYELOCYTES 14 % (0-1); MYELOCYTES 3 % (0-0); NEUTROPHIL # MANUAL DIFF 11.9 TH/MM3 (1.8-7.7); POLYS (SEG NEUTROPHILS) 51 % (16-70); WBC DIFF SAMPLE 100
[2016-06-10 07:56] LABS: ACANTHOCYTES OCC (NORMAL); PLATELET ESTIMATE SMEAR NORMAL (NORMAL); PLATELET MORPHOLOGY NORMAL (NORMAL); SCAN/DIFF FINAL DIFF MANUAL
[2016-06-10] MEDS: RESP: COLISTIN 150 MG VIAL NEB SCH ×3 (08:14→23:59)
[2016-06-10] MEDS: ONDANSETRON ODT 4 MG TAB PO PRN (08:25)
[2016-06-10] MEDS: CHLORHEXIDINE 0.12% (ORAL KIT) 15 ML CUP MT SCH ×2 (08:54→21:18)
[2016-06-10] MEDS: PROCHLORPERAZINE MALEATE 5 MG TAB PO PRN (08:55)
[2016-06-10] MEDS: BUMETANIDE 1 MG TAB PO SCH (08:56)
[2016-06-10] MEDS: DILTIAZEM HCL 90 MG TAB PO SCH ×4 (08:56→21:20)
[2016-06-10] MEDS: PANTOPRAZOLE SOD 20 MG DELAYED RELEASE TAB PO SCH ×2 (08:56→21:20)
[2016-06-10] MEDS: ATORVASTATIN 10 MG TAB PO SCH (08:56)
[2016-06-10] MEDS: FENOFIBRATE 48 MG TAB PO SCH (08:56)
[2016-06-10] MEDS: FERROUS SULFATE 325 MG (65 MG ELEMENTAL IRON) TAB PO SCH (08:57)
[2016-06-10] MEDS: MONTELUKAST SODIUM 10 MG TAB PO SCH (08:57)
[2016-06-10] MEDS: MULTIVITAMIN TAB PO SCH (08:57)
[2016-06-10] MEDS: ACETAMINOPHEN 325 MG TAB PO PRN (08:57)
[2016-06-10] MEDS: SERTRALINE HCL 100 MG TAB PO SCH (08:57)
[2016-06-10] MEDS: ALLOPURINOL 300 MG TAB PO SCH (08:57)
[2016-06-10] MEDS: MICONAZOLE NITRATE 2% CREAM 15 GM TOP SCH ×2 (08:58→21:19)
[2016-06-10] MEDS: SODIUM CHLORIDE 0.9% FLUSH 5 ML FLUSH IVF SCH ×2 (08:58→21:18)
[2016-06-10] MEDS: NYSTATIN 100,000 U/GM PWD 15 GM BTL TOPICAL SCH ×2 (08:58→21:19)
[2016-06-10] MEDS: COLLAGENASE OINT 30 GM TUBE TOP SCH (09:00)
[2016-06-10] MEDS: ENOXAPARIN SODIUM 30 MG/0.3 ML SYRINGE SQ SCH ×2 (09:01→21:18)
--- NOTE | 2016-06-10 09:08 | HHI.CCPN ---
Subjective Remarks/Hospital Course 31 year old morbidly obese (BMI 68) male with chronic respiratory failure s/p tracheostomy 4 years ago, atrial fibrillation and pulmonary embolism on Xarelto , COPD, CHF and h/o HTN. He presented from [facility] with low oxygen saturation apparently his oxygen saturation was 82% on RA. He was placed back on 6L of oxygen via his trach mask and given a breathing treatment, initially improved however he started drifting back to low 80s again. Chest x-ray showed bibasilar infiltrates and pulmonary edema. Patient was admitted to the [facility] and was started on IV steroids IV vancomycin and Zosyn and Levaquin for healthcare associated pneumonia. After starting ACV, patient was more awake but there was a significant amount of air leak around his tracheostomy. Patient has had a Shiley 6.0 Proximal XLT, but the carburetor specialist balloon had been cut off. 05/02 the patient became acutely hypoxemic with a large cuff leak, underwent emergency trach exchange at bedside by Dr. Macias. FiO2 65% PEEP 14 05/13 Patient is on ventilator via trach, on Fentanyl infusion however he is awake and alert. On PRVC with FIO2 40%. Afebrile. 05/14 No acute events overnight. Tmax 99.8. Patient is awake, alert on ventilator via trach still requiring increase O2. On PRVC with PEEP: 10 and FIO2 70%. 05/15 patient acutely desaturated after he was found. Saturation went down to 70% on 100% oxygen. Bag and mask ventilation carried out, with eventual improvement on oxygen saturation to 85%. Patient was placed on PC/AC mode of ventilation, with PEEP of 15 and instructed to pressure of 30. Eventually oxygen saturation improved to 95%. Lasix him today as the chest x-ray from today shows increasing bilateral infiltrate and pulmonary edema. Also sputum culture will be sent 05/16 Patient is on Fentanyl and Diprivan infusion but awake and alert. Afebrile. On PC/AC with PEEP:15, IP: 22, IT:1.3 and FIO2 50% 05/17 Patient is off Diprivan and remains on Fentanyl infusion for sedation. On PC/AC with PEEP: down 10 and FIO2 40%. Afebrile. 05/18 Patient remains on ventilator via trach on PC/AC with PEEP:12, FIO2 40%, IP:22, IT:1.0. On Fentanyl infusion 05/19 No acute events overnight. On Fentanyl infusion but awake and alert. Afebrile. 05/20 Tolerating C Pap 17/12 FIO2 40, sats 98%. RSBI in 20s, appears can be weaned further. Afebrile. Speech therapy evaluated and ok for regular diet. Starting with full liquid. 05/21 Will wean PSV to 15/10. Tolerated full liquids, will advance to regular diet per speech recs. Subjective: 05/22 On PSV 15/10 FIO2 40 with sats 92%. Smiling today. Glad to be eating regular food again. 05/23 No acute events overnight. Remains on CPAP with PS 15, PEEP:10 and FIO2 40 %. Afebrile. Off Fentanyl drip. Afebrile. Awake and alert. 05/24 Patient is on CPAP 06/06 with 40% FIO2. Afebrile. Awake and alert, on no sedation. 05/25 No acute events overnight. Patient was placed back on PC/AC overnight. Tolerated CPAP trials during day yesterday. Awake and alert. On no drips. Afebrile. 05/26 Afebrile. Tmax 98.6. Today the patient complained of nausea requiring Zofran. The patient has a lack of an appetite, with noted hypoglycemia early this a.m. blood glucose level 69. Patient tolerating CPAP well greater than 12 hours in the last 24 hours. 05/27 The patient tolerated CPAP for over 36 hours, O2 sat a knee 94% on FIO2 40 %. The patient had an increase in appetite. The patient continues on full liquid diet. 05/28 The patient declined physical therapy treatment, yesterday and also overnight declined to be moved by nursing staff. The patient refused dinner last evening, of note patient was reevaluated by speech therapy and can consume a heart healthy diet with thin liquids. The patient continues on physical therapy for strengthening exercises of all extremities specifically noted right upper extremity continues to be weak with gross fibrillations noted in hand and forearm. 05/29 Afebrile. No change in right upper extremity weakness. The patient was seen by neurology yesterday plan for MRI today if possible in hospital MRI, and EMG studies. No complaints overnight. Patient continues to refuse to have activities performed, movement in bed. The patient appears to be depressed, psychiatry consulted. 05/30: Patient alert awake on CPAP. Following commands. Psych agrees the patient is depressed. MRI brain no acute findings 05/31: Awake alert. on PS 15/8. EMG could not be completed due to patient becoming anxious. Otherwise no acute events reported overnight 06/01: Remains PS from 8. Right upper extremity weakness persists. EMG to be repeated on Friday. Will need MRI of the brachial plexus. Chest x-ray is unchanged 06/02: States that "not feeling well". Febrile to 101.5. White count increasing but still within the normal range. Pancultured. We'll request ID reevaluation. 06/03: Resting in bed on C Pap/pressure support via tracheostomy. One out of 2 sets of blood cultures sent on 06/02 positive for gram-positive cocci. 06/04: Resting in bed on mechanical ventilation via tracheostomy. Afebrile overnight. MRI brachial plexus (06/03) revealed a collection near the right subscapularis muscle, possibly an abscess. Discussed with ID, orthopedics Dr. Velazquez consulted. I discussed the case with Dr. Velazquez this morning who feels this is probably an abscess however would be difficult to access surgically and he plans to set up percutaneous drainage by interventional radiology. 06/05: Resting in bed on mechanical ventilation via tracheostomy. Remains afebrile. Reportedly IR cannot do percutaneous drainage of collection involving right subscapularis muscle. 06/06: Resting in bed on mechanical ventilation via tracheostomy. Can actually speak around the trach. Remains afebrile. Dr. Velazquez evaluated patient and is scheduling surgery for drainage of fluid collection involving the right subscapularis muscle. 06/07: Resting in bed on mechanical ventilation via tracheostomy. Awaiting surgery today. 06/08: Status post I&D of collection near right shoulder/subscapularis on 06/[address] Velazquez. This morning patient is awake and alert complained of some pain at the surgical site. Remains on mechanical ventilation on C Pap/pressure support. 06/09: Sleeping, arousable. On mechanical ventilation with C Pap/pressure support overnight. Labs pending 06/10 No acute events overnight. On CPAP with PS 12, PEEP: 8, FIO2 40%. Afebrile. Objective Vital Signs Date Time Temp Pulse Resp B/P Pulse Ox O2 Delivery O2 Flow Rate FiO2 06/10/16 08:14 100 40 12/12/16 06:00 85 06/10/16 04:00 98.2 22 145/72 Intake and Output 06/09/16 06/09/16 06/10/16 08:00 16:00 00:00 Intake Total 1573 ml 1047 ml 984 ml Output Total 533 ml 2000 ml 644 ml Balance 1040 ml -953 ml 340 ml Result Diagram: 06/10/16 0459 06/10/16 0459 Other Results Laboratory Tests Test 06/10/16 04:59 White Blood Count 14.3 TH/MM3 Red Blood Count 3.16 MIL/MM3 Hemoglobin 7.8 GM/DL Hematocrit 26.0 % Mean Corpuscular Volume 82.2 FL Mean Corpuscular Hemoglobin 24.8 PG Mean Corpuscular Hemoglobin 30.2 % Concent Red Cell Distribution Width 25.0 % Platelet Count 343 TH/MM3 Mean Platelet Volume 7.0 FL Neutrophils (%) (Auto) 79.2 % Lymphocytes (%) (Auto) 11.7 % Monocytes (%) (Auto) 7.8 % Eosinophils (%) (Auto) 0.8 % Basophils (%) (Auto) 0.5 % Neutrophils # (Auto) 11.3 TH/MM3 Lymphocytes # (Auto) 1.7 TH/MM3 Monocytes # (Auto) 1.1 TH/MM3 Eosinophils # (Auto) 0.1 TH/MM3 Basophils # (Auto) 0.1 TH/MM3 CBC Comment AUTO DIFF Differential Total Cells 100 Counted Neutrophils % (Manual) 51 % Band Neutrophils % 15 % Lymphocytes % 8 % Monocytes % 8 % Basophils % 1 % Neutrophils # (Manual) 11.9 TH/MM3 Metamyelocytes 14 % Myelocytes 3 % Differential Comment FINAL DIFF MANUAL Platelet Estimate NORMAL Platelet Morphology Comment NORMAL Basophilic Stippling FAINT Acanthocytes OCC Sodium Level 141 MEQ/L Potassium Level 3.3 MEQ/L Chloride Level 99 MEQ/L Carbon Dioxide Level 31.6 MEQ/L Anion Gap 10 MEQ/L Blood Urea Nitrogen 7 MG/DL Creatinine 0.32 MG/DL Estimat Glomerular Filtration 323 ML/MIN Rate Random Glucose 78 MG/DL Calcium Level 8.2 MG/DL Total Bilirubin 0.5 MG/DL Aspartate Amino Transf 26 U/L (AST/SGOT) Alanine Aminotransferase 18 U/L (ALT/SGPT) Alkaline Phosphatase 84 U/L Total Protein 5.0 GM/DL Albumin 1.7 GM/DL Imaging Last Impressions Chest X-Ray 06/03/16 0600 Signed Impressions: Service Date/Time: Friday, June 03, 2016 03:22 - CONCLUSION: 1. Cardiomegaly with bilateral pulmonary edema. 2. Moderate right pleural effusion. Vishnu Woodward MD Liver Ultrasound 06/03/16 0000 Signed Impressions: Service Date/Time: Friday, June 03, 2016 08:10 - CONCLUSION: 1. There is some sludge in the gallbladder. This can be seen with chronic gallbladder disease. 2. Fatty infiltration of the liver which appears to be enlarged. 3. No mechanical biliary tract obstruction. 4. Splenomegaly. Lázaro Frankel MD Brachial Plexus MRI 06/03/16 0000 Signed Impressions: Service Date/Time: Friday, June 03, 2016 12:42 - CONCLUSION: There is a complex multiloculated soft tissue and cystic mass measuring approximately 5.5 x 6.0 x 7.8 cm involving the subscapularis muscle along the anterior right scapula. The differential considerations include neoplastic disease, infection and hematoma. Recommend a CT scan of the right shoulder to pre-plan for CT-guided aspiration/biopsy of this abnormality. Lázaro Frankel MD Cervical Spine MRI 05/29/16 0000 Signed Impressions: Service Date/Time: Sunday, May 29, 2016 13:51 - CONCLUSION: Limited study but appears normal. Vishnu Woodward MD Brain MRI 05/29/16 0000 Signed Impressions: Service Date/Time: Sunday, May 29, 2016 13:51 - CONCLUSION: 1. Focal chronic ischemic change in the high right frontal parietal convexity stable from previous CT scan. 2. No acute intracranial abnormality. 3. Minimal nonspecific white matter changes. Vishnu Woodward MD Upper Extremity Ultrasound 05/28/16 0000 Signed Impressions: Service Date/Time: Saturday, May 28, 2016 10:16 - CONCLUSION: 1. Negative for deep venous thrombosis. Venous line noted in cephalic, subclavian and internal jugular vein. Horacio Gupta MD Abdomen X-Ray 04/29/16 0000 Signed Impressions: Service Date/Time: Friday, April 29, 2016 07:12 - CONCLUSION: Suspect Dobbhoff tube in the distal stomach. Garcia Lujan MD Objective Remarks GENERAL: Patient is 31yo on ventilator via trach, awakens and follows commands. Super Morbidly obese. SKIN: Warm and dry. HEAD: Normocephalic. EYES: No scleral icterus. No injection or drainage. NECK: Supple, trachea midline. Shiley 6.0 Proximal XLT, (new trach placed ) CARDIOVASCULAR:Tachycardic without murmurs, gallops, or rubs. RESPIRATORY: On mechanical ventilation, Breath sounds equal bilaterally. Distant secondary to habitus. GASTROINTESTINAL: Abdomen soft, obese, non-tender, nondistended. Multiple noted areas of ecchymotic bruising secondary to subcutaneous injections MUSCULOSKELETAL: No cyanosis, or edema. Pedal edema. Wound on lateral aspect of right lower leg above lateral malleolus , dressing C/D/I. right upper extremity motor strength, inability to perform flexion, or pronation, hand medicine tech strength 2/5. Dressing around the right axilla/shoulder with RAGINI drain in place with serosanguineous drainage - 10cc since 06/08 Neuro: Drowsy, arousable. Moves all extremities with focal deficit right upper extremity as above. Date of Insertion: Apr 24, 2016 A/P Assessment and Plan ASSESSMENT Acute hypercapnic and hypoxemic respiratory failure Acute worsening of hypoxia due to lung de-recruitment 05/15/16 Healthcare associated pneumonia MDR Pseudomonas Enterococcal bacteremia Pseudomonas bacteremia Collection near right subscapularis muscle(On MRI 06/03) - abscess status post I& D on 06/07 Sepsis CHF exacerbation CO2 narcosis Tracheostomy carburetor specialist balloon damage -status post exchange with new Shiley 6.0 Proximal XLT 05/02/16 Chronic Respiratory Failure s/p Tracheostomy 4 years ago (Shiley 6.0 Proximal XLT) Probable right brachial plexus injury COPD/obesity hypoventilation syndrome Morbid Obesity BMI 67 History of pulmonary embolism 4 years ago Chronic atrial fibrillation Anxiety CHF (Echo 2013 EF 40-45%; ECHO 08/2015 showing a grossly normal systolic function) Hypertension Hypothyroidism PLAN NEURO: CO2 narcosis - resolved Critical care polyneuropathy Right upper extremity weakness 05/21-possibly secondary to nerve compression, C6 , C7 (brachial plexus) Pain Anxiety Depression -EMG/ NCV could not be completed on 05/[address] Castillo -Right upper extremity absence of triceps reflex, diminished sensation/numbness in C6-C7 dermatome level both anterior and posterior, inability for pronation, handgrip strength 2/5, lack of wrist extension/flexion. C6, C7 myotome pattern of muscle weakness.Positive shoulder abduction/adduction. -Clinically probably has right brachial plexus involvement. MRI of brachial plexus on 06/03 revealed collection involving right subscapularis muscle- s/p I & D on 06/[address] Velazquez. -Continued PT daily, with strengthening exercise (encouraged patient to participate) patient counseled on the importance. -Neurology Dr. Cheek-MRI brain C spine no acute findings. -Venous Doppler RUE 05/28-negative for DVT -Psychiatric consultation-agrees patient is depressed, On Seroquel. Continue Zoloft 50mg daily -On morphine 4 mg IV every 3 hours as needed for breakthrough pain. RESP: Acute hypercapnic and hypoxemic respiratory failure Acute lung derecruitment 05/15 with hypoxia Healthcare associated pneumonia Tracheostomy carburetor specialist balloon damage (Shiley 6.0 Proximal XLT) s/p new trach placement 05/02 Chronic Respiratory Failure s/p Tracheostomy 4 years ago COPD/obesity hypoventilation syndrome History of pulmonary embolism 4 years ago Leukocytosis-resolved Pulmonary edema - Continue with vent support keep sat >90%. Currently on CPAP. Attempt TP/TC if PS can be reduced - PSV 06/03 FiO2 45% and continue weaning as tolerated. - s/p Bronchoscopy 05/11 -follow up on BAL results-negative - DuoNeb every 6 hours scheduled, q 2 prn. - Pulmicort BID (home med), Continue Singulair 10 mg po daily CV: CHF exacerbation Pulmonary edema Paroxysmal atrial fibrillation (chronic) Hyperlipidemia -Monitor HR and BP keep MAP>65mmHg -on Cardizem 90mg QID. Bumex to 1mg daily PO -Continue Lipitor 10 g by mouth daily. Continue TriCor 40 mg by mouth daily -Therapeutic Lovenox 150 mg twice a day (held for surgery 06/07, resume when OK with Ortho) GI: Super morbid obesity with BMI of 63 -Regular diet ,thin liquids per speech recs. Refusing meals due to lack of appetite, Nausea -Liver US 06/03: Fatty liver, sludge in gall bladder, splenomegaly, no mechanical obstruction of bile duct noted. -On Pepcid 20mg BID -Multivitamin to medication regimen FEN/RENAL: Hypokalemia - Monitor renal function , I/O. - Electrolytes replacement per protocol. - Bumex 1mg PO daily ID: Healthcare associated pneumonia Sepsis New fever MDRO Cellulitis right arm-resolved Leukocytosis-resolved Enterococcal faecalis bacteremia, Pseudomonas bacteremia (06/02, 06/03) -Rocephin (05/12- 05/25) -Blood culture: aerobic and anaerobic bottles - enterococcus faecalis, pseudomonas aeruginosa 06/02, 06/03 -Urine culture 06/02 pseudomonas aeruginosa Wound culture 06/02 pseudomonas aeruginosa Sputum culture 06/02 Pseudomonas -Urine cx: Proteus Mirabilis 05/05 -Sputum cx: Providencia 05/05- resolved -Wound cx: 05/13 Proteus, Pseudomonas, Group D Enterococcus -Wound culture Pseudomonas MDR 04/27 -Sputum culture-Pseudomonas MDR- 04/27 -Bronchoscopy and re-culture 05/10 follow up on BAL results-neg to date -Follow up on sputum cx from 05/15- NGTD -Started on IV vancomycin 06/03 for GPC in blood culture - possibly from PICC which was removed after placement of Per IV on 06/03. Continues colistin nebs. On Zerbaxa for MDR pseudomonas in blood cultures. ID following. MRI brachial plexus (06/03) revealed a collection involving right subscapularis muscle near right anterior axilla , possibly an abscess. Dr. Velazquez performed drainage of collection surgically on 06/07. HEME: History of PE on chronic anticoagulation with Xarelto Anemia, iron deficiency and anemia of critical illness. -Monitor CBC, -Xarelto for PE 4 yrs ago. -Xarelto.held, On therapeutic Lovenox 150 mg twice a day - (held for surgery - to be resumed if OK with Ortho). Lovenox 30mg [id number] on 06/08 -Ferrous sulfate 300 mg/q day ENDO: Hypothyroidism -On SSI (Low scale) -Continue levothyroxine 50 mcg po daily -Free T4 1.52 PROPH: -Bilateral lower extremity SCDs. Lovenox DVT therapeutic dose to be resumed when OK with Ortho. lovenox 30mg [id number] till cleared for full anticoagulation by Ortho. GI prophylaxis- Pepcid switched to Protonix on 06/07 LINES: - PICC line RUE- No DVT on US 05/02 - removed on 06/03. Out of bed with assistance. PT out of bed with vent. OT. Discussed with ROUTER MACHINE OPERATOR. Level 3 Flory Martino MD Jun 10, 2016 09:08
--- NOTE | 2016-06-10 09:33 | PD.ORT.PN ---
Subjective Subjective Remarks pain controlled no new complaints Objective Vitals Vital Signs Date Time Temp Pulse Resp B/P Pulse Ox O2 Delivery O2 Flow Rate FiO2 06/10/16 08:14 100 40 06/10/16 07:33 100 40 06/10/16 06:00 85 06/10/16 04:01 99 40 06/10/16 04:00 40 06/10/16 04:00 98.2 80 22 145/72 99 06/10/16 04:00 84 06/10/16 02:00 85 06/10/16 00:00 87 18 131/63 98 06/10/16 00:00 86 06/10/16 00:00 40 06/09/16 23:43 96 40 06/09/16 22:11 97 40 06/09/16 22:00 89 06/09/16 20:00 81 06/09/16 20:00 97.7 81 26 136/67 100 06/09/16 20:00 40 06/09/16 19:48 100 40 06/09/16 18:00 88 06/09/16 16:00 85 06/09/16 16:00 40 06/09/16 16:00 98.2 85 22 167/72 96 06/09/16 15:23 96 40 06/09/16 14:00 87 06/09/16 12:28 95 40 06/09/16 12:00 40 06/09/16 12:00 98.0 92 20 165/72 95 06/09/16 12:00 86 06/09/16 10:00 84 I/O 06/09/16 06/09/16 06/09/16 06/10/16 06/10/16 06/10/16 07:00 15:00 23:00 07:00 15:00 23:00 Intake Total 1573 ml 1047 ml 984 ml 517 ml Output Total 533 ml 2000 ml 644 ml 350 ml Balance 1040 ml -953 ml 340 ml 167 ml Intake Oral 1050 ml 840 ml 350 ml IV Total 523 ml 207 ml 634 ml 517 ml Output Urine Total 523 ml 2000 ml 634 ml 350 ml Drainage Total 10 ml 10 ml # Bowel Movements 0 0 0 Result Diagram: 06/10/16 0459 06/10/16 0459 Objective Remarks RUE: dressing clean, dry and intact. +drain. neg sensation over median nerve, sensation over ulnar and radial nerve improved extension of fingers, nearly able to make a fist. Assessment & Plan Assessment and Plan 1) Right Shoulder I&D - POD 3 -daily dressing changes with xeroform and primapore -DC drain -continue Abx PT for ROM SYDNEY CHRIS PA-C Jun 10, 2016 09:33
[2016-06-10] MEDS: POTASSIUM CHLORIDE 20 MEQ CONTROLLED RELEASE TAB PO SCH ×2 (12:41→21:19)
[2016-06-10] MEDS ORDERED: PHARMACY ORDERED LAB XX ONE (12:45)
--- NOTE | 2016-06-10 13:26 | HHI.IDPN ---
Subjective Subjective Remarks Notes reviewed 31 y/o Morbidly obese CM, with Chronic respiratory failure, prior h/o HCAP with MDR PSAE that are resistant to Cefepime and Zosyn, as well as UTI. S/P Rx Started again with fevers 06/01, ID reconsulted Has BC roberto PSAE MDR and Enterococcus faecalis PICC felt to be the source, PICC removed Also developed RUE weakness, MRI showed complex fluid collection around brachial plexus S/P OR 06/07, could not find any C/S Has drain still in place, will be removed today Remains on the vent, but has been tolerating CPAP Not SOB Temps better BP ok Not a lot of trach secretions Mild pain in his R arm I spoke with micro: Zerbaxa sensitive; Avycaz also sensitive Repeat BC negative UC also with Enterococcus faecalis [place] changed 06/06 Has peripheral IV in place Antibiotics Colistin nebs Zerbaxa IV Vanco IV Lines PIVs Past Medical History Chronic Respiratory Failure s/p Tracheostomy 4 years ago Morbid Obesity w/ BMI 67.6 Atrial fibrillation Pulmonary embolism 4 years ago Anxiety CHF (Echo 06/07/2014 w/ EF 40-45%; ECHO 08/2015 showing a grossly normal systolic function) HTN Hypothyroidism Past Surgical History Tracheostomy Tonsillectomy Allergies: Coded Allergies: *MDRO Multi-Drug Resistant Organism (Verified Adverse Reaction, Unknown, 05/08/16) XDR Pseudomonas aeruginosa (sputum) - 09/18/15; (sputum & wound) - 04/27/16 Objective . Vital Signs Date Time Temp Pulse Resp B/P Pulse Ox O2 Delivery O2 Flow Rate FiO2 06/10/16 12:00 81 06/10/16 10:09 98 40 06/10/16 10:00 87 06/10/16 08:14 100 40 06/10/16 08:00 82 06/10/16 08:00 98.4 80 27 154/72 98 06/10/16 08:00 40 06/10/16 07:33 100 40 06/10/16 06:00 85 06/10/16 04:01 99 40 06/10/16 04:00 40 06/10/16 04:00 98.2 80 22 145/72 99 06/10/16 04:00 84 06/10/16 02:00 85 06/10/16 00:00 87 18 131/63 98 06/10/16 00:00 86 06/10/16 00:00 40 06/09/16 23:43 96 40 06/09/16 22:11 97 40 06/09/16 22:00 89 06/09/16 20:00 81 06/09/16 20:00 97.7 81 26 136/67 100 06/09/16 20:00 40 06/09/16 19:48 100 40 06/09/16 18:00 88 06/09/16 16:00 85 06/09/16 16:00 40 06/09/16 16:00 98.2 85 22 167/72 96 06/09/16 15:23 96 40 06/09/16 14:00 87 06/09/16 06/09/16 06/10/16 14:59 22:59 06:59 Intake Total 1047 ml 984 ml 517 ml Output Total 2000 ml 644 ml 350 ml Balance -953 ml 340 ml 167 ml Intake Oral 840 ml 350 ml IV Total 207 ml 634 ml 517 ml Output Urine Total 2000 ml 634 ml 350 ml Drainage Total 10 ml # Bowel Movements 0 0 . Laboratory Tests Test 06/09/16 06/10/16 08:41 04:59 White Blood Count 17.8 TH/MM3 14.3 TH/MM3 Red Blood Count 3.02 MIL/MM3 3.16 MIL/MM3 Hemoglobin 7.7 GM/DL 7.8 GM/DL Hematocrit 24.7 % 26.0 % Mean Corpuscular Volume 81.6 FL 82.2 FL Mean Corpuscular Hemoglobin 25.5 PG 24.8 PG Mean Corpuscular Hemoglobin 31.3 % 30.2 % Concent Red Cell Distribution Width 24.9 % 25.0 % Platelet Count 328 TH/MM3 343 TH/MM3 Mean Platelet Volume 6.7 FL 7.0 FL Neutrophils (%) (Auto) 79.2 % Lymphocytes (%) (Auto) 11.7 % Monocytes (%) (Auto) 7.8 % Eosinophils (%) (Auto) 0.8 % Basophils (%) (Auto) 0.5 % Neutrophils # (Auto) 11.3 TH/MM3 Lymphocytes # (Auto) 1.7 TH/MM3 Monocytes # (Auto) 1.1 TH/MM3 Eosinophils # (Auto) 0.1 TH/MM3 Basophils # (Auto) 0.1 TH/MM3 CBC Comment AUTO DIFF Differential Total Cells 100 Counted Neutrophils % (Manual) 51 % Band Neutrophils % 15 % Lymphocytes % 8 % Monocytes % 8 % Basophils % 1 % Neutrophils # (Manual) 11.9 TH/MM3 Metamyelocytes 14 % Myelocytes 3 % Differential Comment FINAL DIFF MANUAL Platelet Estimate NORMAL Platelet Morphology Comment NORMAL Basophilic Stippling FAINT Acanthocytes OCC Laboratory Tests Test 06/09/16 06/10/16 08:41 04:59 Sodium Level 140 MEQ/L 141 MEQ/L Potassium Level 3.8 MEQ/L 3.3 MEQ/L Chloride Level 98 MEQ/L 99 MEQ/L Carbon Dioxide Level 33.5 MEQ/L 31.6 MEQ/L Anion Gap 9 MEQ/L 10 MEQ/L Blood Urea Nitrogen 9 MG/DL 7 MG/DL Creatinine 0.38 MG/DL 0.32 MG/DL Estimat Glomerular Filtration 264 ML/MIN 323 ML/MIN Rate Random Glucose 94 MG/DL 78 MG/DL Calcium Level 8.3 MG/DL 8.2 MG/DL Total Bilirubin 0.5 MG/DL 0.5 MG/DL Aspartate Amino Transf 22 U/L 26 U/L (AST/SGOT) Alanine Aminotransferase 16 U/L 18 U/L (ALT/SGPT) Alkaline Phosphatase 90 U/L 84 U/L Total Protein 5.1 GM/DL 5.0 GM/DL Albumin 1.9 GM/DL 1.7 GM/DL Imaging Chest X-Ray 06/03/16 0600 Signed Impressions: Service Date/Time: Friday, June 03, 2016 03:22 - CONCLUSION: 1. Cardiomegaly with bilateral pulmonary edema. 2. Moderate right pleural effusion. Vishnu Woodward MD Liver Ultrasound 06/03/16 0000 Signed Impressions: Service Date/Time: Friday, June 03, 2016 08:10 - CONCLUSION: 1. There is some sludge in the gallbladder. This can be seen with chronic gallbladder disease. 2. Fatty infiltration of the liver which appears to be enlarged. 3. No mechanical biliary tract obstruction. 4. Splenomegaly. Lázaro Frankel MD Brachial Plexus MRI 06/03/16 0000 Signed Impressions: Service Date/Time: Friday, June 03, 2016 12:42 - CONCLUSION: There is a complex multiloculated soft tissue and cystic mass measuring approximately 5.5 x 6.0 x 7.8 cm involving the subscapularis muscle along the anterior right scapula. The differential considerations include neoplastic disease, infection and hematoma. Recommend a CT scan of the right shoulder to pre-plan for CT-guided aspiration/biopsy of this abnormality. Lázaro Frankel MD Cervical Spine MRI 05/29/16 0000 Signed Impressions: Service Date/Time: Sunday, May 29, 2016 13:51 - CONCLUSION: Limited study but appears normal. Vishnu Woodward MD Brain MRI 05/29/16 0000 Signed Impressions: Service Date/Time: Sunday, May 29, 2016 13:51 - CONCLUSION: 1. Focal chronic ischemic change in the high right frontal parietal convexity stable from previous CT scan. 2. No acute intracranial abnormality. 3. Minimal nonspecific white matter changes. Vishnu Woodward MD Upper Extremity Ultrasound 05/28/16 0000 Signed Impressions: Service Date/Time: Saturday, May 28, 2016 10:16 - CONCLUSION: 1. Negative for deep venous thrombosis. Venous line noted in cephalic, subclavian and internal jugular vein. Horacio Gupta MD Abdomen X-Ray 04/29/16 0000 Signed Impressions: Service Date/Time: Friday, April 29, 2016 07:12 - CONCLUSION: Suspect Dobbhoff tube in the distal stomach. Garcia Lujan MD Chest X-Ray 05/20/16 0000 Signed Impressions: Service Date/Time: Friday, May 20, 2016 03:21 - CONCLUSION: Persistent mid and lower lung areas of consolidation or atelectasis being worse in the right. There has been mild improvement. Garcia Lujan MD Chest X-Ray 05/16/16 0600 Signed Impressions: Service Date/Time: April 03:21 - CONCLUSION: 1. Slight improvement in bilateral airspace disease over the last day. Horacio Gupta MD Chest X-Ray 05/15/16 0600 Signed Impressions: Service Date/Time: Sunday, May 15, 2016 04:31 - CONCLUSION: 1. Slight increase in airspace disease since May 13. Differential diagnosis includes pulmonary edema. Support apparatus unchanged. Horacio Gupta MD Chest X-Ray 05/13/16 0600 Signed Impressions: Service Date/Time: Friday, May 13, 2016 03:26 - CONCLUSION: 1. Stable exam compared with May 12 with bilateral mostly basilar airspace disease. Horacio Gupta MD Chest X-Ray 05/10/16 0600 Signed Impressions: Service Date/Time: Tuesday, May 10, 2016 02:45 - CONCLUSION: Worsening right lower lobe infiltrate. Jeremiah Walton Jr., MD Chest X-Ray 05/09/16 0600 Signed Impressions: Service Date/Time: April 02:52 - CONCLUSION: No significant change has occurred. Bill Zavlaa MD Chest X-Ray 05/08/16 0600 Signed Impressions: Service Date/Time: Sunday, May 08, 2016 04:01 - CONCLUSION: No significant change has occurred. Bill Zavala MD Chest X-Ray 05/05/16 06 Signed Impressions: Service Date/Time: Thursday, May 05, 2016 01:56 - CONCLUSION: Improved aeration bilaterally particularly in the left upper lobe. Tube and catheter are stable. Amador Brock MD Chest X-Ray 05/03/16 0000 Signed Impressions: Service Date/Time: Tuesday, May 03, 2016 06:40 - CONCLUSION: Increasing bilateral diffuse pulmonary infiltrates compared to the prior study. Lázaro Frankel MD Upper Extremity Ultrasound 05/02/16 0000 Signed Impressions: Service Date/Time: April 20:51 - CONCLUSION: No DVT. Garcia Lujan MD Abdomen X-Ray 04/29/16 0000 Signed Impressions: Service Date/Time: Friday, April 29, 2016 07:12 - CONCLUSION: Suspect Dobbhoff tube in the distal stomach. Garcia Lujan MD Physical Exam GENERAL: Awake and alert, on CPAP, comfortable SKIN: Warm and moist. No generalized rash. HEENT: [place] conjunctivae. No scleral icterus. Moist mucosa. NECK: Short and obese, has trach, site ok. Supple, no meningeal signs. CARDIOVASCULAR: Regular rate and rhythm. Distant heart sounds. RESPIRATORY: Decreased BS bilaterally. GASTROINTESTINAL: Abdomen soft, morbidly obese, not tender, not distended. MUSCULOSKELETAL: Extremities without clubbing, cyanosis. Has mild pitting edema. Incision RUE ok, drain in place, with some bloody drainage, no redness NEUROLOGICAL: Awake and following, responding : [place] in place, urine looks clear Assessment & Plan Remarks IMPRESSION E.faecalis and Pseudomonas bacteremia: from PICC line site with fevers: Central line associated blood stream infection(CLABSI). - PICC removed - repeat BC negative Scapular areas fluid collection, abscess per ortho, no C/S sent MDR PSAE PNA, S/P Rx PSAE in urine: likely colonization or translocation of bacteria from PSAE bacteremia. - now with Enterococcus in UC Morbid obesity Sleep apnea Hx PE Anorexia RECOMMENDATION Continue Vanco IV (target trough 15-20) Continue Zerbaxa IV (ASP: has known MDR PSAE and now has bacteremia. Will follow cultures and deescalate) Continue Colistin nebs. - Will only suppress organism with Colistin given prior MDR and clinically stable at this point. Follow cultures Monitor progress Weaning per CCM as tolerated D/W Dana Rollins MD Jun 10, 2016 13:26
--- NOTE | 2016-06-10 14:59 | HHI.FPPN ---
Subjective Remarks Mr. Fortune was afebrile with stable vital signs overnight. Mr. Fortune reported postprandial emesis this morning. Patient states he is breathing well and that he feels that physical therapy is going well. Patient has right arm pain which he states is mild. Discussed that patient's nurse; patient had several episodes of small volume of emesis. Per review of EMR, patient had adequate urine output overnight. 10 mL of right shoulder wound drainage overnight. ( Cody Kelly MD R2) Objective Vitals Vital Signs Date Time Temp Pulse Resp B/P Pulse Ox O2 Delivery O2 Flow Rate FiO2 06/10/16 14:00 97 06/10/16 12:00 81 06/10/16 12:00 98.7 82 18 142/67 100 06/10/16 12:00 40 06/10/16 10:09 98 40 06/10/16 10:00 87 06/10/16 08:14 100 40 06/10/16 08:00 82 06/10/16 08:00 98.4 80 27 154/72 98 06/10/16 08:00 40 06/10/16 07:33 100 40 06/10/16 06:00 85 06/10/16 04:01 99 40 06/10/16 04:00 40 06/10/16 04:00 98.2 80 22 145/72 99 06/10/16 04:00 84 06/10/16 02:00 85 06/10/16 00:00 87 18 131/63 98 06/10/16 00:00 86 06/10/16 00:00 40 06/09/16 23:43 96 40 06/09/16 22:11 97 40 06/09/16 22:00 89 06/09/16 20:00 81 06/09/16 20:00 97.7 81 26 136/67 100 06/09/16 20:00 40 06/09/16 19:48 100 40 06/09/16 18:00 88 06/09/16 16:00 85 06/09/16 16:00 40 06/09/16 16:00 98.2 85 22 167/72 96 06/09/16 15:23 96 40 I/O 06/09/16 06/09/16 06/09/16 06/10/16 06/10/16 06/10/16 07:00 15:00 23:00 07:00 15:00 23:00 Intake Total 1573 ml 1047 ml 984 ml 517 ml Output Total 533 ml 2000 ml 644 ml 350 ml Balance 1040 ml -953 ml 340 ml 167 ml Intake Oral 1050 ml 840 ml 350 ml IV Total 523 ml 207 ml 634 ml 517 ml Output Urine Total 523 ml 2000 ml 634 ml 350 ml Drainage Total 10 ml 10 ml # Bowel Movements 0 0 0 (Cody Kelly MD R2) Result Diagram: 06/10/169 06/10/16458 Imaging Last Impressions Chest X-Ray 06/03/16 0600 Signed Impressions: Service Date/Time: Friday, June 03, 2016 03:22 - CONCLUSION: 1. Cardiomegaly with bilateral pulmonary edema. 2. Moderate right pleural effusion. Vishnu Woodward MD Liver Ultrasound 06/03/16 0000 Signed Impressions: Service Date/Time: Friday, June 03, 2016 08:10 - CONCLUSION: 1. There is some sludge in the gallbladder. This can be seen with chronic gallbladder disease. 2. Fatty infiltration of the liver which appears to be enlarged. 3. No mechanical biliary tract obstruction. 4. Splenomegaly. Lázaro Frankel MD Brachial Plexus MRI 06/03/16 0000 Signed Impressions: Service Date/Time: Friday, June 03, 2016 12:42 - CONCLUSION: There is a complex multiloculated soft tissue and cystic mass measuring approximately 5.5 x 6.0 x 7.8 cm involving the subscapularis muscle along the anterior right scapula. The differential considerations include neoplastic disease, infection and hematoma. Recommend a CT scan of the right shoulder to pre-plan for CT-guided aspiration/biopsy of this abnormality. Lázaro Frankel MD Cervical Spine MRI 05/29/16 0000 Signed Impressions: Service Date/Time: Sunday, May 29, 2016 13:51 - CONCLUSION: Limited study but appears normal. Vishnu Woodward MD Brain MRI 05/29/16 0000 Signed Impressions: Service Date/Time: Sunday, May 29, 2016 13:51 - CONCLUSION: 1. Focal chronic ischemic change in the high right frontal parietal convexity stable from previous CT scan. 2. No acute intracranial abnormality. 3. Minimal nonspecific white matter changes. Vishnu Woodward MD Upper Extremity Ultrasound 05/28/16 0000 Signed Impressions: Service Date/Time: Saturday, May 28, 2016 10:16 - CONCLUSION: 1. Negative for deep venous thrombosis. Venous line noted in cephalic, subclavian and internal jugular vein. Horacio Gupta MD Abdomen X-Ray 04/29/16 0000 Signed Impressions: Service Date/Time: Friday, April 29, 2016 07:12 - CONCLUSION: Suspect Dobbhoff tube in the distal stomach. Garcia Lujan MD Objective Remarks GEN: Morbidly obese male in NAD. DERM: Warm and dry. Nails bitten down. Yellow ecchymosis periumbilical region and R pannus, healing. No erythema or skin breakdown appreciated. Numerous skin folds 2/2 habitus. Bandage R lateral malleolus c/d/i. HEENT: Tracheotomy site c/d/i. Poor dentition. PERRL. EOMI. CV: Distant heart sounds. RRR. Normal peripheral perfusion. RESP: T-piece in place. Transmitted upper respiratory sounds. No wheezing GI: Abdomen soft, obese, non-tender. +BS MSK: RUE drain in place- minimal bloody drainage. LE edema 2+ bilaterally. No calf tenderness NEURO: Grossly normal cranial nerves. Can move fingers RUE, but unable to move against gravity. Patient seems to have very diminished flexion at elbow and extension at elbow was relatively stronger; consistent with prior exam Procedures 04/24- Started ventilation 05/02- Emergency Trach Exchange 06/03- PICC line removed 06/07- Debridement of RUE abscess (Dr. Velazquez), RUE drain 06/10- RUE drain removal (Cody Kelly MD R2) Date of Insertion: Apr 24, 2016 (Cody Kelly MD R2) A/P Assessment and Plan 31y male w chronic respiratory failure s/p tracheostomy 4y ago and [place]wickian hypoventilation syndrome (BMI 60+) presents with [id number] hypoxia, tracheostomy seal leak, and PNA. Discharge Planning Uncertain, pending weaning from mechanical ventilation with stable clinical status and workup of R shoulder mass. Ideally, return to long-term rehab facility. If qualifies, could consider terminal operations supervisor vent facility depending on status. Orthopedics, Critical care, ID, Psych, Neurology, IR, PT/OT, Gen Surgery, Rehabilitation consulted. Appreciate recommendations. (Cody Kelly MD R2) Attending Attestation Pt. examined and case discussed with resident physician I have read the above note and agree with the assessment/plan as discussed with me I was involved in all medical decision making for this patient Lázaro Rogers MD (Lázaro Rogers MD) Problem List: (1) Mass of soft tissue of right upper extremity Status: Acute Plan: - POD3 debridement subscapularis abscess 06/07/[address] Velazquez - BENITO drain in place. Minimal bloody drainage; 10ml overnight; d/c'd -daily dressing changes with xeroform and primapore -continue Abx - Daily PT/OT, as tolerated. Goal: RUE strength and self-feeding -PT today was limited by emesis Impression: Multiloculated soft tissue and cystic mass 6 x 6 x 8cm involving R subscapularis muscle causing weakness RUE. ICT-guided biopsy not feasible per IR. Differential includes abscess vs neoplasm vs hematoma. Prior to hospitalization, able to transfer to wheelchair and feed self. Now unable to transfer or feed self. Initially thought to be C6/C7 neuropathy secondary morbid obesity and positioning, however MRI brachial plexus identified soft tissue mass. DVT, L hemispheric pathology, and seizure r/o w imaging (see below) . EMG scheduled, not performed as pt de-saturated to 80s on attempt. Imaging: - US negative for DVT (05/28) - MRI brain (04/28) no acute intracranial process - MRI C-spine (05/29): grossly wnl - EEG (05/29): diffuse mild encephalopathy vs normal Stage 2 sleep - MRI brachial plexus (06/03): "Complex multiloculated soft tissue and cystic mass 5.5 x 6 x 7.8 cm involving subscapularis muscle along anterior R scapula (2) Bacteremia Status: Acute Plan: - Decreasing leukocytosis 17.8-> 14.3. Afebrile. - Appreciate ID recommendations - Vancomycin 2000mg IV daily goal trough 15-20, (06/03 -- ) - Zerbaxa IV q8h (06/05-- ) - Colistin 75mg q8h NEB - Acetaminophen 325mg PRN fever Impression: Positive blood, sputum, urine cultures (06/03) for Pseudomonas aeruginosa and Enterococcus faecalis. Tmax 101.5F. Thought sepsis via PICC infection as BCx PIV negative while BCx PICC grew pathogens. Repeat blood cultures 06/06 were negative, while UCx grew Group D Enterococcus. Ddx bacteremia vs benign colonization vs viremia. Serial CXRs grossly unchanged: cardiomegaly w b/l pulm edema and R pleural effusion. Abx History Zosyn 4.5gm IV q6h (04/24 - 04/29) Levaquin 750mg IV q24h (04/24-04/30) Zerbaxa 1.5 g IV q8h (04/29 - 05/07) Vancomycin IV (04/24 - 05/06) Ceftriaxone IV (05/07 - 05/25) Linezolid 600 mg PO BID (05/06 - 05/13) Vancomycin (06/03-- ) Zosyn 3.375 q6h (06/04- 06/05) Zerbaxa (ceftozolane/tazobactam) (06/05 --) (3) Paroxysmal a-fib Status: Chronic Plan: - Lovenox 30mg IV q12h, per critical care - Increase to Lovenox 60mg IV BID 06/10. If well tolerated, continue to increase to therapeutic in several days. Impression: Therapeutic Lovenox held for surgery 06/07. DVT prophylaxis re- initiated 06/08. Will return to therapeutic Lovenox per CC and orthopedic recommendations. Held home Xarelto. EKG 05/17: sinus rhythm (4) On mechanically assisted ventilation Status: Acute Plan: - CPAP (PS 12, PEEP 8, FiO2 40%) via trach - Pulmicort BID REYES - Duonebs q2h PRN - Singulair 10mg daily Impression: Acute on chronic hypoxemic respiratory failure secondary to HCAP ( resolved) and tracheostomy leak (s/p exchange 05/02). Baseline 6L NC at rehab. Mechanical ventilation initiated 04/24. Solumedrol (05/10-06/03) (5) CHF (congestive heart failure) Status: Chronic Plan: - Bumex 1mg PO daily + 40 KCl BID - Monitor I/Os, monitor renal function, peripheral edema Impression: Tolerating decreased Bumex well. Suspected HF with poor EF, though unable to confirm via ECHO (04/25/16) due to poor imaging. Unknown EF. BNP was 400, decreasing. (6) Hypertension Status: Chronic Plan: - Cardiazem 90mg QID - Labetalol 10mg IV PRN SBP 160+ (7) Nausea Status: Chronic Plan: - Zofran 4mg PO q6h PRN - Compazine 5mg PO q6h PRN - Protonix 20mg BID Impression: Chronic. Ddx: GERD vs psychosomatic vs impaired gastric emptying vs medication side effect. (8) Stable medical conditions Status: Chronic Plan: HYPERLIPIDEMIA -Atorvastatin 10mg daily and Tricor 48mg daily NORMOCYTIC ANEMIA - Ferrous sulfate 325mg PO daily - Multivitamin 1 tab PO daily MDD: - Pt reports stable mood; some anhedonia suspected. Previously, refusing meals , shower, PT - Sertraline 100 mg PO daily - Seroquel 100mg HS INSOMNIA -Zolpidem 5mg HS PRN GOUT -Allopurinol 300mg daily HYPOTHYROIDISM 08/2015- TSH low, free T4 grossly wnl (05/27/16) -Synthroid 50 mcg PO daily FUNGAL INFECTION -Nystatin powder and miconazole creme to skin folds MORBID OBESITY WITH BMI 60-69 -see above plan for mechanical ventilation RESOLVED CONDITIONS THIS HOSPITAL VISIT - Cellulitis of Chest Wall: completed course linezolid (05/06-05/13), per ID recs - Yeast UTI: completed course Diflucan. UCx 05/01: Dionne albicans. Repeat UCx 05/05: Proteus Mirabilis - HCAP: s/p multiple abx (9) Nutrition, metabolism, and development symptoms Status: Acute Plan: FEN: Fluids: PO (Limited to 1.5L/day PO) Electrolytes: 40KCl BID. Chronically hypokalemic, replete per protocol Nutrition: 2Kcal heart healthy diet. Transitioned to oral feeds (05/29). Needs help with feeding. PPX: GI ppx: Protonix 20mg BID DVT ppx: Lovenox 30mg BID Pain: Oxycodone 7.5/325 q4h PRN Bowels: Senna 1 tab HS PRN Wt: Admission: 480 lbs. Wt 12/ ~445 lbs. Continue monitor, encourage, modify/restrict diet, as appropriate (Cody Kelly MD R2) Problem Qualifiers (1) CHF (congestive heart failure): Qualified Code: I50.9 - Acute on chronic congestive heart failure, unspecified congestive heart failure type (2) Hypertension: Qualified Code: I10 - Essential hypertension Cody Kelly MD R2 Jun 10, 2016 14:59 Lázaro Rogers MD Jun 10, 2016 19:42
[2016-06-10] MEDS: QUEtiapine FUMARATE 100 MG TAB PO SCH (21:20)
[2016-06-10] MEDS: ZOLPIDEM TARTRATE 5 MG TAB PO PRN (21:23)
[2016-06-11] VITALS (19 sets, daily range): BP systolic 137–147; BP diastolic 67–87; PULSE 76–93; RESP 18–41; TEMP 97.9–98.7; O2SAT 85–100
[2016-06-11] MEDS: CEFTOLOZANE-TAZOBACTAM INJ 1,500 MG in SODIUM CHLORIDE 0.9% INJ 100 ML IV SCH ×3 (03:00→21:07)
[2016-06-11] MEDS: LEVOTHYROXINE SODIUM 50 MCG TAB PO SCH (05:52)
[2016-06-11] MEDS ORDERED: PHARMACY ORDERED LAB XX ONE (06:00)
--- NOTE | 2016-06-11 06:51 | HHI.CCPN ---
Subjective Remarks/Hospital Course 31 year old morbidly obese (BMI 68) male with chronic respiratory failure s/p tracheostomy 4 years ago, atrial fibrillation and pulmonary embolism on Xarelto , COPD, CHF and h/o HTN. He presented from [facility] with low oxygen saturation apparently his oxygen saturation was 82% on RA. He was placed back on 6L of oxygen via his trach mask and given a breathing treatment, initially improved however he started drifting back to low 80s again. Chest x-ray showed bibasilar infiltrates and pulmonary edema. Patient was admitted to the [facility] and was started on IV steroids IV vancomycin and Zosyn and Levaquin for healthcare associated pneumonia. After starting ACV, patient was more awake but there was a significant amount of air leak around his tracheostomy. Patient has had a Shiley 6.0 Proximal XLT, but the helicopter pilot instructor balloon had been cut off. 05/02 the patient became acutely hypoxemic with a large cuff leak, underwent emergency trach exchange at bedside by Dr. Macias. FiO2 65% PEEP 14 05/13 Patient is on ventilator via trach, on Fentanyl infusion however he is awake and alert. On PRVC with FIO2 40%. Afebrile. 05/14 No acute events overnight. Tmax 99.8. Patient is awake, alert on ventilator via trach still requiring increase O2. On PRVC with PEEP: 10 and FIO2 70%. 05/15 patient acutely desaturated after he was found. Saturation went down to 70% on 100% oxygen. Bag and mask ventilation carried out, with eventual improvement on oxygen saturation to 85%. Patient was placed on PC/AC mode of ventilation, with PEEP of 15 and instructed to pressure of 30. Eventually oxygen saturation improved to 95%. Lasix him today as the chest x-ray from today shows increasing bilateral infiltrate and pulmonary edema. Also sputum culture will be sent 05/16 Patient is on Fentanyl and Diprivan infusion but awake and alert. Afebrile. On PC/AC with PEEP:15, IP: 22, IT:1.3 and FIO2 50% 05/17 Patient is off Diprivan and remains on Fentanyl infusion for sedation. On PC/AC with PEEP: down 10 and FIO2 40%. Afebrile. 05/18 Patient remains on ventilator via trach on PC/AC with PEEP:12, FIO2 40%, IP:22, IT:1.0. On Fentanyl infusion 05/19 No acute events overnight. On Fentanyl infusion but awake and alert. Afebrile. 05/20 Tolerating C Pap 17/12 FIO2 40, sats 98%. RSBI in 20s, appears can be weaned further. Afebrile. Speech therapy evaluated and ok for regular diet. Starting with full liquid. 05/21 Will wean PSV to 15/10. Tolerated full liquids, will advance to regular diet per speech recs. Subjective: 05/22 On PSV 15/10 FIO2 40 with sats 92%. Smiling today. Glad to be eating regular food again. 05/23 No acute events overnight. Remains on CPAP with PS 15, PEEP:10 and FIO2 40 %. Afebrile. Off Fentanyl drip. Afebrile. Awake and alert. 05/24 Patient is on CPAP 06/06 with 40% FIO2. Afebrile. Awake and alert, on no sedation. 05/25 No acute events overnight. Patient was placed back on PC/AC overnight. Tolerated CPAP trials during day yesterday. Awake and alert. On no drips. Afebrile. 05/26 Afebrile. Tmax 98.6. Today the patient complained of nausea requiring Zofran. The patient has a lack of an appetite, with noted hypoglycemia early this a.m. blood glucose level 69. Patient tolerating CPAP well greater than 12 hours in the last 24 hours. 05/27 The patient tolerated CPAP for over 36 hours, O2 sat a knee 94% on FIO2 40 %. The patient had an increase in appetite. The patient continues on full liquid diet. 05/28 The patient declined physical therapy treatment, yesterday and also overnight declined to be moved by nursing staff. The patient refused dinner last evening, of note patient was reevaluated by speech therapy and can consume a heart healthy diet with thin liquids. The patient continues on physical therapy for strengthening exercises of all extremities specifically noted right upper extremity continues to be weak with gross fibrillations noted in hand and forearm. 05/29 Afebrile. No change in right upper extremity weakness. The patient was seen by neurology yesterday plan for MRI today if possible in hospital MRI, and EMG studies. No complaints overnight. Patient continues to refuse to have activities performed, movement in bed. The patient appears to be depressed, psychiatry consulted. 05/30: Patient alert awake on CPAP. Following commands. Psych agrees the patient is depressed. MRI brain no acute findings 05/31: Awake alert. on PS 15/8. EMG could not be completed due to patient becoming anxious. Otherwise no acute events reported overnight 06/01: Remains PS from 15/8. Right upper extremity weakness persists. EMG to be repeated on Friday. Will need MRI of the brachial plexus. Chest x-ray is unchanged 06/02: States that "not feeling well". Febrile to 101.5. White count increasing but still within the normal range. Pancultured. We'll request ID reevaluation. 06/03: Resting in bed on C Pap/pressure support via tracheostomy. One out of 2 sets of blood cultures sent on 06/02 positive for gram-positive cocci. 06/04: Resting in bed on mechanical ventilation via tracheostomy. Afebrile overnight. MRI brachial plexus (06/03) revealed a collection near the right subscapularis muscle, possibly an abscess. Discussed with ID, orthopedics Dr. Velazquez consulted. I discussed the case with Dr. Velazquez this morning who feels this is probably an abscess however would be difficult to access surgically and he plans to set up percutaneous drainage by interventional radiology. 06/05: Resting in bed on mechanical ventilation via tracheostomy. Remains afebrile. Reportedly IR cannot do percutaneous drainage of collection involving right subscapularis muscle. 06/06: Resting in bed on mechanical ventilation via tracheostomy. Can actually speak around the trach. Remains afebrile. Dr. Velazquez evaluated patient and is scheduling surgery for drainage of fluid collection involving the right subscapularis muscle. 06/07: Resting in bed on mechanical ventilation via tracheostomy. Awaiting surgery today. 06/08: Status post I&D of collection near right shoulder/subscapularis on 06/[address] Velazquez. This morning patient is awake and alert complained of some pain at the surgical site. Remains on mechanical ventilation on C Pap/pressure support. 06/09: Sleeping, arousable. On mechanical ventilation with C Pap/pressure support overnight. Labs pending 06/10 No acute events overnight. On CPAP with PS 12, PEEP: 8, FIO2 40%. Afebrile. 06/11 Patient remains on CPAP with PS 10, PEEP: 8 and FIO2 40%. Afebrile. Objective Vital Signs Date Time Temp Pulse Resp B/P Pulse Ox O2 Delivery O2 Flow Rate FiO2 06/11/16 06:00 93 06/11/16 04:22 100 40 06/11/16 04:00 98.5 18 141/70 Intake and Output 06/10/16 06/10/16 06/11/16 08:00 16:00 00:00 Intake Total 517 ml 777 ml 1012 ml Output Total 350 ml 2100 ml 550 ml Balance 167 ml -1323 ml 462 ml Result Diagram: 06/10/16 0459 06/10/16 0459 Other Results Laboratory Tests Test 06/10/16 12:45 Vancomycin Level Trough 25.6 MCG/ML Imaging Last Impressions Chest X-Ray 06/03/16 0600 Signed Impressions: Service Date/Time: Friday, June 03, 2016 03:22 - CONCLUSION: 1. Cardiomegaly with bilateral pulmonary edema. 2. Moderate right pleural effusion. Vishnu Woodward MD Liver Ultrasound 06/03/16 0000 Signed Impressions: Service Date/Time: Friday, June 03, 2016 08:10 - CONCLUSION: 1. There is some sludge in the gallbladder. This can be seen with chronic gallbladder disease. 2. Fatty infiltration of the liver which appears to be enlarged. 3. No mechanical biliary tract obstruction. 4. Splenomegaly. Lázaro Frankel MD Brachial Plexus MRI 06/03/16 0000 Signed Impressions: Service Date/Time: Friday, June 03, 2016 12:42 - CONCLUSION: There is a complex multiloculated soft tissue and cystic mass measuring approximately 5.5 x 6.0 x 7.8 cm involving the subscapularis muscle along the anterior right scapula. The differential considerations include neoplastic disease, infection and hematoma. Recommend a CT scan of the right shoulder to pre-plan for CT-guided aspiration/biopsy of this abnormality. Lázaro Frankel MD Cervical Spine MRI 05/29/16 0000 Signed Impressions: Service Date/Time: Sunday, May 29, 2016 13:51 - CONCLUSION: Limited study but appears normal. Vishnu Woodward MD Brain MRI 05/29/16 0000 Signed Impressions: Service Date/Time: Sunday, May 29, 2016 13:51 - CONCLUSION: 1. Focal chronic ischemic change in the high right frontal parietal convexity stable from previous CT scan. 2. No acute intracranial abnormality. 3. Minimal nonspecific white matter changes. Vishnu Woodward MD Upper Extremity Ultrasound 05/28/16 0000 Signed Impressions: Service Date/Time: Saturday, May 28, 2016 10:16 - CONCLUSION: 1. Negative for deep venous thrombosis. Venous line noted in cephalic, subclavian and internal jugular vein. Horacio Gupta MD Abdomen X-Ray 04/29/16 0000 Signed Impressions: Service Date/Time: Friday, April 29, 2016 07:12 - CONCLUSION: Suspect Dobbhoff tube in the distal stomach. Garcia Lujan MD Objective Remarks GENERAL: Patient is 31yo on ventilator via trach, awakens and follows commands. Super Morbidly obese. SKIN: Warm and dry. HEAD: Normocephalic. EYES: No scleral icterus. No injection or drainage. NECK: Supple, trachea midline. Shiley 6.0 Proximal XLT, (new trach placed ) CARDIOVASCULAR:Tachycardic without murmurs, gallops, or rubs. RESPIRATORY: On mechanical ventilation, Breath sounds equal bilaterally. Distant secondary to habitus. GASTROINTESTINAL: Abdomen soft, obese, non-tender, nondistended. Multiple noted areas of ecchymotic bruising secondary to subcutaneous injections MUSCULOSKELETAL: No cyanosis, or edema. Pedal edema. Wound on lateral aspect of right lower leg above lateral malleolus , dressing C/D/I. right upper extremity motor strength, inability to perform flexion, or pronation, hand statistics tutor strength 2/5. Dressing around the right axilla/shoulder with RAGINI drain in place with serosanguineous drainage - 10cc since 06/08 Neuro: Drowsy, arousable. Moves all extremities with focal deficit right upper extremity as above. Date of Insertion: Apr 24, 2016 A/P Assessment and Plan ASSESSMENT Acute hypercapnic and hypoxemic respiratory failure Acute worsening of hypoxia due to lung de-recruitment 05/15/16 Healthcare associated pneumonia MDR Pseudomonas Enterococcal bacteremia Pseudomonas bacteremia Collection near right subscapularis muscle(On MRI 06/03) - abscess status post I& D on 06/07 Sepsis CHF exacerbation CO2 narcosis Tracheostomy helicopter pilot instructor balloon damage -status post exchange with new Shiley 6.0 Proximal XLT 05/02/16 Chronic Respiratory Failure s/p Tracheostomy 4 years ago (Shiley 6.0 Proximal XLT) Probable right brachial plexus injury COPD/obesity hypoventilation syndrome Morbid Obesity BMI 67 History of pulmonary embolism 4 years ago Chronic atrial fibrillation Anxiety CHF (Echo 2013 EF 40-45%; ECHO 08/2015 showing a grossly normal systolic function) Hypertension Hypothyroidism PLAN NEURO: CO2 narcosis - resolved Critical care polyneuropathy Right upper extremity weakness 05/21-possibly secondary to nerve compression, C6 , C7 (brachial plexus) Pain Anxiety Depression -EMG/ NCV could not be completed on 05/[address] Castillo -Right upper extremity absence of triceps reflex, diminished sensation/numbness in C6-C7 dermatome level both anterior and posterior, inability for pronation, handgrip strength /, lack of wrist extension/flexion. C6, C7 myotome pattern of muscle weakness.Positive shoulder abduction/adduction. -Clinically probably has right brachial plexus involvement. MRI of brachial plexus on 06/03 revealed collection involving right subscapularis muscle- s/p I & D on 06/[address] Velazquez. -Continued PT daily, with strengthening exercise (encouraged patient to participate) patient counseled on the importance. -Neurology Dr. Cheek-MRI brain C spine no acute findings. -Venous Doppler RUE 05/28-negative for DVT -Psychiatric consultation-agrees patient is depressed, On Seroquel. Continue Zoloft 50mg daily -On morphine 4 mg IV every 3 hours as needed for breakthrough pain. RESP: Acute hypercapnic and hypoxemic respiratory failure Acute lung derecruitment 05/15 with hypoxia Healthcare associated pneumonia Tracheostomy helicopter pilot instructor balloon damage (Shiley 6.0 Proximal XLT) s/p new trach placement 05/02 Chronic Respiratory Failure s/p Tracheostomy 4 years ago COPD/obesity hypoventilation syndrome History of pulmonary embolism 4 years ago Leukocytosis-resolved Pulmonary edema - Continue with vent support keep sat >90%. Currently on CPAP. Attempt TP/TC as beatriz - Pulm toilet, trach care - s/p Bronchoscopy 05/11 -follow up on BAL results-negative - DuoNeb every 6 hours scheduled, q 2 prn. - Pulmicort BID (home med), Continue Singulair 10 mg po daily CV: CHF exacerbation Pulmonary edema Paroxysmal atrial fibrillation (chronic) Hyperlipidemia -Monitor HR and BP keep MAP>65mmHg -on Cardizem 90mg QID. Bumex to 1mg daily PO -Continue Lipitor 10 g by mouth daily. Continue TriCor 40 mg by mouth daily -Therapeutic Lovenox 150 mg twice a day (held for surgery 06/07, resume when OK with Ortho) GI: Super morbid obesity with BMI of 63 -Regular diet ,thin liquids per speech recs. Refusing meals due to lack of appetite, Nausea -Liver US 06/03: Fatty liver, sludge in gall bladder, splenomegaly, no mechanical obstruction of bile duct noted. -On Pepcid 20mg BID -Multivitamin to medication regimen FEN/RENAL: - Monitor renal function , I/O. - Electrolytes replacement per protocol. - Bumex 1mg PO daily ID: Healthcare associated pneumonia Sepsis New fever MDRO Cellulitis right arm-resolved Leukocytosis-trending down Enterococcal faecalis bacteremia, Pseudomonas bacteremia (06/02, 06/03) -Rocephin (05/12- 05/25) -Blood culture: aerobic and anaerobic bottles - enterococcus faecalis, pseudomonas aeruginosa 06/02, 06/03 -Urine culture 06/02 pseudomonas aeruginosa Wound culture 06/02 pseudomonas aeruginosa Sputum culture 06/02 Pseudomonas -Urine cx: Proteus Mirabilis 05/05 -Sputum cx: Providencia 05/05- resolved -Wound cx: 05/13 Proteus, Pseudomonas, Group D Enterococcus -Wound culture Pseudomonas MDR 04/27 -Sputum culture-Pseudomonas MDR- 04/27 -Bronchoscopy and re-culture 05/10 follow up on BAL results-neg to date -Follow up on sputum cx from 05/15- NGTD -Continue abx per ID ( IV vancomycin, colistin nebs, Zerbaxa for MDR pseudomonas in blood cultures) MRI brachial plexus (06/03) revealed a collection involving right subscapularis muscle near right anterior axilla , possibly an abscess. Dr. Velazquez performed drainage of collection surgically on 06/07. HEME: History of PE on chronic anticoagulation with Xarelto Anemia, iron deficiency and anemia of critical illness. -Monitor CBC, -Xarelto for PE 4 yrs ago. -Xarelto.held, On therapeutic Lovenox 150 mg twice a day - (held for surgery - to be resumed if OK with Ortho). Lovenox 30mg [id number] on 06/08 -Ferrous sulfate 300 mg/q day ENDO: Hypothyroidism -On SSI (Low scale) -Continue levothyroxine 50 mcg po daily -Free T4 1.52 PROPH: -Bilateral lower extremity SCDs. Lovenox DVT therapeutic dose to be resumed when OK with Ortho. lovenox 30mg [id number] till cleared for full anticoagulation by Ortho. GI prophylaxis- Pepcid switched to Protonix on 06/07 LINES: - PICC line RUE- No DVT on US 05/02 - removed on 06/03. Out of bed with assistance. PT out of bed with vent. OT. Discussed with [employer]. Level 3 Flory Martino MD Jun 11, 2016 06:51
[2016-06-11 07:01] LABS: AUTOMATED NEUTROPHIL # 9.2 TH/MM3 (1.8-7.7); BASOPHIL # 0.1 TH/MM3 (0-0.2); BASOPHIL % 0.8 % (0.0-2.0); EOSINOPHIL # 0.1 TH/MM3 (0-0.4); EOSINOPHIL % 1.1 % (0.0-4.0); HEMATOCRIT 26.8 % (39.0-51.0); LYMPH % 14.6 % (9.0-44.0); LYMPHOCYTE # 1.8 TH/MM3 (1.0-4.8); MEAN CELL VOLUME 82.3 FL (80.0-100.0); MEAN CORPUSCULAR HEMOGLOBIN 24.8 PG (27.0-34.0); MEAN CORPUSCULAR HGB CONC 30.2 % (32.0-36.0); MONO % 8.2 % (0.0-8.0); NEUT % 75.3 % (16.0-70.0); PLATELET COUNT 324 TH/MM3 (150-450); RED BLOOD COUNT 3.25 MIL/MM3 (4.50-5.90); RED CELL DISTRIBUTION WIDTH 24.6 % (11.6-17.2); WHITE BLOOD COUNT 12.2 TH/MM3 (4.0-11.0)
[2016-06-11 07:03] LABS: HEMO FLAGS AUTO DIFF
[2016-06-11 07:05] LABS: BICARBONATE 34.2 MEQ/L (21.0-32.0); MAGNESIUM 1.6 MG/DL (1.5-2.5); POTASSIUM 3.3 MEQ/L (3.5-5.1)
[2016-06-11 07:57] LABS: BANDS 8 % (0-6); METAMYELOCYTES 1 % (0-1); MYELOCYTES 11 % (0-0); NEUTROPHIL # MANUAL DIFF 10.7 TH/MM3 (1.8-7.7); POLYS (SEG NEUTROPHILS) 68 % (16-70); WBC DIFF SAMPLE 100
[2016-06-11 07:58] LABS: POLYCHROMASIA 2.4 % (0.0-1.9)
[2016-06-11 07:59] LABS: PLATELET ESTIMATE SMEAR NORMAL (NORMAL); PLATELET MORPHOLOGY NORMAL (NORMAL); SCAN/DIFF FINAL DIFF MANUAL
[2016-06-11] MEDS: RESP: BUDESONIDE 0.5 MG/2 ML NEB NEB SCH ×2 (08:05→19:45)
--- NOTE | 2016-06-11 08:19 | HHI.FPPN ---
Subjective Remarks POD4 debridement RUE abscess on 06/07. No acute events overnight. Afebrile. Borderline hypertensive to 145/70. Tolerating CPAP via trach- PEEP8 FIO2 40%. O2 saturation 94-97% Respirations of 41 at midnight inaccurate measuring by vent, per nursing. Recorded as high as 66 resp/min overnight while patient breathing unlabored in room. No desats. Feels "same" as yesterday. Nausea and abd pain primary concern. Describes dull pain, worse after meals, in morning and evening. We briefly discussed biopsy results that found blood clots and fatty tissue, likely a benign mass. Denies fevers/chills, CP/palpitations, worsening SOB, calf pain. Urinating via catheter. +BM. OOB with assistance. Bandage R lateral malleolus, Bandage RUE, and trach c/d/i. SCD L calf. (Holley Baires MD R1) Objective Vitals Vital Signs Date Time Temp Pulse Resp B/P Pulse Ox O2 Delivery O2 Flow Rate FiO2 06/11/16 08:07 100 40 06/11/16 06:00 93 06/11/16 04:22 100 40 06/11/16 04:00 81 06/11/16 04:00 40 06/11/16 04:00 98.5 81 18 141/70 100 06/11/16 02:00 81 06/11/16 01:35 99 40 06/11/16 00:00 76 06/11/16 00:00 97.9 76 41 141/72 96 06/11/16 00:00 40 06/10/16 22:00 78 06/10/16 20:00 98.5 80 19 140/67 100 06/10/16 20:00 80 06/10/16 20:00 40 06/10/16 19:49 100 40 06/10/16 18:00 86 06/10/16 18:00 98.5 86 21 146/68 98 06/10/16 18:00 40 06/10/16 16:49 100 40 06/10/16 14:00 97 06/10/16 12:00 81 06/10/16 12:00 98.7 82 18 142/67 100 06/10/16 12:00 40 06/10/16 10:09 98 40 06/10/16 10:00 87 I/O 06/10/16 06/10/16 06/10/16 06/11/16 06/11/16 06/11/16 06:59 14:59 22:59 06:59 14:59 22:59 Intake Total 517 ml 777 ml 1012 ml 449 ml Output Total 350 ml 2100 ml 550 ml 325 ml Balance 167 ml -1323 ml 462 ml 124 ml Intake Oral 380 ml 240 ml 240 ml IV Total 517 ml 397 ml 772 ml 209 ml Output Urine Total 350 ml 2100 ml 550 ml 325 ml # Bowel Movements 0 (Holley Baires MD R1) Result Diagram: 06/11/1651306/11/16513 Imaging see pertinent positives in assessment/plan Objective Remarks GEN: Morbidly obese male in NAD. DERM: Warm and dry. Nails bitten down. Yellow ecchymosis periumbilical region and R pannus, healing. No erythema or skin breakdown appreciated. Numerous skin folds 2/2 habitus. Bandage R lateral malleolus c/d/i. Bandage RUE c/d/i. HEENT: Tracheotomy site c/d/i. Poor dentition. PERRL. EOMI. CV: Distant heart sounds. RRR. Normal peripheral perfusion. RESP: T-piece in place. Transmitted upper respiratory sounds. No wheezing GI: Abdomen soft, obese, non-tender. +BS MSK:LE edema 2+ bilaterally. No calf tenderness NEURO: Grossly normal cranial nerves. Can move fingers RUE, but unable to move against gravity. Patient seems to have very diminished flexion at elbow and extension at elbow was relatively stronger; consistent with prior exam Procedures 04/24- Started ventilation 05/02- Emergency Trach Exchange 06/03- PICC line removed 06/07- Debridement of RUE abscess (Dr. Velazquez), RUE drain 06/10- RUE drain removal (Holley Baires MD R1) Date of Insertion: Apr 24, 2016 (Holley Baires MD R1) A/P Assessment and Plan 31y male w chronic respiratory failure s/p tracheostomy 4y ago and Pickwickian hypoventilation syndrome (BMI 60+) presents with awmal-sm-oxlevuq hypoxia, tracheostomy seal leak, and PNA. Discharge Planning Uncertain, pending weaning from mechanical ventilation with stable clinical status and workup of R shoulder mass. Ideally, return to long-term rehab facility. If qualifies, could consider [facility] vent facility depending on status. Orthopedics, Critical care, ID, Psych, Neurology, IR, PT/OT, Gen Surgery, Rehabilitation consulted. Appreciate recommendations. (Holley Baires MD R1) Attending Attestation Patient examined and case discussed with resident physicians I read the above agree with the assessment/plan is discussed with me I was involved in all medical decision making for this patient Lázaro Rogers M.D. (Lázaro Rogers MD) Problem List: (1) Mass of soft tissue of right upper extremity Status: Acute Plan: - Discuss possibility/recommendations of further surgical intervention with orthopedics and CC. Surgical excision of mass likely necessary to improve RUE function - Mass appears likely hemangioma, as pathology report found: "fragments of blood clot admixed with few minute fragments of adipose and skeletal muscle tissue" - Daily dressing changes with xeroform and primapore - Continue Abx - Daily PT/OT, as tolerated. Goal: RUE strength and self-feeding Impression: Most likely hematoma, though neoplasm and lipoma remain on differential. Debridement subscapularis abscess 06/07/[address] Velazquez. MRI brachial plexus showed multiloculated soft tissue and cystic mass 6 x 6 x 8cm involving R subscapularis muscle. CT-guided biopsy not feasible per IR. Prior to hospitalization, able to transfer to wheelchair and feed self. Now unable to do this. Initially thought to be C6/C7 neuropathy secondary morbid obesity and positioning, however MRI brachial plexus identified soft tissue mass. DVT, L hemispheric pathology, and seizure r/o w imaging (see below). EMG scheduled, not performed as pt de-saturated to 80s on attempt. Imaging: - US negative for DVT (05/28) - MRI brain (04/28) no acute intracranial process - MRI C-spine (05/29): grossly wnl - EEG (05/29): diffuse mild encephalopathy vs normal Stage 2 sleep - MRI brachial plexus (06/03): "Complex multiloculated soft tissue and cystic mass 5.5 x 6 x 7.8 cm involving subscapularis muscle along anterior R scapula - Pathology report (06/07): fragments of blood clot admixed with few minute fragments of adipose and skeletal muscle tissue (2) Bacteremia Status: Acute Plan: - Decreasing leukocytosis 14 -> 12. Afebrile. - Discuss with ID recommended length of treatment for abx - Appreciate ID recommendations - Vancomycin 2000mg IV daily goal trough 15-20, (06/03 -- ) - Zerbaxa IV q8h (06/05-- ) - Colistin 75mg q8h NEB - Acetaminophen 325mg PRN fever Impression: Positive blood, sputum, urine cx (06/03):Pseudomonas aeruginosa and Enterococcus faecalis. Tmax to 101.5F. Thought sepsis via PICC infection. Repeat BCx 06/06 negative, however UCx: +Group D Enterococcus. Serial CXRs grossly unchanged: cardiomegaly w b/l pulm edema and R pleural effusion. Abx History Zosyn 4.5gm IV q6h (04/24 - 04/29) Levaquin 750mg IV q24h (04/24-04/30) Zerbaxa 1.5 g IV q8h (04/29 - 05/07) Vancomycin IV (04/24 - 05/06) Ceftriaxone IV (05/07 - 05/25) Linezolid 600 mg PO BID (05/06 - 05/13) Vancomycin (06/03-- ) Zosyn 3.375 q6h (06/04- 06/05) Zerbaxa (ceftozolane/tazobactam) (06/05 --) (3) Paroxysmal a-fib Status: Chronic Plan: - RUE drain removed 06/10. Discuss with critical care plan for re-initiation of therapeutic Lovenox. - Lovenox 30mg IV q12h, per critical care Impression: Therapeutic Lovenox held for surgery 06/07. DVT prophylaxis re- initiated 06/08. Will return to therapeutic Lovenox per CC and orthopedic recommendations. Held home Xarelto. EKG 05/17: sinus rhythm (4) On mechanically assisted ventilation Status: Acute Plan: - Appreciate respiratory recommendations - CPAP (PS 12, PEEP 8, FiO2 40%) via trach. Advance to TC/TP, as tolerated - Pulmicort BID REYES - Duonebs q2h PRN - Singulair 10mg daily Impression: Acute on chronic hypoxemic respiratory failure secondary to HCAP ( resolved) and tracheostomy leak (s/p exchange 05/02). Baseline 6L NC at rehab. Mechanical ventilation initiated 10/26. Solumedrol (05/10-06/03) (5) CHF (congestive heart failure) Status: Chronic Plan: - Bumex 1mg PO daily + 40 KCl BID - Monitor I/Os, monitor renal function, peripheral edema Impression: Tolerating decreased Bumex well. Suspected HF with poor EF, though unable to confirm via ECHO (04/25/16) due to poor imaging. Unknown EF. BNP was 400, decreasing. (6) Hypertension Status: Chronic Plan: - Cardiazem 90mg QID - Labetalol 10mg IV PRN SBP 160+ (7) Nausea Status: Chronic Plan: - Added Tums 2 PRN stomach ache. - Zofran 4mg PO q6h PRN - Compazine 5mg PO q6h PRN - Protonix 20mg BID Impression: Chronic. Ddx: GERD vs psychosomatic vs impaired gastric emptying vs medication side effect. (8) Stable medical conditions Status: Chronic Plan: HYPERLIPIDEMIA -Atorvastatin 10mg daily and Tricor 48mg daily NORMOCYTIC ANEMIA - Ferrous sulfate 325mg PO daily - Multivitamin 1 tab PO daily MDD: - Pt reports stable mood; some anhedonia suspected. Previously, refusing meals , shower, PT - Sertraline 100 mg PO daily - Seroquel 100mg HS INSOMNIA -Zolpidem 5mg HS PRN GOUT -Allopurinol 300mg daily HYPOTHYROIDISM 08/2015- TSH low, free T4 grossly wnl (05/27/16) -Synthroid 50 mcg PO daily FUNGAL INFECTION -Nystatin powder and miconazole creme to skin folds MORBID OBESITY WITH BMI 60-69 -see above plan for mechanical ventilation RESOLVED CONDITIONS THIS HOSPITAL VISIT - Cellulitis of Chest Wall: completed course linezolid (05/06-05/13), per ID recs - Yeast UTI: completed course Diflucan. UCx 05/01: Dionne albicans. Repeat UCx 05/05: Proteus Mirabilis - HCAP: s/p multiple abx (9) Nutrition, metabolism, and development symptoms Status: Acute Plan: FEN: Fluids: PO (Limited to 1.5L/day PO) Electrolytes: 40KCl BID. Chronically hypokalemic, replete per protocol Nutrition: 2Kcal heart healthy diet. Transitioned to oral feeds (05/29). Needs help with feeding. Wt loss stagnated consider further calorie restriction. PPX: GI ppx: Protonix 20mg BID DVT ppx: Lovenox 30mg BID Pain: Oxycodone 7.5/325 q4h PRN Bowels: Senna 1 tab HS PRN Wt: Admission: 480 lbs. Wt 06/07 ~445 lbs. Continue monitor, encourage, modify/restrict diet, as appropriate (Holley Baires MD R1) Problem Qualifiers (1) CHF (congestive heart failure): Qualified Code: I50.9 - Acute on chronic congestive heart failure, unspecified congestive heart failure type (2) Hypertension: Qualified Code: I10 - Essential hypertension Holley Baires MD R1 Jun 11, 2016 08:19 Lázaro Rogers MD Jun 11, 2016 10:36
[2016-06-11] MEDS: RESP: COLISTIN 150 MG VIAL NEB SCH ×3 (08:48→23:27)
--- NOTE | 2016-06-11 08:55 | HHI.IDPN ---
Subjective Subjective Remarks Notes reviewed Temps ok Doing well on CPAP Not SOB BP good Has BC roberto PSAE MDR and Enterococcus faecalis No new (+) BC [place] changed 06/06 Has peripheral IV in place 31 y/o Morbidly obese CM, with Chronic respiratory failure, prior h/o HCAP with MDR PSAE that are resistant to Cefepime and Zosyn, as well as UTI. S/P Rx Started again with fevers 06/01, ID reconsulted PICC felt to be the source, PICC removed Also developed RUE weakness, MRI showed complex fluid collection around brachial plexus S/P OR RUE 06/07, could not find any C/S Antibiotics Colistin nebs Zerbaxa IV Vanco IV Lines PIVs Past Medical History Chronic Respiratory Failure s/p Tracheostomy 4 years ago Morbid Obesity w/ BMI 67.6 Atrial fibrillation Pulmonary embolism 4 years ago Anxiety CHF (Echo 06/07/2014 w/ EF 40-45%; ECHO 08/2015 showing a grossly normal systolic function) HTN Hypothyroidism Past Surgical History Tracheostomy Tonsillectomy Allergies: Coded Allergies: *MDRO Multi-Drug Resistant Organism (Verified Adverse Reaction, Unknown, 05/08/16) XDR Pseudomonas aeruginosa (sputum) - 09/18/15; (sputum & wound) - 04/27/16 Objective . Vital Signs Date Time Temp Pulse Resp B/P Pulse Ox O2 Delivery O2 Flow Rate FiO2 06/11/16 08:07 100 40 06/11/16 06:00 93 06/11/16 04:22 100 40 06/11/16 04:00 81 06/11/16 04:00 40 06/11/16 04:00 98.5 81 18 141/70 100 06/11/16 02:00 81 06/11/16 01:35 99 40 06/11/16 00:00 76 06/11/16 00:00 97.9 76 41 141/72 96 06/11/16 00:00 40 06/10/16 22:00 78 06/10/16 20:00 98.5 80 19 140/67 100 06/10/16 20:00 80 06/10/16 20:00 40 06/10/16 19:49 100 40 06/10/16 18:00 86 06/10/16 18:00 98.5 86 21 146/68 98 06/10/16 18:00 40 06/10/16 16:49 100 40 06/10/16 14:00 97 06/10/16 12:00 81 06/10/16 12:00 98.7 82 18 142/67 100 06/10/16 12:00 40 06/10/16 10:09 98 40 06/10/16 10:00 87 06/10/16 06/10/16 06/11/16 15:00 23:00 07:00 Intake Total 777 ml 1012 ml 449 ml Output Total 2100 ml 550 ml 325 ml Balance -1323 ml 462 ml 124 ml Intake Oral 380 ml 240 ml 240 ml IV Total 397 ml 772 ml 209 ml Output Urine Total 2100 ml 550 ml 325 ml # Bowel Movements 0 . Laboratory Tests Test 06/10/16 06/11/16 04:59 05:14 White Blood Count 14.3 TH/MM3 12.2 TH/MM3 Red Blood Count 3.16 MIL/MM3 3.25 MIL/MM3 Hemoglobin 7.8 GM/DL 8.1 GM/DL Hematocrit 26.0 % 26.8 % Mean Corpuscular Volume 82.2 FL 82.3 FL Mean Corpuscular Hemoglobin 24.8 PG 24.8 PG Mean Corpuscular Hemoglobin 30.2 % 30.2 % Concent Red Cell Distribution Width 25.0 % 24.6 % Platelet Count 343 TH/MM3 324 TH/MM3 Mean Platelet Volume 7.0 FL 7.0 FL Neutrophils (%) (Auto) 79.2 % 75.3 % Lymphocytes (%) (Auto) 11.7 % 14.6 % Monocytes (%) (Auto) 7.8 % 8.2 % Eosinophils (%) (Auto) 0.8 % 1.1 % Basophils (%) (Auto) 0.5 % 0.8 % Neutrophils # (Auto) 11.3 TH/MM3 9.2 TH/MM3 Lymphocytes # (Auto) 1.7 TH/MM3 1.8 TH/MM3 Monocytes # (Auto) 1.1 TH/MM3 1.0 TH/MM3 Eosinophils # (Auto) 0.1 TH/MM3 0.1 TH/MM3 Basophils # (Auto) 0.1 TH/MM3 0.1 TH/MM3 CBC Comment AUTO DIFF AUTO DIFF Differential Total Cells 100 100 Counted Neutrophils % (Manual) 51 % 68 % Band Neutrophils % 15 % 8 % Lymphocytes % 8 % 7 % Monocytes % 8 % 5 % Basophils % 1 % Neutrophils # (Manual) 11.9 TH/MM3 10.7 TH/MM3 Metamyelocytes 14 % 1 % Myelocytes 3 % 11 % Differential Comment FINAL DIFF FINAL DIFF MANUAL MANUAL Platelet Estimate NORMAL NORMAL Platelet Morphology Comment NORMAL NORMAL Basophilic Stippling FAINT Acanthocytes OCC Polychromasia 2.4 % Laboratory Tests Test 06/10/16 06/11/16 04:59 05:14 Sodium Level 141 MEQ/L 141 MEQ/L Potassium Level 3.3 MEQ/L 3.3 MEQ/L Chloride Level 99 MEQ/L 100 MEQ/L Carbon Dioxide Level 31.6 MEQ/L 34.2 MEQ/L Anion Gap 10 MEQ/L 7 MEQ/L Blood Urea Nitrogen 7 MG/DL 6 MG/DL Creatinine 0.32 MG/DL 0.31 MG/DL Estimat Glomerular Filtration 323 ML/MIN 335 ML/MIN Rate Random Glucose 78 MG/DL 73 MG/DL Calcium Level 8.2 MG/DL 8.8 MG/DL Total Bilirubin 0.5 MG/DL Aspartate Amino Transf 26 U/L (AST/SGOT) Alanine Aminotransferase 18 U/L (ALT/SGPT) Alkaline Phosphatase 84 U/L Total Protein 5.0 GM/DL Albumin 1.7 GM/DL Phosphorus Level 3.9 MG/DL Magnesium Level 1.6 MG/DL Imaging Chest X-Ray 06/03/16 0600 Signed Impressions: Service Date/Time: Friday, June 03, 2016 03:22 - CONCLUSION: 1. Cardiomegaly with bilateral pulmonary edema. 2. Moderate right pleural effusion. Vishnu Woodward MD Liver Ultrasound 06/03/16 0000 Signed Impressions: Service Date/Time: Friday, June 03, 2016 08:10 - CONCLUSION: 1. There is some sludge in the gallbladder. This can be seen with chronic gallbladder disease. 2. Fatty infiltration of the liver which appears to be enlarged. 3. No mechanical biliary tract obstruction. 4. Splenomegaly. Lázaro Frankel MD Brachial Plexus MRI 06/03/16 0000 Signed Impressions: Service Date/Time: Friday, June 03, 2016 12:42 - CONCLUSION: There is a complex multiloculated soft tissue and cystic mass measuring approximately 5.5 x 6.0 x 7.8 cm involving the subscapularis muscle along the anterior right scapula. The differential considerations include neoplastic disease, infection and hematoma. Recommend a CT scan of the right shoulder to pre-plan for CT-guided aspiration/biopsy of this abnormality. Lázaro Frankel MD Cervical Spine MRI 05/29/16 0000 Signed Impressions: Service Date/Time: Sunday, May 29, 2016 13:51 - CONCLUSION: Limited study but appears normal. Vishnu Woodward MD Brain MRI 05/29/16 0000 Signed Impressions: Service Date/Time: Sunday, May 29, 2016 13:51 - CONCLUSION: 1. Focal chronic ischemic change in the high right frontal parietal convexity stable from previous CT scan. 2. No acute intracranial abnormality. 3. Minimal nonspecific white matter changes. Vishnu Woodward MD Upper Extremity Ultrasound 05/28/16 0000 Signed Impressions: Service Date/Time: Saturday, May 28, 2016 10:16 - CONCLUSION: 1. Negative for deep venous thrombosis. Venous line noted in cephalic, subclavian and internal jugular vein. Horacio Gupta MD Abdomen X-Ray 04/29/16 0000 Signed Impressions: Service Date/Time: Friday, April 29, 2016 07:12 - CONCLUSION: Suspect Dobbhoff tube in the distal stomach. Garcia Lujan MD Chest X-Ray 05/20/16 0000 Signed Impressions: Service Date/Time: Friday, May 20, 2016 03:21 - CONCLUSION: Persistent mid and lower lung areas of consolidation or atelectasis being worse in the right. There has been mild improvement. Garcia Lujan MD Chest X-Ray 05/16/16 0600 Signed Impressions: Service Date/Time: April 03:21 - CONCLUSION: 1. Slight improvement in bilateral airspace disease over the last day. Horacio Gupta MD Chest X-Ray 05/15/16 0600 Signed Impressions: Service Date/Time: Sunday, May 15, 2016 04:31 - CONCLUSION: 1. Slight increase in airspace disease since May 13. Differential diagnosis includes pulmonary edema. Support apparatus unchanged. Horacio Gupta MD Chest X-Ray 05/13/16 0600 Signed Impressions: Service Date/Time: Friday, May 13, 2016 03:26 - CONCLUSION: 1. Stable exam compared with May 12 with bilateral mostly basilar airspace disease. Horacio Gupta MD Chest X-Ray 05/10/16 0600 Signed Impressions: Service Date/Time: Tuesday, May 10, 2016 02:45 - CONCLUSION: Worsening right lower lobe infiltrate. Jeremiah Walton Jr., MD Chest X-Ray 05/09/16 0600 Signed Impressions: Service Date/Time: April 02:52 - CONCLUSION: No significant change has occurred. Bill Zavala MD Chest X-Ray 05/08/16 06 Signed Impressions: Service Date/Time: Sunday, May 08, 2016 04:01 - CONCLUSION: No significant change has occurred. Bill Zavala MD Chest X-Ray 05/05/16 06 Signed Impressions: Service Date/Time: Thursday, May 05, 2016 01:56 - CONCLUSION: Improved aeration bilaterally particularly in the left upper lobe. Tube and catheter are stable. Amador Brock MD Chest X-Ray 05/03/16 0000 Signed Impressions: Service Date/Time: Tuesday, May 03, 2016 06:40 - CONCLUSION: Increasing bilateral diffuse pulmonary infiltrates compared to the prior study. Lázaro Frankel MD Upper Extremity Ultrasound 05/02/16 0000 Signed Impressions: Service Date/Time: April 20:51 - CONCLUSION: No DVT. Garcia Lujan MD Abdomen X-Ray 04/29/16 0000 Signed Impressions: Service Date/Time: Friday, April 29, 2016 07:12 - CONCLUSION: Suspect Dobbhoff tube in the distal stomach. Garcia Lujan MD Physical Exam GENERAL: Awake and alert, on CPAP, comfortable SKIN: Warm and moist. No generalized rash. HEENT: Meno conjunctivae. Full EOM. No scleral icterus. Moist mucosa. NECK: Short and obese, has trach, site ok. Supple, no meningeal signs. CARDIOVASCULAR: Regular rate and rhythm. Distant heart sounds. RESPIRATORY: Decreased BS bilaterally. GASTROINTESTINAL: Abdomen soft, morbidly obese, not tender, not distended. MUSCULOSKELETAL: Extremities without clubbing, cyanosis. Has mild pitting edema. Incision RUE ok, drain in place, with some bloody drainage, no redness NEUROLOGICAL: Awake and following, responding : [place] in place, urine looks clear Assessment & Plan Remarks IMPRESSION E.faecalis and Pseudomonas bacteremia: from PICC line site with fevers: Central line associated blood stream infection(CLABSI). - PICC removed - repeat BC negative Scapular areas fluid collection, abscess per ortho, no C/S sent MDR PSAE PNA, S/P Rx PSAE in urine: likely colonization or translocation of bacteria from PSAE bacteremia. - now with Enterococcus in UC Morbid obesity Sleep apnea Hx PE Anorexia RECOMMENDATION Continue Vanco IV (target trough 15-20) Continue Zerbaxa IV (ASP: has known MDR PSAE and now has bacteremia.) Continue Colistin nebs. - Will only suppress organism with Colistin given prior MDR and clinically stable at this point. Follow cultures Monitor progress Weaning per CCM as tolerated Dana Tam MD Jun 11, 2016 08:55
[2016-06-11] MEDS: BUMETANIDE 1 MG TAB PO SCH (09:00)
[2016-06-11] MEDS: FERROUS SULFATE 325 MG (65 MG ELEMENTAL IRON) TAB PO SCH (09:00)
[2016-06-11] MEDS: DILTIAZEM HCL 90 MG TAB PO SCH ×4 (09:00→21:08)
[2016-06-11] MEDS: FENOFIBRATE 48 MG TAB PO SCH (09:00)
[2016-06-11] MEDS: ALLOPURINOL 300 MG TAB PO SCH (09:00)
[2016-06-11] MEDS: ATORVASTATIN 10 MG TAB PO SCH (09:00)
[2016-06-11] MEDS: MONTELUKAST SODIUM 10 MG TAB PO SCH (09:00)
[2016-06-11] MEDS: MICONAZOLE NITRATE 2% CREAM 15 GM TOP SCH ×2 (09:00→21:07)
[2016-06-11] MEDS: SERTRALINE HCL 100 MG TAB PO SCH (09:00)
[2016-06-11] MEDS: NYSTATIN 100,000 U/GM PWD 15 GM BTL TOPICAL SCH ×2 (09:00→21:07)
[2016-06-11] MEDS: COLLAGENASE OINT 30 GM TUBE TOP SCH (09:00)
[2016-06-11] MEDS: PANTOPRAZOLE SOD 20 MG DELAYED RELEASE TAB PO SCH ×2 (09:00→21:08)
[2016-06-11] MEDS: SODIUM CHLORIDE 0.9% FLUSH 5 ML FLUSH IVF SCH ×2 (09:00→21:07)
[2016-06-11] MEDS: MULTIVITAMIN TAB PO SCH (09:00)
--- NOTE | 2016-06-11 10:36 | MP ---
cc: JAMESON ANDERSON DATE OF SURGERY 06/07/2016 PREOPERATIVE DIAGNOSIS 1. Right shoulder fluid collection with possible abscess. 2. Right arm brachial plexus palsy. POSTOPERATIVE DIAGNOSIS 1. Right shoulder fluid collection with possible abscess. 2. Right arm brachial plexus palsy. ANESTHESIA General ESTIMATED BLOOD LOSS 50 cc SPECIMEN Pathology specimen of right shoulder tissue. DETAILS OF THE PROCEDURE Wilfrido is a 31-year-old male with multiple medical problems. The patient has developed a complete brachial plexus palsy. MRI was done revealing a potential fluid collection around the brachial plexus and right scapula. Initially interventional radiology was consulted for drainage of this wound. Interventional radiology said that they were unable to access this fluid collection because of its location. Informed consent was obtained from the patient. The operative site was marked. He was brought to the operating room and placed on the OR table. He was given IV sedation and GETA. Because of the patient's very large size, he was kept on his bariatric bed. The right arm and shoulder were prepped with alcohol, followed by Hibiclens and draped in the usual sterile fashion. Time out procedure was performed. The procedure began with a 5-inch incision over the anterior shoulder, a standard deltopectoral interval was utilized. At this point, the shoulder was identified. The biceps tendon was identified. The rotator cuff interval was opened. At this point, a portion of the superior subscapularis was elevated off the humerus. The anterior scapula was now partially exposed. Blunt dissection was used to elevate the subscapularis muscle off the scapula. No fluid collection was noted. At this point, the inferior border of the subscapularis was identified. Care was taken to avoid injury to the axillary nerve. The inferior border of the subscapularis was elevated. Again, there was no mass or fluid collection noted. At this point, the subscapularis tendon was peeled off the proximal humerus and elevated. The anterior aspect of the scapula was visualized. Soft tissue dissection was performed bluntly around the anterior scapula. There was no evidence of purulence. There was a small area of possible hematoma present. The tissue from this was sent to pathology. There was no evidence of malignant or neoplastic process. Soft tissue was thoroughly inspected to find any further abnormalities. No other abnormalities were identified. The wound was now thoroughly irrigated. A drain was placed deep. Two drill holes were made into the lesser tuberosity. The subscapularis tendon was repaired using #1 PDS sutures. The rotator cuff interval was also closed with #1 PDS suture. The fascia was closed with number one PDS, subcutaneous tissues were closed with 3-0 PDS and skin was closed with viral. Sterile dressings were applied. The patient was transferred back to the intensive care unit in a stable condition. MD ISABELLE Luna/SHERRI /12:42 PM /10:27 AM
[2016-06-11] MEDS: ENOXAPARIN SODIUM 30 MG/0.3 ML SYRINGE SQ SCH (11:53)
[2016-06-11] MEDS: POTASSIUM CHLORIDE 20 MEQ CONTROLLED RELEASE TAB PO SCH ×2 (11:53→21:09)
[2016-06-11] MEDS: CHLORHEXIDINE 0.12% (ORAL KIT) 15 ML CUP MT SCH ×2 (11:55→21:06)
[2016-06-11] MEDS: VANCOMYCIN INJ 2,000 MG in SODIUM CHLORID 0.9% 500 ML INJ 500 ML IV SCH (13:57)
[2016-06-11] MEDS: oxyCODONE/ACETAMINOPHEN 7.5 MG/325 MG TAB PO PRN (16:07)
[2016-06-11] MEDS: ONDANSETRON ODT 4 MG TAB PO PRN (16:36)
[2016-06-11] MEDS: MORPHINE SULFATE 4 MG/ML INJ IV PUSH PRN ×2 (17:07→21:08)
[2016-06-11] MEDS: ENOXAPARIN SODIUM 150 MG/ML SYRINGE SQ SCH (21:07)
[2016-06-11] MEDS: ZOLPIDEM TARTRATE 5 MG TAB PO PRN (21:08)
[2016-06-11] MEDS: QUEtiapine FUMARATE 100 MG TAB PO SCH (21:08)
[2016-06-12] VITALS (19 sets, daily range): BP systolic 137–164; BP diastolic 65–79; PULSE 82–96; RESP 17–27; TEMP 97.7–98.3; O2SAT 95–100
[2016-06-12] MEDS: CEFTOLOZANE-TAZOBACTAM INJ 1,500 MG in SODIUM CHLORIDE 0.9% INJ 100 ML IV SCH ×3 (02:42→21:04)
[2016-06-12] MEDS: LEVOTHYROXINE SODIUM 50 MCG TAB PO SCH (04:04)
[2016-06-12] MEDS: MORPHINE SULFATE 4 MG/ML INJ IV PUSH PRN ×2 (04:04→21:03)
[2016-06-12] MEDS ORDERED: MIDAZOLAM 100 MG/ML INJ 100 ML IV SCH (08:00)
[2016-06-12] MEDS: RESP: BUDESONIDE 0.5 MG/2 ML NEB NEB SCH ×2 (08:09→19:35)
[2016-06-12 09:07] LABS: AUTOMATED NEUTROPHIL # 8.8 TH/MM3 (1.8-7.7); BASOPHIL # 0.1 TH/MM3 (0-0.2); EOSINOPHIL # 0.2 TH/MM3 (0-0.4); EOSINOPHIL % 1.4 % (0.0-4.0); HEMATOCRIT 28.4 % (39.0-51.0); LYMPH % 16.2 % (9.0-44.0); LYMPHOCYTE # 1.9 TH/MM3 (1.0-4.8); MEAN CELL VOLUME 81.6 FL (80.0-100.0); MEAN CORPUSCULAR HEMOGLOBIN 24.6 PG (27.0-34.0); MEAN CORPUSCULAR HGB CONC 30.1 % (32.0-36.0); MONO % 7.1 % (0.0-8.0); NEUT % 74.3 % (16.0-70.0); PLATELET COUNT 327 TH/MM3 (150-450); RED BLOOD COUNT 3.48 MIL/MM3 (4.50-5.90); WHITE BLOOD COUNT 11.8 TH/MM3 (4.0-11.0)
[2016-06-12 09:09] LABS: HEMO FLAGS AUTO DIFF
[2016-06-12] MEDS: RESP: COLISTIN 150 MG VIAL NEB SCH ×3 (09:22→23:37)
[2016-06-12 09:32] LABS: MAGNESIUM 1.6 MG/DL (1.5-2.5); POTASSIUM 3.4 MEQ/L (3.5-5.1)
[2016-06-12 09:49] LABS: BANDS 16 % (0-6); EOSINOPHILS 1 % (0-4); MYELOCYTES 5 % (0-0); NEUTROPHIL # MANUAL DIFF 9.2 TH/MM3 (1.8-7.7); POLYS (SEG NEUTROPHILS) 57 % (16-70); WBC DIFF SAMPLE 100
[2016-06-12 09:50] LABS: PLATELET ESTIMATE SMEAR NORMAL (NORMAL); PLATELET MORPHOLOGY NORMAL (NORMAL); SCAN/DIFF FINAL DIFF MANUAL; STOMATOCYTES 1+ (NORMAL); TEARDROP RBCS 1+ (NORMAL); TOXIC GRANULATION 1+ (NORMAL)
--- NOTE | 2016-06-12 10:13 | PD.ORT.PN ---
Subjective Subjective Remarks pain controlled no new complaints Objective Vitals Vital Signs Date Time Temp Pulse Resp B/P Pulse Ox O2 Delivery O2 Flow Rate FiO2 06/12/16 08:10 98 40 06/12/16 08:00 40 06/12/16 08:00 93 06/12/16 06:00 87 06/12/16 04:15 97 40 06/12/16 04:00 97.7 96 19 144/65 100 06/12/16 04:00 96 06/12/16 04:00 40 06/12/16 02:00 87 06/12/16 00:49 96 40 06/12/16 00:00 98.1 92 20 137/67 95 06/12/16 00:00 92 06/12/16 00:00 40 06/11/16 22:00 86 06/11/16 21:47 100 40 06/11/16 20:25 100 40 06/11/16 20:00 90 06/11/16 20:00 40 06/11/16 20:00 98.5 90 22 145/67 100 06/11/16 18:00 90 06/11/16 16:09 95 40 06/11/16 16:00 93 06/11/16 16:00 98.7 91 22 147/87 98 06/11/16 16:00 40 06/11/16 14:00 91 06/11/16 12:00 92 06/11/16 12:00 98.4 92 24 137/67 94 06/11/16 12:00 40 06/11/16 11:44 100 40 I/O 06/11/16 06/11/16 06/11/16 06/12/16 06/12/16 06/12/16 06:59 14:59 22:59 06:59 14:59 22:59 Intake Total 449 ml 1015 ml 1157 ml 559 ml Output Total 325 ml 1400 ml 300 ml 325 ml Balance 124 ml -385 ml 857 ml 234 ml Intake Oral 240 ml 680 ml 480 ml 360 ml IV Total 209 ml 335 ml 677 ml 199 ml Output Urine Total 325 ml 1400 ml 300 ml 325 ml # Bowel Movements 1 Result Diagram: 06/12/1682106/12/16821 Objective Remarks RUE: dressing clean, dry and intact. neg sensation over median nerve, sensation over ulnar and radial nerve partial extension of fingers, nearly able to make a fist. active extension of elbow, no flexion of elbow Assessment & Plan Assessment and Plan 1) Right Shoulder I&D - POD 5 -daily dressing changes with xeroform and primapore -continue Abx PT for ROM SYDNEY CHRIS PA-C Jun 12, 2016 10:13
[2016-06-12] MEDS: ALLOPURINOL 300 MG TAB PO SCH (10:21)
[2016-06-12] MEDS: DILTIAZEM HCL 90 MG TAB PO SCH ×4 (10:21→21:04)
[2016-06-12] MEDS: SERTRALINE HCL 100 MG TAB PO SCH (10:21)
[2016-06-12] MEDS: POTASSIUM CHLOR 40 MEQ PREMIX 100 ML IV PRN (10:22)
[2016-06-12] MEDS: MULTIVITAMIN TAB PO SCH (10:22)
[2016-06-12] MEDS: ATORVASTATIN 10 MG TAB PO SCH (10:22)
[2016-06-12] MEDS: FENOFIBRATE 48 MG TAB PO SCH (10:22)
[2016-06-12] MEDS: SODIUM CHLORIDE 0.9% FLUSH 5 ML FLUSH IVF SCH ×2 (10:22→21:03)
[2016-06-12] MEDS: ENOXAPARIN SODIUM 150 MG/ML SYRINGE SQ SCH ×2 (10:22→21:04)
[2016-06-12] MEDS: FERROUS SULFATE 325 MG (65 MG ELEMENTAL IRON) TAB PO SCH (10:23)
[2016-06-12] MEDS: PANTOPRAZOLE SOD 20 MG DELAYED RELEASE TAB PO SCH ×2 (10:23→21:04)
[2016-06-12] MEDS: MONTELUKAST SODIUM 10 MG TAB PO SCH (10:23)
[2016-06-12] MEDS: BUMETANIDE 1 MG TAB PO SCH (10:23)
[2016-06-12] MEDS: COLLAGENASE OINT 30 GM TUBE TOP SCH (10:24)
[2016-06-12] MEDS: MICONAZOLE NITRATE 2% CREAM 15 GM TOP SCH ×2 (10:24→21:05)
[2016-06-12] MEDS: NYSTATIN 100,000 U/GM PWD 15 GM BTL TOPICAL SCH ×2 (10:24→21:06)
[2016-06-12] MEDS: VANCOMYCIN INJ 2,000 MG in SODIUM CHLORID 0.9% 500 ML INJ 500 ML IV SCH (10:30)
[2016-06-12] MEDS: CHLORHEXIDINE 0.12% (ORAL KIT) 15 ML CUP MT SCH ×2 (10:30→21:03)
--- NOTE | 2016-06-12 11:05 | HHI.CCPN ---
Subjective Remarks/Hospital Course 31 year old morbidly obese (BMI 68) male with chronic respiratory failure s/p tracheostomy 4 years ago, atrial fibrillation and pulmonary embolism on Xarelto , COPD, CHF and h/o HTN. He presented from [facility] with low oxygen saturation apparently his oxygen saturation was 82% on RA. He was placed back on 6L of oxygen via his trach mask and given a breathing treatment, initially improved however he started drifting back to low 80s again. Chest x-ray showed bibasilar infiltrates and pulmonary edema. Patient was admitted to the [facility] service and was started on IV steroids IV vancomycin and Zosyn and Levaquin for healthcare associated pneumonia. After starting ACV, patient was more awake but there was a significant amount of air leak around his tracheostomy. Patient has had a Shiley 6.0 Proximal XLT, but the fire pilot balloon had been cut off. 05/02 the patient became acutely hypoxemic with a large cuff leak, underwent emergency trach exchange at bedside by Dr. Macias. FiO2 65% PEEP 14 05/13 Patient is on ventilator via trach, on Fentanyl infusion however he is awake and alert. On PRVC with FIO2 40%. Afebrile. 05/14 No acute events overnight. Tmax 99.8. Patient is awake, alert on ventilator via trach still requiring increase O2. On PRVC with PEEP: 10 and FIO2 70%. 05/15 patient acutely desaturated after he was found. Saturation went down to 70% on 100% oxygen. Bag and mask ventilation carried out, with eventual improvement on oxygen saturation to 85%. Patient was placed on PC/AC mode of ventilation, with PEEP of 15 and instructed to pressure of 30. Eventually oxygen saturation improved to 95%. Lasix him today as the chest x-ray from today shows increasing bilateral infiltrate and pulmonary edema. Also sputum culture will be sent 05/16 Patient is on Fentanyl and Diprivan infusion but awake and alert. Afebrile. On PC/AC with PEEP:15, IP: 22, IT:1.3 and FIO2 50% 05/17 Patient is off Diprivan and remains on Fentanyl infusion for sedation. On PC/AC with PEEP: down 10 and FIO2 40%. Afebrile. 05/18 Patient remains on ventilator via trach on PC/AC with PEEP:12, FIO2 40%, IP:22, IT:1.0. On Fentanyl infusion 05/19 No acute events overnight. On Fentanyl infusion but awake and alert. Afebrile. 05/20 Tolerating C Pap 17/12 FIO2 40, sats 98%. RSBI in 20s, appears can be weaned further. Afebrile. Speech therapy evaluated and ok for regular diet. Starting with full liquid. 05/21 Will wean PSV to 15/10. Tolerated full liquids, will advance to regular diet per speech recs. Subjective: 05/22 On PSV 15/10 FIO2 40 with sats 92%. Smiling today. Glad to be eating regular food again. 05/23 No acute events overnight. Remains on CPAP with PS 15, PEEP:10 and FIO2 40 %. Afebrile. Off Fentanyl drip. Afebrile. Awake and alert. 05/24 Patient is on CPAP 06/06 with 40% FIO2. Afebrile. Awake and alert, on no sedation. 05/25 No acute events overnight. Patient was placed back on PC/AC overnight. Tolerated CPAP trials during day yesterday. Awake and alert. On no drips. Afebrile. 05/26 Afebrile. Tmax 98.6. Today the patient complained of nausea requiring Zofran. The patient has a lack of an appetite, with noted hypoglycemia early this a.m. blood glucose level 69. Patient tolerating CPAP well greater than 12 hours in the last 24 hours. 05/27 The patient tolerated CPAP for over 36 hours, O2 sat a knee 94% on FIO2 40 %. The patient had an increase in appetite. The patient continues on full liquid diet. 05/28 The patient declined physical therapy treatment, yesterday and also overnight declined to be moved by nursing staff. The patient refused dinner last evening, of note patient was reevaluated by speech therapy and can consume a heart healthy diet with thin liquids. The patient continues on physical therapy for strengthening exercises of all extremities specifically noted right upper extremity continues to be weak with gross fibrillations noted in hand and forearm. 05/29 Afebrile. No change in right upper extremity weakness. The patient was seen by neurology yesterday plan for MRI today if possible in hospital MRI, and EMG studies. No complaints overnight. Patient continues to refuse to have activities performed, movement in bed. The patient appears to be depressed, psychiatry consulted. 05/30: Patient alert awake on CPAP. Following commands. Psych agrees the patient is depressed. MRI brain no acute findings 05/31: Awake alert. on PS 15/8. EMG could not be completed due to patient becoming anxious. Otherwise no acute events reported overnight 06/01: Remains PS from 15/8. Right upper extremity weakness persists. EMG to be repeated on Friday. Will need MRI of the brachial plexus. Chest x-ray is unchanged 06/02: States that "not feeling well". Febrile to 101.5. White count increasing but still within the normal range. Pancultured. We'll request ID reevaluation. 06/03: Resting in bed on C Pap/pressure support via tracheostomy. One out of 2 sets of blood cultures sent on 06/02 positive for gram-positive cocci. 06/04: Resting in bed on mechanical ventilation via tracheostomy. Afebrile overnight. MRI brachial plexus (06/03) revealed a collection near the right subscapularis muscle, possibly an abscess. Discussed with ID, orthopedics Dr. Velazquez consulted. I discussed the case with Dr. Velazquez this morning who feels this is probably an abscess however would be difficult to access surgically and he plans to set up percutaneous drainage by interventional radiology. 06/05: Resting in bed on mechanical ventilation via tracheostomy. Remains afebrile. Reportedly IR cannot do percutaneous drainage of collection involving right subscapularis muscle. 06/06: Resting in bed on mechanical ventilation via tracheostomy. Can actually speak around the trach. Remains afebrile. Dr. Velazquez evaluated patient and is scheduling surgery for drainage of fluid collection involving the right subscapularis muscle. 06/07: Resting in bed on mechanical ventilation via tracheostomy. Awaiting surgery today. 06/08: Status post I&D of collection near right shoulder/subscapularis on 06/[address] Velazquez. This morning patient is awake and alert complained of some pain at the surgical site. Remains on mechanical ventilation on C Pap/pressure support. 06/09: Sleeping, arousable. On mechanical ventilation with C Pap/pressure support overnight. Labs pending 06/10 No acute events overnight. On CPAP with PS 12, PEEP: 8, FIO2 40%. Afebrile. 06/11 Patient remains on CPAP with PS 10, PEEP: 8 and FIO2 40%. Afebrile. 06/12: No acute events overnight. Remains on CPAP 04/03. No specific complaints Objective Vital Signs Date Time Temp Pulse Resp B/P Pulse Ox O2 Delivery O2 Flow Rate FiO2 06/12/16 08:10 98 40 06/12/16 08:00 93 06/12/16 04:00 97.7 19 144/65 Intake and Output 06/11/16 06/11/16 06/12/16 08:00 16:00 00:00 Intake Total 449 ml 1015 ml 1157 ml Output Total 325 ml 1400 ml 300 ml Balance 124 ml -385 ml 857 ml Result Diagram: 06/12/16 0806/12/16821 Imaging Last Impressions Chest X-Ray 06/03/16 0600 Signed Impressions: Service Date/Time: Friday, June 03, 2016 03:22 - CONCLUSION: 1. Cardiomegaly with bilateral pulmonary edema. 2. Moderate right pleural effusion. Vishnu Woodward MD Liver Ultrasound 06/03/16 0000 Signed Impressions: Service Date/Time: Friday, June 03, 2016 08:10 - CONCLUSION: 1. There is some sludge in the gallbladder. This can be seen with chronic gallbladder disease. 2. Fatty infiltration of the liver which appears to be enlarged. 3. No mechanical biliary tract obstruction. 4. Splenomegaly. Lázaro Frankel MD Brachial Plexus MRI 06/03/16 0000 Signed Impressions: Service Date/Time: Friday, June 03, 2016 12:42 - CONCLUSION: There is a complex multiloculated soft tissue and cystic mass measuring approximately 5.5 x 6.0 x 7.8 cm involving the subscapularis muscle along the anterior right scapula. The differential considerations include neoplastic disease, infection and hematoma. Recommend a CT scan of the right shoulder to pre-plan for CT-guided aspiration/biopsy of this abnormality. Lázaro Frankel MD Cervical Spine MRI 05/29/16 0000 Signed Impressions: Service Date/Time: Sunday, May 29, 2016 13:51 - CONCLUSION: Limited study but appears normal. Vishnu Woodward MD Brain MRI 05/29/16 0000 Signed Impressions: Service Date/Time: Sunday, May 29, 2016 13:51 - CONCLUSION: 1. Focal chronic ischemic change in the high right frontal parietal convexity stable from previous CT scan. 2. No acute intracranial abnormality. 3. Minimal nonspecific white matter changes. Vishnu Woodward MD Upper Extremity Ultrasound 05/28/16 0000 Signed Impressions: Service Date/Time: Saturday, May 28, 2016 10:16 - CONCLUSION: 1. Negative for deep venous thrombosis. Venous line noted in cephalic, subclavian and internal jugular vein. Horacio Gupta MD Abdomen X-Ray 04/29/16 0000 Signed Impressions: Service Date/Time: Friday, April 29, 2016 07:12 - CONCLUSION: Suspect Dobbhoff tube in the distal stomach. Garcia Lujan MD Objective Remarks GENERAL: Patient is 31yo on ventilator via trach, awakens and follows commands. Super Morbidly obese. SKIN: Warm and dry. HEAD: Normocephalic. EYES: No scleral icterus. No injection or drainage. NECK: Supple, trachea midline. Shiley 6.0 Proximal XLT, (new trach placed ) CARDIOVASCULAR:Tachycardic without murmurs, gallops, or rubs. RESPIRATORY: On mechanical ventilation, Breath sounds equal bilaterally. Distant secondary to habitus. GASTROINTESTINAL: Abdomen soft, obese, non-tender, nondistended. Multiple noted areas of ecchymotic bruising secondary to subcutaneous injections MUSCULOSKELETAL: No cyanosis, or edema. Pedal edema. Wound on lateral aspect of right lower leg above lateral malleolus , dressing C/D/I. right upper extremity motor strength, inability to perform flexion, or pronation, hand school psychologist strength 2/5. Dressing around the right axilla/shoulder with RAGINI drain in place with serosanguineous drainage - 10cc since 06/08 Neuro: Arousable. Moves all extremities with focal deficit right upper extremity as above. Date of Insertion: Apr 24, 2016 A/P Assessment and Plan ASSESSMENT Acute hypercapnic and hypoxemic respiratory failure Acute worsening of hypoxia due to lung de-recruitment 05/15/16 Healthcare associated pneumonia MDR Pseudomonas Enterococcal bacteremia Pseudomonas bacteremia Collection near right subscapularis muscle(On MRI 06/03) - abscess status post I& D on 06/07 Sepsis CHF exacerbation CO2 narcosis Tracheostomy fire pilot balloon damage -status post exchange with new Shiley 6.0 Proximal XLT 05/02/16 Chronic Respiratory Failure s/p Tracheostomy 4 years ago (Shiley 6.0 Proximal XLT) Probable right brachial plexus injury COPD/obesity hypoventilation syndrome Morbid Obesity BMI 67 History of pulmonary embolism 4 years ago Chronic atrial fibrillation Anxiety CHF (Echo 2013 EF 40-45%; ECHO 08/2015 showing a grossly normal systolic function) Hypertension Hypothyroidism PLAN NEURO: CO2 narcosis - resolved Critical care polyneuropathy Right upper extremity weakness 05/21-possibly secondary to nerve compression, C6 , C7 (brachial plexus) Pain Anxiety Depression -Collection near right subscapularis muscle(On MRI 06/03) - abscess status post I &D on 06/07 -EMG/ NCV could not be completed on 05/[address] Castillo -Right upper extremity absence of triceps reflex, diminished sensation/numbness in C6-C7 dermatome level both anterior and posterior, inability for pronation, handgrip strength /, lack of wrist extension/flexion. C6, C7 myotome pattern of muscle weakness.Positive shoulder abduction/adduction. -Clinically probably has right brachial plexus involvement. MRI of brachial plexus on 06/03 revealed collection involving right subscapularis muscle- s/p I & D on 06/[address] Velazquez. -Continued PT daily, with strengthening exercise (encouraged patient to participate) patient counseled on the importance. -Neurology Dr. Cheek-MRI brain C spine no acute findings. -Venous Doppler RUE 05/28-negative for DVT -Psychiatric consultation-agrees patient is depressed, On Seroquel. Continue Zoloft 50mg daily -On morphine 4 mg IV every 3 hours as needed for breakthrough pain. RESP: Acute hypercapnic and hypoxemic respiratory failure Acute lung derecruitment 05/15 with hypoxia Healthcare associated pneumonia Tracheostomy fire pilot balloon damage (Shiley 6.0 Proximal XLT) s/p new trach placement 05/02 Chronic Respiratory Failure s/p Tracheostomy 4 years ago COPD/obesity hypoventilation syndrome History of pulmonary embolism 4 years ago Leukocytosis-resolved Pulmonary edema - Continue with vent support keep sat >90%. Currently on CPAP. Attempt TP/TC as beatriz - Pulm toilet, trach care - s/p Bronchoscopy 05/11 -follow up on BAL results negative - DuoNeb every 6 hours scheduled, q 2 prn. - Pulmicort BID (home med), Continue Singulair 10 mg po daily CV: CHF exacerbation Pulmonary edema Paroxysmal atrial fibrillation (chronic) Hyperlipidemia -Monitor HR and BP keep MAP>65mmHg -on Cardizem 90mg QID. Bumex to 1mg daily PO -Continue Lipitor 10 g by mouth daily. Continue TriCor 40 mg by mouth daily -Therapeutic Lovenox 150 mg twice a day (held for surgery 06/07, resume when OK with Ortho) GI: Super morbid obesity with BMI of 63 -Regular diet ,thin liquids per speech recs. -Liver US 06/03: Fatty liver, sludge in gall bladder, splenomegaly, no mechanical obstruction of bile duct noted. -On Pepcid 20mg BID -Multivitamin to medication regimen FEN/RENAL: - Monitor renal function , I/O. - Electrolytes replacement per protocol. - Bumex 1mg PO daily ID: Healthcare associated pneumonia Sepsis New fever MDRO Cellulitis right arm-resolved Leukocytosis-trending down Enterococcal faecalis bacteremia, Pseudomonas bacteremia (06/02, 06/03) -Rocephin (05/12- 05/25) -Blood culture: aerobic and anaerobic bottles - enterococcus faecalis, pseudomonas aeruginosa 06/02, 06/03 -Urine culture 06/02 pseudomonas aeruginosa Wound culture 06/02 pseudomonas aeruginosa Sputum culture 06/02 Pseudomonas -Urine cx: Proteus Mirabilis 05/05 -Sputum cx: Providencia 05/05- resolved -Wound cx: 05/13 Proteus, Pseudomonas, Group D Enterococcus -Wound culture Pseudomonas MDR 04/27 -Sputum culture-Pseudomonas MDR- 04/27 -Bronchoscopy and re-culture 05/10 follow up on BAL results-neg to date -Follow up on sputum cx from 05/15- NGTD -Continue abx per ID ( IV vancomycin, colistin nebs, Zerbaxa for MDR pseudomonas in blood cultures) MRI brachial plexus (06/03) revealed a collection involving right subscapularis muscle near right anterior axilla , possibly an abscess. Dr. Velazquez performed drainage of collection surgically on 06/07. HEME: History of PE on chronic anticoagulation with Xarelto Anemia, iron deficiency and anemia of critical illness. -Monitor CBC, -Xarelto for PE 4 yrs ago. -Xarelto.held, On therapeutic Lovenox 150 mg twice a day - (held for surgery - to be resumed if OK with Ortho). Lovenox 30mg [id number] on 06/08 -Ferrous sulfate 300 mg/q day ENDO: Hypothyroidism -On SSI (Low scale) -Continue levothyroxine 50 mcg po daily -Free T4 1.52 PROPH: -Bilateral lower extremity SCDs. Lovenox DVT therapeutic dose to be resumed when OK with Ortho. lovenox 30mg [id number] till cleared for full anticoagulation by Ortho. GI prophylaxis- Pepcid switched to Protonix on 06/07 LINES: - PICC line RUE- No DVT on US 05/02 - removed on 06/03. Out of bed with assistance. PT out of bed with vent. OT. Discussed with ORTHOTIC FITTER. Level 3 Jaquan Zelaya MD Jun 12, 2016 11:05
[2016-06-12] MEDS: POTASSIUM CHLORIDE 20 MEQ CONTROLLED RELEASE TAB PO SCH ×2 (12:56→21:04)
--- NOTE | 2016-06-12 14:17 | HHI.IDPN ---
Subjective Subjective Remarks Notes reviewed Temps ok Patient clinically stabel and doing well Doing well on CPAP Not SOB BP good No new (+) BC [place] changed 06/06 Has peripheral IV in place Operative note reviewed - looks more of hematoma, no purulence see, no C/S sent Antibiotics Colistin nebs Zerbaxa IV Vanco IV Lines PIVs Past Medical History Chronic Respiratory Failure s/p Tracheostomy 4 years ago Morbid Obesity w/ BMI 67.6 Atrial fibrillation Pulmonary embolism 4 years ago Anxiety CHF (Echo 06/07/2014 w/ EF 40-45%; ECHO 08/2015 showing a grossly normal systolic function) HTN Hypothyroidism Past Surgical History Tracheostomy Tonsillectomy Allergies: Coded Allergies: *MDRO Multi-Drug Resistant Organism (Verified Adverse Reaction, Unknown, 05/08/16) XDR Pseudomonas aeruginosa (sputum) - 09/18/15; (sputum & wound) - 04/27/16 Objective . Vital Signs Date Time Temp Pulse Resp B/P Pulse Ox O2 Delivery O2 Flow Rate FiO2 06/12/16 12:00 96 06/12/16 12:00 40 06/12/16 11:47 95 40 06/12/16 10:00 85 06/12/16 08:10 98 40 06/12/16 08:00 40 06/12/16 08:00 93 06/12/16 06:00 87 06/12/16 04:15 97 40 06/12/16 04:00 97.7 96 19 144/65 100 06/12/16 04:00 96 06/12/16 04:00 40 06/12/16 02:00 87 06/12/16 00:49 96 40 06/12/16 00:00 98.1 92 20 137/67 95 06/12/16 00:00 92 06/12/16 00:00 40 06/11/16 22:00 86 06/11/16 21:47 100 40 06/11/16 20:25 100 40 06/11/16 20:00 90 06/11/16 20:00 40 06/11/16 20:00 98.5 90 22 145/67 100 06/11/16 18:00 90 06/11/16 16:09 95 40 06/11/16 16:00 93 06/11/16 16:00 98.7 91 22 147/87 98 12/13/16 16:00 40 06/11/16 06/11/16 06/12/16 15:00 23:00 07:00 Intake Total 1015 ml 1157 ml 559 ml Output Total 1400 ml 300 ml 325 ml Balance -385 ml 857 ml 234 ml Intake Oral 680 ml 480 ml 360 ml IV Total 335 ml 677 ml 199 ml Output Urine Total 1400 ml 300 ml 325 ml # Bowel Movements 1 . Laboratory Tests Test 06/11/16 06/12/16 05:14 08:22 White Blood Count 12.2 TH/MM3 11.8 TH/MM3 Red Blood Count 3.25 MIL/MM3 3.48 MIL/MM3 Hemoglobin 8.1 GM/DL 8.6 GM/DL Hematocrit 26.8 % 28.4 % Mean Corpuscular Volume 82.3 FL 81.6 FL Mean Corpuscular Hemoglobin 24.8 PG 24.6 PG Mean Corpuscular Hemoglobin 30.2 % 30.1 % Concent Red Cell Distribution Width 24.6 % 24.0 % Platelet Count 324 TH/MM3 327 TH/MM3 Mean Platelet Volume 7.0 FL 7.1 FL Neutrophils (%) (Auto) 75.3 % 74.3 % Lymphocytes (%) (Auto) 14.6 % 16.2 % Monocytes (%) (Auto) 8.2 % 7.1 % Eosinophils (%) (Auto) 1.1 % 1.4 % Basophils (%) (Auto) 0.8 % 1.0 % Neutrophils # (Auto) 9.2 TH/MM3 8.8 TH/MM3 Lymphocytes # (Auto) 1.8 TH/MM3 1.9 TH/MM3 Monocytes # (Auto) 1.0 TH/MM3 0.8 TH/MM3 Eosinophils # (Auto) 0.1 TH/MM3 0.2 TH/MM3 Basophils # (Auto) 0.1 TH/MM3 0.1 TH/MM3 CBC Comment AUTO DIFF AUTO DIFF Differential Total Cells 100 100 Counted Neutrophils % (Manual) 68 % 57 % Band Neutrophils % 8 % 16 % Lymphocytes % 7 % 16 % Monocytes % 5 % 5 % Neutrophils # (Manual) 10.7 TH/MM3 9.2 TH/MM3 Metamyelocytes 1 % Myelocytes 11 % 5 % Differential Comment FINAL DIFF FINAL DIFF MANUAL MANUAL Platelet Estimate NORMAL NORMAL Platelet Morphology Comment NORMAL NORMAL Polychromasia 2.4 % Eosinophils % 1 % Toxic Granulation 1+ Tear Drop Cells 1+ Stomatocytes 1+ Laboratory Tests Test 06/11/16 06/12/16 05:14 08:22 Sodium Level 141 MEQ/L 140 MEQ/L Potassium Level 3.3 MEQ/L 3.4 MEQ/L Chloride Level 100 MEQ/L 97 MEQ/L Carbon Dioxide Level 34.2 MEQ/L 37.0 MEQ/L Anion Gap 7 MEQ/L 6 MEQ/L Blood Urea Nitrogen 6 MG/DL 6 MG/DL Creatinine 0.31 MG/DL 0.33 MG/DL Estimat Glomerular Filtration 335 ML/MIN 311 ML/MIN Rate Random Glucose 73 MG/DL 74 MG/DL Calcium Level 8.8 MG/DL 9.1 MG/DL Phosphorus Level 3.9 MG/DL 3.6 MG/DL Magnesium Level 1.6 MG/DL 1.6 MG/DL Imaging Chest X-Ray 06/03/16 0600 Signed Impressions: Service Date/Time: Friday, June 03, 2016 03:22 - CONCLUSION: 1. Cardiomegaly with bilateral pulmonary edema. 2. Moderate right pleural effusion. Vishnu Woodward MD Liver Ultrasound 06/03/16 0000 Signed Impressions: Service Date/Time: Friday, June 03, 2016 08:10 - CONCLUSION: 1. There is some sludge in the gallbladder. This can be seen with chronic gallbladder disease. 2. Fatty infiltration of the liver which appears to be enlarged. 3. No mechanical biliary tract obstruction. 4. Splenomegaly. Lázaro Frankel MD Brachial Plexus MRI 06/03/16 0000 Signed Impressions: Service Date/Time: Friday, June 03, 2016 12:42 - CONCLUSION: There is a complex multiloculated soft tissue and cystic mass measuring approximately 5.5 x 6.0 x 7.8 cm involving the subscapularis muscle along the anterior right scapula. The differential considerations include neoplastic disease, infection and hematoma. Recommend a CT scan of the right shoulder to pre-plan for CT-guided aspiration/biopsy of this abnormality. Lázaro Frankel MD Cervical Spine MRI 05/29/16 0000 Signed Impressions: Service Date/Time: Sunday, May 29, 2016 13:51 - CONCLUSION: Limited study but appears normal. Vishnu Woodward MD Brain MRI 05/29/16 0000 Signed Impressions: Service Date/Time: Sunday, May 29, 2016 13:51 - CONCLUSION: 1. Focal chronic ischemic change in the high right frontal parietal convexity stable from previous CT scan. 2. No acute intracranial abnormality. 3. Minimal nonspecific white matter changes. Vishnu Woodward MD Upper Extremity Ultrasound 05/28/16 0000 Signed Impressions: Service Date/Time: Saturday, May 28, 2016 10:16 - CONCLUSION: 1. Negative for deep venous thrombosis. Venous line noted in cephalic, subclavian and internal jugular vein. Horacio Gupta MD Abdomen X-Ray 04/29/16 0000 Signed Impressions: Service Date/Time: Friday, April 29, 2016 07:12 - CONCLUSION: Suspect Dobbhoff tube in the distal stomach. Garcia Lujan MD Chest X-Ray 05/20/16 0000 Signed Impressions: Service Date/Time: Friday, May 20, 2016 03:21 - CONCLUSION: Persistent mid and lower lung areas of consolidation or atelectasis being worse in the right. There has been mild improvement. Garcia Lujan MD Chest X-Ray 05/16/16 06 Signed Impressions: Service Date/Time: April 03:21 - CONCLUSION: 1. Slight improvement in bilateral airspace disease over the last day. Horacio Gupta MD Chest X-Ray 05/15/16 06 Signed Impressions: Service Date/Time: Sunday, May 15, 2016 04:31 - CONCLUSION: 1. Slight increase in airspace disease since May 13. Differential diagnosis includes pulmonary edema. Support apparatus unchanged. Horacio Gupta MD Chest X-Ray 05/13/16 06 Signed Impressions: Service Date/Time: Friday, May 13, 2016 03:26 - CONCLUSION: 1. Stable exam compared with May 12 with bilateral mostly basilar airspace disease. Horacio Gupta MD Chest X-Ray 05/10/16 06 Signed Impressions: Service Date/Time: Tuesday, May 10, 2016 02:45 - CONCLUSION: Worsening right lower lobe infiltrate. Jeremiah Walton Jr., MD Chest X-Ray 05/09/16 06 Signed Impressions: Service Date/Time: April 02:52 - CONCLUSION: No significant change has occurred. Bill Zavala MD Chest X-Ray 05/08/16 0600 Signed Impressions: Service Date/Time: Sunday, May 08, 2016 04:01 - CONCLUSION: No significant change has occurred. Bill Zavala MD Chest X-Ray 05/05/16 0600 Signed Impressions: Service Date/Time: Thursday, May 05, 2016 01:56 - CONCLUSION: Improved aeration bilaterally particularly in the left upper lobe. Tube and catheter are stable. Amador Brock MD Chest X-Ray 05/03/16 0000 Signed Impressions: Service Date/Time: Tuesday, May 03, 2016 06:40 - CONCLUSION: Increasing bilateral diffuse pulmonary infiltrates compared to the prior study. Lázaro Frankel MD Upper Extremity Ultrasound 05/02/16 0000 Signed Impressions: Service Date/Time: April 20:51 - CONCLUSION: No DVT. Garcia Lujan MD Abdomen X-Ray 04/29/16 0000 Signed Impressions: Service Date/Time: Friday, April 29, 2016 07:12 - CONCLUSION: Suspect Dobbhoff tube in the distal stomach. Garcia Lujan MD Physical Exam GENERAL: Awake and alert, on CPAP, NAD SKIN: Warm and moist. No generalized rash. HEENT: [place] conjunctivae. Full EOM. No scleral icterus. Moist mucosa. NECK: Trach, site ok. Supple, no meningeal signs. CARDIOVASCULAR: Regular rate and rhythm. Distant heart sounds. RESPIRATORY: Decreased BS bilaterally. GASTROINTESTINAL: Abdomen soft, morbidly obese, not tender, not distended. MUSCULOSKELETAL: Extremities without clubbing, cyanosis. Has mild pitting edema. Incision is dry NEUROLOGICAL: Awake and following, responding : [place] in place, urine looks clear Assessment & Plan Remarks IMPRESSION E.faecalis and Pseudomonas bacteremia: from PICC line site with fevers: Central line associated blood stream infection(CLABSI). - PICC removed - repeat BC negative Scapular areas fluid collection, looks more of hematoma than abscess, no C/S sent MDR PSAE PNA, S/P Rx PSAE in urine: likely colonization or translocation of bacteria from PSAE bacteremia. - now with Enterococcus in UC Morbid obesity Sleep apnea Hx PE Anorexia RECOMMENDATION Continue Vanco IV (target trough 15-20) Continue Zerbaxa IV (ASP: has known MDR PSAE and now has bacteremia.) Continue Colistin nebs. - Will only suppress organism with Colistin given prior MDR and clinically stable at this point. Follow cultures If no other (+) BC, plan 14 days of Abx Monitor progress Weaning per CCM as tolerated Dana Tam MD Jun 12, 2016 14:17
--- NOTE | 2016-06-12 15:51 | HHI.FPPN ---
Subjective Remarks POD5 debridement RUE abscess 06/07. No acute events overnight Afebrile. Borderline hypertensive to 145/70. Tolerating CPAP via trach- PEEP8 FIO2 40%. O2 saturation 94-97%. Good UOP Voiding via catheter. OOB w assistance. Bandage R lateral malleolus, Bandage RUE, and trach c/d/i. SCD L calf. Feels "same" as yesterday. Nausea primary concern. Describes dull pain, worse after meals, in morning and evening. +Diarrhea. States he has had this "always". Denies fevers/chills, CP/palpitations, worsening SOB, calf pain. (Holley Baires MD R1) Objective Vitals Vital Signs Date Time Temp Pulse Resp B/P Pulse Ox O2 Delivery O2 Flow Rate FiO2 06/12/16 15:13 99 40 06/12/16 14:00 87 06/12/16 12:00 96 06/12/16 12:00 40 06/12/16 11:47 95 40 06/12/16 10:00 85 06/12/16 08:10 98 40 06/12/16 08:00 40 06/12/16 08:00 93 06/12/16 06:00 87 06/12/16 04:15 97 40 06/12/16 04:00 97.7 96 19 144/65 100 06/12/16 04:00 96 06/12/16 04:00 40 06/12/16 02:00 87 06/12/16 00:49 96 40 06/12/16 00:00 98.1 92 20 137/67 95 06/12/16 00:00 92 06/12/16 00:00 40 06/11/16 22:00 86 06/11/16 21:47 100 40 06/11/16 20:25 100 40 06/11/16 20:00 90 06/11/16 20:00 40 06/11/16 20:00 98.5 90 22 145/67 100 06/11/16 18:00 90 06/11/16 16:09 95 40 06/11/16 16:00 93 06/11/16 16:00 98.7 91 22 147/87 98 06/11/16 16:00 40 I/O 06/11/16 06/11/16 06/11/16 06/12/16/14/16 12/14/16 07:00 15:00 23:00 07:00 15:00 23:00 Intake Total 449 ml 1015 ml 1157 ml 559 ml Output Total 325 ml 1400 ml 300 ml 325 ml Balance 124 ml -385 ml 857 ml 234 ml Intake Oral 240 ml 680 ml 480 ml 360 ml IV Total 209 ml 335 ml 677 ml 199 ml Output Urine Total 325 ml 1400 ml 300 ml 325 ml # Bowel Movements 1 (Holley Baires MD R1) Result Diagram: 06/12/1682106/12/16821 Imaging see A/P for pertinent positives Objective Remarks GEN: Morbidly obese male in NAD. DERM: Warm and dry. Nails bitten down Yellow/blue ecchymosis periumbilical region and R pannus. No erythema or skin breakdown appreciated. Numerous skin folds 2/2 habitus. Bandage R lateral malleolus c/d/i. Bandage RUE c/d/i. HEENT: Tracheotomy site c/d/i. Poor dentition. PERRL. EOMI. CV: Distant heart sounds. RRR. Normal peripheral perfusion. RESP: T-piece in place. Transmitted upper respiratory sounds. No wheezing GI: Abdomen soft, obese, non-tender. +BS MSK: External rotation of RLE. LE edema 2+ bilaterally. No calf tenderness NEURO: CN grossly normal Can move fingers RUE, but unable to move against gravity. Can lift LUE to chest, but not face. Procedures 04/24- Started ventilation 05/02- Emergency Trach Exchange 06/03- PICC line removed 06/07- Debridement of RUE abscess (Dr. Velazquez), RUE drain 06/10- RUE drain removal (Holley Baires MD R1) Date of Insertion: Apr 24, 2016 (Holley Baires MD R1) A/P Assessment and Plan 31y male w chronic respiratory failure s/p tracheostomy 4y ago and Pickwickian hypoventilation syndrome (BMI 60+) presents with [id number] hypoxia, tracheostomy seal leak, and PNA. Discharge Planning Uncertain, pending weaning from mechanical ventilation with stable clinical status and workup of R shoulder mass. Ideally, return to long-term rehab facility. 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 Orthopedics, Critical care, ID, Psych, Neurology, IR, PT/OT, Gen Surgery, Rehabilitation consulted. Appreciate recommendations. (Holley Baires MD R1) Attending Attestation Patient case discussed with resident physicians I have read the above note and agree with the assessment/plan as discussed with me I was involved in all medical decision making for this patient Lázaro Rogers M.D (Lázaro Rogers MD) Problem List: (1) Diarrhea Status: Acute Plan: - C. diff toxin pending - Stool studies pending Impresion: Not overly foul smelling, but some concern for C. diff due to extended hospital course and recent antibiotic use. Chronicity unknown. Pt states "always" had, but acute to the best of our knowledge. (2) Mass of soft tissue of right upper extremity Status: Acute Plan: - Likely hematoma: "fragments of blood clot admixed with few minute fragments of adipose and skeletal muscle tissue" - Daily dressing changes with xeroform and primapore - Daily PT/OT, as tolerated. Goal: RUE strength and self-feeding - Continue Abx (see bactermia) Impression: Hematoma indicative of conservative management to treat. Per surgical note R subscapularis I&D w Dr. Velazquez (06/07) no mass or purulent collection identified- only small area of hematoma. Lack of clinical correlatation w 6cm x 6cm x 8cm abscess imaged by MRI brachial plexus. At baseline, pt could transfer to wheelchair and feed self. Now unable to do this. Increasing suspicion for C6/C7 neuropathy 2/2 morbid obesity and positioning. DVT, L hemispheric pathology, and seizure r/o w imaging (see below ). EMG scheduled, not performed as pt de-saturated to 80[address] on attempt. CT- guided biopsy was not feasible per IR. Imaging: - US negative for DVT (05/28) - MRI brain (04/28) no acute intracranial process - MRI C-spine (05/29): grossly wnl - EEG (05/29): diffuse mild encephalopathy vs normal Stage 2 sleep - MRI brachial plexus (06/03): "Complex multiloculated soft tissue and cystic mass 5.5 x 6 x 7.8 cm involving subscapularis muscle along anterior R scapula - Pathology report (06/07): fragments of blood clot admixed with few minute fragments of adipose and skeletal muscle tissue (3) Bacteremia Status: Acute Plan: - ID consulted for management, recommendations appreciated -14 days abx, provided no additional +BCx - Vancomycin 2000mg IV daily goal trough 15-20, (06/03 -- ) D#10 - Zerbaxa IV q8h (06/05-- ) D#8 - Colistin 75mg q8h NEB - Acetaminophen 325mg PRN fever Impression: Resolving, with decreasing leukocytosis. Afebrile .+Blood, sputum, urine cx (06/03):Pseudomonas aeruginosa and Enterococcus faecalis. Thought sepsis via PICC infection. Repeat BCx 06/06 negative. However, UCx 06/06: +Group D Enterococcus. Serial CXRs grossly unchanged: cardiomegaly w b/l pulm edema and R pleural effusion. Abx History Zosyn 4.5gm IV q6h (04/24 - 04/29) Levaquin 750mg IV q24h (04/24-04/30) Zerbaxa 1.5 g IV q8h (04/29 - 05/07) Vancomycin IV (04/24 - 05/06) Ceftriaxone IV (05/07 - 05/25) Linezolid 600 mg PO BID (05/06 - 05/13) Vancomycin (06/03-- ) Zosyn 3.375 q6h (06/04- 06/05) Zerbaxa (ceftozolane/tazobactam) (06/05 --) (4) Paroxysmal a-fib Status: Chronic Plan: - Lovenox 150mg IV BID, per critical care Impression: Therapeutic Lovenox held for surgery 06/07. DVT prophylaxis re- initiated 06/08. Returned to therapeutic Lovenox 06/11. Home home Xarelto. EKG 05/17: sinus rhythm (5) On mechanically assisted ventilation Status: Acute Plan: - Will discuss with case management [employer] operator care plans - Appreciate respiratory recommendations - CPAP (PS 12, PEEP 8, FiO2 40%) via trach. Advance to TC/TP, as tolerated - Pulmicort BID REYES - Duonebs q2h PRN - Singulair 10mg daily Impression: Weaning from vent appears to have hit plateau- longterm plans for dispo? Acute on chronic hypoxemic respiratory failure secondary to HCAP ( resolved) and tracheostomy leak (s/p exchange 05/02). Baseline 6L NC at rehab. Mechanical ventilation initiated 04/24. Solumedrol (05/10-06/03) (6) CHF (congestive heart failure) Status: Chronic Plan: - Bumex 1mg PO daily + 40 KCl BID - 1.5L fluid restriction, monitor I/Os, monitor renal function, peripheral edema Impression: Suspected HF with poor EF, though unable to confirm via ECHO () due to poor imaging. Unknown EF. BNP was 400 decreased to 10. (7) Hypertension Status: Chronic Plan: - Cardiazem 90mg QID - Labetalol 10mg IV PRN SBP 160+ (8) Nausea Status: Chronic Plan: - Tums 2 PRN stomach ache. - Zofran 4mg PO q6h PRN - Compazine 5mg ACMeals PRN - Protonix 20mg BID Impression: Chronic. Ddx: GERD vs psychosomatic vs impaired gastric emptying vs medication side effect. (9) Stable medical conditions Status: Chronic Plan: HYPERLIPIDEMIA -Atorvastatin 10mg daily and Tricor 48mg daily NORMOCYTIC ANEMIA - Ferrous sulfate 325mg PO daily - Multivitamin 1 tab PO daily MDD: - Pt reports stable mood; some anhedonia suspected. Previously, refusing meals , shower, PT - Sertraline 100 mg PO daily - Seroquel 100mg HS INSOMNIA -Zolpidem 5mg HS PRN GOUT -Allopurinol 300mg daily HYPOTHYROIDISM 08/2015- TSH low, free T4 grossly wnl (05/27/16) -Synthroid 50 mcg PO daily FUNGAL INFECTION -Nystatin powder and miconazole creme to skin folds MORBID OBESITY WITH BMI 60-69 -see above plan for mechanical ventilation RESOLVED CONDITIONS THIS HOSPITAL VISIT - Cellulitis of Chest Wall: completed course linezolid (05/06-05/13), per ID recs - Yeast UTI: completed course Diflucan. UCx 05/01: Dionne albicans. Repeat UCx 05/05: Proteus Mirabilis - HCAP: s/p multiple abx (10) Nutrition, metabolism, and development symptoms Status: Acute Plan: FEN: Fluids: PO (Limited to 1.5L/day PO) Electrolytes: 40KCl BID. Chronically hypokalemic, replete per protocol Nutrition: 2Kcal heart healthy diet. Transitioned to oral feeds (05/29). Needs help with feeding. Wt loss stagnated consider further calorie restriction. PPX: GI ppx: Protonix 20mg BID DVT ppx: Lovenox 150mg BID Pain: Oxycodone 7.5/325 q4h PRN Bowels: Senna 1 tab HS PRN Wt: Admission: 480 lbs. Wt 06/07 ~445 lbs. Continue monitor, encourage, modify/restrict diet, as appropriate DW: Dr Rogers SDW: Dr Anderson (Holley Baires MD R1) Problem Qualifiers (1) CHF (congestive heart failure): Qualified Code: I50.9 - Acute on chronic congestive heart failure, unspecified congestive heart failure type (2) Hypertension: Qualified Code: I10 - Essential hypertension Holley Baires MD R1 Jun 12, 2016 15:50 Lázaro Rogers MD Jun 12, 2016 17:04
[2016-06-12] MEDS ORDERED: CALCIUM CARBONATE 500 MG CHEWABLE TAB CHEW PRN (16:30)
[2016-06-12] MEDS ORDERED: PROCHLORPERAZINE MALEATE 5 MG TAB PO PRN (17:00)
[2016-06-12 20:43] LABS: C. DIFF EPI 027 PRESUMPTIVE NEGATIVE (NEGATIVE); C. DIFF TOXIN PCR NEGATIVE (NEGATIVE)
[2016-06-12] MEDS: ZOLPIDEM TARTRATE 5 MG TAB PO PRN (21:04)
[2016-06-12] MEDS: QUEtiapine FUMARATE 100 MG TAB PO SCH (21:05)
[2016-06-13] VITALS (19 sets, daily range): BP systolic 138–150; BP diastolic 64–70; PULSE 88–101; RESP 20–37; TEMP 97.6–98.7; O2SAT 91–97
[2016-06-13] MEDS: VANCOMYCIN INJ 2,000 MG in SODIUM CHLORID 0.9% 500 ML INJ 500 ML IV SCH (00:19)
[2016-06-13] MEDS ORDERED: PHARMACY ORDERED LAB XX ONE (01:45)
[2016-06-13] MEDS: CEFTOLOZANE-TAZOBACTAM INJ 1,500 MG in SODIUM CHLORIDE 0.9% INJ 100 ML IV SCH ×3 (02:43→19:34)
[2016-06-13 04:52] LABS: HEMATOCRIT 23.7 % (39.0-51.0); MEAN CELL VOLUME 82.7 FL (80.0-100.0); MEAN CORPUSCULAR HEMOGLOBIN 24.9 PG (27.0-34.0); MEAN CORPUSCULAR HGB CONC 30.1 % (32.0-36.0); PLATELET COUNT 280 TH/MM3 (150-450); RED BLOOD COUNT 2.86 MIL/MM3 (4.50-5.90); RED CELL DISTRIBUTION WIDTH 23.8 % (11.6-17.2); WHITE BLOOD COUNT 12.7 TH/MM3 (4.0-11.0)
[2016-06-13 04:57] LABS: REVIEW FLAG FINAL
[2016-06-13 05:20] LABS: BICARBONATE 34.3 MEQ/L (21.0-32.0); POTASSIUM 3.3 MEQ/L (3.5-5.1)
[2016-06-13] MEDS: LEVOTHYROXINE SODIUM 50 MCG TAB PO SCH (05:37)
[2016-06-13] MEDS: POTASSIUM CL 40 MEQ/30 ML LIQ UDC PO/TUBE PRN (06:52)
[2016-06-13] MEDS: RESP: COLISTIN 150 MG VIAL NEB SCH ×3 (08:52→23:30)
[2016-06-13] MEDS: RESP: BUDESONIDE 0.5 MG/2 ML NEB NEB SCH ×2 (08:52→19:28)
[2016-06-13] MEDS: CHLORHEXIDINE 0.12% (ORAL KIT) 15 ML CUP MT SCH ×2 (09:07→19:34)
[2016-06-13] MEDS: ATORVASTATIN 10 MG TAB PO SCH (09:08)
[2016-06-13] MEDS: SODIUM CHLORIDE 0.9% FLUSH 5 ML FLUSH IVF SCH ×2 (09:08→19:34)
[2016-06-13] MEDS: MULTIVITAMIN TAB PO SCH (09:08)
[2016-06-13] MEDS: FERROUS SULFATE 325 MG (65 MG ELEMENTAL IRON) TAB PO SCH (09:08)
[2016-06-13] MEDS: ALLOPURINOL 300 MG TAB PO SCH (09:08)
[2016-06-13] MEDS: PANTOPRAZOLE SOD 20 MG DELAYED RELEASE TAB PO SCH ×2 (09:08→20:22)
[2016-06-13] MEDS: ONDANSETRON ODT 4 MG TAB PO PRN ×2 (09:08→20:22)
[2016-06-13] MEDS: BUMETANIDE 1 MG TAB PO SCH (09:09)
[2016-06-13] MEDS: FENOFIBRATE 48 MG TAB PO SCH (09:09)
[2016-06-13] MEDS: SERTRALINE HCL 100 MG TAB PO SCH (09:09)
[2016-06-13] MEDS: DILTIAZEM HCL 90 MG TAB PO SCH ×4 (09:09→20:22)
[2016-06-13] MEDS: MONTELUKAST SODIUM 10 MG TAB PO SCH (09:09)
[2016-06-13] MEDS: NYSTATIN 100,000 U/GM PWD 15 GM BTL TOPICAL SCH ×2 (09:11→19:35)
[2016-06-13] MEDS: ENOXAPARIN SODIUM 150 MG/ML SYRINGE SQ SCH ×2 (09:11→20:22)
[2016-06-13] MEDS: COLLAGENASE OINT 30 GM TUBE TOP SCH (09:12)
[2016-06-13] MEDS: MICONAZOLE NITRATE 2% CREAM 15 GM TOP SCH ×2 (09:12→19:34)
[2016-06-13] MEDS: POTASSIUM CHLORIDE 20 MEQ CONTROLLED RELEASE TAB PO SCH ×2 (11:15→22:11)
--- NOTE | 2016-06-13 14:00 | HHI.FPPN ---
Subjective Remarks No acute events overnight. Afebrile. Borderline hyptensive at 145/70. Tolerating CPAP via trach- PEEP5 FIO2 40%. O2 saturation 92-94%. Good UOP Voiding via catheter. Denies further diarrhea. OOB w assistance. Bandage R lateral malleolus, Bandage RUE, and trach c/d/i. SCD L calf. B/P cuff R calf. Requests help with trach suctioning. Nausea and stomach pain primary concern. Feels it is "a little" better than yesterday. Denies fevers/chills, emesis, SOB , CP/palpitations, calf pain (Holley Baires MD R1) Objective Vitals Vital Signs Date Time Temp Pulse Resp B/P Pulse Ox O2 Delivery O2 Flow Rate FiO2 06/13/16 12:00 40 06/13/16 12:00 97.7 88 37 91 06/13/16 12:00 88 06/13/16 11:32 91 40 06/13/16 10:00 101 06/13/16 08:53 92 40 06/13/16 08:00 92 06/13/16 08:00 40 06/13/16 08:00 97.6 92 24 150/69 93 06/13/16 06:00 100 06/13/16 04:34 94 40 06/13/16 04:00 97.9 94 27 148/68 94 06/13/16 04:00 40 06/13/16 04:00 94 06/13/16 02:00 89 06/13/16 01:13 94 40 06/13/16 00:00 98.7 95 147/70 92 06/13/16 00:00 40 06/13/16 00:00 95 06/12/16 22:10 97 40 06/12/16 22:00 91 06/12/16 20:00 89 06/12/16 20:00 89 27 148/68 96 06/12/16 20:00 40 06/12/16 19:39 96 40 06/12/16 18:00 96 06/12/16 16:00 85 06/12/16 16:00 98.1 87 18 158/73 98 06/12/16 16:00 40 06/12/16 15:13 99 40 I/O 12/14/16 12/1406/12/16 06/13/16 06/13/16 06/13/16 06:59 14:59 22:59 06:59 14:59 22:59 Intake Total 559 ml 856 ml 321 ml 1278 ml Output Total 325 ml 2300 ml 325 ml 350 ml Balance 234 ml -1444 ml -4 ml 928 ml Intake Oral 360 ml 240 ml 480 ml IV Total 199 ml 856 ml 81 ml 798 ml Output Urine Total 325 ml 2300 ml 325 ml 350 ml # Bowel Movements 1 2 1 (Holley Baires MD R1) Result Diagram: 06/13/1632606/13/16326 Imaging see assessment and plan for pertinent positives Objective Remarks GEN: Morbidly obese male in NAD. DERM: Warm and dry. Nails bitten down Yellow/blue ecchymosis periumbilical region and R pannus. No erythema or skin breakdown appreciated. Numerous skin folds 2/2 habitus. Bandage R lateral malleolus c/d/i. Bandage RUE c/d/i. HEENT: Tracheotomy site c/d/i. Poor dentition. PERRL. EOMI. CV: Distant heart sounds. RRR. Normal peripheral perfusion. RESP: Transmitted upper respiratory sounds. No wheezing GI: Abdomen soft, obese, non-tender. +BS MSK: External rotation of RLE. LE edema 2+ bilaterally. No calf tenderness NEURO: CN grossly normal Can move fingers RUE, but unable to move against gravity. Can lift LUE to face. Procedures 04/24- Started ventilation 05/02- Emergency Trach Exchange 06/03- PICC line removed 06/07- Debridement of RUE abscess (Dr. Velazquez), RUE drain 06/10- RUE drain removal (Holley Baires MD R1) Date of Insertion: Apr 24, 2016 (Holley Baires MD R1) A/P Assessment and Plan 31y with super morbid obesity, [id number] respiratory failure, tracheostomy seal leak, and HCAP Discharge Planning Days to weeks, pending weaning from mechanical ventilation. Ideally, return to home 2L ND and long-term rehab facility. 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 (Holley Baires MD R1) Attending Attestation Pt. personally examined and case discussed with resident physician I have read the above note and agree with the assessment/plan as discussed with me I was involved in all medical decision making for this patient Lázaro Rogers MD (áLzaro Rogers MD) Problem List: (1) Diarrhea Status: Acute Plan: - Continue to monitor Impression: Improved. Negative C. diff PCR. Likely secondary to food intolerance or medication side effect. Chronicity unknown. Pt states "always" had, but new ailment to team. (2) Hematoma Status: Acute Plan: - Daily dressing changes with xeroform and primapore - Daily PT/OT, as tolerated. PT targeting RUE weakness. - Continue Abx (see bactermia) Impression: Hematoma contributing to RUE weakness x4 weeks. S/p I&D by Dr. Velazquez (06/07). Small hematoma found during procedure inconsistent with 6cm x 6cm x 8cm abscess suggested by MRI brachial plexus. Ddx for RUE weakness includes hematoma vs C6/C7 neuropathy from morbid obesity and positioning. DVT, L hemispheric pathology, and seizure as causes RUE ruled out (see below). EMG scheduled, not performed as pt de-saturated to 80s on attempt. Could re- consider if RUE not improve s/p I&D and physical therapy. Imaging: - US negative for DVT (05/28) - MRI brain (04/28) no acute intracranial process - MRI C-spine (05/29): grossly wnl - EEG (05/29): diffuse mild encephalopathy vs normal Stage 2 sleep - MRI brachial plexus (06/03): "Complex multiloculated soft tissue and cystic mass 5.5 x 6 x 7.8 cm involving subscapularis muscle along anterior R scapula - Pathology report (06/07): fragments of blood clot admixed with few minute fragments of adipose and skeletal muscle tissue (3) Bacteremia Status: Acute Plan: - Vancomycin 2000mg IV daily goal trough 15-20, (06/03 -- ) D#11 (at least 14 days, per ID) - Zerbaxa IV q8h (06/05-- ) D#9 - Colistin 75mg q8h NEB - Acetaminophen 325mg PRN fever - Trend CBC, CMP daily Impression: Pseudomonas aeruginosa and Enterococcus faecalis bacteremia secondary to PICC infection vs HCAP. Repeat BCx 06/06 negative (compared to positive 06/03 culture). However, UCx 06/06 grew +Group D Enterococcus. Pt asymptomatic for urinary symptoms. Has willard placed. Likely colonized. Serial CXR show cardiomegaly w b/l pulm edema and R pleural effusion. Abx History Zosyn 4.5gm IV q6h (04/24 - 04/29) Levaquin 750mg IV q24h (04/24-04/30) Zerbaxa 1.5 g IV q8h (04/29 - 05/07) Vancomycin IV (04/24 - 05/06) Ceftriaxone IV (05/07 - 05/25) Linezolid 600 mg PO BID (05/06 - 05/13) Zosyn 3.375 q6h (06/04- 06/05) Vancomycin (06/03-- ) Zerbaxa (ceftozolane/tazobactam) (06/05 --) (4) Paroxysmal a-fib Status: Chronic Plan: - Lovenox 150mg IV BID, per critical care - H/H downtrended. Continue to monitor and adjust Lovenox, as needed, if cause of worsening anemia. Impression: Held for surgery 06/07. DVT ppx re-initiated 06/08. Returned to therapeutic Lovenox 06/11. Home home Xarelto. EKG 05/17: sinus rhythm (5) On mechanically assisted ventilation Status: Acute Plan: - CPAP (PS 12, PEEP 5, FiO2 40%) via trach. Advance to TC/TP, as tolerated. 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 Acute on chronic hypoxemic respiratory failure secondary to HCAP ( resolved) and tracheostomy leak (s/p exchange 05/02). Baseline 6L NC at rehab. Mechanical ventilation initiated 04/24. Solumedrol (05/10-06/03) (6) CHF (congestive heart failure) Status: Chronic Plan: - Bumex 1mg PO daily + 40 KCl BID - 1.5L fluid restriction, monitor I/Os, monitor renal function, peripheral edema Impression: Suspected HF with poor EF, though unable to confirm via ECHO () due to poor imaging. Unknown EF. BNP elevated, downtrended to wnl. (7) Hypertension Status: Chronic Plan: - Cardiazem 90mg QID - Labetalol 10mg IV PRN SBP 160+ (8) Nausea Status: Chronic Plan: - Tums 2 PRN nausea/stomach pain - Zofran 4mg PO q6h PRN - Compazine 5mg TID PRN - Protonix 20mg BID Impression: Chronic. Ddx: GERD vs psychosomatic vs impaired gastric emptying vs medication side effect. (9) Stable medical conditions Status: Chronic Plan: HYPERLIPIDEMIA -Atorvastatin 10mg daily and Tricor 48mg daily NORMOCYTIC ANEMIA - Ferrous sulfate 325mg PO daily - Multivitamin 1 tab PO daily MDD: - Pt reports stable mood; some anhedonia suspected. Previously, refusing meals , shower, PT - Sertraline 100 mg PO daily - Seroquel 100mg HS INSOMNIA -Zolpidem 5mg HS PRN GOUT -Allopurinol 300mg daily HYPOTHYROIDISM 08/2015- TSH low, free T4 grossly wnl (05/27/16) -Synthroid 50 mcg PO daily FUNGAL INFECTION -Nystatin powder and miconazole creme to skin folds MORBID OBESITY WITH BMI 60-69 -see above plan for mechanical ventilation RESOLVED CONDITIONS THIS HOSPITAL VISIT - Cellulitis of Chest Wall: completed course linezolid (05/06-05/13), per ID recs - Yeast UTI: completed course Diflucan. UCx 05/01: Dionne albicans. Repeat UCx 05/05: Proteus Mirabilis - HCAP: s/p multiple abx (10) Nutrition, metabolism, and development symptoms Status: Acute Plan: FEN: Fluids: PO (Limited to 1.5L/day PO) Electrolytes: 40KCl BID. Chronically hypokalemic, replete per protocol Nutrition: 2Kcal heart healthy diet. Transitioned to oral feeds (05/29). Needs help with feeding. Wt loss stagnated consider further calorie restriction. PPX: GI ppx: Protonix 20mg BID DVT ppx: Lovenox 150mg BID Pain: Oxycodone 7.5/325 q4h PRN Bowels: Senna 1 tab HS PRN Wt: Admission: 480 lbs. Wt 12/9 ~445 lbs. Continue monitor, encourage, modify/restrict diet, as appropriate SDW: Dr Rogers (Holley Baires MD R1) Problem Qualifiers (1) CHF (congestive heart failure): Qualified Code: I50.9 - Acute on chronic congestive heart failure, unspecified congestive heart failure type (2) Hypertension: Qualified Code: I10 - Essential hypertension Holley Baires MD R1 Jun 13, 2016 14:00 Lázaro Rogers MD Jun 13, 2016 20:26
--- NOTE | 2016-06-13 14:07 | HHI.CCPN ---
Subjective Remarks/Hospital Course 31 year old morbidly obese (BMI 68) male with chronic respiratory failure s/p tracheostomy 4 years ago, atrial fibrillation and pulmonary embolism on Xarelto , COPD, CHF and h/o HTN. He presented from [facility] with low oxygen saturation apparently his oxygen saturation was 82% on RA. He was placed back on 6L of oxygen via his trach mask and given a breathing treatment, initially improved however he started drifting back to low 80s again. Chest x-ray showed bibasilar infiltrates and pulmonary edema. [facility] and was started on IV steroids IV vancomycin and Zosyn and Levaquin for healthcare associated pneumonia. After starting ACV, patient was more awake but there was a significant amount of air leak around his tracheostomy. Patient has had a Shiley 6.0 Proximal XLT, but the ferry pilot balloon had been cut off. 05/02 the patient became acutely hypoxemic with a large cuff leak, underwent emergency trach exchange at bedside by Dr. Macias. FiO2 65% PEEP 14 05/13 Patient is on ventilator via trach, on Fentanyl infusion however he is awake and alert. On PRVC with FIO2 40%. Afebrile. 05/14 No acute events overnight. Tmax 99.8. Patient is awake, alert on ventilator via trach still requiring increase O2. On PRVC with PEEP: 10 and FIO2 70%. 05/15 patient acutely desaturated after he was found. Saturation went down to 70% on 100% oxygen. Bag and mask ventilation carried out, with eventual improvement on oxygen saturation to 85%. Patient was placed on PC/AC mode of ventilation, with PEEP of 15 and instructed to pressure of 30. Eventually oxygen saturation improved to 95%. Lasix him today as the chest x-ray from today shows increasing bilateral infiltrate and pulmonary edema. Also sputum culture will be sent 05/16 Patient is on Fentanyl and Diprivan infusion but awake and alert. Afebrile. On PC/AC with PEEP:15, IP: 22, IT:1.3 and FIO2 50% 05/17 Patient is off Diprivan and remains on Fentanyl infusion for sedation. On PC/AC with PEEP: down 10 and FIO2 40%. Afebrile. 05/18 Patient remains on ventilator via trach on PC/AC with PEEP:12, FIO2 40%, IP:22, IT:1.0. On Fentanyl infusion 05/19 No acute events overnight. On Fentanyl infusion but awake and alert. Afebrile. 05/20 Tolerating C Pap 17/12 FIO2 40, sats 98%. RSBI in 20s, appears can be weaned further. Afebrile. Speech therapy evaluated and ok for regular diet. Starting with full liquid. 05/21 Will wean PSV to 15/10. Tolerated full liquids, will advance to regular diet per speech recs. Subjective: 05/22 On PSV 15/10 FIO2 40 with sats 92%. Smiling today. Glad to be eating regular food again. 05/23 No acute events overnight. Remains on CPAP with PS 15, PEEP:10 and FIO2 40 %. Afebrile. Off Fentanyl drip. Afebrile. Awake and alert. 05/24 Patient is on CPAP 06/06 with 40% FIO2. Afebrile. Awake and alert, on no sedation. 05/25 No acute events overnight. Patient was placed back on PC/AC overnight. Tolerated CPAP trials during day yesterday. Awake and alert. On no drips. Afebrile. 05/26 Afebrile. Tmax 98.6. Today the patient complained of nausea requiring Zofran. The patient has a lack of an appetite, with noted hypoglycemia early this a.m. blood glucose level 69. Patient tolerating CPAP well greater than 12 hours in the last 24 hours. 05/27 The patient tolerated CPAP for over 36 hours, O2 sat a knee 94% on FIO2 40 %. The patient had an increase in appetite. The patient continues on full liquid diet. 05/28 The patient declined physical therapy treatment, yesterday and also overnight declined to be moved by nursing staff. The patient refused dinner last evening, of note patient was reevaluated by speech therapy and can consume a heart healthy diet with thin liquids. The patient continues on physical therapy for strengthening exercises of all extremities specifically noted right upper extremity continues to be weak with gross fibrillations noted in hand and forearm. 05/29 Afebrile. No change in right upper extremity weakness. The patient was seen by neurology yesterday plan for MRI today if possible in hospital MRI, and EMG studies. No complaints overnight. Patient continues to refuse to have activities performed, movement in bed. The patient appears to be depressed, psychiatry consulted. 05/30: Patient alert awake on CPAP. Following commands. Psych agrees the patient is depressed. MRI brain no acute findings 05/31: Awake alert. on PS 15/8. EMG could not be completed due to patient becoming anxious. Otherwise no acute events reported overnight 06/01: Remains PS from 15/8. Right upper extremity weakness persists. EMG to be repeated on Friday. Will need MRI of the brachial plexus. Chest x-ray is unchanged 06/02: States that "not feeling well". Febrile to 101.5. White count increasing but still within the normal range. Pancultured. We'll request ID reevaluation. 06/03: Resting in bed on C Pap/pressure support via tracheostomy. One out of 2 sets of blood cultures sent on 06/02 positive for gram-positive cocci. 06/04: Resting in bed on mechanical ventilation via tracheostomy. Afebrile overnight. MRI brachial plexus (06/03) revealed a collection near the right subscapularis muscle, possibly an abscess. Discussed with ID, orthopedics Dr. Velazquez consulted. I discussed the case with Dr. Velazquez this morning who feels this is probably an abscess however would be difficult to access surgically and he plans to set up percutaneous drainage by interventional radiology. 06/05: Resting in bed on mechanical ventilation via tracheostomy. Remains afebrile. Reportedly IR cannot do percutaneous drainage of collection involving right subscapularis muscle. 06/06: Resting in bed on mechanical ventilation via tracheostomy. Can actually speak around the trach. Remains afebrile. Dr. Velazquez evaluated patient and is scheduling surgery for drainage of fluid collection involving the right subscapularis muscle. 06/07: Resting in bed on mechanical ventilation via tracheostomy. Awaiting surgery today. 06/08: Status post I&D of collection near right shoulder/subscapularis on 06/[address] Velazquez. This morning patient is awake and alert complained of some pain at the surgical site. Remains on mechanical ventilation on C Pap/pressure support. 06/09: Sleeping, arousable. On mechanical ventilation with C Pap/pressure support overnight. Labs pending 06/10 No acute events overnight. On CPAP with PS 12, PEEP: 8, FIO2 40%. Afebrile. 06/11 Patient remains on CPAP with PS 10, PEEP: 8 and FIO2 40%. Afebrile. 06/12: No acute events overnight. Remains on CPAP 04/03. No specific complaints 06/13: Tolerating C Pap 10 over 5. Awake and alert following commands. Hemoglobin dropped from 8.6-7.1, no obvious bleeding. Sodium 140-149. Will give 1 unit of PRBC with 1 mg IV Bumex Objective Vital Signs Date Time Temp Pulse Resp B/P Pulse Ox O2 Delivery O2 Flow Rate FiO2 06/13/16 12:00 40 06/13/16 12:00 97.7 88 37 91 Intake and Output 06/12/16 06/12/16 06/13/16 08:00 16:00 00:00 Intake Total 559 ml 856 ml 321 ml Output Total 325 ml 2300 ml 325 ml Balance 234 ml -1444 ml -4 ml Result Diagram: 06/13/16 0327 06/13/16 0327 Imaging Last Impressions Chest X-Ray 06/03/16 0600 Signed Impressions: Service Date/Time: Friday, June 03, 2016 03:22 - CONCLUSION: 1. Cardiomegaly with bilateral pulmonary edema. 2. Moderate right pleural effusion. Vishnu Woodward MD Liver Ultrasound 06/03/16 0000 Signed Impressions: Service Date/Time: Friday, June 03, 2016 08:10 - CONCLUSION: 1. There is some sludge in the gallbladder. This can be seen with chronic gallbladder disease. 2. Fatty infiltration of the liver which appears to be enlarged. 3. No mechanical biliary tract obstruction. 4. Splenomegaly. Lázaro Frankel MD Brachial Plexus MRI 06/03/16 0000 Signed Impressions: Service Date/Time: Friday, June 03, 2016 12:42 - CONCLUSION: There is a complex multiloculated soft tissue and cystic mass measuring approximately 5.5 x 6.0 x 7.8 cm involving the subscapularis muscle along the anterior right scapula. The differential considerations include neoplastic disease, infection and hematoma. Recommend a CT scan of the right shoulder to pre-plan for CT-guided aspiration/biopsy of this abnormality. Lázaro Frankel MD Cervical Spine MRI 05/29/16 0000 Signed Impressions: Service Date/Time: Sunday, May 29, 2016 13:51 - CONCLUSION: Limited study but appears normal. Vishnu Woodward MD Brain MRI 05/29/16 0000 Signed Impressions: Service Date/Time: Sunday, May 29, 2016 13:51 - CONCLUSION: 1. Focal chronic ischemic change in the high right frontal parietal convexity stable from previous CT scan. 2. No acute intracranial abnormality. 3. Minimal nonspecific white matter changes. Vishnu Woodward MD Upper Extremity Ultrasound 05/28/16 0000 Signed Impressions: Service Date/Time: Saturday, May 28, 2016 10:16 - CONCLUSION: 1. Negative for deep venous thrombosis. Venous line noted in cephalic, subclavian and internal jugular vein. Horacio Gupta MD Abdomen X-Ray 04/29/16 0000 Signed Impressions: Service Date/Time: Friday, April 29, 2016 07:12 - CONCLUSION: Suspect Dobbhoff tube in the distal stomach. Garcia Lujan MD Objective Remarks GENERAL: Patient is 31yo on ventilator via trach, awakens and follows commands. Super Morbidly obese. SKIN: Warm and dry. HEAD: Normocephalic. EYES: No scleral icterus. No injection or drainage. NECK: Supple, trachea midline. Shiley 6.0 Proximal XLT, (new trach placed ) CARDIOVASCULAR: No murmurs, gallops, or rubs by limited exam. RESPIRATORY: On mechanical ventilation, Breath sounds equal bilaterally. Distant secondary to habitus. GASTROINTESTINAL: Abdomen soft, obese, non-tender, nondistended. Multiple noted areas of ecchymotic bruising secondary to subcutaneous injections MUSCULOSKELETAL: No cyanosis, or edema. Pedal edema. Wound on lateral aspect of right lower leg above lateral malleolus , dressing C/D/I. right upper extremity motor strength, inability to perform flexion, or pronation, hand quality intern strength 2/5. Dressing around the right axilla/shoulder Neuro: Arousable. Moves all extremities with focal deficit right upper extremity as above. Urinary Catheter: Yes Assessment to: Continue Date of Insertion: Apr 24, 2016 A/P Assessment and Plan ASSESSMENT Acute hypercapnic and hypoxemic respiratory failure Acute worsening of hypoxia due to lung de-recruitment 05/15/16 Healthcare associated pneumonia MDR Pseudomonas Enterococcal bacteremia Pseudomonas bacteremia Collection near right subscapularis muscle(On MRI 06/03) - abscess status post I& D on 06/07 Sepsis CHF exacerbation CO2 narcosis Tracheostomy ferry pilot balloon damage -status post exchange with new Shiley 6.0 Proximal XLT 05/02/16 Chronic Respiratory Failure s/p Tracheostomy 4 years ago (Shiley 6.0 Proximal XLT) Probable right brachial plexus injury COPD/obesity hypoventilation syndrome Morbid Obesity BMI 67 History of pulmonary embolism 4 years ago Chronic atrial fibrillation Anxiety CHF (Echo 2013 EF 40-45%; ECHO 08/2015 showing a grossly normal systolic function) Hypertension Hypothyroidism PLAN NEURO: CO2 narcosis - resolved Critical care polyneuropathy Right upper extremity weakness 05/21-possibly secondary to nerve compression, C6 , C7 (brachial plexus) Pain Anxiety Depression -Collection near right subscapularis muscle(On MRI 06/03) - abscess status post I &D on 06/07 -EMG/ NCV could not be completed on 05/[address] Castillo -Clinically has right brachial plexus involvement. MRI of brachial plexus on 06/03 revealed collection involving right subscapularis muscle- s/p I & D on 06/[address] Velazquez. -Continued PT daily, with strengthening exercise (encouraged patient to participate) patient counseled on the importance. -Neurology Dr. Cheek-MRI brain C spine no acute findings. -Venous Doppler RUE 05/28-negative for DVT -Psychiatric consultation-agrees patient is depressed, On Seroquel. Continue Zoloft 50mg daily -On morphine 4 mg IV every 3 hours as needed for breakthrough pain. RESP: Acute hypercapnic and hypoxemic respiratory failure Acute lung derecruitment 05/15 with hypoxia Healthcare associated pneumonia Tracheostomy ferry pilot balloon damage (Shiley 6.0 Proximal XLT) s/p new trach placement 05/02 Chronic Respiratory Failure s/p Tracheostomy 4 years ago COPD/obesity hypoventilation syndrome History of pulmonary embolism 4 years ago Leukocytosis-resolved Pulmonary edema - Continue with vent support keep sat >90%. Currently on CPAP. Attempt TP/TC as beatriz - Pulm toilet, trach care - s/p Bronchoscopy 05/11 -follow up on BAL results negative - DuoNeb every 6 hours scheduled, q 2 prn. - Pulmicort BID (home med), Continue Singulair 10 mg po daily CV: CHF exacerbation Pulmonary edema Paroxysmal atrial fibrillation (chronic) Hyperlipidemia -Monitor HR and BP keep MAP>65mmHg -Cardizem 90mg QID. Bumex to 1mg daily PO. Additional 2 mg Bumex with blood transfusion -Continue Lipitor 10 g by mouth daily. Continue TriCor 40 mg by mouth daily -Therapeutic Lovenox 150 mg twice a day GI: Super morbid obesity with BMI of 63 -Regular diet ,thin liquids per speech recs. -Liver US 06/03: Fatty liver, sludge in gall bladder, splenomegaly, no mechanical obstruction of bile duct noted. -On Pepcid 20mg BID -Multivitamin to medication regimen FEN/RENAL: - Monitor renal function , I/O. - Electrolytes replacement per protocol. - Bumex 1mg PO daily ID: Healthcare associated pneumonia Sepsis New fever MDRO Cellulitis right arm-resolved Leukocytosis-trending down Enterococcal faecalis bacteremia, Pseudomonas bacteremia (06/02, 06/03) -Rocephin (05/12- 05/25) -Blood culture: aerobic and anaerobic bottles - enterococcus faecalis, pseudomonas aeruginosa 06/02, 06/03 -Urine culture 06/02 pseudomonas aeruginosa Wound culture 06/02 pseudomonas aeruginosa Sputum culture 06/02 Pseudomonas -Urine cx: Proteus Mirabilis 05/05 -Sputum cx: Providencia 05/05- resolved -Wound cx: 05/13 Proteus, Pseudomonas, Group D Enterococcus -Wound culture Pseudomonas MDR 04/27 -Sputum culture-Pseudomonas MDR- 04/27 -Bronchoscopy and re-culture 05/10 follow up on BAL results-neg to date -Follow up on sputum cx from 05/15- NGTD -Continue abx per ID ( IV vancomycin, colistin nebs, Zerbaxa for MDR pseudomonas in blood cultures) MRI brachial plexus (06/03) revealed a collection involving right subscapularis muscle near right anterior axilla , possibly an abscess Dr. Velazquez performed drainage of collection surgically on 06/07. HEME: History of PE on chronic anticoagulation with Xarelto Anemia, iron deficiency and anemia of critical illness. -Monitor CBC, transfuse 1U PRBC today -Xarelto for PE 4 yrs ago. -Xarelto.held, On therapeutic Lovenox 150 mg twice a day -Ferrous sulfate 300 mg/q day ENDO: Hypothyroidism -On SSI (Low scale) -Continue levothyroxine 50 mcg po daily -Free T4 1.52 PROPH: -Bilateral lower extremity SCDs. 150 mg twice a day GI prophylaxis- Pepcid switched to Protonix on 06/07 LINES: - PICC line RUE- No DVT on US 05/02 - removed on 06/03. Out of bed with assistance. PT out of bed with vent. OT. Discussed with DINKEY LOCOMOTIVE OPERATOR. Level 3 Jaquan Zelaya MD Jun 13, 2016 14:07
[2016-06-13] MEDS ORDERED: BUMETANIDE INJ 1 MG/4 ML VIAL IV PUSH ONE (14:30)
[2016-06-13] MEDS: RESP: ALBUTEROL 2.5 MG/IPRATROPIUM 0.5 MG NEB (PRN) NEB (14:59)
[2016-06-13] MEDS ORDERED: MAGNESIUM SULFATE INJ 2 GM in SODIUM CHLORIDE 0.9% INJ 96 ML IV PRN (16:30)
[2016-06-13] MEDS ORDERED: MAGNESIUM OXIDE 400 MG TAB PO PRN (16:30)
[2016-06-13] MEDS ORDERED: POTASSIUM CL 40 MEQ/30 ML LIQ UDC PO/TUBE PRN ×2 (16:30)
[2016-06-13] MEDS ORDERED: POTASSIUM PHOSPHATE MONOBASIC 500 MG TAB PO PRN (16:30)
[2016-06-13] MEDS ORDERED: POTASSIUM CHLOR 20 MEQ PREMIX 100 ML IV PRN (16:30)
[2016-06-13] MEDS ORDERED: POTASSIUM PHOSPHATE INJ 30 MMOL in SODIUM CHLOR 0.9% 250 ML INJ 250 ML IV PRN (16:30)
[2016-06-13] MEDS ORDERED: SODIUM PHOSPHATE INJ 30 MMOL in SODIUM CHLOR 0.9% 250 ML INJ 240 ML IV PRN (16:30)
[2016-06-13] MEDS ORDERED: POTASSIUM PHOSPHATE MONOBASIC 500 MG TAB PO/TUBE PRN (16:30)
[2016-06-13] MEDS ORDERED: MAGNESIUM SULFATE INJ 4 GM in SODIUM CHLORIDE 0.9% INJ 92 ML IV PRN (16:30)
[2016-06-13] MEDS: VANCOMYCIN INJ 2,250 MG in SODIUM CHLORID 0.9% 500 ML INJ 500 ML IV SCH (17:11)
[2016-06-13] MEDS: MORPHINE SULFATE 4 MG/ML INJ IV PUSH PRN (20:22)
[2016-06-13] MEDS: QUEtiapine FUMARATE 100 MG TAB PO SCH (20:22)
[2016-06-14] VITALS (17 sets, daily range): BP systolic 121–141; BP diastolic 55–65; PULSE 60–89; RESP 20–22; TEMP 97.7–98; O2SAT 93–98
[2016-06-14] MEDS: CEFTOLOZANE-TAZOBACTAM INJ 1,500 MG in SODIUM CHLORIDE 0.9% INJ 100 ML IV SCH ×3 (02:47→19:54)
[2016-06-14] MEDS: LEVOTHYROXINE SODIUM 50 MCG TAB PO SCH (04:36)
[2016-06-14 05:17] LABS: AUTOMATED NEUTROPHIL # 10.6 TH/MM3 (1.8-7.7); BASOPHIL # 0.1 TH/MM3 (0-0.2); EOSINOPHIL # 0.2 TH/MM3 (0-0.4); EOSINOPHIL % 1.7 % (0.0-4.0); HEMATOCRIT 28.2 % (39.0-51.0); LYMPH % 10.7 % (9.0-44.0); LYMPHOCYTE # 1.4 TH/MM3 (1.0-4.8); MEAN CELL VOLUME 81.3 FL (80.0-100.0); MEAN CORPUSCULAR HEMOGLOBIN 24.5 PG (27.0-34.0); MEAN CORPUSCULAR HGB CONC 30.1 % (32.0-36.0); NEUT % 79.6 % (16.0-70.0); PLATELET COUNT 293 TH/MM3 (150-450); RED BLOOD COUNT 3.46 MIL/MM3 (4.50-5.90); RED CELL DISTRIBUTION WIDTH 24.7 % (11.6-17.2); WHITE BLOOD COUNT 13.3 TH/MM3 (4.0-11.0)
[2016-06-14 05:31] LABS: HEMO FLAGS AUTO DIFF
[2016-06-14 05:50] LABS: ALKALINE PHOSPHATASE 98 U/L (45-117); ALT (GPT) 16 U/L (12-78); ANION GAP 3 MEQ/L (5-15); AST (GOT) 20 U/L (15-37); BICARBONATE 42.7 MEQ/L (21.0-32.0); BLOOD UREA NITROGEN 4 MG/DL (7-18); CHLORIDE 96 MEQ/L (98-107); GLOMERULAR FILTRATION RATE 311 ML/MIN (>89); POTASSIUM 3.2 MEQ/L (3.5-5.1); SODIUM (NA) 142 MEQ/L (136-145); TOTAL BILIRUBIN ADULT 0.3 MG/DL (0.2-1.0)
--- NOTE | 2016-06-14 06:36 | RADRPT ---
EXAM DATE/TIME: 06/14/2016 04:34 [facility] COMPARISON: CHEST SINGLE AP, June 03, 2016, 3:22. INDICATIONS : Shortness of breath. MEDICAL HISTORY : Hypertension. Congestive heart failure. SURGICAL HISTORY : None. ENCOUNTER: Subsequent ACUITY: 2 months PAIN SCORE: Non-responsive. LOCATION: Bilateral chest FINDINGS: A single AP semierect view of the chest was obtained and again demonstrates a tracheostomy tube in pl bee. The heart size remains moderately enlarged. Abnormal opacity remains in the perihilar regions wi th consolidative opacity at the right lung base. The right costophrenic angle remains blunted. The ri ght hemidiaphragm remains obscured. The bony thorax is intact. CONCLUSION: 1. Consolidative opacity at the right lung base most consistent with infiltrate and or effusion. 2. Moderate cardiomegaly Joshua Evangelista MD on June 14, 2016 at 6:33 Board Certified Radiologist. This report was verified electronically.
[2016-06-14 07:06] LABS: MAGNESIUM 1.6 MG/DL (1.5-2.5)
[2016-06-14 07:31] LABS: BANDS 3 % (0-6); BASOPHILS 1 % (0-2); CORRECTED NUCLEATED RBC 1 /100 WBC (0-0); EOSINOPHILS 2 % (0-4); METAMYELOCYTES 1 % (0-1); NEUTROPHIL # MANUAL DIFF 10.6 TH/MM3 (1.8-7.7); OVALOCYTES 1+ (NORMAL); POLYS (SEG NEUTROPHILS) 76 % (16-70); SCAN/DIFF FINAL DIFF MANUAL; WBC DIFF SAMPLE 100
[2016-06-14 07:32] LABS: PLATELET ESTIMATE SMEAR NORMAL (NORMAL); PLATELET MORPHOLOGY NORMAL (NORMAL); TEARDROP RBCS 1+ (NORMAL); TOXIC VACUOLATION PRESENT (NONE SEEN)
[2016-06-14] MEDS: CHLORHEXIDINE 0.12% (ORAL KIT) 15 ML CUP MT SCH ×2 (07:35→19:54)
[2016-06-14] MEDS: POTASSIUM CHLOR 20 MEQ PREMIX 100 ML IV PRN ×4 (07:36→14:18)
[2016-06-14] MEDS: SODIUM CHLORIDE 0.9% FLUSH 5 ML FLUSH IVF SCH ×2 (08:37→19:55)
[2016-06-14] MEDS: ONDANSETRON ODT 4 MG TAB PO PRN ×2 (08:37→19:54)
[2016-06-14] MEDS: ATORVASTATIN 10 MG TAB PO SCH (08:37)
[2016-06-14] MEDS: PANTOPRAZOLE SOD 20 MG DELAYED RELEASE TAB PO SCH ×2 (08:37→19:54)
[2016-06-14] MEDS: BUMETANIDE 1 MG TAB PO SCH (08:37)
[2016-06-14] MEDS: FERROUS SULFATE 325 MG (65 MG ELEMENTAL IRON) TAB PO SCH (08:37)
[2016-06-14] MEDS: NYSTATIN 100,000 U/GM PWD 15 GM BTL TOPICAL SCH ×2 (08:38→19:55)
[2016-06-14] MEDS: MONTELUKAST SODIUM 10 MG TAB PO SCH (08:38)
[2016-06-14] MEDS: MULTIVITAMIN TAB PO SCH (08:38)
[2016-06-14] MEDS: COLLAGENASE OINT 30 GM TUBE TOP SCH (08:38)
[2016-06-14] MEDS: DILTIAZEM HCL 90 MG TAB PO SCH ×4 (08:38→19:54)
[2016-06-14] MEDS: FENOFIBRATE 48 MG TAB PO SCH (08:38)
[2016-06-14] MEDS: SERTRALINE HCL 100 MG TAB PO SCH (08:38)
[2016-06-14] MEDS: ALLOPURINOL 300 MG TAB PO SCH (08:38)
[2016-06-14] MEDS: ENOXAPARIN SODIUM 150 MG/ML SYRINGE SQ SCH ×2 (08:39→21:22)
[2016-06-14] MEDS: RESP: COLISTIN 150 MG VIAL NEB SCH ×2 (08:48→14:59)
--- NOTE | 2016-06-14 08:58 | HHI.CCPN ---
Subjective Remarks/Hospital Course 31 year old morbidly obese (BMI 68) male with chronic respiratory failure s/p tracheostomy 4 years ago, atrial fibrillation and pulmonary embolism on Xarelto , COPD, CHF and h/o HTN. He presented from [facility] with low oxygen saturation apparently his oxygen saturation was 82% on RA. He was placed back on 6L of oxygen via his trach mask and given a breathing treatment, initially improved however he started drifting back to low 80s again. Chest x-ray showed bibasilar infiltrates and pulmonary edema. Patient was admitted to the [facility] and was started on IV steroids IV vancomycin and Zosyn and Levaquin for healthcare associated pneumonia. After starting ACV, patient was more awake but there was a significant amount of air leak around his tracheostomy. Patient has had a Shiley 6.0 Proximal XLT, but the commercial drone pilot balloon had been cut off. 05/02 the patient became acutely hypoxemic with a large cuff leak, underwent emergency trach exchange at bedside by Dr. Macias. FiO2 65% PEEP 14 05/13 Patient is on ventilator via trach, on Fentanyl infusion however he is awake and alert. On PRVC with FIO2 40%. Afebrile. 05/14 No acute events overnight. Tmax 99.8. Patient is awake, alert on ventilator via trach still requiring increase O2. On PRVC with PEEP: 10 and FIO2 70%. 05/15 patient acutely desaturated after he was found. Saturation went down to 70% on 100% oxygen. Bag and mask ventilation carried out, with eventual improvement on oxygen saturation to 85%. Patient was placed on PC/AC mode of ventilation, with PEEP of 15 and instructed to pressure of 30. Eventually oxygen saturation improved to 95%. Lasix him today as the chest x-ray from today shows increasing bilateral infiltrate and pulmonary edema. Also sputum culture will be sent 05/16 Patient is on Fentanyl and Diprivan infusion but awake and alert. Afebrile. On PC/AC with PEEP:15, IP: 22, IT:1.3 and FIO2 50% 05/17 Patient is off Diprivan and remains on Fentanyl infusion for sedation. On PC/AC with PEEP: down 10 and FIO2 40%. Afebrile. 05/18 Patient remains on ventilator via trach on PC/AC with PEEP:12, FIO2 40%, IP:22, IT:1.0. On Fentanyl infusion 05/19 No acute events overnight. On Fentanyl infusion but awake and alert. Afebrile. 05/20 Tolerating C Pap 17/12 FIO2 40, sats 98%. RSBI in 20s, appears can be weaned further. Afebrile. Speech therapy evaluated and ok for regular diet. Starting with full liquid. 05/21 Will wean PSV to 15/10. Tolerated full liquids, will advance to regular diet per speech recs. Subjective: 05/22 On PSV 15/10 FIO2 40 with sats 92%. Smiling today. Glad to be eating regular food again. 05/23 No acute events overnight. Remains on CPAP with PS 15, PEEP:10 and FIO2 40 %. Afebrile. Off Fentanyl drip. Afebrile. Awake and alert. 05/24 Patient is on CPAP 06/06 with 40% FIO2. Afebrile. Awake and alert, on no sedation. 05/25 No acute events overnight. Patient was placed back on PC/AC overnight. Tolerated CPAP trials during day yesterday. Awake and alert. On no drips. Afebrile. 05/26 Afebrile. Tmax 98.6. Today the patient complained of nausea requiring Zofran. The patient has a lack of an appetite, with noted hypoglycemia early this a.m. blood glucose level 69. Patient tolerating CPAP well greater than 12 hours in the last 24 hours. 05/27 The patient tolerated CPAP for over 36 hours, O2 sat a knee 94% on FIO2 40 %. The patient had an increase in appetite. The patient continues on full liquid diet. 05/28 The patient declined physical therapy treatment, yesterday and also overnight declined to be moved by nursing staff. The patient refused dinner last evening, of note patient was reevaluated by speech therapy and can consume a heart healthy diet with thin liquids. The patient continues on physical therapy for strengthening exercises of all extremities specifically noted right upper extremity continues to be weak with gross fibrillations noted in hand and forearm. 05/29 Afebrile. No change in right upper extremity weakness. The patient was seen by neurology yesterday plan for MRI today if possible in hospital MRI, and EMG studies. No complaints overnight. Patient continues to refuse to have activities performed, movement in bed. The patient appears to be depressed, psychiatry consulted. 05/30: Patient alert awake on CPAP. Following commands. Psych agrees the patient is depressed. MRI brain no acute findings 05/31: Awake alert. on PS 15/8. EMG could not be completed due to patient becoming anxious. Otherwise no acute events reported overnight 06/01: Remains PS from 15/8. Right upper extremity weakness persists. EMG to be repeated on Friday. Will need MRI of the brachial plexus. Chest x-ray is unchanged 06/02: States that "not feeling well". Febrile to 101.5. White count increasing but still within the normal range. Pancultured. We'll request ID reevaluation. 06/03: Resting in bed on C Pap/pressure support via tracheostomy. One out of 2 sets of blood cultures sent on 06/02 positive for gram-positive cocci. 06/04: Resting in bed on mechanical ventilation via tracheostomy. Afebrile overnight. MRI brachial plexus (06/03) revealed a collection near the right subscapularis muscle, possibly an abscess. Discussed with ID, orthopedics Dr. Velazquez consulted. I discussed the case with Dr. Velazquez this morning who feels this is probably an abscess however would be difficult to access surgically and he plans to set up percutaneous drainage by interventional radiology. 06/05: Resting in bed on mechanical ventilation via tracheostomy. Remains afebrile. Reportedly IR cannot do percutaneous drainage of collection involving right subscapularis muscle. 06/06: Resting in bed on mechanical ventilation via tracheostomy. Can actually speak around the trach. Remains afebrile. Dr. Velazquez evaluated patient and is scheduling surgery for drainage of fluid collection involving the right subscapularis muscle. 06/07: Resting in bed on mechanical ventilation via tracheostomy. Awaiting surgery today. 06/08: Status post I&D of collection near right shoulder/subscapularis on 06/[address] Velazquez. This morning patient is awake and alert complained of some pain at the surgical site. Remains on mechanical ventilation on C Pap/pressure support. 06/09: Sleeping, arousable. On mechanical ventilation with C Pap/pressure support overnight. Labs pending 06/10 No acute events overnight. On CPAP with PS 12, PEEP: 8, FIO2 40%. Afebrile. 06/11 Patient remains on CPAP with PS 10, PEEP: 8 and FIO2 40%. Afebrile. 06/12: No acute events overnight. Remains on CPAP 04/03. No specific complaints 06/13: Tolerating C Pap 10 over 5. Awake and alert following commands. Hemoglobin dropped from 8.6-7.1, no obvious bleeding. Sodium 140-149. Will give 1 unit of PRBC with 1 mg IV Bumex 06/14 No acute events overnight. On CPAP with PS 10, PEEP:5 and FIO2 50%. Afebrile. Objective Vital Signs Date Time Temp Pulse Resp B/P Pulse Ox O2 Delivery O2 Flow Rate FiO2 06/14/16 06:00 89 06/14/16 05:01 98 50 06/14/16 04:00 98.0 20 126/59 Intake and Output 06/13/16 06/13/16 06/14/16 08:00 16:00 00:00 Intake Total 1278 ml 595 ml 625 ml Output Total 350 ml 4150 ml 1100 ml Balance 928 ml -3555 ml -475 ml Result Diagram: 06/14/16 0413 06/14/16 0413 Other Results Laboratory Tests Test 06/13/16 06/14/16 15:00 04:13 Blood Type O POSITIVE Antibody Screen NEGATIVE Crossmatch Leukocyte-Reduced Red Blood Cells Blood Bank Comment White Blood Count 13.3 TH/MM3 Red Blood Count 3.46 MIL/MM3 Hemoglobin 8.5 GM/DL Hematocrit 28.2 % Mean Corpuscular Volume 81.3 FL Mean Corpuscular Hemoglobin 24.5 PG Mean Corpuscular Hemoglobin 30.1 % Concent Red Cell Distribution Width 24.7 % Platelet Count 293 TH/MM3 Mean Platelet Volume 7.1 FL Neutrophils (%) (Auto) 79.6 % Lymphocytes (%) (Auto) 10.7 % Monocytes (%) (Auto) 7.0 % Eosinophils (%) (Auto) 1.7 % Basophils (%) (Auto) 1.0 % Neutrophils # (Auto) 10.6 TH/MM3 Lymphocytes # (Auto) 1.4 TH/MM3 Monocytes # (Auto) 0.9 TH/MM3 Eosinophils # (Auto) 0.2 TH/MM3 Basophils # (Auto) 0.1 TH/MM3 CBC Comment AUTO DIFF Differential Total Cells 100 Counted Neutrophils % (Manual) 76 % Band Neutrophils % 3 % Lymphocytes % 11 % Monocytes % 6 % Eosinophils % 2 % Basophils % 1 % Neutrophils # (Manual) 10.6 TH/MM3 Metamyelocytes 1 % Nucleated Red Blood Cells 1 /100 WBC Differential Comment FINAL DIFF MANUAL Toxic Vacuolation PRESENT Platelet Estimate NORMAL Platelet Morphology Comment NORMAL Basophilic Stippling FAINT Tear Drop Cells 1+ Ovalocytes 1+ Sodium Level 142 MEQ/L Potassium Level 3.2 MEQ/L Chloride Level 96 MEQ/L Carbon Dioxide Level 42.7 MEQ/L Anion Gap 3 MEQ/L Blood Urea Nitrogen 4 MG/DL Creatinine 0.33 MG/DL Estimat Glomerular Filtration 311 ML/MIN Rate Random Glucose 84 MG/DL Calcium Level 8.9 MG/DL Magnesium Level 1.6 MG/DL Total Bilirubin 0.3 MG/DL Aspartate Amino Transf 20 U/L (AST/SGOT) Alanine Aminotransferase 16 U/L (ALT/SGPT) Alkaline Phosphatase 98 U/L Total Protein 5.4 GM/DL Albumin 1.9 GM/DL Imaging Last Impressions Chest X-Ray 06/14/16 0600 Signed Impressions: Service Date/Time: Tuesday, June 14, 2016 04:34 - CONCLUSION: 1. Consolidative opacity at the right lung base most consistent with infiltrate and or effusion. 2. Moderate cardiomegaly Joshua Evangelista MD Liver Ultrasound 06/03/16 0000 Signed Impressions: Service Date/Time: Friday, June 03, 2016 08:10 - CONCLUSION: 1. There is some sludge in the gallbladder. This can be seen with chronic gallbladder disease. 2. Fatty infiltration of the liver which appears to be enlarged. 3. No mechanical biliary tract obstruction. 4. Splenomegaly. Lázaro Frankel MD Brachial Plexus MRI 06/03/16 0000 Signed Impressions: Service Date/Time: Friday, June 03, 2016 12:42 - CONCLUSION: There is a complex multiloculated soft tissue and cystic mass measuring approximately 5.5 x 6.0 x 7.8 cm involving the subscapularis muscle along the anterior right scapula. The differential considerations include neoplastic disease, infection and hematoma. Recommend a CT scan of the right shoulder to pre-plan for CT-guided aspiration/biopsy of this abnormality. Lázaro Frankel MD Cervical Spine MRI 05/29/16 0000 Signed Impressions: Service Date/Time: Sunday, May 29, 2016 13:51 - CONCLUSION: Limited study but appears normal. Vishnu Woodward MD Brain MRI 05/29/16 0000 Signed Impressions: Service Date/Time: Sunday, May 29, 2016 13:51 - CONCLUSION: 1. Focal chronic ischemic change in the high right frontal parietal convexity stable from previous CT scan. 2. No acute intracranial abnormality. 3. Minimal nonspecific white matter changes. Vishnu Woodward MD Upper Extremity Ultrasound 05/28/16 0000 Signed Impressions: Service Date/Time: Saturday, May 28, 2016 10:16 - CONCLUSION: 1. Negative for deep venous thrombosis. Venous line noted in cephalic, subclavian and internal jugular vein. Horacio Gupta MD Abdomen X-Ray 04/29/16 0000 Signed Impressions: Service Date/Time: Friday, April 29, 2016 07:12 - CONCLUSION: Suspect Dobbhoff tube in the distal stomach. aGrcia Lujan MD Objective Remarks GENERAL: Patient is 31yo on ventilator via trach, awakens and follows commands. Super Morbidly obese. SKIN: Warm and dry. HEAD: Normocephalic. EYES: No scleral icterus. No injection or drainage. NECK: Supple, trachea midline. Shiley 6.0 Proximal XLT, (new trach placed ) CARDIOVASCULAR: No murmurs, gallops, or rubs by limited exam. RESPIRATORY: On mechanical ventilation, Breath sounds equal bilaterally. Distant secondary to habitus. GASTROINTESTINAL: Abdomen soft, obese, non-tender, nondistended. Multiple noted areas of ecchymotic bruising secondary to subcutaneous injections MUSCULOSKELETAL: No cyanosis, or edema. Pedal edema. Wound on lateral aspect of right lower leg above lateral malleolus , dressing C/D/I. right upper extremity motor strength, inability to perform flexion, or pronation, hand green ware caster strength 2/5. Dressing around the right axilla/shoulder Neuro: Arousable. Moves all extremities with focal deficit right upper extremity as above. 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 -status post exchange with new Shiley 6.0 Proximal XLT 05/02/16 Chronic Respiratory Failure s/p Tracheostomy 4 years ago (Shiley 6.0 Proximal XLT) Probable right brachial plexus injury COPD/obesity hypoventilation syndrome Morbid Obesity BMI 67 History of pulmonary embolism 4 years ago Chronic atrial fibrillation Anxiety CHF (Echo 2013 EF 40-45%; ECHO 08/2015 showing a grossly normal systolic function) Hypertension Hypothyroidism PLAN NEURO: CO2 narcosis - resolved Critical care polyneuropathy Right upper extremity weakness 05/21-possibly secondary to nerve compression, C6 , C7 (brachial plexus) Pain Anxiety Depression -Collection near right subscapularis muscle(On MRI 06/03) - abscess status post I &D on 06/07 -EMG/ NCV could not be completed on 05/[address] Castillo -Clinically has right brachial plexus involvement. MRI of brachial plexus on 06/03 revealed collection involving right subscapularis muscle- s/p I & D on 06/[address] Velazquez. -Continued PT daily, with strengthening exercise (encouraged patient to participate) patient counseled on the importance. -Neurology Dr. Cheek-MRI brain C spine no acute findings. -Venous Doppler RUE 05/28-negative for DVT -Psychiatric consultation-agrees patient is depressed, On Seroquel. Continue Zoloft 50mg daily -On morphine 4 mg IV every 3 hours as needed for breakthrough pain. 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 Currently on CPAP. Attempt TP/TC as beatriz - Pulm toilet, trach care - s/p Bronchoscopy 05/11 -follow up on BAL results negative - DuoNeb every 6 hours scheduled, q 2 prn. - Pulmicort BID (home med), Continue Singulair 10 mg po daily CV: CHF exacerbation Pulmonary edema Paroxysmal atrial fibrillation (chronic) Hyperlipidemia -Monitor HR and BP keep MAP>65mmHg -Cardizem 90mg QID. Bumex to 1mg daily PO. -Continue Lipitor 10 g by mouth daily. Continue TriCor 40 mg by mouth daily -Therapeutic Lovenox 150 mg twice a day GI: Super morbid obesity with BMI of 63 -Regular diet ,thin liquids per speech recs. -Liver US 06/03: Fatty liver, sludge in gall bladder, splenomegaly, no mechanical obstruction of bile duct noted. -On Protonix 20mg BID -Multivitamin to medication regimen FEN/RENAL: - Monitor renal function , I/O. for K replacement today - Electrolytes replacement per protocol. - Bumex 1mg PO daily, KCL 40meq Q12 ID: Healthcare associated pneumonia Sepsis New fever MDRO Cellulitis right arm-resolved Leukocytosis-trending down Enterococcal faecalis bacteremia, Pseudomonas bacteremia (06/02, 06/03) -Rocephin (05/12- 05/25) -Blood culture: aerobic and anaerobic bottles - enterococcus faecalis, pseudomonas aeruginosa 06/02, 06/03 -Urine culture 06/02 pseudomonas aeruginosa Wound culture 06/02 pseudomonas aeruginosa Sputum culture 06/02 Pseudomonas -Urine cx: Proteus Mirabilis 05/05 -Sputum cx: Providencia 05/05- resolved -Wound cx: 05/13 Proteus, Pseudomonas, Group D Enterococcus -Wound culture Pseudomonas MDR 04/27 -Sputum culture-Pseudomonas MDR- 04/27 -Bronchoscopy and re-culture 05/10 follow up on BAL results-neg to date -Follow up on sputum cx from 05/15- NGTD -Continue abx per ID ( IV vancomycin, colistin nebs, Zerbaxa for MDR pseudomonas in blood cultures) MRI brachial plexus (06/03) revealed a collection involving right subscapularis muscle near right anterior axilla , possibly an abscess Dr. Velazquez performed drainage of collection surgically on 06/07. HEME: History of PE on chronic anticoagulation with Xarelto Anemia, iron deficiency and anemia of critical illness. -Monitor CBC, transfuse 1U PRBC 06/13 -Xarelto for PE 4 yrs ago. -Xarelto.held, On therapeutic Lovenox 150 mg twice a day -Ferrous sulfate 300 mg/q day ENDO: Hypothyroidism -On SSI (Low scale) -Continue levothyroxine 50 mcg po daily -Free T4 1.52 PROPH: -Bilateral lower extremity SCDs. 150 mg twice a day GI prophylaxis- Protonix 20mg BID LINES: - PICC line RUE- No DVT on US 05/02 - removed on 06/03. Out of bed with assistance. PT out of bed with vent. OT. Discussed with SLICING MACHINE TENDER. Level 3 Flory Martino MD Jun 14, 2016 08:58
[2016-06-14] MEDS: MICONAZOLE NITRATE 2% CREAM 15 GM TOP SCH ×2 (09:56→19:55)
[2016-06-14] MEDS: RESP: BUDESONIDE 0.5 MG/2 ML NEB NEB SCH ×2 (10:08→22:29)
--- NOTE | 2016-06-14 10:17 | HHI.IDPN ---
Subjective Subjective Remarks Notes reviewed Temps ok Clinically doing well Doing well on CPAP Not SOB BP good No new (+) BC [place] changed 06/06 Has peripheral IV in place Operative note reviewed - looks more of hematoma, no purulence see, no C/S sent Antibiotics Colistin nebs Zerbaxa IV Vanco IV Lines PIVs Past Medical History Chronic Respiratory Failure s/p Tracheostomy 4 years ago Morbid Obesity w/ BMI 67.6 Atrial fibrillation Pulmonary embolism 4 years ago Anxiety CHF (Echo 06/07/2014 w/ EF 40-45%; ECHO 08/2015 showing a grossly normal systolic function) HTN Hypothyroidism Past Surgical History Tracheostomy Tonsillectomy Allergies: Coded Allergies: *MDRO Multi-Drug Resistant Organism (Verified Adverse Reaction, Unknown, 05/08/16) XDR Pseudomonas aeruginosa (sputum) - 09/18/15; (sputum & wound) - 04/27/16 Objective . Vital Signs Date Time Temp Pulse Resp B/P Pulse Ox O2 Delivery O2 Flow Rate FiO2 06/14/16 08:49 94 40 06/14/16 08:00 40 06/14/16 08:00 60 06/14/16 08:00 97.7 60 20 123/60 97 06/14/16 06:00 89 06/14/16 05:01 98 50 06/14/16 04:00 89 06/14/16 04:00 98.0 63 20 126/59 93 06/14/16 04:00 50 06/14/16 02:00 89 06/14/16 01:05 98 50 06/14/16 00:00 50 06/14/16 00:00 98.0 63 20 121/55 93 06/14/16 00:00 89 06/13/16 22:05 94 50 06/13/16 22:00 89 06/13/16 20:00 50 06/13/16 20:00 89 06/13/16 20:00 97.9 89 20 142/65 92 06/13/16 19:32 97 50 06/13/16 18:00 89 06/13/16 16:00 92 06/13/16 16:00 50 06/13/16 16:00 97.9 92 20 138/64 92 06/13/16 14:59 92 40 06/13/16 14:00 93 06/13/16 12:00 40 06/13/16 12:00 97.7 88 37 91 06/13/16 12:00 88 06/13/16 11:32 91 40 06/13/16 06/13/16 06/14/16 15:00 23:00 07:00 Intake Total 595 ml 625 ml 425 ml Output Total 4150 ml 1100 ml 550 ml Balance -3555 ml -475 ml -125 ml Intake Oral 400 ml 250 ml 250 ml IV Total 195 ml 375 ml 175 ml Output Urine Total 4150 ml 1100 ml 550 ml # Bowel Movements 1 1 . Laboratory Tests Test 06/13/16 06/14/16 03:27 04:13 White Blood Count 12.7 TH/MM3 13.3 TH/MM3 Red Blood Count 2.86 MIL/MM3 3.46 MIL/MM3 Hemoglobin 7.1 GM/DL 8.5 GM/DL Hematocrit 23.7 % 28.2 % Mean Corpuscular Volume 82.7 FL 81.3 FL Mean Corpuscular Hemoglobin 24.9 PG 24.5 PG Mean Corpuscular Hemoglobin 30.1 % 30.1 % Concent Red Cell Distribution Width 23.8 % 24.7 % Platelet Count 280 TH/MM3 293 TH/MM3 Mean Platelet Volume 6.9 FL 7.1 FL Neutrophils (%) (Auto) 79.6 % Lymphocytes (%) (Auto) 10.7 % Monocytes (%) (Auto) 7.0 % Eosinophils (%) (Auto) 1.7 % Basophils (%) (Auto) 1.0 % Neutrophils # (Auto) 10.6 TH/MM3 Lymphocytes # (Auto) 1.4 TH/MM3 Monocytes # (Auto) 0.9 TH/MM3 Eosinophils # (Auto) 0.2 TH/MM3 Basophils # (Auto) 0.1 TH/MM3 CBC Comment AUTO DIFF Differential Total Cells 100 Counted Neutrophils % (Manual) 76 % Band Neutrophils % 3 % Lymphocytes % 11 % Monocytes % 6 % Eosinophils % 2 % Basophils % 1 % Neutrophils # (Manual) 10.6 TH/MM3 Metamyelocytes 1 % Nucleated Red Blood Cells 1 /100 WBC Differential Comment FINAL DIFF MANUAL Toxic Vacuolation PRESENT Platelet Estimate NORMAL Platelet Morphology Comment NORMAL Basophilic Stippling FAINT Tear Drop Cells 1+ Ovalocytes 1+ Laboratory Tests Test 06/13/16 06/14/16 03:27 04:13 Sodium Level 149 MEQ/L 142 MEQ/L Potassium Level 3.3 MEQ/L 3.2 MEQ/L Chloride Level 106 MEQ/L 96 MEQ/L Carbon Dioxide Level 34.3 MEQ/L 42.7 MEQ/L Anion Gap 9 MEQ/L 3 MEQ/L Blood Urea Nitrogen 4 MG/DL 4 MG/DL Creatinine 0.28 MG/DL 0.33 MG/DL Estimat Glomerular Filtration 376 ML/MIN 311 ML/MIN Rate Random Glucose 74 MG/DL 84 MG/DL Calcium Level 8.2 MG/DL 8.9 MG/DL Magnesium Level 1.6 MG/DL Total Bilirubin 0.3 MG/DL Aspartate Amino Transf 20 U/L (AST/SGOT) Alanine Aminotransferase 16 U/L (ALT/SGPT) Alkaline Phosphatase 98 U/L Total Protein 5.4 GM/DL Albumin 1.9 GM/DL Imaging Chest X-Ray 06/03/16 0600 Signed Impressions: Service Date/Time: Friday, June 03, 2016 03:22 - CONCLUSION: 1. Cardiomegaly with bilateral pulmonary edema. 2. Moderate right pleural effusion. Vishnu Woodward MD Liver Ultrasound 06/03/16 0000 Signed Impressions: Service Date/Time: Friday, June 03, 2016 08:10 - CONCLUSION: 1. There is some sludge in the gallbladder. This can be seen with chronic gallbladder disease. 2. Fatty infiltration of the liver which appears to be enlarged. 3. No mechanical biliary tract obstruction. 4. Splenomegaly. Lázaro Frankel MD Brachial Plexus MRI 06/03/16 0000 Signed Impressions: Service Date/Time: Friday, June 03, 2016 12:42 - CONCLUSION: There is a complex multiloculated soft tissue and cystic mass measuring approximately 5.5 x 6.0 x 7.8 cm involving the subscapularis muscle along the anterior right scapula. The differential considerations include neoplastic disease, infection and hematoma. Recommend a CT scan of the right shoulder to pre-plan for CT-guided aspiration/biopsy of this abnormality. Lázaro Frankel MD Cervical Spine MRI 05/29/16 0000 Signed Impressions: Service Date/Time: Sunday, May 29, 2016 13:51 - CONCLUSION: Limited study but appears normal. Vishnu Woodward MD Brain MRI 05/29/16 0000 Signed Impressions: Service Date/Time: Sunday, May 29, 2016 13:51 - CONCLUSION: 1. Focal chronic ischemic change in the high right frontal parietal convexity stable from previous CT scan. 2. No acute intracranial abnormality. 3. Minimal nonspecific white matter changes. Vishnu Woodward MD Upper Extremity Ultrasound 05/28/16 0000 Signed Impressions: Service Date/Time: Saturday, May 28, 2016 10:16 - CONCLUSION: 1. Negative for deep venous thrombosis. Venous line noted in cephalic, subclavian and internal jugular vein. Horacio Gupta MD Abdomen X-Ray 04/29/16 0000 Signed Impressions: Service Date/Time: Friday, April 29, 2016 07:12 - CONCLUSION: Suspect Dobbhoff tube in the distal stomach. Garcia Lujan MD Chest X-Ray 05/20/16 0000 Signed Impressions: Service Date/Time: Friday, May 20, 2016 03:21 - CONCLUSION: Persistent mid and lower lung areas of consolidation or atelectasis being worse in the right. There has been mild improvement. Garcia Lujan MD Chest X-Ray 05/16/16 0600 Signed Impressions: Service Date/Time: April 03:21 - CONCLUSION: 1. Slight improvement in bilateral airspace disease over the last day. Horacio Gupta MD Chest X-Ray 05/15/16 0600 Signed Impressions: Service Date/Time: Sunday, May 15, 2016 04:31 - CONCLUSION: 1. Slight increase in airspace disease since May 13. Differential diagnosis includes pulmonary edema. Support apparatus unchanged. Horacio Gupta MD Chest X-Ray 05/13/16 0600 Signed Impressions: Service Date/Time: Friday, May 13, 2016 03:26 - CONCLUSION: 1. Stable exam compared with May 12 with bilateral mostly basilar airspace disease. Horacio Gupta MD Chest X-Ray 05/10/16 0600 Signed Impressions: Service Date/Time: Tuesday, May 10, 2016 02:45 - CONCLUSION: Worsening right lower lobe infiltrate. Jeremiah Walton Jr., MD Chest X-Ray 05/09/16 0600 Signed Impressions: Service Date/Time: April 02:52 - CONCLUSION: No significant change has occurred. Bill Zavala MD Chest X-Ray 05/08/16 06 Signed Impressions: Service Date/Time: Sunday, May 08, 2016 04:01 - CONCLUSION: No significant change has occurred. Bill Zavala MD Chest X-Ray 05/05/16 0600 Signed Impressions: Service Date/Time: Thursday, May 05, 2016 01:56 - CONCLUSION: Improved aeration bilaterally particularly in the left upper lobe. Tube and catheter are stable. Amador Brock MD Chest X-Ray 05/03/16 0000 Signed Impressions: Service Date/Time: Tuesday, May 03, 2016 06:40 - CONCLUSION: Increasing bilateral diffuse pulmonary infiltrates compared to the prior study. Lázaro Frankel MD Upper Extremity Ultrasound 05/02/16 0000 Signed Impressions: Service Date/Time: April 20:51 - CONCLUSION: No DVT. Garcia Lujan MD Abdomen X-Ray 04/29/16 0000 Signed Impressions: Service Date/Time: Friday, April 29, 2016 07:12 - CONCLUSION: Suspect Dobbhoff tube in the distal stomach. Garcia Lujan MD Physical Exam GENERAL: Awake and alert, on CPAP, NAD SKIN: Warm and moist. No generalized rash. HEENT: Veazie conjunctivae. Full EOM. No scleral icterus. Moist mucosa. NECK: Trach, site ok. Supple, no meningeal signs. CARDIOVASCULAR: Regular rate and rhythm. Distant heart sounds. RESPIRATORY: Decreased BS bilaterally. GASTROINTESTINAL: Abdomen soft, morbidly obese, not tender, not distended. MUSCULOSKELETAL: Extremities without clubbing, cyanosis. Has mild pitting edema. Incision is dry NEUROLOGICAL: Awake and following, responding : [place] in place, urine looks clear Assessment & Plan Remarks IMPRESSION E.faecalis and Pseudomonas bacteremia: from PICC line site with fevers: Central line associated blood stream infection(CLABSI). - PICC removed - repeat BC negative Scapular areas fluid collection, looks more of hematoma than abscess, no C/S sent MDR PSAE PNA, S/P Rx PSAE in urine: likely colonization or translocation of bacteria from PSAE bacteremia. - now with Enterococcus in UC Morbid obesity Sleep apnea Hx PE Anorexia RECOMMENDATION Continue Vanco IV (target trough 15-20) Continue Zerbaxa IV (ASP: has known MDR PSAE and now has bacteremia.) Continue Colistin nebs. - Will only suppress organism with Colistin given prior MDR and clinically stable at this point. Follow cultures If no other (+) BC, plan 14 days of Abx - anticipated end date Jun 18 Monitor progress Weaning per CCM as tolerated I will be OOT Dr Priscilla Land available if needed in my absence Dana Tam MD Jun 14, 2016 10:17
[2016-06-14] MEDS: POTASSIUM CHLORIDE 20 MEQ CONTROLLED RELEASE TAB PO SCH ×2 (10:59→21:21)
[2016-06-14] MEDS: VANCOMYCIN INJ 2,250 MG in SODIUM CHLORID 0.9% 500 ML INJ 500 ML IV SCH (12:15)
--- NOTE | 2016-06-14 15:29 | HHI.FPPN ---
Subjective Remarks Mr. Fortune was afebrile with stable vital signs overnight. Per EMR review, patient with adequate urine output overnight. Patient does not report any complaints overnight. He states that his nausea is improved; no reported abdominal pain. (Cody Kelly MD R2) Objective Vitals Vital Signs Date Time Temp Pulse Resp B/P Pulse Ox O2 Delivery O2 Flow Rate FiO2 06/14/16 15:00 97 40 06/14/16 14:00 67 06/14/16 12:00 40 06/14/16 12:00 65 06/14/16 12:00 97.7 65 22 141/65 98 06/14/16 10:00 71 06/14/16 08:49 94 40 06/14/16 08:00 40 06/14/16 08:00 60 06/14/16 08:00 97.7 60 20 123/60 97 06/14/16 06:00 89 06/14/16 05:01 98 50 06/14/16 04:00 89 06/14/16 04:00 98.0 63 20 126/59 93 06/14/16 04:00 50 06/14/16 02:00 89 06/14/16 01:05 98 50 06/14/16 00:00 50 06/14/16 00:00 98.0 63 20 121/55 93 06/14/16 00:00 89 06/13/16 22:05 94 50 06/13/16 22:00 89 06/13/16 20:00 50 06/13/16 20:00 89 06/13/16 20:00 97.9 89 20 142/65 92 06/13/16 19:32 97 50 06/13/16 18:00 89 06/13/16 16:00 92 06/13/16 16:00 50 06/13/16 16:00 97.9 92 20 138/64 92 I/O 06/13/16 06/13/16 06/13/16 06/14/16 06/14/16 06/14/16 07:00 15:00 23:00 07:00 15:00 23:00 Intake Total 1278 ml 595 ml 625 ml 425 ml 1257 ml Output Total 350 ml 4150 ml 1100 ml 550 ml 1750 ml Balance 928 ml -3555 ml -475 ml -125 ml -493 ml Intake Oral 480 ml 400 ml 250 ml 250 ml 250 ml IV Total 798 ml 195 ml 375 ml 175 ml 1007 ml Output Urine Total 350 ml 4150 ml 1100 ml 550 ml 1750 ml # Bowel Movements 1 1 1 1 (Cody Kelly MD R2) Result Diagram: 06/14/1641206/14/16412 Imaging Last Impressions Chest X-Ray 06/14/16 0600 Signed Impressions: Service Date/Time: Tuesday, June 14, 2016 04:34 - CONCLUSION: 1. Consolidative opacity at the right lung base most consistent with infiltrate and or effusion. 2. Moderate cardiomegaly Joshua Evangelista MD Liver Ultrasound 06/03/16 0000 Signed Impressions: Service Date/Time: Friday, June 03, 2016 08:10 - CONCLUSION: 1. There is some sludge in the gallbladder. This can be seen with chronic gallbladder disease. 2. Fatty infiltration of the liver which appears to be enlarged. 3. No mechanical biliary tract obstruction. 4. Splenomegaly. Lázaro Frankel MD Brachial Plexus MRI 06/03/16 0000 Signed Impressions: Service Date/Time: Friday, June 03, 2016 12:42 - CONCLUSION: There is a complex multiloculated soft tissue and cystic mass measuring approximately 5.5 x 6.0 x 7.8 cm involving the subscapularis muscle along the anterior right scapula. The differential considerations include neoplastic disease, infection and hematoma. Recommend a CT scan of the right shoulder to pre-plan for CT-guided aspiration/biopsy of this abnormality. Lázaro Frankel MD Cervical Spine MRI 05/29/16 0000 Signed Impressions: Service Date/Time: Sunday, May 29, 2016 13:51 - CONCLUSION: Limited study but appears normal. Vishnu Woodward MD Brain MRI 05/29/16 0000 Signed Impressions: Service Date/Time: Sunday, May 29, 2016 13:51 - CONCLUSION: 1. Focal chronic ischemic change in the high right frontal parietal convexity stable from previous CT scan. 2. No acute intracranial abnormality. 3. Minimal nonspecific white matter changes. Vishnu Woodward MD Upper Extremity Ultrasound 05/28/16 0000 Signed Impressions: Service Date/Time: Saturday, May 28, 2016 10:16 - CONCLUSION: 1. Negative for deep venous thrombosis. Venous line noted in cephalic, subclavian and internal jugular vein. Horacio Gupta MD Abdomen X-Ray 04/29/16 0000 Signed Impressions: Service Date/Time: Friday, April 29, 2016 07:12 - CONCLUSION: Suspect Dobbhoff tube in the distal stomach. Garcia Lujan MD Objective Remarks GEN: Morbidly obese male in NAD. DERM: Warm and dry. Nails bitten down No erythema or skin breakdown appreciated. Numerous skin folds 2/2 habitus. Bandage R lateral malleolus c/d/i. Bandage RUE c/d/i. HEENT: Tracheotomy site c/d/i. Poor dentition. CV: Distant heart sounds. RRR. Normal peripheral perfusion. RESP: Transmitted upper respiratory sounds. No wheezing GI: Abdomen soft, obese, non-tender. +BS MSK: External rotation of RLE. LE edema 2+ bilaterally. No calf tenderness NEURO: CN grossly normal. Peripheral motor and sensory function not tested Procedures 04/24- Started ventilation 05/02- Emergency Trach Exchange 06/03- PICC line removed 06/07- Debridement of RUE abscess (Dr. Velazquez), RUE drain 06/10- RUE drain removal (Cody Kelly MD R2) Date of Insertion: Apr 24, 2016 (Cody Kelly MD R2) A/P Assessment and Plan 31y with super morbid obesity, [id number] respiratory failure, tracheostomy seal leak, and HCAP Discharge Planning Days to weeks, pending weaning from mechanical ventilation. Ideally, return to home 2L MI and long-term rehab facility. If qualifies, consider emt intermediate vent facility depending on status. (Cody Kelly MD R2) Attending Attestation Pt. case discussed with resident physician I have read the above note and agree with the assessment/plan as discussed with me I was involved in all medical decision making for this patient Lázaro Rogers MD (Lázaro Rogers MD) Problem List: (1) Hematoma Status: Acute Plan: - Daily dressing changes with xeroform and primapore - Daily PT/OT, as tolerated. PT targeting RUE weakness. - Continue Abx (see bactermia) Impression: Hematoma contributing to RUE weakness x4 weeks. S/p I&D by Dr. Velazquez (06/07). Small hematoma found during procedure inconsistent with 6cm x 6cm x 8cm abscess suggested by MRI brachial plexus. Ddx for RUE weakness includes hematoma vs C6/C7 neuropathy from morbid obesity and positioning. DVT, L hemispheric pathology, and seizure as causes RUE ruled out (see below). EMG scheduled, not performed as pt de-saturated to 80s on attempt. Could re- consider if RUE not improve s/p I&D and physical therapy. Imaging: - US negative for DVT (05/28) - MRI brain (04/28) no acute intracranial process - MRI C-spine (05/29): grossly wnl - EEG (05/29): diffuse mild encephalopathy vs normal Stage 2 sleep - MRI brachial plexus (06/03): "Complex multiloculated soft tissue and cystic mass 5.5 x 6 x 7.8 cm involving subscapularis muscle along anterior R scapula - Pathology report (06/07): fragments of blood clot admixed with few minute fragments of adipose and skeletal muscle tissue (2) Bacteremia Status: Acute Plan: - Vancomycin IV daily goal trough 15-20, (06/03 -- ) D#11 (at least 14 days, per ID) - Zerbaxa IV q8h (06/05-- ) D#9 - Colistin 75mg q8h NEB - Acetaminophen 325mg PRN fever - Trend CBC, CMP daily Impression: Pseudomonas aeruginosa and Enterococcus faecalis bacteremia secondary to PICC infection vs HCAP. Repeat BCx 06/06 negative (compared to positive 06/03 culture). However, UCx 06/06 grew +Group D Enterococcus. Pt asymptomatic for urinary symptoms. Has willard placed. Likely colonized. Serial CXR show cardiomegaly w b/l pulm edema and R pleural effusion. Abx History Zosyn 4.5gm IV q6h (04/24 - 04/29) Levaquin 750mg IV q24h (04/24-04/30) Zerbaxa 1.5 g IV q8h (04/29 - 05/07) Vancomycin IV (04/24 - 05/06) Ceftriaxone IV (05/07 - 05/25) Linezolid 600 mg PO BID (05/06 - 05/13) Zosyn 3.375 q6h (06/04- 06/05) Vancomycin (12/5-- ) Zerbaxa (ceftozolane/tazobactam) (06/05 --) (3) Paroxysmal a-fib Status: Chronic Plan: - Lovenox 150mg IV BID, per critical care - H/H downtrended. Continue to monitor and adjust Lovenox, as needed, if cause of worsening anemia. Impression: Held for surgery 06/07. DVT ppx re-initiated 06/08. Returned to therapeutic Lovenox 06/11. Home home Xarelto. EKG 05/17: sinus rhythm (4) Diarrhea Status: Resolved Plan: - Continue to monitor Impression: Improved. Negative C. diff PCR. Likely secondary to food intolerance or medication side effect. Chronicity unknown. Pt states "always" had, but new ailment to team. (5) On mechanically assisted ventilation Status: Acute Plan: - CPAP (PS 12, PEEP 5, FiO2 40%) via trach. Advance to TC/TP, as tolerated. Weaning per CC - Pulmicort BID REYES - Duonebs q2h PRN - Singulair 10mg daily Impression: Weaning from vent appears to have hit plateau- [facility] plans for dispo? Acute on chronic hypoxemic respiratory failure secondary to HCAP ( resolved) and tracheostomy leak (s/p exchange 05/02). Baseline 6L NC at rehab. Mechanical ventilation initiated 04/24. Solumedrol (05/10-06/03) (6) CHF (congestive heart failure) Status: Chronic Plan: - Bumex 1mg PO daily + 40 KCl BID - 1.5L fluid restriction, monitor I/Os, monitor renal function, peripheral edema Impression: Suspected HF with poor EF, though unable to confirm via ECHO () due to poor imaging. Unknown EF. BNP elevated, downtrended to wnl. (7) Hypertension Status: Chronic Plan: - Cardiazem 90mg QID - Labetalol 10mg IV PRN SBP 160+ (8) Nausea Status: Chronic Plan: - Tums 2 PRN nausea/stomach pain - Zofran 4mg PO q6h PRN - Compazine 5mg TID PRN - Protonix 20mg BID Impression: Chronic. Ddx: GERD vs psychosomatic vs impaired gastric emptying vs medication side effect. (9) Anemia Status: Acute Plan: -Continue to monitor daily Impression: 06/12 Hgb 8.6 -> 06/13 Hgb 7.1----> 1 U pRBC -> 06/14 8.5 (10) Stable medical conditions Status: Chronic Plan: HYPERLIPIDEMIA -Atorvastatin 10mg daily and Tricor 48mg daily NORMOCYTIC ANEMIA - Ferrous sulfate 325mg PO daily - Multivitamin 1 tab PO daily MDD: - Pt reports stable mood; some anhedonia suspected. Previously, refusing meals , shower, PT - Sertraline 100 mg PO daily - Seroquel 100mg HS INSOMNIA -Zolpidem 5mg HS PRN GOUT -Allopurinol 300mg daily HYPOTHYROIDISM 08/2015- TSH low, free T4 grossly wnl (05/27/16) -Synthroid 50 mcg PO daily FUNGAL INFECTION -Nystatin powder and miconazole creme to skin folds MORBID OBESITY WITH BMI 60-69 -see above plan for mechanical ventilation RESOLVED CONDITIONS THIS HOSPITAL VISIT - Cellulitis of Chest Wall: completed course linezolid (05/06-05/13), per ID recs - Yeast UTI: completed course Diflucan. UCx 05/01: Dionne albicans. Repeat UCx 05/05: Proteus Mirabilis - HCAP: s/p multiple abx (11) Nutrition, metabolism, and development symptoms Status: Acute Plan: FEN: Fluids: PO (Limited to 1.5L/day PO) Electrolytes: 40KCl BID. Chronically hypokalemic, replete per protocol Nutrition: 2Kcal heart healthy diet. Transitioned to oral feeds (05/29). Needs help with feeding. Wt loss stagnated consider further calorie restriction. PPX: GI ppx: Protonix 20mg BID DVT ppx: Lovenox 150mg BID Pain: Oxycodone 7.5/325 q4h PRN Bowels: Senna 1 tab HS PRN Wt: Admission: 480 lbs. Wt 06/07 ~445 lbs. Continue monitor, encourage, modify/restrict diet, as appropriate (Cody Kelly MD R2) Problem Qualifiers (1) CHF (congestive heart failure): Qualified Code: I50.9 - Acute on chronic congestive heart failure, unspecified congestive heart failure type (2) Hypertension: Qualified Code: I10 - Essential hypertension (3) Anemia: Qualified Code: D64.9 - Anemia, unspecified type Cody Kelly MD R2 Jun 14, 2016 15:29 Lázaro Rogers MD Jun 14, 2016 23:04
[2016-06-14] MEDS: MORPHINE SULFATE 4 MG/ML INJ IV PUSH PRN (19:54)
[2016-06-14] MEDS: QUEtiapine FUMARATE 100 MG TAB PO SCH (19:54)
[2016-06-15] VITALS (18 sets, daily range): BP systolic 127–148; BP diastolic 61–69; PULSE 73–100; RESP 20–25; TEMP 97.5–98.7; O2SAT 94–100
[2016-06-15] MEDS: RESP: COLISTIN 150 MG VIAL NEB SCH ×3 (00:24→20:45)
[2016-06-15] MEDS: CEFTOLOZANE-TAZOBACTAM INJ 1,500 MG in SODIUM CHLORIDE 0.9% INJ 100 ML IV SCH ×4 (03:12→22:31)
[2016-06-15] MEDS: VANCOMYCIN INJ 2,250 MG in SODIUM CHLORID 0.9% 500 ML INJ 500 ML IV SCH ×2 (04:16→22:31)
[2016-06-15] MEDS: LEVOTHYROXINE SODIUM 50 MCG TAB PO SCH (04:16)
[2016-06-15] MEDS ORDERED: PHARMACY ORDERED LAB XX ONE ×2 (05:45→23:45)
[2016-06-15] MEDS: RESP: BUDESONIDE 0.5 MG/2 ML NEB NEB SCH ×2 (07:37→19:45)
[2016-06-15] MEDS: RESP: ALBUTEROL 2.5 MG/IPRATROPIUM 0.5 MG NEB (PRN) NEB (07:37)
--- NOTE | 2016-06-15 07:57 | HHI.CCPN ---
Subjective Remarks/Hospital Course 31 year old morbidly obese (BMI 68) male with chronic respiratory failure s/p tracheostomy 4 years ago, atrial fibrillation and pulmonary embolism on Xarelto , COPD, CHF and h/o HTN. He presented from [facility] with low oxygen saturation apparently his oxygen saturation was 82% on RA. He was placed back on 6L of oxygen via his trach mask and given a breathing treatment, initially improved however he started drifting back to low 80s again. Chest x-ray showed bibasilar infiltrates and pulmonary edema. Patient was admitted to the [facility] service and was started on IV steroids IV vancomycin and Zosyn and Levaquin for healthcare associated pneumonia. After starting ACV, patient was more awake but there was a significant amount of air leak around his tracheostomy. Patient has had a Shiley 6.0 Proximal XLT, but the airplane pilot crop dusting balloon had been cut off. 05/02 the patient became acutely hypoxemic with a large cuff leak, underwent emergency trach exchange at bedside by Dr. Macias. FiO2 65% PEEP 14 05/13 Patient is on ventilator via trach, on Fentanyl infusion however he is awake and alert. On PRVC with FIO2 40%. Afebrile. 05/14 No acute events overnight. Tmax 99.8. Patient is awake, alert on ventilator via trach still requiring increase O2. On PRVC with PEEP: 10 and FIO2 70%. 05/15 patient acutely desaturated after he was found. Saturation went down to 70% on 100% oxygen. Bag and mask ventilation carried out, with eventual improvement on oxygen saturation to 85%. Patient was placed on PC/AC mode of ventilation, with PEEP of 15 and instructed to pressure of 30. Eventually oxygen saturation improved to 95%. Lasix him today as the chest x-ray from today shows increasing bilateral infiltrate and pulmonary edema. Also sputum culture will be sent 05/16 Patient is on Fentanyl and Diprivan infusion but awake and alert. Afebrile. On PC/AC with PEEP:15, IP: 22, IT:1.3 and FIO2 50% 05/17 Patient is off Diprivan and remains on Fentanyl infusion for sedation. On PC/AC with PEEP: down 10 and FIO2 40%. Afebrile. 05/18 Patient remains on ventilator via trach on PC/AC with PEEP:12, FIO2 40%, IP:22, IT:1.0. On Fentanyl infusion 05/19 No acute events overnight. On Fentanyl infusion but awake and alert. Afebrile. 05/20 Tolerating C Pap 17/12 FIO2 40, sats 98%. RSBI in 20s, appears can be weaned further. Afebrile. Speech therapy evaluated and ok for regular diet. Starting with full liquid. 05/21 Will wean PSV to 15/10. Tolerated full liquids, will advance to regular diet per speech recs. Subjective: 05/22 On PSV 15/10 FIO2 40 with sats 92%. Smiling today. Glad to be eating regular food again. 05/23 No acute events overnight. Remains on CPAP with PS 15, PEEP:10 and FIO2 40 %. Afebrile. Off Fentanyl drip. Afebrile. Awake and alert. 05/24 Patient is on CPAP 06/06 with 40% FIO2. Afebrile. Awake and alert, on no sedation. 05/25 No acute events overnight. Patient was placed back on PC/AC overnight. Tolerated CPAP trials during day yesterday. Awake and alert. On no drips. Afebrile. 05/26 Afebrile. Tmax 98.6. Today the patient complained of nausea requiring Zofran. The patient has a lack of an appetite, with noted hypoglycemia early this a.m. blood glucose level 69. Patient tolerating CPAP well greater than 12 hours in the last 24 hours. 05/27 The patient tolerated CPAP for over 36 hours, O2 sat a knee 94% on FIO2 40 %. The patient had an increase in appetite. The patient continues on full liquid diet. 05/28 The patient declined physical therapy treatment, yesterday and also overnight declined to be moved by nursing staff. The patient refused dinner last evening, of note patient was reevaluated by speech therapy and can consume a heart healthy diet with thin liquids. The patient continues on physical therapy for strengthening exercises of all extremities specifically noted right upper extremity continues to be weak with gross fibrillations noted in hand and forearm. 05/29 Afebrile. No change in right upper extremity weakness. The patient was seen by neurology yesterday plan for MRI today if possible in hospital MRI, and EMG studies. No complaints overnight. Patient continues to refuse to have activities performed, movement in bed. The patient appears to be depressed, psychiatry consulted. 05/30: Patient alert awake on CPAP. Following commands. Psych agrees the patient is depressed. MRI brain no acute findings 05/31: Awake alert. on PS 15/8. EMG could not be completed due to patient becoming anxious. Otherwise no acute events reported overnight 06/01: Remains PS from 15/8. Right upper extremity weakness persists. EMG to be repeated on Friday. Will need MRI of the brachial plexus. Chest x-ray is unchanged 06/02: States that "not feeling well". Febrile to 101.5. White count increasing but still within the normal range. Pancultured. We'll request ID reevaluation. 06/03: Resting in bed on C Pap/pressure support via tracheostomy. One out of 2 sets of blood cultures sent on 06/02 positive for gram-positive cocci. 06/04: Resting in bed on mechanical ventilation via tracheostomy. Afebrile overnight. MRI brachial plexus (06/03) revealed a collection near the right subscapularis muscle, possibly an abscess. Discussed with ID, orthopedics Dr. Velazquez consulted. I discussed the case with Dr. Velazquez this morning who feels this is probably an abscess however would be difficult to access surgically and he plans to set up percutaneous drainage by interventional radiology. 06/05: Resting in bed on mechanical ventilation via tracheostomy. Remains afebrile. Reportedly IR cannot do percutaneous drainage of collection involving right subscapularis muscle. 06/06: Resting in bed on mechanical ventilation via tracheostomy. Can actually speak around the trach. Remains afebrile. Dr. Velazquez evaluated patient and is scheduling surgery for drainage of fluid collection involving the right subscapularis muscle. 06/07: Resting in bed on mechanical ventilation via tracheostomy. Awaiting surgery today. 06/08: Status post I&D of collection near right shoulder/subscapularis on 06/[address] Velazquez. This morning patient is awake and alert complained of some pain at the surgical site. Remains on mechanical ventilation on C Pap/pressure support. 06/09: Sleeping, arousable. On mechanical ventilation with C Pap/pressure support overnight. Labs pending 06/10 No acute events overnight. On CPAP with PS 12, PEEP: 8, FIO2 40%. Afebrile. 06/11 Patient remains on CPAP with PS 10, PEEP: 8 and FIO2 40%. Afebrile. 06/12: No acute events overnight. Remains on CPAP 10/5. No specific complaints 06/13: Tolerating C Pap 10 over 5. Awake and alert following commands. Hemoglobin dropped from 8.6-7.1, no obvious bleeding. Sodium 140-149. Will give 1 unit of PRBC with 1 mg IV Bumex 06/14 No acute events overnight. On CPAP with PS 10, PEEP:5 and FIO2 50%. Afebrile. 06/15 No acute events overnight. Remains on CPAP 10/5 with 40% FIO2. Afebrile. Objective Vital Signs Date Time Temp Pulse Resp B/P Pulse Ox O2 Delivery O2 Flow Rate FiO2 06/15/16 07:31 98 40 06/15/16 06:00 74 06/15/16 04:00 97.5 20 127/61 Intake and Output 06/14/16 06/14/16 06/14/16 07:59 15:59 23:59 Intake Total 425 ml 1257 ml 525 ml Output Total 550 ml 1750 ml 750 ml Balance -125 ml -493 ml -225 ml Result Diagram: 06/14/16 0413 06/14/16 0413 Imaging Last Impressions Chest X-Ray 06/14/16 0600 Signed Impressions: Service Date/Time: Tuesday, June 14, 2016 04:34 - CONCLUSION: 1. Consolidative opacity at the right lung base most consistent with infiltrate and or effusion. 2. Moderate cardiomegaly Joshua Evangelista MD Liver Ultrasound 06/03/16 0000 Signed Impressions: Service Date/Time: Friday, June 03, 2016 08:10 - CONCLUSION: 1. There is some sludge in the gallbladder. This can be seen with chronic gallbladder disease. 2. Fatty infiltration of the liver which appears to be enlarged. 3. No mechanical biliary tract obstruction. 4. Splenomegaly. Lázaro Frankel MD Brachial Plexus MRI 06/03/16 0000 Signed Impressions: Service Date/Time: Friday, June 03, 2016 12:42 - CONCLUSION: There is a complex multiloculated soft tissue and cystic mass measuring approximately 5.5 x 6.0 x 7.8 cm involving the subscapularis muscle along the anterior right scapula. The differential considerations include neoplastic disease, infection and hematoma. Recommend a CT scan of the right shoulder to pre-plan for CT-guided aspiration/biopsy of this abnormality. Lázaro J. Siragusa, MD Cervical Spine MRI 05/29/16 0000 Signed Impressions: Service Date/Time: Sunday, May 29, 2016 13:51 - CONCLUSION: Limited study but appears normal. Vishnu Woodward MD Brain MRI 05/29/16 0000 Signed Impressions: Service Date/Time: Sunday, May 29, 2016 13:51 - CONCLUSION: 1. Focal chronic ischemic change in the high right frontal parietal convexity stable from previous CT scan. 2. No acute intracranial abnormality. 3. Minimal nonspecific white matter changes. Vishnu Woodward MD Upper Extremity Ultrasound 05/28/16 0000 Signed Impressions: Service Date/Time: Saturday, May 28, 2016 10:16 - CONCLUSION: 1. Negative for deep venous thrombosis. Venous line noted in cephalic, subclavian and internal jugular vein. Horacio Gupta MD Abdomen X-Ray 04/29/16 0000 Signed Impressions: Service Date/Time: Friday, April 29, 2016 07:12 - CONCLUSION: Suspect Dobbhoff tube in the distal stomach. Garcia Lujan MD Objective Remarks GENERAL: Patient is 31yo on ventilator via trach, awakens and follows commands. Super Morbidly obese. SKIN: Warm and dry. HEAD: Normocephalic. EYES: No scleral icterus. No injection or drainage. NECK: Supple, trachea midline. Shiley 6.0 Proximal XLT, (new trach placed ) CARDIOVASCULAR: No murmurs, gallops, or rubs by limited exam. RESPIRATORY: On mechanical ventilation, Breath sounds equal bilaterally. Distant secondary to habitus. GASTROINTESTINAL: Abdomen soft, obese, non-tender, nondistended. Multiple noted areas of ecchymotic bruising secondary to subcutaneous injections MUSCULOSKELETAL: No cyanosis, or edema. Pedal edema. Wound on lateral aspect of right lower leg above lateral malleolus , dressing C/D/I. right upper extremity motor strength, inability to perform flexion, or pronation, hand pastry baker strength 2/5. Dressing around the right axilla/shoulder Neuro: Arousable. Moves all extremities with focal deficit right upper extremity as above. 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 -status post exchange with new Shiley 6.0 Proximal XLT 05/02/16 Chronic Respiratory Failure s/p Tracheostomy 4 years ago (Shiley 6.0 Proximal XLT) Probable right brachial plexus injury COPD/obesity hypoventilation syndrome Morbid Obesity BMI 67 History of pulmonary embolism 4 years ago Chronic atrial fibrillation Anxiety CHF (Echo 2013 EF 40-45%; ECHO 08/2015 showing a grossly normal systolic function) Hypertension Hypothyroidism PLAN NEURO: CO2 narcosis - resolved Critical care polyneuropathy Right upper extremity weakness 05/21-possibly secondary to nerve compression, C6 , C7 (brachial plexus) Pain Anxiety Depression -Collection near right subscapularis muscle(On MRI 06/03) - abscess status post I &D on 06/07 -EMG/ NCV could not be completed on 05/[address] Castillo -Clinically has right brachial plexus involvement. MRI of brachial plexus on 06/03 revealed collection involving right subscapularis muscle- s/p I & D on 06/[address] Velazquez. -Continued PT daily, with strengthening exercise (encouraged patient to participate) patient counseled on the importance. -Neurology Dr. Cheek-MRI brain C spine no acute findings. -Venous Doppler RUE 05/28-negative for DVT - On Seroquel. Continue Zoloft 50mg daily -On morphine 4 mg IV every 3 hours as needed for breakthrough pain. 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 Attempt TP/ TC as beatriz - Pulm toilet, trach care - s/p Bronchoscopy 05/11 -follow up on BAL results negative - DuoNeb every 6 hours scheduled, q 2 prn. - Pulmicort BID (home med), Continue Singulair 10 mg po daily CV: CHF exacerbation Pulmonary edema Paroxysmal atrial fibrillation (chronic) Hyperlipidemia -Monitor HR and BP keep MAP>65mmHg -Cardizem 90mg QID. Bumex to 1mg daily PO. -Continue Lipitor 10 g by mouth daily. Continue TriCor 40 mg by mouth daily -Therapeutic Lovenox 150 mg twice a day GI: Super morbid obesity with BMI of 63 -Regular diet ,thin liquids per speech recs. -Liver US 06/03: Fatty liver, sludge in gall bladder, splenomegaly, no mechanical obstruction of bile duct noted. -On Protonix 20mg BID -Multivitamin to medication regimen FEN/RENAL: - Monitor renal function , I/O. - Electrolytes replacement per protocol. - Bumex 1mg PO daily, KCL 40meq Q12 ID: Healthcare associated pneumonia Sepsis New fever MDRO Cellulitis right arm-resolved Leukocytosis-trending down Enterococcal faecalis bacteremia, Pseudomonas bacteremia (06/02, 06/03) -Rocephin (05/12- 05/25) -Blood culture: aerobic and anaerobic bottles - enterococcus faecalis, pseudomonas aeruginosa 06/02, 06/03 -Urine culture 06/02 pseudomonas aeruginosa Wound culture 06/02 pseudomonas aeruginosa Sputum culture 06/02 Pseudomonas -Urine cx: Proteus Mirabilis 05/05 -Sputum cx: Providencia 05/05- resolved -Wound cx: 05/13 Proteus, Pseudomonas, Group D Enterococcus -Wound culture Pseudomonas MDR 04/27 -Sputum culture-Pseudomonas MDR- 04/27 -Bronchoscopy and re-culture 05/10 follow up on BAL results-neg to date -Follow up on sputum cx from 05/15- NGTD -Continue abx per ID ( IV vancomycin, colistin nebs, Zerbaxa for MDR pseudomonas in blood cultures) MRI brachial plexus (06/03) revealed a collection involving right subscapularis muscle near right anterior axilla , possibly an abscess Dr. Velazquez performed drainage of collection surgically on 06/07. HEME: History of PE on chronic anticoagulation with Xarelto Anemia, iron deficiency and anemia of critical illness. -Monitor CBC, transfuse 1U PRBC 06/13 -Xarelto for PE 4 yrs ago. -Xarelto.held, On therapeutic Lovenox 150 mg twice a day -Ferrous sulfate 300 mg/q day ENDO: Hypothyroidism -On SSI (Low scale) -Continue levothyroxine 50 mcg po daily -Free T4 1.52 PROPH: -Bilateral lower extremity SCDs. 150 mg twice a day GI prophylaxis- Protonix 20mg BID LINES: - PICC line RUE- No DVT on US 05/02 - removed on 06/03. Out of bed with assistance. PT out of bed with vent. OT. Follow up on labs today Level 3 Flory Martino MD Jun 15, 2016 07:57
[2016-06-15] MEDS: ALLOPURINOL 300 MG TAB PO SCH (08:10)
[2016-06-15] MEDS: FENOFIBRATE 48 MG TAB PO SCH (08:10)
[2016-06-15] MEDS: PANTOPRAZOLE SOD 20 MG DELAYED RELEASE TAB PO SCH ×2 (08:11→20:30)
[2016-06-15] MEDS: SERTRALINE HCL 100 MG TAB PO SCH (08:11)
[2016-06-15] MEDS: MONTELUKAST SODIUM 10 MG TAB PO SCH (08:11)
[2016-06-15] MEDS: ATORVASTATIN 10 MG TAB PO SCH (08:11)
[2016-06-15] MEDS: FERROUS SULFATE 325 MG (65 MG ELEMENTAL IRON) TAB PO SCH (08:11)
[2016-06-15] MEDS: BUMETANIDE 1 MG TAB PO SCH (08:11)
[2016-06-15] MEDS: DILTIAZEM HCL 90 MG TAB PO SCH ×4 (08:11→20:30)
[2016-06-15] MEDS: MULTIVITAMIN TAB PO SCH (08:11)
[2016-06-15] MEDS: SODIUM CHLORIDE 0.9% FLUSH 5 ML FLUSH IVF SCH ×2 (08:12→20:30)
[2016-06-15] MEDS: COLLAGENASE OINT 30 GM TUBE TOP SCH (08:13)
[2016-06-15] MEDS: NYSTATIN 100,000 U/GM PWD 15 GM BTL TOPICAL SCH ×2 (08:13→20:30)
[2016-06-15] MEDS: MICONAZOLE NITRATE 2% CREAM 15 GM TOP SCH ×2 (08:13→20:30)
--- NOTE | 2016-06-15 08:14 | HHI.FPPN ---
Subjective Remarks Mr. Fortune was afebrile with stable vital signs overnight. Adequate urine output per EMR. Patient denied complaints overnight. Patient reports 1-2 BM/ day. No respiratory complaints. (Cody Kelly MD R2) Objective Vitals Vital Signs Date Time Temp Pulse Resp B/P Pulse Ox O2 Delivery O2 Flow Rate FiO2 06/15/16 07:31 98 40 06/15/16 06:00 74 06/15/16 04:22 96 40 06/15/16 04:00 97.5 83 20 127/61 96 06/15/16 04:00 40 06/15/16 04:00 74 06/15/16 02:00 74 06/15/16 01:04 94 40 06/15/16 00:00 40 06/15/16 00:00 97.7 73 20 132/65 96 06/15/16 00:00 74 06/14/16 22:25 94 40 06/14/16 22:00 74 06/14/16 20:00 98.0 79 20 134/63 96 06/14/16 20:00 40 06/14/16 20:00 74 06/14/16 18:00 74 06/14/16 16:00 40 06/14/16 16:00 97.9 68 20 127/60 96 06/14/16 16:00 68 06/14/16 15:00 97 40 06/14/16 14:00 67 06/14/16 12:00 40 06/14/16 12:00 65 06/14/16 12:00 97.7 65 22 141/65 98 06/14/16 10:00 71 06/14/16 08:49 94 40 I/O 06/14/16 06/14/16 06/14/16 06/15/16 06/15/16 06/15/16 07:00 15:00 23:00 07:00 15:00 23:00 Intake Total 425 ml 1257 ml 525 ml 725 ml Output Total 550 ml 1750 ml 750 ml 550 ml Balance -125 ml -493 ml -225 ml 175 ml Intake Oral 250 ml 250 ml 250 ml 250 ml IV Total 175 ml 1007 ml 275 ml 475 ml Output Urine Total 550 ml 1750 ml 750 ml 550 ml # Bowel Movements 1 (Cody Kelly MD R2) Result Diagram: 06/14/163 06/14/163 Imaging Last Impressions Chest X-Ray 06/14/16 0600 Signed Impressions: Service Date/Time: Tuesday, June 14, 2016 04:34 - CONCLUSION: 1. Consolidative opacity at the right lung base most consistent with infiltrate and or effusion. 2. Moderate cardiomegaly Joshua Evangelista MD Liver Ultrasound 06/03/16 0000 Signed Impressions: Service Date/Time: Friday, June 03, 2016 08:10 - CONCLUSION: 1. There is some sludge in the gallbladder. This can be seen with chronic gallbladder disease. 2. Fatty infiltration of the liver which appears to be enlarged. 3. No mechanical biliary tract obstruction. 4. Splenomegaly. Lázaro Frankel MD Brachial Plexus MRI 06/03/16 0000 Signed Impressions: Service Date/Time: Friday, June 03, 2016 12:42 - CONCLUSION: There is a complex multiloculated soft tissue and cystic mass measuring approximately 5.5 x 6.0 x 7.8 cm involving the subscapularis muscle along the anterior right scapula. The differential considerations include neoplastic disease, infection and hematoma. Recommend a CT scan of the right shoulder to pre-plan for CT-guided aspiration/biopsy of this abnormality. Lázaro Frankel MD Cervical Spine MRI 05/29/16 0000 Signed Impressions: Service Date/Time: Sunday, May 29, 2016 13:51 - CONCLUSION: Limited study but appears normal. Vishnu Woodward MD Brain MRI 05/29/16 0000 Signed Impressions: Service Date/Time: Sunday, May 29, 2016 13:51 - CONCLUSION: 1. Focal chronic ischemic change in the high right frontal parietal convexity stable from previous CT scan. 2. No acute intracranial abnormality. 3. Minimal nonspecific white matter changes. Vishnu Woodward MD Upper Extremity Ultrasound 05/28/16 0000 Signed Impressions: Service Date/Time: Saturday, May 28, 2016 10:16 - CONCLUSION: 1. Negative for deep venous thrombosis. Venous line noted in cephalic, subclavian and internal jugular vein. Horacio Gupta MD Abdomen X-Ray 04/29/16 0000 Signed Impressions: Service Date/Time: Friday, April 29, 2016 07:12 - CONCLUSION: Suspect Dobbhoff tube in the distal stomach. Garcia Lujan MD Objective Remarks GEN: Morbidly obese male in NAD. DERM: Warm and dry. No erythema or skin breakdown appreciated. Numerous skin folds 2/2 habitus. Bandage R lateral malleolus c/d/i. Bandage RUE c/d/i. HEENT: Tracheotomy site c/d/i. Poor dentition. CV: Distant heart sounds. RRR. Normal peripheral perfusion. RESP: Transmitted upper respiratory sounds. No wheezing GI: Abdomen soft, obese, non-tender. +BS MSK: External rotation of RLE. LE edema 2+ bilaterally. No calf tenderness NEURO: CN grossly normal. Peripheral motor and sensory function not tested Procedures 04/24- Started ventilation 05/02- Emergency Trach Exchange 06/03- PICC line removed 06/07- Debridement of RUE abscess (Dr. Velazquez), RUE drain 06/10- RUE drain removal (Cody Kelly MD R2) Date of Insertion: Apr 24, 2016 (Cody Kelly MD R2) A/P Assessment and Plan 31y with super morbid obesity, xroft-pi-[id number] respiratory failure, tracheostomy seal leak, and HCAP Discharge Planning Days to weeks, pending weaning from mechanical ventilation. Ideally, return to home 2L [place] and long-term rehab facility. If qualifies, consider longterm vent facility depending on status. (Cody Kelly MD R2) Attending Attestation Patient examined and case discussed with resident physician I have read the above note and agree with the assessment/plan is discussed with me I was involved in all medical decision making for this patient Lázaro Rogers M.D. (Lázaro Rogers MD) Problem List: (1) Hematoma Status: Acute Plan: - Daily dressing changes with xeroform and primapore - Daily PT/OT, as tolerated. PT targeting RUE weakness. - Continue Abx (see bactermia) Impression: Hematoma contributing to RUE weakness x4 weeks. S/p I&D by Dr. Velazquez (06/07). Small hematoma found during procedure inconsistent with 6cm x 6cm x 8cm abscess suggested by MRI brachial plexus. Ddx for RUE weakness includes hematoma vs C6/C7 neuropathy from morbid obesity and positioning. DVT, L hemispheric pathology, and seizure as causes RUE ruled out (see below). EMG scheduled, not performed as pt de-saturated to 80s on attempt. Could re- consider if RUE not improve s/p I&D and physical therapy. Imaging: - US negative for DVT (05/28) - MRI brain (04/28) no acute intracranial process - MRI C-spine (05/29): grossly wnl - EEG (05/29): diffuse mild encephalopathy vs normal Stage 2 sleep - MRI brachial plexus (06/03): "Complex multiloculated soft tissue and cystic mass 5.5 x 6 x 7.8 cm involving subscapularis muscle along anterior R scapula - Pathology report (06/07): fragments of blood clot admixed with few minute fragments of adipose and skeletal muscle tissue (2) Bacteremia Status: Acute Plan: - Vancomycin IV daily goal trough 15-20, (06/03 -- ) Stop 12 per ID - Zerbaxa IV q8h (06/05-- ) Stop 1220 per ID - Colistin 75mg q8h NEB Stop 06/18 per ID - Acetaminophen 325mg PRN fever - Trend CBC, CMP daily Impression: Pseudomonas aeruginosa and Enterococcus faecalis bacteremia secondary to PICC infection vs HCAP. Repeat BCx 06/06 negative (compared to positive 06/03 culture). However, UCx 06/06 grew +Group D Enterococcus. Pt asymptomatic for urinary symptoms. Has willard placed. Likely colonized. Serial CXR show cardiomegaly w b/l pulm edema and R pleural effusion. Abx History Zosyn 4.5gm IV q6h (04/24 - 04/29) Levaquin 750mg IV q24h (04/24-04/30) Zerbaxa 1.5 g IV q8h (04/29 - 05/07) Vancomycin IV (04/24 - 05/06) Ceftriaxone IV (05/07 - 05/25) Linezolid 600 mg PO BID (05/06 - 05/13) Zosyn 3.375 q6h (06/04- 06/05) Vancomycin (06/03-- ) Zerbaxa (ceftozolane/tazobactam) (06/05 --) (3) On mechanically assisted ventilation Status: Acute Plan: - CPAP (PS 10, PEEP 5, FiO2 40%) via trach. Advance to TC/TP, as tolerated. Weaning per CC - Pulmicort BID REYES - Duonebs q2h PRN - Singulair 10mg daily Impression: Weaning from vent appears to have hit plateau- longterm plans for dispo? Acute on chronic hypoxemic respiratory failure secondary to HCAP ( resolved) and tracheostomy leak (s/p exchange 05/02). Baseline 6L NC at rehab. Mechanical ventilation initiated 04/24. Solumedrol (05/10-06/03) (4) Paroxysmal a-fib Status: Chronic Plan: -Sinus rhyth, regular rate at this time - Lovenox 150mg IV BID, per critical care (5) CHF (congestive heart failure) Status: Chronic Plan: - Bumex 1mg PO daily + 40 KCl BID - 1.5L fluid restriction, monitor I/Os, monitor renal function, peripheral edema Impression: Suspected HF with poor EF, though unable to confirm via ECHO () due to poor imaging. Unknown EF. BNP elevated, downtrended to wnl. (6) Hypertension Status: Chronic Plan: - Cardiazem 90mg QID - Labetalol 10mg IV PRN SBP 160+ (7) Nausea Status: Chronic Plan: - Tums 2 PRN nausea/stomach pain - Zofran 4mg PO q6h PRN - Compazine 5mg TID PRN - Protonix 20mg BID Impression: Chronic. Ddx: GERD vs psychosomatic vs impaired gastric emptying vs medication side effect. (8) Anemia Status: Acute Plan: -Continue to monitor daily Impression: 06/12 Hgb 8.6 -> 06/13 Hgb 7.1----> 1 U pRBC -> 06/14 8.5 (9) Stable medical conditions Status: Chronic Plan: HYPERLIPIDEMIA -Atorvastatin 10mg daily and Tricor 48mg daily NORMOCYTIC ANEMIA - Ferrous sulfate 325mg PO daily - Multivitamin 1 tab PO daily MDD: - Pt reports stable mood; some anhedonia suspected. Previously, refusing meals , shower, PT - Sertraline 100 mg PO daily - Seroquel 100mg HS INSOMNIA -Zolpidem 5mg HS PRN GOUT -Allopurinol 300mg daily HYPOTHYROIDISM 08/2015- TSH low, free T4 grossly wnl (05/27/16) -Synthroid 50 mcg PO daily FUNGAL INFECTION -Nystatin powder and miconazole creme to skin folds MORBID OBESITY WITH BMI 60-69 -see above plan for mechanical ventilation RESOLVED CONDITIONS THIS HOSPITAL VISIT - Cellulitis of Chest Wall: completed course linezolid (05/06-05/13), per ID recs - Yeast UTI: completed course Diflucan. UCx 05/01: Dionne albicans. Repeat UCx 05/05: Proteus Mirabilis - HCAP: s/p multiple abx (10) Nutrition, metabolism, and development symptoms Status: Acute Plan: FEN: Fluids: PO (Limited to 1.5L/day PO) Electrolytes: 40KCl BID. Chronically hypokalemic, replete per protocol Nutrition: 2Kcal heart healthy diet. Transitioned to oral feeds (05/29). Needs help with feeding. Wt loss stagnated consider further calorie restriction. PPX: GI ppx: Protonix 20mg BID DVT ppx: Lovenox 150mg BID Pain: Oxycodone 7.5/325 q4h PRN Bowels: Senna 1 tab HS PRN Wt: Admission: 480 lbs. Wt 06/07 ~445 lbs. Continue monitor, encourage, modify/restrict diet, as appropriate (Cody Kelly MD R2) Problem Qualifiers (1) CHF (congestive heart failure): Qualified Code: I50.9 - Acute on chronic congestive heart failure, unspecified congestive heart failure type (2) Hypertension: Qualified Code: I10 - Essential hypertension (3) Anemia: Qualified Code: D64.9 - Anemia, unspecified type Cody Kelly MD R2 Jun 15, 2016 08:14 Lázaro Rogers MD Jun 15, 2016 13:03 congestive heart failure type (2) Hypertension: Qualified Code: I10 - Essential hypertension (3) Anemia: Qualified Code: D64.9 - Anemia, unspecified type Cody Kelly MD R2 Jun 15, 2016 08:14
[2016-06-15] MEDS: ENOXAPARIN SODIUM 150 MG/ML SYRINGE SQ SCH ×2 (08:16→20:30)
[2016-06-15] MEDS: CHLORHEXIDINE 0.12% (ORAL KIT) 15 ML CUP MT SCH ×2 (08:16→20:00)
[2016-06-15] MEDS: MORPHINE SULFATE 4 MG/ML INJ IV PUSH PRN ×4 (08:28→22:31)
[2016-06-15 09:43] LABS: AUTOMATED NEUTROPHIL # 8.4 TH/MM3 (1.8-7.7); BASOPHIL # 0.1 TH/MM3 (0-0.2); EOSINOPHIL # 0.4 TH/MM3 (0-0.4); EOSINOPHIL % 3.1 % (0.0-4.0); HEMATOCRIT 25.4 % (39.0-51.0); LYMPH % 15.4 % (9.0-44.0); LYMPHOCYTE # 1.8 TH/MM3 (1.0-4.8); MEAN CORPUSCULAR HGB CONC 32.1 % (32.0-36.0); MONO % 7.5 % (0.0-8.0); PLATELET COUNT 263 TH/MM3 (150-450); RED BLOOD COUNT 3.13 MIL/MM3 (4.50-5.90); RED CELL DISTRIBUTION WIDTH 24.3 % (11.6-17.2); WHITE BLOOD COUNT 11.5 TH/MM3 (4.0-11.0)
[2016-06-15 09:47] LABS: HEMO FLAGS AUTO DIFF
[2016-06-15 09:53] LABS: BICARBONATE 40.9 MEQ/L (21.0-32.0); MAGNESIUM 1.7 MG/DL (1.5-2.5); POTASSIUM 3.8 MEQ/L (3.5-5.1)
[2016-06-15 10:38] LABS: BANDS 5 % (0-6); BASOPHILS 1 % (0-2); EOSINOPHILS 2 % (0-4); METAMYELOCYTES 1 % (0-1); MYELOCYTES 3 % (0-0); NEUTROPHIL # MANUAL DIFF 9.3 TH/MM3 (1.8-7.7); PLATELET ESTIMATE SMEAR NORMAL (NORMAL); PLATELET MORPHOLOGY NORMAL (NORMAL); POLYS (SEG NEUTROPHILS) 72 % (16-70); SCAN/DIFF FINAL DIFF MANUAL; WBC DIFF SAMPLE 100
[2016-06-15] MEDS: ONDANSETRON ODT 4 MG TAB PO PRN ×2 (12:59→20:30)
[2016-06-15] MEDS: POTASSIUM CHLORIDE 20 MEQ CONTROLLED RELEASE TAB PO SCH ×2 (13:00→22:32)
[2016-06-15] MEDS: oxyCODONE/ACETAMINOPHEN 7.5 MG/325 MG TAB PO PRN (16:14)
[2016-06-15] MEDS: QUEtiapine FUMARATE 100 MG TAB PO SCH (20:30)
[2016-06-16] VITALS (21 sets, daily range): BP systolic 133–161; BP diastolic 64–80; PULSE 83–100; RESP 18–25; TEMP 98–98.7; O2SAT 88–100
[2016-06-16] MEDS: LEVOTHYROXINE SODIUM 50 MCG TAB PO SCH (03:41)
[2016-06-16 05:53] LABS: AUTOMATED NEUTROPHIL # 7.1 TH/MM3 (1.8-7.7); BASOPHIL # 0.1 TH/MM3 (0-0.2); BASOPHIL % 0.8 % (0.0-2.0); EOSINOPHIL # 0.3 TH/MM3 (0-0.4); EOSINOPHIL % 3.3 % (0.0-4.0); LYMPH % 17.8 % (9.0-44.0); LYMPHOCYTE # 1.8 TH/MM3 (1.0-4.8); MEAN CELL VOLUME 83.1 FL (80.0-100.0); MEAN CORPUSCULAR HGB CONC 30.1 % (32.0-36.0); MONO % 6.6 % (0.0-8.0); NEUT % 71.5 % (16.0-70.0); PLATELET COUNT 253 TH/MM3 (150-450); RED BLOOD COUNT 3.74 MIL/MM3 (4.50-5.90); RED CELL DISTRIBUTION WIDTH 24.3 % (11.6-17.2); WHITE BLOOD COUNT 9.9 TH/MM3 (4.0-11.0)
[2016-06-16 05:55] LABS: HEMO FLAGS AUTO DIFF
[2016-06-16 06:26] LABS: BICARBONATE 38.2 MEQ/L (21.0-32.0); POTASSIUM 3.3 MEQ/L (3.5-5.1)
[2016-06-16] MEDS: RESP: COLISTIN 150 MG VIAL NEB SCH ×3 (07:27→23:31)
[2016-06-16] MEDS: RESP: BUDESONIDE 0.5 MG/2 ML NEB NEB SCH ×2 (07:27→19:34)
[2016-06-16] MEDS: RESP: ALBUTEROL 2.5 MG/IPRATROPIUM 0.5 MG NEB (PRN) NEB (07:27)
[2016-06-16 08:30] LABS: BANDS 4 % (0-6); EOSINOPHILS 3 % (0-4); MYELOCYTES 4 % (0-0); NEUTROPHIL # MANUAL DIFF 7.6 TH/MM3 (1.8-7.7); PLATELET ESTIMATE SMEAR NORMAL (NORMAL); PLATELET MORPHOLOGY NORMAL (NORMAL); POLYS (SEG NEUTROPHILS) 69 % (16-70); SCAN/DIFF FINAL DIFF MANUAL; WBC DIFF SAMPLE 100
[2016-06-16] MEDS ORDERED: GLUCAGON 1 MG/ML VIAL OTHER PRN (08:30)
[2016-06-16] MEDS ORDERED: DEXTROSE 50% IN WATER 50 ML VIAL(D50) IV PUSH PRN (08:30)
[2016-06-16 08:32] LABS: OVALOCYTES 1+ (NORMAL); STOMATOCYTES 1+ (NORMAL)
--- NOTE | 2016-06-16 08:32 | HHI.CCPN ---
Subjective Remarks/Hospital Course 31 year old morbidly obese (BMI 68) male with chronic respiratory failure s/p tracheostomy 4 years ago, atrial fibrillation and pulmonary embolism on Xarelto , COPD, CHF and h/o HTN. He presented from [facility] with low oxygen saturation apparently his oxygen saturation was 82% on RA. He was placed back on 6L of oxygen via his trach mask and given a breathing treatment, initially improved however he started drifting back to low 80s again. Chest x-ray showed bibasilar infiltrates and pulmonary edema. Patient was admitted to the [facility]] service and was started on IV steroids IV vancomycin and Zosyn and Levaquin for healthcare associated pneumonia. After starting ACV, patient was more awake but there was a significant amount of air leak around his tracheostomy. 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 05/02 the patient became acutely hypoxemic with a large cuff leak, underwent emergency trach exchange at bedside by Dr. Macias. FiO2 65% PEEP 14 05/13 Patient is on ventilator via trach, on Fentanyl infusion however he is awake and alert. On PRVC with FIO2 40%. Afebrile. 05/14 No acute events overnight. Tmax 99.8. Patient is awake, alert on ventilator via trach still requiring increase O2. On PRVC with PEEP: 10 and FIO2 70%. 05/15 patient acutely desaturated after he was found. Saturation went down to 70% on 100% oxygen. Bag and mask ventilation carried out, with eventual improvement on oxygen saturation to 85%. Patient was placed on PC/AC mode of ventilation, with PEEP of 15 and instructed to pressure of 30. Eventually oxygen saturation improved to 95%. Lasix him today as the chest x-ray from today shows increasing bilateral infiltrate and pulmonary edema. Also sputum culture will be sent 05/16 Patient is on Fentanyl and Diprivan infusion but awake and alert. Afebrile. On PC/AC with PEEP:15, IP: 22, IT:1.3 and FIO2 50% 05/17 Patient is off Diprivan and remains on Fentanyl infusion for sedation. On PC/AC with PEEP: down 10 and FIO2 40%. Afebrile. 05/18 Patient remains on ventilator via trach on PC/AC with PEEP:12, FIO2 40%, IP:22, IT:1.0. On Fentanyl infusion 05/19 No acute events overnight. On Fentanyl infusion but awake and alert. Afebrile. 05/20 Tolerating C Pap 17/12 FIO2 40, sats 98%. RSBI in 20s, appears can be weaned further. Afebrile. Speech therapy evaluated and ok for regular diet. Starting with full liquid. 05/21 Will wean PSV to 15/10. Tolerated full liquids, will advance to regular diet per speech recs. Subjective: 05/22 On PSV 15/10 FIO2 40 with sats 92%. Smiling today. Glad to be eating regular food again. 05/23 No acute events overnight. Remains on CPAP with PS 15, PEEP:10 and FIO2 40 %. Afebrile. Off Fentanyl drip. Afebrile. Awake and alert. 05/24 Patient is on CPAP 06/06 with 40% FIO2. Afebrile. Awake and alert, on no sedation. 05/25 No acute events overnight. Patient was placed back on PC/AC overnight. Tolerated CPAP trials during day yesterday. Awake and alert. On no drips. Afebrile. 05/26 Afebrile. Tmax 98.6. Today the patient complained of nausea requiring Zofran. The patient has a lack of an appetite, with noted hypoglycemia early this a.m. blood glucose level 69. Patient tolerating CPAP well greater than 12 hours in the last 24 hours. 05/27 The patient tolerated CPAP for over 36 hours, O2 sat a knee 94% on FIO2 40 %. The patient had an increase in appetite. The patient continues on full liquid diet. 05/28 The patient declined physical therapy treatment, yesterday and also overnight declined to be moved by nursing staff. The patient refused dinner last evening, of note patient was reevaluated by speech therapy and can consume a heart healthy diet with thin liquids. The patient continues on physical therapy for strengthening exercises of all extremities specifically noted right upper extremity continues to be weak with gross fibrillations noted in hand and forearm. 05/29 Afebrile. No change in right upper extremity weakness. The patient was seen by neurology yesterday plan for MRI today if possible in hospital MRI, and EMG studies. No complaints overnight. Patient continues to refuse to have activities performed, movement in bed. The patient appears to be depressed, psychiatry consulted. 05/30: Patient alert awake on CPAP. Following commands. Psych agrees the patient is depressed. MRI brain no acute findings 05/31: Awake alert. on PS 15/8. EMG could not be completed due to patient becoming anxious. Otherwise no acute events reported overnight 06/01: Remains PS from 15/8. Right upper extremity weakness persists. EMG to be repeated on Friday. Will need MRI of the brachial plexus. Chest x-ray is unchanged 06/02: States that "not feeling well". Febrile to 101.5. White count increasing but still within the normal range. Pancultured. We'll request ID reevaluation. 06/03: Resting in bed on C Pap/pressure support via tracheostomy. One out of 2 sets of blood cultures sent on 06/02 positive for gram-positive cocci. 06/04: Resting in bed on mechanical ventilation via tracheostomy. Afebrile overnight. MRI brachial plexus (06/03) revealed a collection near the right subscapularis muscle, possibly an abscess. Discussed with ID, orthopedics Dr. Velazquez consulted. I discussed the case with Dr. Velazquez this morning who feels this is probably an abscess however would be difficult to access surgically and he plans to set up percutaneous drainage by interventional radiology. 06/05: Resting in bed on mechanical ventilation via tracheostomy. Remains afebrile. Reportedly IR cannot do percutaneous drainage of collection involving right subscapularis muscle. 06/06: Resting in bed on mechanical ventilation via tracheostomy. Can actually speak around the trach. Remains afebrile. Dr. Velazquez evaluated patient and is scheduling surgery for drainage of fluid collection involving the right subscapularis muscle. 06/07: Resting in bed on mechanical ventilation via tracheostomy. Awaiting surgery today. 06/08: Status post I&D of collection near right shoulder/subscapularis on 06/[address] Velazquez. This morning patient is awake and alert complained of some pain at the surgical site. Remains on mechanical ventilation on C Pap/pressure support. 06/09: Sleeping, arousable. On mechanical ventilation with C Pap/pressure support overnight. Labs pending 06/10 No acute events overnight. On CPAP with PS 12, PEEP: 8, FIO2 40%. Afebrile. 06/11 Patient remains on CPAP with PS 10, PEEP: 8 and FIO2 40%. Afebrile. 06/12: No acute events overnight. Remains on CPAP 10/5. No specific complaints 06/13: Tolerating C Pap 10 over 5. Awake and alert following commands. Hemoglobin dropped from 8.6-7.1, no obvious bleeding. Sodium 140-149. Will give 1 unit of PRBC with 1 mg IV Bumex 06/14 No acute events overnight. On CPAP with PS 10, PEEP:5 and FIO2 50%. Afebrile. 06/15 No acute events overnight. Remains on CPAP 10/5 with 40% FIO2. Afebrile. 06/16 Patient remains on ventilator via trach on CPAP with PS 10, PEEP:5 and FIO2 40%. Objective Vital Signs Date Time Temp Pulse Resp B/P Pulse Ox O2 Delivery O2 Flow Rate FiO2 06/16/16 07:23 100 40 06/16/16 06:00 100 06/16/16 04:00 98.1 24 133/68 Intake and Output 06/15/16 06/15/16 06/16/16 08:00 16:00 00:00 Intake Total 725 ml 1484 ml 725 ml Output Total 550 ml 3400 ml 1350 ml Balance 175 ml -1916 ml -625 ml Result Diagram: 06/16/16 0421 06/16/16 0421 Other Results Laboratory Tests Test 06/15/16 06/16/16 08:52 04:21 White Blood Count 11.5 TH/MM3 9.9 TH/MM3 Red Blood Count 3.13 MIL/MM3 3.74 MIL/MM3 Hemoglobin 8.1 GM/DL 9.3 GM/DL Hematocrit 25.4 % 31.0 % Mean Corpuscular Volume 81.0 FL 83.1 FL Mean Corpuscular Hemoglobin 26.0 PG 25.0 PG Mean Corpuscular Hemoglobin 32.1 % 30.1 % Concent Red Cell Distribution Width 24.3 % 24.3 % Platelet Count 263 TH/MM3 253 TH/MM3 Mean Platelet Volume 7.5 FL 7.4 FL Neutrophils (%) (Auto) 73.0 % 71.5 % Lymphocytes (%) (Auto) 15.4 % 17.8 % Monocytes (%) (Auto) 7.5 % 6.6 % Eosinophils (%) (Auto) 3.1 % 3.3 % Basophils (%) (Auto) 1.0 % 0.8 % Neutrophils # (Auto) 8.4 TH/MM3 7.1 TH/MM3 Lymphocytes # (Auto) 1.8 TH/MM3 1.8 TH/MM3 Monocytes # (Auto) 0.9 TH/MM3 0.7 TH/MM3 Eosinophils # (Auto) 0.4 TH/MM3 0.3 TH/MM3 Basophils # (Auto) 0.1 TH/MM3 0.1 TH/MM3 CBC Comment AUTO DIFF AUTO DIFF Differential Total Cells 100 Counted Neutrophils % (Manual) 72 % Band Neutrophils % 5 % Lymphocytes % 9 % Monocytes % 7 % Eosinophils % 2 % Basophils % 1 % Neutrophils # (Manual) 9.3 TH/MM3 Metamyelocytes 1 % Myelocytes 3 % Differential Comment FINAL DIFF MANUAL Platelet Estimate NORMAL Platelet Morphology Comment NORMAL Sodium Level 140 MEQ/L 140 MEQ/L Potassium Level 3.8 MEQ/L 3.3 MEQ/L Chloride Level 93 MEQ/L 93 MEQ/L Carbon Dioxide Level 40.9 MEQ/L 38.2 MEQ/L Anion Gap 6 MEQ/L 9 MEQ/L Blood Urea Nitrogen 3 MG/DL 3 MG/DL Creatinine 0.32 MG/DL 0.39 MG/DL Estimat Glomerular Filtration 323 ML/MIN 257 ML/MIN Rate Random Glucose 76 MG/DL 66 MG/DL Calcium Level 8.7 MG/DL 9.2 MG/DL Phosphorus Level 2.9 MG/DL Magnesium Level 1.7 MG/DL Imaging Last Impressions Chest X-Ray 06/14/16 0600 Signed Impressions: Service Date/Time: Tuesday, June 14, 2016 04:34 - CONCLUSION: 1. Consolidative opacity at the right lung base most consistent with infiltrate and or effusion. 2. Moderate cardiomegaly Joshua Evangelista MD Liver Ultrasound 06/03/16 0000 Signed Impressions: Service Date/Time: Friday, June 03, 2016 08:10 - CONCLUSION: 1. There is some sludge in the gallbladder. This can be seen with chronic gallbladder disease. 2. Fatty infiltration of the liver which appears to be enlarged. 3. No mechanical biliary tract obstruction. 4. Splenomegaly. Lázaro Frankel MD Brachial Plexus MRI 06/03/16 0000 Signed Impressions: Service Date/Time: Friday, June 03, 2016 12:42 - CONCLUSION: There is a complex multiloculated soft tissue and cystic mass measuring approximately 5.5 x 6.0 x 7.8 cm involving the subscapularis muscle along the anterior right scapula. The differential considerations include neoplastic disease, infection and hematoma. Recommend a CT scan of the right shoulder to pre-plan for CT-guided aspiration/biopsy of this abnormality. Lázaro Frankel MD Cervical Spine MRI 05/29/16 0000 Signed Impressions: Service Date/Time: Sunday, May 29, 2016 13:51 - CONCLUSION: Limited study but appears normal. Vishnu Woodward MD Brain MRI 05/29/16 0000 Signed Impressions: Service Date/Time: Sunday, May 29, 2016 13:51 - CONCLUSION: 1. Focal chronic ischemic change in the high right frontal parietal convexity stable from previous CT scan. 2. No acute intracranial abnormality. 3. Minimal nonspecific white matter changes. Vishnu Woodward MD Upper Extremity Ultrasound 05/28/16 0000 Signed Impressions: Service Date/Time: Saturday, May 28, 2016 10:16 - CONCLUSION: 1. Negative for deep venous thrombosis. Venous line noted in cephalic, subclavian and internal jugular vein. Horacio Gupta MD Abdomen X-Ray 04/29/16 0000 Signed Impressions: Service Date/Time: Friday, April 29, 2016 07:12 - CONCLUSION: Suspect Dobbhoff tube in the distal stomach. Garcia Lujan MD Objective Remarks GENERAL: Patient is 31yo on ventilator via trach, awakens and follows commands. Super Morbidly obese. SKIN: Warm and dry. HEAD: Normocephalic. EYES: No scleral icterus. No injection or drainage. NECK: Supple, trachea midline. Shiley 6.0 Proximal XLT, (new trach placed ) CARDIOVASCULAR: No murmurs, gallops, or rubs by limited exam. RESPIRATORY: On mechanical ventilation, Breath sounds equal bilaterally. Distant secondary to habitus. GASTROINTESTINAL: Abdomen soft, obese, non-tender, nondistended. Multiple noted areas of ecchymotic bruising secondary to subcutaneous injections MUSCULOSKELETAL: No cyanosis, or edema. Pedal edema. Wound on lateral aspect of right lower leg above lateral malleolus , dressing C/D/I. 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 Dressing around the right axilla/shoulder Neuro: Arousable. Moves all extremities with focal deficit right upper extremity as above. 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 -status post exchange with new Shiley 6.0 Proximal XLT 05/02/16 Chronic Respiratory Failure s/p Tracheostomy 4 years ago (Shiley 6.0 Proximal XLT) Probable right brachial plexus injury COPD/obesity hypoventilation syndrome Morbid Obesity BMI 67 History of pulmonary embolism 4 years ago Chronic atrial fibrillation Anxiety CHF (Echo 2013 EF 40-45%; ECHO 08/2015 showing a grossly normal systolic function) Hypertension Hypothyroidism PLAN NEURO: CO2 narcosis - resolved Critical care polyneuropathy Right upper extremity weakness 05/21-possibly secondary to nerve compression, C6 , C7 (brachial plexus) Pain Anxiety Depression -Collection near right subscapularis muscle(On MRI 06/03) - abscess status post I &D on 06/07 -EMG/ NCV could not be completed on 05/[address] Castillo -Clinically has right brachial plexus involvement. MRI of brachial plexus on 06/03 revealed collection involving right subscapularis muscle- s/p I & D on 06/[address] Velazquez. -Continued PT daily, with strengthening exercise (encouraged patient to participate) patient counseled on the importance. -Neurology Dr. Cheek-MRI brain C spine no acute findings. -Venous Doppler RUE 05/28-negative for DVT - On Seroquel. Continue Zoloft 50mg daily -On morphine 4 mg IV every 3 hours as needed for breakthrough pain. 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 Attempt TP/ TC as beatriz - Pulm toilet, trach care - s/p Bronchoscopy 05/11 -follow up on BAL results negative - DuoNeb every 6 hours scheduled, q 2 prn. - Pulmicort BID (home med), Continue Singulair 10 mg po daily CV: CHF exacerbation Pulmonary edema Paroxysmal atrial fibrillation (chronic) Hyperlipidemia -Monitor HR and BP keep MAP>65mmHg -Cardizem 90mg QID. Bumex to 1mg daily PO. -Continue Lipitor 10 g by mouth daily. Continue TriCor 40 mg by mouth daily -Therapeutic Lovenox 150 mg twice a day GI: Super morbid obesity with BMI of 63 -Regular diet ,thin liquids per speech recs. -Liver US 06/03: Fatty liver, sludge in gall bladder, splenomegaly, no mechanical obstruction of bile duct noted. -On Protonix 20mg BID -Multivitamin to medication regimen FEN/RENAL: - Monitor renal function , I/O. - Electrolytes replacement per protocol. - Bumex 1mg PO daily, KCL 40meq Q12 ID: Healthcare associated pneumonia Sepsis New fever MDRO Cellulitis right arm-resolved Leukocytosis-resolved Enterococcal faecalis bacteremia, Pseudomonas bacteremia (06/02, 06/03) -Rocephin (05/12- 05/25) -Blood culture: aerobic and anaerobic bottles - enterococcus faecalis, pseudomonas aeruginosa 06/02, 06/03 -Urine culture 06/02 pseudomonas aeruginosa Wound culture 06/02 pseudomonas aeruginosa Sputum culture 06/02 Pseudomonas -Urine cx: Proteus Mirabilis 05/05 -Sputum cx: Providencia 05/05- resolved -Wound cx: 05/13 Proteus, Pseudomonas, Group D Enterococcus -Wound culture Pseudomonas MDR 04/27 -Sputum culture-Pseudomonas MDR- 04/27 -Bronchoscopy and re-culture 05/10 follow up on BAL results-neg to date -Follow up on sputum cx from 05/15- NGTD -Continue abx per ID ( IV vancomycin, colistin nebs, Zerbaxa for MDR pseudomonas in blood cultures) MRI brachial plexus (06/03) revealed a collection involving right subscapularis muscle near right anterior axilla , possibly an abscess Dr. Velazquez performed drainage of collection surgically on 06/07. HEME: History of PE on chronic anticoagulation with Xarelto Anemia, iron deficiency and anemia of critical illness. -Monitor CBC, transfused 1U PRBC 06/13 -Xarelto for PE 4 yrs ago. -Xarelto.held, On therapeutic Lovenox 150 mg twice a day -Ferrous sulfate 300 mg/q day ENDO: Hypothyroidism -On SSI (Low scale) -Continue levothyroxine 50 mcg po daily -Free T4 1.52 PROPH: -Bilateral lower extremity SCDs.Lovenox 150 mg twice a day GI prophylaxis- Protonix 20mg BID LINES: - PICC line RUE- No DVT on US 05/02 - removed on 06/03. Out of bed with assistance. PT out of bed with vent. OT. Level 3 Flory Martino MD Jun 16, 2016 08:32
[2016-06-16] MEDS: INSULIN NovoLIN REGULAR SUPPLEMENTAL SCALE SQ SCH ×3 (09:00→21:00)
[2016-06-16] MEDS: ONDANSETRON ODT 4 MG TAB PO PRN (09:53)
[2016-06-16] MEDS: MORPHINE SULFATE 4 MG/ML INJ IV PUSH PRN ×3 (09:55→18:52)
[2016-06-16] MEDS: SODIUM CHLORIDE 0.9% FLUSH 5 ML FLUSH IVF SCH ×2 (09:56→21:07)
[2016-06-16] MEDS: ALLOPURINOL 300 MG TAB PO SCH (09:56)
[2016-06-16] MEDS: FENOFIBRATE 48 MG TAB PO SCH (09:56)
[2016-06-16] MEDS: DILTIAZEM HCL 90 MG TAB PO SCH ×4 (09:56→21:04)
[2016-06-16] MEDS: MULTIVITAMIN TAB PO SCH (09:56)
[2016-06-16] MEDS: PANTOPRAZOLE SOD 20 MG DELAYED RELEASE TAB PO SCH ×2 (09:57→21:04)
[2016-06-16] MEDS: BUMETANIDE 1 MG TAB PO SCH (09:57)
[2016-06-16] MEDS: MONTELUKAST SODIUM 10 MG TAB PO SCH (09:57)
[2016-06-16] MEDS: ATORVASTATIN 10 MG TAB PO SCH (09:57)
[2016-06-16] MEDS: FERROUS SULFATE 325 MG (65 MG ELEMENTAL IRON) TAB PO SCH (09:57)
[2016-06-16] MEDS: SERTRALINE HCL 100 MG TAB PO SCH (09:57)
[2016-06-16] MEDS: MICONAZOLE NITRATE 2% CREAM 15 GM TOP SCH ×2 (09:58→21:05)
[2016-06-16] MEDS: NYSTATIN 100,000 U/GM PWD 15 GM BTL TOPICAL SCH ×2 (09:58→21:06)
[2016-06-16] MEDS: COLLAGENASE OINT 30 GM TUBE TOP SCH (09:58)
[2016-06-16] MEDS: CHLORHEXIDINE 0.12% (ORAL KIT) 15 ML CUP MT SCH ×2 (09:59→21:07)
[2016-06-16] MEDS: ENOXAPARIN SODIUM 150 MG/ML SYRINGE SQ SCH ×2 (10:04→22:03)
[2016-06-16] MEDS: POTASSIUM CHLORIDE 20 MEQ CONTROLLED RELEASE TAB PO SCH ×2 (10:04→22:03)
[2016-06-16] MEDS: CEFTOLOZANE-TAZOBACTAM INJ 1,500 MG in SODIUM CHLORIDE 0.9% INJ 100 ML IV SCH ×2 (11:33→19:47)
--- NOTE | 2016-06-16 13:04 | HHI.FPPN ---
Subjective Remarks No acute events overnight. Afebrile. Breathing well on CPAP, FiO2 40. Acute complaint remains nausea refractory to Zofran ODT. Patient refused Reglan , "I don't want anymore pills". Denies emesis Otherwise, no change. Right upper extremity remains weak. Denies fevers chills , SOB, chest pain, abdominal/calf pain. Voiding via catheter. No further episodes diarrhea. Bandages right upper extremity, right lower extremity, c/d/i Objective Vitals Vital Signs Date Time Temp Pulse Resp B/P Pulse Ox O2 Delivery O2 Flow Rate FiO2 06/16/16 12:00 89 06/16/16 12:00 98.0 91 18 161/80 97 06/16/16 12:00 40 06/16/16 11:05 100 40 06/16/16 10:00 87 06/16/16 08:00 40 06/16/16 08:00 98.7 86 19 137/65 100 06/16/16 08:00 86 06/16/16 07:23 100 40 06/16/16 06:00 100 06/16/16 04:00 100 06/16/16 04:00 98.1 92 24 133/68 95 06/16/16 04:00 40 06/16/16 03:49 96 40 06/16/16 02:00 100 06/16/16 02:00 100 06/16/16 00:53 94 40 06/16/16 00:00 98.7 83 25 143/64 94 06/16/16 00:00 40 06/16/16 00:00 100 06/15/16 22:00 100 06/15/16 20:00 98.3 85 24 148/68 95 06/15/16 20:00 100 06/15/16 20:00 40 06/15/16 19:45 100 40 06/15/16 18:00 100 06/15/16 16:00 90 06/15/16 16:00 98.1 90 24 146/69 95 06/15/16 16:00 40 06/15/16 15:13 100 40 06/15/16 14:00 89 I/O 06/15/16 06/15/16 06/15/16 06/16/16 06/16/16 06/16/16 07:00 15:00 23:00 07:00 15:00 23:00 Intake Total 725 ml 1484 ml 725 ml 725 ml Output Total 550 ml 3400 ml 1350 ml 875 ml Balance 175 ml -1916 ml -625 ml -150 ml Intake Oral 250 ml 760 ml 250 ml 250 ml IV Total 475 ml 724 ml 475 ml 475 ml Output Urine Total 550 ml 3400 ml 1350 ml 875 ml # Bowel Movements 0 1 Result Diagram: 06/16/1642006/16/16420 Imaging see pertinent positives/negatives in assessment/plan Objective Remarks GEN: Morbidly obese male in NAD. DERM: Warm and dry. No erythema or skin breakdown appreciated. Numerous skin folds 2/2 habitus. Bandage R lateral malleolus c/d/i. Bandage RUE c/d/i. HEENT: Tracheotomy site c/d/i. Poor dentition. CV: Distant heart sounds. RRR. Normal peripheral perfusion. RESP: Transmitted upper respiratory sounds. No wheezing GI: Abdomen soft, obese, non-tender. +BS MSK: External rotation of RLE. LE edema 2+ bilaterally. No calf tenderness NEURO: CN grossly normal. Peripheral motor and sensory function not tested Procedures 04/24- Started ventilation 05/02- Emergency Trach Exchange 06/03- PICC line removed 06/07- Debridement of RUE abscess (Dr. Velazquez), RUE drain placed 06/10- RUE drain removal Date of Insertion: Apr 24, 2016 A/P Assessment and Plan 31y with super morbid obesity, [id number] respiratory failure, tracheostomy seal leak, and HCAP Discharge Planning Days to weeks, pending weaning from mechanical ventilation. Ideally, return to rehab on baseline NC oxygen. Consider [facility] vent facility depending on status. Problem List: (1) Nausea Status: Chronic Plan: Chronic. Ddx: GERD vs psychosomatic vs impaired gastric emptying vs medication side effect. - Zofran 4mg IV q6h PRN nausea - Reglan 10mg ACHS PRN nausea - Protonix 20mg BID REYES - Mg-Al liquid q6h PRN dyspepsia (2) Bacteremia Status: Acute Plan: - Vancomycin IV daily goal trough 15-20, (06/03 -- ) Stop 12/20 per ID - Zerbaxa IV q8h (06/05-- ) Stop 12/20 per ID - Colistin 75mg q8h NEB continue - Acetaminophen 325mg PRN fever - Trend CBC, CMP daily Impression: Pseudomonas aeruginosa and Enterococcus faecalis bacteremia secondary to PICC infection vs HCAP. Repeat BCx 06/06 negative (compared to positive 06/03 culture). However, UCx 06/06 grew +Group D Enterococcus. Pt asymptomatic for urinary symptoms. Has willard placed. Likely colonized. Serial CXR show cardiomegaly w b/l pulm edema and R pleural effusion. Abx History Zosyn 4.5gm IV q6h (04/24 - 04/29) Levaquin 750mg IV q24h (04/24-04/30) Zerbaxa 1.5 g IV q8h (04/29 - 05/07) Vancomycin IV (04/24 - 05/06) Ceftriaxone IV (05/07 - 05/25) Linezolid 600 mg PO BID (05/06 - 05/13) Zosyn 3.375 q6h (06/04- 06/05) Vancomycin (06/03-- ) Zerbaxa (ceftozolane/tazobactam) (06/05 --) (3) Hematoma Status: Acute Plan: - Daily dressing changes with xeroform and primapore - Daily PT/OT, as tolerated. PT targeting RUE weakness. - Continue Abx (see bactermia) Impression: Hematoma contributing to RUE weakness x4 weeks. S/p I&D by Dr. Velazquez (06/07/16). Small hematoma found during procedure inconsistent with 6cm x 6cm x 8cm abscess suggested by MRI brachial plexus. Ddx for RUE weakness: hematoma vs C6/C7 neuropathy. L hemispheric pathology, and seizure ruled out ( see below). Unable to tolerate EMG. Imaging: - US negative for DVT (05/28) - MRI brain (04/28) no acute intracranial process - MRI C-spine (05/29): grossly wnl - EEG (05/29): diffuse mild encephalopathy vs normal Stage 2 sleep - MRI brachial plexus (06/03): "Complex multiloculated soft tissue and cystic mass 5.5 x 6 x 7.8 cm involving subscapularis muscle along anterior R scapula - Pathology report (06/07): fragments of blood clot admixed with few minute fragments of adipose and skeletal muscle tissue (4) On mechanically assisted ventilation Status: Acute Plan: - CPAP (PS 10, PEEP 5, FiO2 40%) via trach. Advance to TC/TP, as tolerated. Weaning per CC - Pulmicort BID REYES - Duonebs q2h PRN - Singulair 10mg daily Impression: Weaning from vent appears to have hit plateau- senior living plans for dispo? Acute on chronic hypoxemic respiratory failure secondary to HCAP ( resolved) and tracheostomy leak (s/p exchange 05/02). Mechanical ventilation initiated 04/24. Solumedrol (05/10-06/03) (5) Paroxysmal a-fib Status: Chronic Plan: -Sinus rhyth, regular rate at this time - Lovenox 150mg IV BID, per critical care (6) Hypertension Status: Chronic Plan: - Cardiazem 90mg QID - Labetalol 10mg IV PRN SBP 160+ (7) CHF (congestive heart failure) Status: Chronic Plan: Suspected HF with poor EF, though unable to confirm via ECHO (04/25) due to poor imaging. BNP elevated on admission, downtrended. - Bumex 1mg PO daily + 40 KCl BID - 1.5L fluid restriction, monitor I/Os, monitor renal function, peripheral edema (8) Stable medical conditions Status: Chronic Plan: NORMOCYTIC ANEMIA - Ferrous sulfate 325mg PO daily - Multivitamin 1 tab PO daily HYPERLIPIDEMIA -Atorvastatin 10mg daily - Tricor 48mg daily MDD: Pt reports stable mood; some anhedonia suspected. Previously, refusing meals, shower, PT - Sertraline 100 mg PO daily - Seroquel 100mg HS INSOMNIA -Zolpidem 5mg HS PRN GOUT -Allopurinol 300mg daily HYPOTHYROIDISM 08/2015- TSH low, free T4 grossly wnl (05/27/16) -Synthroid 50 mcg PO daily FUNGAL INFECTION -Nystatin powder and miconazole creme to skin folds MORBID OBESITY WITH BMI 60-69 -see above plan for mechanical ventilation RESOLVED CONDITIONS THIS HOSPITAL VISIT - Cellulitis of Chest Wall: completed course linezolid (05/06-05/13), per ID recs - Yeast UTI: completed course Diflucan. UCx 05/01: Dionne albicans. Repeat UCx 05/05: Proteus Mirabilis - HCAP: s/p multiple abx (9) Nutrition, metabolism, and development symptoms Status: Acute Plan: FEN: Fluids: PO (Limited 1.5L/day) Electrolytes: +40KCl BID. Chronically hypokalemic, replete per protocol Nutrition: 2Kcal heart healthy diet. Transitioned to oral feeds (05/29). Wt: Admission: 480 lbs PPX GI ppx: Protonix 20mg BID DVT ppx: Lovenox 150mg BID Pain: Oxycodone 7.5/325 q4h PRN Bowel: Senna 1 tab HS PRN DW: Dr Rogers SDW: Dr. Anderson Problem Qualifiers (1) Hypertension: Qualified Code: I10 - Essential hypertension (2) CHF (congestive heart failure): Qualified Code: I50.9 - Acute on chronic congestive heart failure, unspecified congestive heart failure type Holley Baires MD R1 Jun 16, 2016 13:04 Qualified Code: I10 - Essential hypertension (3) Anemia: Qualified Code: D64.9 - Anemia, unspecified type Holley Baires MD R1 Jun 16, 2016 13:04
[2016-06-16] MEDS ORDERED: PROMETHAZINE HCL 25 MG SUPP RECTAL PRN (13:15)
[2016-06-16] MEDS ORDERED: METOCLOPRAMIDE HCL 10 MG TAB PO PRN (15:00)
[2016-06-16] MEDS ORDERED: ALUMINUM/MAGNESIUM/SIMETH 30 ML CUP PO PRN (15:00)
--- NOTE | 2016-06-16 17:36 | HHI.FPPN ---
Addendum to progress note ADDENDUM Reason for addendum: Additonal documentation Additional information Medicine Service Handoff Note 31y male with super morbid obesity hospitalized 04/24/16 for treatment of acute on chronic respiratory failure after tracheostomy leak. After emergency tracheostomy replacement 05/02, patient had respiratory decompensation, requiring placement on a ventilator, as well as treatment for HCAP and yeast UTI. Patient has been slowly weaned to BiPAP via critical care but progress off vent has plateaued. Patient also presents with bacteremia, MDRO UTI, cellulitis, weakness RUE secondary to hematoma, chronic nausea, Afib, CHF and generalized weakness. Proteus and enterococcus Bacteremia, secondary to PICC infection, has been successfully treated with vancomycin and Zerbaxa, to end 06/18/16 per ID. [place] catheter likely colonized with MDRO at baseline. Cellulitis right ankle managed by wound care, stable. Hematoma R shoulder nonoperative, PT working on improving R upper extremity strength. Chronic nausea intermittent, likely psychosomatic vs GERD. Therapeutic Lovenox for Afib. Bumex for CHF. OT for generalized weakness. Patient currently stable, in ICU, with goal to transfer out hospital once has been weaned from vent. Less certain when patient will be stable enough to transfer out of ICU to floor. Once off vent, will likely return to SNF with trach still in place and will need good follow-up and discussion of bariatric surgery. Holley Baires MD R1 Jun 16, 2016 17:36
[2016-06-16] MEDS ORDERED: PHARMACY ORDERED LAB XX ONE (17:45)
[2016-06-16] MEDS: VANCOMYCIN INJ 2,250 MG in SODIUM CHLORID 0.9% 500 ML INJ 500 ML IV SCH (17:49)
--- NOTE | 2016-06-16 17:53 | HHI.IDPN ---
Subjective Subjective Remarks ID xcover for Notes reviewed Temps ok Clinically doing well Doing well on CPAP Not SOB BP good No new (+) BC Milan changed 06/06 Has peripheral IV in place Operative note reviewed - looks more of hematoma, no purulence see, no C/S sent Pharmacist notified me of Zerbaxa shortage in hospital. Asked to switch to Avycaz in the interim till we can get Avycaz. Antibiotics Colistin nebs Zerbaxa IV Vanco IV Lines PIVs Past Medical History Chronic Respiratory Failure s/p Tracheostomy 4 years ago Morbid Obesity w/ BMI 67.6 Atrial fibrillation Pulmonary embolism 4 years ago Anxiety CHF (Echo 06/07/2014 w/ EF 40-45%; ECHO 08/2015 showing a grossly normal systolic function) HTN Hypothyroidism Past Surgical History Tracheostomy Tonsillectomy Allergies: Coded Allergies: *MDRO Multi-Drug Resistant Organism (Verified Adverse Reaction, Unknown, 05/08/16) XDR Pseudomonas aeruginosa (sputum) - 09/18/15; (sputum & wound) - 04/27/16 Objective . Vital Signs Date Time Temp Pulse Resp B/P Pulse Ox O2 Delivery O2 Flow Rate FiO2 06/16/16 16:00 40 06/16/16 15:55 92 40 06/16/16 15:40 88 T-piece 10.00 70 06/16/16 14:35 17 06/16/16 14:00 90 06/16/16 12:00 89 06/16/16 12:00 98.0 91 18 161/80 97 06/16/16 12:00 40 06/16/16 11:05 100 40 06/16/16 10:00 87 06/16/16 08:00 40 06/16/16 08:00 98.7 86 19 137/65 100 06/16/16 08:00 86 06/16/16 07:23 100 40 06/16/16 06:00 100 06/16/16 04:00 100 06/16/16 04:00 98.1 92 24 133/68 95 06/16/16 04:00 40 06/16/16 03:49 96 40 06/16/16 02:00 100 06/16/16 02:00 100 06/16/16 00:53 94 40 06/16/16 00:00 98.7 83 25 143/64 94 06/16/16 00:00 40 12/18/16 00:00 100 06/15/16 22:00 100 06/15/16 20:00 98.3 85 24 148/68 95 06/15/16 20:00 100 06/15/16 20:00 40 06/15/16 19:45 100 40 06/15/16 18:00 100 06/15/16 06/15/16 06/16/16 15:00 23:00 07:00 Intake Total 1484 ml 725 ml 725 ml Output Total 3400 ml 1350 ml 875 ml Balance -1916 ml -625 ml -150 ml Intake Oral 760 ml 250 ml 250 ml IV Total 724 ml 475 ml 475 ml Output Urine Total 3400 ml 1350 ml 875 ml # Bowel Movements 0 1 . Laboratory Tests Test 06/15/16 06/16/16 08:52 04:21 White Blood Count 11.5 TH/MM3 9.9 TH/MM3 Red Blood Count 3.13 MIL/MM3 3.74 MIL/MM3 Hemoglobin 8.1 GM/DL 9.3 GM/DL Hematocrit 25.4 % 31.0 % Mean Corpuscular Volume 81.0 FL 83.1 FL Mean Corpuscular Hemoglobin 26.0 PG 25.0 PG Mean Corpuscular Hemoglobin 32.1 % 30.1 % Concent Red Cell Distribution Width 24.3 % 24.3 % Platelet Count 263 TH/MM3 253 TH/MM3 Mean Platelet Volume 7.5 FL 7.4 FL Neutrophils (%) (Auto) 73.0 % 71.5 % Lymphocytes (%) (Auto) 15.4 % 17.8 % Monocytes (%) (Auto) 7.5 % 6.6 % Eosinophils (%) (Auto) 3.1 % 3.3 % Basophils (%) (Auto) 1.0 % 0.8 % Neutrophils # (Auto) 8.4 TH/MM3 7.1 TH/MM3 Lymphocytes # (Auto) 1.8 TH/MM3 1.8 TH/MM3 Monocytes # (Auto) 0.9 TH/MM3 0.7 TH/MM3 Eosinophils # (Auto) 0.4 TH/MM3 0.3 TH/MM3 Basophils # (Auto) 0.1 TH/MM3 0.1 TH/MM3 CBC Comment AUTO DIFF AUTO DIFF Differential Total Cells 100 100 Counted Neutrophils % (Manual) 72 % 69 % Band Neutrophils % 5 % 4 % Lymphocytes % 9 % 15 % Monocytes % 7 % 5 % Eosinophils % 2 % 3 % Basophils % 1 % Neutrophils # (Manual) 9.3 TH/MM3 7.6 TH/MM3 Metamyelocytes 1 % Myelocytes 3 % 4 % Differential Comment FINAL DIFF FINAL DIFF MANUAL MANUAL Platelet Estimate NORMAL NORMAL Platelet Morphology Comment NORMAL NORMAL Basophilic Stippling FAINT Ovalocytes 1+ Stomatocytes 1+ Laboratory Tests Test 06/15/16 06/16/16 08:52 04:21 Sodium Level 140 MEQ/L 140 MEQ/L Potassium Level 3.8 MEQ/L 3.3 MEQ/L Chloride Level 93 MEQ/L 93 MEQ/L Carbon Dioxide Level 40.9 MEQ/L 38.2 MEQ/L Anion Gap 6 MEQ/L 9 MEQ/L Blood Urea Nitrogen 3 MG/DL 3 MG/DL Creatinine 0.32 MG/DL 0.39 MG/DL Estimat Glomerular Filtration 323 ML/MIN 257 ML/MIN Rate Random Glucose 76 MG/DL 66 MG/DL Calcium Level 8.7 MG/DL 9.2 MG/DL Phosphorus Level 2.9 MG/DL Magnesium Level 1.7 MG/DL Imaging Chest X-Ray 06/03/16 0600 Signed Impressions: Service Date/Time: Friday, June 03, 2016 03:22 - CONCLUSION: 1. Cardiomegaly with bilateral pulmonary edema. 2. Moderate right pleural effusion. Vishnu Woodward MD Liver Ultrasound 06/03/16 0000 Signed Impressions: Service Date/Time: Friday, June 03, 2016 08:10 - CONCLUSION: 1. There is some sludge in the gallbladder. This can be seen with chronic gallbladder disease. 2. Fatty infiltration of the liver which appears to be enlarged. 3. No mechanical biliary tract obstruction. 4. Splenomegaly. Lázaro Frankel MD Brachial Plexus MRI 06/03/16 0000 Signed Impressions: Service Date/Time: Friday, June 03, 2016 12:42 - CONCLUSION: There is a complex multiloculated soft tissue and cystic mass measuring approximately 5.5 x 6.0 x 7.8 cm involving the subscapularis muscle along the anterior right scapula. The differential considerations include neoplastic disease, infection and hematoma. Recommend a CT scan of the right shoulder to pre-plan for CT-guided aspiration/biopsy of this abnormality. Lázaro Frankel MD Cervical Spine MRI 05/29/16 0000 Signed Impressions: Service Date/Time: Sunday, May 29, 2016 13:51 - CONCLUSION: Limited study but appears normal. Vishnu Woodward MD Brain MRI 05/29/16 0000 Signed Impressions: Service Date/Time: Sunday, May 29, 2016 13:51 - CONCLUSION: 1. Focal chronic ischemic change in the high right frontal parietal convexity stable from previous CT scan. 2. No acute intracranial abnormality. 3. Minimal nonspecific white matter changes. Vishnu Woodward MD Upper Extremity Ultrasound 05/28/16 Signed Impressions: Service Date/Time: Saturday, May 28, 2016 10:16 - CONCLUSION: 1. Negative for deep venous thrombosis. Venous line noted in cephalic, subclavian and internal jugular vein. Horacio Gupta MD Abdomen X-Ray 04/29/16 Signed Impressions: Service Date/Time: Friday, April 29, 2016 07:12 - CONCLUSION: Suspect Dobbhoff tube in the distal stomach. Garcia Lujan MD Chest X-Ray 05/20/16 0000 Signed Impressions: Service Date/Time: Friday, May 20, 2016 03:21 - CONCLUSION: Persistent mid and lower lung areas of consolidation or atelectasis being worse in the right. There has been mild improvement. Garcia Lujan MD Chest X-Ray 05/16/16 06 Signed Impressions: Service Date/Time: April 03:21 - CONCLUSION: 1. Slight improvement in bilateral airspace disease over the last day. Horacio Gupta MD Chest X-Ray 05/15/16 06 Signed Impressions: Service Date/Time: Sunday, May 15, 2016 04:31 - CONCLUSION: 1. Slight increase in airspace disease since May 13. Differential diagnosis includes pulmonary edema. Support apparatus unchanged. Horacio Gupta MD Chest X-Ray 05/13/16 06 Signed Impressions: Service Date/Time: Friday, May 13, 2016 03:26 - CONCLUSION: 1. Stable exam compared with May 12 with bilateral mostly basilar airspace disease. Horacio Gupta MD Chest X-Ray 05/10/16 06 Signed Impressions: Service Date/Time: Tuesday, May 10, 2016 02:45 - CONCLUSION: Worsening right lower lobe infiltrate. Jeremiah Walton Jr., MD Chest X-Ray 05/09/16 0600 Signed Impressions: Service Date/Time: April 02:52 - CONCLUSION: No significant change has occurred. Bill Zavala MD Chest X-Ray 05/08/16 0600 Signed Impressions: Service Date/Time: Sunday, May 08, 2016 04:01 - CONCLUSION: No significant change has occurred. Bill Zavala MD Chest X-Ray 05/05/16 06 Signed Impressions: Service Date/Time: Thursday, May 05, 2016 01:56 - CONCLUSION: Improved aeration bilaterally particularly in the left upper lobe. Tube and catheter are stable. Amador Brock MD Chest X-Ray 05/03/16 0000 Signed Impressions: Service Date/Time: Tuesday, May 03, 2016 06:40 - CONCLUSION: Increasing bilateral diffuse pulmonary infiltrates compared to the prior study. Lázaro Frankel MD Upper Extremity Ultrasound 05/02/16 0000 Signed Impressions: Service Date/Time: April 20:51 - CONCLUSION: No DVT. Garcia Lujan MD Abdomen X-Ray 04/29/16 0000 Signed Impressions: Service Date/Time: Friday, April 29, 2016 07:12 - CONCLUSION: Suspect Dobbhoff tube in the distal stomach. Garcia Lujan MD Physical Exam GENERAL: Awake and alert, on CPAP, NAD SKIN: Warm and moist. No generalized rash. HEENT: [place] conjunctivae. Full EOM. No scleral icterus. Moist mucosa. NECK: Trach, site ok. Supple, no meningeal signs. CARDIOVASCULAR: Regular rate and rhythm. Distant heart sounds. RESPIRATORY: Decreased BS bilaterally. GASTROINTESTINAL: Abdomen soft, morbidly obese, not tender, not distended. MUSCULOSKELETAL: Extremities without clubbing, cyanosis. Has mild pitting edema. Incision is dry NEUROLOGICAL: Awake and following, responding : [place] in place, urine looks clear Assessment & Plan Remarks IMPRESSION E.faecalis and MDR Pseudomonas bacteremia: from PICC line site with fevers: Central line associated blood stream infection(CLABSI). - PICC removed - repeat BC negative Scapular areas fluid collection, looks more of hematoma than abscess, no C/S sent MDR PSAE PNA, S/P Rx PSAE in urine: likely colonization or translocation of bacteria from PSAE bacteremia. - now with Enterococcus in UC Morbid obesity Sleep apnea Hx PE Anorexia RECOMMENDATION Continue Vanco IV (target trough 15-20) Continue Zerbaxa IV (ASP: has known MDR PSAE and now has bacteremia.) Continue Colistin nebs. - Will only suppress organism with Colistin given prior MDR and clinically stable at this point. Follow cultures If no other (+) BC, plan 14 days of Abx - anticipated end date Jun 18 Monitor progress Weaning per CCM as tolerated d/w RN and the antibiotic shortage issue. back on Jun. Will follow prn please call back if any change in clinical condition. Margo Land MD Jun 16, 2016 17:53
--- NOTE | 2016-06-16 18:33 | HHI.FPPN ---
Addendum to progress note ADDENDUM Reason for addendum: Additonal documentation Additional information Medicine transfer service note 72-year-old male with dementia presents from nursing facility with altered mental status and anemia. Presented originally with low GCS scoring, with contracture of upper and lower extremities, minimally responsive, incoherent. AMS significantly improved with treatment of Proteus UTI with ceftriaxone (06/13 -). Will now follow commands and answer questions in a semi-coherent, but tangential fashion. Do not know patient's baseline, but suspect may have returned to it. Cannot articulate why he is in the hospital. Discharge to SNF was anticipated until presented with anemia requiring transfusion. Medical decision maker Gracy has spoken to palliative about goals of care and would like aggressive treatment by GI to workup this anemia. Palliative following. Following Patient is to undergo colonoscopy and endoscopy tomorrow to workup source of bleeding. However, patient is on honey thickened liquids and will not tolerate GoLYTELY preparation. Using other bowel prep agents this evening to cleanse. If unable to do procedure, will require further discussion with Gracy about steps forward and goals of care. Holley Baires MD R1 Jun 16, 2016 18:32
[2016-06-16] MEDS: QUEtiapine FUMARATE 100 MG TAB PO SCH (21:10)
[2016-06-17] VITALS (17 sets, daily range): BP systolic 138–167; BP diastolic 63–79; PULSE 77–105; RESP 19–28; TEMP 98–98.8; O2SAT 93–100
[2016-06-17] MEDS: INSULIN NovoLIN REGULAR SUPPLEMENTAL SCALE SQ SCH ×4 (03:00→20:16)
[2016-06-17] MEDS ORDERED: SODIUM CHLORIDE 0.9% IV SCH (04:00)
[2016-06-17] MEDS ORDERED: CEFTAZIDIME IV SCH (04:00)
[2016-06-17] MEDS ORDERED: AVIBACTAM IV SCH (04:00)
[2016-06-17] MEDS: LEVOTHYROXINE SODIUM 50 MCG TAB PO SCH (05:17)
--- NOTE | 2016-06-17 05:28 | RADRPT ---
EXAM DATE/TIME: 06/17/2016 04:38 [facility] COMPARISON: CHEST SINGLE AP, June 14, 2016, 4:34. INDICATIONS : Shortness of breath, possible pulmonary disease. MEDICAL HISTORY : Hypertension. Congestive heart failure. SURGICAL HISTORY : None. ENCOUNTER: Subsequent ACUITY: 2 months PAIN SCORE: Non-responsive. LOCATION: Bilateral chest FINDINGS: Moderate right, small left pleural effusions and bibasilar atelectasis again noted, not significantly changed. No pneumothorax seen. Mild cardiomegaly is stable. CONCLUSION: No significant change. Garcia Ramirez MD on June 17, 2016 at 5:26 Board Certified Radiologist. This report was verified electronically.
[2016-06-17 06:01] LABS: AUTOMATED NEUTROPHIL # 7.3 TH/MM3 (1.8-7.7); BASOPHIL # 0.1 TH/MM3 (0-0.2); EOSINOPHIL # 0.3 TH/MM3 (0-0.4); EOSINOPHIL % 3.5 % (0.0-4.0); HEMATOCRIT 27.6 % (39.0-51.0); LYMPH % 14.6 % (9.0-44.0); LYMPHOCYTE # 1.4 TH/MM3 (1.0-4.8); MEAN CELL VOLUME 82.5 FL (80.0-100.0); MEAN CORPUSCULAR HEMOGLOBIN 25.5 PG (27.0-34.0); MEAN CORPUSCULAR HGB CONC 30.9 % (32.0-36.0); MONO % 5.4 % (0.0-8.0); NEUT % 75.5 % (16.0-70.0); PLATELET COUNT 218 TH/MM3 (150-450); RED BLOOD COUNT 3.35 MIL/MM3 (4.50-5.90); RED CELL DISTRIBUTION WIDTH 24.1 % (11.6-17.2); WHITE BLOOD COUNT 9.7 TH/MM3 (4.0-11.0)
[2016-06-17 06:04] LABS: HEMO FLAGS AUTO DIFF
[2016-06-17 06:29] LABS: BICARBONATE 41.1 MEQ/L (21.0-32.0); POTASSIUM 3.1 MEQ/L (3.5-5.1)
[2016-06-17] MEDS: POTASSIUM CHLOR 20 MEQ PREMIX 100 ML IV PRN ×4 (06:48→15:39)
[2016-06-17 06:54] LABS: BANDS 2 % (0-6); BASOPHILS 2 % (0-2); EOSINOPHILS 4 % (0-4); MYELOCYTES 2 % (0-0); NEUTROPHIL # MANUAL DIFF 7.8 TH/MM3 (1.8-7.7); POLYS (SEG NEUTROPHILS) 76 % (16-70); WBC DIFF SAMPLE 100
[2016-06-17 06:56] LABS: PLATELET ESTIMATE SMEAR NORMAL (NORMAL); PLATELET MORPHOLOGY NORMAL (NORMAL); POLYCHROMASIA 2.6 % (0.0-1.9); SCAN/DIFF FINAL DIFF MANUAL; STOMATOCYTES 1+ (NORMAL)
[2016-06-17] MEDS: RESP: BUDESONIDE 0.5 MG/2 ML NEB NEB SCH ×2 (07:25→20:23)
[2016-06-17] MEDS: CHLORHEXIDINE 0.12% (ORAL KIT) 15 ML CUP MT SCH ×2 (08:00→20:12)
[2016-06-17] MEDS: RESP: COLISTIN 150 MG VIAL NEB SCH ×2 (08:57→15:19)
[2016-06-17] MEDS: MULTIVITAMIN TAB PO SCH (09:00)
[2016-06-17] MEDS: ATORVASTATIN 10 MG TAB PO SCH (09:00)
[2016-06-17] MEDS: DILTIAZEM HCL 90 MG TAB PO SCH ×4 (09:00→20:10)
[2016-06-17] MEDS: FERROUS SULFATE 325 MG (65 MG ELEMENTAL IRON) TAB PO SCH (09:00)
[2016-06-17] MEDS: FENOFIBRATE 48 MG TAB PO SCH (09:00)
--- NOTE | 2016-06-17 09:14 | HHI.CCPN ---
Subjective Remarks/Hospital Course 31 year old morbidly obese (BMI 68) male with chronic respiratory failure s/p tracheostomy 4 years ago, atrial fibrillation and pulmonary embolism on Xarelto , COPD, CHF and h/o HTN. He presented from [facility] with low oxygen saturation apparently his oxygen saturation was 82% on RA. He was placed back on 6L of oxygen via his trach mask and given a breathing treatment, initially improved however he started drifting back to low 80s again. Chest x-ray showed bibasilar infiltrates and pulmonary edema. [facility] and was started on IV steroids IV vancomycin and Zosyn and Levaquin for healthcare associated pneumonia. After starting ACV, patient was more awake but there was a significant amount of air leak around his tracheostomy. Patient has had a Shiley 6.0 Proximal XLT, but the cat dog or other pet groomer balloon had been cut off. 05/02 the patient became acutely hypoxemic with a large cuff leak, underwent emergency trach exchange at bedside by Dr. Macias. FiO2 65% PEEP 14 05/13 Patient is on ventilator via trach, on Fentanyl infusion however he is awake and alert. On PRVC with FIO2 40%. Afebrile. 05/14 No acute events overnight. Tmax 99.8. Patient is awake, alert on ventilator via trach still requiring increase O2. On PRVC with PEEP: 10 and FIO2 70%. 05/15 patient acutely desaturated after he was found. Saturation went down to 70% on 100% oxygen. Bag and mask ventilation carried out, with eventual improvement on oxygen saturation to 85%. Patient was placed on PC/AC mode of ventilation, with PEEP of 15 and instructed to pressure of 30. Eventually oxygen saturation improved to 95%. Lasix him today as the chest x-ray from today shows increasing bilateral infiltrate and pulmonary edema. Also sputum culture will be sent 05/16 Patient is on Fentanyl and Diprivan infusion but awake and alert. Afebrile. On PC/AC with PEEP:15, IP: 22, IT:1.3 and FIO2 50% 05/17 Patient is off Diprivan and remains on Fentanyl infusion for sedation. On PC/AC with PEEP: down 10 and FIO2 40%. Afebrile. 05/18 Patient remains on ventilator via trach on PC/AC with PEEP:12, FIO2 40%, IP:22, IT:1.0. On Fentanyl infusion 05/19 No acute events overnight. On Fentanyl infusion but awake and alert. Afebrile. 05/20 Tolerating C Pap 17/12 FIO2 40, sats 98%. RSBI in 20s, appears can be weaned further. Afebrile. Speech therapy evaluated and ok for regular diet. Starting with full liquid. 05/21 Will wean PSV to 15/10. Tolerated full liquids, will advance to regular diet per speech recs. Subjective: 05/22 On PSV 15/10 FIO2 40 with sats 92%. Smiling today. Glad to be eating regular food again. 05/23 No acute events overnight. Remains on CPAP with PS 15, PEEP:10 and FIO2 40 %. Afebrile. Off Fentanyl drip. Afebrile. Awake and alert. 05/24 Patient is on CPAP 06/06 with 40% FIO2. Afebrile. Awake and alert, on no sedation. 05/25 No acute events overnight. Patient was placed back on PC/AC overnight. Tolerated CPAP trials during day yesterday. Awake and alert. On no drips. Afebrile. 05/26 Afebrile. Tmax 98.6. Today the patient complained of nausea requiring Zofran. The patient has a lack of an appetite, with noted hypoglycemia early this a.m. blood glucose level 69. Patient tolerating CPAP well greater than 12 hours in the last 24 hours. 05/27 The patient tolerated CPAP for over 36 hours, O2 sat a knee 94% on FIO2 40 %. The patient had an increase in appetite. The patient continues on full liquid diet. 05/28 The patient declined physical therapy treatment, yesterday and also overnight declined to be moved by nursing staff. The patient refused dinner last evening, of note patient was reevaluated by speech therapy and can consume a heart healthy diet with thin liquids. The patient continues on physical therapy for strengthening exercises of all extremities specifically noted right upper extremity continues to be weak with gross fibrillations noted in hand and forearm. 05/29 Afebrile. No change in right upper extremity weakness. The patient was seen by neurology yesterday plan for MRI today if possible in hospital MRI, and EMG studies. No complaints overnight. Patient continues to refuse to have activities performed, movement in bed. The patient appears to be depressed, psychiatry consulted. 05/30: Patient alert awake on CPAP. Following commands. Psych agrees the patient is depressed. MRI brain no acute findings 05/31: Awake alert. on PS 15/8. EMG could not be completed due to patient becoming anxious. Otherwise no acute events reported overnight 06/01: Remains PS from 15/8. Right upper extremity weakness persists. EMG to be repeated on Friday. Will need MRI of the brachial plexus. Chest x-ray is unchanged 06/02: States that "not feeling well". Febrile to 101.5. White count increasing but still within the normal range. Pancultured. We'll request ID reevaluation. 06/03: Resting in bed on C Pap/pressure support via tracheostomy. One out of 2 sets of blood cultures sent on 06/02 positive for gram-positive cocci. 06/04: Resting in bed on mechanical ventilation via tracheostomy. Afebrile overnight. MRI brachial plexus (06/03) revealed a collection near the right subscapularis muscle, possibly an abscess. Discussed with ID, orthopedics Dr. Velazquez consulted. I discussed the case with Dr. Velazquez this morning who feels this is probably an abscess however would be difficult to access surgically and he plans to set up percutaneous drainage by interventional radiology. 06/05: Resting in bed on mechanical ventilation via tracheostomy. Remains afebrile. Reportedly IR cannot do percutaneous drainage of collection involving right subscapularis muscle. 06/06: Resting in bed on mechanical ventilation via tracheostomy. Can actually speak around the trach. Remains afebrile. Dr. Velazquez evaluated patient and is scheduling surgery for drainage of fluid collection involving the right subscapularis muscle. 06/07: Resting in bed on mechanical ventilation via tracheostomy. Awaiting surgery today. 06/08: Status post I&D of collection near right shoulder/subscapularis on 06/[address] Velazquez. This morning patient is awake and alert complained of some pain at the surgical site. Remains on mechanical ventilation on C Pap/pressure support. 06/09: Sleeping, arousable. On mechanical ventilation with C Pap/pressure support overnight. Labs pending 06/10 No acute events overnight. On CPAP with PS 12, PEEP: 8, FIO2 40%. Afebrile. 06/11 Patient remains on CPAP with PS 10, PEEP: 8 and FIO2 40%. Afebrile. 06/12: No acute events overnight. Remains on CPAP 10/5. No specific complaints 06/13: Tolerating C Pap 10 over 5. Awake and alert following commands. Hemoglobin dropped from 8.6-7.1, no obvious bleeding. Sodium 140-149. Will give 1 unit of PRBC with 1 mg IV Bumex 06/14 No acute events overnight. On CPAP with PS 10, PEEP:5 and FIO2 50%. Afebrile. 06/15 No acute events overnight. Remains on CPAP 10/5 with 40% FIO2. Afebrile. 06/16 Patient remains on ventilator via trach on CPAP with PS 10, PEEP:5 and FIO2 40%. 06/17: Resting in bed on mechanical ventilation via tracheostomy. Feeling nauseous. Objective Vital Signs Date Time Temp Pulse Resp B/P Pulse Ox O2 Delivery O2 Flow Rate FiO2 06/17/16 07:26 95 40 06/17/16 06:00 80 06/17/16 04:00 98.3 28 139/65 06/16/16 15:40 T-piece 10.00 Intake and Output 06/16/16 06/16/16 06/16/16 07:59 15:59 23:59 Intake Total 725 ml 1958 ml 515 ml Output Total 875 ml 4200 ml 650 ml Balance -150 ml -2242 ml -135 ml Result Diagram: 06/17/16 0432 06/17/16 0432 Imaging Last Impressions Chest X-Ray 06/14/16 0600 Signed Impressions: Service Date/Time: Tuesday, June 14, 2016 04:34 - CONCLUSION: 1. Consolidative opacity at the right lung base most consistent with infiltrate and or effusion. 2. Moderate cardiomegaly Joshua Evangelista MD Liver Ultrasound 06/03/16 0000 Signed Impressions: Service Date/Time: Friday, June 03, 2016 08:10 - CONCLUSION: 1. There is some sludge in the gallbladder. This can be seen with chronic gallbladder disease. 2. Fatty infiltration of the liver which appears to be enlarged. 3. No mechanical biliary tract obstruction. 4. Splenomegaly. Lázaro Frankel MD Brachial Plexus MRI 06/03/16 0000 Signed Impressions: Service Date/Time: Friday, June 03, 2016 12:42 - CONCLUSION: There is a complex multiloculated soft tissue and cystic mass measuring approximately 5.5 x 6.0 x 7.8 cm involving the subscapularis muscle along the anterior right scapula. The differential considerations include neoplastic disease, infection and hematoma. Recommend a CT scan of the right shoulder to pre-plan for CT-guided aspiration/biopsy of this abnormality. Lázaro Frankel MD Cervical Spine MRI 05/29/16 0000 Signed Impressions: Service Date/Time: Sunday, May 29, 2016 13:51 - CONCLUSION: Limited study but appears normal. Vishnu Woodward MD Brain MRI 05/29/16 0000 Signed Impressions: Service Date/Time: Sunday, May 29, 2016 13:51 - CONCLUSION: 1. Focal chronic ischemic change in the high right frontal parietal convexity stable from previous CT scan. 2. No acute intracranial abnormality. 3. Minimal nonspecific white matter changes. Vishnu Woodward MD Upper Extremity Ultrasound 05/28/16 0000 Signed Impressions: Service Date/Time: Saturday, May 28, 2016 10:16 - CONCLUSION: 1. Negative for deep venous thrombosis. Venous line noted in cephalic, subclavian and internal jugular vein. Horacio Gupta MD Abdomen X-Ray 04/29/16 0000 Signed Impressions: Service Date/Time: Friday, April 29, 2016 07:12 - CONCLUSION: Suspect Dobbhoff tube in the distal stomach. Garcia Lujan MD Objective Remarks GENERAL: Patient is 31yo on ventilator via trach, awakens and follows commands. Super Morbidly obese. SKIN: Warm and dry. HEAD: Normocephalic. EYES: No scleral icterus. No injection or drainage. NECK: Supple, trachea midline. Shiley 6.0 Proximal XLT, (new trach placed ) CARDIOVASCULAR: No murmurs, gallops, or rubs by limited exam. RESPIRATORY: On mechanical ventilation, Breath sounds equal bilaterally. Distant secondary to habitus. GASTROINTESTINAL: Abdomen soft, obese, non-tender, nondistended. Multiple noted areas of ecchymotic bruising secondary to subcutaneous injections MUSCULOSKELETAL: No cyanosis, or edema. Pedal edema. Wound on lateral aspect of right lower leg above lateral malleolus , dressing C/D/I. right upper extremity motor strength, inability to perform flexion, or pronation, hand contour grinder strength 2/5. Dressing around the right axilla/shoulder Neuro: Arousable. Moves all extremities with focal deficit right upper extremity as above. Date of Insertion: Apr 24, 2016 A/P Assessment and Plan ASSESSMENT Acute hypercapnic and hypoxemic respiratory failure Acute worsening of hypoxia due to lung de-recruitment 05/15/16 Healthcare associated pneumonia MDR Pseudomonas Enterococcal bacteremia Pseudomonas bacteremia Collection near right subscapularis muscle(On MRI 06/03) - abscess status post I& D on 06/07 Sepsis CHF exacerbation CO2 narcosis Tracheostomy cat dog or other pet groomer balloon damage -status post exchange with new Shiley 6.0 Proximal XLT 05/02/16 Chronic Respiratory Failure s/p Tracheostomy 4 years ago (Shiley 6.0 Proximal XLT) Probable right brachial plexus injury COPD/obesity hypoventilation syndrome Morbid Obesity BMI 67 History of pulmonary embolism 4 years ago Chronic atrial fibrillation Anxiety CHF (Echo 2013 EF 40-45%; ECHO 08/2015 showing a grossly normal systolic function) Hypertension Hypothyroidism PLAN NEURO: CO2 narcosis - resolved Critical care polyneuropathy Right upper extremity weakness 05/21-possibly secondary to nerve compression, C6 , C7 (brachial plexus) Pain Anxiety Depression -Collection near right subscapularis muscle(On MRI 06/03) - abscess status post I &D on 06/07 -EMG/ NCV could not be completed on 05/[address] Castillo -Clinically has right brachial plexus involvement. MRI of brachial plexus on 06/03 revealed collection involving right subscapularis muscle- s/p I & D on 06/[address] Velazquez. -Continued PT daily, with strengthening exercise (encouraged patient to participate) patient counseled on the importance. -Neurology Dr. Cheek-MRI brain C spine no acute findings. -Venous Doppler RUE 05/28-negative for DVT - On Seroquel. Continue Zoloft 50mg daily -On morphine 4 mg IV every 3 hours as needed for breakthrough pain. RESP: Acute hypercapnic and hypoxemic respiratory failure Acute lung derecruitment 05/15 with hypoxia Healthcare associated pneumonia Tracheostomy cat dog or other pet groomer balloon damage (Shiley 6.0 Proximal XLT) s/p new trach placement 05/02 Chronic Respiratory Failure s/p Tracheostomy 4 years ago COPD/obesity hypoventilation syndrome History of pulmonary embolism 4 years ago Leukocytosis-resolved Pulmonary edema - Continue with vent support keep sat >90%.on CPAP 04/03, 40% FIO2. Attempt TP/ TC as beatriz - Pulm toilet, trach care - s/p Bronchoscopy 05/11 -follow up on BAL results negative - DuoNeb every 6 hours scheduled, q 2 prn. - Pulmicort BID (home med), Continue Singulair 10 mg po daily CV: CHF exacerbation Pulmonary edema Paroxysmal atrial fibrillation (chronic) Hyperlipidemia -Monitor HR and BP keep MAP>65mmHg -Cardizem 90mg QID. Bumex to 1mg daily PO. -Continue Lipitor 10 g by mouth daily. Continue TriCor 40 mg by mouth daily -Therapeutic Lovenox 150 mg twice a day GI: Super morbid obesity with BMI of 63 -Regular diet ,thin liquids per speech recs. -Liver US 06/03: Fatty liver, sludge in gall bladder, splenomegaly, no mechanical obstruction of bile duct noted. -On Protonix 20mg BID. Zofran prn for nausea. -Multivitamin to medication regimen FEN/RENAL: - Monitor renal function , I/O. - Electrolytes replacement per protocol. - Bumex 1mg PO daily, KCL 40meq Q12 ID: Healthcare associated pneumonia Sepsis New fever MDRO Cellulitis right arm-resolved Leukocytosis-resolved Enterococcal faecalis bacteremia, Pseudomonas bacteremia (06/02, 06/03) -Rocephin (05/12- 05/25) -Blood culture: aerobic and anaerobic bottles - enterococcus faecalis, pseudomonas aeruginosa 06/02, 06/03 -Urine culture 06/02 pseudomonas aeruginosa Wound culture 06/02 pseudomonas aeruginosa Sputum culture 06/02 Pseudomonas -Urine cx: Proteus Mirabilis 05/05 -Sputum cx: Providencia 05/05- resolved -Wound cx: 05/13 Proteus, Pseudomonas, Group D Enterococcus -Wound culture Pseudomonas MDR 04/27 -Sputum culture-Pseudomonas MDR- 04/27 -Bronchoscopy and re-culture 05/10 follow up on BAL results-neg to date -Follow up on sputum cx from 05/15- NGTD -Continue abx per ID ( IV vancomycin, colistin nebs, Zerbaxa for MDR pseudomonas in blood cultures) MRI brachial plexus (06/03) revealed a collection involving right subscapularis muscle near right anterior axilla , possibly an abscess Dr. Velazquez performed drainage of collection surgically on 06/07. HEME: History of PE on chronic anticoagulation with Xarelto Anemia, iron deficiency and anemia of critical illness. -Monitor CBC, transfused 1U PRBC 06/13 -Xarelto for PE 4 yrs ago. -Xarelto.held, On therapeutic Lovenox 150 mg twice a day -Ferrous sulfate 300 mg/q day ENDO: Hypothyroidism -On SSI (Low scale) -Continue levothyroxine 50 mcg po daily -Free T4 1.52 PROPH: -Bilateral lower extremity SCDs.Lovenox 150 mg twice a day GI prophylaxis- Protonix 20mg BID LINES: - PICC line RUE- No DVT on US 05/02 - removed on 06/03. Out of bed with assistance. PT out of bed with vent. OT. Level 3 Bo Land MD Jun 17, 2016 09:14
[2016-06-17] MEDS: ONDANSETRON HCL 4 MG/2 ML VIAL IV PUSH PRN (09:17)
[2016-06-17] MEDS: SODIUM CHLORIDE 0.9% FLUSH 5 ML FLUSH IVF SCH ×2 (09:19→20:11)
[2016-06-17] MEDS: COLLAGENASE OINT 30 GM TUBE TOP SCH (09:20)
[2016-06-17] MEDS: NYSTATIN 100,000 U/GM PWD 15 GM BTL TOPICAL SCH ×2 (09:20→20:11)
[2016-06-17] MEDS: MICONAZOLE NITRATE 2% CREAM 15 GM TOP SCH ×2 (09:20→20:12)
--- NOTE | 2016-06-17 12:04 | HHI.FPPN ---
Subjective Remarks No acute events overnight. Afebrile vital signs stable overnight. Patient did have a trial of T piece to room air yesterday, but he failed this trial. He will have another T piece to room air trial today. Patient does report some nausea today. He reports mild improvement with Zofran, but he still reports some persistent nausea. He also reports some diarrhea for about the past week. Per nurse report, patient is tolerating CPAP well, and he only eats less than half of his food. Objective Vitals Vital Signs Date Time Temp Pulse Resp B/P Pulse Ox O2 Delivery O2 Flow Rate FiO2 06/17/16 10:00 105 06/17/16 08:00 98.1 84 27 151/69 100 06/17/16 08:00 40 06/17/16 08:00 80 06/17/16 07:26 95 40 06/17/16 06:00 80 06/17/16 04:00 50 06/17/16 04:00 85 06/17/16 04:00 98.3 85 28 139/65 95 06/17/16 03:30 95 40 06/17/16 02:00 82 06/17/16 00:00 50 06/17/16 00:00 85 06/17/16 00:00 98.1 85 21 138/63 93 06/16/16 23:32 90 50 06/16/16 22:00 85 06/16/16 21:57 92 40 06/16/16 20:29 92 40 06/16/16 20:00 40 06/16/16 20:00 92 06/16/16 20:00 98.3 92 24 149/66 89 06/16/16 18:00 94 06/16/16 16:00 95 06/16/16 16:00 40 06/16/16 16:00 98.7 95 20 158/72 91 06/16/16 15:55 92 40 06/16/16 15:40 88 T-piece 10.00 70 06/16/16 14:35 17 06/16/16 14:00 90 I/O 06/16/16 06/16/16 06/16/16 06/17/16 06/17/16 06/17/16 07:00 15:00 23:00 07:00 15:00 23:00 Intake Total 725 ml 1958 ml 515 ml 183 ml Output Total 875 ml 4200 ml 650 ml 250 ml Balance -150 ml -2242 ml -135 ml -67 ml Intake Oral 250 ml 1400 ml 200 ml IV Total 475 ml 558 ml 315 ml 183 ml Output Urine Total 875 ml 4200 ml 650 ml 250 ml # Bowel Movements 2 0 Result Diagram: 06/17/1643106/17/16431 Objective Remarks GEN: Morbidly obese male in NAD. DERM: Warm and dry. No erythema or skin breakdown appreciated. Numerous skin folds 2/2 habitus. Bandage R lateral malleolus c/d/i. Bandage RUE c/d/i. HEENT: Tracheotomy site c/d/i. Poor dentition. CV: Distant heart sounds. RRR. Normal peripheral perfusion. RESP: Transmitted upper respiratory sounds. No wheezing GI: Abdomen soft, obese, non-tender. +BS MSK: External rotation of RLE. LE edema 2+ bilaterally. No calf tenderness NEURO: CN grossly normal. Peripheral motor and sensory function not tested Procedures 04/24- Started ventilation 05/02- Emergency Trach Exchange 06/03- PICC line removed 06/07- Debridement of RUE abscess (Dr. Velazquez), RUE drain placed 06/10- RUE drain removal Date of Insertion: Apr 24, 2016 A/P Assessment and Plan 31y with super morbid obesity, mphis-zo-efreijt respiratory failure, tracheostomy seal leak, and HCAP Discharge Planning Days to weeks, pending weaning from mechanical ventilation. Ideally, return to rehab on baseline NC oxygen. Consider snf vent facility depending on status. Problem List: (1) Nausea Status: Chronic Plan: Chronic. Ddx: GERD vs psychosomatic vs impaired gastric emptying vs medication side effect. - Zofran 4mg IV q6h PRN nausea - Reglan 10mg ACHS PRN nausea - Protonix 20mg BID REYES - Mg-Al liquid q6h PRN dyspepsia (2) Bacteremia Status: Acute Plan: - Vancomycin IV daily goal trough 15-20, (06/03 -- ) Stop 12/20 per ID - Zerbaxa IV q8h (06/05-- ) Stop 12/20 per ID - Colistin 75mg q8h NEB continue - Acetaminophen 325mg PRN fever - Trend CBC, CMP daily Impression: Pseudomonas aeruginosa and Enterococcus faecalis bacteremia secondary to PICC infection vs HCAP. Repeat BCx 06/06 negative (compared to positive 06/03 culture). However, UCx 06/06 grew +Group D Enterococcus. Pt asymptomatic for urinary symptoms. Has willard placed. Likely colonized. Serial CXR show cardiomegaly w b/l pulm edema and R pleural effusion. Abx History Zosyn 4.5gm IV q6h (04/24 - 04/29) Levaquin 750mg IV q24h (04/24-04/30) Zerbaxa 1.5 g IV q8h (04/29 - 05/07) Vancomycin IV (04/24 - 05/06) Ceftriaxone IV (05/07 - 05/25) Linezolid 600 mg PO BID (05/06 - 05/13) Zosyn 3.375 q6h (06/04- 06/05) Vancomycin (06/03-- ) Zerbaxa (ceftozolane/tazobactam) (06/05 --) (3) Hematoma Status: Acute Plan: - Daily dressing changes with xeroform and primapore - Daily PT/OT, as tolerated. PT targeting RUE weakness. - Continue Abx (see bactermia) Impression: Hematoma contributing to RUE weakness x4 weeks. S/p I&D by Dr. Velazquez (06/07/16). Small hematoma found during procedure inconsistent with 6cm x 6cm x 8cm abscess suggested by MRI brachial plexus. Ddx for RUE weakness: hematoma vs C6/C7 neuropathy. L hemispheric pathology, and seizure ruled out ( see below). Unable to tolerate EMG. Imaging: - US negative for DVT (05/28) - MRI brain (04/28) no acute intracranial process - MRI C-spine (05/29): grossly wnl - EEG (05/29): diffuse mild encephalopathy vs normal Stage 2 sleep - MRI brachial plexus (06/03): "Complex multiloculated soft tissue and cystic mass 5.5 x 6 x 7.8 cm involving subscapularis muscle along anterior R scapula - Pathology report (06/07): fragments of blood clot admixed with few minute fragments of adipose and skeletal muscle tissue (4) On mechanically assisted ventilation Status: Acute Plan: - CPAP (PS 10, PEEP 5, FiO2 40%) via trach. Advance to TC/TP, as tolerated. Weaning per CC - Pulmicort BID REYES - Duonebs q2h PRN - Singulair 10mg daily Impression: Weaning from vent appears to have hit plateau- watermaster plans for dispo? Acute on chronic hypoxemic respiratory failure secondary to HCAP ( resolved) and tracheostomy leak (s/p exchange 05/02). Mechanical ventilation initiated 04/24. Solumedrol (05/10-06/03) (5) Paroxysmal a-fib Status: Chronic Plan: -Sinus rhyth, regular rate at this time - Lovenox 150mg IV BID, per critical care (6) Hypertension Status: Chronic Plan: - Cardiazem 90mg QID - Labetalol 10mg IV PRN SBP 160+ (7) CHF (congestive heart failure) Status: Chronic Plan: Suspected HF with poor EF, though unable to confirm via ECHO (04/25) due to poor imaging. BNP elevated on admission, downtrended. - Bumex 1mg PO daily + 40 KCl BID - 1.5L fluid restriction, monitor I/Os, monitor renal function, peripheral edema (8) Stable medical conditions Status: Chronic Plan: NORMOCYTIC ANEMIA - Ferrous sulfate 325mg PO daily - Multivitamin 1 tab PO daily HYPERLIPIDEMIA -Atorvastatin 10mg daily - Tricor 48mg daily MDD: Pt reports stable mood; some anhedonia suspected. Previously, refusing meals, shower, PT - Sertraline 100 mg PO daily - Seroquel 100mg HS INSOMNIA -Zolpidem 5mg HS PRN GOUT -Allopurinol 300mg daily HYPOTHYROIDISM 08/2015- TSH low, free T4 grossly wnl (05/27/16) -Synthroid 50 mcg PO daily FUNGAL INFECTION -Nystatin powder and miconazole creme to skin folds MORBID OBESITY WITH BMI 60-69 -see above plan for mechanical ventilation RESOLVED CONDITIONS THIS HOSPITAL VISIT - Cellulitis of Chest Wall: completed course linezolid (05/06-05/13), per ID recs - Yeast UTI: completed course Diflucan. UCx 05/01: Dionne albicans. Repeat UCx 05/05: Proteus Mirabilis - HCAP: s/p multiple abx (9) Nutrition, metabolism, and development symptoms Status: Acute Plan: FEN: Fluids: PO (Limited 1.5L/day) Electrolytes: +40KCl BID. Chronically hypokalemic, replete per protocol Nutrition: 2Kcal heart healthy diet. Transitioned to oral feeds (05/29). Wt: Admission: 480 lbs PPX GI ppx: Protonix 20mg BID DVT ppx: Lovenox 150mg BID Pain: Oxycodone 7.5/325 q4h PRN Bowel: Senna 1 tab HS PRN DW: Dr Rogers SDW: Dr. Anderson Problem Qualifiers (1) Hypertension: Qualified Code: I10 - Essential hypertension (2) CHF (congestive heart failure): Qualified Code: I50.9 - Acute on chronic congestive heart failure, unspecified congestive heart failure type Joshua Moreno MD R1 Jun 17, 2016 12:04
[2016-06-17] MEDS: MONTELUKAST SODIUM 10 MG TAB PO SCH (12:27)
[2016-06-17] MEDS: CEFTOLOZANE-TAZOBACTAM INJ 1,500 MG in SODIUM CHLORIDE 0.9% INJ 100 ML IV SCH (12:27)
[2016-06-17] MEDS: ENOXAPARIN SODIUM 150 MG/ML SYRINGE SQ SCH ×2 (12:27→20:10)
[2016-06-17] MEDS: PANTOPRAZOLE SOD 20 MG DELAYED RELEASE TAB PO SCH ×2 (12:27→20:11)
[2016-06-17] MEDS: VANCOMYCIN INJ 2,250 MG in SODIUM CHLORID 0.9% 500 ML INJ 500 ML IV SCH (12:27)
[2016-06-17] MEDS: ALLOPURINOL 300 MG TAB PO SCH (12:28)
[2016-06-17] MEDS: BUMETANIDE 1 MG TAB PO SCH (12:28)
[2016-06-17] MEDS: POTASSIUM CHLORIDE 20 MEQ CONTROLLED RELEASE TAB PO SCH ×2 (12:28→22:40)
[2016-06-17] MEDS: SERTRALINE HCL 100 MG TAB PO SCH (12:28)
[2016-06-17] MEDS: MORPHINE SULFATE 4 MG/ML INJ IV PUSH PRN ×2 (18:36→22:51)
[2016-06-17] MEDS: QUEtiapine FUMARATE 100 MG TAB PO SCH (20:11)
[2016-06-17] MEDS: oxyCODONE/ACETAMINOPHEN 7.5 MG/325 MG TAB PO PRN (20:11)
[2016-06-17] MEDS: NS IV SCH (20:13)
[2016-06-17] MEDS: CEFTAZIDIME IV SCH (20:13)
[2016-06-17] MEDS: AVIBACTAM IV SCH (20:13)
[2016-06-17] MEDS: ZOLPIDEM TARTRATE 5 MG TAB PO PRN (22:40)
[2016-06-18] VITALS (19 sets, daily range): BP systolic 115–158; BP diastolic 59–75; PULSE 74–97; RESP 18–22; TEMP 97.5–98.6; O2SAT 91–100
[2016-06-18] MEDS: RESP: COLISTIN 150 MG VIAL NEB SCH ×4 (00:15→23:12)
[2016-06-18] MEDS: INSULIN NovoLIN REGULAR SUPPLEMENTAL SCALE SQ SCH ×4 (03:00→21:00)
[2016-06-18] MEDS: AVIBACTAM IV SCH ×3 (05:19→19:34)
[2016-06-18] MEDS: LEVOTHYROXINE SODIUM 50 MCG TAB PO SCH (05:19)
[2016-06-18] MEDS: CEFTAZIDIME IV SCH ×3 (05:19→19:34)
[2016-06-18] MEDS: NS IV SCH ×3 (05:19→19:34)
[2016-06-18] MEDS ORDERED: PHARMACY ORDERED LAB XX ONE (05:45)
[2016-06-18 07:10] LABS: VANCOMYCIN TROUGH 15.1 MCG/ML (5.0-10.0)
[2016-06-18] MEDS: RESP: BUDESONIDE 0.5 MG/2 ML NEB NEB SCH ×2 (07:39→20:02)
[2016-06-18] MEDS: CHLORHEXIDINE 0.12% (ORAL KIT) 15 ML CUP MT SCH ×2 (08:00→19:36)
[2016-06-18 08:41] LABS: HEMATOCRIT 27.4 % (39.0-51.0); MEAN CELL VOLUME 84.2 FL (80.0-100.0); MEAN CORPUSCULAR HEMOGLOBIN 26.5 PG (27.0-34.0); MEAN CORPUSCULAR HGB CONC 31.5 % (32.0-36.0); PLATELET COUNT 208 TH/MM3 (150-450); RED BLOOD COUNT 3.25 MIL/MM3 (4.50-5.90); RED CELL DISTRIBUTION WIDTH 25.1 % (11.6-17.2); REVIEW FLAG FINAL; WHITE BLOOD COUNT 9.6 TH/MM3 (4.0-11.0)
[2016-06-18 08:56] LABS: POTASSIUM 4.1 MEQ/L (3.5-5.1)
[2016-06-18] MEDS: FENOFIBRATE 48 MG TAB PO SCH (09:00)
[2016-06-18] MEDS: ONDANSETRON HCL 4 MG/2 ML VIAL IV PUSH PRN (09:31)
[2016-06-18] MEDS: ENOXAPARIN SODIUM 150 MG/ML SYRINGE SQ SCH ×2 (09:31→19:34)
[2016-06-18] MEDS: MORPHINE SULFATE 4 MG/ML INJ IV PUSH PRN ×2 (09:31→19:35)
[2016-06-18] MEDS: SODIUM CHLORIDE 0.9% FLUSH 5 ML FLUSH IVF SCH ×2 (09:32→19:36)
[2016-06-18] MEDS: MULTIVITAMIN TAB PO SCH (09:32)
[2016-06-18] MEDS: POTASSIUM CHLORIDE 20 MEQ CONTROLLED RELEASE TAB PO SCH (09:32)
[2016-06-18] MEDS: DILTIAZEM HCL 90 MG TAB PO SCH ×4 (09:32→19:35)
[2016-06-18] MEDS: MONTELUKAST SODIUM 10 MG TAB PO SCH (09:32)
[2016-06-18] MEDS: BUMETANIDE 1 MG TAB PO SCH (09:32)
[2016-06-18] MEDS: ALLOPURINOL 300 MG TAB PO SCH (09:32)
[2016-06-18] MEDS: FERROUS SULFATE 325 MG (65 MG ELEMENTAL IRON) TAB PO SCH (09:32)
[2016-06-18] MEDS: PANTOPRAZOLE SOD 20 MG DELAYED RELEASE TAB PO SCH ×2 (09:32→19:35)
[2016-06-18] MEDS: ATORVASTATIN 10 MG TAB PO SCH (09:32)
[2016-06-18] MEDS: SERTRALINE HCL 100 MG TAB PO SCH (09:32)
[2016-06-18] MEDS: NYSTATIN 100,000 U/GM PWD 15 GM BTL TOPICAL SCH ×2 (09:34→19:36)
[2016-06-18] MEDS: MICONAZOLE NITRATE 2% CREAM 15 GM TOP SCH ×2 (09:34→19:36)
[2016-06-18] MEDS: COLLAGENASE OINT 30 GM TUBE TOP SCH (09:34)
--- NOTE | 2016-06-18 10:11 | HHI.CCPN ---
Subjective Remarks/Hospital Course 31 year old morbidly obese (BMI 68) male with chronic respiratory failure s/p tracheostomy 4 years ago, atrial fibrillation and pulmonary embolism on Xarelto , COPD, CHF and h/o HTN. He presented from [facility] with low oxygen saturation apparently his oxygen saturation was 82% on RA. He was placed back on 6L of oxygen via his trach mask and given a breathing treatment, initially improved however he started drifting back to low 80s again. Chest x-ray showed bibasilar infiltrates and pulmonary edema. Patient was admitted to the [facility] and was started on IV steroids IV vancomycin and Zosyn and Levaquin for healthcare associated pneumonia. After starting ACV, patient was more awake but there was a significant amount of air leak around his tracheostomy. Patient has had a Shiley 6.0 Proximal XLT, but the piece dyer balloon had been cut off. 05/02 the patient became acutely hypoxemic with a large cuff leak, underwent emergency trach exchange at bedside by Dr. Macias. FiO2 65% PEEP 14 05/13 Patient is on ventilator via trach, on Fentanyl infusion however he is awake and alert. On PRVC with FIO2 40%. Afebrile. 05/14 No acute events overnight. Tmax 99.8. Patient is awake, alert on ventilator via trach still requiring increase O2. On PRVC with PEEP: 10 and FIO2 70%. 05/15 Pt acutely desaturated after he was found. Saturation down to 70% on 100 % oxygen. Bag and mask ventilation carried out, with eventual improvement on oxygen saturation to 85%. Patient was placed on PC/AC mode of ventilation, with PEEP of 15 and instructed to pressure of 30. Eventually oxygen saturation improved to 95%. Lasix him today as the chest x-ray from today shows increasing bilateral infiltrate and pulmonary edema. Sputum culture will be sent 05/16 Patient is on Fentanyl and Diprivan infusion but awake and alert. Afebrile. On PC/AC with PEEP:15, IP: 22, IT:1.3 and FIO2 50% 05/17 Patient is off Diprivan and remains on Fentanyl infusion for sedation. On PC/AC with PEEP: down 10 and FIO2 40%. Afebrile. 05/18 Patient remains on ventilator via trach on PC/AC with PEEP:12, FIO2 40%, IP:22, IT:1.0. On Fentanyl infusion 05/19 No acute events overnight. On Fentanyl infusion but awake and alert. Afebrile. 05/20 Tolerating C Pap 17/12 FIO2 40, sats 98%. RSBI in 20s, appears can be weaned further. Afebrile. Speech therapy evaluated and ok for regular diet. Starting with full liquid. 05/21 Will wean PSV to 15/10. Tolerated full liquids, will advance to regular diet per speech recs. Subjective: 05/22 On PSV 15/10 FIO2 40 with sats 92%. Smiling today. Glad to be eating regular food again. 05/23 No acute events overnight. Remains on CPAP with PS 15, PEEP:10 and FIO2 40 %. Afebrile. Off Fentanyl drip. Afebrile. Awake and alert. 05/24 Patient is on CPAP 06/06 with 40% FIO2. Afebrile. Awake and alert, on no sedation. 05/25 No acute events overnight. Patient was placed back on PC/AC overnight. Tolerated CPAP trials during day yesterday. Awake and alert. On no drips. Afebrile. 05/26 Afebrile. Tmax 98.6. Today the patient complained of nausea requiring Zofran. The patient has a lack of an appetite, with noted hypoglycemia early this a.m. blood glucose level 69. Patient tolerating CPAP well greater than 12 hours in the last 24 hours. 05/27 The patient tolerated CPAP for over 36 hours, O2 sat a knee 94% on FIO2 40 %. The patient had an increase in appetite. The patient continues on full liquid diet. 05/28 The patient declined physical therapy treatment, yesterday and also overnight declined to be moved by nursing staff. The patient refused dinner last evening, of note patient was reevaluated by speech therapy and can consume a heart healthy diet with thin liquids. The patient continues on physical therapy for strengthening exercises of all extremities specifically noted right upper extremity continues to be weak with gross fibrillations noted in hand and forearm. 05/29 Afebrile. No change in right upper extremity weakness. The patient was seen by neurology yesterday plan for MRI today if possible in hospital MRI, and EMG studies. No complaints overnight. Patient continues to refuse to have activities performed, movement in bed. The patient appears to be depressed, psychiatry consulted. 12/1: Patient alert awake on CPAP. Following commands. Psych agrees the patient is depressed. MRI brain no acute findings 05/31: Awake alert. on PS 15/8. EMG could not be completed due to patient becoming anxious. Otherwise no acute events reported overnight 06/01: Remains PS from 11/02. Right upper extremity weakness persists. EMG to be repeated on Friday. Will need MRI of the brachial plexus. Chest x-ray is unchanged 06/02: States that "not feeling well". Febrile to 101.5. White count increasing but still within the normal range. Pancultured. We'll request ID reevaluation. 06/03: Resting in bed on C Pap/pressure support via tracheostomy. One out of 2 sets of blood cultures sent on 06/02 positive for gram-positive cocci. 06/04: Resting in bed on mechanical ventilation via tracheostomy. Afebrile overnight. MRI brachial plexus (06/03) revealed a collection near the right subscapularis muscle, possibly an abscess. Discussed with ID, orthopedics Dr. Velazquez consulted. I discussed the case with Dr. Velazquez this morning who feels this is probably an abscess however would be difficult to access surgically and he plans to set up percutaneous drainage by interventional radiology. 06/05: Resting in bed on mechanical ventilation via tracheostomy. Remains afebrile. Reportedly IR cannot do percutaneous drainage of collection involving right subscapularis muscle. 06/06: Resting in bed on mechanical ventilation via tracheostomy. Can actually speak around the trach. Remains afebrile. Dr. Velazquez evaluated patient and is scheduling surgery for drainage of fluid collection involving the right subscapularis muscle. 06/07: Resting in bed on mechanical ventilation via tracheostomy. Awaiting surgery today. 06/08: Status post I&D of collection near right shoulder/subscapularis on 06/[address] Velazquez. This morning patient is awake and alert complained of some pain at the surgical site. Remains on mechanical ventilation on C Pap/pressure support. 06/09: Sleeping, arousable. On mechanical ventilation with C Pap/pressure support overnight. Labs pending 06/10 No acute events overnight. On CPAP with PS 12, PEEP: 8, FIO2 40%. Afebrile. 06/11 Patient remains on CPAP with PS 10, PEEP: 8 and FIO2 40%. Afebrile. 06/12: No acute events overnight. Remains on CPAP 10/5. No specific complaints 06/13: Tolerating C Pap 10 over 5. Awake and alert following commands. Hemoglobin dropped from 8.6-7.1, no obvious bleeding. Sodium 140-149. Will give 1 unit of PRBC with 1 mg IV Bumex 06/14 No acute events overnight. On CPAP with PS 10, PEEP:5 and FIO2 50%. Afebrile. 06/15 No acute events overnight. Remains on CPAP 10/5 with 40% FIO2. Afebrile. 06/16 Patient remains on ventilator via trach on CPAP with PS 10, PEEP:5 and FIO2 40%. 06/17: Resting in bed on mechanical ventilation via tracheostomy. Feeling nauseous. 06/18: OOB in reclining chair. Reporting low back and leg pain that is positional. Continued nausea, denies emesis. CPAP w PS 5 FIO2 40%. Will attempt Tpiece trial today. Discontinue Vanc + Zerbaxa today per ID Objective Vital Signs Date Time Temp Pulse Resp B/P Pulse Ox O2 Delivery O2 Flow Rate FiO2 06/18/16 08:00 97.5 80 18 152/75 100 06/18/16 07:40 40 06/16/16 15:40 T-piece 10.00 Intake and Output 06/17/16 06/17/16 06/18/16 08:00 16:00 00:00 Intake Total 183 ml 974 ml 1145 ml Output Total 250 ml 650 ml 1400 ml Balance -67 ml 324 ml -255 ml Result Diagram: 06/18/16 0821 06/18/16 0821 Imaging Last 72 hours Impressions Chest X-Ray 06/17/16 0600 Signed Impressions: Service Date/Time: Friday, June 17, 2016 04:38 - CONCLUSION: No significant change. Garcia Ramirez MD Objective Remarks GENERAL: 31yo on ventilator via trach, awakens and follows commands. Super morbidly obese. SKIN: Warm and dry. HEAD: Normocephalic. EYES: No scleral icterus. No injection or drainage. NECK: Supple, trachea midline. Shiley 6.0 Proximal XLT, (new trach placed ) CARDIOVASCULAR: No murmurs, gallops, or rubs by limited exam. RESPIRATORY: On mechanical ventilation, Breath sounds equal bilaterally. Distant secondary to habitus. GASTROINTESTINAL: Abdomen soft, obese, non-tender, nondistended. Multiple noted areas of ecchymotic bruising secondary to subcutaneous injections MUSCULOSKELETAL: No cyanosis, or edema. Pedal edema. Wound on lateral aspect of right lower leg above lateral malleolus , dressing C/D/I. right upper extremity motor strength, inability to perform flexion, or pronation, hand last picker strength 2/5. Dressing around the right axilla/shoulder Neuro: Arousable. Moves all extremities with focal deficit right upper extremity as above. Urinary Catheter: Yes Assessment to: Continue [place] insert reason: Measure Accurate Output Date of Insertion: Jun 06, 2016 Vascular Central Line Catheter: No A/P Assessment and Plan ASSESSMENT Acute hypercapnic and hypoxemic respiratory failure Acute worsening of hypoxia due to lung de-recruitment 05/15/16 Healthcare associated pneumonia MDR Pseudomonas Enterococcal bacteremia Pseudomonas bacteremia Collection near right subscapularis muscle(On MRI 06/03) - abscess status post I& D on 06/07 Sepsis CHF exacerbation CO2 narcosis Tracheostomy piece dyer balloon damage -status post exchange with new Shiley 6.0 Proximal XLT 05/02/16 Chronic Respiratory Failure s/p Tracheostomy 4 years ago (Shiley 6.0 Proximal XLT) Probable right brachial plexus injury COPD/obesity hypoventilation syndrome Morbid Obesity BMI 60-69 History of pulmonary embolism 4 years ago Chronic atrial fibrillation Anxiety CHF (Echo 2013 EF 40-45%; ECHO 08/2015 showing a grossly normal systolic function) Hypertension Hypothyroidism PLAN NEURO: CO2 narcosis - resolved Critical care polyneuropathy Right upper extremity weakness 05/21-possibly secondary to nerve compression, C6 , C7 (brachial plexus) Pain Anxiety Depression -Collection near right subscapularis muscle(On MRI 06/03) - abscess status post I &D on 06/07 -EMG/ NCV could not be completed on 05/[address] Castillo -Clinically has right brachial plexus involvement. MRI of brachial plexus on 06/03 revealed collection involving right subscapularis muscle- s/p I & D on 06/[address] Velazquez. -Continued PT daily, with strengthening exercise (encouraged patient to participate) patient counseled on the importance. -Neurology Dr. Cheek-MRI brain C spine no acute findings. -Venous Doppler RUE 05/28-negative for DVT -Continue Seroquel 100mg HS. Continue Zoloft 100mg daily -Morphine 4 mg IV every 3 hours as needed for breakthrough pain. RESP: Acute hypercapnic and hypoxemic respiratory failure Acute lung derecruitment 05/15 with hypoxia Healthcare associated pneumonia Tracheostomy piece dyer balloon damage (Shiley 6.0 Proximal XLT) s/p new trach placement 05/02 Chronic Respiratory Failure s/p Tracheostomy 4 years ago COPD/obesity hypoventilation syndrome History of pulmonary embolism 4 years ago Leukocytosis-resolved Pulmonary edema - Continue with vent support keep sat >90% on CPAP 5, 40% FIO2. Attempt TP/TC as tolerated - Pulm toilet, trach care - s/p Bronchoscopy 05/11 -follow up on BAL results negative - DuoNeb every 6 hours scheduled, q 2 prn. - Continue Pulmicort BID, Singulair 10 mg PO daily CV: CHF exacerbation Pulmonary edema Paroxysmal atrial fibrillation (chronic) Hyperlipidemia -Monitor HR and BP keep MAP>65mmHg -Cardizem 90mg QID. Bumex 1mg daily PO. -Continue Lipitor 10 g by mouth daily. Continue TriCor 40mg by mouth daily -Therapeutic Lovenox 150 mg twice a day GI: Super morbid obesity with BMI of 64 Nausea GERD -Regular diet, thin liquids per speech recs -Liver US 06/03: Fatty liver, sludge in gall bladder, splenomegaly, no mechanical obstruction of bile duct noted. -Protonix 20mg BID. Zofran prn for nausea. -Multivitamin to medication regimen FEN/RENAL: Hypokalemia - Monitor renal function , I/O - Electrolytes replacement per protocol. - Bumex 1mg PO daily, KCL 40meq Q12 ID: Healthcare associated pneumonia Sepsis New fever MDRO Cellulitis right arm-resolved Leukocytosis-resolved Enterococcal faecalis bacteremia, Pseudomonas bacteremia (06/02, 06/03) Blood culture: aerobic and anaerobic bottles - enterococcus faecalis, pseudomonas aeruginosa 06/02, 06/03 Urine culture 06/02 pseudomonas aeruginosa Wound culture 06/02 pseudomonas aeruginosa Sputum culture 06/02 Pseudomonas -Sputum cx 05/15- NG -Wound cx: 05/13 Proteus, Pseudomonas, Group D Enterococcus -Bronchoscopy and re-culture 05/10- NG -Urine cx: Proteus Mirabilis 05/05 -Sputum cx: Providencia 05/05 -Wound culture Pseudomonas MDR 04/27 -Sputum culture-Pseudomonas MDR- 04/27 -MRI brachial plexus (06/03) revealed a collection involving right subscapularis muscle near right anterior axilla , possibly an abscess -Dr. Velazquez performed drainage of collection surgically on 06/07. - Stop IV Vanc and Zerbaxa per ID on 06/18. (MDR pseudomonas in blood cultures) - Continue colistin nebs. HEME: History of PE on chronic anticoagulation with Xarelto Iron deficiency anemia and anemia of critical illness. -Monitor CBC, transfused 1U PRBC 06/13 -Xarelto for PE 4 yrs ago. -Xarelto.held, On therapeutic Lovenox 150 mg twice a day -Ferrous sulfate 300 mg/q day ENDO: Hypothyroidism -On SSI (Low scale) -Continue levothyroxine 50 mcg po daily -Free T4 1.52 PROPH: -Lower extremity SCDs (L leg only, R ankle cellulitis), Lovenox 150 mg twice a day GI prophylaxis- Protonix 20mg BID LINES: - PICC line RUE- No DVT on US 05/02 - removed on 06/03. Out of bed with assistance. PT out of bed with vent. OT. Addendum: Patient seen and examined earlier. Discussed findings, assessment and plan with Dr. Bhardwaj. Agree with above note. Holley Baires MD R1 Jun 18, 2016 10:10 Bo Land MD Jun 18, 2016 15:41 - PICC line RUE- No DVT on US 05/02 - removed on 06/03. Out of bed with assistance. PT out of bed with vent. OT. Level 3 Holley Baires MD R1 Jun 18, 2016 10:10 GI: Super morbid obesity with BMI of 63 -Regular diet ,thin liquids per speech recs. -Liver US 06/03: Fatty liver, sludge in gall bladder, splenomegaly, no mechanical obstruction of bile duct noted. -On Protonix 20mg BID. Zofran prn for nausea. -Multivitamin to medication regimen FEN/RENAL: - Monitor renal function , I/O. - Electrolytes replacement per protocol. - Bumex 1mg PO daily, KCL 40meq Q12 ID: Healthcare associated pneumonia Sepsis New fever MDRO Cellulitis right arm-resolved Leukocytosis-resolved Enterococcal faecalis bacteremia, Pseudomonas bacteremia (06/02, 06/03) -Rocephin (05/12- 05/25) -Blood culture: aerobic and anaerobic bottles - enterococcus faecalis, pseudomonas aeruginosa 06/02, 06/03 -Urine culture 06/02 pseudomonas aeruginosa Wound culture 06/02 pseudomonas aeruginosa Sputum culture 06/02 Pseudomonas -Urine cx: Proteus Mirabilis 05/05 -Sputum cx: Providencia 05/05- resolved -Wound cx: 05/13 Proteus, Pseudomonas, Group D Enterococcus -Wound culture Pseudomonas MDR 04/27 -Sputum culture-Pseudomonas MDR- 04/27 -Bronchoscopy and re-culture 05/10 follow up on BAL results-neg to date -Follow up on sputum cx from 05/15- NGTD -Continue abx per ID ( IV vancomycin, colistin nebs, Zerbaxa for MDR pseudomonas in blood cultures) MRI brachial plexus (06/03) revealed a collection involving right subscapularis muscle near right anterior axilla , possibly an abscess Dr. Velazquez performed drainage of collection surgically on 06/07. HEME: History of PE on chronic anticoagulation with Xarelto Anemia, iron deficiency and anemia of critical illness. -Monitor CBC, transfused 1U PRBC 06/13 -Xarelto for PE 4 yrs ago. -Xarelto.held, On therapeutic Lovenox 150 mg twice a day -Ferrous sulfate 300 mg/q day ENDO: Hypothyroidism -On SSI (Low scale) -Continue levothyroxine 50 mcg po daily -Free T4 1.52 PROPH: -Bilateral lower extremity SCDs.Lovenox 150 mg twice a day GI prophylaxis- Protonix 20mg BID LINES: - PICC line RUE- No DVT on US 05/02 - removed on 06/03. Out of bed with assistance. PT out of bed with vent. OT. Level 3 Holley Baires MD R1 Jun 18, 2016 10:10
--- NOTE | 2016-06-18 11:09 | HHI.FPPN ---
Subjective Remarks No acute events overnight. Afebrile vital signs stable overnight. Pt is sitting up in chair after PT. Wants to transfer back to bed. Still c/o diarrhea, which he has had for over a week. Objective Vitals Vital Signs Date Time Temp Pulse Resp B/P Pulse Ox O2 Delivery O2 Flow Rate FiO2 06/18/16 10:00 86 06/18/16 08:00 50 06/18/16 08:00 95 06/18/16 08:00 97.5 80 18 152/75 100 06/18/16 07:40 100 40 06/18/16 06:00 79 06/18/16 04:00 98.6 79 20 152/71 100 06/18/16 04:00 76 06/18/16 04:00 50 06/18/16 03:42 97 40 06/18/16 02:00 80 06/18/16 00:16 94 40 06/18/16 00:00 84 06/18/16 00:00 40 06/18/16 00:00 98.2 88 18 152/75 94 06/17/16 22:00 82 06/17/16 20:24 99 40 06/17/16 20:00 40 06/17/16 20:00 98.0 91 19 153/72 100 06/17/16 20:00 91 06/17/16 18:00 77 06/17/16 16:00 86 06/17/16 16:00 98.8 87 19 145/66 98 06/17/16 16:00 40 06/17/16 15:19 96 40 06/17/16 14:00 92 06/17/16 12:08 98 40 06/17/16 12:00 85 06/17/16 12:00 40 06/17/16 12:00 98.2 84 22 167/79 100 I/O 06/17/16 06/17/16 06/17/16 06/18/16 06/18/16 06/18/16 07:00 15:00 23:00 07:00 15:00 23:00 Intake Total 183 ml 974 ml 1145 ml 1351 ml Output Total 250 ml 650 ml 1400 ml 400 ml Balance -67 ml 324 ml -255 ml 951 ml Intake Oral 360 ml 350 ml 1200 ml IV Total 183 ml 614 ml 795 ml 151 ml Output Urine Total 250 ml 650 ml 1400 ml 400 ml # Bowel Movements 0 0 0 Result Diagram: 06/18/1682006/18/16820 Objective Remarks GEN: Morbidly obese male in NAD. DERM: Warm and dry. No erythema or skin breakdown appreciated. Numerous skin folds 2/2 habitus. Bandage R lateral malleolus c/d/i. Bandage RUE c/d/i. HEENT: Tracheotomy site c/d/i. Poor dentition. CV: Distant heart sounds. RRR. Normal peripheral perfusion. RESP: Transmitted upper respiratory sounds. No wheezing GI: Abdomen soft, obese, non-tender. +BS. Bruises on lower abdomen. MSK: External rotation of RLE. LE edema 2+ bilaterally. No calf tenderness NEURO: CN grossly normal. Peripheral motor and sensory function not tested Procedures 04/24- Started ventilation 05/02- Emergency Trach Exchange 06/03- PICC line removed 06/07- Debridement of RUE abscess (Dr. Velazquez), RUE drain placed 06/10- RUE drain removal Date of Insertion: Jun 06, 2016 A/P Assessment and Plan 31y with super morbid obesity, [id number] respiratory failure, tracheostomy seal leak, and HCAP with + urine, blood, wound, sputum cultures. Discharge Planning Days to weeks, pending weaning from mechanical ventilation. Ideally, return to rehab on baseline NC oxygen. Consider skilled nursing vent facility depending on status. Problem List: (1) Nausea Status: Chronic Plan: Chronic. Ddx: GERD vs psychosomatic vs impaired gastric emptying vs medication side effect. - Zofran 4mg IV q6h PRN nausea - Reglan 10mg ACHS PRN nausea - Protonix 20mg BID REYES - Mg-Al liquid q6h PRN dyspepsia (2) Bacteremia Status: Acute Plan: - Vancomycin IV daily goal trough 15-20, (06/03 -- ) Stop 12/20 per ID. Today is last day of abx. - Zerbaxa IV q8h (06/05-- ) Stop 12/20 per ID. Today is last day of abx. - Colistin 75mg q8h NEB continue - Acetaminophen 325mg PRN fever - Trend CBC, CMP daily Impression: Pseudomonas aeruginosa and Enterococcus faecalis bacteremia secondary to PICC infection vs HCAP. Repeat BCx 06/06 negative (compared to positive 06/03 culture). However, UCx 06/06 grew +Group D Enterococcus. Pt asymptomatic for urinary symptoms. Has willard placed. Likely colonized. Serial CXR show cardiomegaly w b/l pulm edema and R pleural effusion. Abx History Zosyn 4.5gm IV q6h (04/24 - 04/29) Levaquin 750mg IV q24h (04/24-04/30) Zerbaxa 1.5 g IV q8h (04/29 - 05/07) Vancomycin IV (04/24 - 05/06) Ceftriaxone IV (05/07 - 05/25) Linezolid 600 mg PO BID (05/06 - 05/13) Zosyn 3.375 q6h (06/04- 06/05) Vancomycin (06/03-- ) Zerbaxa (ceftozolane/tazobactam) (06/05 --) (3) Hematoma Status: Acute Plan: - Daily dressing changes with xeroform and primapore - Daily PT/OT, as tolerated. PT targeting RUE weakness. - Continue Abx (see bactermia) until end of today. Impression: Hematoma contributing to RUE weakness x4 weeks. S/p I&D by Dr. Velazquez (06/07/16). Small hematoma found during procedure inconsistent with 6cm x 6cm x 8cm abscess suggested by MRI brachial plexus. Ddx for RUE weakness: hematoma vs C6/C7 neuropathy. L hemispheric pathology, and seizure ruled out ( see below). Unable to tolerate EMG. Imaging: - US negative for DVT (05/28) - MRI brain (04/28) no acute intracranial process - MRI C-spine (05/29): grossly wnl - EEG (05/29): diffuse mild encephalopathy vs normal Stage 2 sleep - MRI brachial plexus (06/03): "Complex multiloculated soft tissue and cystic mass 5.5 x 6 x 7.8 cm involving subscapularis muscle along anterior R scapula - Pathology report (06/07): fragments of blood clot admixed with few minute fragments of adipose and skeletal muscle tissue (4) On mechanically assisted ventilation Status: Acute Plan: - CPAP (PS 10, PEEP 5, FiO2 40%) via trach. Advance to TC/TP, as tolerated. Weaning per CC. Failed T-piece trial yesterday. - Pulmicort BID REYES - Duonebs q2h PRN - Singulair 10mg daily Impression: Weaning from vent appears to have hit plateau- salvage determiner plans for dispo? Acute on chronic hypoxemic respiratory failure secondary to HCAP ( resolved) and tracheostomy leak (s/p exchange 05/02). Mechanical ventilation initiated 04/24. Solumedrol (05/10-06/03) (5) Paroxysmal a-fib Status: Chronic Plan: -Sinus rhyth, regular rate at this time - Lovenox 150mg IV BID, per critical care (6) Hypertension Status: Chronic Plan: - Cardiazem 90mg QID - Labetalol 10mg IV PRN SBP 160+ (7) CHF (congestive heart failure) Status: Chronic Plan: Suspected HF with poor EF, though unable to confirm via ECHO (04/25) due to poor imaging. BNP elevated on admission, downtrended. - Bumex 1mg PO daily + 40 KCl BID - 1.5L fluid restriction, monitor I/Os, monitor renal function, peripheral edema (8) Stable medical conditions Status: Chronic Plan: NORMOCYTIC ANEMIA - Ferrous sulfate 325mg PO daily - Multivitamin 1 tab PO daily HYPERLIPIDEMIA -Atorvastatin 10mg daily - Tricor 48mg daily MDD: Pt reports stable mood; some anhedonia suspected. Previously, refusing meals, shower, PT - Sertraline 100 mg PO daily - Seroquel 100mg HS INSOMNIA -Zolpidem 5mg HS PRN GOUT -Allopurinol 300mg daily HYPOTHYROIDISM 08/2015- TSH low, free T4 grossly wnl (05/27/16) -Synthroid 50 mcg PO daily FUNGAL INFECTION -Nystatin powder and miconazole creme to skin folds MORBID OBESITY WITH BMI 60-69 -see above plan for mechanical ventilation RESOLVED CONDITIONS THIS HOSPITAL VISIT - Cellulitis of Chest Wall: completed course linezolid (05/06-05/13), per ID recs - Yeast UTI: completed course Diflucan. UCx 05/01: Dionne albicans. Repeat UCx 05/05: Proteus Mirabilis - HCAP: s/p multiple abx (9) Nutrition, metabolism, and development symptoms Status: Acute Plan: FEN: Fluids: PO (Limited 1.5L/day) Electrolytes: +40KCl BID. Chronically hypokalemic, replete per protocol Nutrition: 2Kcal heart healthy diet. Transitioned to oral feeds (05/29). Wt: Admission: 480 lbs PPX GI ppx: Protonix 20mg BID DVT ppx: Lovenox 150mg BID Pain: Oxycodone 7.5/325 q4h PRN Bowel: Senna 1 tab HS PRN DW: Dr Rogers SDW: Dr. Anderson Problem Qualifiers (1) Hypertension: Qualified Code: I10 - Essential hypertension (2) CHF (congestive heart failure): Qualified Code: I50.9 - Acute on chronic congestive heart failure, unspecified congestive heart failure type Joshua Moreno MD R1 Jun 18, 2016 11:09
[2016-06-18] MEDS: VANCOMYCIN INJ 2,250 MG in SODIUM CHLORID 0.9% 500 ML INJ 500 ML IV SCH (11:29)
--- NOTE | 2016-06-18 13:14 | HHI.IDPN ---
Subjective Subjective Remarks Notes reviewed Temps ok Clinically doing well Doing well on CPAP, and doing some T-piece trials Not SOB BP good Antibiotics Colistin nebs Avycaz Vanco IV Lines PIVs Past Medical History Chronic Respiratory Failure s/p Tracheostomy 4 years ago Morbid Obesity w/ BMI 67.6 Atrial fibrillation Pulmonary embolism 4 years ago Anxiety CHF (Echo 06/07/2014 w/ EF 40-45%; ECHO 08/2015 showing a grossly normal systolic function) HTN Hypothyroidism Past Surgical History Tracheostomy Tonsillectomy Allergies: Coded Allergies: *MDRO Multi-Drug Resistant Organism (Verified Adverse Reaction, Unknown, 05/08/16) XDR Pseudomonas aeruginosa (sputum) - 09/18/15; (sputum & wound) - 04/27/16 Objective . Vital Signs Date Time Temp Pulse Resp B/P Pulse Ox O2 Delivery O2 Flow Rate FiO2 06/18/16 13:01 95 40 06/18/16 12:00 77 06/18/16 12:00 97.5 85 18 158/72 100 06/18/16 12:00 50 06/18/16 10:00 86 06/18/16 08:00 50 06/18/16 08:00 95 06/18/16 08:00 97.5 80 18 152/75 100 06/18/16 07:40 100 40 06/18/16 06:00 79 06/18/16 04:00 98.6 79 20 152/71 100 06/18/16 04:00 76 06/18/16 04:00 50 06/18/16 03:42 97 40 06/18/16 02:00 80 06/18/16 00:16 94 40 06/18/16 00:00 84 06/18/16 00:00 40 06/18/16 00:00 98.2 88 18 152/75 94 06/17/16 22:00 82 06/17/16 20:24 99 40 06/17/16 20:00 40 06/17/16 20:00 98.0 91 19 153/72 100 06/17/16 20:00 91 06/17/16 18:00 77 06/17/16 16:00 86 06/17/16 16:00 98.8 87 19 145/66 98 06/17/16 16:00 40 06/17/16 15:19 96 40 12/19/16 14:00 92 06/17/16 06/17/16 06/18/16 15:00 23:00 07:00 Intake Total 974 ml 1145 ml 1351 ml Output Total 650 ml 1400 ml 400 ml Balance 324 ml -255 ml 951 ml Intake Oral 360 ml 350 ml 1200 ml IV Total 614 ml 795 ml 151 ml Output Urine Total 650 ml 1400 ml 400 ml # Bowel Movements 0 0 . Laboratory Tests Test 06/17/16 06/18/16 04:32 08:21 White Blood Count 9.7 TH/MM3 9.6 TH/MM3 Red Blood Count 3.35 MIL/MM3 3.25 MIL/MM3 Hemoglobin 8.5 GM/DL 8.6 GM/DL Hematocrit 27.6 % 27.4 % Mean Corpuscular Volume 82.5 FL 84.2 FL Mean Corpuscular Hemoglobin 25.5 PG 26.5 PG Mean Corpuscular Hemoglobin 30.9 % 31.5 % Concent Red Cell Distribution Width 24.1 % 25.1 % Platelet Count 218 TH/MM3 208 TH/MM3 Mean Platelet Volume 7.2 FL 7.1 FL Neutrophils (%) (Auto) 75.5 % Lymphocytes (%) (Auto) 14.6 % Monocytes (%) (Auto) 5.4 % Eosinophils (%) (Auto) 3.5 % Basophils (%) (Auto) 1.0 % Neutrophils # (Auto) 7.3 TH/MM3 Lymphocytes # (Auto) 1.4 TH/MM3 Monocytes # (Auto) 0.5 TH/MM3 Eosinophils # (Auto) 0.3 TH/MM3 Basophils # (Auto) 0.1 TH/MM3 CBC Comment AUTO DIFF Differential Total Cells 100 Counted Neutrophils % (Manual) 76 % Band Neutrophils % 2 % Lymphocytes % 9 % Monocytes % 5 % Eosinophils % 4 % Basophils % 2 % Neutrophils # (Manual) 7.8 TH/MM3 Myelocytes 2 % Differential Comment FINAL DIFF MANUAL Platelet Estimate NORMAL Platelet Morphology Comment NORMAL Polychromasia 2.6 % Basophilic Stippling FAINT Stomatocytes 1+ Laboratory Tests Test 06/17/16 06/17/16 06/18/16 06/18/16 04:32 22:33 06:19 08:21 Sodium Level 141 MEQ/L 139 MEQ/L Potassium Level 3.1 MEQ/L 3.8 MEQ/L 4.1 MEQ/L Chloride Level 93 MEQ/L 95 MEQ/L Carbon Dioxide Level 41.1 MEQ/L 38.0 MEQ/L Anion Gap 7 MEQ/L 6 MEQ/L Blood Urea Nitrogen 5 MG/DL 5 MG/DL Creatinine 0.34 MG/DL 0.30 MG/DL 0.38 MG/DL Estimat Glomerular Filtration 301 ML/MIN 347 ML/MIN 264 ML/MIN Rate Random Glucose 76 MG/DL 80 MG/DL Calcium Level 8.7 MG/DL 8.6 MG/DL Imaging Chest X-Ray 06/17/16599 Signed Impressions: Service Date/Time: Friday, June 17, 2016 04:38 - CONCLUSION: No significant change. Garcia Ramirez MD Chest X-Ray 06/03/16599 Signed Impressions: Service Date/Time: Friday, June 03, 2016 03:22 - CONCLUSION: 1. Cardiomegaly with bilateral pulmonary edema. 2. Moderate right pleural effusion. Vishnu Woodward MD Liver Ultrasound 06/03/16 Signed Impressions: Service Date/Time: Friday, June 03, 2016 08:10 - CONCLUSION: 1. There is some sludge in the gallbladder. This can be seen with chronic gallbladder disease. 2. Fatty infiltration of the liver which appears to be enlarged. 3. No mechanical biliary tract obstruction. 4. Splenomegaly. Lázaro Frankel MD Brachial Plexus MRI 06/03/16 Signed Impressions: Service Date/Time: Friday, June 03, 2016 12:42 - CONCLUSION: There is a complex multiloculated soft tissue and cystic mass measuring approximately 5.5 x 6.0 x 7.8 cm involving the subscapularis muscle along the anterior right scapula. The differential considerations include neoplastic disease, infection and hematoma. Recommend a CT scan of the right shoulder to pre-plan for CT-guided aspiration/biopsy of this abnormality. Lázaro Frankel MD Cervical Spine MRI 05/29/16 Signed Impressions: Service Date/Time: Sunday, May 29, 2016 13:51 - CONCLUSION: Limited study but appears normal. Vishun Woodward MD Brain MRI 05/29/16 Signed Impressions: Service Date/Time: Sunday, May 29, 2016 13:51 - CONCLUSION: 1. Focal chronic ischemic change in the high right frontal parietal convexity stable from previous CT scan. 2. No acute intracranial abnormality. 3. Minimal nonspecific white matter changes. Vishnu Woodward MD Upper Extremity Ultrasound 05/28/16 0000 Signed Impressions: Service Date/Time: Saturday, May 28, 2016 10:16 - CONCLUSION: 1. Negative for deep venous thrombosis. Venous line noted in cephalic, subclavian and internal jugular vein. Horacio Gupta MD Abdomen X-Ray 04/29/16 0000 Signed Impressions: Service Date/Time: Friday, April 29, 2016 07:12 - CONCLUSION: Suspect Dobbhoff tube in the distal stomach. Garcia Lujan MD Chest X-Ray 05/20/16 0000 Signed Impressions: Service Date/Time: Friday, May 20, 2016 03:21 - CONCLUSION: Persistent mid and lower lung areas of consolidation or atelectasis being worse in the right. There has been mild improvement. Garcia Lujan MD Chest X-Ray 05/16/16 0600 Signed Impressions: Service Date/Time: April 03:21 - CONCLUSION: 1. Slight improvement in bilateral airspace disease over the last day. Horacio Gupta MD Chest X-Ray 05/15/16 0600 Signed Impressions: Service Date/Time: Sunday, May 15, 2016 04:31 - CONCLUSION: 1. Slight increase in airspace disease since May 13. Differential diagnosis includes pulmonary edema. Support apparatus unchanged. Horacio Gupta MD Chest X-Ray 05/13/16 06 Signed Impressions: Service Date/Time: Friday, May 13, 2016 03:26 - CONCLUSION: 1. Stable exam compared with May 12 with bilateral mostly basilar airspace disease. Horacio Gupta MD Chest X-Ray 05/10/16 06 Signed Impressions: Service Date/Time: Tuesday, May 10, 2016 02:45 - CONCLUSION: Worsening right lower lobe infiltrate. Jeremiah Walton Jr., MD Chest X-Ray 05/09/16 06 Signed Impressions: Service Date/Time: April 02:52 - CONCLUSION: No significant change has occurred. Bill Zavala MD Chest X-Ray 05/08/16 06 Signed Impressions: Service Date/Time: Sunday, May 08, 2016 04:01 - CONCLUSION: No significant change has occurred. Bill Zavala MD Chest X-Ray 05/05/16 0600 Signed Impressions: Service Date/Time: Thursday, May 05, 2016 01:56 - CONCLUSION: Improved aeration bilaterally particularly in the left upper lobe. Tube and catheter are stable. Amador Brock MD Chest X-Ray 05/03/16 0000 Signed Impressions: Service Date/Time: Tuesday, May 03, 2016 06:40 - CONCLUSION: Increasing bilateral diffuse pulmonary infiltrates compared to the prior study. Lázaro Frankel MD Upper Extremity Ultrasound 05/02/16 0000 Signed Impressions: Service Date/Time: April 20:51 - CONCLUSION: No DVT. Garcia Lujan MD Abdomen X-Ray 04/29/16 0000 Signed Impressions: Service Date/Time: Friday, April 29, 2016 07:12 - CONCLUSION: Suspect Dobbhoff tube in the distal stomach. Garcia Lujan MD Physical Exam GENERAL: Awake and alert, NAD SKIN: Warm and moist. No generalized rash. HEENT: [place] conjunctivae. Full EOM. No scleral icterus. Moist mucosa. NECK: Trach, site ok. Supple, no meningeal signs. CARDIOVASCULAR: Regular rate and rhythm. Distant heart sounds. RESPIRATORY: Decreased BS bilaterally. GASTROINTESTINAL: Abdomen soft, morbidly obese, not tender, not distended. MUSCULOSKELETAL: Extremities without clubbing, cyanosis. Has mild pitting edema. Incision is dry NEUROLOGICAL: Awake and following, responding : [place] in place, urine looks clear Assessment & Plan Remarks IMPRESSION E.faecalis and MDR Pseudomonas bacteremia: from PICC line site with fevers: Central line associated blood stream infection(CLABSI). - PICC removed - repeat BC negative Scapular areas fluid collection, looks more of hematoma than abscess, no C/S sent MDR PSAE PNA, S/P Rx PSAE in urine: likely colonization or translocation of bacteria from PSAE bacteremia. - now with Enterococcus in UC Morbid obesity Sleep apnea Hx PE Anorexia RECOMMENDATION Continue Vanco IV (target trough 15-20) Continue Zerbaxa IV (ASP: has known MDR PSAE and now has bacteremia.) Continue Colistin nebs. - Will only suppress organism with Colistin given prior MDR and clinically stable at this point. - give until 06/27 To finish Abx today Monitor progress Weaning per CCM as tolerated Dana Tam MD Jun 18, 2016 13:14
[2016-06-18] MEDS: RESP: ALBUTEROL 2.5 MG/IPRATROPIUM 0.5 MG NEB (PRN) NEB (15:54)
[2016-06-18] MEDS: QUEtiapine FUMARATE 100 MG TAB PO SCH (19:35)
[2016-06-19] VITALS (17 sets, daily range): BP systolic 141–153; BP diastolic 62–70; PULSE 74–91; RESP 20–24; TEMP 98.3–98.9; O2SAT 94–100
[2016-06-19] MEDS: INSULIN NovoLIN REGULAR SUPPLEMENTAL SCALE SQ SCH ×4 (03:00→19:34)
[2016-06-19] MEDS: LEVOTHYROXINE SODIUM 50 MCG TAB PO SCH (04:48)
[2016-06-19] MEDS: POTASSIUM CHLORIDE 20 MEQ CONTROLLED RELEASE TAB PO SCH ×3 (04:50→19:33)
--- NOTE | 2016-06-19 07:16 | HHI.FPPN ---
Subjective Remarks No acute events overnight. Afebrile vital signs stable overnight. States his diarrhea is improved and he is feeling ok right now. No complaints at this time. No cp, n/v, sob. (Abel Conner MD R2) Objective Vitals Vital Signs Date Time Temp Pulse Resp B/P Pulse Ox O2 Delivery O2 Flow Rate FiO2 06/19/16 06:00 86 06/19/16 04:00 87 06/19/16 04:00 98.7 87 22 153/70 95 06/19/16 04:00 45 06/19/16 03:40 94 45 06/19/16 02:00 91 06/19/16 00:00 90 06/19/16 00:00 98.3 89 21 141/62 94 06/19/16 00:00 45 06/18/16 22:45 92 45 06/18/16 22:00 95 06/18/16 20:03 92 40 06/18/16 20:00 94 06/18/16 20:00 35 06/18/16 20:00 98.3 74 20 115/59 91 06/18/16 18:00 80 06/18/16 16:00 97 06/18/16 16:00 50 06/18/16 16:00 97.5 93 22 143/65 100 06/18/16 15:56 99 40 06/18/16 14:00 85 06/18/16 13:01 95 40 06/18/16 12:00 77 06/18/16 12:00 97.5 85 18 158/72 100 06/18/16 12:00 50 06/18/16 10:00 86 06/18/16 08:00 50 06/18/16 08:00 95 06/18/16 08:00 97.5 80 18 152/75 100 06/18/16 07:40 100 40 I/O 06/18/16 06/18/16 06/18/16 06/19/16 06/19/16 06/19/16 07:00 15:00 23:00 07:00 15:00 23:00 Intake Total 1351 ml 1309 ml 528 ml 417 ml Output Total 400 ml 2750 ml 450 ml 350 ml Balance 951 ml -1441 ml 78 ml 67 ml Intake Oral 1200 ml 420 ml 350 ml 350 ml IV Total 151 ml 889 ml 178 ml 67 ml Output Urine Total 400 ml 2750 ml 450 ml 350 ml # Bowel Movements 0 2 0 0 (Abel Conner MD R2) Result Diagram: 06/18/1682006/18/16820 Objective Remarks GEN: Morbidly obese male in NAD. DERM: Warm and dry. No erythema or skin breakdown appreciated. Numerous skin folds 2/2 habitus. Bandage R lateral malleolus c/d/i. Bandage RUE c/d/i. HEENT: Tracheotomy site c/d/i. Poor dentition. CV: Distant heart sounds. RRR. Normal peripheral perfusion. RESP: Transmitted upper respiratory sounds. No wheezing GI: Abdomen soft, obese, non-tender. +BS. Bruises on lower abdomen. MSK: External rotation of RLE. LE edema 2+ bilaterally. No calf tenderness NEURO: CN grossly normal. Peripheral motor and sensory function not tested Procedures 04/24- Started ventilation 05/02- Emergency Trach Exchange 06/03- PICC line removed 06/07- Debridement of RUE abscess (Dr. Velazquez), RUE drain placed 06/10- RUE drain removal (Abel Conner MD R2) Date of Insertion: Jun 06, 2016 (Abel Conner MD R2) A/P Assessment and Plan 31y with super morbid obesity, [id number] respiratory failure, tracheostomy seal leak, and HCAP with + urine, blood, wound, sputum cultures. Discharge Planning Days to weeks, pending weaning from mechanical ventilation. Ideally, return to rehab on baseline NC oxygen. Consider bed bug exterminator vent facility depending on status. (Abel Conner MD R2) Attending Attestation Patient seen and examined. Case reviewed and discussed with the resident team. Agree with plan of care as discussed with me and documented in the resident note. (Asia Conner MD) Problem List: (1) Nausea Status: Chronic Plan: Chronic. Ddx: GERD vs psychosomatic vs impaired gastric emptying vs medication side effect. - Zofran 4mg IV q6h PRN nausea - Reglan 10mg ACHS PRN nausea - Protonix 20mg BID REYES - Mg-Al liquid q6h PRN dyspepsia (2) Bacteremia Status: Acute Plan: Infectious disease following - Colistin 75mg q8h NEB continue - Acetaminophen 325mg PRN fever - Trend CBC, CMP daily Impression: Pseudomonas aeruginosa and Enterococcus faecalis bacteremia secondary to PICC infection vs HCAP. Repeat BCx 06/06 negative (compared to positive 06/03 culture). However, UCx 06/06 grew +Group D Enterococcus. Pt asymptomatic for urinary symptoms. Has willard placed. Likely colonized. Serial CXR show cardiomegaly w b/l pulm edema and R pleural effusion. Abx History Zosyn 4.5gm IV q6h (04/24 - 04/29) Levaquin 750mg IV q24h (04/24-04/30) Zerbaxa 1.5 g IV q8h (04/29 - 05/07) Vancomycin IV (04/24 - 05/06) Ceftriaxone IV (05/07 - 05/25) Linezolid 600 mg PO BID (05/06 - 05/13) Zosyn 3.375 q6h (06/04- 06/05) - Vancomycin IV daily goal trough 15-20, (06/03 -- ) Stop 12/20 per ID. Today is last day of abx. - Zerbaxa IV q8h (06/05-- ) Stop 12/20 per ID. Today is last day of abx. (3) Hematoma Status: Acute Plan: - Daily dressing changes with xeroform and primapore - Daily PT/OT, as tolerated. PT targeting RUE weakness. Initial Impression: Hematoma contributing to RUE weakness x4 weeks. S/p I&D by Dr. Velazquez (06/07/16). Small hematoma found during procedure inconsistent with 6cm x 6cm x 8cm abscess suggested by MRI brachial plexus. Ddx for RUE weakness: hematoma vs C6/C7 neuropathy. L hemispheric pathology, and seizure ruled out ( see below). Unable to tolerate EMG. Imaging: - US negative for DVT (05/28) - MRI brain (04/28) no acute intracranial process - MRI C-spine (05/29): grossly wnl - EEG (05/29): diffuse mild encephalopathy vs normal Stage 2 sleep - MRI brachial plexus (06/03): "Complex multiloculated soft tissue and cystic mass 5.5 x 6 x 7.8 cm involving subscapularis muscle along anterior R scapula - Pathology report (06/07): fragments of blood clot admixed with few minute fragments of adipose and skeletal muscle tissue (4) On mechanically assisted ventilation Status: Acute Plan: - CPAP (PS 10, PEEP 5, FiO2 40%) via trach. Advance to TC/TP, as tolerated. Weaning per CC. - Pulmicort BID REYES - Duonebs q2h PRN - Singulair 10mg daily Impression: Weaning from vent appears to have hit plateau- half-way plans for dispo? Acute on chronic hypoxemic respiratory failure secondary to HCAP ( resolved) and tracheostomy leak (s/p exchange 05/02). Mechanical ventilation initiated 04/24. Solumedrol (05/10-06/03) (5) Paroxysmal a-fib Status: Chronic Plan: -Sinus rhyth, regular rate at this time - Lovenox 150mg IV BID, per critical care (6) Hypertension Status: Chronic Plan: - Cardiazem 90mg QID - Labetalol 10mg IV PRN SBP 160+ (7) CHF (congestive heart failure) Status: Chronic Plan: Suspected HF with poor EF, though unable to confirm via ECHO (04/25) due to poor imaging. BNP elevated on admission, downtrended. - Bumex 1mg PO daily + 40 KCl BID - 1.5L fluid restriction, monitor I/Os, monitor renal function, peripheral edema (8) Stable medical conditions Status: Chronic Plan: NORMOCYTIC ANEMIA - Ferrous sulfate 325mg PO daily - Multivitamin 1 tab PO daily HYPERLIPIDEMIA -Atorvastatin 10mg daily - Tricor 48mg daily MDD: Pt reports stable mood; some anhedonia suspected. Previously, refusing meals, shower, PT - Sertraline 100 mg PO daily - Seroquel 100mg HS INSOMNIA -Zolpidem 5mg HS PRN GOUT -Allopurinol 300mg daily HYPOTHYROIDISM 08/2015- TSH low, free T4 grossly wnl (05/27/16) -Synthroid 50 mcg PO daily FUNGAL INFECTION -Nystatin powder and miconazole creme to skin folds MORBID OBESITY WITH BMI 60-69 -see above plan for mechanical ventilation RESOLVED CONDITIONS THIS HOSPITAL VISIT - Cellulitis of Chest Wall: completed course linezolid (05/06-05/13), per ID recs - Yeast UTI: completed course Diflucan. UCx 05/01: Dionne albicans. Repeat UCx 05/05: Proteus Mirabilis - HCAP: s/p multiple abx (9) Nutrition, metabolism, and development symptoms Status: Acute Plan: FEN: Fluids: PO (Limited 1.5L/day) Electrolytes: +40KCl BID. Chronically hypokalemic, replete per protocol Nutrition: 2Kcal heart healthy diet. Transitioned to oral feeds (05/29). Wt: Admission: 480 lbs PPX GI ppx: Protonix 20mg BID DVT ppx: Lovenox 150mg BID Pain: Oxycodone 7.5/325 q4h PRN Bowel: Senna 1 tab HS PRN wdw: Dr. Conner (Abel Conner MD R2) Problem Qualifiers (1) Hypertension: Qualified Code: I10 - Essential hypertension (2) CHF (congestive heart failure): Qualified Code: I50.9 - Acute on chronic congestive heart failure, unspecified congestive heart failure type Abel Conner MD R2 Jun 19, 2016 07:16 Asia Conner MD Jun 19, 2016 13:00
[2016-06-19] MEDS: RESP: BUDESONIDE 0.5 MG/2 ML NEB NEB SCH ×2 (07:27→19:45)
[2016-06-19] MEDS: PANTOPRAZOLE SOD 20 MG DELAYED RELEASE TAB PO SCH ×2 (09:31→19:33)
[2016-06-19] MEDS: DILTIAZEM HCL 90 MG TAB PO SCH ×4 (09:31→19:34)
[2016-06-19] MEDS: ALLOPURINOL 300 MG TAB PO SCH (09:32)
[2016-06-19] MEDS: MULTIVITAMIN TAB PO SCH (09:32)
[2016-06-19] MEDS: SERTRALINE HCL 100 MG TAB PO SCH (09:32)
[2016-06-19] MEDS: MONTELUKAST SODIUM 10 MG TAB PO SCH (09:32)
[2016-06-19] MEDS: FENOFIBRATE 48 MG TAB PO SCH (09:32)
[2016-06-19] MEDS: ATORVASTATIN 10 MG TAB PO SCH (09:32)
[2016-06-19] MEDS: BUMETANIDE 1 MG TAB PO SCH (09:32)
[2016-06-19] MEDS: FERROUS SULFATE 325 MG (65 MG ELEMENTAL IRON) TAB PO SCH (09:32)
[2016-06-19] MEDS: MICONAZOLE NITRATE 2% CREAM 15 GM TOP SCH ×2 (09:36→19:36)
[2016-06-19] MEDS: COLLAGENASE OINT 30 GM TUBE TOP SCH (09:36)
[2016-06-19] MEDS: ENOXAPARIN SODIUM 150 MG/ML SYRINGE SQ SCH ×2 (09:37→19:34)
[2016-06-19] MEDS: NYSTATIN 100,000 U/GM PWD 15 GM BTL TOPICAL SCH ×2 (09:37→19:35)
--- NOTE | 2016-06-19 10:03 | HHI.CCPN ---
Subjective Remarks/Hospital Course 31 year old morbidly obese (BMI 68) male with chronic respiratory failure s/p tracheostomy 4 years ago, atrial fibrillation and pulmonary embolism on Xarelto , COPD, CHF and h/o HTN. He presented from [facility] with low oxygen saturation apparently his oxygen saturation was 82% on RA. He was placed back on 6L of oxygen via his trach mask and given a breathing treatment, initially improved however he started drifting back to low 80s again. Chest x-ray showed bibasilar infiltrates and pulmonary edema. Patient was admitted to the major hospital service and was started on IV steroids IV vancomycin and Zosyn and Levaquin for healthcare associated pneumonia. After starting ACV, patient was more awake but there was a significant amount of air leak around his tracheostomy. Patient has had a Shiley 6.0 Proximal XLT, but the line pilot balloon had been cut off. 05/02 the patient became acutely hypoxemic with a large cuff leak, underwent emergency trach exchange at bedside by Dr. Macias. FiO2 65% PEEP 14 05/13 Patient is on ventilator via trach, on Fentanyl infusion however he is awake and alert. On PRVC with FIO2 40%. Afebrile. 05/14 No acute events overnight. Tmax 99.8. Patient is awake, alert on ventilator via trach still requiring increase O2. On PRVC with PEEP: 10 and FIO2 70%. 05/15 Pt acutely desaturated after he was found. Saturation down to 70% on 100 % oxygen. Bag and mask ventilation carried out, with eventual improvement on oxygen saturation to 85%. Patient was placed on PC/AC mode of ventilation, with PEEP of 15 and instructed to pressure of 30. Eventually oxygen saturation improved to 95%. Lasix him today as the chest x-ray from today shows increasing bilateral infiltrate and pulmonary edema. Sputum culture will be sent 05/16 Patient is on Fentanyl and Diprivan infusion but awake and alert. Afebrile. On PC/AC with PEEP:15, IP: 22, IT:1.3 and FIO2 50% 05/17 Patient is off Diprivan and remains on Fentanyl infusion for sedation. On PC/AC with PEEP: down 10 and FIO2 40%. Afebrile. 05/18 Patient remains on ventilator via trach on PC/AC with PEEP:12, FIO2 40%, IP:22, IT:1.0. On Fentanyl infusion 05/19 No acute events overnight. On Fentanyl infusion but awake and alert. Afebrile. 05/20 Tolerating C Pap 17/12 FIO2 40, sats 98%. RSBI in 20s, appears can be weaned further. Afebrile. Speech therapy evaluated and ok for regular diet. Starting with full liquid. 05/21 Will wean PSV to 15/10. Tolerated full liquids, will advance to regular diet per speech recs. Subjective: 05/22 On PSV 15/10 FIO2 40 with sats 92%. Smiling today. Glad to be eating regular food again. 05/23 No acute events overnight. Remains on CPAP with PS 15, PEEP:10 and FIO2 40 %. Afebrile. Off Fentanyl drip. Afebrile. Awake and alert. 05/24 Patient is on CPAP 06/06 with 40% FIO2. Afebrile. Awake and alert, on no sedation. 05/25 No acute events overnight. Patient was placed back on PC/AC overnight. Tolerated CPAP trials during day yesterday. Awake and alert. On no drips. Afebrile. 05/26 Afebrile. Tmax 98.6. Today the patient complained of nausea requiring Zofran. The patient has a lack of an appetite, with noted hypoglycemia early this a.m. blood glucose level 69. Patient tolerating CPAP well greater than 12 hours in the last 24 hours. 05/27 The patient tolerated CPAP for over 36 hours, O2 sat a knee 94% on FIO2 40 %. The patient had an increase in appetite. The patient continues on full liquid diet. 05/28 The patient declined physical therapy treatment, yesterday and also overnight declined to be moved by nursing staff. The patient refused dinner last evening, of note patient was reevaluated by speech therapy and can consume a heart healthy diet with thin liquids. The patient continues on physical therapy for strengthening exercises of all extremities specifically noted right upper extremity continues to be weak with gross fibrillations noted in hand and forearm. 05/29 Afebrile. No change in right upper extremity weakness. The patient was seen by neurology yesterday plan for MRI today if possible in hospital MRI, and EMG studies. No complaints overnight. Patient continues to refuse to have activities performed, movement in bed. The patient appears to be depressed, psychiatry consulted. 12/1: Patient alert awake on CPAP. Following commands. Psych agrees the patient is depressed. MRI brain no acute findings 05/31: Awake alert. on PS 15/8. EMG could not be completed due to patient becoming anxious. Otherwise no acute events reported overnight 06/01: Remains PS from 11/02. Right upper extremity weakness persists. EMG to be repeated on Friday. Will need MRI of the brachial plexus. Chest x-ray is unchanged 06/02: States that "not feeling well". Febrile to 101.5. White count increasing but still within the normal range. Pancultured. We'll request ID reevaluation. 06/03: Resting in bed on C Pap/pressure support via tracheostomy. One out of 2 sets of blood cultures sent on 06/02 positive for gram-positive cocci. 06/04: Resting in bed on mechanical ventilation via tracheostomy. Afebrile overnight. MRI brachial plexus (06/03) revealed a collection near the right subscapularis muscle, possibly an abscess. Discussed with ID, orthopedics Dr. Velazquez consulted. I discussed the case with Dr. Velazquez this morning who feels this is probably an abscess however would be difficult to access surgically and he plans to set up percutaneous drainage by interventional radiology. 06/05: Resting in bed on mechanical ventilation via tracheostomy. Remains afebrile. Reportedly IR cannot do percutaneous drainage of collection involving right subscapularis muscle. 06/06: Resting in bed on mechanical ventilation via tracheostomy. Can actually speak around the trach. Remains afebrile. Dr. Velazquez evaluated patient and is scheduling surgery for drainage of fluid collection involving the right subscapularis muscle. 06/07: Resting in bed on mechanical ventilation via tracheostomy. Awaiting surgery today. 06/08: Status post I&D of collection near right shoulder/subscapularis on 06/[address] Velazquez. This morning patient is awake and alert complained of some pain at the surgical site. Remains on mechanical ventilation on C Pap/pressure support. 06/09: Sleeping, arousable. On mechanical ventilation with C Pap/pressure support overnight. Labs pending 06/10 No acute events overnight. On CPAP with PS 12, PEEP: 8, FIO2 40%. Afebrile. 06/11 Patient remains on CPAP with PS 10, PEEP: 8 and FIO2 40%. Afebrile. 06/12: No acute events overnight. Remains on CPAP 10/5. No specific complaints 06/13: Tolerating C Pap 10 over 5. Awake and alert following commands. Hemoglobin dropped from 8.6-7.1, no obvious bleeding. Sodium 140-149. Will give 1 unit of PRBC with 1 mg IV Bumex 06/14 No acute events overnight. On CPAP with PS 10, PEEP:5 and FIO2 50%. Afebrile. 06/15 No acute events overnight. Remains on CPAP 10/5 with 40% FIO2. Afebrile. 06/16 Patient remains on ventilator via trach on CPAP with PS 10, PEEP:5 and FIO2 40%. 06/17: Resting in bed on mechanical ventilation via tracheostomy. Feeling nauseous. 06/18: OOB in reclining chair. Reporting low back and leg pain that is positional. Continued nausea, denies emesis. CPAP w PS 5 FIO2 40%. Will attempt Tpiece trial today. Discontinue Vanc + Zerbaxa today per ID 06/19: No acute events overnight. Afebrile. HTN to 160/80. CPAP with PS 10. PEEP 10 FIO2 45. Failed Tpiece trial yesterday- desaturated to mid 70s. Denies SOB/CP. Nausea is less than before. Bed is broken and patient would like the mattress to "rotate". Per nursing, they are working to fix it. Objective Vital Signs Date Time Temp Pulse Resp B/P Pulse Ox O2 Delivery O2 Flow Rate FiO2 06/19/16 07:28 95 45 06/19/16 06:00 86 06/19/16 04:00 98.7 22 153/70 06/16/16 15:40 T-piece 10.00 Intake and Output 06/18/16 06/18/16 06/18/16 07:59 15:59 23:59 Intake Total 1351 ml 1309 ml 528 ml Output Total 400 ml 2750 ml 450 ml Balance 951 ml -1441 ml 78 ml Result Diagram: 06/18/1682006/18/16820 Imaging Last 72 hours: CXR 06/17/16: Poor penetration. Rotated image. Unable to visualize lung bases. Possible atelectasis vs infiltrate R worse than L. Objective Remarks GEN: 31yo on ventilator via trach, awakens and follows commands. Super morbidly obese. SKIN: Warm and dry. Superficial healing scabs on R trapezius. HEAD: Normocephalic. EYES: No scleral icterus. No injection or drainage. NECK: Supple, trachea midline. Shiley 6.0 Proximal XLT, (new trach placed ) CV: No murmurs, gallops, or rubs by limited exam. RESP: On mechanical ventilation, Breath sounds equal bilaterally. Distant secondary to habitus. GI: Abdomen soft, obese, non-tender, nondistended. Multiple noted areas of ecchymotic bruising secondary to subcutaneous injections. MSK: No cyanosis, or edema. Pedal edema. Wound on lateral aspect of right lower leg above lateral malleolus , dressing C/D/I. RUE motor strength, inability to perform flexion, or pronation, hand senior care provider strength 2/5. Dressing around the right axilla/shoulder c/d/i. Neuro: Arousable. Moves all extremities with focal deficit right upper extremity as above. Date of Insertion: Jun 06, 2016 A/P Assessment and Plan ASSESSMENT Acute hypercapnic and hypoxemic respiratory failure Acute worsening of hypoxia due to lung de-recruitment 05/15/16 Healthcare associated pneumonia MDR Pseudomonas Enterococcal bacteremia Pseudomonas bacteremia Collection near right subscapularis muscle(On MRI 06/03) - abscess status post I& D on 06/07 Sepsis CHF exacerbation CO2 narcosis Tracheostomy line pilot balloon damage -status post exchange with new Shiley 6.0 Proximal XLT 05/02/16 Chronic Respiratory Failure s/p Tracheostomy 4 years ago (Shiley 6.0 Proximal XLT) Probable right brachial plexus injury COPD/obesity hypoventilation syndrome Morbid Obesity BMI 60-69 History of pulmonary embolism 4 years ago Chronic atrial fibrillation Anxiety CHF (Echo 2013 EF 40-45%; ECHO 08/2015 showing a grossly normal systolic function) Hypertension Hypothyroidism PLAN NEURO: CO2 narcosis - resolved Critical care polyneuropathy Right upper extremity weakness 05/21-possibly secondary to nerve compression, C6 , C7 (brachial plexus) Pain Anxiety Depression -EMG/ NCV could not be completed on 05/[address] Castillo -Clinically has right brachial plexus involvement. MRI of brachial plexus on 06/03 revealed collection involving right subscapularis muscle- s/p I & D on 06/[address] Velazquez. -Neurology Dr. Cheek-MRI brain C spine no acute findings. -Venous Doppler RUE 05/28-negative for DVT -Continued PT daily, with strengthening exercise (encouraged patient to participate) -Continue Seroquel 100mg HS. Continue Zoloft 100mg daily -Percocet 5/325 pain 3-6, Morphine 4 mg IV q6h pain (7-10) as needed for breakthrough pain. RESP: Acute hypercapnic and hypoxemic respiratory failure Acute lung derecruitment 05/15 with hypoxia Healthcare associated pneumonia Tracheostomy line pilot balloon damage (Shiley 6.0 Proximal XLT) s/p new trach placement 05/02 Chronic Respiratory Failure s/p Tracheostomy 4 years ago COPD/obesity hypoventilation syndrome History of pulmonary embolism 4 years ago Leukocytosis-resolved Pulmonary edema - s/p Bronchoscopy 05/11 -follow up on BAL results negative - Continue with vent support keep sat >90% on CPAP 10, 45% FIO2. Attempt TP/TC as tolerated. Unable to tolerate 06/18/16. - Pulm toilet, trach care - DuoNeb every 6 hours scheduled, q 2 prn. - Continue Pulmicort BID, Singulair 10 mg PO daily CV: CHF exacerbation Pulmonary edema Paroxysmal atrial fibrillation (chronic) Hyperlipidemia -Monitor HR and BP keep MAP>65mmHg -Cardizem 90mg QID. Bumex 1mg daily PO. -Continue Lipitor 10 g by mouth daily. Continue TriCor 40mg by mouth daily -Therapeutic Lovenox 150 mg twice a day GI: Super morbid obesity with BMI of 64 Nausea GERD -Regular diet, thin liquids per speech recs -Liver US 06/03: Fatty liver, sludge in gall bladder, splenomegaly, no mechanical obstruction of bile duct noted. -Protonix 20mg BID. Zofran prn for nausea. -Multivitamin daily FEN/RENAL: Hypokalemia - Monitor renal function , I/O, electrolytes replacement per protocol. - Bumex 1mg PO daily, KCL 40meq Q12 ID: Healthcare associated pneumonia Sepsis New fever MDRO Cellulitis right arm-resolved Leukocytosis-resolved Enterococcal faecalis bacteremia, Pseudomonas bacteremia (06/02, 06/03) Blood culture: aerobic and anaerobic bottles - enterococcus faecalis, pseudomonas aeruginosa 06/02, 06/03 Urine culture 06/02 pseudomonas aeruginosa Wound culture 06/02 pseudomonas aeruginosa Sputum culture 06/02 Pseudomonas -Sputum cx 05/15- NG -Wound cx: 05/13 Proteus, Pseudomonas, Group D Enterococcus -Bronchoscopy and re-culture 05/10- NG -Urine cx: Proteus Mirabilis 05/05 -Sputum cx: Providencia 05/05 -Wound culture Pseudomonas MDR 04/27 -Sputum culture-Pseudomonas MDR- 04/27 -Dr. Velazquez performed drainage of collection surgically on 06/07- likely hematoma -Stopped IV Vanc and Zerbaxa on 06/18. (MDR pseudomonas in blood cultures) - Continue colistin nebs until 06/27, per ID HEME: History of PE on chronic anticoagulation with Xarelto Iron deficiency anemia and anemia of critical illness. -Monitor CBC, transfused 1U PRBC 06/13 -Xarelto for PE 4 yrs ago. -Xarelto.held, On therapeutic Lovenox 150 mg twice a day -Ferrous sulfate 300 mg/q day ENDO: Hypothyroidism -On SSI (Low scale) -Continue levothyroxine 50 mcg po daily -Free T4 1.52 PROPH: -Lower extremity SCDs (L leg only, R ankle cellulitis), Lovenox 150 mg twice a day GI prophylaxis- Protonix 20mg BID LINES: - PICC line RUE- No DVT on US 05/02 - removed on 06/03. Out of bed with assistance. PT out of bed with vent. OT. SDW: Dr. Land Addendum: Patient seen and examined earlier. Discussed findings, assessment and plan with Dr. Bhardwaj. Agree with above note. Holley Baires MD R1 Jun 19, 2016 10:03 Bo Land MD Jun 19, 2016 11:11 LINES: - PICC line RUE- No DVT on US 05/02 - removed on 06/03. Out of bed with assistance. PT out of bed with vent. OT. Addendum: Patient seen and examined earlier. Discussed findings, assessment and plan with Dr. Bhardwaj. Agree with above note. Holley Baires MD R1 Jun 19, 2016 10:03
[2016-06-19] MEDS: RESP: COLISTIN 150 MG VIAL NEB SCH ×3 (11:09→23:22)
[2016-06-19] MEDS: CHLORHEXIDINE 0.12% (ORAL KIT) 15 ML CUP MT SCH ×2 (11:20→19:36)
[2016-06-19] MEDS: SODIUM CHLORIDE 0.9% FLUSH 5 ML FLUSH IVF SCH ×2 (11:21→19:34)
[2016-06-19] MEDS: ONDANSETRON HCL 4 MG/2 ML VIAL IV PUSH PRN (14:45)
[2016-06-19] MEDS: QUEtiapine FUMARATE 100 MG TAB PO SCH (19:33)
[2016-06-19] MEDS: ZOLPIDEM TARTRATE 5 MG TAB PO PRN (19:34)
[2016-06-19] MEDS: MORPHINE SULFATE 4 MG/ML INJ IV PUSH PRN (19:37)
[2016-06-20] VITALS (20 sets, daily range): BP systolic 140–151; BP diastolic 63–71; PULSE 77–95; RESP 22–25; TEMP 98–98.6; O2SAT 92–99
[2016-06-20] MEDS: INSULIN NovoLIN REGULAR SUPPLEMENTAL SCALE SQ SCH ×4 (03:00→20:32)
[2016-06-20] MEDS: LEVOTHYROXINE SODIUM 50 MCG TAB PO SCH (04:58)
[2016-06-20 05:23] LABS: HEMATOCRIT 25.8 % (39.0-51.0); MEAN CELL VOLUME 82.6 FL (80.0-100.0); MEAN CORPUSCULAR HEMOGLOBIN 25.8 PG (27.0-34.0); MEAN CORPUSCULAR HGB CONC 31.2 % (32.0-36.0); PLATELET COUNT 212 TH/MM3 (150-450); RED BLOOD COUNT 3.13 MIL/MM3 (4.50-5.90); RED CELL DISTRIBUTION WIDTH 25.3 % (11.6-17.2); WHITE BLOOD COUNT 8.1 TH/MM3 (4.0-11.0)
[2016-06-20 05:27] LABS: REVIEW FLAG FINAL
[2016-06-20 05:56] LABS: POTASSIUM 3.2 MEQ/L (3.5-5.1)
[2016-06-20] MEDS: RESP: COLISTIN 150 MG VIAL NEB SCH ×3 (07:59→23:16)
[2016-06-20] MEDS: RESP: BUDESONIDE 0.5 MG/2 ML NEB NEB SCH ×2 (08:00→20:14)
[2016-06-20] MEDS: CHLORHEXIDINE 0.12% (ORAL KIT) 15 ML CUP MT SCH ×2 (08:53→20:33)
[2016-06-20] MEDS: SERTRALINE HCL 100 MG TAB PO SCH (08:54)
[2016-06-20] MEDS: ENOXAPARIN SODIUM 150 MG/ML SYRINGE SQ SCH ×2 (08:54→23:05)
[2016-06-20] MEDS: PANTOPRAZOLE SOD 20 MG DELAYED RELEASE TAB PO SCH ×2 (08:55→20:34)
[2016-06-20] MEDS: DILTIAZEM HCL 90 MG TAB PO SCH ×4 (08:55→20:34)
[2016-06-20] MEDS: FERROUS SULFATE 325 MG (65 MG ELEMENTAL IRON) TAB PO SCH (08:55)
[2016-06-20] MEDS: MONTELUKAST SODIUM 10 MG TAB PO SCH (08:55)
[2016-06-20] MEDS: MULTIVITAMIN TAB PO SCH (08:55)
[2016-06-20] MEDS: ALLOPURINOL 300 MG TAB PO SCH (08:55)
[2016-06-20] MEDS: BUMETANIDE 1 MG TAB PO SCH (08:55)
[2016-06-20] MEDS: SODIUM CHLORIDE 0.9% FLUSH 5 ML FLUSH IVF SCH ×2 (08:55→20:34)
[2016-06-20] MEDS: ATORVASTATIN 10 MG TAB PO SCH (08:55)
[2016-06-20] MEDS: MICONAZOLE NITRATE 2% CREAM 15 GM TOP SCH ×2 (09:00→20:35)
[2016-06-20] MEDS: FENOFIBRATE 48 MG TAB PO SCH (09:00)
[2016-06-20] MEDS: MORPHINE SULFATE 4 MG/ML INJ IV PUSH PRN (13:28)
--- NOTE | 2016-06-20 14:47 | HHI.CCPN ---
Subjective Remarks/Hospital Course 31 year old morbidly obese (BMI 68) male with chronic respiratory failure s/p tracheostomy 4 years ago, atrial fibrillation and pulmonary embolism on Xarelto , COPD, CHF and h/o HTN. He presented from [facility] with low oxygen saturation apparently his oxygen saturation was 82% on RA. He was placed back on 6L of oxygen via his trach mask and given a breathing treatment, initially improved however he started drifting back to low 80s again. Chest x-ray showed bibasilar infiltrates and pulmonary edema. Patient was admitted to the [facility] and was started on IV steroids IV vancomycin and Zosyn and Levaquin for healthcare associated pneumonia. After starting ACV, patient was more awake but there was a significant amount of air leak around his tracheostomy. Patient has had a Shiley 6.0 Proximal XLT, but the ferry pilot balloon had been cut off. 05/02 the patient became acutely hypoxemic with a large cuff leak, underwent emergency trach exchange at bedside by Dr. Macias. FiO2 65% PEEP 14 05/13 Patient is on ventilator via trach, on Fentanyl infusion however he is awake and alert. On PRVC with FIO2 40%. Afebrile. 05/14 No acute events overnight. Tmax 99.8. Patient is awake, alert on ventilator via trach still requiring increase O2. On PRVC with PEEP: 10 and FIO2 70%. 05/15 Pt acutely desaturated after he was found. Saturation down to 70% on 100 % oxygen. Bag and mask ventilation carried out, with eventual improvement on oxygen saturation to 85%. Patient was placed on PC/AC mode of ventilation, with PEEP of 15 and instructed to pressure of 30. Eventually oxygen saturation improved to 95%. Lasix him today as the chest x-ray from today shows increasing bilateral infiltrate and pulmonary edema. Sputum culture will be sent 05/16 Patient is on Fentanyl and Diprivan infusion but awake and alert. Afebrile. On PC/AC with PEEP:15, IP: 22, IT:1.3 and FIO2 50% 05/17 Patient is off Diprivan and remains on Fentanyl infusion for sedation. On PC/AC with PEEP: down 10 and FIO2 40%. Afebrile. 05/18 Patient remains on ventilator via trach on PC/AC with PEEP:12, FIO2 40%, IP:22, IT:1.0. On Fentanyl infusion 05/19 No acute events overnight. On Fentanyl infusion but awake and alert. Afebrile. 05/20 Tolerating C Pap 17/12 FIO2 40, sats 98%. RSBI in 20s, appears can be weaned further. Afebrile. Speech therapy evaluated and ok for regular diet. Starting with full liquid. 05/21 Will wean PSV to 15/10. Tolerated full liquids, will advance to regular diet per speech recs. Subjective: 05/22 On PSV 15/10 FIO2 40 with sats 92%. Smiling today. Glad to be eating regular food again. 05/23 No acute events overnight. Remains on CPAP with PS 15, PEEP:10 and FIO2 40 %. Afebrile. Off Fentanyl drip. Afebrile. Awake and alert. 05/24 Patient is on CPAP 06/06 with 40% FIO2. Afebrile. Awake and alert, on no sedation. 05/25 No acute events overnight. Patient was placed back on PC/AC overnight. Tolerated CPAP trials during day yesterday. Awake and alert. On no drips. Afebrile. 05/26 Afebrile. Tmax 98.6. Today the patient complained of nausea requiring Zofran. The patient has a lack of an appetite, with noted hypoglycemia early this a.m. blood glucose level 69. Patient tolerating CPAP well greater than 12 hours in the last 24 hours. 05/27 The patient tolerated CPAP for over 36 hours, O2 sat a knee 94% on FIO2 40 %. The patient had an increase in appetite. The patient continues on full liquid diet. 05/28 The patient declined physical therapy treatment, yesterday and also overnight declined to be moved by nursing staff. The patient refused dinner last evening, of note patient was reevaluated by speech therapy and can consume a heart healthy diet with thin liquids. The patient continues on physical therapy for strengthening exercises of all extremities specifically noted right upper extremity continues to be weak with gross fibrillations noted in hand and forearm. 05/29 Afebrile. No change in right upper extremity weakness. The patient was seen by neurology yesterday plan for MRI today if possible in hospital MRI, and EMG studies. No complaints overnight. Patient continues to refuse to have activities performed, movement in bed. The patient appears to be depressed, psychiatry consulted. 12/1: Patient alert awake on CPAP. Following commands. Psych agrees the patient is depressed. MRI brain no acute findings 05/31: Awake alert. on PS 15/8. EMG could not be completed due to patient becoming anxious. Otherwise no acute events reported overnight 06/01: Remains PS from 11/02. Right upper extremity weakness persists. EMG to be repeated on Friday. Will need MRI of the brachial plexus. Chest x-ray is unchanged 06/02: States that "not feeling well". Febrile to 101.5. White count increasing but still within the normal range. Pancultured. We'll request ID reevaluation. 06/03: Resting in bed on C Pap/pressure support via tracheostomy. One out of 2 sets of blood cultures sent on 06/02 positive for gram-positive cocci. 06/04: Resting in bed on mechanical ventilation via tracheostomy. Afebrile overnight. MRI brachial plexus (06/03) revealed a collection near the right subscapularis muscle, possibly an abscess. Discussed with ID, orthopedics Dr. Velazquez consulted. I discussed the case with Dr. Velazquez this morning who feels this is probably an abscess however would be difficult to access surgically and he plans to set up percutaneous drainage by interventional radiology. 06/05: Resting in bed on mechanical ventilation via tracheostomy. Remains afebrile. Reportedly IR cannot do percutaneous drainage of collection involving right subscapularis muscle. 06/06: Resting in bed on mechanical ventilation via tracheostomy. Can actually speak around the trach. Remains afebrile. Dr. Velazquez evaluated patient and is scheduling surgery for drainage of fluid collection involving the right subscapularis muscle. 06/07: Resting in bed on mechanical ventilation via tracheostomy. Awaiting surgery today. 06/08: Status post I&D of collection near right shoulder/subscapularis on 06/[address] Velazquez. This morning patient is awake and alert complained of some pain at the surgical site. Remains on mechanical ventilation on C Pap/pressure support. 06/09: Sleeping, arousable. On mechanical ventilation with C Pap/pressure support overnight. Labs pending 06/10 No acute events overnight. On CPAP with PS 12, PEEP: 8, FIO2 40%. Afebrile. 06/11 Patient remains on CPAP with PS 10, PEEP: 8 and FIO2 40%. Afebrile. 06/12: No acute events overnight. Remains on CPAP 10/5. No specific complaints 06/13: Tolerating C Pap 10 over 5. Awake and alert following commands. Hemoglobin dropped from 8.6-7.1, no obvious bleeding. Sodium 140-149. Will give 1 unit of PRBC with 1 mg IV Bumex 06/14 No acute events overnight. On CPAP with PS 10, PEEP:5 and FIO2 50%. Afebrile. 06/15 No acute events overnight. Remains on CPAP 10/5 with 40% FIO2. Afebrile. 06/16 Patient remains on ventilator via trach on CPAP with PS 10, PEEP:5 and FIO2 40%. 06/17: Resting in bed on mechanical ventilation via tracheostomy. Feeling nauseous. 06/18: OOB in reclining chair. Reporting low back and leg pain that is positional. Continued nausea, denies emesis. CPAP w PS 5 FIO2 40%. Will attempt Tpiece trial today. Discontinue Vanc + Zerbaxa today per ID 06/19: No acute events overnight. Afebrile. HTN to 160/80. CPAP with PS 10. PEEP 10 FIO2 45. Failed Tpiece trial yesterday- desaturated to mid 70s. Denies SOB/CP. Nausea is less than before. Bed is broken and patient would like the mattress to "rotate". Per nursing, they are working to fix it. 06/20: No acute events overnight. Afebrile. HTN to 145/70. CPAP with PEEP 10 FIO2 45, with saturation 93=94%. Pt has no acute complaints. Denies SOB/CP/ Nausea. Didn't know why he threw up during PT yesterday. Denies pain. Still having diarrhea (chronic years in duration issue). Was eating Pringles in bed. Per nursing, does not eat hospital food- waits for mother to bring him food. He was counseled to eat the hospital food which is healthier for him and that he needs to stop eating food brought in by his mother. Objective Vital Signs Date Time Temp Pulse Resp B/P Pulse Ox O2 Delivery O2 Flow Rate FiO2 06/20/16 13:05 94 45 06/20/16 12:00 77 06/20/16 08:00 98.5 24 151/71 06/16/16 15:40 T-piece 10.00 Intake and Output 06/19/16 06/19/16 06/20/16 08:00 16:00 00:00 Intake Total 417 ml 475 ml 350 ml Output Total 350 ml 1400 ml 1900 ml Balance 67 ml -925 ml -1550 ml Result Diagram: 06/20/16 0437 06/20/16 0437 Imaging MRI 06/20/16: No official reading. Preliminary reading suggests periventricular white matter changes at basal ganglia and no evidence ischemia CXR 06/17/16: Poor penetration. Rotated image. Unable to visualize lung bases. Possible atelectasis vs infiltrate R worse than L. Objective Remarks GEN: 31yo on ventilator via trach, awakens and follows commands. Super morbidly obese. SKIN: Warm and dry. HEAD: Normocephalic. EYES: No scleral icterus. No injection or drainage. NECK: Supple, trachea midline. Shiley 6.0 Proximal XLT, (new trach placed ) CV: No murmurs, gallops, or rubs by limited exam. RESP: On mechanical ventilation, Breath sounds equal bilaterally. Distant secondary to habitus. GI: Abdomen soft, obese, non-tender, nondistended. Multiple noted areas of ecchymotic bruising secondary to subcutaneous injections. MSK: No cyanosis, or edema. Pedal edema. Wound on lateral aspect of right lower leg above lateral malleolus , dressing C/D/I. RUE motor strength, inability to perform flexion, or pronation, hand hand candy molder strength 2/5. Wound on RUE/shoulder healing well, ~20 viral Neuro: Arousable. Moves all extremities with focal deficit right upper extremity as above. Urinary Catheter: Yes Assessment to: Continue [place] insert reason: Prolonged Immobilization Date of Insertion: Jun 06, 2016 Vascular Central Line Catheter: No A/P Assessment and Plan ASSESSMENT Acute hypercapnic and hypoxemic respiratory failure (Shiley 6.0 Proximal XLT) CO2 narcosis (resolved) Acute worsening of hypoxia due to lung de-recruitment (05/15/16, resolved) Healthcare associated pneumonia MDR Pseudomonas Enterococcal bacteremia Pseudomonas bacteremia Collection near right subscapularis muscle(On MRI 06/03) - hematoma status post I &D on 06/07 Sepsis CHF exacerbation Tracheostomy ferry pilot balloon damage -status post exchange with new Shiley 6.0 Proximal XLT 05/02/16 Probable right brachial plexus injury COPD/obesity hypoventilation syndrome Morbid Obesity BMI 60-69 History of pulmonary embolism 4 years ago Chronic atrial fibrillation Anxiety CHF (Echo 2013 EF 40-45%; ECHO 08/2015 showing a grossly normal systolic function) Hypertension Hypothyroidism Depression PLAN NEURO: CO2 narcosis - resolved Critical care polyneuropathy Right upper extremity weakness 05/21-possibly secondary to nerve compression, C6 , C7 (brachial plexus) Pain Anxiety Depression -EMG/ NCV could not be completed on 05/[address] Castillo -Clinically has right brachial plexus involvement. MRI of brachial plexus on 06/03 revealed collection involving right subscapularis muscle- s/p I & D on 06/[address] Velazquez. -Neurology Dr. Cheek-MRI brain, C spine no acute findings. -Venous Doppler RUE 05/28-negative for DVT -Continued PT daily, with strengthening exercise (encouraged patient to participate) -Continue Seroquel 100mg HS. Continue Zoloft 100mg daily -Decreased pain reg: Tylenol 625mg pain 1-6, Percocet 10/325 pain 7-10 RESP: Acute hypercapnic and hypoxemic respiratory failure Acute lung derecruitment 05/15 with hypoxia Healthcare associated pneumonia Tracheostomy ferry pilot balloon damage (Shiley 6.0 Proximal XLT) s/p new trach placement 05/02 Chronic Respiratory Failure s/p Tracheostomy 4 years ago COPD/obesity hypoventilation syndrome History of pulmonary embolism 4 years ago Leukocytosis-resolved Pulmonary edema - s/p Bronchoscopy 05/11 -follow up on BAL results negative - Pulm toilet, trach care - Continue with vent support keep sat >90% on CPAP 10, 45% FIO2. Attempt TP/TC as tolerated. Unable to tolerate 06/18/16. - Continue DuoNeb q6h REYES + q2h PRN, Pulmicort BID, Singulair 10mg daily CV: CHF exacerbation Pulmonary edema Paroxysmal atrial fibrillation (chronic) Hyperlipidemia -Monitor HR and BP keep MAP>65mmHg -Cardizem 90mg QID, Bumex 1mg daily PO, Lipitor 10g daily, TriCor 40mg by mouth daily -Therapeutic Lovenox 150 mg twice a day GI: Super morbid obesity with BMI of 64 Nausea GERD -Regular diet, thin liquids per speech recs -Liver US 06/03: Fatty liver, sludge in gall bladder, splenomegaly, no mechanical obstruction of bile duct noted. -Protonix 20mg BID. Zofran prn for nausea. -Multivitamin daily -Bringing in food, per nurses. Not adherent to hospital diet. Consider call to family to restrict them from bringing food. FEN/RENAL: Hypokalemia - Monitor renal function , I/O, electrolytes replacement per protocol. - Bumex 1mg PO daily, KCL 40meq Q12 ID: Healthcare associated pneumonia Sepsis New fever MDRO Cellulitis right arm-resolved Leukocytosis-resolved Enterococcal faecalis bacteremia, Pseudomonas bacteremia (06/02, 06/03) -Wound culture Pseudomonas MDR 04/27 -Sputum culture-Pseudomonas MDR- 04/27 -Urine cx: Proteus Mirabilis 05/05 -Sputum cx: Providencia 05/05 -Bronchoscopy and re-culture 05/10- NG -Wound cx: Proteus, Pseudomonas, Group D Enterococcus- 05/13 -Sputum cx- NG- 05/15 -Blood culture: aerobic and anaerobic bottles - enterococcus faecalis, pseudomonas aeruginosa 06/02, 06/03 -Urine culture: pseudomonas aeruginosa- 06/02 -Wound culture: pseudomonas aeruginosa- 06/02 -Sputum culture: Pseudomonas- 06/02 -Dr. Velazquez performed drainage of collection surgically on 06/07- likely hematoma -Stopped IV Vanc and Zerbaxa on 06/18. (MDR pseudomonas in blood cultures) - Remove viral to RUE per Ortho or tomorrow (2 weeks s/p surgery) - Continue colistin nebs until 06/27, per ID HEME: History of PE on chronic anticoagulation with Xarelto Iron deficiency anemia and anemia of critical illness. -Monitor CBC, transfused 1U PRBC 06/13 -Xarelto for PE 4 yrs ago. -Xarelto.held, On therapeutic Lovenox 150 mg twice a day -Ferrous sulfate 300 mg/q day ENDO: Hypothyroidism -On SSI (Low scale) -Continue levothyroxine 50 mcg po daily -Free T4 1.52 PROPH: -Lower extremity SCDs (L leg only, R ankle cellulitis), Lovenox 150 mg twice a day GI prophylaxis- Protonix 20mg BID LINES: - PICC line RUE- No DVT on US 05/02 - removed on 06/03. Out of bed with assistance. PT out of bed with vent. OT. SDW: Dr. Land Addendum: Patient seen and examined earlier. Discussed findings, assessment and plan with Dr. Bhardwaj. Agree with above note. Holley Baires MD R1 Jun 20, 2016 14:47 Bo Land MD Jun 20, 2016 15:16
--- NOTE | 2016-06-20 15:00 | HHI.FPPN ---
Subjective Remarks No acute events overnight. AFVSS. Pt able to speak with trach in place today. He reports feeling uncomfortable sitting up in the chair. He was in the chair because he was just working with PT. He still c/o diarrhea. Otherwise, no complaints. (Joshua Moreno MD R1) Objective Vitals Vital Signs Date Time Temp Pulse Resp B/P Pulse Ox O2 Delivery O2 Flow Rate FiO2 06/20/16 13:05 94 45 06/20/16 12:00 77 06/20/16 12:00 45 06/20/16 10:00 84 06/20/16 08:00 45 06/20/16 08:00 84 06/20/16 08:00 98.5 84 24 151/71 93 06/20/16 07:55 94 45 06/20/16 06:00 85 06/20/16 04:03 94 45 06/20/16 04:00 82 06/20/16 04:00 45 06/20/16 04:00 98.0 82 23 146/70 94 06/20/16 02:00 82 06/20/16 01:00 95 45 06/20/16 00:00 45 06/20/16 00:00 84 06/20/16 00:00 98.2 85 23 140/65 93 06/19/16 22:00 87 06/19/16 20:00 98.6 78 23 151/70 97 06/19/16 20:00 83 06/19/16 20:00 45 06/19/16 19:46 96 45 06/19/16 18:00 74 06/19/16 16:00 98.9 86 20 146/70 98 06/19/16 16:00 78 06/19/16 16:00 45 I/O 06/19/16 06/19/16 06/19/16 06/20/16 06/20/16 06/20/16 07:00 15:00 23:00 07:00 15:00 23:00 Intake Total 417 ml 475 ml 350 ml 350 ml Output Total 350 ml 1400 ml 1900 ml 300 ml Balance 67 ml -925 ml -1550 ml 50 ml Intake Oral 350 ml 400 ml 350 ml 350 ml IV Total 67 ml 75 ml 0 ml 0 ml Output Urine Total 350 ml 1400 ml 1900 ml 300 ml # Bowel Movements 0 1 0 0 (Joshua Moreno MD R1) Result Diagram: 06/20/1643606/20/16436 Objective Remarks GEN: Morbidly obese male in NAD. DERM: Warm and dry. No erythema or skin breakdown appreciated. Numerous skin folds 2/2 habitus. Bandage R lateral malleolus c/d/i. Bandage RUE c/d/i - removed bandage to see viral on well healing surgical wound. HEENT: Tracheotomy site c/d/i. Poor dentition. CV: Distant heart sounds. RRR. Normal peripheral perfusion. RESP: Transmitted upper respiratory sounds. No wheezing GI: Abdomen soft, obese, non-tender. +BS. Bruises on lower abdomen. MSK: External rotation of RLE. 3/5 hub lead strength in right hand. NEURO: CN grossly normal. Peripheral motor and sensory function not tested Procedures 04/24- Started ventilation 05/02- Emergency Trach Exchange 06/03- PICC line removed 06/07- Debridement of RUE abscess (Dr. Velazquez), RUE drain placed 06/10- RUE drain removal (Joshua Moreno MD R1) Date of Insertion: Jun 06, 2016 (Joshua Moreno MD R1) A/P Assessment and Plan 31y with super morbid obesity, [id number] respiratory failure, tracheostomy seal leak, and HCAP with + urine, blood, wound, sputum cultures s/ p course of abx. Discharge Planning Days to weeks, pending weaning from mechanical ventilation. Ideally, return to rehab on baseline NC oxygen. Consider intermediate vent facility depending on status. (Joshua Moreno MD R1) Attending Attestation Patient seen and examined. Case reviewed and discussed with the resident team. Agree with plan of care as discussed with me and documented in the resident note. (Asia Conner MD) Problem List: (1) Hypokalemia Status: Acute Plan: hypokalemic to 3.2 this morning. --potassium repletion protocol. (2) Diarrhea Status: Acute Plan: Could be contributing to hypokalemia. - Continue to monitor Impression: Improved. Negative C. diff PCR. Likely secondary to food intolerance or medication side effect. Chronicity unknown. Pt states "always" had, but new ailment to team. (3) Nausea Status: Chronic Plan: Chronic. Ddx: GERD vs psychosomatic vs impaired gastric emptying vs medication side effect. - Zofran 4mg IV q6h PRN nausea - Reglan 10mg ACHS PRN nausea - Protonix 20mg BID REYES - Mg-Al liquid q6h PRN dyspepsia - Ca Carbonate Tums chews 500mg q12h (4) Bacteremia Status: Acute Plan: Infectious disease following. Finished course of abx on 06/18. - Colistin 75mg q8h NEB continue - Acetaminophen 325mg PRN fever - Trend CBC, CMP daily Impression: Pseudomonas aeruginosa and Enterococcus faecalis bacteremia secondary to PICC infection vs HCAP. Repeat BCx 06/06 negative (compared to positive 06/03 culture). However, UCx 06/06 grew +Group D Enterococcus. Pt asymptomatic for urinary symptoms. Has willard placed. Likely colonized. Serial CXR show cardiomegaly w b/l pulm edema and R pleural effusion. Abx History Zosyn 4.5gm IV q6h (04/24 - 04/29) Levaquin 750mg IV q24h (04/24-04/30) Zerbaxa 1.5 g IV q8h (04/29 - 05/07) Vancomycin IV (04/24 - 05/06) Ceftriaxone IV (05/07 - 05/25) Linezolid 600 mg PO BID (05/06 - 05/13) Zosyn 3.375 q6h (06/04- 06/05) - Vancomycin IV daily goal trough 15-20, (06/03 -- 06/18) - Zerbaxa IV q8h (06/05-- 06/18) RESOLVED CONDITIONS THIS HOSPITAL VISIT - Cellulitis of Chest Wall: completed course linezolid (05/06-05/13), per ID recs - Yeast UTI: completed course Diflucan. UCx 05/01: Dionne albicans. Repeat UCx 05/05: Proteus Mirabilis - HCAP: s/p multiple abx (5) Hematoma Status: Acute Plan: - Daily dressing changes with xeroform and primapore - Daily PT/OT, as tolerated. PT targeting RUE weakness. Initial Impression: Hematoma contributing to RUE weakness x4 weeks. S/p I&D by Dr. Velazquez (06/07/16). Small hematoma found during procedure inconsistent with 6cm x 6cm x 8cm abscess suggested by MRI brachial plexus. Ddx for RUE weakness: hematoma vs C6/C7 neuropathy. L hemispheric pathology, and seizure ruled out ( see below). Unable to tolerate EMG. Imaging: - US negative for DVT (05/28) - MRI brain (04/28) no acute intracranial process - MRI C-spine (05/29): grossly wnl - EEG (05/29): diffuse mild encephalopathy vs normal Stage 2 sleep - MRI brachial plexus (06/03): "Complex multiloculated soft tissue and cystic mass 5.5 x 6 x 7.8 cm involving subscapularis muscle along anterior R scapula - Pathology report (06/07): fragments of blood clot admixed with few minute fragments of adipose and skeletal muscle tissue (6) On mechanically assisted ventilation Status: Acute Plan: - CPAP (PS 10, PEEP 5, FiO2 40%) via trach. Advance to TC/TP, as tolerated. Weaning per CC. 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 Acute on chronic hypoxemic respiratory failure secondary to HCAP ( resolved) and tracheostomy leak (s/p exchange 05/02). Mechanical ventilation initiated 04/24. Solumedrol (05/10-06/03) (7) Paroxysmal a-fib Status: Chronic Plan: -Sinus rhyth, regular rate at this time - Cardizem/diltiazem 90mg PO qid - Xarelto 20mg PO qd, per critical care (8) Hypertension Status: Chronic Plan: - Bumetanide 1mg PO qd - Cardiazem 90mg QID - Labetalol 10mg IV PRN SBP 160+ (9) CHF (congestive heart failure) Status: Chronic Plan: Suspected HF with poor EF, though unable to confirm via ECHO (04/25) due to poor imaging. BNP elevated on admission, downtrended. - Bumex 1mg PO daily + 40 KCl BID - 1.5L fluid restriction, monitor I/Os, monitor renal function, peripheral edema (10) Stable medical conditions Status: Chronic Plan: NORMOCYTIC ANEMIA - Ferrous sulfate 325mg PO daily - Multivitamin 1 tab PO daily HYPERLIPIDEMIA -Atorvastatin 10mg daily - Tricor 48mg daily MDD: Pt reports stable mood; some anhedonia suspected. Previously, refusing meals, shower, PT - Sertraline 100 mg PO daily - Seroquel 100mg HS INSOMNIA -Zolpidem 5mg HS PRN GOUT -Allopurinol 300mg daily HYPOTHYROIDISM 08/2015- TSH low, free T4 grossly wnl (05/27/16) -Synthroid 50 mcg PO daily FUNGAL INFECTION -Nystatin powder and miconazole creme to skin folds MORBID OBESITY WITH BMI 60-69 -see above plan for mechanical ventilation PAIN - Percocet 10-325 mg PO q6h - Morphine 4mg IVP q6h (11) Nutrition, metabolism, and development symptoms Status: Acute Plan: FEN: Fluids: PO (Limited 1.5L/day) Electrolytes: +40KCl BID. Chronically hypokalemic, replete per protocol Nutrition: 2Kcal heart healthy diet. Transitioned to oral feeds (05/29). Wt: Admission: 480 lbs PPX GI ppx: Protonix 20mg BID DVT ppx: Lovenox 150mg BID Pain: Oxycodone 7.5/325 q4h PRN Bowel: Senna 1 tab HS PRN wdw: Dr. Conner (Joshua Moreno MD R1) Problem Qualifiers (1) Hypertension: Qualified Code: I10 - Essential hypertension (2) CHF (congestive heart failure): Qualified Code: I50.9 - Acute on chronic congestive heart failure, unspecified congestive heart failure type Joshua Moreno MD R1 Jun 20, 2016 14:59 Asia Conner MD Jun 21, 2016 09:18
[2016-06-20] MEDS: NYSTATIN 100,000 U/GM PWD 15 GM BTL TOPICAL SCH ×2 (15:47→20:36)
[2016-06-20] MEDS: POTASSIUM CHLORIDE 20 MEQ CONTROLLED RELEASE TAB PO SCH ×2 (15:48→23:05)
[2016-06-20] MEDS: COLLAGENASE OINT 30 GM TUBE TOP SCH (18:15)
[2016-06-20] MEDS: QUEtiapine FUMARATE 100 MG TAB PO SCH (20:34)
[2016-06-20] MEDS: oxyCODONE/ACETAMINOPHEN 10 MG/325 MG TAB PO PRN (20:34)
[2016-06-20] MEDS: ZOLPIDEM TARTRATE 5 MG TAB PO PRN (20:34)
[2016-06-21] VITALS (19 sets, daily range): BP systolic 136–151; BP diastolic 61–75; PULSE 74–93; RESP 15–40; TEMP 98.5–99.3; O2SAT 92–100
[2016-06-21] MEDS: INSULIN NovoLIN REGULAR SUPPLEMENTAL SCALE SQ SCH ×3 (03:00→18:00)
[2016-06-21] MEDS: RESP: BUDESONIDE 0.5 MG/2 ML NEB NEB SCH ×2 (07:46→19:53)
[2016-06-21] MEDS: FENOFIBRATE 48 MG TAB PO SCH (09:00)
[2016-06-21] MEDS: COLLAGENASE OINT 30 GM TUBE TOP SCH (09:00)
[2016-06-21] MEDS: RESP: COLISTIN 150 MG VIAL NEB SCH ×3 (09:07→23:46)
[2016-06-21] MEDS: SERTRALINE HCL 100 MG TAB PO SCH (10:39)
[2016-06-21] MEDS: MULTIVITAMIN TAB PO SCH (10:39)
[2016-06-21] MEDS: MONTELUKAST SODIUM 10 MG TAB PO SCH (10:39)
[2016-06-21] MEDS: LEVOTHYROXINE SODIUM 50 MCG TAB PO SCH (10:39)
[2016-06-21] MEDS: ALLOPURINOL 300 MG TAB PO SCH (10:39)
[2016-06-21] MEDS: FERROUS SULFATE 325 MG (65 MG ELEMENTAL IRON) TAB PO SCH (10:40)
[2016-06-21] MEDS: BUMETANIDE 1 MG TAB PO SCH (10:40)
[2016-06-21] MEDS: PANTOPRAZOLE SOD 20 MG DELAYED RELEASE TAB PO SCH ×2 (10:40→21:23)
[2016-06-21] MEDS: ATORVASTATIN 10 MG TAB PO SCH (10:40)
[2016-06-21] MEDS: SODIUM CHLORIDE 0.9% FLUSH 5 ML FLUSH IVF SCH ×2 (10:41→21:23)
[2016-06-21] MEDS: CHLORHEXIDINE 0.12% (ORAL KIT) 15 ML CUP MT SCH ×2 (10:41→21:22)
[2016-06-21] MEDS: DILTIAZEM HCL 90 MG TAB PO SCH ×4 (10:45→21:23)
[2016-06-21] MEDS: NYSTATIN 100,000 U/GM PWD 15 GM BTL TOPICAL SCH ×2 (10:47→21:24)
[2016-06-21] MEDS: MICONAZOLE NITRATE 2% CREAM 15 GM TOP SCH ×2 (10:47→21:00)
[2016-06-21] MEDS: POTASSIUM CHLORIDE 20 MEQ CONTROLLED RELEASE TAB PO SCH ×2 (12:12→21:23)
[2016-06-21] MEDS: oxyCODONE/ACETAMINOPHEN 10 MG/325 MG TAB PO PRN ×2 (12:12→21:28)
[2016-06-21] MEDS: ENOXAPARIN SODIUM 150 MG/ML SYRINGE SQ SCH ×2 (12:14→21:24)
--- NOTE | 2016-06-21 12:31 | HHI.FPPN ---
Subjective Remarks No acute events overnight. Afebrile vital signs stable. Patient reports that his limited mobility in his right arm is due to pain. He denies having diarrhea today. Per nurse report, he did not want to work with physical therapy today. Attending physician instructed residence to remove viral. Thus, removed 19 viral from 18 cm long incision on right shoulder. (Joshua Moreno MD R1) Objective Vitals Vital Signs Date Time Temp Pulse Resp B/P Pulse Ox O2 Delivery O2 Flow Rate FiO2 06/21/16 11:57 93 45 06/21/16 08:00 82 06/21/16 07:47 92 45 06/21/16 06:00 80 06/21/16 04:07 98 45 06/21/16 04:00 45 06/21/16 04:00 78 06/21/16 04:00 98.5 78 17 151/69 98 06/21/16 02:00 74 06/21/16 01:06 94 45 06/21/16 00:00 89 06/21/16 00:00 98.7 79 15 146/69 94 06/21/16 00:00 45 06/20/16 22:00 85 06/20/16 20:14 97 45 06/20/16 20:00 45 06/20/16 20:00 85 06/20/16 20:00 98.4 85 25 143/65 92 06/20/16 18:00 82 06/20/16 17:34 94 45 06/20/16 16:00 45 06/20/16 16:00 98.6 90 23 97 06/20/16 15:00 144/63 06/20/16 14:00 95 06/20/16 13:05 94 45 I/O 06/20/16 06/20/16 06/20/16 06/21/16 06/21/16 06/21/16 06:59 14:59 22:59 06:59 14:59 22:59 Intake Total 350 ml 1075 ml 105 ml Output Total 300 ml 1900 ml 350 ml Balance 50 ml -825 ml -245 ml Intake Oral 350 ml 1070 ml 100 ml IV Total 0 ml 5 ml 5 ml Output Urine Total 300 ml 1900 ml 350 ml # Bowel Movements 0 1 (Joshua Moreno MD R1) Result Diagram: 06/20/1643606/20/16436 Imaging Last Impressions Chest X-Ray 06/17/16 0600 Signed Impressions: Service Date/Time: Friday, June 17, 2016 04:38 - CONCLUSION: No significant change. Garcia Ramirez MD Liver Ultrasound 06/03/16 0000 Signed Impressions: Service Date/Time: Friday, June 03, 2016 08:10 - CONCLUSION: 1. There is some sludge in the gallbladder. This can be seen with chronic gallbladder disease. 2. Fatty infiltration of the liver which appears to be enlarged. 3. No mechanical biliary tract obstruction. 4. Splenomegaly. Lázaro Frankel MD Brachial Plexus MRI 06/03/16 0000 Signed Impressions: Service Date/Time: Friday, June 03, 2016 12:42 - CONCLUSION: There is a complex multiloculated soft tissue and cystic mass measuring approximately 5.5 x 6.0 x 7.8 cm involving the subscapularis muscle along the anterior right scapula. The differential considerations include neoplastic disease, infection and hematoma. Recommend a CT scan of the right shoulder to pre-plan for CT-guided aspiration/biopsy of this abnormality. Lázaro Frankel MD Cervical Spine MRI 05/29/16 0000 Signed Impressions: Service Date/Time: Sunday, May 29, 2016 13:51 - CONCLUSION: Limited study but appears normal. Vishnu Woodward MD Brain MRI 05/29/16 0000 Signed Impressions: Service Date/Time: Sunday, May 29, 2016 13:51 - CONCLUSION: 1. Focal chronic ischemic change in the high right frontal parietal convexity stable from previous CT scan. 2. No acute intracranial abnormality. 3. Minimal nonspecific white matter changes. Vishnu Woodward MD Upper Extremity Ultrasound 05/28/16 0000 Signed Impressions: Service Date/Time: Saturday, May 28, 2016 10:16 - CONCLUSION: 1. Negative for deep venous thrombosis. Venous line noted in cephalic, subclavian and internal jugular vein. Horacio Gupta MD Abdomen X-Ray 04/29/16 0000 Signed Impressions: Service Date/Time: Friday, April 29, 2016 07:12 - CONCLUSION: Suspect Dobbhoff tube in the distal stomach. Garcia Lujan MD Objective Remarks GEN: Morbidly obese male in NAD. DERM: Warm and dry. No erythema or skin breakdown appreciated. Numerous skin folds 2/2 habitus. Bandage R lateral malleolus c/d/i. Bandage RUE c/d/i - removed bandage to see viral on well healing surgical wound. HEENT: Tracheotomy site c/d/i. Poor dentition. CV: Distant heart sounds. RRR. Normal peripheral perfusion. RESP: Transmitted upper respiratory sounds. No wheezing GI: Abdomen soft, obese, non-tender. +BS. Bruises on lower abdomen. MSK: External rotation of RLE. 3/5 tube winder hand strength in right hand. removed 19 viral from 18 cm long incision on right shoulder, which is clean, dry, intact , well-healing. NEURO: CN grossly normal. Peripheral motor and sensory function not tested Procedures 04/24- Started ventilation 05/02- Emergency Trach Exchange 06/03- PICC line removed 06/07- Debridement of RUE abscess (Dr. Velazquez), RUE drain placed 06/10- RUE drain removal (Joshua Moreno MD R1) Date of Insertion: Jun 06, 2016 (Joshua Moreno MD R1) A/P Assessment and Plan 31y with super morbid obesity, [id number] respiratory failure, tracheostomy seal leak, and HCAP with + urine, blood, wound, sputum cultures s/ p course of abx. Discharge Planning Days to weeks, pending weaning from mechanical ventilation. Ideally, return to rehab on baseline NC oxygen. Consider terminal makeup operator vent facility depending on status. (Joshua Moreno MD R1) Attending Attestation Patient seen and examined. Case reviewed and discussed with the resident team. Agree with plan of care as discussed with me and documented in the resident note. (Asia Conner MD) Problem List: (1) On mechanically assisted ventilation Status: Acute Plan: - CPAP with PEEP 10 FIO2 45, with saturation 93=94%. Advance to TC/TP, as tolerated. Weaning per CC. - Pulmicort BID REYES - Duonebs q2h PRN - Singulair 10mg daily - Symbicort bid Impression: Weaning from vent appears to have hit plateau- terminal makeup operator plans for dispo? Acute on chronic hypoxemic respiratory failure secondary to HCAP ( resolved) and tracheostomy leak (s/p exchange 05/02). Mechanical ventilation initiated 04/24. Solumedrol (05/10-06/03) (2) Diarrhea Status: Resolved Plan: - Continue to monitor Impression: Improved. Negative C. diff PCR. Likely secondary to food intolerance or medication side effect. Chronicity unknown. Pt states "always" had, but new ailment to team. (3) Nausea Status: Chronic Plan: Chronic. Ddx: GERD vs psychosomatic vs impaired gastric emptying vs medication side effect. - Zofran 4mg IV q6h PRN nausea - Reglan 10mg ACHS PRN nausea - Protonix 20mg BID REYES - Mg-Al liquid q6h PRN dyspepsia - Ca Carbonate Tums chews 500mg q12h (4) Bacteremia Status: Acute Plan: Infectious disease following. Finished course of abx on 06/18. - Colistin 75mg q8h NEB continue - Acetaminophen 325mg PRN fever - Trend CBC, CMP daily Impression: Pseudomonas aeruginosa and Enterococcus faecalis bacteremia secondary to PICC infection vs HCAP. Repeat BCx 06/06 negative (compared to positive 06/03 culture). However, UCx 06/06 grew +Group D Enterococcus. Pt asymptomatic for urinary symptoms. Has willard placed. Likely colonized. Serial CXR show cardiomegaly w b/l pulm edema and R pleural effusion. Abx History Zosyn 4.5gm IV q6h (04/24 - 04/29) Levaquin 750mg IV q24h (04/24-04/30) Zerbaxa 1.5 g IV q8h (04/29 - 05/07) Vancomycin IV (04/24 - 05/06) Ceftriaxone IV (05/07 - 05/25) Linezolid 600 mg PO BID (05/06 - 05/13) Zosyn 3.375 q6h (06/04- 06/05) - Vancomycin IV daily goal trough 15-20, (06/03 -- 06/18) - Zerbaxa IV q8h (06/05-- 06/18) RESOLVED CONDITIONS THIS HOSPITAL VISIT - Cellulitis of Chest Wall: completed course linezolid (05/06-05/13), per ID recs - Yeast UTI: completed course Diflucan. UCx 05/01: Dionne albicans. Repeat UCx 05/05: Proteus Mirabilis - HCAP: s/p multiple abx (5) Hematoma Status: Acute Plan: - Daily dressing changes with xeroform and primapore - Daily PT/OT, as tolerated. PT targeting RUE weakness. Initial Impression: Hematoma contributing to RUE weakness x4 weeks. S/p I&D by Dr. Velazquez (06/07/16). Small hematoma found during procedure inconsistent with 6cm x 6cm x 8cm abscess suggested by MRI brachial plexus. Ddx for RUE weakness: hematoma vs C6/C7 neuropathy. L hemispheric pathology, and seizure ruled out ( see below). Unable to tolerate EMG. Imaging: - US negative for DVT (05/28) - MRI brain (04/28) no acute intracranial process - MRI C-spine (05/29): grossly wnl - EEG (05/29): diffuse mild encephalopathy vs normal Stage 2 sleep - MRI brachial plexus (06/03): "Complex multiloculated soft tissue and cystic mass 5.5 x 6 x 7.8 cm involving subscapularis muscle along anterior R scapula - Pathology report (06/07): fragments of blood clot admixed with few minute fragments of adipose and skeletal muscle tissue (6) Paroxysmal a-fib Status: Chronic Plan: -Sinus rhyth, regular rate at this time - Cardizem/diltiazem 90mg PO qid - Xarelto 20mg PO qd, per critical care (7) Hypertension Status: Chronic Plan: - Bumetanide 1mg PO qd - Cardiazem 90mg QID - Labetalol 10mg IV PRN SBP 160+ (8) CHF (congestive heart failure) Status: Chronic Plan: Suspected HF with poor EF, though unable to confirm via ECHO (04/25) due to poor imaging. BNP elevated on admission, downtrended. - Bumex 1mg PO daily + 40 KCl BID - 1.5L fluid restriction, monitor I/Os, monitor renal function, peripheral edema (9) Stable medical conditions Status: Chronic Plan: NORMOCYTIC ANEMIA - Ferrous sulfate 325mg PO daily - Multivitamin 1 tab PO daily HYPERLIPIDEMIA -Atorvastatin 10mg daily - Tricor 48mg daily MDD: Pt reports stable mood; some anhedonia suspected. Previously, refusing meals, shower, PT - Sertraline 100 mg PO daily - Seroquel 100mg HS INSOMNIA -Zolpidem 5mg HS PRN GOUT -Allopurinol 300mg daily HYPOTHYROIDISM 08/2015- TSH low, free T4 grossly wnl (05/27/16) -Synthroid 50 mcg PO daily FUNGAL INFECTION -Nystatin powder and miconazole creme to skin folds MORBID OBESITY WITH BMI 60-69 -see above plan for mechanical ventilation PAIN - Percocet 10-325 mg PO q6h - Morphine 4mg IVP q6h (10) Nutrition, metabolism, and development symptoms Status: Acute Plan: FEN: Fluids: PO (Limited 1.5L/day) Electrolytes: +40KCl BID. Chronically hypokalemic, replete per protocol Nutrition: 2Kcal heart healthy diet. Transitioned to oral feeds (05/29). Wt: Admission: 480 lbs PPX GI ppx: Protonix 20mg BID DVT ppx: Lovenox 150mg BID Pain: Oxycodone 7.5/325 q4h PRN Bowel: Senna 1 tab HS PRN dw: Dr. Conner (Joshua Moreno MD R1) Problem Qualifiers (1) Hypertension: Qualified Code: I10 - Essential hypertension (2) CHF (congestive heart failure): Qualified Code: I50.9 - Acute on chronic congestive heart failure, unspecified congestive heart failure type Joshua Moreno MD R1 Jun 21, 2016 12:31 Asia Conner MD Jun 21, 2016 13:46
[2016-06-21 15:21] LABS: HEMATOCRIT 27.9 % (39.0-51.0)
[2016-06-21 15:23] LABS: REVIEW FLAG FINAL
--- NOTE | 2016-06-21 16:59 | HHI.CCPN ---
Subjective Remarks/Hospital Course 31 year old morbidly obese (BMI 68) male with chronic respiratory failure s/p tracheostomy 4 years ago, atrial fibrillation and pulmonary embolism on Xarelto , COPD, CHF and h/o HTN. He presented from [facility] with low oxygen saturation apparently his oxygen saturation was 82% on RA. He was placed back on 6L of oxygen via his trach mask and given a breathing treatment, initially improved however he started drifting back to low 80s again. Chest x-ray showed bibasilar infiltrates and pulmonary edema. Patient was admitted to the [facility] service and was started on IV steroids IV vancomycin and Zosyn and Levaquin for healthcare associated pneumonia. After starting ACV, patient was more awake but there was a significant amount of air leak around his tracheostomy. Patient has had a Shiley 6.0 Proximal XLT, but the executive pilot balloon had been cut off. 05/02 the patient became acutely hypoxemic with a large cuff leak, underwent emergency trach exchange at bedside by Dr. Macias. FiO2 65% PEEP 14 05/13 Patient is on ventilator via trach, on Fentanyl infusion however he is awake and alert. On PRVC with FIO2 40%. Afebrile. 05/14 No acute events overnight. Tmax 99.8. Patient is awake, alert on ventilator via trach still requiring increase O2. On PRVC with PEEP: 10 and FIO2 70%. 05/15 Pt acutely desaturated after he was found. Saturation down to 70% on 100 % oxygen. Bag and mask ventilation carried out, with eventual improvement on oxygen saturation to 85%. Patient was placed on PC/AC mode of ventilation, with PEEP of 15 and instructed to pressure of 30. Eventually oxygen saturation improved to 95%. Lasix him today as the chest x-ray from today shows increasing bilateral infiltrate and pulmonary edema. Sputum culture will be sent 05/16 Patient is on Fentanyl and Diprivan infusion but awake and alert. Afebrile. On PC/AC with PEEP:15, IP: 22, IT:1.3 and FIO2 50% 05/17 Patient is off Diprivan and remains on Fentanyl infusion for sedation. On PC/AC with PEEP: down 10 and FIO2 40%. Afebrile. 05/18 Patient remains on ventilator via trach on PC/AC with PEEP:12, FIO2 40%, IP:22, IT:1.0. On Fentanyl infusion 05/19 No acute events overnight. On Fentanyl infusion but awake and alert. Afebrile. 05/20 Tolerating C Pap 17/12 FIO2 40, sats 98%. RSBI in 20s, appears can be weaned further. Afebrile. Speech therapy evaluated and ok for regular diet. Starting with full liquid. 05/21 Will wean PSV to 15/10. Tolerated full liquids, will advance to regular diet per speech recs. Subjective: 05/22 On PSV 15/10 FIO2 40 with sats 92%. Smiling today. Glad to be eating regular food again. 05/23 No acute events overnight. Remains on CPAP with PS 15, PEEP:10 and FIO2 40 %. Afebrile. Off Fentanyl drip. Afebrile. Awake and alert. 05/24 Patient is on CPAP 06/06 with 40% FIO2. Afebrile. Awake and alert, on no sedation. 05/25 No acute events overnight. Patient was placed back on PC/AC overnight. Tolerated CPAP trials during day yesterday. Awake and alert. On no drips. Afebrile. 05/26 Afebrile. Tmax 98.6. Today the patient complained of nausea requiring Zofran. The patient has a lack of an appetite, with noted hypoglycemia early this a.m. blood glucose level 69. Patient tolerating CPAP well greater than 12 hours in the last 24 hours. 05/27 The patient tolerated CPAP for over 36 hours, O2 sat a knee 94% on FIO2 40 %. The patient had an increase in appetite. The patient continues on full liquid diet. 05/28 The patient declined physical therapy treatment, yesterday and also overnight declined to be moved by nursing staff. The patient refused dinner last evening, of note patient was reevaluated by speech therapy and can consume a heart healthy diet with thin liquids. The patient continues on physical therapy for strengthening exercises of all extremities specifically noted right upper extremity continues to be weak with gross fibrillations noted in hand and forearm. 05/29 Afebrile. No change in right upper extremity weakness. The patient was seen by neurology yesterday plan for MRI today if possible in hospital MRI, and EMG studies. No complaints overnight. Patient continues to refuse to have activities performed, movement in bed. The patient appears to be depressed, psychiatry consulted. 12/1: Patient alert awake on CPAP. Following commands. Psych agrees the patient is depressed. MRI brain no acute findings 05/31: Awake alert. on PS 15/8. EMG could not be completed due to patient becoming anxious. Otherwise no acute events reported overnight 06/01: Remains PS from 11/02. Right upper extremity weakness persists. EMG to be repeated on Friday. Will need MRI of the brachial plexus. Chest x-ray is unchanged 06/02: States that "not feeling well". Febrile to 101.5. White count increasing but still within the normal range. Pancultured. We'll request ID reevaluation. 06/03: Resting in bed on C Pap/pressure support via tracheostomy. One out of 2 sets of blood cultures sent on 06/02 positive for gram-positive cocci. 06/04: Resting in bed on mechanical ventilation via tracheostomy. Afebrile overnight. MRI brachial plexus (06/03) revealed a collection near the right subscapularis muscle, possibly an abscess. Discussed with ID, orthopedics Dr. Velazquez consulted. I discussed the case with Dr. Velazquez this morning who feels this is probably an abscess however would be difficult to access surgically and he plans to set up percutaneous drainage by interventional radiology. 06/05: Resting in bed on mechanical ventilation via tracheostomy. Remains afebrile. Reportedly IR cannot do percutaneous drainage of collection involving right subscapularis muscle. 06/06: Resting in bed on mechanical ventilation via tracheostomy. Can actually speak around the trach. Remains afebrile. Dr. Velazquez evaluated patient and is scheduling surgery for drainage of fluid collection involving the right subscapularis muscle. 06/07: Resting in bed on mechanical ventilation via tracheostomy. Awaiting surgery today. 06/08: Status post I&D of collection near right shoulder/subscapularis on 06/[address] Velazquez. This morning patient is awake and alert complained of some pain at the surgical site. Remains on mechanical ventilation on C Pap/pressure support. 06/09: Sleeping, arousable. On mechanical ventilation with C Pap/pressure support overnight. Labs pending 06/10 No acute events overnight. On CPAP with PS 12, PEEP: 8, FIO2 40%. Afebrile. 06/11 Patient remains on CPAP with PS 10, PEEP: 8 and FIO2 40%. Afebrile. 06/12: No acute events overnight. Remains on CPAP 10/5. No specific complaints 06/13: Tolerating C Pap 10 over 5. Awake and alert following commands. Hemoglobin dropped from 8.6-7.1, no obvious bleeding. Sodium 140-149. Will give 1 unit of PRBC with 1 mg IV Bumex 06/14 No acute events overnight. On CPAP with PS 10, PEEP:5 and FIO2 50%. Afebrile. 06/15 No acute events overnight. Remains on CPAP 10/5 with 40% FIO2. Afebrile. 06/16 Patient remains on ventilator via trach on CPAP with PS 10, PEEP:5 and FIO2 40%. 06/17: Resting in bed on mechanical ventilation via tracheostomy. Feeling nauseous. 06/18: OOB in reclining chair. Reporting low back and leg pain that is positional. Continued nausea, denies emesis. CPAP w PS 5 FIO2 40%. Will attempt Tpiece trial today. Discontinue Vanc + Zerbaxa today per ID 06/19: No acute events overnight. Afebrile. HTN to 160/80. CPAP with PS 10. PEEP 10 FIO2 45. Failed Tpiece trial yesterday- desaturated to mid 70s. Denies SOB/CP. Nausea is less than before. Bed is broken and patient would like the mattress to "rotate". Per nursing, they are working to fix it. 06/20: No acute events overnight. Afebrile. HTN to 145/70. CPAP with PEEP 10 FIO2 45, with saturation 93=94%. Pt has no acute complaints. Denies SOB/CP/ Nausea. Didn't know why he threw up during PT yesterday. Denies pain. Still having diarrhea (chronic years in duration issue). Was eating Pringles in bed. Per nursing, does not eat hospital food- waits for mother to bring him food. He was counseled to eat the hospital food which is healthier for him and that he needs to stop eating food brought in by his mother. 06/21: Remains on mechanical ventilation, CPR but pressure support. Objective Vital Signs Date Time Temp Pulse Resp B/P Pulse Ox O2 Delivery O2 Flow Rate FiO2 06/21/16 15:21 99 45 06/21/16 14:00 88 06/21/16 13:12 20 06/21/16 12:00 99.3 151/73 Intake and Output 06/20/16 06/20/16 06/20/16 07:59 15:59 23:59 Intake Total 350 ml 1075 ml Output Total 300 ml 1900 ml Balance 50 ml -825 ml Result Diagram: 06/21/16 1443 06/21/16 1443 Imaging MRI 06/20/16: No official reading. Preliminary reading suggests periventricular white matter changes at basal ganglia and no evidence ischemia CXR 06/17/16: Poor penetration. Rotated image. Unable to visualize lung bases. Possible atelectasis vs infiltrate R worse than L. Objective Remarks GEN: 31yo on ventilator via trach, awakens and follows commands. Super morbidly obese. SKIN: Warm and dry. HEAD: Normocephalic. EYES: No scleral icterus. No injection or drainage. NECK: Supple, trachea midline. Shiley 6.0 Proximal XLT, (new trach placed ) CV: No murmurs, gallops, or rubs by limited exam. RESP: On mechanical ventilation, Breath sounds equal bilaterally. Distant secondary to habitus. GI: Abdomen soft, obese, non-tender, nondistended. Multiple noted areas of ecchymotic bruising secondary to subcutaneous injections. MSK: No cyanosis, or edema. Pedal edema. Wound on lateral aspect of right lower leg above lateral malleolus , dressing C/D/I. RUE motor strength, inability to perform flexion, or pronation, hand pediatric anesthesiologist strength 2/5. Wound on RUE/shoulder healing well, ~20 viral Neuro: Arousable. Moves all extremities with focal deficit right upper extremity as above. Date of Insertion: Jun 06, 2016 A/P Assessment and Plan ASSESSMENT Acute hypercapnic and hypoxemic respiratory failure (Shiley 6.0 Proximal XLT) CO2 narcosis (resolved) Acute worsening of hypoxia due to lung de-recruitment (05/15/16, resolved) Healthcare associated pneumonia MDR Pseudomonas Enterococcal bacteremia Pseudomonas bacteremia Collection near right subscapularis muscle(On MRI 06/03) - hematoma status post I &D on 06/07 Sepsis CHF exacerbation Tracheostomy executive pilot balloon damage -status post exchange with new Shiley 6.0 Proximal XLT 05/02/16 Probable right brachial plexus injury COPD/obesity hypoventilation syndrome Morbid Obesity BMI 60-69 History of pulmonary embolism 4 years ago Chronic atrial fibrillation Anxiety CHF (Echo 2013 EF 40-45%; ECHO 08/2015 showing a grossly normal systolic function) Hypertension Hypothyroidism Depression PLAN NEURO: CO2 narcosis - resolved Critical care polyneuropathy Right upper extremity weakness 05/21-possibly secondary to nerve compression, C6 , C7 (brachial plexus) Pain Anxiety Depression -EMG/ NCV could not be completed on 05/[address] Castillo -Clinically has right brachial plexus involvement. MRI of brachial plexus on 06/03 revealed collection involving right subscapularis muscle- s/p I & D on 06/[address] Velazquez. -Neurology Dr. Cheek-MRI brain, C spine no acute findings. -Venous Doppler RUE 05/28-negative for DVT -Continued PT daily, with strengthening exercise (encouraged patient to participate) -Continue Seroquel 100mg HS. Continue Zoloft 100mg daily -Decreased pain reg: Tylenol 625mg pain 1-6, Percocet 10/325 pain 7-10 RESP: Acute hypercapnic and hypoxemic respiratory failure Acute lung derecruitment 05/15 with hypoxia Healthcare associated pneumonia Tracheostomy executive pilot balloon damage (Shiley 6.0 Proximal XLT) s/p new trach placement 05/02 Chronic Respiratory Failure s/p Tracheostomy 4 years ago COPD/obesity hypoventilation syndrome History of pulmonary embolism 4 years ago Leukocytosis-resolved Pulmonary edema - s/p Bronchoscopy 05/11 -follow up on BAL results negative - Pulm toilet, trach care - Continue with vent support keep sat >90% on CPAP 10, 45% FIO2. Attempt TP/TC as tolerated. Unable to tolerate 06/18/16. - Continue DuoNeb q6h REYES + q2h PRN, Pulmicort BID, Singulair 10mg daily CV: CHF exacerbation Pulmonary edema Paroxysmal atrial fibrillation (chronic) Hyperlipidemia -Monitor HR and BP keep MAP>65mmHg -Cardizem 90mg QID, Bumex 1mg daily PO, Lipitor 10g daily, TriCor 40mg by mouth daily -Therapeutic Lovenox 150 mg twice a day GI: Super morbid obesity with BMI of 64 Nausea GERD -Regular diet, thin liquids per speech recs -Liver US 06/03: Fatty liver, sludge in gall bladder, splenomegaly, no mechanical obstruction of bile duct noted. -Protonix 20mg BID. Zofran prn for nausea. -Multivitamin daily -Bringing in food, per nurses. Not adherent to hospital diet. Consider call to family to restrict them from bringing food. FEN/RENAL: Hypokalemia - Monitor renal function , I/O, electrolytes replacement per protocol. - Bumex 1mg PO daily, KCL 40meq Q12 ID: Healthcare associated pneumonia Sepsis New fever MDRO Cellulitis right arm-resolved Leukocytosis-resolved Enterococcal faecalis bacteremia, Pseudomonas bacteremia (06/02, 06/03) -Wound culture Pseudomonas MDR 04/27 -Sputum culture-Pseudomonas MDR- 04/27 -Urine cx: Proteus Mirabilis 05/05 -Sputum cx: Providencia 05/05 -Bronchoscopy and re-culture 05/10- NG -Wound cx: Proteus, Pseudomonas, Group D Enterococcus- 05/13 -Sputum cx- NG- 05/15 -Blood culture: aerobic and anaerobic bottles - enterococcus faecalis, pseudomonas aeruginosa 06/02, 06/03 -Urine culture: pseudomonas aeruginosa- 06/02 -Wound culture: pseudomonas aeruginosa- 06/02 -Sputum culture: Pseudomonas- 06/02 -Dr. Velazquez performed drainage of collection surgically on 06/07- likely hematoma -Stopped IV Vanc and Zerbaxa on 06/18. (MDR pseudomonas in blood cultures) - Remove viral to RUE per Ortho or tomorrow (2 weeks s/p surgery) - Continue colistin nebs until 06/27, per ID HEME: History of PE on chronic anticoagulation with Xarelto Iron deficiency anemia and anemia of critical illness. -Monitor CBC, transfused 1U PRBC 06/13 -Xarelto for PE 4 yrs ago. -Xarelto.held, On therapeutic Lovenox 150 mg twice a day -Ferrous sulfate 300 mg/q day ENDO: Hypothyroidism -On SSI (Low scale) -Continue levothyroxine 50 mcg po daily -Free T4 1.52 PROPH: -Lower extremity SCDs (L leg only, R ankle cellulitis), Lovenox 150 mg twice a day GI prophylaxis- Protonix 20mg BID LINES: - PICC line RUE- No DVT on US 05/02 - removed on 06/03. Out of bed with assistance. PT out of bed with vent. Bo Chou MD Jun 21, 2016 16:58
[2016-06-21] MEDS: QUEtiapine FUMARATE 100 MG TAB PO SCH (21:00)
[2016-06-21] MEDS: ZOLPIDEM TARTRATE 5 MG TAB PO PRN (21:27)
[2016-06-22] VITALS (19 sets, daily range): BP systolic 132–162; BP diastolic 60–74; PULSE 87–96; RESP 19–26; TEMP 98.7–99.6; O2SAT 93–100
[2016-06-22] MEDS: INSULIN NovoLIN REGULAR SUPPLEMENTAL SCALE SQ SCH ×5 (06:00→23:19)
[2016-06-22] MEDS: LEVOTHYROXINE SODIUM 50 MCG TAB PO SCH (06:32)
[2016-06-22] MEDS: RESP: COLISTIN 150 MG VIAL NEB SCH ×3 (07:49→22:48)
[2016-06-22] MEDS: RESP: BUDESONIDE 0.5 MG/2 ML NEB NEB SCH ×2 (07:49→19:34)
[2016-06-22] MEDS: DILTIAZEM HCL 90 MG TAB PO SCH ×4 (08:55→21:07)
[2016-06-22] MEDS: SERTRALINE HCL 100 MG TAB PO SCH (08:55)
[2016-06-22] MEDS: MONTELUKAST SODIUM 10 MG TAB PO SCH (08:55)
[2016-06-22] MEDS: FERROUS SULFATE 325 MG (65 MG ELEMENTAL IRON) TAB PO SCH (08:55)
[2016-06-22] MEDS: BUMETANIDE 1 MG TAB PO SCH (08:55)
[2016-06-22] MEDS: PANTOPRAZOLE SOD 20 MG DELAYED RELEASE TAB PO SCH ×2 (08:55→21:07)
[2016-06-22] MEDS: ATORVASTATIN 10 MG TAB PO SCH (08:55)
[2016-06-22] MEDS: MULTIVITAMIN TAB PO SCH (08:55)
[2016-06-22] MEDS: ALLOPURINOL 300 MG TAB PO SCH (08:55)
[2016-06-22] MEDS: FENOFIBRATE 48 MG TAB PO SCH (08:55)
[2016-06-22] MEDS: SODIUM CHLORIDE 0.9% FLUSH 5 ML FLUSH IVF SCH ×2 (08:56→21:09)
[2016-06-22] MEDS: NYSTATIN 100,000 U/GM PWD 15 GM BTL TOPICAL SCH ×2 (08:58→21:07)
[2016-06-22] MEDS: COLLAGENASE OINT 30 GM TUBE TOP SCH (09:00)
[2016-06-22] MEDS: MICONAZOLE NITRATE 2% CREAM 15 GM TOP SCH ×2 (09:00→21:40)
[2016-06-22] MEDS: ENOXAPARIN SODIUM 150 MG/ML SYRINGE SQ SCH ×2 (10:23→21:41)
[2016-06-22] MEDS: POTASSIUM CHLORIDE 20 MEQ CONTROLLED RELEASE TAB PO SCH ×2 (10:23→23:19)
--- NOTE | 2016-06-22 11:45 | HHI.CCPN ---
Subjective Remarks/Hospital Course 31 year old morbidly obese (BMI 68) male with chronic respiratory failure s/p tracheostomy 4 years ago, atrial fibrillation and pulmonary embolism on Xarelto , COPD, CHF and h/o HTN. He presented from [facility] with low oxygen saturation apparently his oxygen saturation was 82% on RA. He was placed back on 6L of oxygen via his trach mask and given a breathing treatment, initially improved however he started drifting back to low 80s again. Chest x-ray showed bibasilar infiltrates and pulmonary edema. Patient was admitted to the [facility] and was started on IV steroids IV vancomycin and Zosyn and Levaquin for healthcare associated pneumonia. After starting ACV, patient was more awake but there was a significant amount of air leak around his tracheostomy. Patient has had a Shiley 6.0 Proximal XLT, but the ship pilot balloon had been cut off. 05/02 the patient became acutely hypoxemic with a large cuff leak, underwent emergency trach exchange at bedside by Dr. Macias. FiO2 65% PEEP 14 05/13 Patient is on ventilator via trach, on Fentanyl infusion however he is awake and alert. On PRVC with FIO2 40%. Afebrile. 05/14 No acute events overnight. Tmax 99.8. Patient is awake, alert on ventilator via trach still requiring increase O2. On PRVC with PEEP: 10 and FIO2 70%. 05/15 Pt acutely desaturated after he was found. Saturation down to 70% on 100 % oxygen. Bag and mask ventilation carried out, with eventual improvement on oxygen saturation to 85%. Patient was placed on PC/AC mode of ventilation, with PEEP of 15 and instructed to pressure of 30. Eventually oxygen saturation improved to 95%. Lasix him today as the chest x-ray from today shows increasing bilateral infiltrate and pulmonary edema. Sputum culture will be sent 05/16 Patient is on Fentanyl and Diprivan infusion but awake and alert. Afebrile. On PC/AC with PEEP:15, IP: 22, IT:1.3 and FIO2 50% 05/17 Patient is off Diprivan and remains on Fentanyl infusion for sedation. On PC/AC with PEEP: down 10 and FIO2 40%. Afebrile. 05/18 Patient remains on ventilator via trach on PC/AC with PEEP:12, FIO2 40%, IP:22, IT:1.0. On Fentanyl infusion 05/19 No acute events overnight. On Fentanyl infusion but awake and alert. Afebrile. 05/20 Tolerating C Pap 17/12 FIO2 40, sats 98%. RSBI in 20s, appears can be weaned further. Afebrile. Speech therapy evaluated and ok for regular diet. Starting with full liquid. 05/21 Will wean PSV to 15/10. Tolerated full liquids, will advance to regular diet per speech recs. Subjective: 05/22 On PSV 15/10 FIO2 40 with sats 92%. Smiling today. Glad to be eating regular food again. 05/23 No acute events overnight. Remains on CPAP with PS 15, PEEP:10 and FIO2 40 %. Afebrile. Off Fentanyl drip. Afebrile. Awake and alert. 05/24 Patient is on CPAP 06/06 with 40% FIO2. Afebrile. Awake and alert, on no sedation. 05/25 No acute events overnight. Patient was placed back on PC/AC overnight. Tolerated CPAP trials during day yesterday. Awake and alert. On no drips. Afebrile. 05/26 Afebrile. Tmax 98.6. Today the patient complained of nausea requiring Zofran. The patient has a lack of an appetite, with noted hypoglycemia early this a.m. blood glucose level 69. Patient tolerating CPAP well greater than 12 hours in the last 24 hours. 05/27 The patient tolerated CPAP for over 36 hours, O2 sat a knee 94% on FIO2 40 %. The patient had an increase in appetite. The patient continues on full liquid diet. 05/28 The patient declined physical therapy treatment, yesterday and also overnight declined to be moved by nursing staff. The patient refused dinner last evening, of note patient was reevaluated by speech therapy and can consume a heart healthy diet with thin liquids. The patient continues on physical therapy for strengthening exercises of all extremities specifically noted right upper extremity continues to be weak with gross fibrillations noted in hand and forearm. 05/29 Afebrile. No change in right upper extremity weakness. The patient was seen by neurology yesterday plan for MRI today if possible in hospital MRI, and EMG studies. No complaints overnight. Patient continues to refuse to have activities performed, movement in bed. The patient appears to be depressed, psychiatry consulted. 12/1: Patient alert awake on CPAP. Following commands. Psych agrees the patient is depressed. MRI brain no acute findings 05/31: Awake alert. on PS 15/8. EMG could not be completed due to patient becoming anxious. Otherwise no acute events reported overnight 06/01: Remains PS from 11/02. Right upper extremity weakness persists. EMG to be repeated on Friday. Will need MRI of the brachial plexus. Chest x-ray is unchanged 06/02: States that "not feeling well". Febrile to 101.5. White count increasing but still within the normal range. Pancultured. We'll request ID reevaluation. 06/03: Resting in bed on C Pap/pressure support via tracheostomy. One out of 2 sets of blood cultures sent on 06/02 positive for gram-positive cocci. 06/04: Resting in bed on mechanical ventilation via tracheostomy. Afebrile overnight. MRI brachial plexus (06/03) revealed a collection near the right subscapularis muscle, possibly an abscess. Discussed with ID, orthopedics Dr. Velazquez consulted. I discussed the case with Dr. Velazquez this morning who feels this is probably an abscess however would be difficult to access surgically and he plans to set up percutaneous drainage by interventional radiology. 06/05: Resting in bed on mechanical ventilation via tracheostomy. Remains afebrile. Reportedly IR cannot do percutaneous drainage of collection involving right subscapularis muscle. 06/06: Resting in bed on mechanical ventilation via tracheostomy. Can actually speak around the trach. Remains afebrile. Dr. Velazquez evaluated patient and is scheduling surgery for drainage of fluid collection involving the right subscapularis muscle. 06/07: Resting in bed on mechanical ventilation via tracheostomy. Awaiting surgery today. 06/08: Status post I&D of collection near right shoulder/subscapularis on 06/[address] Velazquez. This morning patient is awake and alert complained of some pain at the surgical site. Remains on mechanical ventilation on C Pap/pressure support. 06/09: Sleeping, arousable. On mechanical ventilation with C Pap/pressure support overnight. Labs pending 06/10 No acute events overnight. On CPAP with PS 12, PEEP: 8, FIO2 40%. Afebrile. 06/11 Patient remains on CPAP with PS 10, PEEP: 8 and FIO2 40%. Afebrile. 06/12: No acute events overnight. Remains on CPAP 10/5. No specific complaints 06/13: Tolerating C Pap 10 over 5. Awake and alert following commands. Hemoglobin dropped from 8.6-7.1, no obvious bleeding. Sodium 140-149. Will give 1 unit of PRBC with 1 mg IV Bumex 06/14 No acute events overnight. On CPAP with PS 10, PEEP:5 and FIO2 50%. Afebrile. 06/15 No acute events overnight. Remains on CPAP 10/5 with 40% FIO2. Afebrile. 06/16 Patient remains on ventilator via trach on CPAP with PS 10, PEEP:5 and FIO2 40%. 06/17: Resting in bed on mechanical ventilation via tracheostomy. Feeling nauseous. 06/18: OOB in reclining chair. Reporting low back and leg pain that is positional. Continued nausea, denies emesis. CPAP w PS 5 FIO2 40%. Will attempt Tpiece trial today. Discontinue Vanc + Zerbaxa today per ID 06/19: No acute events overnight. Afebrile. HTN to 160/80. CPAP with PS 10. PEEP 10 FIO2 45. Failed Tpiece trial yesterday- desaturated to mid 70s. Denies SOB/CP. Nausea is less than before. Bed is broken and patient would like the mattress to "rotate". Per nursing, they are working to fix it. 06/20: No acute events overnight. Afebrile. HTN to 145/70. CPAP with PEEP 10 FIO2 45, with saturation 93=94%. Pt has no acute complaints. Denies SOB/CP/ Nausea. Didn't know why he threw up during PT yesterday. Denies pain. Still having diarrhea (chronic years in duration issue). Was eating Pringles in bed. Per nursing, does not eat hospital food- waits for mother to bring him food. He was counseled to eat the hospital food which is healthier for him and that he needs to stop eating food brought in by his mother. 06/21: Remains on mechanical ventilation, CPAP with pressure support. 06/22: On mechanical ventilation on C Pap with pressure support. Denies any nausea or abdominal pain. Appears comfortable. Objective Vital Signs Date Time Temp Pulse Resp B/P Pulse Ox O2 Delivery O2 Flow Rate FiO2 12/24/16 07:47 95 Ventilator 45 06/22/16 06:00 92 06/22/16 04:00 99.4 20 141/63 Intake and Output 06/21/16 06/21/16 06/21/16 07:59 15:59 23:59 Intake Total 105 ml 480 ml 703 ml Output Total 350 ml 1850 ml Balance -245 ml 480 ml -1147 ml Result Diagram: 06/21/16 1443 06/21/16 1443 Imaging MRI 06/20/16: No official reading. Preliminary reading suggests periventricular white matter changes at basal ganglia and no evidence ischemia CXR 06/17/16: Poor penetration. Rotated image. Unable to visualize lung bases. Possible atelectasis vs infiltrate R worse than L. Objective Remarks GEN: 31yo on ventilator via trach, awakens and follows commands. Super morbidly obese. SKIN: Warm and dry. HEAD: Normocephalic. EYES: No scleral icterus. No injection or drainage. NECK: Supple, trachea midline. Shiley 6.0 Proximal XLT, (new trach placed ) CV: No murmurs, gallops, or rubs by limited exam. RESP: On mechanical ventilation, Breath sounds equal bilaterally. Distant secondary to habitus. GI: Abdomen soft, obese, non-tender, nondistended. Multiple noted areas of ecchymotic bruising secondary to subcutaneous injections. MSK: No cyanosis, or edema. Pedal edema. Wound on lateral aspect of right lower leg above lateral malleolus , dressing C/D/I. RUE motor strength, inability to perform flexion, or pronation, hand manufacturer's service representative strength 2/5. Wound on RUE/shoulder healing well, ~20 viral Neuro: Arousable. Moves all extremities with focal deficit right upper extremity as above. Date of Insertion: Jun 06, 2016 A/P Assessment and Plan ASSESSMENT Acute hypercapnic and hypoxemic respiratory failure (Shiley 6.0 Proximal XLT) CO2 narcosis (resolved) Acute worsening of hypoxia due to lung de-recruitment (05/15/16, resolved) Healthcare associated pneumonia MDR Pseudomonas Enterococcal bacteremia Pseudomonas bacteremia Collection near right subscapularis muscle(On MRI 06/03) - hematoma status post I &D on 06/07 Sepsis CHF exacerbation Tracheostomy ship pilot balloon damage -status post exchange with new Shiley 6.0 Proximal XLT 05/02/16 Probable right brachial plexus injury COPD/obesity hypoventilation syndrome Morbid Obesity BMI 60-69 History of pulmonary embolism 4 years ago Chronic atrial fibrillation Anxiety CHF (Echo 2013 EF 40-45%; ECHO 08/2015 showing a grossly normal systolic function) Hypertension Hypothyroidism Depression PLAN NEURO: CO2 narcosis - resolved Critical care polyneuropathy Right upper extremity weakness 05/21-possibly secondary to nerve compression, C6 , C7 (brachial plexus) Pain Anxiety Depression -EMG/ NCV could not be completed on 05/[address] Castillo -Clinically has right brachial plexus involvement. MRI of brachial plexus on 06/03 revealed collection involving right subscapularis muscle- s/p I & D on 06/[address] Velazquez. -Neurology Dr. Cheek-MRI brain, C spine no acute findings. -Venous Doppler RUE 05/28-negative for DVT -Continued PT daily, with strengthening exercise (encouraged patient to participate) -Continue Seroquel 100mg HS. Continue Zoloft 100mg daily -Decreased pain reg: Tylenol 625mg pain 1-6, Percocet 10/325 pain 7-10 RESP: Acute hypercapnic and hypoxemic respiratory failure Acute lung derecruitment 05/15 with hypoxia Healthcare associated pneumonia Tracheostomy ship pilot balloon damage (Shiley 6.0 Proximal XLT) s/p new trach placement 05/02 Chronic Respiratory Failure s/p Tracheostomy 4 years ago COPD/obesity hypoventilation syndrome History of pulmonary embolism 4 years ago Leukocytosis-resolved Pulmonary edema - s/p Bronchoscopy 05/11 -follow up on BAL results negative - Pulm toilet, trach care - Continue with vent support keep sat >90% on CPAP 10, 45% FIO2. Attempt TP/TC as tolerated. Unable to tolerate 06/18/16. - Continue DuoNeb q6h REYES + q2h PRN, Pulmicort BID, Singulair 10mg daily CV: CHF exacerbation Pulmonary edema Paroxysmal atrial fibrillation (chronic) Hyperlipidemia -Monitor HR and BP keep MAP>65mmHg -Cardizem 90mg QID, Bumex 1mg daily PO, Lipitor 10g daily, TriCor 40mg by mouth daily -Therapeutic Lovenox 150 mg twice a day GI: Super morbid obesity with BMI of 64 Nausea GERD -Regular diet, thin liquids per speech recs -Liver US 06/03: Fatty liver, sludge in gall bladder, splenomegaly, no mechanical obstruction of bile duct noted. -Protonix 20mg BID. Zofran prn for nausea. -Multivitamin daily -Bringing in food, per nurses. Not adherent to hospital diet. Consider call to family to restrict them from bringing food. FEN/RENAL: Hypokalemia - Monitor renal function , I/O, electrolytes replacement per protocol. - Bumex 1mg PO daily, KCL 40meq Q12 ID: Healthcare associated pneumonia Sepsis New fever MDRO Cellulitis right arm-resolved Leukocytosis-resolved Enterococcal faecalis bacteremia, Pseudomonas bacteremia (06/02, 06/03) -Wound culture Pseudomonas MDR 04/27 -Sputum culture-Pseudomonas MDR- 04/27 -Urine cx: Proteus Mirabilis 05/05 -Sputum cx: Providencia 05/05 -Bronchoscopy and re-culture 05/10- NG -Wound cx: Proteus, Pseudomonas, Group D Enterococcus- 05/13 -Sputum cx- NG- 05/15 -Blood culture: aerobic and anaerobic bottles - enterococcus faecalis, pseudomonas aeruginosa 06/02, 06/03 -Urine culture: pseudomonas aeruginosa- 06/02 -Wound culture: pseudomonas aeruginosa- 06/02 -Sputum culture: Pseudomonas- 06/02 -Dr. Velazquez performed drainage of collection surgically on 06/07- likely hematoma -Stopped IV Vanc and Zerbaxa on 06/18. (MDR pseudomonas in blood cultures) - Remove viral to RUE per Ortho or tomorrow (2 weeks s/p surgery) - Continue colistin nebs until 06/27, per ID HEME: History of PE on chronic anticoagulation with Xarelto Iron deficiency anemia and anemia of critical illness. -Monitor CBC, transfused 1U PRBC 06/13 -Xarelto for PE 4 yrs ago. -Xarelto.held, On therapeutic Lovenox 150 mg twice a day -Ferrous sulfate 300 mg/q day ENDO: Hypothyroidism -On SSI (Low scale) -Continue levothyroxine 50 mcg po daily -Free T4 1.52 PROPH: -Lower extremity SCDs (L leg only, R ankle cellulitis), Lovenox 150 mg twice a day GI prophylaxis- Protonix 20mg BID LINES: - PICC line RUE- No DVT on US 05/02 - removed on 06/03. Out of bed with assistance. PT out of bed with vent. Bo Chou MD Jun 22, 2016 11:45
--- NOTE | 2016-06-22 11:58 | HHI.FPPN ---
Subjective Remarks Acute events overnight. Afebrile vital signs stable with pulse in the 90s, blood pressure 130s to 140s, pulse ox 93-97% on 45% FiO2. Per nurse report, patient did not sleep well last night and is complaining of feeling tired today. She also reported that patient refused PT yesterday, and that his mother has been sneaking him on healthy foods. Discussed this with patient today, and encouraged him to refuse his mother's offers of unhealthy food. Also, encouraged him to participate with physical therapy. He denied any chest pain, shortness of breath, any other pain in his body, feeling depressed. (Joshua Moreno MD R1) Objective Vitals Vital Signs Date Time Temp Pulse Resp B/P Pulse Ox O2 Delivery O2 Flow Rate FiO2 06/22/16 11:46 94 45 06/22/16 07:47 95 Ventilator 45 06/22/16 07:45 94 45 06/22/16 06:00 92 06/22/16 04:09 97 45 06/22/16 04:00 45 06/22/16 04:00 99.4 90 20 141/63 94 06/22/16 04:00 90 06/22/16 02:00 91 06/22/16 00:00 90 06/22/16 00:00 45 06/22/16 00:00 98.8 90 19 132/60 93 06/21/16 22:07 96 45 06/21/16 22:00 83 06/21/16 20:00 45 06/21/16 20:00 74 06/21/16 20:00 99.1 90 23 136/61 99 06/21/16 19:53 98 45 06/21/16 18:00 88 06/21/16 16:00 45 06/21/16 16:00 88 06/21/16 16:00 99.0 93 23 147/75 100 06/21/16 15:21 99 45 06/21/16 14:00 88 06/21/16 13:12 20 06/21/16 12:00 82 06/21/16 12:00 99.3 82 26 151/73 99 06/21/16 12:00 45 06/21/16 11:57 93 45 I/O 06/21/16 06/21/16 06/21/16 06/22/16 06/22/1606/22/16 07:00 15:00 23:00 07:00 15:00 23:00 Intake Total 105 ml 480 ml 703 ml 350 ml Output Total 350 ml 1850 ml 850 ml Balance -245 ml 480 ml -1147 ml -500 ml Intake Oral 100 ml 480 ml 700 ml 350 ml IV Total 5 ml 0 ml 3 ml 0 ml Output Urine Total 350 ml 1850 ml 850 ml # Bowel Movements 1 1 0 (Joshua Moreno MD R1) Result Diagram: 06/21/16 1443 06/21/16 1443 Imaging Last Impressions Chest X-Ray 06/17/16 0600 Signed Impressions: Service Date/Time: Friday, June 17, 2016 04:38 - CONCLUSION: No significant change. Garcia Ramirez MD Liver Ultrasound 06/03/16 0000 Signed Impressions: Service Date/Time: Friday, June 03, 2016 08:10 - CONCLUSION: 1. There is some sludge in the gallbladder. This can be seen with chronic gallbladder disease. 2. Fatty infiltration of the liver which appears to be enlarged. 3. No mechanical biliary tract obstruction. 4. Splenomegaly. Lázaro Frankel MD Brachial Plexus MRI 06/03/16 0000 Signed Impressions: Service Date/Time: Friday, June 03, 2016 12:42 - CONCLUSION: There is a complex multiloculated soft tissue and cystic mass measuring approximately 5.5 x 6.0 x 7.8 cm involving the subscapularis muscle along the anterior right scapula. The differential considerations include neoplastic disease, infection and hematoma. Recommend a CT scan of the right shoulder to pre-plan for CT-guided aspiration/biopsy of this abnormality. Lázaro Frankel MD Cervical Spine MRI 05/29/16 0000 Signed Impressions: Service Date/Time: Sunday, May 29, 2016 13:51 - CONCLUSION: Limited study but appears normal. Vishnu Woodward MD Brain MRI 05/29/16 0000 Signed Impressions: Service Date/Time: Sunday, May 29, 2016 13:51 - CONCLUSION: 1. Focal chronic ischemic change in the high right frontal parietal convexity stable from previous CT scan. 2. No acute intracranial abnormality. 3. Minimal nonspecific white matter changes. Vishnu Woodward MD Upper Extremity Ultrasound 05/28/16 0000 Signed Impressions: Service Date/Time: Saturday, May 28, 2016 10:16 - CONCLUSION: 1. Negative for deep venous thrombosis. Venous line noted in cephalic, subclavian and internal jugular vein. Horacio Gupta MD Abdomen X-Ray 04/29/16 0000 Signed Impressions: Service Date/Time: Friday, April 29, 2016 07:12 - CONCLUSION: Suspect Dobbhoff tube in the distal stomach. Garcia Lujan MD Objective Remarks GEN: Morbidly obese male in NAD. DERM: Warm and dry. No erythema or skin breakdown appreciated. Numerous skin folds 2/2 habitus. Bandaged R lateral malleolus c/d/i. Bandaged RUE c/d/i well healing surgical wound. HEENT: Tracheotomy site c/d/i. Poor dentition. CV: Distant heart sounds. RRR. Normal peripheral perfusion. RESP: Transmitted upper respiratory sounds. + Inspiratory wheezing GI: Abdomen soft, obese, non-tender. +BS. Bruises on lower abdomen. MSK: External rotation of RLE. 3/5 placement specialist strength in right hand. NEURO: CN grossly normal. Patient can wiggle the fingers of his right hand and reports pain in his right hand and forearm, and he has good sensation in his right hand. Procedures 04/24- Started ventilation 05/02- Emergency Trach Exchange 06/03- PICC line removed 06/07- Debridement of RUE abscess (Dr. Velazquez), RUE drain placed 06/10- RUE drain removal (Joshua Moreno MD R1) Date of Insertion: Jun 06, 2016 (Joshua Moreno MD R1) A/P Assessment and Plan 31y with super morbid obesity, [id number] respiratory failure, tracheostomy seal leak, and HCAP with + urine, blood, wound, sputum cultures s/ p course of abx. Discharge Planning Days to weeks, pending weaning from mechanical ventilation. Ideally, return to rehab on baseline [place] oxygen. Consider long term care phlebotomist vent facility depending on status. (Joshua Moreno MD R1) Attending Attestation Case reviewed and discussed with the resident team. Agree with plan of care as discussed with me and documented in the resident note. (Asia Conner MD) Problem List: (1) On mechanically assisted ventilation Status: Acute Plan: - CPAP with PEEP 5, oxygen at 2 L/m at FiO2 of 45, with O2 saturation 93-97%. Advance to TC/TP, as tolerated. Weaning per CC. - Pulmicort BID REYES - Duonebs q2h PRN - Singulair 10mg daily - Symbicort bid Impression: Weaning from vent appears to have hit plateau- assisted plans for dispo? Acute on chronic hypoxemic respiratory failure secondary to HCAP ( resolved) and tracheostomy leak (s/p exchange 05/02). Mechanical ventilation initiated 04/24. Solumedrol (05/10-06/03) (2) Diarrhea Status: Resolved Plan: - Continue to monitor Impression: Improved. Negative C. diff PCR. Likely secondary to food intolerance or medication side effect. Chronicity unknown. Pt states "always" had, but new ailment to team. (3) Nausea Status: Chronic Plan: Chronic. Ddx: GERD vs psychosomatic vs impaired gastric emptying vs medication side effect. - Zofran 4mg IV q6h PRN nausea - Reglan 10mg ACHS PRN nausea - Protonix 20mg BID REYES - Mg-Al liquid q6h PRN dyspepsia - Ca Carbonate Tums chews 500mg q12h (4) Bacteremia Status: Acute Plan: Infectious disease following. Finished course of abx on 06/18. - Colistin 75mg q8h NEB continue - Acetaminophen 325mg PRN fever - Trend CBC, CMP daily Impression: Pseudomonas aeruginosa and Enterococcus faecalis bacteremia secondary to PICC infection vs HCAP. Repeat BCx 06/06 negative (compared to positive 06/03 culture). However, UCx 06/06 grew +Group D Enterococcus. Pt asymptomatic for urinary symptoms. Has willard placed. Likely colonized. Serial CXR show cardiomegaly w b/l pulm edema and R pleural effusion. Abx History Zosyn 4.5gm IV q6h (04/24 - 04/29) Levaquin 750mg IV q24h (04/24-04/30) Zerbaxa 1.5 g IV q8h (04/29 - 05/07) Vancomycin IV (04/24 - 05/06) Ceftriaxone IV (05/07 - 05/25) Linezolid 600 mg PO BID (05/06 - 05/13) Zosyn 3.375 q6h (06/04- 06/05) - Vancomycin IV daily goal trough 15-20, (06/03 -- 06/18) - Zerbaxa IV q8h (06/05-- 06/18) RESOLVED CONDITIONS THIS HOSPITAL VISIT - Cellulitis of Chest Wall: completed course linezolid (05/06-05/13), per ID recs - Yeast UTI: completed course Diflucan. UCx 05/01: Dionne albicans. Repeat UCx 05/05: Proteus Mirabilis - HCAP: s/p multiple abx (5) Hematoma Status: Acute Plan: - Daily dressing changes with xeroform and primapore - Daily PT/OT, as tolerated. PT targeting RUE weakness. Initial Impression: Hematoma contributing to RUE weakness x4 weeks. S/p I&D by Dr. Velazquez (06/07/16). Small hematoma found during procedure inconsistent with 6cm x 6cm x 8cm abscess suggested by MRI brachial plexus. Ddx for RUE weakness: hematoma vs C6/C7 neuropathy. L hemispheric pathology, and seizure ruled out ( see below). Unable to tolerate EMG. Imaging: - US negative for DVT (05/28) - MRI brain (04/28) no acute intracranial process - MRI C-spine (05/29): grossly wnl - EEG (05/29): diffuse mild encephalopathy vs normal Stage 2 sleep - MRI brachial plexus (06/03): "Complex multiloculated soft tissue and cystic mass 5.5 x 6 x 7.8 cm involving subscapularis muscle along anterior R scapula - Pathology report (06/07): fragments of blood clot admixed with few minute fragments of adipose and skeletal muscle tissue (6) Paroxysmal a-fib Status: Chronic Plan: -Sinus rhyth, regular rate at this time - Cardizem/diltiazem 90mg PO qid - Xarelto 20mg PO qd, per critical care (7) Hypertension Status: Chronic Plan: - Bumetanide 1mg PO qd - Cardiazem 90mg QID - Labetalol 10mg IV PRN SBP 160+ (8) CHF (congestive heart failure) Status: Chronic Plan: Suspected HF with poor EF, though unable to confirm via ECHO (04/25) due to poor imaging. BNP elevated on admission, downtrended. - Bumex 1mg PO daily + 40 KCl BID - 1.5L fluid restriction, monitor I/Os, monitor renal function, peripheral edema (9) Stable medical conditions Status: Chronic Plan: NORMOCYTIC ANEMIA - Ferrous sulfate 325mg PO daily - Multivitamin 1 tab PO daily HYPERLIPIDEMIA -Atorvastatin 10mg daily - Tricor 48mg daily MDD: Pt reports stable mood; some anhedonia suspected. Previously, refusing meals, shower, PT - Sertraline 100 mg PO daily - Seroquel 100mg HS INSOMNIA -Zolpidem 5mg HS PRN GOUT -Allopurinol 300mg daily HYPOTHYROIDISM 08/2015- TSH low, free T4 grossly wnl (05/27/16) -Synthroid 50 mcg PO daily FUNGAL INFECTION -Nystatin powder and miconazole creme to skin folds MORBID OBESITY WITH BMI 60-69 -see above plan for mechanical ventilation PAIN - Percocet 10-325 mg PO q6h - Morphine 4mg IVP q6h (10) Nutrition, metabolism, and development symptoms Status: Acute Plan: FEN: Fluids: PO (Limited 1.5L/day) Electrolytes: +40KCl BID. Chronically hypokalemic, replete per protocol Nutrition: 2Kcal heart healthy diet. Transitioned to oral feeds (05/29). Wt: Admission: 480 lbs PPX GI ppx: Protonix 20mg BID DVT ppx: Lovenox 150mg BID Pain: Oxycodone 7.5/325 q4h PRN Bowel: Senna 1 tab HS PRN dw: Dr. Conner (Joshua Moreno MD R1) Problem Qualifiers (1) Hypertension: Qualified Code: I10 - Essential hypertension (2) CHF (congestive heart failure): Qualified Code: I50.9 - Acute on chronic congestive heart failure, unspecified congestive heart failure type Joshua Moreno MD R1 Jun 22, 2016 11:58 Asia Conner MD Jun 22, 2016 12:06
[2016-06-22] MEDS: RESP: ALBUTEROL 2.5 MG/IPRATROPIUM 0.5 MG NEB (PRN) NEB (20:07)
[2016-06-22] MEDS: QUEtiapine FUMARATE 100 MG TAB PO SCH (21:07)
[2016-06-22] MEDS: ZOLPIDEM TARTRATE 5 MG TAB PO PRN (21:07)
[2016-06-22] MEDS: CHLORHEXIDINE 0.12% (ORAL KIT) 15 ML CUP MT SCH (21:13)
[2016-06-23] VITALS (18 sets, daily range): BP systolic 135–160; BP diastolic 60–72; PULSE 82–97; RESP 19–22; TEMP 97.9–98.3; O2SAT 9–95
[2016-06-23] MEDS: LEVOTHYROXINE SODIUM 50 MCG TAB PO SCH (05:35)
[2016-06-23] MEDS: INSULIN NovoLIN REGULAR SUPPLEMENTAL SCALE SQ SCH ×3 (05:37→17:16)
[2016-06-23] MEDS: RESP: BUDESONIDE 0.5 MG/2 ML NEB NEB SCH ×2 (07:03→20:04)
[2016-06-23] MEDS: CHLORHEXIDINE 0.12% (ORAL KIT) 15 ML CUP MT SCH (08:00)
[2016-06-23] MEDS: FERROUS SULFATE 325 MG (65 MG ELEMENTAL IRON) TAB PO SCH (08:43)
[2016-06-23] MEDS: MULTIVITAMIN TAB PO SCH (08:43)
[2016-06-23] MEDS: ATORVASTATIN 10 MG TAB PO SCH (08:43)
[2016-06-23] MEDS: SERTRALINE HCL 100 MG TAB PO SCH (08:43)
[2016-06-23] MEDS: MONTELUKAST SODIUM 10 MG TAB PO SCH (08:43)
[2016-06-23] MEDS: ALLOPURINOL 300 MG TAB PO SCH (08:43)
[2016-06-23] MEDS: BUMETANIDE 1 MG TAB PO SCH (08:43)
[2016-06-23] MEDS: PANTOPRAZOLE SOD 20 MG DELAYED RELEASE TAB PO SCH ×2 (08:43→19:51)
[2016-06-23] MEDS: FENOFIBRATE 48 MG TAB PO SCH (08:43)
[2016-06-23] MEDS: DILTIAZEM HCL 90 MG TAB PO SCH ×4 (08:43→19:51)
[2016-06-23] MEDS: NYSTATIN 100,000 U/GM PWD 15 GM BTL TOPICAL SCH (08:44)
[2016-06-23] MEDS: MICONAZOLE NITRATE 2% CREAM 15 GM TOP SCH (08:44)
[2016-06-23] MEDS: ENOXAPARIN SODIUM 150 MG/ML SYRINGE SQ SCH (08:44)
[2016-06-23] MEDS: SODIUM CHLORIDE 0.9% FLUSH 5 ML FLUSH IVF SCH ×2 (08:46→19:51)
[2016-06-23] MEDS: COLLAGENASE OINT 30 GM TUBE TOP SCH (08:47)
--- NOTE | 2016-06-23 08:52 | HHI.FPPN ---
Subjective Remarks No acute events overnight. Afebrile and vital signs stable. Patient denies any complaints this morning including no chest pain, no diarrhea, no shortness of breath, he also reports increased strength. Objective Vitals Vital Signs Date Time Temp Pulse Resp B/P Pulse Ox O2 Delivery O2 Flow Rate FiO2 06/23/16 07:07 62 40 06/23/16 06:00 90 06/23/16 04:10 94 Ventilator 40 06/23/16 04:10 94 40 06/23/16 04:00 84 06/23/16 04:00 98.1 84 21 146/71 94 06/23/16 04:00 40 06/23/16 02:00 85 06/23/16 01:51 94 40 06/23/16 00:00 40 06/23/16 00:00 98.3 82 19 145/67 90 06/23/16 00:00 82 06/22/16 22:42 100 40 06/22/16 22:00 91 06/22/16 20:00 40 06/22/16 20:00 98.8 87 26 162/74 100 06/22/16 20:00 87 06/22/16 19:35 100 40 06/22/16 18:00 93 06/22/16 16:00 94 06/22/16 16:00 45 06/22/16 16:00 98.7 92 22 141/63 93 06/22/16 15:40 98 45 06/22/16 14:00 96 06/22/16 12:00 94 06/22/16 12:00 45 06/22/16 12:00 98.7 94 24 147/60 94 06/22/16 11:46 94 45 06/22/16 10:00 91 I/O 06/22/16 06/22/16 06/22/16 06/23/16 06/23/16 06/23/16 06:59 14:59 22:59 06:59 14:59 22:59 Intake Total 350 ml 500 ml 155 ml Output Total 850 ml 2300 ml 950 ml 450 ml Balance -500 ml -1800 ml -795 ml -450 ml Intake Oral 350 ml 500 ml 150 ml IV Total 0 ml 0 ml 5 ml Output Urine Total 850 ml 2300 ml 950 ml 450 ml # Bowel Movements 0 1 0 Result Diagram: 06/21/16 1443 06/21/16 1443 Objective Remarks GEN: Morbidly obese male in NAD. DERM: Warm and dry. No erythema or skin breakdown appreciated. Numerous skin folds 2/2 habitus. Bandaged R lateral malleolus c/d/i. Bandaged RUE c/d/i well healing surgical wound. HEENT: Tracheotomy site c/d/i. Poor dentition. CV: Distant heart sounds. RRR. Normal peripheral perfusion. RESP: Transmitted upper respiratory sounds, but otherwise clear to sedation bilaterally. GI: Abdomen soft, obese, non-tender. +BS. Bruises on lower abdomen. MSK: External rotation of RLE. NEURO: CN grossly normal. Procedures 04/24- Started ventilation 05/02- Emergency Trach Exchange 06/03- PICC line removed 06/07- Debridement of RUE abscess (Dr. Velazquez), RUE drain placed 06/10- RUE drain removal Date of Insertion: Jun 06, 2016 A/P Assessment and Plan 31y with super morbid obesity, [id number] respiratory failure, tracheostomy seal leak, and HCAP with + urine, blood, wound, sputum cultures s/ p course of abx. Discharge Planning Days to weeks, pending weaning from mechanical ventilation. Ideally, return to rehab on baseline [place] oxygen. Consider longterm vent facility depending on status. Problem List: (1) On mechanically assisted ventilation Status: Acute Plan: - CPAP with 10 PSV, PEEP 5, oxygen at 2 L/m at FiO2 of 40%, with O2 saturation in the low 90s%. Advance to TC/TP, as tolerated. Weaning per CC. - Pulmicort BID REYES - Duonebs q2h PRN - Singulair 10mg daily - Symbicort bid Impression: Weaning from vent appears to have hit plateau- intermediate card tender plans for dispo? Acute on chronic hypoxemic respiratory failure secondary to HCAP ( resolved) and tracheostomy leak (s/p exchange 05/02). Mechanical ventilation initiated 04/24. Solumedrol (05/10-06/03) (2) Diarrhea Status: Resolved Plan: - Continue to monitor Impression: Improved. Negative C. diff PCR. Likely secondary to food intolerance or medication side effect. Chronicity unknown. Pt states "always" had, but new ailment to team. (3) Nausea Status: Chronic Plan: Chronic. Ddx: GERD vs psychosomatic vs impaired gastric emptying vs medication side effect. - Zofran 4mg IV q6h PRN nausea - Reglan 10mg ACHS PRN nausea - Protonix 20mg BID REYES - Mg-Al liquid q6h PRN dyspepsia - Ca Carbonate Tums chews 500mg q12h (4) Bacteremia Status: Acute Plan: Infectious disease following. Finished course of abx on 06/18. - Colistin 75mg q8h NEB continue - Acetaminophen 325mg PRN fever - Trend CBC, CMP daily Impression: Pseudomonas aeruginosa and Enterococcus faecalis bacteremia secondary to PICC infection vs HCAP. Repeat BCx 06/06 negative (compared to positive 06/03 culture). However, UCx 06/06 grew +Group D Enterococcus. Pt asymptomatic for urinary symptoms. Has willard placed. Likely colonized. Serial CXR show cardiomegaly w b/l pulm edema and R pleural effusion. Abx History Zosyn 4.5gm IV q6h (04/24 - 04/29) Levaquin 750mg IV q24h (04/24-04/30) Zerbaxa 1.5 g IV q8h (04/29 - 05/07) Vancomycin IV (04/24 - 05/06) Ceftriaxone IV (05/07 - 05/25) Linezolid 600 mg PO BID (05/06 - 05/13) Zosyn 3.375 q6h (06/04- 06/05) - Vancomycin IV daily goal trough 15-20, (06/03 -- 06/18) - Zerbaxa IV q8h (06/05-- 06/18) RESOLVED CONDITIONS THIS HOSPITAL VISIT - Cellulitis of Chest Wall: completed course linezolid (05/06-05/13), per ID recs - Yeast UTI: completed course Diflucan. UCx 05/01: Dionne albicans. Repeat UCx 05/05: Proteus Mirabilis - HCAP: s/p multiple abx (5) Hematoma Status: Acute Plan: - Daily dressing changes with xeroform and primapore - Daily PT/OT, as tolerated. PT targeting RUE weakness. Initial Impression: Hematoma contributing to RUE weakness x4 weeks. S/p I&D by Dr. Velazquez (06/07/16). Small hematoma found during procedure inconsistent with 6cm x 6cm x 8cm abscess suggested by MRI brachial plexus. Ddx for RUE weakness: hematoma vs C6/C7 neuropathy. L hemispheric pathology, and seizure ruled out ( see below). Unable to tolerate EMG. Imaging: - US negative for DVT (05/28) - MRI brain (04/28) no acute intracranial process - MRI C-spine (05/29): grossly wnl - EEG (05/29): diffuse mild encephalopathy vs normal Stage 2 sleep - MRI brachial plexus (06/03): "Complex multiloculated soft tissue and cystic mass 5.5 x 6 x 7.8 cm involving subscapularis muscle along anterior R scapula - Pathology report (06/07): fragments of blood clot admixed with few minute fragments of adipose and skeletal muscle tissue (6) Paroxysmal a-fib Status: Chronic Plan: -Sinus rhyth, regular rate at this time - Cardizem/diltiazem 90mg PO qid - Xarelto 20mg PO qd, per critical care (7) Hypertension Status: Chronic Plan: - Bumetanide 1mg PO qd - Cardiazem 90mg QID - Labetalol 10mg IV PRN SBP 160+ (8) CHF (congestive heart failure) Status: Chronic Plan: Suspected HF with poor EF, though unable to confirm via ECHO (04/25) due to poor imaging. BNP elevated on admission, downtrended. - Bumex 1mg PO daily + 40 KCl BID - 1.5L fluid restriction, monitor I/Os, monitor renal function, peripheral edema (9) Stable medical conditions Status: Chronic Plan: NORMOCYTIC ANEMIA - Ferrous sulfate 325mg PO daily - Multivitamin 1 tab PO daily HYPERLIPIDEMIA -Atorvastatin 10mg daily - Tricor 48mg daily MDD: Pt reports stable mood; some anhedonia suspected. Previously, refusing meals, shower, PT - Sertraline 100 mg PO daily - Seroquel 100mg HS INSOMNIA -Zolpidem 5mg HS PRN GOUT -Allopurinol 300mg daily HYPOTHYROIDISM 08/2015- TSH low, free T4 grossly wnl (05/27/16) -Synthroid 50 mcg PO daily FUNGAL INFECTION -Nystatin powder and miconazole creme to skin folds MORBID OBESITY WITH BMI 60-69 -see above plan for mechanical ventilation PAIN - Percocet 10-325 mg PO q6h - Morphine 4mg IVP q6h (10) Nutrition, metabolism, and development symptoms Status: Acute Plan: FEN: Fluids: PO (Limited 1.5L/day) Electrolytes: +40KCl BID. Chronically hypokalemic, replete per protocol Nutrition: 2Kcal heart healthy diet. Transitioned to oral feeds (05/29). Wt: Admission: 480 lbs PPX GI ppx: Protonix 20mg BID DVT ppx: Lovenox 150mg BID Pain: Oxycodone 7.5/325 q4h PRN Bowel: Senna 1 tab HS PRN dw: Dr. Conner Problem Qualifiers (1) Hypertension: Qualified Code: I10 - Essential hypertension (2) CHF (congestive heart failure): Qualified Code: I50.9 - Acute on chronic congestive heart failure, unspecified congestive heart failure type Joshua Moreno MD R1 Jun 23, 2016 08:52
[2016-06-23] MEDS: RESP: COLISTIN 150 MG VIAL NEB SCH ×3 (08:54→23:51)
--- NOTE | 2016-06-23 10:31 | HHI.CCPN ---
Subjective Remarks/Hospital Course 31 year old morbidly obese (BMI 68) male with chronic respiratory failure s/p tracheostomy 4 years ago, atrial fibrillation and pulmonary embolism on Xarelto , COPD, CHF and h/o HTN. He presented from [facility] with low oxygen saturation apparently his oxygen saturation was 82% on RA. He was placed back on 6L of oxygen via his trach mask and given a breathing treatment, initially improved however he started drifting back to low 80s again. Chest x-ray showed bibasilar infiltrates and pulmonary edema. Patient was admitted to the [facility] service and was started on IV steroids IV vancomycin and Zosyn and Levaquin for healthcare associated pneumonia. After starting ACV, patient was more awake but there was a significant amount of air leak around his tracheostomy. Patient has had a Shiley 6.0 Proximal XLT, but the [place] pilot balloon had been cut off. 05/02 the patient became acutely hypoxemic with a large cuff leak, underwent emergency trach exchange at bedside by Dr. Macias. FiO2 65% PEEP 14 05/13 Patient is on ventilator via trach, on Fentanyl infusion however he is awake and alert. On PRVC with FIO2 40%. Afebrile. 05/14 No acute events overnight. Tmax 99.8. Patient is awake, alert on ventilator via trach still requiring increase O2. On PRVC with PEEP: 10 and FIO2 70%. 05/15 Pt acutely desaturated after he was found. Saturation down to 70% on 100 % oxygen. Bag and mask ventilation carried out, with eventual improvement on oxygen saturation to 85%. Patient was placed on PC/AC mode of ventilation, with PEEP of 15 and instructed to pressure of 30. Eventually oxygen saturation improved to 95%. Lasix him today as the chest x-ray from today shows increasing bilateral infiltrate and pulmonary edema. Sputum culture will be sent 05/16 Patient is on Fentanyl and Diprivan infusion but awake and alert. Afebrile. On PC/AC with PEEP:15, IP: 22, IT:1.3 and FIO2 50% 05/17 Patient is off Diprivan and remains on Fentanyl infusion for sedation. On PC/AC with PEEP: down 10 and FIO2 40%. Afebrile. 05/18 Patient remains on ventilator via trach on PC/AC with PEEP:12, FIO2 40%, IP:22, IT:1.0. On Fentanyl infusion 05/19 No acute events overnight. On Fentanyl infusion but awake and alert. Afebrile. 05/20 Tolerating C Pap 17/12 FIO2 40, sats 98%. RSBI in 20s, appears can be weaned further. Afebrile. Speech therapy evaluated and ok for regular diet. Starting with full liquid. 05/21 Will wean PSV to 15/10. Tolerated full liquids, will advance to regular diet per speech recs. Subjective: 05/22 On PSV 15/10 FIO2 40 with sats 92%. Smiling today. Glad to be eating regular food again. 05/23 No acute events overnight. Remains on CPAP with PS 15, PEEP:10 and FIO2 40 %. Afebrile. Off Fentanyl drip. Afebrile. Awake and alert. 05/24 Patient is on CPAP 06/06 with 40% FIO2. Afebrile. Awake and alert, on no sedation. 05/25 No acute events overnight. Patient was placed back on PC/AC overnight. Tolerated CPAP trials during day yesterday. Awake and alert. On no drips. Afebrile. 05/26 Afebrile. Tmax 98.6. Today the patient complained of nausea requiring Zofran. The patient has a lack of an appetite, with noted hypoglycemia early this a.m. blood glucose level 69. Patient tolerating CPAP well greater than 12 hours in the last 24 hours. 05/27 The patient tolerated CPAP for over 36 hours, O2 sat a knee 94% on FIO2 40 %. The patient had an increase in appetite. The patient continues on full liquid diet. 05/28 The patient declined physical therapy treatment, yesterday and also overnight declined to be moved by nursing staff. The patient refused dinner last evening, of note patient was reevaluated by speech therapy and can consume a heart healthy diet with thin liquids. The patient continues on physical therapy for strengthening exercises of all extremities specifically noted right upper extremity continues to be weak with gross fibrillations noted in hand and forearm. 05/29 Afebrile. No change in right upper extremity weakness. The patient was seen by neurology yesterday plan for MRI today if possible in hospital MRI, and EMG studies. No complaints overnight. Patient continues to refuse to have activities performed, movement in bed. The patient appears to be depressed, psychiatry consulted. 12/1: Patient alert awake on CPAP. Following commands. Psych agrees the patient is depressed. MRI brain no acute findings 05/31: Awake alert. on PS 15/8. EMG could not be completed due to patient becoming anxious. Otherwise no acute events reported overnight 06/01: Remains PS from 11/02. Right upper extremity weakness persists. EMG to be repeated on Friday. Will need MRI of the brachial plexus. Chest x-ray is unchanged 06/02: States that "not feeling well". Febrile to 101.5. White count increasing but still within the normal range. Pancultured. We'll request ID reevaluation. 06/03: Resting in bed on C Pap/pressure support via tracheostomy. One out of 2 sets of blood cultures sent on 06/02 positive for gram-positive cocci. 06/04: Resting in bed on mechanical ventilation via tracheostomy. Afebrile overnight. MRI brachial plexus (06/03) revealed a collection near the right subscapularis muscle, possibly an abscess. Discussed with ID, orthopedics Dr. Velazquez consulted. I discussed the case with Dr. Velazquez this morning who feels this is probably an abscess however would be difficult to access surgically and he plans to set up percutaneous drainage by interventional radiology. 06/05: Resting in bed on mechanical ventilation via tracheostomy. Remains afebrile. Reportedly IR cannot do percutaneous drainage of collection involving right subscapularis muscle. 06/06: Resting in bed on mechanical ventilation via tracheostomy. Can actually speak around the trach. Remains afebrile. Dr. Velazquez evaluated patient and is scheduling surgery for drainage of fluid collection involving the right subscapularis muscle. 06/07: Resting in bed on mechanical ventilation via tracheostomy. Awaiting surgery today. 06/08: Status post I&D of collection near right shoulder/subscapularis on 06/[address] Velazquez. This morning patient is awake and alert complained of some pain at the surgical site. Remains on mechanical ventilation on C Pap/pressure support. 06/09: Sleeping, arousable. On mechanical ventilation with C Pap/pressure support overnight. Labs pending 06/10 No acute events overnight. On CPAP with PS 12, PEEP: 8, FIO2 40%. Afebrile. 06/11 Patient remains on CPAP with PS 10, PEEP: 8 and FIO2 40%. Afebrile. 06/12: No acute events overnight. Remains on CPAP 10/5. No specific complaints 06/13: Tolerating C Pap 10 over 5. Awake and alert following commands. Hemoglobin dropped from 8.6-7.1, no obvious bleeding. Sodium 140-149. Will give 1 unit of PRBC with 1 mg IV Bumex 06/14 No acute events overnight. On CPAP with PS 10, PEEP:5 and FIO2 50%. Afebrile. 06/15 No acute events overnight. Remains on CPAP 10/5 with 40% FIO2. Afebrile. 06/16 Patient remains on ventilator via trach on CPAP with PS 10, PEEP:5 and FIO2 40%. 06/17: Resting in bed on mechanical ventilation via tracheostomy. Feeling nauseous. 06/18: OOB in reclining chair. Reporting low back and leg pain that is positional. Continued nausea, denies emesis. CPAP w PS 5 FIO2 40%. Will attempt Tpiece trial today. Discontinue Vanc + Zerbaxa today per ID 06/19: No acute events overnight. Afebrile. HTN to 160/80. CPAP with PS 10. PEEP 10 FIO2 45. Failed Tpiece trial yesterday- desaturated to mid 70s. Denies SOB/CP. Nausea is less than before. Bed is broken and patient would like the mattress to "rotate". Per nursing, they are working to fix it. 06/20: No acute events overnight. Afebrile. HTN to 145/70. CPAP with PEEP 10 FIO2 45, with saturation 93=94%. Pt has no acute complaints. Denies SOB/CP/ Nausea. Didn't know why he threw up during PT yesterday. Denies pain. Still having diarrhea (chronic years in duration issue). Was eating Pringles in bed. Per nursing, does not eat hospital food- waits for mother to bring him food. He was counseled to eat the hospital food which is healthier for him and that he needs to stop eating food brought in by his mother. 06/21: Remains on mechanical ventilation, CPAP with pressure support. 06/22: On mechanical ventilation on C Pap with pressure support. Denies any nausea or abdominal pain. Appears comfortable. 06/23: Resting in bed on mechanical ventilation with C Pap/pressure support +10/ +5. Denies any shortness of breath denies any abdominal pain or nausea currently. Objective Vital Signs Date Time Temp Pulse Resp B/P Pulse Ox O2 Delivery O2 Flow Rate FiO2 06/23/16 10:00 90 06/23/16 08:00 98.0 20 160/72 91 06/23/16 08:00 45 06/23/16 04:10 Ventilator Intake and Output 06/22/16 06/22/16 06/22/16 07:59 15:59 23:59 Intake Total 350 ml 500 ml 155 ml Output Total 850 ml 2300 ml 950 ml Balance -500 ml -1800 ml -795 ml Result Diagram: 06/21/16 1443 06/21/16 1443 Imaging MRI 06/20/16: No official reading. Preliminary reading suggests periventricular white matter changes at basal ganglia and no evidence ischemia CXR 06/17/16: Poor penetration. Rotated image. Unable to visualize lung bases. Possible atelectasis vs infiltrate R worse than L. Objective Remarks GEN: 31yo on ventilator via trach, awakens and follows commands. Super morbidly obese. SKIN: Warm and dry. HEAD: Normocephalic. EYES: No scleral icterus. No injection or drainage. NECK: Supple, trachea midline. Shiley 6.0 Proximal XLT, (new trach placed ) CV: No murmurs, gallops, or rubs by limited exam. RESP: On mechanical ventilation, Breath sounds equal bilaterally. Distant secondary to habitus. GI: Abdomen soft, obese, non-tender, nondistended. Multiple noted areas of ecchymotic bruising secondary to subcutaneous injections. MSK: No cyanosis, or edema. Pedal edema. Wound on lateral aspect of right lower leg above lateral malleolus , dressing C/D/I. 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 Wound on RUE/shoulder healing well, ~20 viral Neuro: Arousable. Moves all extremities with focal deficit right upper extremity as above. Date of Insertion: Jun 06, 2016 A/P Assessment and Plan ASSESSMENT Acute hypercapnic and hypoxemic respiratory failure (Shiley 6.0 Proximal XLT) CO2 narcosis (resolved) Acute worsening of hypoxia due to lung de-recruitment (05/15/16, resolved) Healthcare associated pneumonia MDR Pseudomonas Enterococcal bacteremia Pseudomonas bacteremia Collection near right subscapularis muscle(On MRI 06/03) - hematoma status post I &D on 06/07 Sepsis CHF exacerbation Tracheostomy [place] pilot balloon damage -status post exchange with new Shiley 6.0 Proximal XLT 05/02/16 Probable right brachial plexus injury COPD/obesity hypoventilation syndrome Morbid Obesity BMI 60-69 History of pulmonary embolism 4 years ago Chronic atrial fibrillation Anxiety CHF (Echo 2013 EF 40-45%; ECHO 08/2015 showing a grossly normal systolic function) Hypertension Hypothyroidism Depression PLAN NEURO: CO2 narcosis - resolved Critical care polyneuropathy Right upper extremity weakness 05/21-possibly secondary to nerve compression, C6 , C7 (brachial plexus) Pain Anxiety Depression -EMG/ NCV could not be completed on 05/[address] Castillo -Clinically has right brachial plexus involvement. MRI of brachial plexus on 06/03 revealed collection involving right subscapularis muscle- s/p I & D on 06/[address] Velazquez. -Neurology Dr. Cheek-MRI brain, C spine no acute findings. -Venous Doppler RUE 05/28-negative for DVT -Continued PT daily, with strengthening exercise (encouraged patient to participate) -Continue Seroquel 100mg HS. Continue Zoloft 100mg daily -Decreased pain reg: Tylenol 625mg pain 1-6, Percocet 10/325 pain 7-10 RESP: Acute hypercapnic and hypoxemic respiratory failure Acute lung derecruitment 05/15 with hypoxia Healthcare associated pneumonia Tracheostomy [place] pilot balloon damage (Shiley 6.0 Proximal XLT) s/p new trach placement 05/02 Chronic Respiratory Failure s/p Tracheostomy 4 years ago COPD/obesity hypoventilation syndrome History of pulmonary embolism 4 years ago Leukocytosis-resolved Pulmonary edema - s/p Bronchoscopy 05/11 -follow up on BAL results negative - Pulm toilet, trach care - Continue with vent support keep sat >90% on CPAP 10, 45% FIO2. Attempt TP/TC as tolerated. Unable to tolerate 06/18/16. - Continue DuoNeb q6h REYES + q2h PRN, Pulmicort BID, Singulair 10mg daily CV: CHF exacerbation Pulmonary edema Paroxysmal atrial fibrillation (chronic) Hyperlipidemia -Monitor HR and BP keep MAP>65mmHg -Cardizem 90mg QID, Bumex 1mg daily PO, Lipitor 10g daily, TriCor 40mg by mouth daily -Therapeutic Lovenox 150 mg twice a day GI: Super morbid obesity with BMI of 64 Nausea GERD -Regular diet, thin liquids per speech recs -Liver US 06/03: Fatty liver, sludge in gall bladder, splenomegaly, no mechanical obstruction of bile duct noted. -Protonix 20mg BID. Zofran prn for nausea. -Multivitamin daily -Bringing in food, per nurses. Not adherent to hospital diet. Consider call to family to restrict them from bringing food. FEN/RENAL: Hypokalemia - Monitor renal function , I/O, electrolytes replacement per protocol. - Bumex 1mg PO daily, KCL 40meq Q12 ID: Healthcare associated pneumonia Sepsis New fever MDRO Cellulitis right arm-resolved Leukocytosis-resolved Enterococcal faecalis bacteremia, Pseudomonas bacteremia (06/02, 06/03) -Wound culture Pseudomonas MDR 04/27 -Sputum culture-Pseudomonas MDR- 04/27 -Urine cx: Proteus Mirabilis 05/05 -Sputum cx: Providencia 05/05 -Bronchoscopy and re-culture 05/10- NG -Wound cx: Proteus, Pseudomonas, Group D Enterococcus- 05/13 -Sputum cx- NG- 05/15 -Blood culture: aerobic and anaerobic bottles - enterococcus faecalis, pseudomonas aeruginosa 06/02, 06/03 -Urine culture: pseudomonas aeruginosa- 06/02 -Wound culture: pseudomonas aeruginosa- 06/02 -Sputum culture: Pseudomonas- 06/02 -Dr. Velazquez performed drainage of collection surgically on 06/07- likely hematoma -Stopped IV Vanc and Zerbaxa on 06/18. (MDR pseudomonas in blood cultures) - Remove viral to RUE per Ortho or tomorrow (2 weeks s/p surgery) - Continue colistin nebs until 06/27, per ID HEME: History of PE on chronic anticoagulation with Xarelto Iron deficiency anemia and anemia of critical illness. -Monitor CBC, transfused 1U PRBC 06/13 -Xarelto for PE 4 yrs ago. -Xarelto.held, On therapeutic Lovenox 150 mg twice a day -Ferrous sulfate 300 mg/q day ENDO: Hypothyroidism -On SSI (Low scale) -Continue levothyroxine 50 mcg po daily -Free T4 1.52 PROPH: -Lower extremity SCDs (L leg only, R ankle cellulitis), Lovenox 150 mg twice a day GI prophylaxis- Protonix 20mg BID LINES: - PICC line RUE- No DVT on US 05/02 - removed on 06/03. Out of bed with assistance. PT out of bed with vent. OT. Bo Land MD Jun 23, 2016 10:31
[2016-06-23] MEDS: oxyCODONE/ACETAMINOPHEN 10 MG/325 MG TAB PO PRN ×2 (10:35→17:16)
[2016-06-23] MEDS: POTASSIUM CHLORIDE 20 MEQ CONTROLLED RELEASE TAB PO SCH (11:00)
[2016-06-23] MEDS: QUEtiapine FUMARATE 100 MG TAB PO SCH (19:51)
[2016-06-23] MEDS: ZOLPIDEM TARTRATE 5 MG TAB PO PRN (19:51)
[2016-06-24] VITALS (20 sets, daily range): BP systolic 147–182; BP diastolic 69–81; PULSE 85–91; RESP 20–23; TEMP 97.9–99.3; O2SAT 91–98
[2016-06-24] MEDS: POTASSIUM CHLORIDE 20 MEQ CONTROLLED RELEASE TAB PO SCH ×3 (04:45→21:54)
[2016-06-24] MEDS: ENOXAPARIN SODIUM 150 MG/ML SYRINGE SQ SCH ×3 (04:45→21:54)
[2016-06-24] MEDS: MICONAZOLE NITRATE 2% CREAM 15 GM TOP SCH ×3 (04:47→21:00)
[2016-06-24] MEDS: CHLORHEXIDINE 0.12% (ORAL KIT) 15 ML CUP MT SCH ×3 (04:47→20:00)
[2016-06-24] MEDS: NYSTATIN 100,000 U/GM PWD 15 GM BTL TOPICAL SCH ×3 (04:47→20:44)
[2016-06-24] MEDS: LEVOTHYROXINE SODIUM 50 MCG TAB PO SCH (06:00)
[2016-06-24] MEDS: INSULIN NovoLIN REGULAR SUPPLEMENTAL SCALE SQ SCH ×4 (06:00→18:00)
[2016-06-24 07:15] LABS: HEMATOCRIT 27.9 % (39.0-51.0); MEAN CELL VOLUME 82.9 FL (80.0-100.0); MEAN CORPUSCULAR HEMOGLOBIN 25.7 PG (27.0-34.0); PLATELET COUNT 225 TH/MM3 (150-450); RED BLOOD COUNT 3.37 MIL/MM3 (4.50-5.90); RED CELL DISTRIBUTION WIDTH 24.4 % (11.6-17.2); REVIEW FLAG FINAL; WHITE BLOOD COUNT 9.6 TH/MM3 (4.0-11.0)
[2016-06-24 08:00] LABS: BICARBONATE 42.4 MEQ/L (21.0-32.0); POTASSIUM 3.3 MEQ/L (3.5-5.1)
[2016-06-24] MEDS: RESP: BUDESONIDE 0.5 MG/2 ML NEB NEB SCH ×2 (08:02→19:36)
[2016-06-24] MEDS: RESP: COLISTIN 150 MG VIAL NEB SCH ×3 (08:03→23:50)
[2016-06-24] MEDS: COLLAGENASE OINT 30 GM TUBE TOP SCH (09:00)
[2016-06-24] MEDS: oxyCODONE/ACETAMINOPHEN 10 MG/325 MG TAB PO PRN ×2 (09:56→16:15)
[2016-06-24] MEDS: DILTIAZEM HCL 90 MG TAB PO SCH ×4 (09:56→20:42)
[2016-06-24] MEDS: BUMETANIDE 1 MG TAB PO SCH (09:56)
[2016-06-24] MEDS: SERTRALINE HCL 100 MG TAB PO SCH (09:56)
[2016-06-24] MEDS: ALLOPURINOL 300 MG TAB PO SCH (09:56)
[2016-06-24] MEDS: FERROUS SULFATE 325 MG (65 MG ELEMENTAL IRON) TAB PO SCH (09:56)
[2016-06-24] MEDS: MONTELUKAST SODIUM 10 MG TAB PO SCH (09:57)
[2016-06-24] MEDS: MULTIVITAMIN TAB PO SCH (09:57)
[2016-06-24] MEDS: ATORVASTATIN 10 MG TAB PO SCH (09:57)
[2016-06-24] MEDS: FENOFIBRATE 48 MG TAB PO SCH (09:57)
[2016-06-24] MEDS: PANTOPRAZOLE SOD 20 MG DELAYED RELEASE TAB PO SCH ×2 (09:57→20:43)
[2016-06-24] MEDS: SODIUM CHLORIDE 0.9% FLUSH 5 ML FLUSH IVF SCH ×2 (09:58→20:44)
--- NOTE | 2016-06-24 11:28 | HHI.CCPN ---
Subjective Remarks/Hospital Course 31 year old morbidly obese (BMI 68) male with chronic respiratory failure s/p tracheostomy 4 years ago, atrial fibrillation and pulmonary embolism on Xarelto , COPD, CHF and h/o HTN. He presented from [facility] with low oxygen saturation apparently his oxygen saturation was 82% on RA. He was placed back on 6L of oxygen via his trach mask and given a breathing treatment, initially improved however he started drifting back to low 80s again. Chest x-ray showed bibasilar infiltrates and pulmonary edema. Patient was admitted to the [facility] service and was started on IV steroids IV vancomycin and Zosyn and Levaquin for healthcare associated pneumonia. After starting ACV, patient was more awake but there was a significant amount of air leak around his tracheostomy. Patient has had a Shiley 6.0 Proximal XLT, but the master pilot balloon had been cut off. 05/02 the patient became acutely hypoxemic with a large cuff leak, underwent emergency trach exchange at bedside by Dr. Macias. FiO2 65% PEEP 14 05/13 Patient is on ventilator via trach, on Fentanyl infusion however he is awake and alert. On PRVC with FIO2 40%. Afebrile. 05/14 No acute events overnight. Tmax 99.8. Patient is awake, alert on ventilator via trach still requiring increase O2. On PRVC with PEEP: 10 and FIO2 70%. 05/15 Pt acutely desaturated after he was found. Saturation down to 70% on 100 % oxygen. Bag and mask ventilation carried out, with eventual improvement on oxygen saturation to 85%. Patient was placed on PC/AC mode of ventilation, with PEEP of 15 and instructed to pressure of 30. Eventually oxygen saturation improved to 95%. Lasix him today as the chest x-ray from today shows increasing bilateral infiltrate and pulmonary edema. Sputum culture will be sent 05/16 Patient is on Fentanyl and Diprivan infusion but awake and alert. Afebrile. On PC/AC with PEEP:15, IP: 22, IT:1.3 and FIO2 50% 05/17 Patient is off Diprivan and remains on Fentanyl infusion for sedation. On PC/AC with PEEP: down 10 and FIO2 40%. Afebrile. 05/18 Patient remains on ventilator via trach on PC/AC with PEEP:12, FIO2 40%, IP:22, IT:1.0. On Fentanyl infusion 05/19 No acute events overnight. On Fentanyl infusion but awake and alert. Afebrile. 05/20 Tolerating C Pap 17/12 FIO2 40, sats 98%. RSBI in 20s, appears can be weaned further. Afebrile. Speech therapy evaluated and ok for regular diet. Starting with full liquid. 05/21 Will wean PSV to 15/10. Tolerated full liquids, will advance to regular diet per speech recs. Subjective: 05/22 On PSV 15/10 FIO2 40 with sats 92%. Smiling today. Glad to be eating regular food again. 05/23 No acute events overnight. Remains on CPAP with PS 15, PEEP:10 and FIO2 40 %. Afebrile. Off Fentanyl drip. Afebrile. Awake and alert. 05/24 Patient is on CPAP 06/06 with 40% FIO2. Afebrile. Awake and alert, on no sedation. 05/25 No acute events overnight. Patient was placed back on PC/AC overnight. Tolerated CPAP trials during day yesterday. Awake and alert. On no drips. Afebrile. 05/26 Afebrile. Tmax 98.6. Today the patient complained of nausea requiring Zofran. The patient has a lack of an appetite, with noted hypoglycemia early this a.m. blood glucose level 69. Patient tolerating CPAP well greater than 12 hours in the last 24 hours. 05/27 The patient tolerated CPAP for over 36 hours, O2 sat a knee 94% on FIO2 40 %. The patient had an increase in appetite. The patient continues on full liquid diet. 05/28 The patient declined physical therapy treatment, yesterday and also overnight declined to be moved by nursing staff. The patient refused dinner last evening, of note patient was reevaluated by speech therapy and can consume a heart healthy diet with thin liquids. The patient continues on physical therapy for strengthening exercises of all extremities specifically noted right upper extremity continues to be weak with gross fibrillations noted in hand and forearm. 05/29 Afebrile. No change in right upper extremity weakness. The patient was seen by neurology yesterday plan for MRI today if possible in hospital MRI, and EMG studies. No complaints overnight. Patient continues to refuse to have activities performed, movement in bed. The patient appears to be depressed, psychiatry consulted. 12/1: Patient alert awake on CPAP. Following commands. Psych agrees the patient is depressed. MRI brain no acute findings 05/31: Awake alert. on PS 15/8. EMG could not be completed due to patient becoming anxious. Otherwise no acute events reported overnight 06/01: Remains PS from 11/02. Right upper extremity weakness persists. EMG to be repeated on Friday. Will need MRI of the brachial plexus. Chest x-ray is unchanged 06/02: States that "not feeling well". Febrile to 101.5. White count increasing but still within the normal range. Pancultured. We'll request ID reevaluation. 06/03: Resting in bed on C Pap/pressure support via tracheostomy. One out of 2 sets of blood cultures sent on 06/02 positive for gram-positive cocci. 06/04: Resting in bed on mechanical ventilation via tracheostomy. Afebrile overnight. MRI brachial plexus (06/03) revealed a collection near the right subscapularis muscle, possibly an abscess. Discussed with ID, orthopedics Dr. Velazquez consulted. I discussed the case with Dr. Velazquez this morning who feels this is probably an abscess however would be difficult to access surgically and he plans to set up percutaneous drainage by interventional radiology. 06/05: Resting in bed on mechanical ventilation via tracheostomy. Remains afebrile. Reportedly IR cannot do percutaneous drainage of collection involving right subscapularis muscle. 06/06: Resting in bed on mechanical ventilation via tracheostomy. Can actually speak around the trach. Remains afebrile. Dr. Velazquez evaluated patient and is scheduling surgery for drainage of fluid collection involving the right subscapularis muscle. 06/07: Resting in bed on mechanical ventilation via tracheostomy. Awaiting surgery today. 06/08: Status post I&D of collection near right shoulder/subscapularis on 06/[address] Velazquez. This morning patient is awake and alert complained of some pain at the surgical site. Remains on mechanical ventilation on C Pap/pressure support. 06/09: Sleeping, arousable. On mechanical ventilation with C Pap/pressure support overnight. Labs pending 06/10 No acute events overnight. On CPAP with PS 12, PEEP: 8, FIO2 40%. Afebrile. 06/11 Patient remains on CPAP with PS 10, PEEP: 8 and FIO2 40%. Afebrile. 06/12: No acute events overnight. Remains on CPAP 10/5. No specific complaints 06/13: Tolerating C Pap 10 over 5. Awake and alert following commands. Hemoglobin dropped from 8.6-7.1, no obvious bleeding. Sodium 140-149. Will give 1 unit of PRBC with 1 mg IV Bumex 06/14 No acute events overnight. On CPAP with PS 10, PEEP:5 and FIO2 50%. Afebrile. 06/15 No acute events overnight. Remains on CPAP 10/5 with 40% FIO2. Afebrile. 06/16 Patient remains on ventilator via trach on CPAP with PS 10, PEEP:5 and FIO2 40%. 06/17: Resting in bed on mechanical ventilation via tracheostomy. Feeling nauseous. 06/18: OOB in reclining chair. Reporting low back and leg pain that is positional. Continued nausea, denies emesis. CPAP w PS 5 FIO2 40%. Will attempt Tpiece trial today. Discontinue Vanc + Zerbaxa today per ID 06/19: No acute events overnight. Afebrile. HTN to 160/80. CPAP with PS 10. PEEP 10 FIO2 45. Failed Tpiece trial yesterday- desaturated to mid 70s. Denies SOB/CP. Nausea is less than before. Bed is broken and patient would like the mattress to "rotate". Per nursing, they are working to fix it. 06/20: No acute events overnight. Afebrile. HTN to 145/70. CPAP with PEEP 10 FIO2 45, with saturation 93=94%. Pt has no acute complaints. Denies SOB/CP/ Nausea. Didn't know why he threw up during PT yesterday. Denies pain. Still having diarrhea (chronic years in duration issue). Was eating Pringles in bed. Per nursing, does not eat hospital food- waits for mother to bring him food. He was counseled to eat the hospital food which is healthier for him and that he needs to stop eating food brought in by his mother. 06/21: Remains on mechanical ventilation, CPAP with pressure support. 06/22: On mechanical ventilation on C Pap with pressure support. Denies any nausea or abdominal pain. Appears comfortable. 06/23: Resting in bed on mechanical ventilation with C Pap/pressure support +10/ +5. Denies any shortness of breath denies any abdominal pain or nausea currently. 06/24: Refusing to get OOB with physical therapy today. I had a long discussion with the patient about the fact that he has been inpatient for months now and he is severely deconditioned. He must get out of bed with PT to clinically improve, and deconditioning is a major factor in his chronic respiratory failure. He denies chest pain or SOB. does endorse some nausea today. Objective Vital Signs Date Time Temp Pulse Resp B/P Pulse Ox O2 Delivery O2 Flow Rate FiO2 06/24/16 10:00 88 06/24/16 08:00 40 06/24/16 08:00 97.9 20 157/69 91 06/23/16 04:10 Ventilator Intake and Output 06/23/16 06/23/16 06/24/16 08:00 16:00 00:00 Intake Total 400 ml 260 ml Output Total 450 ml 1500 ml 700 ml Balance -450 ml -1100 ml -440 ml Result Diagram: 06/24/16 0544 06/24/16 0544 Imaging MRI 06/20/16: No official reading. Preliminary reading suggests periventricular white matter changes at basal ganglia and no evidence ischemia CXR 06/17/16: Poor penetration. Rotated image. Unable to visualize lung bases. Possible atelectasis vs infiltrate R worse than L. Objective Remarks GEN: 31yo on ventilator via trach, awakens and follows commands. Super morbidly obese. SKIN: Warm and dry. HEAD: Normocephalic. EYES: No scleral icterus. No injection or drainage. NECK: Supple, trachea midline. Shiley 6.0 Proximal XLT, (new trach placed ) CV: No murmurs, gallops, or rubs by limited exam. RESP: On mechanical ventilation, Breath sounds equal bilaterally. Distant secondary to habitus. GI: Abdomen soft, obese, non-tender, nondistended. Multiple noted areas of ecchymotic bruising secondary to subcutaneous injections. MSK: No cyanosis, or edema. Pedal edema. Wound on lateral aspect of right lower leg above lateral malleolus , dressing C/D/I. RUE motor strength, inability to perform flexion, or pronation, hand editor school photograph strength 2/5. Wound on RUE/shoulder healing well, ~20 viral Neuro: Arousable. Moves all extremities with focal deficit right upper extremity as above. A/P Assessment and Plan ASSESSMENT Acute hypercapnic and hypoxemic respiratory failure (Shiley 6.0 Proximal XLT) CO2 narcosis (resolved) Acute worsening of hypoxia due to lung de-recruitment (05/15/16, resolved) Healthcare associated pneumonia MDR Pseudomonas Enterococcal bacteremia Pseudomonas bacteremia Collection near right subscapularis muscle(On MRI 06/03) - hematoma status post I &D on 06/07 Sepsis CHF exacerbation Tracheostomy master pilot balloon damage -status post exchange with new Shiley 6.0 Proximal XLT 05/02/16 Probable right brachial plexus injury COPD/obesity hypoventilation syndrome Morbid Obesity BMI 60-69 History of pulmonary embolism 4 years ago Chronic atrial fibrillation Anxiety CHF (Echo 2013 EF 40-45%; ECHO 08/2015 showing a grossly normal systolic function) Hypertension Hypothyroidism Depression PLAN NEURO: CO2 narcosis - resolved Critical care polyneuropathy Right upper extremity weakness 05/21-possibly secondary to nerve compression, C6 , C7 (brachial plexus) Pain Anxiety Depression -EMG/ NCV could not be completed on 05/[address] Castillo -Clinically has right brachial plexus involvement. MRI of brachial plexus on 06/03 revealed collection involving right subscapularis muscle- s/p I & D on 06/[address] Velazquez. -Neurology Dr. Cheek-MRI brain, C spine no acute findings. -Venous Doppler RUE 05/28-negative for DVT -Continued PT daily, with strengthening exercise - I discussed again with patient that participating in PT is necessary to his medical care. -Continue Seroquel 100mg HS. Continue Zoloft 100mg daily -Decreased pain reg: Tylenol 625mg pain 1-6, Percocet 10/325 pain 7-10 RESP: Acute hypercapnic and hypoxemic respiratory failure Acute lung derecruitment 05/15 with hypoxia Healthcare associated pneumonia Tracheostomy master pilot balloon damage (Shiley 6.0 Proximal XLT) s/p new trach placement 05/02 Chronic Respiratory Failure s/p Tracheostomy 4 years ago COPD/obesity hypoventilation syndrome History of pulmonary embolism 4 years ago Leukocytosis-resolved Pulmonary edema - s/p Bronchoscopy 05/11 -follow up on BAL results negative - Pulm toilet, trach care - Continue with vent support keep sat >88% on CPAP 10, 45% FIO2. Attempt TP/TC as tolerated. Will try again today. I think there is a strong volitional component to his failing t-piece because he states he feels tired before objective evidence of increased work of breathing. - Continue DuoNeb q6h REYES + q2h PRN, Pulmicort BID, Singulair 10mg daily CV: CHF exacerbation Pulmonary edema Paroxysmal atrial fibrillation (chronic) Hyperlipidemia -Monitor HR and BP keep MAP>65mmHg -Cardizem 90mg QID, Bumex 1mg daily PO, Lipitor 10g daily, TriCor 40mg by mouth daily -Therapeutic Lovenox 150 mg twice a day GI: Super morbid obesity with BMI of 64 Nausea GERD -Regular diet, thin liquids per speech recs -Liver US 06/03: Fatty liver, sludge in gall bladder, splenomegaly, no mechanical obstruction of bile duct noted. -Protonix 20mg BID. Zofran prn for nausea. -Multivitamin daily -Bringing in food, per nurses. Not adherent to hospital diet. Consider call to family to restrict them from bringing food. FEN/RENAL: Hypokalemia Metabolic alkalosis - Monitor renal function , I/O, electrolytes replacement per protocol. - Bumex 1mg PO daily, KCL 40meq Q12 - Diamox 500mg iv q8h x 3 doses today. this may help with tolerating t-piece. ID: Healthcare associated pneumonia Sepsis New fever MDRO Cellulitis right arm-resolved Leukocytosis-resolved Enterococcal faecalis bacteremia, Pseudomonas bacteremia (06/02, 06/03) -Wound culture Pseudomonas MDR 04/27 -Sputum culture-Pseudomonas MDR- 04/27 -Urine cx: Proteus Mirabilis 05/05 -Sputum cx: Providencia 05/05 -Bronchoscopy and re-culture 05/10- NG -Wound cx: Proteus, Pseudomonas, Group D Enterococcus- 05/13 -Sputum cx- NG- 05/15 -Blood culture: aerobic and anaerobic bottles - enterococcus faecalis, pseudomonas aeruginosa 06/02, 06/03 -Urine culture: pseudomonas aeruginosa- 06/02 -Wound culture: pseudomonas aeruginosa- 06/02 -Sputum culture: Pseudomonas- 06/02 -Dr. Velazquez performed drainage of collection surgically on 06/07- likely hematoma -Stopped IV Vanc and Zerbaxa on 06/18. (MDR pseudomonas in blood cultures) - Remove viral to RUE per Ortho or tomorrow (2 weeks s/p surgery) - Continue colistin nebs until 06/27, per ID HEME: History of PE on chronic anticoagulation with Xarelto Iron deficiency anemia and anemia of critical illness. -Monitor CBC, transfused 1U PRBC 06/13 -Xarelto for PE 4 yrs ago. -Xarelto.held, On therapeutic Lovenox 150 mg twice a day -Ferrous sulfate 300 mg/q day ENDO: Hypothyroidism -On SSI (Low scale) -Continue levothyroxine 50 mcg po daily -Free T4 1.52 PROPH: -Lower extremity SCDs (L leg only, R ankle cellulitis), Lovenox 150 mg twice a day GI prophylaxis- Protonix 20mg BID LINES: - PICC line RUE- No DVT on US 05/02 - removed on 06/03. - Milan catheter: will keep today while on Diamox for accurate I/Os and active diuresis. Out of bed with assistance. PT out of bed with vent. OT. Dispo: Once we can get him off the ventilator, he can go back to his rehab facility. Until then, he remains in the ICU. Fletcher Brown MD Jun 24, 2016 11:28
--- NOTE | 2016-06-24 13:15 | HHI.FPPN ---
Subjective Remarks No acute events overnight. Afebrile and vital signs stable overnight. Patient in bariatric chair next to bed. Patient's only complaint is that he wants to return to his bed. He denied any chest pain, shortness of breath, diarrhea. Objective Vitals Vital Signs Date Time Temp Pulse Resp B/P Pulse Ox O2 Delivery O2 Flow Rate FiO2 06/24/16 12:38 98.1 87 20 182/81 91 06/24/16 12:00 40 06/24/16 12:00 85 06/24/16 10:00 88 06/24/16 08:00 40 06/24/16 08:00 85 06/24/16 08:00 97.9 87 20 157/69 91 06/24/16 07:58 96 40 06/24/16 06:00 88 06/24/16 04:00 40 06/24/16 04:00 98.1 85 23 160/74 95 06/24/16 04:00 85 06/24/16 03:59 95 40 06/24/16 02:00 88 06/24/16 01:22 93 40 06/24/16 00:00 97.9 90 22 148/71 91 06/24/16 00:00 40 06/24/16 00:00 90 06/23/16 22:00 89 06/23/16 20:07 94 40 06/23/16 20:00 98.3 92 21 149/68 90 06/23/16 20:00 40 06/23/16 20:00 92 06/23/16 18:00 90 06/23/16 18:00 20 06/23/16 16:00 86 06/23/16 16:00 45 06/23/16 16:00 98.0 97 22 151/70 90 06/23/16 15:00 95 40 06/23/16 14:00 90 I/O 06/23/16 06/23/16 06/23/16 06/24/16 06/24/16 06/24/16 06:59 14:59 22:59 06:59 14:59 22:59 Intake Total 400 ml 260 ml 105 ml Output Total 450 ml 1500 ml 700 ml 725 ml Balance -450 ml -1100 ml -440 ml -620 ml Intake Oral 400 ml 250 ml 100 ml IV Total 0 ml 10 ml 5 ml Output Urine Total 450 ml 1500 ml 700 ml 725 ml # Bowel Movements 0 Result Diagram: 06/24/1644 06/24/1644 Objective Remarks GEN: Morbidly obese male in NAD. DERM: Warm and dry. No erythema or skin breakdown appreciated. Numerous skin folds 2/2 habitus. Bandaged R lateral malleolus c/d/i. Bandaged RUE c/d/i well healing surgical wound. HEENT: Tracheotomy site c/d/i. Poor dentition. CV: Distant heart sounds. RRR. Normal peripheral perfusion. RESP: Transmitted upper respiratory sounds, but otherwise clear to auscultation bilaterally. GI: Abdomen soft, obese, non-tender. +BS. Bruises on lower abdomen. MSK: External rotation of RLE. Patient able to move all his fingers and toes. Patient with intact sensation in all his fingers and toes. NEURO: CN grossly normal. Procedures 04/24- Started ventilation 05/02- Emergency Trach Exchange 06/03- PICC line removed 06/07- Debridement of RUE abscess (Dr. Velazquez), RUE drain placed 06/10- RUE drain removal A/P Assessment and Plan 31y with super morbid obesity, [id number] respiratory failure, tracheostomy seal leak, and HCAP with + urine, blood, wound, sputum cultures s/ p course of abx. Discharge Planning Days to weeks, pending weaning from mechanical ventilation. Ideally, return to rehab on baseline NC oxygen. Consider intermediate vent facility depending on status. Problem List: (1) On mechanically assisted ventilation Status: Acute Plan: - CPAP with 10 PSV, PEEP 5, oxygen at 2 L/m at FiO2 of 40%, with O2 saturation in the low 90s%. Advance to TC/TP, as tolerated. Weaning per CC. - Pulmicort BID REYES - Duonebs q2h PRN - Singulair 10mg daily - Symbicort bid Impression: Weaning from vent appears to have hit plateau- intermediate plans for dispo? Acute on chronic hypoxemic respiratory failure secondary to HCAP ( resolved) and tracheostomy leak (s/p exchange 05/02). Mechanical ventilation initiated 04/24. Solumedrol (05/10-06/03) (2) Diarrhea Status: Resolved Plan: - Continue to monitor Impression: Improved. Negative C. diff PCR. Likely secondary to food intolerance or medication side effect. Chronicity unknown. Pt states "always" had, but new ailment to team. (3) Nausea Status: Chronic Plan: Chronic. Ddx: GERD vs psychosomatic vs impaired gastric emptying vs medication side effect. - Zofran 4mg IV q6h PRN nausea - Reglan 10mg ACHS PRN nausea - Protonix 20mg BID REYES - Mg-Al liquid q6h PRN dyspepsia - Ca Carbonate Tums chews 500mg q12h (4) Bacteremia Status: Acute Plan: Infectious disease following. Finished course of abx on 06/18. - Colistin 75mg q8h NEB continue - Acetaminophen 325mg PRN fever - Trend CBC, CMP daily Impression: Pseudomonas aeruginosa and Enterococcus faecalis bacteremia secondary to PICC infection vs HCAP. Repeat BCx 06/06 negative (compared to positive 06/03 culture). However, UCx 06/06 grew +Group D Enterococcus. Pt asymptomatic for urinary symptoms. Has willard placed. Likely colonized. Serial CXR show cardiomegaly w b/l pulm edema and R pleural effusion. Abx History Zosyn 4.5gm IV q6h (04/24 - 04/29) Levaquin 750mg IV q24h (04/24-04/30) Zerbaxa 1.5 g IV q8h (04/29 - 05/07) Vancomycin IV (04/24 - 05/06) Ceftriaxone IV (05/07 - 05/25) Linezolid 600 mg PO BID (05/06 - 05/13) Zosyn 3.375 q6h (06/04- 06/05) - Vancomycin IV daily goal trough 15-20, (06/03 -- 06/18) - Zerbaxa IV q8h (06/05-- 06/18) RESOLVED CONDITIONS THIS HOSPITAL VISIT - Cellulitis of Chest Wall: completed course linezolid (05/06-05/13), per ID recs - Yeast UTI: completed course Diflucan. UCx 05/01: Dionne albicans. Repeat UCx 05/05: Proteus Mirabilis - HCAP: s/p multiple abx (5) Hematoma Status: Acute Plan: - Daily dressing changes with xeroform and primapore - Daily PT/OT, as tolerated. PT targeting RUE weakness. Initial Impression: Hematoma contributing to RUE weakness x4 weeks. S/p I&D by Dr. Velazquez (06/07/16). Small hematoma found during procedure inconsistent with 6cm x 6cm x 8cm abscess suggested by MRI brachial plexus. Ddx for RUE weakness: hematoma vs C6/C7 neuropathy. L hemispheric pathology, and seizure ruled out ( see below). Unable to tolerate EMG. Imaging: - US negative for DVT (05/28) - MRI brain (04/28) no acute intracranial process - MRI C-spine (05/29): grossly wnl - EEG (05/29): diffuse mild encephalopathy vs normal Stage 2 sleep - MRI brachial plexus (06/03): "Complex multiloculated soft tissue and cystic mass 5.5 x 6 x 7.8 cm involving subscapularis muscle along anterior R scapula - Pathology report (06/07): fragments of blood clot admixed with few minute fragments of adipose and skeletal muscle tissue (6) Paroxysmal a-fib Status: Chronic Plan: -Sinus rhyth, regular rate at this time - Cardizem/diltiazem 90mg PO qid - Xarelto 20mg PO qd, per critical care (7) Hypertension Status: Chronic Plan: - Bumetanide 1mg PO qd - Cardiazem 90mg QID - Labetalol 10mg IV PRN SBP 160+ (8) CHF (congestive heart failure) Status: Chronic Plan: Suspected HF with poor EF, though unable to confirm via ECHO (04/25) due to poor imaging. BNP elevated on admission, downtrended. - Bumex 1mg PO daily + 40 KCl BID - 1.5L fluid restriction, monitor I/Os, monitor renal function, peripheral edema (9) Stable medical conditions Status: Chronic Plan: NORMOCYTIC ANEMIA - Ferrous sulfate 325mg PO daily - Multivitamin 1 tab PO daily HYPERLIPIDEMIA -Atorvastatin 10mg daily - Tricor 48mg daily MDD: Pt reports stable mood; some anhedonia suspected. Previously, refusing meals, shower, PT - Sertraline 100 mg PO daily - Seroquel 100mg HS INSOMNIA -Zolpidem 5mg HS PRN GOUT -Allopurinol 300mg daily HYPOTHYROIDISM 08/2015- TSH low, free T4 grossly wnl (05/27/16) -Synthroid 50 mcg PO daily FUNGAL INFECTION -Nystatin powder and miconazole creme to skin folds MORBID OBESITY WITH BMI 60-69 -see above plan for mechanical ventilation PAIN - Percocet 10-325 mg PO q6h - Morphine 4mg IVP q6h (10) Nutrition, metabolism, and development symptoms Status: Acute Plan: FEN: Fluids: PO (Limited 1.5L/day) Electrolytes: +40KCl BID. Chronically hypokalemic, replete per protocol Nutrition: 2Kcal heart healthy diet. Transitioned to oral feeds (05/29). Wt: Admission: 480 lbs PPX GI ppx: Protonix 20mg BID DVT ppx: Lovenox 150mg BID Pain: Oxycodone 7.5/325 q4h PRN Bowel: Senna 1 tab HS PRN dw: Dr. Conner Problem Qualifiers (1) Hypertension: Qualified Code: I10 - Essential hypertension (2) CHF (congestive heart failure): Qualified Code: I50.9 - Acute on chronic congestive heart failure, unspecified congestive heart failure type Joshua Moreno MD R1 Jun 24, 2016 13:15
--- NOTE | 2016-06-24 13:48 | HHI.IDPN ---
Subjective Subjective Remarks Notes reviewed D/W RN Temps ok Had some desaturation this morning Tolerating CPAP BP good Antibiotics Colistin nebs Lines PIVs Past Medical History Chronic Respiratory Failure s/p Tracheostomy 4 years ago Morbid Obesity w/ BMI 67.6 Atrial fibrillation Pulmonary embolism 4 years ago Anxiety CHF (Echo 06/07/2014 w/ EF 40-45%; ECHO 08/2015 showing a grossly normal systolic function) HTN Hypothyroidism Past Surgical History Tracheostomy Tonsillectomy Allergies: Coded Allergies: *MDRO Multi-Drug Resistant Organism (Verified Adverse Reaction, Unknown, 05/08/16) XDR Pseudomonas aeruginosa (sputum) - 09/18/15; (sputum & wound) - 04/27/16 Objective . Vital Signs Date Time Temp Pulse Resp B/P Pulse Ox O2 Delivery O2 Flow Rate FiO2 06/24/16 12:38 98.1 87 20 182/81 91 06/24/16 12:00 40 06/24/16 12:00 85 06/24/16 10:00 88 06/24/16 08:00 40 06/24/16 08:00 85 06/24/16 08:00 97.9 87 20 157/69 91 06/24/16 07:58 96 40 06/24/16 06:00 88 06/24/16 04:00 40 06/24/16 04:00 98.1 85 23 160/74 95 06/24/16 04:00 85 06/24/16 03:59 95 40 06/24/16 02:00 88 06/24/16 01:22 93 40 06/24/16 00:00 97.9 90 22 148/71 91 06/24/16 00:00 40 06/24/16 00:00 90 06/23/16 22:00 89 06/23/16 20:07 94 40 06/23/16 20:00 98.3 92 21 149/68 90 06/23/16 20:00 40 06/23/16 20:00 92 06/23/16 18:00 90 06/23/16 18:00 20 06/23/16 16:00 86 06/23/16 16:00 45 06/23/16 16:00 98.0 97 22 151/70 90 06/23/16 15:00 95 40 06/23/16 14:00 90 06/23/16 06/23/16 06/24/16 14:59 22:59 06:59 Intake Total 400 ml 260 ml 105 ml Output Total 1500 ml 700 ml 725 ml Balance -1100 ml -440 ml -620 ml Intake Oral 400 ml 250 ml 100 ml IV Total 0 ml 10 ml 5 ml Output Urine Total 1500 ml 700 ml 725 ml . Laboratory Tests Test 06/24/16 05:44 White Blood Count 9.6 TH/MM3 Red Blood Count 3.37 MIL/MM3 Hemoglobin 8.7 GM/DL Hematocrit 27.9 % Mean Corpuscular Volume 82.9 FL Mean Corpuscular Hemoglobin 25.7 PG Mean Corpuscular Hemoglobin 31.0 % Concent Red Cell Distribution Width 24.4 % Platelet Count 225 TH/MM3 Mean Platelet Volume 7.1 FL Laboratory Tests Test 06/24/16 05:44 Sodium Level 139 MEQ/L Potassium Level 3.3 MEQ/L Chloride Level 90 MEQ/L Carbon Dioxide Level 42.4 MEQ/L Anion Gap 7 MEQ/L Blood Urea Nitrogen 7 MG/DL Creatinine 0.25 MG/DL Estimat Glomerular Filtration 429 ML/MIN Rate Random Glucose 76 MG/DL Calcium Level 8.5 MG/DL Imaging Chest X-Ray 06/17/16 0600 Signed Impressions: Service Date/Time: Friday, June 17, 2016 04:38 - CONCLUSION: No significant change. Garcia Ramirez MD Chest X-Ray 06/03/16 0600 Signed Impressions: Service Date/Time: Friday, June 03, 2016 03:22 - CONCLUSION: 1. Cardiomegaly with bilateral pulmonary edema. 2. Moderate right pleural effusion. Vishnu Woodward MD Liver Ultrasound 06/03/16 0000 Signed Impressions: Service Date/Time: Friday, June 03, 2016 08:10 - CONCLUSION: 1. There is some sludge in the gallbladder. This can be seen with chronic gallbladder disease. 2. Fatty infiltration of the liver which appears to be enlarged. 3. No mechanical biliary tract obstruction. 4. Splenomegaly. Lázaro Frankel MD Brachial Plexus MRI 06/03/16 0000 Signed Impressions: Service Date/Time: Friday, June 03, 2016 12:42 - CONCLUSION: There is a complex multiloculated soft tissue and cystic mass measuring approximately 5.5 x 6.0 x 7.8 cm involving the subscapularis muscle along the anterior right scapula. The differential considerations include neoplastic disease, infection and hematoma. Recommend a CT scan of the right shoulder to pre-plan for CT-guided aspiration/biopsy of this abnormality. Lázaro Frankel MD Cervical Spine MRI 05/29/16 0000 Signed Impressions: Service Date/Time: Sunday, May 29, 2016 13:51 - CONCLUSION: Limited study but appears normal. Vishnu Woodward MD Brain MRI 05/29/16 0000 Signed Impressions: Service Date/Time: Sunday, May 29, 2016 13:51 - CONCLUSION: 1. Focal chronic ischemic change in the high right frontal parietal convexity stable from previous CT scan. 2. No acute intracranial abnormality. 3. Minimal nonspecific white matter changes. Vishnu Woodward MD Upper Extremity Ultrasound 05/28/16 0000 Signed Impressions: Service Date/Time: Saturday, May 28, 2016 10:16 - CONCLUSION: 1. Negative for deep venous thrombosis. Venous line noted in cephalic, subclavian and internal jugular vein. Horacio Gupta MD Abdomen X-Ray 04/29/16 0000 Signed Impressions: Service Date/Time: Friday, April 29, 2016 07:12 - CONCLUSION: Suspect Dobbhoff tube in the distal stomach. Garcia Lujan MD Chest X-Ray 05/20/16 0000 Signed Impressions: Service Date/Time: Friday, May 20, 2016 03:21 - CONCLUSION: Persistent mid and lower lung areas of consolidation or atelectasis being worse in the right. There has been mild improvement. Garcia Lujan MD Chest X-Ray 05/16/16 0600 Signed Impressions: Service Date/Time: April 03:21 - CONCLUSION: 1. Slight improvement in bilateral airspace disease over the last day. Horacio Gupta MD Chest X-Ray 05/15/16 0600 Signed Impressions: Service Date/Time: Sunday, May 15, 2016 04:31 - CONCLUSION: 1. Slight increase in airspace disease since May 13. Differential diagnosis includes pulmonary edema. Support apparatus unchanged. Horacio Gupta MD Chest X-Ray 05/13/16 0600 Signed Impressions: Service Date/Time: Friday, May 13, 2016 03:26 - CONCLUSION: 1. Stable exam compared with May 12 with bilateral mostly basilar airspace disease. Horacio Gupta MD Chest X-Ray 05/10/16 0600 Signed Impressions: Service Date/Time: Tuesday, May 10, 2016 02:45 - CONCLUSION: Worsening right lower lobe infiltrate. Jeremiah Walton Jr., MD Chest X-Ray 05/09/16 0600 Signed Impressions: Service Date/Time: April 02:52 - CONCLUSION: No significant change has occurred. Bill Zavala MD Chest X-Ray 05/08/16 06 Signed Impressions: Service Date/Time: Sunday, May 08, 2016 04:01 - CONCLUSION: No significant change has occurred. Bill Zavala MD Chest X-Ray 05/05/16 06 Signed Impressions: Service Date/Time: Thursday, May 05, 2016 01:56 - CONCLUSION: Improved aeration bilaterally particularly in the left upper lobe. Tube and catheter are stable. Amador Brock MD Chest X-Ray 05/03/16 0000 Signed Impressions: Service Date/Time: Tuesday, May 03, 2016 06:40 - CONCLUSION: Increasing bilateral diffuse pulmonary infiltrates compared to the prior study. Lázaro Frankel MD Upper Extremity Ultrasound 05/02/16 0000 Signed Impressions: Service Date/Time: April 20:51 - CONCLUSION: No DVT. Garcia Lujna MD Abdomen X-Ray 04/29/16 0000 Signed Impressions: Service Date/Time: Friday, April 29, 2016 07:12 - CONCLUSION: Suspect Dobbhoff tube in the distal stomach. Garcia Lujan MD Physical Exam GENERAL: Awake and alert, NAD SKIN: Warm and moist. No generalized rash. HEENT: [place] conjunctivae. No scleral icterus. Moist mucosa. NECK: Trach, site ok. Supple, no meningeal signs. CARDIOVASCULAR: Regular rate and rhythm. Distant heart sounds. RESPIRATORY: Decreased BS bilaterally. GASTROINTESTINAL: Abdomen soft, morbidly obese, not tender, not distended. MUSCULOSKELETAL: Extremities without clubbing, cyanosis. Has mild pitting edema. Incision is dry NEUROLOGICAL: Awake and following, responding : [place] in place, urine looks clear Assessment & Plan Remarks IMPRESSION E.faecalis and MDR Pseudomonas bacteremia: from PICC line site with fevers: Central line associated blood stream infection(CLABSI). - PICC removed - repeat BC negative - S/P Rx Scapular areas fluid collection, looks more of hematoma than abscess, no C/S sent MDR PSAE PNA, S/P Rx PSAE in urine: likely colonization or translocation of bacteria from PSAE bacteremia. - now with Enterococcus in UC Morbid obesity Sleep apnea Hx PE Anorexia RECOMMENDATION Continue Colistin nebs. - Will only suppress organism with Colistin given prior MDR and clinically stable at this point. - give until 06/27 Monitor progress Weaning per CCM as tolerated Dana Tam MD Jun 24, 2016 13:48
[2016-06-24] MEDS ORDERED: POTASSIUM CHLORIDE 10 MEQ CAP PO ONE (15:30)
[2016-06-24] MEDS: ONDANSETRON HCL 4 MG/2 ML VIAL IV PUSH PRN (16:15)
[2016-06-24] MEDS: ZOLPIDEM TARTRATE 5 MG TAB PO PRN (20:42)
[2016-06-24] MEDS: QUEtiapine FUMARATE 100 MG TAB PO SCH (20:42)
[2016-06-25] VITALS (19 sets, daily range): BP systolic 144–162; BP diastolic 57–102; PULSE 85–93; RESP 19–22; TEMP 98–98.9; O2SAT 82–98
[2016-06-25] MEDS: INSULIN NovoLIN REGULAR SUPPLEMENTAL SCALE SQ SCH ×4 (06:00→18:00)
[2016-06-25] MEDS: LEVOTHYROXINE SODIUM 50 MCG TAB PO SCH (06:03)
[2016-06-25] MEDS: RESP: BUDESONIDE 0.5 MG/2 ML NEB NEB SCH ×2 (07:45→20:14)
[2016-06-25] MEDS: CHLORHEXIDINE 0.12% (ORAL KIT) 15 ML CUP MT SCH ×2 (08:00→20:00)
[2016-06-25] MEDS: RESP: COLISTIN 150 MG VIAL NEB SCH ×2 (08:04→16:10)
[2016-06-25] MEDS: DILTIAZEM HCL 90 MG TAB PO SCH ×4 (08:17→20:00)
[2016-06-25] MEDS: ALLOPURINOL 300 MG TAB PO SCH (08:17)
[2016-06-25] MEDS: MULTIVITAMIN TAB PO SCH (08:18)
[2016-06-25] MEDS: SERTRALINE HCL 100 MG TAB PO SCH (08:18)
[2016-06-25] MEDS: FENOFIBRATE 48 MG TAB PO SCH (08:18)
[2016-06-25] MEDS: FERROUS SULFATE 325 MG (65 MG ELEMENTAL IRON) TAB PO SCH (08:18)
[2016-06-25] MEDS: BUMETANIDE 1 MG TAB PO SCH (08:18)
[2016-06-25] MEDS: PANTOPRAZOLE SOD 20 MG DELAYED RELEASE TAB PO SCH ×2 (08:18→20:00)
[2016-06-25] MEDS: ATORVASTATIN 10 MG TAB PO SCH (08:18)
[2016-06-25] MEDS: MONTELUKAST SODIUM 10 MG TAB PO SCH (08:18)
[2016-06-25] MEDS: ENOXAPARIN SODIUM 150 MG/ML SYRINGE SQ SCH ×2 (08:52→22:37)
[2016-06-25] MEDS: oxyCODONE/ACETAMINOPHEN 10 MG/325 MG TAB PO PRN (08:53)
[2016-06-25] MEDS: SODIUM CHLORIDE 0.9% FLUSH 5 ML FLUSH IVF SCH ×2 (09:00→20:01)
[2016-06-25] MEDS: NYSTATIN 100,000 U/GM PWD 15 GM BTL TOPICAL SCH ×2 (09:00→20:01)
[2016-06-25] MEDS: COLLAGENASE OINT 30 GM TUBE TOP SCH (09:00)
[2016-06-25] MEDS: ONDANSETRON HCL 4 MG/2 ML VIAL IV PUSH PRN (10:27)
[2016-06-25] MEDS: POTASSIUM CHLORIDE 20 MEQ CONTROLLED RELEASE TAB PO SCH ×2 (11:24→22:37)
--- NOTE | 2016-06-25 11:45 | HHI.FPPN ---
Subjective Remarks Patient sitting upright in a chair. He complains of left buttock pain. He is requesting to be moved to the bed. No chest pain, nausea, vomiting, shortness of breath. Objective Vitals Vital Signs Date Time Temp Pulse Resp B/P Pulse Ox O2 Delivery O2 Flow Rate FiO2 06/25/16 10:00 85 06/25/16 08:35 82 T-piece 50 06/25/16 08:00 40 06/25/16 08:00 98.0 90 22 161/77 95 06/25/16 08:00 93 06/25/16 07:45 94 40 06/25/16 06:00 88 06/25/16 04:11 94 40 06/25/16 04:00 40 06/25/16 04:00 98.1 86 19 145/76 93 06/25/16 04:00 86 06/25/16 02:00 86 06/25/16 01:22 95 40 06/25/16 00:00 98.9 85 20 152/70 93 06/25/16 00:00 40 06/25/16 00:00 85 06/24/16 22:30 96 40 06/24/16 22:00 91 06/24/16 20:00 40 06/24/16 20:00 86 06/24/16 20:00 99.3 86 22 147/69 98 06/24/16 19:36 92 40 06/24/16 18:00 87 06/24/16 16:55 97 40 06/24/16 16:48 18 06/24/16 16:44 92 T-piece 50 06/24/16 16:00 40 06/24/16 16:00 85 06/24/16 16:00 98.5 91 22 164/73 94 06/24/16 14:00 90 06/24/16 12:38 98.1 87 20 182/81 91 06/24/16 12:00 40 06/24/16 12:00 85 I/O 06/24/16 06/24/16 06/24/16 06/25/16 06/25/16 06/25/16 07:00 15:00 23:00 07:00 15:00 23:00 Intake Total 105 ml 250 ml 720 ml 480 ml Output Total 725 ml 2000 ml 1010 ml 1000 ml Balance -620 ml -1750 ml -290 ml -520 ml Intake Oral 100 ml 240 ml 720 ml 480 ml IV Total 5 ml 10 ml 0 ml 0 ml Output Urine Total 725 ml 2000 ml 1010 ml 1000 ml # Bowel Movements 2 0 0 Result Diagram: 06/24/1654306/24/16543 Objective Remarks GEN: Morbidly obese male in NAD. DERM: Warm and dry. No erythema or skin breakdown appreciated. Numerous skin folds 2/2 habitus. Bandaged R lateral malleolus c/d/i. Bandaged RUE c/d/i well healing surgical wound. HEENT: Tracheotomy site c/d/i. Poor dentition. CV: Distant heart sounds. RRR. Normal peripheral perfusion. RESP: Transmitted upper respiratory sounds, but otherwise clear to auscultation bilaterally. GI: Abdomen soft, obese, non-tender. +BS. Bruises on lower abdomen. MSK: External rotation of RLE. Patient able to move all his fingers and toes. Patient with intact sensation in all his fingers and toes. NEURO: CN grossly normal. Procedures 04/24- Started ventilation 05/02- Emergency Trach Exchange 06/03- PICC line removed 06/07- Debridement of RUE abscess (Dr. Velazquez), RUE drain placed 06/10- RUE drain removal A/P Assessment and Plan 31y with super morbid obesity, [id number] respiratory failure, tracheostomy seal leak, and HCAP with + urine, blood, wound, sputum cultures s/ p course of abx. Discharge Planning Days to weeks, pending weaning from mechanical ventilation. Ideally, return to rehab on baseline NC oxygen. Consider alf vent facility depending on status. Problem List: (1) On mechanically assisted ventilation Status: Acute Plan: - CPAP with 10 PSV, PEEP 5, oxygen at 2 L/m at FiO2 of 40%, with O2 saturation in the low 90s%. Advance to TC/TP, as tolerated. Weaning per CC. - Pulmicort BID REYES - Duonebs q2h PRN - Singulair 10mg daily - Symbicort bid Impression: Weaning from vent appears to have hit plateau- alf plans for dispo? Acute on chronic hypoxemic respiratory failure secondary to HCAP ( resolved) and tracheostomy leak (s/p exchange 05/02). Mechanical ventilation initiated 04/24. Solumedrol (05/10-06/03) (2) Diarrhea Status: Resolved Plan: - Continue to monitor Impression: Improved. Negative C. diff PCR. Likely secondary to food intolerance or medication side effect. Chronicity unknown. Pt states "always" had, but new ailment to team. (3) Nausea Status: Chronic Plan: Chronic. Ddx: GERD vs psychosomatic vs impaired gastric emptying vs medication side effect. - Zofran 4mg IV q6h PRN nausea - Reglan 10mg ACHS PRN nausea - Protonix 20mg BID REYES - Mg-Al liquid q6h PRN dyspepsia - Ca Carbonate Tums chews 500mg q12h (4) Bacteremia Status: Acute Plan: Infectious disease following. Finished course of abx on 06/18. - Colistin 75mg q8h NEB continue - Acetaminophen 325mg PRN fever - Trend CBC, CMP daily Impression: Pseudomonas aeruginosa and Enterococcus faecalis bacteremia secondary to PICC infection vs HCAP. Repeat BCx 06/06 negative (compared to positive 06/03 culture). However, UCx 06/06 grew +Group D Enterococcus. Pt asymptomatic for urinary symptoms. Has willard placed. Likely colonized. Serial CXR show cardiomegaly w b/l pulm edema and R pleural effusion. Abx History Zosyn 4.5gm IV q6h (04/24 - 04/29) Levaquin 750mg IV q24h (04/24-04/30) Zerbaxa 1.5 g IV q8h (04/29 - 05/07) Vancomycin IV (04/24 - 05/06) Ceftriaxone IV (05/07 - 05/25) Linezolid 600 mg PO BID (05/06 - 05/13) Zosyn 3.375 q6h (06/04- 06/05) - Vancomycin IV daily goal trough 15-20, (06/03 -- 06/18) - Zerbaxa IV q8h (06/05-- 06/18) RESOLVED CONDITIONS THIS HOSPITAL VISIT - Cellulitis of Chest Wall: completed course linezolid (05/06-05/13), per ID recs - Yeast UTI: completed course Diflucan. UCx 05/01: [place] albicans. Repeat UCx 05/05: Proteus Mirabilis - HCAP: s/p multiple abx (5) Hematoma Status: Acute Plan: - Daily dressing changes with xeroform and primapore - Daily PT/OT, as tolerated. PT targeting RUE weakness. Initial Impression: Hematoma contributing to RUE weakness x4 weeks. S/p I&D by Dr. Velazquez (06/07/16). Small hematoma found during procedure inconsistent with 6cm x 6cm x 8cm abscess suggested by MRI brachial plexus. Ddx for RUE weakness: hematoma vs C6/C7 neuropathy. L hemispheric pathology, and seizure ruled out ( see below). Unable to tolerate EMG. Imaging: - US negative for DVT (05/28) - MRI brain (04/28) no acute intracranial process - MRI C-spine (05/29): grossly wnl - EEG (05/29): diffuse mild encephalopathy vs normal Stage 2 sleep - MRI brachial plexus (06/03): "Complex multiloculated soft tissue and cystic mass 5.5 x 6 x 7.8 cm involving subscapularis muscle along anterior R scapula - Pathology report (06/07): fragments of blood clot admixed with few minute fragments of adipose and skeletal muscle tissue (6) Paroxysmal a-fib Status: Chronic Plan: -Sinus rhyth, regular rate at this time - Cardizem/diltiazem 90mg PO qid - Xarelto 20mg PO qd, per critical care (7) Hypertension Status: Chronic Plan: - Bumetanide 1mg PO qd - Cardiazem 90mg QID - Labetalol 10mg IV PRN SBP 160+ (8) CHF (congestive heart failure) Status: Chronic Plan: Suspected HF with poor EF, though unable to confirm via ECHO (04/25) due to poor imaging. BNP elevated on admission, downtrended. - Bumex 1mg PO daily + 40 KCl BID - 1.5L fluid restriction, monitor I/Os, monitor renal function, peripheral edema (9) Stable medical conditions Status: Chronic Plan: NORMOCYTIC ANEMIA - Ferrous sulfate 325mg PO daily - Multivitamin 1 tab PO daily HYPERLIPIDEMIA -Atorvastatin 10mg daily - Tricor 48mg daily MDD: Pt reports stable mood; some anhedonia suspected. Previously, refusing meals, shower, PT - Sertraline 100 mg PO daily - Seroquel 100mg HS INSOMNIA -Zolpidem 5mg HS PRN GOUT -Allopurinol 300mg daily HYPOTHYROIDISM 08/2015- TSH low, free T4 grossly wnl (05/27/16) -Synthroid 50 mcg PO daily FUNGAL INFECTION -Nystatin powder and miconazole creme to skin folds MORBID OBESITY WITH BMI 60-69 -see above plan for mechanical ventilation PAIN - Percocet 10-325 mg PO q6h - Morphine 4mg IVP q6h (10) Nutrition, metabolism, and development symptoms Status: Acute Plan: FEN: Fluids: PO (Limited 1.5L/day) Electrolytes: +40KCl BID. Chronically hypokalemic, replete per protocol Nutrition: 2Kcal heart healthy diet. Transitioned to oral feeds (05/29). Wt: Admission: 480 lbs PPX GI ppx: Protonix 20mg BID DVT ppx: Lovenox 150mg BID Pain: Oxycodone 7.5/325 q4h PRN Bowel: Senna 1 tab HS PRN dw: Dr. Conner Problem Qualifiers (1) Hypertension: Qualified Code: I10 - Essential hypertension (2) CHF (congestive heart failure): Qualified Code: I50.9 - Acute on chronic congestive heart failure, unspecified congestive heart failure type Abel Conner MD R2 Jun 25, 2016 11:45
[2016-06-25] MEDS: ACETAMINOPHEN 325 MG TAB PO PRN (12:29)
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
[2016-06-25] MEDS: ZOLPIDEM TARTRATE 5 MG TAB PO PRN (20:00)
[2016-06-25] MEDS: QUEtiapine FUMARATE 100 MG TAB PO SCH (20:00)
[2016-06-25] MEDS: RESP: ALBUTEROL 2.5 MG/IPRATROPIUM 0.5 MG NEB (PRN) NEB (20:14)
[2016-06-25] MEDS: MICONAZOLE NITRATE 2% CREAM 15 GM TOP SCH (21:00)
[2016-06-26] VITALS (17 sets, daily range): BP systolic 94–165; BP diastolic 63–94; PULSE 76–92; RESP 18–25; TEMP 98–98.5; O2SAT 92–100
[2016-06-26] MEDS: RESP: COLISTIN 150 MG VIAL NEB SCH ×4 (01:01→23:36)
[2016-06-26] MEDS: LEVOTHYROXINE SODIUM 50 MCG TAB PO SCH (05:34)
[2016-06-26] MEDS: INSULIN NovoLIN REGULAR SUPPLEMENTAL SCALE SQ SCH ×4 (05:35→18:00)
[2016-06-26] MEDS: RESP: BUDESONIDE 0.5 MG/2 ML NEB NEB SCH ×2 (07:51→19:22)
[2016-06-26] MEDS: CHLORHEXIDINE 0.12% (ORAL KIT) 15 ML CUP MT SCH ×2 (08:00→20:36)
--- NOTE | 2016-06-26 08:47 | HHI.CCPN ---
Subjective Remarks/Hospital Course 31 year old morbidly obese (BMI 68) male with chronic respiratory failure s/p tracheostomy 4 years ago, atrial fibrillation and pulmonary embolism on Xarelto , COPD, CHF and h/o HTN. He presented from [facility] with low oxygen saturation apparently his oxygen saturation was 82% on RA. He was placed back on 6L of oxygen via his trach mask and given a breathing treatment, initially improved however he started drifting back to low 80s again. Chest x-ray showed bibasilar infiltrates and pulmonary edema. Patient was admitted to the [facility] and was started on IV steroids IV vancomycin and Zosyn and Levaquin for healthcare associated pneumonia. After starting ACV, patient was more awake but there was a significant amount of air leak around his tracheostomy. Patient has had a Shiley 6.0 Proximal XLT, but the airline pilot balloon had been cut off. 05/02 the patient became acutely hypoxemic with a large cuff leak, underwent emergency trach exchange at bedside by Dr. Macias. FiO2 65% PEEP 14 05/13 Patient is on ventilator via trach, on Fentanyl infusion however he is awake and alert. On PRVC with FIO2 40%. Afebrile. 05/14 No acute events overnight. Tmax 99.8. Patient is awake, alert on ventilator via trach still requiring increase O2. On PRVC with PEEP: 10 and FIO2 70%. 05/15 Pt acutely desaturated after he was found. Saturation down to 70% on 100 % oxygen. Bag and mask ventilation carried out, with eventual improvement on oxygen saturation to 85%. Patient was placed on PC/AC mode of ventilation, with PEEP of 15 and instructed to pressure of 30. Eventually oxygen saturation improved to 95%. Lasix him today as the chest x-ray from today shows increasing bilateral infiltrate and pulmonary edema. Sputum culture will be sent 05/16 Patient is on Fentanyl and Diprivan infusion but awake and alert. Afebrile. On PC/AC with PEEP:15, IP: 22, IT:1.3 and FIO2 50% 05/17 Patient is off Diprivan and remains on Fentanyl infusion for sedation. On PC/AC with PEEP: down 10 and FIO2 40%. Afebrile. 05/18 Patient remains on ventilator via trach on PC/AC with PEEP:12, FIO2 40%, IP:22, IT:1.0. On Fentanyl infusion 05/19 No acute events overnight. On Fentanyl infusion but awake and alert. Afebrile. 05/20 Tolerating C Pap 17/12 FIO2 40, sats 98%. RSBI in 20s, appears can be weaned further. Afebrile. Speech therapy evaluated and ok for regular diet. Starting with full liquid. 05/21 Will wean PSV to 15/10. Tolerated full liquids, will advance to regular diet per speech recs. 05/22 On PSV 15/10 FIO2 40 with sats 92%. Smiling today. Glad to be eating regular food again. 05/23 No acute events overnight. Remains on CPAP with PS 15, PEEP:10 and FIO2 40 %. Afebrile. Off Fentanyl drip. Afebrile. Awake and alert. 05/24 Patient is on CPAP 06/06 with 40% FIO2. Afebrile. Awake and alert, on no sedation. 05/25 No acute events overnight. Patient was placed back on PC/AC overnight. Tolerated CPAP trials during day yesterday. Awake and alert. On no drips. Afebrile. 05/26 Afebrile. Tmax 98.6. Today the patient complained of nausea requiring Zofran. The patient has a lack of an appetite, with noted hypoglycemia early this a.m. blood glucose level 69. Patient tolerating CPAP well greater than 12 hours in the last 24 hours. 05/27 The patient tolerated CPAP for over 36 hours, O2 sat a knee 94% on FIO2 40 %. The patient had an increase in appetite. The patient continues on full liquid diet. 05/28 The patient declined physical therapy treatment, yesterday and also overnight declined to be moved by nursing staff. The patient refused dinner last evening, of note patient was reevaluated by speech therapy and can consume a heart healthy diet with thin liquids. The patient continues on physical therapy for strengthening exercises of all extremities specifically noted right upper extremity continues to be weak with gross fibrillations noted in hand and forearm. 05/29 Afebrile. No change in right upper extremity weakness. The patient was seen by neurology yesterday plan for MRI today if possible in hospital MRI, and EMG studies. No complaints overnight. Patient continues to refuse to have activities performed, movement in bed. The patient appears to be depressed, psychiatry consulted. 05/30: Patient alert awake on CPAP. Following commands. Psych agrees the patient is depressed. MRI brain no acute findings 05/31: Awake alert. on PS 15/8. EMG could not be completed due to patient becoming anxious. Otherwise no acute events reported overnight 06/01: Remains PS from 11/02. Right upper extremity weakness persists. EMG to be repeated on Friday. Will need MRI of the brachial plexus. Chest x-ray is unchanged 06/02: States that "not feeling well". Febrile to 101.5. White count increasing but still within the normal range. Pancultured. We'll request ID reevaluation. 06/03: Resting in bed on C Pap/pressure support via tracheostomy. One out of 2 sets of blood cultures sent on 06/02 positive for gram-positive cocci. 06/04: Resting in bed on mechanical ventilation via tracheostomy. Afebrile overnight. MRI brachial plexus (06/03) revealed a collection near the right subscapularis muscle, possibly an abscess. Discussed with ID, orthopedics Dr. Velazquez consulted. I discussed the case with Dr. Velazquez this morning who feels this is probably an abscess however would be difficult to access surgically and he plans to set up percutaneous drainage by interventional radiology. 06/05: Resting in bed on mechanical ventilation via tracheostomy. Remains afebrile. Reportedly IR cannot do percutaneous drainage of collection involving right subscapularis muscle. 06/06: Resting in bed on mechanical ventilation via tracheostomy. Can actually speak around the trach. Remains afebrile. Dr. Velazquez evaluated patient and is scheduling surgery for drainage of fluid collection involving the right subscapularis muscle. 06/07: Resting in bed on mechanical ventilation via tracheostomy. Awaiting surgery today. 06/08: Status post I&D of collection near right shoulder/subscapularis on 06/[address] Velazquez. This morning patient is awake and alert complained of some pain at the surgical site. Remains on mechanical ventilation on C Pap/pressure support. 06/09: Sleeping, arousable. On mechanical ventilation with C Pap/pressure support overnight. Labs pending 06/10 No acute events overnight. On CPAP with PS 12, PEEP: 8, FIO2 40%. Afebrile. 06/11 Patient remains on CPAP with PS 10, PEEP: 8 and FIO2 40%. Afebrile. 06/12: No acute events overnight. Remains on CPAP 10/5. No specific complaints 06/13: Tolerating C Pap 10 over 5. Awake and alert following commands. Hemoglobin dropped from 8.6-7.1, no obvious bleeding. Sodium 140-149. Will give 1 unit of PRBC with 1 mg IV Bumex 06/14 No acute events overnight. On CPAP with PS 10, PEEP:5 and FIO2 50%. Afebrile. 06/15 No acute events overnight. Remains on CPAP 10/5 with 40% FIO2. Afebrile. 06/16 Patient remains on ventilator via trach on CPAP with PS 10, PEEP:5 and FIO2 40%. 06/17: Resting in bed on mechanical ventilation via tracheostomy. Feeling nauseous. 06/18: OOB in reclining chair. Reporting low back and leg pain that is positional. Continued nausea, denies emesis. CPAP w PS 5 FIO2 40%. Will attempt Tpiece trial today. Discontinue Vanc + Zerbaxa today per ID 06/19: No acute events overnight. Afebrile. HTN to 160/80. CPAP with PS 10. PEEP 10 FIO2 45. Failed Tpiece trial yesterday- desaturated to mid 70s. Denies SOB/CP. Nausea is less than before. Bed is broken and patient would like the mattress to "rotate". Per nursing, they are working to fix it. 06/20: No acute events overnight. Afebrile. HTN to 145/70. CPAP with PEEP 10 FIO2 45, with saturation 93=94%. Pt has no acute complaints. Denies SOB/CP/ Nausea. Didn't know why he threw up during PT yesterday. Denies pain. Still having diarrhea (chronic years in duration issue). Was eating Pringles in bed. Per nursing, does not eat hospital food- waits for mother to bring him food. He was counseled to eat the hospital food which is healthier for him and that he needs to stop eating food brought in by his mother. 06/21: Remains on mechanical ventilation, CPAP with pressure support. Subjective: 06/22: On mechanical ventilation on C Pap with pressure support. Denies any nausea or abdominal pain. Appears comfortable. 06/23: Resting in bed on mechanical ventilation with C Pap/pressure support +10/ +5. Denies any shortness of breath denies any abdominal pain or nausea currently. 06/24: Refusing to get OOB with physical therapy today. I had a long discussion with the patient about the fact that he has been inpatient for months now and he is severely deconditioned. He must get out of bed with PT to clinically improve, and deconditioning is a major factor in his chronic respiratory failure. He denies chest pain or SOB. does endorse some nausea today. 06/25: tolerated 4 hours OOB yesterday with 4 hours of trach collar. plan to go 6 hours today. 06/26: tolerated OOB to chair 5 hours yesterday but only 1.5hr of trach collar due to hypoxia. Objective Vital Signs Date Time Temp Pulse Resp B/P Pulse Ox O2 Delivery O2 Flow Rate FiO2 06/26/16 07:52 92 40 06/26/16 06:00 89 06/26/16 04:00 98.5 25 140/67 06/25/16 12:27 T-piece Intake and Output 06/25/16 06/25/16 06/25/16 07:59 15:59 23:59 Intake Total 480 ml 360 ml 440 ml Output Total 1000 ml 600 ml 950 ml Balance -520 ml -240 ml -510 ml Result Diagram: 06/24/16 0544 06/24/16 0544 Imaging MRI 06/20/16: No official reading. Preliminary reading suggests periventricular white matter changes at basal ganglia and no evidence ischemia CXR 06/17/16: Poor penetration. Rotated image. Unable to visualize lung bases. Possible atelectasis vs infiltrate R worse than L. Objective Remarks GEN: 31yo on ventilator via trach, awakens and follows commands. Super morbidly obese. SKIN: Warm and dry. HEAD: Normocephalic. EYES: No scleral icterus. No injection or drainage. NECK: obese with large neck circumference, trachea midline. Shiley 6.0 Proximal XLT, (new trach placed 05/02/16) CV: normal rate, regular rhythm. RESP: On mechanical ventilation, Breath sounds equal bilaterally. Distant secondary to habitus. GI: Abdomen soft, obese, non-tender, nondistended. Multiple noted areas of ecchymotic bruising secondary to subcutaneous injections. MSK: No cyanosis, or edema. Pedal edema. Neuro: Arousable. Moves all extremities with focal deficit right upper extremity. RASS 0. A/P Assessment and Plan ASSESSMENT Acute hypercapnic and hypoxemic respiratory failure (Shiley 6.0 Proximal XLT) CO2 narcosis (resolved) Acute worsening of hypoxia due to lung de-recruitment (05/15/16, resolved) Healthcare associated pneumonia MDR Pseudomonas Enterococcal bacteremia Pseudomonas bacteremia Collection near right subscapularis muscle(On MRI 06/03) - hematoma status post I &D on 06/07 Sepsis CHF exacerbation Tracheostomy airline pilot balloon damage -status post exchange with new Shiley 6.0 Proximal XLT 05/02/16 Probable right brachial plexus injury COPD/obesity hypoventilation syndrome Morbid Obesity BMI 60-69 History of pulmonary embolism 4 years ago Chronic atrial fibrillation Anxiety CHF (Echo 2013 EF 40-45%; ECHO 08/2015 showing a grossly normal systolic function) Hypertension Hypothyroidism Depression PLAN NEURO: CO2 narcosis - resolved Critical care polyneuropathy Right upper extremity weakness 05/21-possibly secondary to nerve compression, C6 , C7 (brachial plexus) Pain Anxiety Depression -EMG/ NCV could not be completed on 05/[address] Castillo -Clinically has right brachial plexus involvement. MRI of brachial plexus on 06/03 revealed collection involving right subscapularis muscle- s/p I & D on 06/[address] Velazquez. -Neurology Dr. Cheek-MRI brain, C spine no acute findings. -Venous Doppler RUE 05/28-negative for DVT -Continued PT daily, with strengthening exercise - I discussed again with patient that participating in PT is necessary to his medical care. -Continue Seroquel 100mg HS. Continue Zoloft 100mg daily -Decreased pain reg: Tylenol 625mg pain 1-6, Percocet 10/325 pain 7-10 RESP: Acute hypercapnic and hypoxemic respiratory failure Acute lung derecruitment 05/15 with hypoxia Healthcare associated pneumonia Tracheostomy airline pilot balloon damage (Shiley 6.0 Proximal XLT) s/p new trach placement 05/02 Chronic Respiratory Failure s/p Tracheostomy 4 years ago COPD/obesity hypoventilation syndrome History of pulmonary embolism 4 years ago Leukocytosis-resolved Pulmonary edema - s/p Bronchoscopy 05/11 -follow up on BAL results negative - Pulm toilet, trach care - Continue with vent support keep sat >88% on CPAP 10, 45% FIO2. Attempt TP/TC as tolerated. Will try again today. I think there is a strong volitional component to his failing t-piece because he states he feels tired before objective evidence of increased work of breathing. - Continue DuoNeb q6h REYES + q2h PRN, Pulmicort BID, Singulair 10mg daily CV: CHF exacerbation Pulmonary edema Paroxysmal atrial fibrillation (chronic) Hyperlipidemia -Monitor HR and BP keep MAP>65mmHg -Cardizem 90mg QID, Bumex 1mg daily PO, Lipitor 10g daily, TriCor 40mg by mouth daily -Therapeutic Lovenox 150 mg twice a day GI: Super morbid obesity with BMI of 64 Nausea GERD -Regular diet, thin liquids per speech recs -Liver US 06/03: Fatty liver, sludge in gall bladder, splenomegaly, no mechanical obstruction of bile duct noted. -Protonix 20mg BID. Zofran prn for nausea. -Multivitamin daily -Bringing in food, per nurses. Not adherent to hospital diet. Consider call to family to restrict them from bringing food. FEN/RENAL: Hypokalemia Metabolic alkalosis - Monitor renal function , I/O, electrolytes replacement per protocol. - Bumex 1mg PO daily, KCL 40meq Q12 ID: Healthcare associated pneumonia Sepsis New fever MDRO Cellulitis right arm-resolved Leukocytosis-resolved Enterococcal faecalis bacteremia, Pseudomonas bacteremia (06/02, 06/03) -Wound culture Pseudomonas MDR 04/27 -Sputum culture-Pseudomonas MDR- 04/27 -Urine cx: Proteus Mirabilis 05/05 -Sputum cx: Providencia 05/05 -Bronchoscopy and re-culture 05/10- NG -Wound cx: Proteus, Pseudomonas, Group D Enterococcus- 05/13 -Sputum cx- NG- 05/15 -Blood culture: aerobic and anaerobic bottles - enterococcus faecalis, pseudomonas aeruginosa 06/02, 06/03 -Urine culture: pseudomonas aeruginosa- 06/02 -Wound culture: pseudomonas aeruginosa- 06/02 -Sputum culture: Pseudomonas- 06/02 -Dr. Velazquez performed drainage of collection surgically on 06/07- likely hematoma -Stopped IV Vanc and Zerbaxa on 06/18. (MDR pseudomonas in blood cultures) - Remove viral to RUE per Ortho or tomorrow (2 weeks s/p surgery) - Continue colistin nebs until 06/27, per ID HEME: History of PE on chronic anticoagulation with Xarelto Iron deficiency anemia and anemia of critical illness. -Monitor CBC, transfused 1U PRBC 06/13 -Xarelto for PE 4 yrs ago. -Xarelto.held, On therapeutic Lovenox 150 mg twice a day -Ferrous sulfate 300 mg/q day ENDO: Hypothyroidism -On SSI (Low scale) -Continue levothyroxine 50 mcg po daily -Free T4 1.52 PROPH: -Lower extremity SCDs (L leg only, R ankle cellulitis), Lovenox 150 mg twice a day GI prophylaxis- Protonix 20mg BID LINES: - PICC line RUE- No DVT on US 05/02 - removed on 06/03. - Milan catheter: will keep today while on lasix. Out of bed with assistance. PT out of bed with vent. OT. Dispo: Once we can get him off the ventilator, he can go back to his rehab facility. Until then, he remains in the ICU. Fletcher Brown MD Jun 26, 2016 08:47
[2016-06-26] MEDS: SODIUM CHLORIDE 0.9% FLUSH 5 ML FLUSH IVF SCH ×2 (09:00→20:36)
[2016-06-26] MEDS: COLLAGENASE OINT 30 GM TUBE TOP SCH (09:00)
[2016-06-26] MEDS: NYSTATIN 100,000 U/GM PWD 15 GM BTL TOPICAL SCH ×2 (09:00→20:38)
[2016-06-26] MEDS: FENOFIBRATE 48 MG TAB PO SCH (09:00)
[2016-06-26] MEDS: MICONAZOLE NITRATE 2% CREAM 15 GM TOP SCH ×2 (09:00→20:37)
[2016-06-26] MEDS: FERROUS SULFATE 325 MG (65 MG ELEMENTAL IRON) TAB PO SCH (10:09)
[2016-06-26] MEDS: BUMETANIDE 1 MG TAB PO SCH (10:09)
[2016-06-26] MEDS: SERTRALINE HCL 100 MG TAB PO SCH (10:09)
[2016-06-26] MEDS: ALLOPURINOL 300 MG TAB PO SCH (10:10)
[2016-06-26] MEDS: MONTELUKAST SODIUM 10 MG TAB PO SCH (10:10)
[2016-06-26] MEDS: MULTIVITAMIN TAB PO SCH (10:10)
[2016-06-26] MEDS: POTASSIUM CHLORIDE 20 MEQ CONTROLLED RELEASE TAB PO SCH ×2 (10:10→22:18)
[2016-06-26] MEDS: PANTOPRAZOLE SOD 20 MG DELAYED RELEASE TAB PO SCH ×2 (10:10→20:37)
[2016-06-26] MEDS: ATORVASTATIN 10 MG TAB PO SCH (10:10)
[2016-06-26] MEDS: ENOXAPARIN SODIUM 150 MG/ML SYRINGE SQ SCH ×2 (10:11→22:18)
[2016-06-26] MEDS: DILTIAZEM HCL 90 MG TAB PO SCH ×4 (10:11→20:37)
--- NOTE | 2016-06-26 11:25 | PD.ORT.PN ---
Subjective Subjective Remarks pain controlled no new complaints Objective Vitals Vital Signs Date Time Temp Pulse Resp B/P Pulse Ox O2 Delivery O2 Flow Rate FiO2 06/26/16 10:00 92 06/26/16 08:00 40 06/26/16 08:00 92 06/26/16 07:52 92 40 06/26/16 06:00 89 06/26/16 04:13 100 40 06/26/16 04:00 92 06/26/16 04:00 98.5 92 25 140/67 92 06/26/16 04:00 40 06/26/16 02:00 90 06/26/16 00:52 92 40 06/26/16 00:00 89 06/26/16 00:00 40 06/26/16 00:00 98.4 89 18 139/63 92 06/25/16 22:00 86 06/25/16 20:26 97 40 06/25/16 20:00 98.3 85 19 151/74 96 06/25/16 20:00 40 06/25/16 20:00 85 06/25/16 18:00 85 06/25/16 16:10 95 40 06/25/16 16:00 40 06/25/16 16:00 98.0 85 20 144/57 98 06/25/16 16:00 85 06/25/16 14:00 95 40 06/25/16 14:00 85 06/25/16 12:27 95 T-piece 50 06/25/16 12:00 85 06/25/16 12:00 98.2 87 20 162/102 95 I/O 06/25/16 06/25/16 06/25/16 06/26/16 06/26/16 06/26/16 07:00 15:00 23:00 07:00 15:00 23:00 Intake Total 480 ml 360 ml 440 ml 540 ml Output Total 1000 ml 600 ml 950 ml 450 ml Balance -520 ml -240 ml -510 ml 90 ml Intake Oral 480 ml 360 ml 440 ml 540 ml IV Total 0 ml 0 ml 0 ml Output Urine Total 1000 ml 600 ml 950 ml 450 ml # Bowel Movements 0 2 0 0 Result Diagram: 06/24/16 0544 06/24/16 0544 Objective Remarks RUE: dressing clean, dry and intact. incision healing well neg sensation over median nerve, sensation over ulnar and radial nerve partial extension of fingers, nearly able to make a fist. active extension of elbow, no flexion of elbow Assessment & Plan Assessment and Plan 1) Right Shoulder I&D - DC dressing changes R UE on 06/28/16 -continue Abx PT for ROM SYDNEY CHRIS PA-C Jun 26, 2016 11:25
[2016-06-26] MEDS: QUEtiapine FUMARATE 100 MG TAB PO SCH (20:37)
[2016-06-26] MEDS: ZOLPIDEM TARTRATE 5 MG TAB PO PRN (20:38)
[2016-06-27] VITALS (18 sets, daily range): BP systolic 129–180; BP diastolic 63–96; PULSE 75–96; RESP 20–24; TEMP 98–99; O2SAT 92–98
[2016-06-27] MEDS: LEVOTHYROXINE SODIUM 50 MCG TAB PO SCH (05:56)
[2016-06-27] MEDS: INSULIN NovoLIN REGULAR SUPPLEMENTAL SCALE SQ SCH ×4 (06:00→18:00)
[2016-06-27 06:06] LABS: HEMATOCRIT 28.9 % (39.0-51.0); MEAN CELL VOLUME 82.5 FL (80.0-100.0); MEAN CORPUSCULAR HEMOGLOBIN 26.5 PG (27.0-34.0); MEAN CORPUSCULAR HGB CONC 32.1 % (32.0-36.0); PLATELET COUNT 270 TH/MM3 (150-450); RED CELL DISTRIBUTION WIDTH 24.4 % (11.6-17.2); REVIEW FLAG FINAL; WHITE BLOOD COUNT 11.7 TH/MM3 (4.0-11.0)
[2016-06-27 06:26] LABS: BICARBONATE 35.9 MEQ/L (21.0-32.0); POTASSIUM 3.7 MEQ/L (3.5-5.1)
[2016-06-27] MEDS: SERTRALINE HCL 100 MG TAB PO SCH (07:42)
[2016-06-27] MEDS: ATORVASTATIN 10 MG TAB PO SCH (07:42)
[2016-06-27] MEDS: FERROUS SULFATE 325 MG (65 MG ELEMENTAL IRON) TAB PO SCH (07:43)
[2016-06-27] MEDS: MULTIVITAMIN TAB PO SCH (07:43)
[2016-06-27] MEDS: PANTOPRAZOLE SOD 20 MG DELAYED RELEASE TAB PO SCH ×2 (07:43→20:40)
[2016-06-27] MEDS: MONTELUKAST SODIUM 10 MG TAB PO SCH (07:43)
[2016-06-27] MEDS: DILTIAZEM HCL 90 MG TAB PO SCH ×4 (07:43→20:40)
[2016-06-27] MEDS: ALLOPURINOL 300 MG TAB PO SCH (07:43)
[2016-06-27] MEDS: BUMETANIDE 1 MG TAB PO SCH (07:44)
[2016-06-27] MEDS: CHLORHEXIDINE 0.12% (ORAL KIT) 15 ML CUP MT SCH ×2 (07:45→20:39)
[2016-06-27] MEDS: RESP: BUDESONIDE 0.5 MG/2 ML NEB NEB SCH ×2 (08:09→19:38)
[2016-06-27] MEDS: RESP: COLISTIN 150 MG VIAL NEB SCH ×2 (08:09→17:12)
[2016-06-27] MEDS: MICONAZOLE NITRATE 2% CREAM 15 GM TOP SCH ×2 (09:00→20:41)
[2016-06-27] MEDS: FENOFIBRATE 48 MG TAB PO SCH (09:00)
[2016-06-27] MEDS: NYSTATIN 100,000 U/GM PWD 15 GM BTL TOPICAL SCH ×2 (09:00→20:42)
[2016-06-27] MEDS: SODIUM CHLORIDE 0.9% FLUSH 5 ML FLUSH IVF SCH ×2 (09:00→20:39)
[2016-06-27] MEDS: COLLAGENASE OINT 30 GM TUBE TOP SCH (09:00)
--- NOTE | 2016-06-27 09:11 | HHI.FPPN ---
Subjective Remarks No acute events overnight. Pulse in the 90s, pulse ox in the low 90s. Patient denies any chest pain, shortness of breath, diarrhea. His only complaint is that he did not want to transfer from bed to chair with physical therapy. Objective Vitals Vital Signs Date Time Temp Pulse Resp B/P Pulse Ox O2 Delivery O2 Flow Rate FiO2 06/27/16 08:18 94 45 06/27/16 06:00 92 06/27/16 04:39 98 45 06/27/16 04:00 98.5 89 24 133/68 93 06/27/16 04:00 89 06/27/16 04:00 45 06/27/16 02:00 86 06/27/16 01:18 92 45 06/27/16 00:00 90 06/27/16 00:00 45 06/27/16 00:00 98.2 90 20 129/63 93 06/26/16 22:03 93 45 06/26/16 22:00 81 06/26/16 20:00 91 06/26/16 20:00 98.3 89 22 133/67 97 06/26/16 20:00 45 06/26/16 19:26 94 45 06/26/16 18:00 40 06/26/16 18:00 92 06/26/16 16:00 92 06/26/16 16:00 98.4 76 24 94/69 98 06/26/16 14:00 92 06/26/16 12:00 98.5 76 20 138/94 94 06/26/16 12:00 92 06/26/16 10:00 92 I/O 06/26/16 06/26/16 06/26/16 06/27/16 06/27/16 06/27/16 07:00 15:00 23:00 07:00 15:00 23:00 Intake Total 540 ml 480 ml 480 ml 240 ml Output Total 450 ml 1400 ml 400 ml 700 ml Balance 90 ml -920 ml 80 ml -460 ml Intake Oral 540 ml 480 ml 480 ml 240 ml IV Total 0 ml Output Urine Total 450 ml 1400 ml 400 ml 700 ml # Bowel Movements 0 2 0 0 Result Diagram: 06/27/16 0453 06/27/16 0453 Objective Remarks GEN: Morbidly obese male in NAD. DERM: Warm and dry. No erythema or skin breakdown appreciated. Numerous skin folds 2/2 habitus. Bandaged R lateral malleolus c/d/i. Bandaged RUE c/d/i well healing surgical wound. HEENT: Tracheotomy site c/d/i. Poor dentition. CV: Distant heart sounds. RRR. Normal peripheral perfusion. RESP: Transmitted upper respiratory sounds, but otherwise clear to auscultation bilaterally. GI: Abdomen soft, obese, non-tender. +BS. Bruises on lower abdomen. MSK: External rotation of RLE. Patient able to move all his fingers and toes. Patient with intact sensation in all his fingers and toes. NEURO: CN grossly normal. Procedures 04/24- Started ventilation 05/02- Emergency Trach Exchange 06/03- PICC line removed 06/07- Debridement of RUE abscess (Dr. Velazquez), RUE drain placed 06/10- RUE drain removal A/P Assessment and Plan 31y with super morbid obesity, [id number] respiratory failure, tracheostomy seal leak, and HCAP with + urine, blood, wound, sputum cultures s/ p course of abx. Discharge Planning Days to weeks, pending weaning from mechanical ventilation. Ideally, return to rehab on baseline NC oxygen. Consider half-way vent facility depending on status. Problem List: (1) On mechanically assisted ventilation Status: Acute Plan: - CPAP with 10 PSV, PEEP 5, oxygen at 2 L/m at FiO2 of 45%, with O2 saturation in the low 90s%. Advance to TC/TP, as tolerated. Weaning per CC. - Pulmicort BID REYES - Duonebs q2h PRN - Singulair 10mg daily - Symbicort bid Impression: Weaning from vent appears to have hit plateau- half-way plans for dispo? Acute on chronic hypoxemic respiratory failure secondary to HCAP ( resolved) and tracheostomy leak (s/p exchange 05/02). Mechanical ventilation initiated 04/24. Solumedrol (05/10-06/03) (2) Diarrhea Status: Resolved Plan: - Continue to monitor Impression: Improved. Negative C. diff PCR. Likely secondary to food intolerance or medication side effect. Chronicity unknown. Pt states "always" had, but new ailment to team. (3) Nausea Status: Chronic Plan: Chronic. Ddx: GERD vs psychosomatic vs impaired gastric emptying vs medication side effect. - Zofran 4mg IV q6h PRN nausea - Reglan 10mg ACHS PRN nausea - Protonix 20mg BID REYES - Mg-Al liquid q6h PRN dyspepsia - Ca Carbonate Tums chews 500mg q12h (4) Bacteremia Status: Acute Plan: Infectious disease following. Finished course of abx on 06/18. - Colistin 75mg q8h NEB continue - Acetaminophen 325mg PRN fever - Trend CBC, CMP daily Impression: Pseudomonas aeruginosa and Enterococcus faecalis bacteremia secondary to PICC infection vs HCAP. Repeat BCx 06/06 negative (compared to positive 06/03 culture). However, UCx 06/06 grew +Group D Enterococcus. Pt asymptomatic for urinary symptoms. Has willard placed. Likely colonized. Serial CXR show cardiomegaly w b/l pulm edema and R pleural effusion. Abx History Zosyn 4.5gm IV q6h (04/24 - 04/29) Levaquin 750mg IV q24h (04/24-04/30) Zerbaxa 1.5 g IV q8h (04/29 - 05/07) Vancomycin IV (04/24 - 05/06) Ceftriaxone IV (05/07 - 05/25) Linezolid 600 mg PO BID (05/06 - 05/13) Zosyn 3.375 q6h (06/04- 06/05) - Vancomycin IV daily goal trough 15-20, (06/03 -- 06/18) - Zerbaxa IV q8h (06/05-- 06/18) RESOLVED CONDITIONS THIS HOSPITAL VISIT - Cellulitis of Chest Wall: completed course linezolid (05/06-05/13), per ID recs - Yeast UTI: completed course Diflucan. UCx 05/01: Dionne albicans. Repeat UCx 05/05: Proteus Mirabilis - HCAP: s/p multiple abx (5) Hematoma Status: Acute Plan: - Daily dressing changes with xeroform and primapore - Daily PT/OT, as tolerated. PT targeting RUE weakness. Initial Impression: Hematoma contributing to RUE weakness x4 weeks. S/p I&D by Dr. Velazquez (06/07/16). Small hematoma found during procedure inconsistent with 6cm x 6cm x 8cm abscess suggested by MRI brachial plexus. Ddx for RUE weakness: hematoma vs C6/C7 neuropathy. L hemispheric pathology, and seizure ruled out ( see below). Unable to tolerate EMG. Imaging: - US negative for DVT (05/28) - MRI brain (04/28) no acute intracranial process - MRI C-spine (05/29): grossly wnl - EEG (05/29): diffuse mild encephalopathy vs normal Stage 2 sleep - MRI brachial plexus (06/03): "Complex multiloculated soft tissue and cystic mass 5.5 x 6 x 7.8 cm involving subscapularis muscle along anterior R scapula - Pathology report (06/07): fragments of blood clot admixed with few minute fragments of adipose and skeletal muscle tissue (6) Paroxysmal a-fib Status: Chronic Plan: -Sinus rhyth, regular rate at this time - Cardizem/diltiazem 90mg PO qid - Xarelto 20mg PO qd, per critical care (7) Hypertension Status: Chronic Plan: - Bumetanide 1mg PO qd - Cardiazem 90mg QID - Labetalol 10mg IV PRN SBP 160+ (8) CHF (congestive heart failure) Status: Chronic Plan: Suspected HF with poor EF, though unable to confirm via ECHO (04/25) due to poor imaging. BNP elevated on admission, downtrended. - Bumex 1mg PO daily + 40 KCl BID - 1.5L fluid restriction, monitor I/Os, monitor renal function, peripheral edema (9) Stable medical conditions Status: Chronic Plan: NORMOCYTIC ANEMIA - Ferrous sulfate 325mg PO daily - Multivitamin 1 tab PO daily HYPERLIPIDEMIA -Atorvastatin 10mg daily - Tricor 48mg daily MDD: Pt reports stable mood; some anhedonia suspected. Previously, refusing meals, shower, PT - Sertraline 100 mg PO daily - Seroquel 100mg HS INSOMNIA -Zolpidem 5mg HS PRN GOUT -Allopurinol 300mg daily HYPOTHYROIDISM 08/2015- TSH low, free T4 grossly wnl (05/27/16) -Synthroid 50 mcg PO daily FUNGAL INFECTION -Nystatin powder and miconazole creme to skin folds MORBID OBESITY WITH BMI 60-69 -see above plan for mechanical ventilation PAIN - Percocet 10-325 mg PO q6h - Morphine 4mg IVP q6h (10) Nutrition, metabolism, and development symptoms Status: Acute Plan: FEN: Fluids: PO (Limited 1.5L/day) Electrolytes: +40KCl BID. Chronically hypokalemic, replete per protocol Nutrition: 2Kcal heart healthy diet. Transitioned to oral feeds (05/29). Wt: Admission: 480 lbs PPX GI ppx: Protonix 20mg BID DVT ppx: Lovenox 150mg BID Pain: Oxycodone 7.5/325 q4h PRN Bowel: Senna 1 tab HS PRN dw: Dr. Conner Problem Qualifiers (1) Hypertension: Qualified Code: I10 - Essential hypertension (2) CHF (congestive heart failure): Qualified Code: I50.9 - Acute on chronic congestive heart failure, unspecified congestive heart failure type Joshua Moreno MD R1 Jun 27, 2016 09:11
[2016-06-27] MEDS: ENOXAPARIN SODIUM 150 MG/ML SYRINGE SQ SCH ×2 (10:00→22:30)
[2016-06-27] MEDS: ONDANSETRON HCL 4 MG/2 ML VIAL IV PUSH PRN (12:36)
[2016-06-27] MEDS: POTASSIUM CHLORIDE 20 MEQ CONTROLLED RELEASE TAB PO SCH ×2 (13:14→22:32)
--- NOTE | 2016-06-27 13:41 | HHI.CCPN ---
Subjective Remarks/Hospital Course 31 year old morbidly obese (BMI 68) male with chronic respiratory failure s/p tracheostomy 4 years ago, atrial fibrillation and pulmonary embolism on Xarelto , COPD, CHF and h/o HTN. He presented from [facility] with low oxygen saturation apparently his oxygen saturation was 82% on RA. He was placed back on 6L of oxygen via his trach mask and given a breathing treatment, initially improved however he started drifting back to low 80s again. Chest x-ray showed bibasilar infiltrates and pulmonary edema. Patient was admitted to the [facility] and was started on IV steroids IV vancomycin and Zosyn and Levaquin for healthcare associated pneumonia. After starting ACV, patient was more awake but there was a significant amount of air leak around his tracheostomy. Patient has had a Shiley 6.0 Proximal XLT, but the ems helicopter pilot balloon had been cut off. 05/02 the patient became acutely hypoxemic with a large cuff leak, underwent emergency trach exchange at bedside by Dr. Macias. FiO2 65% PEEP 14 05/13 Patient is on ventilator via trach, on Fentanyl infusion however he is awake and alert. On PRVC with FIO2 40%. Afebrile. 05/14 No acute events overnight. Tmax 99.8. Patient is awake, alert on ventilator via trach still requiring increase O2. On PRVC with PEEP: 10 and FIO2 70%. 05/15 Pt acutely desaturated after he was found. Saturation down to 70% on 100 % oxygen. Bag and mask ventilation carried out, with eventual improvement on oxygen saturation to 85%. Patient was placed on PC/AC mode of ventilation, with PEEP of 15 and instructed to pressure of 30. Eventually oxygen saturation improved to 95%. Lasix him today as the chest x-ray from today shows increasing bilateral infiltrate and pulmonary edema. Sputum culture will be sent 05/16 Patient is on Fentanyl and Diprivan infusion but awake and alert. Afebrile. On PC/AC with PEEP:15, IP: 22, IT:1.3 and FIO2 50% 05/17 Patient is off Diprivan and remains on Fentanyl infusion for sedation. On PC/AC with PEEP: down 10 and FIO2 40%. Afebrile. 05/18 Patient remains on ventilator via trach on PC/AC with PEEP:12, FIO2 40%, IP:22, IT:1.0. On Fentanyl infusion 05/19 No acute events overnight. On Fentanyl infusion but awake and alert. Afebrile. 05/20 Tolerating C Pap 17/12 FIO2 40, sats 98%. RSBI in 20s, appears can be weaned further. Afebrile. Speech therapy evaluated and ok for regular diet. Starting with full liquid. 05/21 Will wean PSV to 15/10. Tolerated full liquids, will advance to regular diet per speech recs. 05/22 On PSV 15/10 FIO2 40 with sats 92%. Smiling today. Glad to be eating regular food again. 05/23 No acute events overnight. Remains on CPAP with PS 15, PEEP:10 and FIO2 40 %. Afebrile. Off Fentanyl drip. Afebrile. Awake and alert. 05/24 Patient is on CPAP 06/06 with 40% FIO2. Afebrile. Awake and alert, on no sedation. 05/25 No acute events overnight. Patient was placed back on PC/AC overnight. Tolerated CPAP trials during day yesterday. Awake and alert. On no drips. Afebrile. 05/26 Afebrile. Tmax 98.6. Today the patient complained of nausea requiring Zofran. The patient has a lack of an appetite, with noted hypoglycemia early this a.m. blood glucose level 69. Patient tolerating CPAP well greater than 12 hours in the last 24 hours. 05/27 The patient tolerated CPAP for over 36 hours, O2 sat a knee 94% on FIO2 40 %. The patient had an increase in appetite. The patient continues on full liquid diet. 05/28 The patient declined physical therapy treatment, yesterday and also overnight declined to be moved by nursing staff. The patient refused dinner last evening, of note patient was reevaluated by speech therapy and can consume a heart healthy diet with thin liquids. The patient continues on physical therapy for strengthening exercises of all extremities specifically noted right upper extremity continues to be weak with gross fibrillations noted in hand and forearm. 05/29 Afebrile. No change in right upper extremity weakness. The patient was seen by neurology yesterday plan for MRI today if possible in hospital MRI, and EMG studies. No complaints overnight. Patient continues to refuse to have activities performed, movement in bed. The patient appears to be depressed, psychiatry consulted. 05/30: Patient alert awake on CPAP. Following commands. Psych agrees the patient is depressed. MRI brain no acute findings 05/31: Awake alert. on PS 15/8. EMG could not be completed due to patient becoming anxious. Otherwise no acute events reported overnight 06/01: Remains PS from 11/02. Right upper extremity weakness persists. EMG to be repeated on Friday. Will need MRI of the brachial plexus. Chest x-ray is unchanged 06/02: States that "not feeling well". Febrile to 101.5. White count increasing but still within the normal range. Pancultured. We'll request ID reevaluation. 06/03: Resting in bed on C Pap/pressure support via tracheostomy. One out of 2 sets of blood cultures sent on 06/02 positive for gram-positive cocci. 06/04: Resting in bed on mechanical ventilation via tracheostomy. Afebrile overnight. MRI brachial plexus (06/03) revealed a collection near the right subscapularis muscle, possibly an abscess. Discussed with ID, orthopedics Dr. Velazquez consulted. I discussed the case with Dr. Velazquez this morning who feels this is probably an abscess however would be difficult to access surgically and he plans to set up percutaneous drainage by interventional radiology. 06/05: Resting in bed on mechanical ventilation via tracheostomy. Remains afebrile. Reportedly IR cannot do percutaneous drainage of collection involving right subscapularis muscle. 06/06: Resting in bed on mechanical ventilation via tracheostomy. Can actually speak around the trach. Remains afebrile. Dr. Velazquez evaluated patient and is scheduling surgery for drainage of fluid collection involving the right subscapularis muscle. 06/07: Resting in bed on mechanical ventilation via tracheostomy. Awaiting surgery today. 06/08: Status post I&D of collection near right shoulder/subscapularis on 06/[address] Velazquez. This morning patient is awake and alert complained of some pain at the surgical site. Remains on mechanical ventilation on C Pap/pressure support. 06/09: Sleeping, arousable. On mechanical ventilation with C Pap/pressure support overnight. Labs pending 06/10 No acute events overnight. On CPAP with PS 12, PEEP: 8, FIO2 40%. Afebrile. 06/11 Patient remains on CPAP with PS 10, PEEP: 8 and FIO2 40%. Afebrile. 06/12: No acute events overnight. Remains on CPAP 10/5. No specific complaints 06/13: Tolerating C Pap 10 over 5. Awake and alert following commands. Hemoglobin dropped from 8.6-7.1, no obvious bleeding. Sodium 140-149. Will give 1 unit of PRBC with 1 mg IV Bumex 06/14 No acute events overnight. On CPAP with PS 10, PEEP:5 and FIO2 50%. Afebrile. 06/15 No acute events overnight. Remains on CPAP 10/5 with 40% FIO2. Afebrile. 06/16 Patient remains on ventilator via trach on CPAP with PS 10, PEEP:5 and FIO2 40%. 06/17: Resting in bed on mechanical ventilation via tracheostomy. Feeling nauseous. 06/18: OOB in reclining chair. Reporting low back and leg pain that is positional. Continued nausea, denies emesis. CPAP w PS 5 FIO2 40%. Will attempt Tpiece trial today. Discontinue Vanc + Zerbaxa today per ID 06/19: No acute events overnight. Afebrile. HTN to 160/80. CPAP with PS 10. PEEP 10 FIO2 45. Failed Tpiece trial yesterday- desaturated to mid 70s. Denies SOB/CP. Nausea is less than before. Bed is broken and patient would like the mattress to "rotate". Per nursing, they are working to fix it. 06/20: No acute events overnight. Afebrile. HTN to 145/70. CPAP with PEEP 10 FIO2 45, with saturation 93=94%. Pt has no acute complaints. Denies SOB/CP/ Nausea. Didn't know why he threw up during PT yesterday. Denies pain. Still having diarrhea (chronic years in duration issue). Was eating Pringles in bed. Per nursing, does not eat hospital food- waits for mother to bring him food. He was counseled to eat the hospital food which is healthier for him and that he needs to stop eating food brought in by his mother. 06/21: Remains on mechanical ventilation, CPAP with pressure support. Subjective: 06/22: On mechanical ventilation on C Pap with pressure support. Denies any nausea or abdominal pain. Appears comfortable. 06/23: Resting in bed on mechanical ventilation with C Pap/pressure support +10/ +5. Denies any shortness of breath denies any abdominal pain or nausea currently. 06/24: Refusing to get OOB with physical therapy today. I had a long discussion with the patient about the fact that he has been inpatient for months now and he is severely deconditioned. He must get out of bed with PT to clinically improve, and deconditioning is a major factor in his chronic respiratory failure. He denies chest pain or SOB. does endorse some nausea today. 06/25: tolerated 4 hours OOB yesterday with 4 hours of trach collar. plan to go 6 hours today. 06/26: tolerated OOB to chair 5 hours yesterday but only 1.5hr of trach collar due to hypoxia. 06/27: tolerated OOB to chair for 6 hours yesterday and almost 5 hours of trach collar. daily, he continues to be very resistant to participating in PT and getting OOB. He again asks if he can lay in bed today. Objective Vital Signs Date Time Temp Pulse Resp B/P Pulse Ox O2 Delivery O2 Flow Rate FiO2 06/27/16 08:18 94 45 06/27/16 06:00 92 06/27/16 04:00 98.5 24 133/68 06/25/16 12:27 T-piece Intake and Output 06/26/16 06/26/16 06/26/16 07:59 15:59 23:59 Intake Total 540 ml 480 ml 480 ml Output Total 450 ml 1400 ml 400 ml Balance 90 ml -920 ml 80 ml Result Diagram: 06/27/16 0453 06/27/16 0453 Imaging MRI 06/20/16: No official reading. Preliminary reading suggests periventricular white matter changes at basal ganglia and no evidence ischemia CXR 06/17/16: Poor penetration. Rotated image. Unable to visualize lung bases. Possible atelectasis vs infiltrate R worse than L. Objective Remarks GEN: 31yo on ventilator via trach, awakens and follows commands. Super morbidly obese. SKIN: Warm and dry. HEAD: Normocephalic. EYES: No scleral icterus. No injection or drainage. NECK: obese with large neck circumference, trachea midline. Shiley 6.0 Proximal XLT, (new trach placed 05/02/16) CV: normal rate, regular rhythm. RESP: On mechanical ventilation, Breath sounds equal bilaterally. Distant secondary to habitus. GI: Abdomen soft, obese, non-tender, nondistended. Multiple noted areas of ecchymotic bruising secondary to subcutaneous injections. MSK: No cyanosis, or edema. Pedal edema. Neuro: Arousable. Moves all extremities with focal deficit right upper extremity. RASS 0. A/P Assessment and Plan ASSESSMENT Acute hypercapnic and hypoxemic respiratory failure (Shiley 6.0 Proximal XLT) CO2 narcosis (resolved) Acute worsening of hypoxia due to lung de-recruitment (05/15/16, resolved) Healthcare associated pneumonia MDR Pseudomonas Enterococcal bacteremia Pseudomonas bacteremia Collection near right subscapularis muscle(On MRI 06/03) - hematoma status post I &D on 06/07 Sepsis CHF exacerbation Tracheostomy ems helicopter pilot balloon damage -status post exchange with new Shiley 6.0 Proximal XLT 05/02/16 Probable right brachial plexus injury COPD/obesity hypoventilation syndrome Morbid Obesity BMI 60-69 History of pulmonary embolism 4 years ago Chronic atrial fibrillation Anxiety CHF (Echo 2013 EF 40-45%; ECHO 08/2015 showing a grossly normal systolic function) Hypertension Hypothyroidism Depression PLAN NEURO: CO2 narcosis - resolved Critical care polyneuropathy Right upper extremity weakness 05/21-possibly secondary to nerve compression, C6 , C7 (brachial plexus) Pain Anxiety Depression -EMG/ NCV could not be completed on 05/[address] Castillo -Clinically has right brachial plexus involvement. MRI of brachial plexus on 06/03 revealed collection involving right subscapularis muscle- s/p I & D on 06/[address] Velazquez. -Neurology Dr. Cheek-MRI brain, C spine no acute findings. -Venous Doppler RUE 05/28-negative for DVT -Continued PT daily, with strengthening exercise - I discussed again with patient that participating in PT is necessary to his medical care. -Continue Seroquel 100mg HS. Continue Zoloft 100mg daily -Decreased pain reg: Tylenol 625mg pain 1-6, Percocet 10/325 pain 7-10 RESP: Acute hypercapnic and hypoxemic respiratory failure Acute lung derecruitment 05/15 with hypoxia Healthcare associated pneumonia Tracheostomy ems helicopter pilot balloon damage (Shiley 6.0 Proximal XLT) s/p new trach placement 05/02 Chronic Respiratory Failure s/p Tracheostomy 4 years ago COPD/obesity hypoventilation syndrome History of pulmonary embolism 4 years ago Leukocytosis-resolved Pulmonary edema - s/p Bronchoscopy 05/11 -follow up on BAL results negative - Pulm toilet, trach care - Continue with vent support keep sat >88% on CPAP 10, 45% FIO2. Attempt TP/TC as tolerated. Will try again today. I think there is a strong volitional component to his failing t-piece because he states he feels tired before objective evidence of increased work of breathing. - Continue DuoNeb q6h REYES + q2h PRN, Pulmicort BID, Singulair 10mg daily CV: CHF exacerbation Pulmonary edema Paroxysmal atrial fibrillation (chronic) Hyperlipidemia -Monitor HR and BP keep MAP>65mmHg -Cardizem 90mg QID, Bumex 1mg daily PO, Lipitor 10g daily, TriCor 40mg by mouth daily -Therapeutic Lovenox 150 mg twice a day GI: Super morbid obesity with BMI of 64 Nausea GERD -Regular diet, thin liquids per speech recs -Liver US 06/03: Fatty liver, sludge in gall bladder, splenomegaly, no mechanical obstruction of bile duct noted. -Protonix 20mg BID. Zofran prn for nausea. -Multivitamin daily -Bringing in food, per nurses. Not adherent to hospital diet. Consider call to family to restrict them from bringing food. FEN/RENAL: Hypokalemia Metabolic alkalosis - Monitor renal function , I/O, electrolytes replacement per protocol. - Bumex 1mg PO daily, KCL 40meq Q12 ID: Healthcare associated pneumonia Sepsis New fever MDRO Cellulitis right arm-resolved Leukocytosis-resolved Enterococcal faecalis bacteremia, Pseudomonas bacteremia (06/02, 06/03) -Wound culture Pseudomonas MDR 04/27 -Sputum culture-Pseudomonas MDR- 04/27 -Urine cx: Proteus Mirabilis 05/05 -Sputum cx: Providencia 05/05 -Bronchoscopy and re-culture 05/10- NG -Wound cx: Proteus, Pseudomonas, Group D Enterococcus- 05/13 -Sputum cx- NG- 05/15 -Blood culture: aerobic and anaerobic bottles - enterococcus faecalis, pseudomonas aeruginosa 06/02, 06/03 -Urine culture: pseudomonas aeruginosa- 06/02 -Wound culture: pseudomonas aeruginosa- 06/02 -Sputum culture: Pseudomonas- 06/02 -Dr. Velazquez performed drainage of collection surgically on 06/07- likely hematoma -Stopped IV Vanc and Zerbaxa on 06/18. (MDR pseudomonas in blood cultures) - Continue colistin nebs until 06/27, per ID. will d/c today. HEME: History of PE on chronic anticoagulation with Xarelto Iron deficiency anemia and anemia of critical illness. -Monitor CBC, transfused 1U PRBC 06/13 -Xarelto for PE 4 yrs ago. -Xarelto.held, On therapeutic Lovenox 150 mg twice a day -Ferrous sulfate 300 mg/q day ENDO: Hypothyroidism -On SSI (Low scale) -Continue levothyroxine 50 mcg po daily -Free T4 1.52 PROPH: -Lower extremity SCDs (L leg only, R ankle cellulitis), Lovenox 150 mg twice a day GI prophylaxis- Protonix 20mg BID LINES: - PICC line RUE- No DVT on US 05/02 - removed on 06/03. - Milan catheter: will keep today while on bumex Out of bed with assistance. PT out of bed with vent. OT. Dispo: Once we can get him off the ventilator, he can go back to his rehab facility. Until then, he remains in the ICU. Fletcher Brown MD Jun 27, 2016 13:41
[2016-06-27] MEDS: oxyCODONE/ACETAMINOPHEN 10 MG/325 MG TAB PO PRN ×3 (15:40→20:40)
[2016-06-27] MEDS: QUEtiapine FUMARATE 100 MG TAB PO SCH (20:41)
[2016-06-28] VITALS (17 sets, daily range): BP systolic 128–157; BP diastolic 67–93; PULSE 80–104; RESP 15–25; TEMP 98.4–98.9; O2SAT 92–98
[2016-06-28] MEDS: LEVOTHYROXINE SODIUM 50 MCG TAB PO SCH (05:05)
[2016-06-28] MEDS: INSULIN NovoLIN REGULAR SUPPLEMENTAL SCALE SQ SCH ×4 (05:05→18:00)
--- NOTE | 2016-06-28 07:31 | HHI.CCPN ---
Subjective Remarks/Hospital Course 31 year old morbidly obese (BMI 68) male with chronic respiratory failure s/p tracheostomy 4 years ago, atrial fibrillation and pulmonary embolism on Xarelto , COPD, CHF and h/o HTN. He presented from [facility] with low oxygen saturation apparently his oxygen saturation was 82% on RA. He was placed back on 6L of oxygen via his trach mask and given a breathing treatment, initially improved however he started drifting back to low 80s again. Chest x-ray showed bibasilar infiltrates and pulmonary edema. Patient was admitted to the [facility]] service and was started on IV steroids IV vancomycin and Zosyn and Levaquin for healthcare associated pneumonia. After starting ACV, patient was more awake but there was a significant amount of air leak around his tracheostomy. Patient has had a Shiley 6.0 Proximal XLT, but the sdv pilot/navigator/dds operator balloon had been cut off. 05/02 the patient became acutely hypoxemic with a large cuff leak, underwent emergency trach exchange at bedside by Dr. Macias. FiO2 65% PEEP 14 05/13 Patient is on ventilator via trach, on Fentanyl infusion however he is awake and alert. On PRVC with FIO2 40%. Afebrile. 05/14 No acute events overnight. Tmax 99.8. Patient is awake, alert on ventilator via trach still requiring increase O2. On PRVC with PEEP: 10 and FIO2 70%. 05/15 Pt acutely desaturated after he was found. Saturation down to 70% on 100 % oxygen. Bag and mask ventilation carried out, with eventual improvement on oxygen saturation to 85%. Patient was placed on PC/AC mode of ventilation, with PEEP of 15 and instructed to pressure of 30. Eventually oxygen saturation improved to 95%. Lasix him today as the chest x-ray from today shows increasing bilateral infiltrate and pulmonary edema. Sputum culture will be sent 05/16 Patient is on Fentanyl and Diprivan infusion but awake and alert. Afebrile. On PC/AC with PEEP:15, IP: 22, IT:1.3 and FIO2 50% 05/17 Patient is off Diprivan and remains on Fentanyl infusion for sedation. On PC/AC with PEEP: down 10 and FIO2 40%. Afebrile. 05/18 Patient remains on ventilator via trach on PC/AC with PEEP:12, FIO2 40%, IP:22, IT:1.0. On Fentanyl infusion 05/19 No acute events overnight. On Fentanyl infusion but awake and alert. Afebrile. 05/20 Tolerating C Pap 17/12 FIO2 40, sats 98%. RSBI in 20s, appears can be weaned further. Afebrile. Speech therapy evaluated and ok for regular diet. Starting with full liquid. 05/21 Will wean PSV to 15/10. Tolerated full liquids, will advance to regular diet per speech recs. 05/22 On PSV 15/10 FIO2 40 with sats 92%. Smiling today. Glad to be eating regular food again. 05/23 No acute events overnight. Remains on CPAP with PS 15, PEEP:10 and FIO2 40 %. Afebrile. Off Fentanyl drip. Afebrile. Awake and alert. 05/24 Patient is on CPAP 06/06 with 40% FIO2. Afebrile. Awake and alert, on no sedation. 05/25 No acute events overnight. Patient was placed back on PC/AC overnight. Tolerated CPAP trials during day yesterday. Awake and alert. On no drips. Afebrile. 05/26 Afebrile. Tmax 98.6. Today the patient complained of nausea requiring Zofran. The patient has a lack of an appetite, with noted hypoglycemia early this a.m. blood glucose level 69. Patient tolerating CPAP well greater than 12 hours in the last 24 hours. 05/27 The patient tolerated CPAP for over 36 hours, O2 sat a knee 94% on FIO2 40 %. The patient had an increase in appetite. The patient continues on full liquid diet. 05/28 The patient declined physical therapy treatment, yesterday and also overnight declined to be moved by nursing staff. The patient refused dinner last evening, of note patient was reevaluated by speech therapy and can consume a heart healthy diet with thin liquids. The patient continues on physical therapy for strengthening exercises of all extremities specifically noted right upper extremity continues to be weak with gross fibrillations noted in hand and forearm. 05/29 Afebrile. No change in right upper extremity weakness. The patient was seen by neurology yesterday plan for MRI today if possible in hospital MRI, and EMG studies. No complaints overnight. Patient continues to refuse to have activities performed, movement in bed. The patient appears to be depressed, psychiatry consulted. 05/30: Patient alert awake on CPAP. Following commands. Psych agrees the patient is depressed. MRI brain no acute findings 05/31: Awake alert. on PS 15/8. EMG could not be completed due to patient becoming anxious. Otherwise no acute events reported overnight 06/01: Remains PS from 11/02. Right upper extremity weakness persists. EMG to be repeated on Friday. Will need MRI of the brachial plexus. Chest x-ray is unchanged 06/02: States that "not feeling well". Febrile to 101.5. White count increasing but still within the normal range. Pancultured. We'll request ID reevaluation. 06/03: Resting in bed on C Pap/pressure support via tracheostomy. One out of 2 sets of blood cultures sent on 06/02 positive for gram-positive cocci. 06/04: Resting in bed on mechanical ventilation via tracheostomy. Afebrile overnight. MRI brachial plexus (06/03) revealed a collection near the right subscapularis muscle, possibly an abscess. Discussed with ID, orthopedics Dr. Velazquez consulted. I discussed the case with Dr. Velazquez this morning who feels this is probably an abscess however would be difficult to access surgically and he plans to set up percutaneous drainage by interventional radiology. 06/05: Resting in bed on mechanical ventilation via tracheostomy. Remains afebrile. Reportedly IR cannot do percutaneous drainage of collection involving right subscapularis muscle. 06/06: Resting in bed on mechanical ventilation via tracheostomy. Can actually speak around the trach. Remains afebrile. Dr. Velazquez evaluated patient and is scheduling surgery for drainage of fluid collection involving the right subscapularis muscle. 06/07: Resting in bed on mechanical ventilation via tracheostomy. Awaiting surgery today. 06/08: Status post I&D of collection near right shoulder/subscapularis on 06/[address] Velazquez. This morning patient is awake and alert complained of some pain at the surgical site. Remains on mechanical ventilation on C Pap/pressure support. 06/09: Sleeping, arousable. On mechanical ventilation with C Pap/pressure support overnight. Labs pending 06/10 No acute events overnight. On CPAP with PS 12, PEEP: 8, FIO2 40%. Afebrile. 06/11 Patient remains on CPAP with PS 10, PEEP: 8 and FIO2 40%. Afebrile. 06/12: No acute events overnight. Remains on CPAP 10/5. No specific complaints 06/13: Tolerating C Pap 10 over 5. Awake and alert following commands. Hemoglobin dropped from 8.6-7.1, no obvious bleeding. Sodium 140-149. Will give 1 unit of PRBC with 1 mg IV Bumex 06/14 No acute events overnight. On CPAP with PS 10, PEEP:5 and FIO2 50%. Afebrile. 06/15 No acute events overnight. Remains on CPAP 10/5 with 40% FIO2. Afebrile. 06/16 Patient remains on ventilator via trach on CPAP with PS 10, PEEP:5 and FIO2 40%. 06/17: Resting in bed on mechanical ventilation via tracheostomy. Feeling nauseous. 06/18: OOB in reclining chair. Reporting low back and leg pain that is positional. Continued nausea, denies emesis. CPAP w PS 5 FIO2 40%. Will attempt Tpiece trial today. Discontinue Vanc + Zerbaxa today per ID 06/19: No acute events overnight. Afebrile. HTN to 160/80. CPAP with PS 10. PEEP 10 FIO2 45. Failed Tpiece trial yesterday- desaturated to mid 70s. Denies SOB/CP. Nausea is less than before. Bed is broken and patient would like the mattress to "rotate". Per nursing, they are working to fix it. 06/20: No acute events overnight. Afebrile. HTN to 145/70. CPAP with PEEP 10 FIO2 45, with saturation 93=94%. Pt has no acute complaints. Denies SOB/CP/ Nausea. Didn't know why he threw up during PT yesterday. Denies pain. Still having diarrhea (chronic years in duration issue). Was eating Pringles in bed. Per nursing, does not eat hospital food- waits for mother to bring him food. He was counseled to eat the hospital food which is healthier for him and that he needs to stop eating food brought in by his mother. 06/21: Remains on mechanical ventilation, CPAP with pressure support. Subjective: 06/22: On mechanical ventilation on C Pap with pressure support. Denies any nausea or abdominal pain. Appears comfortable. 06/23: Resting in bed on mechanical ventilation with C Pap/pressure support +10/ +5. Denies any shortness of breath denies any abdominal pain or nausea currently. 06/24: Refusing to get OOB with physical therapy today. I had a long discussion with the patient about the fact that he has been inpatient for months now and he is severely deconditioned. He must get out of bed with PT to clinically improve, and deconditioning is a major factor in his chronic respiratory failure. He denies chest pain or SOB. does endorse some nausea today. 06/25: tolerated 4 hours OOB yesterday with 4 hours of trach collar. plan to go 6 hours today. 06/26: tolerated OOB to chair 5 hours yesterday but only 1.5hr of trach collar due to hypoxia. 06/27: tolerated OOB to chair for 6 hours yesterday and almost 5 hours of trach collar. daily, he continues to be very resistant to participating in PT and getting OOB. He again asks if he can lay in bed today. 06/28: tolerated 6 hours of trach collar yesterday. OOB for almost 8 hours. Objective Vital Signs Date Time Temp Pulse Resp B/P Pulse Ox O2 Delivery O2 Flow Rate FiO2 06/28/16 06:00 80 06/28/16 04:01 98 45 06/28/16 04:00 98.9 16 145/74 06/25/16 12:27 T-piece Intake and Output 06/27/16 06/27/16 06/28/16 08:00 16:00 00:00 Intake Total 240 ml 480 ml 350 ml Output Total 700 ml 1600 ml 325 ml Balance -460 ml -1120 ml 25 ml Result Diagram: 06/27/16 0453 06/27/16 0453 Imaging MRI 06/20/16: No official reading. Preliminary reading suggests periventricular white matter changes at basal ganglia and no evidence ischemia CXR 06/17/16: Poor penetration. Rotated image. Unable to visualize lung bases. Possible atelectasis vs infiltrate R worse than L. Objective Remarks GEN: 31yo on ventilator via trach, awakens and follows commands. Super morbidly obese. SKIN: Warm and dry. HEAD: Normocephalic. EYES: No scleral icterus. No injection or drainage. NECK: obese with large neck circumference, trachea midline. Shiley 6.0 Proximal XLT, (new trach placed 05/02/16) CV: normal rate, regular rhythm. RESP: On mechanical ventilation, Breath sounds equal bilaterally. Distant secondary to habitus. GI: Abdomen soft, obese, non-tender, nondistended. Multiple noted areas of ecchymotic bruising secondary to subcutaneous injections. MSK: No cyanosis, or edema. Pedal edema. Neuro: Arousable. Moves all extremities with focal deficit right upper extremity. RASS 0. A/P Assessment and Plan ASSESSMENT Acute hypercapnic and hypoxemic respiratory failure (Shiley 6.0 Proximal XLT) CO2 narcosis (resolved) Acute worsening of hypoxia due to lung de-recruitment (05/15/16, resolved) Healthcare associated pneumonia MDR Pseudomonas Enterococcal bacteremia Pseudomonas bacteremia Collection near right subscapularis muscle(On MRI 06/03) - hematoma status post I &D on 06/07 Sepsis CHF exacerbation Tracheostomy sdv pilot/navigator/dds operator balloon damage -status post exchange with new Shiley 6.0 Proximal XLT 05/02/16 Probable right brachial plexus injury COPD/obesity hypoventilation syndrome Morbid Obesity BMI 60-69 History of pulmonary embolism 4 years ago Chronic atrial fibrillation Anxiety CHF (Echo 2013 EF 40-45%; ECHO 08/2015 showing a grossly normal systolic function) Hypertension Hypothyroidism Depression PLAN NEURO: CO2 narcosis - resolved Critical care polyneuropathy Right upper extremity weakness 05/21-possibly secondary to nerve compression, C6 , C7 (brachial plexus) Pain Anxiety Depression -EMG/ NCV could not be completed on 05/[address] Castillo -Clinically has right brachial plexus involvement. MRI of brachial plexus on 06/03 revealed collection involving right subscapularis muscle- s/p I & D on 06/[address] Velazquez. -Neurology Dr. Cheek-MRI brain, C spine no acute findings. -Venous Doppler RUE 05/28-negative for DVT -Continued PT daily, with strengthening exercise - I discussed again with patient that participating in PT is necessary to his medical care. -Continue Seroquel 100mg HS. Continue Zoloft 100mg daily -Decreased pain reg: Tylenol 625mg pain 1-6, Percocet 10/325 pain 7-10 RESP: Acute hypercapnic and hypoxemic respiratory failure Acute lung derecruitment 05/15 with hypoxia Healthcare associated pneumonia Tracheostomy sdv pilot/navigator/dds operator balloon damage (Shiley 6.0 Proximal XLT) s/p new trach placement 05/02 Chronic Respiratory Failure s/p Tracheostomy 4 years ago COPD/obesity hypoventilation syndrome History of pulmonary embolism 4 years ago Leukocytosis-resolved Pulmonary edema - s/p Bronchoscopy 05/11 -follow up on BAL results negative - Pulm toilet, trach care - Continue with vent support keep sat >88% on CPAP 10, 45% FIO2. Attempt TP/TC as tolerated. Will try again today. I think there is a strong volitional component to his failing t-piece because he states he feels tired before objective evidence of increased work of breathing. - Continue DuoNeb q6h REYES + q2h PRN, Pulmicort BID, Singulair 10mg daily CV: CHF exacerbation Pulmonary edema Paroxysmal atrial fibrillation (chronic) Hyperlipidemia -Monitor HR and BP keep MAP>65mmHg -Cardizem 90mg QID, Bumex 1mg daily PO, Lipitor 10g daily, TriCor 40mg by mouth daily -Therapeutic Lovenox 150 mg twice a day. will restart Xarelto today. GI: Super morbid obesity with BMI of 64 Nausea GERD -Regular diet, thin liquids per speech recs -Liver US 06/03: Fatty liver, sludge in gall bladder, splenomegaly, no mechanical obstruction of bile duct noted. -Protonix 20mg BID. Zofran prn for nausea. -Multivitamin daily -Bringing in food, per nurses. Not adherent to hospital diet. Consider call to family to restrict them from bringing food. FEN/RENAL: Hypokalemia Metabolic alkalosis - Monitor renal function , I/O, electrolytes replacement per protocol. - Bumex 1mg PO daily, KCL 40meq Q12 ID: Healthcare associated pneumonia Sepsis New fever MDRO Cellulitis right arm-resolved Leukocytosis-resolved Enterococcal faecalis bacteremia, Pseudomonas bacteremia (06/02, 06/03) -Wound culture Pseudomonas MDR 04/27 -Sputum culture-Pseudomonas MDR- 04/27 -Urine cx: Proteus Mirabilis 05/05 -Sputum cx: Providencia 05/05 -Bronchoscopy and re-culture 05/10- NG -Wound cx: Proteus, Pseudomonas, Group D Enterococcus- 05/13 -Sputum cx- NG- 05/15 -Blood culture: aerobic and anaerobic bottles - enterococcus faecalis, pseudomonas aeruginosa 06/02, 06/03 -Urine culture: pseudomonas aeruginosa- 06/02 -Wound culture: pseudomonas aeruginosa- 06/02 -Sputum culture: Pseudomonas- 06/02 -Dr. Velazquez performed drainage of collection surgically on 06/07- likely hematoma -Stopped IV Vanc and Zerbaxa on 06/18. (MDR pseudomonas in blood cultures) - colistin nebs stopped 06/27 HEME: History of PE on chronic anticoagulation with Xarelto Iron deficiency anemia and anemia of critical illness. -Monitor CBC, transfused 1U PRBC 06/13 -Xarelto for PE 4 yrs ago. -Restart Xarelto. stop lovenox. -Ferrous sulfate 300 mg/q day ENDO: Hypothyroidism -On SSI (Low scale) -Continue levothyroxine 50 mcg po daily -Free T4 1.52 PROPH: -Lower extremity SCDs (L leg only, R ankle cellulitis), Lovenox 150 mg twice a day. transition to Xarelto. GI prophylaxis- Protonix 20mg BID LINES: - PICC line RUE- No DVT on US 05/02 - removed on 06/03. - Milan catheter: will keep today while on bumex Out of bed with assistance. PT out of bed with vent. OT. Dispo: Once we can get him off the ventilator, he can go back to his rehab facility. Until then, he remains in the ICU. Fletcher Brown MD Jun 28, 2016 07:31
[2016-06-28] MEDS: RESP: BUDESONIDE 0.5 MG/2 ML NEB NEB SCH ×2 (08:12→20:00)
[2016-06-28] MEDS: CHLORHEXIDINE 0.12% (ORAL KIT) 15 ML CUP MT SCH ×2 (08:30→21:33)
[2016-06-28] MEDS: BUMETANIDE 1 MG TAB PO SCH (08:30)
[2016-06-28] MEDS: ATORVASTATIN 10 MG TAB PO SCH (08:30)
[2016-06-28] MEDS: MULTIVITAMIN TAB PO SCH (08:30)
[2016-06-28] MEDS: ALLOPURINOL 300 MG TAB PO SCH (08:30)
[2016-06-28] MEDS: FENOFIBRATE 48 MG TAB PO SCH (08:30)
[2016-06-28] MEDS: MONTELUKAST SODIUM 10 MG TAB PO SCH (08:31)
[2016-06-28] MEDS: PANTOPRAZOLE SOD 20 MG DELAYED RELEASE TAB PO SCH ×2 (08:31→21:31)
[2016-06-28] MEDS: DILTIAZEM HCL 90 MG TAB PO SCH ×4 (08:31→21:32)
[2016-06-28] MEDS: FERROUS SULFATE 325 MG (65 MG ELEMENTAL IRON) TAB PO SCH (08:31)
[2016-06-28] MEDS: SERTRALINE HCL 100 MG TAB PO SCH (08:39)
[2016-06-28] MEDS: RIVAROXABAN 20 MG TAB PO SCH (08:39)
[2016-06-28] MEDS: SODIUM CHLORIDE 0.9% FLUSH 5 ML FLUSH IVF SCH ×2 (08:39→21:32)
[2016-06-28] MEDS: COLLAGENASE OINT 30 GM TUBE TOP SCH (08:41)
[2016-06-28] MEDS: NYSTATIN 100,000 U/GM PWD 15 GM BTL TOPICAL SCH ×2 (08:41→21:33)
[2016-06-28] MEDS: MICONAZOLE NITRATE 2% CREAM 15 GM TOP SCH ×2 (08:42→21:33)
[2016-06-28] MEDS: POTASSIUM CHLORIDE 20 MEQ CONTROLLED RELEASE TAB PO SCH (11:57)
[2016-06-28] MEDS: ONDANSETRON HCL 4 MG/2 ML VIAL IV PUSH PRN (14:05)
[2016-06-28] MEDS: QUEtiapine FUMARATE 100 MG TAB PO SCH (21:31)
[2016-06-28] MEDS: oxyCODONE/ACETAMINOPHEN 10 MG/325 MG TAB PO PRN (21:31)
[2016-06-28] MEDS: ZOLPIDEM TARTRATE 10 MG TAB PO PRN (21:32)
[2016-06-29] VITALS (15 sets, daily range): BP systolic 128–210; BP diastolic 64–96; PULSE 82–97; RESP 16–28; TEMP 98.3–99.4; O2SAT 91–100
[2016-06-29] MEDS: POTASSIUM CHLORIDE 20 MEQ CONTROLLED RELEASE TAB PO SCH ×3 (00:34→22:57)
[2016-06-29] MEDS: INSULIN NovoLIN REGULAR SUPPLEMENTAL SCALE SQ SCH ×4 (06:00→18:00)
[2016-06-29] MEDS: LEVOTHYROXINE SODIUM 50 MCG TAB PO SCH (06:23)
[2016-06-29] MEDS: RESP: BUDESONIDE 0.5 MG/2 ML NEB NEB SCH ×2 (08:04→19:26)
[2016-06-29] MEDS: ALLOPURINOL 300 MG TAB PO SCH (08:49)
[2016-06-29] MEDS: RIVAROXABAN 20 MG TAB PO SCH (08:49)
[2016-06-29] MEDS: MULTIVITAMIN TAB PO SCH (08:49)
[2016-06-29] MEDS: BUMETANIDE 1 MG TAB PO SCH (08:49)
[2016-06-29] MEDS: FENOFIBRATE 48 MG TAB PO SCH (08:49)
[2016-06-29] MEDS: FERROUS SULFATE 325 MG (65 MG ELEMENTAL IRON) TAB PO SCH (08:49)
[2016-06-29] MEDS: MONTELUKAST SODIUM 10 MG TAB PO SCH (08:49)
[2016-06-29] MEDS: SERTRALINE HCL 100 MG TAB PO SCH (08:49)
[2016-06-29] MEDS: DILTIAZEM HCL 90 MG TAB PO SCH ×4 (08:49→20:25)
[2016-06-29] MEDS: PANTOPRAZOLE SOD 20 MG DELAYED RELEASE TAB PO SCH ×2 (08:49→20:25)
[2016-06-29] MEDS: ATORVASTATIN 10 MG TAB PO SCH (08:49)
[2016-06-29] MEDS: NYSTATIN 100,000 U/GM PWD 15 GM BTL TOPICAL SCH ×2 (08:51→20:27)
[2016-06-29] MEDS: SODIUM CHLORIDE 0.9% FLUSH 5 ML FLUSH IVF SCH ×2 (08:51→20:27)
[2016-06-29] MEDS: MICONAZOLE NITRATE 2% CREAM 15 GM TOP SCH ×2 (08:51→20:27)
[2016-06-29] MEDS: COLLAGENASE OINT 30 GM TUBE TOP SCH (08:51)
[2016-06-29] MEDS: CHLORHEXIDINE 0.12% (ORAL KIT) 15 ML CUP MT SCH ×2 (08:52→20:00)
--- NOTE | 2016-06-29 09:46 | HHI.CCPN ---
Subjective Remarks/Hospital Course 31 year old morbidly obese (BMI 68) male with chronic respiratory failure s/p tracheostomy 4 years ago, atrial fibrillation and pulmonary embolism on Xarelto , COPD, CHF and h/o HTN. He presented from [facility] with low oxygen saturation apparently his oxygen saturation was 82% on RA. He was placed back on 6L of oxygen via his trach mask and given a breathing treatment, initially improved however he started drifting back to low 80s again. Chest x-ray showed bibasilar infiltrates and pulmonary edema. Patient was admitted to the [facility] service and was started on IV steroids IV vancomycin and Zosyn and Levaquin for healthcare associated pneumonia. After starting ACV, patient was more awake but there was a significant amount of air leak around his tracheostomy. Patient has had a Shiley 6.0 Proximal XLT, but the automatic pilot mechanic balloon had been cut off. 05/02 the patient became acutely hypoxemic with a large cuff leak, underwent emergency trach exchange at bedside by Dr. Macias. FiO2 65% PEEP 14 05/13 Patient is on ventilator via trach, on Fentanyl infusion however he is awake and alert. On PRVC with FIO2 40%. Afebrile. 05/14 No acute events overnight. Tmax 99.8. Patient is awake, alert on ventilator via trach still requiring increase O2. On PRVC with PEEP: 10 and FIO2 70%. 05/15 Pt acutely desaturated after he was found. Saturation down to 70% on 100 % oxygen. Bag and mask ventilation carried out, with eventual improvement on oxygen saturation to 85%. Patient was placed on PC/AC mode of ventilation, with PEEP of 15 and instructed to pressure of 30. Eventually oxygen saturation improved to 95%. Lasix him today as the chest x-ray from today shows increasing bilateral infiltrate and pulmonary edema. Sputum culture will be sent 05/16 Patient is on Fentanyl and Diprivan infusion but awake and alert. Afebrile. On PC/AC with PEEP:15, IP: 22, IT:1.3 and FIO2 50% 05/17 Patient is off Diprivan and remains on Fentanyl infusion for sedation. On PC/AC with PEEP: down 10 and FIO2 40%. Afebrile. 05/18 Patient remains on ventilator via trach on PC/AC with PEEP:12, FIO2 40%, IP:22, IT:1.0. On Fentanyl infusion 05/19 No acute events overnight. On Fentanyl infusion but awake and alert. Afebrile. 05/20 Tolerating C Pap 17/12 FIO2 40, sats 98%. RSBI in 20s, appears can be weaned further. Afebrile. Speech therapy evaluated and ok for regular diet. Starting with full liquid. 05/21 Will wean PSV to 15/10. Tolerated full liquids, will advance to regular diet per speech recs. 05/22 On PSV 15/10 FIO2 40 with sats 92%. Smiling today. Glad to be eating regular food again. 05/23 No acute events overnight. Remains on CPAP with PS 15, PEEP:10 and FIO2 40 %. Afebrile. Off Fentanyl drip. Afebrile. Awake and alert. 05/24 Patient is on CPAP 06/06 with 40% FIO2. Afebrile. Awake and alert, on no sedation. 05/25 No acute events overnight. Patient was placed back on PC/AC overnight. Tolerated CPAP trials during day yesterday. Awake and alert. On no drips. Afebrile. 05/26 Afebrile. Tmax 98.6. Today the patient complained of nausea requiring Zofran. The patient has a lack of an appetite, with noted hypoglycemia early this a.m. blood glucose level 69. Patient tolerating CPAP well greater than 12 hours in the last 24 hours. 05/27 The patient tolerated CPAP for over 36 hours, O2 sat a knee 94% on FIO2 40 %. The patient had an increase in appetite. The patient continues on full liquid diet. 05/28 The patient declined physical therapy treatment, yesterday and also overnight declined to be moved by nursing staff. The patient refused dinner last evening, of note patient was reevaluated by speech therapy and can consume a heart healthy diet with thin liquids. The patient continues on physical therapy for strengthening exercises of all extremities specifically noted right upper extremity continues to be weak with gross fibrillations noted in hand and forearm. 05/29 Afebrile. No change in right upper extremity weakness. The patient was seen by neurology yesterday plan for MRI today if possible in hospital MRI, and EMG studies. No complaints overnight. Patient continues to refuse to have activities performed, movement in bed. The patient appears to be depressed, psychiatry consulted. 05/30: Patient alert awake on CPAP. Following commands. Psych agrees the patient is depressed. MRI brain no acute findings 05/31: Awake alert. on PS 15/8. EMG could not be completed due to patient becoming anxious. Otherwise no acute events reported overnight 06/01: Remains PS from 11/02. Right upper extremity weakness persists. EMG to be repeated on Friday. Will need MRI of the brachial plexus. Chest x-ray is unchanged 06/02: States that "not feeling well". Febrile to 101.5. White count increasing but still within the normal range. Pancultured. We'll request ID reevaluation. 06/03: Resting in bed on C Pap/pressure support via tracheostomy. One out of 2 sets of blood cultures sent on 06/02 positive for gram-positive cocci. 06/04: Resting in bed on mechanical ventilation via tracheostomy. Afebrile overnight. MRI brachial plexus (06/03) revealed a collection near the right subscapularis muscle, possibly an abscess. Discussed with ID, orthopedics Dr. Velazquez consulted. I discussed the case with Dr. Velazquez this morning who feels this is probably an abscess however would be difficult to access surgically and he plans to set up percutaneous drainage by interventional radiology. 06/05: Resting in bed on mechanical ventilation via tracheostomy. Remains afebrile. Reportedly IR cannot do percutaneous drainage of collection involving right subscapularis muscle. 06/06: Resting in bed on mechanical ventilation via tracheostomy. Can actually speak around the trach. Remains afebrile. Dr. Velazquez evaluated patient and is scheduling surgery for drainage of fluid collection involving the right subscapularis muscle. 06/07: Resting in bed on mechanical ventilation via tracheostomy. Awaiting surgery today. 06/08: Status post I&D of collection near right shoulder/subscapularis on 06/[address] Velazquez. This morning patient is awake and alert complained of some pain at the surgical site. Remains on mechanical ventilation on C Pap/pressure support. 06/09: Sleeping, arousable. On mechanical ventilation with C Pap/pressure support overnight. Labs pending 06/10 No acute events overnight. On CPAP with PS 12, PEEP: 8, FIO2 40%. Afebrile. 06/11 Patient remains on CPAP with PS 10, PEEP: 8 and FIO2 40%. Afebrile. 06/12: No acute events overnight. Remains on CPAP 10/5. No specific complaints 06/13: Tolerating C Pap 10 over 5. Awake and alert following commands. Hemoglobin dropped from 8.6-7.1, no obvious bleeding. Sodium 140-149. Will give 1 unit of PRBC with 1 mg IV Bumex 06/14 No acute events overnight. On CPAP with PS 10, PEEP:5 and FIO2 50%. Afebrile. 06/15 No acute events overnight. Remains on CPAP 10/5 with 40% FIO2. Afebrile. 06/16 Patient remains on ventilator via trach on CPAP with PS 10, PEEP:5 and FIO2 40%. 06/17: Resting in bed on mechanical ventilation via tracheostomy. Feeling nauseous. 06/18: OOB in reclining chair. Reporting low back and leg pain that is positional. Continued nausea, denies emesis. CPAP w PS 5 FIO2 40%. Will attempt Tpiece trial today. Discontinue Vanc + Zerbaxa today per ID 06/19: No acute events overnight. Afebrile. HTN to 160/80. CPAP with PS 10. PEEP 10 FIO2 45. Failed Tpiece trial yesterday- desaturated to mid 70s. Denies SOB/CP. Nausea is less than before. Bed is broken and patient would like the mattress to "rotate". Per nursing, they are working to fix it. 06/20: No acute events overnight. Afebrile. HTN to 145/70. CPAP with PEEP 10 FIO2 45, with saturation 93=94%. Pt has no acute complaints. Denies SOB/CP/ Nausea. Didn't know why he threw up during PT yesterday. Denies pain. Still having diarrhea (chronic years in duration issue). Was eating Pringles in bed. Per nursing, does not eat hospital food- waits for mother to bring him food. He was counseled to eat the hospital food which is healthier for him and that he needs to stop eating food brought in by his mother. 06/21: Remains on mechanical ventilation, CPAP with pressure support. 06/22: On mechanical ventilation on C Pap with pressure support. Denies any nausea or abdominal pain. Appears comfortable. 06/23: Resting in bed on mechanical ventilation with C Pap/pressure support +10/ +5. Denies any shortness of breath denies any abdominal pain or nausea currently. 06/24: Refusing to get OOB with physical therapy today. I had a long discussion with the patient about the fact that he has been inpatient for months now and he is severely deconditioned. He must get out of bed with PT to clinically improve, and deconditioning is a major factor in his chronic respiratory failure. He denies chest pain or SOB. does endorse some nausea today. 06/25: tolerated 4 hours OOB yesterday with 4 hours of trach collar. plan to go 6 hours today. 06/26: tolerated OOB to chair 5 hours yesterday but only 1.5hr of trach collar due to hypoxia. 06/27: tolerated OOB to chair for 6 hours yesterday and almost 5 hours of trach collar. daily, he continues to be very resistant to participating in PT and getting OOB. He again asks if he can lay in bed today. Subjective: 06/28: tolerated 6 hours of trach collar yesterday. OOB for almost 8 hours. 06/29: continues to tolerate daily trach collar trials. OOB for 8 hours again yesterday. Objective Vital Signs Date Time Temp Pulse Resp B/P Pulse Ox O2 Delivery O2 Flow Rate FiO2 06/29/16 08:04 100 45 06/29/16 06:00 91 06/29/16 04:00 98.9 26 138/69 06/28/16 08:16 T-piece Intake and Output 06/28/16 06/28/16 06/28/16 07:59 15:59 23:59 Intake Total 350 ml 120 ml 755 ml Output Total 300 ml 1150 ml 325 ml Balance 50 ml -1030 ml 430 ml Result Diagram: 06/27/16 0453 06/27/16 0453 Imaging MRI 06/20/16: No official reading. Preliminary reading suggests periventricular white matter changes at basal ganglia and no evidence ischemia CXR 06/17/16: Poor penetration. Rotated image. Unable to visualize lung bases. Possible atelectasis vs infiltrate R worse than L. Objective Remarks GEN: 31yo on ventilator via trach, awakens and follows commands. Super morbidly obese. SKIN: Warm and dry. HEAD: Normocephalic. EYES: No scleral icterus. No injection or drainage. NECK: obese with large neck circumference, trachea midline. Shiley 6.0 Proximal XLT, (new trach placed 05/02/16) CV: normal rate, regular rhythm. RESP: On mechanical ventilation, Breath sounds equal bilaterally. Distant secondary to habitus. GI: Abdomen soft, obese, non-tender, nondistended. Multiple noted areas of ecchymotic bruising secondary to subcutaneous injections. MSK: No cyanosis, or edema. Pedal edema. Neuro: Arousable. Moves all extremities with focal deficit right upper extremity. RASS 0. A/P Assessment and Plan ASSESSMENT Acute hypercapnic and hypoxemic respiratory failure (Shiley 6.0 Proximal XLT) CO2 narcosis (resolved) Acute worsening of hypoxia due to lung de-recruitment (05/15/16, resolved) Healthcare associated pneumonia MDR Pseudomonas Enterococcal bacteremia Pseudomonas bacteremia Collection near right subscapularis muscle(On MRI 06/03) - hematoma status post I &D on 06/07 Sepsis CHF exacerbation Tracheostomy automatic pilot mechanic balloon damage -status post exchange with new Shiley 6.0 Proximal XLT 05/02/16 Probable right brachial plexus injury COPD/obesity hypoventilation syndrome Morbid Obesity BMI 60-69 History of pulmonary embolism 4 years ago Chronic atrial fibrillation Anxiety CHF (Echo 2013 EF 40-45%; ECHO 08/2015 showing a grossly normal systolic function) Hypertension Hypothyroidism Depression PLAN NEURO: CO2 narcosis - resolved Critical care polyneuropathy Right upper extremity weakness 05/21-possibly secondary to nerve compression, C6 , C7 (brachial plexus) Pain Anxiety Depression -EMG/ NCV could not be completed on 05/[address] Castillo -Clinically has right brachial plexus involvement. MRI of brachial plexus on 06/03 revealed collection involving right subscapularis muscle- s/p I & D on 06/[address] Velazquez. -Neurology Dr. Cheek-MRI brain, C spine no acute findings. -Venous Doppler RUE 05/28-negative for DVT -Continued PT daily, with strengthening exercise - I discussed again with patient that participating in PT is necessary to his medical care. -Continue Seroquel 100mg HS. Continue Zoloft 100mg daily -Decreased pain reg: Tylenol 625mg pain 1-6, Percocet 10/325 pain 7-10 RESP: Acute hypercapnic and hypoxemic respiratory failure Acute lung derecruitment 05/15 with hypoxia Healthcare associated pneumonia Tracheostomy automatic pilot mechanic balloon damage (Shiley 6.0 Proximal XLT) s/p new trach placement 05/02 Chronic Respiratory Failure s/p Tracheostomy 4 years ago COPD/obesity hypoventilation syndrome History of pulmonary embolism 4 years ago Leukocytosis-resolved Pulmonary edema - s/p Bronchoscopy 05/11 -follow up on BAL results negative - Pulm toilet, trach care - Continue with vent support keep sat >88% on CPAP 10, 45% FIO2. Attempt TP/TC as tolerated. Will try again today. I think there is a strong volitional component to his failing t-piece because he states he feels tired before objective evidence of increased work of breathing. - Continue DuoNeb q6h REYES + q2h PRN, Pulmicort BID, Singulair 10mg daily CV: CHF exacerbation Pulmonary edema Paroxysmal atrial fibrillation (chronic) Hyperlipidemia -Monitor HR and BP keep MAP>65mmHg -Cardizem 90mg QID, Bumex 1mg daily PO, Lipitor 10g daily, TriCor 40mg by mouth daily -continue home Xarelto. GI: Super morbid obesity with BMI of 64 Nausea GERD -Regular diet, thin liquids per speech recs -Liver US 06/03: Fatty liver, sludge in gall bladder, splenomegaly, no mechanical obstruction of bile duct noted. -Protonix 20mg BID. Zofran prn for nausea. -Multivitamin daily -Bringing in food, per nurses. Not adherent to hospital diet. Consider call to family to restrict them from bringing food. FEN/RENAL: Hypokalemia Metabolic alkalosis - Monitor renal function , I/O, electrolytes replacement per protocol. - Bumex 1mg PO daily, KCL 40meq Q12 ID: Healthcare associated pneumonia Sepsis New fever MDRO Cellulitis right arm-resolved Leukocytosis-resolved Enterococcal faecalis bacteremia, Pseudomonas bacteremia (06/02, 06/03) -Wound culture Pseudomonas MDR 04/27 -Sputum culture-Pseudomonas MDR- 04/27 -Urine cx: Proteus Mirabilis 05/05 -Sputum cx: Providencia 05/05 -Bronchoscopy and re-culture 05/10- NG -Wound cx: Proteus, Pseudomonas, Group D Enterococcus- 05/13 -Sputum cx- NG- 05/15 -Blood culture: aerobic and anaerobic bottles - enterococcus faecalis, pseudomonas aeruginosa 06/02, 06/03 -Urine culture: pseudomonas aeruginosa- 06/02 -Wound culture: pseudomonas aeruginosa- 06/02 -Sputum culture: Pseudomonas- 06/02 -Dr. Velazquez performed drainage of collection surgically on 06/07- likely hematoma -Stopped IV Vanc and Zerbaxa on 06/18. (MDR pseudomonas in blood cultures) - colistin nebs stopped 06/27 HEME: History of PE on chronic anticoagulation with Xarelto Iron deficiency anemia and anemia of critical illness. -Monitor CBC, transfused 1U PRBC 06/13 -Xarelto for PE 4 yrs ago. -Continue Xarelto. -Ferrous sulfate 300 mg/q day ENDO: Hypothyroidism -On SSI (Low scale) -Continue levothyroxine 50 mcg po daily -Free T4 1.52 PROPH: -Lower extremity SCDs (L leg only, R ankle cellulitis), continue home xarelto GI prophylaxis- Protonix 20mg BID LINES: - PICC line RUE- No DVT on US 05/02 - removed on 06/03. - Milan catheter: will keep today while on bumex Out of bed with assistance. PT out of bed with vent. OT. Dispo: Once we can get him off the ventilator, he can go back to his rehab facility. Until then, he remains in the ICU. Fletcher Brown MD Jun 29, 2016 09:46
--- NOTE | 2016-06-29 11:31 | HHI.FPPN ---
Subjective Remarks PT at bedside helping patient move to chair. He denies cp, n/v/d, sob. Objective Vitals Vital Signs Date Time Temp Pulse Resp B/P Pulse Ox O2 Delivery O2 Flow Rate FiO2 06/29/16 09:51 91 T-piece 9.00 50 06/29/16 08:04 100 45 06/29/16 06:00 91 06/29/16 04:06 94 45 06/29/16 04:00 98.9 87 26 138/69 93 06/29/16 04:00 87 06/29/16 04:00 45 06/29/16 02:00 87 06/29/16 01:02 92 40 06/29/16 00:00 90 06/29/16 00:00 45 06/29/16 00:00 98.6 90 24 128/64 93 06/28/16 22:31 18 06/28/16 22:09 94 45 06/28/16 22:00 92 06/28/16 20:00 98.8 91 25 130/67 95 06/28/16 20:00 45 06/28/16 20:00 91 06/28/16 19:08 98 45 06/28/16 18:00 96 06/28/16 16:00 98.4 104 25 128/78 92 06/28/16 16:00 45 06/28/16 16:00 104 06/28/16 14:00 93 06/28/16 12:00 98.8 94 23 130/93 98 06/28/16 12:00 45 06/28/16 12:00 94 I/O 06/28/16 06/28/16 06/28/16 06/29/16 06/29/16 06/29/16 07:00 15:00 23:00 07:00 15:00 23:00 Intake Total 350 ml 120 ml 755 ml 350 ml Output Total 300 ml 1150 ml 325 ml 500 ml Balance 50 ml -1030 ml 430 ml -150 ml Intake Oral 350 ml 120 ml 750 ml 350 ml IV Total 5 ml Output Urine Total 300 ml 1150 ml 325 ml 500 ml # Bowel Movements 0 0 0 Result Diagram: 06/27/16 0453 06/27/16 045 Objective Remarks GEN: Morbidly obese male in NAD. DERM: Warm and dry. No erythema or skin breakdown appreciated. Numerous skin folds 2/2 habitus. Bandaged R lateral malleolus c/d/i. Bandaged RUE c/d/i well healing surgical wound. HEENT: Tracheotomy site c/d/i. Poor dentition. CV: Distant heart sounds. RRR. Normal peripheral perfusion. RESP: Transmitted upper respiratory sounds, but otherwise clear to auscultation bilaterally. GI: Abdomen soft, obese, non-tender. +BS. Bruises on lower abdomen. MSK: External rotation of RLE. Patient able to move all his fingers and toes. Patient with intact sensation in all his fingers and toes. NEURO: CN grossly normal. Procedures 04/24- Started ventilation 05/02- Emergency Trach Exchange 06/03- PICC line removed 06/07- Debridement of RUE abscess (Dr. Velazquez), RUE drain placed 06/10- RUE drain removal A/P Assessment and Plan 31y with super morbid obesity, [id number] respiratory failure, tracheostomy seal leak, and HCAP with + urine, blood, wound, sputum cultures s/ p course of abx. Discharge Planning Days to weeks, pending weaning from mechanical ventilation. Ideally, return to rehab on baseline NC oxygen. 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 Problem List: (1) On mechanically assisted ventilation Status: Acute Plan: - CPAP with 10 PSV, PEEP 5, oxygen at 2 L/m at FiO2 of 45%, with O2 saturation in the low 90s%. Advance to TC/TP, as tolerated. Weaning per CC. - Pulmicort BID REYES - Duonebs q2h PRN - Singulair 10mg daily - Symbicort bid Impression: Weaning from vent appears to have hit plateau- skilled nursing plans for dispo? Acute on chronic hypoxemic respiratory failure secondary to HCAP ( resolved) and tracheostomy leak (s/p exchange 05/02). Mechanical ventilation initiated 04/24. Solumedrol (05/10-06/03) (2) Diarrhea Status: Resolved Plan: - Continue to monitor Impression: Improved. Negative C. diff PCR. Likely secondary to food intolerance or medication side effect. Chronicity unknown. Pt states "always" had, but new ailment to team. (3) Nausea Status: Chronic Plan: Chronic. Ddx: GERD vs psychosomatic vs impaired gastric emptying vs medication side effect. - Zofran 4mg IV q6h PRN nausea - Reglan 10mg ACHS PRN nausea - Protonix 20mg BID REYES - Mg-Al liquid q6h PRN dyspepsia - Ca Carbonate Tums chews 500mg q12h (4) Bacteremia Status: Acute Plan: Infectious disease following. Finished course of abx on 06/18. - Colistin 75mg q8h NEB continue - Acetaminophen 325mg PRN fever - Trend CBC, CMP daily Impression: Pseudomonas aeruginosa and Enterococcus faecalis bacteremia secondary to PICC infection vs HCAP. Repeat BCx 06/06 negative (compared to positive 06/03 culture). However, UCx 06/06 grew +Group D Enterococcus. Pt asymptomatic for urinary symptoms. Has willard placed. Likely colonized. Serial CXR show cardiomegaly w b/l pulm edema and R pleural effusion. Abx History Zosyn 4.5gm IV q6h (04/24 - 04/29) Levaquin 750mg IV q24h (04/24-04/30) Zerbaxa 1.5 g IV q8h (04/29 - 05/07) Vancomycin IV (04/24 - 05/06) Ceftriaxone IV (05/07 - 05/25) Linezolid 600 mg PO BID (05/06 - 05/13) Zosyn 3.375 q6h (06/04- 06/05) - Vancomycin IV daily goal trough 15-20, (06/03 -- 06/18) - Zerbaxa IV q8h (06/05-- 06/18) RESOLVED CONDITIONS THIS HOSPITAL VISIT - Cellulitis of Chest Wall: completed course linezolid (05/06-05/13), per ID recs - Yeast UTI: completed course Diflucan. UCx 05/01: Dionne albicans. Repeat UCx 05/05: Proteus Mirabilis - HCAP: s/p multiple abx (5) Hematoma Status: Acute Plan: - Daily dressing changes with xeroform and primapore - Daily PT/OT, as tolerated. PT targeting RUE weakness. Initial Impression: Hematoma contributing to RUE weakness x4 weeks. S/p I&D by Dr. Velazquez (06/07/16). Small hematoma found during procedure inconsistent with 6cm x 6cm x 8cm abscess suggested by MRI brachial plexus. Ddx for RUE weakness: hematoma vs C6/C7 neuropathy. L hemispheric pathology, and seizure ruled out ( see below). Unable to tolerate EMG. Imaging: - US negative for DVT (05/28) - MRI brain (04/28) no acute intracranial process - MRI C-spine (05/29): grossly wnl - EEG (05/29): diffuse mild encephalopathy vs normal Stage 2 sleep - MRI brachial plexus (06/03): "Complex multiloculated soft tissue and cystic mass 5.5 x 6 x 7.8 cm involving subscapularis muscle along anterior R scapula - Pathology report (06/07): fragments of blood clot admixed with few minute fragments of adipose and skeletal muscle tissue (6) Paroxysmal a-fib Status: Chronic Plan: -Sinus rhyth, regular rate at this time - Cardizem/diltiazem 90mg PO qid - Xarelto 20mg PO qd, per critical care (7) Hypertension Status: Chronic Plan: - Bumetanide 1mg PO qd - Cardiazem 90mg QID - Labetalol 10mg IV PRN SBP 160+ (8) CHF (congestive heart failure) Status: Chronic Plan: Suspected HF with poor EF, though unable to confirm via ECHO (04/25) due to poor imaging. BNP elevated on admission, downtrended. - Bumex 1mg PO daily + 40 KCl BID - 1.5L fluid restriction, monitor I/Os, monitor renal function, peripheral edema (9) Stable medical conditions Status: Chronic Plan: NORMOCYTIC ANEMIA - Ferrous sulfate 325mg PO daily - Multivitamin 1 tab PO daily HYPERLIPIDEMIA -Atorvastatin 10mg daily - Tricor 48mg daily MDD: Pt reports stable mood; some anhedonia suspected. Previously, refusing meals, shower, PT - Sertraline 100 mg PO daily - Seroquel 100mg HS INSOMNIA -Zolpidem 5mg HS PRN GOUT -Allopurinol 300mg daily HYPOTHYROIDISM 08/2015- TSH low, free T4 grossly wnl (05/27/16) -Synthroid 50 mcg PO daily FUNGAL INFECTION -Nystatin powder and miconazole creme to skin folds MORBID OBESITY WITH BMI 60-69 -see above plan for mechanical ventilation PAIN - Percocet 10-325 mg PO q6h - Morphine 4mg IVP q6h (10) Nutrition, metabolism, and development symptoms Status: Acute Plan: FEN: Fluids: PO (Limited 1.5L/day) Electrolytes: +40KCl BID. Chronically hypokalemic, replete per protocol Nutrition: 2Kcal heart healthy diet. Transitioned to oral feeds (05/29). Wt: Admission: 480 lbs PPX GI ppx: Protonix 20mg BID DVT ppx: Lovenox 150mg BID Pain: Oxycodone 7.5/325 q4h PRN Bowel: Senna 1 tab HS PRN dw: Dr. Conner Problem Qualifiers (1) Hypertension: Qualified Code: I10 - Essential hypertension (2) CHF (congestive heart failure): Qualified Code: I50.9 - Acute on chronic congestive heart failure, unspecified congestive heart failure type Abel Conner MD R2 Jun 29, 2016 11:31
[2016-06-29] MEDS: RESP: ALBUTEROL 2.5 MG/IPRATROPIUM 0.5 MG NEB (PRN) NEB ×2 (18:35→19:26)
[2016-06-29] MEDS: ZOLPIDEM TARTRATE 10 MG TAB PO PRN ×2 (20:25→20:28)
[2016-06-29] MEDS: oxyCODONE/ACETAMINOPHEN 10 MG/325 MG TAB PO PRN (20:26)
[2016-06-29] MEDS: QUEtiapine FUMARATE 100 MG TAB PO SCH (20:38)
[2016-06-30] VITALS (18 sets, daily range): BP systolic 120–142; BP diastolic 65–79; PULSE 85–103; RESP 20–23; TEMP 97.8–98.5; O2SAT 90–97
[2016-06-30] MEDS: LEVOTHYROXINE SODIUM 50 MCG TAB PO SCH (05:27)
[2016-06-30] MEDS: INSULIN NovoLIN REGULAR SUPPLEMENTAL SCALE SQ SCH ×5 (06:00→23:20)
[2016-06-30 06:40] LABS: BICARBONATE 37.3 MEQ/L (21.0-32.0); POTASSIUM 4.3 MEQ/L (3.5-5.1)
[2016-06-30 07:09] LABS: HEMATOCRIT 30.9 % (39.0-51.0); MEAN CELL VOLUME 83.1 FL (80.0-100.0); MEAN CORPUSCULAR HEMOGLOBIN 25.9 PG (27.0-34.0); MEAN CORPUSCULAR HGB CONC 31.2 % (32.0-36.0); PLATELET COUNT 298 TH/MM3 (150-450); RED BLOOD COUNT 3.73 MIL/MM3 (4.50-5.90); REVIEW FLAG FINAL; WHITE BLOOD COUNT 10.9 TH/MM3 (4.0-11.0)
[2016-06-30] MEDS: RESP: BUDESONIDE 0.5 MG/2 ML NEB NEB SCH ×2 (07:34→19:21)
[2016-06-30] MEDS: RESP: ALBUTEROL 2.5 MG/IPRATROPIUM 0.5 MG NEB (PRN) NEB (07:34)
[2016-06-30] MEDS: BUMETANIDE 1 MG TAB PO SCH (08:51)
[2016-06-30] MEDS: SERTRALINE HCL 100 MG TAB PO SCH (08:51)
[2016-06-30] MEDS: RIVAROXABAN 20 MG TAB PO SCH (08:51)
[2016-06-30] MEDS: ALLOPURINOL 300 MG TAB PO SCH (08:51)
[2016-06-30] MEDS: FERROUS SULFATE 325 MG (65 MG ELEMENTAL IRON) TAB PO SCH (08:51)
[2016-06-30] MEDS: ATORVASTATIN 10 MG TAB PO SCH (08:51)
[2016-06-30] MEDS: MONTELUKAST SODIUM 10 MG TAB PO SCH (08:51)
[2016-06-30] MEDS: FENOFIBRATE 48 MG TAB PO SCH (08:52)
[2016-06-30] MEDS: MICONAZOLE NITRATE 2% CREAM 15 GM TOP SCH ×2 (08:52→20:02)
[2016-06-30] MEDS: CHLORHEXIDINE 0.12% (ORAL KIT) 15 ML CUP MT SCH ×2 (08:52→20:03)
[2016-06-30] MEDS: PANTOPRAZOLE SOD 20 MG DELAYED RELEASE TAB PO SCH ×2 (08:52→20:02)
[2016-06-30] MEDS: SODIUM CHLORIDE 0.9% FLUSH 5 ML FLUSH IVF SCH ×2 (08:52→20:03)
[2016-06-30] MEDS: COLLAGENASE OINT 30 GM TUBE TOP SCH (08:52)
[2016-06-30] MEDS: MULTIVITAMIN TAB PO SCH (08:52)
[2016-06-30] MEDS: DILTIAZEM HCL 90 MG TAB PO SCH ×4 (08:52→20:02)
[2016-06-30] MEDS: NYSTATIN 100,000 U/GM PWD 15 GM BTL TOPICAL SCH ×2 (08:57→20:03)
[2016-06-30] MEDS: POTASSIUM CHLORIDE 20 MEQ CONTROLLED RELEASE TAB PO SCH ×2 (11:38→23:20)
--- NOTE | 2016-06-30 14:28 | HHI.CCPN ---
Subjective Remarks/Hospital Course 31 year old morbidly obese (BMI 68) male with chronic respiratory failure s/p tracheostomy 4 years ago, atrial fibrillation and pulmonary embolism on Xarelto , COPD, CHF and h/o HTN. He presented from [facility] with low oxygen saturation apparently his oxygen saturation was 82% on RA. He was placed back on 6L of oxygen via his trach mask and given a breathing treatment, initially improved however he started drifting back to low 80s again. Chest x-ray showed bibasilar infiltrates and pulmonary edema. Patient was admitted to the [facility] and was started on IV steroids IV vancomycin and Zosyn and Levaquin for healthcare associated pneumonia. After starting ACV, patient was more awake but there was a significant amount of air leak around his tracheostomy. Patient has had a Shiley 6.0 Proximal XLT, but the test pilot balloon had been cut off. 05/02 the patient became acutely hypoxemic with a large cuff leak, underwent emergency trach exchange at bedside by Dr. Macias. FiO2 65% PEEP 14 05/13 Patient is on ventilator via trach, on Fentanyl infusion however he is awake and alert. On PRVC with FIO2 40%. Afebrile. 05/14 No acute events overnight. Tmax 99.8. Patient is awake, alert on ventilator via trach still requiring increase O2. On PRVC with PEEP: 10 and FIO2 70%. 05/15 Pt acutely desaturated after he was found. Saturation down to 70% on 100 % oxygen. Bag and mask ventilation carried out, with eventual improvement on oxygen saturation to 85%. Patient was placed on PC/AC mode of ventilation, with PEEP of 15 and instructed to pressure of 30. Eventually oxygen saturation improved to 95%. Lasix him today as the chest x-ray from today shows increasing bilateral infiltrate and pulmonary edema. Sputum culture will be sent 05/16 Patient is on Fentanyl and Diprivan infusion but awake and alert. Afebrile. On PC/AC with PEEP:15, IP: 22, IT:1.3 and FIO2 50% 05/17 Patient is off Diprivan and remains on Fentanyl infusion for sedation. On PC/AC with PEEP: down 10 and FIO2 40%. Afebrile. 05/18 Patient remains on ventilator via trach on PC/AC with PEEP:12, FIO2 40%, IP:22, IT:1.0. On Fentanyl infusion 05/19 No acute events overnight. On Fentanyl infusion but awake and alert. Afebrile. 05/20 Tolerating C Pap 17/12 FIO2 40, sats 98%. RSBI in 20s, appears can be weaned further. Afebrile. Speech therapy evaluated and ok for regular diet. Starting with full liquid. 05/21 Will wean PSV to 15/10. Tolerated full liquids, will advance to regular diet per speech recs. 05/22 On PSV 15/10 FIO2 40 with sats 92%. Smiling today. Glad to be eating regular food again. 05/23 No acute events overnight. Remains on CPAP with PS 15, PEEP:10 and FIO2 40 %. Afebrile. Off Fentanyl drip. Afebrile. Awake and alert. 05/24 Patient is on CPAP 06/06 with 40% FIO2. Afebrile. Awake and alert, on no sedation. 05/25 No acute events overnight. Patient was placed back on PC/AC overnight. Tolerated CPAP trials during day yesterday. Awake and alert. On no drips. Afebrile. 05/26 Afebrile. Tmax 98.6. Today the patient complained of nausea requiring Zofran. The patient has a lack of an appetite, with noted hypoglycemia early this a.m. blood glucose level 69. Patient tolerating CPAP well greater than 12 hours in the last 24 hours. 05/27 The patient tolerated CPAP for over 36 hours, O2 sat a knee 94% on FIO2 40 %. The patient had an increase in appetite. The patient continues on full liquid diet. 05/28 The patient declined physical therapy treatment, yesterday and also overnight declined to be moved by nursing staff. The patient refused dinner last evening, of note patient was reevaluated by speech therapy and can consume a heart healthy diet with thin liquids. The patient continues on physical therapy for strengthening exercises of all extremities specifically noted right upper extremity continues to be weak with gross fibrillations noted in hand and forearm. 05/29 Afebrile. No change in right upper extremity weakness. The patient was seen by neurology yesterday plan for MRI today if possible in hospital MRI, and EMG studies. No complaints overnight. Patient continues to refuse to have activities performed, movement in bed. The patient appears to be depressed, psychiatry consulted. 05/30: Patient alert awake on CPAP. Following commands. Psych agrees the patient is depressed. MRI brain no acute findings 05/31: Awake alert. on PS 15/8. EMG could not be completed due to patient becoming anxious. Otherwise no acute events reported overnight 06/01: Remains PS from 11/02. Right upper extremity weakness persists. EMG to be repeated on Friday. Will need MRI of the brachial plexus. Chest x-ray is unchanged 06/02: States that "not feeling well". Febrile to 101.5. White count increasing but still within the normal range. Pancultured. We'll request ID reevaluation. 06/03: Resting in bed on C Pap/pressure support via tracheostomy. One out of 2 sets of blood cultures sent on 06/02 positive for gram-positive cocci. 06/04: Resting in bed on mechanical ventilation via tracheostomy. Afebrile overnight. MRI brachial plexus (06/03) revealed a collection near the right subscapularis muscle, possibly an abscess. Discussed with ID, orthopedics Dr. Velazquez consulted. I discussed the case with Dr. Velazquez this morning who feels this is probably an abscess however would be difficult to access surgically and he plans to set up percutaneous drainage by interventional radiology. 06/05: Resting in bed on mechanical ventilation via tracheostomy. Remains afebrile. Reportedly IR cannot do percutaneous drainage of collection involving right subscapularis muscle. 06/06: Resting in bed on mechanical ventilation via tracheostomy. Can actually speak around the trach. Remains afebrile. Dr. Velazquez evaluated patient and is scheduling surgery for drainage of fluid collection involving the right subscapularis muscle. 06/07: Resting in bed on mechanical ventilation via tracheostomy. Awaiting surgery today. 06/08: Status post I&D of collection near right shoulder/subscapularis on 06/[address] Velazquez. This morning patient is awake and alert complained of some pain at the surgical site. Remains on mechanical ventilation on C Pap/pressure support. 06/09: Sleeping, arousable. On mechanical ventilation with C Pap/pressure support overnight. Labs pending 06/10 No acute events overnight. On CPAP with PS 12, PEEP: 8, FIO2 40%. Afebrile. 06/11 Patient remains on CPAP with PS 10, PEEP: 8 and FIO2 40%. Afebrile. 06/12: No acute events overnight. Remains on CPAP 10/5. No specific complaints 06/13: Tolerating C Pap 10 over 5. Awake and alert following commands. Hemoglobin dropped from 8.6-7.1, no obvious bleeding. Sodium 140-149. Will give 1 unit of PRBC with 1 mg IV Bumex 06/14 No acute events overnight. On CPAP with PS 10, PEEP:5 and FIO2 50%. Afebrile. 06/15 No acute events overnight. Remains on CPAP 10/5 with 40% FIO2. Afebrile. 06/16 Patient remains on ventilator via trach on CPAP with PS 10, PEEP:5 and FIO2 40%. 06/17: Resting in bed on mechanical ventilation via tracheostomy. Feeling nauseous. 06/18: OOB in reclining chair. Reporting low back and leg pain that is positional. Continued nausea, denies emesis. CPAP w PS 5 FIO2 40%. Will attempt Tpiece trial today. Discontinue Vanc + Zerbaxa today per ID 06/19: No acute events overnight. Afebrile. HTN to 160/80. CPAP with PS 10. PEEP 10 FIO2 45. Failed Tpiece trial yesterday- desaturated to mid 70s. Denies SOB/CP. Nausea is less than before. Bed is broken and patient would like the mattress to "rotate". Per nursing, they are working to fix it. 06/20: No acute events overnight. Afebrile. HTN to 145/70. CPAP with PEEP 10 FIO2 45, with saturation 93=94%. Pt has no acute complaints. Denies SOB/CP/ Nausea. Didn't know why he threw up during PT yesterday. Denies pain. Still having diarrhea (chronic years in duration issue). Was eating Pringles in bed. Per nursing, does not eat hospital food- waits for mother to bring him food. He was counseled to eat the hospital food which is healthier for him and that he needs to stop eating food brought in by his mother. 06/21: Remains on mechanical ventilation, CPAP with pressure support. 06/22: On mechanical ventilation on C Pap with pressure support. Denies any nausea or abdominal pain. Appears comfortable. 06/23: Resting in bed on mechanical ventilation with C Pap/pressure support +10/ +5. Denies any shortness of breath denies any abdominal pain or nausea currently. 06/24: Refusing to get OOB with physical therapy today. I had a long discussion with the patient about the fact that he has been inpatient for months now and he is severely deconditioned. He must get out of bed with PT to clinically improve, and deconditioning is a major factor in his chronic respiratory failure. He denies chest pain or SOB. does endorse some nausea today. 06/25: tolerated 4 hours OOB yesterday with 4 hours of trach collar. plan to go 6 hours today. 06/26: tolerated OOB to chair 5 hours yesterday but only 1.5hr of trach collar due to hypoxia. 06/27: tolerated OOB to chair for 6 hours yesterday and almost 5 hours of trach collar. daily, he continues to be very resistant to participating in PT and getting OOB. He again asks if he can lay in bed today. Subjective: 06/28: tolerated 6 hours of trach collar yesterday. OOB for almost 8 hours. 06/29: continues to tolerate daily trach collar trials. OOB for 8 hours again yesterday. 06/30: tolerated 8 hours of trach collar yesterday. OOB for 7 hours. can do trach collar as tolerated. he continues to make attempts to refuse physical therapy and does not wish to participate in his care. Objective Vital Signs Date Time Temp Pulse Resp B/P Pulse Ox O2 Delivery O2 Flow Rate FiO2 06/30/16 14:00 94 06/30/16 12:00 98.2 20 142/76 94 06/30/16 11:10 T-piece 50 06/29/16 09:51 9.00 Intake and Output 06/29/16 06/29/16 06/30/16 08:00 16:00 00:00 Intake Total 350 ml 200 ml 480 ml Output Total 500 ml 450 ml 200 ml Balance -150 ml -250 ml 280 ml Result Diagram: 06/30/16 0503 06/30/16 0503 Imaging MRI 06/20/16: No official reading. Preliminary reading suggests periventricular white matter changes at basal ganglia and no evidence ischemia CXR 06/17/16: Poor penetration. Rotated image. Unable to visualize lung bases. Possible atelectasis vs infiltrate R worse than L. Objective Remarks GEN: 31yo on ventilator via trach, awakens and follows commands. Super morbidly obese. SKIN: Warm and dry. HEAD: Normocephalic. EYES: No scleral icterus. No injection or drainage. NECK: obese with large neck circumference, trachea midline. Shiley 6.0 Proximal XLT, (new trach placed 05/02/16) CV: normal rate, regular rhythm. RESP: On mechanical ventilation, Breath sounds equal bilaterally. Distant secondary to habitus. GI: Abdomen soft, obese, non-tender, nondistended. Multiple noted areas of ecchymotic bruising secondary to subcutaneous injections. MSK: No cyanosis, or edema. Pedal edema. Neuro: Arousable. Moves all extremities with focal deficit right upper extremity. RASS 0. A/P Assessment and Plan ASSESSMENT Acute hypercapnic and hypoxemic respiratory failure (Shiley 6.0 Proximal XLT) CO2 narcosis (resolved) Acute worsening of hypoxia due to lung de-recruitment (05/15/16, resolved) Healthcare associated pneumonia MDR Pseudomonas Enterococcal bacteremia Pseudomonas bacteremia Collection near right subscapularis muscle(On MRI 06/03) - hematoma status post I &D on 06/07 Sepsis CHF exacerbation Tracheostomy test pilot balloon damage -status post exchange with new Shiley 6.0 Proximal XLT 05/02/16 Probable right brachial plexus injury COPD/obesity hypoventilation syndrome Morbid Obesity BMI 60-69 History of pulmonary embolism 4 years ago Chronic atrial fibrillation Anxiety CHF (Echo 2013 EF 40-45%; ECHO 08/2015 showing a grossly normal systolic function) Hypertension Hypothyroidism Depression PLAN NEURO: CO2 narcosis - resolved Critical care polyneuropathy Right upper extremity weakness 05/21-possibly secondary to nerve compression, C6 , C7 (brachial plexus) Pain Anxiety Depression -EMG/ NCV could not be completed on 05/[address] Castillo -Clinically has right brachial plexus involvement. MRI of brachial plexus on 06/03 revealed collection involving right subscapularis muscle- s/p I & D on 06/[address] Velazquez. -Neurology Dr. Cheek-MRI brain, C spine no acute findings. -Venous Doppler RUE 05/28-negative for DVT -Continued PT daily, with strengthening exercise - I discussed again with patient that participating in PT is necessary to his medical care. -Continue Seroquel 100mg HS. Continue Zoloft 100mg daily -Decreased pain reg: Tylenol 625mg pain 1-6, Percocet 10/325 pain 7-10 RESP: Acute hypercapnic and hypoxemic respiratory failure Acute lung derecruitment 05/15 with hypoxia Healthcare associated pneumonia Tracheostomy test pilot balloon damage (Shiley 6.0 Proximal XLT) s/p new trach placement 05/02 Chronic Respiratory Failure s/p Tracheostomy 4 years ago COPD/obesity hypoventilation syndrome History of pulmonary embolism 4 years ago Leukocytosis-resolved Pulmonary edema - s/p Bronchoscopy 05/11 -follow up on BAL results negative - Pulm toilet, trach care - Continue with vent support keep sat >88% on CPAP 10, 45% FIO2. Attempt TP/TC as tolerated. Will try again today. I think there is a strong volitional component to his failing t-piece because he states he feels tired before objective evidence of increased work of breathing. - Continue DuoNeb q6h REYES + q2h PRN, Pulmicort BID, Singulair 10mg daily CV: CHF exacerbation Pulmonary edema Paroxysmal atrial fibrillation (chronic) Hyperlipidemia -Monitor HR and BP keep MAP>65mmHg -Cardizem 90mg QID, Bumex 1mg daily PO, Lipitor 10g daily, TriCor 40mg by mouth daily -continue home Xarelto. GI: Super morbid obesity with BMI of 64 Nausea GERD -Regular diet, thin liquids per speech recs -Liver US 06/03: Fatty liver, sludge in gall bladder, splenomegaly, no mechanical obstruction of bile duct noted. -Protonix 20mg BID. Zofran prn for nausea. -Multivitamin daily -Bringing in food, per nurses. Not adherent to hospital diet. Consider call to family to restrict them from bringing food. FEN/RENAL: Hypokalemia Metabolic alkalosis - Monitor renal function , I/O, electrolytes replacement per protocol. - Bumex 1mg PO daily, KCL 40meq Q12 ID: Healthcare associated pneumonia Sepsis New fever MDRO Cellulitis right arm-resolved Leukocytosis-resolved Enterococcal faecalis bacteremia, Pseudomonas bacteremia (06/02, 06/03) -Wound culture Pseudomonas MDR 04/27 -Sputum culture-Pseudomonas MDR- 04/27 -Urine cx: Proteus Mirabilis 05/05 -Sputum cx: Providencia 05/05 -Bronchoscopy and re-culture 05/10- NG -Wound cx: Proteus, Pseudomonas, Group D Enterococcus- 05/13 -Sputum cx- NG- 05/15 -Blood culture: aerobic and anaerobic bottles - enterococcus faecalis, pseudomonas aeruginosa 06/02, 06/03 -Urine culture: pseudomonas aeruginosa- 06/02 -Wound culture: pseudomonas aeruginosa- 06/02 -Sputum culture: Pseudomonas- 06/02 -Dr. Velazquez performed drainage of collection surgically on 06/07- likely hematoma -Stopped IV Vanc and Zerbaxa on 06/18. (MDR pseudomonas in blood cultures) - colistin nebs stopped 06/27 HEME: History of PE on chronic anticoagulation with Xarelto Iron deficiency anemia and anemia of critical illness. -Monitor CBC, transfused 1U PRBC 06/13 -Xarelto for PE 4 yrs ago. -Continue Xarelto. -Ferrous sulfate 300 mg/q day ENDO: Hypothyroidism -On SSI (Low scale) -Continue levothyroxine 50 mcg po daily -Free T4 1.52 PROPH: -Lower extremity SCDs (L leg only, R ankle cellulitis), continue home xarelto GI prophylaxis- Protonix 20mg BID LINES: - PICC line RUE- No DVT on US 05/02 - removed on 06/03. - Milan catheter: will keep today while on bumex Out of bed with assistance. PT out of bed with vent. OT. Dispo: Once we can get him off the ventilator, he can go back to his rehab facility. Until then, he remains in the ICU. Fletcher Brown MD Jun 30, 2016 14:28
[2016-06-30] MEDS: oxyCODONE/ACETAMINOPHEN 10 MG/325 MG TAB PO PRN (17:50)
[2016-06-30] MEDS: ZOLPIDEM TARTRATE 10 MG TAB PO PRN (20:02)
[2016-06-30] MEDS: QUEtiapine FUMARATE 100 MG TAB PO SCH (20:02)
[2016-07-01] VITALS (17 sets, daily range): BP systolic 116–150; BP diastolic 57–76; PULSE 90–108; RESP 19–21; TEMP 97.7–98.3; O2SAT 92–99
[2016-07-01] MEDS: oxyCODONE/ACETAMINOPHEN 10 MG/325 MG TAB PO PRN ×2 (02:21→11:28)
[2016-07-01] MEDS: LEVOTHYROXINE SODIUM 50 MCG TAB PO SCH (05:43)
[2016-07-01] MEDS: INSULIN NovoLIN REGULAR SUPPLEMENTAL SCALE SQ SCH ×4 (05:43→23:35)
--- NOTE | 2016-07-01 07:55 | HHI.FPPN ---
Subjective Remarks Patient is aware that the plan today is to get him out of bed and potentially walking. At the present time he is comfortable. No nausea, vomiting, diarrhea , chest pain, shortness of breath. Objective Vitals Vital Signs Date Time Temp Pulse Resp B/P Pulse Ox O2 Delivery O2 Flow Rate FiO2 07/01/16 06:00 94 07/01/16 04:06 99 40 07/01/16 04:00 103 07/01/16 04:00 45 07/01/16 04:00 98.1 103 20 130/62 92 07/01/16 02:00 90 07/01/16 01:09 93 45 07/01/16 00:00 97.7 93 19 116/73 93 07/01/16 00:00 45 07/01/16 00:00 93 06/30/16 22:00 93 06/30/16 20:00 93 06/30/16 20:00 98.5 93 23 120/70 95 06/30/16 20:00 45 06/30/16 19:22 97 45 06/30/16 18:00 103 06/30/16 17:45 96 45 06/30/16 16:00 91 06/30/16 16:00 97.8 95 20 134/79 95 06/30/16 14:00 94 06/30/16 12:00 93 06/30/16 12:00 98.2 94 20 142/76 94 06/30/16 11:10 96 T-piece 50 06/30/16 10:00 95 06/30/16 08:00 88 06/30/16 08:00 98.5 88 20 140/72 91 06/30/16 08:00 45 I/O 06/30/16 06/30/16 06/30/16 07/01/16 07/01/16 07/01/16 07:00 15:00 23:00 07:00 15:00 23:00 Intake Total 440 ml 720 ml 316 ml 320 ml Output Total 550 ml 1500 ml 225 ml 475 ml Balance -110 ml -780 ml 91 ml -155 ml Intake Oral 440 ml 720 ml 316 ml 320 ml Output Urine Total 550 ml 1500 ml 225 ml 475 ml # Bowel Movements 1 1 Result Diagram: 06/30/16 0503 06/30/16 0503 Objective Remarks GEN: Morbidly obese male in NAD. DERM: Warm and dry. No erythema or skin breakdown appreciated. Numerous skin folds 2/2 habitus. Bandaged R lateral malleolus c/d/i. Bandaged RUE c/d/i well healing surgical wound. HEENT: Tracheotomy site c/d/i. Poor dentition. CV: Distant heart sounds. RRR. Normal peripheral perfusion. RESP: Transmitted upper respiratory sounds, but otherwise clear to auscultation bilaterally. GI: Abdomen soft, obese, non-tender. +BS. Bruises on lower abdomen. MSK: External rotation of RLE. Patient able to move all his fingers and toes. Patient with intact sensation in all his fingers and toes. NEURO: CN grossly normal. Procedures 04/24- Started ventilation 05/02- Emergency Trach Exchange 06/03- PICC line removed 06/07- Debridement of RUE abscess (Dr. Velazquez), RUE drain placed 06/10- RUE drain removal A/P Assessment and Plan 31y with super morbid obesity, [id number] respiratory failure, tracheostomy seal leak, and HCAP with + urine, blood, wound, sputum cultures s/ p course of abx. Discharge Planning Days to weeks, pending weaning from mechanical ventilation. Ideally, return to rehab on baseline NC oxygen. Consider alf vent facility depending on status. Problem List: (1) On mechanically assisted ventilation Status: Acute Plan: - CPAP with 10 PSV, PEEP 5, oxygen at 2 L/m at FiO2 of 45%, with O2 saturation in the low 90s%. Advance to TC/TP, as tolerated. Weaning per CC. - Pulmicort BID REYES - Duonebs q2h PRN - Singulair 10mg daily - Symbicort bid Impression: Weaning from vent appears to have hit plateau- buttermaker helper plans for dispo? Acute on chronic hypoxemic respiratory failure secondary to HCAP ( resolved) and tracheostomy leak (s/p exchange 05/02). Mechanical ventilation initiated 04/24. Solumedrol (05/10-06/03) (2) Diarrhea Status: Resolved Plan: - Continue to monitor Impression: Improved. Negative C. diff PCR. Likely secondary to food intolerance or medication side effect. Chronicity unknown. Pt states "always" had, but new ailment to team. (3) Nausea Status: Chronic Plan: Chronic. Ddx: GERD vs psychosomatic vs impaired gastric emptying vs medication side effect. - Zofran 4mg IV q6h PRN nausea - Reglan 10mg ACHS PRN nausea - Protonix 20mg BID REYES - Mg-Al liquid q6h PRN dyspepsia - Ca Carbonate Tums chews 500mg q12h (4) Bacteremia Status: Acute Plan: Infectious disease following. Finished course of abx on 06/18. - Colistin 75mg q8h NEB continue - Acetaminophen 325mg PRN fever - Trend CBC, CMP daily Impression: Pseudomonas aeruginosa and Enterococcus faecalis bacteremia secondary to PICC infection vs HCAP. Repeat BCx 06/06 negative (compared to positive 06/03 culture). However, UCx 06/06 grew +Group D Enterococcus. Pt asymptomatic for urinary symptoms. Has willard placed. Likely colonized. Serial CXR show cardiomegaly w b/l pulm edema and R pleural effusion. Abx History Zosyn 4.5gm IV q6h (04/24 - 04/29) Levaquin 750mg IV q24h (04/24-04/30) Zerbaxa 1.5 g IV q8h (04/29 - 05/07) Vancomycin IV (04/24 - 05/06) Ceftriaxone IV (05/07 - 05/25) Linezolid 600 mg PO BID (05/06 - 05/13) Zosyn 3.375 q6h (06/04- 06/05) - Vancomycin IV daily goal trough 15-20, (06/03 -- 06/18) - Zerbaxa IV q8h (06/05-- 06/18) RESOLVED CONDITIONS THIS HOSPITAL VISIT - Cellulitis of Chest Wall: completed course linezolid (05/06-05/13), per ID recs - Yeast UTI: completed course Diflucan. UCx 05/01: Dionne albicans. Repeat UCx 05/05: Proteus Mirabilis - HCAP: s/p multiple abx (5) Hematoma Status: Acute Plan: - Daily dressing changes with xeroform and primapore - Daily PT/OT, as tolerated. PT targeting RUE weakness. Initial Impression: Hematoma contributing to RUE weakness x4 weeks. S/p I&D by Dr. Velazquez (06/07/16). Small hematoma found during procedure inconsistent with 6cm x 6cm x 8cm abscess suggested by MRI brachial plexus. Ddx for RUE weakness: hematoma vs C6/C7 neuropathy. L hemispheric pathology, and seizure ruled out ( see below). Unable to tolerate EMG. Imaging: - US negative for DVT (05/28) - MRI brain (04/28) no acute intracranial process - MRI C-spine (05/29): grossly wnl - EEG (05/29): diffuse mild encephalopathy vs normal Stage 2 sleep - MRI brachial plexus (06/03): "Complex multiloculated soft tissue and cystic mass 5.5 x 6 x 7.8 cm involving subscapularis muscle along anterior R scapula - Pathology report (06/07): fragments of blood clot admixed with few minute fragments of adipose and skeletal muscle tissue (6) Paroxysmal a-fib Status: Chronic Plan: -Sinus rhyth, regular rate at this time - Cardizem/diltiazem 90mg PO qid - Xarelto 20mg PO qd, per critical care (7) Hypertension Status: Chronic Plan: - Bumetanide 1mg PO qd - Cardiazem 90mg QID - Labetalol 10mg IV PRN SBP 160+ (8) CHF (congestive heart failure) Status: Chronic Plan: Suspected HF with poor EF, though unable to confirm via ECHO (04/25) due to poor imaging. BNP elevated on admission, downtrended. - Bumex 1mg PO daily + 40 KCl BID - 1.5L fluid restriction, monitor I/Os, monitor renal function, peripheral edema (9) Stable medical conditions Status: Chronic Plan: NORMOCYTIC ANEMIA - Ferrous sulfate 325mg PO daily - Multivitamin 1 tab PO daily HYPERLIPIDEMIA -Atorvastatin 10mg daily - Tricor 48mg daily MDD: Pt reports stable mood; some anhedonia suspected. Previously, refusing meals, shower, PT - Sertraline 100 mg PO daily - Seroquel 100mg HS INSOMNIA -Zolpidem 5mg HS PRN GOUT -Allopurinol 300mg daily HYPOTHYROIDISM 08/2015- TSH low, free T4 grossly wnl (05/27/16) -Synthroid 50 mcg PO daily FUNGAL INFECTION -Nystatin powder and miconazole creme to skin folds MORBID OBESITY WITH BMI 60-69 -see above plan for mechanical ventilation PAIN - Percocet 10-325 mg PO q6h - Morphine 4mg IVP q6h (10) Nutrition, metabolism, and development symptoms Status: Acute Plan: FEN: Fluids: PO (Limited 1.5L/day) Electrolytes: +40KCl BID. Chronically hypokalemic, replete per protocol Nutrition: 2Kcal heart healthy diet. Transitioned to oral feeds (05/29). Wt: Admission: 480 lbs PPX GI ppx: Protonix 20mg BID DVT ppx: Lovenox 150mg BID Pain: Oxycodone 7.5/325 q4h PRN Bowel: Senna 1 tab HS PRN dw: Dr. Conner Problem Qualifiers (1) Hypertension: Qualified Code: I10 - Essential hypertension (2) CHF (congestive heart failure): Qualified Code: I50.9 - Acute on chronic congestive heart failure, unspecified congestive heart failure type Abel Conner MD R2 Jul 01, 2016 07:55
[2016-07-01] MEDS: DILTIAZEM HCL 90 MG TAB PO SCH ×4 (08:58→20:09)
[2016-07-01] MEDS: MULTIVITAMIN TAB PO SCH (08:58)
[2016-07-01] MEDS: ATORVASTATIN 10 MG TAB PO SCH (08:58)
[2016-07-01] MEDS: MICONAZOLE NITRATE 2% CREAM 15 GM TOP SCH ×2 (08:58→20:10)
[2016-07-01] MEDS: CHLORHEXIDINE 0.12% (ORAL KIT) 15 ML CUP MT SCH ×2 (08:58→20:09)
[2016-07-01] MEDS: COLLAGENASE OINT 30 GM TUBE TOP SCH (08:58)
[2016-07-01] MEDS: RIVAROXABAN 20 MG TAB PO SCH (08:58)
[2016-07-01] MEDS: SERTRALINE HCL 100 MG TAB PO SCH (08:58)
[2016-07-01] MEDS: BUMETANIDE 1 MG TAB PO SCH (08:58)
[2016-07-01] MEDS: PANTOPRAZOLE SOD 20 MG DELAYED RELEASE TAB PO SCH ×2 (08:58→20:09)
[2016-07-01] MEDS: MONTELUKAST SODIUM 10 MG TAB PO SCH (08:58)
[2016-07-01] MEDS: FENOFIBRATE 48 MG TAB PO SCH (08:58)
[2016-07-01] MEDS: ALLOPURINOL 300 MG TAB PO SCH (08:58)
[2016-07-01] MEDS: FERROUS SULFATE 325 MG (65 MG ELEMENTAL IRON) TAB PO SCH (08:59)
[2016-07-01] MEDS: SODIUM CHLORIDE 0.9% FLUSH 5 ML FLUSH IVF SCH ×2 (08:59→20:09)
[2016-07-01] MEDS: NYSTATIN 100,000 U/GM PWD 15 GM BTL TOPICAL SCH ×2 (08:59→20:09)
[2016-07-01] MEDS: RESP: BUDESONIDE 0.5 MG/2 ML NEB NEB SCH ×2 (09:28→19:48)
--- NOTE | 2016-07-01 09:46 | HHI.CCPN ---
Subjective Remarks/Hospital Course 31 year old morbidly obese (BMI 68) male with chronic respiratory failure s/p tracheostomy 4 years ago, atrial fibrillation and pulmonary embolism on Xarelto , COPD, CHF and h/o HTN. He presented from [facility] with low oxygen saturation apparently his oxygen saturation was 82% on RA. He was placed back on 6L of oxygen via his trach mask and given a breathing treatment, initially improved however he started drifting back to low 80s again. Chest x-ray showed bibasilar infiltrates and pulmonary edema. Patient was admitted to the [facility] and was started on IV steroids IV vancomycin and Zosyn and Levaquin for healthcare associated pneumonia. After starting ACV, patient was more awake but there was a significant amount of air leak around his tracheostomy. Patient has had a Shiley 6.0 Proximal XLT, but the corporate pilot balloon had been cut off. 05/02 the patient became acutely hypoxemic with a large cuff leak, underwent emergency trach exchange at bedside by Dr. Macias. FiO2 65% PEEP 14 05/13 Patient is on ventilator via trach, on Fentanyl infusion however he is awake and alert. On PRVC with FIO2 40%. Afebrile. 05/14 No acute events overnight. Tmax 99.8. Patient is awake, alert on ventilator via trach still requiring increase O2. On PRVC with PEEP: 10 and FIO2 70%. 05/15 Pt acutely desaturated after he was found. Saturation down to 70% on 100 % oxygen. Bag and mask ventilation carried out, with eventual improvement on oxygen saturation to 85%. Patient was placed on PC/AC mode of ventilation, with PEEP of 15 and instructed to pressure of 30. Eventually oxygen saturation improved to 95%. Lasix him today as the chest x-ray from today shows increasing bilateral infiltrate and pulmonary edema. Sputum culture will be sent 05/16 Patient is on Fentanyl and Diprivan infusion but awake and alert. Afebrile. On PC/AC with PEEP:15, IP: 22, IT:1.3 and FIO2 50% 05/17 Patient is off Diprivan and remains on Fentanyl infusion for sedation. On PC/AC with PEEP: down 10 and FIO2 40%. Afebrile. 05/18 Patient remains on ventilator via trach on PC/AC with PEEP:12, FIO2 40%, IP:22, IT:1.0. On Fentanyl infusion 05/19 No acute events overnight. On Fentanyl infusion but awake and alert. Afebrile. 05/20 Tolerating C Pap 17/12 FIO2 40, sats 98%. RSBI in 20s, appears can be weaned further. Afebrile. Speech therapy evaluated and ok for regular diet. Starting with full liquid. 05/21 Will wean PSV to 15/10. Tolerated full liquids, will advance to regular diet per speech recs. 05/22 On PSV 15/10 FIO2 40 with sats 92%. Smiling today. Glad to be eating regular food again. 05/23 No acute events overnight. Remains on CPAP with PS 15, PEEP:10 and FIO2 40 %. Afebrile. Off Fentanyl drip. Afebrile. Awake and alert. 05/24 Patient is on CPAP 06/06 with 40% FIO2. Afebrile. Awake and alert, on no sedation. 05/25 No acute events overnight. Patient was placed back on PC/AC overnight. Tolerated CPAP trials during day yesterday. Awake and alert. On no drips. Afebrile. 05/26 Afebrile. Tmax 98.6. Today the patient complained of nausea requiring Zofran. The patient has a lack of an appetite, with noted hypoglycemia early this a.m. blood glucose level 69. Patient tolerating CPAP well greater than 12 hours in the last 24 hours. 05/27 The patient tolerated CPAP for over 36 hours, O2 sat a knee 94% on FIO2 40 %. The patient had an increase in appetite. The patient continues on full liquid diet. 05/28 The patient declined physical therapy treatment, yesterday and also overnight declined to be moved by nursing staff. The patient refused dinner last evening, of note patient was reevaluated by speech therapy and can consume a heart healthy diet with thin liquids. The patient continues on physical therapy for strengthening exercises of all extremities specifically noted right upper extremity continues to be weak with gross fibrillations noted in hand and forearm. 05/29 Afebrile. No change in right upper extremity weakness. The patient was seen by neurology yesterday plan for MRI today if possible in hospital MRI, and EMG studies. No complaints overnight. Patient continues to refuse to have activities performed, movement in bed. The patient appears to be depressed, psychiatry consulted. 05/30: Patient alert awake on CPAP. Following commands. Psych agrees the patient is depressed. MRI brain no acute findings 05/31: Awake alert. on PS 15/8. EMG could not be completed due to patient becoming anxious. Otherwise no acute events reported overnight 06/01: Remains PS from 11/02. Right upper extremity weakness persists. EMG to be repeated on Friday. Will need MRI of the brachial plexus. Chest x-ray is unchanged 06/02: States that "not feeling well". Febrile to 101.5. White count increasing but still within the normal range. Pancultured. We'll request ID reevaluation. 06/03: Resting in bed on C Pap/pressure support via tracheostomy. One out of 2 sets of blood cultures sent on 06/02 positive for gram-positive cocci. 06/04: Resting in bed on mechanical ventilation via tracheostomy. Afebrile overnight. MRI brachial plexus (06/03) revealed a collection near the right subscapularis muscle, possibly an abscess. Discussed with ID, orthopedics Dr. Velazquez consulted. I discussed the case with Dr. Velazquez this morning who feels this is probably an abscess however would be difficult to access surgically and he plans to set up percutaneous drainage by interventional radiology. 06/05: Resting in bed on mechanical ventilation via tracheostomy. Remains afebrile. Reportedly IR cannot do percutaneous drainage of collection involving right subscapularis muscle. 06/06: Resting in bed on mechanical ventilation via tracheostomy. Can actually speak around the trach. Remains afebrile. Dr. Velazquez evaluated patient and is scheduling surgery for drainage of fluid collection involving the right subscapularis muscle. 06/07: Resting in bed on mechanical ventilation via tracheostomy. Awaiting surgery today. 06/08: Status post I&D of collection near right shoulder/subscapularis on 06/[address] Velazquez. This morning patient is awake and alert complained of some pain at the surgical site. Remains on mechanical ventilation on C Pap/pressure support. 06/09: Sleeping, arousable. On mechanical ventilation with C Pap/pressure support overnight. Labs pending 06/10 No acute events overnight. On CPAP with PS 12, PEEP: 8, FIO2 40%. Afebrile. 06/11 Patient remains on CPAP with PS 10, PEEP: 8 and FIO2 40%. Afebrile. 06/12: No acute events overnight. Remains on CPAP 10/5. No specific complaints 06/13: Tolerating C Pap 10 over 5. Awake and alert following commands. Hemoglobin dropped from 8.6-7.1, no obvious bleeding. Sodium 140-149. Will give 1 unit of PRBC with 1 mg IV Bumex 06/14 No acute events overnight. On CPAP with PS 10, PEEP:5 and FIO2 50%. Afebrile. 06/15 No acute events overnight. Remains on CPAP 10/5 with 40% FIO2. Afebrile. 06/16 Patient remains on ventilator via trach on CPAP with PS 10, PEEP:5 and FIO2 40%. 06/17: Resting in bed on mechanical ventilation via tracheostomy. Feeling nauseous. 06/18: OOB in reclining chair. Reporting low back and leg pain that is positional. Continued nausea, denies emesis. CPAP w PS 5 FIO2 40%. Will attempt Tpiece trial today. Discontinue Vanc + Zerbaxa today per ID 06/19: No acute events overnight. Afebrile. HTN to 160/80. CPAP with PS 10. PEEP 10 FIO2 45. Failed Tpiece trial yesterday- desaturated to mid 70s. Denies SOB/CP. Nausea is less than before. Bed is broken and patient would like the mattress to "rotate". Per nursing, they are working to fix it. 06/20: No acute events overnight. Afebrile. HTN to 145/70. CPAP with PEEP 10 FIO2 45, with saturation 93=94%. Pt has no acute complaints. Denies SOB/CP/ Nausea. Didn't know why he threw up during PT yesterday. Denies pain. Still having diarrhea (chronic years in duration issue). Was eating Pringles in bed. Per nursing, does not eat hospital food- waits for mother to bring him food. He was counseled to eat the hospital food which is healthier for him and that he needs to stop eating food brought in by his mother. 06/21: Remains on mechanical ventilation, CPAP with pressure support. 06/22: On mechanical ventilation on C Pap with pressure support. Denies any nausea or abdominal pain. Appears comfortable. 06/23: Resting in bed on mechanical ventilation with C Pap/pressure support +10/ +5. Denies any shortness of breath denies any abdominal pain or nausea currently. 06/24: Refusing to get OOB with physical therapy today. I had a long discussion with the patient about the fact that he has been inpatient for months now and he is severely deconditioned. He must get out of bed with PT to clinically improve, and deconditioning is a major factor in his chronic respiratory failure. He denies chest pain or SOB. does endorse some nausea today. 06/25: tolerated 4 hours OOB yesterday with 4 hours of trach collar. plan to go 6 hours today. 06/26: tolerated OOB to chair 5 hours yesterday but only 1.5hr of trach collar due to hypoxia. 06/27: tolerated OOB to chair for 6 hours yesterday and almost 5 hours of trach collar. daily, he continues to be very resistant to participating in PT and getting OOB. He again asks if he can lay in bed today. 06/28: tolerated 6 hours of trach collar yesterday. OOB for almost 8 hours. 06/29: continues to tolerate daily trach collar trials. OOB for 8 hours again yesterday. 06/30: tolerated 8 hours of trach collar yesterday. OOB for 7 hours. can do trach collar as tolerated. he continues to make attempts to refuse physical therapy and does not wish to participate in his care. Subjective: 07/01: no changes. did well with 8 hours of trach collar and 8-9 hours of OOB. will attempt to stand and possibly walk in place today. this certainly is a large undertaking given how deconditioned he is, but I think the mobilization will help to continue our rehabilitation efforts. will be taxing on medical staff to physically assist him. This is likely something we can only do on a weekly basis. Objective Vital Signs Date Time Temp Pulse Resp B/P Pulse Ox O2 Delivery O2 Flow Rate FiO2 07/01/16 09:29 93 T-piece 8.00 50 07/01/16 08:00 98.2 93 20 121/57 Intake and Output 06/30/16 06/30/16 07/01/16 08:00 16:00 00:00 Intake Total 440 ml 720 ml 316 ml Output Total 550 ml 1500 ml 225 ml Balance -110 ml -780 ml 91 ml Result Diagram: 06/30/16 0503 06/30/16 0503 Imaging MRI 06/20/16: No official reading. Preliminary reading suggests periventricular white matter changes at basal ganglia and no evidence ischemia CXR 06/17/16: Poor penetration. Rotated image. Unable to visualize lung bases. Possible atelectasis vs infiltrate R worse than L. Objective Remarks GEN: 31yo on ventilator via trach, awakens and follows commands. Super morbidly obese. SKIN: Warm and dry. HEAD: Normocephalic. EYES: No scleral icterus. No injection or drainage. NECK: obese with large neck circumference, trachea midline. Shiley 6.0 Proximal XLT, (new trach placed 05/02/16) CV: normal rate, regular rhythm. RESP: On mechanical ventilation, Breath sounds equal bilaterally. Distant secondary to habitus. GI: Abdomen soft, obese, non-tender, nondistended. Multiple noted areas of ecchymotic bruising secondary to subcutaneous injections. MSK: No cyanosis, or edema. Pedal edema. Neuro: Arousable. Moves all extremities with focal deficit right upper extremity. RASS 0. A/P Assessment and Plan ASSESSMENT Acute hypercapnic and hypoxemic respiratory failure (Shiley 6.0 Proximal XLT) CO2 narcosis (resolved) Acute worsening of hypoxia due to lung de-recruitment (05/15/16, resolved) Healthcare associated pneumonia MDR Pseudomonas Enterococcal bacteremia Pseudomonas bacteremia Collection near right subscapularis muscle(On MRI 06/03) - hematoma status post I &D on 06/07 Sepsis CHF exacerbation Tracheostomy corporate pilot balloon damage -status post exchange with new Shiley 6.0 Proximal XLT 05/02/16 Probable right brachial plexus injury COPD/obesity hypoventilation syndrome Morbid Obesity BMI 60-69 History of pulmonary embolism 4 years ago Chronic atrial fibrillation Anxiety CHF (Echo 2013 EF 40-45%; ECHO 08/2015 showing a grossly normal systolic function) Hypertension Hypothyroidism Depression PLAN NEURO: CO2 narcosis - resolved Critical care polyneuropathy Right upper extremity weakness 05/21-possibly secondary to nerve compression, C6 , C7 (brachial plexus) Pain Anxiety Depression -EMG/ NCV could not be completed on 05/[address] Castillo -Clinically has right brachial plexus involvement. MRI of brachial plexus on 06/03 revealed collection involving right subscapularis muscle- s/p I & D on 06/[address] Velazquez. -Neurology Dr. Cheek-MRI brain, C spine no acute findings. -Venous Doppler RUE 05/28-negative for DVT -Continued PT daily, with strengthening exercise - I discussed again with patient that participating in PT is necessary to his medical care. -Continue Seroquel 100mg HS. Continue Zoloft 100mg daily -Decreased pain reg: Tylenol 625mg pain 1-6, Percocet 10/325 pain 7-10 RESP: Acute hypercapnic and hypoxemic respiratory failure Acute lung derecruitment 05/15 with hypoxia Healthcare associated pneumonia Tracheostomy corporate pilot balloon damage (Shiley 6.0 Proximal XLT) s/p new trach placement 05/02 Chronic Respiratory Failure s/p Tracheostomy 4 years ago COPD/obesity hypoventilation syndrome History of pulmonary embolism 4 years ago Leukocytosis-resolved Pulmonary edema - s/p Bronchoscopy 05/11 -follow up on BAL results negative - Pulm toilet, trach care - Continue with vent support keep sat >88% on CPAP 10, 45% FIO2. Attempt TP/TC as tolerated. Will try again today. I think there is a strong volitional component to his failing t-piece because he states he feels tired before objective evidence of increased work of breathing. - Continue DuoNeb q6h REYES + q2h PRN, Pulmicort BID, Singulair 10mg daily - OOB today. stand if possible. walk in place if possible. then to chair. trach collar as tolerated. CV: CHF exacerbation Pulmonary edema Paroxysmal atrial fibrillation (chronic) Hyperlipidemia -Monitor HR and BP keep MAP>65mmHg -Cardizem 90mg QID, Bumex 1mg daily PO, Lipitor 10g daily, TriCor 40mg by mouth daily -continue home Xarelto. GI: Super morbid obesity with BMI of 64 Nausea GERD -Regular diet, thin liquids per speech recs -Liver US 06/03: Fatty liver, sludge in gall bladder, splenomegaly, no mechanical obstruction of bile duct noted. -Protonix 20mg BID. Zofran prn for nausea. -Multivitamin daily -Bringing in food, per nurses. Not adherent to hospital diet. Consider call to family to restrict them from bringing food. FEN/RENAL: Hypokalemia Metabolic alkalosis - Monitor renal function , I/O, electrolytes replacement per protocol. - Bumex 1mg PO daily, KCL 40meq Q12 ID: Healthcare associated pneumonia Sepsis New fever MDRO Cellulitis right arm-resolved Leukocytosis-resolved Enterococcal faecalis bacteremia, Pseudomonas bacteremia (06/02, 06/03) -Wound culture Pseudomonas MDR 04/27 -Sputum culture-Pseudomonas MDR- 04/27 -Urine cx: Proteus Mirabilis 05/05 -Sputum cx: Providencia 05/05 -Bronchoscopy and re-culture 05/10- NG -Wound cx: Proteus, Pseudomonas, Group D Enterococcus- 05/13 -Sputum cx- NG- 05/15 -Blood culture: aerobic and anaerobic bottles - enterococcus faecalis, pseudomonas aeruginosa 06/02, 06/03 -Urine culture: pseudomonas aeruginosa- 06/02 -Wound culture: pseudomonas aeruginosa- 06/02 -Sputum culture: Pseudomonas- 06/02 -Dr. Velazquez performed drainage of collection surgically on 06/07- likely hematoma -Stopped IV Vanc and Zerbaxa on 06/18. (MDR pseudomonas in blood cultures) - colistin nebs stopped 06/27 HEME: History of PE on chronic anticoagulation with Xarelto Iron deficiency anemia and anemia of critical illness. -Monitor CBC, transfused 1U PRBC 06/13 -Xarelto for PE 4 yrs ago. -Continue Xarelto. -Ferrous sulfate 300 mg/q day ENDO: Hypothyroidism -On SSI (Low scale) -Continue levothyroxine 50 mcg po daily -Free T4 1.52 PROPH: -Lower extremity SCDs (L leg only, R ankle cellulitis), continue home xarelto GI prophylaxis- Protonix 20mg BID LINES: - PICC line RUE- No DVT on US 05/02 - removed on 06/03. - Milan catheter: will keep today while on bumex Out of bed with assistance. PT out of bed with vent. OT. Dispo: Once we can get him off the ventilator, he can go back to his rehab facility. Until then, he remains in the ICU. Fletchre Brown MD Jul 01, 2016 09:46
[2016-07-01] MEDS: POTASSIUM CHLORIDE 20 MEQ CONTROLLED RELEASE TAB PO SCH ×2 (10:50→23:35)
[2016-07-01] MEDS: RESP: ALBUTEROL 2.5 MG/IPRATROPIUM 0.5 MG NEB (PRN) NEB (19:48)
[2016-07-01] MEDS: QUEtiapine FUMARATE 100 MG TAB PO SCH (20:09)
[2016-07-01] MEDS: ZOLPIDEM TARTRATE 10 MG TAB PO PRN (20:09)
[2016-07-02] VITALS (17 sets, daily range): BP systolic 117–130; BP diastolic 62–73; PULSE 89–100; RESP 20–25; TEMP 97.9–98.4; O2SAT 92–97
[2016-07-02] MEDS: LEVOTHYROXINE SODIUM 50 MCG TAB PO SCH (04:28)
[2016-07-02] MEDS: INSULIN NovoLIN REGULAR SUPPLEMENTAL SCALE SQ SCH ×3 (04:28→17:00)
[2016-07-02] MEDS: oxyCODONE/ACETAMINOPHEN 10 MG/325 MG TAB PO PRN ×3 (04:29→20:41)
[2016-07-02 06:49] LABS: HEMATOCRIT 32.3 % (39.0-51.0); MEAN CELL VOLUME 83.9 FL (80.0-100.0); PLATELET COUNT 306 TH/MM3 (150-450); RED BLOOD COUNT 3.85 MIL/MM3 (4.50-5.90); RED CELL DISTRIBUTION WIDTH 23.9 % (11.6-17.2); REVIEW FLAG FINAL
[2016-07-02 06:56] LABS: BICARBONATE 41.1 MEQ/L (21.0-32.0); POTASSIUM 3.7 MEQ/L (3.5-5.1)
[2016-07-02] MEDS: RESP: BUDESONIDE 0.5 MG/2 ML NEB NEB SCH ×2 (07:30→19:23)
[2016-07-02] MEDS: SERTRALINE HCL 100 MG TAB PO SCH (08:48)
[2016-07-02] MEDS: ALLOPURINOL 300 MG TAB PO SCH (08:48)
[2016-07-02] MEDS: PANTOPRAZOLE SOD 20 MG DELAYED RELEASE TAB PO SCH ×2 (08:48→20:40)
[2016-07-02] MEDS: BUMETANIDE 1 MG TAB PO SCH (08:48)
[2016-07-02] MEDS: MULTIVITAMIN TAB PO SCH (08:48)
[2016-07-02] MEDS: RIVAROXABAN 20 MG TAB PO SCH (08:48)
[2016-07-02] MEDS: MONTELUKAST SODIUM 10 MG TAB PO SCH (08:48)
[2016-07-02] MEDS: ATORVASTATIN 10 MG TAB PO SCH (08:49)
[2016-07-02] MEDS: FERROUS SULFATE 325 MG (65 MG ELEMENTAL IRON) TAB PO SCH (08:49)
[2016-07-02] MEDS: DILTIAZEM HCL 90 MG TAB PO SCH ×4 (08:49→20:40)
[2016-07-02] MEDS: FENOFIBRATE 48 MG TAB PO SCH (08:49)
[2016-07-02] MEDS: CHLORHEXIDINE 0.12% (ORAL KIT) 15 ML CUP MT SCH ×2 (08:49→20:42)
[2016-07-02] MEDS: SODIUM CHLORIDE 0.9% FLUSH 5 ML FLUSH IVF SCH ×2 (08:49→20:42)
[2016-07-02] MEDS: NYSTATIN 100,000 U/GM PWD 15 GM BTL TOPICAL SCH ×2 (08:49→20:47)
[2016-07-02] MEDS: COLLAGENASE OINT 30 GM TUBE TOP SCH (08:49)
[2016-07-02] MEDS: MICONAZOLE NITRATE 2% CREAM 15 GM TOP SCH ×2 (08:49→20:48)
[2016-07-02] MEDS: POTASSIUM CHLORIDE 20 MEQ CONTROLLED RELEASE TAB PO SCH (10:32)
--- NOTE | 2016-07-02 11:42 | HHI.CCPN ---
Subjective Remarks/Hospital Course 31 year old morbidly obese (BMI 68) male with chronic respiratory failure s/p tracheostomy 4 years ago, atrial fibrillation and pulmonary embolism on Xarelto , COPD, CHF and h/o HTN. He presented from [facility] with low oxygen saturation apparently his oxygen saturation was 82% on RA. He was placed back on 6L of oxygen via his trach mask and given a breathing treatment, initially improved however he started drifting back to low 80s again. Chest x-ray showed bibasilar infiltrates and pulmonary edema. Patient was admitted to the [facility] and was started on IV steroids IV vancomycin and Zosyn and Levaquin for healthcare associated pneumonia. After starting ACV, patient was more awake but there was a significant amount of air leak around his tracheostomy. Patient has had a Shiley 6.0 Proximal XLT, but the commercial airplane pilot balloon had been cut off. 05/02 the patient became acutely hypoxemic with a large cuff leak, underwent emergency trach exchange at bedside by Dr. Macias. FiO2 65% PEEP 14 05/13 Patient is on ventilator via trach, on Fentanyl infusion however he is awake and alert. On PRVC with FIO2 40%. Afebrile. 05/14 No acute events overnight. Tmax 99.8. Patient is awake, alert on ventilator via trach still requiring increase O2. On PRVC with PEEP: 10 and FIO2 70%. 05/15 Pt acutely desaturated after he was found. Saturation down to 70% on 100 % oxygen. Bag and mask ventilation carried out, with eventual improvement on oxygen saturation to 85%. Patient was placed on PC/AC mode of ventilation, with PEEP of 15 and instructed to pressure of 30. Eventually oxygen saturation improved to 95%. Lasix him today as the chest x-ray from today shows increasing bilateral infiltrate and pulmonary edema. Sputum culture will be sent 05/16 Patient is on Fentanyl and Diprivan infusion but awake and alert. Afebrile. On PC/AC with PEEP:15, IP: 22, IT:1.3 and FIO2 50% 05/17 Patient is off Diprivan and remains on Fentanyl infusion for sedation. On PC/AC with PEEP: down 10 and FIO2 40%. Afebrile. 05/18 Patient remains on ventilator via trach on PC/AC with PEEP:12, FIO2 40%, IP:22, IT:1.0. On Fentanyl infusion 05/19 No acute events overnight. On Fentanyl infusion but awake and alert. Afebrile. 05/20 Tolerating C Pap 17/12 FIO2 40, sats 98%. RSBI in 20s, appears can be weaned further. Afebrile. Speech therapy evaluated and ok for regular diet. Starting with full liquid. 05/21 Will wean PSV to 15/10. Tolerated full liquids, will advance to regular diet per speech recs. 05/22 On PSV 15/10 FIO2 40 with sats 92%. Smiling today. Glad to be eating regular food again. 05/23 No acute events overnight. Remains on CPAP with PS 15, PEEP:10 and FIO2 40 %. Afebrile. Off Fentanyl drip. Afebrile. Awake and alert. 05/24 Patient is on CPAP 06/06 with 40% FIO2. Afebrile. Awake and alert, on no sedation. 05/25 No acute events overnight. Patient was placed back on PC/AC overnight. Tolerated CPAP trials during day yesterday. Awake and alert. On no drips. Afebrile. 05/26 Afebrile. Tmax 98.6. Today the patient complained of nausea requiring Zofran. The patient has a lack of an appetite, with noted hypoglycemia early this a.m. blood glucose level 69. Patient tolerating CPAP well greater than 12 hours in the last 24 hours. 05/27 The patient tolerated CPAP for over 36 hours, O2 sat a knee 94% on FIO2 40 %. The patient had an increase in appetite. The patient continues on full liquid diet. 05/28 The patient declined physical therapy treatment, yesterday and also overnight declined to be moved by nursing staff. The patient refused dinner last evening, of note patient was reevaluated by speech therapy and can consume a heart healthy diet with thin liquids. The patient continues on physical therapy for strengthening exercises of all extremities specifically noted right upper extremity continues to be weak with gross fibrillations noted in hand and forearm. 05/29 Afebrile. No change in right upper extremity weakness. The patient was seen by neurology yesterday plan for MRI today if possible in hospital MRI, and EMG studies. No complaints overnight. Patient continues to refuse to have activities performed, movement in bed. The patient appears to be depressed, psychiatry consulted. 05/30: Patient alert awake on CPAP. Following commands. Psych agrees the patient is depressed. MRI brain no acute findings 05/31: Awake alert. on PS 15/8. EMG could not be completed due to patient becoming anxious. Otherwise no acute events reported overnight 06/01: Remains PS from 11/02. Right upper extremity weakness persists. EMG to be repeated on Friday. Will need MRI of the brachial plexus. Chest x-ray is unchanged 06/02: States that "not feeling well". Febrile to 101.5. White count increasing but still within the normal range. Pancultured. We'll request ID reevaluation. 06/03: Resting in bed on C Pap/pressure support via tracheostomy. One out of 2 sets of blood cultures sent on 06/02 positive for gram-positive cocci. 06/04: Resting in bed on mechanical ventilation via tracheostomy. Afebrile overnight. MRI brachial plexus (06/03) revealed a collection near the right subscapularis muscle, possibly an abscess. Discussed with ID, orthopedics Dr. Velazquez consulted. I discussed the case with Dr. Velazquez this morning who feels this is probably an abscess however would be difficult to access surgically and he plans to set up percutaneous drainage by interventional radiology. 06/05: Resting in bed on mechanical ventilation via tracheostomy. Remains afebrile. Reportedly IR cannot do percutaneous drainage of collection involving right subscapularis muscle. 06/06: Resting in bed on mechanical ventilation via tracheostomy. Can actually speak around the trach. Remains afebrile. Dr. Velazquez evaluated patient and is scheduling surgery for drainage of fluid collection involving the right subscapularis muscle. 06/07: Resting in bed on mechanical ventilation via tracheostomy. Awaiting surgery today. 06/08: Status post I&D of collection near right shoulder/subscapularis on 06/[address] Velazquez. This morning patient is awake and alert complained of some pain at the surgical site. Remains on mechanical ventilation on C Pap/pressure support. 06/09: Sleeping, arousable. On mechanical ventilation with C Pap/pressure support overnight. Labs pending 06/10 No acute events overnight. On CPAP with PS 12, PEEP: 8, FIO2 40%. Afebrile. 06/11 Patient remains on CPAP with PS 10, PEEP: 8 and FIO2 40%. Afebrile. 06/12: No acute events overnight. Remains on CPAP 10/5. No specific complaints 06/13: Tolerating C Pap 10 over 5. Awake and alert following commands. Hemoglobin dropped from 8.6-7.1, no obvious bleeding. Sodium 140-149. Will give 1 unit of PRBC with 1 mg IV Bumex 06/14 No acute events overnight. On CPAP with PS 10, PEEP:5 and FIO2 50%. Afebrile. 06/15 No acute events overnight. Remains on CPAP 10/5 with 40% FIO2. Afebrile. 06/16 Patient remains on ventilator via trach on CPAP with PS 10, PEEP:5 and FIO2 40%. 06/17: Resting in bed on mechanical ventilation via tracheostomy. Feeling nauseous. 06/18: OOB in reclining chair. Reporting low back and leg pain that is positional. Continued nausea, denies emesis. CPAP w PS 5 FIO2 40%. Will attempt Tpiece trial today. Discontinue Vanc + Zerbaxa today per ID 06/19: No acute events overnight. Afebrile. HTN to 160/80. CPAP with PS 10. PEEP 10 FIO2 45. Failed Tpiece trial yesterday- desaturated to mid 70s. Denies SOB/CP. Nausea is less than before. Bed is broken and patient would like the mattress to "rotate". Per nursing, they are working to fix it. 06/20: No acute events overnight. Afebrile. HTN to 145/70. CPAP with PEEP 10 FIO2 45, with saturation 93=94%. Pt has no acute complaints. Denies SOB/CP/ Nausea. Didn't know why he threw up during PT yesterday. Denies pain. Still having diarrhea (chronic years in duration issue). Was eating Pringles in bed. Per nursing, does not eat hospital food- waits for mother to bring him food. He was counseled to eat the hospital food which is healthier for him and that he needs to stop eating food brought in by his mother. 06/21: Remains on mechanical ventilation, CPAP with pressure support. 06/22: On mechanical ventilation on C Pap with pressure support. Denies any nausea or abdominal pain. Appears comfortable. 06/23: Resting in bed on mechanical ventilation with C Pap/pressure support +10/ +5. Denies any shortness of breath denies any abdominal pain or nausea currently. 06/24: Refusing to get OOB with physical therapy today. I had a long discussion with the patient about the fact that he has been inpatient for months now and he is severely deconditioned. He must get out of bed with PT to clinically improve, and deconditioning is a major factor in his chronic respiratory failure. He denies chest pain or SOB. does endorse some nausea today. 06/25: tolerated 4 hours OOB yesterday with 4 hours of trach collar. plan to go 6 hours today. 06/26: tolerated OOB to chair 5 hours yesterday but only 1.5hr of trach collar due to hypoxia. 06/27: tolerated OOB to chair for 6 hours yesterday and almost 5 hours of trach collar. daily, he continues to be very resistant to participating in PT and getting OOB. He again asks if he can lay in bed today. 06/28: tolerated 6 hours of trach collar yesterday. OOB for almost 8 hours. 06/29: continues to tolerate daily trach collar trials. OOB for 8 hours again yesterday. 06/30: tolerated 8 hours of trach collar yesterday. OOB for 7 hours. can do trach collar as tolerated. he continues to make attempts to refuse physical therapy and does not wish to participate in his care. Subjective: 07/01: no changes. did well with 8 hours of trach collar and 8-9 hours of OOB. will attempt to stand and possibly walk in place today. this certainly is a large undertaking given how deconditioned he is, but I think the mobilization will help to continue our rehabilitation efforts. will be taxing on medical staff to physically assist him. This is likely something we can only do on a weekly basis. 07/02: took 3 steps yesterday (first time out of bed in almost 3 months). otherwise, tolerating daily t-piece with nightly CPAP. plan for OOB and steps again today. trach collar as tolerated. diamox x 3 doses for worsening contraction alkalosis. net -900cc/24h. Objective Vital Signs Date Time Temp Pulse Resp B/P Pulse Ox O2 Delivery O2 Flow Rate FiO2 07/02/16 10:00 95 07/02/16 08:00 45 07/02/16 08:00 98.4 22 130/69 93 07/02/16 07:45 Ventilator 1/2/17 09:29 8.00 Intake and Output 07/01/16 07/01/16 07/02/16 08:00 16:00 00:00 Intake Total 320 ml 720 ml 240 ml Output Total 475 ml 1600 ml 350 ml Balance -155 ml -880 ml -110 ml Result Diagram: 07/02/16 0547 07/02/16 0547 Imaging MRI 06/20/16: No official reading. Preliminary reading suggests periventricular white matter changes at basal ganglia and no evidence ischemia CXR 06/17/16: Poor penetration. Rotated image. Unable to visualize lung bases. Possible atelectasis vs infiltrate R worse than L. Objective Remarks GEN: 31yo on ventilator via trach, awakens and follows commands. Super morbidly obese. SKIN: Warm and dry. HEAD: Normocephalic. EYES: No scleral icterus. No injection or drainage. NECK: obese with large neck circumference, trachea midline. Shiley 6.0 Proximal XLT, (new trach placed 05/02/16) CV: normal rate, regular rhythm. RESP: On mechanical ventilation, Breath sounds equal bilaterally. Distant secondary to habitus. GI: Abdomen soft, obese, non-tender, nondistended. Multiple noted areas of ecchymotic bruising secondary to subcutaneous injections. MSK: No cyanosis, or edema. Pedal edema. Neuro: Arousable. Moves all extremities with focal deficit right upper extremity. RASS 0. 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 airplane pilot balloon damage -status post exchange with new Shiley 6.0 Proximal XLT 05/02/16 Probable right brachial plexus injury COPD/obesity hypoventilation syndrome Morbid Obesity BMI 60-69 History of pulmonary embolism 4 years ago Chronic atrial fibrillation Anxiety CHF (Echo 2013 EF 40-45%; ECHO 08/2015 showing a grossly normal systolic function) Hypertension Hypothyroidism Depression PLAN NEURO: CO2 narcosis - resolved Critical care polyneuropathy Right upper extremity weakness 05/21-possibly secondary to nerve compression, C6 , C7 (brachial plexus) Pain Anxiety Depression -EMG/ NCV could not be completed on 05/[address] Castillo -Clinically has right brachial plexus involvement. MRI of brachial plexus on 06/03 revealed collection involving right subscapularis muscle- s/p I & D on 06/[address] Velazquez. -Neurology Dr. Cheek-MRI brain, C spine no acute findings. -Venous Doppler RUE 05/28-negative for DVT -Continued PT daily, with strengthening exercise - I discussed again with patient that participating in PT is necessary to his medical care. -Continue Seroquel 100mg HS. Continue Zoloft 100mg daily -Decreased pain reg: Tylenol 625mg pain 1-6, Percocet 10/325 pain 7-10 RESP: Acute hypercapnic and hypoxemic respiratory failure Acute lung derecruitment 05/15 with hypoxia Healthcare associated pneumonia Tracheostomy commercial airplane pilot balloon damage (Shiley 6.0 Proximal XLT) s/p new trach placement 05/02 Chronic Respiratory Failure s/p Tracheostomy 4 years ago COPD/obesity hypoventilation syndrome History of pulmonary embolism 4 years ago Leukocytosis-resolved Pulmonary edema - s/p Bronchoscopy 05/11 -follow up on BAL results negative - Pulm toilet, trach care - Continue with vent support keep sat >88% on CPAP 10, 45% FIO2. Attempt TP/TC as tolerated. Will try again today. I think there is a strong volitional component to his failing t-piece because he states he feels tired before objective evidence of increased work of breathing. - Continue DuoNeb q6h REYES + q2h PRN, Pulmicort BID, Singulair 10mg daily - OOB today. stand if possible. walk in place if possible. then to chair. trach collar as tolerated. CV: CHF exacerbation Pulmonary edema Paroxysmal atrial fibrillation (chronic) Hyperlipidemia -Monitor HR and BP keep MAP>65mmHg -Cardizem 90mg QID, Bumex 1mg daily PO, Lipitor 10g daily, TriCor 40mg by mouth daily -continue home Xarelto. GI: Super morbid obesity with BMI of 64 Nausea GERD -Regular diet, thin liquids per speech recs -Liver US 06/03: Fatty liver, sludge in gall bladder, splenomegaly, no mechanical obstruction of bile duct noted. -Protonix 20mg BID. Zofran prn for nausea. -Multivitamin daily -Bringing in food, per nurses. Not adherent to hospital diet. Consider call to family to restrict them from bringing food. FEN/RENAL: Hypokalemia Metabolic alkalosis - Monitor renal function , I/O, electrolytes replacement per protocol. - Bumex 1mg PO daily, KCL 40meq Q12 - diamox 500mg iv q8h x 3 doses. ID: Healthcare associated pneumonia Sepsis New fever MDRO Cellulitis right arm-resolved Leukocytosis-resolved Enterococcal faecalis bacteremia, Pseudomonas bacteremia (06/02, 06/03) -Wound culture Pseudomonas MDR 04/27 -Sputum culture-Pseudomonas MDR- 04/27 -Urine cx: Proteus Mirabilis 05/05 -Sputum cx: Providencia 05/05 -Bronchoscopy and re-culture 05/10- NG -Wound cx: Proteus, Pseudomonas, Group D Enterococcus- 05/13 -Sputum cx- NG- 05/15 -Blood culture: aerobic and anaerobic bottles - enterococcus faecalis, pseudomonas aeruginosa 06/02, 06/03 -Urine culture: pseudomonas aeruginosa- 06/02 -Wound culture: pseudomonas aeruginosa- 06/02 -Sputum culture: Pseudomonas- 06/02 -Dr. Velazquez performed drainage of collection surgically on 06/07- likely hematoma -Stopped IV Vanc and Zerbaxa on 06/18. (MDR pseudomonas in blood cultures) - colistin nebs stopped 06/27 HEME: History of PE on chronic anticoagulation with Xarelto Iron deficiency anemia and anemia of critical illness. -Monitor CBC, transfused 1U PRBC 06/13 -Xarelto for PE 4 yrs ago. -Continue Xarelto. -Ferrous sulfate 300 mg/q day ENDO: Hypothyroidism -On SSI (Low scale) -Continue levothyroxine 50 mcg po daily -Free T4 1.52 PROPH: -Lower extremity SCDs (L leg only, R ankle cellulitis), continue home xarelto GI prophylaxis- Protonix 20mg BID LINES: - PICC line RUE- No DVT on US 05/02 - removed on 06/03. - Milan catheter: will keep today while on bumex Out of bed with assistance. PT out of bed with vent. OT. Dispo: Once we can get him off the ventilator, he can go back to his rehab facility. Until then, he remains in the ICU. q48h labs. Fletcher Brown MD Jul 02, 2016 11:41
[2016-07-02] MEDS: RESP: ALBUTEROL 2.5 MG/IPRATROPIUM 0.5 MG NEB (PRN) NEB (19:23)
[2016-07-02] MEDS: ZOLPIDEM TARTRATE 10 MG TAB PO PRN (20:40)
[2016-07-02] MEDS: QUEtiapine FUMARATE 100 MG TAB PO SCH (20:43)
[2016-07-03] VITALS (18 sets, daily range): BP systolic 106–126; BP diastolic 62–76; PULSE 86–100; RESP 20–28; TEMP 98–98.6; O2SAT 92–100
[2016-07-03] MEDS: INSULIN NovoLIN REGULAR SUPPLEMENTAL SCALE SQ SCH ×4 (06:00→18:00)
[2016-07-03] MEDS: LEVOTHYROXINE SODIUM 50 MCG TAB PO SCH (07:30)
[2016-07-03] MEDS: RESP: BUDESONIDE 0.5 MG/2 ML NEB NEB SCH ×2 (07:35→19:32)
[2016-07-03] MEDS: POTASSIUM CHLORIDE 20 MEQ CONTROLLED RELEASE TAB PO SCH ×3 (07:48→20:35)
[2016-07-03] MEDS: COLLAGENASE OINT 30 GM TUBE TOP SCH (09:00)
[2016-07-03] MEDS: FENOFIBRATE 48 MG TAB PO SCH (09:00)
[2016-07-03] MEDS: SODIUM CHLORIDE 0.9% FLUSH 5 ML FLUSH IVF SCH ×2 (09:00→20:34)
[2016-07-03] MEDS: MICONAZOLE NITRATE 2% CREAM 15 GM TOP SCH ×2 (09:00→20:35)
[2016-07-03] MEDS: DILTIAZEM HCL 90 MG TAB PO SCH ×4 (09:00→20:32)
[2016-07-03] MEDS: NYSTATIN 100,000 U/GM PWD 15 GM BTL TOPICAL SCH ×2 (09:00→20:35)
[2016-07-03] MEDS: MULTIVITAMIN TAB PO SCH (09:37)
[2016-07-03] MEDS: BUMETANIDE 1 MG TAB PO SCH (09:37)
[2016-07-03] MEDS: RIVAROXABAN 20 MG TAB PO SCH (09:38)
[2016-07-03] MEDS: ATORVASTATIN 10 MG TAB PO SCH (09:38)
[2016-07-03] MEDS: PANTOPRAZOLE SOD 20 MG DELAYED RELEASE TAB PO SCH ×2 (09:38→20:32)
[2016-07-03] MEDS: MONTELUKAST SODIUM 10 MG TAB PO SCH (09:38)
[2016-07-03] MEDS: FERROUS SULFATE 325 MG (65 MG ELEMENTAL IRON) TAB PO SCH (09:38)
[2016-07-03] MEDS: SERTRALINE HCL 100 MG TAB PO SCH (09:38)
[2016-07-03] MEDS: ALLOPURINOL 300 MG TAB PO SCH (09:38)
[2016-07-03] MEDS: oxyCODONE/ACETAMINOPHEN 10 MG/325 MG TAB PO PRN ×2 (14:09→18:26)
--- NOTE | 2016-07-03 14:21 | HHI.FPPN ---
Subjective Remarks No acute events overnight. Except for some borderline tachycardia with pulse 90s to 100 and pulse ox 92-97% on 40% FiO2, afebrile and vital signs stable. Per critical care note, pt took 3 steps day before yesterday (first time out of bed in almost 3 months). otherwise, tolerating daily t-piece with nightly CPAP. plan for OOB and steps again. Continuing to wean off ventilator to trach collar to room air as tolerated. Patient denies any complaints today, denies any pain. (Joshua Moreno MD R1) Objective Vitals Vital Signs Date Time Temp Pulse Resp B/P Pulse Ox O2 Delivery O2 Flow Rate FiO2 07/03/16 12:00 40 07/03/16 12:00 98.1 96 20 122/76 95 07/03/16 12:00 87 07/03/16 10:00 87 07/03/16 08:00 98.0 86 20 119/70 95 07/03/16 08:00 87 07/03/16 08:00 40 07/03/16 07:39 96 40 07/03/16 06:00 87 07/03/16 04:00 86 07/03/16 04:00 40 07/03/16 04:00 98.0 86 20 118/65 95 07/03/16 03:56 97 40 07/03/16 02:00 86 07/03/16 01:46 94 40 07/03/16 00:00 40 07/03/16 00:00 91 07/03/16 00:00 98.2 91 28 106/62 92 07/02/16 22:19 93 40 07/02/16 22:00 93 07/02/16 20:05 40 07/02/16 20:00 98.4 92 24 123/72 94 07/02/16 20:00 92 07/02/16 19:23 96 40 07/02/16 18:00 100 07/02/16 17:52 94 40 07/02/16 16:00 95 07/02/16 16:00 98.2 92 20 117/73 95 07/02/16 16:00 45 I/O 07/02/16 07/02/16 07/02/16 07/03/16 07/03/16 07/03/16 06:59 14:59 22:59 06:59 14:59 22:59 Intake Total 300 ml 840 ml 715 ml 855 ml Output Total 300 ml 1000 ml 700 ml 750 ml Balance 0 ml -160 ml 15 ml 105 ml Intake Oral 300 ml 840 ml 700 ml 850 ml IV Total 15 ml 5 ml Output Urine Total 300 ml 1000 ml 700 ml 750 ml # Bowel Movements 1 (Joshua Moreno MD R1) Result Diagram: 07/02/1654607/02/16546 Objective Remarks GEN: Morbidly obese male in NAD. DERM: Warm and dry. No erythema or skin breakdown appreciated. Numerous skin folds 2/2 habitus. HEENT: Tracheotomy site c/d/i. Poor dentition. CV: Distant heart sounds. RRR. Normal peripheral perfusion. RESP: Transmitted upper respiratory sounds, but otherwise clear to auscultation bilaterally. GI: Abdomen soft, obese, non-tender. +BS. Bruises on lower abdomen. MSK: External rotation of RLE. Patient able to move all his fingers and toes. Patient with intact sensation in all his fingers and toes. NEURO: CN grossly normal. Procedures 04/24- Started ventilation 05/02- Emergency Trach Exchange 06/03- PICC line removed 06/07- Debridement of RUE abscess (Dr. Velazquez), RUE drain placed 06/10- RUE drain removal (Joshua Moreno MD R1) A/P Assessment and Plan 31y with super morbid obesity, [id number] respiratory failure, tracheostomy seal leak, and HCAP with + urine, blood, wound, sputum cultures s/ p course of abx. Discharge Planning Days to weeks, pending weaning from mechanical ventilation. Ideally, return to rehab on baseline NC oxygen. Consider [facility] vent facility depending on status. But plan is still to get him off the ventilator, so he can go back to his rehab facility. Until then, he remains in the ICU. (Joshua Moreno MD R1) Attending Attestation Patient seen and examined. Case reviewed and discussed with the resident team. Agree with plan of care as discussed with me and documented in the resident note. (Asia Conner MD) Problem List: (1) On mechanically assisted ventilation Status: Acute Plan: - CPAP with 10 PSV, PEEP 5, oxygen at 2 L/m at FiO2 of 45%, with O2 saturation in the low 90s%. Advance to TC/TP, as tolerated. Weaning per CC. - Pulmicort BID REYES - Duonebs q2h PRN - Singulair 10mg daily - Symbicort bid Impression: Weaning from vent appears to have hit plateau- fpc plans for dispo? Acute on chronic hypoxemic respiratory failure secondary to HCAP ( resolved) and tracheostomy leak (s/p exchange 05/02). Mechanical ventilation initiated 04/24. Solumedrol (05/10-06/03) (2) Diarrhea Status: Resolved Plan: - Continue to monitor Impression: Improved. Negative C. diff PCR. Likely secondary to food intolerance or medication side effect. Chronicity unknown. Pt states "always" had, but new ailment to team. (3) Nausea Status: Chronic Plan: Chronic. Ddx: GERD vs psychosomatic vs impaired gastric emptying vs medication side effect. - Zofran 4mg IV q6h PRN nausea - Reglan 10mg ACHS PRN nausea - Protonix 20mg BID REYES - Mg-Al liquid q6h PRN dyspepsia - Ca Carbonate Tums chews 500mg q12h (4) Bacteremia Status: Acute Plan: Infectious disease following. Finished course of abx on 06/18. - Colistin 75mg q8h NEB continue - Acetaminophen 325mg PRN fever - Trend CBC, CMP daily Impression: Pseudomonas aeruginosa and Enterococcus faecalis bacteremia secondary to PICC infection vs HCAP. Repeat BCx 06/06 negative (compared to positive 06/03 culture). However, UCx 06/06 grew +Group D Enterococcus. Pt asymptomatic for urinary symptoms. Has willard placed. Likely colonized. Serial CXR show cardiomegaly w b/l pulm edema and R pleural effusion. Abx History Zosyn 4.5gm IV q6h (04/24 - 04/29) Levaquin 750mg IV q24h (04/24-04/30) Zerbaxa 1.5 g IV q8h (04/29 - 05/07) Vancomycin IV (04/24 - 05/06) Ceftriaxone IV (05/07 - 05/25) Linezolid 600 mg PO BID (05/06 - 05/13) Zosyn 3.375 q6h (06/04- 06/05) - Vancomycin IV daily goal trough 15-20, (06/03 -- 06/18) - Zerbaxa IV q8h (06/05-- 06/18) RESOLVED CONDITIONS THIS HOSPITAL VISIT - Cellulitis of Chest Wall: completed course linezolid (05/06-05/13), per ID recs - Yeast UTI: completed course Diflucan. UCx 05/01: Dionne albicans. Repeat UCx 05/05: Proteus Mirabilis - HCAP: s/p multiple abx (5) Hematoma Status: Acute Plan: - Daily dressing changes with xeroform and primapore - Daily PT/OT, as tolerated. PT targeting RUE weakness. Initial Impression: Hematoma contributing to RUE weakness x4 weeks. S/p I&D by Dr. Velazquez (06/07/16). Small hematoma found during procedure inconsistent with 6cm x 6cm x 8cm abscess suggested by MRI brachial plexus. Ddx for RUE weakness: hematoma vs C6/C7 neuropathy. L hemispheric pathology, and seizure ruled out ( see below). Unable to tolerate EMG. Imaging: - US negative for DVT (05/28) - MRI brain (04/28) no acute intracranial process - MRI C-spine (05/29): grossly wnl - EEG (05/29): diffuse mild encephalopathy vs normal Stage 2 sleep - MRI brachial plexus (06/03): "Complex multiloculated soft tissue and cystic mass 5.5 x 6 x 7.8 cm involving subscapularis muscle along anterior R scapula - Pathology report (06/07): fragments of blood clot admixed with few minute fragments of adipose and skeletal muscle tissue (6) Paroxysmal a-fib Status: Chronic Plan: -Sinus rhyth, regular rate at this time - Cardizem/diltiazem 90mg PO qid - Xarelto 20mg PO qd, per critical care (7) Hypertension Status: Chronic Plan: - Bumetanide 1mg PO qd - Cardiazem 90mg QID - Labetalol 10mg IV PRN SBP 160+ (8) CHF (congestive heart failure) Status: Chronic Plan: Suspected HF with poor EF, though unable to confirm via ECHO (04/25) due to poor imaging. BNP elevated on admission, downtrended. - Bumex 1mg PO daily + 40 KCl BID - 1.5L fluid restriction, monitor I/Os, monitor renal function, peripheral edema (9) Stable medical conditions Status: Chronic Plan: NORMOCYTIC ANEMIA - Ferrous sulfate 325mg PO daily - Multivitamin 1 tab PO daily HYPERLIPIDEMIA -Atorvastatin 10mg daily - Tricor 48mg daily MDD: Pt reports stable mood; some anhedonia suspected. Previously, refusing meals, shower, PT - Sertraline 100 mg PO daily - Seroquel 100mg HS INSOMNIA -Zolpidem 5mg HS PRN GOUT -Allopurinol 300mg daily HYPOTHYROIDISM 08/2015- TSH low, free T4 grossly wnl (05/27/16) -Synthroid 50 mcg PO daily FUNGAL INFECTION -Nystatin powder and miconazole creme to skin folds MORBID OBESITY WITH BMI 60-69 -see above plan for mechanical ventilation PAIN - Percocet 10-325 mg PO q6h - Morphine 4mg IVP q6h (10) Nutrition, metabolism, and development symptoms Status: Acute Plan: FEN: Fluids: PO (Limited 1.5L/day) Electrolytes: +40KCl BID. Chronically hypokalemic, replete per protocol Nutrition: 2Kcal heart healthy diet. Transitioned to oral feeds (05/29). Wt: Admission: 480 lbs PPX GI ppx: Protonix 20mg BID DVT ppx: Lovenox 150mg BID Pain: Oxycodone 7.5/325 q4h PRN Bowel: Senna 1 tab HS PRN dw: Dr. Conner (Joshua Moreno MD R1) Problem Qualifiers (1) Hypertension: Qualified Code: I10 - Essential hypertension (2) CHF (congestive heart failure): Qualified Code: I50.9 - Acute on chronic congestive heart failure, unspecified congestive heart failure type Joshua Moreno MD R1 Jul 03, 2016 14:21 Asia Conner MD Jul 04, 2016 13:21
[2016-07-03] MEDS: QUEtiapine FUMARATE 100 MG TAB PO SCH (20:32)
[2016-07-03] MEDS: ZOLPIDEM TARTRATE 10 MG TAB PO PRN (20:32)
--- NOTE | 2016-07-03 22:32 | HHI.CCPN ---
Subjective Remarks/Hospital Course 31 year old morbidly obese (BMI 68) male with chronic respiratory failure s/p tracheostomy 4 years ago, atrial fibrillation and pulmonary embolism on Xarelto , COPD, CHF and h/o HTN. He presented from [facility] with low oxygen saturation apparently his oxygen saturation was 82% on RA. He was placed back on 6L of oxygen via his trach mask and given a breathing treatment, initially improved however he started drifting back to low 80s again. Chest x-ray showed bibasilar infiltrates and pulmonary edema. Patient was admitted to the [facility] and was started on IV steroids IV vancomycin and Zosyn and Levaquin for healthcare associated pneumonia. After starting ACV, patient was more awake but there was a significant amount of air leak around his tracheostomy. Patient has had a Shiley 6.0 Proximal XLT, but the steamboat pilot balloon had been cut off. 05/02 the patient became acutely hypoxemic with a large cuff leak, underwent emergency trach exchange at bedside by Dr. Macias. FiO2 65% PEEP 14 05/13 Patient is on ventilator via trach, on Fentanyl infusion however he is awake and alert. On PRVC with FIO2 40%. Afebrile. 05/14 No acute events overnight. Tmax 99.8. Patient is awake, alert on ventilator via trach still requiring increase O2. On PRVC with PEEP: 10 and FIO2 70%. 05/15 Pt acutely desaturated after he was found. Saturation down to 70% on 100 % oxygen. Bag and mask ventilation carried out, with eventual improvement on oxygen saturation to 85%. Patient was placed on PC/AC mode of ventilation, with PEEP of 15 and instructed to pressure of 30. Eventually oxygen saturation improved to 95%. Lasix him today as the chest x-ray from today shows increasing bilateral infiltrate and pulmonary edema. Sputum culture will be sent 05/16 Patient is on Fentanyl and Diprivan infusion but awake and alert. Afebrile. On PC/AC with PEEP:15, IP: 22, IT:1.3 and FIO2 50% 05/17 Patient is off Diprivan and remains on Fentanyl infusion for sedation. On PC/AC with PEEP: down 10 and FIO2 40%. Afebrile. 05/18 Patient remains on ventilator via trach on PC/AC with PEEP:12, FIO2 40%, IP:22, IT:1.0. On Fentanyl infusion 05/19 No acute events overnight. On Fentanyl infusion but awake and alert. Afebrile. 05/20 Tolerating C Pap 17/12 FIO2 40, sats 98%. RSBI in 20s, appears can be weaned further. Afebrile. Speech therapy evaluated and ok for regular diet. Starting with full liquid. 05/21 Will wean PSV to 15/10. Tolerated full liquids, will advance to regular diet per speech recs. 05/22 On PSV 15/10 FIO2 40 with sats 92%. Smiling today. Glad to be eating regular food again. 05/23 No acute events overnight. Remains on CPAP with PS 15, PEEP:10 and FIO2 40 %. Afebrile. Off Fentanyl drip. Afebrile. Awake and alert. 05/24 Patient is on CPAP 06/06 with 40% FIO2. Afebrile. Awake and alert, on no sedation. 05/25 No acute events overnight. Patient was placed back on PC/AC overnight. Tolerated CPAP trials during day yesterday. Awake and alert. On no drips. Afebrile. 05/26 Afebrile. Tmax 98.6. Today the patient complained of nausea requiring Zofran. The patient has a lack of an appetite, with noted hypoglycemia early this a.m. blood glucose level 69. Patient tolerating CPAP well greater than 12 hours in the last 24 hours. 05/27 The patient tolerated CPAP for over 36 hours, O2 sat a knee 94% on FIO2 40 %. The patient had an increase in appetite. The patient continues on full liquid diet. 05/28 The patient declined physical therapy treatment, yesterday and also overnight declined to be moved by nursing staff. The patient refused dinner last evening, of note patient was reevaluated by speech therapy and can consume a heart healthy diet with thin liquids. The patient continues on physical therapy for strengthening exercises of all extremities specifically noted right upper extremity continues to be weak with gross fibrillations noted in hand and forearm. 05/29 Afebrile. No change in right upper extremity weakness. The patient was seen by neurology yesterday plan for MRI today if possible in hospital MRI, and EMG studies. No complaints overnight. Patient continues to refuse to have activities performed, movement in bed. The patient appears to be depressed, psychiatry consulted. 05/30: Patient alert awake on CPAP. Following commands. Psych agrees the patient is depressed. MRI brain no acute findings 05/31: Awake alert. on PS 15/8. EMG could not be completed due to patient becoming anxious. Otherwise no acute events reported overnight 06/01: Remains PS from 11/02. Right upper extremity weakness persists. EMG to be repeated on Friday. Will need MRI of the brachial plexus. Chest x-ray is unchanged 06/02: States that "not feeling well". Febrile to 101.5. White count increasing but still within the normal range. Pancultured. We'll request ID reevaluation. 06/03: Resting in bed on C Pap/pressure support via tracheostomy. One out of 2 sets of blood cultures sent on 06/02 positive for gram-positive cocci. 06/04: Resting in bed on mechanical ventilation via tracheostomy. Afebrile overnight. MRI brachial plexus (06/03) revealed a collection near the right subscapularis muscle, possibly an abscess. Discussed with ID, orthopedics Dr. Velazquez consulted. I discussed the case with Dr. Velazquez this morning who feels this is probably an abscess however would be difficult to access surgically and he plans to set up percutaneous drainage by interventional radiology. 06/05: Resting in bed on mechanical ventilation via tracheostomy. Remains afebrile. Reportedly IR cannot do percutaneous drainage of collection involving right subscapularis muscle. 06/06: Resting in bed on mechanical ventilation via tracheostomy. Can actually speak around the trach. Remains afebrile. Dr. Velazquez evaluated patient and is scheduling surgery for drainage of fluid collection involving the right subscapularis muscle. 06/07: Resting in bed on mechanical ventilation via tracheostomy. Awaiting surgery today. 06/08: Status post I&D of collection near right shoulder/subscapularis on 06/[address] Velazquez. This morning patient is awake and alert complained of some pain at the surgical site. Remains on mechanical ventilation on C Pap/pressure support. 06/09: Sleeping, arousable. On mechanical ventilation with C Pap/pressure support overnight. Labs pending 06/10 No acute events overnight. On CPAP with PS 12, PEEP: 8, FIO2 40%. Afebrile. 06/11 Patient remains on CPAP with PS 10, PEEP: 8 and FIO2 40%. Afebrile. 06/12: No acute events overnight. Remains on CPAP 10/5. No specific complaints 06/13: Tolerating C Pap 10 over 5. Awake and alert following commands. Hemoglobin dropped from 8.6-7.1, no obvious bleeding. Sodium 140-149. Will give 1 unit of PRBC with 1 mg IV Bumex 06/14 No acute events overnight. On CPAP with PS 10, PEEP:5 and FIO2 50%. Afebrile. 06/15 No acute events overnight. Remains on CPAP 10/5 with 40% FIO2. Afebrile. 06/16 Patient remains on ventilator via trach on CPAP with PS 10, PEEP:5 and FIO2 40%. 06/17: Resting in bed on mechanical ventilation via tracheostomy. Feeling nauseous. 06/18: OOB in reclining chair. Reporting low back and leg pain that is positional. Continued nausea, denies emesis. CPAP w PS 5 FIO2 40%. Will attempt Tpiece trial today. Discontinue Vanc + Zerbaxa today per ID 06/19: No acute events overnight. Afebrile. HTN to 160/80. CPAP with PS 10. PEEP 10 FIO2 45. Failed Tpiece trial yesterday- desaturated to mid 70s. Denies SOB/CP. Nausea is less than before. Bed is broken and patient would like the mattress to "rotate". Per nursing, they are working to fix it. 06/20: No acute events overnight. Afebrile. HTN to 145/70. CPAP with PEEP 10 FIO2 45, with saturation 93=94%. Pt has no acute complaints. Denies SOB/CP/ Nausea. Didn't know why he threw up during PT yesterday. Denies pain. Still having diarrhea (chronic years in duration issue). Was eating Pringles in bed. Per nursing, does not eat hospital food- waits for mother to bring him food. He was counseled to eat the hospital food which is healthier for him and that he needs to stop eating food brought in by his mother. 06/21: Remains on mechanical ventilation, CPAP with pressure support. 06/22: On mechanical ventilation on C Pap with pressure support. Denies any nausea or abdominal pain. Appears comfortable. 06/23: Resting in bed on mechanical ventilation with C Pap/pressure support +10/ +5. Denies any shortness of breath denies any abdominal pain or nausea currently. 06/24: Refusing to get OOB with physical therapy today. I had a long discussion with the patient about the fact that he has been inpatient for months now and he is severely deconditioned. He must get out of bed with PT to clinically improve, and deconditioning is a major factor in his chronic respiratory failure. He denies chest pain or SOB. does endorse some nausea today. 06/25: tolerated 4 hours OOB yesterday with 4 hours of trach collar. plan to go 6 hours today. 06/26: tolerated OOB to chair 5 hours yesterday but only 1.5hr of trach collar due to hypoxia. 06/27: tolerated OOB to chair for 6 hours yesterday and almost 5 hours of trach collar. daily, he continues to be very resistant to participating in PT and getting OOB. He again asks if he can lay in bed today. 06/28: tolerated 6 hours of trach collar yesterday. OOB for almost 8 hours. 06/29: continues to tolerate daily trach collar trials. OOB for 8 hours again yesterday. 06/30: tolerated 8 hours of trach collar yesterday. OOB for 7 hours. can do trach collar as tolerated. he continues to make attempts to refuse physical therapy and does not wish to participate in his care. Subjective: 07/01: no changes. did well with 8 hours of trach collar and 8-9 hours of OOB. will attempt to stand and possibly walk in place today. this certainly is a large undertaking given how deconditioned he is, but I think the mobilization will help to continue our rehabilitation efforts. will be taxing on medical staff to physically assist him. This is likely something we can only do on a weekly basis. 07/02: took 3 steps yesterday (first time out of bed in almost 3 months). otherwise, tolerating daily t-piece with nightly CPAP. plan for OOB and steps again today. trach collar as tolerated. diamox x 3 doses for worsening contraction alkalosis. net -900cc/24h. 07/03: OOB and a few steps again yesterday. trying to push him to longer t-piece intervals with fewer rests on CPAP. OOB all day again today. net euvolemic yesterday. lab holiday today. Objective Vital Signs Date Time Temp Pulse Resp B/P Pulse Ox O2 Delivery O2 Flow Rate FiO2 07/03/16 22:05 93 40 07/03/16 20:00 100 07/03/16 16:00 98.4 20 108/76 07/02/16 07:45 Ventilator 07/01/16 09:29 8.00 Intake and Output 07/02/16 07/02/16 07/02/16 07:59 15:59 23:59 Intake Total 300 ml 840 ml 715 ml Output Total 300 ml 1000 ml 700 ml Balance 0 ml -160 ml 15 ml Result Diagram: 07/02/16 0547 07/02/16 0547 Imaging MRI 06/20/16: No official reading. Preliminary reading suggests periventricular white matter changes at basal ganglia and no evidence ischemia CXR 06/17/16: Poor penetration. Rotated image. Unable to visualize lung bases. Possible atelectasis vs infiltrate R worse than L. Objective Remarks GEN: 31yo on ventilator via trach, awakens and follows commands. Super morbidly obese. SKIN: Warm and dry. HEAD: Normocephalic. EYES: No scleral icterus. No injection or drainage. NECK: obese with large neck circumference, trachea midline. Shiley 6.0 Proximal XLT, (new trach placed 05/02/16) CV: normal rate, regular rhythm. RESP: On mechanical ventilation, Breath sounds equal bilaterally. Distant secondary to habitus. GI: Abdomen soft, obese, non-tender, nondistended. Multiple noted areas of ecchymotic bruising secondary to subcutaneous injections. MSK: No cyanosis, or edema. Pedal edema. Neuro: Arousable. Moves all extremities with focal deficit right upper extremity. RASS 0. A/P Assessment and Plan ASSESSMENT Acute hypercapnic and hypoxemic respiratory failure (Shiley 6.0 Proximal XLT) CO2 narcosis (resolved) Acute worsening of hypoxia due to lung de-recruitment (05/15/16, resolved) Healthcare associated pneumonia MDR Pseudomonas Enterococcal bacteremia Pseudomonas bacteremia Collection near right subscapularis muscle(On MRI 06/03) - hematoma status post I &D on 06/07 Sepsis CHF exacerbation Tracheostomy steamboat pilot balloon damage -status post exchange with new Shiley 6.0 Proximal XLT 05/02/16 Probable right brachial plexus injury COPD/obesity hypoventilation syndrome Morbid Obesity BMI 60-69 History of pulmonary embolism 4 years ago Chronic atrial fibrillation Anxiety CHF (Echo 2013 EF 40-45%; ECHO 08/2015 showing a grossly normal systolic function) Hypertension Hypothyroidism Depression PLAN NEURO: CO2 narcosis - resolved Critical care polyneuropathy Right upper extremity weakness 05/21-possibly secondary to nerve compression, C6 , C7 (brachial plexus) Pain Anxiety Depression -EMG/ NCV could not be completed on 05/[address] Castillo -Clinically has right brachial plexus involvement. MRI of brachial plexus on 06/03 revealed collection involving right subscapularis muscle- s/p I & D on 06/[address] Velazquez. -Neurology Dr. Cheek-MRI brain, C spine no acute findings. -Venous Doppler RUE 05/28-negative for DVT -Continued PT daily, with strengthening exercise - I discussed again with patient that participating in PT is necessary to his medical care. -Continue Seroquel 100mg HS. Continue Zoloft 100mg daily -Decreased pain reg: Tylenol 625mg pain 1-6, Percocet 10/325 pain 7-10 RESP: Acute hypercapnic and hypoxemic respiratory failure Acute lung derecruitment 05/15 with hypoxia Healthcare associated pneumonia Tracheostomy steamboat pilot balloon damage (Shiley 6.0 Proximal XLT) s/p new trach placement 05/02 Chronic Respiratory Failure s/p Tracheostomy 4 years ago COPD/obesity hypoventilation syndrome History of pulmonary embolism 4 years ago Leukocytosis-resolved Pulmonary edema - s/p Bronchoscopy 05/11 -follow up on BAL results negative - Pulm toilet, trach care - Continue with vent support keep sat >88% on CPAP 10, 45% FIO2. Attempt TP/TC as tolerated. Will try again today. I think there is a strong volitional component to his failing t-piece because he states he feels tired before objective evidence of increased work of breathing. - Continue DuoNeb q6h REYES + q2h PRN, Pulmicort BID, Singulair 10mg daily - OOB today. stand if possible. walk in place if possible. then to chair. trach collar as tolerated. CV: CHF exacerbation Pulmonary edema Paroxysmal atrial fibrillation (chronic) Hyperlipidemia -Monitor HR and BP keep MAP>65mmHg -Cardizem 90mg QID, Bumex 1mg daily PO, Lipitor 10g daily, TriCor 40mg by mouth daily -continue home Xarelto. GI: Super morbid obesity with BMI of 64 Nausea GERD -Regular diet, thin liquids per speech recs -Liver US 06/03: Fatty liver, sludge in gall bladder, splenomegaly, no mechanical obstruction of bile duct noted. -Protonix 20mg BID. Zofran prn for nausea. -Multivitamin daily -Bringing in food, per nurses. Not adherent to hospital diet. Consider call to family to restrict them from bringing food. FEN/RENAL: Hypokalemia Metabolic alkalosis - Monitor renal function , I/O, electrolytes replacement per protocol. - Bumex 1mg PO daily, KCL 40meq Q12 ID: Healthcare associated pneumonia Sepsis New fever MDRO Cellulitis right arm-resolved Leukocytosis-resolved Enterococcal faecalis bacteremia, Pseudomonas bacteremia (06/02, 06/03) -Wound culture Pseudomonas MDR 04/27 -Sputum culture-Pseudomonas MDR- 04/27 -Urine cx: Proteus Mirabilis 05/05 -Sputum cx: Providencia 05/05 -Bronchoscopy and re-culture 05/10- NG -Wound cx: Proteus, Pseudomonas, Group D Enterococcus- 05/13 -Sputum cx- NG- 05/15 -Blood culture: aerobic and anaerobic bottles - enterococcus faecalis, pseudomonas aeruginosa 06/02, 06/03 -Urine culture: pseudomonas aeruginosa- 06/02 -Wound culture: pseudomonas aeruginosa- 06/02 -Sputum culture: Pseudomonas- 06/02 -Dr. Velazquez performed drainage of collection surgically on 06/07- likely hematoma -Stopped IV Vanc and Zerbaxa on 06/18. (MDR pseudomonas in blood cultures) - colistin nebs stopped 06/27 HEME: History of PE on chronic anticoagulation with Xarelto Iron deficiency anemia and anemia of critical illness. -Monitor CBC, transfused 1U PRBC 06/13 -Xarelto for PE 4 yrs ago. -Continue Xarelto. -Ferrous sulfate 300 mg/q day ENDO: Hypothyroidism -On SSI (Low scale) -Continue levothyroxine 50 mcg po daily -Free T4 1.52 PROPH: -Lower extremity SCDs (L leg only, R ankle cellulitis), continue home xarelto GI prophylaxis- Protonix 20mg BID LINES: - PICC line RUE- No DVT on US 05/02 - removed on 06/03. - Milan catheter: will keep today while on bumex Out of bed with assistance. PT out of bed with vent. OT. Dispo: Once we can get him off the ventilator, he can go back to his rehab facility. Until then, he remains in the ICU. q48 labs. Fletcher Brown MD Jul 03, 2016 22:32
[2016-07-04] VITALS (18 sets, daily range): BP systolic 109–134; BP diastolic 55–87; PULSE 91–100; RESP 16–25; TEMP 98.2–98.8; O2SAT 88–96
[2016-07-04 05:08] LABS: HEMATOCRIT 32.2 % (39.0-51.0); MEAN CELL VOLUME 83.8 FL (80.0-100.0); MEAN CORPUSCULAR HEMOGLOBIN 26.2 PG (27.0-34.0); MEAN CORPUSCULAR HGB CONC 31.3 % (32.0-36.0); PLATELET COUNT 274 TH/MM3 (150-450); RED BLOOD COUNT 3.84 MIL/MM3 (4.50-5.90); RED CELL DISTRIBUTION WIDTH 23.7 % (11.6-17.2); REVIEW FLAG FINAL; WHITE BLOOD COUNT 10.2 TH/MM3 (4.0-11.0)
[2016-07-04] MEDS: LEVOTHYROXINE SODIUM 50 MCG TAB PO SCH (05:15)
[2016-07-04] MEDS: oxyCODONE/ACETAMINOPHEN 10 MG/325 MG TAB PO PRN ×3 (05:16→16:37)
[2016-07-04 05:21] LABS: BICARBONATE 41.5 MEQ/L (21.0-32.0); POTASSIUM 3.2 MEQ/L (3.5-5.1)
[2016-07-04] MEDS: INSULIN NovoLIN REGULAR SUPPLEMENTAL SCALE SQ SCH ×4 (05:22→18:00)
[2016-07-04] MEDS: RESP: BUDESONIDE 0.5 MG/2 ML NEB NEB SCH ×2 (07:53→19:33)
[2016-07-04] MEDS ORDERED: POTASSIUM CHLORIDE 20 MEQ CONTROLLED RELEASE TAB PO ONE (10:00)
[2016-07-04] MEDS: ATORVASTATIN 10 MG TAB PO SCH (10:02)
[2016-07-04] MEDS: POTASSIUM CHLORIDE 20 MEQ CONTROLLED RELEASE TAB PO SCH (10:03)
[2016-07-04] MEDS: PANTOPRAZOLE SOD 20 MG DELAYED RELEASE TAB PO SCH ×2 (10:03→20:16)
[2016-07-04] MEDS: FERROUS SULFATE 325 MG (65 MG ELEMENTAL IRON) TAB PO SCH (10:03)
[2016-07-04] MEDS: MONTELUKAST SODIUM 10 MG TAB PO SCH (10:03)
[2016-07-04] MEDS: DILTIAZEM HCL 90 MG TAB PO SCH ×4 (10:03→20:16)
[2016-07-04] MEDS: FENOFIBRATE 48 MG TAB PO SCH (10:03)
[2016-07-04] MEDS: SODIUM CHLORIDE 0.9% FLUSH 5 ML FLUSH IVF SCH ×2 (10:04→20:16)
[2016-07-04] MEDS: RIVAROXABAN 20 MG TAB PO SCH (10:04)
[2016-07-04] MEDS: SERTRALINE HCL 100 MG TAB PO SCH (10:04)
[2016-07-04] MEDS: BUMETANIDE 1 MG TAB PO SCH (10:04)
[2016-07-04] MEDS: ALLOPURINOL 300 MG TAB PO SCH (10:04)
[2016-07-04] MEDS: NYSTATIN 100,000 U/GM PWD 15 GM BTL TOPICAL SCH ×2 (10:05→20:16)
[2016-07-04] MEDS: COLLAGENASE OINT 30 GM TUBE TOP SCH (10:06)
[2016-07-04] MEDS: CHLORHEXIDINE 0.12% (ORAL KIT) 15 ML CUP MT SCH ×3 (10:07→20:00)
[2016-07-04] MEDS: MULTIVITAMIN TAB PO SCH (10:07)
[2016-07-04] MEDS: MICONAZOLE NITRATE 2% CREAM 15 GM TOP SCH ×2 (10:08→20:17)
[2016-07-04] MEDS: RESP: ALBUTEROL 2.5 MG/IPRATROPIUM 0.5 MG NEB (PRN) NEB (18:04)
--- NOTE | 2016-07-04 18:31 | HHI.CCPN ---
Subjective Remarks/Hospital Course 31 year old morbidly obese (BMI 68) male with chronic respiratory failure s/p tracheostomy 4 years ago, atrial fibrillation and pulmonary embolism on Xarelto , COPD, CHF and h/o HTN. He presented from [facility] with low oxygen saturation apparently his oxygen saturation was 82% on RA. He was placed back on 6L of oxygen via his trach mask and given a breathing treatment, initially improved however he started drifting back to low 80s again. Chest x-ray showed bibasilar infiltrates and pulmonary edema. Patient was admitted to the [facility] service and was started on IV steroids IV vancomycin and Zosyn and Levaquin for healthcare associated pneumonia. After starting ACV, patient was more awake but there was a significant amount of air leak around his tracheostomy. Patient has had a Shiley 6.0 Proximal XLT, but the pest control pilot balloon had been cut off. 05/02 the patient became acutely hypoxemic with a large cuff leak, underwent emergency trach exchange at bedside by Dr. Macias. FiO2 65% PEEP 14 05/13 Patient is on ventilator via trach, on Fentanyl infusion however he is awake and alert. On PRVC with FIO2 40%. Afebrile. 05/14 No acute events overnight. Tmax 99.8. Patient is awake, alert on ventilator via trach still requiring increase O2. On PRVC with PEEP: 10 and FIO2 70%. 05/15 Pt acutely desaturated after he was found. Saturation down to 70% on 100 % oxygen. Bag and mask ventilation carried out, with eventual improvement on oxygen saturation to 85%. Patient was placed on PC/AC mode of ventilation, with PEEP of 15 and instructed to pressure of 30. Eventually oxygen saturation improved to 95%. Lasix him today as the chest x-ray from today shows increasing bilateral infiltrate and pulmonary edema. Sputum culture will be sent 05/16 Patient is on Fentanyl and Diprivan infusion but awake and alert. Afebrile. On PC/AC with PEEP:15, IP: 22, IT:1.3 and FIO2 50% 05/17 Patient is off Diprivan and remains on Fentanyl infusion for sedation. On PC/AC with PEEP: down 10 and FIO2 40%. Afebrile. 05/18 Patient remains on ventilator via trach on PC/AC with PEEP:12, FIO2 40%, IP:22, IT:1.0. On Fentanyl infusion 05/19 No acute events overnight. On Fentanyl infusion but awake and alert. Afebrile. 05/20 Tolerating C Pap 17/12 FIO2 40, sats 98%. RSBI in 20s, appears can be weaned further. Afebrile. Speech therapy evaluated and ok for regular diet. Starting with full liquid. 05/21 Will wean PSV to 15/10. Tolerated full liquids, will advance to regular diet per speech recs. 05/22 On PSV 15/10 FIO2 40 with sats 92%. Smiling today. Glad to be eating regular food again. 05/23 No acute events overnight. Remains on CPAP with PS 15, PEEP:10 and FIO2 40 %. Afebrile. Off Fentanyl drip. Afebrile. Awake and alert. 05/24 Patient is on CPAP 06/06 with 40% FIO2. Afebrile. Awake and alert, on no sedation. 05/25 No acute events overnight. Patient was placed back on PC/AC overnight. Tolerated CPAP trials during day yesterday. Awake and alert. On no drips. Afebrile. 05/26 Afebrile. Tmax 98.6. Today the patient complained of nausea requiring Zofran. The patient has a lack of an appetite, with noted hypoglycemia early this a.m. blood glucose level 69. Patient tolerating CPAP well greater than 12 hours in the last 24 hours. 05/27 The patient tolerated CPAP for over 36 hours, O2 sat a knee 94% on FIO2 40 %. The patient had an increase in appetite. The patient continues on full liquid diet. 05/28 The patient declined physical therapy treatment, yesterday and also overnight declined to be moved by nursing staff. The patient refused dinner last evening, of note patient was reevaluated by speech therapy and can consume a heart healthy diet with thin liquids. The patient continues on physical therapy for strengthening exercises of all extremities specifically noted right upper extremity continues to be weak with gross fibrillations noted in hand and forearm. 05/29 Afebrile. No change in right upper extremity weakness. The patient was seen by neurology yesterday plan for MRI today if possible in hospital MRI, and EMG studies. No complaints overnight. Patient continues to refuse to have activities performed, movement in bed. The patient appears to be depressed, psychiatry consulted. 05/30: Patient alert awake on CPAP. Following commands. Psych agrees the patient is depressed. MRI brain no acute findings 05/31: Awake alert. on PS 15/8. EMG could not be completed due to patient becoming anxious. Otherwise no acute events reported overnight 06/01: Remains PS from 11/02. Right upper extremity weakness persists. EMG to be repeated on Friday. Will need MRI of the brachial plexus. Chest x-ray is unchanged 06/02: States that "not feeling well". Febrile to 101.5. White count increasing but still within the normal range. Pancultured. We'll request ID reevaluation. 06/03: Resting in bed on C Pap/pressure support via tracheostomy. One out of 2 sets of blood cultures sent on 06/02 positive for gram-positive cocci. 06/04: Resting in bed on mechanical ventilation via tracheostomy. Afebrile overnight. MRI brachial plexus (06/03) revealed a collection near the right subscapularis muscle, possibly an abscess. Discussed with ID, orthopedics Dr. Velazquez consulted. I discussed the case with Dr. Velazquez this morning who feels this is probably an abscess however would be difficult to access surgically and he plans to set up percutaneous drainage by interventional radiology. 06/05: Resting in bed on mechanical ventilation via tracheostomy. Remains afebrile. Reportedly IR cannot do percutaneous drainage of collection involving right subscapularis muscle. 06/06: Resting in bed on mechanical ventilation via tracheostomy. Can actually speak around the trach. Remains afebrile. Dr. Velazquez evaluated patient and is scheduling surgery for drainage of fluid collection involving the right subscapularis muscle. 06/07: Resting in bed on mechanical ventilation via tracheostomy. Awaiting surgery today. 06/08: Status post I&D of collection near right shoulder/subscapularis on 06/[address] Velazquez. This morning patient is awake and alert complained of some pain at the surgical site. Remains on mechanical ventilation on C Pap/pressure support. 06/09: Sleeping, arousable. On mechanical ventilation with C Pap/pressure support overnight. Labs pending 06/10 No acute events overnight. On CPAP with PS 12, PEEP: 8, FIO2 40%. Afebrile. 06/11 Patient remains on CPAP with PS 10, PEEP: 8 and FIO2 40%. Afebrile. 06/12: No acute events overnight. Remains on CPAP 10/5. No specific complaints 06/13: Tolerating C Pap 10 over 5. Awake and alert following commands. Hemoglobin dropped from 8.6-7.1, no obvious bleeding. Sodium 140-149. Will give 1 unit of PRBC with 1 mg IV Bumex 06/14 No acute events overnight. On CPAP with PS 10, PEEP:5 and FIO2 50%. Afebrile. 06/15 No acute events overnight. Remains on CPAP 10/5 with 40% FIO2. Afebrile. 06/16 Patient remains on ventilator via trach on CPAP with PS 10, PEEP:5 and FIO2 40%. 06/17: Resting in bed on mechanical ventilation via tracheostomy. Feeling nauseous. 06/18: OOB in reclining chair. Reporting low back and leg pain that is positional. Continued nausea, denies emesis. CPAP w PS 5 FIO2 40%. Will attempt Tpiece trial today. Discontinue Vanc + Zerbaxa today per ID 06/19: No acute events overnight. Afebrile. HTN to 160/80. CPAP with PS 10. PEEP 10 FIO2 45. Failed Tpiece trial yesterday- desaturated to mid 70s. Denies SOB/CP. Nausea is less than before. Bed is broken and patient would like the mattress to "rotate". Per nursing, they are working to fix it. 06/20: No acute events overnight. Afebrile. HTN to 145/70. CPAP with PEEP 10 FIO2 45, with saturation 93=94%. Pt has no acute complaints. Denies SOB/CP/ Nausea. Didn't know why he threw up during PT yesterday. Denies pain. Still having diarrhea (chronic years in duration issue). Was eating Pringles in bed. Per nursing, does not eat hospital food- waits for mother to bring him food. He was counseled to eat the hospital food which is healthier for him and that he needs to stop eating food brought in by his mother. 06/21: Remains on mechanical ventilation, CPAP with pressure support. 06/22: On mechanical ventilation on C Pap with pressure support. Denies any nausea or abdominal pain. Appears comfortable. 06/23: Resting in bed on mechanical ventilation with C Pap/pressure support +10/ +5. Denies any shortness of breath denies any abdominal pain or nausea currently. 06/24: Refusing to get OOB with physical therapy today. I had a long discussion with the patient about the fact that he has been inpatient for months now and he is severely deconditioned. He must get out of bed with PT to clinically improve, and deconditioning is a major factor in his chronic respiratory failure. He denies chest pain or SOB. does endorse some nausea today. 06/25: tolerated 4 hours OOB yesterday with 4 hours of trach collar. plan to go 6 hours today. 06/26: tolerated OOB to chair 5 hours yesterday but only 1.5hr of trach collar due to hypoxia. 06/27: tolerated OOB to chair for 6 hours yesterday and almost 5 hours of trach collar. daily, he continues to be very resistant to participating in PT and getting OOB. He again asks if he can lay in bed today. 06/28: tolerated 6 hours of trach collar yesterday. OOB for almost 8 hours. 06/29: continues to tolerate daily trach collar trials. OOB for 8 hours again yesterday. 06/30: tolerated 8 hours of trach collar yesterday. OOB for 7 hours. can do trach collar as tolerated. he continues to make attempts to refuse physical therapy and does not wish to participate in his care. Subjective: 07/01: no changes. did well with 8 hours of trach collar and 8-9 hours of OOB. will attempt to stand and possibly walk in place today. this certainly is a large undertaking given how deconditioned he is, but I think the mobilization will help to continue our rehabilitation efforts. will be taxing on medical staff to physically assist him. This is likely something we can only do on a weekly basis. 07/02: took 3 steps yesterday (first time out of bed in almost 3 months). otherwise, tolerating daily t-piece with nightly CPAP. plan for OOB and steps again today. trach collar as tolerated. diamox x 3 doses for worsening contraction alkalosis. net -900cc/24h. 07/03: OOB and a few steps again yesterday. trying to push him to longer t-piece intervals with fewer rests on CPAP. OOB all day again today. net euvolemic yesterday. lab holiday today. 1/5: to chair today. trach collar as tolerated. I really think he could go most of the night if not all night on trach collar, but he keeps insisting on going back on the vent to rest. brought to my attention by family practice team for ankle skin breakdown. agree with podiatry consult. Objective Vital Signs Date Time Temp Pulse Resp B/P Pulse Ox O2 Delivery O2 Flow Rate FiO2 07/04/16 14:00 97 07/04/16 12:00 98.2 20 134/73 94 07/04/16 10:49 T-piece 70 07/03/16 23:00 8.00 Intake and Output 07/03/16 07/03/16 07/04/16 08:00 16:00 00:00 Intake Total 855 ml 737 ml 605 ml Output Total 750 ml 825 ml 775 ml Balance 105 ml -88 ml -170 ml Result Diagram: 07/04/16 0416 07/04/16 0416 Imaging MRI 06/20/16: No official reading. Preliminary reading suggests periventricular white matter changes at basal ganglia and no evidence ischemia CXR 06/17/16: Poor penetration. Rotated image. Unable to visualize lung bases. Possible atelectasis vs infiltrate R worse than L. Objective Remarks GEN: 31yo on ventilator via trach, awakens and follows commands. Super morbidly obese. SKIN: Warm and dry. HEAD: Normocephalic. EYES: No scleral icterus. No injection or drainage. NECK: obese with large neck circumference, trachea midline. Shiley 6.0 Proximal XLT, (new trach placed 05/02/16) CV: normal rate, regular rhythm. RESP: On mechanical ventilation, Breath sounds equal bilaterally. Distant secondary to habitus. GI: Abdomen soft, obese, non-tender, nondistended. Multiple noted areas of ecchymotic bruising secondary to subcutaneous injections. MSK: No cyanosis, or edema. Pedal edema. Neuro: Arousable. Moves all extremities with focal deficit right upper extremity. RASS 0. A/P Assessment and Plan ASSESSMENT Acute hypercapnic and hypoxemic respiratory failure (Shiley 6.0 Proximal XLT) CO2 narcosis (resolved) Acute worsening of hypoxia due to lung de-recruitment (05/15/16, resolved) Healthcare associated pneumonia MDR Pseudomonas Enterococcal bacteremia Pseudomonas bacteremia Collection near right subscapularis muscle(On MRI 06/03) - hematoma status post I &D on 06/07 Sepsis CHF exacerbation Tracheostomy pest control pilot balloon damage -status post exchange with new Shiley 6.0 Proximal XLT 05/02/16 Probable right brachial plexus injury COPD/obesity hypoventilation syndrome Morbid Obesity BMI 60-69 History of pulmonary embolism 4 years ago Chronic atrial fibrillation Anxiety CHF (Echo 2013 EF 40-45%; ECHO 08/2015 showing a grossly normal systolic function) Hypertension Hypothyroidism Depression PLAN NEURO: CO2 narcosis - resolved Critical care polyneuropathy Right upper extremity weakness 05/21-possibly secondary to nerve compression, C6 , C7 (brachial plexus) Pain Anxiety Depression -EMG/ NCV could not be completed on 05/[address] Castillo -Clinically has right brachial plexus involvement. MRI of brachial plexus on 06/03 revealed collection involving right subscapularis muscle- s/p I & D on 06/[address] Velazquez. -Neurology Dr. Cheek-MRI brain, C spine no acute findings. -Venous Doppler RUE 05/28-negative for DVT -Continued PT daily, with strengthening exercise - I discussed again with patient that participating in PT is necessary to his medical care. -Continue Seroquel 100mg HS. Continue Zoloft 100mg daily -Decreased pain reg: Tylenol 625mg pain 1-6, Percocet 10/325 pain 7-10 RESP: Acute hypercapnic and hypoxemic respiratory failure Acute lung derecruitment 05/15 with hypoxia Healthcare associated pneumonia Tracheostomy pest control pilot balloon damage (Shiley 6.0 Proximal XLT) s/p new trach placement 05/02 Chronic Respiratory Failure s/p Tracheostomy 4 years ago COPD/obesity hypoventilation syndrome History of pulmonary embolism 4 years ago Leukocytosis-resolved Pulmonary edema - s/p Bronchoscopy 05/11 -follow up on BAL results negative - Pulm toilet, trach care - Continue with vent support keep sat >88% on CPAP 10, 45% FIO2. Attempt TP/TC as tolerated. Will try again today. I think there is a strong volitional component to his failing t-piece because he states he feels tired before objective evidence of increased work of breathing. - Continue DuoNeb q6h REYES + q2h PRN, Pulmicort BID, Singulair 10mg daily - trach collar as tolerated. including trach collar at night if possible. OOB to chair. CV: CHF exacerbation Pulmonary edema Paroxysmal atrial fibrillation (chronic) Hyperlipidemia -Monitor HR and BP keep MAP>65mmHg -Cardizem 90mg QID, Bumex 1mg daily PO, Lipitor 10g daily, TriCor 40mg by mouth daily -continue home Xarelto. GI: Super morbid obesity with BMI of 64 Nausea GERD -Regular diet, thin liquids per speech recs -Liver US 06/03: Fatty liver, sludge in gall bladder, splenomegaly, no mechanical obstruction of bile duct noted. -Protonix 20mg BID. Zofran prn for nausea. -Multivitamin daily -Bringing in food, per nurses. Not adherent to hospital diet. Consider call to family to restrict them from bringing food. FEN/RENAL: Hypokalemia Metabolic alkalosis - Monitor renal function , I/O, electrolytes replacement per protocol. - Bumex 1mg PO daily, KCL 40meq Q12 ID: Healthcare associated pneumonia Sepsis New fever MDRO Cellulitis right arm-resolved Leukocytosis-resolved Enterococcal faecalis bacteremia, Pseudomonas bacteremia (06/02, 06/03) -Wound culture Pseudomonas MDR 04/27 -Sputum culture-Pseudomonas MDR- 04/27 -Urine cx: Proteus Mirabilis 05/05 -Sputum cx: Providencia 05/05 -Bronchoscopy and re-culture 05/10- NG -Wound cx: Proteus, Pseudomonas, Group D Enterococcus- 05/13 -Sputum cx- NG- 05/15 -Blood culture: aerobic and anaerobic bottles - enterococcus faecalis, pseudomonas aeruginosa 06/02, 06/03 -Urine culture: pseudomonas aeruginosa- 06/02 -Wound culture: pseudomonas aeruginosa- 06/02 -Sputum culture: Pseudomonas- 06/02 -Dr. Velazquez performed drainage of collection surgically on 06/07- likely hematoma -Stopped IV Vanc and Zerbaxa on 06/18. (MDR pseudomonas in blood cultures) - colistin nebs stopped 06/27 HEME: History of PE on chronic anticoagulation with Xarelto Iron deficiency anemia and anemia of critical illness. -Monitor CBC, transfused 1U PRBC 06/13 -Xarelto for PE 4 yrs ago. -Continue Xarelto. -Ferrous sulfate 300 mg/q day ENDO: Hypothyroidism -On SSI (Low scale) -Continue levothyroxine 50 mcg po daily -Free T4 1.52 MSK: --agree with podiatry consult. PROPH: -Lower extremity SCDs (L leg only, R ankle cellulitis), continue home xarelto GI prophylaxis- Protonix 20mg BID LINES: - PICC line RUE- No DVT on US 05/02 - removed on 06/03. - Willard catheter is greater than 1 month old with sediment clogging. will d/c and attempt to give him a willard holiday. if unable, we will place new willard catheter. Out of bed with assistance. PT out of bed with vent. OT. Dispo: Once we can get him off the ventilator, he can go back to his rehab facility. Until then, he remains in the ICU. q48h labs. Fletcher Brown MD Jul 04, 2016 18:31
[2016-07-04] MEDS: QUEtiapine FUMARATE 100 MG TAB PO SCH (20:16)
[2016-07-04] MEDS: ZOLPIDEM TARTRATE 10 MG TAB PO PRN (20:22)
[2016-07-05] VITALS (17 sets, daily range): BP systolic 110–131; BP diastolic 61–77; PULSE 83–100; RESP 16–27; TEMP 98–98.6; O2SAT 89–98
[2016-07-05] MEDS: POTASSIUM CHLORIDE 20 MEQ CONTROLLED RELEASE TAB PO SCH ×3 (00:37→23:03)
[2016-07-05] MEDS: LEVOTHYROXINE SODIUM 50 MCG TAB PO SCH (05:02)
[2016-07-05] MEDS: INSULIN NovoLIN REGULAR SUPPLEMENTAL SCALE SQ SCH ×3 (05:02→12:00)
[2016-07-05] MEDS: RESP: BUDESONIDE 0.5 MG/2 ML NEB NEB SCH ×2 (08:13→19:28)
[2016-07-05] MEDS: SODIUM CHLORIDE 0.9% FLUSH 5 ML FLUSH IVF SCH ×2 (08:24→20:04)
[2016-07-05] MEDS: CHLORHEXIDINE 0.12% (ORAL KIT) 15 ML CUP MT SCH ×2 (08:24→20:00)
[2016-07-05] MEDS: FENOFIBRATE 48 MG TAB PO SCH (08:25)
[2016-07-05] MEDS: ALLOPURINOL 300 MG TAB PO SCH (08:25)
[2016-07-05] MEDS: RIVAROXABAN 20 MG TAB PO SCH (08:25)
[2016-07-05] MEDS: SERTRALINE HCL 100 MG TAB PO SCH (08:25)
[2016-07-05] MEDS: ATORVASTATIN 10 MG TAB PO SCH (08:25)
[2016-07-05] MEDS: MICONAZOLE NITRATE 2% CREAM 15 GM TOP SCH ×2 (08:25→20:05)
[2016-07-05] MEDS: MULTIVITAMIN TAB PO SCH (08:25)
[2016-07-05] MEDS: PANTOPRAZOLE SOD 20 MG DELAYED RELEASE TAB PO SCH ×2 (08:25→20:04)
[2016-07-05] MEDS: BUMETANIDE 1 MG TAB PO SCH (08:25)
[2016-07-05] MEDS: DILTIAZEM HCL 90 MG TAB PO SCH ×4 (08:25→20:04)
[2016-07-05] MEDS: FERROUS SULFATE 325 MG (65 MG ELEMENTAL IRON) TAB PO SCH (08:25)
[2016-07-05] MEDS: MONTELUKAST SODIUM 10 MG TAB PO SCH (08:25)
[2016-07-05] MEDS: NYSTATIN 100,000 U/GM PWD 15 GM BTL TOPICAL SCH ×2 (08:26→20:06)
[2016-07-05] MEDS: COLLAGENASE OINT 30 GM TUBE TOP SCH (09:00)
--- NOTE | 2016-07-05 09:13 | HHI.FPPN ---
Subjective Remarks Patient resting comfortably in bed. His right foot is laying on the lateral malleolus; he acknowledges that his foot needs to be inverted to offload that area. Denies cp, n/v/d, sob. States he is working with PT. (Abel Conner MD R2 ) Objective Vitals Vital Signs Date Time Temp Pulse Resp B/P Pulse Ox O2 Delivery O2 Flow Rate FiO2 07/05/16 08:17 96 50 07/05/16 06:00 91 07/05/16 04:00 50 07/05/16 04:00 83 07/05/16 04:00 83 19 110/61 96 07/05/16 03:31 96 50 07/05/16 02:00 83 07/05/16 00:27 98 50 07/05/16 00:00 98.6 86 17 112/69 94 07/05/16 00:00 50 07/05/16 00:00 86 07/04/16 22:20 92 50 07/04/16 22:00 93 07/04/16 20:00 98.3 91 17 120/68 91 07/04/16 20:00 91 07/04/16 20:00 50 07/04/16 19:34 90 50 07/04/16 19:00 93 Mechanical Ventilator 45 07/04/16 18:00 96 07/04/16 16:00 98.8 94 25 132/87 96 07/04/16 16:00 94 07/04/16 14:00 97 07/04/16 12:00 100 07/04/16 12:00 98.2 100 20 134/73 94 07/04/16 10:49 93 T-piece 70 07/04/16 10:00 88 T-Piece 70 07/04/16 10:00 100 I/O 07/04/16 07/04/16 07/04/16 07/05/16 07/05/16 07/05/16 07:00 15:00 23:00 07:00 15:00 23:00 Intake Total 355 ml 1200 ml 360 ml 30 ml Output Total 800 ml 725 ml 325 ml 350 ml Balance -445 ml 475 ml 35 ml -320 ml Intake Oral 350 ml 1200 ml 360 ml 30 ml IV Total 5 ml Output Urine Total 800 ml 725 ml 325 ml 350 ml # Bowel Movements 1 1 (Abel Conner MD R2) Result Diagram: 07/04/1641507/04/16415 Objective Remarks GEN: Morbidly obese male in NAD. DERM: Warm and dry. Right lateral malleous with 1.5 X 1.5 cm area of skin break down. Area in bandage. Numerous skin folds 2/2 habitus. HEENT: Tracheotomy site c/d/i. Poor dentition. CV: Distant heart sounds. RRR. Normal peripheral perfusion. RESP: Transmitted upper respiratory sounds, but otherwise clear to auscultation bilaterally. GI: Abdomen soft, obese, non-tender. +BS. Bruises on lower abdomen. MSK: External rotation of RLE. Patient able to move all his fingers and toes. Patient with intact sensation in all his fingers and toes. NEURO: CN grossly normal. Procedures 04/24- Started ventilation 05/02- Emergency Trach Exchange 06/03- PICC line removed 06/07- Debridement of RUE abscess (Dr. Velazquez), RUE drain placed 06/10- RUE drain removal (Abel Conner MD R2) A/P Assessment and Plan 31y with super morbid obesity, [id number] respiratory failure, tracheostomy seal leak, and HCAP with + urine, blood, wound, sputum cultures s/ p course of abx. Discharge Planning Days to weeks, pending weaning from mechanical ventilation. Ideally, return to rehab on baseline NC oxygen. 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 But plan is still to get him off the ventilator, so he can go back to his rehab facility. Until then, he remains in the ICU. (Abel Conner MD R2) Attending Attestation Patient seen and examined. Case reviewed and discussed with the resident team. Agree with plan of care as discussed with me and documented in the resident note. (Asia Conner MD) Problem List: (1) On mechanically assisted ventilation Status: Acute Plan: - CPAP with 10 PSV, PEEP 5, oxygen at 2 L/m at FiO2 of 45%, with O2 saturation in the low 90s%. Advance to TC/TP, as tolerated. Weaning per CC. - Pulmicort BID REYES - Duonebs q2h PRN - Singulair 10mg daily - Symbicort bid Impression: Weaning from vent appears to have hit plateau- group home plans for dispo? Acute on chronic hypoxemic respiratory failure secondary to HCAP ( resolved) and tracheostomy leak (s/p exchange 05/02). Mechanical ventilation initiated 04/24. Solumedrol (05/10-06/03) (2) Ankle ulcer Status: Acute Plan: Podiatry consult -Offload area of skin breakdown -Continue bandages -Wound care consult (3) Diarrhea Status: Resolved Plan: - Continue to monitor Impression: Improved. Negative C. diff PCR. Likely secondary to food intolerance or medication side effect. Chronicity unknown. Pt states "always" had, but new ailment to team. (4) Nausea Status: Chronic Plan: Chronic. Ddx: GERD vs psychosomatic vs impaired gastric emptying vs medication side effect. - Zofran 4mg IV q6h PRN nausea - Reglan 10mg ACHS PRN nausea - Protonix 20mg BID REYES - Mg-Al liquid q6h PRN dyspepsia - Ca Carbonate Tums chews 500mg q12h (5) Bacteremia Status: Resolved Plan: Infectious disease following. Finished course of abx on 06/18. - Colistin 75mg q8h NEB continue - Acetaminophen 325mg PRN fever - Trend CBC, CMP daily Impression: Pseudomonas aeruginosa and Enterococcus faecalis bacteremia secondary to PICC infection vs HCAP. Repeat BCx 06/06 negative (compared to positive 06/03 culture). However, UCx 06/06 grew +Group D Enterococcus. Pt asymptomatic for urinary symptoms. Has willard placed. Likely colonized. Serial CXR show cardiomegaly w b/l pulm edema and R pleural effusion. Abx History Zosyn 4.5gm IV q6h (04/24 - 04/29) Levaquin 750mg IV q24h (04/24-04/30) Zerbaxa 1.5 g IV q8h (04/29 - 05/07) Vancomycin IV (04/24 - 05/06) Ceftriaxone IV (05/07 - 05/25) Linezolid 600 mg PO BID (05/06 - 05/13) Zosyn 3.375 q6h (06/04- 06/05) - Vancomycin IV daily goal trough 15-20, (06/03 -- 06/18) - Zerbaxa IV q8h (06/05-- 06/18) RESOLVED CONDITIONS THIS HOSPITAL VISIT - Cellulitis of Chest Wall: completed course linezolid (05/06-05/13), per ID recs - Yeast UTI: completed course Diflucan. UCx 05/01: Dionne albicans. Repeat UCx 05/05: Proteus Mirabilis - HCAP: s/p multiple abx (6) Hematoma Status: Acute Plan: - Daily dressing changes with xeroform and primapore - Daily PT/OT, as tolerated. PT targeting RUE weakness. Initial Impression: Hematoma contributing to RUE weakness x4 weeks. S/p I&D by Dr. Velazquez (06/07/16). Small hematoma found during procedure inconsistent with 6cm x 6cm x 8cm abscess suggested by MRI brachial plexus. Ddx for RUE weakness: hematoma vs C6/C7 neuropathy. L hemispheric pathology, and seizure ruled out ( see below). Unable to tolerate EMG. Imaging: - US negative for DVT (05/28) - MRI brain (04/28) no acute intracranial process - MRI C-spine (05/29): grossly wnl - EEG (05/29): diffuse mild encephalopathy vs normal Stage 2 sleep - MRI brachial plexus (06/03): "Complex multiloculated soft tissue and cystic mass 5.5 x 6 x 7.8 cm involving subscapularis muscle along anterior R scapula - Pathology report (06/07): fragments of blood clot admixed with few minute fragments of adipose and skeletal muscle tissue (7) Paroxysmal a-fib Status: Chronic Plan: -Sinus rhyth, regular rate at this time - Cardizem/diltiazem 90mg PO qid - Xarelto 20mg PO qd, per critical care (8) Hypertension Status: Chronic Plan: - Bumetanide 1mg PO qd - Cardiazem 90mg QID - Labetalol 10mg IV PRN SBP 160+ (9) CHF (congestive heart failure) Status: Chronic Plan: Suspected HF with poor EF, though unable to confirm via ECHO (04/25) due to poor imaging. BNP elevated on admission, downtrended. - Bumex 1mg PO daily + 40 KCl BID - 1.5L fluid restriction, monitor I/Os, monitor renal function, peripheral edema (10) Stable medical conditions Status: Chronic Plan: NORMOCYTIC ANEMIA - Ferrous sulfate 325mg PO daily - Multivitamin 1 tab PO daily HYPERLIPIDEMIA -Atorvastatin 10mg daily - Tricor 48mg daily MDD: Pt reports stable mood; some anhedonia suspected. Previously, refusing meals, shower, PT - Sertraline 100 mg PO daily - Seroquel 100mg HS INSOMNIA -Zolpidem 5mg HS PRN GOUT -Allopurinol 300mg daily HYPOTHYROIDISM 08/2015- TSH low, free T4 grossly wnl (05/27/16) -Synthroid 50 mcg PO daily FUNGAL INFECTION -Nystatin powder and miconazole creme to skin folds MORBID OBESITY WITH BMI 60-69 -see above plan for mechanical ventilation PAIN - Percocet 10-325 mg PO q6h - Morphine 4mg IVP q6h (11) Nutrition, metabolism, and development symptoms Status: Acute Plan: FEN: Fluids: PO (Limited 1.5L/day) Electrolytes: +40KCl BID. Chronically hypokalemic, replete per protocol Nutrition: 2Kcal heart healthy diet. Transitioned to oral feeds (05/29). Wt: Admission: 480 lbs PPX GI ppx: Protonix 20mg BID DVT ppx: Lovenox 150mg BID Pain: Oxycodone 7.5/325 q4h PRN Bowel: Senna 1 tab HS PRN dw: Dr. Conner (Abel Conner MD R2) Problem Qualifiers (1) Ankle ulcer: Qualified Code: L97.311 - Ankle ulcer, right, limited to breakdown of skin (2) Hypertension: Qualified Code: I10 - Essential hypertension (3) CHF (congestive heart failure): Qualified Code: I50.9 - Acute on chronic congestive heart failure, unspecified congestive heart failure type Abel Conner MD R2 Jul 05, 2016 09:13 Asia Conner MD Jul 05, 2016 09:26
--- NOTE | 2016-07-05 14:15 | PD.POD.CON ---
Patient Intake Chief Complaint Ulceration right lateral leg Consult Requested by Dr. Conner remote medical coder Reason for Consult Evaluation and treatment of ulceration Primary Care Physician Unknown History of Present Illness Patient is a 31-year-old morbidly obese male who is seen in the ICU. He has an externally rotated right lower leg and impressions against his chair as well as his bed. He is developed a superficial ulceration of the right lateral leg with purulent drainage. I was consulted to evaluate the patient for treatment. Coded Allergies: *MDRO Multi-Drug Resistant Organism (Verified Adverse Reaction, Unknown, 05/08/16) XDR Pseudomonas aeruginosa (sputum) - 09/18/15; (sputum & wound) - 04/27/16 Preferred Language to Discuss: Maltese Barriers to Learning: None Teaching Method: Discussion Vital Signs Date Time Temp Pulse Resp B/P Pulse Ox O2 Delivery O2 Flow Rate FiO2 07/05/16 08:17 96 50 07/05/16 08:00 90 07/05/16 08:00 50 07/05/16 08:00 98.4 90 27 119/69 95 07/05/16 07:00 Mechanical Ventilator 50 07/05/16 06:00 91 07/05/16 04:00 50 07/05/16 04:00 83 07/05/16 04:00 83 19 110/61 96 07/05/16 03:31 96 50 07/05/16 02:00 83 07/05/16 00:27 98 50 07/05/16 00:00 98.6 86 17 112/69 94 07/05/16 00:00 50 07/05/16 00:00 86 07/04/16 22:20 92 50 07/04/16 22:00 93 07/04/16 20:00 98.3 91 17 120/68 91 07/04/16 20:00 91 07/04/16 20:00 50 07/04/16 19:34 90 50 07/04/16 19:00 93 Mechanical Ventilator 45 07/04/16 18:00 96 07/04/16 16:00 98.8 94 25 132/87 96 07/04/16 16:00 94 Pain scale used: 0-10 numeric scale Pain score: 0 Medications Current Medications IV Flush 2 ml 2 ml UNSCH PRN IVF FLUSH AFTER USING IV ACCESS; Start 04/24/16 at 12:15; Stop 04/24/16 at 17:13; Status DC Sodium Chloride 1,000 ml @ 999 mls/hr BOLUS ONCE IV Last administered on at 13:57; Start 04/24/16 at 13:45; Stop 04/24/16 at 14:45; Status DC Sodium Chloride 1,000 ml @ 999 mls/hr BOLUS ONCE IV Last administered on at 15:05; Start 04/24/16 at 13:45; Stop 04/24/16 at 14:45; Status DC Sodium Chloride 1,000 ml @ 999 mls/hr BOLUS ONCE IV Last administered on at 16:27; Start 04/24/16 at 13:45; Stop 04/24/16 at 14:45; Status DC Vancomycin HCl 1500 mg/Sodium Chloride 530 ml @ 265 mls/hr ONCE ONCE IV Last administered on 04/24/16at 15:05; Start 04/24/16 at 13:45; Stop 04/24/16 at 15 :44; Status DC Piperacillin Sod/ Tazobactam Sod (Zosyn 4.5 Gm Premix) 100 ml @ 200 mls/hr ONCE ONCE IV Last administered on 04/24/16at 13:57; Start 04/24/16 at 13:45; Stop 04/24/16 at 14:14; Status DC Ondansetron HCl (Zofran Inj) 4 mg STK-MED ONCE .ROUTE ; Start 04/24/16 at 15:07 ; Stop 04/24/16 at 15:08; Status DC Acetaminophen (Tylenol) 650 mg Q4H PRN PO Pain (1-6) or Temp > 100.4 Last administered on 06/25/16at 12:29; Start 04/24/16 at 15:15 IV Flush (NS Flush) 2 ml UNSCH PRN FLUSH FLUSH AFTER USING IV ACCESS Last administered on 05/13/16at 21:22; Start 04/24/16 at 15:15; Stop 06/06/16 at 09: 22; Status DC IV Flush (NS Flush) 2 ml BID FLUSH Last administered on 06/07/16at 07:35; Start 04/24/16 at 21:00; Stop 06/07/16 at 12:42; Status DC Naloxone HCl (Narcan Inj) 0.4 mg UNSCH PRN IV SEE LABEL COMMENTS; Start at 15:15 Ondansetron HCl (Zofran Inj) 4 mg ONCE ONCE IV PUSH Last administered on 04/24at 15:34; Start 04/24/16 at 15:30; Stop 04/24/16 at 15:31; Status DC Allopurinol (Zyloprim) 300 mg DAILY PO Last administered on 07/05/16 08:25; Start 04/25/16 at 09:00 Atorvastatin Calcium (Lipitor) 10 mg DAILY PO Last administered on 07/05/16 08: 25; Start 04/25/16 at 09:00 Fenofibrate (Tricor) 48 mg DAILY PO Last administered on 07/05/16 08:25; Start 04/25/16 at 09:00 Furosemide (Lasix) 40 mg BID PO Last administered on 05/16/16at 19:47; Start 04/24/16 at 21:00; Stop 05/17/16 at 08:31; Status DC Levothyroxine Sodium (Synthroid) 50 mcg DAILY@06 PO Last administered on 05:02; Start 04/25/16 at 06:00 Miconazole Nitrate (Micatin 2% Cream) 1 applic BID TOP Last administered on 06/02/16at 21:57; Start 04/24/16 at 21:00; Stop 06/03/16 at 07:15; Status DC Montelukast Sodium (Singulair) 10 mg DAILY PO Last administered on 07/05/16 08: 25; Start 04/25/16 at 09:00 Potassium Chloride (KCl) 10 meq BID PO ; Start 04/24/16 at 21:00; Stop at 13:24; Status DC Prednisone (Deltasone) 5 mg DAILY PO ; Start 04/25/16 at 09:00; Stop 04/25/16 at 09:00; Status DC Rivaroxaban (Xarelto) 20 mg DAILY PO ; Start 04/25/16 at 09:00; Stop 06/28/16 at 07:33; Status DC Zolpidem Tartrate (Ambien) 5 mg HS PRN PO INSOMNIA Last administered on at 19:40; Start 04/24/16 at 15:15; Stop 05/29/16 at 12:12; Status DC Budesonide/ Formoterol Fumarate (Symbicort 160-4.5 Inh) 2 puff BID INH Last administered on 04/25/16at 19:40; Start 04/24/16 at 21:00; Status Hold Non-Formulary Medication 6 mg 6 mg HS PO ; Start 04/24/16 at 21:00; Status UNV Vancomycin HCl 1500 mg/Sodium Chloride 530 ml @ 265 mls/hr Q24H IV ; Start at 15:05; Status UNV Piperacillin Sod/ Tazobactam Sod (Zosyn 4.5 Gm Premix) 100 ml @ 200 mls/hr Q6H IV Last administered on 04/29/16at 03:26; Start 04/24/16 at 17:00; Stop 04/29 at 10:08; Status DC Furosemide 20 mg 20 mg ONCE ONCE PO Last administered on 04/24/16at 16:22; Start 04/24/16 at 15:30; Stop 04/24/16 at 15:31; Status DC Pharmacy Profile Note 0 ml @ 0 mls/hr UNSCH OTHER ; Start 04/24/16 at 15:30; Stop 04/30/16 at 10:38; Status DC Vancomycin HCl/ Sodium Chloride (Vancomycin Inj/ NS 500 ml Inj) 540 ml @ 250 mls/hr Q12H IV Last administered on 04/29/16at 23:10; Start 04/25/16 at 00:00 ; Stop 04/30/16 at 10:38; Status DC Miscellaneous Information SPECIFIC LAB TO BE DRAWN:VANCOMYCIN TROUGH DATE TO... ONCE ONCE XX Last administered on 04/25/16at 23:45; Start 04/25/16 at 23:45; Stop 04/25/16 at 23:46; Status DC Levofloxacin/ Dextrose (Levaquin 750 Mg Premix Inj) 150 ml @ 100 mls/hr Q24H IV Last administered on 04/29/16at 17:51; Start 04/24/16 at 18:00; Stop at 10:39; Status DC Miscellaneous Information Patient in critical care unit? Ass... [id number] Last administered on 04/24/16at 20:30; Start 04/24/16 at 20:30 Chlorhexidine Gluconate (Chlorhexidine 2% Cloth) 3 pack DAILY@04 TOP Last administered on 04/28/16at 04:00; Start 04/25/16 at 04:00; Stop 04/29/16 at 04 :01; Status DC Chlorhexidine Gluconate (Chlorhexidine 2% Cloth) 3 pack UNSCH PRN TOP HYGIENIC CARE; Start 04/24/16 at 20:30; Stop 04/29/16 at 20:17; Status DC Methylprednisolone Sodium Succinate (SoluMEDROL INJ) 40 mg Q12HR IV PUSH ; Start 04/24/16 at 22:15; Stop 04/24/16 at 22:39; Status DC Furosemide (Lasix Inj) 20 mg BID@09,18 IV PUSH Last administered on 04/26/16at 17:04; Start 04/24/16 at 22:15; Stop 04/27/16 at 08:29; Status DC Chlorhexidine Gluconate 15 ml 15 ml BID@08,20 MT Last administered on 07/05/16t 08:24; Start 04/25/16 at 08:00 Propofol 100 ml @ 0 mls/hr TITRATE IV Last administered on 05/16/16at 04:14; Start 04/24/16 at 22:45; Stop 05/20/16 at 22:01; Status DC Fentanyl Citrate (fentaNYL DRIP) 250 ml @ 0 mls/hr TITRATE IV Last administered on 05/22/16at 17:46; Start 04/24/16 at 22:45; Stop 05/26/16 at 17 :23; Status DC Bumetanide (Bumetanide Inj) 2 mg ONCE ONCE IV PUSH Last administered on at 22:43; Start 04/24/16 at 22:45; Stop 04/24/16 at 22:46; Status DC Methylprednisolone Sodium Succinate (SoluMEDROL INJ) 60 mg Q6HR IV PUSH Last administered on 05/10/16at 05:48; Start 04/25/16 at 00:00; Stop 05/10/16 at 07 :38; Status DC Methylprednisolone Sodium Succinate (SoluMEDROL INJ) 125 mg ONCE ONCE IV PUSH Last administered on 04/24/16at 22:48; Start 04/24/16 at 22:45; Stop 04/24/16 at 22:46; Status DC Albuterol/ Ipratropium (Duoneb Neb) 1 ampule Q4HR NEB NEB Last administered on 04/28/16at 23:35; Start 04/25/16 at 00:00; Stop 04/29/16 at 00:00; Status DC Albuterol/ Ipratropium 1 ampule 1 ampule Q2HR NEB PRN NEB sob Last administered on 05/16/16at 19:16; Start 04/24/16 at 22:45; Stop 05/18/16 at 13 :35; Status DC Potassium Chloride (KCl 20 Meq Premix Inj) 100 ml @ 50 mls/hr Q2H IV Last administered on 04/25/16at 02:00; Start 04/25/16 at 00:00; Stop 04/25/16 at 03 :59; Status DC Ondansetron HCl (Zofran Inj) 4 mg Q6HR PRN IV PUSH nausea or vomiting Last administered on 06/06/16at 04:12; Start 04/25/16 at 21:00; Stop 06/06/16 at 09: 13; Status DC Levothyroxine Sodium (Synthroid Inj) 25 mcg DAILY@06 IV PUSH Last administered on 05/13/16at 06:06; Start 04/26/16 at 09:00; Stop 05/29/16 at 12:12; Status DC Enoxaparin Sodium 150 mg 150 mg Q12HR SQ Last administered on 04/27/16at 20:05 ; Start 04/26/16 at 09:30; Stop 04/29/16 at 14:41; Status DC Midazolam HCl (Versed Inj) 100 ml @ 0 mls/hr CONTINUOUS IV ; Start 04/26/16 at 08:15; Status UNV Budesonide 0.5 mg 0.5 mg Q12HR NEB NEB Last administered on 07/05/16t 08:13; Start 04/26/16 at 09:30 Midazolam HCl (Versed Inj) 100 ml @ 0 mls/hr TITRATE IV Last administered on at 08:10; Start 04/26/16 at 09:30; Stop 05/20/16 at 22:01; Status DC IV Flush (NS Flush) See Protocol DAILY IVF Last administered on 05/18/16at 09: 00; Start 04/27/16 at 09:00; Stop 05/18/16 at 13:39; Status DC IV Flush (NS Flush) See Protocol UNSCH PRN IVF SEE PROTOCOL TABLE Last administered on 05/07/16at 08:06; Start 04/26/16 at 17:30; Stop 05/18/16 at 13: 39; Status DC Heparin Sodium (Porcine) (Heparin Central Flush) See Protocol DAILY IVF Last administered on 05/18/16at 09:00; Start 04/27/16 at 09:00; Stop 05/18/16 at 13 :39; Status DC Heparin Sodium (Porcine) (Heparin Central Flush) See Protocol UNSCH PRN IVF SEE PROTOCOL TABLE; Start 04/26/16 at 17:30; Stop 05/18/16 at 13:39; Status DC IV Flush (NS Flush) See Protocol UNSCH PRN IVF SEE PROTOCOL TABLE Last administered on 05/13/16at 21:22; Start 04/26/16 at 17:30; Stop 05/18/16 at 13 :39; Status DC IV Flush (NS Flush) See Protocol DAILY IVF Last administered on 05/18/16at 09: 00; Start 04/27/16 at 09:00; Stop 05/18/16 at 13:39; Status DC IV Flush (NS Flush) See Protocol UNSCH PRN IVF SEE PROTOCOL TABLE Last administered on 05/07/16at 08:06; Start 04/26/16 at 19:15; Stop 05/18/16 at 13: 39; Status DC Heparin Sodium (Porcine) (Heparin Central Flush) See Protocol DAILY IVF Last administered on 05/18/16at 09:00; Start 04/27/16 at 09:00; Stop 05/18/16 at 13 :39; Status DC Heparin Sodium (Porcine) (Heparin Central Flush) See Protocol UNSCH PRN IVF SEE PROTOCOL TABLE; Start 04/26/16 at 19:15; Stop 05/18/16 at 13:39; Status DC IV Flush (NS Flush) See Protocol UNSCH PRN IVF SEE PROTOCOL TABLE Last administered on 05/07/16at 08:06; Start 04/26/16 at 19:15; Stop 05/18/16 at 13: 39; Status DC Miscellaneous Information D/C ICU ELECTROLYTE ORDERS... UNSCH PRN XX SEE DOSE INSTRUCTIONS; Start 04/27/16 at 08:15; Stop 04/29/16 at 06:04; Status DC Miscellaneous Information ICU - CALL ORDERING PHYSIC... UNSCH PRN XX SEE DOSE INSTRUCTIONS; Start 04/27/16 at 08:15; Stop 04/29/16 at 06:04; Status DC Potassium Chloride (KCl 40 Meq Premix Inj) 100 ml @ 25 mls/hr UNSCH PRN IV ELECTROLYTE REPLACEMENT; Start 04/27/16 at 08:15; Stop 04/29/16 at 06:04; Status DC Potassium Chloride 40 meq 40 meq UNSCH PRN PO ELECTROLYTE REPLACEMENT; Start 04/27/16 at 08:15; Stop 04/29/16 at 06:04; Status DC Potassium Chloride 100 ml @ 50 mls/hr UNSCH PRN IV ELECTROLYTE REPLACEMENT Last administered on 04/28/16at 20:48; Start 04/27/16 at 08:15; Stop 04/29/16 at 06:04; Status DC Magnesium Sulfate 4 gm/Sodium Chloride 108 ml @ 54 mls/hr UNSCH PRN IV ELECTROLYTE REPLACEMENT; Start 04/27/16 at 08:15; Stop 04/29/16 at 06:04; Status DC Magnesium Sulfate/ Sodium Chloride (Magnesium Sulfate Inj/NS Inj) 104 ml @ 52 mls/hr UNSCH PRN IV ELECTROLYTE REPLACEMENT; Start 04/27/16 at 08:15; Stop at 06:04; Status DC Magnesium Oxide 800 mg 800 mg UNSCH PRN PO ELECTROLYTE REPLACEMENT; Start at 08:15; Stop 04/29/16 at 06:04; Status DC Sodium Phosphate/ Sodium Chloride (Sodium Phosphate Inj/NS 250 ml Inj) 260 ml @ 43.333 mls/ hr UNSCH PRN IV ELECTROLYTE REPLACEMENT; Start 04/27/16 at 08:15 ; Stop 04/29/16 at 06:04; Status DC Potassium Phosphate 2000 mg 2,000 mg UNSCH PRN PO/TUBE ELECTROLYTE REPLACEMENT ; Start 04/27/16 at 08:15; Stop 04/29/16 at 06:04; Status DC Potassium Phosphate 30 mmol/ Sodium Chloride 260 ml @ 43.333 mls/ hr UNSCH PRN IV ELECTROLYTE REPLACEMENT; Start 04/27/16 at 08:15; Stop 04/29/16 at 06: 04; Status DC Potassium Chloride 100 ml @ 50 mls/hr Q2H PRN IV For Potassium 2.8 - 3.2 mEq/ L Last administered on 06/03/16at 14:13; Start 04/27/16 at 08:15; Stop at 16:29; Status DC Potassium Chloride (KCl 20 Meq Premix Inj) 100 ml @ 50 mls/hr Q2H PRN IV For Potassium 2.8 - 3.2 mEq/L Last administered on 06/06/16at 08:59; Start 04/27/16 at 08:15; Stop 06/06/16 at 09:17; Status DC Potassium Chloride 40 meq 40 meq UNSCH PRN PO/TUBE For Potassium 3.3 - 3.5 mEq/ L Last administered on 06/13/16at 06:52; Start 04/27/16 at 08:15; Stop at 16:29; Status DC Potassium Chloride 100 ml @ 25 mls/hr UNSCH PRN IV For Potassium 3.3 - 3.5 mEq /L Last administered on 06/12/16at 10:22; Start 04/27/16 at 08:15; Stop at 16:29; Status DC Potassium Chloride 100 ml @ 50 mls/hr Q2H PRN IV For Potassium 3.3 - 3.5 mEq/ L Last administered on 06/05/16at 09:49; Start 04/27/16 at 08:15; Stop 06/06/16 at 09:17; Status DC Magnesium Sulfate/ Sodium Chloride (Magnesium Sulfate Inj/NS Inj) 100 ml @ 50 mls/hr UNSCH PRN IV For Magnesium 0.9 - 1.1 mg/dL; Start 04/27/16 at 08:15; Stop 06/13/16 at 16:29; Status DC Magnesium Oxide 800 mg 800 mg UNSCH PRN PO For Magnesium 1.2 - 1.6 mg/dL Last administered on 05/16/16at 05:33; Start 04/27/16 at 08:15; Stop 06/13/16 at 16 :29; Status DC Magnesium Sulfate/ Sodium Chloride (Magnesium Sulfate Inj/NS Inj) 100 ml @ 50 mls/hr UNSCH PRN IV For Magnesium 1.2 - 1.6 mg/dL Last administered on at 09:56; Start 04/27/16 at 08:15; Stop 06/13/16 at 16:29; Status DC Potassium Phosphate 2000 mg 2,000 mg Q4H PRN PO For Phosphorus < 2.5 mg/dL Last administered on 05/20/16at 12:11; Start 04/27/16 at 08:15; Stop 06/13/16 at 16:29; Status DC Sodium Phosphate/ Sodium Chloride (Sodium Phosphate Inj/NS 250 ml Inj) 250 ml @ 42 mls/hr UNSCH PRN IV For Phosphorus < 2.5 mg/dL; Start 04/27/16 at 08:15; Stop 06/13/16 at 16:29; Status DC Potassium Chloride (KCl 40 Meq/30 ml Liq) 40 meq UNSCH PRN PO/TUBE SEE LABEL COMMENTS Last administered on 05/15/16at 08:15; Start 04/27/16 at 08:15; Stop 06/13/16 at 16:29; Status DC Potassium Phosphate 2000 mg 2,000 mg UNSCH PRN PO/TUBE SEE LABEL COMMENTS; Start 04/27/16 at 08:15; Stop 06/13/16 at 16:29; Status DC Potassium Phosphate/Sodium Chloride (Potassium Phosphate Inj/NS 250 ml Inj) 260 ml @ 42 mls/hr UNSCH PRN IV SEE LABEL COMMENTS Last administered on at 23:30; Start 04/27/16 at 08:15; Stop 06/13/16 at 16:29; Status DC Furosemide (Lasix Inj) 40 mg BID@09,18 IV PUSH Last administered on 04/28/16at 08:21; Start 04/27/16 at 09:00; Stop 04/30/16 at 12:20; Status DC Diphenhydramine HCl (Benadryl Inj) 25 mg Q4H PRN IV PUSH ALLERGIC REACTION; Start 04/27/16 at 08:30; Stop 06/27/16 at 13:40; Status DC Senna/Docusate Sodium 1 tab 1 tab BID PRN PO CONSTIPATION; Start 04/27/16 at 08:30; Stop 05/30/16 at 21:00; Status DC Epoprostenol Sodium 100 ml/ Sodium Chloride 100 ml @ 8 mls/hr Q8H NEB Last administered on 05/02/16at 05:00; Start 04/27/16 at 21:00; Stop 05/02/16 at 10: 23; Status DC Multivitamins 10 ml/Folic Acid 1 mg/Amino Acid Electrolyte w/ Calc 1,010.2 ml @ 42 mls/hr Q24H IV Last administered on 04/28/16at 20:11; Start 04/28/16 at 20:00; Stop 04/29/16 at 10:47; Status DC Furosemide 100 mg/ Sodium Chloride 100 ml @ 5 mls/hr CONTINUOUS IV Last administered on 04/28/16at 15:34; Start 04/28/16 at 17:00; Stop 04/29/16 at 00 :11; Status DC Potassium Chloride 100 ml @ 50 mls/hr ONCE ONCE IV-CENTRAL Last administered on 04/28/16at 15:34; Start 04/28/16 at 15:30; Stop 04/28/16 at 17:29; Status DC Magnesium Sulfate/ Dextrose (Magnesium Sulfate 1 Gm Premix) 100 ml @ 100 mls/ hr Q1H IV Last administered on 04/28/16at 18:43; Start 04/28/16 at 15:30; Stop 04/28/16 at 17:29; Status DC Acetazolamide Sodium (Diamox Inj) 500 mg Q8H IV PUSH Last administered on 04/29at 15:42; Start 04/28/16 at 23:45; Stop 04/29/16 at 15:46; Status DC Furosemide (Lasix Inj) 40 mg NOW IV PUSH Last administered on 04/29/16at 00:22 ; Start 04/29/16 at 00:15; Stop 04/29/16 at 02:30; Status DC Furosemide 40 mg 40 mg STK-MED ONCE .ROUTE ; Start 04/29/16 at 00:10; Stop at 00:11; Status DC Furosemide 100 mg/ Sodium Chloride 100 ml @ 5 mls/hr CONTINUOUS IV Last administered on 04/29/16at 16:05; Start 04/29/16 at 04:00; Stop 04/30/16 at 12: 19; Status DC Ceftolozane/ Tazobactam 1500 mg/Sodium Chloride 100 ml @ 100 mls/hr Q8H IV Last administered on 05/07/16at 11:15; Start 04/29/16 at 12:00; Stop 05/07/16 at 11:16; Status DC Heparin Sodium/ Dextrose (Heparin-D5W Inj) 250 ml @ 0 mls/hr TITRATE IV Last administered on 05/01/16at 06:53; Start 04/29/16 at 14:45; Stop 05/01/16 at 15: 00; Status DC Miscellaneous Information SPECIFIC LAB TO BE ... ONCE ONCE XX ; Start at 11:45; Stop 05/01/16 at 11:46; Status Cancel Colistin Sulfate (Coly-Mycin M Neb) 75 mg BID NEB NEB Last administered on 05/04/16at 09:54; Start 04/30/16 at 12:00; Stop 05/04/16 at 15:58; Status DC Furosemide (Lasix Inj) 50 mg BID@09,18 IV PUSH ; Start 04/30/16 at 16:00; Stop 04/30/16 at 17:13; Status DC Acetazolamide Sodium (Diamox Inj) 500 mg Q8H IV PUSH Last administered on at 07:36; Start 04/30/16 at 17:00; Stop 05/01/16 at 09:01; Status DC Furosemide 80 mg 80 mg NOW ONCE IV PUSH Last administered on 04/30/16at 16:45; Start 04/30/16 at 17:15; Stop 04/30/16 at 17:16; Status DC Furosemide/Sodium Chloride (Lasix Inj/NS Inj) 100 ml @ 20 mls/hr CONTINUOUS IV Last administered on 05/02/16at 16:52; Start 04/30/16 at 18:00; Stop 05/02/16 at 17:14; Status DC Acetazolamide Sodium (Diamox Inj) 500 mg STAT ONCE IV Last administered on 05/01/16at 15:00; Start 05/01/16 at 15:00; Stop 05/01/16 at 15:01; Status DC Enoxaparin Sodium (Lovenox Inj) 150 mg Q12H SQ Last administered on 06/06/16at 04:12; Start 05/01/16 at 16:00; Stop 06/08/16 at 13:20; Status DC Potassium Chloride (KCl Powder) 40 meq Q6H NG Last administered on 05/02/16at 07 :54; Start 05/01/16 at 22:00; Stop 05/02/16 at 16:20; Status DC Albuterol/ Ipratropium 1 ampule 1 ampule Q6HR NEB NEB Last administered on 04/14at 09:19; Start 05/02/16 at 10:15; Stop 05/09/16 at 13:17; Status DC Epoprostenol Sodium 70 ml/ Sodium Chloride 100 ml @ 8 mls/hr Q8H NEB ; Start at 12:00; Status Cancel Epoprostenol Sodium/Sodium Chloride (Flolan (30,000 Ng/ml) Neb/NS Inj) 100 ml @ 8 mls/hr Q8H NEB Last administered on 05/05/16at 09:37; Start 05/02/16 at 12:00 ; Stop 05/05/16 at 16:59; Status DC Rocuronium [place] (Zemuron Inj) 50 mg STK-MED ONCE .ROUTE ; Start 05/02/16 at 13:03; Stop 05/02/16 at 13:04; Status DC Succinylcholine Chloride (Quelicin Inj) 200 mg STK-MED ONCE .ROUTE ; Start 05/02 at 13:03; Stop 05/02/16 at 13:04; Status DC Pantoprazole Sodium 40 mg 40 mg Q12H IV PUSH Last administered on 05/10/16at 02 :16; Start 05/02/16 at 15:00; Stop 05/10/16 at 07:38; Status DC Vancomycin HCl 1750 mg/Sodium Chloride 535 ml @ 267.5 mls/ hr ONCE ONCE IV ; Start 05/02/16 at 16:00; Stop 05/02/16 at 16:28; Status DC Pharmacy Profile Note 0 ml @ 0 mls/hr UNSCH OTHER ; Start 05/02/16 at 15:00; Stop 05/06/16 at 09:06; Status DC Fluconazole/ Sodium Chloride (Diflucan 400 Mg Premix Bag) 200 ml @ 100 mls/hr Q24H IV Last administered on 05/05/16at 16:44; Start 05/02/16 at 17:00; Stop at 09:07; Status DC Metolazone (Zaroxolyn) 5 mg DAILY NG Last administered on 05/16/16at 08:53; Start 05/03/16 at 07:00; Stop 05/16/16 at 09:24; Status DC Metolazone (Zaroxolyn) 10 mg ONCE ONCE PO Last administered on 05/02/16at 16:51 ; Start 05/02/16 at 15:45; Stop 05/02/16 at 16:28; Status DC Potassium Chloride 80 meq 80 meq Q6H NG Last administered on 05/08/16at 04:19; Start 05/02/16 at 17:00; Stop 05/08/16 at 13:24; Status DC Vancomycin HCl/ Sodium Chloride (Vancomycin Inj/ NS 500 ml Inj) 540 ml @ 250 mls/hr Q12H IV Last administered on 05/04/16at 05:29; Start 05/02/16 at 18:00; Stop 05/04/16 at 09:00; Status DC Miscellaneous Information SPECIFIC LAB TO BE DRAWN:VANCOMCYIN TROUGH DATE TO... ONCE ONCE XX Last administered on 05/04/16at 05:30; Start 05/04/16 at 05:45; Stop 05/04/16 at 05:46; Status DC Furosemide 100 mg/ Sodium Chloride 50 ml @ 10 mls/hr CONTINUOUS IV Last administered on 05/04/16at 09:05; Start 05/02/16 at 17:14; Stop 05/04/16 at 14:12 ; Status DC Vancomycin HCl/ Sodium Chloride (Vancomycin Inj/ NS 500 ml Inj) 540 ml @ 250 mls/hr Q18H IV Last administered on 05/05/16at 17:33; Start 05/05/16 at 00:00; Stop 05/06/16 at 09:06; Status DC Miscellaneous Information SPECIFIC LAB TO BE DRAWN:VANCO TROUGH DATE TO... ONCE ONCE XX ; Start 05/06/16 at 11:45; Stop 05/06/16 at 11:46; Status DC Acetazolamide Sodium (Diamox Inj) 500 mg DAILY IV PUSH Last administered on 05/05/16at 08:32; Start 05/04/16 at 14:15; Stop 05/06/16 at 08:59; Status DC Bumetanide (Bumetanide Inj) 2 mg Q6H IV PUSH Last administered on 05/05/16at 11: 28; Start 05/04/16 at 17:00; Stop 05/05/16 at 13:18; Status DC Colistin Sulfate (Coly-Mycin M Neb) 75 mg Q8HR NEB NEB Last administered on at 07:55; Start 05/04/16 at 17:00; Stop 05/10/16 at 12:57; Status DC Miscellaneous Medication ([facility] [place] [facility] Pharmacy Information) Please discontinue previ... ONCE ONCE XX Last administered on 05/05/16at 12:56; Start 05/05/16 at 13:00; Stop 05/05/16 at 13:01; Status DC Dextrose (D50w (Vial) Inj) 25 ml UNSCH PRN IV PUSH HYPOGLYCEMIA - SEE COMMENTS ; Start 05/05/16 at 12:15; Stop 05/25/16 at 07:25; Status DC Glucagon (Glucagon Inj) 1 mg UNSCH PRN OTHER HYPOGLYCEMIA-SEE COMMENTS; Start 05/05/16 at 12:15; Stop 05/25/16 at 07:25; Status DC Insulin Human Regular (NovoLIN R SUPPLEMENTAL SCALE) 1 Q4HR SQ Last administered on 05/15/16at 16:02; Start 05/05/16 at 12:00; Stop 05/25/16 at 07: 07; Status DC Bumetanide 1 mg 1 mg Q6H IV PUSH Last administered on 05/07/16at 11:14; Start 05/05/16 at 17:00; Stop 05/07/16 at 11:30; Status DC Epoprostenol Sodium 80 ml/ Sodium Chloride 100 ml @ 8 mls/hr ONCE ONCE NEB Last administered on 05/05/16at 22:25; Start 05/05/16 at 17:00; Stop 05/06/16 at 05:29; Status DC Epoprostenol Sodium 60 ml/ Sodium Chloride 100 ml @ 8 mls/hr ONCE ONCE NEB Last administered on 05/06/16at 06:15; Start 05/06/16 at 01:00; Stop 05/06/16 at 13:29; Status DC Epoprostenol Sodium 40 ml/ Sodium Chloride 100 ml @ 8 mls/hr ONCE ONCE NEB Last administered on 05/06/16at 17:06; Start 05/06/16 at 09:00; Stop 05/06/16 at 21:29; Status DC Epoprostenol Sodium/Sodium Chloride (Flolan (30,000 Ng/ml) Neb/NS Inj) 100 ml @ 8 mls/hr ONCE ONCE NEB Last administered on 05/07/16at 11:14; Start 05/06/16 at 17:00; Stop 05/07/16 at 05:29; Status DC Linezolid (Zyvox) 600 mg Q12HR PO Last administered on 05/13/16at 10:06; Start 05/06/16 at 09:15; Stop 05/13/16 at 09:14; Status DC Fluconazole (Diflucan) 100 mg DAILY@17 PO Last administered on 05/12/16at 17:03 ; Start 05/06/16 at 17:00; Stop 05/13/16 at 16:59; Status DC Metoclopramide HCl (Reglan Inj) 10 mg Q12HR IV PUSH Last administered on at 08:39; Start 05/06/16 at 16:00; Stop 05/29/16 at 12:12; Status DC Nystatin 1 applic 1 applic BID TOPICAL Last administered on 07/05/16t 08:26; Start 05/06/16 at 21:00 Ceftriaxone Sodium/Sodium Chloride (Rocephin Inj/NS Inj) 100 ml @ 200 mls/hr Q24H IV Last administered on 05/07/16at 12:23; Start 05/07/16 at 12:00; Stop at 13:19; Status DC Bumetanide (Bumetanide Inj) 1 mg Q8HR IV PUSH Last administered on 05/08/16at 05 :09; Start 05/07/16 at 22:00; Stop 05/08/16 at 13:24; Status DC Insulin Detemir 10 units 10 units BID SQ Last administered on 05/09/16at 07:42 ; Start 05/07/16 at 12:00; Stop 05/09/16 at 09:06; Status DC Ceftriaxone Sodium/Sodium Chloride (Rocephin Inj/NS Inj) 100 ml @ 200 mls/hr Q24H IV ; Start 05/18/16 at 14:00; Stop 05/18/16 at 14:00; Status DC Water (Free Water) 200 ml Q8H G-TUBE Last administered on 05/13/16at 01:00; Start 05/08/16 at 17:00; Stop 05/13/16 at 08:46; Status DC Insulin Detemir (Levemir Inj) 15 units BID SQ Last administered on 05/10/16at 07:40; Start 05/09/16 at 21:00; Stop 05/10/16 at 08:25; Status DC Prednisone (predniSONE LIQ) 10 mg Taper DAILY PO Last administered on at 09:35; Start 05/10/16 at 09:00; Stop 06/02/16 at 07:30; Status DC Famotidine (Pepcid) 20 mg Q12HR PO Last administered on 06/07/16at 07:35; Start 05/10/16 at 09:00; Stop 06/07/16 at 09:05; Status DC Insulin Detemir (Levemir Inj) 20 units BID SQ ; Start 05/10/16 at 09:00; Stop 05/10/16 at 09:00; Status DC Insulin Detemir (Levemir Inj) 20 units BID SQ Last administered on 05/13/16at 21:22; Start 05/10/16 at 21:00; Stop 05/14/16 at 08:14; Status DC Potassium Chloride (KCl Powder) 40 meq DAILY NG Last administered on at 08:58; Start 05/10/16 at 09:00; Stop 05/12/16 at 07:03; Status DC Midazolam HCl (Versed Inj) 5 mg STK-MED ONCE .ROUTE Last administered on at 13:56; Start 05/10/16 at 13:56; Stop 05/10/16 at 13:57; Status DC Albuterol/ Ipratropium (Duoneb Neb) 1 ampule Q6HR NEB NEB Last administered on 05/14/16at 20:14; Start 05/10/16 at 22:00; Stop 05/14/16 at 22:00; Status DC Sertraline HCl 25 mg 25 mg DAILY PO Last administered on 05/14/16at 09:23; Start 05/12/16 at 09:00; Stop 05/14/16 at 09:27; Status DC Potassium Phosphate/Sodium Chloride (Potassium Phosphate Inj/NS 250 ml Inj) 260 ml @ 43.333 mls/ hr ONCE ONCE IV ; Start 05/12/16 at 08:00; Stop 05/12/16 at 13:59; Status DC Potassium Chloride 60 meq 60 meq DAILY NG Last administered on 05/12/16at 09:00 ; Start 05/12/16 at 09:00; Stop 05/13/16 at 08:34; Status DC Ceftriaxone Sodium 2000 mg/ Sodium Chloride 100 ml @ 200 mls/hr Q24H IV ; Start 05/12/16 at 08:00; Stop 05/12/16 at 08:00; Status DC Ceftriaxone Sodium/Sodium Chloride (Rocephin Inj/NS Inj) 100 ml @ 200 mls/hr Q24H IV Last administered on 05/25/16at 08:59; Start 05/12/16 at 08:00; Stop 05/25/16 at 23:00; Status DC Potassium Chloride (KCl Powder) 40 meq Q12HR NG Last administered on at 21:00; Start 05/12/16 at 21:00; Stop 05/13/16 at 08:34; Status DC Diltiazem HCl (Cardizem) 60 mg QID PO Last administered on 05/27/16at 21:07; Start 05/13/16 at 09:00; Stop 05/28/16 at 08:45; Status DC Alprazolam (Xanax) 0.5 mg ONCE ONCE PO Last administered on 05/14/16at 08:50; Start 05/14/16 at 09:00; Stop 05/14/16 at 09:01; Status DC Sertraline HCl (Zoloft) 50 mg DAILY PO Last administered on 05/29/16at 08:26; Start 05/15/16 at 09:00; Stop 05/29/16 at 12:12; Status DC Sertraline HCl 25 mg 25 mg ONCE ONCE PO Last administered on 05/14/16at 09:32 ; Start 05/14/16 at 09:30; Stop 05/14/16 at 09:31; Status DC Propofol (Diprivan 500 Mg/ 50 ml Inj) 50 ml @ As Directed STK-MED ONCE .ROUTE Last administered on 05/15/16at 10:45; Start 05/15/16 at 10:45; Stop 05/15/16 at 10:46; Status DC Potassium Chloride 40 meq 40 meq ONCE ONCE PO Last administered on 05/15/16at 12:17; Start 05/15/16 at 12:00; Stop 05/15/16 at 12:01; Status DC Magnesium Sulfate/ Dextrose 100 ml @ 100 mls/hr Q1H IV Last administered on at 14:00; Start 05/15/16 at 13:00; Stop 05/15/16 at 14:59; Status DC Sodium Chloride (NS 1000 ml Inj) 1,000 ml @ 125 mls/hr Q8H IV Last administered on 05/16/16at 19:15; Start 05/16/16 at 11:15; Stop 05/16/16 at 23 :15; Status DC Potassium Bicarb/ Potassium Chloride (K-Lyte Cl Eff) 50 meq ONCE ONCE PO Last administered on 05/17/16at 08:35; Start 05/17/16 at 08:00; Stop 05/17/16 at 08:01; Status DC Insulin Aspart (NovoLOG SUPPLEMENTAL SCALE) 1 ACHS SLIDING SCALE SQ Last administered on 05/21/16at 10:23; Start 05/17/16 at 16:00; Stop 05/25/16 at 07 :28; Status DC Albuterol/ Ipratropium (Duoneb Neb) 1 ampule Q6HR NEB NEB Last administered on 05/22/16at 07:32; Start 05/18/16 at 10:00; Stop 05/22/16 at 10:00; Status DC Albuterol/ Ipratropium (Duoneb Neb) 1 ampule Q2HR NEB PRN NEB SHORTNESS OF BREATH Last administered on 07/04/16t 18:04; Start 05/18/16 at 08:30 Ferrous Sulfate (Ferrous Sulfate Liq) 300 mg DAILY PO Last administered on at 08:25; Start 05/20/16 at 12:00; Stop 06/02/16 at 07:27; Status DC Potassium Bicarb/ Potassium Chloride (K-Lyte Cl Eff) 25 meq Q8H TUBE Last administered on 05/21/16at 14:50; Start 05/20/16 at 22:00; Stop 05/21/16 at 14 :01; Status DC Bumetanide (Bumetanide Inj) 1 mg Q12H IV PUSH Last administered on 06/06/16at 08 :47; Start 05/20/16 at 22:00; Stop 06/06/16 at 09:05; Status DC Collagenase (Santyl Oint) 1 applic DAILY TOP Last administered on 07/04/16t 10: 06; Start 05/21/16 at 13:00 Potassium Chloride (KCl) 40 meq Q12HR PO Last administered on 05/30/16at 20:09; Start 05/22/16 at 23:00; Stop 05/31/16 at 22:06; Status DC Oxycodone HCl (Roxicodone) 10 mg Q6H PO Last administered on 05/24/16at 03:54; Start 05/22/16 at 23:00; Stop 05/24/16 at 08:13; Status DC Morphine Sulfate (Morphine Inj) 4 mg Q3H PRN IV PUSH BREAKTHOUGH PAIN Last administered on 05/29/16at 06:55; Start 05/22/16 at 23:00; Stop 05/29/16 at 11 :47; Status DC Acetazolamide Sodium (Diamox Inj) 250 mg ONCE ONCE IV PUSH Last administered on 05/23/16at 10:19; Start 05/23/16 at 08:00; Stop 05/23/16 at 08:01; Status DC IV Flush (NS Flush) See Protocol DAILY IVF Last administered on 06/06/16at 08:47 ; Start 05/24/16 at 09:00; Stop 06/06/16 at 09:22; Status DC IV Flush (NS Flush) See Protocol UNSCH PRN IVF SEE PROTOCOL TABLE; Start 05/23 at 11:00; Status Cancel Heparin Sodium (Porcine) (Heparin Central Flush) See Protocol DAILY IVF Last administered on 06/19/16at 09:31; Start 05/24/16 at 09:00; Stop 06/21/16 at 11 :55; Status DC Heparin Sodium (Porcine) (Heparin Central Flush) See Protocol UNSCH PRN IVF SEE PROTOCOL TABLE; Start 05/23/16 at 11:00; Stop 06/21/16 at 11:55; Status DC IV Flush (NS Flush) See Protocol UNSCH PRN IVF SEE PROTOCOL TABLE Last administered on 06/20/16at 13:28; Start 05/23/16 at 11:00; Stop 06/21/16 at 11 :55; Status DC Acetazolamide Sodium (Diamox Inj) 250 mg ONCE ONCE IV PUSH Last administered on 05/24/16at 10:34; Start 05/24/16 at 08:15; Stop 05/24/16 at 08:16; Status DC Dextrose (D50w (Vial) Inj) 25 ml UNSCH PRN IV PUSH HYPOGLYCEMIA-SEE COMMENTS; Start 05/25/16 at 07:15; Stop 06/16/16 at 08:40; Status DC Glucagon (Glucagon Inj) 1 mg UNSCH PRN OTHER HYPOGLYCEMIA-SEE COMMENTS; Start 05/25/16 at 07:15; Stop 06/16/16 at 08:40; Status DC Insulin Human Regular (NovoLIN R SUPPLEMENTAL SCALE) 1 Q4H SQ ; Start 05/25/16 at 08:00; Stop 05/29/16 at 12:12; Status DC Docusate Sodium (Colace Liq) 100 mg Q12HR PO Last administered on 05/29/16at 21 :20; Start 05/26/16 at 21:00; Stop 05/30/16 at 06:18; Status DC Diltiazem HCl (Cardizem) 90 mg QID PO Last administered on 07/05/16 12:15; Start 05/28/16 at 09:00 Zolpidem Tartrate (Ambien) 5 mg HS PRN PO INSOMNIA Last administered on at 20:38; Start 05/28/16 at 15:15; Stop 06/27/16 at 13:40; Status DC Multivitamins (Theragran Liq) 5 ml DAILY PO ; Start 05/29/16 at 10:00; Stop 06/02/16 at 07:28; Status DC Oxycodone/ Acetaminophen (Percocet 7.5-325 Mg) 1 tab Q6H PRN PO Last administered on 06/08/16at 12:07; Start 05/29/16 at 12:00; Stop 06/08/16 at 13 :13; Status DC Sertraline HCl (Zoloft) 100 mg DAILY PO Last administered on 07/05/16 08:25; Start 05/30/16 at 09:00 Docusate Sodium (Colace Liq) 100 mg Q12HR PRN PO CONSTIPATION; Start 05/30/16 at 06:15; Stop 06/06/16 at 09:13; Status DC Senna/Docusate Sodium (Elizabeth-Colace) 2 tab HS PO Last administered on 05/31/16 22:11; Start 05/30/16 at 21:00; Stop 06/03/16 at 07:15; Status DC Ondansetron HCl (Zofran Inj) 4 mg DAILY IV PUSH Last administered on 05/30/16at 09:35; Start 05/30/16 at 09:00; Stop 05/30/16 at 14:41; Status DC Quetiapine Fumarate (SEROquel) 100 mg HS PO Last administered on 07/04/16 20:16 ; Start 05/30/16 at 21:00 Prochlorperazine Maleate (Compazine) 5 mg Q8HR PRN PO NAUSEA Last administered on 06/06/16at 08:46; Start 05/30/16 at 14:45; Stop 06/06/16 at 09:13; Status DC Potassium Chloride (KCl 40 Meq/30 ml Liq) 40 meq Q12H PO Last administered on 05/31/16at 22:11; Start 05/31/16 at 23:00; Stop 05/31/16 at 23:00; Status DC Potassium Chloride (KCl) 40 meq Q12H PO Last administered on 07/05/16 12:15; Start 05/31/16 at 23:00 Ferrous Sulfate (Ferrous Sulfate) 325 mg DAILY PO Last administered on 08:25; Start 06/02/16 at 09:00 Multivitamins (Theragran) 1 tab DAILY PO Last administered on 07/05/16 08:25; Start 06/02/16 at 09:00 Prednisone 10 mg 10 mg DAILY PO Last administered on 06/02/16at 07:58; Start at 09:00; Stop 06/02/16 at 09:01; Status DC Cefepime HCl/ Sodium Chloride (Maxipime Inj/NS Inj) 100 ml @ 200 mls/hr Q8H IV Last administered on 06/02/16at 14:00; Start 06/02/16 at 14:00; Stop 06/02/16 at 16:25; Status DC Colistin Sulfate (Coly-Mycin M Neb) 75 mg Q8HR NEB NEB Last administered on at 17:12; Start 06/03/16 at 00:00; Stop 06/27/16 at 23:00; Status DC Senna/Docusate Sodium (Elizabeth-Colace) 1 tab HS PO ; Start 06/03/16 at 21:00; Stop 06/06/16 at 07:01; Status DC Miconazole Nitrate (Micatin 2% Cream) 1 applic DAILY TOP ; Start 06/03/16 at 09: 00; Stop 06/03/16 at 09:00; Status DC Miconazole Nitrate 1 applic 1 applic BID TOP Last administered on 07/05/16t 08: 25; Start 06/03/16 at 09:00 Pharmacy Profile Note 0 ml @ 0 mls/hr UNSCH OTHER ; Start 06/03/16 at 10:30; Status Cancel Vancomycin HCl/ Sodium Chloride (Vancomycin Inj/ NS 500 ml Inj) 520 ml @ 250 mls/hr Q12H IV Last administered on 06/10/16at 13:50; Start 06/03/16 at 13:00; Stop 06/11/16 at 10:39; Status DC Miscellaneous Information SPECIFIC LAB TO BE ZEENAT... ONCE ONCE XX Last administered on 06/05/16at 00:45; Start 06/05/16 at 00:45; Stop 06/05/16 at 00:46 ; Status DC Gadodiamide 40 ml 40 ml STK-MED ONCE IV Last administered on 06/03/16at 12:42; Start 06/03/16 at 12:42; Stop 06/04/16 at 08:01; Status DC Ceftolozane/ Tazobactam/Sodium Chloride (Zerbaxa Inj/NS Inj) 100 ml @ 100 mls/ hr Q8H IV Last administered on 06/17/16at 12:27; Start 06/04/16 at 20:00; Stop 06/18/16 at 23:59; Status DC Miscellaneous Information SPECIFIC LAB TO BE ZEENAT... ONCE ONCE XX Last administered on 06/10/16at 12:45; Start 06/10/16 at 12:45; Stop 06/10/16 at 12 :46; Status DC Senna/Docusate Sodium (Elizabeth-Colace) 1 tab HS PRN PO CONSTIPATION; Start at 07:00 Bumetanide (Bumetanide) 1 mg DAILY PO ; Start 06/06/16 at 09:15; Stop 06/06/16 at 09:15; Status DC Bumetanide (Bumetanide) 1 mg DAILY PO Last administered on 07/05/16 08:25; Start 06/07/16 at 09:00 Prochlorperazine Maleate (Compazine) 5 mg Q6HR PRN PO NAUSEA Last administered on 06/10/16at 08:55; Start 06/06/16 at 12:00; Stop 06/13/16 at 09:00; Status DC Ondansetron HCl (Zofran Odt) 4 mg Q6HR PRN PO NAUSEA OR VOMITING Last administered on 06/16/16at 09:53; Start 06/06/16 at 09:15; Stop 06/16/16 at 13: 07; Status DC Gentamicin Sulfate (Gentamicin Inj) 240 mg STK-MED ONCE .ROUTE Last administered on 06/07/16at 10:49; Start 06/07/16 at 08:36; Stop 06/07/16 at 08:39 ; Status DC Pantoprazole Sodium (Protonix) 20 mg BID PO Last administered on 07/05/16 08:25 ; Start 06/07/16 at 21:00 Famotidine (Pepcid Inj) 20 mg STK-MED ONCE .ROUTE ; Start 06/07/16 at 09:56; Stop 06/07/16 at 09:57; Status DC Midazolam HCl (Versed Inj) 2 mg STK-MED ONCE .ROUTE ; Start 06/07/16 at 09:56; Stop 06/07/16 at 09:57; Status DC Fentanyl Citrate (fentaNYL INJ) 100 mcg STK-MED ONCE .ROUTE ; Start 06/07/16 at 09:57; Stop 06/07/16 at 09:58; Status DC Fentanyl Citrate (fentaNYL INJ) 250 mcg STK-MED ONCE .ROUTE ; Start 06/07/16 at 09:57; Stop 06/07/16 at 09:58; Status DC IV Flush (NS Flush) 2 ml UNSCH PRN IVF FLUSH AFTER USING IV ACCESS; Start 06/07 at 12:45 IV Flush (NS Flush) 2 ml BID IVF Last administered on 07/05/16 08:24; Start at 21:00 Miscellaneous Information (Post-op Orders (for Pharmacy)) STAT ONCE XX ; Start 06/07/16 at 12:45; Stop 06/07/16 at 12:46; Status DC Morphine Sulfate (Morphine Inj) 4 mg Q3H PRN IV PUSH break thru pain Last administered on 06/18/16at 19:35; Start 06/07/16 at 12:45; Stop 06/19/16 at 11: 11; Status DC Enoxaparin Sodium (Lovenox Inj) 30 mg Q12H SQ Last administered on 06/11/16at 11:53; Start 06/08/16 at 10:00; Stop 06/11/16 at 16:49; Status DC Labetalol HCl (Trandate Inj) 10 mg Q6H PRN IV SBP > 160 Last administered on at 18:46; Start 06/08/16 at 11:15 Oxycodone/ Acetaminophen (Percocet 7.5-325 Mg) 1 tab Q4HR PRN PO PAIN SCALE 1 TO 10 Last administered on 06/17/16at 20:11; Start 06/08/16 at 16:00; Stop at 11:19; Status DC Propofol (Diprivan 200 Mg/20 ml Inj) 200 mg STK-MED ONCE IV ; Start 06/07/16 at 12:00; Stop 06/10/16 at 08:58; Status DC Ondansetron HCl 4 mg 4 mg STK-MED ONCE IV PUSH ; Start 06/07/16 at 12:00; Stop 06/10/16 at 08:58; Status DC Lactated Ringer's (Lr 1000 ml Inj) 1,000 ml @ As Directed STK-MED ONCE IV ; Start 06/07/16 at 12:00; Stop 06/10/16 at 08:58; Status DC Miscellaneous Information SPECIFIC LAB TO BE DRAWN:Random Vanc level DATE TO... ONCE ONCE XX Last administered on 06/11/16at 05:52; Start 06/11/16 at 06:00; Stop 06/11/16 at 06:01; Status DC Vancomycin HCl/ Sodium Chloride (Vancomycin Inj/ NS 500 ml Inj) 520 ml @ 250 mls/hr Q18H IV Last administered on 06/13/16at 00:19; Start 06/11/16 at 14:00 ; Stop 06/13/16 at 10:13; Status DC Miscellaneous Information SPECIFIC LAB TO BE DRAWN:VANCOMYCIN TROUGH DATE TO... ONCE ONCE XX Last administered on 06/13/16at 00:19; Start 06/13/16 at 01:45; Stop 06/13/16 at 01:46; Status DC Enoxaparin Sodium 150 mg 150 mg Q12H SQ Last administered on 06/27/16at 22:30; Start 06/11/16 at 22:00; Status Hold Midazolam HCl (Versed Inj) 100 ml @ 0 mls/hr TITRATE IV ; Start 06/12/16 at 08: 00; Stop 06/12/16 at 08:00; Status DC Prochlorperazine Maleate (Compazine) 5 mg TIDAC PRN PO NAUSEA Last administered on 06/15/16at 16:14; Start 06/12/16 at 17:00; Stop 06/16/16 at 14 :55; Status DC Calcium Carbonate 500 mg 500 mg Q12H PRN CHEW NAUSEA OR HEARTBURN; Start 06/12 at 16:30 Vancomycin HCl/ Sodium Chloride (Vancomycin Inj/ NS 500 ml Inj) 522.5 ml @ 250 mls/hr Q18H IV Last administered on 06/18/16at 11:29; Start 06/13/16 at 18:00 ; Stop 06/18/16 at 23:59; Status DC Miscellaneous Information SPECIFIC LAB TO BE DRAWN:VANCO TROUGH DATE TO BE DR... ONCE ONCE XX ; Start 06/15/16 at 05:45; Stop 06/15/16 at 05:46; Status DC Bumetanide 1 mg 1 mg ONCE ONCE IV PUSH Last administered on 06/13/16at 15:46; Start 06/13/16 at 14:30; Stop 06/13/16 at 14:31; Status DC Potassium Chloride (KCl 20 Meq Premix Inj) 100 ml @ 50 mls/hr Q2H PRN IV For Potassium 2.8 - 3.2 mEq/L Last administered on 06/17/16at 15:39; Start at 16:30 Potassium Chloride 40 meq 40 meq UNSCH PRN PO/TUBE For Potassium 3.3 - 3.5 mEq/ L Last administered on 06/20/16at 15:47; Start 06/13/16 at 16:30 Potassium Chloride 100 ml @ 50 mls/hr Q2H PRN IV For Potassium 3.3 - 3.5 mEq/L ; Start 06/13/16 at 16:30 Magnesium Sulfate/ Sodium Chloride (Magnesium Sulfate Inj/NS Inj) 100 ml @ 50 mls/hr UNSCH PRN IV For Magnesium 0.9 - 1.1 mg/dL; Start 06/13/16 at 16:30 Magnesium Oxide 800 mg 800 mg UNSCH PRN PO For Magnesium 1.2 - 1.6 mg/dL; Start 06/13/16 at 16:30 Magnesium Sulfate/ Sodium Chloride (Magnesium Sulfate Inj/NS Inj) 100 ml @ 50 mls/hr UNSCH PRN IV For Magnesium 1.2 - 1.6 mg/dL Last administered on at 08:40; Start 06/13/16 at 16:30 Potassium Phosphate 2000 mg 2,000 mg Q4H PRN PO For Phosphorus < 2.5 mg/dL; Start 06/13/16 at 16:30 Sodium Phosphate/ Sodium Chloride (Sodium Phosphate Inj/NS 250 ml Inj) 250 ml @ 42 mls/hr UNSCH PRN IV For Phosphorus < 2.5 mg/dL; Start 06/13/16 at 16:30 Potassium Chloride (KCl 40 Meq/30 ml Liq) 40 meq UNSCH PRN PO/TUBE SEE LABEL COMMENTS; Start 06/13/16 at 16:30 Potassium Phosphate 2000 mg 2,000 mg UNSCH PRN PO/TUBE SEE LABEL COMMENTS; Start 06/13/16 at 16:30 Potassium Phosphate/Sodium Chloride (Potassium Phosphate Inj/NS 250 ml Inj) 260 ml @ 42 mls/hr UNSCH PRN IV SEE LABEL COMMENTS; Start 06/13/16 at 16:30 Miscellaneous Information [facility] DR[facility]ente.. ONCE ONCE XX ; Start 06/15/16 at 23:45; Stop 06/15/16 at 23:46; Status DC Acetazolamide Sodium (Diamox Inj) 250 mg ONCE ONCE IV PUSH Last administered on 06/15/16at 16:13; Start 06/15/16 at 11:00; Stop 06/15/16 at 11:01; Status DC Dextrose (D50w (Vial) Inj) 25 ml UNSCH PRN IV PUSH HYPOGLYCEMIA-SEE COMMENTS; Start 06/16/16 at 08:30 Glucagon (Glucagon Inj) 1 mg UNSCH PRN OTHER HYPOGLYCEMIA-SEE COMMENTS; Start 06/16/16 at 08:30 Insulin Human Regular (NovoLIN R SUPPLEMENTAL SCALE) 1 Q6H SQ Last administered on 06/19/16at 09:36; Start 06/16/16 at 09:00; Stop 06/21/16 at 11 :54; Status DC Miscellaneous Information SPECIFIC LAB TO BE DRAWN:VANCO TROUGH DATE TO BE DRValente.. ONCE ONCE XX ; Start 06/16/16 at 17:45; Stop 06/16/16 at 17:46; Status DC Ceftazidime/ Avibactam/Sodium Chloride (Avycaz Inj/NS Inj) 100 ml @ 50 mls/hr ONCE IV Last administered on 06/17/16at 03:14; Start 06/17/16 at 04:00; Stop 06/17/16 at 05:59; Status DC Ondansetron HCl (Zofran Inj) 4 mg Q6HR PRN IV PUSH NAUSEA Last administered on 06/28/16at 14:05; Start 06/16/16 at 17:00 Promethazine HCl (Phenergan Supp) 25 mg Q6H PRN RECTAL NAUSEA Last administered on 06/16/16at 14:30; Start 06/16/16 at 13:15 Metoclopramide HCl (Reglan) 10 mg ACHS PRN PO Nausea; Start 06/16/16 at 15:00 Al Hydrox/Mg Hydrox/Simethicone (Mag-Al Plus Susp Liq) 30 ml Q6H PRN PO DYSPEPSIA OR HEARTBURN; Start 06/16/16 at 15:00 Miscellaneous Information SPECIFIC LAB TO BE ZEENAT... ONCE ONCE XX ; Start 06/18 at 05:45; Stop 06/18/16 at 05:46; Status DC Ceftazidime/ Avibactam/Sodium Chloride (Avycaz Inj/NS Inj) 50 ml @ 25 mls/hr Q8H IV Last administered on 06/18/16at 19:34; Start 06/17/16 at 21:00; Stop 06/18/16 at 23:59; Status DC Morphine Sulfate (Morphine Inj) 4 mg Q6H PRN IV PUSH PAIN 7-10 Last administered on 06/20/16at 13:28; Start 06/19/16 at 15:45; Stop 06/20/16 at 14 :44; Status DC Oxycodone/ Acetaminophen (Percocet 10-325 Mg) 1 tab Q6H PRN PO PAIN SCALE 7 TO 10 Last administered on 07/04/16 16:37; Start 06/19/16 at 11:15 Insulin Human Regular (NovoLIN R SUPPLEMENTAL SCALE) 1 Q6HR SQ Last administered on 06/24/16at 00:00; Start 06/21/16 at 12:00; Stop 07/05/16 at 12: 30; Status DC Acetazolamide Sodium (Diamox Inj) 500 mg Q8H IV PUSH Last administered on 06/25at 04:33; Start 06/24/16 at 12:00; Stop 06/25/16 at 04:01; Status DC Potassium Chloride (KCl) 40 meq ONCE ONCE PO ; Start 06/24/16 at 15:30; Stop 06/24/16 at 15:31; Status UNV Zolpidem Tartrate (Ambien) 10 mg HS PRN PO insomnia Last administered on 20:22; Start 06/28/16 at 01:15 Rivaroxaban (Xarelto) 20 mg DAILY PO Last administered on 07/05/16 08:25; Start 06/28/16 at 09:00 Acetazolamide Sodium (Diamox Inj) 500 mg Q8H IV PUSH Last administered on 04:00; Start 07/02/16 at 12:00; Stop 07/03/16 at 04:01; Status DC Potassium Chloride (KCl) 40 meq ONCE ONCE PO Last administered on 07/04/16 10: 03; Start 07/04/16 at 10:00; Stop 07/04/16 at 10:01; Status DC Insulin Human Regular (NovoLIN R SUPPLEMENTAL SCALE) 1 DAILY@0600 SQ ; Start 07/06/16 at 06:00 Past, Family & Social History Past Medical History PFSH Reviewed: Yes Additional past medical hx Past medical history was reviewed is an extensive period Review of Systems Constitutional: DENIES: Good general health, Recent weight change, Fever, Fatigue, Pain Eyes: DENIES: Blurred/Double vision, Hx eye disease Ears/Nose/Mouth/Throat: DENIES: Ringing in ears, Change in hearing, Deafness/ hearing aid, Sore throat, Trouble swallowing Cardiovascular: DENIES: Heart Disease, Hx CHF / chest pain, Hx hypertension, Hx phlebitis / clots, Swelling legs / ankles, Varicose veins, Hx Rheumatic Fever Respiratory: DENIES: Frequent colds, Difficulty breathing, Cough (productive?) , Asthma / hay fever, Emphysema, TB Gastrointestinal: DENIES: Heartburn, Vomiting, Constipation, Diarrhea, Black Stools, Blood in stools, Peptic ulcer, Abdominal pain Genitourinary: DENIES: Renal disease, Dialysis, Freq or burning urination, Blood in urine, Difficulty in urination, Incontinence Musculoskeletal: DENIES: Leg pain (rest or walk), Back pain, Joint pain/swell/ dysarthr, Deformaties Integumentary: DENIES: Rash, Hx masses/lumps, Birthmrk/wart/lump/nodule, Slow to heal after cuts, Bleeding/bruising tendncy Neurological: DENIES: CVA/Stroke, Spinal Cord Injury, Seizures, Tremors, Numbness/tingling, Changes in sensation, Difficulty with balance Psychiatric: DENIES: Depression/anxiety, Change in memory, Insomnia Endocrine: DENIES: Thyroid disease, Heat/cold intolerance, Excessive thirst Hematologic/Lymphatic: DENIES: Blood borne disease, Anemia, Blood abnormalities Allergic/Immunologic: DENIES: Rheumatoid Arthritis, Skin/Food/Drug reaction, Lupus, Sickle Cell disease, Scleroderma, Vasculitis Exam-Podiatry Constitutional General appearance: comfortable Nutritional status: overweight (morbidly obese) Orientation: alert and oriented x3 Dermatological Exam Skin Temp - Right: Within Normal Limits Skin Texture - Right: Within Normal Limits Skin Elasticity - Right: Within Normal Limits Skin Tugor - Right: Within Normal Limits Hair Growth - Right: Within Normal Limits Pigmentation - Right: Within Normal Limits Skin Temp - Left: Within Normal Limits Skin Texture - Left: Within Normal Limits Skin Elasticity - Left: Within Normal Limits Skin Tugor - Left: Within Normal Limits Hair Growth - Left: Within Normal Limits Pigmentation - Left: Within Normal Limits Ulcers: Location/Measurements Superficial purulent ulceration right lateral leg secondary to pressure. No ascending cellulitis or erythema seen. Vascular/Lymphatic Exam R Dorsails Pedis: Palpable L Dorsails Pedis: Palpable R Posterior Tibial: Palpable L Posterior Tibial: Palpable Neurologic Exam Details Deferred as patient is intubated Musculoskeletal Exam Details Severe externally rotated right lower leg Muscle Strength Dorsiflexion (Right): Normal Plantarflexion (Right): Normal Inversion (Right): Normal Eversion (Right): Normal Digital (Right): Normal Dorsiflexion (Left): Normal Plantarflexion (Left): Normal Inversion (Left): Normal Eversion (Left): Normal Digital (Left): Normal Foot Range of Motion Dorsiflexion (Right): Normal Plantarflexion (Right): Normal Inversion (Right): Normal Eversion (Right): Normal Digital (Right): Normal Dorsiflexion (Left): Normal Plantarflexion (Left): Normal Inversion (Left): Normal Eversion (Left): Normal Digital (Left): Normal Lab and Radiology Results Laboratory Laboratory Tests Test 07/04/16 04:16 White Blood Count 10.2 TH/MM3 Red Blood Count 3.84 MIL/MM3 Hemoglobin 10.1 GM/DL Hematocrit 32.2 % Mean Corpuscular Volume 83.8 FL Mean Corpuscular Hemoglobin 26.2 PG Mean Corpuscular Hemoglobin 31.3 % Concent Red Cell Distribution Width 23.7 % Platelet Count 274 TH/MM3 Mean Platelet Volume 6.9 FL Laboratory Tests Test 07/04/16 04:16 Sodium Level 140 MEQ/L Potassium Level 3.2 MEQ/L Chloride Level 90 MEQ/L Carbon Dioxide Level 41.5 MEQ/L Anion Gap 9 MEQ/L Blood Urea Nitrogen 7 MG/DL Creatinine 0.25 MG/DL Estimat Glomerular Filtration 429 ML/MIN Rate Random Glucose 81 MG/DL Calcium Level 8.8 MG/DL Radiology Last Impressions Chest X-Ray 06/17/16 0600 Signed Impressions: Service Date/Time: Friday, June 17, 2016 04:38 - CONCLUSION: No significant change. Garcia Ramirez MD Liver Ultrasound 06/03/16 0000 Signed Impressions: Service Date/Time: Friday, June 03, 2016 08:10 - CONCLUSION: 1. There is some sludge in the gallbladder. This can be seen with chronic gallbladder disease. 2. Fatty infiltration of the liver which appears to be enlarged. 3. No mechanical biliary tract obstruction. 4. Splenomegaly. Lázaro Frankel MD Brachial Plexus MRI 06/03/16 0000 Signed Impressions: Service Date/Time: Friday, June 03, 2016 12:42 - CONCLUSION: There is a complex multiloculated soft tissue and cystic mass measuring approximately 5.5 x 6.0 x 7.8 cm involving the subscapularis muscle along the anterior right scapula. The differential considerations include neoplastic disease, infection and hematoma. Recommend a CT scan of the right shoulder to pre-plan for CT-guided aspiration/biopsy of this abnormality. Lázaro Frankel MD Cervical Spine MRI 05/29/16 0000 Signed Impressions: Service Date/Time: Sunday, May 29, 2016 13:51 - CONCLUSION: Limited study but appears normal. Vishnu Woodward MD Brain MRI 05/29/16 0000 Signed Impressions: Service Date/Time: Sunday, May 29, 2016 13:51 - CONCLUSION: 1. Focal chronic ischemic change in the high right frontal parietal convexity stable from previous CT scan. 2. No acute intracranial abnormality. 3. Minimal nonspecific white matter changes. Vishnu Woodward MD Upper Extremity Ultrasound 05/28/16 0000 Signed Impressions: Service Date/Time: Saturday, May 28, 2016 10:16 - CONCLUSION: 1. Negative for deep venous thrombosis. Venous line noted in cephalic, subclavian and internal jugular vein. Horacio Gupta MD Abdomen X-Ray 04/29/16 0000 Signed Impressions: Service Date/Time: Friday, April 29, 2016 07:12 - CONCLUSION: Suspect Dobbhoff tube in the distal stomach. Garcia Lujan MD Assessment/Plan Problem List: (1) Pressure ulcer of right leg, stage 2 Status: Acute Additional Plans & Procedures PLAN:. Instructed the nurse how to offload the leg with pillows under his knee. Culture and sensitivity of the wound to be done. Optifoam gentle AG dressings ordered. I will follow the patient as needed. Thank you for this consultation. Vishnu Bell DPM Jul 05, 2016 14:15
[2016-07-05] MEDS: oxyCODONE/ACETAMINOPHEN 10 MG/325 MG TAB PO PRN (15:33)
--- NOTE | 2016-07-05 17:26 | HHI.CCPN ---
Subjective Remarks/Hospital Course 31 year old morbidly obese (BMI 68) male with chronic respiratory failure s/p tracheostomy 4 years ago, atrial fibrillation and pulmonary embolism on Xarelto , COPD, CHF and h/o HTN. He presented from [facility] with low oxygen saturation apparently his oxygen saturation was 82% on RA. He was placed back on 6L of oxygen via his trach mask and given a breathing treatment, initially improved however he started drifting back to low 80s again. Chest x-ray showed bibasilar infiltrates and pulmonary edema. Patient was admitted to the major hospital service and was started on IV steroids IV vancomycin and Zosyn and Levaquin for healthcare associated pneumonia. After starting ACV, patient was more awake but there was a significant amount of air leak around his tracheostomy. 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 05/02 the patient became acutely hypoxemic with a large cuff leak, underwent emergency trach exchange at bedside by Dr. Macias. FiO2 65% PEEP 14 05/13 Patient is on ventilator via trach, on Fentanyl infusion however he is awake and alert. On PRVC with FIO2 40%. Afebrile. 05/14 No acute events overnight. Tmax 99.8. Patient is awake, alert on ventilator via trach still requiring increase O2. On PRVC with PEEP: 10 and FIO2 70%. 05/15 Pt acutely desaturated after he was found. Saturation down to 70% on 100 % oxygen. Bag and mask ventilation carried out, with eventual improvement on oxygen saturation to 85%. Patient was placed on PC/AC mode of ventilation, with PEEP of 15 and instructed to pressure of 30. Eventually oxygen saturation improved to 95%. Lasix him today as the chest x-ray from today shows increasing bilateral infiltrate and pulmonary edema. Sputum culture will be sent 05/16 Patient is on Fentanyl and Diprivan infusion but awake and alert. Afebrile. On PC/AC with PEEP:15, IP: 22, IT:1.3 and FIO2 50% 05/17 Patient is off Diprivan and remains on Fentanyl infusion for sedation. On PC/AC with PEEP: down 10 and FIO2 40%. Afebrile. 05/18 Patient remains on ventilator via trach on PC/AC with PEEP:12, FIO2 40%, IP:22, IT:1.0. On Fentanyl infusion 05/19 No acute events overnight. On Fentanyl infusion but awake and alert. Afebrile. 05/20 Tolerating C Pap 17/12 FIO2 40, sats 98%. RSBI in 20s, appears can be weaned further. Afebrile. Speech therapy evaluated and ok for regular diet. Starting with full liquid. 05/21 Will wean PSV to 15/10. Tolerated full liquids, will advance to regular diet per speech recs. 05/22 On PSV 15/10 FIO2 40 with sats 92%. Smiling today. Glad to be eating regular food again. 05/23 No acute events overnight. Remains on CPAP with PS 15, PEEP:10 and FIO2 40 %. Afebrile. Off Fentanyl drip. Afebrile. Awake and alert. 05/24 Patient is on CPAP 06/06 with 40% FIO2. Afebrile. Awake and alert, on no sedation. 05/25 No acute events overnight. Patient was placed back on PC/AC overnight. Tolerated CPAP trials during day yesterday. Awake and alert. On no drips. Afebrile. 05/26 Afebrile. Tmax 98.6. Today the patient complained of nausea requiring Zofran. The patient has a lack of an appetite, with noted hypoglycemia early this a.m. blood glucose level 69. Patient tolerating CPAP well greater than 12 hours in the last 24 hours. 05/27 The patient tolerated CPAP for over 36 hours, O2 sat a knee 94% on FIO2 40 %. The patient had an increase in appetite. The patient continues on full liquid diet. 05/28 The patient declined physical therapy treatment, yesterday and also overnight declined to be moved by nursing staff. The patient refused dinner last evening, of note patient was reevaluated by speech therapy and can consume a heart healthy diet with thin liquids. The patient continues on physical therapy for strengthening exercises of all extremities specifically noted right upper extremity continues to be weak with gross fibrillations noted in hand and forearm. 05/29 Afebrile. No change in right upper extremity weakness. The patient was seen by neurology yesterday plan for MRI today if possible in hospital MRI, and EMG studies. No complaints overnight. Patient continues to refuse to have activities performed, movement in bed. The patient appears to be depressed, psychiatry consulted. 05/30: Patient alert awake on CPAP. Following commands. Psych agrees the patient is depressed. MRI brain no acute findings 05/31: Awake alert. on PS 15/8. EMG could not be completed due to patient becoming anxious. Otherwise no acute events reported overnight 06/01: Remains PS from 11/02. Right upper extremity weakness persists. EMG to be repeated on Friday. Will need MRI of the brachial plexus. Chest x-ray is unchanged 06/02: States that "not feeling well". Febrile to 101.5. White count increasing but still within the normal range. Pancultured. We'll request ID reevaluation. 06/03: Resting in bed on C Pap/pressure support via tracheostomy. One out of 2 sets of blood cultures sent on 06/02 positive for gram-positive cocci. 06/04: Resting in bed on mechanical ventilation via tracheostomy. Afebrile overnight. MRI brachial plexus (06/03) revealed a collection near the right subscapularis muscle, possibly an abscess. Discussed with ID, orthopedics Dr. Velazquez consulted. I discussed the case with Dr. Velazquez this morning who feels this is probably an abscess however would be difficult to access surgically and he plans to set up percutaneous drainage by interventional radiology. 06/05: Resting in bed on mechanical ventilation via tracheostomy. Remains afebrile. Reportedly IR cannot do percutaneous drainage of collection involving right subscapularis muscle. 06/06: Resting in bed on mechanical ventilation via tracheostomy. Can actually speak around the trach. Remains afebrile. Dr. Velazquez evaluated patient and is scheduling surgery for drainage of fluid collection involving the right subscapularis muscle. 06/07: Resting in bed on mechanical ventilation via tracheostomy. Awaiting surgery today. 06/08: Status post I&D of collection near right shoulder/subscapularis on 06/[address] Velazquez. This morning patient is awake and alert complained of some pain at the surgical site. Remains on mechanical ventilation on C Pap/pressure support. 06/09: Sleeping, arousable. On mechanical ventilation with C Pap/pressure support overnight. Labs pending 06/10 No acute events overnight. On CPAP with PS 12, PEEP: 8, FIO2 40%. Afebrile. 06/11 Patient remains on CPAP with PS 10, PEEP: 8 and FIO2 40%. Afebrile. 06/12: No acute events overnight. Remains on CPAP 10/5. No specific complaints 06/13: Tolerating C Pap 10 over 5. Awake and alert following commands. Hemoglobin dropped from 8.6-7.1, no obvious bleeding. Sodium 140-149. Will give 1 unit of PRBC with 1 mg IV Bumex 06/14 No acute events overnight. On CPAP with PS 10, PEEP:5 and FIO2 50%. Afebrile. 06/15 No acute events overnight. Remains on CPAP 10/5 with 40% FIO2. Afebrile. 06/16 Patient remains on ventilator via trach on CPAP with PS 10, PEEP:5 and FIO2 40%. 06/17: Resting in bed on mechanical ventilation via tracheostomy. Feeling nauseous. 06/18: OOB in reclining chair. Reporting low back and leg pain that is positional. Continued nausea, denies emesis. CPAP w PS 5 FIO2 40%. Will attempt Tpiece trial today. Discontinue Vanc + Zerbaxa today per ID 06/19: No acute events overnight. Afebrile. HTN to 160/80. CPAP with PS 10. PEEP 10 FIO2 45. Failed Tpiece trial yesterday- desaturated to mid 70s. Denies SOB/CP. Nausea is less than before. Bed is broken and patient would like the mattress to "rotate". Per nursing, they are working to fix it. 06/20: No acute events overnight. Afebrile. HTN to 145/70. CPAP with PEEP 10 FIO2 45, with saturation 93=94%. Pt has no acute complaints. Denies SOB/CP/ Nausea. Didn't know why he threw up during PT yesterday. Denies pain. Still having diarrhea (chronic years in duration issue). Was eating Pringles in bed. Per nursing, does not eat hospital food- waits for mother to bring him food. He was counseled to eat the hospital food which is healthier for him and that he needs to stop eating food brought in by his mother. 06/21: Remains on mechanical ventilation, CPAP with pressure support. 06/22: On mechanical ventilation on C Pap with pressure support. Denies any nausea or abdominal pain. Appears comfortable. 06/23: Resting in bed on mechanical ventilation with C Pap/pressure support +10/ +5. Denies any shortness of breath denies any abdominal pain or nausea currently. 06/24: Refusing to get OOB with physical therapy today. I had a long discussion with the patient about the fact that he has been inpatient for months now and he is severely deconditioned. He must get out of bed with PT to clinically improve, and deconditioning is a major factor in his chronic respiratory failure. He denies chest pain or SOB. does endorse some nausea today. 06/25: tolerated 4 hours OOB yesterday with 4 hours of trach collar. plan to go 6 hours today. 06/26: tolerated OOB to chair 5 hours yesterday but only 1.5hr of trach collar due to hypoxia. 06/27: tolerated OOB to chair for 6 hours yesterday and almost 5 hours of trach collar. daily, he continues to be very resistant to participating in PT and getting OOB. He again asks if he can lay in bed today. 06/28: tolerated 6 hours of trach collar yesterday. OOB for almost 8 hours. 06/29: continues to tolerate daily trach collar trials. OOB for 8 hours again yesterday. 06/30: tolerated 8 hours of trach collar yesterday. OOB for 7 hours. can do trach collar as tolerated. he continues to make attempts to refuse physical therapy and does not wish to participate in his care. Subjective: 07/01: no changes. did well with 8 hours of trach collar and 8-9 hours of OOB. will attempt to stand and possibly walk in place today. this certainly is a large undertaking given how deconditioned he is, but I think the mobilization will help to continue our rehabilitation efforts. will be taxing on medical staff to physically assist him. This is likely something we can only do on a weekly basis. 07/02: took 3 steps yesterday (first time out of bed in almost 3 months). otherwise, tolerating daily t-piece with nightly CPAP. plan for OOB and steps again today. trach collar as tolerated. diamox x 3 doses for worsening contraction alkalosis. net -900cc/24h. 07/03: OOB and a few steps again yesterday. trying to push him to longer t-piece intervals with fewer rests on CPAP. OOB all day again today. net euvolemic yesterday. lab holiday today. 1/5: to chair today. trach collar as tolerated. I really think he could go most of the night if not all night on trach collar, but he keeps insisting on going back on the vent to rest. brought to my attention by family practice team for ankle skin breakdown. agree with podiatry consult. 07/05: OOB to chair again today. tolerated trach collar yesterday. CPAP at night. keeps asking to go back on rate on vent overnight. I do not think medically he needs this. podiatry saw patient and recommended dressing and elevation for foot. Objective Vital Signs Date Time Temp Pulse Resp B/P Pulse Ox O2 Delivery O2 Flow Rate FiO2 07/05/16 14:00 94 07/05/16 12:00 98.0 22 127/69 93 07/05/16 11:30 T-piece 50 07/03/16 23:00 8.00 Intake and Output 07/04/16 07/04/16 07/05/16 08:00 16:00 00:00 Intake Total 355 ml 1200 ml 360 ml Output Total 800 ml 725 ml 325 ml Balance -445 ml 475 ml 35 ml Result Diagram: 07/04/16 0416 07/04/16 0416 Imaging MRI 06/20/16: No official reading. Preliminary reading suggests periventricular white matter changes at basal ganglia and no evidence ischemia CXR 06/17/16: Poor penetration. Rotated image. Unable to visualize lung bases. Possible atelectasis vs infiltrate R worse than L. Objective Remarks GEN: 31yo on ventilator via trach, awakens and follows commands. Super morbidly obese. SKIN: Warm and dry. HEAD: Normocephalic. EYES: No scleral icterus. No injection or drainage. NECK: obese with large neck circumference, trachea midline. Shiley 6.0 Proximal XLT, (new trach placed 05/02/16) CV: normal rate, regular rhythm. RESP: On mechanical ventilation, Breath sounds equal bilaterally. Distant secondary to habitus. GI: Abdomen soft, obese, non-tender, nondistended. Multiple noted areas of ecchymotic bruising secondary to subcutaneous injections. MSK: No cyanosis, or edema. Pedal edema. Neuro: Arousable. Moves all extremities with focal deficit right upper extremity. RASS 0. 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 -status post exchange with new Shiley 6.0 Proximal XLT 05/02/16 Probable right brachial plexus injury COPD/obesity hypoventilation syndrome Morbid Obesity BMI 60-69 History of pulmonary embolism 4 years ago Chronic atrial fibrillation Anxiety CHF (Echo 2013 EF 40-45%; ECHO 08/2015 showing a grossly normal systolic function) Hypertension Hypothyroidism Depression PLAN NEURO: CO2 narcosis - resolved Critical care polyneuropathy Right upper extremity weakness 05/21-possibly secondary to nerve compression, C6 , C7 (brachial plexus) Pain Anxiety Depression -EMG/ NCV could not be completed on 05/[address] Castillo -Clinically has right brachial plexus involvement. MRI of brachial plexus on 06/03 revealed collection involving right subscapularis muscle- s/p I & D on 06/[address] Velazquez. -Neurology Dr. Cheek-MRI brain, C spine no acute findings. -Venous Doppler RUE 05/28-negative for DVT -Continued PT daily, with strengthening exercise - I discussed again with patient that participating in PT is necessary to his medical care. -Continue Seroquel 100mg HS. 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 Attempt TP/TC as tolerated. Will try again today. I think there is a strong volitional component to his failing t-piece because he states he feels tired before objective evidence of increased work of breathing. - Continue DuoNeb q6h REYES + q2h PRN, Pulmicort BID, Singulair 10mg daily - trach collar as tolerated. including trach collar at night if possible. OOB to chair. I do not think he should go back on a rate unless he clinically declines. CV: CHF exacerbation Pulmonary edema Paroxysmal atrial fibrillation (chronic) Hyperlipidemia -Monitor HR and BP keep MAP>65mmHg -Cardizem 90mg QID, Bumex 1mg daily PO, Lipitor 10g daily, TriCor 40mg by mouth daily -continue home Xarelto. GI: Super morbid obesity with BMI of 64 Nausea GERD -Regular diet, thin liquids per speech recs -Liver US 06/03: Fatty liver, sludge in gall bladder, splenomegaly, no mechanical obstruction of bile duct noted. -Protonix 20mg BID. Zofran prn for nausea. -Multivitamin daily -Bringing in food, per nurses. Not adherent to hospital diet. Consider call to family to restrict them from bringing food. FEN/RENAL: Hypokalemia Metabolic alkalosis - Monitor renal function , I/O, electrolytes replacement per protocol. - Bumex 1mg PO daily, KCL 40meq Q12 ID: Healthcare associated pneumonia Sepsis New fever MDRO Cellulitis right arm-resolved Leukocytosis-resolved Enterococcal faecalis bacteremia, Pseudomonas bacteremia (06/02, 06/03) -Wound culture Pseudomonas MDR 04/27 -Sputum culture-Pseudomonas MDR- 04/27 -Urine cx: Proteus Mirabilis 05/05 -Sputum cx: Providencia 05/05 -Bronchoscopy and re-culture 05/10- NG -Wound cx: Proteus, Pseudomonas, Group D Enterococcus- 05/13 -Sputum cx- NG- 05/15 -Blood culture: aerobic and anaerobic bottles - enterococcus faecalis, pseudomonas aeruginosa 06/02, 06/03 -Urine culture: pseudomonas aeruginosa- 06/02 -Wound culture: pseudomonas aeruginosa- 06/02 -Sputum culture: Pseudomonas- 06/02 -Dr. Velazquez performed drainage of collection surgically on 06/07- likely hematoma -Stopped IV Vanc and Zerbaxa on 06/18. (MDR pseudomonas in blood cultures) - colistin nebs stopped 06/27 HEME: History of PE on chronic anticoagulation with Xarelto Iron deficiency anemia and anemia of critical illness. -Monitor CBC, transfused 1U PRBC 06/13 -Xarelto for PE 4 yrs ago. -Continue Xarelto. -Ferrous sulfate 300 mg/q day ENDO: Hypothyroidism -On SSI (Low scale) -Continue levothyroxine 50 mcg po daily -Free T4 1.52 MSK: --agree with podiatry consult. PROPH: -Lower extremity SCDs (L leg only, R ankle cellulitis), continue home xarelto GI prophylaxis- Protonix 20mg BID LINES: - PICC line RUE- No DVT on US 05/02 - removed on 06/03. - Willard catheter is greater than 1 month old with sediment clogging. will d/c and attempt to give him a willard holiday. if unable, we will place new willard catheter. Out of bed with assistance. PT out of bed with vent. OT. Dispo: Once we can get him off the ventilator, he can go back to his rehab facility. Until then, he remains in the ICU. q48h labs. Fletcher Brown MD Jul 05, 2016 17:26
[2016-07-05] MEDS: RESP: ALBUTEROL 2.5 MG/IPRATROPIUM 0.5 MG NEB (PRN) NEB (19:28)
[2016-07-05] MEDS: QUEtiapine FUMARATE 100 MG TAB PO SCH (20:04)
[2016-07-05] MEDS: ZOLPIDEM TARTRATE 10 MG TAB PO PRN (23:03)
[2016-07-06] VITALS (15 sets, daily range): BP systolic 109–136; BP diastolic 67–86; PULSE 83–100; RESP 17–27; TEMP 97.8–98.7; O2SAT 89–99
[2016-07-06] MEDS: oxyCODONE/ACETAMINOPHEN 10 MG/325 MG TAB PO PRN ×3 (02:36→18:11)
[2016-07-06] MEDS: RESP: ALBUTEROL 2.5 MG/IPRATROPIUM 0.5 MG NEB (PRN) NEB ×2 (02:58→19:40)
[2016-07-06] MEDS: INSULIN NovoLIN REGULAR SUPPLEMENTAL SCALE SQ SCH (05:52)
[2016-07-06] MEDS: LEVOTHYROXINE SODIUM 50 MCG TAB PO SCH (05:52)
[2016-07-06 06:53] LABS: BICARBONATE 39.4 MEQ/L (21.0-32.0)
[2016-07-06 07:36] LABS: HEMATOCRIT 32.1 % (39.0-51.0); MEAN CELL VOLUME 83.6 FL (80.0-100.0); MEAN CORPUSCULAR HEMOGLOBIN 26.9 PG (27.0-34.0); MEAN CORPUSCULAR HGB CONC 32.2 % (32.0-36.0); PLATELET COUNT 314 TH/MM3 (150-450); RED BLOOD COUNT 3.83 MIL/MM3 (4.50-5.90); RED CELL DISTRIBUTION WIDTH 24.3 % (11.6-17.2); WHITE BLOOD COUNT 18.2 TH/MM3 (4.0-11.0)
[2016-07-06 07:37] LABS: REVIEW FLAG FINAL
[2016-07-06] MEDS: CHLORHEXIDINE 0.12% (ORAL KIT) 15 ML CUP MT SCH ×2 (08:28→21:15)
[2016-07-06] MEDS: SODIUM CHLORIDE 0.9% FLUSH 5 ML FLUSH IVF SCH ×2 (08:29→21:15)
[2016-07-06] MEDS: COLLAGENASE OINT 30 GM TUBE TOP SCH (08:29)
[2016-07-06] MEDS: NYSTATIN 100,000 U/GM PWD 15 GM BTL TOPICAL SCH ×2 (08:29→21:19)
[2016-07-06] MEDS: SERTRALINE HCL 100 MG TAB PO SCH (08:30)
[2016-07-06] MEDS: FERROUS SULFATE 325 MG (65 MG ELEMENTAL IRON) TAB PO SCH (08:30)
[2016-07-06] MEDS: FENOFIBRATE 48 MG TAB PO SCH (08:30)
[2016-07-06] MEDS: MONTELUKAST SODIUM 10 MG TAB PO SCH (08:30)
[2016-07-06] MEDS: PANTOPRAZOLE SOD 20 MG DELAYED RELEASE TAB PO SCH ×2 (08:30→21:15)
[2016-07-06] MEDS: ALLOPURINOL 300 MG TAB PO SCH (08:30)
[2016-07-06] MEDS: RIVAROXABAN 20 MG TAB PO SCH (08:30)
[2016-07-06] MEDS: DILTIAZEM HCL 90 MG TAB PO SCH ×4 (08:30→21:15)
[2016-07-06] MEDS: MULTIVITAMIN TAB PO SCH (08:30)
[2016-07-06] MEDS: BUMETANIDE 1 MG TAB PO SCH (08:30)
[2016-07-06] MEDS: ATORVASTATIN 10 MG TAB PO SCH (08:32)
--- NOTE | 2016-07-06 08:50 | HHI.CCPN ---
Subjective Remarks/Hospital Course 31 year old morbidly obese (BMI 68) male with chronic respiratory failure s/p tracheostomy 4 years ago, atrial fibrillation and pulmonary embolism on Xarelto , COPD, CHF and h/o HTN. He presented from [facility] with low oxygen saturation apparently his oxygen saturation was 82% on RA. He was placed back on 6L of oxygen via his trach mask and given a breathing treatment, initially improved however he started drifting back to low 80s again. Chest x-ray showed bibasilar infiltrates and pulmonary edema. Patient was admitted to the [facility] service and was started on IV steroids IV vancomycin and Zosyn and Levaquin for healthcare associated pneumonia. After starting ACV, patient was more awake but there was a significant amount of air leak around his tracheostomy. Patient has had a Shiley 6.0 Proximal XLT, but the submersible pilot balloon had been cut off. 05/02 the patient became acutely hypoxemic with a large cuff leak, underwent emergency trach exchange at bedside by Dr. Macias. FiO2 65% PEEP 14 05/13 Patient is on ventilator via trach, on Fentanyl infusion however he is awake and alert. On PRVC with FIO2 40%. Afebrile. 05/14 No acute events overnight. Tmax 99.8. Patient is awake, alert on ventilator via trach still requiring increase O2. On PRVC with PEEP: 10 and FIO2 70%. 05/15 Pt acutely desaturated after he was found. Saturation down to 70% on 100 % oxygen. Bag and mask ventilation carried out, with eventual improvement on oxygen saturation to 85%. Patient was placed on PC/AC mode of ventilation, with PEEP of 15 and instructed to pressure of 30. Eventually oxygen saturation improved to 95%. Lasix him today as the chest x-ray from today shows increasing bilateral infiltrate and pulmonary edema. Sputum culture will be sent 05/16 Patient is on Fentanyl and Diprivan infusion but awake and alert. Afebrile. On PC/AC with PEEP:15, IP: 22, IT:1.3 and FIO2 50% 05/17 Patient is off Diprivan and remains on Fentanyl infusion for sedation. On PC/AC with PEEP: down 10 and FIO2 40%. Afebrile. 05/18 Patient remains on ventilator via trach on PC/AC with PEEP:12, FIO2 40%, IP:22, IT:1.0. On Fentanyl infusion 05/19 No acute events overnight. On Fentanyl infusion but awake and alert. Afebrile. 05/20 Tolerating C Pap 17/12 FIO2 40, sats 98%. RSBI in 20s, appears can be weaned further. Afebrile. Speech therapy evaluated and ok for regular diet. Starting with full liquid. 05/21 Will wean PSV to 15/10. Tolerated full liquids, will advance to regular diet per speech recs. 05/22 On PSV 15/10 FIO2 40 with sats 92%. Smiling today. Glad to be eating regular food again. 05/23 No acute events overnight. Remains on CPAP with PS 15, PEEP:10 and FIO2 40 %. Afebrile. Off Fentanyl drip. Afebrile. Awake and alert. 05/24 Patient is on CPAP 06/06 with 40% FIO2. Afebrile. Awake and alert, on no sedation. 05/25 No acute events overnight. Patient was placed back on PC/AC overnight. Tolerated CPAP trials during day yesterday. Awake and alert. On no drips. Afebrile. 05/26 Afebrile. Tmax 98.6. Today the patient complained of nausea requiring Zofran. The patient has a lack of an appetite, with noted hypoglycemia early this a.m. blood glucose level 69. Patient tolerating CPAP well greater than 12 hours in the last 24 hours. 05/27 The patient tolerated CPAP for over 36 hours, O2 sat a knee 94% on FIO2 40 %. The patient had an increase in appetite. The patient continues on full liquid diet. 05/28 The patient declined physical therapy treatment, yesterday and also overnight declined to be moved by nursing staff. The patient refused dinner last evening, of note patient was reevaluated by speech therapy and can consume a heart healthy diet with thin liquids. The patient continues on physical therapy for strengthening exercises of all extremities specifically noted right upper extremity continues to be weak with gross fibrillations noted in hand and forearm. 05/29 Afebrile. No change in right upper extremity weakness. The patient was seen by neurology yesterday plan for MRI today if possible in hospital MRI, and EMG studies. No complaints overnight. Patient continues to refuse to have activities performed, movement in bed. The patient appears to be depressed, psychiatry consulted. 05/30: Patient alert awake on CPAP. Following commands. Psych agrees the patient is depressed. MRI brain no acute findings 05/31: Awake alert. on PS 15/8. EMG could not be completed due to patient becoming anxious. Otherwise no acute events reported overnight 06/01: Remains PS from 11/02. Right upper extremity weakness persists. EMG to be repeated on Friday. Will need MRI of the brachial plexus. Chest x-ray is unchanged 06/02: States that "not feeling well". Febrile to 101.5. White count increasing but still within the normal range. Pancultured. We'll request ID reevaluation. 06/03: Resting in bed on C Pap/pressure support via tracheostomy. One out of 2 sets of blood cultures sent on 06/02 positive for gram-positive cocci. 06/04: Resting in bed on mechanical ventilation via tracheostomy. Afebrile overnight. MRI brachial plexus (06/03) revealed a collection near the right subscapularis muscle, possibly an abscess. Discussed with ID, orthopedics Dr. Velazquez consulted. I discussed the case with Dr. Velazquez this morning who feels this is probably an abscess however would be difficult to access surgically and he plans to set up percutaneous drainage by interventional radiology. 06/05: Resting in bed on mechanical ventilation via tracheostomy. Remains afebrile. Reportedly IR cannot do percutaneous drainage of collection involving right subscapularis muscle. 06/06: Resting in bed on mechanical ventilation via tracheostomy. Can actually speak around the trach. Remains afebrile. Dr. Velazquez evaluated patient and is scheduling surgery for drainage of fluid collection involving the right subscapularis muscle. 06/07: Resting in bed on mechanical ventilation via tracheostomy. Awaiting surgery today. 06/08: Status post I&D of collection near right shoulder/subscapularis on 06/[address] Velazquez. This morning patient is awake and alert complained of some pain at the surgical site. Remains on mechanical ventilation on C Pap/pressure support. 06/09: Sleeping, arousable. On mechanical ventilation with C Pap/pressure support overnight. Labs pending 06/10 No acute events overnight. On CPAP with PS 12, PEEP: 8, FIO2 40%. Afebrile. 06/11 Patient remains on CPAP with PS 10, PEEP: 8 and FIO2 40%. Afebrile. 06/12: No acute events overnight. Remains on CPAP 10/5. No specific complaints 06/13: Tolerating C Pap 10 over 5. Awake and alert following commands. Hemoglobin dropped from 8.6-7.1, no obvious bleeding. Sodium 140-149. Will give 1 unit of PRBC with 1 mg IV Bumex 06/14 No acute events overnight. On CPAP with PS 10, PEEP:5 and FIO2 50%. Afebrile. 06/15 No acute events overnight. Remains on CPAP 10/5 with 40% FIO2. Afebrile. 06/16 Patient remains on ventilator via trach on CPAP with PS 10, PEEP:5 and FIO2 40%. 06/17: Resting in bed on mechanical ventilation via tracheostomy. Feeling nauseous. 06/18: OOB in reclining chair. Reporting low back and leg pain that is positional. Continued nausea, denies emesis. CPAP w PS 5 FIO2 40%. Will attempt Tpiece trial today. Discontinue Vanc + Zerbaxa today per ID 06/19: No acute events overnight. Afebrile. HTN to 160/80. CPAP with PS 10. PEEP 10 FIO2 45. Failed Tpiece trial yesterday- desaturated to mid 70s. Denies SOB/CP. Nausea is less than before. Bed is broken and patient would like the mattress to "rotate". Per nursing, they are working to fix it. 06/20: No acute events overnight. Afebrile. HTN to 145/70. CPAP with PEEP 10 FIO2 45, with saturation 93=94%. Pt has no acute complaints. Denies SOB/CP/ Nausea. Didn't know why he threw up during PT yesterday. Denies pain. Still having diarrhea (chronic years in duration issue). Was eating Pringles in bed. Per nursing, does not eat hospital food- waits for mother to bring him food. He was counseled to eat the hospital food which is healthier for him and that he needs to stop eating food brought in by his mother. 06/21: Remains on mechanical ventilation, CPAP with pressure support. 06/22: On mechanical ventilation on C Pap with pressure support. Denies any nausea or abdominal pain. Appears comfortable. 06/23: Resting in bed on mechanical ventilation with C Pap/pressure support +10/ +5. Denies any shortness of breath denies any abdominal pain or nausea currently. 06/24: Refusing to get OOB with physical therapy today. I had a long discussion with the patient about the fact that he has been inpatient for months now and he is severely deconditioned. He must get out of bed with PT to clinically improve, and deconditioning is a major factor in his chronic respiratory failure. He denies chest pain or SOB. does endorse some nausea today. 06/25: tolerated 4 hours OOB yesterday with 4 hours of trach collar. plan to go 6 hours today. 06/26: tolerated OOB to chair 5 hours yesterday but only 1.5hr of trach collar due to hypoxia. 06/27: tolerated OOB to chair for 6 hours yesterday and almost 5 hours of trach collar. daily, he continues to be very resistant to participating in PT and getting OOB. He again asks if he can lay in bed today. 06/28: tolerated 6 hours of trach collar yesterday. OOB for almost 8 hours. 06/29: continues to tolerate daily trach collar trials. OOB for 8 hours again yesterday. 06/30: tolerated 8 hours of trach collar yesterday. OOB for 7 hours. can do trach collar as tolerated. he continues to make attempts to refuse physical therapy and does not wish to participate in his care. 07/01: no changes. did well with 8 hours of trach collar and 8-9 hours of OOB. will attempt to stand and possibly walk in place today. this certainly is a large undertaking given how deconditioned he is, but I think the mobilization will help to continue our rehabilitation efforts. will be taxing on medical staff to physically assist him. This is likely something we can only do on a weekly basis. 07/02: took 3 steps yesterday (first time out of bed in almost 3 months). otherwise, tolerating daily t-piece with nightly CPAP. plan for OOB and steps again today. trach collar as tolerated. diamox x 3 doses for worsening contraction alkalosis. net -900cc/24h. 07/03: OOB and a few steps again yesterday. trying to push him to longer t-piece intervals with fewer rests on CPAP. OOB all day again today. net euvolemic yesterday. lab holiday today. 07/04: to chair today. trach collar as tolerated. I really think he could go most of the night if not all night on trach collar, but he keeps insisting on going back on the vent to rest. brought to my attention by family practice team for ankle skin breakdown. agree with podiatry consult. Subjective: 07/05: OOB to chair again today. tolerated trach collar yesterday. CPAP at night. keeps asking to go back on rate on vent overnight. I do not think medically he needs this. podiatry saw patient and recommended dressing and elevation for foot. 07/06: on trach collar all night, not on the vent. this is a huge improvement. K 6.0 on bmp this AM, but Cr at baseline. will recheck. Objective Vital Signs Date Time Temp Pulse Resp B/P Pulse Ox O2 Delivery O2 Flow Rate FiO2 07/06/16 06:00 100 07/06/16 04:00 97.9 27 120/67 90 07/06/16 04:00 70 07/05/16 19:32 T-piece 07/03/16 23:00 8.00 Intake and Output 07/05/16 07/05/16 07/06/16 08:00 16:00 00:00 Intake Total 30 ml 850 ml 185 ml Output Total 350 ml 350 ml Balance -320 ml 500 ml 185 ml Result Diagram: 07/06/1661607/06/16616 Imaging MRI 06/20/16: No official reading. Preliminary reading suggests periventricular white matter changes at basal ganglia and no evidence ischemia CXR 06/17/16: Poor penetration. Rotated image. Unable to visualize lung bases. Possible atelectasis vs infiltrate R worse than L. Objective Remarks GEN: 31yo on trach collar, awakens and follows commands. Super morbidly obese. SKIN: Warm and dry. HEAD: Normocephalic. EYES: No scleral icterus. No injection or drainage. NECK: obese with large neck circumference, trachea midline. Shiley 6.0 Proximal XLT, (new trach placed 05/02/16) CV: normal rate, regular rhythm. RESP: On mechanical ventilation, Breath sounds equal bilaterally. Distant secondary to habitus. GI: Abdomen soft, obese, non-tender, nondistended. Multiple noted areas of ecchymotic bruising secondary to subcutaneous injections. MSK: No cyanosis, or edema. Pedal edema. Neuro: Moves all extremities with focal deficit right upper extremity. RASS 0. A/P Assessment and Plan ASSESSMENT Acute hypercapnic and hypoxemic respiratory failure (Shiley 6.0 Proximal XLT) CO2 narcosis (resolved) Acute worsening of hypoxia due to lung de-recruitment (05/15/16, resolved) Healthcare associated pneumonia MDR Pseudomonas Enterococcal bacteremia Pseudomonas bacteremia Collection near right subscapularis muscle(On MRI 06/03) - hematoma status post I &D on 06/07 Sepsis CHF exacerbation Tracheostomy submersible pilot balloon damage -status post exchange with new Shiley 6.0 Proximal XLT 05/02/16 Probable right brachial plexus injury COPD/obesity hypoventilation syndrome Morbid Obesity BMI 60-69 History of pulmonary embolism 4 years ago Chronic atrial fibrillation Anxiety CHF (Echo 2013 EF 40-45%; ECHO 08/2015 showing a grossly normal systolic function) Hypertension Hypothyroidism Depression PLAN NEURO: CO2 narcosis - resolved Critical care polyneuropathy Right upper extremity weakness 05/21-possibly secondary to nerve compression, C6 , C7 (brachial plexus) Pain Anxiety Depression -EMG/ NCV could not be completed on 05/[address] Castillo -Clinically has right brachial plexus involvement. MRI of brachial plexus on 06/03 revealed collection involving right subscapularis muscle- s/p I & D on 06/[address] Velazquez. -Neurology Dr. Cheek-MRI brain, C spine no acute findings. -Venous Doppler RUE 05/28-negative for DVT -Continued PT daily, with strengthening exercise - I discussed again with patient that participating in PT is necessary to his medical care. -Continue Seroquel 100mg HS. Continue Zoloft 100mg daily -Decreased pain reg: Tylenol 625mg pain 1-6, Percocet 10/325 pain 7-10 RESP: Acute hypercapnic and hypoxemic respiratory failure Acute lung derecruitment 05/15 with hypoxia Healthcare associated pneumonia Tracheostomy submersible pilot balloon damage (Shiley 6.0 Proximal XLT) s/p new trach placement 05/02 Chronic Respiratory Failure s/p Tracheostomy 4 years ago COPD/obesity hypoventilation syndrome History of pulmonary embolism 4 years ago Leukocytosis-resolved Pulmonary edema - s/p Bronchoscopy 05/11 -follow up on BAL results negative - Pulm toilet, trach care - Continue with vent support keep sat >88% on CPAP 10, 45% FIO2. Attempt TP/TC as tolerated. Will try again today. I think there is a strong volitional component to his failing t-piece because he states he feels tired before objective evidence of increased work of breathing. - Continue DuoNeb q6h REYES + q2h PRN, Pulmicort BID, Singulair 10mg daily - trach collar as tolerated. OOB to chair. I do not think he should go back on the vent unless he clinically declines. CV: CHF exacerbation Pulmonary edema Paroxysmal atrial fibrillation (chronic) Hyperlipidemia -Monitor HR and BP keep MAP>65mmHg -Cardizem 90mg QID, Bumex 1mg daily PO, Lipitor 10g daily, TriCor 40mg by mouth daily -continue home Xarelto. GI: Super morbid obesity with BMI of 64 Nausea GERD -Regular diet, thin liquids per speech recs -Liver US 06/03: Fatty liver, sludge in gall bladder, splenomegaly, no mechanical obstruction of bile duct noted. -Protonix 20mg BID. Zofran prn for nausea. -Multivitamin daily -Bringing in food, per nurses. Not adherent to hospital diet. Consider call to family to restrict them from bringing food. FEN/RENAL: Hypokalemia Metabolic alkalosis - Monitor renal function , I/O, electrolytes replacement per protocol. - Bumex 1mg PO daily, KCL 40meq Q12 ID: Healthcare associated pneumonia Sepsis New fever MDRO Cellulitis right arm-resolved Leukocytosis-resolved Enterococcal faecalis bacteremia, Pseudomonas bacteremia (06/02, 06/03) -Wound culture Pseudomonas MDR 04/27 -Sputum culture-Pseudomonas MDR- 04/27 -Urine cx: Proteus Mirabilis 05/05 -Sputum cx: Providencia 05/05 -Bronchoscopy and re-culture 05/10- NG -Wound cx: Proteus, Pseudomonas, Group D Enterococcus- 05/13 -Sputum cx- NG- 05/15 -Blood culture: aerobic and anaerobic bottles - enterococcus faecalis, pseudomonas aeruginosa 06/02, 06/03 -Urine culture: pseudomonas aeruginosa- 06/02 -Wound culture: pseudomonas aeruginosa- 06/02 -Sputum culture: Pseudomonas- 06/02 -Dr. Velazquez performed drainage of collection surgically on 06/07- likely hematoma -Stopped IV Vanc and Zerbaxa on 06/18. (MDR pseudomonas in blood cultures) - colistin nebs stopped 06/27 HEME: History of PE on chronic anticoagulation with Xarelto Iron deficiency anemia and anemia of critical illness. -Monitor CBC, transfused 1U PRBC 06/13 -Xarelto for PE 4 yrs ago. -Continue Xarelto. -Ferrous sulfate 300 mg/q day ENDO: Hypothyroidism -On SSI (Low scale) -Continue levothyroxine 50 mcg po daily -Free T4 1.52 MSK: --agree with podiatry consult. PROPH: -Lower extremity SCDs (L leg only, R ankle cellulitis), continue home xarelto GI prophylaxis- Protonix 20mg BID LINES: - PICC line RUE- No DVT on US 05/02 - removed on 06/03. - Willard catheter is greater than 1 month old with sediment clogging. will d/c and attempt to give him a willard holiday. if unable, we will place new willard catheter. Out of bed with assistance. PT out of bed with vent. OT. Dispo: Once we can get him off the ventilator, he can go back to his rehab facility. Until then, he remains in the ICU. q48h labs. Fletcher Brown MD Jul 06, 2016 08:50
[2016-07-06] MEDS: RESP: BUDESONIDE 0.5 MG/2 ML NEB NEB SCH ×2 (08:53→19:40)
[2016-07-06] MEDS: POTASSIUM CHLORIDE 20 MEQ CONTROLLED RELEASE TAB PO SCH ×2 (11:00→23:34)
[2016-07-06] MEDS: ZOLPIDEM TARTRATE 10 MG TAB PO PRN (21:15)
[2016-07-06] MEDS: QUEtiapine FUMARATE 100 MG TAB PO SCH (21:15)
[2016-07-06] MEDS: MICONAZOLE NITRATE 2% CREAM 15 GM TOP SCH (21:18)
[2016-07-07] VITALS (14 sets, daily range): BP systolic 110–147; BP diastolic 59–84; PULSE 83–97; RESP 24–28; TEMP 98–98.6; O2SAT 89–93
[2016-07-07] MEDS: LEVOTHYROXINE SODIUM 50 MCG TAB PO SCH (05:11)
[2016-07-07] MEDS: INSULIN NovoLIN REGULAR SUPPLEMENTAL SCALE SQ SCH (05:11)
[2016-07-07] MEDS: ALLOPURINOL 300 MG TAB PO SCH (07:50)
[2016-07-07] MEDS: FERROUS SULFATE 325 MG (65 MG ELEMENTAL IRON) TAB PO SCH (07:50)
[2016-07-07] MEDS: DILTIAZEM HCL 90 MG TAB PO SCH ×4 (07:50→21:28)
[2016-07-07] MEDS: MULTIVITAMIN TAB PO SCH (07:50)
[2016-07-07] MEDS: ATORVASTATIN 10 MG TAB PO SCH (07:51)
[2016-07-07] MEDS: PANTOPRAZOLE SOD 20 MG DELAYED RELEASE TAB PO SCH ×2 (07:51→21:28)
[2016-07-07] MEDS: MONTELUKAST SODIUM 10 MG TAB PO SCH (07:51)
[2016-07-07] MEDS: FENOFIBRATE 48 MG TAB PO SCH (07:52)
[2016-07-07] MEDS: SERTRALINE HCL 100 MG TAB PO SCH (07:52)
[2016-07-07] MEDS: oxyCODONE/ACETAMINOPHEN 10 MG/325 MG TAB PO PRN ×3 (07:52→17:49)
[2016-07-07] MEDS: MICONAZOLE NITRATE 2% CREAM 15 GM TOP SCH ×2 (07:53→21:30)
[2016-07-07] MEDS: RIVAROXABAN 20 MG TAB PO SCH (07:53)
[2016-07-07] MEDS: COLLAGENASE OINT 30 GM TUBE TOP SCH (07:53)
[2016-07-07] MEDS: CHLORHEXIDINE 0.12% (ORAL KIT) 15 ML CUP MT SCH ×2 (08:00→20:00)
[2016-07-07] MEDS: RESP: BUDESONIDE 0.5 MG/2 ML NEB NEB SCH ×2 (08:23→20:14)
[2016-07-07] MEDS: NYSTATIN 100,000 U/GM PWD 15 GM BTL TOPICAL SCH ×2 (09:00→21:29)
[2016-07-07] MEDS: BUMETANIDE 1 MG TAB PO SCH (09:00)
[2016-07-07] MEDS: SODIUM CHLORIDE 0.9% FLUSH 5 ML FLUSH IVF SCH ×2 (09:00→21:00)
[2016-07-07] MEDS: POTASSIUM CHLORIDE 20 MEQ CONTROLLED RELEASE TAB PO SCH ×2 (11:00→21:29)
--- NOTE | 2016-07-07 12:26 | HHI.FPPN ---
Subjective Remarks Patient is improving. According to his nurse, He has been off the vent and also off CPAP for greater than 48 hours. He is resting comfortably with his T piece in place. He understands we are working with case management to get him to a long-term care facility. Denies pain, nausea, vomiting, diarrhea. (Abel Conner MD R2) Objective Vitals Vital Signs Date Time Temp Pulse Resp B/P Pulse Ox O2 Delivery O2 Flow Rate FiO2 07/07/16 10:00 88 07/07/16 08:24 93 T-piece 8.00 70 07/07/16 08:00 93 T-Piece 8.00 70 07/07/16 08:00 98.6 90 24 121/72 93 07/07/16 08:00 88 07/07/16 06:00 88 07/07/16 04:00 93 T-Piece 8.00 70 07/07/16 04:00 85 07/07/16 04:00 98.3 85 24 123/70 93 07/07/16 02:00 83 07/07/16 00:00 98.1 84 24 119/59 91 07/07/16 00:00 84 07/07/16 00:00 91 T-Piece 8.00 70 07/06/16 22:00 83 07/06/16 20:00 97.9 85 22 130/72 92 07/06/16 20:00 92 T-Piece 8.00 70 07/06/16 20:00 85 07/06/16 19:40 92 T-piece 8.00 70 07/06/16 19:00 91 T-Piece 8.00 70 07/06/16 18:00 100 07/06/16 16:00 98.0 89 22 136/78 99 07/06/16 16:00 70 07/06/16 16:00 100 07/06/16 14:00 100 I/O 07/06/16 07/06/16 07/06/16 07/07/16 07/07/16 07/07/16 07:00 15:00 23:00 07:00 15:00 23:00 Intake Total 240 ml 385 ml 352 ml 90 ml Output Total 850 ml 200 ml 300 ml Balance 240 ml -465 ml 152 ml -210 ml Intake Oral 240 ml 380 ml 350 ml 90 ml IV Total 5 ml 2 ml 0 ml Output Urine Total 850 ml 200 ml 300 ml # Voids 1 # Bowel Movements 1 1 0 0 (Abel Conner MD R2) Result Diagram: 07/06/16 0617 07/06/16 1112 Objective Remarks GEN: Morbidly obese male in NAD. DERM: Warm and dry. Right lateral malleous with 1.5 X 1.5 cm area of skin break down. Area in bandage. Numerous skin folds 2/2 habitus. HEENT: Tracheotomy site c/d/i. Poor dentition. CV: Distant heart sounds. RRR. Normal peripheral perfusion. RESP: Transmitted upper respiratory sounds, but otherwise clear to auscultation bilaterally. GI: Abdomen soft, obese, non-tender. +BS. Bruises on lower abdomen. MSK: External rotation of RLE. Patient able to move all his fingers and toes. Patient with intact sensation in all his fingers and toes. NEURO: CN grossly normal. Procedures 04/24- Started ventilation 05/02- Emergency Trach Exchange 06/03- PICC line removed 06/07- Debridement of RUE abscess (Dr. Velazquez), RUE drain placed 06/10- RUE drain removal (Abel Conner MD R2) A/P Assessment and Plan 31y with super morbid obesity with chronic respiratory failure status post tracheostomy 4 years ago. He was admitted 05/13/16 with respiratory failure. Currently he is off mechanical ventilation and off CPAP for greater than 48 hours. Planning on discharging him to a long-term facility with case management assistance. Discharge Planning Likely in the next 1-2 days pending appropriate placement. Case management assisting with discharge needs. (Abel Conner MD R2) Attending Attestation Patient seen and examined. Case reviewed and discussed with the resident team. Agree with plan of care as discussed with me and documented in the resident note. (Asia Conner MD) Problem List: (1) Chronic respiratory failure Status: Acute Plan: Currently off mechanical ventilation. Currently off CPAP Trach collar as tolerated. Out of bed to chair. We do not think he should go back to the vent unless he clinically declines. - Pulmicort BID REYES - Duonebs q2h PRN - Singulair 10mg daily - Symbicort bid (2) Ankle ulcer Status: Acute Plan: Podiatry consult -Offload area of skin breakdown with pillows under the knee. -Culture and sensitivity of the wound -Optifoam gentle AG dressings ordered -Continue bandages -Wound care consult (3) Diarrhea Status: Resolved Plan: - Continue to monitor Impression: Improved. Negative C. diff PCR. Likely secondary to food intolerance or medication side effect. Chronicity unknown. Pt states "always" had, but new ailment to team. (4) Nausea Status: Chronic Plan: Chronic. Ddx: GERD vs psychosomatic vs impaired gastric emptying vs medication side effect. - Zofran 4mg IV q6h PRN nausea - Reglan 10mg ACHS PRN nausea - Protonix 20mg BID REYES - Mg-Al liquid q6h PRN dyspepsia - Ca Carbonate Tums chews 500mg q12h (5) Bacteremia Status: Resolved Plan: Infectious disease no longer following. - Colistin 75mg q8h NEB continue - Acetaminophen 325mg PRN fever Abx History Zosyn 4.5gm IV q6h (04/24 - 04/29) Levaquin 750mg IV q24h (04/24-04/30) Zerbaxa 1.5 g IV q8h (04/29 - 05/07) Vancomycin IV (04/24 - 05/06) Ceftriaxone IV (05/07 - 05/25) Linezolid 600 mg PO BID (05/06 - 05/13) Zosyn 3.375 q6h (06/04- 06/05) - Vancomycin IV daily goal trough 15-20, (06/03 -- 06/18) - Zerbaxa IV q8h (06/05-- 06/18) RESOLVED CONDITIONS THIS HOSPITAL VISIT - Cellulitis of Chest Wall: completed course linezolid (05/06-05/13), per ID recs - Yeast UTI: completed course Diflucan. UCx 05/01: Dionne albicans. Repeat UCx 05/05: Proteus Mirabilis - HCAP: s/p multiple abx (6) Hematoma Status: Acute Plan: - Daily dressing changes with xeroform and primapore - Daily PT/OT, as tolerated. PT targeting RUE weakness. Initial Impression: Hematoma contributing to RUE weakness x4 weeks. S/p I&D by Dr. Velazquez (06/07/16). Small hematoma found during procedure inconsistent with 6cm x 6cm x 8cm abscess suggested by MRI brachial plexus. Ddx for RUE weakness: hematoma vs C6/C7 neuropathy. L hemispheric pathology, and seizure ruled out ( see below). Unable to tolerate EMG. Imaging: - US negative for DVT (05/28) - MRI brain (04/28) no acute intracranial process - MRI C-spine (05/29): grossly wnl - EEG (05/29): diffuse mild encephalopathy vs normal Stage 2 sleep - MRI brachial plexus (06/03): "Complex multiloculated soft tissue and cystic mass 5.5 x 6 x 7.8 cm involving subscapularis muscle along anterior R scapula - Pathology report (06/07): fragments of blood clot admixed with few minute fragments of adipose and skeletal muscle tissue (7) Paroxysmal a-fib Status: Chronic Plan: -Sinus rhyth, regular rate at this time - Cardizem/diltiazem 90mg PO qid - Xarelto 20mg PO qd, per critical care (8) Hypertension Status: Chronic Plan: - Bumetanide 1mg PO qd - Cardiazem 90mg QID - Labetalol 10mg IV PRN SBP 160+ (9) CHF (congestive heart failure) Status: Chronic Plan: Suspected HF with poor EF, though unable to confirm via ECHO (04/25) due to poor imaging. BNP elevated on admission, downtrended. - Bumex 1mg PO daily + 40 KCl BID - 1.5L fluid restriction, monitor I/Os, monitor renal function, peripheral edema (10) Stable medical conditions Status: Chronic Plan: NORMOCYTIC ANEMIA - Ferrous sulfate 325mg PO daily - Multivitamin 1 tab PO daily HYPERLIPIDEMIA -Atorvastatin 10mg daily - Tricor 48mg daily MDD: Pt reports stable mood; some anhedonia suspected. Previously, refusing meals, shower, PT - Sertraline 100 mg PO daily - Seroquel 100mg HS INSOMNIA -Zolpidem 5mg HS PRN GOUT -Allopurinol 300mg daily HYPOTHYROIDISM 08/2015- TSH low, free T4 grossly wnl (05/27/16) -Synthroid 50 mcg PO daily FUNGAL INFECTION -Nystatin powder and miconazole creme to skin folds MORBID OBESITY WITH BMI 60-69 -see above plan for mechanical ventilation PAIN - Percocet 10-325 mg PO q6h - Morphine 4mg IVP q6h (11) Nutrition, metabolism, and development symptoms Status: Acute Plan: FEN: Fluids: PO (Limited 1.5L/day) Electrolytes: +40KCl BID. Chronically hypokalemic, replete per protocol Nutrition: 2Kcal heart healthy diet. Transitioned to oral feeds (05/29). Wt: Admission: 480 lbs PPX GI ppx: Protonix 20mg BID DVT ppx: Lovenox 150mg BID Pain: Oxycodone 7.5/325 q4h PRN Bowel: Senna 1 tab HS PRN dw: Dr. Conner (12) On mechanically assisted ventilation Status: Resolved Plan: Currently off mechanical ventilation. Currently off CPAP Trach collar as tolerated. Out of bed to chair. We do not think he should go back to the vent unless he clinically declines. - Pulmicort BID REYES - Duonebs q2h PRN - Singulair 10mg daily - Symbicort bid (Abel Conner MD R2) Problem Qualifiers (1) Chronic respiratory failure: Qualified Code: J96.10 - Chronic respiratory failure, unspecified whether with hypoxia or hypercapnia (2) Ankle ulcer: Qualified Code: L97.311 - Ankle ulcer, right, limited to breakdown of skin (3) Hypertension: Qualified Code: I10 - Essential hypertension (4) CHF (congestive heart failure): Qualified Code: I50.9 - Acute on chronic congestive heart failure, unspecified congestive heart failure type Abel Conner MD R2 Jul 07, 2016 12:26 Asia Conner MD Jul 07, 2016 13:45
--- NOTE | 2016-07-07 12:35 | HHI.FPPN ---
Addendum to progress note ADDENDUM Reason for addendum: Additonal documentation Additional information Medicine Service Handoff Note 31y male with super morbid obesity hospitalized 04/24/16 for treatment of acute on chronic respiratory failure after tracheostomy leak. After emergency tracheostomy replacement 05/02, patient had respiratory decompensation, requiring placement on a ventilator, as well as treatment for HCAP and yeast UTI. Patient has been slowly weaned to BiPAP via critical care but progress off vent has plateaued. Patient also presents with bacteremia, MDRO UTI, cellulitis, weakness RUE secondary to hematoma, chronic nausea, Afib, CHF and generalized weakness. Proteus and enterococcus Bacteremia, secondary to PICC infection, has been successfully treated with vancomycin and Zerbaxa, to end 06/18/16 per ID. [place] catheter likely colonized with MDRO at baseline. Hematoma R shoulder nonoperative, PT working overall strength. Chronic nausea intermittent, likely psychosomatic vs GERD. Xarelto for Afib. Bumex for CHF. OT for generalized weakness. As of 07/07/16, he has been off mechanical ventilation and off CPAP for greater than 48 hours. It has been very difficult to get the patient off of mechanical ventilation as he requests to be put back on mechanical ventilation. According to critical care, we do not think he should go back on mechanical ventilation unless he clinically declines. Case management is attempting to find placement for the patient. The patient came from [facility]. Currently , case management is looking into [facility] to see if they will accept the patient and his termite helper respiratory needs. Patient also has a right ankle ulcer for which podiatry was consulted on 07/05. Podiatry recommends offloading the area and has ordered wound care instructions. Abel Conner MD R2 Jul 07, 2016 12:34
[2016-07-07] MEDS: RESP: ALBUTEROL 2.5 MG/IPRATROPIUM 0.5 MG NEB (PRN) NEB (20:14)
[2016-07-07] MEDS: QUEtiapine FUMARATE 100 MG TAB PO SCH (21:28)
[2016-07-07] MEDS: ZOLPIDEM TARTRATE 10 MG TAB PO PRN (21:28)
--- NOTE | 2016-07-07 21:58 | HHI.CCPN ---
Subjective Remarks/Hospital Course 31 year old morbidly obese (BMI 68) male with chronic respiratory failure s/p tracheostomy 4 years ago, atrial fibrillation and pulmonary embolism on Xarelto , COPD, CHF and h/o HTN. He presented from [facility] with low oxygen saturation apparently his oxygen saturation was 82% on RA. He was placed back on 6L of oxygen via his trach mask and given a breathing treatment, initially improved however he started drifting back to low 80s again. Chest x-ray showed bibasilar infiltrates and pulmonary edema. Patient was admitted to the [facility] and was started on IV steroids IV vancomycin and Zosyn and Levaquin for healthcare associated pneumonia. After starting ACV, patient was more awake but there was a significant amount of air leak around his tracheostomy. Patient has had a Shiley 6.0 Proximal XLT, but the company pilot balloon had been cut off. 05/02 the patient became acutely hypoxemic with a large cuff leak, underwent emergency trach exchange at bedside by Dr. Macias. FiO2 65% PEEP 14 05/13 Patient is on ventilator via trach, on Fentanyl infusion however he is awake and alert. On PRVC with FIO2 40%. Afebrile. 05/14 No acute events overnight. Tmax 99.8. Patient is awake, alert on ventilator via trach still requiring increase O2. On PRVC with PEEP: 10 and FIO2 70%. 05/15 Pt acutely desaturated after he was found. Saturation down to 70% on 100 % oxygen. Bag and mask ventilation carried out, with eventual improvement on oxygen saturation to 85%. Patient was placed on PC/AC mode of ventilation, with PEEP of 15 and instructed to pressure of 30. Eventually oxygen saturation improved to 95%. Lasix him today as the chest x-ray from today shows increasing bilateral infiltrate and pulmonary edema. Sputum culture will be sent 05/16 Patient is on Fentanyl and Diprivan infusion but awake and alert. Afebrile. On PC/AC with PEEP:15, IP: 22, IT:1.3 and FIO2 50% 05/17 Patient is off Diprivan and remains on Fentanyl infusion for sedation. On PC/AC with PEEP: down 10 and FIO2 40%. Afebrile. 05/18 Patient remains on ventilator via trach on PC/AC with PEEP:12, FIO2 40%, IP:22, IT:1.0. On Fentanyl infusion 05/19 No acute events overnight. On Fentanyl infusion but awake and alert. Afebrile. 05/20 Tolerating C Pap 17/12 FIO2 40, sats 98%. RSBI in 20s, appears can be weaned further. Afebrile. Speech therapy evaluated and ok for regular diet. Starting with full liquid. 05/21 Will wean PSV to 15/10. Tolerated full liquids, will advance to regular diet per speech recs. 05/22 On PSV 15/10 FIO2 40 with sats 92%. Smiling today. Glad to be eating regular food again. 05/23 No acute events overnight. Remains on CPAP with PS 15, PEEP:10 and FIO2 40 %. Afebrile. Off Fentanyl drip. Afebrile. Awake and alert. 05/24 Patient is on CPAP 06/06 with 40% FIO2. Afebrile. Awake and alert, on no sedation. 05/25 No acute events overnight. Patient was placed back on PC/AC overnight. Tolerated CPAP trials during day yesterday. Awake and alert. On no drips. Afebrile. 05/26 Afebrile. Tmax 98.6. Today the patient complained of nausea requiring Zofran. The patient has a lack of an appetite, with noted hypoglycemia early this a.m. blood glucose level 69. Patient tolerating CPAP well greater than 12 hours in the last 24 hours. 05/27 The patient tolerated CPAP for over 36 hours, O2 sat a knee 94% on FIO2 40 %. The patient had an increase in appetite. The patient continues on full liquid diet. 05/28 The patient declined physical therapy treatment, yesterday and also overnight declined to be moved by nursing staff. The patient refused dinner last evening, of note patient was reevaluated by speech therapy and can consume a heart healthy diet with thin liquids. The patient continues on physical therapy for strengthening exercises of all extremities specifically noted right upper extremity continues to be weak with gross fibrillations noted in hand and forearm. 05/29 Afebrile. No change in right upper extremity weakness. The patient was seen by neurology yesterday plan for MRI today if possible in hospital MRI, and EMG studies. No complaints overnight. Patient continues to refuse to have activities performed, movement in bed. The patient appears to be depressed, psychiatry consulted. 05/30: Patient alert awake on CPAP. Following commands. Psych agrees the patient is depressed. MRI brain no acute findings 05/31: Awake alert. on PS 15/8. EMG could not be completed due to patient becoming anxious. Otherwise no acute events reported overnight 06/01: Remains PS from 11/02. Right upper extremity weakness persists. EMG to be repeated on Friday. Will need MRI of the brachial plexus. Chest x-ray is unchanged 06/02: States that "not feeling well". Febrile to 101.5. White count increasing but still within the normal range. Pancultured. We'll request ID reevaluation. 06/03: Resting in bed on C Pap/pressure support via tracheostomy. One out of 2 sets of blood cultures sent on 06/02 positive for gram-positive cocci. 06/04: Resting in bed on mechanical ventilation via tracheostomy. Afebrile overnight. MRI brachial plexus (06/03) revealed a collection near the right subscapularis muscle, possibly an abscess. Discussed with ID, orthopedics Dr. Velazquez consulted. I discussed the case with Dr. Velazquez this morning who feels this is probably an abscess however would be difficult to access surgically and he plans to set up percutaneous drainage by interventional radiology. 06/05: Resting in bed on mechanical ventilation via tracheostomy. Remains afebrile. Reportedly IR cannot do percutaneous drainage of collection involving right subscapularis muscle. 06/06: Resting in bed on mechanical ventilation via tracheostomy. Can actually speak around the trach. Remains afebrile. Dr. Velazquez evaluated patient and is scheduling surgery for drainage of fluid collection involving the right subscapularis muscle. 06/07: Resting in bed on mechanical ventilation via tracheostomy. Awaiting surgery today. 06/08: Status post I&D of collection near right shoulder/subscapularis on 06/[address] Velazquez. This morning patient is awake and alert complained of some pain at the surgical site. Remains on mechanical ventilation on C Pap/pressure support. 06/09: Sleeping, arousable. On mechanical ventilation with C Pap/pressure support overnight. Labs pending 06/10 No acute events overnight. On CPAP with PS 12, PEEP: 8, FIO2 40%. Afebrile. 06/11 Patient remains on CPAP with PS 10, PEEP: 8 and FIO2 40%. Afebrile. 06/12: No acute events overnight. Remains on CPAP 10/5. No specific complaints 06/13: Tolerating C Pap 10 over 5. Awake and alert following commands. Hemoglobin dropped from 8.6-7.1, no obvious bleeding. Sodium 140-149. Will give 1 unit of PRBC with 1 mg IV Bumex 06/14 No acute events overnight. On CPAP with PS 10, PEEP:5 and FIO2 50%. Afebrile. 06/15 No acute events overnight. Remains on CPAP 10/5 with 40% FIO2. Afebrile. 06/16 Patient remains on ventilator via trach on CPAP with PS 10, PEEP:5 and FIO2 40%. 06/17: Resting in bed on mechanical ventilation via tracheostomy. Feeling nauseous. 06/18: OOB in reclining chair. Reporting low back and leg pain that is positional. Continued nausea, denies emesis. CPAP w PS 5 FIO2 40%. Will attempt Tpiece trial today. Discontinue Vanc + Zerbaxa today per ID 06/19: No acute events overnight. Afebrile. HTN to 160/80. CPAP with PS 10. PEEP 10 FIO2 45. Failed Tpiece trial yesterday- desaturated to mid 70s. Denies SOB/CP. Nausea is less than before. Bed is broken and patient would like the mattress to "rotate". Per nursing, they are working to fix it. 06/20: No acute events overnight. Afebrile. HTN to 145/70. CPAP with PEEP 10 FIO2 45, with saturation 93=94%. Pt has no acute complaints. Denies SOB/CP/ Nausea. Didn't know why he threw up during PT yesterday. Denies pain. Still having diarrhea (chronic years in duration issue). Was eating Pringles in bed. Per nursing, does not eat hospital food- waits for mother to bring him food. He was counseled to eat the hospital food which is healthier for him and that he needs to stop eating food brought in by his mother. 06/21: Remains on mechanical ventilation, CPAP with pressure support. 06/22: On mechanical ventilation on C Pap with pressure support. Denies any nausea or abdominal pain. Appears comfortable. 06/23: Resting in bed on mechanical ventilation with C Pap/pressure support +10/ +5. Denies any shortness of breath denies any abdominal pain or nausea currently. 06/24: Refusing to get OOB with physical therapy today. I had a long discussion with the patient about the fact that he has been inpatient for months now and he is severely deconditioned. He must get out of bed with PT to clinically improve, and deconditioning is a major factor in his chronic respiratory failure. He denies chest pain or SOB. does endorse some nausea today. 06/25: tolerated 4 hours OOB yesterday with 4 hours of trach collar. plan to go 6 hours today. 06/26: tolerated OOB to chair 5 hours yesterday but only 1.5hr of trach collar due to hypoxia. 06/27: tolerated OOB to chair for 6 hours yesterday and almost 5 hours of trach collar. daily, he continues to be very resistant to participating in PT and getting OOB. He again asks if he can lay in bed today. 06/28: tolerated 6 hours of trach collar yesterday. OOB for almost 8 hours. 06/29: continues to tolerate daily trach collar trials. OOB for 8 hours again yesterday. 06/30: tolerated 8 hours of trach collar yesterday. OOB for 7 hours. can do trach collar as tolerated. he continues to make attempts to refuse physical therapy and does not wish to participate in his care. 07/01: no changes. did well with 8 hours of trach collar and 8-9 hours of OOB. will attempt to stand and possibly walk in place today. this certainly is a large undertaking given how deconditioned he is, but I think the mobilization will help to continue our rehabilitation efforts. will be taxing on medical staff to physically assist him. This is likely something we can only do on a weekly basis. 07/02: took 3 steps yesterday (first time out of bed in almost 3 months). otherwise, tolerating daily t-piece with nightly CPAP. plan for OOB and steps again today. trach collar as tolerated. diamox x 3 doses for worsening contraction alkalosis. net -900cc/24h. 07/03: OOB and a few steps again yesterday. trying to push him to longer t-piece intervals with fewer rests on CPAP. OOB all day again today. net euvolemic yesterday. lab holiday today. 07/04: to chair today. trach collar as tolerated. I really think he could go most of the night if not all night on trach collar, but he keeps insisting on going back on the vent to rest. brought to my attention by family practice team for ankle skin breakdown. agree with podiatry consult. Subjective: 07/05: OOB to chair again today. tolerated trach collar yesterday. CPAP at night. keeps asking to go back on rate on vent overnight. I do not think medically he needs this. podiatry saw patient and recommended dressing and elevation for foot. 07/06: on trach collar all night, not on the vent. this is a huge improvement. K 6.0 on bmp this AM, but Cr at baseline. will recheck. 07/07: remains off the vent on trach collar. weaning fio2. OOB again. recheck K yesterday 6.0--> 3.7, so likely spurious lab. I think tomorrow if he remains on trach collar, he is safe to go back to his facility. Objective Vital Signs Date Time Temp Pulse Resp B/P Pulse Ox O2 Delivery O2 Flow Rate FiO2 07/07/16 20:11 92 T-piece 8.00 70 07/07/16 20:00 97 07/07/16 18:49 22 07/07/16 16:00 98.3 115/67 Intake and Output 07/06/16 07/06/16 07/07/16 08:00 16:00 00:00 Intake Total 240 ml 385 ml 352 ml Output Total 850 ml 200 ml Balance 240 ml -465 ml 152 ml Result Diagram: 07/06/16 0617 07/06/16 1112 Other Results Microbiology Date/Time Procedure Status Source Growth 07/05/16 17:00 Gram Stain - Final Complete Wound Leg 07/05/16 17:00 Wound Culture - Final Complete Providencia [facility] MRI 06/20/16: No official reading. Preliminary reading suggests periventricular white matter changes at basal ganglia and no evidence ischemia CXR 06/17/16: Poor penetration. Rotated image. Unable to visualize lung bases. Possible atelectasis vs infiltrate R worse than L. Objective Remarks GEN: 31yo on trach collar, awakens and follows commands. Super morbidly obese. SKIN: Warm and dry. HEAD: Normocephalic. EYES: No scleral icterus. No injection or drainage. NECK: obese with large neck circumference, trachea midline. Shiley 6.0 Proximal XLT, (new trach placed 05/02/16) CV: normal rate, regular rhythm. RESP: On mechanical ventilation, Breath sounds equal bilaterally. Distant secondary to habitus. GI: Abdomen soft, obese, non-tender, nondistended. Multiple noted areas of ecchymotic bruising secondary to subcutaneous injections. MSK: No cyanosis, or edema. Pedal edema. Neuro: Moves all extremities with focal deficit right upper extremity. RASS 0. A/P Assessment and Plan ASSESSMENT Acute hypercapnic and hypoxemic respiratory failure (Shiley 6.0 Proximal XLT) CO2 narcosis (resolved) Acute worsening of hypoxia due to lung de-recruitment (05/15/16, resolved) Healthcare associated pneumonia MDR Pseudomonas Enterococcal bacteremia Pseudomonas bacteremia Collection near right subscapularis muscle(On MRI 06/03) - hematoma status post I &D on 06/07 Sepsis CHF exacerbation Tracheostomy company pilot balloon damage -status post exchange with new Shiley 6.0 Proximal XLT 05/02/16 Probable right brachial plexus injury COPD/obesity hypoventilation syndrome Morbid Obesity BMI 60-69 History of pulmonary embolism 4 years ago Chronic atrial fibrillation Anxiety CHF (Echo 2013 EF 40-45%; ECHO 08/2015 showing a grossly normal systolic function) Hypertension Hypothyroidism Depression PLAN NEURO: CO2 narcosis - resolved Critical care polyneuropathy Right upper extremity weakness 05/21-possibly secondary to nerve compression, C6 , C7 (brachial plexus) Pain Anxiety Depression -EMG/ NCV could not be completed on 05/[address] Castillo -Clinically has right brachial plexus involvement. MRI of brachial plexus on 06/03 revealed collection involving right subscapularis muscle- s/p I & D on 06/[address] Velazquez. -Neurology Dr. Cheek-MRI brain, C spine no acute findings. -Venous Doppler RUE 05/28-negative for DVT -Continued PT daily, with strengthening exercise - I discussed again with patient that participating in PT is necessary to his medical care. -Continue Seroquel 100mg HS. Continue Zoloft 100mg daily -Decreased pain reg: Tylenol 625mg pain 1-6, Percocet 10/325 pain 7-10 RESP: Acute hypercapnic and hypoxemic respiratory failure Acute lung derecruitment 05/15 with hypoxia Healthcare associated pneumonia Tracheostomy company pilot balloon damage (Shiley 6.0 Proximal XLT) s/p new trach placement 05/02 Chronic Respiratory Failure s/p Tracheostomy 4 years ago COPD/obesity hypoventilation syndrome History of pulmonary embolism 4 years ago Leukocytosis-resolved Pulmonary edema - s/p Bronchoscopy 05/11 -follow up on BAL results negative - Pulm toilet, trach care - Continue with vent support keep sat >88% on CPAP 10, 45% FIO2. Attempt TP/TC as tolerated. Will try again today. I think there is a strong volitional component to his failing t-piece because he states he feels tired before objective evidence of increased work of breathing. - Continue DuoNeb q6h REYES + q2h PRN, Pulmicort BID, Singulair 10mg daily - trach collar as tolerated. OOB to chair. I do not think he should go back on the vent unless he clinically declines. CV: CHF exacerbation Pulmonary edema Paroxysmal atrial fibrillation (chronic) Hyperlipidemia -Monitor HR and BP keep MAP>65mmHg -Cardizem 90mg QID, Bumex 1mg daily PO, Lipitor 10g daily, TriCor 40mg by mouth daily -continue home Xarelto. GI: Super morbid obesity with BMI of 64 Nausea GERD -Regular diet, thin liquids per speech recs -Liver US 06/03: Fatty liver, sludge in gall bladder, splenomegaly, no mechanical obstruction of bile duct noted. -Protonix 20mg BID. Zofran prn for nausea. -Multivitamin daily -Bringing in food, per nurses. Not adherent to hospital diet. Consider call to family to restrict them from bringing food. FEN/RENAL: Hypokalemia Metabolic alkalosis - Monitor renal function , I/O, electrolytes replacement per protocol. - Bumex 1mg PO daily, KCL 40meq Q12 - Willard is out. we are using a rectal bag to collect urine and keep sacral area clean. no indication for willard catheter. ID: Healthcare associated pneumonia Sepsis New fever MDRO Cellulitis right arm-resolved Leukocytosis-resolved Enterococcal faecalis bacteremia, Pseudomonas bacteremia (06/02, 06/03) -Wound culture Pseudomonas MDR 04/27 -Sputum culture-Pseudomonas MDR- 04/27 -Urine cx: Proteus Mirabilis 05/05 -Sputum cx: Providencia 05/05 -Bronchoscopy and re-culture 05/10- NG -Wound cx: Proteus, Pseudomonas, Group D Enterococcus- 05/13 -Sputum cx- NG- 05/15 -Blood culture: aerobic and anaerobic bottles - enterococcus faecalis, pseudomonas aeruginosa 06/02, 06/03 -Urine culture: pseudomonas aeruginosa- 06/02 -Wound culture: pseudomonas aeruginosa- 06/02 -Sputum culture: Pseudomonas- 06/02 -Dr. Velazquez performed drainage of collection surgically on 06/07- likely hematoma -Stopped IV Vanc and Zerbaxa on 06/18. (MDR pseudomonas in blood cultures) - colistin nebs stopped 06/27 HEME: History of PE on chronic anticoagulation with Xarelto Iron deficiency anemia and anemia of critical illness. -Monitor CBC, transfused 1U PRBC 06/13 -Xarelto for PE 4 yrs ago. -Continue Xarelto. -Ferrous sulfate 300 mg/q day ENDO: Hypothyroidism -On SSI (Low scale) -Continue levothyroxine 50 mcg po daily -Free T4 1.52 MSK: --agree with podiatry consult. PROPH: -Lower extremity SCDs (L leg only, R ankle cellulitis), continue home xarelto GI prophylaxis- Protonix 20mg BID LINES: - PICC line RUE- No DVT on US 05/02 - removed on 06/03. - Willard catheter removed 07/05. we are using rectal bag to collect urine in an effort to keep sacral and groin area clean and free of skin breakdown. Out of bed with assistance. PT out of bed with vent. OT. Dispo: Once we can get him off the ventilator, he can go back to his rehab facility. Until then, he remains in the ICU. q48h labs. Fletcher Brown MD Jul 07, 2016 21:57
[2016-07-08] VITALS (14 sets, daily range): BP systolic 113–136; BP diastolic 65–96; PULSE 62–92; RESP 21–28; TEMP 98.3–98.8; O2SAT 90–97
[2016-07-08 05:43] LABS: MEAN CELL VOLUME 85.2 FL (80.0-100.0); MEAN CORPUSCULAR HEMOGLOBIN 25.9 PG (27.0-34.0); MEAN CORPUSCULAR HGB CONC 30.4 % (32.0-36.0); PLATELET COUNT 265 TH/MM3 (150-450); RED BLOOD COUNT 4.11 MIL/MM3 (4.50-5.90); RED CELL DISTRIBUTION WIDTH 23.3 % (11.6-17.2); REVIEW FLAG FINAL; WHITE BLOOD COUNT 13.2 TH/MM3 (4.0-11.0)
[2016-07-08] MEDS: LEVOTHYROXINE SODIUM 50 MCG TAB PO SCH (05:51)
[2016-07-08] MEDS: INSULIN NovoLIN REGULAR SUPPLEMENTAL SCALE SQ SCH (05:53)
[2016-07-08] MEDS: RESP: BUDESONIDE 0.5 MG/2 ML NEB NEB SCH ×2 (07:46→20:00)
[2016-07-08] MEDS: CHLORHEXIDINE 0.12% (ORAL KIT) 15 ML CUP MT SCH ×2 (08:17→20:00)
[2016-07-08] MEDS: SODIUM CHLORIDE 0.9% FLUSH 5 ML FLUSH IVF SCH ×2 (08:18→20:35)
[2016-07-08] MEDS: NYSTATIN 100,000 U/GM PWD 15 GM BTL TOPICAL SCH ×2 (08:18→20:51)
[2016-07-08] MEDS: COLLAGENASE OINT 30 GM TUBE TOP SCH (08:18)
[2016-07-08] MEDS: MULTIVITAMIN TAB PO SCH (08:19)
[2016-07-08] MEDS: FENOFIBRATE 48 MG TAB PO SCH (08:19)
[2016-07-08] MEDS: FERROUS SULFATE 325 MG (65 MG ELEMENTAL IRON) TAB PO SCH (08:19)
[2016-07-08] MEDS: ATORVASTATIN 10 MG TAB PO SCH (08:20)
[2016-07-08] MEDS: MICONAZOLE NITRATE 2% CREAM 15 GM TOP SCH ×2 (08:20→20:51)
[2016-07-08] MEDS: SERTRALINE HCL 100 MG TAB PO SCH (08:20)
[2016-07-08] MEDS: ALLOPURINOL 300 MG TAB PO SCH (08:20)
[2016-07-08] MEDS: BUMETANIDE 1 MG TAB PO SCH (08:20)
[2016-07-08] MEDS: DILTIAZEM HCL 90 MG TAB PO SCH ×4 (08:20→20:35)
[2016-07-08] MEDS: RIVAROXABAN 20 MG TAB PO SCH (08:20)
[2016-07-08] MEDS: PANTOPRAZOLE SOD 20 MG DELAYED RELEASE TAB PO SCH ×2 (08:20→20:35)
[2016-07-08] MEDS: MONTELUKAST SODIUM 10 MG TAB PO SCH (08:34)
--- NOTE | 2016-07-08 10:35 | HHI.FPPN ---
Subjective Remarks No acute issues overnight. Vitals are stable, patient remains afebrile. He is tolerating O2 delivery via T-piece. He is saturating 90-97% on 8L O2. Intake 1180 mL, output 1650 mL, balance -470 mL with 3 bowel movements in the past 24 hours. He states that he feels tired today, but denies any chest pain, shortness of breath, fever, chills, nausea or vomiting. (Allegra Ko MD R2) Objective Vitals Vital Signs Date Time Temp Pulse Resp B/P Pulse Ox O2 Delivery O2 Flow Rate FiO2 07/08/16 10:00 90 07/08/16 08:00 90 T-Piece 8.00 70 07/08/16 08:00 98.6 91 28 119/70 90 07/08/16 08:00 83 07/08/16 07:46 97 T-piece 6.00 70 07/08/16 06:00 87 07/08/16 04:00 87 07/08/16 04:00 98.5 87 25 116/65 92 07/08/16 04:00 92 T-Piece 8.00 70 07/08/16 02:00 89 07/08/16 00:00 92 07/08/16 00:00 94 T-Piece 8.00 70 07/08/16 00:00 98.3 92 21 113/65 94 07/07/16 22:00 90 07/07/16 20:11 92 T-piece 8.00 70 07/07/16 20:00 89 T-Piece 8.00 70 07/07/16 20:00 98.1 97 28 147/84 89 07/07/16 20:00 97 07/07/16 18:49 22 07/07/16 18:00 88 07/07/16 16:00 88 07/07/16 16:00 94 T-Piece 8.00 70 07/07/16 16:00 98.3 89 24 115/67 93 07/07/16 14:00 88 07/07/16 12:00 88 07/07/16 12:00 98.0 89 24 110/59 93 07/07/16 12:00 93 T-Piece 8.00 70 I/O 07/07/16 07/07/16 07/07/16 07/08/16 07/08/1607/08/17 07:00 15:00 23:00 07:00 15:00 23:00 Intake Total 90 ml 480 ml 350 ml 350 ml Output Total 300 ml 450 ml 550 ml 650 ml Balance -210 ml 30 ml -200 ml -300 ml Intake Oral 90 ml 480 ml 350 ml 350 ml IV Total 0 ml 0 ml 0 ml Output Urine Total 300 ml 450 ml 550 ml 650 ml # Bowel Movements 0 1 1 1 (Allegra Ko MD R2) Result Diagram: 07/08/16 0426 07/06/16 1112 Imaging Last Impressions Chest X-Ray 06/17/16 0600 Signed Impressions: Service Date/Time: Friday, June 17, 2016 04:38 - CONCLUSION: No significant change. Garcia Rmairez MD Liver Ultrasound 06/03/16 0000 Signed Impressions: Service Date/Time: Friday, June 03, 2016 08:10 - CONCLUSION: 1. There is some sludge in the gallbladder. This can be seen with chronic gallbladder disease. 2. Fatty infiltration of the liver which appears to be enlarged. 3. No mechanical biliary tract obstruction. 4. Splenomegaly. Lázaro Frankel MD Brachial Plexus MRI 06/03/16 0000 Signed Impressions: Service Date/Time: Friday, June 03, 2016 12:42 - CONCLUSION: There is a complex multiloculated soft tissue and cystic mass measuring approximately 5.5 x 6.0 x 7.8 cm involving the subscapularis muscle along the anterior right scapula. The differential considerations include neoplastic disease, infection and hematoma. Recommend a CT scan of the right shoulder to pre-plan for CT-guided aspiration/biopsy of this abnormality. Lázaro Frankel MD Cervical Spine MRI 05/29/16 0000 Signed Impressions: Service Date/Time: Sunday, May 29, 2016 13:51 - CONCLUSION: Limited study but appears normal. Vishnu Woodward MD Brain MRI 05/29/16 0000 Signed Impressions: Service Date/Time: Sunday, May 29, 2016 13:51 - CONCLUSION: 1. Focal chronic ischemic change in the high right frontal parietal convexity stable from previous CT scan. 2. No acute intracranial abnormality. 3. Minimal nonspecific white matter changes. Vishnu Woodward MD Upper Extremity Ultrasound 05/28/16 0000 Signed Impressions: Service Date/Time: Saturday, May 28, 2016 10:16 - CONCLUSION: 1. Negative for deep venous thrombosis. Venous line noted in cephalic, subclavian and internal jugular vein. Horacio Gupta MD Abdomen X-Ray 04/29/16 0000 Signed Impressions: Service Date/Time: Friday, April 29, 2016 07:12 - CONCLUSION: Suspect Dobbhoff tube in the distal stomach. Garcia Lujan MD Objective Remarks GEN: Morbidly obese male in NAD. DERM: Warm and dry. Some dry, flaking skin on chest wall. Right lateral malleous with 1.5 X 1.5 cm area of skin break down. Area in bandage. Numerous skin folds 2/2 habitus. HEENT: Tracheotomy site c/d/i. Poor dentition. CV: Distant heart sounds. RRR. Normal peripheral perfusion. RESP: Transmitted upper respiratory sounds, but otherwise clear to auscultation bilaterally. GI: Abdomen soft, obese, non-tender. +BS. Bruises on lower abdomen. MSK: External rotation of RLE. Patient able to move all his fingers and toes. Patient with intact sensation in all his fingers and toes. NEURO: CN grossly normal. Procedures 04/24- Started ventilation 05/02- Emergency Trach Exchange 06/03- PICC line removed 06/07- Debridement of RUE abscess (Dr. Velazquez), RUE drain placed 06/10- RUE drain removal (Allegra Ko MD R2) A/P Assessment and Plan 31yo male with super morbid obesity with chronic respiratory failure status post tracheostomy 4 years ago. He was admitted 05/13/16 with respiratory failure. Currently he is off mechanical ventilation and off CPAP for >48 hours. Planning on discharging him to a long-term facility with case management assistance. Discharge Planning Likely today or in the next 1-2 days pending appropriate placement. Case management assisting with discharge needs. (Allegra Ko MD R2) Attending Attestation Patient seen and examined. Case reviewed and discussed with the resident team. Agree with plan of care as discussed with me and documented in the resident note. (Asia Conner MD) Problem List: (1) Chronic respiratory failure Status: Acute Plan: Currently off mechanical ventilation. Currently off CPAP Trach collar as tolerated. Out of bed to chair. We do not think he should go back to the vent unless he clinically declines. - Pulmicort BID REYES - Duonebs q2h PRN - Singulair 10mg daily - Symbicort bid (2) Ankle ulcer Status: Acute Plan: Podiatry consult -Offload area of skin breakdown with pillows under the knee. -Culture and sensitivity of the wound growing providencia stuartii -Optifoam gentle AG dressings ordered -Continue bandages -Wound care consult (3) Nausea Status: Chronic Plan: Chronic. Ddx: GERD vs psychosomatic vs impaired gastric emptying vs medication side effect. - Zofran 4mg IV q6h PRN nausea - Reglan 10mg ACHS PRN nausea - Protonix 20mg BID REYES - Mg-Al liquid q6h PRN dyspepsia - Ca Carbonate Tums chews 500mg q12h (4) Bacteremia Status: Resolved Plan: Infectious disease no longer following. - Colistin 75mg q8h NEB continue - Acetaminophen 325mg PRN fever Abx History Zosyn 4.5gm IV q6h (04/24 - 04/29) Levaquin 750mg IV q24h (04/24-04/30) Zerbaxa 1.5 g IV q8h (04/29 - 05/07) Vancomycin IV (04/24 - 05/06) Ceftriaxone IV (05/07 - 05/25) Linezolid 600 mg PO BID (05/06 - 05/13) Zosyn 3.375 q6h (06/04- 06/05) - Vancomycin IV daily goal trough 15-20, (06/03 -- 06/18) - Zerbaxa IV q8h (06/05-- 06/18) RESOLVED CONDITIONS THIS HOSPITAL VISIT - Cellulitis of Chest Wall: completed course linezolid (05/06-05/13), per ID recs - Yeast UTI: completed course Diflucan. UCx 05/01: Dionne albicans. Repeat UCx 05/05: Proteus Mirabilis - HCAP: s/p multiple abx (5) Hematoma Status: Acute Plan: - Daily dressing changes with xeroform and primapore - Daily PT/OT, as tolerated. PT targeting RUE weakness. Initial Impression: Hematoma contributing to RUE weakness x4 weeks. S/p I&D by Dr. Velazquez (06/07/16). Small hematoma found during procedure inconsistent with 6cm x 6cm x 8cm abscess suggested by MRI brachial plexus. Ddx for RUE weakness: hematoma vs C6/C7 neuropathy. L hemispheric pathology, and seizure ruled out ( see below). Unable to tolerate EMG. Imaging: - US negative for DVT (05/28) - MRI brain (04/28) no acute intracranial process - MRI C-spine (05/29): grossly wnl - EEG (05/29): diffuse mild encephalopathy vs normal Stage 2 sleep - MRI brachial plexus (06/03): "Complex multiloculated soft tissue and cystic mass 5.5 x 6 x 7.8 cm involving subscapularis muscle along anterior R scapula - Pathology report (06/07): fragments of blood clot admixed with few minute fragments of adipose and skeletal muscle tissue (6) Paroxysmal a-fib Status: Chronic Plan: -Sinus rhythm, regular rate at this time - Cardizem/diltiazem 90mg PO qid - Xarelto 20mg PO qd, per critical care (7) Hypertension Status: Chronic Plan: - Bumetanide 1mg PO qd - Cardiazem 90mg QID - Labetalol 10mg IV PRN SBP 160+ (8) CHF (congestive heart failure) Status: Chronic Plan: Suspected HF with poor EF, though unable to confirm via ECHO (04/25) due to poor imaging. BNP elevated on admission, downtrended. - Bumex 1mg PO daily + 40 KCl BID - 1.5L fluid restriction, monitor I/Os, monitor renal function, peripheral edema (9) Stable medical conditions Status: Chronic Plan: NORMOCYTIC ANEMIA - Ferrous sulfate 325mg PO daily - Multivitamin 1 tab PO daily HYPERLIPIDEMIA -Atorvastatin 10mg daily - Tricor 48mg daily MDD: Pt reports stable mood; some anhedonia suspected. Previously, refusing meals, shower, PT - Sertraline 100 mg PO daily - Seroquel 100mg HS INSOMNIA -Zolpidem 5mg HS PRN GOUT -Allopurinol 300mg daily HYPOTHYROIDISM 08/2015- TSH low, free T4 grossly wnl (05/27/16) -Synthroid 50 mcg PO daily FUNGAL INFECTION -Nystatin powder and miconazole creme to skin folds MORBID OBESITY WITH BMI 60-69 -see above plan for mechanical ventilation PAIN - Percocet 10-325 mg PO q6h - Morphine 4mg IVP q6h (10) Nutrition, metabolism, and development symptoms Status: Acute Plan: FEN: Fluids: PO (Limited 1.5L/day) Electrolytes: +40KCl BID. Chronically hypokalemic, replete per protocol Nutrition: 2Kcal heart healthy diet. Transitioned to oral feeds (05/29). Wt: Admission: 480 lbs PPX GI ppx: Protonix 20mg BID DVT ppx: Lovenox 150mg BID Pain: Oxycodone 7.5/325 q4h PRN Bowel: Senna 1 tab HS PRN dw: Dr. Conner (11) On mechanically assisted ventilation Status: Resolved Plan: Currently off mechanical ventilation. Currently off CPAP Trach collar as tolerated. Out of bed to chair. We do not think he should go back to the vent unless he clinically declines. - Pulmicort BID REYES - Duonebs q2h PRN - Singulair 10mg daily - Symbicort bid (Allegra Ko MD R2) Problem Qualifiers (1) Chronic respiratory failure: Qualified Code: J96.10 - Chronic respiratory failure, unspecified whether with hypoxia or hypercapnia (2) Ankle ulcer: Qualified Code: L97.311 - Ankle ulcer, right, limited to breakdown of skin (3) Hypertension: Qualified Code: I10 - Essential hypertension (4) CHF (congestive heart failure): Qualified Code: I50.9 - Acute on chronic congestive heart failure, unspecified congestive heart failure type Allegra Ko MD R2 Jul 08, 2016 10:35 Asia Conner MD Jul 08, 2016 14:32
[2016-07-08] MEDS: POTASSIUM CHLORIDE 20 MEQ CONTROLLED RELEASE TAB PO SCH ×2 (11:31→23:42)
[2016-07-08] MEDS: ONDANSETRON HCL 4 MG/2 ML VIAL IV PUSH PRN (12:21)
--- NOTE | 2016-07-08 14:13 | HHI.CCPN ---
Subjective Remarks/Hospital Course 31 year old morbidly obese (BMI 68) male with chronic respiratory failure s/p tracheostomy 4 years ago, atrial fibrillation and pulmonary embolism on Xarelto , COPD, CHF and h/o HTN. He presented from [facility] with low oxygen saturation apparently his oxygen saturation was 82% on RA. He was placed back on 6L of oxygen via his trach mask and given a breathing treatment, initially improved however he started drifting back to low 80s again. Chest x-ray showed bibasilar infiltrates and pulmonary edema. Patient was admitted to the [facility] and was started on IV steroids IV vancomycin and Zosyn and Levaquin for healthcare associated pneumonia. After starting ACV, patient was more awake but there was a significant amount of air leak around his tracheostomy. Patient has had a Shiley 6.0 Proximal XLT, but the boat pilot balloon had been cut off. 05/02 the patient became acutely hypoxemic with a large cuff leak, underwent emergency trach exchange at bedside by Dr. Macias. FiO2 65% PEEP 14 05/13 Patient is on ventilator via trach, on Fentanyl infusion however he is awake and alert. On PRVC with FIO2 40%. Afebrile. 05/14 No acute events overnight. Tmax 99.8. Patient is awake, alert on ventilator via trach still requiring increase O2. On PRVC with PEEP: 10 and FIO2 70%. 05/15 Pt acutely desaturated after he was found. Saturation down to 70% on 100 % oxygen. Bag and mask ventilation carried out, with eventual improvement on oxygen saturation to 85%. Patient was placed on PC/AC mode of ventilation, with PEEP of 15 and instructed to pressure of 30. Eventually oxygen saturation improved to 95%. Lasix him today as the chest x-ray from today shows increasing bilateral infiltrate and pulmonary edema. Sputum culture will be sent 05/16 Patient is on Fentanyl and Diprivan infusion but awake and alert. Afebrile. On PC/AC with PEEP:15, IP: 22, IT:1.3 and FIO2 50% 05/17 Patient is off Diprivan and remains on Fentanyl infusion for sedation. On PC/AC with PEEP: down 10 and FIO2 40%. Afebrile. 05/18 Patient remains on ventilator via trach on PC/AC with PEEP:12, FIO2 40%, IP:22, IT:1.0. On Fentanyl infusion 05/19 No acute events overnight. On Fentanyl infusion but awake and alert. Afebrile. 05/20 Tolerating C Pap 17/12 FIO2 40, sats 98%. RSBI in 20s, appears can be weaned further. Afebrile. Speech therapy evaluated and ok for regular diet. Starting with full liquid. 05/21 Will wean PSV to 15/10. Tolerated full liquids, will advance to regular diet per speech recs. 05/22 On PSV 15/10 FIO2 40 with sats 92%. Smiling today. Glad to be eating regular food again. 05/23 No acute events overnight. Remains on CPAP with PS 15, PEEP:10 and FIO2 40 %. Afebrile. Off Fentanyl drip. Afebrile. Awake and alert. 05/24 Patient is on CPAP 06/06 with 40% FIO2. Afebrile. Awake and alert, on no sedation. 05/25 No acute events overnight. Patient was placed back on PC/AC overnight. Tolerated CPAP trials during day yesterday. Awake and alert. On no drips. Afebrile. 05/26 Afebrile. Tmax 98.6. Today the patient complained of nausea requiring Zofran. The patient has a lack of an appetite, with noted hypoglycemia early this a.m. blood glucose level 69. Patient tolerating CPAP well greater than 12 hours in the last 24 hours. 05/27 The patient tolerated CPAP for over 36 hours, O2 sat a knee 94% on FIO2 40 %. The patient had an increase in appetite. The patient continues on full liquid diet. 05/28 The patient declined physical therapy treatment, yesterday and also overnight declined to be moved by nursing staff. The patient refused dinner last evening, of note patient was reevaluated by speech therapy and can consume a heart healthy diet with thin liquids. The patient continues on physical therapy for strengthening exercises of all extremities specifically noted right upper extremity continues to be weak with gross fibrillations noted in hand and forearm. 05/29 Afebrile. No change in right upper extremity weakness. The patient was seen by neurology yesterday plan for MRI today if possible in hospital MRI, and EMG studies. No complaints overnight. Patient continues to refuse to have activities performed, movement in bed. The patient appears to be depressed, psychiatry consulted. 05/30: Patient alert awake on CPAP. Following commands. Psych agrees the patient is depressed. MRI brain no acute findings 05/31: Awake alert. on PS 15/8. EMG could not be completed due to patient becoming anxious. Otherwise no acute events reported overnight 06/01: Remains PS from 11/02. Right upper extremity weakness persists. EMG to be repeated on Friday. Will need MRI of the brachial plexus. Chest x-ray is unchanged 06/02: States that "not feeling well". Febrile to 101.5. White count increasing but still within the normal range. Pancultured. We'll request ID reevaluation. 06/03: Resting in bed on C Pap/pressure support via tracheostomy. One out of 2 sets of blood cultures sent on 06/02 positive for gram-positive cocci. 06/04: Resting in bed on mechanical ventilation via tracheostomy. Afebrile overnight. MRI brachial plexus (06/03) revealed a collection near the right subscapularis muscle, possibly an abscess. Discussed with ID, orthopedics Dr. Velazquez consulted. I discussed the case with Dr. Velazquez this morning who feels this is probably an abscess however would be difficult to access surgically and he plans to set up percutaneous drainage by interventional radiology. 06/05: Resting in bed on mechanical ventilation via tracheostomy. Remains afebrile. Reportedly IR cannot do percutaneous drainage of collection involving right subscapularis muscle. 06/06: Resting in bed on mechanical ventilation via tracheostomy. Can actually speak around the trach. Remains afebrile. Dr. Velazquez evaluated patient and is scheduling surgery for drainage of fluid collection involving the right subscapularis muscle. 06/07: Resting in bed on mechanical ventilation via tracheostomy. Awaiting surgery today. 06/08: Status post I&D of collection near right shoulder/subscapularis on 06/[address] Velazquez. This morning patient is awake and alert complained of some pain at the surgical site. Remains on mechanical ventilation on C Pap/pressure support. 06/09: Sleeping, arousable. On mechanical ventilation with C Pap/pressure support overnight. Labs pending 06/10 No acute events overnight. On CPAP with PS 12, PEEP: 8, FIO2 40%. Afebrile. 06/11 Patient remains on CPAP with PS 10, PEEP: 8 and FIO2 40%. Afebrile. 06/12: No acute events overnight. Remains on CPAP 10/5. No specific complaints 06/13: Tolerating C Pap 10 over 5. Awake and alert following commands. Hemoglobin dropped from 8.6-7.1, no obvious bleeding. Sodium 140-149. Will give 1 unit of PRBC with 1 mg IV Bumex 06/14 No acute events overnight. On CPAP with PS 10, PEEP:5 and FIO2 50%. Afebrile. 06/15 No acute events overnight. Remains on CPAP 10/5 with 40% FIO2. Afebrile. 06/16 Patient remains on ventilator via trach on CPAP with PS 10, PEEP:5 and FIO2 40%. 06/17: Resting in bed on mechanical ventilation via tracheostomy. Feeling nauseous. 06/18: OOB in reclining chair. Reporting low back and leg pain that is positional. Continued nausea, denies emesis. CPAP w PS 5 FIO2 40%. Will attempt Tpiece trial today. Discontinue Vanc + Zerbaxa today per ID 06/19: No acute events overnight. Afebrile. HTN to 160/80. CPAP with PS 10. PEEP 10 FIO2 45. Failed Tpiece trial yesterday- desaturated to mid 70s. Denies SOB/CP. Nausea is less than before. Bed is broken and patient would like the mattress to "rotate". Per nursing, they are working to fix it. 06/20: No acute events overnight. Afebrile. HTN to 145/70. CPAP with PEEP 10 FIO2 45, with saturation 93=94%. Pt has no acute complaints. Denies SOB/CP/ Nausea. Didn't know why he threw up during PT yesterday. Denies pain. Still having diarrhea (chronic years in duration issue). Was eating Pringles in bed. Per nursing, does not eat hospital food- waits for mother to bring him food. He was counseled to eat the hospital food which is healthier for him and that he needs to stop eating food brought in by his mother. 06/21: Remains on mechanical ventilation, CPAP with pressure support. 06/22: On mechanical ventilation on C Pap with pressure support. Denies any nausea or abdominal pain. Appears comfortable. 06/23: Resting in bed on mechanical ventilation with C Pap/pressure support +10/ +5. Denies any shortness of breath denies any abdominal pain or nausea currently. 06/24: Refusing to get OOB with physical therapy today. I had a long discussion with the patient about the fact that he has been inpatient for months now and he is severely deconditioned. He must get out of bed with PT to clinically improve, and deconditioning is a major factor in his chronic respiratory failure. He denies chest pain or SOB. does endorse some nausea today. 06/25: tolerated 4 hours OOB yesterday with 4 hours of trach collar. plan to go 6 hours today. 06/26: tolerated OOB to chair 5 hours yesterday but only 1.5hr of trach collar due to hypoxia. 06/27: tolerated OOB to chair for 6 hours yesterday and almost 5 hours of trach collar. daily, he continues to be very resistant to participating in PT and getting OOB. He again asks if he can lay in bed today. 06/28: tolerated 6 hours of trach collar yesterday. OOB for almost 8 hours. 06/29: continues to tolerate daily trach collar trials. OOB for 8 hours again yesterday. 06/30: tolerated 8 hours of trach collar yesterday. OOB for 7 hours. can do trach collar as tolerated. he continues to make attempts to refuse physical therapy and does not wish to participate in his care. 07/01: no changes. did well with 8 hours of trach collar and 8-9 hours of OOB. will attempt to stand and possibly walk in place today. this certainly is a large undertaking given how deconditioned he is, but I think the mobilization will help to continue our rehabilitation efforts. will be taxing on medical staff to physically assist him. This is likely something we can only do on a weekly basis. 07/02: took 3 steps yesterday (first time out of bed in almost 3 months). otherwise, tolerating daily t-piece with nightly CPAP. plan for OOB and steps again today. trach collar as tolerated. diamox x 3 doses for worsening contraction alkalosis. net -900cc/24h. 07/03: OOB and a few steps again yesterday. trying to push him to longer t-piece intervals with fewer rests on CPAP. OOB all day again today. net euvolemic yesterday. lab holiday today. 07/04: to chair today. trach collar as tolerated. I really think he could go most of the night if not all night on trach collar, but he keeps insisting on going back on the vent to rest. brought to my attention by family practice team for ankle skin breakdown. agree with podiatry consult. Subjective: 07/05: OOB to chair again today. tolerated trach collar yesterday. CPAP at night. keeps asking to go back on rate on vent overnight. I do not think medically he needs this. podiatry saw patient and recommended dressing and elevation for foot. 07/06: on trach collar all night, not on the vent. this is a huge improvement. K 6.0 on bmp this AM, but Cr at baseline. will recheck. 07/07: remains off the vent on trach collar. weaning fio2. OOB again. recheck K yesterday 6.0--> 3.7, so likely spurious lab. I think tomorrow if he remains on trach collar, he is safe to go back to his facility. 07/08: No acute issues overnight. Plans for transfer to his facility with case management assistance. Objective Vital Signs Date Time Temp Pulse Resp B/P Pulse Ox O2 Delivery O2 Flow Rate FiO2 07/08/16 12:00 98.4 62 24 136/96 95 07/08/16 12:00 T-Piece 8.00 100 Intake and Output 07/07/16 07/07/16 07/08/16 08:00 16:00 00:00 Intake Total 90 ml 480 ml 350 ml Output Total 300 ml 450 ml 550 ml Balance -210 ml 30 ml -200 ml Result Diagram: 07/08/16 0426 07/06/16 1112 Other Results Microbiology Date/Time Procedure Status Source Growth 07/05/16 17:00 Gram Stain - Final Complete Wound Leg 07/05/16 17:00 Wound Culture - Final Complete Prov[facility] MRI 06/20/16: No official reading. Preliminary reading suggests periventricular white matter changes at basal ganglia and no evidence ischemia CXR 06/17/16: Poor penetration. Rotated image. Unable to visualize lung bases. Possible atelectasis vs infiltrate R worse than L. Objective Remarks GEN: 31yo on trach collar, awakens and follows commands. Super morbidly obese. SKIN: Warm and dry. HEAD: Normocephalic. EYES: No scleral icterus. No injection or drainage. NECK: obese with large neck circumference, trachea midline. Shiley 6.0 Proximal XLT, (new trach placed 05/02/16) CV: normal rate, regular rhythm. RESP: On mechanical ventilation, Breath sounds equal bilaterally. Distant secondary to habitus. GI: Abdomen soft, obese, non-tender, nondistended. Multiple noted areas of ecchymotic bruising secondary to subcutaneous injections. MSK: No cyanosis, or edema. Pedal edema. Neuro: Moves all extremities with focal deficit right upper extremity. RASS 0. A/P Assessment and Plan ASSESSMENT Acute hypercapnic and hypoxemic respiratory failure (Shiley 6.0 Proximal XLT) CO2 narcosis (resolved) Acute worsening of hypoxia due to lung de-recruitment (05/15/16, resolved) Healthcare associated pneumonia MDR Pseudomonas Enterococcal bacteremia Pseudomonas bacteremia Collection near right subscapularis muscle(On MRI 06/03) - hematoma status post I &D on 06/07 Sepsis CHF exacerbation Tracheostomy boat pilot balloon damage -status post exchange with new Shiley 6.0 Proximal XLT 05/02/16 Probable right brachial plexus injury COPD/obesity hypoventilation syndrome Morbid Obesity BMI 60-69 History of pulmonary embolism 4 years ago Chronic atrial fibrillation Anxiety CHF (Echo 2013 EF 40-45%; ECHO 08/2015 showing a grossly normal systolic function) Hypertension Hypothyroidism Depression PLAN NEURO: CO2 narcosis - resolved Critical care polyneuropathy Right upper extremity weakness 05/21-possibly secondary to nerve compression, C6 , C7 (brachial plexus) Pain Anxiety Depression -EMG/ NCV could not be completed on 05/[address] Castillo -Clinically has right brachial plexus involvement. MRI of brachial plexus on 06/03 revealed collection involving right subscapularis muscle- s/p I & D on 06/[address] Velazquez. -Neurology Dr. Cheek-MRI brain, C spine no acute findings. -Venous Doppler RUE 05/28-negative for DVT -Continued PT daily, with strengthening exercises -Continue Seroquel 100mg HS. Continue Zoloft 100mg daily -Decreased pain reg: Tylenol 625mg pain 1-6, Percocet 10/325 pain 7-10 RESP: Acute hypercapnic and hypoxemic respiratory failure Acute lung derecruitment 05/15 with hypoxia Healthcare associated pneumonia Tracheostomy boat pilot balloon damage (Shiley 6.0 Proximal XLT) s/p new trach placement 05/02 Chronic Respiratory Failure s/p Tracheostomy 4 years ago COPD/obesity hypoventilation syndrome History of pulmonary embolism 4 years ago Leukocytosis-resolved Pulmonary edema - s/p Bronchoscopy 05/11 - BAL results negative - Pulm toilet, trach care - Continue with vent support keep sat >88% on CPAP 10, 45% FIO2. Continue T- piece - Continue DuoNeb q6h REYES + q2h PRN, Pulmicort BID, Singulair 10mg daily - trach collar as tolerated. OOB to chair. CV: CHF exacerbation Pulmonary edema Paroxysmal atrial fibrillation (chronic) Hyperlipidemia -Monitor HR and BP keep MAP>65mmHg -Cardizem 90mg QID, Bumex 1mg daily PO, Lipitor 10g daily, TriCor 40mg by mouth daily -continue home Xarelto. GI: Super morbid obesity with BMI of 64 Nausea GERD -Regular diet, thin liquids per speech recs -Liver US 06/03: Fatty liver, sludge in gall bladder, splenomegaly, no mechanical obstruction of bile duct noted. -Protonix 20mg BID. Zofran prn for nausea. -Multivitamin daily -Bringing in food, per nurses. Not adherent to hospital diet. Consider call to family to restrict them from bringing food. FEN/RENAL: Hypokalemia Metabolic alkalosis - Monitor renal function , I/O, electrolytes replacement per protocol. - Bumex 1mg PO daily, KCL 40meq Q12 - Willard is out. we are using a rectal bag to collect urine and keep sacral area clean. no indication for willard catheter. ID: Healthcare associated pneumonia Sepsis New fever-resolved MDRO Cellulitis right arm-resolved Leukocytosis-resolved Enterococcal faecalis bacteremia, Pseudomonas bacteremia (06/02, 06/03) -Wound culture Pseudomonas MDR 04/27 -Sputum culture-Pseudomonas MDR- 04/27 -Urine cx: Proteus Mirabilis 05/05 -Sputum cx: Providencia 05/05 -Bronchoscopy and re-culture 05/10- NG -Wound cx: Proteus, Pseudomonas, Group D Enterococcus- 05/13 -Sputum cx- NG- 05/15 -Blood culture: aerobic and anaerobic bottles - enterococcus faecalis, pseudomonas aeruginosa 06/02, 06/03 -Urine culture: pseudomonas aeruginosa- 06/02 -Wound culture: pseudomonas aeruginosa- 12/4 -Sputum culture: Pseudomonas- 06/02 -Dr. Velazquez performed drainage of collection surgically on 06/07- likely hematoma -Stopped IV Vanc and Zerbaxa on 06/18. (MDR pseudomonas in blood cultures) - colistin nebs stopped 06/27 HEME: History of PE on chronic anticoagulation with Xarelto Iron deficiency anemia and anemia of critical illness. -Monitor CBC, transfused 1U PRBC 06/13 -Xarelto for PE 4 yrs ago. -Continue Xarelto. -Ferrous sulfate 300 mg/q day ENDO: Hypothyroidism -On SSI (Low scale) -Continue levothyroxine 50 mcg po daily -Free T4 1.52 MSK: --agree with podiatry consult. PROPH: -Lower extremity SCDs (L leg only, R ankle cellulitis), continue home xarelto GI prophylaxis- Protonix 20mg BID LINES: - PICC line RUE- No DVT on US 05/02 - removed on 06/03. - Willard catheter removed 07/05. we are using rectal bag to collect urine in an effort to keep sacral and groin area clean and free of skin breakdown. Out of bed with assistance. PT out of bed with vent. OT. Dispo: Once we can get him off the ventilator, he can go back to his rehab facility. Until then, he remains in the ICU. q48h labs. Dispo: Level 2, plan to transfer. Case management return to his facility Physician Juana Cisneros MD Jul 08, 2016 14:13
[2016-07-08] MEDS: QUEtiapine FUMARATE 100 MG TAB PO SCH (20:35)
[2016-07-08] MEDS: ZOLPIDEM TARTRATE 10 MG TAB PO PRN (20:50)
[2016-07-09] VITALS (14 sets, daily range): BP systolic 116–130; BP diastolic 59–80; PULSE 84–95; RESP 20–30; TEMP 98–98.7; O2SAT 89–95
[2016-07-09 05:26] LABS: HEMATOCRIT 31.7 % (39.0-51.0); MEAN CELL VOLUME 84.6 FL (80.0-100.0); MEAN CORPUSCULAR HEMOGLOBIN 25.5 PG (27.0-34.0); MEAN CORPUSCULAR HGB CONC 30.2 % (32.0-36.0); PLATELET COUNT 281 TH/MM3 (150-450); RED BLOOD COUNT 3.75 MIL/MM3 (4.50-5.90); RED CELL DISTRIBUTION WIDTH 23.2 % (11.6-17.2); REVIEW FLAG FINAL; WHITE BLOOD COUNT 11.1 TH/MM3 (4.0-11.0)
[2016-07-09] MEDS: INSULIN NovoLIN REGULAR SUPPLEMENTAL SCALE SQ SCH (05:37)
[2016-07-09] MEDS: LEVOTHYROXINE SODIUM 50 MCG TAB PO SCH (05:37)
[2016-07-09] MEDS: RESP: BUDESONIDE 0.5 MG/2 ML NEB NEB SCH ×2 (07:58→20:52)
[2016-07-09] MEDS: CHLORHEXIDINE 0.12% (ORAL KIT) 15 ML CUP MT SCH ×2 (08:52→19:58)
[2016-07-09] MEDS: ALLOPURINOL 300 MG TAB PO SCH (08:52)
[2016-07-09] MEDS: ONDANSETRON HCL 4 MG/2 ML VIAL IV PUSH PRN (08:52)
[2016-07-09] MEDS: ATORVASTATIN 10 MG TAB PO SCH (08:53)
[2016-07-09] MEDS: FERROUS SULFATE 325 MG (65 MG ELEMENTAL IRON) TAB PO SCH (08:53)
[2016-07-09] MEDS: BUMETANIDE 1 MG TAB PO SCH (08:53)
[2016-07-09] MEDS: COLLAGENASE OINT 30 GM TUBE TOP SCH (08:53)
[2016-07-09] MEDS: SERTRALINE HCL 100 MG TAB PO SCH (08:53)
[2016-07-09] MEDS: RIVAROXABAN 20 MG TAB PO SCH (08:53)
[2016-07-09] MEDS: MULTIVITAMIN TAB PO SCH (08:53)
[2016-07-09] MEDS: PANTOPRAZOLE SOD 20 MG DELAYED RELEASE TAB PO SCH ×2 (08:53→19:58)
[2016-07-09] MEDS: FENOFIBRATE 48 MG TAB PO SCH (08:53)
[2016-07-09] MEDS: DILTIAZEM HCL 90 MG TAB PO SCH ×4 (08:53→19:58)
[2016-07-09] MEDS: MONTELUKAST SODIUM 10 MG TAB PO SCH (08:53)
[2016-07-09] MEDS: NYSTATIN 100,000 U/GM PWD 15 GM BTL TOPICAL SCH ×2 (08:54→23:35)
[2016-07-09] MEDS: SODIUM CHLORIDE 0.9% FLUSH 5 ML FLUSH IVF SCH ×2 (08:54→19:57)
[2016-07-09] MEDS: MICONAZOLE NITRATE 2% CREAM 15 GM TOP SCH ×2 (08:54→20:00)
--- NOTE | 2016-07-09 08:57 | PD.PN.STU ---
Subjective Remarks Mr Fortune is complaining of nausea without vomiting. He states that he "doesn't feel like going to the chair". He is aware of the possibility of going to a rehab center shortly. He remains afebrile, and off the ventilator. He denies any chest pain, shortness of breath, fever or chills. Objective Vitals Vital Signs Date Time Temp Pulse Resp B/P Pulse Ox O2 Delivery O2 Flow Rate FiO2 07/09/16 08:01 90 T-piece 7.00 70 07/09/16 06:00 92 07/09/16 04:00 95 07/09/16 04:00 98.0 95 22 120/68 94 07/09/16 04:00 92 T-Piece 8.00 70 07/09/16 02:00 91 07/09/16 00:00 87 07/09/16 00:00 98.1 89 20 117/80 95 07/09/16 00:00 92 T-Piece 8.00 70 07/08/16 22:00 91 07/08/16 20:53 96 T-piece 6.00 70 07/08/16 20:00 92 T-Piece 8.00 70 07/08/16 20:00 98.3 86 22 119/67 94 07/08/16 20:00 86 07/08/16 18:00 89 07/08/16 16:00 92 T-Piece 8.00 70 07/08/16 16:00 92 07/08/16 16:00 98.8 92 26 123/68 92 07/08/16 14:00 89 07/08/16 12:00 98.4 62 24 136/96 95 07/08/16 12:00 95 T-Piece 8.00 100 07/08/16 12:00 91 07/08/16 10:00 90 I/O 07/08/16 07/08/16 07/08/16 07/09/16 07/09/16 07/09/16 07:00 15:00 23:00 07:00 15:00 23:00 Intake Total 350 ml 180 ml 240 ml 350 ml Output Total 650 ml 1150 ml 750 ml 350 ml Balance -300 ml -970 ml -510 ml 0 ml Intake Oral 350 ml 180 ml 240 ml 350 ml IV Total 0 ml 0 ml 0 ml 0 ml Output Urine Total 650 ml 1150 ml 750 ml 350 ml # Bowel Movements 1 0 0 Result Diagram: 07/09/1642907/09/16429 Objective Remarks GENERAL: Obese male, laying in bed in no acute distress SKIN: Warm and dry. Wound is c/d/i on the right lateral ankle. Middle and Left anterior chest has erythematous, flaking rash approximately 10cm, and extends to axillary region. Multiple skin folds secondary to body habitus. HEAD: Normocephalic. EYES: No scleral icterus. No injection or drainage. NECK: T-collar in place is c/d/i. CARDIOVASCULAR: Regular rate and rhythm without murmurs, gallops, or rubs. RESPIRATORY: Breath sounds equal bilaterally. GASTROINTESTINAL: Abdomen soft, non-tender, nondistended. Bruising across lower abdomen. EXTREMITIES: No cyanosis, or edema. Patient able to move all extremities. NEUROLOGICAL: Awake, alert, and oriented x 3. Non-focal. A/P Assessment and Plan 31yo male with super morbid obesity with chronic respiratory failure status post tracheostomy 4 years ago. He was admitted 05/13/16 with respiratory failure. Currently he is off mechanical ventilation and off CPAP for >48 hours. Planning on discharging him to a long-term facility with case management assistance. Discharge Planning Likely today or in the next 1-2 days pending appropriate placement. Case management assisting with discharge needs. Problem List: (1) Chronic respiratory failure Status: Acute Plan: Currently off mechanical ventilation. Currently off CPAP Trach collar as tolerated. Out of bed to chair. We do not think he should go back to the vent unless he clinically declines. - Pulmicort BID REYES - Duonebs q2h PRN - Singulair 10mg daily - Symbicort bid (2) Ankle ulcer Status: Acute Plan: Podiatry consult -Offload area of skin breakdown with pillows under the knee. -Culture and sensitivity of the wound growing providencia stuartii -Optifoam gentle AG dressings ordered -Continue bandages -Wound care consult (3) Nausea Status: Chronic Plan: Chronic. Ddx: GERD vs psychosomatic vs impaired gastric emptying vs medication side effect. - Zofran 4mg IV q6h PRN nausea - Reglan 10mg ACHS PRN nausea - Protonix 20mg BID REYES - Mg-Al liquid q6h PRN dyspepsia - Ca Carbonate Tums chews 500mg q12h (4) Bacteremia Status: Resolved Plan: Infectious disease no longer following. - Colistin 75mg q8h NEB continue - Acetaminophen 325mg PRN fever Abx History Zosyn 4.5gm IV q6h (04/24 - 04/29) Levaquin 750mg IV q24h (04/24-04/30) Zerbaxa 1.5 g IV q8h (04/29 - 05/07) Vancomycin IV (04/24 - 05/06) Ceftriaxone IV (05/07 - 05/25) Linezolid 600 mg PO BID (05/06 - 05/13) Zosyn 3.375 q6h (06/04- 06/05) - Vancomycin IV daily goal trough 15-20, (06/03 -- 06/18) - Zerbaxa IV q8h (06/05-- 06/18) RESOLVED CONDITIONS THIS HOSPITAL VISIT - Cellulitis of Chest Wall: completed course linezolid (05/06-05/13), per ID recs - Yeast UTI: completed course Diflucan. UCx 05/01: Dionne albicans. Repeat UCx 05/05: Proteus Mirabilis - HCAP: s/p multiple abx (5) Hematoma Status: Acute Plan: - Daily dressing changes with xeroform and primapore - Daily PT/OT, as tolerated. PT targeting RUE weakness. Initial Impression: Hematoma contributing to RUE weakness x4 weeks. S/p I&D by Dr. Velazquez (06/07/16). Small hematoma found during procedure inconsistent with 6cm x 6cm x 8cm abscess suggested by MRI brachial plexus. Ddx for RUE weakness: hematoma vs C6/C7 neuropathy. L hemispheric pathology, and seizure ruled out ( see below). Unable to tolerate EMG. Imaging: - US negative for DVT (05/28) - MRI brain (04/28) no acute intracranial process - MRI C-spine (05/29): grossly wnl - EEG (05/29): diffuse mild encephalopathy vs normal Stage 2 sleep - MRI brachial plexus (06/03): "Complex multiloculated soft tissue and cystic mass 5.5 x 6 x 7.8 cm involving subscapularis muscle along anterior R scapula - Pathology report (06/07): fragments of blood clot admixed with few minute fragments of adipose and skeletal muscle tissue (6) Paroxysmal a-fib Status: Chronic Plan: -Sinus rhythm, regular rate at this time - Cardizem/diltiazem 90mg PO qid - Xarelto 20mg PO qd, per critical care (7) Hypertension Status: Chronic Plan: - Bumetanide 1mg PO qd - Cardiazem 90mg QID - Labetalol 10mg IV PRN SBP 160+ (8) CHF (congestive heart failure) Status: Chronic Plan: Suspected HF with poor EF, though unable to confirm via ECHO (04/25) due to poor imaging. BNP elevated on admission, downtrended. - Bumex 1mg PO daily + 40 KCl BID - 1.5L fluid restriction, monitor I/Os, monitor renal function, peripheral edema (9) Stable medical conditions Status: Chronic Plan: NORMOCYTIC ANEMIA - Ferrous sulfate 325mg PO daily - Multivitamin 1 tab PO daily HYPERLIPIDEMIA -Atorvastatin 10mg daily - Tricor 48mg daily MDD: Pt reports stable mood; some anhedonia suspected. Previously, refusing meals, shower, PT - Sertraline 100 mg PO daily - Seroquel 100mg HS INSOMNIA -Zolpidem 5mg HS PRN GOUT -Allopurinol 300mg daily HYPOTHYROIDISM 08/2015- TSH low, free T4 grossly wnl (05/27/16) -Synthroid 50 mcg PO daily FUNGAL INFECTION -Nystatin powder and miconazole creme to skin folds MORBID OBESITY WITH BMI 60-69 -see above plan for mechanical ventilation PAIN - Percocet 10-325 mg PO q6h - Morphine 4mg IVP q6h (10) Nutrition, metabolism, and development symptoms Status: Acute Plan: FEN: Fluids: PO (Limited 1.5L/day) Electrolytes: +40KCl BID. Chronically hypokalemic, replete per protocol Nutrition: 2Kcal heart healthy diet. Transitioned to oral feeds (05/29). Wt: Admission: 480 lbs PPX GI ppx: Protonix 20mg BID DVT ppx: Lovenox 150mg BID Pain: Oxycodone 7.5/325 q4h PRN Bowel: Senna 1 tab HS PRN (11) On mechanically assisted ventilation Status: Resolved Plan: Currently off mechanical ventilation. Currently off CPAP Trach collar as tolerated. Out of bed to chair. We do not think he should go back to the vent unless he clinically declines. - Pulmicort BID REYES - Duonebs q2h PRN - Singulair 10mg daily - Symbicort [place] Sampson M3 Jul 09, 2016 08:57
--- NOTE | 2016-07-09 09:10 | HHI.FPPN ---
Subjective Remarks Overnight, patient desaturated to 68%, requiring increase in FiO2 to 100%. Weaned to new baseline FiO2 70% this am, with good saturations of 92-96 on T- piece 8L. Per nursing and CC staff, pt has history of breath holding to induce desaturations. Acute c/o RUBY and stomach pain. Denies f/c, emesis, SOB, CP/ palpitations, leg pain. Voiding and stooling without difficulty. Baseline chronic diarrhea. Objective Vitals Vital Signs Date Time Temp Pulse Resp B/P Pulse Ox O2 Delivery O2 Flow Rate FiO2 07/09/16 08:01 90 T-piece 7.00 70 07/09/16 06:00 92 07/09/16 04:00 95 07/09/16 04:00 98.0 95 22 120/68 94 07/09/16 04:00 92 T-Piece 8.00 70 07/09/16 02:00 91 07/09/16 00:00 87 07/09/16 00:00 98.1 89 20 117/80 95 07/09/16 00:00 92 T-Piece 8.00 70 07/08/16 22:00 91 07/08/16 20:53 96 T-piece 6.00 70 07/08/16 20:00 92 T-Piece 8.00 70 07/08/16 20:00 98.3 86 22 119/67 94 07/08/16 20:00 86 07/08/16 18:00 89 07/08/16 16:00 92 T-Piece 8.00 70 07/08/16 16:00 92 07/08/16 16:00 98.8 92 26 123/68 92 07/08/16 14:00 89 07/08/16 12:00 98.4 62 24 136/96 95 07/08/16 12:00 95 T-Piece 8.00 100 07/08/16 12:00 91 07/08/16 10:00 90 I/O 07/08/16 07/08/16 07/08/16 07/09/16 07/09/16 07/09/16 07:00 15:00 23:00 07:00 15:00 23:00 Intake Total 350 ml 180 ml 240 ml 350 ml Output Total 650 ml 1150 ml 750 ml 350 ml Balance -300 ml -970 ml -510 ml 0 ml Intake Oral 350 ml 180 ml 240 ml 350 ml IV Total 0 ml 0 ml 0 ml 0 ml Output Urine Total 650 ml 1150 ml 750 ml 350 ml # Bowel Movements 1 0 0 Result Diagram: 07/09/1642907/09/16429 Imaging Last Impressions Chest X-Ray 06/17/16 0600 Signed Impressions: Service Date/Time: Friday, June 17, 2016 04:38 - CONCLUSION: No significant change. Garcia Ramirez MD Liver Ultrasound 06/03/16 0000 Signed Impressions: Service Date/Time: Friday, June 03, 2016 08:10 - CONCLUSION: 1. There is some sludge in the gallbladder. This can be seen with chronic gallbladder disease. 2. Fatty infiltration of the liver which appears to be enlarged. 3. No mechanical biliary tract obstruction. 4. Splenomegaly. Lázaro Frankel MD Brachial Plexus MRI 06/03/16 0000 Signed Impressions: Service Date/Time: Friday, June 03, 2016 12:42 - CONCLUSION: There is a complex multiloculated soft tissue and cystic mass measuring approximately 5.5 x 6.0 x 7.8 cm involving the subscapularis muscle along the anterior right scapula. The differential considerations include neoplastic disease, infection and hematoma. Recommend a CT scan of the right shoulder to pre-plan for CT-guided aspiration/biopsy of this abnormality. Lázaro Frankel MD Cervical Spine MRI 05/29/16 0000 Signed Impressions: Service Date/Time: Sunday, May 29, 2016 13:51 - CONCLUSION: Limited study but appears normal. Vishnu Woodward MD Brain MRI 05/29/16 0000 Signed Impressions: Service Date/Time: Sunday, May 29, 2016 13:51 - CONCLUSION: 1. Focal chronic ischemic change in the high right frontal parietal convexity stable from previous CT scan. 2. No acute intracranial abnormality. 3. Minimal nonspecific white matter changes. Vishnu Woodward MD Upper Extremity Ultrasound 05/28/16 0000 Signed Impressions: Service Date/Time: Saturday, May 28, 2016 10:16 - CONCLUSION: 1. Negative for deep venous thrombosis. Venous line noted in cephalic, subclavian and internal jugular vein. Horacio Gupta MD Abdomen X-Ray 04/29/16 0000 Signed Impressions: Service Date/Time: Friday, April 29, 2016 07:12 - CONCLUSION: Suspect Dobbhoff tube in the distal stomach. Garcia Lujan MD Objective Remarks CONST: Morbidly obese male in NAD. DERM: Dry, flaking skin on feet. Flat, erythematous, fungal appearing rash on torso and L shoulder. Well-healing scar R shoulder. R lat malleolus with 1.5 x 1.5 cm skin break down. Area in bandage- c/d/i. Numerous skin folds 2/2 habitus. HEENT: Tracheotomy site c/d/i. Poor dentition CV: Distant heart sounds. RRR. Normal peripheral perfusion. RESP: Anterior exam w transmitted upper respiratory sounds and b/l end expiratory wheezing- pt began short, huffing breaths during lung exam that resolved when exam concluded. Breathing comfortably on Tpiece.. GI: Abdomen soft, obese, non-tender. +BS. Bruises on lower abdomen. MSK: External rotation of RLE and LLE. Patient able to move all his fingers and toes. Patient with intact sensation in all his fingers and toes. NEURO: CN grossly normal. Procedures 04/24- Started ventilation 05/02- Emergency Trach Exchange 06/03- PICC line removed 06/07- Debridement of RUE abscess (Dr. Velazquez), RUE drain placed 06/10- RUE drain removal 07/05- Removed from ventilation, continuous T-piece Urinary Catheter: No Vascular Central Line Catheter: No A/P Assessment and Plan 31yo male with super morbid obesity with chronic respiratory failure s/p tracheostomy 4 years ago. Admitted 05/13/16 with respiratory failure. Discharge Planning Today 07/09/15. Case management working on placement. Off mechanical ventilation and off CPAP for 96+ hr. D/c to a long-term facility. PT/OT recommend d/c to rehab with PT/OT. Critical care recommend d/c rehab. Family practice recommend d/c rehab. Problem List: (1) Chronic respiratory failure Status: Chronic Plan: Off mechanical ventilation, CPAP. -Prioritize patient discharge to SNF. -Continue Trach collar, as tolerated. OOB to chair. Do not return to vent unless clinically declines per O2 saturations. - Pulmicort BID REYES - Singulair 10mg daily - Symbicort BID REYES - Duonebs q2h PRN (2) Ankle ulcer Status: Acute Plan: Ankle ulcer present on admission, has worsened during last part of hospital stay. Podiatry, Wound Care consulted. Wound Culture (07/05): Providencia stuartii -Offload area of skin breakdown with pillows under the knee. -Optifoam gentle AG dressings -Continue OT to improve chronic external rotation RLE (3) Nausea Status: Chronic Plan: Chronic. Ddx: GERD vs psychosomatic vs impaired gastric emptying vs medication side effect. - Zofran ODT q6h PRN n/v - Protonix 20mg BID REYES (4) Bacteremia Status: Resolved Plan: - Colistin 75mg q8h NEB continue - Acetaminophen 325mg PRN fever RESOLVED CONDITIONS THIS HOSPITAL VISIT ID no longer following - Cellulitis of Chest Wall: completed course linezolid (05/06-05/13), per ID recs - Yeast UTI: completed course Diflucan. UCx 05/01: Dionne albicans. Repeat UCx 05/05: Proteus Mirabilis - HCAP: s/p multiple abx Abx History Zosyn 4.5gm IV q6h (04/24 - 04/29) Levaquin 750mg IV q24h (04/24-04/30) Zerbaxa 1.5 g IV q8h (04/29 - 05/07) Vancomycin IV (04/24 - 05/06) Ceftriaxone IV (05/07 - 05/25) Linezolid 600 mg PO BID (05/06 - 05/13) Zosyn 3.375 q6h (06/04- 06/05) Vancomycin IV daily goal trough 15-20, (06/03 -06/18) Zerbaxa IV q8h (06/05-06/18) (5) Hematoma Status: Acute Plan: Initial Impression: RUE weakness secondary to hematoma vs C6/C7 neuropathy. S/p I&D by Dr. Velazquez (06/07/16). Small hematoma found during procedure inconsistent with 6cm x 6cm x 8cm abscess per MRI brachial plexus. L hemispheric pathology and seizure r/o as cause RUE weakness. Unable to tolerate EMG. - Daily dressing changes with xeroform and primapore - Daily PT/OT, as tolerated. PT targeting RUE weakness. Imaging: - US negative for DVT (05/28) - MRI brain (04/28) no acute intracranial process - MRI C-spine (05/29): grossly wnl - EEG (05/29): diffuse mild encephalopathy vs normal Stage 2 sleep - MRI brachial plexus (06/03): "Complex multiloculated soft tissue and cystic mass 5.5 x 6 x 7.8 cm involving subscapularis muscle along anterior R scapula - Pathology report (06/07): fragments of blood clot admixed with few minute fragments of adipose and skeletal muscle tissue (6) Paroxysmal a-fib Status: Chronic Plan: -NSR at present. - Diltiazem 90mg QID - Xarelto 20mg PO daily (7) Hypertension Status: Chronic Plan: - Bumetanide 1mg PO qd - Cardiazem 90mg QID (8) CHF (congestive heart failure) Status: Chronic Plan: Suspected HF with poor EF, though unable to confirm via ECHO (04/25) due to poor imaging. BNP elevated on admission, downtrended. - Bumex 1mg PO daily + 40 KCl BID - 1.5L fluid restriction, monitor I/Os, monitor renal function, peripheral edema (9) Stable medical conditions Status: Chronic Plan: NORMOCYTIC ANEMIA - Ferrous sulfate 325mg PO daily - Multivitamin 1 tab PO daily HYPERLIPIDEMIA - Atorvastatin 10mg daily - Tricor 48mg daily MDD: Pt reports stable mood; some anhedonia suspected. Previously, refusing meals, shower, PT - Sertraline 100 mg PO daily - Seroquel 100mg HS INSOMNIA - Zolpidem 5mg HS PRN GOUT - Allopurinol 300mg daily HYPOTHYROIDISM 08/2015- TSH low, free T4 grossly wnl (05/27/16) - Synthroid 50 mcg PO daily FUNGAL INFECTION - Nystatin powder and miconazole creme to skin folds MORBID OBESITY WITH BMI 55-59 -see above plan for mechanical ventilation (10) Nutrition, metabolism, and development symptoms Status: Acute Plan: FEN: Fluids: PO (Limited 1.5L/day) Electrolytes: +40KCl BID. Chronically hypokalemic, replete per protocol Nutrition: 2Kcal heart healthy diet. Transitioned to oral feeds (05/29). Wt: Admission: 480 lbs PPX GI ppx: Protonix 20mg BID DVT ppx: Lovenox 150mg BID Pain: Oxycodone 7.5/325 q4h PRN Bowel: Senna 1 tab HS PRN dw: Dr. Conner (11) On mechanically assisted ventilation Status: Resolved Plan: Currently off mechanical ventilation. Currently off CPAP Trach collar as tolerated. Out of bed to chair. We do not think he should go back to the vent unless he clinically declines. - Pulmicort BID REYES - Duonebs q2h PRN - Singulair 10mg daily - Symbicort bid Problem Qualifiers (1) Chronic respiratory failure: Qualified Code: J96.10 - Chronic respiratory failure, unspecified whether with hypoxia or hypercapnia (2) Ankle ulcer: Qualified Code: L97.311 - Ankle ulcer, right, limited to breakdown of skin (3) Hypertension: Qualified Code: I10 - Essential hypertension (4) CHF (congestive heart failure): Qualified Code: I50.9 - Acute on chronic congestive heart failure, unspecified congestive heart failure type Holley Baires MD R1 Jul 09, 2016 09:10 Holley Baires MD R1 Jul 09, 2016 09:10 (3) Hypertension: Qualified Code: I10 - Essential hypertension (4) CHF (congestive heart failure): Qualified Code: I50.9 - Acute on chronic congestive heart failure, unspecified congestive heart failure type Holley Baires MD R1 Jul 09, 2016 09:10
[2016-07-09] MEDS: POTASSIUM CHLORIDE 20 MEQ CONTROLLED RELEASE TAB PO SCH ×2 (11:08→23:36)
[2016-07-09] MEDS: ACETAMINOPHEN 325 MG TAB PO PRN (13:12)
--- NOTE | 2016-07-09 17:03 | HHI.CCPN ---
Subjective Remarks/Hospital Course 31 year old morbidly obese (BMI 68) male with chronic respiratory failure s/p tracheostomy 4 years ago, atrial fibrillation and pulmonary embolism on Xarelto , COPD, CHF and h/o HTN. He presented from [facility] with low oxygen saturation apparently his oxygen saturation was 82% on RA. He was placed back on 6L of oxygen via his trach mask and given a breathing treatment, initially improved however he started drifting back to low 80s again. Chest x-ray showed bibasilar infiltrates and pulmonary edema. Patient was admitted to the [facility] and was started on IV steroids IV vancomycin and Zosyn and Levaquin for healthcare associated pneumonia. After starting ACV, patient was more awake but there was a significant amount of air leak around his tracheostomy. Patient has had a Shiley 6.0 Proximal XLT, but the company pilot balloon had been cut off. 05/02 the patient became acutely hypoxemic with a large cuff leak, underwent emergency trach exchange at bedside by Dr. Macias. FiO2 65% PEEP 14 05/13 Patient is on ventilator via trach, on Fentanyl infusion however he is awake and alert. On PRVC with FIO2 40%. Afebrile. 05/14 No acute events overnight. Tmax 99.8. Patient is awake, alert on ventilator via trach still requiring increase O2. On PRVC with PEEP: 10 and FIO2 70%. 05/15 Pt acutely desaturated after he was found. Saturation down to 70% on 100 % oxygen. Bag and mask ventilation carried out, with eventual improvement on oxygen saturation to 85%. Patient was placed on PC/AC mode of ventilation, with PEEP of 15 and instructed to pressure of 30. Eventually oxygen saturation improved to 95%. Lasix him today as the chest x-ray from today shows increasing bilateral infiltrate and pulmonary edema. Sputum culture will be sent 05/16 Patient is on Fentanyl and Diprivan infusion but awake and alert. Afebrile. On PC/AC with PEEP:15, IP: 22, IT:1.3 and FIO2 50% 05/17 Patient is off Diprivan and remains on Fentanyl infusion for sedation. On PC/AC with PEEP: down 10 and FIO2 40%. Afebrile. 05/18 Patient remains on ventilator via trach on PC/AC with PEEP:12, FIO2 40%, IP:22, IT:1.0. On Fentanyl infusion 05/19 No acute events overnight. On Fentanyl infusion but awake and alert. Afebrile. 05/20 Tolerating C Pap 17/12 FIO2 40, sats 98%. RSBI in 20s, appears can be weaned further. Afebrile. Speech therapy evaluated and ok for regular diet. Starting with full liquid. 05/21 Will wean PSV to 15/10. Tolerated full liquids, will advance to regular diet per speech recs. 05/22 On PSV 15/10 FIO2 40 with sats 92%. Smiling today. Glad to be eating regular food again. 05/23 No acute events overnight. Remains on CPAP with PS 15, PEEP:10 and FIO2 40 %. Afebrile. Off Fentanyl drip. Afebrile. Awake and alert. 05/24 Patient is on CPAP 06/06 with 40% FIO2. Afebrile. Awake and alert, on no sedation. 05/25 No acute events overnight. Patient was placed back on PC/AC overnight. Tolerated CPAP trials during day yesterday. Awake and alert. On no drips. Afebrile. 05/26 Afebrile. Tmax 98.6. Today the patient complained of nausea requiring Zofran. The patient has a lack of an appetite, with noted hypoglycemia early this a.m. blood glucose level 69. Patient tolerating CPAP well greater than 12 hours in the last 24 hours. 05/27 The patient tolerated CPAP for over 36 hours, O2 sat a knee 94% on FIO2 40 %. The patient had an increase in appetite. The patient continues on full liquid diet. 05/28 The patient declined physical therapy treatment, yesterday and also overnight declined to be moved by nursing staff. The patient refused dinner last evening, of note patient was reevaluated by speech therapy and can consume a heart healthy diet with thin liquids. The patient continues on physical therapy for strengthening exercises of all extremities specifically noted right upper extremity continues to be weak with gross fibrillations noted in hand and forearm. 05/29 Afebrile. No change in right upper extremity weakness. The patient was seen by neurology yesterday plan for MRI today if possible in hospital MRI, and EMG studies. No complaints overnight. Patient continues to refuse to have activities performed, movement in bed. The patient appears to be depressed, psychiatry consulted. 05/30: Patient alert awake on CPAP. Following commands. Psych agrees the patient is depressed. MRI brain no acute findings 05/31: Awake alert. on PS 15/8. EMG could not be completed due to patient becoming anxious. Otherwise no acute events reported overnight 06/01: Remains PS from 11/02. Right upper extremity weakness persists. EMG to be repeated on Friday. Will need MRI of the brachial plexus. Chest x-ray is unchanged 06/02: States that "not feeling well". Febrile to 101.5. White count increasing but still within the normal range. Pancultured. We'll request ID reevaluation. 06/03: Resting in bed on C Pap/pressure support via tracheostomy. One out of 2 sets of blood cultures sent on 06/02 positive for gram-positive cocci. 06/04: Resting in bed on mechanical ventilation via tracheostomy. Afebrile overnight. MRI brachial plexus (06/03) revealed a collection near the right subscapularis muscle, possibly an abscess. Discussed with ID, orthopedics Dr. Velazquez consulted. I discussed the case with Dr. Velazquez this morning who feels this is probably an abscess however would be difficult to access surgically and he plans to set up percutaneous drainage by interventional radiology. 06/05: Resting in bed on mechanical ventilation via tracheostomy. Remains afebrile. Reportedly IR cannot do percutaneous drainage of collection involving right subscapularis muscle. 06/06: Resting in bed on mechanical ventilation via tracheostomy. Can actually speak around the trach. Remains afebrile. Dr. Velazquez evaluated patient and is scheduling surgery for drainage of fluid collection involving the right subscapularis muscle. 06/07: Resting in bed on mechanical ventilation via tracheostomy. Awaiting surgery today. 06/08: Status post I&D of collection near right shoulder/subscapularis on 06/[address] Velazquez. This morning patient is awake and alert complained of some pain at the surgical site. Remains on mechanical ventilation on C Pap/pressure support. 06/09: Sleeping, arousable. On mechanical ventilation with C Pap/pressure support overnight. Labs pending 06/10 No acute events overnight. On CPAP with PS 12, PEEP: 8, FIO2 40%. Afebrile. 06/11 Patient remains on CPAP with PS 10, PEEP: 8 and FIO2 40%. Afebrile. 06/12: No acute events overnight. Remains on CPAP 10/5. No specific complaints 06/13: Tolerating C Pap 10 over 5. Awake and alert following commands. Hemoglobin dropped from 8.6-7.1, no obvious bleeding. Sodium 140-149. Will give 1 unit of PRBC with 1 mg IV Bumex 06/14 No acute events overnight. On CPAP with PS 10, PEEP:5 and FIO2 50%. Afebrile. 06/15 No acute events overnight. Remains on CPAP 10/5 with 40% FIO2. Afebrile. 06/16 Patient remains on ventilator via trach on CPAP with PS 10, PEEP:5 and FIO2 40%. 06/17: Resting in bed on mechanical ventilation via tracheostomy. Feeling nauseous. 06/18: OOB in reclining chair. Reporting low back and leg pain that is positional. Continued nausea, denies emesis. CPAP w PS 5 FIO2 40%. Will attempt Tpiece trial today. Discontinue Vanc + Zerbaxa today per ID 06/19: No acute events overnight. Afebrile. HTN to 160/80. CPAP with PS 10. PEEP 10 FIO2 45. Failed Tpiece trial yesterday- desaturated to mid 70s. Denies SOB/CP. Nausea is less than before. Bed is broken and patient would like the mattress to "rotate". Per nursing, they are working to fix it. 06/20: No acute events overnight. Afebrile. HTN to 145/70. CPAP with PEEP 10 FIO2 45, with saturation 93=94%. Pt has no acute complaints. Denies SOB/CP/ Nausea. Didn't know why he threw up during PT yesterday. Denies pain. Still having diarrhea (chronic years in duration issue). Was eating Pringles in bed. Per nursing, does not eat hospital food- waits for mother to bring him food. He was counseled to eat the hospital food which is healthier for him and that he needs to stop eating food brought in by his mother. 06/21: Remains on mechanical ventilation, CPAP with pressure support. 06/22: On mechanical ventilation on C Pap with pressure support. Denies any nausea or abdominal pain. Appears comfortable. 06/23: Resting in bed on mechanical ventilation with C Pap/pressure support +10/ +5. Denies any shortness of breath denies any abdominal pain or nausea currently. 06/24: Refusing to get OOB with physical therapy today. I had a long discussion with the patient about the fact that he has been inpatient for months now and he is severely deconditioned. He must get out of bed with PT to clinically improve, and deconditioning is a major factor in his chronic respiratory failure. He denies chest pain or SOB. does endorse some nausea today. 06/25: tolerated 4 hours OOB yesterday with 4 hours of trach collar. plan to go 6 hours today. 06/26: tolerated OOB to chair 5 hours yesterday but only 1.5hr of trach collar due to hypoxia. 06/27: tolerated OOB to chair for 6 hours yesterday and almost 5 hours of trach collar. daily, he continues to be very resistant to participating in PT and getting OOB. He again asks if he can lay in bed today. 06/28: tolerated 6 hours of trach collar yesterday. OOB for almost 8 hours. 06/29: continues to tolerate daily trach collar trials. OOB for 8 hours again yesterday. 06/30: tolerated 8 hours of trach collar yesterday. OOB for 7 hours. can do trach collar as tolerated. he continues to make attempts to refuse physical therapy and does not wish to participate in his care. 07/01: no changes. did well with 8 hours of trach collar and 8-9 hours of OOB. will attempt to stand and possibly walk in place today. this certainly is a large undertaking given how deconditioned he is, but I think the mobilization will help to continue our rehabilitation efforts. will be taxing on medical staff to physically assist him. This is likely something we can only do on a weekly basis. 07/02: took 3 steps yesterday (first time out of bed in almost 3 months). otherwise, tolerating daily t-piece with nightly CPAP. plan for OOB and steps again today. trach collar as tolerated. diamox x 3 doses for worsening contraction alkalosis. net -900cc/24h. 07/03: OOB and a few steps again yesterday. trying to push him to longer t-piece intervals with fewer rests on CPAP. OOB all day again today. net euvolemic yesterday. lab holiday today. 07/04: to chair today. trach collar as tolerated. I really think he could go most of the night if not all night on trach collar, but he keeps insisting on going back on the vent to rest. brought to my attention by family practice team for ankle skin breakdown. agree with podiatry consult. Subjective: 07/05: OOB to chair again today. tolerated trach collar yesterday. CPAP at night. keeps asking to go back on rate on vent overnight. I do not think medically he needs this. podiatry saw patient and recommended dressing and elevation for foot. 07/06: on trach collar all night, not on the vent. this is a huge improvement. K 6.0 on bmp this AM, but Cr at baseline. will recheck. 07/07: remains off the vent on trach collar. weaning fio2. OOB again. recheck K yesterday 6.0--> 3.7, so likely spurious lab. I think tomorrow if he remains on trach collar, he is safe to go back to his facility. 07/08: No acute issues overnight. Plans for transfer to his facility with case management assistance. 07/09: Afebrile.The patient continues on trach collar. After readjustment in the bed early this a.m., the patient required increased O2 requirements to FiO2 of 90% which was decreased back down to 70% within an hour. No acute respiratory distress was noted. Objective Vital Signs Date Time Temp Pulse Resp B/P Pulse Ox O2 Delivery O2 Flow Rate FiO2 07/09/16 14:00 84 07/09/16 12:00 98.4 27 130/68 94 07/09/16 12:00 T-Piece 8.00 70 Intake and Output 07/08/16 07/08/16 07/09/16 08:00 16:00 00:00 Intake Total 350 ml 180 ml 240 ml Output Total 650 ml 1150 ml 750 ml Balance -300 ml -970 ml -510 ml Result Diagram: 07/09/16 0430 07/09/16 0430 Imaging MRI 06/20/16: No official reading. Preliminary reading suggests periventricular white matter changes at basal ganglia and no evidence ischemia CXR 06/17/16: Poor penetration. Rotated image. Unable to visualize lung bases. Possible atelectasis vs infiltrate R worse than L. Objective Remarks GEN: 31yo on trach collar, awakens and follows commands. Super morbidly obese. SKIN: Warm and dry. HEAD: Normocephalic. EYES: No scleral icterus. No injection or drainage. NECK: obese with large neck circumference, trachea midline. Shiley 6.0 Proximal XLT, (new trach placed 05/02/16) CV: normal rate, regular rhythm. RESP: On mechanical ventilation, Breath sounds equal bilaterally. Distant secondary to habitus. GI: Abdomen soft, obese, non-tender, nondistended. Multiple noted areas of ecchymotic bruising secondary to subcutaneous injections. MSK: No cyanosis, or edema. Pedal edema. Neuro: Moves all extremities with focal deficit right upper extremity. RASS 0. Urinary Catheter: No Vascular Central Line Catheter: No A/P Assessment and Plan ASSESSMENT Acute hypercapnic and hypoxemic respiratory failure (Shiley 6.0 Proximal XLT) CO2 narcosis (resolved) Acute worsening of hypoxia due to lung de-recruitment (05/15/16, resolved) Healthcare associated pneumonia MDR Pseudomonas Enterococcal bacteremia Pseudomonas bacteremia Collection near right subscapularis muscle(On MRI 06/03) - hematoma status post I &D on 06/07 Sepsis CHF exacerbation Tracheostomy company pilot balloon damage -status post exchange with new Shiley 6.0 Proximal XLT 05/02/16 Probable right brachial plexus injury COPD/obesity hypoventilation syndrome Morbid Obesity BMI 60-69 History of pulmonary embolism 4 years ago Chronic atrial fibrillation Anxiety CHF (Echo 2013 EF 40-45%; ECHO 08/2015 showing a grossly normal systolic function) Hypertension Hypothyroidism Depression PLAN NEURO: CO2 narcosis - resolved Critical care polyneuropathy Right upper extremity weakness 05/21-possibly secondary to nerve compression, C6 , C7 (brachial plexus) Pain Anxiety Depression -EMG/ NCV could not be completed on 05/[address] Castillo -Clinically has right brachial plexus involvement. MRI of brachial plexus on 06/03 revealed collection involving right subscapularis muscle- s/p I & D on 06/[address] Velazquez. -Neurology Dr. Cheek-MRI brain, C spine no acute findings. -Venous Doppler RUE 05/28-negative for DVT -Continued PT daily, with strengthening exercises -Continue Seroquel 100mg HS. Continue Zoloft 100mg daily -Decreased pain reg: Tylenol 625mg pain 1-6, Percocet 10/325 pain 7-10 RESP: Acute hypercapnic and hypoxemic respiratory failure Acute lung derecruitment 05/15 with hypoxia Healthcare associated pneumonia Tracheostomy company pilot balloon damage (Shiley 6.0 Proximal XLT) s/p new trach placement 05/02 Chronic Respiratory Failure s/p Tracheostomy 4 years ago COPD/obesity hypoventilation syndrome History of pulmonary embolism 4 years ago Leukocytosis-resolved Pulmonary edema - s/p Bronchoscopy 05/11 - BAL results negative - 10 units aggressive Pulm toilet, trach care - Continue with vent support keep sat >88% on CPAP 10, 45% FIO2. Continue T- piece - Continue DuoNeb q6h REYES + q2h PRN, Pulmicort BID, Singulair 10mg daily - Continue trach collar OOB to chair. CV: CHF exacerbation Pulmonary edema Paroxysmal atrial fibrillation (chronic) Hyperlipidemia -Monitor HR and BP keep MAP>65mmHg -Cardizem 90mg QID, Bumex 1mg daily PO, Lipitor 10g daily, TriCor 40mg by mouth daily -continueon home Xarelto. GI: Super morbid obesity with BMI of 64 Nausea GERD -Regular diet, thin liquids per speech recs -Liver US 06/03: Fatty liver, sludge in gall bladder, splenomegaly, no mechanical obstruction of bile duct noted. -Protonix 20mg BID. Zofran prn for nausea. -Multivitamin daily -Bringing in food, per nurses. Not adherent to hospital diet. Consider call to family to restrict them from bringing food. FEN/RENAL: Hypokalemia Metabolic alkalosis - Monitor renal function , I/O, electrolytes replacement per protocol. - Bumex 1mg PO daily, KCL 40meq Q12hr - Willard was discontinued. we are using a rectal bag to collect urine and keep sacral area clean. no indication for willard catheter. ID: Healthcare associated pneumonia Sepsis New fever-resolved MDRO Cellulitis right arm-resolved Leukocytosis-resolved Enterococcal faecalis bacteremia, Pseudomonas bacteremia (06/02, 06/03) -Wound culture Pseudomonas MDR 04/27 -Sputum culture-Pseudomonas MDR- 04/27 -Urine cx: Proteus Mirabilis 05/05 -Sputum cx: Providencia 05/05 -Bronchoscopy and re-culture 05/10- NG -Wound cx: Proteus, Pseudomonas, Group D Enterococcus- 05/13 -Sputum cx- NG- 05/15 -Blood culture: aerobic and anaerobic bottles - enterococcus faecalis, pseudomonas aeruginosa 06/02, 06/03 -Urine culture: pseudomonas aeruginosa- 06/02 -Wound culture: pseudomonas aeruginosa- 06/02 -Sputum culture: Pseudomonas- 06/02 -Dr. Velazquez performed drainage of collection surgically on 06/07- likely hematoma -Stopped IV Vanc and Zerbaxa on 06/18. (MDR pseudomonas in blood cultures) - colistin nebs stopped 06/27 HEME: History of PE on chronic anticoagulation with Xarelto Iron deficiency anemia and anemia of critical illness. -Monitor CBC, transfused 1U PRBC 06/13 -Xarelto for PE 4 yrs ago. -Continue Xarelto. -Ferrous sulfate 300 mg/q day ENDO: Hypothyroidism -On SSI (Low scale) -Continue levothyroxine 50 mcg po daily -Free T4 1.52 MSK: --agree with podiatry consult. -Continue physical therapy PROPH: -Lower extremity SCDs (L leg only, R ankle cellulitis), continue home xarelto GI prophylaxis- Protonix 20mg BID LINES: - PICC line RUE- No DVT on US 05/02 - removed on 06/03. PIV 's x 2 - Willard catheter removed 07/05. we are using rectal bag to collect urine in an effort to keep sacral and groin area clean and free of skin breakdown. Out of bed with assistance. PT out of bed with vent. OT. Dispo: I am for transfer to intermediate facility, case management facilitation. Until then, he remains in the ICU. q48h labs. Dispo: Level 2 Physician Juana Cisneros MD Jul 09, 2016 17:03
[2016-07-09] MEDS: QUEtiapine FUMARATE 100 MG TAB PO SCH (19:58)
[2016-07-10] VITALS (14 sets, daily range): BP systolic 108–130; BP diastolic 57–69; PULSE 89–100; RESP 24–30; TEMP 98.2–98.8; O2SAT 85–96
[2016-07-10] MEDS: ZOLPIDEM TARTRATE 10 MG TAB PO PRN (00:13)
[2016-07-10 05:04] LABS: HEMATOCRIT 33.2 % (39.0-51.0); MEAN CELL VOLUME 84.8 FL (80.0-100.0); MEAN CORPUSCULAR HEMOGLOBIN 26.1 PG (27.0-34.0); MEAN CORPUSCULAR HGB CONC 30.8 % (32.0-36.0); PLATELET COUNT 287 TH/MM3 (150-450); RED BLOOD COUNT 3.91 MIL/MM3 (4.50-5.90); RED CELL DISTRIBUTION WIDTH 22.9 % (11.6-17.2); REVIEW FLAG FINAL; WHITE BLOOD COUNT 11.8 TH/MM3 (4.0-11.0)
[2016-07-10] MEDS: LEVOTHYROXINE SODIUM 50 MCG TAB PO SCH (05:25)
[2016-07-10] MEDS: INSULIN NovoLIN REGULAR SUPPLEMENTAL SCALE SQ SCH (05:26)
[2016-07-10] MEDS: RESP: ALBUTEROL 2.5 MG/IPRATROPIUM 0.5 MG NEB (PRN) NEB ×2 (06:05→19:42)
[2016-07-10] MEDS: NYSTATIN 100,000 U/GM PWD 15 GM BTL TOPICAL SCH ×2 (08:57→20:24)
[2016-07-10] MEDS: COLLAGENASE OINT 30 GM TUBE TOP SCH (08:57)
[2016-07-10] MEDS: CHLORHEXIDINE 0.12% (ORAL KIT) 15 ML CUP MT SCH ×2 (08:57→20:22)
[2016-07-10] MEDS: ALLOPURINOL 300 MG TAB PO SCH (08:58)
[2016-07-10] MEDS: FERROUS SULFATE 325 MG (65 MG ELEMENTAL IRON) TAB PO SCH (08:58)
[2016-07-10] MEDS: MICONAZOLE NITRATE 2% CREAM 15 GM TOP SCH ×2 (08:58→20:24)
[2016-07-10] MEDS: MONTELUKAST SODIUM 10 MG TAB PO SCH (08:58)
[2016-07-10] MEDS: BUMETANIDE 1 MG TAB PO SCH (08:58)
[2016-07-10] MEDS: PANTOPRAZOLE SOD 20 MG DELAYED RELEASE TAB PO SCH ×2 (08:58→20:23)
[2016-07-10] MEDS: ATORVASTATIN 10 MG TAB PO SCH (08:58)
[2016-07-10] MEDS: DILTIAZEM HCL 90 MG TAB PO SCH ×4 (08:58→22:20)
[2016-07-10] MEDS: FENOFIBRATE 48 MG TAB PO SCH (08:58)
[2016-07-10] MEDS: MULTIVITAMIN TAB PO SCH (08:59)
[2016-07-10] MEDS: RIVAROXABAN 20 MG TAB PO SCH (08:59)
[2016-07-10] MEDS: SODIUM CHLORIDE 0.9% FLUSH 5 ML FLUSH IVF SCH ×2 (08:59→20:23)
[2016-07-10] MEDS: ONDANSETRON ODT 4 MG TAB PO PRN ×2 (08:59→15:30)
[2016-07-10] MEDS: SERTRALINE HCL 100 MG TAB PO SCH (08:59)
[2016-07-10] MEDS: RESP: BUDESONIDE 0.5 MG/2 ML NEB NEB SCH ×2 (09:15→19:42)
[2016-07-10] MEDS: POTASSIUM CHLORIDE 20 MEQ CONTROLLED RELEASE TAB PO SCH ×2 (11:32→22:20)
[2016-07-10] MEDS: ACETAMINOPHEN 325 MG TAB PO PRN (12:02)
--- NOTE | 2016-07-10 13:51 | HHI.FPPN ---
Subjective Remarks Overnight, TREVA. ASC SS. Saturating 8994 percent on T piece. Decreased to 7 L , FiO2 70%. Normotensive. Voiding, stooling without difficulty. Stool was formed, improved from baseline diarrhea. No acute complaints. No change in health from yesterday. Denies nausea, RUE pain, emesis, CP, worsening SOB, or pain RLE. Objective Vitals Vital Signs Date Time Temp Pulse Resp B/P Pulse Ox O2 Delivery O2 Flow Rate FiO2 07/10/16 12:00 98.4 100 28 112/62 85 07/10/16 12:00 99 07/10/16 12:00 85 T-Piece 70 07/10/16 10:00 96 07/10/16 09:16 89 T-piece 6.00 70 07/10/16 08:00 98.6 97 30 111/62 90 07/10/16 08:00 90 T-Piece 70 07/10/16 08:00 97 07/10/16 06:00 94 07/10/16 04:00 91 T-Piece 70 07/10/16 04:00 96 07/10/16 04:00 98.8 96 29 108/63 91 07/10/16 02:00 92 07/10/16 00:00 93 07/10/16 00:00 90 T-Piece 70 07/10/16 00:00 98.4 93 24 130/69 90 07/09/16 22:00 92 07/09/16 20:52 89 T-piece 7.00 70 07/09/16 20:00 98.6 92 30 128/79 91 07/09/16 20:00 91 T-Piece 70 07/09/16 20:00 92 07/09/16 18:00 93 07/09/16 16:00 94 07/09/16 16:00 94 T-Piece 8.00 70 07/09/16 16:00 98.7 95 30 116/59 92 07/09/16 14:00 84 I/O 07/09/16 07/09/16 07/09/16 07/10/16 07/10/16 07/10/16 07:00 15:00 23:00 07:00 15:00 23:00 Intake Total 350 ml 470 ml 500 ml 250 ml Output Total 350 ml 1750 ml 700 ml 450 ml Balance 0 ml -1280 ml -200 ml -200 ml Intake Oral 350 ml 470 ml 500 ml 250 ml IV Total 0 ml 0 ml Output Urine Total 350 ml 1750 ml 700 ml 450 ml # Bowel Movements 0 2 1 0 Result Diagram: 07/10/16 0350 07/09/16 0430 Imaging Pertinent results per A/P Objective Remarks CONST: Morbidly obese male in NAD. DERM: Dry, flaking skin on feet. Flat, erythematous, blanching rash on torso and L shoulder. Well-healing scar R shoulder. R lat malleolus with 1.5 x 1.5 cm skin break down. Area in bandage- c/d/i. Numerous skin folds 2/2 habitus. HEENT: Tracheotomy site c/d/i. Poor dentition CV: Distant heart sounds. RRR RESP: Anterior exam with end expiratory wheezing. Breathing comfortably on T piece GI: Abdomen soft, obese,NT. +BS. Bruises on lower abdomen. MSK: External rotation of RLE and LLE. Patient able to move all his fingers and toes, sensation intact NEURO: CN grossly normal. Procedures 04/24- Started ventilation 05/02- Emergency Trach Exchange 06/03- PICC line removed 06/07- Debridement of RUE abscess (Dr. Velazquez), RUE drain placed. 06/10- RUE drain removal 07/05- Removed from ventilation, continuous T-piece, remained off ventilation since Urinary Catheter: No Vascular Central Line Catheter: No A/P Assessment and Plan 31yo male with super morbid obesity with chronic respiratory failure s/p tracheostomy 4 years ago. Admitted 05/13/16 with respiratory failure. Discharge Planning [facility] ANTONIO. Ideally today 07/10/15 or tomorrow [facility]/11/15 [facility]. Off mechanical ventilation for 96+ hr. Case management working on placement. Dr. Morgan, critical care, pursuing [id number] with [place] [facility] for placement at [facility] Denied placement to [facility]. No recent provided, not mandatory that they explain why declined. Denied placement [facility] (can accommodate up to 6L oxygen, pt using 8L) Problem List: (1) Chronic respiratory failure Status: Chronic Plan: Off mechanical ventilation, CPAP since evening 07/05/15. -Prioritize patient d/c to SNF. Continue Trach collar, OOB to chair. Do not return to vent unless clinically declines per O2 saturations. - Continue Pulmicort BID, Singulair 10mg daily, Symbicort BID, Duonebs q2h PRN (2) Ankle ulcer Status: Acute Plan: Ankle ulcer present on admission, worsened during hospital stay secondary to prolonged immobilization. Wound Cx (07/05): Providencia stuartii. -Podiatry, Wound Care consulted. Continue Optifoam gentle AG dressings, aggressive PT OT, OOB to chair, RLE strengthening internal rotation (3) Nausea Status: Chronic Plan: Chronic. Ddx: GERD vs psychosomatic vs gastroparesis vs med adverse effect. Of note, Zofran use chronically may worsen gastroparesis and paroxysmally worse nausea - Zofran ODT PRN, Protonix 20mg BID REYES (4) Bacteremia Status: Resolved Plan: -Resolved. ID no longer following. History of cellulitis chest wall, yeast UTI, HCAP during this hospitalization - Colistin 75mg q8h NEB, Acetaminophen 325mg PRN fever Abx History Zosyn 4.5gm IV q6h (04/24 - 04/29) Levaquin 750mg IV q24h (04/24-04/30) Zerbaxa 1.5 g IV q8h (04/29 - 05/07) Vancomycin IV (04/24 - 05/06) Ceftriaxone IV (05/07 - 05/25) Linezolid 600 mg PO BID (05/06 - 05/13) Zosyn 3.375 q6h (06/04- 06/05) Vancomycin IV daily goal trough 15-20, (06/03 -06/18) Zerbaxa IV q8h (06/05-06/18) (5) Hematoma Status: Acute Plan: Initial Impression: RUE weakness secondary to hematoma vs C6/C7 neuropathy. S/p I&D by Dr. Velazquez (06/07/16). Small hematoma found during procedure inconsistent with 6cm x 6cm x 8cm abscess per MRI brachial plexus. L hemispheric pathology and seizure r/o as cause RUE weakness. Unable to tolerate EMG. - Daily dressing changes with xeroform and primapore - Daily PT/OT, as tolerated. PT targeting RUE weakness. Imaging: - US negative for DVT (05/28) - MRI brain (04/28) no acute intracranial process - MRI C-spine (05/29): grossly wnl - EEG (05/29): diffuse mild encephalopathy vs normal Stage 2 sleep - MRI brachial plexus (06/03): "Complex multiloculated soft tissue and cystic mass 5.5 x 6 x 7.8 cm involving subscapularis muscle along anterior R scapula - Pathology report (06/07): fragments of blood clot admixed with few minute fragments of adipose and skeletal muscle tissue (6) CHF (congestive heart failure) Status: Chronic Plan: Suspected HF with poor EF, though unable to confirm via ECHO (04/25) due to poor imaging. BNP elevated on admission, downtrended. Maximize hypertension control and rate control for history A. fib, currently in NSR Plan Bumex 1mg PO daily + 40 KCl BID, 1.5L fluid restriction, Cardiazem 90mg QID, Xarelto 20mg PO daily (7) Stable medical conditions Status: Chronic Plan: NORMOCYTIC ANEMIA - Ferrous sulfate 325mg PO daily, Multivitamin 1 tab PO daily HYPERLIPIDEMIA - Atorvastatin 10mg daily, Tricor 48mg daily MDD: Pt reports stable mood; some anhedonia suspected. Previously, refusing meals, shower, PT - Sertraline 200 mg PO daily, Seroquel 100mg HS INSOMNIA - Zolpidem 5mg HS PRN. Attempted discontinuation, patient requested placed back on board. GOUT - Allopurinol 300mg daily HYPOTHYROIDISM 08/2015- TSH low, free T4 grossly wnl (05/27/16) - Synthroid 50 mcg PO daily FUNGAL INFECTION - Nystatin powder and miconazole creme to skin folds MORBID OBESITY WITH BMI 55-59 -see above plan for mechanical ventilation (8) Nutrition, metabolism, and development symptoms Status: Acute Plan: FEN: Fluids: PO (Limited 1.5L/day) Electrolytes: +40KCl BID. Chronically hypokalemic, replete per protocol Nutrition: 2Kcal heart healthy diet. Transitioned to oral feeds (05/29). Wt: Admission: 480 lbs family bringing in food. Note placed on door to prohibit. PPX GI ppx: Protonix 20mg BID DVT ppx: Lovenox 150mg BID Pain: Ibuprofen when necessary pain 7-10, may require prior to PT, have discontinued opioids as not indicated Bowel: Senna 1 tab HS PRN SDW: Dr. Jackson, Case Management Problem Qualifiers (1) Chronic respiratory failure: Qualified Code: J96.10 - Chronic respiratory failure, unspecified whether with hypoxia or hypercapnia (2) Ankle ulcer: Qualified Code: L97.311 - Ankle ulcer, right, limited to breakdown of skin (3) CHF (congestive heart failure): Qualified Code: I50.9 - Acute on chronic congestive heart failure, unspecified congestive heart failure type Holley Baires MD R1 Jul 10, 2016 13:51 Holley Baires MD R1 Jul 10, 2016 13:51
--- NOTE | 2016-07-10 16:20 | HHI.CCPN ---
Subjective Remarks/Hospital Course 31 year old morbidly obese (BMI 68) male with chronic respiratory failure s/p tracheostomy 4 years ago, atrial fibrillation and pulmonary embolism on Xarelto , COPD, CHF and h/o HTN. He presented from [facility] with low oxygen saturation apparently his oxygen saturation was 82% on RA. He was placed back on 6L of oxygen via his trach mask and given a breathing treatment, initially improved however he started drifting back to low 80s again. Chest x-ray showed bibasilar infiltrates and pulmonary edema. Patient was [place] [facility] and was started on IV steroids IV vancomycin and Zosyn and Levaquin for healthcare associated pneumonia. After starting ACV, patient was more awake but there was a significant amount of air leak around his tracheostomy. Patient has had a Shiley 6.0 Proximal XLT, but the company pilot balloon had been cut off. 05/02 the patient became acutely hypoxemic with a large cuff leak, underwent emergency trach exchange at bedside by Dr. Macias. FiO2 65% PEEP 14 05/13 Patient is on ventilator via trach, on Fentanyl infusion however he is awake and alert. On PRVC with FIO2 40%. Afebrile. 05/14 No acute events overnight. Tmax 99.8. Patient is awake, alert on ventilator via trach still requiring increase O2. On PRVC with PEEP: 10 and FIO2 70%. 05/15 Pt acutely desaturated after he was found. Saturation down to 70% on 100 % oxygen. Bag and mask ventilation carried out, with eventual improvement on oxygen saturation to 85%. Patient was placed on PC/AC mode of ventilation, with PEEP of 15 and instructed to pressure of 30. Eventually oxygen saturation improved to 95%. Lasix him today as the chest x-ray from today shows increasing bilateral infiltrate and pulmonary edema. Sputum culture will be sent 05/16 Patient is on Fentanyl and Diprivan infusion but awake and alert. Afebrile. On PC/AC with PEEP:15, IP: 22, IT:1.3 and FIO2 50% 05/17 Patient is off Diprivan and remains on Fentanyl infusion for sedation. On PC/AC with PEEP: down 10 and FIO2 40%. Afebrile. 05/18 Patient remains on ventilator via trach on PC/AC with PEEP:12, FIO2 40%, IP:22, IT:1.0. On Fentanyl infusion 05/19 No acute events overnight. On Fentanyl infusion but awake and alert. Afebrile. 05/20 Tolerating C Pap 17/12 FIO2 40, sats 98%. RSBI in 20s, appears can be weaned further. Afebrile. Speech therapy evaluated and ok for regular diet. Starting with full liquid. 05/21 Will wean PSV to 15/10. Tolerated full liquids, will advance to regular diet per speech recs. 05/22 On PSV 15/10 FIO2 40 with sats 92%. Smiling today. Glad to be eating regular food again. 05/23 No acute events overnight. Remains on CPAP with PS 15, PEEP:10 and FIO2 40 %. Afebrile. Off Fentanyl drip. Afebrile. Awake and alert. 05/24 Patient is on CPAP 06/06 with 40% FIO2. Afebrile. Awake and alert, on no sedation. 05/25 No acute events overnight. Patient was placed back on PC/AC overnight. Tolerated CPAP trials during day yesterday. Awake and alert. On no drips. Afebrile. 05/26 Afebrile. Tmax 98.6. Today the patient complained of nausea requiring Zofran. The patient has a lack of an appetite, with noted hypoglycemia early this a.m. blood glucose level 69. Patient tolerating CPAP well greater than 12 hours in the last 24 hours. 05/27 The patient tolerated CPAP for over 36 hours, O2 sat a knee 94% on FIO2 40 %. The patient had an increase in appetite. The patient continues on full liquid diet. 05/28 The patient declined physical therapy treatment, yesterday and also overnight declined to be moved by nursing staff. The patient refused dinner last evening, of note patient was reevaluated by speech therapy and can consume a heart healthy diet with thin liquids. The patient continues on physical therapy for strengthening exercises of all extremities specifically noted right upper extremity continues to be weak with gross fibrillations noted in hand and forearm. 05/29 Afebrile. No change in right upper extremity weakness. The patient was seen by neurology yesterday plan for MRI today if possible in hospital MRI, and EMG studies. No complaints overnight. Patient continues to refuse to have activities performed, movement in bed. The patient appears to be depressed, psychiatry consulted. 05/30: Patient alert awake on CPAP. Following commands. Psych agrees the patient is depressed. MRI brain no acute findings 05/31: Awake alert. on PS 15/8. EMG could not be completed due to patient becoming anxious. Otherwise no acute events reported overnight 06/01: Remains PS from 11/02. Right upper extremity weakness persists. EMG to be repeated on Friday. Will need MRI of the brachial plexus. Chest x-ray is unchanged 06/02: States that "not feeling well". Febrile to 101.5. White count increasing but still within the normal range. Pancultured. We'll request ID reevaluation. 06/03: Resting in bed on C Pap/pressure support via tracheostomy. One out of 2 sets of blood cultures sent on 06/02 positive for gram-positive cocci. 06/04: Resting in bed on mechanical ventilation via tracheostomy. Afebrile overnight. MRI brachial plexus (06/03) revealed a collection near the right subscapularis muscle, possibly an abscess. Discussed with ID, orthopedics Dr. Velazquze consulted. I discussed the case with Dr. Velazquez this morning who feels this is probably an abscess however would be difficult to access surgically and he plans to set up percutaneous drainage by interventional radiology. 06/05: Resting in bed on mechanical ventilation via tracheostomy. Remains afebrile. Reportedly IR cannot do percutaneous drainage of collection involving right subscapularis muscle. 06/06: Resting in bed on mechanical ventilation via tracheostomy. Can actually speak around the trach. Remains afebrile. Dr. Velazquez evaluated patient and is scheduling surgery for drainage of fluid collection involving the right subscapularis muscle. 06/07: Resting in bed on mechanical ventilation via tracheostomy. Awaiting surgery today. 06/08: Status post I&D of collection near right shoulder/subscapularis on 06/[address] Velazqeuz. This morning patient is awake and alert complained of some pain at the surgical site. Remains on mechanical ventilation on C Pap/pressure support. 06/09: Sleeping, arousable. On mechanical ventilation with C Pap/pressure support overnight. Labs pending 06/10 No acute events overnight. On CPAP with PS 12, PEEP: 8, FIO2 40%. Afebrile. 06/11 Patient remains on CPAP with PS 10, PEEP: 8 and FIO2 40%. Afebrile. 06/12: No acute events overnight. Remains on CPAP 10/5. No specific complaints 06/13: Tolerating C Pap 10 over 5. Awake and alert following commands. Hemoglobin dropped from 8.6-7.1, no obvious bleeding. Sodium 140-149. Will give 1 unit of PRBC with 1 mg IV Bumex 06/14 No acute events overnight. On CPAP with PS 10, PEEP:5 and FIO2 50%. Afebrile. 06/15 No acute events overnight. Remains on CPAP 10/5 with 40% FIO2. Afebrile. 06/16 Patient remains on ventilator via trach on CPAP with PS 10, PEEP:5 and FIO2 40%. 06/17: Resting in bed on mechanical ventilation via tracheostomy. Feeling nauseous. 06/18: OOB in reclining chair. Reporting low back and leg pain that is positional. Continued nausea, denies emesis. CPAP w PS 5 FIO2 40%. Will attempt Tpiece trial today. Discontinue Vanc + Zerbaxa today per ID 06/19: No acute events overnight. Afebrile. HTN to 160/80. CPAP with PS 10. PEEP 10 FIO2 45. Failed Tpiece trial yesterday- desaturated to mid 70s. Denies SOB/CP. Nausea is less than before. Bed is broken and patient would like the mattress to "rotate". Per nursing, they are working to fix it. 06/20: No acute events overnight. Afebrile. HTN to 145/70. CPAP with PEEP 10 FIO2 45, with saturation 93=94%. Pt has no acute complaints. Denies SOB/CP/ Nausea. Didn't know why he threw up during PT yesterday. Denies pain. Still having diarrhea (chronic years in duration issue). Was eating Pringles in bed. Per nursing, does not eat hospital food- waits for mother to bring him food. He was counseled to eat the hospital food which is healthier for him and that he needs to stop eating food brought in by his mother. 06/21: Remains on mechanical ventilation, CPAP with pressure support. 06/22: On mechanical ventilation on C Pap with pressure support. Denies any nausea or abdominal pain. Appears comfortable. 06/23: Resting in bed on mechanical ventilation with C Pap/pressure support +10/ +5. Denies any shortness of breath denies any abdominal pain or nausea currently. 06/24: Refusing to get OOB with physical therapy today. I had a long discussion with the patient about the fact that he has been inpatient for months now and he is severely deconditioned. He must get out of bed with PT to clinically improve, and deconditioning is a major factor in his chronic respiratory failure. He denies chest pain or SOB. does endorse some nausea today. 06/25: tolerated 4 hours OOB yesterday with 4 hours of trach collar. plan to go 6 hours today. 06/26: tolerated OOB to chair 5 hours yesterday but only 1.5hr of trach collar due to hypoxia. 06/27: tolerated OOB to chair for 6 hours yesterday and almost 5 hours of trach collar. daily, he continues to be very resistant to participating in PT and getting OOB. He again asks if he can lay in bed today. 06/28: tolerated 6 hours of trach collar yesterday. OOB for almost 8 hours. 06/29: continues to tolerate daily trach collar trials. OOB for 8 hours again yesterday. 06/30: tolerated 8 hours of trach collar yesterday. OOB for 7 hours. can do trach collar as tolerated. he continues to make attempts to refuse physical therapy and does not wish to participate in his care. 07/01: no changes. did well with 8 hours of trach collar and 8-9 hours of OOB. will attempt to stand and possibly walk in place today. this certainly is a large undertaking given how deconditioned he is, but I think the mobilization will help to continue our rehabilitation efforts. will be taxing on medical staff to physically assist him. This is likely something we can only do on a weekly basis. 07/02: took 3 steps yesterday (first time out of bed in almost 3 months). otherwise, tolerating daily t-piece with nightly CPAP. plan for OOB and steps again today. trach collar as tolerated. diamox x 3 doses for worsening contraction alkalosis. net -900cc/24h. 07/03: OOB and a few steps again yesterday. trying to push him to longer t-piece intervals with fewer rests on CPAP. OOB all day again today. net euvolemic yesterday. lab holiday today. 07/04: to chair today. trach collar as tolerated. I really think he could go most of the night if not all night on trach collar, but he keeps insisting on going back on the vent to rest. brought to my attention by family practice team for ankle skin breakdown. agree with podiatry consult. Subjective: 07/05: OOB to chair again today. tolerated trach collar yesterday. CPAP at night. keeps asking to go back on rate on vent overnight. I do not think medically he needs this. podiatry saw patient and recommended dressing and elevation for foot. 07/06: on trach collar all night, not on the vent. this is a huge improvement. K 6.0 on bmp this AM, but Cr at baseline. will recheck. 07/07: remains off the vent on trach collar. weaning fio2. OOB again. recheck K yesterday 6.0--> 3.7, so likely spurious lab. I think tomorrow if he remains on trach collar, he is safe to go back to his facility. 07/08: No acute issues overnight. Plans for transfer to his facility with case management assistance. 07/09: Afebrile.The patient continues on trach collar. After readjustment in the bed early this a.m., the patient required increased O2 requirements to FiO2 of 90% which was decreased back down to 70% within an hour. No acute respiratory distress was noted. 07/10: Afebrile.No acute issues overnight. Patient continues on trach collar without any issues,O2 at 6-8 L/m. Objective Vital Signs Date Time Temp Pulse Resp B/P Pulse Ox O2 Delivery O2 Flow Rate FiO2 07/10/16 12:00 98.4 100 28 112/62 85 07/10/16 12:00 T-Piece 70 07/10/16 09:16 6.00 Intake and Output 07/09/16 07/09/16 07/10/16 08:00 16:00 00:00 Intake Total 350 ml 470 ml 500 ml Output Total 350 ml 1750 ml 700 ml Balance 0 ml -1280 ml -200 ml Result Diagram: 07/10/16 0350 07/09/16 0430 Imaging MRI 06/20/16: No official reading. Preliminary reading suggests periventricular white matter changes at basal ganglia and no evidence ischemia CXR 06/17/16: Poor penetration. Rotated image. Unable to visualize lung bases. Possible atelectasis vs infiltrate R worse than L. Objective Remarks GEN: 31yo on trach collar, awakens and follows commands. Super morbidly obese. SKIN: Warm and dry. HEAD: Normocephalic. EYES: No scleral icterus. No injection or drainage. NECK: obese with large neck circumference, trachea midline. Shiley 6.0 Proximal XLT, (new trach placed 05/02/16) CV: normal rate, regular rhythm. RESP: On mechanical ventilation, Breath sounds equal bilaterally. Distant secondary to habitus. GI: Abdomen soft, obese, non-tender, nondistended. MSK: No cyanosis, or edema. Pedal edema. Neuro: Moves all extremities with focal deficit right upper extremity. RASS 0. A/P Assessment and Plan ASSESSMENT Acute hypercapnic and hypoxemic respiratory failure (Shiley 6.0 Proximal XLT) CO2 narcosis (resolved) Acute worsening of hypoxia due to lung de-recruitment (05/15/16, resolved) Healthcare associated pneumonia MDR Pseudomonas Enterococcal bacteremia Pseudomonas bacteremia Collection near right subscapularis muscle(On MRI 06/03) - hematoma status post I &D on 06/07 Sepsis CHF exacerbation Tracheostomy company pilot balloon damage -status post exchange with new Shiley 6.0 Proximal XLT 05/02/16 Probable right brachial plexus injury COPD/obesity hypoventilation syndrome Morbid Obesity BMI 60-69 History of pulmonary embolism 4 years ago Chronic atrial fibrillation Anxiety CHF (Echo 2013 EF 40-45%; ECHO 08/2015 showing a grossly normal systolic function) Hypertension Hypothyroidism Depression PLAN NEURO: CO2 narcosis - resolved Critical care polyneuropathy Right upper extremity weakness 05/21-possibly secondary to nerve compression, C6 , C7 (brachial plexus) Pain Anxiety Depression -EMG/ NCV could not be completed on 05/[address] Castillo -Clinically has right brachial plexus involvement. MRI of brachial plexus on 06/03 revealed collection involving right subscapularis muscle- s/p I & D on 06/[address] Velazquez. -Neurology Dr. Cheek-MRI brain, C spine no acute findings. -Venous Doppler RUE 05/28-negative for DVT -Continued PT daily, with strengthening exercises -Continue Seroquel 100mg HS. Continue Zoloft 100mg daily -Decreased pain reg: Tylenol 625mg pain 1-6, Percocet 10/325 pain 7-10 RESP: Acute hypercapnic and hypoxemic respiratory failure Acute lung derecruitment 05/15 with hypoxia Healthcare associated pneumonia Tracheostomy company pilot balloon damage (Shiley 6.0 Proximal XLT) s/p new trach placement 05/02 Chronic Respiratory Failure s/p Tracheostomy 4 years ago COPD/obesity hypoventilation syndrome History of pulmonary embolism 4 years ago Leukocytosis-resolved Pulmonary edema - s/p Bronchoscopy 05/11 - BAL results negative - 10 units aggressive Pulm toilet, trach care - Continue with vent support keep sat >88% on CPAP 10, 45% FIO2. Continue T- piece - Continue DuoNeb q6h REYES + q2h PRN, Pulmicort BID, Singulair 10mg daily - Continue trach collar OOB to chair. CV: CHF exacerbation Pulmonary edema Paroxysmal atrial fibrillation (chronic) Hyperlipidemia -Monitor HR and BP keep MAP>65mmHg -Cardizem 90mg QID, Bumex 1mg daily PO, Lipitor 10g daily, TriCor 40mg by mouth daily -continueon home Xarelto. GI: Super morbid obesity with BMI of 64 Nausea GERD -Regular diet, thin liquids per speech recs -Liver US 06/03: Fatty liver, sludge in gallbladder, splenomegaly, no mechanical obstruction of bile duct noted. -Protonix 20mg BID. Zofran prn for nausea. -Multivitamin daily -Bringing in food, per nurses. Not adherent to hospital diet.Call to family to restrict them from bringing food. FEN/RENAL: Hypokalemia Metabolic alkalosis - Monitor renal function , I/O, electrolytes replacement per protocol. - Bumex 1mg PO daily, KCL 40meq Q12hr - Willard was discontinued. we are using a rectal bag to collect urine and keep sacral area clean. no indication for willard catheter. ID: Healthcare associated pneumonia Sepsis New fever-resolved MDRO Cellulitis right arm-resolved Leukocytosis-resolved Enterococcal faecalis bacteremia, Pseudomonas bacteremia (06/02, 06/03) -Wound culture Pseudomonas MDR 04/27 -Sputum culture-Pseudomonas MDR- 04/27 -Urine cx: Proteus Mirabilis 05/05 -Sputum cx: Providencia 05/05 -Bronchoscopy and re-culture 05/10- NG -Wound cx: Proteus, Pseudomonas, Group D Enterococcus- 05/13 -Sputum cx- NG- 05/15 -Blood culture: aerobic and anaerobic bottles - enterococcus faecalis, pseudomonas aeruginosa 06/02, 06/03 -Urine culture: pseudomonas aeruginosa- 06/02 -Wound culture: pseudomonas aeruginosa- 06/02 -Sputum culture: Pseudomonas- 06/02 -Dr. Velazquez performed drainage of collection surgically on 06/07- likely hematoma -Stopped IV Vanc and Zerbaxa on 06/18. (MDR pseudomonas in blood cultures) - colistin nebs stopped 06/27 HEME: History of PE on chronic anticoagulation with Xarelto Iron deficiency anemia and anemia of critical illness. -Monitor CBC, transfused 1U PRBC 06/13 -Xarelto for PE 4 yrs ago. -Continue Xarelto. -Ferrous sulfate 300 mg/q day ENDO: Hypothyroidism -On SSI (Low scale) -Continue levothyroxine 50 mcg po daily -Free T4 1.52 MSK: --agree with podiatry consult. -Continue physical therapy PROPH: -Lower extremity SCDs (L leg only, R ankle cellulitis), continue home xarelto GI prophylaxis- Protonix 20mg BID LINES: - PICC line RUE- No DVT on US 05/02 - removed on 06/03. PIV 's x 2 - Willard catheter removed 07/05. we are using rectal bag to collect urine in an effort to keep sacral and groin area clean and free of skin breakdown. Out of bed with assistance. PT out of bed with vent. OT. Dispo: Scheduled to transfer retirement facility, case management facilitation. Awaiting [facility] phone call , for decision for LTAC. Until then , he remains in the ICU. q48h labs. Dispo: Level 2 Physician Juana Cisneros MD Jul 10, 2016 16:20
[2016-07-10] MEDS ORDERED: FERR325T PO (17:48)
[2016-07-10] MEDS ORDERED: SERO100T PO (17:48)
[2016-07-10] MEDS ORDERED: ZOLO100T PO (17:48)
[2016-07-10] MEDS ORDERED: BUME1TAB PO (17:48)
[2016-07-10] MEDS ORDERED: SYMB160A INH (17:48)
[2016-07-10] MEDS ORDERED: CHLO.12%30 MT (17:48)
[2016-07-10] MEDS ORDERED: POTA20TA5 PO (17:50)
--- NOTE | 2016-07-10 17:54 | HHI.DCPOC ---
Discharge Care Plan Diagnosis: (1) Morbid obesity with BMI of 60.0-69.9, adult (2) Tracheostomy present (3) Chronic respiratory failure (4) Pressure ulcer of right leg, stage 2 (5) Hypokalemia (6) CHF (congestive heart failure) (7) Diarrhea (8) Hematoma (9) Paroxysmal a-fib (10) MDD (major depressive disorder) (11) Nausea (12) Insomnia (13) Normocytic anemia (14) Weakness of right upper extremity (15) Gout (16) Hyperlipidemia (17) Hypothyroidism (18) HTN (hypertension) Goals to Promote Your Health * To prevent worsening of your condition and complications * To maintain your health at the optimal level Directions to Meet Your Goals Take your medications as prescribed Follow your dietary instruction Follow activity as directed Keep your appointments as scheduled Take your immunizations and boosters as scheduled If your symptoms worsen call your PCP, if no PCP go to Urgent Care Center or Emergency Room Smoking is Dangerous to Your Health. Avoid second hand smoke Call the 24-hour hour crisis hotline for domestic abuse at Holley Baires MD R1 Jul 10, 2016 17:54
[2016-07-10] MEDS: QUEtiapine FUMARATE 100 MG TAB PO SCH (20:23)
[2016-07-11] VITALS (14 sets, daily range): BP systolic 109–133; BP diastolic 57–72; PULSE 82–100; RESP 20–33; TEMP 98.1–98.6; O2SAT 89–98
[2016-07-11] MEDS: ZOLPIDEM TARTRATE 10 MG TAB PO PRN ×2 (00:28→20:33)
[2016-07-11] MEDS: INSULIN NovoLIN REGULAR SUPPLEMENTAL SCALE SQ SCH (05:43)
[2016-07-11] MEDS: LEVOTHYROXINE SODIUM 50 MCG TAB PO SCH (05:43)
[2016-07-11] MEDS: RESP: BUDESONIDE 0.5 MG/2 ML NEB NEB SCH ×2 (08:01→20:26)
[2016-07-11] MEDS: RESP: ALBUTEROL 2.5 MG/IPRATROPIUM 0.5 MG NEB (PRN) NEB (08:01)
[2016-07-11] MEDS: CHLORHEXIDINE 0.12% (ORAL KIT) 15 ML CUP MT SCH ×2 (08:35→20:32)
[2016-07-11] MEDS: SERTRALINE HCL 100 MG TAB PO SCH (08:35)
[2016-07-11] MEDS: NYSTATIN 100,000 U/GM PWD 15 GM BTL TOPICAL SCH ×2 (08:35→20:36)
[2016-07-11] MEDS: DILTIAZEM HCL 90 MG TAB PO SCH ×4 (08:35→20:33)
[2016-07-11] MEDS: FERROUS SULFATE 325 MG (65 MG ELEMENTAL IRON) TAB PO SCH (08:36)
[2016-07-11] MEDS: MULTIVITAMIN TAB PO SCH (08:36)
[2016-07-11] MEDS: FENOFIBRATE 48 MG TAB PO SCH (08:36)
[2016-07-11] MEDS: ATORVASTATIN 10 MG TAB PO SCH (08:36)
[2016-07-11] MEDS: PANTOPRAZOLE SOD 20 MG DELAYED RELEASE TAB PO SCH ×2 (08:36→20:33)
[2016-07-11] MEDS: ALLOPURINOL 300 MG TAB PO SCH (08:36)
[2016-07-11] MEDS: RIVAROXABAN 20 MG TAB PO SCH (08:36)
[2016-07-11] MEDS: SODIUM CHLORIDE 0.9% FLUSH 5 ML FLUSH IVF SCH ×2 (08:37→20:34)
[2016-07-11] MEDS: MICONAZOLE NITRATE 2% CREAM 15 GM TOP SCH ×2 (08:38→20:36)
[2016-07-11] MEDS: COLLAGENASE OINT 30 GM TUBE TOP SCH (08:38)
[2016-07-11] MEDS: MONTELUKAST SODIUM 10 MG TAB PO SCH (09:00)
--- NOTE | 2016-07-11 11:10 | HHI.FPPN ---
Subjective Remarks Overnight, TREVA. AFVSS. On 10L oxygen at present via T-piece, increased from yesterday (7L). Satting 88% in room on interview. Pt resting comfortably during exam. Breathing without difficulty on T-piece. Objective Vitals Vital Signs Date Time Temp Pulse Resp B/P Pulse Ox O2 Delivery O2 Flow Rate FiO2 07/11/16 10:00 82 07/11/16 08:06 94 T-piece 10.00 70 07/11/16 08:00 98.1 92 20 109/57 93 07/11/16 08:00 82 07/11/16 08:00 93 T-Piece 70 07/11/16 06:00 93 07/11/16 04:00 98.4 95 27 112/58 89 07/11/16 04:00 95 07/11/16 04:00 89 T-Piece 70 07/11/16 02:00 93 07/11/16 00:00 89 T-Piece 70 07/11/16 00:00 98.2 92 25 114/63 89 07/11/16 00:00 92 07/10/16 22:00 92 07/10/16 20:00 91 07/10/16 20:00 98.4 91 29 109/61 96 07/10/16 20:00 96 T-Piece 70 07/10/16 19:42 94 Trach Collar 7.00 70 07/10/16 18:00 89 07/10/16 16:00 90 07/10/16 16:00 93 T-Piece 70 07/10/16 16:00 98.2 90 28 112/57 85 07/10/16 14:00 95 07/10/16 12:00 98.4 100 28 112/62 85 07/10/16 12:00 99 07/10/16 12:00 85 T-Piece 70 I/O 07/10/16 07/10/16 07/10/16 07/11/16 07/11/16 07/11/16 07:00 15:00 23:00 07:00 15:00 23:00 Intake Total 250 ml 360 ml 250 ml 250 ml Output Total 450 ml 1750 ml 550 ml 400 ml Balance -200 ml -1390 ml -300 ml -150 ml Intake Oral 250 ml 360 ml 250 ml 250 ml IV Total 0 ml Output Urine Total 450 ml 1750 ml 550 ml 400 ml # Bowel Movements 0 2 0 1 Result Diagram: 07/10/16 0350 07/09/16 0430 Imaging see pertinent in A/P Objective Remarks CONST: Morbidly obese male in NAD. DERM: Flat, erythematous, blanching rash on bilateral arms, forearms, deltoids, upper torso. Well-healing scar R shoulder. White flaky patch of skin on R arm ~ 2inches diameter. R lat malleolus with 1.5 x 1.5 cm skin break down. Area in bandage- c/d/i. Numerous skin folds 2/2 habitus. Dry, flaking skin on feet. HEENT: Tracheotomy site c/d/i. Poor dentition CV: Distant heart sounds. RRR RESP: Anterior exam with end expiratory wheezing. Breathing comfortably on T piece GI: Abdomen soft, obese,NT. +BS. Bruises on lower abdomen. MSK: External rotation of RLE and LLE NEURO: CN grossly normal. Procedures 04/24- Started ventilation 05/02- Emergency Trach Exchange 06/03- PICC line removed 06/07- Debridement of RUE abscess (Dr. Velazquez), RUE drain placed. 06/10- RUE drain removal 07/05- Removed from ventilation, continuous T-piece, remained off ventilation since A/P Assessment and Plan 31yo male with super morbid obesity with chronic respiratory failure s/p tracheostomy 4 years ago. Admitted 05/13/16 with respiratory failure. Discharge Planning LUIS ANTONIO. Ideally today 07/11/15 or tomorrow 07/12/15 to technician terminal and repeater care facility. Off mechanical ventilation since 07/05/15. On T-piece using 8-10L. Case management working on placement. Dr. Morgan, critical care, pursuing [id number] with [employer] for placement at [facility] (refused to cover cost of admission, SNF in their approved list) Denied placement to [facility]. No recent provided, not mandatory that they explain why declined. Denied placement [facility] (can accommodate up to 6L oxygen, pt using 8L) sdw: Dr Mccain dw: Dr Watts Problem List: (1) Fungal infection Status: Acute Plan: Dermatitis, present for some days to weeks (need chart review), spreading from L shoulder to bilateral arms/torso. Initially along L shoulder and torso under area where tubing for ventilator ran. Antifungal powders since admission. -Add oral diflucan 200mg daily -Wound culture ordered, follow culture -Continue nystatin powder -Continue myconizole creme (2) Chronic respiratory failure Status: Chronic Plan: Off mechanical ventilation, CPAP since evening 07/05/15. -Prioritize patient d/c to SNF. Continue Trach collar, OOB to chair. Do not return to vent unless clinically declines per O2 saturations. - Continue Pulmicort BID, Singulair 10mg daily, Symbicort BID, Duonebs q2h PRN (3) Ankle ulcer Status: Acute Plan: Ankle ulcer present on admission, worsened during hospital stay secondary to prolonged immobilization. Wound Cx (07/05): Providencia stuartii. -Podiatry, Wound Care consulted. Continue Optifoam gentle AG dressings, aggressive PT OT, OOB to chair, RLE strengthening internal rotation (4) Nausea Status: Chronic Plan: Chronic. Ddx: GERD vs psychosomatic vs gastroparesis vs med adverse effect. Of note, Zofran use chronically may worsen gastroparesis and paroxysmally worse nausea - Zofran ODT PRN, Protonix 20mg BID REYES (5) Hematoma Status: Acute Plan: Initial Impression: RUE weakness secondary to hematoma vs C6/C7 neuropathy. S/p I&D by Dr. Velazquez (06/07/16). Small hematoma found during procedure inconsistent with 6cm x 6cm x 8cm abscess per MRI brachial plexus. L hemispheric pathology and seizure r/o as cause RUE weakness. Unable to tolerate EMG. - Daily dressing changes with xeroform and primapore - Daily PT/OT, as tolerated. PT targeting RUE weakness. Imaging: - US negative for DVT (05/28) - MRI brain (04/28) no acute intracranial process - MRI C-spine (05/29): grossly wnl - EEG (05/29): diffuse mild encephalopathy vs normal Stage 2 sleep - MRI brachial plexus (06/03): "Complex multiloculated soft tissue and cystic mass 5.5 x 6 x 7.8 cm involving subscapularis muscle along anterior R scapula - Pathology report (06/07): fragments of blood clot admixed with few minute fragments of adipose and skeletal muscle tissue (6) CHF (congestive heart failure) Status: Chronic Plan: Suspected HF with poor EF, though unable to confirm via ECHO (04/25) due to poor imaging. BNP elevated on admission, downtrended. Maximize hypertension control and rate control for history AValente barragan, currently in NSR Plan Bumex 1mg PO daily + 40 KCl BID, 1.5L fluid restriction, Cardiazem 90mg QID, Xarelto 20mg PO daily (7) Stable medical conditions Status: Chronic Plan: NORMOCYTIC ANEMIA - Ferrous sulfate 325mg PO daily, Multivitamin 1 tab PO daily HYPERLIPIDEMIA - Atorvastatin 10mg daily, Tricor 48mg daily MDD: Pt reports stable mood; some anhedonia suspected. Previously, refusing meals, shower, PT - Sertraline 200 mg PO daily, Seroquel 100mg HS INSOMNIA - Zolpidem 5mg HS PRN. Attempted discontinuation, patient requested placed back on board. GOUT - Allopurinol 300mg daily HYPOTHYROIDISM 08/2015- TSH low, free T4 grossly wnl (05/27/16) - Synthroid 50 mcg PO daily MORBID OBESITY WITH BMI 55-59 -see above plan for mechanical ventilation BACTEREMIA -Resolved. ID no longer following. History of cellulitis chest wall, yeast UTI, HCAP during this hospitalization - Colistin 75mg q8h NEB, Acetaminophen 325mg PRN fever Abx History Zosyn 4.5gm IV q6h (04/24 - 04/29) Levaquin 750mg IV q24h (04/24-04/30) Zerbaxa 1.5 g IV q8h (04/29 - 05/07) Vancomycin IV (04/24 - 05/06) Ceftriaxone IV (05/07 - 05/25) Linezolid 600 mg PO BID (05/06 - 05/13) Zosyn 3.375 q6h (06/04- 06/05) Vancomycin IV daily goal trough 15-20, (06/03 -06/18) Zerbaxa IV q8h (06/05-06/18) (8) Nutrition, metabolism, and development symptoms Status: Acute Plan: FEN: Fluids: PO (Limited 1.5L/day) Electrolytes: +40KCl BID. Chronically hypokalemic, replete per protocol Nutrition: 2Kcal heart healthy diet. Transitioned to oral feeds (11/30). Wt: Admission: 480 lbs family bringing in food. Note placed on door to prohibit. PPX GI ppx: Protonix 20mg BID DVT ppx: Lovenox 150mg BID Pain: Ibuprofen when necessary pain 7-10, may require prior to PT, have discontinued opioids as not indicated Bowel: Senna 1 tab HS PRN Problem Qualifiers (1) Chronic respiratory failure: Qualified Code: J96.10 - Chronic respiratory failure, unspecified whether with hypoxia or hypercapnia (2) Ankle ulcer: Qualified Code: L97.311 - Ankle ulcer, right, limited to breakdown of skin (3) CHF (congestive heart failure): Qualified Code: I50.9 - Acute on chronic congestive heart failure, unspecified congestive heart failure type Holley Baires MD R1 Jul 11, 2016 11:10 congestive heart failure type Holley Baires MD R1 Jul 11, 2016 11:10
[2016-07-11] MEDS: FLUCONAZOLE 200 MG TAB PO SCH (12:00)
[2016-07-11] MEDS: BUMETANIDE 1 MG TAB PO SCH (12:35)
[2016-07-11] MEDS: POTASSIUM CHLORIDE 20 MEQ CONTROLLED RELEASE TAB PO SCH ×2 (12:35→20:33)
--- NOTE | 2016-07-11 17:05 | HHI.CCPN ---
Subjective Remarks/Hospital Course 31 year old morbidly obese (BMI 68) male with chronic respiratory failure s/p tracheostomy 4 years ago, atrial fibrillation and pulmonary embolism on Xarelto , COPD, CHF and h/o HTN. He presented from [facility] with low oxygen saturation apparently his oxygen saturation was 82% on RA. He was placed back on 6L of oxygen via his trach mask and given a breathing treatment, initially improved however he started drifting back to low 80s again. Chest x-ray showed bibasilar infiltrates and pulmonary edema. Patient was admitted to the [facility] and was started on IV steroids IV vancomycin and Zosyn and Levaquin for healthcare associated pneumonia. After starting ACV, patient was more awake but there was a significant amount of air leak around his tracheostomy. Patient has had a Shiley 6.0 Proximal XLT, but the airplane pilot supervisor balloon had been cut off. 05/02 the patient became acutely hypoxemic with a large cuff leak, underwent emergency trach exchange at bedside by Dr. Macias. FiO2 65% PEEP 14 05/13 Patient is on ventilator via trach, on Fentanyl infusion however he is awake and alert. On PRVC with FIO2 40%. Afebrile. 05/14 No acute events overnight. Tmax 99.8. Patient is awake, alert on ventilator via trach still requiring increase O2. On PRVC with PEEP: 10 and FIO2 70%. 05/15 Pt acutely desaturated after he was found. Saturation down to 70% on 100 % oxygen. Bag and mask ventilation carried out, with eventual improvement on oxygen saturation to 85%. Patient was placed on PC/AC mode of ventilation, with PEEP of 15 and instructed to pressure of 30. Eventually oxygen saturation improved to 95%. Lasix him today as the chest x-ray from today shows increasing bilateral infiltrate and pulmonary edema. Sputum culture will be sent 05/16 Patient is on Fentanyl and Diprivan infusion but awake and alert. Afebrile. On PC/AC with PEEP:15, IP: 22, IT:1.3 and FIO2 50% 05/17 Patient is off Diprivan and remains on Fentanyl infusion for sedation. On PC/AC with PEEP: down 10 and FIO2 40%. Afebrile. 05/18 Patient remains on ventilator via trach on PC/AC with PEEP:12, FIO2 40%, IP:22, IT:1.0. On Fentanyl infusion 05/19 No acute events overnight. On Fentanyl infusion but awake and alert. Afebrile. 05/20 Tolerating C Pap 17/12 FIO2 40, sats 98%. RSBI in 20s, appears can be weaned further. Afebrile. Speech therapy evaluated and ok for regular diet. Starting with full liquid. 05/21 Will wean PSV to 15/10. Tolerated full liquids, will advance to regular diet per speech recs. 05/22 On PSV 15/10 FIO2 40 with sats 92%. Smiling today. Glad to be eating regular food again. 05/23 No acute events overnight. Remains on CPAP with PS 15, PEEP:10 and FIO2 40 %. Afebrile. Off Fentanyl drip. Afebrile. Awake and alert. 05/24 Patient is on CPAP 06/06 with 40% FIO2. Afebrile. Awake and alert, on no sedation. 05/25 No acute events overnight. Patient was placed back on PC/AC overnight. Tolerated CPAP trials during day yesterday. Awake and alert. On no drips. Afebrile. 05/26 Afebrile. Tmax 98.6. Today the patient complained of nausea requiring Zofran. The patient has a lack of an appetite, with noted hypoglycemia early this a.m. blood glucose level 69. Patient tolerating CPAP well greater than 12 hours in the last 24 hours. 05/27 The patient tolerated CPAP for over 36 hours, O2 sat a knee 94% on FIO2 40 %. The patient had an increase in appetite. The patient continues on full liquid diet. 05/28 The patient declined physical therapy treatment, yesterday and also overnight declined to be moved by nursing staff. The patient refused dinner last evening, of note patient was reevaluated by speech therapy and can consume a heart healthy diet with thin liquids. The patient continues on physical therapy for strengthening exercises of all extremities specifically noted right upper extremity continues to be weak with gross fibrillations noted in hand and forearm. 05/29 Afebrile. No change in right upper extremity weakness. The patient was seen by neurology yesterday plan for MRI today if possible in hospital MRI, and EMG studies. No complaints overnight. Patient continues to refuse to have activities performed, movement in bed. The patient appears to be depressed, psychiatry consulted. 05/30: Patient alert awake on CPAP. Following commands. Psych agrees the patient is depressed. MRI brain no acute findings 05/31: Awake alert. on PS 15/8. EMG could not be completed due to patient becoming anxious. Otherwise no acute events reported overnight 06/01: Remains PS from 11/02. Right upper extremity weakness persists. EMG to be repeated on Friday. Will need MRI of the brachial plexus. Chest x-ray is unchanged 06/02: States that "not feeling well". Febrile to 101.5. White count increasing but still within the normal range. Pancultured. We'll request ID reevaluation. 06/03: Resting in bed on C Pap/pressure support via tracheostomy. One out of 2 sets of blood cultures sent on 06/02 positive for gram-positive cocci. 06/04: Resting in bed on mechanical ventilation via tracheostomy. Afebrile overnight. MRI brachial plexus (06/03) revealed a collection near the right subscapularis muscle, possibly an abscess. Discussed with ID, orthopedics Dr. Velazquez consulted. I discussed the case with Dr. Velazquez this morning who feels this is probably an abscess however would be difficult to access surgically and he plans to set up percutaneous drainage by interventional radiology. 06/05: Resting in bed on mechanical ventilation via tracheostomy. Remains afebrile. Reportedly IR cannot do percutaneous drainage of collection involving right subscapularis muscle. 06/06: Resting in bed on mechanical ventilation via tracheostomy. Can actually speak around the trach. Remains afebrile. Dr. Velazquez evaluated patient and is scheduling surgery for drainage of fluid collection involving the right subscapularis muscle. 06/07: Resting in bed on mechanical ventilation via tracheostomy. Awaiting surgery today. 06/08: Status post I&D of collection near right shoulder/subscapularis on 06/[address] Velazquez. This morning patient is awake and alert complained of some pain at the surgical site. Remains on mechanical ventilation on C Pap/pressure support. 06/09: Sleeping, arousable. On mechanical ventilation with C Pap/pressure support overnight. Labs pending 06/10 No acute events overnight. On CPAP with PS 12, PEEP: 8, FIO2 40%. Afebrile. 06/11 Patient remains on CPAP with PS 10, PEEP: 8 and FIO2 40%. Afebrile. 06/12: No acute events overnight. Remains on CPAP 10/5. No specific complaints 06/13: Tolerating C Pap 10 over 5. Awake and alert following commands. Hemoglobin dropped from 8.6-7.1, no obvious bleeding. Sodium 140-149. Will give 1 unit of PRBC with 1 mg IV Bumex 06/14 No acute events overnight. On CPAP with PS 10, PEEP:5 and FIO2 50%. Afebrile. 06/15 No acute events overnight. Remains on CPAP 10/5 with 40% FIO2. Afebrile. 06/16 Patient remains on ventilator via trach on CPAP with PS 10, PEEP:5 and FIO2 40%. 06/17: Resting in bed on mechanical ventilation via tracheostomy. Feeling nauseous. 06/18: OOB in reclining chair. Reporting low back and leg pain that is positional. Continued nausea, denies emesis. CPAP w PS 5 FIO2 40%. Will attempt Tpiece trial today. Discontinue Vanc + Zerbaxa today per ID 06/19: No acute events overnight. Afebrile. HTN to 160/80. CPAP with PS 10. PEEP 10 FIO2 45. Failed Tpiece trial yesterday- desaturated to mid 70s. Denies SOB/CP. Nausea is less than before. Bed is broken and patient would like the mattress to "rotate". Per nursing, they are working to fix it. 06/20: No acute events overnight. Afebrile. HTN to 145/70. CPAP with PEEP 10 FIO2 45, with saturation 93=94%. Pt has no acute complaints. Denies SOB/CP/ Nausea. Didn't know why he threw up during PT yesterday. Denies pain. Still having diarrhea (chronic years in duration issue). Was eating Pringles in bed. Per nursing, does not eat hospital food- waits for mother to bring him food. He was counseled to eat the hospital food which is healthier for him and that he needs to stop eating food brought in by his mother. 06/21: Remains on mechanical ventilation, CPAP with pressure support. 06/22: On mechanical ventilation on C Pap with pressure support. Denies any nausea or abdominal pain. Appears comfortable. 06/23: Resting in bed on mechanical ventilation with C Pap/pressure support +10/ +5. Denies any shortness of breath denies any abdominal pain or nausea currently. 06/24: Refusing to get OOB with physical therapy today. I had a long discussion with the patient about the fact that he has been inpatient for months now and he is severely deconditioned. He must get out of bed with PT to clinically improve, and deconditioning is a major factor in his chronic respiratory failure. He denies chest pain or SOB. does endorse some nausea today. 06/25: tolerated 4 hours OOB yesterday with 4 hours of trach collar. plan to go 6 hours today. 06/26: tolerated OOB to chair 5 hours yesterday but only 1.5hr of trach collar due to hypoxia. 06/27: tolerated OOB to chair for 6 hours yesterday and almost 5 hours of trach collar. daily, he continues to be very resistant to participating in PT and getting OOB. He again asks if he can lay in bed today. 06/28: tolerated 6 hours of trach collar yesterday. OOB for almost 8 hours. 06/29: continues to tolerate daily trach collar trials. OOB for 8 hours again yesterday. 06/30: tolerated 8 hours of trach collar yesterday. OOB for 7 hours. can do trach collar as tolerated. he continues to make attempts to refuse physical therapy and does not wish to participate in his care. 07/01: no changes. did well with 8 hours of trach collar and 8-9 hours of OOB. will attempt to stand and possibly walk in place today. this certainly is a large undertaking given how deconditioned he is, but I think the mobilization will help to continue our rehabilitation efforts. will be taxing on medical staff to physically assist him. This is likely something we can only do on a weekly basis. 07/02: took 3 steps yesterday (first time out of bed in almost 3 months). otherwise, tolerating daily t-piece with nightly CPAP. plan for OOB and steps again today. trach collar as tolerated. diamox x 3 doses for worsening contraction alkalosis. net -900cc/24h. 07/03: OOB and a few steps again yesterday. trying to push him to longer t-piece intervals with fewer rests on CPAP. OOB all day again today. net euvolemic yesterday. lab holiday today. 07/04: to chair today. trach collar as tolerated. I really think he could go most of the night if not all night on trach collar, but he keeps insisting on going back on the vent to rest. brought to my attention by family practice team for ankle skin breakdown. agree with podiatry consult. Subjective: 07/05: OOB to chair again today. tolerated trach collar yesterday. CPAP at night. keeps asking to go back on rate on vent overnight. I do not think medically he needs this. podiatry saw patient and recommended dressing and elevation for foot. 07/06: on trach collar all night, not on the vent. this is a huge improvement. K 6.0 on bmp this AM, but Cr at baseline. will recheck. 07/07: remains off the vent on trach collar. weaning fio2. OOB again. recheck K yesterday 6.0--> 3.7, so likely spurious lab. I think tomorrow if he remains on trach collar, he is safe to go back to his facility. 07/08: No acute issues overnight. Plans for transfer to his facility with case management assistance. 07/09: Afebrile.The patient continues on trach collar. After readjustment in the bed early this a.m., the patient required increased O2 requirements to FiO2 of 90% which was decreased back down to 70% within an hour. No acute respiratory distress was noted. 07/10: Afebrile.No acute issues overnight. Patient continues on trach collar without any issues,O2 at 6-8 L/m. 07/11: Noted anterior left chest, appearance of fungal skin infection, spreading despite use of 2 antifungal creams. No acute issues overnight, awaiting peer-to -peer phone conversation with LTAC facility regarding necessity secondary to oxygen usage. Objective Vital Signs Date Time Temp Pulse Resp B/P Pulse Ox O2 Delivery O2 Flow Rate FiO2 07/11/16 16:00 98 07/11/16 12:00 98.6 22 133/72 91 07/11/16 12:00 T-Piece 70 07/11/16 08:06 10.00 Intake and Output 07/10/16 07/10/16 07/11/16 08:00 16:00 00:00 Intake Total 250 ml 360 ml 250 ml Output Total 450 ml 1750 ml 550 ml Balance -200 ml -1390 ml -300 ml Result Diagram: 1/11/17 0350 07/09/16 0430 Imaging MRI 06/20/16: No official reading. Preliminary reading suggests periventricular white matter changes at basal ganglia and no evidence ischemia CXR 06/17/16: Poor penetration. Rotated image. Unable to visualize lung bases. Possible atelectasis vs infiltrate R worse than L. Objective Remarks GEN: 31yo on trach collar, awakens and follows commands. Super morbidly obese. SKIN: Warm and dry. Fungal appearance of lesions left anterior chest increasing. HEAD: Normocephalic. EYES: No scleral icterus. No injection or drainage. NECK: obese with large neck circumference, trachea midline. Shiley 6.0 Proximal XLT, (new trach placed 05/02/16) CV: normal rate, regular rhythm. RESP: On mechanical ventilation, Breath sounds equal bilaterally. Distant secondary to habitus. GI: Abdomen soft, obese, non-tender, nondistended. MSK: No cyanosis, or edema. Pedal edema. Neuro: Moves all extremities with focal deficit right upper extremity. RASS 0. A/P Assessment and Plan ASSESSMENT Acute hypercapnic and hypoxemic respiratory failure (Shiley 6.0 Proximal XLT) CO2 narcosis (resolved) Acute worsening of hypoxia due to lung de-recruitment (05/15/16, resolved) Healthcare associated pneumonia MDR Pseudomonas Enterococcal bacteremia Pseudomonas bacteremia Collection near right subscapularis muscle(On MRI 06/03) - hematoma status post I &D on 06/07 Sepsis CHF exacerbation Tracheostomy airplane pilot supervisor balloon damage -status post exchange with new Shiley 6.0 Proximal XLT 05/02/16 Probable right brachial plexus injury COPD/obesity hypoventilation syndrome Morbid Obesity BMI 60-69 History of pulmonary embolism 4 years ago Chronic atrial fibrillation Anxiety CHF (Echo 2013 EF 40-45%; ECHO 08/2015 showing a grossly normal systolic function) Hypertension Hypothyroidism Depression PLAN NEURO: CO2 narcosis - resolved Critical care polyneuropathy Right upper extremity weakness 05/21-possibly secondary to nerve compression, C6 , C7 (brachial plexus) Pain Anxiety Depression -EMG/ NCV could not be completed on 05/[address] Castillo -Clinically has right brachial plexus involvement. MRI of brachial plexus on 06/03 revealed collection involving right subscapularis muscle- s/p I & D on 06/[address] Velazquez. -Neurology Dr. Cheek-MRI brain, C spine no acute findings. -Venous Doppler RUE 05/28-negative for DVT -Continued PT daily, with strengthening exercises -Continue Seroquel 100mg HS. Continue Zoloft 100mg daily -Decreased pain reg: Tylenol 625mg pain 1-6, Percocet 10/325 pain 7-10 RESP: Acute hypercapnic and hypoxemic respiratory failure Acute lung derecruitment 05/15 with hypoxia Healthcare associated pneumonia Tracheostomy airplane pilot supervisor balloon damage (Shiley 6.0 Proximal XLT) s/p new trach placement 05/02 Chronic Respiratory Failure s/p Tracheostomy 4 years ago COPD/obesity hypoventilation syndrome History of pulmonary embolism 4 years ago Leukocytosis-resolved Pulmonary edema - s/p Bronchoscopy 05/11 - BAL results negative - 10 units aggressive Pulm toilet, trach care - Continue with vent support keep sat >88% on CPAP 10, 45% FIO2. Continue T- piece - Continue DuoNeb q6h REYES + q2h PRN, Pulmicort BID, Singulair 10mg daily - Continue trach collar OOB to chair, minimum 3 hours daily, should increase it to every shift CV: CHF exacerbation Pulmonary edema Paroxysmal atrial fibrillation (chronic) Hyperlipidemia -Monitor HR and BP keep MAP>65mmHg -Cardizem 90mg QID, Bumex 1mg daily PO, Lipitor 10g daily, TriCor 40mg by mouth daily -continue on home Xarelto. GI: Super morbid obesity with BMI of 64 Nausea GERD -Regular diet, thin liquids per speech recs -Liver US 06/03: Fatty liver, sludge in gallbladder, splenomegaly, no mechanical obstruction of bile duct noted. -Protonix 20mg BID. Zofran prn for nausea. -Multivitamin daily -Bringing in food, per nurses. Not adherent to hospital diet. FEN/RENAL: Hypokalemia Metabolic alkalosis - Monitor renal function , I/O, electrolytes replacement per protocol. - Bumex 1mg PO daily, KCL 40meq Q12hr - Willard was discontinued. we are using a rectal bag to collect urine and keep sacral area clean. no indication for willard catheter. ID: Healthcare associated pneumonia Sepsis New fever-resolved MDRO Cellulitis right arm-resolved Leukocytosis-resolved Enterococcal faecalis bacteremia, Pseudomonas bacteremia (06/02, 06/03) -Wound culture Pseudomonas MDR 04/27 -Sputum culture-Pseudomonas MDR- 04/27 -Urine cx: Proteus Mirabilis 05/05 -Sputum cx: Providencia 05/05 -Bronchoscopy and re-culture 05/10- NG -Wound cx: Proteus, Pseudomonas, Group D Enterococcus- 05/13 -Sputum cx- NG- 05/15 -Blood culture: aerobic and anaerobic bottles - enterococcus faecalis, pseudomonas aeruginosa 06/02, 06/03 -Urine culture: pseudomonas aeruginosa- 06/02 -Wound culture: pseudomonas aeruginosa- 06/02 -Sputum culture: Pseudomonas- 06/02 -Dr. Velazquez performed drainage of collection surgically on 06/07- likely hematoma -Stopped IV Vanc and Zerbaxa on 06/18. (MDR pseudomonas in blood cultures) - colistin nebs stopped 06/27 HEME: History of PE on chronic anticoagulation with Xarelto Iron deficiency anemia and anemia of critical illness. -Monitor CBC, transfused 1U PRBC 06/13 -Xarelto for PE 4 yrs ago. -Continue Xarelto. -Ferrous sulfate 300 mg/q day ENDO: Hypothyroidism -On SSI (Low scale) -Continue levothyroxine 50 mcg po daily -Free T4 1.52 MSK: --agree with podiatry consult. -Continue physical therapy PROPH: -Lower extremity SCDs (L leg only, R ankle cellulitis), continue home xarelto GI prophylaxis- Protonix 20mg BID LINES: - PICC line RUE- No DVT on US 05/02 - removed on 06/03. PIV 's x 2 - Willard catheter removed 07/05. we are using rectal bag to collect urine in an effort to keep sacral and groin area clean and free of skin breakdown. Out of bed with assistance. PT out of bed with vent. OT. Dispo: Scheduled to transfer senior care facility, case management facilitation. Awaiting Peer-Peer phone call , for decision for LTAC. Until then , he remains in the ICU. q48h labs. Dispo: Level 2 Physician Juana Cisneros MD Jul 11, 2016 17:05
[2016-07-11] MEDS: QUEtiapine FUMARATE 100 MG TAB PO SCH (20:33)
[2016-07-12] VITALS (14 sets, daily range): BP systolic 118–146; BP diastolic 60–76; PULSE 89–101; RESP 25–32; TEMP 98.1–98.8; O2SAT 90–100
[2016-07-12] MEDS: LEVOTHYROXINE SODIUM 50 MCG TAB PO SCH (05:59)
[2016-07-12] MEDS: INSULIN NovoLIN REGULAR SUPPLEMENTAL SCALE SQ SCH (06:00)
[2016-07-12 06:14] LABS: HEMATOCRIT 36.1 % (39.0-51.0); MEAN CELL VOLUME 85.4 FL (80.0-100.0); MEAN CORPUSCULAR HEMOGLOBIN 26.1 PG (27.0-34.0); MEAN CORPUSCULAR HGB CONC 30.5 % (32.0-36.0); PLATELET COUNT 295 TH/MM3 (150-450); RED BLOOD COUNT 4.23 MIL/MM3 (4.50-5.90); RED CELL DISTRIBUTION WIDTH 23.9 % (11.6-17.2); REVIEW FLAG FINAL; WHITE BLOOD COUNT 14.8 TH/MM3 (4.0-11.0)
[2016-07-12] MEDS: RESP: BUDESONIDE 0.5 MG/2 ML NEB NEB SCH ×2 (07:59→19:57)
[2016-07-12] MEDS: CHLORHEXIDINE 0.12% (ORAL KIT) 15 ML CUP MT SCH ×2 (08:12→20:52)
[2016-07-12] MEDS: FLUCONAZOLE 200 MG TAB PO SCH (08:13)
[2016-07-12] MEDS: ALLOPURINOL 300 MG TAB PO SCH (08:13)
[2016-07-12] MEDS: ONDANSETRON ODT 4 MG TAB PO PRN (08:13)
[2016-07-12] MEDS: MONTELUKAST SODIUM 10 MG TAB PO SCH (08:13)
[2016-07-12] MEDS: SERTRALINE HCL 100 MG TAB PO SCH (08:13)
[2016-07-12] MEDS: PANTOPRAZOLE SOD 20 MG DELAYED RELEASE TAB PO SCH ×2 (08:13→20:52)
[2016-07-12] MEDS: MULTIVITAMIN TAB PO SCH (08:13)
[2016-07-12] MEDS: FERROUS SULFATE 325 MG (65 MG ELEMENTAL IRON) TAB PO SCH (08:13)
[2016-07-12] MEDS: DILTIAZEM HCL 90 MG TAB PO SCH ×4 (08:13→20:52)
[2016-07-12] MEDS: FENOFIBRATE 48 MG TAB PO SCH (08:14)
[2016-07-12] MEDS: ATORVASTATIN 10 MG TAB PO SCH (08:14)
[2016-07-12] MEDS: BUMETANIDE 1 MG TAB PO SCH (08:14)
[2016-07-12] MEDS: SODIUM CHLORIDE 0.9% FLUSH 5 ML FLUSH IVF SCH ×2 (08:14→20:52)
[2016-07-12] MEDS: RIVAROXABAN 20 MG TAB PO SCH (08:14)
[2016-07-12] MEDS: NYSTATIN 100,000 U/GM PWD 15 GM BTL TOPICAL SCH ×2 (08:15→20:52)
[2016-07-12] MEDS: MICONAZOLE NITRATE 2% CREAM 15 GM TOP SCH ×2 (08:15→20:53)
[2016-07-12] MEDS: COLLAGENASE OINT 30 GM TUBE TOP SCH (08:16)
[2016-07-12] MEDS: IBUPROFEN 600 MG TAB PO PRN (08:17)
--- NOTE | 2016-07-12 09:48 | HHI.CCPN ---
Subjective Remarks/Hospital Course 31 year old morbidly obese (BMI 68) male with chronic respiratory failure s/p tracheostomy 4 years ago, atrial fibrillation and pulmonary embolism on Xarelto , COPD, CHF and h/o HTN. He presented from [facility] with low oxygen saturation apparently his oxygen saturation was 82% on RA. He was placed back on 6L of oxygen via his trach mask and given a breathing treatment, initially improved however he started drifting back to low 80s again. Chest x-ray showed bibasilar infiltrates and pulmonary edema. Patient was admitted to the [facility] and was started on IV steroids IV vancomycin and Zosyn and Levaquin for healthcare associated pneumonia. After starting ACV, patient was more awake but there was a significant amount of air leak around his tracheostomy. Patient has had a Shiley 6.0 Proximal XLT, but the sales solutions representative balloon had been cut off. 05/02 the patient became acutely hypoxemic with a large cuff leak, underwent emergency trach exchange at bedside by Dr. Macias. FiO2 65% PEEP 14 05/13 Patient is on ventilator via trach, on Fentanyl infusion however he is awake and alert. On PRVC with FIO2 40%. Afebrile. 05/14 No acute events overnight. Tmax 99.8. Patient is awake, alert on ventilator via trach still requiring increase O2. On PRVC with PEEP: 10 and FIO2 70%. 05/15 Pt acutely desaturated after he was found. Saturation down to 70% on 100 % oxygen. Bag and mask ventilation carried out, with eventual improvement on oxygen saturation to 85%. Patient was placed on PC/AC mode of ventilation, with PEEP of 15 and instructed to pressure of 30. Eventually oxygen saturation improved to 95%. Lasix him today as the chest x-ray from today shows increasing bilateral infiltrate and pulmonary edema. Sputum culture will be sent 05/16 Patient is on Fentanyl and Diprivan infusion but awake and alert. Afebrile. On PC/AC with PEEP:15, IP: 22, IT:1.3 and FIO2 50% 05/17 Patient is off Diprivan and remains on Fentanyl infusion for sedation. On PC/AC with PEEP: down 10 and FIO2 40%. Afebrile. 05/18 Patient remains on ventilator via trach on PC/AC with PEEP:12, FIO2 40%, IP:22, IT:1.0. On Fentanyl infusion 05/19 No acute events overnight. On Fentanyl infusion but awake and alert. Afebrile. 05/20 Tolerating C Pap 17/12 FIO2 40, sats 98%. RSBI in 20s, appears can be weaned further. Afebrile. Speech therapy evaluated and ok for regular diet. Starting with full liquid. 05/21 Will wean PSV to 15/10. Tolerated full liquids, will advance to regular diet per speech recs. 05/22 On PSV 15/10 FIO2 40 with sats 92%. Smiling today. Glad to be eating regular food again. 05/23 No acute events overnight. Remains on CPAP with PS 15, PEEP:10 and FIO2 40 %. Afebrile. Off Fentanyl drip. Afebrile. Awake and alert. 05/24 Patient is on CPAP 06/06 with 40% FIO2. Afebrile. Awake and alert, on no sedation. 05/25 No acute events overnight. Patient was placed back on PC/AC overnight. Tolerated CPAP trials during day yesterday. Awake and alert. On no drips. Afebrile. 05/26 Afebrile. Tmax 98.6. Today the patient complained of nausea requiring Zofran. The patient has a lack of an appetite, with noted hypoglycemia early this a.m. blood glucose level 69. Patient tolerating CPAP well greater than 12 hours in the last 24 hours. 05/27 The patient tolerated CPAP for over 36 hours, O2 sat a knee 94% on FIO2 40 %. The patient had an increase in appetite. The patient continues on full liquid diet. 05/28 The patient declined physical therapy treatment, yesterday and also overnight declined to be moved by nursing staff. The patient refused dinner last evening, of note patient was reevaluated by speech therapy and can consume a heart healthy diet with thin liquids. The patient continues on physical therapy for strengthening exercises of all extremities specifically noted right upper extremity continues to be weak with gross fibrillations noted in hand and forearm. 05/29 Afebrile. No change in right upper extremity weakness. The patient was seen by neurology yesterday plan for MRI today if possible in hospital MRI, and EMG studies. No complaints overnight. Patient continues to refuse to have activities performed, movement in bed. The patient appears to be depressed, psychiatry consulted. 05/30: Patient alert awake on CPAP. Following commands. Psych agrees the patient is depressed. MRI brain no acute findings 05/31: Awake alert. on PS 15/8. EMG could not be completed due to patient becoming anxious. Otherwise no acute events reported overnight 06/01: Remains PS from 11/02. Right upper extremity weakness persists. EMG to be repeated on Friday. Will need MRI of the brachial plexus. Chest x-ray is unchanged 06/02: States that "not feeling well". Febrile to 101.5. White count increasing but still within the normal range. Pancultured. We'll request ID reevaluation. 06/03: Resting in bed on C Pap/pressure support via tracheostomy. One out of 2 sets of blood cultures sent on 06/02 positive for gram-positive cocci. 06/04: Resting in bed on mechanical ventilation via tracheostomy. Afebrile overnight. MRI brachial plexus (06/03) revealed a collection near the right subscapularis muscle, possibly an abscess. Discussed with ID, orthopedics Dr. Velazquez consulted. I discussed the case with Dr. Velazquez this morning who feels this is probably an abscess however would be difficult to access surgically and he plans to set up percutaneous drainage by interventional radiology. 06/05: Resting in bed on mechanical ventilation via tracheostomy. Remains afebrile. Reportedly IR cannot do percutaneous drainage of collection involving right subscapularis muscle. 06/06: Resting in bed on mechanical ventilation via tracheostomy. Can actually speak around the trach. Remains afebrile. Dr. Velazquez evaluated patient and is scheduling surgery for drainage of fluid collection involving the right subscapularis muscle. 06/07: Resting in bed on mechanical ventilation via tracheostomy. Awaiting surgery today. 06/08: Status post I&D of collection near right shoulder/subscapularis on 06/[address] Velazquez. This morning patient is awake and alert complained of some pain at the surgical site. Remains on mechanical ventilation on C Pap/pressure support. 06/09: Sleeping, arousable. On mechanical ventilation with C Pap/pressure support overnight. Labs pending 06/10 No acute events overnight. On CPAP with PS 12, PEEP: 8, FIO2 40%. Afebrile. 06/11 Patient remains on CPAP with PS 10, PEEP: 8 and FIO2 40%. Afebrile. 06/12: No acute events overnight. Remains on CPAP 10/5. No specific complaints 06/13: Tolerating C Pap 10 over 5. Awake and alert following commands. Hemoglobin dropped from 8.6-7.1, no obvious bleeding. Sodium 140-149. Will give 1 unit of PRBC with 1 mg IV Bumex 06/14 No acute events overnight. On CPAP with PS 10, PEEP:5 and FIO2 50%. Afebrile. 06/15 No acute events overnight. Remains on CPAP 10/5 with 40% FIO2. Afebrile. 06/16 Patient remains on ventilator via trach on CPAP with PS 10, PEEP:5 and FIO2 40%. 06/17: Resting in bed on mechanical ventilation via tracheostomy. Feeling nauseous. 06/18: OOB in reclining chair. Reporting low back and leg pain that is positional. Continued nausea, denies emesis. CPAP w PS 5 FIO2 40%. Will attempt Tpiece trial today. Discontinue Vanc + Zerbaxa today per ID 06/19: No acute events overnight. Afebrile. HTN to 160/80. CPAP with PS 10. PEEP 10 FIO2 45. Failed Tpiece trial yesterday- desaturated to mid 70s. Denies SOB/CP. Nausea is less than before. Bed is broken and patient would like the mattress to "rotate". Per nursing, they are working to fix it. 06/20: No acute events overnight. Afebrile. HTN to 145/70. CPAP with PEEP 10 FIO2 45, with saturation 93=94%. Pt has no acute complaints. Denies SOB/CP/ Nausea. Didn't know why he threw up during PT yesterday. Denies pain. Still having diarrhea (chronic years in duration issue). Was eating Pringles in bed. Per nursing, does not eat hospital food- waits for mother to bring him food. He was counseled to eat the hospital food which is healthier for him and that he needs to stop eating food brought in by his mother. 06/21: Remains on mechanical ventilation, CPAP with pressure support. 06/22: On mechanical ventilation on C Pap with pressure support. Denies any nausea or abdominal pain. Appears comfortable. 06/23: Resting in bed on mechanical ventilation with C Pap/pressure support +10/ +5. Denies any shortness of breath denies any abdominal pain or nausea currently. 06/24: Refusing to get OOB with physical therapy today. I had a long discussion with the patient about the fact that he has been inpatient for months now and he is severely deconditioned. He must get out of bed with PT to clinically improve, and deconditioning is a major factor in his chronic respiratory failure. He denies chest pain or SOB. does endorse some nausea today. 06/25: tolerated 4 hours OOB yesterday with 4 hours of trach collar. plan to go 6 hours today. 06/26: tolerated OOB to chair 5 hours yesterday but only 1.5hr of trach collar due to hypoxia. 06/27: tolerated OOB to chair for 6 hours yesterday and almost 5 hours of trach collar. daily, he continues to be very resistant to participating in PT and getting OOB. He again asks if he can lay in bed today. 06/28: tolerated 6 hours of trach collar yesterday. OOB for almost 8 hours. 06/29: continues to tolerate daily trach collar trials. OOB for 8 hours again yesterday. 06/30: tolerated 8 hours of trach collar yesterday. OOB for 7 hours. can do trach collar as tolerated. he continues to make attempts to refuse physical therapy and does not wish to participate in his care. 07/01: no changes. did well with 8 hours of trach collar and 8-9 hours of OOB. will attempt to stand and possibly walk in place today. this certainly is a large undertaking given how deconditioned he is, but I think the mobilization will help to continue our rehabilitation efforts. will be taxing on medical staff to physically assist him. This is likely something we can only do on a weekly basis. 07/02: took 3 steps yesterday (first time out of bed in almost 3 months). otherwise, tolerating daily t-piece with nightly CPAP. plan for OOB and steps again today. trach collar as tolerated. diamox x 3 doses for worsening contraction alkalosis. net -900cc/24h. 07/03: OOB and a few steps again yesterday. trying to push him to longer t-piece intervals with fewer rests on CPAP. OOB all day again today. net euvolemic yesterday. lab holiday today. 07/04: to chair today. trach collar as tolerated. I really think he could go most of the night if not all night on trach collar, but he keeps insisting on going back on the vent to rest. brought to my attention by family practice team for ankle skin breakdown. agree with podiatry consult. 07/05: OOB to chair again today. tolerated trach collar yesterday. CPAP at night. keeps asking to go back on rate on vent overnight. I do not think medically he needs this. podiatry saw patient and recommended dressing and elevation for foot. 07/06: on trach collar all night, not on the vent. this is a huge improvement. K 6.0 on bmp this AM, but Cr at baseline. will recheck. 07/07: remains off the vent on trach collar. weaning fio2. OOB again. recheck K yesterday 6.0--> 3.7, so likely spurious lab. I think tomorrow if he remains on trach collar, he is safe to go back to his facility. 07/08: No acute issues overnight. Plans for transfer to his facility with case management assistance. 07/09: Afebrile.The patient continues on trach collar. After readjustment in the bed early this a.m., the patient required increased O2 requirements to FiO2 of 90% which was decreased back down to 70% within an hour. No acute respiratory distress was noted. 07/10: Afebrile.No acute issues overnight. Patient continues on trach collar without any issues,O2 at 6-8 L/m. Subjective: 07/11: Noted anterior left chest, appearance of fungal skin infection, spreading despite use of 2 antifungal creams. No acute issues overnight, awaiting peer-to -peer phone conversation with LTAC facility regarding necessity secondary to oxygen usage. 07/12: continues to make slow clinical improvements. had to go back to 100% fio2 last night, but remained off mechanical ventilatory support. [id number] convo today, I do think he would wean back to baseline fio2 within 2-3 weeks, given how much he has improved over the last few weeks. Objective Vital Signs Date Time Temp Pulse Resp B/P Pulse Ox O2 Delivery O2 Flow Rate FiO2 07/12/16 08:02 90 T-piece 10.00 70 07/12/16 06:00 97 07/12/16 04:00 98.4 32 125/60 Intake and Output 07/11/16 07/11/16 07/11/16 07:59 15:59 23:59 Intake Total 250 ml 200 ml Output Total 400 ml 800 ml 700 ml Balance -150 ml -600 ml -700 ml Result Diagram: 07/12/16 0547 07/09/16 0430 Imaging MRI 06/20/16: No official reading. Preliminary reading suggests periventricular white matter changes at basal ganglia and no evidence ischemia CXR 06/17/16: Poor penetration. Rotated image. Unable to visualize lung bases. Possible atelectasis vs infiltrate R worse than L. Objective Remarks GEN: 31yo on trach collar, awakens and follows commands. Super morbidly obese. SKIN: Warm and dry. Fungal appearance of lesions left anterior chest increasing. HEAD: Normocephalic. EYES: No scleral icterus. No injection or drainage. NECK: obese with large neck circumference, trachea midline. Shiley 6.0 Proximal XLT, (new trach placed 05/02/16) CV: normal rate, regular rhythm. RESP: On mechanical ventilation, Breath sounds equal bilaterally. Distant secondary to habitus. GI: Abdomen soft, obese, non-tender, nondistended. MSK: No cyanosis, or edema. Pedal edema. Neuro: Moves all extremities with focal deficit right upper extremity. RASS 0. A/P Assessment and Plan ASSESSMENT Acute hypercapnic and hypoxemic respiratory failure (Shiley 6.0 Proximal XLT) CO2 narcosis (resolved) Acute worsening of hypoxia due to lung de-recruitment (05/15/16, resolved) Healthcare associated pneumonia MDR Pseudomonas Enterococcal bacteremia Pseudomonas bacteremia Collection near right subscapularis muscle(On MRI 06/03) - hematoma status post I &D on 06/07 Sepsis CHF exacerbation Tracheostomy sales solutions representative balloon damage -status post exchange with new Shiley 6.0 Proximal XLT 05/02/16 Probable right brachial plexus injury COPD/obesity hypoventilation syndrome Morbid Obesity BMI 60-69 History of pulmonary embolism 4 years ago Chronic atrial fibrillation Anxiety CHF (Echo 2013 EF 40-45%; ECHO 08/2015 showing a grossly normal systolic function) Hypertension Hypothyroidism Depression PLAN NEURO: CO2 narcosis - resolved Critical care polyneuropathy Right upper extremity weakness 05/21-possibly secondary to nerve compression, C6 , C7 (brachial plexus) Pain Anxiety Depression -EMG/ NCV could not be completed on 05/[address] Castillo -Clinically has right brachial plexus involvement. MRI of brachial plexus on 06/03 revealed collection involving right subscapularis muscle- s/p I & D on 06/[address] Velazquez. -Neurology Dr. Cheek-MRI brain, C spine no acute findings. -Venous Doppler RUE 05/28-negative for DVT -Continued PT daily, with strengthening exercises -Continue Seroquel 100mg HS. Continue Zoloft 100mg daily -Decreased pain reg: Tylenol 625mg pain 1-6, Percocet 10/325 pain 7-10 RESP: Acute hypercapnic and hypoxemic respiratory failure Acute lung derecruitment 05/15 with hypoxia Healthcare associated pneumonia Tracheostomy sales solutions representative balloon damage (Shiley 6.0 Proximal XLT) s/p new trach placement 05/02 Chronic Respiratory Failure s/p Tracheostomy 4 years ago COPD/obesity hypoventilation syndrome History of pulmonary embolism 4 years ago Leukocytosis-resolved Pulmonary edema - s/p Bronchoscopy 05/11 - BAL results negative - 10 units aggressive Pulm toilet, trach care - Continue with vent support keep sat >88% on CPAP 10, 45% FIO2. Continue T- piece - Continue DuoNeb q6h REYES + q2h PRN, Pulmicort BID, Singulair 10mg daily - Continue trach collar OOB to chair, minimum 3 hours daily, should increase it to every shift CV: CHF exacerbation Pulmonary edema Paroxysmal atrial fibrillation (chronic) Hyperlipidemia -Monitor HR and BP keep MAP>65mmHg -Cardizem 90mg QID, Bumex 1mg daily PO, Lipitor 10g daily, TriCor 40mg by mouth daily -continue on home Xarelto. GI: Super morbid obesity with BMI of 64 Nausea GERD -Regular diet, thin liquids per speech recs -Liver US 06/03: Fatty liver, sludge in gallbladder, splenomegaly, no mechanical obstruction of bile duct noted. -Protonix 20mg BID. Zofran prn for nausea. -Multivitamin daily -Bringing in food, per nurses. Not adherent to hospital diet. FEN/RENAL: Hypokalemia Metabolic alkalosis - Monitor renal function , I/O, electrolytes replacement per protocol. - Bumex 1mg PO daily, KCL 40meq Q12hr - Willard was discontinued. we are using a rectal bag to collect urine and keep sacral area clean. no indication for willard catheter. ID: Healthcare associated pneumonia Sepsis New fever-resolved MDRO Cellulitis right arm-resolved Leukocytosis-resolved Enterococcal faecalis bacteremia, Pseudomonas bacteremia (06/02, 06/03) -Wound culture Pseudomonas MDR 04/27 -Sputum culture-Pseudomonas MDR- 04/27 -Urine cx: Proteus Mirabilis 05/05 -Sputum cx: Providencia 05/05 -Bronchoscopy and re-culture 05/10- NG -Wound cx: Proteus, Pseudomonas, Group D Enterococcus- 05/13 -Sputum cx- NG- 05/15 -Blood culture: aerobic and anaerobic bottles - enterococcus faecalis, pseudomonas aeruginosa 06/02, 06/03 -Urine culture: pseudomonas aeruginosa- 06/02 -Wound culture: pseudomonas aeruginosa- 06/02 -Sputum culture: Pseudomonas- 06/02 -Dr. Velazquez performed drainage of collection surgically on 06/07- likely hematoma -Stopped IV Vanc and Zerbaxa on 06/18. (MDR pseudomonas in blood cultures) - colistin nebs stopped 06/27 HEME: History of PE on chronic anticoagulation with Xarelto Iron deficiency anemia and anemia of critical illness. -Monitor CBC, transfused 1U PRBC 06/13 -Xarelto for PE 4 yrs ago. -Continue Xarelto. -Ferrous sulfate 300 mg/q day ENDO: Hypothyroidism -On SSI (Low scale) -Continue levothyroxine 50 mcg po daily -Free T4 1.52 MSK: --agree with podiatry consult. -Continue physical therapy PROPH: -Lower extremity SCDs (L leg only, R ankle cellulitis), continue home xarelto GI prophylaxis- Protonix 20mg BID LINES: - PICC line RUE- No DVT on US 05/02 - removed on 06/03. PIV 's x 2 - Willard catheter removed 07/05. we are using rectal bag to collect urine in an effort to keep sacral and groin area clean and free of skin breakdown. Out of bed with assistance. PT out of bed with vent. OT. Dispo: Scheduled to transfer alf facility, case management facilitation. Awaiting decision for LTAC. Until then, he remains in the ICU. q48h labs. Dispo: Level 2 Fletcher Brown MD Jul 12, 2016 09:48
[2016-07-12] MEDS ORDERED: DIFL200T PO (10:06)
--- NOTE | 2016-07-12 10:19 | HHI.FPPN ---
Subjective Remarks Yesterday, was unhappy with therapy of OOB to chair from 10-7pm. Goal was 12 hours. 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 Overnight, required return to FI02 100% per CC, but now back to 70% 10L this AM. AFVSS. Pt sitting at side of bed. Reports "stinging sensation" in bilateral legs. Discussed that this was result of HTN, HLD, and fluid in legs- he would benefit from weight loss and continued movement. Reports increased nausea, no emesis. Asking to sit in bed, not OOB to chair. Encouraged OOB to chair with goal 12 horusBreathing without difficulty on T-piece. Objective Vitals Vital Signs Date Time Temp Pulse Resp B/P Pulse Ox O2 Delivery O2 Flow Rate FiO2 07/12/16 08:02 90 T-piece 10.00 70 07/12/16 06:00 97 07/12/16 04:00 99 07/12/16 04:00 95 T-Piece 98 07/12/16 04:00 98.4 97 32 125/60 96 07/12/16 02:00 98 07/12/16 00:00 99 07/12/16 00:00 93 T-Piece 98 07/12/16 00:00 98.6 99 25 118/66 100 07/11/16 22:00 100 07/11/16 20:30 93 T-piece 10.00 70 07/11/16 20:00 98.5 97 33 125/71 93 07/11/16 20:00 97 07/11/16 20:00 93 T-Piece 70 07/11/16 18:00 94 07/11/16 16:00 98.6 98 22 122/67 98 07/11/16 16:00 98 07/11/16 16:00 92 T-Piece 70 07/11/16 14:00 98 07/11/16 12:00 95 07/11/16 12:00 98.6 98 22 133/72 91 07/11/16 12:00 91 T-Piece 70 I/O 07/11/16 07/11/16 07/11/16 07/12/16 07/12/16 07/12/16 07:00 15:00 23:00 07:00 15:00 23:00 Intake Total 250 ml 200 ml 200 ml Output Total 400 ml 800 ml 700 ml 200 ml Balance -150 ml -600 ml -700 ml 0 ml Intake Oral 250 ml 200 ml 200 ml IV Total 0 ml Output Urine Total 400 ml 800 ml 700 ml 200 ml # Bowel Movements 1 2 Result Diagram: 07/12/16 0547 07/09/16 0430 Objective Remarks CONST: Morbidly obese male in NAD. DERM: Flat, erythematous, blanching rash on bilateral arms, forearms, deltoids, upper torso. Well-healing scar R shoulder. White flaky patch of skin on R arm ~ 2inches diameter. R lat malleolus with 1.5 x 1.5 cm skin break down. Area in bandage- c/d/i. Numerous skin folds 2/2 habitus. Dry, flaking skin on feet. HEENT: Tracheotomy site c/d/i. Poor dentition CV: Distant heart sounds. RRR RESP: Anterior exam with end expiratory wheezing. Breathing comfortably on T piece GI: Abdomen soft, obese,NT. +BS. Bruises on lower abdomen. MSK: External rotation of RLE and LLE NEURO: CN grossly normal. Procedures 04/24- Started ventilation 05/02- Emergency Trach Exchange 06/03- PICC line removed 06/07- Debridement of RUE abscess (Dr. Velazquez), RUE drain placed. 06/10- RUE drain removal 07/05- Removed from ventilation, continuous T-piece, remained off ventilation since A/P Assessment and Plan 31yo male with super morbid obesity with chronic respiratory failure s/p tracheostomy 4 years ago. Admitted 05/13/16 with respiratory failure. Discharge Planning LUIS ANTONIO. Ideally today 07/12/15. Have been attempting to place since 07/08/15. Off mechanical ventilation since 07/05/15. On T-piece using 8-10L. Case management working on placement. Dr. Brown did P2P with [facility] [employer] for placement at [facility] (refused to cover cost of admission, SNF not in their approved list) Dr. Morgan, , called insurance 07/10/12- did not get a response. Denied placement to [facility]. No recent provided, not mandatory that they explain why declined. Denied placement [facility] (can accommodate up to 6L oxygen, pt using 8L) INEZW: Dr. Mccain, MS4 [place] DW: Dr. Watts Problem List: (1) Fungal infection Status: Acute Plan: Dermatitis, present for some days to weeks (need chart review), spreading from L shoulder to bilateral arms/torso. Initially along L shoulder and torso under area where tubing for ventilator ran. Antifungal powders since admission. -Continue Diflucan 200mg daily - Discharge with 5 more days (7 days total) -Wound culture ordered, follow culture -Continue nystatin powder -Continue myconizole creme (2) Chronic respiratory failure Status: Chronic Plan: Off mechanical ventilation, CPAP since evening 07/05/15. -Prioritize patient d/c to SNF. Continue Trach collar, OOB to chair. Do not return to vent unless clinically declines per O2 saturations. - Continue Pulmicort BID, Singulair 10mg daily, Symbicort BID, Duonebs q2h PRN (3) Ankle ulcer Status: Acute Plan: Ankle ulcer present on admission, worsened during hospital stay secondary to prolonged immobilization. Wound Cx (07/05): Providencia stuartii. Podiatry, Wound Care consulted Continue Optifoam gentle AG dressings, aggressive PT OT, OOB to chair, RLE strengthening internal rotation (4) Nausea Status: Chronic Plan: Chronic. Ddx: GERD vs psychosomatic vs gastroparesis vs med adverse effect. Of note, Zofran use chronically may worsen gastroparesis and paroxysmally worse nausea - Zofran ODT PRN, Protonix 20mg BID REYES (5) Hematoma Status: Acute Plan: Initial Impression: RUE weakness secondary to hematoma vs C6/C7 neuropathy. S/p I&D by Dr. Velazquez (06/07/16). Small hematoma found during procedure inconsistent with 6cm x 6cm x 8cm abscess per MRI brachial plexus. L hemispheric pathology and seizure r/o as cause RUE weakness. Unable to tolerate EMG. - Daily dressing changes with xeroform and primapore - Daily PT/OT, as tolerated. PT targeting RUE weakness. Imaging: - US negative for DVT (05/28) - MRI brain (04/28) no acute intracranial process - MRI C-spine (05/29): grossly wnl - EEG (05/29): diffuse mild encephalopathy vs normal Stage 2 sleep - MRI brachial plexus (06/03): "Complex multiloculated soft tissue and cystic mass 5.5 x 6 x 7.8 cm involving subscapularis muscle along anterior R scapula - Pathology report (06/07): fragments of blood clot admixed with few minute fragments of adipose and skeletal muscle tissue (6) CHF (congestive heart failure) Status: Chronic Plan: Suspected HF with poor EF, though unable to confirm via ECHO (04/25) due to poor imaging. BNP elevated on admission, downtrended. Maximize hypertension control and rate control for history A. fib, currently in NSR Plan Bumex 1mg PO daily + 40 KCl BID, 1.5L fluid restriction, Cardiazem 90mg QID, Xarelto 20mg PO daily (7) Stable medical conditions Status: Chronic Plan: NORMOCYTIC ANEMIA - Ferrous sulfate 325mg PO daily, Multivitamin 1 tab PO daily HYPERLIPIDEMIA - Atorvastatin 10mg daily, Tricor 48mg daily MDD: Pt reports stable mood; some anhedonia suspected. Previously, refusing meals, shower, PT - Sertraline 200 mg PO daily, Seroquel 100mg HS INSOMNIA - Zolpidem 5mg HS PRN. Attempted discontinuation, patient requested placed back on board. GOUT - Allopurinol 300mg daily HYPOTHYROIDISM 08/2015- TSH low, free T4 grossly wnl (05/27/16) - Synthroid 50 mcg PO daily MORBID OBESITY WITH BMI 55-59 -see above plan for mechanical ventilation BACTEREMIA -Resolved. ID no longer following. History of cellulitis chest wall, yeast UTI, HCAP during this hospitalization - Colistin 75mg q8h NEB, Acetaminophen 325mg PRN fever Abx History Zosyn 4.5gm IV q6h (04/24 - 04/29) Levaquin 750mg IV q24h (04/24-04/30) Zerbaxa 1.5 g IV q8h (04/29 - 05/07) Vancomycin IV (04/24 - 05/06) Ceftriaxone IV (05/07 - 05/25) Linezolid 600 mg PO BID (05/06 - 05/13) Zosyn 3.375 q6h (06/04- 06/05) Vancomycin IV daily goal trough 15-20, (06/03 -06/18) Zerbaxa IV q8h (06/05-12/20) (8) Nutrition, metabolism, and development symptoms Status: Acute Plan: FEN: Fluids: PO (Limited 1.5L/day) Electrolytes: +40KCl BID. Chronically hypokalemic, replete per protocol Nutrition: 2Kcal heart healthy diet. Transitioned to oral feeds (05/29). Wt: Admission: 480 lbs family bringing in food. Note placed on door to prohibit. PPX GI ppx: Protonix 20mg BID DVT ppx: Lovenox 150mg BID Pain: Ibuprofen when necessary pain 7-10, may require prior to PT, have discontinued opioids as not indicated Bowel: Senna 1 tab HS PRN Problem Qualifiers (1) Chronic respiratory failure: Qualified Code: J96.10 - Chronic respiratory failure, unspecified whether with hypoxia or hypercapnia (2) Ankle ulcer: Qualified Code: L97.311 - Ankle ulcer, right, limited to breakdown of skin (3) CHF (congestive heart failure): Qualified Code: I50.9 - Acute on chronic congestive heart failure, unspecified congestive heart failure type Holley Baires MD R1 Jul 12, 2016 10:19
--- NOTE | 2016-07-12 10:41 | HHI.DS ---
Discharge Summary Admission Date Apr 24, 2016 at 14:20 Discharge Date: Jul 12, 2016 Admitting Diagnosis Acute respiratory failure (1) PLAN Diagnosis: Principal Plan: NEURO/PSYCH Neurology and Psychology consulted CO2 narcosis -Resolved with oxygen supplementation Polyneuropathy of Critical illness -Continue PT, discharge to SNF RUE weakness/pain & Cervical neuropathy. Did not tolerate EMG of RUE. MRI of RUE and C-spine WNL. -Continue PT/OT, Frequent rotations, OOB to chair -Ibuprofen 600mg q6h pain Anxiety/MDD- -Initially refusing meals, bathing. Improved. However, continued reluctance to participate in PT/OT. Many somatic complaints (RUBY, nausea, nonspecific pain, etc) -Seroquel 100mg HS -Zoloft 200mg daily Insomnia- Zolpidem initially held for respiratory depression. Reported melatonin did not help. Pt requested med placed back on board. -Zolpidem 5mg HS Disordered eating- At [facility], hx of hiding food in body folds. Did not adhere to dietary restraint while in hospital- family repeatedly brought in food: pizza, pringles, etc. Poor insight. 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 s/p new trach placement linical course complicated by HCAP and bacteremia. s/p Bronchoscopy 05/11 - BAL results negative . Resolved, weaned from ventilator and CPAP, off ventilator since 07/05/15. Treated with bronchodilators and weaning from vent. -Resolved Chronic Respiratory Failure s/p Tracheostomy (2011) -Aggressive pulmonary toliet, trach care, oxygen supplementation, as needed for O2 saturation 92%+ Healthcare associated pneumonia -Resolved, see ID Pickwickian Syndrome -Oxygen support PRN for saturation 92%+, wean as tolerated History of pulmonary embolism 2011 -Continue home Xarelto Pulmonary edema -diuresis PRN (see CHF) CV: CHF: suspected HF with poor EF, though unable to confirm via ECHO (04/25) due to poor imaging. BNP elevated on admission, downtrended. -Monitor HR and BP keep MAP>65mmHg -Bumex 1mg daily PO Paroxysmal atrial fibrillation (history of, currently SNR) -Cardiazem 90mg QID -Xarelto GI/LIVER Wt 480 lbs on admission (04/25/16). Wt 414 lbs on discharge (07/12/15) Super morbid obesity with BMI 60-69 (on admission), 50-59 (current) -Diet per nutrition recommendations- regular, thin liquids, 2000 calorie heart healthy diet (1.5L fluids, 2g sodium, no caffeine), no outside food Nausea- GERD vs gastroparesis vs psychosomatic. Chronic- waxing and waning. Nausea improved with Zofran IV -> ODT and OOB to chair. Hx emesis during PT, emesis resolved. -Zofran ODT q4h PRN -Protonix 20mg BID Hyperlipidemia -Lipitor 10g daily -TriCor 40mg by mouth daily ?Protein calorie malnutrition: repeatedly refusing hospital food-> concern for protein malnutrition. However, not adherent to diet (outside food brought in by family) and maintained/increased in weight during these episodes of food refusal -Adhere to hospital diet Splenomegaly -Incidental finding. Continue to monitor Fatty Liver Disease: per Liver US 06/03/16 -Lose weight to healthy weight BMI <25 Diarrhea- Chronic. Present prior to admission. C. difficile testing negative. Ddx: poor diet vs medication side effect. -Adhere to hospital diet, no outside food, continue to monitor FEN/RENAL: Chronic Hypokalemia: KCL 40 meq BID replacement REYES +ICU electrolyte replacement protocol PRN Metabolic alkalosis - Monitor renal function , I/O, electrolytes replacement per protocol. Pulmonary edema- held home furosemide on admission, consider weaning/discharge as outpatient now that is stable- no known CKD- and/or increasing fluid restriction - Bumex 1mg PO daily Urinary incontinence: Unable to use bedside commode secondary to body habitus. -Rectal bag to collect urine and keep sacral area clean. No indication for willard catheter. Hypomagnesemia -Replete per ICU protocol ID/DERM Infectious disease consulted Fungal dermatitis: Approx two weeks old. Initially under where trach tube ran/ area of increased moisture- now spreading from L shoulder to L shoulder/ bilateral arms/upper torso. Apparently refractory to antifungal powders since admission. -Diflucan 200mg daily (07/11- 07/16)- six days total -Wound culture ordered, follow culture -Continue nystatin powder -Continue myconizole creme Resolved (see below) Bacteremia- Enterococcal faecalis bacteremia, Pseudomonas bacteremia (06/02, 06/03) HCAP, Sepsis, Fever, Yeast UTI, Hx MDRO, Cellulitis R arm, Leukocytosis Cultures -Blood culture: aerobic and anaerobic bottles - enterococcus faecalis, pseudomonas aeruginosa 06/02, 06/03 -Urine culture: pseudomonas aeruginosa- 06/02 -Wound culture: pseudomonas aeruginosa- 06/02 -Sputum culture: Pseudomonas- 06/02 -Sputum cx- NG- 05/15 -Wound cx: Proteus, Pseudomonas, Group D Enterococcus- 05/13 -Bronchoscopy and re-culture 05/10- NG -Wound culture Pseudomonas MDR 04/27 -Sputum culture-Pseudomonas MDR- 04/27 -Urine cx: Proteus Mirabilis 05/05 -Sputum cx: Providencia 05/05 Abx History Zosyn 4.5gm IV q6h (04/24 - 04/29) Levaquin 750mg IV q24h (04/24-04/30) Zerbaxa 1.5 g IV q8h (04/29 - 05/07) Vancomycin IV (04/24 - 05/06) Ceftriaxone IV (05/07 - 05/25) Linezolid 600 mg PO BID (05/06 - 05/13) Zosyn 3.375 q6h (06/04- 06/05) Vancomycin IV daily goal trough 15-20, (06/03 -06/18) Zerbaxa IV q8h (06/05-06/18) HEME: History of PE ((2011)- chronic anticoagulation with Xarelto -Xarelto Normocytic Anemia- iron deficiency vs anemia of critical illness -Ferrous sulfate 325mg PO daily ENDO: Hypothyroidism- 05/27/16- TSH low, free T4 grossly wnl - Synthroid 50 mcg PO daily Hyperglycemia of Critical care -On SSI (Low scale) MSK General surgery, podiatry, orthopedics, neurologic, rehab medicine consulted RUE Weakness: secondary to hematoma vs C6/C7 neuropathy. L hemispheric pathology and seizure r/o via imaging. Unable to tolerate EMG. Venous Doppler RUE 05/28 negative for DVT. Improving -Aggressive PT: RUE strength training -Ibuprofen 600mg q6h PRN pain control Deconditioned -RLE strengthening internal rotation -OOB to chair -Aggressive OT: feed self Hematoma: S/p I&D by Dr. Velazquez (06/07/16). Small hematoma found during procedure inconsistent with 6cm x 6cm x 8cm abscess per MRI brachial plexus. -Resolved. Consider re-imaging in future if pain or RUE weakness worsens R ankle decubitus ulcer: present on admission, worsened during hospital stay from prolonged immobilization. Wound Cx (07/05): Providencia stuartii. Podiatry, Wound Care consulted. -Daily dressing changes with xeroform, primapore, optifoam dressings Decubitus ulcer -Offload pressure Gout -Allopurinol 300mg daily Hematoma -Resolved s/p I&D, re-image if RUE weakness/pain worsens Imaging: - US negative for DVT (05/28) - MRI brain (04/28) no acute intracranial process - MRI C-spine (05/29): grossly wnl - EEG (05/29): diffuse mild encephalopathy vs normal Stage 2 sleep - MRI brachial plexus (06/03): "Complex multiloculated soft tissue and cystic mass 5.5 x 6 x 7.8 cm involving subscapularis muscle along anterior R scapula - Pathology report (06/07): fragments of blood clot admixed with few minute fragments of adipose and skeletal muscle tissue (2) Acute on chronic respiratory failure with hypoxia and hypercapnia Diagnosis: Principal (3) Fungal infection Diagnosis: Principal (4) Nausea Diagnosis: Principal (5) Hematoma Diagnosis: Principal (6) CHF (congestive heart failure) Diagnosis: Principal (7) Yeast UTI Diagnosis: Principal (8) Moderate protein malnutrition Diagnosis: Principal (9) Pressure ulcer of right leg, stage 2 Diagnosis: Principal (10) Paroxysmal a-fib Diagnosis: Secondary (11) MDD (major depressive disorder) Diagnosis: Principal (12) History of DVT (deep vein thrombosis) Diagnosis: Secondary (13) Hypothyroidism Diagnosis: Secondary (14) On mechanically assisted ventilation Diagnosis: Principal (15) Normocytic anemia Diagnosis: Secondary (16) Gout Diagnosis: Secondary Plan: see plan above (17) Hyperlipidemia Diagnosis: Secondary Plan: see plan above (18) Pneumonia Diagnosis: Principal (19) Hypomagnesemia Diagnosis: Secondary (20) Chronic respiratory failure Diagnosis: Secondary (21) Hypokalemia Diagnosis: Secondary (22) Diarrhea Diagnosis: Secondary (23) Morbid obesity with BMI of 50.0-59.9, adult Diagnosis: Principal (24) Pickwickian syndrome Diagnosis: Principal (25) Sacral decubitus ulcer Diagnosis: Principal (26) Urinary incontinence due to immobility Diagnosis: Secondary (27) NAFLD (nonalcoholic fatty liver disease) Diagnosis: Secondary (28) Splenomegaly Diagnosis: Secondary (29) Somatic complaints, multiple Diagnosis: Principal (30) Pulmonary edema Diagnosis: Principal (31) History of pulmonary embolus (PE) Diagnosis: Secondary (32) CO2 narcosis Diagnosis: Principal (33) Polyneuropathy associated with critical illness Diagnosis: Principal (34) Weakness of right upper extremity Diagnosis: Principal (35) Cervical plexus neuropathy Diagnosis: Principal (36) Anxiety Diagnosis: Secondary (37) Insomnia Diagnosis: Secondary (38) Disordered eating Diagnosis: Secondary (39) Tracheostomy present Diagnosis: Principal (40) HTN (hypertension) Diagnosis: Secondary (41) HCAP (healthcare-associated pneumonia) Diagnosis: Principal (42) Cellulitis of chest wall Diagnosis: Principal (43) Stress hyperglycemia Diagnosis: Secondary (44) Bacteremia Diagnosis: Principal Consultants Critical care, neurology, ID, podiatry, general surgery, orthopedics, neurology , rehab medicine, psychiatry, PT/OT, respiratory Procedures 04/24- Started ventilation 05/02- Emergency Trach Exchange 06/03- PICC line removed 06/07- Debridement of RUE abscess (Dr. Velazquez), RUE drain placed. 06/10- RUE drain removal 07/05- Removed from ventilation, continuous T-piece, remained off ventilation since Brief History Wilfrido Fortune is a 31 year old male with a PMH of chronic respiratory failure s/ p tracheostomy 4 years ago, morbid obesity with BMI 67.6, atrial fibrillation and pulmonary embolism on Xarelto, CHF last ECHO 09/18/2015 showing a grossly normal systolic function with no definitive EF as it was difficult to assess, ECHO on 05/2014 with EF of 40-45% with mildly dilated left atrium, and h/o HTN. Long-term rehab at [facility] and presents to the ED after having low oxygen saturation at the rehab center. Per [facility] report, the patient went to the nurses station stating he wanted to be sent to the hospital and stated "I feel weird." At that time he was noted to be pale, O2 sat at 82% on RA. He was placed back on 6L of oxygen via his trach mask and given a breathing treatment and his O2 sats improved to 95% however would not stay at an appropriate level. Patient was then sent to [facility] for further evaluation. Patient states he uses 6L of oxygen via trach normally. Patient has also been treated for pneumonia at the rehab center. He denies any fevers, chest pain, cough, abdominal pain, or N/V. He denies syncopal episodes and states he remembers all events that occurred today. CBC/BMP: 07/12/16 0547 07/09/16 0430 Significant Findings Laboratory Tests Test 07/10/16 07/12/16 03:50 05:47 White Blood Count 11.8 TH/MM3 14.8 TH/MM3 (4.0-11.0) (4.0-11.0) Red Blood Count 3.91 MIL/MM3 4.23 MIL/MM3 (4.50-5.90) (4.50-5.90) Hemoglobin 10.2 GM/DL 11.0 GM/DL (13.0-17.0) (13.0-17.0) Hematocrit 33.2 % 36.1 % (39.0-51.0) (39.0-51.0) Mean Corpuscular Hemoglobin 26.1 PG 26.1 PG (27.0-34.0) (27.0-34.0) Mean Corpuscular Hemoglobin 30.8 % 30.5 % Concent (32.0-36.0) (32.0-36.0) Red Cell Distribution Width 22.9 % 23.9 % (11.6-17.2) (11.6-17.2) Imaging Last Impressions Chest X-Ray 06/17/16 0600 Signed Impressions: Service Date/Time: Friday, June 17, 2016 04:38 - CONCLUSION: No significant change. Garcia Ramirez MD Liver Ultrasound 06/03/16 0000 Signed Impressions: Service Date/Time: Friday, June 03, 2016 08:10 - CONCLUSION: 1. There is some sludge in the gallbladder. This can be seen with chronic gallbladder disease. 2. Fatty infiltration of the liver which appears to be enlarged. 3. No mechanical biliary tract obstruction. 4. Splenomegaly. Lázaro Frankel MD Brachial Plexus MRI 06/03/16 0000 Signed Impressions: Service Date/Time: Friday, June 03, 2016 12:42 - CONCLUSION: There is a complex multiloculated soft tissue and cystic mass measuring approximately 5.5 x 6.0 x 7.8 cm involving the subscapularis muscle along the anterior right scapula. The differential considerations include neoplastic disease, infection and hematoma. Recommend a CT scan of the right shoulder to pre-plan for CT-guided aspiration/biopsy of this abnormality. Lázaro Frankel MD Cervical Spine MRI 05/29/16 0000 Signed Impressions: Service Date/Time: Sunday, May 29, 2016 13:51 - CONCLUSION: Limited study but appears normal. Vishnu Woodward MD Brain MRI 05/29/16 0000 Signed Impressions: Service Date/Time: Sunday, May 29, 2016 13:51 - CONCLUSION: 1. Focal chronic ischemic change in the high right frontal parietal convexity stable from previous CT scan. 2. No acute intracranial abnormality. 3. Minimal nonspecific white matter changes. Vishnu Woodward MD Upper Extremity Ultrasound 05/28/16 0000 Signed Impressions: Service Date/Time: Saturday, May 28, 2016 10:16 - CONCLUSION: 1. Negative for deep venous thrombosis. Venous line noted in cephalic, subclavian and internal jugular vein. Horacio Gupta MD Abdomen X-Ray 04/29/16 0000 Signed Impressions: Service Date/Time: Friday, April 29, 2016 07:12 - CONCLUSION: Suspect Dobbhoff tube in the distal stomach. Garcia Lujan MD PE at Discharge CONST: Morbidly obese male in [facility]. DERM: Flat, erythematous, blanching rash on bilateral arms, forearms, deltoids, upper torso. Well-healing scar R shoulder. White flaky patch of skin on R arm ~ 2inches diameter. R lat malleolus with 1.5 x 1.5 cm skin break down. Area in bandage- c/d/i. Numerous skin folds 2/2 habitus. Dry, flaking skin on feet. HEENT: Tracheotomy site c/d/i. Poor dentition CV: Distant heart sounds. RRR RESP: Anterior exam with end expiratory wheezing. Breathing comfortably on T piece GI: Abdomen soft, obese,NT. +BS. Bruises on lower abdomen. MSK: External rotation of RLE and LLE NEURO: CN grossly normal. PSYCH: Appears resigned/moderately apathetic. Begrudgingly complies with care requests. Poor insight. . Hospital Course 31y male with super morbid obesity (BMI 60-69) from [facility], hospitalized 04/24/16-07/11/15 for treatment of acute on chronic respiratory failure after tracheostomy leak. After emergency tracheostomy replacement , patient had respiratory decompensation, requiring placement on a ventilator , as well as treatment for HCAP and yeast UTI. Patient was slowly weaned to BiPAP and transitioned off vent 07/05/15. Currently on T-piece, 8-10L O2, FI02 70 , with stable saturations in low 90s. He presented to hospital on 6L O2 via trach. Hospital course was complicated by treatment for bacteremia, MDRO UTI, cellulitis, fungal dermatitis, weakness RUE secondary to hematoma and C6-C7 neuropathy, chronic nausea, hx afib, CHF, generalized weakness, and R ankle ulcer. Proteus and enterococcus Bacteremia, secondary to PICC infection, has been successfully treated with vancomycin and Zerbaxa, ended 06/18/16 per ID. Willard catheter likely colonized with MDRO at baseline. Hematoma R shoulder nonoperative, s/p I&D, PT working overall strength. Chronic nausea intermittent , likely psychosomatic vs GERD. Xarelto and Cardiazem for Afib. Bumex for CHF. OT for generalized weakness. R ankle ulcer: offload area and wound care. He has been off mechanical ventilation and CPAP since 07/05/15. It was difficult to get the patient off of mechanical ventilation. Since being weaned, he is extremely reluctant to leave hospital. Has exhibited manipulative behavior such as breath holding in an attempt to desaturate to be placed on vent, and rolling/ leaning sideways from chair in attempt to 'threaten" a fall so he can return to bed and not be in the chair. Will reluctantly participate in PT exercises, though many somatic complaints interfere with his PT/OT/OOB to chair. Family practice and critical care in accord we do not think he should go back on mechanical ventilation unless he clinically declines. There also much be strict vigilance for adherence to hospital diet, as family has repeatedly brought in outside food. He is clinically stable to be discharged to SNF with medications and follow up, as below. . Pt Condition on Discharge: Stable Discharge Disposition: Discharge to SNF Discharge Instructions DIET: Follow Instructions for: Heart Healthy Diet (per dietary, 2000 calories, heart healthy, regular, thin liquids, restrict/prohibit outside food/enforce adherence to diet) Speech Therapy-Diet Recommends: Regular Activities you can perform: Regular-No Restrictions Follow up Referrals: PCP Follow-up - 1 Week Pulmonology - 1 Week New Medications: Budesonide-Formoterol Inh (Symbicort Inh) 160-4.5 Mcg/Act Aero 2 PUFF INH BID #1 Ref 11 INHALER Bumetanide (Bumetanide) 1 Mg Tab 1 MG PO DAILY #30 Ref 11 TAB Chlorhexidine Gluconate (Mouth) Liq (Chlorhexidine Gluconate (Mouth) Liq) 0.12% Soln 15 ML MT BID@20 #300 Ref 11 ML Collagenase (Santyl) 250 Unit/Gm Oin 1 APPLIC TOP DAILY #1 Ref 11 TUBE Diltiazem (Diltiazem) 90 Mg Tab 90 MG PO QID #120 Ref 11 TAB Ferrous Sulfate (Ferrous Sulfate) 325 Mg Tab 325 MG PO DAILY #30 Ref 11 TAB Fluconazole (Diflucan) 200 Mg Tab 200 MG PO DAILY #5 TAB Ondansetron Odt (Ondansetron Odt) 4 Mg Tab 4 MG PO Q4H PRN NAUSEA OR VOMITING #120 Ref 11 TAB Potassium Chloride Microencaps (Potassium Chloride Microencaps) 20 Meq Tab 40 MEQ PO Q12H #120 Ref 11 TAB Quetiapine (Seroquel) 100 Mg Tab 100 MG PO HS #30 Ref 11 TAB Sertraline (Zoloft) 100 Mg Tab 200 MG PO DAILY #30 Ref 11 TAB Continued Medications: Acetaminophen (Acetaminophen) 325 Mg Tab 650 MG PO Q4H PRN pain TAB Allopurinol (Allopurinol) 300 Mg Tab 300 MG PO DAILY Gout #30 Ref 0 TAB Atorvastatin (Atorvastatin) 10 Mg Tab 10 MG PO DAILY Cholesterol Management #30 Ref 0 TAB Fenofibrate (Fenofibrate) 48 Mg Tab 48 MG PO DAILY #30 Ref 0 TAB Levothyroxine (Levothyroxine) 50 Mcg Tab 50 MCG PO DAILY Thyroid #30 Ref 0 TAB Miconazole Topical (Miconazole Topical) 2% Cream 1 APPLIC TOPICAL BID PRN yeast Ref 0 GM Montelukast (Montelukast) 10 Mg Tab 10 MG PO DAILY #30 Ref 0 TAB Rivaroxaban (Xarelto) 20 Mg Tab 20 MG PO daily at 1700 Blood Clot Prevention Ref 0 TAB Zolpidem (Ambien) 5 Mg Tab 5 MG PO HS PRN INSOMNIA Ref 0 TAB Discontinued Medications: Albuterol Neb (Albuterol Neb) 2.5 Mg/0.5 Ml Neb 2.5 MG NEB Q4HR Note: The Albuterol Sulfate Inhalation Solution is concentrated and must be diluted. Read complete instructions carefully before using. Breathing Treatment #1 Ref 0 NEBULE Alprazolam (Xanax) 0.5 Mg Tab 0.5 MG PO Q6H PRN ANXIETY Ref 0 TAB Clarithromycin (Clarithromycin) 500 Mg Tab 500 MG PO BID Infection Ref 0 TAB Fluticasone-Salmeterol Inh (Advair Diskus Inh) 250-50 Mcg/Blist Aer 1 PUFF INH BID Rinse mouth after use. #1 Ref 0 INHALER Furosemide (Furosemide) 40 Mg Tab 40 MG PO BID #60 Ref 0 TAB Hydralazine (Hydralazine) 50 Mg Tab 75 MG PO Q8HR Take with a meal PRN HTN Ref 0 TAB Loperamide (Loperamide) 2 Mg Tab 4 MG PO Q8HR One tablet after each loose stool. Not to exceed 8 tablets per day. PRN DIARRHEA Ref 0 TAB Melatonin (Melatonin) 10 Mg Tab 6 MG PO HS PRN SLEEP Ref 0 TAB Metoprolol Tartrate (Metoprolol Tartrate) 50 Mg Tab 50 MG PO Q12HR #60 Ref 0 TAB Potassium Chloride ER (Potassium Chloride ER) 10 Meq Cap 10 MEQ PO BID Electrolyte Replacement #60 Ref 0 CAP Prednisone (Prednisone) 5 Mg Tab 5 MG PO DAILY Ref 0 TAB Holley Baires MD R1 Jul 12, 2016 10:40
[2016-07-12] MEDS: ACETAMINOPHEN 325 MG TAB PO PRN (16:35)
[2016-07-12] MEDS: POTASSIUM CHLORIDE 20 MEQ CONTROLLED RELEASE TAB PO SCH ×2 (16:35→20:54)
[2016-07-12] MEDS: ZOLPIDEM TARTRATE 10 MG TAB PO PRN (20:52)
[2016-07-12] MEDS: QUEtiapine FUMARATE 100 MG TAB PO SCH (20:53)
[2016-07-13] VITALS (11 sets, daily range): BP systolic 117–128; BP diastolic 62–67; PULSE 87–94; RESP 24–28; TEMP 98.2–98.4; O2SAT 91–97
[2016-07-13] MEDS: INSULIN NovoLIN REGULAR SUPPLEMENTAL SCALE SQ SCH (06:00)
[2016-07-13] MEDS: LEVOTHYROXINE SODIUM 50 MCG TAB PO SCH (06:32)
[2016-07-13] MEDS: RESP: BUDESONIDE 0.5 MG/2 ML NEB NEB SCH ×2 (07:35→20:15)
--- NOTE | 2016-07-13 07:56 | HHI.FPPN ---
Subjective Remarks No acute issues overnight. Able. Patient continues to saturate 9394 percent on 70% FiO2 with flow rate of 10. Intake 540ml, output 2100ml, balance -1560ml. He notes a mild headache this morning. Otherwise he denies any chest pain or shortness of breath. With significant encouragement, he is able to sit in the chair during the day. Objective Vitals Vital Signs Date Time Temp Pulse Resp B/P Pulse Ox O2 Delivery O2 Flow Rate FiO2 07/13/16 06:00 90 07/13/16 04:00 92 T-Piece 70 07/13/16 04:00 98.2 89 26 119/63 93 07/13/16 04:00 89 07/13/16 02:00 90 07/13/16 00:00 98.4 92 26 121/62 94 07/13/16 00:00 92 07/13/16 00:00 92 T-Piece 70 07/12/16 22:00 96 07/12/16 20:00 97 07/12/16 20:00 92 T-Piece 70 07/12/16 20:00 98.8 97 26 146/68 94 07/12/16 19:58 90 T-piece 10.00 70 07/12/16 18:00 89 07/12/16 16:00 95 T-Piece 70 07/12/16 16:00 98.6 96 28 121/71 96 07/12/16 16:00 95 07/12/16 14:00 95 07/12/16 12:00 95 T-Piece 70 07/12/16 12:00 98.1 98 26 124/76 95 07/12/16 12:00 100 07/12/16 10:00 100 07/12/16 08:02 90 T-piece 10.00 70 07/12/16 08:00 98.1 101 26 119/66 91 07/12/16 08:00 92 T-Piece 70 07/12/16 08:00 101 I/O 07/12/16 07/12/16 07/12/16 07/13/16 07/13/16 07/13/16 07:00 15:00 23:00 07:00 15:00 23:00 Intake Total 200 ml 300 ml 120 ml 120 ml Output Total 200 ml 800 ml 600 ml 700 ml Balance 0 ml -500 ml -480 ml -580 ml Intake Oral 200 ml 300 ml 120 ml 120 ml IV Total 0 ml Output Urine Total 200 ml 800 ml 600 ml 700 ml Result Diagram: 07/12/16 0547 07/09/16 0430 Imaging Last Impressions Chest X-Ray 06/17/16 0600 Signed Impressions: Service Date/Time: Friday, June 17, 2016 04:38 - CONCLUSION: No significant change. Garcia Ramirez MD Liver Ultrasound 06/03/16 0000 Signed Impressions: Service Date/Time: Friday, June 03, 2016 08:10 - CONCLUSION: 1. There is some sludge in the gallbladder. This can be seen with chronic gallbladder disease. 2. Fatty infiltration of the liver which appears to be enlarged. 3. No mechanical biliary tract obstruction. 4. Splenomegaly. Lázaro Frankel MD Brachial Plexus MRI 06/03/16 0000 Signed Impressions: Service Date/Time: Friday, June 03, 2016 12:42 - CONCLUSION: There is a complex multiloculated soft tissue and cystic mass measuring approximately 5.5 x 6.0 x 7.8 cm involving the subscapularis muscle along the anterior right scapula. The differential considerations include neoplastic disease, infection and hematoma. Recommend a CT scan of the right shoulder to pre-plan for CT-guided aspiration/biopsy of this abnormality. Lázaro Frankel MD Cervical Spine MRI 05/29/16 0000 Signed Impressions: Service Date/Time: Sunday, May 29, 2016 13:51 - CONCLUSION: Limited study but appears normal. Vishnu Woodward MD Brain MRI 05/29/16 0000 Signed Impressions: Service Date/Time: Sunday, May 29, 2016 13:51 - CONCLUSION: 1. Focal chronic ischemic change in the high right frontal parietal convexity stable from previous CT scan. 2. No acute intracranial abnormality. 3. Minimal nonspecific white matter changes. Vishnu Woodward MD Upper Extremity Ultrasound 05/28/16 0000 Signed Impressions: Service Date/Time: Saturday, May 28, 2016 10:16 - CONCLUSION: 1. Negative for deep venous thrombosis. Venous line noted in cephalic, subclavian and internal jugular vein. Horacio Gupta MD Abdomen X-Ray 04/29/16 0000 Signed Impressions: Service Date/Time: Friday, April 29, 2016 07:12 - CONCLUSION: Suspect Dobbhoff tube in the distal stomach. Garcia Lujan MD Objective Remarks CONST: Morbidly obese male laying in bed in NAD. DERM: Flat, erythematous, blanching rash with central clearing on bilateral arms , forearms, deltoids, upper torso, improved compared to prior examination. Well- healing scar R shoulder. White flaky patch of skin on R arm ~2inches diameter. R lat malleolus with 1.5 x 1.5 cm skin break down. Area in bandage- c/d/i. Numerous skin folds 2/2 habitus. Dry, flaking skin on feet. HEENT: Tracheotomy site c/d/i. Poor dentition. Moist mucous membranes. CV: Distant heart sounds. RRR. RESP: Anterior exam with end expiratory wheezing. Breathing comfortably on T piece GI: Abdomen soft, obese,NT. +BS. MSK: External rotation of RLE and LLE NEURO: CN grossly normal. PSYCH: Appears resigned/moderately apathetic. Begrudgingly complies with care requests. Poor insight. . Procedures 04/24- Started ventilation 05/02- Emergency Trach Exchange 06/03- PICC line removed 06/07- Debridement of RUE abscess (Dr. Velazquez), RUE drain placed. 06/10- RUE drain removal 07/05- Removed from ventilation, continuous T-piece, remained off ventilation since A/P Assessment and Plan 31yo male with super morbid obesity with chronic respiratory failure s/p tracheostomy 4 years ago. Admitted 05/13/16 with respiratory failure. Currently awaiting placement for discharge. Discharge Planning Pending placement. Have been attempting to place since 07/08/15. Off mechanical ventilation since 07/05/15. On T-piece using 8-10L. Case management working on placement. Dr. Brown did peer to peer with [employer] for placement at [facility] (refused to cover cost of admission, SNF not in their approved list) Dr. Morgan, , called insurance 07/10/12- did not get a response. Denied placement to [facility]. Denied placement [facility] (can accommodate up to 6L oxygen, pt using 8L) dw Dr. Watts Problem List: (1) PLAN Status: Chronic Plan: NEURO/PSYCH CO2 narcosis -Resolved with oxygen supplementation Polyneuropathy of Critical illness -Continue PT, discharge to SNF RUE weakness/pain & Cervical neuropathy. Did not tolerate EMG of RUE. MRI of RUE and C-spine WNL. -Continue PT/OT, Frequent rotations, OOB to chair -Ibuprofen 600mg q6h pain Anxiety/MDD- -Initially refusing meals, bathing. Improved. However, continued reluctance to participate in PT/OT. Many somatic complaints (RUBY, nausea, nonspecific pain, etc) -Seroquel 100mg HS -Zoloft 200mg daily Insomnia- -Zolpidem 5mg HS Disordered eating- At SNF, hx of hiding food in body folds. Did not adhere to dietary restraint while in hospital- family repeatedly brought in food: pizza, pringles, etc. Poor insight. 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 s/p new trach placement 05/02. Clinical course complicated by HCAP and bacteremia. s/p Bronchoscopy 05/11 - BAL results negative . Resolved, weaned from ventilator and CPAP, off ventilator since 07/05/15. Treated with bronchodilators and weaning from vent. -Resolved Chronic Respiratory Failure s/p Tracheostomy (2011) -Aggressive pulmonary toliet, trach care, oxygen supplementation, as needed for O2 saturation 92%+ Healthcare associated pneumonia -Resolved, see ID Pickwickian Syndrome -Oxygen support PRN for saturation 92%+, wean as tolerated History of pulmonary embolism 2011 -Continue home Xarelto Pulmonary edema -diuresis PRN (see CHF) CV: CHF: suspected HF with poor EF, though unable to confirm via ECHO (04/25) due to poor imaging. BNP elevated on admission, downtrended. -Monitor HR and BP keep MAP>65mmHg -Bumex 1mg daily PO Paroxysmal atrial fibrillation (history of, currently SNR) -Cardiazem 90mg QID -Xarelto GI/LIVER Wt 480 lbs on admission (04/25/16). Wt 414 lbs on discharge (07/12/15) Super morbid obesity with BMI 60-69 (on admission), 50-59 (current) -Diet per nutrition recommendations- regular, thin liquids, 2000 calorie heart healthy diet (1.5L fluids, 2g sodium, no caffeine), no outside food Nausea- GERD vs gastroparesis vs psychosomatic. Chronic- waxing and waning. -Zofran ODT q4h PRN -Protonix 20mg BID Hyperlipidemia -Lipitor 10g daily -TriCor 40mg by mouth daily Episodes of food refusal -Adhere to hospital diet Splenomegaly -Incidental finding. Continue to monitor Fatty Liver Disease: per Liver US 06/03/16 -Lose weight to healthy weight BMI <25 Diarrhea- Chronic. Present prior to admission. C. difficile testing negative. Ddx: poor diet vs medication side effect. -Adhere to hospital diet, no outside food, continue to monitor FEN/RENAL: Chronic Hypokalemia: KCL 40 meq BID replacement REYES +ICU electrolyte replacement protocol PRN Metabolic alkalosis - Monitor renal function, I/O, electrolytes replacement per protocol. Urinary incontinence: Unable to use bedside commode secondary to body habitus. -Rectal bag to collect urine and keep sacral area clean. No indication for willard catheter. Hypomagnesemia -Replete per ICU protocol ID/DERM Infectious disease consulted Fungal dermatitis: Approx two weeks old. Initially under where trach tube ran/ area of increased moisture then spread from L shoulder to L shoulder/bilateral arms/upper torso. Improving with: -Diflucan 200mg daily (07/11- 07/16)- six days total -Wound culture ordered, follow culture -Continue nystatin powder -Continue myconizole creme Resolved (see below) Bacteremia- Enterococcal faecalis bacteremia, Pseudomonas bacteremia (06/02, 06/03) HCAP, Sepsis, Fever, Yeast UTI, Hx MDRO, Cellulitis R arm, Leukocytosis Cultures -Blood culture: aerobic and anaerobic bottles - enterococcus faecalis, pseudomonas aeruginosa 06/02, 06/03 -Urine culture: pseudomonas aeruginosa- 06/02 -Wound culture: pseudomonas aeruginosa- 06/02 -Sputum culture: Pseudomonas- 06/02 -Sputum cx- NG- 05/15 -Wound cx: Proteus, Pseudomonas, Group D Enterococcus- 05/13 -Bronchoscopy and re-culture 05/10- NG -Wound culture Pseudomonas MDR 04/27 -Sputum culture-Pseudomonas MDR- 04/27 -Urine cx: Proteus Mirabilis 05/05 -Sputum cx: Providencia 05/05 Abx History Zosyn 4.5gm IV q6h (04/24 - 04/29) Levaquin 750mg IV q24h (04/24-04/30) Zerbaxa 1.5 g IV q8h (04/29 - 05/07) Vancomycin IV (04/24 - 05/06) Ceftriaxone IV (05/07 - 05/25) Linezolid 600 mg PO BID (05/06 - 05/13) Zosyn 3.375 q6h (06/04- 06/05) Vancomycin IV daily goal trough 15-20, (06/03 -06/18) Zerbaxa IV q8h (06/05-06/18) HEME: History of PE (2011)- chronic anticoagulation with Xarelto -Xarelto Normocytic Anemia- iron deficiency vs anemia of critical illness -Ferrous sulfate 325mg PO daily ENDO: Hypothyroidism- 05/27/16- TSH low, free T4 grossly wnl - Synthroid 50 mcg PO daily Hyperglycemia of Critical care -On SSI (Low scale) MSK General surgery, podiatry, orthopedics, neurologic, rehab medicine consulted RUE Weakness: secondary to hematoma vs C6/C7 neuropathy. L hemispheric pathology and seizure r/o via imaging. Unable to tolerate EMG. Venous Doppler RUE 05/28 negative for DVT. Improving -Aggressive PT: RUE strength training -Ibuprofen 600mg q6h PRN pain control Deconditioned -RLE strengthening internal rotation -OOB to chair -Aggressive OT: feed self Hematoma: S/p I&D by Dr. Velazquez (06/07/16). Small hematoma found during procedure inconsistent with 6cm x 6cm x 8cm abscess per MRI brachial plexus. -Resolved. Consider re-imaging in future if pain or RUE weakness worsens R ankle decubitus ulcer: present on admission, worsened during hospital stay from prolonged immobilization. Wound Cx (07/05): Providencia stuartii. Podiatry, Wound Care consulted. -Daily dressing changes with xeroform, primapore, optifoam dressings Decubitus ulcer -Offload pressure Gout -Allopurinol 300mg daily Hematoma -Resolved s/p I&D, re-image if RUE weakness/pain worsens Imaging: - US negative for DVT (05/28) - MRI brain (04/28) no acute intracranial process - MRI C-spine (05/29): grossly wnl - EEG (05/29): diffuse mild encephalopathy vs normal Stage 2 sleep - MRI brachial plexus (06/03): "Complex multiloculated soft tissue and cystic mass 5.5 x 6 x 7.8 cm involving subscapularis muscle along anterior R scapula - Pathology report (06/07): fragments of blood clot admixed with few minute fragments of adipose and skeletal muscle tissue (2) Acute on chronic respiratory failure with hypoxia and hypercapnia Status: Resolved (3) Fungal infection Status: Acute (4) Nausea Status: Chronic (5) Hematoma Status: Acute (6) CHF (congestive heart failure) Status: Chronic (7) Yeast UTI Status: Resolved (8) Moderate protein malnutrition Status: Chronic (9) Pressure ulcer of right leg, stage 2 Status: Chronic (10) Paroxysmal a-fib Status: Chronic (11) MDD (major depressive disorder) Status: Chronic (12) History of DVT (deep vein thrombosis) Status: Chronic (13) Hypothyroidism Status: Chronic (14) On mechanically assisted ventilation Status: Chronic (15) Normocytic anemia Status: Chronic (16) Gout Status: Chronic Plan: see plan above (17) Hyperlipidemia Status: Chronic Plan: see plan above (18) Pneumonia Status: Resolved (19) Hypomagnesemia Status: Resolved (20) Chronic respiratory failure Status: Chronic (21) Hypokalemia Status: Chronic (22) Diarrhea Status: Chronic (23) Morbid obesity with BMI of 50.0-59.9, adult Status: Chronic (24) Pickwickian syndrome Status: Chronic (25) Sacral decubitus ulcer Status: Chronic (26) Urinary incontinence due to immobility Status: Chronic (27) NAFLD (nonalcoholic fatty liver disease) Status: Chronic (28) Splenomegaly Status: Chronic (29) Somatic complaints, multiple Status: Chronic (30) Pulmonary edema Status: Chronic (31) History of pulmonary embolus (PE) Status: Chronic (32) CO2 narcosis Status: Resolved (33) Polyneuropathy associated with critical illness Status: Chronic (34) Weakness of right upper extremity Status: Chronic (35) Cervical plexus neuropathy Status: Chronic (36) Anxiety Status: Chronic (37) Insomnia Status: Chronic (38) Disordered eating Status: Chronic (39) Tracheostomy present Status: Chronic (40) HTN (hypertension) Status: Chronic (41) HCAP (healthcare-associated pneumonia) Status: Resolved (42) Cellulitis of chest wall Status: Resolved (43) Stress hyperglycemia Status: Resolved (44) Bacteremia Status: Resolved Problem Qualifiers (1) CHF (congestive heart failure): Qualified Code: I50.9 - Acute on chronic congestive heart failure, unspecified congestive heart failure type (2) MDD (major depressive disorder): Qualified Code: F33.2 - Severe episode of recurrent major depressive disorder, without psychotic features (3) Hypothyroidism: Qualified Code: E03.9 - Hypothyroidism, unspecified type (4) Chronic respiratory failure: Qualified Code: J96.10 - Chronic respiratory failure, unspecified whether with hypoxia or hypercapnia (5) Insomnia: Qualified Code: F51.04 - Psychophysiological insomnia (6) HTN (hypertension): Qualified Code: I10 - Essential hypertension Allegra Ko MD R2 Jul 13, 2016 07:56
[2016-07-13] MEDS: CHLORHEXIDINE 0.12% (ORAL KIT) 15 ML CUP MT SCH ×2 (09:18→19:48)
[2016-07-13] MEDS: ATORVASTATIN 10 MG TAB PO SCH (09:18)
[2016-07-13] MEDS: SODIUM CHLORIDE 0.9% FLUSH 5 ML FLUSH IVF SCH ×2 (09:18→19:49)
[2016-07-13] MEDS: ONDANSETRON ODT 4 MG TAB PO PRN (09:18)
[2016-07-13] MEDS: PANTOPRAZOLE SOD 20 MG DELAYED RELEASE TAB PO SCH ×2 (09:19→19:49)
[2016-07-13] MEDS: ALLOPURINOL 300 MG TAB PO SCH (09:19)
[2016-07-13] MEDS: RIVAROXABAN 20 MG TAB PO SCH (09:19)
[2016-07-13] MEDS: MONTELUKAST SODIUM 10 MG TAB PO SCH (09:19)
[2016-07-13] MEDS: FLUCONAZOLE 200 MG TAB PO SCH (09:19)
[2016-07-13] MEDS: SERTRALINE HCL 100 MG TAB PO SCH (09:19)
[2016-07-13] MEDS: DILTIAZEM HCL 90 MG TAB PO SCH ×4 (09:20→19:49)
[2016-07-13] MEDS: FENOFIBRATE 48 MG TAB PO SCH (09:20)
[2016-07-13] MEDS: BUMETANIDE 1 MG TAB PO SCH (09:20)
[2016-07-13] MEDS: FERROUS SULFATE 325 MG (65 MG ELEMENTAL IRON) TAB PO SCH (09:20)
[2016-07-13] MEDS: MULTIVITAMIN TAB PO SCH (09:20)
--- NOTE | 2016-07-13 09:54 | HHI.CCPN ---
Subjective Remarks/Hospital Course 31 year old morbidly obese (BMI 68) male with chronic respiratory failure s/p tracheostomy 4 years ago, atrial fibrillation and pulmonary embolism on Xarelto , COPD, CHF and h/o HTN. He presented from [facility] ([place] [place] with low oxygen saturation apparently his oxygen saturation was 82% on RA. He was placed back on 6L of oxygen via his trach mask and given a breathing treatment, initially improved however he started drifting back to low 80s again. Chest x-ray showed bibasilar infiltrates and pulmonary edema. [facility] and was started on IV steroids IV vancomycin and Zosyn and Levaquin for healthcare associated pneumonia. After starting ACV, patient was more awake but there was a significant amount of air leak around his tracheostomy. Patient has had a Shiley 6.0 Proximal XLT, but the marine pilot balloon had been cut off. 05/02 the patient became acutely hypoxemic with a large cuff leak, underwent emergency trach exchange at bedside by Dr. Macias. FiO2 65% PEEP 14 05/13 Patient is on ventilator via trach, on Fentanyl infusion however he is awake and alert. On PRVC with FIO2 40%. Afebrile. 05/14 No acute events overnight. Tmax 99.8. Patient is awake, alert on ventilator via trach still requiring increase O2. On PRVC with PEEP: 10 and FIO2 70%. 05/15 Pt acutely desaturated after he was found. Saturation down to 70% on 100 % oxygen. Bag and mask ventilation carried out, with eventual improvement on oxygen saturation to 85%. Patient was placed on PC/AC mode of ventilation, with PEEP of 15 and instructed to pressure of 30. Eventually oxygen saturation improved to 95%. Lasix him today as the chest x-ray from today shows increasing bilateral infiltrate and pulmonary edema. Sputum culture will be sent 05/16 Patient is on Fentanyl and Diprivan infusion but awake and alert. Afebrile. On PC/AC with PEEP:15, IP: 22, IT:1.3 and FIO2 50% 05/17 Patient is off Diprivan and remains on Fentanyl infusion for sedation. On PC/AC with PEEP: down 10 and FIO2 40%. Afebrile. 05/18 Patient remains on ventilator via trach on PC/AC with PEEP:12, FIO2 40%, IP:22, IT:1.0. On Fentanyl infusion 05/19 No acute events overnight. On Fentanyl infusion but awake and alert. Afebrile. 05/20 Tolerating C Pap 17/12 FIO2 40, sats 98%. RSBI in 20s, appears can be weaned further. Afebrile. Speech therapy evaluated and ok for regular diet. Starting with full liquid. 05/21 Will wean PSV to 15/10. Tolerated full liquids, will advance to regular diet per speech recs. 05/22 On PSV 15/10 FIO2 40 with sats 92%. Smiling today. Glad to be eating regular food again. 05/23 No acute events overnight. Remains on CPAP with PS 15, PEEP:10 and FIO2 40 %. Afebrile. Off Fentanyl drip. Afebrile. Awake and alert. 05/24 Patient is on CPAP 06/06 with 40% FIO2. Afebrile. Awake and alert, on no sedation. 05/25 No acute events overnight. Patient was placed back on PC/AC overnight. Tolerated CPAP trials during day yesterday. Awake and alert. On no drips. Afebrile. 05/26 Afebrile. Tmax 98.6. Today the patient complained of nausea requiring Zofran. The patient has a lack of an appetite, with noted hypoglycemia early this a.m. blood glucose level 69. Patient tolerating CPAP well greater than 12 hours in the last 24 hours. 05/27 The patient tolerated CPAP for over 36 hours, O2 sat a knee 94% on FIO2 40 %. The patient had an increase in appetite. The patient continues on full liquid diet. 05/28 The patient declined physical therapy treatment, yesterday and also overnight declined to be moved by nursing staff. The patient refused dinner last evening, of note patient was reevaluated by speech therapy and can consume a heart healthy diet with thin liquids. The patient continues on physical therapy for strengthening exercises of all extremities specifically noted right upper extremity continues to be weak with gross fibrillations noted in hand and forearm. 05/29 Afebrile. No change in right upper extremity weakness. The patient was seen by neurology yesterday plan for MRI today if possible in hospital MRI, and EMG studies. No complaints overnight. Patient continues to refuse to have activities performed, movement in bed. The patient appears to be depressed, psychiatry consulted. 05/30: Patient alert awake on CPAP. Following commands. Psych agrees the patient is depressed. MRI brain no acute findings 05/31: Awake alert. on PS 15/8. EMG could not be completed due to patient becoming anxious. Otherwise no acute events reported overnight 06/01: Remains PS from 11/02. Right upper extremity weakness persists. EMG to be repeated on Friday. Will need MRI of the brachial plexus. Chest x-ray is unchanged 06/02: States that "not feeling well". Febrile to 101.5. White count increasing but still within the normal range. Pancultured. We'll request ID reevaluation. 06/03: Resting in bed on C Pap/pressure support via tracheostomy. One out of 2 sets of blood cultures sent on 06/02 positive for gram-positive cocci. 06/04: Resting in bed on mechanical ventilation via tracheostomy. Afebrile overnight. MRI brachial plexus (06/03) revealed a collection near the right subscapularis muscle, possibly an abscess. Discussed with ID, orthopedics Dr. Velazquez consulted. I discussed the case with Dr. Velazquez this morning who feels this is probably an abscess however would be difficult to access surgically and he plans to set up percutaneous drainage by interventional radiology. 06/05: Resting in bed on mechanical ventilation via tracheostomy. Remains afebrile. Reportedly IR cannot do percutaneous drainage of collection involving right subscapularis muscle. 06/06: Resting in bed on mechanical ventilation via tracheostomy. Can actually speak around the trach. Remains afebrile. Dr. Velazquez evaluated patient and is scheduling surgery for drainage of fluid collection involving the right subscapularis muscle. 06/07: Resting in bed on mechanical ventilation via tracheostomy. Awaiting surgery today. 06/08: Status post I&D of collection near right shoulder/subscapularis on 06/[address] Velazquez. This morning patient is awake and alert complained of some pain at the surgical site. Remains on mechanical ventilation on C Pap/pressure support. 06/09: Sleeping, arousable. On mechanical ventilation with C Pap/pressure support overnight. Labs pending 06/10 No acute events overnight. On CPAP with PS 12, PEEP: 8, FIO2 40%. Afebrile. 06/11 Patient remains on CPAP with PS 10, PEEP: 8 and FIO2 40%. Afebrile. 06/12: No acute events overnight. Remains on CPAP 10/5. No specific complaints 06/13: Tolerating C Pap 10 over 5. Awake and alert following commands. Hemoglobin dropped from 8.6-7.1, no obvious bleeding. Sodium 140-149. Will give 1 unit of PRBC with 1 mg IV Bumex 06/14 No acute events overnight. On CPAP with PS 10, PEEP:5 and FIO2 50%. Afebrile. 06/15 No acute events overnight. Remains on CPAP 10/5 with 40% FIO2. Afebrile. 06/16 Patient remains on ventilator via trach on CPAP with PS 10, PEEP:5 and FIO2 40%. 06/17: Resting in bed on mechanical ventilation via tracheostomy. Feeling nauseous. 06/18: OOB in reclining chair. Reporting low back and leg pain that is positional. Continued nausea, denies emesis. CPAP w PS 5 FIO2 40%. Will attempt Tpiece trial today. Discontinue Vanc + Zerbaxa today per ID 06/19: No acute events overnight. Afebrile. HTN to 160/80. CPAP with PS 10. PEEP 10 FIO2 45. Failed Tpiece trial yesterday- desaturated to mid 70s. Denies SOB/CP. Nausea is less than before. Bed is broken and patient would like the mattress to "rotate". Per nursing, they are working to fix it. 06/20: No acute events overnight. Afebrile. HTN to 145/70. CPAP with PEEP 10 FIO2 45, with saturation 93=94%. Pt has no acute complaints. Denies SOB/CP/ Nausea. Didn't know why he threw up during PT yesterday. Denies pain. Still having diarrhea (chronic years in duration issue). Was eating Pringles in bed. Per nursing, does not eat hospital food- waits for mother to bring him food. He was counseled to eat the hospital food which is healthier for him and that he needs to stop eating food brought in by his mother. 06/21: Remains on mechanical ventilation, CPAP with pressure support. 06/22: On mechanical ventilation on C Pap with pressure support. Denies any nausea or abdominal pain. Appears comfortable. 06/23: Resting in bed on mechanical ventilation with C Pap/pressure support +10/ +5. Denies any shortness of breath denies any abdominal pain or nausea currently. 06/24: Refusing to get OOB with physical therapy today. I had a long discussion with the patient about the fact that he has been inpatient for months now and he is severely deconditioned. He must get out of bed with PT to clinically improve, and deconditioning is a major factor in his chronic respiratory failure. He denies chest pain or SOB. does endorse some nausea today. 06/25: tolerated 4 hours OOB yesterday with 4 hours of trach collar. plan to go 6 hours today. 06/26: tolerated OOB to chair 5 hours yesterday but only 1.5hr of trach collar due to hypoxia. 06/27: tolerated OOB to chair for 6 hours yesterday and almost 5 hours of trach collar. daily, he continues to be very resistant to participating in PT and getting OOB. He again asks if he can lay in bed today. 06/28: tolerated 6 hours of trach collar yesterday. OOB for almost 8 hours. 06/29: continues to tolerate daily trach collar trials. OOB for 8 hours again yesterday. 06/30: tolerated 8 hours of trach collar yesterday. OOB for 7 hours. can do trach collar as tolerated. he continues to make attempts to refuse physical therapy and does not wish to participate in his care. 07/01: no changes. did well with 8 hours of trach collar and 8-9 hours of OOB. will attempt to stand and possibly walk in place today. this certainly is a large undertaking given how deconditioned he is, but I think the mobilization will help to continue our rehabilitation efforts. will be taxing on medical staff to physically assist him. This is likely something we can only do on a weekly basis. 07/02: took 3 steps yesterday (first time out of bed in almost 3 months). otherwise, tolerating daily t-piece with nightly CPAP. plan for OOB and steps again today. trach collar as tolerated. diamox x 3 doses for worsening contraction alkalosis. net -900cc/24h. 07/03: OOB and a few steps again yesterday. trying to push him to longer t-piece intervals with fewer rests on CPAP. OOB all day again today. net euvolemic yesterday. lab holiday today. 07/04: to chair today. trach collar as tolerated. I really think he could go most of the night if not all night on trach collar, but he keeps insisting on going back on the vent to rest. brought to my attention by family practice team for ankle skin breakdown. agree with podiatry consult. 07/05: OOB to chair again today. tolerated trach collar yesterday. CPAP at night. keeps asking to go back on rate on vent overnight. I do not think medically he needs this. podiatry saw patient and recommended dressing and elevation for foot. 07/06: on trach collar all night, not on the vent. this is a huge improvement. K 6.0 on bmp this AM, but Cr at baseline. will recheck. 07/07: remains off the vent on trach collar. weaning fio2. OOB again. recheck K yesterday 6.0--> 3.7, so likely spurious lab. I think tomorrow if he remains on trach collar, he is safe to go back to his facility. 07/08: No acute issues overnight. Plans for transfer to his facility with case management assistance. 07/09: Afebrile.The patient continues on trach collar. After readjustment in the bed early this a.m., the patient required increased O2 requirements to FiO2 of 90% which was decreased back down to 70% within an hour. No acute respiratory distress was noted. 07/10: Afebrile.No acute issues overnight. Patient continues on trach collar without any issues,O2 at 6-8 L/m. Subjective: 07/11: Noted anterior left chest, appearance of fungal skin infection, spreading despite use of 2 antifungal creams. No acute issues overnight, awaiting peer-to -peer phone conversation with LTAC facility regarding necessity secondary to oxygen usage. 07/12: continues to make slow clinical improvements. had to go back to 100% fio2 last night, but remained off mechanical ventilatory support. [id number] convo today, I do think he would wean back to baseline fio2 within 2-3 weeks, given how much he has improved over the last few weeks. 07/13: No changes. continues to improve slowly. fio2 70% during the day, 90% at night. weaning fio2 during the day today. OOB to chair for most of the day. awaiting decision by insurance company for possible LTAC. Objective Vital Signs Date Time Temp Pulse Resp B/P Pulse Ox O2 Delivery O2 Flow Rate FiO2 07/13/16 07:38 97 T-piece 98 07/13/16 06:00 90 07/13/16 04:00 98.2 26 119/63 07/12/16 19:58 10.00 Intake and Output 07/12/16 07/12/16 07/13/16 08:00 16:00 00:00 Intake Total 200 ml 300 ml 120 ml Output Total 200 ml 800 ml 600 ml Balance 0 ml -500 ml -480 ml Result Diagram: 07/12/16 0547 07/09/16 0430 Imaging MRI 06/20/16: No official reading. Preliminary reading suggests periventricular white matter changes at basal ganglia and no evidence ischemia CXR 06/17/16: Poor penetration. Rotated image. Unable to visualize lung bases. Possible atelectasis vs infiltrate R worse than L. Objective Remarks GEN: 31yo on trach collar, awakens and follows commands. Super morbidly obese. SKIN: Warm and dry. Fungal appearance of lesions left anterior chest increasing. HEAD: Normocephalic. EYES: No scleral icterus. No injection or drainage. NECK: obese with large neck circumference, trachea midline. Shiley 6.0 Proximal XLT, (new trach placed 05/02/16) CV: normal rate, regular rhythm. RESP: On mechanical ventilation, Breath sounds equal bilaterally. Distant secondary to habitus. GI: Abdomen soft, obese, non-tender, nondistended. MSK: No cyanosis, or edema. Pedal edema. Neuro: Moves all extremities with focal deficit right upper extremity. RASS 0. A/P Assessment and Plan ASSESSMENT Acute hypercapnic and hypoxemic respiratory failure (Shiley 6.0 Proximal XLT) CO2 narcosis (resolved) Acute worsening of hypoxia due to lung de-recruitment (05/15/16, resolved) Healthcare associated pneumonia MDR Pseudomonas Enterococcal bacteremia Pseudomonas bacteremia Collection near right subscapularis muscle(On MRI 06/03) - hematoma status post I &D on 06/07 Sepsis CHF exacerbation Tracheostomy marine pilot balloon damage -status post exchange with new Shiley 6.0 Proximal XLT 05/02/16 Probable right brachial plexus injury COPD/obesity hypoventilation syndrome Morbid Obesity BMI 60-69 History of pulmonary embolism 4 years ago Chronic atrial fibrillation Anxiety CHF (Echo 2013 EF 40-45%; ECHO 08/2015 showing a grossly normal systolic function) Hypertension Hypothyroidism Depression PLAN NEURO: CO2 narcosis - resolved Critical care polyneuropathy Right upper extremity weakness 05/21-possibly secondary to nerve compression, C6 , C7 (brachial plexus) Pain Anxiety Depression -EMG/ NCV could not be completed on 05/[address] Castillo -Clinically has right brachial plexus involvement. MRI of brachial plexus on 06/03 revealed collection involving right subscapularis muscle- s/p I & D on 06/[address] Velazquez. -Neurology Dr. Cheek-MRI brain, C spine no acute findings. -Venous Doppler RUE 05/28-negative for DVT -Continued PT daily, with strengthening exercises -Continue Seroquel 100mg HS. Continue Zoloft 100mg daily -Decreased pain reg: Tylenol 625mg pain 1-6, Percocet 10/325 pain 7-10 RESP: Acute hypercapnic and hypoxemic respiratory failure Acute lung derecruitment 05/15 with hypoxia Healthcare associated pneumonia Tracheostomy marine pilot balloon damage (Shiley 6.0 Proximal XLT) s/p new trach placement 05/02 Chronic Respiratory Failure s/p Tracheostomy 4 years ago COPD/obesity hypoventilation syndrome History of pulmonary embolism 4 years ago Leukocytosis-resolved Pulmonary edema - s/p Bronchoscopy 05/11 - BAL results negative - 10 units aggressive Pulm toilet, trach care - Continue with vent support keep sat >88% on CPAP 10, 45% FIO2. Continue T- piece - Continue DuoNeb q6h REYES + q2h PRN, Pulmicort BID, Singulair 10mg daily - Continue trach collar OOB to chair, minimum 3 hours daily, should increase it to every shift CV: CHF exacerbation Pulmonary edema Paroxysmal atrial fibrillation (chronic) Hyperlipidemia -Monitor HR and BP keep MAP>65mmHg -Cardizem 90mg QID, Bumex 1mg daily PO, Lipitor 10g daily, TriCor 40mg by mouth daily -continue on home Xarelto. GI: Super morbid obesity with BMI of 64 Nausea GERD -Regular diet, thin liquids per speech recs -Liver US 06/03: Fatty liver, sludge in gallbladder, splenomegaly, no mechanical obstruction of bile duct noted. -Protonix 20mg BID. Zofran prn for nausea. -Multivitamin daily -Bringing in food, per nurses. Not adherent to hospital diet. FEN/RENAL: Hypokalemia Metabolic alkalosis - Monitor renal function , I/O, electrolytes replacement per protocol. - Bumex 1mg PO daily, KCL 40meq Q12hr - Willard was discontinued. we are using a rectal bag to collect urine and keep sacral area clean. no indication for willard catheter. ID: Healthcare associated pneumonia Sepsis New fever-resolved MDRO Cellulitis right arm-resolved Leukocytosis-resolved Enterococcal faecalis bacteremia, Pseudomonas bacteremia (06/02, 06/03) -Wound culture Pseudomonas MDR 04/27 -Sputum culture-Pseudomonas MDR- 04/27 -Urine cx: Proteus Mirabilis 05/05 -Sputum cx: Providencia 05/05 -Bronchoscopy and re-culture 05/10- NG -Wound cx: Proteus, Pseudomonas, Group D Enterococcus- 05/13 -Sputum cx- NG- 05/15 -Blood culture: aerobic and anaerobic bottles - enterococcus faecalis, pseudomonas aeruginosa 06/02, 06/03 -Urine culture: pseudomonas aeruginosa- 06/02 -Wound culture: pseudomonas aeruginosa- 06/02 -Sputum culture: Pseudomonas- 06/02 -Dr. Velazquez performed drainage of collection surgically on 06/07- likely hematoma -Stopped IV Vanc and Zerbaxa on 06/18. (MDR pseudomonas in blood cultures) - colistin nebs stopped 06/27 HEME: History of PE on chronic anticoagulation with Xarelto Iron deficiency anemia and anemia of critical illness. -Monitor CBC, transfused 1U PRBC 06/13 -Xarelto for PE 4 yrs ago. -Continue Xarelto. -Ferrous sulfate 300 mg/q day ENDO: Hypothyroidism -On SSI (Low scale) -Continue levothyroxine 50 mcg po daily -Free T4 1.52 MSK: --agree with podiatry consult. -Continue physical therapy PROPH: -Lower extremity SCDs (L leg only, R ankle cellulitis), continue home xarelto GI prophylaxis- Protonix 20mg BID LINES: - PICC line RUE- No DVT on US 05/02 - removed on 06/03. PIV 's x 2 - Willard catheter removed 07/05. we are using rectal bag to collect urine in an effort to keep sacral and groin area clean and free of skin breakdown. Out of bed with assistance. PT out of bed with vent. OT. Dispo: [facility], case management facilitation. Awaiting decision for LTAC. Until then, he remains in the ICU. q48h labs. Dispo: Level 2 Fletcher Brown MD Jul 13, 2016 09:54
[2016-07-13] MEDS: POTASSIUM CHLORIDE 20 MEQ CONTROLLED RELEASE TAB PO SCH ×2 (11:00→23:47)
[2016-07-13] MEDS: IBUPROFEN 600 MG TAB PO PRN (14:21)
[2016-07-13] MEDS: NYSTATIN 100,000 U/GM PWD 15 GM BTL TOPICAL SCH ×2 (14:21→19:51)
[2016-07-13] MEDS: COLLAGENASE OINT 30 GM TUBE TOP SCH (14:21)
[2016-07-13] MEDS: MICONAZOLE NITRATE 2% CREAM 15 GM TOP SCH ×2 (17:50→19:51)
[2016-07-13] MEDS: ZOLPIDEM TARTRATE 10 MG TAB PO PRN (19:49)
[2016-07-13] MEDS: QUEtiapine FUMARATE 100 MG TAB PO SCH (19:49)
[2016-07-14] VITALS (10 sets, daily range): BP systolic 115–118; BP diastolic 60–79; PULSE 86–96; RESP 20–26; TEMP 97.9–98.6; O2SAT 88–100
[2016-07-14] MEDS: RESP: ALBUTEROL 2.5 MG/IPRATROPIUM 0.5 MG NEB (PRN) NEB (02:00)
[2016-07-14] MEDS: LEVOTHYROXINE SODIUM 50 MCG TAB PO SCH (05:33)
[2016-07-14] MEDS: INSULIN NovoLIN REGULAR SUPPLEMENTAL SCALE SQ SCH (06:00)
[2016-07-14] MEDS: RESP: BUDESONIDE 0.5 MG/2 ML NEB NEB SCH ×2 (08:26→19:36)
[2016-07-14] MEDS: ATORVASTATIN 10 MG TAB PO SCH (10:01)
[2016-07-14] MEDS: BUMETANIDE 1 MG TAB PO SCH (10:01)
[2016-07-14] MEDS: PANTOPRAZOLE SOD 20 MG DELAYED RELEASE TAB PO SCH ×2 (10:01→20:30)
[2016-07-14] MEDS: IBUPROFEN 600 MG TAB PO PRN ×2 (10:01→20:30)
[2016-07-14] MEDS: FENOFIBRATE 48 MG TAB PO SCH (10:02)
[2016-07-14] MEDS: FERROUS SULFATE 325 MG (65 MG ELEMENTAL IRON) TAB PO SCH (10:02)
[2016-07-14] MEDS: DILTIAZEM HCL 90 MG TAB PO SCH ×4 (10:02→20:29)
[2016-07-14] MEDS: CHLORHEXIDINE 0.12% (ORAL KIT) 15 ML CUP MT SCH ×2 (10:02→20:29)
[2016-07-14] MEDS: MULTIVITAMIN TAB PO SCH (10:02)
[2016-07-14] MEDS: RIVAROXABAN 20 MG TAB PO SCH (10:02)
[2016-07-14] MEDS: FLUCONAZOLE 200 MG TAB PO SCH (10:02)
[2016-07-14] MEDS: MONTELUKAST SODIUM 10 MG TAB PO SCH (10:02)
[2016-07-14] MEDS: SERTRALINE HCL 100 MG TAB PO SCH (10:02)
[2016-07-14] MEDS: ALLOPURINOL 300 MG TAB PO SCH (10:02)
[2016-07-14] MEDS: MICONAZOLE NITRATE 2% CREAM 15 GM TOP SCH ×2 (10:03→20:31)
[2016-07-14] MEDS: COLLAGENASE OINT 30 GM TUBE TOP SCH (10:03)
[2016-07-14] MEDS: SODIUM CHLORIDE 0.9% FLUSH 5 ML FLUSH IVF SCH ×2 (10:03→20:29)
[2016-07-14] MEDS: NYSTATIN 100,000 U/GM PWD 15 GM BTL TOPICAL SCH ×2 (10:04→20:31)
--- NOTE | 2016-07-14 10:05 | HHI.CCPN ---
Subjective Remarks/Hospital Course 31 year old morbidly obese (BMI 68) male with chronic respiratory failure s/p tracheostomy 4 years ago, atrial fibrillation and pulmonary embolism on Xarelto , COPD, CHF and h/o HTN. He presented from [facility] with low oxygen saturation apparently his oxygen saturation was 82% on RA. He was placed back on 6L of oxygen via his trach mask and given a breathing treatment, initially improved however he started drifting back to low 80s again. Chest x-ray showed bibasilar infiltrates and pulmonary edema. Patient was admitted to the [facility] service and was started on IV steroids IV vancomycin and Zosyn and Levaquin for healthcare associated pneumonia. After starting ACV, patient was more awake but there was a significant amount of air leak around his tracheostomy. Patient has had a Shiley 6.0 Proximal XLT, but the corporate pilot balloon had been cut off. 05/02 the patient became acutely hypoxemic with a large cuff leak, underwent emergency trach exchange at bedside by Dr. Macias. FiO2 65% PEEP 14 05/13 Patient is on ventilator via trach, on Fentanyl infusion however he is awake and alert. On PRVC with FIO2 40%. Afebrile. 05/14 No acute events overnight. Tmax 99.8. Patient is awake, alert on ventilator via trach still requiring increase O2. On PRVC with PEEP: 10 and FIO2 70%. 05/15 Pt acutely desaturated after he was found. Saturation down to 70% on 100 % oxygen. Bag and mask ventilation carried out, with eventual improvement on oxygen saturation to 85%. Patient was placed on PC/AC mode of ventilation, with PEEP of 15 and instructed to pressure of 30. Eventually oxygen saturation improved to 95%. Lasix him today as the chest x-ray from today shows increasing bilateral infiltrate and pulmonary edema. Sputum culture will be sent 05/16 Patient is on Fentanyl and Diprivan infusion but awake and alert. Afebrile. On PC/AC with PEEP:15, IP: 22, IT:1.3 and FIO2 50% 05/17 Patient is off Diprivan and remains on Fentanyl infusion for sedation. On PC/AC with PEEP: down 10 and FIO2 40%. Afebrile. 05/18 Patient remains on ventilator via trach on PC/AC with PEEP:12, FIO2 40%, IP:22, IT:1.0. On Fentanyl infusion 05/19 No acute events overnight. On Fentanyl infusion but awake and alert. Afebrile. 05/20 Tolerating C Pap 17/12 FIO2 40, sats 98%. RSBI in 20s, appears can be weaned further. Afebrile. Speech therapy evaluated and ok for regular diet. Starting with full liquid. 05/21 Will wean PSV to 15/10. Tolerated full liquids, will advance to regular diet per speech recs. 05/22 On PSV 15/10 FIO2 40 with sats 92%. Smiling today. Glad to be eating regular food again. 05/23 No acute events overnight. Remains on CPAP with PS 15, PEEP:10 and FIO2 40 %. Afebrile. Off Fentanyl drip. Afebrile. Awake and alert. 05/24 Patient is on CPAP 06/06 with 40% FIO2. Afebrile. Awake and alert, on no sedation. 05/25 No acute events overnight. Patient was placed back on PC/AC overnight. Tolerated CPAP trials during day yesterday. Awake and alert. On no drips. Afebrile. 05/26 Afebrile. Tmax 98.6. Today the patient complained of nausea requiring Zofran. The patient has a lack of an appetite, with noted hypoglycemia early this a.m. blood glucose level 69. Patient tolerating CPAP well greater than 12 hours in the last 24 hours. 05/27 The patient tolerated CPAP for over 36 hours, O2 sat a knee 94% on FIO2 40 %. The patient had an increase in appetite. The patient continues on full liquid diet. 05/28 The patient declined physical therapy treatment, yesterday and also overnight declined to be moved by nursing staff. The patient refused dinner last evening, of note patient was reevaluated by speech therapy and can consume a heart healthy diet with thin liquids. The patient continues on physical therapy for strengthening exercises of all extremities specifically noted right upper extremity continues to be weak with gross fibrillations noted in hand and forearm. 05/29 Afebrile. No change in right upper extremity weakness. The patient was seen by neurology yesterday plan for MRI today if possible in hospital MRI, and EMG studies. No complaints overnight. Patient continues to refuse to have activities performed, movement in bed. The patient appears to be depressed, psychiatry consulted. 05/30: Patient alert awake on CPAP. Following commands. Psych agrees the patient is depressed. MRI brain no acute findings 05/31: Awake alert. on PS 15/8. EMG could not be completed due to patient becoming anxious. Otherwise no acute events reported overnight 06/01: Remains PS from 11/02. Right upper extremity weakness persists. EMG to be repeated on Friday. Will need MRI of the brachial plexus. Chest x-ray is unchanged 06/02: States that "not feeling well". Febrile to 101.5. White count increasing but still within the normal range. Pancultured. We'll request ID reevaluation. 06/03: Resting in bed on C Pap/pressure support via tracheostomy. One out of 2 sets of blood cultures sent on 06/02 positive for gram-positive cocci. 06/04: Resting in bed on mechanical ventilation via tracheostomy. Afebrile overnight. MRI brachial plexus (06/03) revealed a collection near the right subscapularis muscle, possibly an abscess. Discussed with ID, orthopedics Dr. Velazquez consulted. I discussed the case with Dr. Velazquez this morning who feels this is probably an abscess however would be difficult to access surgically and he plans to set up percutaneous drainage by interventional radiology. 06/05: Resting in bed on mechanical ventilation via tracheostomy. Remains afebrile. Reportedly IR cannot do percutaneous drainage of collection involving right subscapularis muscle. 06/06: Resting in bed on mechanical ventilation via tracheostomy. Can actually speak around the trach. Remains afebrile. Dr. Velazquez evaluated patient and is scheduling surgery for drainage of fluid collection involving the right subscapularis muscle. 06/07: Resting in bed on mechanical ventilation via tracheostomy. Awaiting surgery today. 06/08: Status post I&D of collection near right shoulder/subscapularis on 06/[address] Velazquez. This morning patient is awake and alert complained of some pain at the surgical site. Remains on mechanical ventilation on C Pap/pressure support. 06/09: Sleeping, arousable. On mechanical ventilation with C Pap/pressure support overnight. Labs pending 06/10 No acute events overnight. On CPAP with PS 12, PEEP: 8, FIO2 40%. Afebrile. 06/11 Patient remains on CPAP with PS 10, PEEP: 8 and FIO2 40%. Afebrile. 06/12: No acute events overnight. Remains on CPAP 10/5. No specific complaints 06/13: Tolerating C Pap 10 over 5. Awake and alert following commands. Hemoglobin dropped from 8.6-7.1, no obvious bleeding. Sodium 140-149. Will give 1 unit of PRBC with 1 mg IV Bumex 06/14 No acute events overnight. On CPAP with PS 10, PEEP:5 and FIO2 50%. Afebrile. 06/15 No acute events overnight. Remains on CPAP 10/5 with 40% FIO2. Afebrile. 06/16 Patient remains on ventilator via trach on CPAP with PS 10, PEEP:5 and FIO2 40%. 06/17: Resting in bed on mechanical ventilation via tracheostomy. Feeling nauseous. 06/18: OOB in reclining chair. Reporting low back and leg pain that is positional. Continued nausea, denies emesis. CPAP w PS 5 FIO2 40%. Will attempt Tpiece trial today. Discontinue Vanc + Zerbaxa today per ID 06/19: No acute events overnight. Afebrile. HTN to 160/80. CPAP with PS 10. PEEP 10 FIO2 45. Failed Tpiece trial yesterday- desaturated to mid 70s. Denies SOB/CP. Nausea is less than before. Bed is broken and patient would like the mattress to "rotate". Per nursing, they are working to fix it. 06/20: No acute events overnight. Afebrile. HTN to 145/70. CPAP with PEEP 10 FIO2 45, with saturation 93=94%. Pt has no acute complaints. Denies SOB/CP/ Nausea. Didn't know why he threw up during PT yesterday. Denies pain. Still having diarrhea (chronic years in duration issue). Was eating Pringles in bed. Per nursing, does not eat hospital food- waits for mother to bring him food. He was counseled to eat the hospital food which is healthier for him and that he needs to stop eating food brought in by his mother. 06/21: Remains on mechanical ventilation, CPAP with pressure support. 06/22: On mechanical ventilation on C Pap with pressure support. Denies any nausea or abdominal pain. Appears comfortable. 06/23: Resting in bed on mechanical ventilation with C Pap/pressure support +10/ +5. Denies any shortness of breath denies any abdominal pain or nausea currently. 06/24: Refusing to get OOB with physical therapy today. I had a long discussion with the patient about the fact that he has been inpatient for months now and he is severely deconditioned. He must get out of bed with PT to clinically improve, and deconditioning is a major factor in his chronic respiratory failure. He denies chest pain or SOB. does endorse some nausea today. 06/25: tolerated 4 hours OOB yesterday with 4 hours of trach collar. plan to go 6 hours today. 06/26: tolerated OOB to chair 5 hours yesterday but only 1.5hr of trach collar due to hypoxia. 06/27: tolerated OOB to chair for 6 hours yesterday and almost 5 hours of trach collar. daily, he continues to be very resistant to participating in PT and getting OOB. He again asks if he can lay in bed today. 06/28: tolerated 6 hours of trach collar yesterday. OOB for almost 8 hours. 06/29: continues to tolerate daily trach collar trials. OOB for 8 hours again yesterday. 06/30: tolerated 8 hours of trach collar yesterday. OOB for 7 hours. can do trach collar as tolerated. he continues to make attempts to refuse physical therapy and does not wish to participate in his care. 07/01: no changes. did well with 8 hours of trach collar and 8-9 hours of OOB. will attempt to stand and possibly walk in place today. this certainly is a large undertaking given how deconditioned he is, but I think the mobilization will help to continue our rehabilitation efforts. will be taxing on medical staff to physically assist him. This is likely something we can only do on a weekly basis. 07/02: took 3 steps yesterday (first time out of bed in almost 3 months). otherwise, tolerating daily t-piece with nightly CPAP. plan for OOB and steps again today. trach collar as tolerated. diamox x 3 doses for worsening contraction alkalosis. net -900cc/24h. 07/03: OOB and a few steps again yesterday. trying to push him to longer t-piece intervals with fewer rests on CPAP. OOB all day again today. net euvolemic yesterday. lab holiday today. 07/04: to chair today. trach collar as tolerated. I really think he could go most of the night if not all night on trach collar, but he keeps insisting on going back on the vent to rest. brought to my attention by family practice team for ankle skin breakdown. agree with podiatry consult. 07/05: OOB to chair again today. tolerated trach collar yesterday. CPAP at night. keeps asking to go back on rate on vent overnight. I do not think medically he needs this. podiatry saw patient and recommended dressing and elevation for foot. 07/06: on trach collar all night, not on the vent. this is a huge improvement. K 6.0 on bmp this AM, but Cr at baseline. will recheck. 07/07: remains off the vent on trach collar. weaning fio2. OOB again. recheck K yesterday 6.0--> 3.7, so likely spurious lab. I think tomorrow if he remains on trach collar, he is safe to go back to his facility. 07/08: No acute issues overnight. Plans for transfer to his facility with case management assistance. 07/09: Afebrile.The patient continues on trach collar. After readjustment in the bed early this a.m., the patient required increased O2 requirements to FiO2 of 90% which was decreased back down to 70% within an hour. No acute respiratory distress was noted. 07/10: Afebrile.No acute issues overnight. Patient continues on trach collar without any issues,O2 at 6-8 L/m. Subjective: 07/11: Noted anterior left chest, appearance of fungal skin infection, spreading despite use of 2 antifungal creams. No acute issues overnight, awaiting peer-to -peer phone conversation with LTAC facility regarding necessity secondary to oxygen usage. 07/12: continues to make slow clinical improvements. had to go back to 100% fio2 last night, but remained off mechanical ventilatory support. [id number] convo today, I do think he would wean back to baseline fio2 within 2-3 weeks, given how much he has improved over the last few weeks. 07/13: No changes. continues to improve slowly. fio2 70% during the day, 90% at night. weaning fio2 during the day today. OOB to chair for most of the day. awaiting decision by insurance company for possible LTAC. 07/14: Remains on TP, now on 98% oxygen. Chest x-ray pending. No report of increased secretions, no fever Objective Vital Signs Date Time Temp Pulse Resp B/P Pulse Ox O2 Delivery O2 Flow Rate FiO2 07/14/16 08:27 88 T-piece 98 07/14/16 04:00 98.3 90 24 117/68 07/12/16 19:58 10.00 Intake and Output 07/13/16 07/13/16 07/14/16 08:00 16:00 00:00 Intake Total 120 ml 480 ml 240 ml Output Total 700 ml 1600 ml 450 ml Balance -580 ml -1120 ml -210 ml Result Diagram: 07/12/16 0547 Imaging MRI 06/20/16: No official reading. Preliminary reading suggests periventricular white matter changes at basal ganglia and no evidence ischemia CXR 06/17/16: Poor penetration. Rotated image. Unable to visualize lung bases. Possible atelectasis vs infiltrate R worse than L. Objective Remarks GEN: 31yo on trach collar, awakens and follows commands. Super morbidly obese. SKIN: Warm and dry. Fungal lesions left anterior chest. HEAD: Normocephalic. EYES: No scleral icterus. No injection or drainage. NECK: obese with large neck circumference, trachea midline. Shiley 6.0 Proximal XLT, (new trach placed 05/02/16) CV: normal rate, regular rhythm. RESP: On mechanical ventilation, Breath sounds equal bilaterally. Distant secondary to habitus. GI: Abdomen soft, obese, non-tender, nondistended. MSK: No cyanosis, or edema. Pedal edema. Neuro: Moves all extremities with focal weakness right upper extremity. A/P Assessment and Plan ASSESSMENT Acute hypercapnic and hypoxemic respiratory failure (Shiley 6.0 Proximal XLT) CO2 narcosis (resolved) Acute worsening of hypoxia due to lung de-recruitment (05/15/16, resolved) Worsening hypoxia 07/14/16 now on 98% oxygen Healthcare associated pneumonia MDR Pseudomonas Enterococcal bacteremia Pseudomonas bacteremia Collection near right subscapularis muscle(On MRI 06/03) - hematoma status post I &D on 06/07 Sepsis CHF exacerbation Tracheostomy corporate pilot balloon damage -status post exchange with new Shiley 6.0 Proximal XLT 05/02/16 Probable right brachial plexus injury COPD/obesity hypoventilation syndrome Morbid Obesity BMI 60-69 History of pulmonary embolism 4 years ago Chronic atrial fibrillation Anxiety CHF (Echo 2013 EF 40-45%; ECHO 08/2015 showing a grossly normal systolic function) Hypertension Hypothyroidism Depression PLAN NEURO: CO2 narcosis - resolved Critical care polyneuropathy Right upper extremity weakness 05/21-possibly secondary to nerve compression, C6 , C7 (brachial plexus) Pain Anxiety Depression -Clinically had right brachial plexus involvement. MRI of brachial plexus on 06/03 revealed collection involving right subscapularis muscle- s/p I & D on 06/[address] Velazquez. -Neurology Dr. Cheek-MRI brain, C spine no acute findings. -Venous Doppler RUE 05/28-negative for DVT -Continued PT daily, with strengthening exercises -Continue Seroquel 100mg HS. Continue Zoloft 100mg daily -Decreased pain reg: Tylenol 625mg pain 1-6, Percocet 10/325 pain 7-10 RESP: Acute hypercapnic and hypoxemic respiratory failure Acute lung derecruitment 05/15 with hypoxia Worsening hypoxia 07/14/16 probable lung de-recruitment Healthcare associated pneumonia Tracheostomy corporate pilot balloon damage (Shiley 6.0 Proximal XLT) s/p new trach placement 05/02 Chronic Respiratory Failure s/p Tracheostomy 4 years ago COPD/obesity hypoventilation syndrome History of pulmonary embolism 4 years ago Leukocytosis-resolved Pulmonary edema - s/p Bronchoscopy 05/11 - BAL results negative - Aggressive Pulm toilet, trach care - Keep sat >88% on T-piece, but on 98% O2. CXR pending - Continue DuoNeb q6h REYES + q2h PRN, Pulmicort BID, Singulair 10mg daily - Continue trach collar OOB to chair, minimum 3 hours daily, should increase it to every shift eventually CV: CHF exacerbation Pulmonary edema Paroxysmal atrial fibrillation (chronic) Hyperlipidemia -Monitor HR and BP keep MAP>65mmHg -Cardizem 90mg QID, Bumex 1mg daily PO, Lipitor 10g daily, TriCor 40mg by mouth daily -continue on home Xarelto. GI: Super morbid obesity with BMI of 64 Nausea GERD -Regular diet, thin liquids per speech recs -Liver US 06/03: Fatty liver, sludge in gallbladder, splenomegaly, no mechanical obstruction of bile duct noted. -Protonix 20mg BID. Zofran prn for nausea. -Multivitamin daily -Bringing in food, per nurses. Not adherent to hospital diet. FEN/RENAL: Hypokalemia Metabolic alkalosis - Monitor renal function , I/O, electrolytes replacement per protocol. - Bumex 1mg PO daily, KCL 40meq Q12hr - Willard was discontinued. we are using a rectal bag to collect urine and keep sacral area clean. no indication for willard catheter. ID: Healthcare associated pneumonia Sepsis New fever-resolved MDRO Cellulitis right arm-resolved Leukocytosis-resolved Enterococcal faecalis bacteremia, Pseudomonas bacteremia (06/02, 06/03) -Wound culture Pseudomonas MDR 04/27 -Sputum culture-Pseudomonas MDR- 04/27 -Urine cx: Proteus Mirabilis 05/05 -Sputum cx: Providencia 05/05 -Bronchoscopy and re-culture 05/10- NG -Wound cx: Proteus, Pseudomonas, Group D Enterococcus- 05/13 -Sputum cx- NG- 05/15 -Blood culture: aerobic and anaerobic bottles - enterococcus faecalis, pseudomonas aeruginosa 06/02, 06/03 -Urine culture: pseudomonas aeruginosa- 06/02 -Wound culture: pseudomonas aeruginosa- 06/02 -Sputum culture: Pseudomonas- 06/02 -Dr. Velazquez performed drainage of collection surgically on 06/07- likely hematoma -Stopped IV Vanc and Zerbaxa on 06/18. (MDR pseudomonas in blood cultures) -Colistin nebs stopped 06/27 HEME: History of PE on chronic anticoagulation with Xarelto Iron deficiency anemia and anemia of critical illness. -Monitor CBC, transfused 1U PRBC 06/13 -Xarelto for PE 4 yrs ago. Continue Xarelto. -Ferrous sulfate 300 mg/q day ENDO: Hypothyroidism -On SSI (Low scale) -Continue levothyroxine 50 mcg po daily -Free T4 1.52 MSK: --agree with podiatry consult. -Continue physical therapy PROPH: -Lower extremity SCDs (L leg only, R ankle cellulitis), continue home xarelto GI prophylaxis- Protonix 20mg BID LINES: - PICC line RUE- No DVT on US 05/02 - removed on 06/03. PIV 's x 2 - Willard catheter removed 07/05. we are using rectal bag to collect urine in an effort to keep sacral and groin area clean and free of skin breakdown. Out of bed with assistance. PT out of bed with vent. OT. Dispo: Scheduled to transfer [facility] facility, case management facilitation. Awaiting decision for LTAC. Until then, he remains in the ICU. Dispo: Level 3 Jaquan Zelaya MD Jul 14, 2016 10:04
[2016-07-14] MEDS: POTASSIUM CHLORIDE 20 MEQ CONTROLLED RELEASE TAB PO SCH ×2 (11:00→23:35)
--- NOTE | 2016-07-14 11:21 | RADRPT ---
EXAM DATE/TIME: 07/14/2016 10:15 [facility] COMPARISON: CHEST SINGLE AP, June 17, 2016, 4:38. INDICATIONS : Short of Breath. MEDICAL HISTORY : Hypertension. Congestive heart failure. SURGICAL HISTORY : None. ENCOUNTER: Subsequent ACUITY: 3 months PAIN SCORE: 0/10 LOCATION: Bilateral chest FINDINGS: A single view of the chest demonstrates the lungs to be poorly aerated without evidence of mass, or e ffusion. Again increased density right lung base could be a prominent infiltrate similar to May Tracheostomy tube is in good position The cardiomediastinal contours are unremarkable. Osseous stru ctures are intact. CONCLUSION: Questionable infiltrate in the right lower lobe. Tracheostomy tube in position Amador Brock MD on July 14, 2016 at 11:19 Board Certified Radiologist. This report was verified electronically.
[2016-07-14 11:45] LABS: HEMATOCRIT 34.3 % (39.0-51.0); MEAN CELL VOLUME 86.4 FL (80.0-100.0); MEAN CORPUSCULAR HEMOGLOBIN 26.4 PG (27.0-34.0); MEAN CORPUSCULAR HGB CONC 30.6 % (32.0-36.0); PLATELET COUNT 265 TH/MM3 (150-450); RED BLOOD COUNT 3.97 MIL/MM3 (4.50-5.90); REVIEW FLAG FINAL; WHITE BLOOD COUNT 11.9 TH/MM3 (4.0-11.0)
[2016-07-14] MEDS: ONDANSETRON ODT 4 MG TAB PO PRN (14:06)
[2016-07-14] MEDS: QUEtiapine FUMARATE 100 MG TAB PO SCH (20:30)
[2016-07-14] MEDS: ZOLPIDEM TARTRATE 10 MG TAB PO PRN (20:30)
[2016-07-15] VITALS (11 sets, daily range): BP systolic 102–122; BP diastolic 50–66; PULSE 72–101; RESP 20–35; TEMP 98–98.7; O2SAT 90–98
[2016-07-15] MEDS: LEVOTHYROXINE SODIUM 50 MCG TAB PO SCH (05:49)
[2016-07-15] MEDS: INSULIN NovoLIN REGULAR SUPPLEMENTAL SCALE SQ SCH (05:52)
[2016-07-15] MEDS: RESP: BUDESONIDE 0.5 MG/2 ML NEB NEB SCH ×2 (07:25→20:51)
[2016-07-15 07:42] LABS: AUTOMATED NEUTROPHIL # 6.3 TH/MM3 (1.8-7.7); BASOPHIL # 0.1 TH/MM3 (0-0.2); BASOPHIL % 0.6 % (0.0-2.0); EOSINOPHIL # 0.4 TH/MM3 (0-0.4); EOSINOPHIL % 4.4 % (0.0-4.0); HEMATOCRIT 32.9 % (39.0-51.0); LYMPH % 19.9 % (9.0-44.0); LYMPHOCYTE # 1.9 TH/MM3 (1.0-4.8); MEAN CELL VOLUME 85.6 FL (80.0-100.0); MEAN CORPUSCULAR HEMOGLOBIN 26.4 PG (27.0-34.0); MEAN CORPUSCULAR HGB CONC 30.9 % (32.0-36.0); MONO % 7.8 % (0.0-8.0); NEUT % 67.3 % (16.0-70.0); PLATELET COUNT 243 TH/MM3 (150-450); RED BLOOD COUNT 3.84 MIL/MM3 (4.50-5.90); WHITE BLOOD COUNT 9.4 TH/MM3 (4.0-11.0)
--- NOTE | 2016-07-15 07:43 | HHI.FPPN ---
Subjective Remarks No acute issues overnight. Vitals are stable, patient remained afebrile. He is tolerating 50% FiO2. Intake 1020 mL, output 1350 mL, balance negative 330 mL in the past 24 hours. Objective Vitals Vital Signs Date Time Temp Pulse Resp B/P Pulse Ox O2 Delivery O2 Flow Rate FiO2 07/15/16 07:28 90 50 07/15/16 04:00 98.0 77 20 110/57 98 07/15/16 03:51 93 50 07/15/16 00:48 94 50 07/15/16 00:00 98.3 90 22 115/59 96 07/14/16 21:42 91 50 07/14/16 21:33 20 07/14/16 20:10 98 40 07/14/16 20:00 87 07/14/16 20:00 98.1 87 20 118/67 93 07/14/16 20:00 93 T-Piece 50 07/14/16 16:40 95 50 07/14/16 16:00 89 116/79 100 07/14/16 12:17 92 90 07/14/16 12:00 98.6 96 26 118/60 100 07/14/16 08:27 88 T-piece 98 07/14/16 08:00 90 T-Piece 98 I/O 07/14/16 07/14/16 07/14/16 07/15/16 07/15/16 07/15/16 07:00 15:00 23:00 07:00 15:00 23:00 Intake Total 300 ml 360 ml 420 ml 240 ml Output Total 350 ml 600 ml 350 ml 400 ml Balance -50 ml -240 ml 70 ml -160 ml Intake Oral 300 ml 360 ml 420 ml 240 ml IV Total 0 ml 0 ml 0 ml 0 ml Output Urine Total 350 ml 600 ml 350 ml 400 ml # Bowel Movements 0 2 1 0 Result Diagram: 07/14/16 1102 Imaging Last Impressions Chest X-Ray 07/14/16 0000 Signed Impressions: Service Date/Time: Thursday, July 14, 2016 10:15 - CONCLUSION: Questionable infiltrate in the right lower lobe. Tracheostomy tube in position Amador Brock MD Liver Ultrasound 06/03/16 0000 Signed Impressions: Service Date/Time: Friday, June 03, 2016 08:10 - CONCLUSION: 1. There is some sludge in the gallbladder. This can be seen with chronic gallbladder disease. 2. Fatty infiltration of the liver which appears to be enlarged. 3. No mechanical biliary tract obstruction. 4. Splenomegaly. Lázaro Frankel MD Brachial Plexus MRI 06/03/16 0000 Signed Impressions: Service Date/Time: Friday, June 03, 2016 12:42 - CONCLUSION: There is a complex multiloculated soft tissue and cystic mass measuring approximately 5.5 x 6.0 x 7.8 cm involving the subscapularis muscle along the anterior right scapula. The differential considerations include neoplastic disease, infection and hematoma. Recommend a CT scan of the right shoulder to pre-plan for CT-guided aspiration/biopsy of this abnormality. Lázaro Frankel MD Cervical Spine MRI 05/29/16 0000 Signed Impressions: Service Date/Time: Sunday, May 29, 2016 13:51 - CONCLUSION: Limited study but appears normal. Vishnu Woodward MD Brain MRI 05/29/16 0000 Signed Impressions: Service Date/Time: Sunday, May 29, 2016 13:51 - CONCLUSION: 1. Focal chronic ischemic change in the high right frontal parietal convexity stable from previous CT scan. 2. No acute intracranial abnormality. 3. Minimal nonspecific white matter changes. Vishnu Woodward MD Upper Extremity Ultrasound 05/28/16 0000 Signed Impressions: Service Date/Time: Saturday, May 28, 2016 10:16 - CONCLUSION: 1. Negative for deep venous thrombosis. Venous line noted in cephalic, subclavian and internal jugular vein. Horacio Gupta MD Abdomen X-Ray 04/29/16 0000 Signed Impressions: Service Date/Time: Friday, April 29, 2016 07:12 - CONCLUSION: Suspect Dobbhoff tube in the distal stomach. Garcia Lujan MD Objective Remarks CONST: Morbidly obese male laying supine in NAD. DERM: Flat, erythematous, blanching rash with central clearing on bilateral arms , forearms, deltoids, upper torso, continues to improve. Well-healing scar R shoulder. White flaky patch of skin on R arm ~2inches diameter. R lat malleolus with 1.5 x 1.5 cm skin break down. Area in bandage- c/d/i. Numerous skin folds 2/2 habitus. Dry, flaking skin on feet. HEENT: Tracheotomy site c/d/i. Poor dentition. Moist mucous membranes. CV: Distant heart sounds. RRR. RESP: Anterior exam with end expiratory wheezing. Breathing comfortably on T piece GI: Abdomen soft, obese,NT. +BS. MSK: External rotation of RLE and LLE NEURO: CN grossly normal. PSYCH: Appears resigned/moderately apathetic. Begrudgingly complies with care requests. Poor insight. . Procedures 04/24- Started ventilation 05/02- Emergency Trach Exchange 06/03- PICC line removed 06/07- Debridement of RUE abscess (Dr. Velazquez), RUE drain placed. 06/10- RUE drain removal 07/05- Removed from ventilation, continuous T-piece, remained off ventilation since A/P Assessment and Plan 31yo male with super morbid obesity with chronic respiratory failure s/p tracheostomy 4 years ago. Admitted 05/13/16 with respiratory failure. Currently awaiting placement for discharge. Discharge Planning Pending placement. Have been attempting to place since 07/08/15. Off mechanical ventilation since 07/05/15. On T-piece using 8-10L. Case management working on placement. Dr. Brown did peer to peer with [place] [employer] for placement at [facility] (refused to cover cost of admission, SNF not in their approved list) Dr. Morgan, , called insurance 07/10/12- did not get a response. Denied placement to [facility]. Denied placement [facility] (can accommodate up to 6L oxygen, pt using 8L) dw Dr. Watts Problem List: (1) PLAN Status: Chronic Plan: NEURO/PSYCH CO2 narcosis -Resolved with oxygen supplementation Polyneuropathy of Critical illness -Continue PT, discharge to SNF RUE weakness/pain & Cervical neuropathy. Did not tolerate EMG of RUE. MRI of RUE and C-spine WNL. -Continue PT/OT, Frequent rotations, OOB to chair -Ibuprofen 600mg q6h pain Anxiety/MDD- -Initially refusing meals, bathing. Improved. However, continued reluctance to participate in PT/OT. Many somatic complaints (RUBY, nausea, nonspecific pain, etc) -Seroquel 100mg HS -Zoloft 200mg daily Insomnia- -Zolpidem 5mg HS Disordered eating- At SNF, hx of hiding food in body folds. Did not adhere to dietary restraint while in hospital- family repeatedly brought in food: pizza, pringles, etc. Poor insight. 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 s/p new trach placement 05/02. Clinical course complicated by HCAP and bacteremia. s/p Bronchoscopy 05/11 - BAL results negative . Resolved, weaned from ventilator and CPAP, off ventilator since 07/05/15. Treated with bronchodilators and weaning from vent. -Resolved Chronic Respiratory Failure s/p Tracheostomy (2011) -Aggressive pulmonary toliet, trach care, oxygen supplementation, as needed for O2 saturation 92%+ Healthcare associated pneumonia -Resolved, see ID Pickwickian Syndrome -Oxygen support PRN for saturation 92%+, wean as tolerated History of pulmonary embolism 2011 -Continue home Xarelto Pulmonary edema -diuresis PRN (see CHF) CV: CHF: suspected HF with poor EF, though unable to confirm via ECHO (04/25) due to poor imaging. BNP elevated on admission, downtrended. -Monitor HR and BP keep MAP>65mmHg -Bumex 1mg daily PO Paroxysmal atrial fibrillation (history of, currently SNR) -Cardiazem 90mg QID -Xarelto GI/LIVER Wt 480 lbs on admission (04/25/16). Wt 414 lbs on discharge (07/12/15) Super morbid obesity with BMI 60-69 (on admission), 50-59 (current) -Diet per nutrition recommendations- regular, thin liquids, 2000 calorie heart healthy diet (1.5L fluids, 2g sodium, no caffeine), no outside food Nausea- GERD vs gastroparesis vs psychosomatic. Chronic- waxing and waning. -Zofran ODT q4h PRN -Protonix 20mg BID Hyperlipidemia -Lipitor 10g daily -TriCor 40mg by mouth daily Episodes of food refusal -Adhere to hospital diet Splenomegaly -Incidental finding. Continue to monitor Fatty Liver Disease: per Liver US 06/03/16 -Lose weight to healthy weight BMI <25 Diarrhea- Chronic. Present prior to admission. C. difficile testing negative. Ddx: poor diet vs medication side effect. -Adhere to hospital diet, no outside food, continue to monitor FEN/RENAL: Chronic Hypokalemia: KCL 40 meq BID replacement REYES +ICU electrolyte replacement protocol PRN Metabolic alkalosis - Monitor renal function, I/O, electrolytes replacement per protocol. Urinary incontinence: Unable to use bedside commode secondary to body habitus. -Rectal bag to collect urine and keep sacral area clean. No indication for willard catheter. Hypomagnesemia -Replete per ICU protocol ID/DERM Infectious disease consulted Fungal dermatitis: Approx two weeks old. Initially under where trach tube ran/ area of increased moisture then spread from L shoulder to L shoulder/bilateral arms/upper torso. Improving with: -Diflucan 200mg daily (07/11- 07/16)- six days total -Wound culture ordered, follow culture -Continue nystatin powder -Continue myconizole creme Resolved (see below) Bacteremia- Enterococcal faecalis bacteremia, Pseudomonas bacteremia (06/02, 06/03) HCAP, Sepsis, Fever, Yeast UTI, Hx MDRO, Cellulitis R arm, Leukocytosis Cultures -Blood culture: aerobic and anaerobic bottles - enterococcus faecalis, pseudomonas aeruginosa 06/02, 06/03 -Urine culture: pseudomonas aeruginosa- 06/02 -Wound culture: pseudomonas aeruginosa- 06/02 -Sputum culture: Pseudomonas- 06/02 -Sputum cx- NG- 05/15 -Wound cx: Proteus, Pseudomonas, Group D Enterococcus- 05/13 -Bronchoscopy and re-culture 05/10- NG -Wound culture Pseudomonas MDR 04/27 -Sputum culture-Pseudomonas MDR- 04/27 -Urine cx: Proteus Mirabilis 05/05 -Sputum cx: Providencia 05/05 Abx History Zosyn 4.5gm IV q6h (04/24 - 04/29) Levaquin 750mg IV q24h (04/24-04/30) Zerbaxa 1.5 g IV q8h (04/29 - 05/07) Vancomycin IV (04/24 - 05/06) Ceftriaxone IV (05/07 - 05/25) Linezolid 600 mg PO BID (05/06 - 05/13) Zosyn 3.375 q6h (06/04- 06/05) Vancomycin IV daily goal trough 15-20, (06/03 -06/18) Zerbaxa IV q8h (06/05-06/18) HEME: History of PE (2011)- chronic anticoagulation with Xarelto -Xarelto Normocytic Anemia- iron deficiency vs anemia of critical illness -Ferrous sulfate 325mg PO daily ENDO: Hypothyroidism- 05/27/16- TSH low, free T4 grossly wnl - Synthroid 50 mcg PO daily Hyperglycemia of Critical care -On SSI (Low scale) MSK General surgery, podiatry, orthopedics, neurologic, rehab medicine consulted RUE Weakness: secondary to hematoma vs C6/C7 neuropathy. L hemispheric pathology and seizure r/o via imaging. Unable to tolerate EMG. Venous Doppler RUE 05/28 negative for DVT. Improving -Aggressive PT: RUE strength training -Ibuprofen 600mg q6h PRN pain control Deconditioned -RLE strengthening internal rotation -OOB to chair -Aggressive OT: feed self Hematoma: S/p I&D by Dr. Velazquez (06/07/16). Small hematoma found during procedure inconsistent with 6cm x 6cm x 8cm abscess per MRI brachial plexus. -Resolved. Consider re-imaging in future if pain or RUE weakness worsens R ankle decubitus ulcer: present on admission, worsened during hospital stay from prolonged immobilization. Wound Cx (07/05): Providencia stuartii. Podiatry, Wound Care consulted. -Daily dressing changes with xeroform, primapore, optifoam dressings Decubitus ulcer -Offload pressure Gout -Allopurinol 300mg daily Hematoma -Resolved s/p I&D, re-image if RUE weakness/pain worsens Imaging: - US negative for DVT (05/28) - MRI brain (04/28) no acute intracranial process - MRI C-spine (05/29): grossly wnl - EEG (05/29): diffuse mild encephalopathy vs normal Stage 2 sleep - MRI brachial plexus (06/03): "Complex multiloculated soft tissue and cystic mass 5.5 x 6 x 7.8 cm involving subscapularis muscle along anterior R scapula - Pathology report (06/07): fragments of blood clot admixed with few minute fragments of adipose and skeletal muscle tissue (2) Acute on chronic respiratory failure with hypoxia and hypercapnia Status: Resolved (3) Fungal infection Status: Acute (4) Nausea Status: Chronic (5) Hematoma Status: Acute (6) CHF (congestive heart failure) Status: Chronic (7) Yeast UTI Status: Resolved (8) Moderate protein malnutrition Status: Chronic (9) Pressure ulcer of right leg, stage 2 Status: Chronic (10) Paroxysmal a-fib Status: Chronic (11) MDD (major depressive disorder) Status: Chronic (12) History of DVT (deep vein thrombosis) Status: Chronic (13) Hypothyroidism Status: Chronic (14) On mechanically assisted ventilation Status: Chronic (15) Normocytic anemia Status: Chronic (16) Gout Status: Chronic Plan: see plan above (17) Hyperlipidemia Status: Chronic Plan: see plan above (18) Pneumonia Status: Resolved (19) Hypomagnesemia Status: Resolved (20) Chronic respiratory failure Status: Chronic (21) Hypokalemia Status: Chronic (22) Diarrhea Status: Chronic (23) Morbid obesity with BMI of 50.0-59.9, adult Status: Chronic (24) Pickwickian syndrome Status: Chronic (25) Sacral decubitus ulcer Status: Chronic (26) Urinary incontinence due to immobility Status: Chronic (27) NAFLD (nonalcoholic fatty liver disease) Status: Chronic (28) Splenomegaly Status: Chronic (29) Somatic complaints, multiple Status: Chronic (30) Pulmonary edema Status: Chronic (31) History of pulmonary embolus (PE) Status: Chronic (32) CO2 narcosis Status: Resolved (33) Polyneuropathy associated with critical illness Status: Chronic (34) Weakness of right upper extremity Status: Chronic (35) Cervical plexus neuropathy Status: Chronic (36) Anxiety Status: Chronic (37) Insomnia Status: Chronic (38) Disordered eating Status: Chronic (39) Tracheostomy present Status: Chronic (40) HTN (hypertension) Status: Chronic (41) HCAP (healthcare-associated pneumonia) Status: Resolved (42) Cellulitis of chest wall Status: Resolved (43) Stress hyperglycemia Status: Resolved (44) Bacteremia Status: Resolved Problem Qualifiers (1) CHF (congestive heart failure): Qualified Code: I50.9 - Acute on chronic congestive heart failure, unspecified congestive heart failure type (2) MDD (major depressive disorder): Qualified Code: F33.2 - Severe episode of recurrent major depressive disorder, without psychotic features (3) Hypothyroidism: Qualified Code: E03.9 - Hypothyroidism, unspecified type (4) Chronic respiratory failure: Qualified Code: J96.10 - Chronic respiratory failure, unspecified whether with hypoxia or hypercapnia (5) Insomnia: Qualified Code: F51.04 - Psychophysiological insomnia (6) HTN (hypertension): Qualified Code: I10 - Essential hypertension Allegra Ko MD R2 Jul 15, 2016 07:43
[2016-07-15 07:46] LABS: ALKALINE PHOSPHATASE 129 U/L (45-117); TOTAL BILIRUBIN ADULT 0.3 MG/DL (0.2-1.0)
[2016-07-15 07:51] LABS: ALT (GPT) 44 U/L (12-78); ANION GAP 4 MEQ/L (5-15); AST (GOT) 83 U/L (15-37); BICARBONATE 44.3 MEQ/L (21.0-32.0); BLOOD UREA NITROGEN 10 MG/DL (7-18); CHLORIDE 84 MEQ/L (98-107); GLOMERULAR FILTRATION RATE 229 ML/MIN (>89); MAGNESIUM 1.7 MG/DL (1.5-2.5); POTASSIUM 4.8 MEQ/L (3.5-5.1); SODIUM (NA) 132 MEQ/L (136-145)
[2016-07-15 07:52] LABS: HEMO FLAGS AUTO DIFF
[2016-07-15] MEDS: CHLORHEXIDINE 0.12% (ORAL KIT) 15 ML CUP MT SCH ×2 (08:00→20:00)
[2016-07-15] MEDS: COLLAGENASE OINT 30 GM TUBE TOP SCH (09:00)
[2016-07-15] MEDS: BUMETANIDE 1 MG TAB PO SCH (09:00)
[2016-07-15] MEDS: SODIUM CHLORIDE 0.9% FLUSH 5 ML FLUSH IVF SCH ×2 (09:00→19:59)
[2016-07-15] MEDS: MICONAZOLE NITRATE 2% CREAM 15 GM TOP SCH ×2 (09:00→20:03)
[2016-07-15] MEDS: NYSTATIN 100,000 U/GM PWD 15 GM BTL TOPICAL SCH ×2 (09:00→20:03)
[2016-07-15 09:01] LABS: BANDS 3 % (0-6); EOSINOPHILS 3 % (0-4); METAMYELOCYTES 1 % (0-1); MYELOCYTES 3 % (0-0); NEUTROPHIL # MANUAL DIFF 7.1 TH/MM3 (1.8-7.7); POLYS (SEG NEUTROPHILS) 69 % (16-70); WBC DIFF SAMPLE 100
[2016-07-15 09:02] LABS: PLATELET ESTIMATE SMEAR NORMAL (NORMAL); PLATELET MORPHOLOGY NORMAL (NORMAL); SCAN/DIFF FINAL DIFF MANUAL
[2016-07-15 09:04] LABS: STOMATOCYTES 1+ (NORMAL)
[2016-07-15] MEDS: POTASSIUM CHLORIDE 20 MEQ CONTROLLED RELEASE TAB PO SCH ×2 (11:00→22:40)
--- NOTE | 2016-07-15 12:17 | HHI.CCPN ---
Subjective Remarks/Hospital Course 31 year old morbidly obese (BMI 68) male with chronic respiratory failure s/p tracheostomy 4 years ago, atrial fibrillation and pulmonary embolism on Xarelto , COPD, CHF and h/o HTN. He presented from [facility] with low oxygen saturation apparently his oxygen saturation was 82% on RA. He was placed back on 6L of oxygen via his trach mask and given a breathing treatment, initially improved however he started drifting back to low 80s again. Chest x-ray showed bibasilar infiltrates and pulmonary edema. Patient was admitted to the [facility] and was started on IV steroids IV vancomycin and Zosyn and Levaquin for healthcare associated pneumonia. After starting ACV, patient was more awake but there was a significant amount of air leak around his tracheostomy. Patient has had a Shiley 6.0 Proximal XLT, but the pilot can router balloon had been cut off. 05/02 the patient became acutely hypoxemic with a large cuff leak, underwent emergency trach exchange at bedside by Dr. Macias. FiO2 65% PEEP 14 05/13 Patient is on ventilator via trach, on Fentanyl infusion however he is awake and alert. On PRVC with FIO2 40%. Afebrile. 05/14 No acute events overnight. Tmax 99.8. Patient is awake, alert on ventilator via trach still requiring increase O2. On PRVC with PEEP: 10 and FIO2 70%. 05/15 Pt acutely desaturated after he was found. Saturation down to 70% on 100 % oxygen. Bag and mask ventilation carried out, with eventual improvement on oxygen saturation to 85%. Patient was placed on PC/AC mode of ventilation, with PEEP of 15 and instructed to pressure of 30. Eventually oxygen saturation improved to 95%. Lasix him today as the chest x-ray from today shows increasing bilateral infiltrate and pulmonary edema. Sputum culture will be sent 05/16 Patient is on Fentanyl and Diprivan infusion but awake and alert. Afebrile. On PC/AC with PEEP:15, IP: 22, IT:1.3 and FIO2 50% 05/17 Patient is off Diprivan and remains on Fentanyl infusion for sedation. On PC/AC with PEEP: down 10 and FIO2 40%. Afebrile. 05/18 Patient remains on ventilator via trach on PC/AC with PEEP:12, FIO2 40%, IP:22, IT:1.0. On Fentanyl infusion 05/19 No acute events overnight. On Fentanyl infusion but awake and alert. Afebrile. 05/20 Tolerating C Pap 17/12 FIO2 40, sats 98%. RSBI in 20s, appears can be weaned further. Afebrile. Speech therapy evaluated and ok for regular diet. Starting with full liquid. 05/21 Will wean PSV to 15/10. Tolerated full liquids, will advance to regular diet per speech recs. 05/22 On PSV 15/10 FIO2 40 with sats 92%. Smiling today. Glad to be eating regular food again. 05/23 No acute events overnight. Remains on CPAP with PS 15, PEEP:10 and FIO2 40 %. Afebrile. Off Fentanyl drip. Afebrile. Awake and alert. 05/24 Patient is on CPAP 06/06 with 40% FIO2. Afebrile. Awake and alert, on no sedation. 05/25 No acute events overnight. Patient was placed back on PC/AC overnight. Tolerated CPAP trials during day yesterday. Awake and alert. On no drips. Afebrile. 05/26 Afebrile. Tmax 98.6. Today the patient complained of nausea requiring Zofran. The patient has a lack of an appetite, with noted hypoglycemia early this a.m. blood glucose level 69. Patient tolerating CPAP well greater than 12 hours in the last 24 hours. 05/27 The patient tolerated CPAP for over 36 hours, O2 sat a knee 94% on FIO2 40 %. The patient had an increase in appetite. The patient continues on full liquid diet. 05/28 The patient declined physical therapy treatment, yesterday and also overnight declined to be moved by nursing staff. The patient refused dinner last evening, of note patient was reevaluated by speech therapy and can consume a heart healthy diet with thin liquids. The patient continues on physical therapy for strengthening exercises of all extremities specifically noted right upper extremity continues to be weak with gross fibrillations noted in hand and forearm. 05/29 Afebrile. No change in right upper extremity weakness. The patient was seen by neurology yesterday plan for MRI today if possible in hospital MRI, and EMG studies. No complaints overnight. Patient continues to refuse to have activities performed, movement in bed. The patient appears to be depressed, psychiatry consulted. 05/30: Patient alert awake on CPAP. Following commands. Psych agrees the patient is depressed. MRI brain no acute findings 05/31: Awake alert. on PS 15/8. EMG could not be completed due to patient becoming anxious. Otherwise no acute events reported overnight 06/01: Remains PS from 11/02. Right upper extremity weakness persists. EMG to be repeated on Friday. Will need MRI of the brachial plexus. Chest x-ray is unchanged 06/02: States that "not feeling well". Febrile to 101.5. White count increasing but still within the normal range. Pancultured. We'll request ID reevaluation. 06/03: Resting in bed on C Pap/pressure support via tracheostomy. One out of 2 sets of blood cultures sent on 06/02 positive for gram-positive cocci. 06/04: Resting in bed on mechanical ventilation via tracheostomy. Afebrile overnight. MRI brachial plexus (06/03) revealed a collection near the right subscapularis muscle, possibly an abscess. Discussed with ID, orthopedics Dr. Velazquez consulted. I discussed the case with Dr. Velazquez this morning who feels this is probably an abscess however would be difficult to access surgically and he plans to set up percutaneous drainage by interventional radiology. 06/05: Resting in bed on mechanical ventilation via tracheostomy. Remains afebrile. Reportedly IR cannot do percutaneous drainage of collection involving right subscapularis muscle. 06/06: Resting in bed on mechanical ventilation via tracheostomy. Can actually speak around the trach. Remains afebrile. Dr. Velazquez evaluated patient and is scheduling surgery for drainage of fluid collection involving the right subscapularis muscle. 06/07: Resting in bed on mechanical ventilation via tracheostomy. Awaiting surgery today. 06/08: Status post I&D of collection near right shoulder/subscapularis on 06/[address] Velazquez. This morning patient is awake and alert complained of some pain at the surgical site. Remains on mechanical ventilation on C Pap/pressure support. 06/09: Sleeping, arousable. On mechanical ventilation with C Pap/pressure support overnight. Labs pending 06/10 No acute events overnight. On CPAP with PS 12, PEEP: 8, FIO2 40%. Afebrile. 06/11 Patient remains on CPAP with PS 10, PEEP: 8 and FIO2 40%. Afebrile. 06/12: No acute events overnight. Remains on CPAP 10/5. No specific complaints 06/13: Tolerating C Pap 10 over 5. Awake and alert following commands. Hemoglobin dropped from 8.6-7.1, no obvious bleeding. Sodium 140-149. Will give 1 unit of PRBC with 1 mg IV Bumex 06/14 No acute events overnight. On CPAP with PS 10, PEEP:5 and FIO2 50%. Afebrile. 06/15 No acute events overnight. Remains on CPAP 10/5 with 40% FIO2. Afebrile. 06/16 Patient remains on ventilator via trach on CPAP with PS 10, PEEP:5 and FIO2 40%. 06/17: Resting in bed on mechanical ventilation via tracheostomy. Feeling nauseous. 06/18: OOB in reclining chair. Reporting low back and leg pain that is positional. Continued nausea, denies emesis. CPAP w PS 5 FIO2 40%. Will attempt Tpiece trial today. Discontinue Vanc + Zerbaxa today per ID 06/19: No acute events overnight. Afebrile. HTN to 160/80. CPAP with PS 10. PEEP 10 FIO2 45. Failed Tpiece trial yesterday- desaturated to mid 70s. Denies SOB/CP. Nausea is less than before. Bed is broken and patient would like the mattress to "rotate". Per nursing, they are working to fix it. 06/20: No acute events overnight. Afebrile. HTN to 145/70. CPAP with PEEP 10 FIO2 45, with saturation 93=94%. Pt has no acute complaints. Denies SOB/CP/ Nausea. Didn't know why he threw up during PT yesterday. Denies pain. Still having diarrhea (chronic years in duration issue). Was eating Pringles in bed. Per nursing, does not eat hospital food- waits for mother to bring him food. He was counseled to eat the hospital food which is healthier for him and that he needs to stop eating food brought in by his mother. 06/21: Remains on mechanical ventilation, CPAP with pressure support. 06/22: On mechanical ventilation on C Pap with pressure support. Denies any nausea or abdominal pain. Appears comfortable. 06/23: Resting in bed on mechanical ventilation with C Pap/pressure support +10/ +5. Denies any shortness of breath denies any abdominal pain or nausea currently. 06/24: Refusing to get OOB with physical therapy today. I had a long discussion with the patient about the fact that he has been inpatient for months now and he is severely deconditioned. He must get out of bed with PT to clinically improve, and deconditioning is a major factor in his chronic respiratory failure. He denies chest pain or SOB. does endorse some nausea today. 06/25: tolerated 4 hours OOB yesterday with 4 hours of trach collar. plan to go 6 hours today. 06/26: tolerated OOB to chair 5 hours yesterday but only 1.5hr of trach collar due to hypoxia. 06/27: tolerated OOB to chair for 6 hours yesterday and almost 5 hours of trach collar. daily, he continues to be very resistant to participating in PT and getting OOB. He again asks if he can lay in bed today. 06/28: tolerated 6 hours of trach collar yesterday. OOB for almost 8 hours. 06/29: continues to tolerate daily trach collar trials. OOB for 8 hours again yesterday. 06/30: tolerated 8 hours of trach collar yesterday. OOB for 7 hours. can do trach collar as tolerated. he continues to make attempts to refuse physical therapy and does not wish to participate in his care. 07/01: no changes. did well with 8 hours of trach collar and 8-9 hours of OOB. will attempt to stand and possibly walk in place today. this certainly is a large undertaking given how deconditioned he is, but I think the mobilization will help to continue our rehabilitation efforts. will be taxing on medical staff to physically assist him. This is likely something we can only do on a weekly basis. 07/02: took 3 steps yesterday (first time out of bed in almost 3 months). otherwise, tolerating daily t-piece with nightly CPAP. plan for OOB and steps again today. trach collar as tolerated. diamox x 3 doses for worsening contraction alkalosis. net -900cc/24h. 07/03: OOB and a few steps again yesterday. trying to push him to longer t-piece intervals with fewer rests on CPAP. OOB all day again today. net euvolemic yesterday. lab holiday today. 07/04: to chair today. trach collar as tolerated. I really think he could go most of the night if not all night on trach collar, but he keeps insisting on going back on the vent to rest. brought to my attention by family practice team for ankle skin breakdown. agree with podiatry consult. 07/05: OOB to chair again today. tolerated trach collar yesterday. CPAP at night. keeps asking to go back on rate on vent overnight. I do not think medically he needs this. podiatry saw patient and recommended dressing and elevation for foot. 07/06: on trach collar all night, not on the vent. this is a huge improvement. K 6.0 on bmp this AM, but Cr at baseline. will recheck. 07/07: remains off the vent on trach collar. weaning fio2. OOB again. recheck K yesterday 6.0--> 3.7, so likely spurious lab. I think tomorrow if he remains on trach collar, he is safe to go back to his facility. 07/08: No acute issues overnight. Plans for transfer to his facility with case management assistance. 07/09: Afebrile.The patient continues on trach collar. After readjustment in the bed early this a.m., the patient required increased O2 requirements to FiO2 of 90% which was decreased back down to 70% within an hour. No acute respiratory distress was noted. 07/10: Afebrile.No acute issues overnight. Patient continues on trach collar without any issues,O2 at 6-8 L/m. Subjective: 07/11: Noted anterior left chest, appearance of fungal skin infection, spreading despite use of 2 antifungal creams. No acute issues overnight, awaiting peer-to -peer phone conversation with LTAC facility regarding necessity secondary to oxygen usage. 07/12: continues to make slow clinical improvements. had to go back to 100% fio2 last night, but remained off mechanical ventilatory support. [id number] convo today, I do think he would wean back to baseline fio2 within 2-3 weeks, given how much he has improved over the last few weeks. 07/13: No changes. continues to improve slowly. fio2 70% during the day, 90% at night. weaning fio2 during the day today. OOB to chair for most of the day. awaiting decision by insurance company for possible LTAC. 07/14: Remains on TP, now on 98% oxygen. Chest x-ray pending. No report of increased secretions, no fever 07/15: Sitting up and stretches chair today. Breathing more comfortably. Chest x-ray yesterday showed probable worsening right lower lobe infiltrate. Repeat cultures pending. FiO2 had been weaned down to 70% Objective Vital Signs Date Time Temp Pulse Resp B/P Pulse Ox O2 Delivery O2 Flow Rate FiO2 07/15/16 10:01 88 07/15/16 08:00 98.3 22 102/50 97 07/15/16 08:00 T-Piece 70 07/12/16 19:58 10.00 Intake and Output 07/14/16 07/14/16 07/15/16 08:00 16:00 00:00 Intake Total 300 ml 360 ml 420 ml Output Total 350 ml 600 ml 350 ml Balance -50 ml -240 ml 70 ml Result Diagram: 07/15/16 0605 07/15/16 0605 Imaging MRI 06/20/16: No official reading. Preliminary reading suggests periventricular white matter changes at basal ganglia and no evidence ischemia CXR 06/17/16: Poor penetration. Rotated image. Unable to visualize lung bases. Possible atelectasis vs infiltrate R worse than L. Objective Remarks GEN: 31yo on trach collar, awakens and follows commands. Super morbidly obese. SKIN: Warm and dry. Tinea corporis appearing lesions left anterior chest. HEAD: Normocephalic. EYES: No scleral icterus. No injection or drainage. NECK: obese with large neck circumference, trachea midline. Shiley 6.0 Proximal XLT, (new trach placed 05/02/16) CV: normal rate, regular rhythm. RESP: On mechanical ventilation, Breath sounds equal bilaterally. Distant secondary to habitus. GI: Abdomen soft, obese, non-tender, nondistended. MSK: No cyanosis, or edema. Pedal edema. Neuro: Moves all extremities with focal weakness right upper extremity. A/P Assessment and Plan ASSESSMENT Acute hypercapnic and hypoxemic respiratory failure (Shiley 6.0 Proximal XLT) CO2 narcosis (resolved) Acute worsening of hypoxia due to lung de-recruitment (05/15/16, resolved) Worsening hypoxia 07/14/16 now following Healthcare associated pneumonia MDR Pseudomonas Enterococcal bacteremia Pseudomonas bacteremia Collection near right subscapularis muscle(On MRI 06/03) - hematoma status post I &D on 06/07 Sepsis CHF exacerbation Tracheostomy pilot can router balloon damage -status post exchange with new Shiley 6.0 Proximal XLT 05/02/16 Probable right brachial plexus injury COPD/obesity hypoventilation syndrome Morbid Obesity BMI 60-69 History of pulmonary embolism 4 years ago Chronic atrial fibrillation Anxiety CHF (Echo 2013 EF 40-45%; ECHO 08/2015 showing a grossly normal systolic function) Hypertension Hypothyroidism Depression PLAN NEURO: CO2 narcosis - resolved Critical care polyneuropathy Right upper extremity weakness 05/21-possibly secondary to nerve compression, C6 , C7 (brachial plexus) Pain Anxiety Depression -Clinically had right brachial plexus involvement. MRI of brachial plexus on 06/03 revealed collection involving right subscapularis muscle- s/p I & D on 06/[address] Velazquez. -Neurology Dr. Cheek-MRI brain, C spine no acute findings. -Venous Doppler RUE 05/28-negative for DVT -Continued PT daily, with strengthening exercises -Continue Seroquel 100mg HS. Continue Zoloft 100mg daily -Decreased pain req: Tylenol 625mg pain 1-6, Percocet 10/325 pain 7-10 RESP: Acute hypercapnic and hypoxemic respiratory failure Acute lung derecruitment 05/15 with hypoxia Worsening hypoxia 07/14/16 probable lung de-recruitment Healthcare associated pneumonia Tracheostomy pilot can router balloon damage (Shiley 6.0 Proximal XLT) s/p new trach placement 05/02 Chronic Respiratory Failure s/p Tracheostomy 4 years ago COPD/obesity hypoventilation syndrome History of pulmonary embolism 4 years ago Leukocytosis-resolved Pulmonary edema - s/p Bronchoscopy 05/11 - BAL results negative - Aggressive Pulm toilet, trach care - Keep sat >87% on T-piece, TP during daytime and daily PS/CPap t night, to avoid lung de-recruitment - Continue DuoNeb q6h REYES + q2h PRN, Pulmicort BID, Singulair 10mg daily - Continue trach collar OOB to chair, minimum 4 hours daily, should increase it to every shift eventually CV: CHF exacerbation Pulmonary edema Paroxysmal atrial fibrillation (chronic) Hyperlipidemia -Monitor HR and BP keep MAP>65mmHg -Cardizem 90mg QID, Bumex 1mg daily PO, Lipitor 10g daily, TriCor 40mg by mouth daily -continue on home Xarelto. GI: Super morbid obesity with BMI of 64 Nausea GERD -Regular diet, thin liquids per speech recs -Liver US 06/03: Fatty liver, sludge in gallbladder, splenomegaly, no mechanical obstruction of bile duct noted. -Protonix 20mg BID. Zofran prn for nausea. -Multivitamin daily -Bringing in food, per nurses. Not adherent to hospital diet. FEN/RENAL: Hypokalemia Metabolic alkalosis - Monitor renal function , I/O, electrolytes replacement per protocol. - Bumex 1mg PO daily, KCL 40meq Q12hr - Willard was discontinued. we are using a rectal bag to collect urine and keep sacral area clean. no indication for willard catheter. ID: Healthcare associated pneumonia Sepsis New fever-resolved MDRO Cellulitis right arm-resolved Leukocytosis-resolved Enterococcal faecalis bacteremia, Pseudomonas bacteremia (06/02, 06/03) -Wound culture Pseudomonas MDR 04/27 -Sputum culture-Pseudomonas MDR- 04/27 -Urine cx: Proteus Mirabilis 05/05 -Sputum cx: Providencia 05/05, rpt sputum 07/14/16 pending -Bronchoscopy and re-culture 05/10- NG -Wound cx: Proteus, Pseudomonas, Group D Enterococcus- 05/13 -Sputum cx- NG- 05/15 -Blood culture: aerobic and anaerobic bottles - enterococcus faecalis, pseudomonas aeruginosa 06/02, 06/03 -Urine culture: pseudomonas aeruginosa- 06/02 -Wound culture: pseudomonas aeruginosa- 06/02 -Sputum culture: Pseudomonas- 06/02 -Dr. Velazquez performed drainage of collection surgically on 06/07- likely hematoma -Stopped IV Vanc and Zerbaxa on 06/18. (MDR pseudomonas in blood cultures) -Colistin nebs stopped 06/27 HEME: History of PE on chronic anticoagulation with Xarelto Iron deficiency anemia and anemia of critical illness. -Monitor CBC, transfused 1U PRBC 06/13 -Xarelto for PE 4 yrs ago. Continue Xarelto. -Ferrous sulfate 300 mg/q day ENDO: Hypothyroidism -On SSI (Low scale) -Continue levothyroxine 50 mcg po daily -Free T4 1.52 MSK: --agree with podiatry consult. -Continue physical therapy PROPH: -Lower extremity SCDs (L leg only, R ankle cellulitis), continue home xarelto GI prophylaxis- Protonix 20mg BID LINES: - PICC line RUE- No DVT on US 05/02 - removed on 06/03. PIV 's x 2 - Willard catheter removed 07/05. we are using rectal bag to collect urine in an effort to keep sacral and groin area clean and free of skin breakdown. Out of bed with assistance. PT out of bed with vent. OT. Dispo: Scheduled to transfer assisted facility, case management facilitation. Awaiting decision for LTAC. Until then, he remains in the ICU. Dispo: Level 3 Jaquan Zelaya MD Jul 15, 2016 12:17
[2016-07-15] MEDS: DILTIAZEM HCL 90 MG TAB PO SCH ×4 (13:00→19:59)
[2016-07-15] MEDS: FLUCONAZOLE 200 MG TAB PO SCH (14:38)
[2016-07-15] MEDS: FENOFIBRATE 48 MG TAB PO SCH (14:38)
[2016-07-15] MEDS: RIVAROXABAN 20 MG TAB PO SCH (14:38)
[2016-07-15] MEDS: SERTRALINE HCL 100 MG TAB PO SCH (14:39)
[2016-07-15] MEDS: MULTIVITAMIN TAB PO SCH (14:39)
[2016-07-15] MEDS: ATORVASTATIN 10 MG TAB PO SCH (14:39)
[2016-07-15] MEDS: ALLOPURINOL 300 MG TAB PO SCH (14:39)
[2016-07-15] MEDS: MONTELUKAST SODIUM 10 MG TAB PO SCH (14:40)
[2016-07-15] MEDS: FERROUS SULFATE 325 MG (65 MG ELEMENTAL IRON) TAB PO SCH (14:40)
[2016-07-15] MEDS: PANTOPRAZOLE SOD 20 MG DELAYED RELEASE TAB PO SCH ×2 (14:40→19:59)
[2016-07-15] MEDS: QUEtiapine FUMARATE 100 MG TAB PO SCH (19:59)
[2016-07-15] MEDS: RESP: ALBUTEROL 2.5 MG/IPRATROPIUM 0.5 MG NEB (PRN) NEB (20:51)
[2016-07-15] MEDS: ZOLPIDEM TARTRATE 10 MG TAB PO PRN (22:40)
[2016-07-15] MEDS: ACETAMINOPHEN 325 MG TAB PO PRN (22:40)
[2016-07-16] VITALS (13 sets, daily range): BP systolic 105–125; BP diastolic 55–70; PULSE 85–100; RESP 17–35; TEMP 98.3–98.9; O2SAT 88–95
[2016-07-16] MEDS: INSULIN NovoLIN REGULAR SUPPLEMENTAL SCALE SQ SCH (05:48)
[2016-07-16] MEDS: LEVOTHYROXINE SODIUM 50 MCG TAB PO SCH (05:48)
--- NOTE | 2016-07-16 06:19 | RADRPT ---
EXAM DATE/TIME: 07/16/2016 04:36 [facility] COMPARISON: CHEST SINGLE AP, July 14, 2016, 10:15. INDICATIONS : Respiratory distress. MEDICAL HISTORY : Hypertension. Congestive heart failure. SURGICAL HISTORY : Tracheostomy. ENCOUNTER: Subsequent ACUITY: 3 months PAIN SCORE: Non-responsive. LOCATION: Bilateral chest FINDINGS: Tracheostomy is stable. Bilateral perihilar and basilar parenchymal opacities persist, right worse th an left with low or no change. CONCLUSION: No significant change. Garcia Craft MD on July 16, 2016 at 6:17 Board Certified Radiologist. This report was verified electronically.
--- NOTE | 2016-07-16 06:46 | HHI.FPPN ---
Subjective Remarks Overnight, required return to CPAP: PEEP 7, 6-8L, FIO2 40-50% Satting well at 93 -95%. AF. B/P 110/70. Good I/O- Net balance -300mL Will re-weight patient- 20 lb discrepancy between yesterday and today Eating, voiding, stooling w/o difficulty. OOB to chair with assistance. Continuing to wait on placement to [facility] Objective Vitals Vital Signs Date Time Temp Pulse Resp B/P Pulse Ox O2 Delivery O2 Flow Rate FiO2 07/16/16 06:23 95 40 07/16/16 04:04 93 50 07/16/16 04:00 98.6 90 35 108/59 95 07/16/16 02:14 93 50 07/16/16 00:00 98.9 91 17 107/55 93 07/15/16 23:43 14 07/15/16 22:27 92 50 07/15/16 20:54 96 50 07/15/16 20:00 98.4 98 35 122/66 92 07/15/16 20:00 101 07/15/16 20:00 92 Bi-Pap 70 T-Piece 07/15/16 12:12 98.7 88 22 108/54 95 07/15/16 10:01 88 07/15/16 08:00 98.3 72 22 102/50 97 07/15/16 08:00 93 T-Piece 70 07/15/16 07:28 90 50 I/O 07/15/16 07/15/16 07/15/16 07/16/16 07/16/16 07/16/16 07:00 15:00 23:00 07:00 15:00 23:00 Intake Total 240 ml 450 ml 245 ml 300 ml Output Total 400 ml 700 ml 275 ml 350 ml Balance -160 ml -250 ml -30 ml -50 ml Intake Oral 240 ml 450 ml 240 ml 300 ml IV Total 0 ml 0 ml 5 ml 0 ml Output Urine Total 400 ml 700 ml 275 ml 350 ml # Bowel Movements 0 1 1 1 Result Diagram: 07/15/1660407/15/16604 Imaging see A/P for pertinent Objective Remarks CONST: Morbidly obese male, NAD. DERM: Flat, erythematous, blanching rash with central clearing on bilateral arms , forearms, deltoids, upper torso, continues to improve. Well-healing scar R shoulder. White flaky patch of skin on R arm ~2inches diameter. R lat malleolus with 1.5 x 1.5 cm skin break down. Area in bandage- c/d/i. Numerous skin folds 2/2 habitus. Dry, flaking skin on feet. Bruising on abdomen HEENT: Tracheotomy site c/d/i. Poor dentition. MMM CV: Distant heart sounds. RRR. RESP: Anterior exam: end expiratory wheezing. Breathing comfortably on T piece GI: NDNT. MSK: External rotation of RLE and LLE NEURO: CN grossly normal. PSYCH: Appears resigned/moderately apathetic. Begrudgingly complies with care requests. Poor insight. . Procedures 04/24- Started ventilation 05/02- Emergency Trach Exchange 06/03- PICC line removed 06/07- Debridement of RUE abscess (Dr. Velazquez), RUE drain placed. 06/10- RUE drain removal 07/05- Removed from ventilation, continuous T-piece, remained off ventilation since A/P Assessment and Plan 31yo male with morbid obesity (BMI 68 on admit) admitted 04/24/16 for acute on chronic respiratory failure. Discharge Planning Pending placement. Have been attempting to place since 07/08/15. Off mechanical ventilation since 07/05/15. On T-piece using 8-10L. Case management working on placement. Dr. Brown did peer to peer with [place] [employer] for placement at [facility] (refused to cover cost of admission, SNF not in their approved list) Dr. Morgan, , called insurance 07/10/12- did not get a response. Denied placement to [facility]. Denied placement [facility] (can accommodate up to 6L oxygen, pt using 8L) SDW: Dr. Watts Problem List: (1) PLAN Status: Chronic Plan: NEURO/PSYCH CO2 narcosis -Resolved with oxygen supplementation Polyneuropathy of Critical illness -Continue PT, discharge to SNF RUE weakness/pain & Cervical neuropathy -Did not tolerate EMG of RUE. MRI of RUE and C-spine WNL. -Continue PT/OT, Frequent rotations, OOB to chair -Ibuprofen 600mg q6h pain Anxiety/MDD -Initially refusing meals, bathing. Improved. However, continued reluctance to participate in PT/OT. Many somatic complaints (RUBY, nausea, nonspecific pain, etc) -Seroquel 100mg HS -Zoloft 200mg daily Insomnia- -Zolpidem 5mg HS Disordered eating - At SNF, hx of hiding food in body folds. Did not adhere to dietary restraint while in hospital- family repeatedly brought in food: pizza, pringles , etc. Poor insight. 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 s/ p new trach placement 05/02. Clinical course complicated by HCAP and bacteremia. s/p Bronchoscopy 05/11 - BAL results negative . Resolved, weaned from ventilator and CPAP, off ventilator since 07/05/15. Treated with bronchodilators and weaning from vent. -Resolved Chronic Respiratory Failure s/p Tracheostomy (2011) -Aggressive pulmonary toliet, trach care, oxygen supplementation, as needed for O2 saturation 92%+ Healthcare associated pneumonia -Resolved, see ID Pickwickian Syndrome -Oxygen support PRN for saturation 92%+, wean as tolerated History of pulmonary embolism 2011 -Continue home Xarelto Pulmonary edema -diuresis PRN (see CHF) CV: CHF: -Suspected HF with poor EF, though unable to confirm via ECHO (04/25) due to poor imaging. BNP elevated on admission, downtrended. -Monitor HR and BP keep MAP>65mmHg -Bumex 1mg daily PO Paroxysmal atrial fibrillation (history of, currently SNR) -Cardiazem 90mg QID -Xarelto GI/LIVER Super morbid obesity with BMI 60-69 (on admission), 50-59 (current) -Wt 480 lbs on admission (04/25/16). Wt 414 lbs on discharge (07/12/15) -Diet per nutrition recommendations- regular, thin liquids, 2000 calorie heart healthy diet (1.5L fluids, 2g sodium, no caffeine), no outside food Nausea- GERD vs gastroparesis vs psychosomatic. Chronic- waxing and waning. -Zofran ODT q4h PRN -Protonix 20mg BID Hyperlipidemia -Lipitor 10g daily -TriCor 40mg by mouth daily Episodes of food refusal -Adhere to hospital diet Splenomegaly -Incidental finding. Continue to monitor Fatty Liver Disease: per Liver US 06/03/16 -Lose weight to healthy weight BMI <25 Diarrhea -Chronic. Present prior to admission. C. difficile testing negative. Ddx: poor diet vs medication side effect. -Adhere to hospital diet, no outside food, continue to monitor FEN/RENAL: Chronic Hypokalemia: KCL 40 meq BID replacement REYES +ICU electrolyte replacement protocol PRN Metabolic alkalosis - Monitor renal function, I/O, electrolytes replacement per protocol. Urinary incontinence: Unable to use bedside commode secondary to body habitus. -Rectal bag to collect urine and keep sacral area clean. No indication for willard catheter. Hypomagnesemia -Replete per ICU protocol ID/DERM Infectious disease consulted Fungal dermatitis: Approx two weeks old. Initially under where trach tube ran/area of increased moisture then spread from L shoulder to L shoulder/bilateral arms/upper torso. Improving with: -Diflucan 200mg daily (07/11- 07/16)- six days total -Wound culture ordered, follow culture -Continue nystatin powder -Continue miconazole creme Resolved (see below) Bacteremia- Enterococcal faecalis bacteremia, Pseudomonas bacteremia (06/02, 06/03) HCAP, Sepsis, Fever, Yeast UTI, Hx MDRO, Cellulitis R arm, Leukocytosis Cultures -Blood culture: aerobic and anaerobic bottles - enterococcus faecalis, pseudomonas aeruginosa 06/02, 06/03 -Urine culture: pseudomonas aeruginosa- 06/02 -Wound culture: pseudomonas aeruginosa- 06/02 -Sputum culture: Pseudomonas- 06/02 -Sputum cx- NG- 05/15 -Wound cx: Proteus, Pseudomonas, Group D Enterococcus- 05/13 -Bronchoscopy and re-culture 05/10- NG -Wound culture Pseudomonas MDR 04/27 -Sputum culture-Pseudomonas MDR- 04/27 -Urine cx: Proteus Mirabilis 05/05 -Sputum cx: Providencia 05/05 Abx History Zosyn 4.5gm IV q6h (04/24 - 04/29) Levaquin 750mg IV q24h (04/24-04/30) Zerbaxa 1.5 g IV q8h (04/29 - 05/07) Vancomycin IV (04/24 - 05/06) Ceftriaxone IV (05/07 - 05/25) Linezolid 600 mg PO BID (05/06 - 11/14) Zosyn 3.375 q6h (06/04- 06/05) Vancomycin IV daily goal trough 15-20, (06/03 -06/18) Zerbaxa IV q8h (06/05-06/18) HEME: History of PE (2011)- chronic anticoagulation with Xarelto -Xarelto Normocytic Anemia- iron deficiency vs anemia of critical illness -Ferrous sulfate 325mg PO daily ENDO: Hypothyroidism- 05/27/16- TSH low, free T4 grossly wnl - Synthroid 50 mcg PO daily Hyperglycemia of Critical care -On SSI (Low scale) MSK General surgery, podiatry, orthopedics, neurologic, rehab medicine consulted RUE Weakness: secondary to hematoma vs C6/C7 neuropathy. L hemispheric pathology and seizure r/o via imaging. Unable to tolerate EMG. Venous Doppler RUE 05/28 negative for DVT. Improving -Aggressive PT: RUE strength training -Ibuprofen 600mg q6h PRN pain control Deconditioned -RLE strengthening internal rotation -OOB to chair -Aggressive OT: feed self Hematoma: S/p I&D by Dr. Velazquez (06/07/16). Small hematoma found during procedure inconsistent with 6cm x 6cm x 8cm abscess per MRI brachial plexus. -Resolved. Consider re-imaging in future if pain or RUE weakness worsens R ankle decubitus ulcer: present on admission, worsened during hospital stay from prolonged immobilization. Wound Cx (07/05): Providencia stuartii. Podiatry, Wound Care consulted. -Daily dressing changes with xeroform, primapore, optifoam dressings Decubitus ulcer -Offload pressure Gout -Allopurinol 300mg daily Hematoma -Resolved s/p I&D, re-image if RUE weakness/pain worsens Imaging: - US negative for DVT (05/28) - MRI brain (04/28) no acute intracranial process - MRI C-spine (05/29): grossly wnl - EEG (05/29): diffuse mild encephalopathy vs normal Stage 2 sleep - MRI brachial plexus (06/03): "Complex multiloculated soft tissue and cystic mass 5.5 x 6 x 7.8 cm involving subscapularis muscle along anterior R scapula - Pathology report (06/07): fragments of blood clot admixed with few minute fragments of adipose and skeletal muscle tissue (2) Acute on chronic respiratory failure with hypoxia and hypercapnia Status: Resolved (3) Fungal infection Status: Acute (4) Nausea Status: Chronic (5) Hematoma Status: Acute (6) CHF (congestive heart failure) Status: Chronic (7) Yeast UTI Status: Resolved (8) Moderate protein malnutrition Status: Chronic (9) Pressure ulcer of right leg, stage 2 Status: Chronic (10) Paroxysmal a-fib Status: Chronic (11) MDD (major depressive disorder) Status: Chronic (12) History of DVT (deep vein thrombosis) Status: Chronic (13) Hypothyroidism Status: Chronic (14) On mechanically assisted ventilation Status: Chronic (15) Normocytic anemia Status: Chronic (16) Gout Status: Chronic Plan: see plan above (17) Hyperlipidemia Status: Chronic Plan: see plan above (18) Pneumonia Status: Resolved (19) Hypomagnesemia Status: Resolved (20) Chronic respiratory failure Status: Chronic (21) Hypokalemia Status: Chronic (22) Diarrhea Status: Chronic (23) Morbid obesity with BMI of 50.0-59.9, adult Status: Chronic (24) Pickwickian syndrome Status: Chronic (25) Sacral decubitus ulcer Status: Chronic (26) Urinary incontinence due to immobility Status: Chronic (27) NAFLD (nonalcoholic fatty liver disease) Status: Chronic (28) Splenomegaly Status: Chronic (29) Somatic complaints, multiple Status: Chronic (30) Pulmonary edema Status: Chronic (31) History of pulmonary embolus (PE) Status: Chronic (32) CO2 narcosis Status: Resolved (33) Polyneuropathy associated with critical illness Status: Chronic (34) Weakness of right upper extremity Status: Chronic (35) Cervical plexus neuropathy Status: Chronic (36) Anxiety Status: Chronic (37) Insomnia Status: Chronic (38) Disordered eating Status: Chronic (39) Tracheostomy present Status: Chronic (40) HTN (hypertension) Status: Chronic (41) HCAP (healthcare-associated pneumonia) Status: Resolved (42) Cellulitis of chest wall Status: Resolved (43) Stress hyperglycemia Status: Resolved (44) Bacteremia Status: Resolved Problem Qualifiers (1) CHF (congestive heart failure): Qualified Code: I50.9 - Acute on chronic congestive heart failure, unspecified congestive heart failure type (2) MDD (major depressive disorder): Qualified Code: F33.2 - Severe episode of recurrent major depressive disorder, without psychotic features (3) Hypothyroidism: Qualified Code: E03.9 - Hypothyroidism, unspecified type (4) Chronic respiratory failure: Qualified Code: J96.10 - Chronic respiratory failure, unspecified whether with hypoxia or hypercapnia (5) Insomnia: Qualified Code: F51.04 - Psychophysiological insomnia (6) HTN (hypertension): Qualified Code: I10 - Essential hypertension Holley Baires MD R1 Jul 16, 2016 06:46
[2016-07-16 07:00] LABS: HEMATOCRIT 33.7 % (39.0-51.0); MEAN CELL VOLUME 85.7 FL (80.0-100.0); MEAN CORPUSCULAR HEMOGLOBIN 26.3 PG (27.0-34.0); MEAN CORPUSCULAR HGB CONC 30.7 % (32.0-36.0); PLATELET COUNT 248 TH/MM3 (150-450); RED BLOOD COUNT 3.93 MIL/MM3 (4.50-5.90); RED CELL DISTRIBUTION WIDTH 24.1 % (11.6-17.2); REVIEW FLAG FINAL; WHITE BLOOD COUNT 9.4 TH/MM3 (4.0-11.0)
[2016-07-16] MEDS: CHLORHEXIDINE 0.12% (ORAL KIT) 15 ML CUP MT SCH ×2 (08:00→20:13)
[2016-07-16] MEDS: RESP: ALBUTEROL 2.5 MG/IPRATROPIUM 0.5 MG NEB (PRN) NEB ×2 (08:42→19:45)
[2016-07-16] MEDS: RESP: BUDESONIDE 0.5 MG/2 ML NEB NEB SCH ×2 (08:43→19:45)
[2016-07-16] MEDS: RIVAROXABAN 20 MG TAB PO SCH (09:00)
[2016-07-16] MEDS: SODIUM CHLORIDE 0.9% FLUSH 5 ML FLUSH IVF SCH ×2 (09:00→20:12)
[2016-07-16] MEDS: NYSTATIN 100,000 U/GM PWD 15 GM BTL TOPICAL SCH ×2 (09:00→20:10)
[2016-07-16] MEDS: ATORVASTATIN 10 MG TAB PO SCH (09:00)
[2016-07-16] MEDS: SERTRALINE HCL 100 MG TAB PO SCH (09:00)
[2016-07-16] MEDS: MULTIVITAMIN TAB PO SCH (09:00)
[2016-07-16] MEDS: ALLOPURINOL 300 MG TAB PO SCH (09:00)
[2016-07-16] MEDS: COLLAGENASE OINT 30 GM TUBE TOP SCH (09:00)
[2016-07-16] MEDS: DILTIAZEM HCL 90 MG TAB PO SCH ×4 (09:00→20:43)
[2016-07-16] MEDS: PANTOPRAZOLE SOD 20 MG DELAYED RELEASE TAB PO SCH ×2 (09:00→20:09)
[2016-07-16] MEDS: FENOFIBRATE 48 MG TAB PO SCH (09:00)
[2016-07-16] MEDS: BUMETANIDE 1 MG TAB PO SCH (09:00)
[2016-07-16] MEDS: MICONAZOLE NITRATE 2% CREAM 15 GM TOP SCH ×2 (09:00→20:11)
[2016-07-16] MEDS: MONTELUKAST SODIUM 10 MG TAB PO SCH (09:00)
[2016-07-16] MEDS: FERROUS SULFATE 325 MG (65 MG ELEMENTAL IRON) TAB PO SCH (09:00)
[2016-07-16] MEDS: POTASSIUM CHLORIDE 20 MEQ CONTROLLED RELEASE TAB PO SCH (11:00)
--- NOTE | 2016-07-16 14:31 | HHI.CCPN ---
Subjective Remarks/Hospital Course 31 year old morbidly obese (BMI 68) male with chronic respiratory failure s/p tracheostomy 4 years ago, atrial fibrillation and pulmonary embolism on Xarelto , COPD, CHF and h/o HTN. He presented from [facility] with low oxygen saturation apparently his oxygen saturation was 82% on RA. He was placed back on 6L of oxygen via his trach mask and given a breathing treatment, initially improved however he started drifting back to low 80s again. Chest x-ray showed bibasilar infiltrates and pulmonary edema. Patient was [place] [facility] and was started on IV steroids IV vancomycin and Zosyn and Levaquin for healthcare associated pneumonia. After starting ACV, patient was more awake but there was a significant amount of air leak around his tracheostomy. Patient has had a Shiley 6.0 Proximal XLT, but the line pilot balloon had been cut off. 05/02 the patient became acutely hypoxemic with a large cuff leak, underwent emergency trach exchange at bedside by Dr. Macias. FiO2 65% PEEP 14 05/13 Patient is on ventilator via trach, on Fentanyl infusion however he is awake and alert. On PRVC with FIO2 40%. Afebrile. 05/14 No acute events overnight. Tmax 99.8. Patient is awake, alert on ventilator via trach still requiring increase O2. On PRVC with PEEP: 10 and FIO2 70%. 05/15 Pt acutely desaturated after he was found. Saturation down to 70% on 100 % oxygen. Bag and mask ventilation carried out, with eventual improvement on oxygen saturation to 85%. Patient was placed on PC/AC mode of ventilation, with PEEP of 15 and instructed to pressure of 30. Eventually oxygen saturation improved to 95%. Lasix him today as the chest x-ray from today shows increasing bilateral infiltrate and pulmonary edema. Sputum culture will be sent 05/16 Patient is on Fentanyl and Diprivan infusion but awake and alert. Afebrile. On PC/AC with PEEP:15, IP: 22, IT:1.3 and FIO2 50% 05/17 Patient is off Diprivan and remains on Fentanyl infusion for sedation. On PC/AC with PEEP: down 10 and FIO2 40%. Afebrile. 05/18 Patient remains on ventilator via trach on PC/AC with PEEP:12, FIO2 40%, IP:22, IT:1.0. On Fentanyl infusion 05/19 No acute events overnight. On Fentanyl infusion but awake and alert. Afebrile. 05/20 Tolerating C Pap 17/12 FIO2 40, sats 98%. RSBI in 20s, appears can be weaned further. Afebrile. Speech therapy evaluated and ok for regular diet. Starting with full liquid. 05/21 Will wean PSV to 15/10. Tolerated full liquids, will advance to regular diet per speech recs. 05/22 On PSV 15/10 FIO2 40 with sats 92%. Smiling today. Glad to be eating regular food again. 05/23 No acute events overnight. Remains on CPAP with PS 15, PEEP:10 and FIO2 40 %. Afebrile. Off Fentanyl drip. Afebrile. Awake and alert. 05/24 Patient is on CPAP 06/06 with 40% FIO2. Afebrile. Awake and alert, on no sedation. 05/25 No acute events overnight. Patient was placed back on PC/AC overnight. Tolerated CPAP trials during day yesterday. Awake and alert. On no drips. Afebrile. 05/26 Afebrile. Tmax 98.6. Today the patient complained of nausea requiring Zofran. The patient has a lack of an appetite, with noted hypoglycemia early this a.m. blood glucose level 69. Patient tolerating CPAP well greater than 12 hours in the last 24 hours. 05/27 The patient tolerated CPAP for over 36 hours, O2 sat a knee 94% on FIO2 40 %. The patient had an increase in appetite. The patient continues on full liquid diet. 05/28 The patient declined physical therapy treatment, yesterday and also overnight declined to be moved by nursing staff. The patient refused dinner last evening, of note patient was reevaluated by speech therapy and can consume a heart healthy diet with thin liquids. The patient continues on physical therapy for strengthening exercises of all extremities specifically noted right upper extremity continues to be weak with gross fibrillations noted in hand and forearm. 05/29 Afebrile. No change in right upper extremity weakness. The patient was seen by neurology yesterday plan for MRI today if possible in hospital MRI, and EMG studies. No complaints overnight. Patient continues to refuse to have activities performed, movement in bed. The patient appears to be depressed, psychiatry consulted. 05/30: Patient alert awake on CPAP. Following commands. Psych agrees the patient is depressed. MRI brain no acute findings 05/31: Awake alert. on PS 15/8. EMG could not be completed due to patient becoming anxious. Otherwise no acute events reported overnight 06/01: Remains PS from 11/02. Right upper extremity weakness persists. EMG to be repeated on Friday. Will need MRI of the brachial plexus. Chest x-ray is unchanged 06/02: States that "not feeling well". Febrile to 101.5. White count increasing but still within the normal range. Pancultured. We'll request ID reevaluation. 06/03: Resting in bed on C Pap/pressure support via tracheostomy. One out of 2 sets of blood cultures sent on 06/02 positive for gram-positive cocci. 06/04: Resting in bed on mechanical ventilation via tracheostomy. Afebrile overnight. MRI brachial plexus (06/03) revealed a collection near the right subscapularis muscle, possibly an abscess. Discussed with ID, orthopedics Dr. Velazquez consulted. I discussed the case with Dr. Velazquez this morning who feels this is probably an abscess however would be difficult to access surgically and he plans to set up percutaneous drainage by interventional radiology. 06/05: Resting in bed on mechanical ventilation via tracheostomy. Remains afebrile. Reportedly IR cannot do percutaneous drainage of collection involving right subscapularis muscle. 06/06: Resting in bed on mechanical ventilation via tracheostomy. Can actually speak around the trach. Remains afebrile. Dr. Velazquez evaluated patient and is scheduling surgery for drainage of fluid collection involving the right subscapularis muscle. 06/07: Resting in bed on mechanical ventilation via tracheostomy. Awaiting surgery today. 06/08: Status post I&D of collection near right shoulder/subscapularis on 06/[address] Velazquez. This morning patient is awake and alert complained of some pain at the surgical site. Remains on mechanical ventilation on C Pap/pressure support. 06/09: Sleeping, arousable. On mechanical ventilation with C Pap/pressure support overnight. Labs pending 06/10 No acute events overnight. On CPAP with PS 12, PEEP: 8, FIO2 40%. Afebrile. 06/11 Patient remains on CPAP with PS 10, PEEP: 8 and FIO2 40%. Afebrile. 06/12: No acute events overnight. Remains on CPAP 10/5. No specific complaints 06/13: Tolerating C Pap 10 over 5. Awake and alert following commands. Hemoglobin dropped from 8.6-7.1, no obvious bleeding. Sodium 140-149. Will give 1 unit of PRBC with 1 mg IV Bumex 06/14 No acute events overnight. On CPAP with PS 10, PEEP:5 and FIO2 50%. Afebrile. 06/15 No acute events overnight. Remains on CPAP 10/5 with 40% FIO2. Afebrile. 06/16 Patient remains on ventilator via trach on CPAP with PS 10, PEEP:5 and FIO2 40%. 06/17: Resting in bed on mechanical ventilation via tracheostomy. Feeling nauseous. 06/18: OOB in reclining chair. Reporting low back and leg pain that is positional. Continued nausea, denies emesis. CPAP w PS 5 FIO2 40%. Will attempt Tpiece trial today. Discontinue Vanc + Zerbaxa today per ID 06/19: No acute events overnight. Afebrile. HTN to 160/80. CPAP with PS 10. PEEP 10 FIO2 45. Failed Tpiece trial yesterday- desaturated to mid 70s. Denies SOB/CP. Nausea is less than before. Bed is broken and patient would like the mattress to "rotate". Per nursing, they are working to fix it. 06/20: No acute events overnight. Afebrile. HTN to 145/70. CPAP with PEEP 10 FIO2 45, with saturation 93=94%. Pt has no acute complaints. Denies SOB/CP/ Nausea. Didn't know why he threw up during PT yesterday. Denies pain. Still having diarrhea (chronic years in duration issue). Was eating Pringles in bed. Per nursing, does not eat hospital food- waits for mother to bring him food. He was counseled to eat the hospital food which is healthier for him and that he needs to stop eating food brought in by his mother. 06/21: Remains on mechanical ventilation, CPAP with pressure support. 06/22: On mechanical ventilation on C Pap with pressure support. Denies any nausea or abdominal pain. Appears comfortable. 06/23: Resting in bed on mechanical ventilation with C Pap/pressure support +10/ +5. Denies any shortness of breath denies any abdominal pain or nausea currently. 06/24: Refusing to get OOB with physical therapy today. I had a long discussion with the patient about the fact that he has been inpatient for months now and he is severely deconditioned. He must get out of bed with PT to clinically improve, and deconditioning is a major factor in his chronic respiratory failure. He denies chest pain or SOB. does endorse some nausea today. 06/25: tolerated 4 hours OOB yesterday with 4 hours of trach collar. plan to go 6 hours today. 06/26: tolerated OOB to chair 5 hours yesterday but only 1.5hr of trach collar due to hypoxia. 06/27: tolerated OOB to chair for 6 hours yesterday and almost 5 hours of trach collar. daily, he continues to be very resistant to participating in PT and getting OOB. He again asks if he can lay in bed today. 06/28: tolerated 6 hours of trach collar yesterday. OOB for almost 8 hours. 06/29: continues to tolerate daily trach collar trials. OOB for 8 hours again yesterday. 06/30: tolerated 8 hours of trach collar yesterday. OOB for 7 hours. can do trach collar as tolerated. he continues to make attempts to refuse physical therapy and does not wish to participate in his care. 07/01: no changes. did well with 8 hours of trach collar and 8-9 hours of OOB. will attempt to stand and possibly walk in place today. this certainly is a large undertaking given how deconditioned he is, but I think the mobilization will help to continue our rehabilitation efforts. will be taxing on medical staff to physically assist him. This is likely something we can only do on a weekly basis. 07/02: took 3 steps yesterday (first time out of bed in almost 3 months). otherwise, tolerating daily t-piece with nightly CPAP. plan for OOB and steps again today. trach collar as tolerated. diamox x 3 doses for worsening contraction alkalosis. net -900cc/24h. 07/03: OOB and a few steps again yesterday. trying to push him to longer t-piece intervals with fewer rests on CPAP. OOB all day again today. net euvolemic yesterday. lab holiday today. 07/04: to chair today. trach collar as tolerated. I really think he could go most of the night if not all night on trach collar, but he keeps insisting on going back on the vent to rest. brought to my attention by family practice team for ankle skin breakdown. agree with podiatry consult. 07/05: OOB to chair again today. tolerated trach collar yesterday. CPAP at night. keeps asking to go back on rate on vent overnight. I do not think medically he needs this. podiatry saw patient and recommended dressing and elevation for foot. 07/06: on trach collar all night, not on the vent. this is a huge improvement. K 6.0 on bmp this AM, but Cr at baseline. will recheck. 07/07: remains off the vent on trach collar. weaning fio2. OOB again. recheck K yesterday 6.0--> 3.7, so likely spurious lab. I think tomorrow if he remains on trach collar, he is safe to go back to his facility. 07/08: No acute issues overnight. Plans for transfer to his facility with case management assistance. 07/09: Afebrile.The patient continues on trach collar. After readjustment in the bed early this a.m., the patient required increased O2 requirements to FiO2 of 90% which was decreased back down to 70% within an hour. No acute respiratory distress was noted. 07/10: Afebrile.No acute issues overnight. Patient continues on trach collar without any issues,O2 at 6-8 L/m. Subjective: 07/11: Noted anterior left chest, appearance of fungal skin infection, spreading despite use of 2 antifungal creams. No acute issues overnight, awaiting peer-to -peer phone conversation with LTAC facility regarding necessity secondary to oxygen usage. 07/12: continues to make slow clinical improvements. had to go back to 100% fio2 last night, but remained off mechanical ventilatory support. [id number] convo today, I do think he would wean back to baseline fio2 within 2-3 weeks, given how much he has improved over the last few weeks. 07/13: No changes. continues to improve slowly. fio2 70% during the day, 90% at night. weaning fio2 during the day today. OOB to chair for most of the day. awaiting decision by insurance company for possible LTAC. 07/14: Remains on TP, now on 98% oxygen. Chest x-ray pending. No report of increased secretions, no fever 07/15: Sitting up and stretches chair today. Breathing more comfortably. Chest x-ray yesterday showed probable worsening right lower lobe infiltrate. Repeat cultures pending. FiO2 had been weaned down to 70% 07/16: Sitting up in chair breathing comfortably. FiO2 down to 50%. Will increase daily up to chair time. No fever reported. Sputum culture from growing Proteus, started on Rocephin Objective Vital Signs Date Time Temp Pulse Resp B/P Pulse Ox O2 Delivery O2 Flow Rate FiO2 07/16/16 12:18 98.4 88 22 111/65 92 07/16/16 09:16 T-Piece 50 07/12/16 19:58 10.00 Intake and Output 07/15/16 07/15/16 07/15/16 07:59 15:59 23:59 Intake Total 240 ml 450 ml 245 ml Output Total 400 ml 700 ml 275 ml Balance -160 ml -250 ml -30 ml Result Diagram: 07/16/16 0609 07/15/16 0605 Other Results Microbiology Date/Time Procedure Status Source Growth 07/14/16 15:00 Gram Stain - Final Complete Sputum Endotracheal 07/14/16 15:00 Sputum Culture - Final Complete Proteus Mirabilis Imaging MRI 06/20/16: No official reading. Preliminary reading suggests periventricular white matter changes at basal ganglia and no evidence ischemia CXR 06/17/16: Poor penetration. Rotated image. Unable to visualize lung bases. Possible atelectasis vs infiltrate R worse than L. Objective Remarks GEN: 31yo on trach collar, awakens and follows commands. Super morbidly obese. SKIN: Warm and dry. Tinea corporis appearing lesions left anterior chest. HEAD: Normocephalic. EYES: No scleral icterus. No injection or drainage. NECK: obese with large neck circumference, trachea midline. Shiley 6.0 Proximal XLT, (new trach placed 05/02/16) CV: normal rate, regular rhythm. RESP: On mechanical ventilation, Breath sounds equal bilaterally. Distant secondary to habitus. GI: Abdomen soft, obese, non-tender, nondistended. MSK: No cyanosis, or edema. Pedal edema. Neuro: Moves all extremities with focal weakness right upper extremity. Urinary Catheter: Yes Assessment to: Continue A/P Assessment and Plan ASSESSMENT Acute hypercapnic and hypoxemic respiratory failure (Shiley 6.0 Proximal XLT) CO2 narcosis (resolved) Acute worsening of hypoxia due to lung de-recruitment (05/15/16, resolved) Worsening hypoxia 07/14/16 now following Healthcare associated pneumonia MDR Pseudomonas, now with Proteus 07/14/16 Enterococcal bacteremia Pseudomonas bacteremia Collection near right subscapularis muscle(On MRI 06/03) - hematoma status post I &D on 06/07 Sepsis CHF exacerbation Tracheostomy line pilot balloon damage -status post exchange with new Shiley 6.0 Proximal XLT 05/02/16 Probable right brachial plexus injury COPD/obesity hypoventilation syndrome Morbid Obesity BMI 60-69 History of pulmonary embolism 4 years ago Chronic atrial fibrillation Anxiety CHF (Echo 2013 EF 40-45%; ECHO 08/2015 showing a grossly normal systolic function) Hypertension Hypothyroidism Depression PLAN NEURO: CO2 narcosis - resolved Critical care polyneuropathy Right upper extremity weakness 05/21-possibly secondary to nerve compression, C6 , C7 (brachial plexus) Pain Anxiety Depression -Clinically had right brachial plexus involvement. MRI of brachial plexus on 06/03 revealed collection involving right subscapularis muscle- s/p I & D on 06/[address] Velazquez. -Neurology Dr. Cheek-MRI brain, C spine no acute findings. -Venous Doppler RUE 05/28-negative for DVT -Continued PT daily, with strengthening exercises -Continue Seroquel 100mg HS. Continue Zoloft 100mg daily -Tylenol 625mg pain 1-6, Percocet 10/325 pain 7-10 RESP: Acute hypercapnic and hypoxemic respiratory failure Acute lung derecruitment 05/15 with hypoxia Worsening hypoxia 07/14/16 probable lung de-recruitment Healthcare associated pneumonia Tracheostomy line pilot balloon damage (Shiley 6.0 Proximal XLT) s/p new trach placement 05/02 Chronic Respiratory Failure s/p Tracheostomy 4 years ago COPD/obesity hypoventilation syndrome History of pulmonary embolism 4 years ago Leukocytosis-resolved Pulmonary edema - s/p Bronchoscopy 05/11 - BAL results negative - Aggressive Pulm toilet, trach care - Keep sat >87% on T-piece, TP during daytime and daily PS/CPap t night, to avoid lung de-recruitment - Continue DuoNeb q6h REYES + q2h PRN, Pulmicort BID, Singulair 10mg daily - Continue trach collar OOB to chair, minimum 3 hours BID CV: CHF exacerbation Pulmonary edema Paroxysmal atrial fibrillation (chronic) Hyperlipidemia -Monitor HR and BP keep MAP>65mmHg -Cardizem 90mg QID, Bumex 1mg daily PO, Lipitor 10g daily, TriCor 40mg by mouth daily -continue on home Xarelto. GI: Super morbid obesity with BMI of 64 Nausea GERD -Regular diet, thin liquids per speech recs -Liver US 06/03: Fatty liver, sludge in gallbladder, splenomegaly, no mechanical obstruction of bile duct noted. -Protonix 20mg BID. Zofran prn for nausea. -Multivitamin daily -Bringing in food, per nurses. Not adherent to hospital diet. FEN/RENAL: Hypokalemia Metabolic alkalosis - Monitor renal function , I/O, electrolytes replacement per protocol. - Bumex 1mg PO daily, KCL 40meq Q12hr - Willard was discontinued. we are using a rectal bag to collect urine and keep sacral area clean. no indication for willard catheter. ID: Healthcare associated pneumonia Sepsis New fever-resolved MDRO Cellulitis right arm-resolved Leukocytosis-resolved Enterococcal faecalis bacteremia, Pseudomonas bacteremia (06/02, 06/03) -Wound culture Pseudomonas MDR 04/27 -Sputum culture-Pseudomonas MDR- 04/27 -Urine cx: Proteus Mirabilis 05/05 -Sputum cx: Providencia 05/05, rpt sputum 07/14/16 Proteus -Bronchoscopy and re-culture 05/10- NG -Wound cx: Proteus, Pseudomonas, Group D Enterococcus- 05/13 -Sputum cx- NG- 05/15 -Blood culture: aerobic and anaerobic bottles - enterococcus faecalis, pseudomonas aeruginosa 06/02, 06/03 -Urine culture: pseudomonas aeruginosa- 06/02 -Wound culture: pseudomonas aeruginosa- 06/02 -Sputum culture: Pseudomonas- 06/02 -Dr. Velazquez performed drainage of collection surgically on 06/07- likely hematoma -Stopped IV Vanc and Zerbaxa on 06/18. (MDR pseudomonas in blood cultures) -Colistin nebs stopped 06/27 -Start Rocephin for Proteus in sputum 07/16/16 HEME: History of PE on chronic anticoagulation with Xarelto Iron deficiency anemia and anemia of critical illness. -Monitor CBC, transfused 1U PRBC 06/13 -Xarelto for PE 4 yrs ago. Continue Xarelto. -Ferrous sulfate 300 mg/q day ENDO: Hypothyroidism -On SSI (Low scale) -Continue levothyroxine 50 mcg po daily -Free T4 1.52 MSK: --agree with podiatry consult. -Continue physical therapy PROPH: -Lower extremity SCDs (L leg only, R ankle cellulitis), continue home xarelto GI prophylaxis- Protonix 20mg BID LINES: - PICC line RUE- No DVT on US 05/02 - removed on 06/03. PIV 's x 2 - Willard catheter removed 07/05. we are using rectal bag to collect urine in an effort to keep sacral and groin area clean and free of skin breakdown. Out of bed with assistance. Dispo: Scheduled to transfer snf facility, case management facilitation. Awaiting decision for LTAC. Until then, he remains in the ICU. Dispo: Level 3 Jaquan Zelaya MD Jul 16, 2016 14:31
[2016-07-16] MEDS: cefTRIAXone INJ 2,000 MG in SODIUM CHLORIDE 0.9% INJ 100 ML IV SCH (15:00)
[2016-07-16] MEDS: QUEtiapine FUMARATE 100 MG TAB PO SCH (20:09)
[2016-07-17] VITALS (10 sets, daily range): BP systolic 99–107; BP diastolic 57–61; PULSE 84–88; RESP 21–22; TEMP 97.9–98.4; O2SAT 92–97
[2016-07-17] MEDS: POTASSIUM CHLORIDE 20 MEQ CONTROLLED RELEASE TAB PO SCH ×3 (00:08→20:36)
[2016-07-17] MEDS ORDERED: ATROPINE SULFATE 1 MG/10 ML SYRINGE IV ONE (05:00)
[2016-07-17] MEDS: INSULIN NovoLIN REGULAR SUPPLEMENTAL SCALE SQ SCH (06:00)
[2016-07-17] MEDS: LEVOTHYROXINE SODIUM 50 MCG TAB PO SCH (06:23)
[2016-07-17] MEDS: CHLORHEXIDINE 0.12% (ORAL KIT) 15 ML CUP MT SCH ×2 (07:44→19:48)
[2016-07-17] MEDS: SODIUM CHLORIDE 0.9% FLUSH 5 ML FLUSH IVF SCH ×2 (07:46→19:49)
[2016-07-17] MEDS: FERROUS SULFATE 325 MG (65 MG ELEMENTAL IRON) TAB PO SCH (07:47)
[2016-07-17] MEDS: DILTIAZEM HCL 90 MG TAB PO SCH (07:47)
[2016-07-17] MEDS: ALLOPURINOL 300 MG TAB PO SCH (07:48)
[2016-07-17] MEDS: MONTELUKAST SODIUM 10 MG TAB PO SCH (07:48)
[2016-07-17] MEDS: MULTIVITAMIN TAB PO SCH (07:48)
[2016-07-17] MEDS: PANTOPRAZOLE SOD 20 MG DELAYED RELEASE TAB PO SCH ×2 (07:48→19:50)
[2016-07-17] MEDS: RIVAROXABAN 20 MG TAB PO SCH (07:50)
[2016-07-17] MEDS: ATORVASTATIN 10 MG TAB PO SCH (07:50)
[2016-07-17] MEDS: SERTRALINE HCL 100 MG TAB PO SCH (07:50)
[2016-07-17] MEDS: FENOFIBRATE 48 MG TAB PO SCH (07:50)
[2016-07-17] MEDS: BUMETANIDE 1 MG TAB PO SCH (07:50)
[2016-07-17] MEDS: NYSTATIN 100,000 U/GM PWD 15 GM BTL TOPICAL SCH ×2 (07:51→19:49)
[2016-07-17] MEDS: COLLAGENASE OINT 30 GM TUBE TOP SCH (07:51)
[2016-07-17] MEDS: MICONAZOLE NITRATE 2% CREAM 15 GM TOP SCH ×2 (07:52→19:49)
--- NOTE | 2016-07-17 08:50 | HHI.FPPN ---
Subjective Remarks Overnight, TREVA. AFVSS. Has regressed from pulmonary standpoint to using CPAP during night (PEEP 7, FI02 40-50), T-piece during the day. Good saturations 88- 92% This AM, was on T-piece, OOB in chair, leaning heavily on R side. Good I/O. Net out ~300mL past several days. Continue to monitor. C/o mild chest tightness and intermittent cough. Denies changes in sputum production- able to suction clear sputum from trach. Denies f/c, n/v, palpitations. Continued mild stomach pain. Objective Vitals Vital Signs Date Time Temp Pulse Resp B/P Pulse Ox O2 Delivery O2 Flow Rate FiO2 07/17/16 04:00 98.4 88 22 107/61 92 07/17/16 03:54 94 50 07/17/16 00:03 92 40 07/17/16 00:00 97.9 88 21 107/59 92 07/16/16 20:53 88 40 07/16/16 20:00 98.3 100 20 125/70 93 07/16/16 20:00 93 T-Piece 10.00 70 07/16/16 19:45 94 T-piece 70 07/16/16 16:00 98.3 85 22 109/55 94 07/16/16 12:18 98.4 88 22 111/65 92 07/16/16 09:17 89 07/16/16 09:16 91 T-Piece 50 I/O 07/16/16 07/16/16 07/16/16 07/17/16 07/17/16 07/17/16 07:00 15:00 23:00 07:00 15:00 23:00 Intake Total 300 ml 451 ml 105 ml 205 ml Output Total 350 ml 450 ml 650 ml Balance -50 ml 1 ml -545 ml 205 ml Intake Oral 300 ml 450 ml 100 ml 200 ml IV Total 0 ml 1 ml 5 ml 5 ml Output Urine Total 350 ml 450 ml 650 ml # Voids 2 # Bowel Movements 1 2 0 1 Result Diagram: 07/16/16 0607/15/16 06 Imaging See A/P for pertinent positives Objective Remarks CONST: Morbidly obese male, NAD. DERM: Erythematous fungal rash on bilateral arms, forearms, deltoids, upper torso, continues to improve. Well-healing scar R shoulder R lat malleolus with 1.5 x 1.5 cm skin break down. Area in bandage- c/d/i. Numerous skin folds 2/2 habitus. Dry, flaking skin on feet. Bruising on abdomen HEENT: Tracheotomy site c/d/i. Poor dentition. MMM CV: Distant heart sounds. RRR. RESP: Anterior exam: end expiratory wheezing. Breathing comfortably on T piece GI: NDNT. MSK: External rotation of RLE and LLE NEURO: CN grossly normal. PSYCH: Appears resigned/moderately apathetic. Begrudgingly complies with care requests. Poor insight. Procedures 04/24- Started ventilation 05/02- Emergency Trach Exchange 06/03- PICC line removed 06/07- Debridement of RUE abscess (Dr. Velazquez), RUE drain placed. 06/10- RUE drain removal 07/05- Removed from ventilation, continuous T-piece, remained off ventilation since A/P Assessment and Plan 31yo male with morbid obesity (BMI 68 on admit) admitted 04/24/16 for acute on chronic respiratory failure. Discharge Planning Pending placement. Have been attempting to place since 07/08/15. Off mechanical ventilation since 07/05/15. On T-piece using 8-10L. Case management working on placement. 07/17- Touched base w case management- called yesterday, called this AM, waiting to hear back from [facility]. Dr. Brown did peer to peer with [facility] for placement at [facility] (refused to cover cost of admission, SNF not in their approved list) Dr. Morgan, , called insurance 07/10/12- did not get a response. Denied placement to [facility]. Denied placement [facility] (can accommodate up to 6L oxygen, pt using 8L) DW: Dr. Watts, Dr. Mccain Problem List: (1) PLAN Status: Chronic Plan: NEURO/PSYCH CO2 narcosis -Resolved with oxygen supplementation Polyneuropathy of Critical illness -Continue PT, discharge to SNF RUE weakness/pain & Cervical neuropathy -Did not tolerate EMG of RUE. MRI of RUE and C-spine WNL. -Continue PT/OT, Frequent rotations, OOB to chair -Ibuprofen 600mg q6h pain Anxiety/MDD -Initially refusing meals, bathing. Improved. However, continued reluctance to participate in PT/OT. Many somatic complaints (RUBY, nausea, nonspecific pain, etc) -Seroquel 100mg HS -Zoloft 200mg daily Insomnia- -Zolpidem 5mg HS Disordered eating - At SNF, hx of hiding food in body folds. Did not adhere to dietary restraint while in hospital- family repeatedly brought in food: pizza, pringles , etc. Poor insight. 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 s/ p new trach placement 05/02. Clinical course complicated by HCAP and bacteremia. s/p Bronchoscopy 05/11 - BAL results negative . Resolved, weaned from ventilator and CPAP, off ventilator since 07/05/15. Treated with bronchodilators and weaning from vent. -Resolved Chronic Respiratory Failure s/p Tracheostomy (2011) -Aggressive pulmonary toliet, trach care, oxygen supplementation, as needed for O2 saturation 92%+ Healthcare associated pneumonia -Resolved, see ID Pickwickian Syndrome -Oxygen support PRN for saturation 92%+, wean as tolerated History of pulmonary embolism 2011 -Continue home Xarelto Pulmonary edema -diuresis PRN (see CHF) CV: CHF: -Suspected HF with poor EF, though unable to confirm via ECHO (04/25) due to poor imaging. BNP elevated on admission, downtrended. -Monitor HR and BP keep MAP>65mmHg -Bumex 1mg daily PO Paroxysmal atrial fibrillation (history of, currently SNR) -Cardiazem 90mg QID -Xarelto GI/LIVER Super morbid obesity with BMI 60-69 (on admission), 50-59 (current) -Wt 480 lbs on admission (04/25/16). Wt 414 lbs on discharge (07/12/15) -Diet per nutrition recommendations- regular, thin liquids, 2000 calorie heart healthy diet (1.5L fluids, 2g sodium, no caffeine), no outside food Nausea- GERD vs gastroparesis vs psychosomatic. Chronic- waxing and waning. -Zofran ODT q4h PRN -Protonix 20mg BID Hyperlipidemia -Lipitor 10g daily -TriCor 40mg by mouth daily Episodes of food refusal -Adhere to hospital diet Splenomegaly -Incidental finding. Continue to monitor Fatty Liver Disease: per Liver US 06/03/16 -Lose weight to healthy weight BMI <25 Diarrhea -Chronic. Present prior to admission. C. difficile testing negative. Ddx: poor diet vs medication side effect. -Adhere to hospital diet, no outside food, continue to monitor FEN/RENAL: Chronic Hypokalemia: KCL 40 meq BID replacement REYES +ICU electrolyte replacement protocol PRN Metabolic alkalosis - Monitor renal function, I/O, electrolytes replacement per protocol. Urinary incontinence: Unable to use bedside commode secondary to body habitus. -Rectal bag to collect urine and keep sacral area clean. No indication for willard catheter. Hypomagnesemia -Replete per ICU protocol ID/DERM Infectious disease consulted PNA 07/16/16 -Continue Rocephin (07/16- ). Sputum culture (07/14) with proteus. CXR (07/16) : No change from previous. Fungal dermatitis: Approx two weeks old. Initially under where trach tube ran/area of increased moisture then spread from L shoulder to L shoulder/bilateral arms/upper torso. Improving with: -Diflucan 200mg daily (07/11- 07/16)- six days total -Wound culture ordered, follow culture -Continue nystatin powder -Continue miconazole creme Resolved (see below) Bacteremia- Enterococcal faecalis bacteremia, Pseudomonas bacteremia (06/02, 06/03) HCAP, Sepsis, Fever, Yeast UTI, Hx MDRO, Cellulitis R arm, Leukocytosis Cultures -Blood culture: aerobic and anaerobic bottles - enterococcus faecalis, pseudomonas aeruginosa 06/02, 06/03 -Urine culture: pseudomonas aeruginosa- 06/02 -Wound culture: pseudomonas aeruginosa- 06/02 -Sputum culture: Pseudomonas- 06/02 -Sputum cx- NG- 05/15 -Wound cx: Proteus, Pseudomonas, Group D Enterococcus- 05/13 -Bronchoscopy and re-culture 05/10- NG -Wound culture Pseudomonas MDR 04/27 -Sputum culture-Pseudomonas MDR- 04/27 -Urine cx: Proteus Mirabilis 05/05 -Sputum cx: Providencia 05/05 Abx History Zosyn 4.5gm IV q6h (04/24 - 04/29) Levaquin 750mg IV q24h (04/24-04/30) Zerbaxa 1.5 g IV q8h (04/29 - 05/07) Vancomycin IV (04/24 - 05/06) Ceftriaxone IV (05/07 - 05/25) Linezolid 600 mg PO BID (05/06 - 05/13) Zosyn 3.375 q6h (06/04- 06/05) Vancomycin IV daily goal trough 15-20, (06/03 -06/18) Zerbaxa IV q8h (06/05-06/18) HEME: History of PE (2011)- chronic anticoagulation with Xarelto -Xarelto Normocytic Anemia- iron deficiency vs anemia of critical illness -Ferrous sulfate 325mg PO daily ENDO: Hypothyroidism- 05/27/16- TSH low, free T4 grossly wnl - Synthroid 50 mcg PO daily Hyperglycemia of Critical care -On SSI (Low scale) MSK General surgery, podiatry, orthopedics, neurologic, rehab medicine consulted RUE Weakness: secondary to hematoma vs C6/C7 neuropathy. L hemispheric pathology and seizure r/o via imaging. Unable to tolerate EMG. Venous Doppler RUE 05/28 negative for DVT. Improving -Aggressive PT: RUE strength training -Ibuprofen 600mg q6h PRN pain control Deconditioned -RLE strengthening internal rotation -OOB to chair -Aggressive OT: feed self Hematoma: S/p I&D by Dr. Velazquez (06/07/16). Small hematoma found during procedure inconsistent with 6cm x 6cm x 8cm abscess per MRI brachial plexus. -Resolved. Consider re-imaging in future if pain or RUE weakness worsens R ankle decubitus ulcer: present on admission, worsened during hospital stay from prolonged immobilization. Wound Cx (07/05): Providencia stuartii. Podiatry, Wound Care consulted. -Daily dressing changes with xeroform, primapore, optifoam dressings Decubitus ulcer -Offload pressure Gout -Allopurinol 300mg daily Hematoma -Resolved s/p I&D, re-image if RUE weakness/pain worsens Imaging: - US negative for DVT (05/28) - MRI brain (04/28) no acute intracranial process - MRI C-spine (05/29): grossly wnl - EEG (05/29): diffuse mild encephalopathy vs normal Stage 2 sleep - MRI brachial plexus (06/03): "Complex multiloculated soft tissue and cystic mass 5.5 x 6 x 7.8 cm involving subscapularis muscle along anterior R scapula - Pathology report (06/07): fragments of blood clot admixed with few minute fragments of adipose and skeletal muscle tissue (2) Acute on chronic respiratory failure with hypoxia and hypercapnia Status: Resolved (3) Fungal infection Status: Acute (4) Nausea Status: Chronic (5) Hematoma Status: Acute (6) CHF (congestive heart failure) Status: Chronic (7) Yeast UTI Status: Resolved (8) Moderate protein malnutrition Status: Chronic (9) Pressure ulcer of right leg, stage 2 Status: Chronic (10) Paroxysmal a-fib Status: Chronic (11) MDD (major depressive disorder) Status: Chronic (12) History of DVT (deep vein thrombosis) Status: Chronic (13) Hypothyroidism Status: Chronic (14) On mechanically assisted ventilation Status: Chronic (15) Normocytic anemia Status: Chronic (16) Gout Status: Chronic Plan: see plan above (17) Hyperlipidemia Status: Chronic Plan: see plan above (18) Pneumonia Status: Acute (19) Hypomagnesemia Status: Resolved (20) Chronic respiratory failure Status: Chronic (21) Hypokalemia Status: Chronic (22) Diarrhea Status: Chronic (23) Morbid obesity with BMI of 50.0-59.9, adult Status: Chronic (24) Pickwickian syndrome Status: Chronic (25) Sacral decubitus ulcer Status: Chronic (26) Urinary incontinence due to immobility Status: Chronic (27) NAFLD (nonalcoholic fatty liver disease) Status: Chronic (28) Splenomegaly Status: Chronic (29) Somatic complaints, multiple Status: Chronic (30) Pulmonary edema Status: Chronic (31) History of pulmonary embolus (PE) Status: Chronic (32) CO2 narcosis Status: Resolved (33) Polyneuropathy associated with critical illness Status: Chronic (34) Weakness of right upper extremity Status: Chronic (35) Cervical plexus neuropathy Status: Chronic (36) Anxiety Status: Chronic (37) Insomnia Status: Chronic (38) Disordered eating Status: Chronic (39) Tracheostomy present Status: Chronic (40) HTN (hypertension) Status: Chronic (41) HCAP (healthcare-associated pneumonia) Status: Resolved (42) Cellulitis of chest wall Status: Resolved (43) Stress hyperglycemia Status: Resolved (44) Bacteremia Status: Resolved Problem Qualifiers (1) CHF (congestive heart failure): Qualified Code: I50.9 - Acute on chronic congestive heart failure, unspecified congestive heart failure type (2) MDD (major depressive disorder): Qualified Code: F33.2 - Severe episode of recurrent major depressive disorder, without psychotic features (3) Hypothyroidism: Qualified Code: E03.9 - Hypothyroidism, unspecified type (4) Chronic respiratory failure: Qualified Code: J96.10 - Chronic respiratory failure, unspecified whether with hypoxia or hypercapnia (5) Insomnia: Qualified Code: F51.04 - Psychophysiological insomnia (6) HTN (hypertension): Qualified Code: I10 - Essential hypertension Holley Baires MD R1 Jul 17, 2016 08:50
[2016-07-17] MEDS ORDERED: PROPOFOL 1000 MG/100 ML INJ 100 ML ONE ×3 (09:31→15:59)
[2016-07-17] MEDS ORDERED: TERBUTALINE INJ 1 MG/ML AMP SQ PRN (09:45)
[2016-07-17] MEDS: RESP: BUDESONIDE 0.5 MG/2 ML NEB NEB SCH ×2 (09:50→20:06)
--- NOTE | 2016-07-17 09:55 | HHI.CCPN ---
Subjective Remarks/Hospital Course 31 year old morbidly obese (BMI 68) male with chronic respiratory failure s/p tracheostomy 4 years ago, atrial fibrillation and pulmonary embolism on Xarelto , COPD, CHF and h/o HTN. He presented from [facility] with low oxygen saturation apparently his oxygen saturation was 82% on RA. He was placed back on 6L of oxygen via his trach mask and given a breathing treatment, initially improved however he started drifting back to low 80s again. Chest x-ray showed bibasilar infiltrates and pulmonary edema. Patient was admitted to the [facility] service and was started on IV steroids IV vancomycin and Zosyn and Levaquin for healthcare associated pneumonia. After starting ACV, patient was more awake but there was a significant amount of air leak around his tracheostomy. Patient has had a Shiley 6.0 Proximal XLT, but the boat pilot balloon had been cut off. 05/02 the patient became acutely hypoxemic with a large cuff leak, underwent emergency trach exchange at bedside by Dr. Macias. FiO2 65% PEEP 14 05/13 Patient is on ventilator via trach, on Fentanyl infusion however he is awake and alert. On PRVC with FIO2 40%. Afebrile. 05/14 No acute events overnight. Tmax 99.8. Patient is awake, alert on ventilator via trach still requiring increase O2. On PRVC with PEEP: 10 and FIO2 70%. 05/15 Pt acutely desaturated after he was found. Saturation down to 70% on 100 % oxygen. Bag and mask ventilation carried out, with eventual improvement on oxygen saturation to 85%. Patient was placed on PC/AC mode of ventilation, with PEEP of 15 and instructed to pressure of 30. Eventually oxygen saturation improved to 95%. Lasix him today as the chest x-ray from today shows increasing bilateral infiltrate and pulmonary edema. Sputum culture will be sent 05/16 Patient is on Fentanyl and Diprivan infusion but awake and alert. Afebrile. On PC/AC with PEEP:15, IP: 22, IT:1.3 and FIO2 50% 05/17 Patient is off Diprivan and remains on Fentanyl infusion for sedation. On PC/AC with PEEP: down 10 and FIO2 40%. Afebrile. 05/18 Patient remains on ventilator via trach on PC/AC with PEEP:12, FIO2 40%, IP:22, IT:1.0. On Fentanyl infusion 05/19 No acute events overnight. On Fentanyl infusion but awake and alert. Afebrile. 05/20 Tolerating C Pap 17/12 FIO2 40, sats 98%. RSBI in 20s, appears can be weaned further. Afebrile. Speech therapy evaluated and ok for regular diet. Starting with full liquid. 05/21 Will wean PSV to 15/10. Tolerated full liquids, will advance to regular diet per speech recs. 05/22 On PSV 15/10 FIO2 40 with sats 92%. Smiling today. Glad to be eating regular food again. 05/23 No acute events overnight. Remains on CPAP with PS 15, PEEP:10 and FIO2 40 %. Afebrile. Off Fentanyl drip. Afebrile. Awake and alert. 05/24 Patient is on CPAP 06/06 with 40% FIO2. Afebrile. Awake and alert, on no sedation. 05/25 No acute events overnight. Patient was placed back on PC/AC overnight. Tolerated CPAP trials during day yesterday. Awake and alert. On no drips. Afebrile. 05/26 Afebrile. Tmax 98.6. Today the patient complained of nausea requiring Zofran. The patient has a lack of an appetite, with noted hypoglycemia early this a.m. blood glucose level 69. Patient tolerating CPAP well greater than 12 hours in the last 24 hours. 05/27 The patient tolerated CPAP for over 36 hours, O2 sat a knee 94% on FIO2 40 %. The patient had an increase in appetite. The patient continues on full liquid diet. 05/28 The patient declined physical therapy treatment, yesterday and also overnight declined to be moved by nursing staff. The patient refused dinner last evening, of note patient was reevaluated by speech therapy and can consume a heart healthy diet with thin liquids. The patient continues on physical therapy for strengthening exercises of all extremities specifically noted right upper extremity continues to be weak with gross fibrillations noted in hand and forearm. 05/29 Afebrile. No change in right upper extremity weakness. The patient was seen by neurology yesterday plan for MRI today if possible in hospital MRI, and EMG studies. No complaints overnight. Patient continues to refuse to have activities performed, movement in bed. The patient appears to be depressed, psychiatry consulted. 05/30: Patient alert awake on CPAP. Following commands. Psych agrees the patient is depressed. MRI brain no acute findings 05/31: Awake alert. on PS 15/8. EMG could not be completed due to patient becoming anxious. Otherwise no acute events reported overnight 06/01: Remains PS from 11/02. Right upper extremity weakness persists. EMG to be repeated on Friday. Will need MRI of the brachial plexus. Chest x-ray is unchanged 06/02: States that "not feeling well". Febrile to 101.5. White count increasing but still within the normal range. Pancultured. We'll request ID reevaluation. 06/03: Resting in bed on C Pap/pressure support via tracheostomy. One out of 2 sets of blood cultures sent on 06/02 positive for gram-positive cocci. 06/04: Resting in bed on mechanical ventilation via tracheostomy. Afebrile overnight. MRI brachial plexus (06/03) revealed a collection near the right subscapularis muscle, possibly an abscess. Discussed with ID, orthopedics Dr. Velazquez consulted. I discussed the case with Dr. Velazquez this morning who feels this is probably an abscess however would be difficult to access surgically and he plans to set up percutaneous drainage by interventional radiology. 06/05: Resting in bed on mechanical ventilation via tracheostomy. Remains afebrile. Reportedly IR cannot do percutaneous drainage of collection involving right subscapularis muscle. 06/06: Resting in bed on mechanical ventilation via tracheostomy. Can actually speak around the trach. Remains afebrile. Dr. Velazquez evaluated patient and is scheduling surgery for drainage of fluid collection involving the right subscapularis muscle. 06/07: Resting in bed on mechanical ventilation via tracheostomy. Awaiting surgery today. 06/08: Status post I&D of collection near right shoulder/subscapularis on 06/[address] Velazquez. This morning patient is awake and alert complained of some pain at the surgical site. Remains on mechanical ventilation on C Pap/pressure support. 06/09: Sleeping, arousable. On mechanical ventilation with C Pap/pressure support overnight. Labs pending 06/10 No acute events overnight. On CPAP with PS 12, PEEP: 8, FIO2 40%. Afebrile. 06/11 Patient remains on CPAP with PS 10, PEEP: 8 and FIO2 40%. Afebrile. 06/12: No acute events overnight. Remains on CPAP 10/5. No specific complaints 06/13: Tolerating C Pap 10 over 5. Awake and alert following commands. Hemoglobin dropped from 8.6-7.1, no obvious bleeding. Sodium 140-149. Will give 1 unit of PRBC with 1 mg IV Bumex 06/14 No acute events overnight. On CPAP with PS 10, PEEP:5 and FIO2 50%. Afebrile. 06/15 No acute events overnight. Remains on CPAP 10/5 with 40% FIO2. Afebrile. 06/16 Patient remains on ventilator via trach on CPAP with PS 10, PEEP:5 and FIO2 40%. 06/17: Resting in bed on mechanical ventilation via tracheostomy. Feeling nauseous. 06/18: OOB in reclining chair. Reporting low back and leg pain that is positional. Continued nausea, denies emesis. CPAP w PS 5 FIO2 40%. Will attempt Tpiece trial today. Discontinue Vanc + Zerbaxa today per ID 06/19: No acute events overnight. Afebrile. HTN to 160/80. CPAP with PS 10. PEEP 10 FIO2 45. Failed Tpiece trial yesterday- desaturated to mid 70s. Denies SOB/CP. Nausea is less than before. Bed is broken and patient would like the mattress to "rotate". Per nursing, they are working to fix it. 06/20: No acute events overnight. Afebrile. HTN to 145/70. CPAP with PEEP 10 FIO2 45, with saturation 93=94%. Pt has no acute complaints. Denies SOB/CP/ Nausea. Didn't know why he threw up during PT yesterday. Denies pain. Still having diarrhea (chronic years in duration issue). Was eating Pringles in bed. Per nursing, does not eat hospital food- waits for mother to bring him food. He was counseled to eat the hospital food which is healthier for him and that he needs to stop eating food brought in by his mother. 06/21: Remains on mechanical ventilation, CPAP with pressure support. 06/22: On mechanical ventilation on C Pap with pressure support. Denies any nausea or abdominal pain. Appears comfortable. 06/23: Resting in bed on mechanical ventilation with C Pap/pressure support +10/ +5. Denies any shortness of breath denies any abdominal pain or nausea currently. 06/24: Refusing to get OOB with physical therapy today. I had a long discussion with the patient about the fact that he has been inpatient for months now and he is severely deconditioned. He must get out of bed with PT to clinically improve, and deconditioning is a major factor in his chronic respiratory failure. He denies chest pain or SOB. does endorse some nausea today. 06/25: tolerated 4 hours OOB yesterday with 4 hours of trach collar. plan to go 6 hours today. 06/26: tolerated OOB to chair 5 hours yesterday but only 1.5hr of trach collar due to hypoxia. 06/27: tolerated OOB to chair for 6 hours yesterday and almost 5 hours of trach collar. daily, he continues to be very resistant to participating in PT and getting OOB. He again asks if he can lay in bed today. 06/28: tolerated 6 hours of trach collar yesterday. OOB for almost 8 hours. 06/29: continues to tolerate daily trach collar trials. OOB for 8 hours again yesterday. 06/30: tolerated 8 hours of trach collar yesterday. OOB for 7 hours. can do trach collar as tolerated. he continues to make attempts to refuse physical therapy and does not wish to participate in his care. 07/01: no changes. did well with 8 hours of trach collar and 8-9 hours of OOB. will attempt to stand and possibly walk in place today. this certainly is a large undertaking given how deconditioned he is, but I think the mobilization will help to continue our rehabilitation efforts. will be taxing on medical staff to physically assist him. This is likely something we can only do on a weekly basis. 07/02: took 3 steps yesterday (first time out of bed in almost 3 months). otherwise, tolerating daily t-piece with nightly CPAP. plan for OOB and steps again today. trach collar as tolerated. diamox x 3 doses for worsening contraction alkalosis. net -900cc/24h. 07/03: OOB and a few steps again yesterday. trying to push him to longer t-piece intervals with fewer rests on CPAP. OOB all day again today. net euvolemic yesterday. lab holiday today. 07/04: to chair today. trach collar as tolerated. I really think he could go most of the night if not all night on trach collar, but he keeps insisting on going back on the vent to rest. brought to my attention by family practice team for ankle skin breakdown. agree with podiatry consult. 07/05: OOB to chair again today. tolerated trach collar yesterday. CPAP at night. keeps asking to go back on rate on vent overnight. I do not think medically he needs this. podiatry saw patient and recommended dressing and elevation for foot. 07/06: on trach collar all night, not on the vent. this is a huge improvement. K 6.0 on bmp this AM, but Cr at baseline. will recheck. 07/07: remains off the vent on trach collar. weaning fio2. OOB again. recheck K yesterday 6.0--> 3.7, so likely spurious lab. I think tomorrow if he remains on trach collar, he is safe to go back to his facility. 07/08: No acute issues overnight. Plans for transfer to his facility with case management assistance. 07/09: Afebrile.The patient continues on trach collar. After readjustment in the bed early this a.m., the patient required increased O2 requirements to FiO2 of 90% which was decreased back down to 70% within an hour. No acute respiratory distress was noted. 07/10: Afebrile.No acute issues overnight. Patient continues on trach collar without any issues,O2 at 6-8 L/m. 07/11: Noted anterior left chest, appearance of fungal skin infection, spreading despite use of 2 antifungal creams. No acute issues overnight, awaiting peer-to -peer phone conversation with LTAC facility regarding necessity secondary to oxygen usage. 07/12: continues to make slow clinical improvements. had to go back to 100% fio2 last night, but remained off mechanical ventilatory support. [id number] convo today, I do think he would wean back to baseline fio2 within 2-3 weeks, given how much he has improved over the last few weeks. 07/13: No changes. continues to improve slowly. fio2 70% during the day, 90% at night. weaning fio2 during the day today. OOB to chair for most of the day. awaiting decision by insurance company for possible LTAC. 07/14: Remains on TP, now on 98% oxygen. Chest x-ray pending. No report of increased secretions, no fever 07/15: Sitting up and stretches chair today. Breathing more comfortably. Chest x-ray yesterday showed probable worsening right lower lobe infiltrate. Repeat cultures pending. FiO2 had been weaned down to 70% 07/16: Sitting up in chair breathing comfortably. FiO2 down to 50%. Will increase daily up to chair time. No fever reported. Sputum culture from growing Proteus, started on Rocephin SUBJECTIVE 07/17: Patient was sitting up in chair eating break fast, Suddenly pointed to the trach and lost consciousness, HR dropped to 28, oxygen saturation was unremarkable. Tracheostomy cuff was up-not deflated. Unclear whether he aspirated. Place back on full mechanical ventilation with 100% FiO2 16 of PEEP, saturation eventually recorded at 72%, gradually improved to 86. Patient remains unconscious, propofol started for ventilator synchrony. ABG showed pH 7.3 PCO2 of 73 PO2 53 and saturation 83%. Chest x-rays pending at this time Objective Vital Signs Date Time Temp Pulse Resp B/P Pulse Ox O2 Delivery O2 Flow Rate FiO2 07/17/16 04:00 98.4 88 22 107/61 92 07/17/16 03:54 50 07/16/16 20:00 T-Piece 10.00 Intake and Output 07/16/16 07/16/16 07/17/16 08:00 16:00 00:00 Intake Total 300 ml 451 ml 105 ml Output Total 350 ml 450 ml 650 ml Balance -50 ml 1 ml -545 ml Result Diagram: 07/16/16 0609 07/15/16 06 Other Results Microbiology Date/Time Procedure Status Source Growth 07/14/16 15:00 Gram Stain - Final Complete Sputum Endotracheal 07/14/16 15:00 Sputum Culture - Final Complete Proteus Mirabilis Imaging MRI 06/20/16: No official reading. Preliminary reading suggests periventricular white matter changes at basal ganglia and no evidence ischemia CXR 06/17/16: Poor penetration. Rotated image. Unable to visualize lung bases. Possible atelectasis vs infiltrate R worse than L. Objective Remarks GEN: 31yo on PCV mode of ventilation, cyanotic, unconscious SKIN: Warm and dry. Tinea corporis appearing lesions left anterior chest. HEAD: Normocephalic. EYES: No scleral icterus. No injection or drainage. NECK: obese with large neck circumference, trachea midline. Shiley 6.0 Proximal XLT, (new trach placed 05/02/16) CV: normal rate, regular rhythm. RESP: On mechanical ventilation PCV, Breath sounds diminished significantly bilaterally. GI: Abdomen soft, obese, non-tender, nondistended. MSK: No cyanosis, or edema. Pedal edema. Neuro: Unconscious on the vent. No response to painful stimuli. A/P Assessment and Plan ASSESSMENT Acute hypoxemia, respiratory failure Bradycardia Probable mucus plugging vs aspiration Acute and chronic hypercapnic and hypoxemic respiratory failure (Shiley 6.0 Proximal XLT) CO2 narcosis Healthcare associated pneumonia MDR Pseudomonas, now with Proteus 07/14/16 Enterococcal bacteremia Pseudomonas bacteremia Collection near right subscapularis muscle(On MRI 06/03) - hematoma status post I &D on 06/07 Sepsis CHF exacerbation Tracheostomy boat pilot balloon damage -status post exchange with new Shiley 6.0 Proximal XLT 05/02/16 Probable right brachial plexus injury COPD/obesity hypoventilation syndrome Morbid Obesity BMI 60-69 History of pulmonary embolism 4 years ago Chronic atrial fibrillation Anxiety CHF (Echo 2013 EF 40-45%; ECHO 08/2015 showing a grossly normal systolic function) Hypertension Hypothyroidism Depression PLAN NEURO: CO2 narcosis Acute encephalopathy ? hypoxia and hypercapnia induced (07/17/16) Critical care polyneuropathy Right upper extremity weakness 05/21-possibly secondary to nerve compression, C6 , C7 (brachial plexus) Pain Anxiety Depression -Place on propofol for ventilator synchrony given severe hypoxemia -Start sedation vacation in 24 hours based on clinical improvement -Clinically had right brachial plexus involvement. MRI of brachial plexus on 06/03 revealed collection involving right subscapularis muscle- s/p I & D on 06/[address] Velazquez. -Neurology Dr. Cheek-MRI brain, C spine no acute findings. -Continued PT daily, with strengthening exercises -Continue Seroquel 100mg HS. Continue Zoloft 100mg daily -Tylenol 625mg pain 1-6, Percocet 10/325 pain 7-10 RESP: Acute on chronic hypercapnic and hypoxemic respiratory failure, acute exacerbation today 07/17/16 Acute lung derecruitment 05/15 with hypoxia Worsening hypoxia 07/14/16 probable lung de-recruitment Healthcare associated pneumonia Tracheostomy boat pilot balloon damage (Shiley 6.0 Proximal XLT) s/p new trach placement 05/02 Chronic Respiratory Failure s/p Tracheostomy 4 years ago COPD/obesity hypoventilation syndrome History of pulmonary embolism 4 years ago Leukocytosis-resolved Pulmonary edema - Acutely developed hypoxemia severe desaturation and bradycardia 07/17/16 while eating breakfast (cuff was inflated). Questionable aspiration versus mucous plugging of the trachea [facility] 18 insp pres 30. PEEP 16 FiO2 100% - Unlikely to be PE as patient is on Xarelto - CXR pending at this time - s/p Bronchoscopy 05/11 - BAL results negative - Aggressive Pulm toilet, trach care - Keep sat >88%. Continue DuoNeb q6h REYES + q2h PRN, Pulmicort BID, Singulair 10mg daily CV: CHF exacerbation Pulmonary edema Paroxysmal atrial fibrillation (chronic) Hyperlipidemia -Tranient bradycardia secondary to hypoxia -Cardizem 90mg QID-hold for at least 24 hrs, Bumex 1mg daily PO, Lipitor 10g daily, TriCor 40mg by mouth daily -Continue on home Xarelto. -Levophed to keep map above 65 GI: Super morbid obesity with BMI of 64 Nausea GERD -NPO -Liver US 06/03: Fatty liver, sludge in gallbladder, splenomegaly, no mechanical obstruction of bile duct noted. -Protonix 20mg BID. Zofran prn for nausea. -Multivitamin daily FEN/RENAL: Hypokalemia Metabolic alkalosis - Monitor renal function , I/O, electrolytes replacement per protocol. - Bumex 1mg PO daily, KCL 40meq Q12hr - Willard was discontinued. using rectal bag to collect urine and keep sacral area clean. no indication for willard catheter. ID: Healthcare associated pneumonia Sepsis New fever-resolved MDRO Cellulitis right arm-resolved Leukocytosis-resolved Enterococcal faecalis bacteremia, Pseudomonas bacteremia (06/02, 06/03) -Wound culture Pseudomonas MDR 04/27 -Sputum culture-Pseudomonas MDR- 04/27 -Urine cx: Proteus Mirabilis 05/05 -Sputum cx: Providencia 05/05, rpt sputum 07/14/16 Proteus -Bronchoscopy and re-culture 05/10- NG -Wound cx: Proteus, Pseudomonas, Group D Enterococcus- 05/13 -Sputum cx- NG- 05/15 -Blood culture: aerobic and anaerobic bottles - enterococcus faecalis, pseudomonas aeruginosa 06/02, 06/03 -Urine culture: pseudomonas aeruginosa- 06/02 -Wound culture: pseudomonas aeruginosa- 06/02 -Sputum culture: Pseudomonas- 06/02 -Dr. Velazquez performed drainage of collection surgically on 06/07- likely hematoma -Stopped IV Vanc and Zerbaxa on 06/18. (MDR pseudomonas in blood cultures) -Colistin nebs stopped 06/27 -Rocephin for Proteus in sputum 07/16/16 HEME: History of PE on chronic anticoagulation with Xarelto Iron deficiency anemia and anemia of critical illness. -Monitor CBC, transfused 1U PRBC 06/13 -Xarelto for PE 4 yrs ago. Continue Xarelto. -Ferrous sulfate 300 mg/q day ENDO: Hypothyroidism -On SSI (Low scale) -Continue levothyroxine 50 mcg po daily -Free T4 1.52 MSK: -Continue physical therapy PROPH: -Lower extremity SCDs (L leg only, R ankle cellulitis), continue home xarelto -GI prophylaxis- Protonix 20mg BID LINES: - PICC line RUE- No DVT on US 05/02 - removed on 06/03. PIV 's x 2 - Willard catheter removed 07/05. we are using rectal bag to collect urine in an effort to keep sacral and groin area clean and free of skin breakdown. CCT 90 MIN Continue ICU care due to acute change in near cardiopulmonary arrest, severe hypoxemia encephalopathy. Cancel transfer to LTAC Jaquan Zelaya MD Jul 17, 2016 09:55 Jaquan Zelaya MD Jul 17, 2016 09:55
[2016-07-17] MEDS ORDERED: NOREPINEPHRINE-DEXTROSE DRIP 250 ML IV SCH (10:00)
--- NOTE | 2016-07-17 11:42 | RADRPT ---
EXAM DATE/TIME: 07/17/2016 09:46 [place] COMPARISON: CHEST SINGLE AP, July 16, 2016, 4:36. INDICATIONS: Respiratory Failure. MEDICAL HISTORY: Respiratory Failure. SURGICAL HISTORY: Trach ENCOUNTER: Subsequent ACUITY: 3 months PAIN SCORE: Non-responsive. LOCATION: Chest FINDINGS: Pneumothorax is suspected. Right lung is clear. Heart remains enlarged. CONCLUSION: 1. Suspected pneumothorax on left. 2. Findings have been discussed with Dr. Zelaya. CT scan of the chest will be obtained. If there is a pneumothorax a chest tube will be placed. Jose Riley MD FACR on July 17, 2016 at 11:04 Board Certified Radiologist. This report was verified electronically.
[2016-07-17] MEDS ORDERED: LIDOCAINE 1%/EPINEPHrine 1:100,000 SOLN 20 ML VIAL ONE (12:00)
[2016-07-17 12:32] LABS: BLOOD GAS BASE EXCESS 9.8 mmol/L (-2-2); BLOOD GAS CARBOXYHEMOGLOBIN 1.6 % (0-4); BLOOD GAS HCO3 36 mmol/L (22-26); BLOOD GAS METHEMOGLOBIN 0.9 % (0-2); BLOOD GAS O2 HGB SATURATION 83 % (90-100); BLOOD GAS OXYGEN CONTENT 13.5 Vol % (12.0-20.0); BLOOD GAS PCO2 73 mmHg (38-42); BLOOD GAS PO2 53 mmHg (61-120); BLOOD GAS TOTAL HGB 11.6 G/DL (12.0-16.0); DRAW SITE RT RADIAL; FIO2 100 %; NUMBER OF ARTERIAL PUNCTURES 1; OXYGEN DEVICE VENTILATOR; STAT YES; TEMP CORR TO 98.6; ULNAR PULSE PRESENT; VENT SETTINGS 500/16/PEEP12
--- NOTE | 2016-07-17 15:30 | RADRPT ---
EXAM DATE/TIME: 07/17/2016 11:59 INDICATIONS : Left pneumothorax. DEVICE(S): 1.) 10 Fr [place] MEDICAL HISTORY : Cardiovascular disease. Hypertension. Congestive heart failure. Pulmonary embolism. SURGICAL HISTORY : Tracheostomy. ENCOUNTER: Initial ACUITY: 1 day PAIN SCORE: Non-responsive LOCATION: Left chest PROCEDURE: 2.) EKG and oximetry remained stable throughout the procedure. PROCEDURE : 1. CT guided chest tube placement. 2. Conscious sedation with continuous EKG and oximetry monitoring. Emergent chest tube placement was obtained without written consent. The site was prepped in sterile fashion. Full sterile technique was used, including cap, mask, sterile gloves and gown and a large s terile sheet. Hand hygiene and 2% chlorhexidine and/or betadine/alcohol prep was utilized per protoc ol for cutaneous antisepsis. The skin and subcutaneous tissues were infiltrated with local anestheti c solution. With CT guidance the chest was punctured and the prescribed catheter was placed in the lung apex. Wal l suction was applied. Post procedure images demonstrate satisfactory position of the tube. The cat heter was sutured in place and a Percu-Stay was applied. Conscious sedation was performed with the prescribed dosages and duration as above. The patient serafin ated the procedure well and there were no complications. EKG and oximetry remained stable throughout the procedure. The patient was sent to post anesthesia recovery in stable condition. CONCLUSION: Good reexpansion of the left lung. Minimal pneumothorax and pneumomediastinum remain s along the right. There is minimal intraperitoneal air all thought to have dissected from the left. Jose Riley MD FACR on July 17, 2016 at 15:27 Board Certified Radiologist. This report was verified electronically.
--- NOTE | 2016-07-17 17:16 | RADRPT ---
EXAM DATE/TIME: 07/17/2016 16:41 [facility] COMPARISON: CHEST SINGLE AP, July 16, 2016, 4:36. CHEST SINGLE AP, July 17, 2016, 9:46. INDICATIONS : Post chest tube placement. MEDICAL HISTORY : Repsiratory failure SURGICAL HISTORY : Tracheostomy ENCOUNTER: Subsequent ACUITY: 3 months PAIN SCORE: Non-responsive. LOCATION: Bilateral chest FINDINGS: There is a tracheostomy tube overlying the midline trachea. Gastric tubing is seen to extend beyond t he imaged portion of the film. The The lungs are hypoinflated and there is bilateral perihilar hazy opacities with mild enlargement of t he cardiac silhouette. Findings are consistent with congestive heart failure and pulmonary edema vers us volume overload. There is improved aeration of the lungs as compared to prior exams. CONCLUSION: Improving lung exam. Radha Lane MD on July 17, 2016 at 17:13 Board Certified Radiologist. This report was verified electronically.
[2016-07-17] MEDS: cefTRIAXone INJ 2,000 MG in SODIUM CHLORIDE 0.9% INJ 100 ML IV SCH (18:05)
[2016-07-17] MEDS: PROPOFOL 1000 MG/100 ML IV SCH ×3 (19:18→23:40)
[2016-07-17] MEDS: QUEtiapine FUMARATE 100 MG TAB PO SCH (19:57)
[2016-07-17] MEDS: RESP: ALBUTEROL 2.5 MG/IPRATROPIUM 0.5 MG NEB (PRN) NEB (20:06)
--- NOTE | 2016-07-17 22:40 | RADRPT ---
EXAM DATE/TIME: 07/17/2016 22:17 [facility] COMPARISON: CHEST SINGLE AP, July 17, 2016, 16:41. INDICATIONS : Chest tube removed. MEDICAL HISTORY : None. SURGICAL HISTORY : Tracheostomy. ENCOUNTER: Subsequent ACUITY: 3 months PAIN SCORE: Non-responsive. LOCATION: Bilateral chest FINDINGS: A single view of the chest demonstrates minimal bibasilar densities. Elevation right hemidiaphragm. T racheostomy tube and nasogastric tube unchanged. The cardiomediastinal contours are unremarkable. Os seous structures are intact. Left-sided chest tube removed. CONCLUSION: Minimal bibasilar densities, significantly improved from previous study. No pneumothorax. Vishnu Woodward MD on July 17, 2016 at 22:38 Board Certified Radiologist. This report was verified electronically.
[2016-07-18] VITALS (11 sets, daily range): BP systolic 101–133; BP diastolic 55–63; PULSE 87–93; RESP 21–22; TEMP 98.3–98.4; O2SAT 92–100
[2016-07-18] MEDS: PROPOFOL 1000 MG/100 ML IV SCH ×4 (02:19→14:45)
[2016-07-18] MEDS: LEVOTHYROXINE SODIUM 50 MCG TAB PO SCH (04:06)
[2016-07-18] MEDS: INSULIN NovoLIN REGULAR SUPPLEMENTAL SCALE SQ SCH (04:44)
[2016-07-18 05:33] LABS: HEMATOCRIT 33.3 % (39.0-51.0); MEAN CORPUSCULAR HEMOGLOBIN 27.1 PG (27.0-34.0); MEAN CORPUSCULAR HGB CONC 31.9 % (32.0-36.0); PLATELET COUNT 247 TH/MM3 (150-450); RED BLOOD COUNT 3.92 MIL/MM3 (4.50-5.90); REVIEW FLAG FINAL; WHITE BLOOD COUNT 11.8 TH/MM3 (4.0-11.0)
[2016-07-18 06:01] LABS: ALKALINE PHOSPHATASE 135 U/L (45-117); ALT (GPT) 56 U/L (12-78); ANION GAP 12 MEQ/L (5-15); AST (GOT) 93 U/L (15-37); BICARBONATE 37.5 MEQ/L (21.0-32.0); BLOOD UREA NITROGEN 13 MG/DL (7-18); CHLORIDE 85 MEQ/L (98-107); GLOMERULAR FILTRATION RATE 91 ML/MIN (>89); POTASSIUM 3.7 MEQ/L (3.5-5.1); SODIUM (NA) 134 MEQ/L (136-145); TOTAL BILIRUBIN ADULT 0.4 MG/DL (0.2-1.0)
[2016-07-18] MEDS: ATORVASTATIN 10 MG TAB PO SCH (07:39)
[2016-07-18] MEDS: SERTRALINE HCL 100 MG TAB PO SCH (07:39)
[2016-07-18] MEDS: MONTELUKAST SODIUM 10 MG TAB PO SCH (07:39)
[2016-07-18] MEDS: RIVAROXABAN 20 MG TAB PO SCH (07:39)
[2016-07-18] MEDS: FENOFIBRATE 48 MG TAB PO SCH (07:40)
[2016-07-18] MEDS: ALLOPURINOL 300 MG TAB PO SCH (07:40)
[2016-07-18] MEDS: FERROUS SULFATE 325 MG (65 MG ELEMENTAL IRON) TAB PO SCH (07:40)
[2016-07-18] MEDS: BUMETANIDE 1 MG TAB PO SCH (07:40)
[2016-07-18] MEDS: PANTOPRAZOLE SOD 20 MG DELAYED RELEASE TAB PO SCH ×2 (07:40→19:37)
[2016-07-18] MEDS: CHLORHEXIDINE 0.12% (ORAL KIT) 15 ML CUP MT SCH ×2 (07:40→19:04)
[2016-07-18] MEDS: MULTIVITAMIN TAB PO SCH (07:40)
[2016-07-18] MEDS: NYSTATIN 100,000 U/GM PWD 15 GM BTL TOPICAL SCH ×2 (07:42→19:38)
[2016-07-18] MEDS: COLLAGENASE OINT 30 GM TUBE TOP SCH (07:43)
[2016-07-18] MEDS: POTASSIUM CHLORIDE 20 MEQ CONTROLLED RELEASE TAB PO SCH ×2 (07:43→22:00)
[2016-07-18] MEDS: MICONAZOLE NITRATE 2% CREAM 15 GM TOP SCH ×2 (07:43→19:38)
[2016-07-18] MEDS: SODIUM CHLORIDE 0.9% FLUSH 5 ML FLUSH IVF SCH ×2 (07:58→19:04)
[2016-07-18] MEDS: DILTIAZEM HCL 90 MG TAB PO SCH ×3 (09:00→18:58)
[2016-07-18] MEDS: RESP: BUDESONIDE 0.5 MG/2 ML NEB NEB SCH ×2 (10:24→19:56)
[2016-07-18] MEDS: IBUPROFEN 600 MG TAB PO PRN (12:21)
[2016-07-18] MEDS: cefTRIAXone INJ 2,000 MG in SODIUM CHLORIDE 0.9% INJ 100 ML IV SCH (13:40)
--- NOTE | 2016-07-18 14:28 | HHI.FPPN ---
Subjective Remarks Overnight, TREVA. AFVSS. Still on ventilator: PEEP 12, Volume 700, R18, FI02 100%. Respiratory was in room, planned to attempt to wean to CPAP this AM Pt awake, will track people around room, but will not attempt to speak. Nodded head to all questions asked (Headache? Shortness of Breath? Chest Pain? Stomach Pain?)- did not appear to be reliable answers. When asked what was bothering him the most, lifted L arm off bed. Possibly trying to indicate UE restraints, pt response unclear. [place] in place. OOB with assistance. Objective Vitals Vital Signs Date Time Temp Pulse Resp B/P Pulse Ox O2 Delivery O2 Flow Rate FiO2 07/18/16 13:21 18 07/18/16 12:03 100 40 07/18/16 12:00 40 07/18/16 10:29 98 40 07/18/16 10:26 98 40 07/18/16 08:00 40 07/18/16 08:00 96 Mechanical Ventilator 40 07/18/16 08:00 93 07/18/16 04:14 100 40 07/18/16 04:00 98.3 91 22 101/58 92 07/18/16 01:10 98 50 07/18/16 00:00 98.4 91 22 108/55 92 07/17/16 22:01 96 60 07/17/16 20:07 97 70 07/17/16 20:00 98.4 88 22 99/57 92 07/17/16 20:00 93 T-Piece 10.00 70 07/17/16 20:00 84 07/17/16 17:24 97 70 I/O 07/17/16 07/17/16 07/17/16 07/18/16 07/18/16 07/18/16 07:00 15:00 23:00 07:00 15:00 23:00 Intake Total 205 ml 769 ml 169 ml 225 ml Output Total 320 ml 325 ml 275 ml Balance 205 ml 449 ml -156 ml -50 ml Intake Oral 200 ml 600 ml IV Total 5 ml 169 ml 169 ml 225 ml Output Urine Total 320 ml 325 ml 275 ml # Voids 2 # Bowel Movements 1 1 1 Result Diagram: 07/18/1641607/18/16416 Imaging Pertinent per A/P Objective Remarks CONST: Morbidly obese male, NAD. DERM: Erythematous fungal rash on bilateral arms, forearms, deltoids, upper torso, continues to improve. Well-healing scar R shoulder R lat malleolus with 1.5 x 1.5 cm skin break down. Area in bandage- c/d/i. Numerous skin folds 2/2 habitus. Dry, flaking skin on feet. Bruising on abdomen HEENT: Tracheotomy site c/d/i. Poor dentition. MMM CV: Distant heart sounds. RRR. RESP: Anterior exam: end expiratory wheezing. Breathing comfortably on T piece GI: NDNT. MSK: External rotation of RLE and LLE NEURO: CN grossly normal. PSYCH: Appears resigned/moderately apathetic. Begrudgingly complies with care requests. Poor insight. Procedures 04/24- Started ventilation 05/02- Emergency Trach Exchange 06/03- PICC line removed 06/07- Debridement of RUE abscess (Dr. Velazquez), RUE drain placed. 06/10- RUE drain removal 07/05- Removed from ventilation, continuous T-piece, remained off ventilation since 07/17- Decompensated, tension pneumo, returned to ventilator, chest tube placed Urinary Catheter: Yes A/P Assessment and Plan 31yo male with morbid obesity (BMI 68 on admit) admitted 04/24/16 for acute on chronic respiratory failure. Discharge Planning Placement pending vital signs stable. Possibly tomorrow 07/19/16- will confer to CC. Case management working on placement since 07/08/15. 07/18- Talked to case. The SNF will accept pt when stable pending letter of acceptance they are working on 07/17- Touched base w case management- called yesterday, called this AM, waiting to hear back from [facility]. Dr. Brown did peer to peer with [facility] Insurance for placement at [facility] (refused to cover cost of admission, SNF not in their approved list) Dr. Morgan, , called insurance 07/10/12- did not get a response. Denied placement to [facility]. Denied placement [facility] (can accommodate up to 6L oxygen, pt using 8L) SDW: Dr. Watts, Dr. Jackson, Dr. Mccain Problem List: (1) PLAN Status: Chronic Plan: Assistant Research Scientist following. Hx of ID, General surgery, podiatry, orthopedics, neurologic, rehab medicine consulted 07/18- wean from vent to CPAP as tolerated. Unsure if Cardiazem necessary for Afib- NSR since admission- presently held for SBP <110, re-start at TID when appropriate (decreased from QID) Diet from 1999 to 1700 for additional WL. Continue Rocephin (07/16- ) PNA. Chest Tube withdrawal ? NEURO/PSYCH CO2 narcosis: Resolved with oxygen supplementation Polyneuropathy of Critical illness: Continue PT, discharge to SNF RUE weakness/pain & Cervical neuropathy: Continue PT/OT, Frequent rotations, OOB to chair, Ibuprofen PRN pain Anxiety/MDD: Continue Seroquel 100mg HS, Zoloft 200mg daily Insomnia: Zolpidem 5mg HS Disordered eating: Adhere to dietary recommendations: 1700 calorie heart healthy diet RESP: Tension Pneumothorax 07/17/16- Chest tube removal per CC, serial CXR show improvement PNA 07/16/16: See ID Acute hypercapnic and hypoxemic respiratory failure: Inially secondary tracheostomy leak. S/p trach replacement 05/02. Course cx by HCAP and bacteremia. Appeared resolved, weaned from ventilator/CPAP 07/05/15 and seeking placement. However, decompensated 07/17/16 after tension pneumothorax. Tx bronchodilators, wean from vent as tolerated Chronic Respiratory Failure s/p Tracheostomy (2011): Aggressive pulmonary toliet , trach care, O2 supplementation, as needed for O2 saturation 90%+ Healthcare associated pneumonia: Resolved, see ID Pickwickian Syndrome: Oxygen support PRN for saturation 92%+, wean as tolerated History of pulmonary embolism 2012: Continue home Xarelto Pulmonary edema: diuresis PRN (see CHF) CV: CHF: Suspected HFrEF. Unable to confirm via ECHO (04/25). BNP elevated, downtrended. Keep MAP>65mmHg. Bumex 1mg daily PO Paroxysmal atrial fibrillation (history of, currently SNR): Cardiazem 90mg QID, Xarelto GI/LIVER Super morbid obesity with BMI 60-69 (on admission), 50-59 (current): Wt 480lbs ( 04/25/16). Wt 408 lbs (07/18/15). Per nutrition- 1700c heart healthy diet, no outside food Nausea- GERD vs gastroparesis vs psychosomatic. Chronic- waxing and waning, Zofran ODT q4h PRN, Protonix 20mg BID Hyperlipidemia: Lipitor 10g daily, TriCor 40mg by mouth daily Episodes of food refusal, Adhere to hospital diet Splenomegaly, Incidental finding. Continue to monitor Fatty Liver Disease: per Liver US 06/03/16, Lose weight to healthy weight BMI <25 Diarrhea: Chronic. Present prior to admission. C. difficile testing negative. Ddx: poor diet vs medication side effect. Adhere to hospital diet, no outside food, continue to monitor FEN/RENAL: Chronic Hypokalemia: KCL 40 meq BID replacement REYES + additional per ICU protocol Urinary incontinence: Unable to use bedside commode secondary to body habitus. [place] PRN Hypomagnesemia: Replete per ICU protocol ID/DERM PNA 07/16/16: Continue Rocephin (07/16- ). Sputum culture (07/14) with proteus. CXR (07/16): No change from previous. Fungal dermatitis: Persistent s/p Diflucan 07/11- 07/16. Continue nystatin powder , miconazole creme Resolved: Bacteremia- Enterococcal faecalis bacteremia, Pseudomonas bacteremia ( 06/02, 06/03) HCAP, Sepsis, Fever, Yeast UTI, Hx MDRO, Cellulitis R arm, Leukocytosis Cultures -Sputum culture- 07/14- Provencia -Blood culture: aerobic and anaerobic bottles - enterococcus faecalis, pseudomonas aeruginosa 06/02, 06/03 -Urine culture: pseudomonas aeruginosa- 06/02 -Wound culture: pseudomonas aeruginosa- 06/02 -Sputum culture: Pseudomonas- 06/02 -Sputum cx- NG- 05/15 -Wound cx: Proteus, Pseudomonas, Group D Enterococcus- 05/13 -Bronchoscopy and re-culture 05/10- NG -Wound culture Pseudomonas MDR 04/27 -Sputum culture-Pseudomonas MDR- 04/27 -Urine cx: Proteus Mirabilis 05/05 -Sputum cx: Providencia 05/05 Abx History Zosyn 4.5gm IV q6h (04/24 - 04/29) Levaquin 750mg IV q24h (04/24-04/30) Zerbaxa 1.5 g IV q8h (04/29 - 05/07) Vancomycin IV (04/24 - 05/06) Ceftriaxone IV (05/07 - 05/25) Linezolid 600 mg PO BID (05/06 - 05/13) Zosyn 3.375 q6h (06/04- 06/05) Vancomycin IV daily goal trough 15-20, (06/03 -06/18) Zerbaxa IV q8h (06/05-06/18) Rocephin (07/16- ) HEME: History of PE (2011)- continue Xarelto Normocytic Anemia- iron deficiency vs anemia of critical illness, continue Ferrous sulfate 325mg PO daily ENDO: Hypothyroidism- 05/27/16- TSH low, free T4 grossly wnl. Continue Synthroid 50 mcg PO daily Hyperglycemia of Critical care: On SSI (Low scale) MSK RUE Weakness: secondary to hematoma vs C6/C7 neuropathy. L hemispheric pathology and seizure r/o via imaging. Unable to tolerate EMG. Venous Doppler RUE 05/28 negative for DVT. Improving Aggressive PT: RUE strength training. Ibuprofen 600mg q6h PRN pain control Deconditioned: RLE strengthening internal rotation, OOB to chair, feed self Hematoma: S/p I&D by Dr. Velazquez (06/07/16). Small hematoma inconsistent with large imaging suggested per MRI brachial plexus. Resolved. Consider re-imaging if worsens R ankle decubitus ulcer: present on admission, worsened. Wound Cx (07/05): Providencia stuartii. Podiatry, Wound Care consulted. Daily dressing changes Decubitus ulcer: Offload pressure Gout: Allopurinol 300mg daily Hematoma: Resolved s/p I&D, re-image if RUE weakness/pain worsens Imaging: - US negative for DVT (05/28) - MRI brain (04/28) no acute intracranial process - MRI C-spine (05/29): grossly wnl - EEG (05/29): diffuse mild encephalopathy vs normal Stage 2 sleep - MRI brachial plexus (06/03): "Complex multiloculated soft tissue and cystic mass 5.5 x 6 x 7.8 cm involving subscapularis muscle along anterior R scapula - Pathology report (06/07): fragments of blood clot admixed with few minute fragments of adipose and skeletal muscle tissue (2) Acute on chronic respiratory failure with hypoxia and hypercapnia Status: Resolved (3) Fungal infection Status: Acute (4) Nausea Status: Chronic (5) Hematoma Status: Acute (6) CHF (congestive heart failure) Status: Chronic (7) Yeast UTI Status: Resolved (8) Moderate protein malnutrition Status: Chronic (9) Pressure ulcer of right leg, stage 2 Status: Chronic (10) Paroxysmal a-fib Status: Chronic (11) MDD (major depressive disorder) Status: Chronic (12) History of DVT (deep vein thrombosis) Status: Chronic (13) Hypothyroidism Status: Chronic (14) On mechanically assisted ventilation Status: Chronic (15) Normocytic anemia Status: Chronic (16) Gout Status: Chronic Plan: see plan above (17) Hyperlipidemia Status: Chronic Plan: see plan above (18) Pneumonia Status: Acute (19) Hypomagnesemia Status: Resolved (20) Chronic respiratory failure Status: Chronic (21) Hypokalemia Status: Chronic (22) Diarrhea Status: Chronic (23) Morbid obesity with BMI of 50.0-59.9, adult Status: Chronic (24) Pickwickian syndrome Status: Chronic (25) Sacral decubitus ulcer Status: Chronic (26) Urinary incontinence due to immobility Status: Chronic (27) NAFLD (nonalcoholic fatty liver disease) Status: Chronic (28) Splenomegaly Status: Chronic (29) Somatic complaints, multiple Status: Chronic (30) Pulmonary edema Status: Chronic (31) History of pulmonary embolus (PE) Status: Chronic (32) CO2 narcosis Status: Resolved (33) Polyneuropathy associated with critical illness Status: Chronic (34) Weakness of right upper extremity Status: Chronic (35) Cervical plexus neuropathy Status: Chronic (36) Anxiety Status: Chronic (37) Insomnia Status: Chronic (38) Disordered eating Status: Chronic (39) Tracheostomy present Status: Chronic (40) HTN (hypertension) Status: Chronic (41) HCAP (healthcare-associated pneumonia) Status: Resolved (42) Cellulitis of chest wall Status: Resolved (43) Stress hyperglycemia Status: Resolved (44) Bacteremia Status: Resolved Problem Qualifiers (1) CHF (congestive heart failure): Qualified Code: I50.9 - Acute on chronic congestive heart failure, unspecified congestive heart failure type (2) MDD (major depressive disorder): Qualified Code: F33.2 - Severe episode of recurrent major depressive disorder, without psychotic features (3) Hypothyroidism: Qualified Code: E03.9 - Hypothyroidism, unspecified type (4) Chronic respiratory failure: Qualified Code: J96.10 - Chronic respiratory failure, unspecified whether with hypoxia or hypercapnia (5) Insomnia: Qualified Code: F51.04 - Psychophysiological insomnia (6) HTN (hypertension): Qualified Code: I10 - Essential hypertension Holley Baires MD R1 Jul 18, 2016 14:28
--- NOTE | 2016-07-18 15:10 | HHI.CCPN ---
Subjective Remarks/Hospital Course 31 year old morbidly obese (BMI 68) male with chronic respiratory failure s/p tracheostomy 4 years ago, atrial fibrillation and pulmonary embolism on Xarelto , COPD, CHF and h/o HTN. He presented from [facility] with low oxygen saturation apparently his oxygen saturation was 82% on RA. He was placed back on 6L of oxygen via his trach mask and given a breathing treatment, initially improved however he started drifting back to low 80s again. Chest x-ray showed bibasilar infiltrates and pulmonary edema. Patient was admitted to the [facility] service and was started on IV steroids IV vancomycin and Zosyn and Levaquin for healthcare associated pneumonia. After starting ACV, patient was more awake but there was a significant amount of air leak around his tracheostomy. Patient has had a Shiley 6.0 Proximal XLT, but the packing machine pilot can router balloon had been cut off. 05/02 the patient became acutely hypoxemic with a large cuff leak, underwent emergency trach exchange at bedside by Dr. Macias. FiO2 65% PEEP 14 05/13 Patient is on ventilator via trach, on Fentanyl infusion however he is awake and alert. On PRVC with FIO2 40%. Afebrile. 05/14 No acute events overnight. Tmax 99.8. Patient is awake, alert on ventilator via trach still requiring increase O2. On PRVC with PEEP: 10 and FIO2 70%. 05/15 Pt acutely desaturated after he was found. Saturation down to 70% on 100 % oxygen. Bag and mask ventilation carried out, with eventual improvement on oxygen saturation to 85%. Patient was placed on PC/AC mode of ventilation, with PEEP of 15 and instructed to pressure of 30. Eventually oxygen saturation improved to 95%. Lasix him today as the chest x-ray from today shows increasing bilateral infiltrate and pulmonary edema. Sputum culture will be sent 05/16 Patient is on Fentanyl and Diprivan infusion but awake and alert. Afebrile. On PC/AC with PEEP:15, IP: 22, IT:1.3 and FIO2 50% 05/17 Patient is off Diprivan and remains on Fentanyl infusion for sedation. On PC/AC with PEEP: down 10 and FIO2 40%. Afebrile. 05/18 Patient remains on ventilator via trach on PC/AC with PEEP:12, FIO2 40%, IP:22, IT:1.0. On Fentanyl infusion 05/19 No acute events overnight. On Fentanyl infusion but awake and alert. Afebrile. 05/20 Tolerating C Pap 17/12 FIO2 40, sats 98%. RSBI in 20s, appears can be weaned further. Afebrile. Speech therapy evaluated and ok for regular diet. Starting with full liquid. 05/21 Will wean PSV to 15/10. Tolerated full liquids, will advance to regular diet per speech recs. 05/22 On PSV 15/10 FIO2 40 with sats 92%. Smiling today. Glad to be eating regular food again. 05/23 No acute events overnight. Remains on CPAP with PS 15, PEEP:10 and FIO2 40 %. Afebrile. Off Fentanyl drip. Afebrile. Awake and alert. 05/24 Patient is on CPAP 06/06 with 40% FIO2. Afebrile. Awake and alert, on no sedation. 05/25 No acute events overnight. Patient was placed back on PC/AC overnight. Tolerated CPAP trials during day yesterday. Awake and alert. On no drips. Afebrile. 05/26 Afebrile. Tmax 98.6. Today the patient complained of nausea requiring Zofran. The patient has a lack of an appetite, with noted hypoglycemia early this a.m. blood glucose level 69. Patient tolerating CPAP well greater than 12 hours in the last 24 hours. 05/27 The patient tolerated CPAP for over 36 hours, O2 sat a knee 94% on FIO2 40 %. The patient had an increase in appetite. The patient continues on full liquid diet. 05/28 The patient declined physical therapy treatment, yesterday and also overnight declined to be moved by nursing staff. The patient refused dinner last evening, of note patient was reevaluated by speech therapy and can consume a heart healthy diet with thin liquids. The patient continues on physical therapy for strengthening exercises of all extremities specifically noted right upper extremity continues to be weak with gross fibrillations noted in hand and forearm. 05/29 Afebrile. No change in right upper extremity weakness. The patient was seen by neurology yesterday plan for MRI today if possible in hospital MRI, and EMG studies. No complaints overnight. Patient continues to refuse to have activities performed, movement in bed. The patient appears to be depressed, psychiatry consulted. 05/30: Patient alert awake on CPAP. Following commands. Psych agrees the patient is depressed. MRI brain no acute findings 05/31: Awake alert. on PS 15/8. EMG could not be completed due to patient becoming anxious. Otherwise no acute events reported overnight 06/01: Remains PS from 11/02. Right upper extremity weakness persists. EMG to be repeated on Friday. Will need MRI of the brachial plexus. Chest x-ray is unchanged 06/02: States that "not feeling well". Febrile to 101.5. White count increasing but still within the normal range. Pancultured. We'll request ID reevaluation. 06/03: Resting in bed on C Pap/pressure support via tracheostomy. One out of 2 sets of blood cultures sent on 06/02 positive for gram-positive cocci. 06/04: Resting in bed on mechanical ventilation via tracheostomy. Afebrile overnight. MRI brachial plexus (06/03) revealed a collection near the right subscapularis muscle, possibly an abscess. Discussed with ID, orthopedics Dr. Velazquez consulted. I discussed the case with Dr. Velazquez this morning who feels this is probably an abscess however would be difficult to access surgically and he plans to set up percutaneous drainage by interventional radiology. 06/05: Resting in bed on mechanical ventilation via tracheostomy. Remains afebrile. Reportedly IR cannot do percutaneous drainage of collection involving right subscapularis muscle. 06/06: Resting in bed on mechanical ventilation via tracheostomy. Can actually speak around the trach. Remains afebrile. Dr. Velazquez evaluated patient and is scheduling surgery for drainage of fluid collection involving the right subscapularis muscle. 06/07: Resting in bed on mechanical ventilation via tracheostomy. Awaiting surgery today. 06/08: Status post I&D of collection near right shoulder/subscapularis on 06/[address] Velazquez. This morning patient is awake and alert complained of some pain at the surgical site. Remains on mechanical ventilation on C Pap/pressure support. 06/09: Sleeping, arousable. On mechanical ventilation with C Pap/pressure support overnight. Labs pending 06/10 No acute events overnight. On CPAP with PS 12, PEEP: 8, FIO2 40%. Afebrile. 06/11 Patient remains on CPAP with PS 10, PEEP: 8 and FIO2 40%. Afebrile. 06/12: No acute events overnight. Remains on CPAP 10/5. No specific complaints 06/13: Tolerating C Pap 10 over 5. Awake and alert following commands. Hemoglobin dropped from 8.6-7.1, no obvious bleeding. Sodium 140-149. Will give 1 unit of PRBC with 1 mg IV Bumex 06/14 No acute events overnight. On CPAP with PS 10, PEEP:5 and FIO2 50%. Afebrile. 06/15 No acute events overnight. Remains on CPAP 10/5 with 40% FIO2. Afebrile. 06/16 Patient remains on ventilator via trach on CPAP with PS 10, PEEP:5 and FIO2 40%. 06/17: Resting in bed on mechanical ventilation via tracheostomy. Feeling nauseous. 06/18: OOB in reclining chair. Reporting low back and leg pain that is positional. Continued nausea, denies emesis. CPAP w PS 5 FIO2 40%. Will attempt Tpiece trial today. Discontinue Vanc + Zerbaxa today per ID 06/19: No acute events overnight. Afebrile. HTN to 160/80. CPAP with PS 10. PEEP 10 FIO2 45. Failed Tpiece trial yesterday- desaturated to mid 70s. Denies SOB/CP. Nausea is less than before. Bed is broken and patient would like the mattress to "rotate". Per nursing, they are working to fix it. 06/20: No acute events overnight. Afebrile. HTN to 145/70. CPAP with PEEP 10 FIO2 45, with saturation 93=94%. Pt has no acute complaints. Denies SOB/CP/ Nausea. Didn't know why he threw up during PT yesterday. Denies pain. Still having diarrhea (chronic years in duration issue). Was eating Pringles in bed. Per nursing, does not eat hospital food- waits for mother to bring him food. He was counseled to eat the hospital food which is healthier for him and that he needs to stop eating food brought in by his mother. 06/21: Remains on mechanical ventilation, CPAP with pressure support. 06/22: On mechanical ventilation on C Pap with pressure support. Denies any nausea or abdominal pain. Appears comfortable. 06/23: Resting in bed on mechanical ventilation with C Pap/pressure support +10/ +5. Denies any shortness of breath denies any abdominal pain or nausea currently. 06/24: Refusing to get OOB with physical therapy today. I had a long discussion with the patient about the fact that he has been inpatient for months now and he is severely deconditioned. He must get out of bed with PT to clinically improve, and deconditioning is a major factor in his chronic respiratory failure. He denies chest pain or SOB. does endorse some nausea today. 06/25: tolerated 4 hours OOB yesterday with 4 hours of trach collar. plan to go 6 hours today. 06/26: tolerated OOB to chair 5 hours yesterday but only 1.5hr of trach collar due to hypoxia. 06/27: tolerated OOB to chair for 6 hours yesterday and almost 5 hours of trach collar. daily, he continues to be very resistant to participating in PT and getting OOB. He again asks if he can lay in bed today. 06/28: tolerated 6 hours of trach collar yesterday. OOB for almost 8 hours. 06/29: continues to tolerate daily trach collar trials. OOB for 8 hours again yesterday. 06/30: tolerated 8 hours of trach collar yesterday. OOB for 7 hours. can do trach collar as tolerated. he continues to make attempts to refuse physical therapy and does not wish to participate in his care. 07/01: no changes. did well with 8 hours of trach collar and 8-9 hours of OOB. will attempt to stand and possibly walk in place today. this certainly is a large undertaking given how deconditioned he is, but I think the mobilization will help to continue our rehabilitation efforts. will be taxing on medical staff to physically assist him. This is likely something we can only do on a weekly basis. 07/02: took 3 steps yesterday (first time out of bed in almost 3 months). otherwise, tolerating daily t-piece with nightly CPAP. plan for OOB and steps again today. trach collar as tolerated. diamox x 3 doses for worsening contraction alkalosis. net -900cc/24h. 07/03: OOB and a few steps again yesterday. trying to push him to longer t-piece intervals with fewer rests on CPAP. OOB all day again today. net euvolemic yesterday. lab holiday today. 07/04: to chair today. trach collar as tolerated. I really think he could go most of the night if not all night on trach collar, but he keeps insisting on going back on the vent to rest. brought to my attention by family practice team for ankle skin breakdown. agree with podiatry consult. 07/05: OOB to chair again today. tolerated trach collar yesterday. CPAP at night. keeps asking to go back on rate on vent overnight. I do not think medically he needs this. podiatry saw patient and recommended dressing and elevation for foot. 07/06: on trach collar all night, not on the vent. this is a huge improvement. K 6.0 on bmp this AM, but Cr at baseline. will recheck. 07/07: remains off the vent on trach collar. weaning fio2. OOB again. recheck K yesterday 6.0--> 3.7, so likely spurious lab. I think tomorrow if he remains on trach collar, he is safe to go back to his facility. 07/08: No acute issues overnight. Plans for transfer to his facility with case management assistance. 07/09: Afebrile.The patient continues on trach collar. After readjustment in the bed early this a.m., the patient required increased O2 requirements to FiO2 of 90% which was decreased back down to 70% within an hour. No acute respiratory distress was noted. 07/10: Afebrile.No acute issues overnight. Patient continues on trach collar without any issues,O2 at 6-8 L/m. 07/11: Noted anterior left chest, appearance of fungal skin infection, spreading despite use of 2 antifungal creams. No acute issues overnight, awaiting peer-to -peer phone conversation with LTAC facility regarding necessity secondary to oxygen usage. 07/12: continues to make slow clinical improvements. had to go back to 100% fio2 last night, but remained off mechanical ventilatory support. [id number] convo today, I do think he would wean back to baseline fio2 within 2-3 weeks, given how much he has improved over the last few weeks. 07/13: No changes. continues to improve slowly. fio2 70% during the day, 90% at night. weaning fio2 during the day today. OOB to chair for most of the day. awaiting decision by insurance company for possible LTAC. 07/14: Remains on TP, now on 98% oxygen. Chest x-ray pending. No report of increased secretions, no fever 07/15: Sitting up and stretches chair today. Breathing more comfortably. Chest x-ray yesterday showed probable worsening right lower lobe infiltrate. Repeat cultures pending. FiO2 had been weaned down to 70% 07/16: Sitting up in chair breathing comfortably. FiO2 down to 50%. Will increase daily up to chair time. No fever reported. Sputum culture from growing Proteus, started on Rocephin SUBJECTIVE 07/17: Patient was sitting up in chair eating break fast, Suddenly pointed to the trach and lost consciousness, HR dropped to 28, oxygen saturation was unremarkable. Tracheostomy cuff was up-not deflated. Unclear whether he aspirated. Place back on full mechanical ventilation with 100% FiO2 16 of PEEP, saturation eventually recorded at 72%, gradually improved to 86. Patient remains unconscious, propofol started for ventilator synchrony. ABG showed pH 7.3 PCO2 of 73 PO2 53 and saturation 83%. Chest x-rays pending at this time 07/18: Patient is a acute hypoxemic respiratory failure yesterday while sitting up and stretches chair. Emergently, placed on mechanical ventilation, stat chest x-ray showed large right sided pneumothorax. IR placed a right sided chest tube with reexpansion of the lung. Unfortunately, patient accidentally dislodged chest tube yesterday evening. Chest x-ray following this did not show any pneumothorax. Currently patient has good sats. Mentation is back to normal, we'll start vent weaning with C Pap trials Objective Vital Signs Date Time Temp Pulse Resp B/P Pulse Ox O2 Delivery O2 Flow Rate FiO2 07/18/16 13:21 18 07/18/16 12:03 100 40 07/18/16 08:00 Mechanical Ventilator 07/18/16 08:00 93 07/18/16 04:00 98.3 101/58 07/17/16 20:00 10.00 Intake and Output 07/17/16 07/17/16 07/18/16 08:00 16:00 00:00 Intake Total 205 ml 769 ml 169 ml Output Total 320 ml 325 ml Balance 205 ml 449 ml -156 ml Result Diagram: 07/18/16 0417 07/18/16 0417 Imaging MRI 06/20/16: No official reading. Preliminary reading suggests periventricular white matter changes at basal ganglia and no evidence ischemia CXR 06/17/16: Poor penetration. Rotated image. Unable to visualize lung bases. Possible atelectasis vs infiltrate R worse than L. Objective Remarks GEN: 31yo on PCV mode of ventilation, more responsive today SKIN: Warm and dry. Tinea corporis appearing lesions left anterior chest-but these lesions mayra to pressure HEAD: Normocephalic. EYES: No scleral icterus. No injection or drainage. NECK: Obese with large neck circumference, trachea midline. Shiley 6.0 Proximal XLT, (new trach placed 05/02/16) CV: Normal rate, regular rhythm. RESP: On mechanical ventilation PCV, Breath sounds diminished significantly bilaterally. GI: Abdomen soft, obese, non-tender, nondistended. MSK: No cyanosis, or edema. Pedal edema. Neuro: Wakes up easily. Follows commands. 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 hypoxia and hypercapnia induced (07/17/16) now resolved Critical care polyneuropathy Right upper extremity weakness 05/21-possibly secondary to nerve compression, C6 , C7 (brachial plexus) Pain, Anxiety, Depression -On propofol for ventilator synchrony given severe hypoxemia, since patient has improved, wean off Propofol -Clinically had right brachial plexus involvement. MRI of brachial plexus on 06/03 revealed collection involving right subscapularis muscle- s/p I & D on 06/[address] Velazquez. -Neurology Dr. Cheek-MRI brain, C spine no acute findings. -Continued PT daily, with strengthening exercises -Continue Seroquel 100mg HS. Continue Zoloft 100mg daily -Tylenol 625mg pain 1-6, Percocet 10/325 pain 7-10 RESP: Acute on chronic hypercapnic and hypoxemic respiratory failure, acute exacerbation today 07/17/16 Large right sided pneumothorax status post chest tube 07/17/16 Acute lung derecruitment 05/15 with hypoxia Worsening hypoxia 07/14/16 probable lung de-recruitment Healthcare associated pneumonia Tracheostomy packing machine pilot can router balloon damage (Shiley 6.0 Proximal XLT) s/p new trach placement 05/02 Chronic Respiratory Failure s/p Tracheostomy 4 years ago COPD/obesity hypoventilation syndrome History of pulmonary embolism 4 years ago Leukocytosis-resolved Pulmonary edema -Developed large right sided pneumothorax, 07/17/16. IR to place chest tube with resolution of pneumo, accidentally dislodged chest tube overnight - Full Mech franklin support with PCV RR 18 insp pres 30. Restart C Pap trials - s/p Bronchoscopy 05/11 - BAL results negative - Aggressive Pulm toilet, trach care - Keep sat >88%. Continue DuoNeb q6h REYES + q2h PRN, Pulmicort BID, Singulair 10mg daily CV: CHF exacerbation Pulmonary edema Paroxysmal atrial fibrillation (chronic) Hyperlipidemia -Transient bradycardia secondary to hypoxia -Cardizem 90mg QID resume today 07/18, Continue Bumex 1mg daily PO, Lipitor 10g daily, TriCor 40mg by mouth daily -Continue on home Xarelto. -Levophed if needed to keep map above 65 GI: Super morbid obesity with BMI of 64 Nausea GERD -NPO -Liver US 06/03: Fatty liver, sludge in gallbladder, splenomegaly, no mechanical obstruction of bile duct noted. -Protonix 20mg BID. Zofran prn for nausea. -Multivitamin daily FEN/RENAL: Hypokalemia Metabolic alkalosis - Monitor renal function , I/O, electrolytes replacement per protocol. - Bumex 1mg PO daily, KCL 40meq Q12hr - Willard was discontinued. using rectal bag to collect urine and keep sacral area clean. no indication for willard catheter. ID: Healthcare associated pneumonia Sepsis New fever-resolved MDRO Cellulitis right arm-resolved Leukocytosis-resolved Enterococcal faecalis bacteremia, Pseudomonas bacteremia (06/02, 06/03) -Wound culture Pseudomonas MDR 04/27 -Sputum culture-Pseudomonas MDR- 04/27 -Urine cx: Proteus Mirabilis 05/05 -Sputum cx: Providencia 05/05, rpt sputum 07/14/16 Proteus -Bronchoscopy and re-culture 05/10- NG -Wound cx: Proteus, Pseudomonas, Group D Enterococcus- 05/13 -Sputum cx- NG- 05/15 -Blood culture: aerobic and anaerobic bottles - enterococcus faecalis, pseudomonas aeruginosa 06/02, 06/03 -Urine culture: pseudomonas aeruginosa- 06/02 -Wound culture: pseudomonas aeruginosa- 06/02 -Sputum culture: Pseudomonas- 06/02 -Dr. Velazquez performed drainage of collection surgically on 06/07- likely hematoma -Stopped IV Vanc and Zerbaxa on 06/18. (MDR pseudomonas in blood cultures) -Colistin nebs stopped 06/27 -Rocephin for Proteus in sputum 07/16/16 HEME: History of PE on chronic anticoagulation with Xarelto Iron deficiency anemia and anemia of critical illness. -Monitor CBC, transfused 1U PRBC 06/13 -Xarelto for PE 4 yrs ago. Continue Xarelto. -Ferrous sulfate 300 mg/q day ENDO: Hypothyroidism -On SSI (Low scale) -Continue levothyroxine 50 mcg po daily -Free T4 1.52 MSK: -Continue physical therapy PROPH: -Lower extremity SCDs (L leg only, R ankle cellulitis), continue home xarelto -GI prophylaxis- Protonix 20mg BID LINES: - PICC line RUE- No DVT on US 05/02 - removed on 06/03. PIV 's x 2 - Willard catheter removed 07/05. we are using rectal bag to collect urine in an effort to keep sacral and groin area clean and free of skin breakdown. CCT 40 MIN Continue ICU care. Evaluate for transfer to LTAC in 24 hours Jaquan Zelaya MD Jul 18, 2016 15:10
--- NOTE | 2016-07-18 17:37 | RADRPT ---
EXAM DATE/TIME: 07/18/2016 16:41 [facility] COMPARISON: CHEST SINGLE AP, July 16, 2016, 4:36. CHEST SINGLE AP, July 17, 2016, 22:17. INDICATIONS : Short of Breath. MEDICAL HISTORY : Cardiovascular disease. Hypertension. Congestive heart failure. Pulmonary embolism. SURGICAL HISTORY : Tracheostomy. ENCOUNTER: Subsequent ACUITY: 3 months PAIN SCORE: Non-responsive. LOCATION: Bilateral chest FINDINGS: A single AP semierect view of the chest was obtained and demonstrates an endotracheal tube in place w ith the tip approximately 5 cm above the oneal. The nasogastric tube remains in place with the tip n ot visualized. The study is more apical lordotic in technique. Mild streaky opacity is present at the lung bases. The heart size is mildly enlarged. CONCLUSION: No significant interval change. Joshua Evangelista MD on July 18, 2016 at 17:35 Board Certified Radiologist. This report was verified electronically. ? C of 1 RADIOLOGY CONSULTATION REPORT Ordering MD: RICHARD MYERS M.D. MR#: [id number] : 84 Copy To: STAR SANTA M.D. Loc: HIMN Age: 31 HELEN GARCIA M.D. Bed: STEVE MONTAGUE July 18, 2016 16:41 XR CHEST, SINGLE AP [facility] DEPARTMENT OF RADIOLOGY [address] [place] * [address] [place] [address] * RADIOLOGY CONSULTATION REPORT Ordering MD: RICHARD MYERS M.D. MR#: [id number] : 84 Copy To: STAR SANTA M.D. Loc: HIMN Age: 31 HELENTANA GARCIA M.D. Bed: STEVE MONTAGUE July 18, 2016 16:41 XR CHEST, SINGLE AP
[2016-07-18] MEDS: QUEtiapine FUMARATE 100 MG TAB PO SCH (19:37)
[2016-07-19] VITALS (11 sets, daily range): BP systolic 109–128; BP diastolic 56–73; PULSE 85–102; RESP 18–22; TEMP 97.7–99.2; O2SAT 92–100
[2016-07-19] MEDS: INSULIN NovoLIN REGULAR SUPPLEMENTAL SCALE SQ SCH (04:34)
[2016-07-19] MEDS: LEVOTHYROXINE SODIUM 50 MCG TAB PO SCH (04:41)
--- NOTE | 2016-07-19 06:45 | RADRPT ---
EXAM DATE/TIME: 07/19/2016 05:43 [place] COMPARISON: CHEST SINGLE AP, July 18, 2016, 16:41. INDICATIONS : Evaluate for respiratory disease. MEDICAL HISTORY : Cardiovascular disease. Hypertension. Congestive heart failure. Pulmonary embolism. SURGICAL HISTORY : Tracheostomy. ENCOUNTER: Subsequent ACUITY: 2 months PAIN SCORE: Non-responsive. LOCATION: chest FINDINGS: ET tube, and NG tube have not changed. There is moderate perivascular pulmonary edema not present pre viously. Right basilar opacity is present may be due to a combination of consolidation and or pleural effusion. CONCLUSION: Right basilar opacity is present may be due to a combination of consolidation and or pleural effusion not changed and the pulmonary edema is present not present previously. Robert Bhakta MD on July 19, 2016 at 6:42 Board Certified Radiologist. This report was verified electronically.
[2016-07-19 07:23] LABS: BASOPHIL # 0.1 TH/MM3 (0-0.2); BASOPHIL % 0.6 % (0.0-2.0); EOSINOPHIL # 0.4 TH/MM3 (0-0.4); EOSINOPHIL % 3.4 % (0.0-4.0); HEMATOCRIT 30.4 % (39.0-51.0); LYMPH % 15.6 % (9.0-44.0); LYMPHOCYTE # 1.7 TH/MM3 (1.0-4.8); MEAN CELL VOLUME 83.6 FL (80.0-100.0); MEAN CORPUSCULAR HEMOGLOBIN 26.9 PG (27.0-34.0); MEAN CORPUSCULAR HGB CONC 32.2 % (32.0-36.0); MONO % 6.4 % (0.0-8.0); PLATELET COUNT 232 TH/MM3 (150-450); RED BLOOD COUNT 3.63 MIL/MM3 (4.50-5.90); RED CELL DISTRIBUTION WIDTH 24.1 % (11.6-17.2); WHITE BLOOD COUNT 10.8 TH/MM3 (4.0-11.0)
[2016-07-19 07:29] LABS: HEMO FLAGS AUTO DIFF
[2016-07-19 07:46] LABS: ALKALINE PHOSPHATASE 130 U/L (45-117); ALT (GPT) 43 U/L (12-78); ANION GAP 9 MEQ/L (5-15); AST (GOT) 58 U/L (15-37); BICARBONATE 35.2 MEQ/L (21.0-32.0); BLOOD UREA NITROGEN 15 MG/DL (7-18); CHLORIDE 85 MEQ/L (98-107); GLOMERULAR FILTRATION RATE 88 ML/MIN (>89); SODIUM (NA) 129 MEQ/L (136-145); TOTAL BILIRUBIN ADULT 0.4 MG/DL (0.2-1.0)
[2016-07-19 07:50] LABS: POTASSIUM 2.7 MEQ/L (3.5-5.1)
[2016-07-19] MEDS ORDERED: POTASSIUM CHLOR 20 MEQ PREMIX 100 ML IV ONE (08:15)
[2016-07-19] MEDS ORDERED: POTASSIUM CHLORIDE 20 MEQ CONTROLLED RELEASE TAB PO ONE ×2 (08:15→12:00)
[2016-07-19] MEDS: RESP: BUDESONIDE 0.5 MG/2 ML NEB NEB SCH ×2 (08:57→20:46)
[2016-07-19] MEDS: FENOFIBRATE 48 MG TAB PO SCH (09:00)
[2016-07-19] MEDS: MICONAZOLE NITRATE 2% CREAM 15 GM TOP SCH ×2 (09:00→19:44)
[2016-07-19] MEDS: NYSTATIN 100,000 U/GM PWD 15 GM BTL TOPICAL SCH ×2 (09:00→19:44)
[2016-07-19] MEDS: PANTOPRAZOLE SOD 20 MG DELAYED RELEASE TAB PO SCH ×2 (09:00→19:44)
[2016-07-19] MEDS: SERTRALINE HCL 100 MG TAB PO SCH (09:02)
[2016-07-19] MEDS: DILTIAZEM HCL 90 MG TAB PO SCH ×3 (09:03→17:52)
[2016-07-19] MEDS: RIVAROXABAN 20 MG TAB PO SCH (09:03)
[2016-07-19] MEDS: FERROUS SULFATE 325 MG (65 MG ELEMENTAL IRON) TAB PO SCH (09:03)
[2016-07-19] MEDS: BUMETANIDE 1 MG TAB PO SCH (09:03)
[2016-07-19] MEDS: MONTELUKAST SODIUM 10 MG TAB PO SCH (09:04)
[2016-07-19] MEDS: ATORVASTATIN 10 MG TAB PO SCH (09:04)
[2016-07-19] MEDS: ALLOPURINOL 300 MG TAB PO SCH (09:04)
[2016-07-19] MEDS: MULTIVITAMIN TAB PO SCH (09:04)
[2016-07-19] MEDS: SODIUM CHLORIDE 0.9% FLUSH 5 ML FLUSH IVF SCH ×2 (09:04→19:37)
[2016-07-19] MEDS: CHLORHEXIDINE 0.12% (ORAL KIT) 15 ML CUP MT SCH ×2 (09:06→19:37)
[2016-07-19] MEDS: COLLAGENASE OINT 30 GM TUBE TOP SCH (09:09)
[2016-07-19 10:00] LABS: BANDS 4 % (0-6); BASOPHILS 2 % (0-2); EOSINOPHILS 2 % (0-4); MYELOCYTES 1 % (0-0); NEUTROPHIL # MANUAL DIFF 9.1 TH/MM3 (1.8-7.7); POLYS (SEG NEUTROPHILS) 79 % (16-70); WBC DIFF SAMPLE 100
[2016-07-19 10:01] LABS: PLATELET ESTIMATE SMEAR NORMAL (NORMAL); PLATELET MORPHOLOGY NORMAL (NORMAL); SCAN/DIFF FINAL DIFF MANUAL; STOMATOCYTES 1+ (NORMAL)
--- NOTE | 2016-07-19 10:22 | HHI.CCPN ---
Subjective Remarks/Hospital Course 31 year old morbidly obese (BMI 68) male with chronic respiratory failure s/p tracheostomy 4 years ago, atrial fibrillation and pulmonary embolism on Xarelto , COPD, CHF and h/o HTN. He presented from [facility] with low oxygen saturation apparently his oxygen saturation was 82% on RA. He was placed back on 6L of oxygen via his trach mask and given a breathing treatment, initially improved however he started drifting back to low 80s again. Chest x-ray showed bibasilar infiltrates and pulmonary edema. Patient was admitted to the [facility] service and was started on IV steroids IV vancomycin and Zosyn and Levaquin for healthcare associated pneumonia. After starting ACV, patient was more awake but there was a significant amount of air leak around his tracheostomy. Patient has had a Shiley 6.0 Proximal XLT, but the tugboat pilot balloon had been cut off. 05/02 the patient became acutely hypoxemic with a large cuff leak, underwent emergency trach exchange at bedside by Dr. Macias. FiO2 65% PEEP 14 05/13 Patient is on ventilator via trach, on Fentanyl infusion however he is awake and alert. On PRVC with FIO2 40%. Afebrile. 05/14 No acute events overnight. Tmax 99.8. Patient is awake, alert on ventilator via trach still requiring increase O2. On PRVC with PEEP: 10 and FIO2 70%. 05/15 Pt acutely desaturated after he was found. Saturation down to 70% on 100 % oxygen. Bag and mask ventilation carried out, with eventual improvement on oxygen saturation to 85%. Patient was placed on PC/AC mode of ventilation, with PEEP of 15 and instructed to pressure of 30. Eventually oxygen saturation improved to 95%. Lasix him today as the chest x-ray from today shows increasing bilateral infiltrate and pulmonary edema. Sputum culture will be sent 05/16 Patient is on Fentanyl and Diprivan infusion but awake and alert. Afebrile. On PC/AC with PEEP:15, IP: 22, IT:1.3 and FIO2 50% 05/17 Patient is off Diprivan and remains on Fentanyl infusion for sedation. On PC/AC with PEEP: down 10 and FIO2 40%. Afebrile. 05/18 Patient remains on ventilator via trach on PC/AC with PEEP:12, FIO2 40%, IP:22, IT:1.0. On Fentanyl infusion 05/19 No acute events overnight. On Fentanyl infusion but awake and alert. Afebrile. 05/20 Tolerating C Pap 17/12 FIO2 40, sats 98%. RSBI in 20s, appears can be weaned further. Afebrile. Speech therapy evaluated and ok for regular diet. Starting with full liquid. 05/21 Will wean PSV to 15/10. Tolerated full liquids, will advance to regular diet per speech recs. 05/22 On PSV 15/10 FIO2 40 with sats 92%. Smiling today. Glad to be eating regular food again. 05/23 No acute events overnight. Remains on CPAP with PS 15, PEEP:10 and FIO2 40 %. Afebrile. Off Fentanyl drip. Afebrile. Awake and alert. 05/24 Patient is on CPAP 06/06 with 40% FIO2. Afebrile. Awake and alert, on no sedation. 05/25 No acute events overnight. Patient was placed back on PC/AC overnight. Tolerated CPAP trials during day yesterday. Awake and alert. On no drips. Afebrile. 05/26 Afebrile. Tmax 98.6. Today the patient complained of nausea requiring Zofran. The patient has a lack of an appetite, with noted hypoglycemia early this a.m. blood glucose level 69. Patient tolerating CPAP well greater than 12 hours in the last 24 hours. 05/27 The patient tolerated CPAP for over 36 hours, O2 sat a knee 94% on FIO2 40 %. The patient had an increase in appetite. The patient continues on full liquid diet. 05/28 The patient declined physical therapy treatment, yesterday and also overnight declined to be moved by nursing staff. The patient refused dinner last evening, of note patient was reevaluated by speech therapy and can consume a heart healthy diet with thin liquids. The patient continues on physical therapy for strengthening exercises of all extremities specifically noted right upper extremity continues to be weak with gross fibrillations noted in hand and forearm. 05/29 Afebrile. No change in right upper extremity weakness. The patient was seen by neurology yesterday plan for MRI today if possible in hospital MRI, and EMG studies. No complaints overnight. Patient continues to refuse to have activities performed, movement in bed. The patient appears to be depressed, psychiatry consulted. 05/30: Patient alert awake on CPAP. Following commands. Psych agrees the patient is depressed. MRI brain no acute findings 05/31: Awake alert. on PS 15/8. EMG could not be completed due to patient becoming anxious. Otherwise no acute events reported overnight 06/01: Remains PS from 11/02. Right upper extremity weakness persists. EMG to be repeated on Friday. Will need MRI of the brachial plexus. Chest x-ray is unchanged 06/02: States that "not feeling well". Febrile to 101.5. White count increasing but still within the normal range. Pancultured. We'll request ID reevaluation. 06/03: Resting in bed on C Pap/pressure support via tracheostomy. One out of 2 sets of blood cultures sent on 06/02 positive for gram-positive cocci. 06/04: Resting in bed on mechanical ventilation via tracheostomy. Afebrile overnight. MRI brachial plexus (06/03) revealed a collection near the right subscapularis muscle, possibly an abscess. Discussed with ID, orthopedics Dr. Velazquez consulted. I discussed the case with Dr. Velazquez this morning who feels this is probably an abscess however would be difficult to access surgically and he plans to set up percutaneous drainage by interventional radiology. 06/05: Resting in bed on mechanical ventilation via tracheostomy. Remains afebrile. Reportedly IR cannot do percutaneous drainage of collection involving right subscapularis muscle. 06/06: Resting in bed on mechanical ventilation via tracheostomy. Can actually speak around the trach. Remains afebrile. Dr. Velazquez evaluated patient and is scheduling surgery for drainage of fluid collection involving the right subscapularis muscle. 06/07: Resting in bed on mechanical ventilation via tracheostomy. Awaiting surgery today. 06/08: Status post I&D of collection near right shoulder/subscapularis on 06/[address] Velazquez. This morning patient is awake and alert complained of some pain at the surgical site. Remains on mechanical ventilation on C Pap/pressure support. 06/09: Sleeping, arousable. On mechanical ventilation with C Pap/pressure support overnight. Labs pending 06/10 No acute events overnight. On CPAP with PS 12, PEEP: 8, FIO2 40%. Afebrile. 06/11 Patient remains on CPAP with PS 10, PEEP: 8 and FIO2 40%. Afebrile. 06/12: No acute events overnight. Remains on CPAP 10/5. No specific complaints 06/13: Tolerating C Pap 10 over 5. Awake and alert following commands. Hemoglobin dropped from 8.6-7.1, no obvious bleeding. Sodium 140-149. Will give 1 unit of PRBC with 1 mg IV Bumex 06/14 No acute events overnight. On CPAP with PS 10, PEEP:5 and FIO2 50%. Afebrile. 06/15 No acute events overnight. Remains on CPAP 10/5 with 40% FIO2. Afebrile. 06/16 Patient remains on ventilator via trach on CPAP with PS 10, PEEP:5 and FIO2 40%. 06/17: Resting in bed on mechanical ventilation via tracheostomy. Feeling nauseous. 06/18: OOB in reclining chair. Reporting low back and leg pain that is positional. Continued nausea, denies emesis. CPAP w PS 5 FIO2 40%. Will attempt Tpiece trial today. Discontinue Vanc + Zerbaxa today per ID 06/19: No acute events overnight. Afebrile. HTN to 160/80. CPAP with PS 10. PEEP 10 FIO2 45. Failed Tpiece trial yesterday- desaturated to mid 70s. Denies SOB/CP. Nausea is less than before. Bed is broken and patient would like the mattress to "rotate". Per nursing, they are working to fix it. 06/20: No acute events overnight. Afebrile. HTN to 145/70. CPAP with PEEP 10 FIO2 45, with saturation 93=94%. Pt has no acute complaints. Denies SOB/CP/ Nausea. Didn't know why he threw up during PT yesterday. Denies pain. Still having diarrhea (chronic years in duration issue). Was eating Pringles in bed. Per nursing, does not eat hospital food- waits for mother to bring him food. He was counseled to eat the hospital food which is healthier for him and that he needs to stop eating food brought in by his mother. 06/21: Remains on mechanical ventilation, CPAP with pressure support. 06/22: On mechanical ventilation on C Pap with pressure support. Denies any nausea or abdominal pain. Appears comfortable. 06/23: Resting in bed on mechanical ventilation with C Pap/pressure support +10/ +5. Denies any shortness of breath denies any abdominal pain or nausea currently. 06/24: Refusing to get OOB with physical therapy today. I had a long discussion with the patient about the fact that he has been inpatient for months now and he is severely deconditioned. He must get out of bed with PT to clinically improve, and deconditioning is a major factor in his chronic respiratory failure. He denies chest pain or SOB. does endorse some nausea today. 06/25: tolerated 4 hours OOB yesterday with 4 hours of trach collar. plan to go 6 hours today. 06/26: tolerated OOB to chair 5 hours yesterday but only 1.5hr of trach collar due to hypoxia. 06/27: tolerated OOB to chair for 6 hours yesterday and almost 5 hours of trach collar. daily, he continues to be very resistant to participating in PT and getting OOB. He again asks if he can lay in bed today. 06/28: tolerated 6 hours of trach collar yesterday. OOB for almost 8 hours. 06/29: continues to tolerate daily trach collar trials. OOB for 8 hours again yesterday. 06/30: tolerated 8 hours of trach collar yesterday. OOB for 7 hours. can do trach collar as tolerated. he continues to make attempts to refuse physical therapy and does not wish to participate in his care. 07/01: no changes. did well with 8 hours of trach collar and 8-9 hours of OOB. will attempt to stand and possibly walk in place today. this certainly is a large undertaking given how deconditioned he is, but I think the mobilization will help to continue our rehabilitation efforts. will be taxing on medical staff to physically assist him. This is likely something we can only do on a weekly basis. 07/02: took 3 steps yesterday (first time out of bed in almost 3 months). otherwise, tolerating daily t-piece with nightly CPAP. plan for OOB and steps again today. trach collar as tolerated. diamox x 3 doses for worsening contraction alkalosis. net -900cc/24h. 07/03: OOB and a few steps again yesterday. trying to push him to longer t-piece intervals with fewer rests on CPAP. OOB all day again today. net euvolemic yesterday. lab holiday today. 07/04: to chair today. trach collar as tolerated. I really think he could go most of the night if not all night on trach collar, but he keeps insisting on going back on the vent to rest. brought to my attention by family practice team for ankle skin breakdown. agree with podiatry consult. 07/05: OOB to chair again today. tolerated trach collar yesterday. CPAP at night. keeps asking to go back on rate on vent overnight. I do not think medically he needs this. podiatry saw patient and recommended dressing and elevation for foot. 07/06: on trach collar all night, not on the vent. this is a huge improvement. K 6.0 on bmp this AM, but Cr at baseline. will recheck. 07/07: remains off the vent on trach collar. weaning fio2. OOB again. recheck K yesterday 6.0--> 3.7, so likely spurious lab. I think tomorrow if he remains on trach collar, he is safe to go back to his facility. 07/08: No acute issues overnight. Plans for transfer to his facility with case management assistance. 07/09: Afebrile.The patient continues on trach collar. After readjustment in the bed early this a.m., the patient required increased O2 requirements to FiO2 of 90% which was decreased back down to 70% within an hour. No acute respiratory distress was noted. 07/10: Afebrile.No acute issues overnight. Patient continues on trach collar without any issues,O2 at 6-8 L/m. 07/11: Noted anterior left chest, appearance of fungal skin infection, spreading despite use of 2 antifungal creams. No acute issues overnight, awaiting peer-to -peer phone conversation with LTAC facility regarding necessity secondary to oxygen usage. 07/12: continues to make slow clinical improvements. had to go back to 100% fio2 last night, but remained off mechanical ventilatory support. [id number] convo today, I do think he would wean back to baseline fio2 within 2-3 weeks, given how much he has improved over the last few weeks. 07/13: No changes. continues to improve slowly. fio2 70% during the day, 90% at night. weaning fio2 during the day today. OOB to chair for most of the day. awaiting decision by insurance company for possible LTAC. 07/14: Remains on TP, now on 98% oxygen. Chest x-ray pending. No report of increased secretions, no fever 07/15: Sitting up and stretches chair today. Breathing more comfortably. Chest x-ray yesterday showed probable worsening right lower lobe infiltrate. Repeat cultures pending. FiO2 had been weaned down to 70% 07/16: Sitting up in chair breathing comfortably. FiO2 down to 50%. Will increase daily up to chair time. No fever reported. Sputum culture from growing Proteus, started on Rocephin SUBJECTIVE 07/17: Patient was sitting up in chair eating break fast, Suddenly pointed to the trach and lost consciousness, HR dropped to 28, oxygen saturation was unremarkable. Tracheostomy cuff was up-not deflated. Unclear whether he aspirated. Place back on full mechanical ventilation with 100% FiO2 16 of PEEP, saturation eventually recorded at 72%, gradually improved to 86. Patient remains unconscious, propofol started for ventilator synchrony. ABG showed pH 7.3 PCO2 of 73 PO2 53 and saturation 83%. Chest x-rays pending at this time 07/18: Patient is a acute hypoxemic respiratory failure yesterday while sitting up and stretches chair. Emergently, placed on mechanical ventilation, stat chest x-ray showed large right sided pneumothorax. IR placed a right sided chest tube with reexpansion of the lung. Unfortunately, patient accidentally dislodged chest tube yesterday evening. Chest x-ray following this did not show any pneumothorax. Currently patient has good sats. Mentation is back to normal, we'll start vent weaning with C Pap trials 07/19: Remains on PRBC mode of ventilation. Oxygenation 100% on FiO2 of 35%. Chest x-ray shows persistent right lower lobe infiltrate but no pneumothorax. We'll start C Pap trials to T piece Objective Vital Signs Date Time Temp Pulse Resp B/P Pulse Ox O2 Delivery O2 Flow Rate FiO2 07/19/16 08:56 35 07/19/16 08:53 99 07/19/16 04:00 99.1 91 22 109/56 07/18/16 20:00 Mechanical Ventilator 07/17/16 20:00 10.00 Intake and Output 07/18/16 07/18/16 07/19/16 08:00 16:00 00:00 Intake Total 225 ml 525 ml 300 ml Output Total 275 ml 300 ml 350 ml Balance -50 ml 225 ml -50 ml Result Diagram: 07/19/16 0651 07/19/16 0651 Imaging MRI 06/20/16: No official reading. Preliminary reading suggests periventricular white matter changes at basal ganglia and no evidence ischemia CXR 06/17/16: Poor penetration. Rotated image. Unable to visualize lung bases. Possible atelectasis vs infiltrate R worse than L. Objective Remarks GEN: 31yo on PRVC mode of ventilation, wide awake on the vent SKIN: Warm and dry. Blanching erythematous lesions on the anterior chest. HEAD: Normocephalic. EYES: No scleral icterus. No injection or drainage. NECK: Obese with large neck circumference, trachea midline. Shiley 6.0 Proximal XLT, (new trach placed 05/02/16) CV: Normal rate, regular rhythm. RESP: On mechanical ventilation, Breath sounds diminished significantly bilaterally. GI: Abdomen soft, obese, non-tender, nondistended. MSK: No cyanosis, or edema. Pedal edema. Neuro: Wakes up easily. Follows commands. A/P Assessment and Plan ASSESSMENT Acute hypoxemia, respiratory failure Large right sided pneumothorax, 07/17/16 Acute and chronic hypercapnic and hypoxemic respiratory failure (Shiley 6.0 Proximal XLT) CO2 narcosis Healthcare associated pneumonia MDR Pseudomonas, now with Proteus 07/14/16 Enterococcal bacteremia Pseudomonas bacteremia Collection near right subscapularis muscle(On MRI 06/03) - hematoma status post I &D on 06/07 Sepsis CHF exacerbation Tracheostomy tugboat pilot balloon damage -status post exchange with new Shiley 6.0 Proximal XLT 05/02/16 Probable right brachial plexus injury COPD/obesity hypoventilation syndrome Morbid Obesity BMI 60-69 History of pulmonary embolism 4 years ago Chronic atrial fibrillation Anxiety CHF (Echo 2013 EF 40-45%; ECHO 08/2015 showing a grossly normal systolic function) Hypertension Hypothyroidism Depression PLAN NEURO: Acute encephalopathy ? hypoxia and hypercapnia induced (07/17/16) now resolved Critical care polyneuropathy Right upper extremity weakness 05/21-possibly secondary to nerve compression, C6 , C7 (brachial plexus) Pain, Anxiety, Depression -On propofol for ventilator synchrony given severe hypoxemia, since patient has improved, DC Propofol -Clinically had right brachial plexus involvement. MRI of brachial plexus on 06/03 revealed collection involving right subscapularis muscle- s/p I & D on 06/[address] Velazquez. -Neurology Dr. Cheek-MRI brain, C spine no acute findings. -Continued PT daily, with strengthening exercises -Continue Seroquel 100mg HS. Continue Zoloft 100mg daily -Tylenol 625mg pain 1-6, Percocet 10/325 pain 7-10 RESP: Acute on chronic hypercapnic and hypoxemic respiratory failure, acute exacerbation today 07/17/16 Large right sided pneumothorax status post chest tube 07/17/16 Acute lung derecruitment 05/15 with hypoxia Worsening hypoxia 07/14/16 probable lung de-recruitment Healthcare associated pneumonia Tracheostomy tugboat pilot balloon damage (Shiley 6.0 Proximal XLT) s/p new trach placement 05/02 Chronic Respiratory Failure s/p Tracheostomy 4 years ago COPD/obesity hypoventilation syndrome History of pulmonary embolism 4 years ago Leukocytosis-resolved Pulmonary edema -Developed large right sided pneumothorax, 07/17/16. IR to place chest tube with resolution of pneumo, accidentally dislodged chest tube overnight -CXR 07/19 No PTX. Persistent RLL infiltrate -Full [facility] [place] support with PCV RR 18 insp pres 30. -Restart C Pap trials, Place on TP during day time and CPAP 10/5 at night -s/p Bronchoscopy 05/11 - BAL results negative -Aggressive Pulm toilet, trach care -Keep sat >88%. Continue DuoNeb q6h REYES + q2h PRN, Pulmicort BID, Singulair 10mg daily CV: CHF exacerbation Pulmonary edema Paroxysmal atrial fibrillation (chronic) Hyperlipidemia -Transient bradycardia secondary to hypoxia -Cardizem 90mg QID resume today 07/18, Continue Bumex 1mg daily PO, Lipitor 10g daily, TriCor 40mg by mouth daily -Continue on home Xarelto. -Levophed if needed to keep map above 65 GI: Super morbid obesity with BMI of 64 Nausea GERD -Resume by mouth diet -Liver US 06/03: Fatty liver, sludge in gallbladder, splenomegaly, no mechanical obstruction of bile duct noted. -Protonix 20mg BID. Zofran prn for nausea. -Multivitamin daily FEN/RENAL: Hypokalemia Metabolic alkalosis - Monitor renal function , I/O, electrolytes replacement per protocol. - Bumex 1mg PO daily, KCL 40meq Q12hr - Continue [place] ID: Healthcare associated pneumonia Sepsis New fever-resolved MDRO Cellulitis right arm-resolved Leukocytosis-resolved Enterococcal faecalis bacteremia, Pseudomonas bacteremia (06/02, 06/03) -Wound culture Pseudomonas MDR 04/27 -Sputum culture-Pseudomonas MDR- 04/27 -Urine cx: Proteus Mirabilis 05/05 -Sputum cx: Providencia 05/05, rpt sputum 07/14/16 Proteus -Bronchoscopy and re-culture 05/10- NG -Wound cx: Proteus, Pseudomonas, Group D Enterococcus- 05/13 -Sputum cx- NG- 05/15 -Blood culture: aerobic and anaerobic bottles - enterococcus faecalis, pseudomonas aeruginosa 06/02, 06/03 -Urine culture: pseudomonas aeruginosa- 06/02 -Wound culture: pseudomonas aeruginosa- 06/02 -Sputum culture: Pseudomonas- 06/02 -Dr. Velazquez performed drainage of collection surgically on 06/07- likely hematoma -Stopped IV Vanc and Zerbaxa on 06/18. (MDR pseudomonas in blood cultures) -Colistin nebs stopped 06/27 -Continue Rocephin for Proteus in sputum 07/16/16 HEME: History of PE on chronic anticoagulation with Xarelto Iron deficiency anemia and anemia of critical illness. -Monitor CBC, transfused 1U PRBC 06/13 -Xarelto for PE 4 yrs ago. Continue Xarelto. -Ferrous sulfate 300 mg/q day ENDO: Hypothyroidism -On SSI (Low scale) -Continue levothyroxine 50 mcg po daily -Free T4 1.52 MSK: -Continue physical therapy PROPH: -Lower extremity SCDs (L leg only, R ankle cellulitis), continue home xarelto -GI prophylaxis- Protonix 20mg BID LINES: - PICC line RUE- No DVT on US 05/02 - removed on 06/03. PIV 's x 2 - [place] catheter removed 07/05. we are using rectal bag to collect urine in an effort to keep sacral and groin area clean and free of skin breakdown. CCT 35 MIN Continue ICU care. Evaluate for transfer to early next week. Jaquan Zelaya MD Jul 19, 2016 10:22
[2016-07-19] MEDS: POTASSIUM CHLORIDE 20 MEQ CONTROLLED RELEASE TAB PO SCH ×2 (11:00→20:56)
--- NOTE | 2016-07-19 11:37 | HHI.FPPN ---
Subjective Remarks Overnight, TREVA. AFVSS. P90. F35%. Breathing above vent settings R18, TV 710. Will pursue CPAP to T piece trials. Eating, voiding, stooling, w/o difficulty. OOB with assistance. Pt has no acute complaints. Denies SOB, CP, abd pain. Objective Vitals Vital Signs Date Time Temp Pulse Resp B/P Pulse Ox O2 Delivery O2 Flow Rate FiO2 07/19/16 08:56 35 07/19/16 08:53 99 35 07/19/16 08:00 96 Mechanical Ventilator 40 07/19/16 08:00 35 07/19/16 08:00 93 07/19/16 04:00 35 07/19/16 04:00 99.1 91 22 109/56 92 07/19/16 03:41 98 35 07/19/16 00:00 97.7 85 22 121/63 92 07/19/16 00:00 35 07/19/16 00:00 85 07/18/16 23:50 97 35 07/18/16 20:03 100 35 07/18/16 20:00 98.4 87 21 133/63 92 07/18/16 20:00 87 07/18/16 20:00 97 Mechanical Ventilator 35 07/18/16 20:00 35 07/18/16 16:00 40 07/18/16 13:21 18 07/18/16 12:03 100 40 07/18/16 12:00 40 I/O 07/18/16 07/18/16 07/18/16 07/19/16 07/19/16 07/19/16 07:00 15:00 23:00 07:00 15:00 23:00 Intake Total 225 ml 525 ml 300 ml 250 ml Output Total 275 ml 300 ml 350 ml 325 ml Balance -50 ml 225 ml -50 ml -75 ml IV Total 225 ml 325 ml 175 ml 125 ml Other 200 ml 125 ml 125 ml Output Urine Total 275 ml 300 ml 350 ml 325 ml # Bowel Movements 1 Result Diagram: 07/19/1651 07/19/16 0651 Imaging See A/P for pertinent Objective Remarks CONST: Morbidly obese male, NAD. DERM: No acute changes to erythematous fungal rash on bilateral arms, upper torso. Not spreading, but also not receding. Well-healing scar R shoulder R lat malleolus with 1.5 x 1.5 cm skin break down. Area in bandage- c/d/i. Numerous skin folds 2/2 habitus. Dry, flaking skin on feet. Bruising on abdomen HEENT: Tracheotomy site c/d/i. Poor dentition. MMM CV: Distant heart sounds. RRR. RESP: Anterior lung CTAB. No wheezing. B/l breath sounds. GI: NDNT. MSK: External rotation of RLE and LLE NEURO: CN grossly normal. PSYCH: Appears clean/improved mood. Poor insight. Procedures 04/24- Started ventilation 05/02- Emergency Trach Exchange 06/03- PICC line removed 06/07- Debridement of RUE abscess (Dr. Velazquez), RUE drain placed. 06/10- RUE drain removal 07/05- Removed from ventilation, continuous T-piece, remained off ventilation since 07/17- Decompensated, tension pneumo, returned to ventilator, chest tube placed A/P Assessment and Plan 31yo male with morbid obesity (BMI 68 on admit) admitted 04/24/16 for acute on chronic respiratory failure. Discharge Planning Placement pending vital signs stable. Possibly tomorrow 07/19/16- will defer to CC. Case management working on placement since 07/08/15. 07/18- Talked to case. The SNF will accept pt when stable pending letter of acceptance they are working on 07/17- Touched base w case management- called yesterday, called this AM, waiting to hear back from [facility]. Dr. Brown did peer to peer with [facility] for placement at [facility] (refused to cover cost of admission, SNF not in their approved list) Dr. Morgan, , called insurance 07/10/12- did not get a response. Denied placement to [facility]. Denied placement [facility] (can accommodate up to 6L oxygen, pt using 8L) DW: Dr. Watts, Dr Mccain Problem List: (1) PLAN Status: Chronic Plan: Rn Outpatient Surgery following. Hx ID, General surgery, podiatry, orthopedics, neurologic, rehab medicine consult 07/19- Continue Rocephin (07/16- ) for PNA. Consider d/c after ?10? days- discuss with team. CPAP to T piece trials, as tolerated. Chest tube out. Diet 1700cal HH. Continue d/c w case help. Consider add additional fungal creme tmmr. 07/18- wean from vent to CPAP as tolerated. Cardiazem decreased to TID. Continue Rocephin (07/16- ) for PNA NEURO/PSYCH CO2 narcosis: Resolved with oxygen supplementation Polyneuropathy of Critical illness: Continue PT, discharge to SNF RUE weakness/pain & Cervical neuropathy: Continue PT/OT, Frequent rotations, OOB to chair, Ibuprofen PRN pain Anxiety/MDD: Continue Seroquel 100mg HS, Zoloft 200mg daily Insomnia: Zolpidem 5mg HS Disordered eating: Adhere to dietary recommendations: 1700 calorie heart healthy diet RESP: Tension Pneumothorax 07/17/16- Chest tube removal per CC, serial CXR show improvement PNA 07/16/16: See ID Acute hypercapnic and hypoxemic respiratory failure: Inially secondary tracheostomy leak. S/p trach replacement 05/02. Course cx by HCAP and bacteremia. Appeared resolved, weaned from ventilator/CPAP 07/05/15 and seeking placement. However, decompensated 07/17/16 after tension pneumothorax. Tx bronchodilators, wean from vent as tolerated Chronic Respiratory Failure s/p Tracheostomy (2011): Aggressive pulmonary toliet , trach care, O2 supplementation, as needed for O2 saturation 90%+ Healthcare associated pneumonia: Resolved, see ID Pickwickian Syndrome: Oxygen support PRN for saturation 92%+, wean as tolerated History of pulmonary embolism 2012: Continue home Xarelto Pulmonary edema: diuresis PRN (see CHF) CV: CHF: Suspected HFrEF. Unable to confirm via ECHO (04/25). BNP elevated, downtrended. Keep MAP>65mmHg. Bumex 1mg daily PO Paroxysmal atrial fibrillation (history of, currently SNR): Cardiazem 90mg QID, Xarelto GI/LIVER Super morbid obesity with BMI 60-69 (on admission), 50-59 (current): Wt 480lbs ( 04/25/16). Wt 408 lbs (07/18/15). Per nutrition- 1700c heart healthy diet, no outside food Nausea- GERD vs gastroparesis vs psychosomatic. Chronic- waxing and waning, Zofran ODT q4h PRN, Protonix 20mg BID Hyperlipidemia: Lipitor 10g daily, TriCor 40mg by mouth daily Episodes of food refusal, Adhere to hospital diet Splenomegaly, Incidental finding. Continue to monitor Fatty Liver Disease: per Liver US 06/03/16, Lose weight to healthy weight BMI <25 Diarrhea: Chronic. Present prior to admission. C. difficile testing negative. Ddx: poor diet vs medication side effect. Adhere to hospital diet, no outside food, continue to monitor FEN/RENAL: Chronic Hypokalemia: KCL 40 meq BID replacement REYES + additional per ICU protocol Urinary incontinence: Unable to use bedside commode secondary to body habitus. [place] PRN Hypomagnesemia: Replete per ICU protocol ID/DERM PNA 07/16/16: Continue Rocephin (07/16- ). Sputum culture (07/14) with proteus. CXR (07/16): No change from previous. Fungal dermatitis: Persistent s/p Diflucan 07/11- 07/16. Continue nystatin powder , miconazole creme Resolved: Bacteremia- Enterococcal faecalis bacteremia, Pseudomonas bacteremia ( 06/02, 06/03) HCAP, Sepsis, Fever, Yeast UTI, Hx MDRO, Cellulitis R arm, Leukocytosis Cultures -Sputum culture- 07/14- Provencia -Blood culture: aerobic and anaerobic bottles - enterococcus faecalis, pseudomonas aeruginosa 06/02, 06/03 -Urine culture: pseudomonas aeruginosa- 06/02 -Wound culture: pseudomonas aeruginosa- 06/02 -Sputum culture: Pseudomonas- 06/02 -Sputum cx- NG- 05/15 -Wound cx: Proteus, Pseudomonas, Group D Enterococcus- 05/13 -Bronchoscopy and re-culture 05/10- NG -Wound culture Pseudomonas MDR 04/27 -Sputum culture-Pseudomonas MDR- 04/27 -Urine cx: Proteus Mirabilis 05/05 -Sputum cx: Providencia 05/05 Abx History Zosyn 4.5gm IV q6h (04/24 - 04/29) Levaquin 750mg IV q24h (04/24-04/30) Zerbaxa 1.5 g IV q8h (04/29 - 05/07) Vancomycin IV (04/24 - 05/06) Ceftriaxone IV (05/07 - 05/25) Linezolid 600 mg PO BID (05/06 - 05/13) Zosyn 3.375 q6h (06/04- 06/05) Vancomycin IV daily goal trough 15-20, (06/03 -06/18) Zerbaxa IV q8h (06/05-06/18) Rocephin (07/16- ) HEME: History of PE (2011)- continue Xarelto Normocytic Anemia- iron deficiency vs anemia of critical illness, continue Ferrous sulfate 325mg PO daily ENDO: Hypothyroidism- 05/27/16- TSH low, free T4 grossly wnl. Continue Synthroid 50 mcg PO daily Hyperglycemia of Critical care: On SSI (Low scale) MSK RUE Weakness: secondary to hematoma vs C6/C7 neuropathy. L hemispheric pathology and seizure r/o via imaging. Unable to tolerate EMG. Venous Doppler RUE 05/28 negative for DVT. Improving Aggressive PT: RUE strength training. Ibuprofen 600mg q6h PRN pain control Deconditioned: RLE strengthening internal rotation, OOB to chair, feed self Hematoma: S/p I&D by Dr. Velazquez (06/07/16). Small hematoma inconsistent with large imaging suggested per MRI brachial plexus. Resolved. Consider re-imaging if worsens R ankle decubitus ulcer: present on admission, worsened. Wound Cx (07/05): Providencia stuartii. Podiatry, Wound Care consulted. Daily dressing changes Decubitus ulcer: Offload pressure Gout: Allopurinol 300mg daily Hematoma: Resolved s/p I&D, re-image if RUE weakness/pain worsens Imaging: - US negative for DVT (05/28) - MRI brain (04/28) no acute intracranial process - MRI C-spine (05/29): grossly wnl - EEG (05/29): diffuse mild encephalopathy vs normal Stage 2 sleep - MRI brachial plexus (06/03): "Complex multiloculated soft tissue and cystic mass 5.5 x 6 x 7.8 cm involving subscapularis muscle along anterior R scapula - Pathology report (06/07): fragments of blood clot admixed with few minute fragments of adipose and skeletal muscle tissue (2) Acute on chronic respiratory failure with hypoxia and hypercapnia Status: Resolved (3) Fungal infection Status: Acute (4) Nausea Status: Chronic (5) Hematoma Status: Acute (6) CHF (congestive heart failure) Status: Chronic (7) Yeast UTI Status: Resolved (8) Moderate protein malnutrition Status: Chronic (9) Pressure ulcer of right leg, stage 2 Status: Chronic (10) Paroxysmal a-fib Status: Chronic (11) MDD (major depressive disorder) Status: Chronic (12) History of DVT (deep vein thrombosis) Status: Chronic (13) Hypothyroidism Status: Chronic (14) On mechanically assisted ventilation Status: Chronic (15) Normocytic anemia Status: Chronic (16) Gout Status: Chronic Plan: see plan above (17) Hyperlipidemia Status: Chronic Plan: see plan above (18) Pneumonia Status: Acute (19) Hypomagnesemia Status: Resolved (20) Chronic respiratory failure Status: Chronic (21) Hypokalemia Status: Chronic (22) Diarrhea Status: Chronic (23) Morbid obesity with BMI of 50.0-59.9, adult Status: Chronic (24) Pickwickian syndrome Status: Chronic (25) Sacral decubitus ulcer Status: Chronic (26) Urinary incontinence due to immobility Status: Chronic (27) NAFLD (nonalcoholic fatty liver disease) Status: Chronic (28) Splenomegaly Status: Chronic (29) Somatic complaints, multiple Status: Chronic (30) Pulmonary edema Status: Chronic (31) History of pulmonary embolus (PE) Status: Chronic (32) CO2 narcosis Status: Resolved (33) Polyneuropathy associated with critical illness Status: Chronic (34) Weakness of right upper extremity Status: Chronic (35) Cervical plexus neuropathy Status: Chronic (36) Anxiety Status: Chronic (37) Insomnia Status: Chronic (38) Disordered eating Status: Chronic (39) Tracheostomy present Status: Chronic (40) HTN (hypertension) Status: Chronic (41) HCAP (healthcare-associated pneumonia) Status: Resolved (42) Cellulitis of chest wall Status: Resolved (43) Stress hyperglycemia Status: Resolved (44) Bacteremia Status: Resolved Problem Qualifiers (1) CHF (congestive heart failure): Qualified Code: I50.9 - Acute on chronic congestive heart failure, unspecified congestive heart failure type (2) MDD (major depressive disorder): Qualified Code: F33.2 - Severe episode of recurrent major depressive disorder, without psychotic features (3) Hypothyroidism: Qualified Code: E03.9 - Hypothyroidism, unspecified type (4) Chronic respiratory failure: Qualified Code: J96.10 - Chronic respiratory failure, unspecified whether with hypoxia or hypercapnia (5) Insomnia: Qualified Code: F51.04 - Psychophysiological insomnia (6) HTN (hypertension): Qualified Code: I10 - Essential hypertension Holley Baires MD R1 Jul 19, 2016 11:37
[2016-07-19] MEDS ORDERED: ONDA4TAB7 PO (12:34)
[2016-07-19] MEDS ORDERED: PANT20 PO (12:34)
[2016-07-19] MEDS ORDERED: DILT90TA PO (12:34)
[2016-07-19] MEDS ORDERED: NYST10007 TOPICAL (12:34)
--- NOTE | 2016-07-19 12:44 | HHI.DS ---
Discharge Summary Admission Date Apr 24, 2016 at 14:20 Discharge Date: Jul 19, 2016 Admitting Diagnosis Acute respiratory failure (1) PLAN Diagnosis: Principal Plan: [employer] following. Hx ID, General surgery, podiatry, orthopedics, neurologic, rehab medicine consult 07/19- Rocephin (07/16-07/19). Will d/c with PO abx . CXR (07/19)- R atelectasis vs consolidation. Afebrile. No leukocytosis. CPAP to T piece trials, as tolerated. Chest tube out. Diet 1700cal HH. Continue d/c w case help. 07/18- wean from vent to CPAP as tolerated. Cardiazem decreased to TID. Continue Rocephin (07/16- ) for ?PNA NEURO/PSYCH CO2 narcosis: Resolved with oxygen supplementation Polyneuropathy of Critical illness: Continue PT, discharge to SNF RUE weakness/pain & Cervical neuropathy: Continue PT/OT, Frequent rotations, OOB to chair, Ibuprofen PRN pain Anxiety/MDD: Continue Seroquel 100mg HS, Zoloft 200mg daily Insomnia: Zolpidem 5mg HS Disordered eating: Adhere to dietary recommendations: 1700 calorie heart healthy diet RESP: Tension Pneumothorax 07/17/16- Chest tube removal per CC, serial CXR show improvement PNA 07/16/16: See ID Acute hypercapnic and hypoxemic respiratory failure: Inially secondary tracheostomy leak. S/p trach replacement 05/02. Course cx by HCAP and bacteremia. Appeared resolved, weaned from ventilator/CPAP 07/05/15 and [address] placement. However, decompensated 07/17/16 after tension pneumothorax. Tx bronchodilators, wean from vent as tolerated Chronic Respiratory Failure s/p Tracheostomy (2011): Aggressive pulmonary toliet , trach care, O2 supplementation, as needed for O2 saturation 90%+ Healthcare associated pneumonia: Resolved, see ID Pickwickian Syndrome: Oxygen support PRN for saturation 92%+, wean as tolerated History of pulmonary embolism 2011: Continue home Xarelto Pulmonary edema: diuresis PRN (see CHF) CV: CHF: Suspected HFrEF. Unable to confirm via ECHO (04/25). BNP elevated, downtrended. Keep MAP>65mmHg. Bumex 1mg daily PO Paroxysmal atrial fibrillation (history of, currently SNR): Cardiazem 90mg QID, Xarelto GI/LIVER Super morbid obesity with BMI 60-69 (on admission), 50-59 (current): Wt 480lbs ( 04/25/16). Wt 408 lbs (07/18/15). Per nutrition- 1700c heart healthy diet, no outside food Nausea- GERD vs gastroparesis vs psychosomatic. Chronic- waxing and waning, Zofran ODT q4h PRN, Protonix 20mg BID Hyperlipidemia: Lipitor 10g daily, TriCor 40mg by mouth daily Episodes of food refusal, Adhere to hospital diet Splenomegaly, Incidental finding. Continue to monitor Fatty Liver Disease: per Liver US 06/03/16, Lose weight to healthy weight BMI <25 Diarrhea: Chronic. Present prior to admission. C. difficile testing negative. Ddx: poor diet vs medication side effect. Adhere to hospital diet, no outside food, continue to monitor FEN/RENAL: Chronic Hypokalemia: KCL 40 meq BID replacement REYES + additional per ICU protocol Urinary incontinence: Unable to use bedside commode secondary to body habitus. Milan PRN Hypomagnesemia: Replete per ICU protocol ID/DERM PNA 07/16/16: Rocephin (07/16-07/19). Will d/c with PO abx. Sputum culture (07/14 ) with proteus. CXR (07/16): No change from previous. CXR (07/19)- R atelectesis vs consolidation. Fungal dermatitis: Persistent s/p Diflucan 07/11- 07/16. Continue nystatin powder , miconazole creme Resolved: Bacteremia- Enterococcal faecalis bacteremia, Pseudomonas bacteremia ( 06/02, 06/03) HCAP, Sepsis, Fever, Yeast UTI, Hx MDRO, Cellulitis R arm, Leukocytosis Cultures -Sputum culture- 07/14- Provencia -Blood culture: aerobic and anaerobic bottles - enterococcus faecalis, pseudomonas aeruginosa 06/02, 06/03 -Urine culture: pseudomonas aeruginosa- 06/02 -Wound culture: pseudomonas aeruginosa- 06/02 -Sputum culture: Pseudomonas- 06/02 -Sputum cx- NG- 05/15 -Wound cx: Proteus, Pseudomonas, Group D Enterococcus- 05/13 -Bronchoscopy and re-culture 05/10- NG -Wound culture Pseudomonas MDR 04/27 -Sputum culture-Pseudomonas MDR- 04/27 -Urine cx: Proteus Mirabilis 05/05 -Sputum cx: Providencia 05/05 Abx History Zosyn 4.5gm IV q6h (04/24 - 04/29) Levaquin 750mg IV q24h (04/24-04/30) Zerbaxa 1.5 g IV q8h (04/29 - 05/07) Vancomycin IV (04/24 - 05/06) Ceftriaxone IV (05/07 - 05/25) Linezolid 600 mg PO BID (05/06 - 05/13) Zosyn 3.375 q6h (06/04- 06/05) Vancomycin IV daily goal trough 15-20, (06/03 -06/18) Zerbaxa IV q8h (06/05-06/18) Rocephin (07/16- ) HEME: History of PE (2011)- continue Xarelto Normocytic Anemia- iron deficiency vs anemia of critical illness, continue Ferrous sulfate 325mg PO daily ENDO: Hypothyroidism- 05/27/16- TSH low, free T4 grossly wnl. Continue Synthroid 50 mcg PO daily Hyperglycemia of Critical care: On SSI (Low scale) MSK RUE Weakness: secondary to hematoma vs C6/C7 neuropathy. L hemispheric pathology and seizure r/o via imaging. Unable to tolerate EMG. Venous Doppler RUE 05/28 negative for DVT. Improving Aggressive PT: RUE strength training. Ibuprofen 600mg q6h PRN pain control Deconditioned: RLE strengthening internal rotation, OOB to chair, feed self Hematoma: S/p I&D by Dr. Velazquez (06/07/16). Small hematoma inconsistent with large imaging suggested per MRI brachial plexus. Resolved. Consider re-imaging if worsens R ankle decubitus ulcer: present on admission, worsened. Wound Cx (07/05): Providencia stuartii. Podiatry, Wound Care consulted. Daily dressing changes Decubitus ulcer: Offload pressure Gout: Allopurinol 300mg daily Hematoma: Resolved s/p I&D, re-image if RUE weakness/pain worsens Imaging: - US negative for DVT (05/28) - MRI brain (04/28) no acute intracranial process - MRI C-spine (05/29): grossly wnl - EEG (05/29): diffuse mild encephalopathy vs normal Stage 2 sleep - MRI brachial plexus (06/03): "Complex multiloculated soft tissue and cystic mass 5.5 x 6 x 7.8 cm involving subscapularis muscle along anterior R scapula - Pathology report (06/07): fragments of blood clot admixed with few minute fragments of adipose and skeletal muscle tissue (2) Acute on chronic respiratory failure with hypoxia and hypercapnia Diagnosis: Principal (3) Fungal infection Diagnosis: Principal (4) Nausea Diagnosis: Principal (5) Hematoma Diagnosis: Principal (6) CHF (congestive heart failure) Diagnosis: Principal (7) Yeast UTI Diagnosis: Principal (8) Moderate protein malnutrition Diagnosis: Principal (9) Pressure ulcer of right leg, stage 2 Diagnosis: Principal (10) Paroxysmal a-fib Diagnosis: Principal (11) MDD (major depressive disorder) (12) History of DVT (deep vein thrombosis) Diagnosis: Principal (13) Hypothyroidism Diagnosis: Secondary (14) On mechanically assisted ventilation Diagnosis: Principal (15) Normocytic anemia Diagnosis: Secondary (16) Gout Diagnosis: Secondary Plan: see plan above (17) Hyperlipidemia Diagnosis: Secondary Plan: see plan above (18) Pneumonia Diagnosis: Principal (19) Hypomagnesemia Diagnosis: Secondary (20) Chronic respiratory failure Diagnosis: Principal (21) Hypokalemia Diagnosis: Principal (22) Diarrhea Diagnosis: Principal (23) Morbid obesity with BMI of 50.0-59.9, adult Diagnosis: Principal (24) Pickwickian syndrome Diagnosis: Principal (25) Sacral decubitus ulcer Diagnosis: Principal (26) Urinary incontinence due to immobility Diagnosis: Principal (27) NAFLD (nonalcoholic fatty liver disease) Diagnosis: Secondary (28) Splenomegaly Diagnosis: Secondary (29) Somatic complaints, multiple Diagnosis: Principal (30) Pulmonary edema Diagnosis: Principal (31) History of pulmonary embolus (PE) Diagnosis: Principal (32) CO2 narcosis Diagnosis: Principal (33) Polyneuropathy associated with critical illness Diagnosis: Principal (34) Weakness of right upper extremity Diagnosis: Principal (35) Cervical plexus neuropathy Diagnosis: Principal (36) Anxiety Diagnosis: Secondary (37) Insomnia Diagnosis: Secondary (38) Disordered eating Diagnosis: Principal (39) Tracheostomy present Diagnosis: Principal (40) HTN (hypertension) Diagnosis: Secondary (41) HCAP (healthcare-associated pneumonia) Diagnosis: Principal (42) Cellulitis of chest wall Diagnosis: Principal (43) Stress hyperglycemia Diagnosis: Secondary (44) Bacteremia Diagnosis: Principal Procedures 04/24- Started ventilation 05/02- Emergency Trach Exchange 06/03- PICC line removed 06/07- Debridement of RUE abscess (Dr. Velazquez), RUE drain placed. 06/10- RUE drain removal 07/05- Removed from ventilation, continuous T-piece, remained off ventilation since 07/17- Decompensated, tension pneumo, returned to ventilator, chest tube placed 07/18- Chest tube removed. Weaned from ventilation 07/19- tolerating CPAP Brief History Wilfrido Fortune is a 31 year old male with a PMH of chronic respiratory failure s/ p tracheostomy 4 years ago, morbid obesity with BMI 67.6, atrial fibrillation and pulmonary embolism on Xarelto, CHF last ECHO 09/18/2015 showing a grossly normal systolic function with no definitive EF as it was difficult to assess, ECHO on 05/2014 with EF of 40-45% with mildly dilated left atrium, and h/o HTN. Long-term rehab at [facility] and [facility] and presents to the ED after having low oxygen saturation at the rehab center. Per [facility] report, the patient went to the nurses station stating he wanted to be sent to the hospital and stated "I feel weird." At that time he was noted to be pale, O2 sat at 82% on RA. He was placed back on 6L of oxygen via his trach mask and given a breathing treatment and his O2 sats improved to 95% however would not stay at an appropriate level. Patient was then sent to [facility] for further evaluation. Patient states he uses 6L of oxygen via trach normally. Patient has also been treated for pneumonia at the rehab center. He denies any fevers, chest pain, cough, abdominal pain, or N/V. He denies syncopal episodes and states he remembers all events that occurred today. CBC/BMP: 07/19/16 0651 07/19/16 0651 Significant Findings Laboratory Tests Test 07/17/16 07/18/16 07/19/16 09:25 04:17 06:51 Blood Gas HCO3 36 mmol/L (22-26) Blood Gas Base Excess 9.8 mmol/L (-2-2) Blood Gas Oxygen Saturation 83 % (90-100) Arterial Blood pH 7.32 (7.380-7.420) Arterial Blood Partial 73 mmHg (38-42) Pressure CO2 Arterial Blood Partial 53 mmHg Pressure O2 (61-120) Blood Gas Hemoglobin 11.6 G/DL (12.0-16.0) White Blood Count 11.8 TH/MM3 (4.0-11.0) Red Blood Count 3.92 MIL/MM3 3.63 MIL/MM3 (4.50-5.90) (4.50-5.90) Hemoglobin 10.6 GM/DL 9.8 GM/DL (13.0-17.0) (13.0-17.0) Hematocrit 33.3 % 30.4 % (39.0-51.0) (39.0-51.0) Mean Corpuscular Hemoglobin 31.9 % Concent (32.0-36.0) Red Cell Distribution Width 24.0 % 24.1 % (11.6-17.2) (11.6-17.2) Sodium Level 134 MEQ/L 129 MEQ/L (136-145) (136-145) Chloride Level 85 MEQ/L 85 MEQ/L (98-107) (98-107) Carbon Dioxide Level 37.5 MEQ/L 35.2 MEQ/L (21.0-32.0) (21.0-32.0) Random Glucose 69 MG/DL 70 MG/DL (74-106) (74-106) Aspartate Amino Transf 93 U/L (15-37) 58 U/L (15-37) (AST/SGOT) Alkaline Phosphatase 135 U/L 130 U/L (45-117) (45-117) Total Protein 5.7 GM/DL 5.3 GM/DL (6.4-8.2) (6.4-8.2) Albumin 2.0 GM/DL 1.8 GM/DL (3.4-5.0) (3.4-5.0) Mean Corpuscular Hemoglobin 26.9 PG (27.0-34.0) Neutrophils (%) (Auto) 74.0 % (16.0-70.0) Neutrophils # (Auto) 8.0 TH/MM3 (1.8-7.7) Neutrophils % (Manual) 79 % (16-70) Neutrophils # (Manual) 9.1 TH/MM3 (1.8-7.7) Myelocytes 1 % (0-0) Stomatocytes 1+ (NORMAL) Potassium Level 2.7 MEQ/L (3.5-5.1) Estimat Glomerular Filtration 88 ML/MIN (>89) Rate Calcium Level 8.3 MG/DL (8.5-10.1) Imaging Last Impressions Chest X-Ray 07/19/16 0600 Signed Impressions: Service Date/Time: Tuesday, July 19, 2016 05:43 - CONCLUSION: Right basilar opacity is present may be due to a combination of consolidation and or pleural effusion not changed and the pulmonary edema is present not present previously. Robert Bhakta MD Chest Tube Insertion 07/17/16 0000 Signed Impressions: Service Date/Time: Sunday, July 17, 2016 11:59 - CONCLUSION: Good reexpansion of the left lung. Minimal pneumothorax and pneumomediastinum remains along the right. There is minimal intraperitoneal air all thought to have dissected from the left. Jose Riley MD FACR Liver Ultrasound 06/03/16 0000 Signed Impressions: Service Date/Time: Friday, June 03, 2016 08:10 - CONCLUSION: 1. There is some sludge in the gallbladder. This can be seen with chronic gallbladder disease. 2. Fatty infiltration of the liver which appears to be enlarged. 3. No mechanical biliary tract obstruction. 4. Splenomegaly. Lázaro Frankel MD Brachial Plexus MRI 06/03/16 0000 Signed Impressions: Service Date/Time: Friday, June 03, 2016 12:42 - CONCLUSION: There is a complex multiloculated soft tissue and cystic mass measuring approximately 5.5 x 6.0 x 7.8 cm involving the subscapularis muscle along the anterior right scapula. The differential considerations include neoplastic disease, infection and hematoma. Recommend a CT scan of the right shoulder to pre-plan for CT-guided aspiration/biopsy of this abnormality. Lázaro Frankel MD Cervical Spine MRI 05/29/16 0000 Signed Impressions: Service Date/Time: Sunday, May 29, 2016 13:51 - CONCLUSION: Limited study but appears normal. Vishnu Woodward MD Brain MRI 05/29/16 0000 Signed Impressions: Service Date/Time: Sunday, May 29, 2016 13:51 - CONCLUSION: 1. Focal chronic ischemic change in the high right frontal parietal convexity stable from previous CT scan. 2. No acute intracranial abnormality. 3. Minimal nonspecific white matter changes. Vishnu Woodward MD Upper Extremity Ultrasound 05/28/16 0000 Signed Impressions: Service Date/Time: Saturday, May 28, 2016 10:16 - CONCLUSION: 1. Negative for deep venous thrombosis. Venous line noted in cephalic, subclavian and internal jugular vein. Horacio Gupta MD Abdomen X-Ray 04/29/16 0000 Signed Impressions: Service Date/Time: Friday, April 29, 2016 07:12 - CONCLUSION: Suspect Dobbhoff tube in the distal stomach. Garcia Lujan MD PE at Discharge CONST: Morbidly obese male, NAD. DERM: No acute changes to erythematous fungal rash on bilateral arms, upper torso. Not spreading, but also not receding. Well-healing scar R shoulder R lat malleolus with 1.5 x 1.5 cm skin break down. Area in bandage- c/d/i. Numerous skin folds 2/2 habitus. Dry, flaking skin on feet. Bruising on abdomen HEENT: Tracheotomy site c/d/i. Poor dentition. MMM CV: Distant heart sounds. RRR. RESP: Anterior lung CTAB. No wheezing. B/l breath sounds. GI: NDNT. MSK: External rotation of RLE and LLE NEURO: CN grossly normal. PSYCH: Appears clean/improved mood. Poor insight. Hospital Course . 31y male with super morbid obesity (BMI 60-69) from [facility], hospitalized 04/24/16-07/19/16 for treatment of acute on chronic respiratory failure after tracheostomy leak. After emergency tracheostomy replacement , patient had respiratory decompensation, requiring placement on a ventilator , as well as treatment for HCAP and yeast UTI. Patient was slowly weaned to BiPAP and transitioned off vent 07/05/15- was stable on 8-10L O2 via T-piece. On 07/17/15, briefly re-intubated after spontaneous R tension pneumothorax which resolved with chest tube. Currently on weaned from vent, on CPAP with stable saturations. T piece trials to commence day of discharge. Of note, presented to hospital on 6L O2 via trach. Hospital course was complicated by treatment for bacteremia, MDRO UTI, cellulitis, fungal dermatitis, weakness RUE secondary to hematoma and C6-C7 neuropathy, chronic nausea, hx afib, CHF, generalized weakness, tension pneumothorax, and R ankle ulcer. Proteus and enterococcus Bacteremia, secondary to PICC infection, has been successfully treated with vancomycin and Zerbaxa, ended 06/18/16 per ID. Milan catheter likely colonized with MDRO at baseline. Hematoma R shoulder nonoperative, s/p I&D, PT working overall strength. Chronic nausea intermittent, likely psychosomatic vs GERD. Xarelto and Cardiazem for Afib. Bumex for CHF. OT for generalized weakness. R ankle ulcer: offload area and wound care. He has been off mechanical ventilation and CPAP since 07/05/15. It was difficult to get the patient off of mechanical ventilation. Since being weaned, he is extremely reluctant to leave hospital. Has exhibited manipulative behavior such as breath holding in an attempt to desaturate to be placed on vent, and rolling/ leaning sideways from chair in attempt to 'threaten" a fall so he can return to bed and not be in the chair. Will reluctantly participate in PT exercises, though many somatic complaints interfere with his PT/OT/OOB to chair. Family practice and critical care in accord we do not think he should go back on mechanical ventilation unless he clinically declines. There also much be strict vigilance for adherence to hospital diet, as family has repeatedly brought in outside food. He is clinically stable to be discharged to SNF with medications and follow up, as below. . Pt Condition on Discharge: Stable Discharge Disposition: Discharge to SNF Discharge Instructions DIET: Follow Instructions for: Heart Healthy Diet (per dietary, 2000 calories, heart healthy, regular, thin liquids, restrict/prohibit outside food/enforce adherence to diet) Speech Therapy-Diet Recommends: Regular Activities you can perform: Weight Bearing as Pineda Follow up Referrals: PCP Follow-up - 1 Week Pulmonology - 1 Week New Medications: Budesonide-Formoterol Inh (Symbicort Inh) 160-4.5 Mcg/Act Aero 2 PUFF INH BID #1 Ref 11 INHALER Bumetanide (Bumetanide) 1 Mg Tab 1 MG PO DAILY #30 Ref 11 TAB Chlorhexidine Gluconate (Mouth) Liq (Chlorhexidine Gluconate (Mouth) Liq) 0.12% Soln 15 ML MT BID@ #300 Ref 11 ML Collagenase (Santyl) 250 Unit/Gm Oin 1 APPLIC TOP DAILY #1 Ref 11 TUBE Diltiazem (Diltiazem) 90 Mg Tab 90 MG PO TID #120 Ref 0 TAB Ferrous Sulfate (Ferrous Sulfate) 325 Mg Tab 325 MG PO DAILY #30 Ref 11 TAB Nystatin Topical (Nystop Topical) 100,000 Unit/Gm Powd 1 APPLIC TOPICAL BID #1 Ref 6 CONTAINER Ondansetron Odt (Ondansetron Odt) 4 Mg Tab 4 MG PO Q6HR PRN NAUSEA OR VOMITING #120 Ref 11 TAB Pantoprazole (Protonix) 20 Mg Tab 20 MG PO BID #60 Ref 11 TAB Potassium Chloride Microencaps (Potassium Chloride Microencaps) 20 Meq Tab 40 MEQ PO Q12H #120 Ref 11 TAB Quetiapine (Seroquel) 100 Mg Tab 100 MG PO HS #30 Ref 11 TAB Sertraline (Zoloft) 100 Mg Tab 200 MG PO DAILY #30 Ref 11 TAB Continued Medications: Allopurinol (Allopurinol) 300 Mg Tab 300 MG PO DAILY Gout #30 Ref 0 TAB Atorvastatin (Atorvastatin) 10 Mg Tab 10 MG PO DAILY Cholesterol Management #30 Ref 0 TAB Fenofibrate (Fenofibrate) 48 Mg Tab 48 MG PO DAILY #30 Ref 0 TAB Levothyroxine (Levothyroxine) 50 Mcg Tab 50 MCG PO DAILY Thyroid #30 Ref 0 TAB Miconazole Topical (Miconazole Topical) 2% Cream 1 APPLIC TOPICAL BID PRN yeast Ref 0 GM Montelukast (Montelukast) 10 Mg Tab 10 MG PO DAILY #30 Ref 0 TAB Rivaroxaban (Xarelto) 20 Mg Tab 20 MG PO daily at 1700 Blood Clot Prevention Ref 0 TAB Zolpidem (Ambien) 5 Mg Tab 5 MG PO HS PRN INSOMNIA Ref 0 TAB Discontinued Medications: Acetaminophen (Acetaminophen) 325 Mg Tab 650 MG PO Q4H PRN pain TAB Albuterol Neb (Albuterol Neb) 2.5 Mg/0.5 Ml Neb 2.5 MG NEB Q4HR Note: The Albuterol Sulfate Inhalation Solution is concentrated and must be diluted. Read complete instructions carefully before using. Breathing Treatment #1 Ref 0 NEBULE Alprazolam (Xanax) 0.5 Mg Tab 0.5 MG PO Q6H PRN ANXIETY Ref 0 TAB Clarithromycin (Clarithromycin) 500 Mg Tab 500 MG PO BID Infection Ref 0 TAB Fluticasone-Salmeterol Inh (Advair Diskus Inh) 250-50 Mcg/Blist Aer 1 PUFF INH BID Rinse mouth after use. #1 Ref 0 INHALER Furosemide (Furosemide) 40 Mg Tab 40 MG PO BID #60 Ref 0 TAB Hydralazine (Hydralazine) 50 Mg Tab 75 MG PO Q8HR Take with a meal PRN HTN Ref 0 TAB Loperamide (Loperamide) 2 Mg Tab 4 MG PO Q8HR One tablet after each loose stool. Not to exceed 8 tablets per day. PRN DIARRHEA Ref 0 TAB Melatonin (Melatonin) 10 Mg Tab 6 MG PO HS PRN SLEEP Ref 0 TAB Metoprolol Tartrate (Metoprolol Tartrate) 50 Mg Tab 50 MG PO Q12HR #60 Ref 0 TAB Potassium Chloride ER (Potassium Chloride ER) 10 Meq Cap 10 MEQ PO BID Electrolyte Replacement #60 Ref 0 CAP Prednisone (Prednisone) 5 Mg Tab 5 MG PO DAILY Ref 0 TAB Holley Baires MD R1 Jul 19, 2016 12:44
[2016-07-19] MEDS ORDERED: AUGM875T PO (12:53)
[2016-07-19] MEDS: cefTRIAXone INJ 2,000 MG in SODIUM CHLORIDE 0.9% INJ 100 ML IV SCH (14:54)
[2016-07-19] MEDS ORDERED: COLL30T TOP (15:52)
[2016-07-19] MEDS: QUEtiapine FUMARATE 100 MG TAB PO SCH (19:43)
[2016-07-23 12:12] LABS: CRITICAL VALUE YES
--- NOTE | 2016-07-24 09:40 | PD.PROCEDR ---
Procedure Note Procedure THIS PROCEDURE NOTE IS INDICATED FOR 05/10/2016 Procedure: Fiberoptic Bronchoscopy Diagnosis: Respiratory failure Indications: Hypoxia, elevated WBC Consent: Obtained Anesthesia: Fentanyl infusion Description of the Procedure: The patient was sedated and mechanically ventilated. The patient was placed on 100% FIO2 and a volume control mode of ventilation. The fiberoptic bronchoscopy was inserted via Shiley tracheostomy. The trachea, right and left mainstem bronchi, and sub-segmental bronchi were evaluated. The endobronchial anatomy was normal. Findings: Benign BAL samples: 2 SENT The patient tolerated the procedure well with no hemodynamic instability or hypoxia. There were no immediate complications noted. At the conclusion of the procedure, the patient was placed back on their pre-procedure ventilatory settings. There was minimal EBL. A chest x-ray has been ordered. I personally performed the procedure. Juana Morgan MD Jul 24, 2016 09:40
--- NOTE | 2016-07-25 05:20 | PD.PROCEDR ---
Procedure Note Procedure Flexible Fiberoptic Bronchoscopy POSTOPERATIVE DIAGNOSIS: - Mild tracheobronchitis , PNA PROCEDURE PERFORMED: - Flexible fiberoptic bronchoscopy diagnostic with: a. Right middle lobe bronchoalveolar lavage. b. Right upper lobe bronchoalveolar lavage. COMPLICATIONS: - None. INDICATION: - The patient with worsening ventilator dependant respiratory failure, VAP PROCEDURE: The patient was brought to the operative suite and placed in the supine position. After satisfactory induction of general endotracheal anesthesia , a flexible Olympus bronchoscope was passed through the endotracheal tube visualizing the distal trachea, oneal, and right and left main stem bronchus with the primary and secondary divisions. No evidence of any endobronchial tumor was noted. We did see some blunting of the oneal. The scope was then withdrawn. Samples include bronchoalveolar lavage of the right upper lobe and right middle lobe and transbronchial biopsies of the right lower lobe. Adin Dobson MD Jul 25, 2016 05:19
== END 2016-07-19 22:35 | DRG 870 ==
LOC: NEPC 12:02 → NEDA 14:20 → HIMN 19:55
PROVIDERS: ADMIT Family Medicine; ATTEND Family Medicine
PROC: 5A1955Z Respiratory Ventilation, Greater than 96 Consecutive Hours (ICD-10-PCS; 2016-04-24)
PROC: 5A09357 Assistance with Respiratory Ventilation, Less than 24 Consecutive Hours, Continuous Positive Airway Pressure (ICD-10-PCS; 2016-04-24)
PROC: 02HV33Z Insertion of Infusion Device into Superior Vena Cava, Percutaneous Approach (ICD-10-PCS; 2016-04-26)
PROC: 0B21XFZ Change Tracheostomy Device in Trachea, External Approach (ICD-10-PCS; principal; 2016-05-02)
PROC: 0BJ08ZZ Inspection of Tracheobronchial Tree, Via Natural or Artificial Opening Endoscopic (ICD-10-PCS; 2016-05-10)
PROC: 0J9D0ZX Drainage of Right Upper Arm Subcutaneous Tissue and Fascia, Open Approach, Diagnostic (ICD-10-PCS; 2016-06-07)
PROC: 30233N1 Transfusion of Nonautologous Red Blood Cells into Peripheral Vein, Percutaneous Approach (ICD-10-PCS; 2016-06-13)
PROC: 0W9B30Z Drainage of Left Pleural Cavity with Drainage Device, Percutaneous Approach (ICD-10-PCS; 2016-07-17)
DX: A41.9 Sepsis, unspecified organism (principal); J96.21 Acute and chronic respiratory failure with hypoxia; G62.81 Critical illness polyneuropathy; J93.0 Spontaneous tension pneumothorax; Z99.11 Dependence on respirator [ventilator] status; J15.1 Pneumonia due to Pseudomonas; I11.0 Hypertensive heart disease with heart failure; J95.03 Malfunction of tracheostomy stoma; J15.6 Pneumonia due to other Gram-negative bacteria; I50.9 Heart failure, unspecified; K31.84 Gastroparesis; J96.22 Acute and chronic respiratory failure with hypercapnia; E87.0 Hyperosmolality and hypernatremia; B37.49 Other urogenital candidiasis; E87.4 Mixed disorder of acid-base balance; E66.2 Morbid (severe) obesity with alveolar hypoventilation; N39.0 Urinary tract infection, site not specified; L03.113 Cellulitis of right upper limb; L03.313 Cellulitis of chest wall; Z68.44 Body mass index [BMI] 60.0-69.9, adult; L02.413 Cutaneous abscess of right upper limb; L03.115 Cellulitis of right lower limb; E44.0 Moderate protein-calorie malnutrition; E87.1 Hypo-osmolality and hyponatremia; F33.2 Major depressive disorder, recurrent severe without psychotic features; L03.116 Cellulitis of left lower limb; T80.211A Bloodstream infection due to central venous catheter, initial encounter; R16.1 Splenomegaly, not elsewhere classified; E87.8 Other disorders of electrolyte and fluid balance, not elsewhere classified; Y95 Nosocomial condition; E03.9 Hypothyroidism, unspecified; F41.9 Anxiety disorder, unspecified; I48.2 Chronic atrial fibrillation; G54.0 Brachial plexus disorders; B96.4 Proteus (mirabilis) (morganii) as the cause of diseases classified elsewhere; E87.6 Hypokalemia; M79.81 Nontraumatic hematoma of soft tissue; B95.2 Enterococcus as the cause of diseases classified elsewhere; F43.21 Adjustment disorder with depressed mood; I48.0 Paroxysmal atrial fibrillation; E78.5 Hyperlipidemia, unspecified; G47.00 Insomnia, unspecified; R19.7 Diarrhea, unspecified; D50.9 Iron deficiency anemia, unspecified; R11.0 Nausea; E83.42 Hypomagnesemia; B36.9 Superficial mycosis, unspecified; K76.0 Fatty (change of) liver, not elsewhere classified; R73.9 Hyperglycemia, unspecified; L89.512 Pressure ulcer of right ankle, stage 2; E87.5 Hyperkalemia; G47.30 Sleep apnea, unspecified; K21.9 Gastro-esophageal reflux disease without esophagitis; N39.498 Other specified urinary incontinence; J44.9 Chronic obstructive pulmonary disease, unspecified; D64.89 Other specified anemias; M1A.9XX0 Chronic gout, unspecified, without tophus (tophi); Z86.711 Personal history of pulmonary embolism; Z79.01 Long term (current) use of anticoagulants; Z75.1 Person awaiting admission to adequate facility elsewhere
CPT/HCPCS: 31624; 32557; 36430; 36569; 36600; 70551; 71010; 72141; 73220; 74000; 76705; 76937; 80048; 80053; 80202; 81001; 82272; 82550; 82552; 82565; 82805; 82948; 83540; 83550; 83605; 83735; 83880; 84100; 84132; 84439; 84484; 85007; 85014; 85018; 85025; 85027; 85610; 85730; 86403; 86850; 86900; 86901; 86920; 87015; 87040; 87070; 87077; 87086; 87102; 87116; 87186; 87205; 87206; 87493; 87641; 88304; 88305; 93005; 93306; 93971; 94002; 94003; 94640; 94664; 94799; 95819; 96365; A7521; A9579; C1729; C9113; J0330; J0461; J0692; J0695; J0696; J0714; J1120; J1325; J1450; J1580; J1642; J1644; J1650; J1815; J1940; J1956; J2250; J2270; J2405; J2543; J2765; J2920; J2930; J3010; J3370; J3475; J3480; J7030; J7040; J7050; J7120; J7512; J7626; P9016; Q0164; S0142